=== PATIENT | female | born 1960 | race Caucasian/White ===

== ENCOUNTER 2016-06-05 11:20 | Emergency (ER) | payer MEDICARE, OTHER ==
[~2016-06-05] VITALS: Ht 167.6 cm; Wt 99.8 kg
[2016-06-05] MEDS ORDERED: RT-ALBUTEROL/IPRATROPIUM 3 ML (DUONEB) VIAL ONE (11:25)
[2016-06-05] MEDS ORDERED: RT-ALBUTEROL SULF 2.5 MG/3 ML PRE-MIX VIAL ONE (11:25)
[2016-06-05] MEDS ORDERED: NS IV 1000 ML 1,000 ML IV ONE (11:36)
[2016-06-05 11:58] LABS: BASOPHILS % (AUTO) 0 % (0-10); EOSINOPHILS # (AUTO) 0.3 10^3/uL (0.0-0.3); EOSINOPHILS % (AUTO) 3 % (0-10); LYMPHOCYTES # (AUTO) 1.9 X 10^3 (1.0-4.0); LYMPHOCYTES % (AUTO) 21 % (12-44); MEAN CORPUSCULAR HEMOGLOBIN 29 PG (25-34); MEAN CORPUSCULAR HGB CONC 32 G/DL (32-36); MEAN CORPUSCULAR VOLUME 90 FL (80-99); MEAN PLATELET VOLUME 10.1 FL (7.4-10.4); MONOCYTES # (AUTO) 0.5 X 10^3 (0.0-1.0); MONOCYTES % (AUTO) 5 % (0-12); NEUTROPHILS # (AUTO) 6.3 X 10^3 (1.8-7.8); NEUTROPHILS % (AUTO) 71 % (42-75); PLATELET COUNT 202 10^3/uL (130-400); RED BLOOD COUNT 4.44 10^6/uL (4.35-5.85); RED CELL DISTRIBUTION WIDTH 14.7 % (10.0-14.5)
--- NOTE | 2016-06-05 11:59 | ED Respiratory ---
General Chief Complaint: Respiratory Problems Stated Complaint: SOA Source: patient Exam Limitations: no limitations History of Present Illness Time seen by provider: 11:35 Initial Comments Here with complaint of one month of cough and shortness of breath that has worsened recently over the last 2 days. No report of fever today. Denies nausea or vomiting. She did get albuterol inhaler from her primary care doctor and that has not helped much. Denies nausea or vomiting. Timing/Duration: week, getting worse Severity: moderate Prior Episodes/Possible Cause: occasional episodes Modifying Factors: Improves With Albuterol Inhaler, Worse With Coughing, Worse With Rest Associated Symptoms: No chest pain/soreness, coughNo facial pain, No fever/ chills, nasal congestion shortness of breathNo sinus infection, No sore throat , wheezing Allergies and Home Medications Allergies Coded Allergies: No Known Drug Allergies (Unverified , 05/10/15) Constitutional: see HPINo chills, No fever EENTM: nose congestion see HPI Respiratory: see HPI cough short of breath wheezing Cardiovascular: no symptoms reported Gastrointestinal: no symptoms reportedNo nausea, No vomiting Genitourinary: no symptoms reported Musculoskeletal: no symptoms reported Skin: no symptoms reported All Other Systems Reviewed Negative Unless Noted: Yes Past Sbabftm-Gvzcve-Ocatry Hx Patient Social History Alcohol Use: Denies Use Recreational Drug Use: No Smoking Status: Never a Smoker Surgeries HX Surgeries: Yes Surgeries: Breast, Gallbladder, Hysterectomy, Orthopedic Respiratory Hx Respiratory Disorders: No Cardiovascular Hx Cardiac Disorders: No Neurological Hx Neurological Disorders: No Genitourinary Hx Genitourinary Disorders: No Gastrointestinal Hx Gastrointestinal Disorders: No Musculoskeletal Hx Musculoskeletal Disorders: Yes Musculoskeletal Disorders: Chronic Back Pain Endocrine Hx Endocrine Disorders: No HEENT HX ENT Disorders: No Cancer Hx Cancer: No Psychosocial Hx Psychiatric Problems: Yes Behavioral Health Disorders: Bipolar Reviewed Nursing Assessment Reviewed/Agree w Nursing PMH: Yes Family Medical History Significant Family History: No Pertinent Family Hx Physical Exam Vital Signs Vital Sign - Last 12Hours 06/05/16 06/05/16 11:32 11:40 Temp 97.8 Pulse 122 Resp 22 B/P 143/93 Pulse Ox 96 O2 Delivery Room Air Capillary Refill : General Appearance: WD/WN mild distress HEENT: PERRL/EOMI (coughing) pharyngeal erythema Neck: full range of motion supple Respiratory: no respiratory distress wheezing (diffusely) Cardiovascular: no murmur tachycardia Gastrointestinal: non tender soft Extremities: non-tender normal inspection Neurologic/Psychiatric: alert oriented x 3 Skin: normal color warm/dry Progress/Results/Core Measures Results/Orders Lab Results Laboratory Tests Test 06/05/16 11:50 Range/Units Alanine Aminotransferase (ALT/SGPT) 20 0-55 U/L Albumin 3.8 3.2-4.5 G/DL Alkaline Phosphatase 101 40-136 U/L Anion Gap 8 5-14 MMOL/L Aspartate Amino Transf (AST/SGOT) 19 5-34 U/L BUN/Creatinine Ratio 16 Basophils # (Auto) 0.0 0.0-0.1 10^3/uL Basophils (%) (Auto) 0 0-10 % Blood Urea Nitrogen 15 7-18 MG/DL C-Reactive Protein High Sensitivity 1.87 H 0.00-0.50 MG/DL Calcium Level 10.1 8.5-10.1 MG/DL Carbon Dioxide Level 22 21-32 MMOL/L Chloride Level 111 H 98-107 MMOL/L Creatinine 0.96 0.60-1.30 MG/DL D-Dimer 0.66 H 0.00-0.49 UG/ML Eosinophils # (Auto) 0.3 0.0-0.3 10^3/uL Eosinophils (%) (Auto) 3 0-10 % Estimat Glomerular Filtration Rate 60 Glucose Level 133 H 70-105 MG/DL Hematocrit 40 35-52 % Hemoglobin 12.9 11.5-16.0 G/DL Lymphocytes # (Auto) 1.9 1.0-4.0 X 10^3 Lymphocytes (%) (Auto) 21 12-44 % Magnesium Level 2.1 1.8-2.4 MG/DL Mean Corpuscular Hemoglobin 29 25-34 PG Mean Corpuscular Hemoglobin Concent 32 32-36 G/DL Mean Corpuscular Volume 90 80-99 FL Mean Platelet Volume 10.1 7.4-10.4 FL Monocytes # (Auto) 0.5 0.0-1.0 X 10^3 Monocytes (%) (Auto) 5 0-12 % Neutrophils # (Auto) 6.3 1.8-7.8 X 10^3 Neutrophils (%) (Auto) 71 42-75 % Platelet Count 202 130-400 10^3/uL Potassium Level 3.9 3.6-5.0 MMOL/L Red Blood Count 4.44 4.35-5.85 10^6/uL Red Cell Distribution Width 14.7 H 10.0-14.5 % Sodium Level 141 135-145 MMOL/L Total Bilirubin 0.2 0.1-1.0 MG/DL Total Protein 7.3 6.4-8.2 G/DL Troponin I < 0.30 <0.30 NG/ML White Blood Count 9.0 4.3-11.0 10^3/uL My Orders Orders-ORIANA GILMAN MD Albuterol Pre-Mix Nebs (Rt) (Proventil P (06/05/16 11:25) Albuterol/Ipra Inhalation Soln (Duoneb I (06/05/16 11:25) Cbc With Automated Diff (06/05/16 11:36) Comprehensive Metabolic Panel (06/05/16 11:36) Hs C Reactive Protein (06/05/16 11:36) Fibrin Degradation Products (06/05/16 11:36) Magnesium (06/05/16 11:36) Troponin I (06/05/16 11:36) Chest 1 View, Ap/Pa Only (06/05/16 11:36) Saline Lock/Iv-Start (06/05/16 11:36) Ns Iv 1000 Ml (Sodium Chloride 0.9%) (06/05/16 11:36) Ekg Tracing (06/05/16 11:36) Monitor-Rhythm Ecg Trace Only (06/05/16 11:36) Ct Angio Chest W (06/05/16 12:48) Iohexol Injection (Omnipaque 350 Mg/Ml 1 (06/05/16 13:00) Ns (Ivpb) (Sodium Chloride 0.9% Ivpb Bag (06/05/16 13:00) Methylprednisolone Sod Succ (Solu-Medrol (06/05/16 14:03) Rt Request For Service (06/05/16 14:38) Medications Given in ED Current Medications Medications Dose Ordered Sig/Kanchan Route Start Time Stop Time Status Last Admin Dose Admin Albuterol Sulfate 2.5 mg STK-MED ONCE .ROUTE 06/05/16 11:25 06/05/16 11:33 DC 06/05/16 11:32 2.5 MG Albuterol/ Ipratropium 3 ml 3 ml STK-MED ONCE .ROUTE 06/05/16 11:25 06/05/16 11:33 DC 06/05/16 11:32 3 ML Iohexol 125 ml ONCE ONCE IV 06/05/16 13:00 06/05/16 13:01 DC 06/05/16 13:10 125 ML Sodium Chloride 100 ml ONCE ONCE IV 06/05/16 13:00 06/05/16 13:01 DC 06/05/16 13:11 80 ML Sodium Chloride 1,000 ml @ 0 mls/hr Q0M ONCE IV 06/05/16 11:36 06/05/16 11:40 DC 06/05/16 12:00 1,000 MLS/HR Vital Signs/I&O Vital Sign - Last 12Hours 06/05/16 06/05/16 11:32 11:40 Temp 97.8 Pulse 122 Resp 22 B/P 143/93 Pulse Ox 96 94 O2 Delivery Room Air Room Air Progress Note : Progress Note Seen and evaluated. IV, labs, chest x-ray, normal saline 1 L bolus, DuoNeb and albuterol treatment ordered. D-dimer elevated. CT angiogram chest ordered. Results below. Patient did not gain much benefit from breathing treatments. Solu-Medrol 125 mg IV initiated. We will continue outpatient therapy with steroids and cough medicine. Patient will get aerobica therapy teaching by RT and will continue that outpatient. This is for mild global cord dysfunction and questionable tracheomalacia on CT. Patient will need further follow-up with PCP. Chart to primary care provider. Discharged home with return precautions. Patient verbalize understanding instructions and agreement with plan. Diagnostic Imaging Diagonstic Imaging: Xray Plain Films/CT/US/NM/MRI: chest Comments NAME: JOSR STEIN [facility] REC#: [id number] PT STATUS: REG ER : 1960 PHYSICIAN: ORIANA GILMAN MD ADMIT DATE: 06/05/16/ER Signed Date of Exam: 06/05/16 CHEST 1 VIEW, AP/PA ONLY INDICATION: Difficulty breathing, cough. FINDINGS: The lungs are clear. The heart and vessels normal. There is no effusion or pneumothorax. IMPRESSION: Unremarkable frontal chest. Dictated by: Dictated on workstation # [id number] Dict: 06/05/16 1219 Trans: 06/05/16 1356 SHRELY [id number] Interpreted by: BROCK MELISSA Electronically signed by:BROCK MELISSA 06/05/16 1358 Reviewed: Reviewed by Me Diagonstic Imaging: CT Plain Films/CT/US/NM/MRI: chest Comments NAME: JOSR STEIN REC#: [id number] PT STATUS: REG ER : 1960 PHYSICIAN: ORIANA GILMAN MD ADMIT DATE: 06/05/16/ER Draft Date of Exam:06/05/16 CT ANGIO CHEST W PROCEDURE: CT angiography of the chest with contrast. TECHNIQUE: Multiple contiguous axial images were obtained through the chest after uneventful bolus administration of intravenous contrast. Reconstructed CTA MIP acquisitions were also performed. INDICATION: Cough. Shortness of breath. FINDINGS: There is respiratory motion artifact seen on this exam and component of beam hardening artifacts from dense incoming contrast through the SVC. There is no definite pulmonary embolism, particularly involving the central pulmonary arteries. Particularly the right upper lobe branches are not well evaluated with overlapping artifacts seen. There is no aortic dissection. The heart size is at the upper limits of normal. There is no pericardial or pleural effusion. The lungs demonstrate motion artifact with no definite consolidation, mass or suspicious nodule seen. There is significant decrease of the AP dimension of the trachea more than 50% of the normal AP dimension on the expiratory phase suggestive of tracheomalacia. Sections in the upper abdomen demonstrate cholecystectomy clips. The osseous structures appear grossly unremarkable. IMPRESSION: 1. There are motion artifacts due to patient's inability to hold her breath for the exam and some beam hardening artifacts from incoming dense contrast in the SVC resulting in limited evaluation particularly of the right upper lobe lobar and segmental branches. The other lobar and main segmental branches and the pulmonary trunk demonstrate no PE. 2. Tracheomalacia. Dictated on workstation # [id number] Dict: 06/05/16 1410 Trans: 06/05/16 1429 YODIT [id number] Interpreted by: SATURNINO THAYER MD Electronically signed by: Departure Impression Impression: Primary Impression: Bronchitis Disposition: 01 HOME, SELF-CARE Condition: Stable Departure-Patient Inst. Decision time for Depature: 14:45 Referrals: SAW SALINAS DO (PCP/Family) Primary Care Physician Patient Instructions: Acute Bronchitis, Adult (DC) Add. Discharge Instructions: All discharge instructions reviewed with patient and/or family. Voiced understanding. Take medications as directed. Follow-up with your Dr. in a few days for recheck. Return for worse pain, fever, vomiting, weakness, breathing problems or other concerns as needed. Use breathing device as instructed several times daily. Scripts Promethazine HCl/Codeine (Prometh-Codein 6.25-10 mg/5 ml)5 Ml Syrup5 Ml PO Q6H # 80 ML Ref 0 Prov:ORIANA GILMAN MD 06/05/16 Prednisone 20 Mg Tab40 Mg PO DAILY #14 TAB Prov:ORIANA GILMAN MD 06/05/16 Copy Copies To 1: SAW SALINAS TIMOTHY D MD Jun 05, 2016 11:59
[2016-06-05 12:18] LABS: ALANINE AMINOTRANSFERASE 20 U/L (0-55); ALBUMIN 3.8 G/DL (3.2-4.5); ANION GAP 8 MMOL/L (5-14); ASPARTATE AMINO TRANSFERASE 19 U/L (5-34); BILIRUBIN,TOTAL 0.2 MG/DL (0.1-1.0); BLOOD UREA NITROGEN 15 MG/DL (7-18); BUN/CREATININE RATIO 16; CALCIUM 10.1 MG/DL (8.5-10.1); CARBON DIOXIDE 22 MMOL/L (21-32); CHLORIDE 111 MMOL/L (98-107); CREATININE SERUM 0.96 MG/DL (0.60-1.30); GFR ESTIMATED 60; GLUCOSE 133 MG/DL (70-105); MAGNESIUM 2.1 MG/DL (1.8-2.4); POTASSIUM 3.9 MMOL/L (3.6-5.0); SODIUM 141 MMOL/L (135-145); TOTAL PROTEIN 7.3 G/DL (6.4-8.2); hs C REACTIVE PROTEIN 1.87 MG/DL (0.00-0.50)
[2016-06-05 12:24] LABS: TROPONIN I < 0.30 NG/ML (<0.30)
--- NOTE | 2016-06-05 12:28 | Diagnostic Imaging Report ---
INDICATION: Difficulty breathing, cough. FINDINGS: The lungs are clear. The heart and vessels normal. There is no effusion or pneumothorax. IMPRESSION: Unremarkable frontal chest. Dictated by: Dictated on workstation # [id number]
[2016-06-05] MEDS ORDERED: IOHEXOL 350 MG/ML 150 ML (OMNIPAQUE 350) VIAL IV ONE (13:00)
[2016-06-05] MEDS ORDERED: NS 100 ML (IVPB) BAG IV ONE (13:00)
[2016-06-05] MEDS ORDERED: methylPREDNISolone 125 MG (Solu-MEDROL) VIAL IV STA (14:03)
--- NOTE | 2016-06-05 14:29 | Diagnostic Imaging Report ---
PROCEDURE: CT angiography of the chest with contrast. TECHNIQUE: Multiple contiguous axial images were obtained through the chest after uneventful bolus administration of intravenous contrast. Reconstructed CTA MIP acquisitions were also performed. INDICATION: Cough. Shortness of breath. FINDINGS: There is respiratory motion artifact seen on this exam and component of beam hardening artifacts from dense incoming contrast through the SVC. There is no definite pulmonary embolism, particularly involving the central pulmonary arteries. Particularly the right upper lobe branches are not well evaluated with overlapping artifacts seen. There is no aortic dissection. The heart size is at the upper limits of normal. There is no pericardial or pleural effusion. The lungs demonstrate motion artifact with no definite consolidation, mass or suspicious nodule seen. There is significant decrease of the AP dimension of the trachea more than 50% of the normal AP dimension on the expiratory phase suggestive of mild tracheomalacia. Sections in the upper abdomen demonstrate cholecystectomy clips. The osseous structures appear grossly unremarkable. IMPRESSION: 1. There are motion artifacts due to patient's inability to hold her breath for the exam and some beam hardening artifacts from incoming dense contrast in the SVC resulting in limited evaluation particularly of the right upper lobe lobar and segmental branches. The other lobar and main segmental branches and the pulmonary trunk demonstrate no PE. 2. Mild tracheomalacia. Dictated by: Dictated on workstation # [id number]
[2016-06-05] MEDS ORDERED: PROM5SYR PO (14:48)
[2016-06-05] MEDS ORDERED: PRD20T PO (14:48)
[2016-06-05 15:13] VITALS: BP 137/93
[2016-07-03] MEDS ORDERED: PRD20T PO (11:10)
[2016-07-03] MEDS ORDERED: AZIT250T5 PO (11:10)
== END 2016-06-05 15:13 | disposition home or self-care (01) ==
LOC: EDUNIT# 11:20 → ER 11:22
DX: J20.9 Acute bronchitis, unspecified (principal); J39.8 Other specified diseases of upper respiratory tract
CPT/HCPCS: 36415; 71010; 71275; 80053; 83735; 84484; 85025; 85379; 86141; 93005; 93041; 94640; 96374

== ENCOUNTER 2016-06-22 10:15 | Emergency (ER) | payer MEDICARE, OTHER ==
[~2016-06-22] VITALS: Ht 162.6 cm; Wt 104.3 kg
[~2016-06-22 10:15] MED LIST: PRD20T PO; PROM5SYR PO
[2016-06-22] MEDS ORDERED: RT-ALBUTEROL/IPRATROPIUM 3 ML (DUONEB) VIAL INH ONE (10:30)
--- NOTE | 2016-06-22 10:43 | ED Respiratory ---
General Chief Complaint: Respiratory Problems Stated Complaint: SOA Source: patient Exam Limitations: no limitations History of Present Illness Time seen by provider: 10:41 Initial Comments The patient is a 55-year-old white female who was here earlier this month (06/05) with similar complaints. At that time she had had one month of symptoms. She continues to have wheezing tightness and shortness of breath. Allergies and Home Medications Allergies Coded Allergies: No Known Drug Allergies (Unverified , 05/10/15) Home Medications Prednisone 20 Mg Tab #14 40 MG PO DAILY Prescribed by: ORIANA GILMAN on 06/05/16 1448 Promethazine HCl/Codeine 5 Ml Syrup #80 5 ML PO Q6H Prescribed by: ORIANA GILMAN on 06/05/16 1448 Constitutional: see HPI EENTM: no symptoms reported Respiratory: see HPI cough dyspnea on exertion short of breath wheezing Cardiovascular: no symptoms reported Gastrointestinal: no symptoms reported Genitourinary: no symptoms reported Musculoskeletal: no symptoms reported Skin: no symptoms reported Psychiatric/Neurological: No Symptoms Reported Hematologic/Lymphatic: No Symptoms Reported Immunological/Allergic: no symptoms reported Past Vepmoer-Rejunc-Sbzwsa Hx Patient Social History Recent Foreign Travel: No Contact w/Someone Who Travel: No Recent Hopitalizations: No Seasonal Allergies Seasonal Allergies: No Surgeries HX Surgeries: Yes Surgeries: Breast, Gallbladder, Hysterectomy, Orthopedic Respiratory Hx Respiratory Disorders: No Cardiovascular Hx Cardiac Disorders: No Cardiac Disorders: Valvular Heart Disease Neurological Hx Neurological Disorders: No Neurological Disorders: Headaches /Migraines Genitourinary Hx Genitourinary Disorders: No Gastrointestinal Hx Gastrointestinal Disorders: No Musculoskeletal Hx Musculoskeletal Disorders: Yes Musculoskeletal Disorders: Chronic Back Pain Endocrine Hx Endocrine Disorders: No HEENT HX ENT Disorders: No Cancer Hx Cancer: No Psychosocial Hx Psychiatric Problems: Yes Behavioral Health Disorders: Bipolar Integumentary HX Skin/Integumentary Disorder: No Blood Transfusions Hx Blood Disorders: No Family Medical History Significant Family History: No Pertinent Family Hx Physical Exam Vital Signs Vital Sign - Last 12Hours 06/22/16 10:36 Pulse Ox 94 O2 Delivery Room Air Capillary Refill : General Appearance: moderate distress Eyes: Bilateral Eye Normal Inspection Respiratory: decreased breath sounds accessory muscle use rhonchi wheezing expiration inspiration Cardiovascular: tachycardia Gastrointestinal: normal bowel sounds non tender soft no organomegaly no pulsatile mass Skin: normal color warm/dry cyanosis cool diaphoresis damp Lymphatic: no adenopathy axilla node tender (R) axilla node tender (L) inguinal node tender (R) inguinal node tender (L) Progress/Results/Core Measures Results/Orders Lab Results Laboratory Tests Test 06/22/16 10:30 Range/Units Alanine Aminotransferase (ALT/SGPT) 25 0-55 U/L Albumin 3.3 3.2-4.5 G/DL Alkaline Phosphatase 85 40-136 U/L Anion Gap 11 5-14 MMOL/L Aspartate Amino Transf (AST/SGOT) 21 5-34 U/L BUN/Creatinine Ratio 18 Basophils # (Auto) 0.0 0.0-0.1 10^3/uL Basophils (%) (Auto) 0 0-10 % Blood Urea Nitrogen 15 7-18 MG/DL Calcium Level 9.5 8.5-10.1 MG/DL Carbon Dioxide Level 20 L 21-32 MMOL/L Chloride Level 113 H 98-107 MMOL/L Creatinine 0.85 0.60-1.30 MG/DL Eosinophils # (Auto) 0.4 H 0.0-0.3 10^3/uL Eosinophils (%) (Auto) 5 0-10 % Estimat Glomerular Filtration Rate > 60 Glucose Level 92 70-105 MG/DL Hematocrit 35 35-52 % Hemoglobin 11.4 L 11.5-16.0 G/DL Lymphocytes # (Auto) 1.7 1.0-4.0 X 10^3 Lymphocytes (%) (Auto) 24 12-44 % Mean Corpuscular Hemoglobin 30 25-34 PG Mean Corpuscular Hemoglobin Concent 33 32-36 G/DL Mean Corpuscular Volume 91 80-99 FL Mean Platelet Volume 10.3 7.4-10.4 FL Monocytes # (Auto) 0.3 0.0-1.0 X 10^3 Monocytes (%) (Auto) 5 0-12 % Neutrophils # (Auto) 4.9 1.8-7.8 X 10^3 Neutrophils (%) (Auto) 67 42-75 % Platelet Count 169 130-400 10^3/uL Potassium Level 3.6 3.6-5.0 MMOL/L Red Blood Count 3.87 L 4.35-5.85 10^6/uL Red Cell Distribution Width 14.7 H 10.0-14.5 % Sodium Level 144 135-145 MMOL/L Total Bilirubin 0.1 0.1-1.0 MG/DL Total Protein 5.9 L 6.4-8.2 G/DL White Blood Count 7.3 4.3-11.0 10^3/uL My Orders Orders-TATYANA SANDERS MD Cbc With Automated Diff (06/22/16 10:20) Comprehensive Metabolic Panel (06/22/16 10:20) Chest 1 View, Ap/Pa Only (06/22/16 10:20) Albuterol/Ipra Inhalation Soln (Duoneb I (06/22/16 10:30) Svn Sm Volume Nebulizer Rt-Rfs (06/22/16 10:20) Methylprednisolone Sod Succ (Solu-Medrol (06/22/16 12:15) Medications Given in ED Current Medications Medications Dose Ordered Sig/Kanchan Route Start Time Stop Time Status Last Admin Dose Admin Albuterol/ Ipratropium 3 ml ONCE ONCE INH 06/22/16 10:30 06/22/16 10:31 DC 06/22/16 10:36 3 ML Methylprednisolone Sodium Succinate 125 mg ONCE ONCE IVP 06/22/16 12:15 06/22/16 12:16 DC 06/22/16 12:12 125 MG Vital Signs/I&O Vital Sign - Last 12Hours 06/22/16 10:36 Pulse Ox 94 O2 Delivery Room Air Departure Impression Impression: Primary Impression: Obstructive airway disease Disposition: 01 HOME, SELF-CARE Condition: Improved Departure-Patient Inst. Decision time for Depature: 12:32 Referrals: [facility] (PCP/Family) Primary Care Physician Patient Instructions: Asthma, Adult (DC) Add. Discharge Instructions: All discharge instructions reviewed with patient and/or family. Voiced understanding. Take prednisone as directed Keep Friday appointment. This is imperative. Scripts Prednisone 20 Mg Tab40 Mg PO DAILY #10 TAB 2 tabs each a.m. Prov:TATYANA SANDERS MD 06/22/16 TATYANA SANDERS MD Jun 22, 2016 10:42
[2016-06-22 10:48] LABS: BASOPHILS % (AUTO) 0 % (0-10); EOSINOPHILS # (AUTO) 0.4 10^3/uL (0.0-0.3); EOSINOPHILS % (AUTO) 5 % (0-10); LYMPHOCYTES # (AUTO) 1.7 X 10^3 (1.0-4.0); LYMPHOCYTES % (AUTO) 24 % (12-44); MEAN CORPUSCULAR HEMOGLOBIN 30 PG (25-34); MEAN CORPUSCULAR HGB CONC 33 G/DL (32-36); MEAN CORPUSCULAR VOLUME 91 FL (80-99); MEAN PLATELET VOLUME 10.3 FL (7.4-10.4); MONOCYTES # (AUTO) 0.3 X 10^3 (0.0-1.0); MONOCYTES % (AUTO) 5 % (0-12); NEUTROPHILS # (AUTO) 4.9 X 10^3 (1.8-7.8); NEUTROPHILS % (AUTO) 67 % (42-75); PLATELET COUNT 169 10^3/uL (130-400); RED BLOOD COUNT 3.87 10^6/uL (4.35-5.85); RED CELL DISTRIBUTION WIDTH 14.7 % (10.0-14.5); WHITE BLOOD COUNT 7.3 10^3/uL (4.3-11.0)
[2016-06-22 11:04] LABS: ALANINE AMINOTRANSFERASE 25 U/L (0-55); ALBUMIN 3.3 G/DL (3.2-4.5); ANION GAP 11 MMOL/L (5-14); ASPARTATE AMINO TRANSFERASE 21 U/L (5-34); BILIRUBIN,TOTAL 0.1 MG/DL (0.1-1.0); BLOOD UREA NITROGEN 15 MG/DL (7-18); BUN/CREATININE RATIO 18; CALCIUM 9.5 MG/DL (8.5-10.1); CARBON DIOXIDE 20 MMOL/L (21-32); CHLORIDE 113 MMOL/L (98-107); CREATININE SERUM 0.85 MG/DL (0.60-1.30); GFR ESTIMATED > 60; GLUCOSE 92 MG/DL (70-105); POTASSIUM 3.6 MMOL/L (3.6-5.0); SODIUM 144 MMOL/L (135-145); TOTAL PROTEIN 5.9 G/DL (6.4-8.2)
--- NOTE | 2016-06-22 11:11 | Diagnostic Imaging Report ---
INDICATION: Cough, short of air Upright portable chest shows normal heart size and vascularity. The lungs are clear. There is no effusion or pneumothorax. IMPRESSION: Normal portable chest. There is no change from 06/05/16. Dictated by: Dictated on workstation # [id number]
[2016-06-22] MEDS ORDERED: methylPREDNISolone 125 MG (Solu-MEDROL) VIAL IVP ONE (12:15)
[2016-06-22] MEDS ORDERED: PRD20T PO (12:36)
[2016-06-22 12:40] VITALS: BP 145/70
[2016-07-03] MEDS ORDERED: AZIT250T5 PO (11:10)
[2016-07-03] MEDS ORDERED: PRD20T PO (11:10)
== END 2016-06-22 12:40 | disposition home or self-care (01) ==
LOC: EDUNIT# 10:15 → ER 10:16
DX: J44.9 Chronic obstructive pulmonary disease, unspecified (principal)
CPT/HCPCS: 36415; 71010; 80053; 85025; 94640; 96374

== ENCOUNTER 2016-07-02 11:16 | Observation (INO) | payer MEDICARE, OTHER ==
[~2016-07-02] VITALS: Ht 167.6 cm; Wt 99.8 kg
[2016-07-02 12:03] LABS: BASOPHILS % (AUTO) 0 % (0-10); EOSINOPHILS # (AUTO) 0.8 10^3/uL (0.0-0.3); EOSINOPHILS % (AUTO) 11 % (0-10); LYMPHOCYTES # (AUTO) 1.5 X 10^3 (1.0-4.0); LYMPHOCYTES % (AUTO) 20 % (12-44); MEAN CORPUSCULAR HEMOGLOBIN 29 PG (25-34); MEAN CORPUSCULAR HGB CONC 32 G/DL (32-36); MEAN CORPUSCULAR VOLUME 90 FL (80-99); MEAN PLATELET VOLUME 11.3 FL (7.4-10.4); MONOCYTES # (AUTO) 0.5 X 10^3 (0.0-1.0); MONOCYTES % (AUTO) 6 % (0-12); NEUTROPHILS # (AUTO) 4.7 X 10^3 (1.8-7.8); NEUTROPHILS % (AUTO) 62 % (42-75); PLATELET COUNT 255 10^3/uL (130-400); RED BLOOD COUNT 4.35 10^6/uL (4.35-5.85); RED CELL DISTRIBUTION WIDTH 14.9 % (10.0-14.5); WHITE BLOOD COUNT 7.6 10^3/uL (4.3-11.0)
[2016-07-02] MEDS ORDERED: ZOLP10TA PO (12:09)
[2016-07-02] MEDS ORDERED: RT-ALBUTEROL SULF 2.5 MG/3 ML PRE-MIX VIAL INH SCH (12:15)
[2016-07-02] MEDS ORDERED: RT-ALBUTEROL/IPRATROPIUM 3 ML (DUONEB) VIAL INH ONE (12:15)
[2016-07-02] MEDS ORDERED: morphine INJ 10 MG/ML 1ML (SYR OR VIAL) IVP ONE (12:15)
[2016-07-02] MEDS ORDERED: methylPREDNISolone 125 MG (Solu-MEDROL) VIAL IVP ONE (12:15)
[2016-07-02 12:22] LABS: ALANINE AMINOTRANSFERASE 23 U/L (0-55); ALBUMIN 3.7 G/DL (3.2-4.5); ANION GAP 7 MMOL/L (5-14); ASPARTATE AMINO TRANSFERASE 27 U/L (5-34); BILIRUBIN,TOTAL 0.2 MG/DL (0.1-1.0); BLOOD UREA NITROGEN 14 MG/DL (7-18); BUN/CREATININE RATIO 17; CALCIUM 9.7 MG/DL (8.5-10.1); CARBON DIOXIDE 22 MMOL/L (21-32); CHLORIDE 112 MMOL/L (98-107); CREATININE SERUM 0.83 MG/DL (0.60-1.30); GLUCOSE 99 MG/DL (70-105); MAGNESIUM 2.4 MG/DL (1.8-2.4); SODIUM 141 MMOL/L (135-145); TOTAL PROTEIN 6.9 G/DL (6.4-8.2)
[2016-07-02 12:23] LABS: POTASSIUM 4.8 MMOL/L (3.6-5.0)
[2016-07-02 12:28] LABS: TROPONIN I < 0.30 NG/ML (<0.30)
[2016-07-02 12:29] LABS: GFR ESTIMATED > 60
--- NOTE | 2016-07-02 12:31 | ED Cough/URI ---
General Chief Complaint: Respiratory Problems Stated Complaint: COUGH/CONGESTION SOA PALPITATIONS FINGERS TINGLING Nursing Triage Note: PT CO OF [facility] HAS BEEN TO ED X3 THIS YEAR. PT WHEEZING Source: patient Exam Limitations: no limitations History of Present Illness Time seen by provider: 12:00 Initial Comments To ER with reports of wheezing, cough that is nonproductive and shortness of breath as well as palpitations and tingling in her anger tips bilaterally. The symptoms began this morning. She does not have COPD. She is recently been treated for bronchitis and was on steroids which she finished one week ago. She is a lifelong nonsmoker. O2 saturation is 93% on room air on arrival Timing/Duration: this morning, getting worse Severity/Quality: dry cough Prior Episodes/Possible Cause: occasional episodes Associated Symptoms: denies symptoms Allergies and Home Medications Allergies Coded Allergies: No Known Drug Allergies (Unverified , 05/10/15) Home Medications Albuterol Sulfate 2.5 Mg/0.5 Ml Vial.neb #25 2.5 MG IH Q4H PRN PRN SHORTNESS OF BREATH Prescribed by: KANDI ARCHER on 07/02/16 1328 Prednisone 20 Mg Tab #14 40 MG PO DAILY Prescribed by: ORIANA GILMAN on 06/05/16 1448 Prednisone 20 Mg Tab #10 40 MG PO DAILY 2 tabs each a.m. Prescribed by: TATYANA SANDERS on 06/22/16 1236 Prednisone 5 Mg Tablet #78 60 MG PO UD 60 mg on day 1 then reduced by one tablet daily until done Prescribed by: KANDI ARCHER on 07/02/16 1233 Promethazine HCl/Codeine 5 Ml Syrup #80 5 ML PO Q6H Prescribed by: ORIANA GILMAN on 06/05/16 1448 Zolpidem Tartrate 10 Mg Tablet 10 MG PO HS (Reported) Constitutional: see HPI EENTM: see HPI Respiratory: see HPI cough Cardiovascular: no symptoms reported Genitourinary: no symptoms reported Musculoskeletal: no symptoms reported Skin: no symptoms reported Psychiatric/Neurological: No Symptoms Reported Past Vyqzfly-Czvxqc-Yemxxg Hx Patient Social History Recent Foreign Travel: No Contact w/Someone Who Travel: No Recent Infectious Disease Expo: No Recent Hopitalizations: No Seasonal Allergies Seasonal Allergies: No Surgeries HX Surgeries: Yes Surgeries: Breast, Gallbladder, Hysterectomy, Orthopedic Respiratory Hx Respiratory Disorders: No Cardiovascular Hx Cardiac Disorders: No Cardiac Disorders: Valvular Heart Disease Neurological Hx Neurological Disorders: No Neurological Disorders: Headaches /Migraines Genitourinary Hx Genitourinary Disorders: No Gastrointestinal Hx Gastrointestinal Disorders: No Musculoskeletal Hx Musculoskeletal Disorders: Yes Musculoskeletal Disorders: Chronic Back Pain Endocrine Hx Endocrine Disorders: No HEENT HX ENT Disorders: No Cancer Hx Cancer: No Psychosocial Hx Psychiatric Problems: Yes Behavioral Health Disorders: Bipolar Integumentary HX Skin/Integumentary Disorder: No Blood Transfusions Hx Blood Disorders: No Family Medical History Significant Family History: No Pertinent Family Hx Physical Exam Vital Signs Vital Sign - Last 12Hours 07/02/16 11:35 Temp 97.8 Pulse 97 Resp 24 B/P 115/87 Pulse Ox 93 O2 Delivery Room Air Capillary Refill : Less Than 3 Seconds General Appearance: WD/WN no apparent distress HEENT: PERRL/EOMI normal ENT inspection Neck: non-tender full range of motion Respiratory: no respiratory distress no accessory muscle use decreased breath sounds wheezing Cardiovascular: regular rate, rhythm no murmur Gastrointestinal: normal bowel sounds non tender soft Extremities: normal range of motion non-tender Neurologic/Psychiatric: alert normal mood/affect oriented x 3 Skin: normal color warm/dry Progress/Results/Core Measures Results/Orders Lab Results Laboratory Tests Test 07/02/16 11:48 07/02/16 13:42 07/02/16 14:31 Range/Units Alanine Aminotransferase (ALT/SGPT) 23 0-55 U/L Albumin 3.7 3.2-4.5 G/DL Alkaline Phosphatase 85 40-136 U/L Anion Gap 7 5-14 MMOL/L Aspartate Amino Transf (AST/SGOT) 27 5-34 U/L BUN/Creatinine Ratio 17 Basophils # (Auto) 0.0 0.0-0.1 10^3/uL Basophils (%) (Auto) 0 0-10 % Blood Urea Nitrogen 14 7-18 MG/DL Calcium Level 9.7 8.5-10.1 MG/DL Carbon Dioxide Level 22 21-32 MMOL/L Chloride Level 112 H 98-107 MMOL/L Creatinine 0.83 0.60-1.30 MG/DL Eosinophils # (Auto) 0.8 H 0.0-0.3 10^3/uL Eosinophils (%) (Auto) 11 H 0-10 % Estimat Glomerular Filtration Rate > 60 Glucose Level 99 70-105 MG/DL Hematocrit 39 35-52 % Hemoglobin 12.6 11.5-16.0 G/DL Lymphocytes # (Auto) 1.5 1.0-4.0 X 10^3 Lymphocytes (%) (Auto) 20 12-44 % Magnesium Level 2.4 1.8-2.4 MG/DL Mean Corpuscular Hemoglobin 29 25-34 PG Mean Corpuscular Hemoglobin Concent 32 32-36 G/DL Mean Corpuscular Volume 90 80-99 FL Mean Platelet Volume 11.3 H 7.4-10.4 FL Monocytes # (Auto) 0.5 0.0-1.0 X 10^3 Monocytes (%) (Auto) 6 0-12 % Neutrophils # (Auto) 4.7 1.8-7.8 X 10^3 Neutrophils (%) (Auto) 62 42-75 % Platelet Count 255 130-400 10^3/uL Potassium Level 4.8 3.6-5.0 MMOL/L Red Blood Count 4.35 4.35-5.85 10^6/uL Red Cell Distribution Width 14.9 H 10.0-14.5 % Sodium Level 141 135-145 MMOL/L Total Bilirubin 0.2 0.1-1.0 MG/DL Total Protein 6.9 6.4-8.2 G/DL Troponin I < 0.30 <0.30 NG/ML White Blood Count 7.6 4.3-11.0 10^3/uL Beto Test YES-POS Arterial Blood Base Excess -3.6 L -2.5-2.5 MMOL/L Arterial Blood HCO3 22 L 23-27 MMOL/L Arterial Blood Oxygen Saturation 95 94-100 % Arterial Blood Partial Pressure CO2 44 35-45 MMHG Arterial Blood Partial Pressure O2 73 L 79-93 MMHG Arterial Blood Total CO2 23.8 21.0-31.0 MMOL/L Arterial Blood pH 7.32 *L 7.37-7.43 Blood Gas Inspired Oxygen ROOM AIR Blood Gas Patient Temperature 98.3 Blood Gas Puncture Site LT RADIAL Blood Gas Ventilator Setting NO B-Type Natriuretic Peptide < 10.0 <100.0 PG/ML D-Dimer 0.52 H 0.00-0.49 UG/ML My Orders Orders-KANDI ARCHER SKIVER HAND Cbc With Automated Diff (07/02/16 11:57) Saline Lock/Iv-Start (07/02/16 11:57) Chest Pa/Lat (2 View) (07/02/16 11:57) Troponin I (07/02/16 11:57) Ekg Tracing (07/02/16 11:57) Comprehensive Metabolic Panel (07/02/16 11:57) Magnesium (07/02/16 11:57) Methylprednisolone Sod Succ (Solu-Medrol (07/02/16 12:15) Albuterol/Ipra Inhalation Soln (Duoneb I (07/02/16 12:15) Albuterol Pre-Mix Nebs (Rt) (Proventil P (07/02/16 12:15) Svn Sm Volume Nebulizer Rt-Rfs (07/02/16 12:02) Svn Sm Volume Nebulizer Rt-Rfs (07/02/16 12:02) Morphine Injection (Morphine Injection (07/02/16 12:15) Influenza A And B Antigens (07/02/16 13:42) Arterial Blood Gas (07/02/16 13:42) BNP (07/02/16 13:44) Fibrin Degradation Products (07/02/16 13:44) Ct Angio Chest W (07/02/16 13:49) Iohexol Injection (Omnipaque 350 Mg/Ml 1 (07/02/16 14:00) Ns (Ivpb) (Sodium Chloride 0.9% Ivpb Bag (07/02/16 14:00) Medications Given in ED Current Medications Medications Dose Ordered Sig/Kanchan Route Start Time Stop Time Status Last Admin Dose Admin Albuterol/ Ipratropium 3 ml ONCE ONCE INH 07/02/16 12:15 07/02/16 12:16 DC 07/02/16 12:22 3 ML Iohexol 125 ml ONCE ONCE IV 07/02/16 14:00 07/02/16 14:14 DC 07/02/16 14:38 125 ML Methylprednisolone Sodium Succinate 125 mg ONCE ONCE IVP 07/02/16 12:15 07/02/16 12:16 DC 07/02/16 12:24 125 MG Morphine Sulfate 2-4mg IV x1 PRN cough ONCE ONCE IVP 07/02/16 12:15 07/02/16 12:16 DC 07/02/16 12:24 4 MG Sodium Chloride 100 ml ONCE ONCE IV 07/02/16 14:00 07/02/16 14:14 DC 07/02/16 14:38 80 ML Vital Signs/I&O Vital Sign - Last 12Hours 07/02/16 07/02/16 07/02/16 11:35 12:26 12:30 Temp 97.8 Pulse 97 Resp 24 B/P 115/87 Pulse Ox 93 93 95 O2 Delivery Room Air Room Air Blood Pressure Mean: 96 Diagnostic Imaging Diagonstic Imaging: Xray Plain Films/CT/US/NM/MRI: chest Comments NAME: JOSR STEIN [facility] REC#: [id number] PT STATUS: REG ER : 1960 PHYSICIAN: KANDI ARCHER APRN ADMIT DATE: 07/02/16/ER Draft Date of Exam:07/02/16 CHEST PA/LAT (2 VIEW) INDICATION: Shortness of breath and wheezing. PA and lateral chest obtained at 12:24 p.m. and compared to 06/22/2016. FINDINGS: Heart and mediastinal silhouette are normal in appearance. The lungs are clear. There is no pneumothorax or pleural fluid. IMPRESSION: Negative chest. Dictated on workstation # [id number] Dict: 07/02/16 1217 Trans: 07/02/16 1228 KB [id number] Interpreted by: GABE ROMANO MD Electronically signed by: Departure Communication Time/Spoke to Admitting Phy: 15:48 Communication I discussed the case with Dr. Newton. We will admit the patient for supple oxygen, IV steroids and oral antibiotics. Progress Notes 1318-She remains wheezy after an hour long breathing treatment though it is improved slightly. Oxygen saturation however is now at 89% on room air. Pt does not have home O2 or home nebulizer. Impression Impression: Primary Impression: Bronchitis Additional Impression: Wheezing Disposition: ADMITTED INPATIENT Condition: Stable Decision to Admit Reason: Admit from ER (General) Decision to Admit/Date: Jul 02, 2016 Time/Decision to Admit Time: 13:35 Departure-Patient Inst. Decision time for Depature: 12:31 Referrals: [facility] (PCP/Family) Primary Care Physician Patient Instructions: NO INSTRUCTIONS GIVEN Add. Discharge Instructions: 1. You to follow-up with your primary care physician to schedule a pulmonary function test 2. Steroids as directed 3. All discharge instructions reviewed with patient and/or family. Voiced understanding. Scripts Albuterol Sulfate 2.5 Mg/0.5 Ml Vial.neb2.5 Mg IH Q4H PRN SHORTNESS OF BREATH # 25 EACH Prov:KANDI ARCHER APRN 07/02/16 Prednisone 5 Mg [id number] Mg PO UD #78 TAB 60 mg on day 1 then reduced by one tablet daily until done Prov:KANDI ARCHER APRN 07/02/16 Copy Copies To 1: SAW SALINAS PETER J APRN Jul 02, 2016 12:31
[2016-07-02] MEDS ORDERED: PRED5TAB PO (12:33)
[2016-07-02] MEDS ORDERED: ALB0.5V IH (13:28)
[2016-07-02 13:48] LABS: ABG BASE EXCESS -3.6 MMOL/L (-2.5-2.5); ABG HCO3 22 MMOL/L (23-27); ABG OXYGEN SATURATION 95 % (94-100); ABG PCO2 44 MMHG (35-45); ABG PO2 73 MMHG (79-93); ABG TCO2 23.8 MMOL/L (21.0-31.0)
[2016-07-02 13:49] LABS: ABG PH 7.32 (7.37-7.43); ALLENS TEST YES-POS; PATIENT TEMP 98.3
[2016-07-02] MEDS ORDERED: IOHEXOL 350 MG/ML 150 ML (OMNIPAQUE 350) VIAL IV ONE (14:00)
[2016-07-02] MEDS ORDERED: NS 100 ML (IVPB) BAG IV ONE (14:00)
--- NOTE | 2016-07-02 15:34 | Diagnostic Imaging Report ---
PROCEDURE: CT angiography of the chest with contrast. TECHNIQUE: Multiple contiguous axial images were obtained through the chest after uneventful bolus administration of intravenous contrast. Reconstructed CTA MIP acquisitions were also performed. INDICATION: Wheezing and cough. 75 mL of Omnipaque-350 is administered intravenously. FINDINGS: There is satisfactory opacification of the pulmonary arteries with no filling defects to suggest pulmonary embolism. The thoracic aorta is normal in caliber. There is no mediastinal or hilar lymphadenopathy seen. No mediastinal mass. The heart size is at the upper limits of normal. The lungs demonstrate minimal atelectatic changes in the dependent areas of the lungs without significant consolidation or lung mass. No pericardial or pleural effusion. Cholecystectomy clips are seen with no significant abnormality noted in the visualized sections of the abdomen. The osseous structures demonstrate mild degenerative changes. IMPRESSION: No evidence of pulmonary embolism or aortic dissection. Dictated by: Dictated on workstation # [id number]
[2016-07-02] MEDS ORDERED: AZITHROMYCIN 250 MG TAB (ZITHROMAX) PO NR (16:56)
[2016-07-02] MEDS ORDERED: CATHETER FLUSH 10 ML SYR IV PRN (17:00)
[2016-07-02] MEDS ORDERED: PROMETHAZINE/ CODEINE SYRUP 5 ML UDC PO PRN (17:00)
[2016-07-02] MEDS: IBUPROFEN 600 MG (MOTRIN) TAB PO PRN (18:08)
[2016-07-02 19:56] VITALS: BP 124/62
[2016-07-02 20:19] VITALS: BP 124/62
[2016-07-02] MEDS: methylPREDNISolone 125 MG (Solu-MEDROL) VIAL IV SCH (20:24)
[2016-07-02] MEDS ORDERED: RT-ALBUTEROL SULF 2.5 MG/3 ML PRE-MIX VIAL INH PRN (20:45)
[2016-07-02] MEDS: CATHETER FLUSH 10 ML SYR IV SCH (22:16)
[2016-07-03] VITALS: BP 117/55
[2016-07-03] MEDS: methylPREDNISolone 125 MG (Solu-MEDROL) VIAL IV SCH (03:40)
[2016-07-03 04:00] VITALS: BP 118/60
[2016-07-03] MEDS: CATHETER FLUSH 10 ML SYR IV SCH (06:40)
[2016-07-03] MEDS: IBUPROFEN 600 MG (MOTRIN) TAB PO PRN (07:49)
[2016-07-03] MEDS ORDERED: ZOLP5TAB7 PO (08:06)
[2016-07-03] MEDS ORDERED: RT-ALBUINH INH (08:06)
[2016-07-03 08:19] VITALS: BP 131/63
[2016-07-03] MEDS ORDERED: CHOL20003 PO (08:19)
[2016-07-03] MEDS ORDERED: BUPR150T14 PO (08:19)
[2016-07-03] MEDS ORDERED: NF-ESOM40C PO (08:19)
[2016-07-03] MEDS ORDERED: ESTR0.9T PO (08:19)
[2016-07-03] MEDS ORDERED: OMEG-160 PO (08:19)
[2016-07-03] MEDS ORDERED: ALPR0.5T7 PO (08:19)
[2016-07-03] MEDS ORDERED: TOPI100T11 PO (08:19)
[2016-07-03] MEDS ORDERED: DULO60CA58 PO (08:19)
[2016-07-03] MEDS ORDERED: ARIP15TA9 PO (08:19)
[2016-07-03] MEDS ORDERED: LOXA10CA PO (08:19)
[2016-07-03] MEDS ORDERED: CALC-654 PO (08:19)
[2016-07-03] MEDS ORDERED: MULT1TAB60 PO (08:19)
[2016-07-03] MEDS ORDERED: LINA145C PO (08:19)
[2016-07-03] MEDS ORDERED: DONE10TA12 PO (08:19)
[2016-07-03] MEDS ORDERED: ASPI-983 PO (08:19)
[2016-07-03] MEDS ORDERED: BENZ1TAB6 PO (08:19)
[2016-07-03] MEDS ORDERED: PRD20T PO (11:10)
[2016-07-03] MEDS ORDERED: AZIT250T5 PO (11:10)
--- NOTE | 2016-07-03 11:14 | Discharge Instructions ---
Discharge [facility] Discharge Medications New, Converted or Re-Newed RX: Transmitted to Pharmacy New Medications: Prednisone (Prednisone) 20 Mg Tab 20 MG PO DAILY Take 3 tabs(60mg)daily,decrease by 1/2 tab(10mg)every other day. #22 TAB Azithromycin (Azithromycin) 250 Mg Tablet 250 MG PO DAILY #5 TAB Continued Medications: Albuterol Sulfate (Proventil Hfa) 6.7 Gm Hfa.aer.ad 1 PUFF INH EVERY 4-6 HOURS PRN SHORTNESS OF BREATH INHALER Alprazolam (Alprazolam) 0.5 Mg Tablet 0.5 MG PO TID PRN ANXIETY TAB Aripiprazole (Aripiprazole) 15 Mg Tablet 15 MG PO BID TAB Aspirin (Aspirin EC) 81 Mg Tablet.dr 81 MG PO DAILY TAB Benztropine Mesylate (Benztropine Mesylate) 1 Mg Tablet 1 MG PO HS TAB Bupropion HCl (Bupropion HCl Sr) 150 Mg Tablet.er 150 MG PO HS TAB Calcium Carbonate/Vitamin D3 (Calcium 500 + D Tablet) 1 Each Tablet 1 TAB PO HS TAB Cholecalciferol (Vitamin D3) (Vitamin D3) 2,000 Unit Capsule 2000 UNIT PO HS CAP Donepezil HCl (Aricept) 10 Mg Tablet 10 MG PO DAILY TAB Duloxetine HCl (Duloxetine HCl) 60 Mg Capsule.dr 60 MG PO HS CAP Esomeprazole Magnesium (Nexium) 40 Mg Cap 40 MG PO DAILY CAP Estrogens, Conjugated (Premarin) 0.9 Mg Tablet 0.9 MG PO DAILY TAB Linaclotide (Linzess) 145 Mcg Capsule 145 MCG PO DAILY CAP Loxapine Succinate (Loxapine) 10 Mg Capsule 10 MG PO BID CAP Multivitamin (Chewable-Santo) 1 Each Tab.chew 2 TAB.CHEW PO HS TAB Austin-3/Dha/Epa/Fish Oil (Fish Oil 1,000 mg Softgel) 1 Each Capsule 2000 MG PO HS CAP Topiramate (Topiramate) 100 Mg Tablet 200 MG PO BID TAB Zolpidem Tartrate (Zolpidem Tartrate) 5 Mg Tablet 5 MG PO HS TAB Patient Instructions Goal/Follow Up Appt: You have a hospital follow up appointment with Reny on Jul 09 @ 120pm Patient Instructions: - Make sure to complete your azithromycin which is an antibiotic - Make sure to complete you prednisone taper - For the next couple days take your albuterol inhaler prior to laying down to try and sleep. This should help your cough Return to The Hospital For: Shortness of breath Chest pain Unable to tolerate medications Activity & Diet Discharge Diet: Cardiac Diet Activity as Tolerated: Yes Copy Copies To 1: [facility] RAMAKRISHNA Lei MD Jul 03, 2016 11:14
[2016-07-03] MEDS ORDERED: ALPRAZolam 0.5 MG (XANAX) TAB PO PRN (11:15)
--- NOTE | 2016-07-03 11:21 | Short Stay Summary ---
HPI History of Present Illness: 55 yo F that presents to ER with wheezing and increasing shortness of breath. Since the beginning of June she has been treated with steroids 3 times for bronchitis. Patient states that it improves for about 5-7 days then returns. She denies any history of COPD but does have a remote h/o tobacco use. Patient states that it has been a dry cough. Denies any fever or chills. This episode has been getting worse over the last 2-3 days. Upon arrival she also had some tingling in her fingers and mild chest discomfort that would get worse when she was coughing. No h/o heart Dz. Source: patient Exam Limitations: no limitations Date seen by provider: Jul 03, 2016 Attending Physician Ramakrishna Newton MD PCP [facility] Date of Admission Jul 02, 2016 at 15:44 Home Medications Home Medications Reviewed patient Home Medication Reconciliation Form Allergies Coded Allergies: No Known Drug Allergies (Unverified , 05/10/15) NNA-Wenfbi-Lfzlsp Hx Patient Social History Living Status: Lives with and son Alcohol Use: Denies Use Recreational Drug Use: No Smoking Status: Never a Smoker Recent Foreign Travel: No Contact w/other who traveled: No Recent Hopitalizations: No Recent Infectious Disease Expo: No Physical Abuse Screen: No Sexual Abuse: No Immunizations Up To Date Date of Pneumonia Vaccine: Apr 03, 2015 Date of Influenza Vaccine: Mar 05, 2016 Family Medical History Significant Family History: No Pertinent Family Hx Family History: Alzheimer's disease Arthritis Asthma Colon cancer Diabetes mellitus Myocardial infarction Psychosocial problem Respiratory disorder Visual disorder Review of Systems ([facility]) Constitutional: no symptoms reportedNo chills, No fever, No weakness EENTM: nose congestion Respiratory: cough dyspnea on exertionNo hemoptysis, No orthopnea, short of breath wheezing Cardiovascular: no symptoms reportedNo chest pain, No edema, No palpitations Gastrointestinal: no symptoms reportedNo abdominal pain, No constipation, No diarrhea, No nausea, No vomiting Genitourinary: no symptoms reportedNo dysuria, No frequency, No hematuria : No Musculoskeletal: no symptoms reportedNo joint swelling, No muscle pain Skin: no symptoms reportedNo rash Psychiatric/Neurological: Anxiety (with being in the hospital) Reviewed Test Results Reviewed Test Results Lab Laboratory Tests Test 07/02/16 11:48 07/02/16 13:42 07/02/16 14:31 Range/Units Alanine Aminotransferase (ALT/SGPT) 23 0-55 U/L Albumin 3.7 3.2-4.5 G/DL Alkaline Phosphatase 85 40-136 U/L Anion Gap 7 5-14 MMOL/L Aspartate Amino Transf (AST/SGOT) 27 5-34 U/L BUN/Creatinine Ratio 17 Basophils # (Auto) 0.0 0.0-0.1 10^3/uL Basophils (%) (Auto) 0 0-10 % Blood Urea Nitrogen 14 7-18 MG/DL Calcium Level 9.7 8.5-10.1 MG/DL Carbon Dioxide Level 22 21-32 MMOL/L Chloride Level 112 H 98-107 MMOL/L Creatinine 0.83 0.60-1.30 MG/DL Eosinophils # (Auto) 0.8 H 0.0-0.3 10^3/uL Eosinophils (%) (Auto) 11 H 0-10 % Estimat Glomerular Filtration Rate > 60 Glucose Level 99 70-105 MG/DL Hematocrit 39 35-52 % Hemoglobin 12.6 11.5-16.0 G/DL Lymphocytes # (Auto) 1.5 1.0-4.0 X 10^3 Lymphocytes (%) (Auto) 20 12-44 % Magnesium Level 2.4 1.8-2.4 MG/DL Mean Corpuscular Hemoglobin 29 25-34 PG Mean Corpuscular Hemoglobin Concent 32 32-36 G/DL Mean Corpuscular Volume 90 80-99 FL Mean Platelet Volume 11.3 H 7.4-10.4 FL Monocytes # (Auto) 0.5 0.0-1.0 X 10^3 Monocytes (%) (Auto) 6 0-12 % Neutrophils # (Auto) 4.7 1.8-7.8 X 10^3 Neutrophils (%) (Auto) 62 42-75 % Platelet Count 255 130-400 10^3/uL Potassium Level 4.8 3.6-5.0 MMOL/L Red Blood Count 4.35 4.35-5.85 10^6/uL Red Cell Distribution Width 14.9 H 10.0-14.5 % Sodium Level 141 135-145 MMOL/L Total Bilirubin 0.2 0.1-1.0 MG/DL Total Protein 6.9 6.4-8.2 G/DL Troponin I < 0.30 <0.30 NG/ML White Blood Count 7.6 4.3-11.0 10^3/uL Beto Test YES-POS Arterial Blood Base Excess -3.6 L -2.5-2.5 MMOL/L Arterial Blood HCO3 22 L 23-27 MMOL/L Arterial Blood Oxygen Saturation 95 94-100 % Arterial Blood Partial Pressure CO2 44 35-45 MMHG Arterial Blood Partial Pressure O2 73 L 79-93 MMHG Arterial Blood Total CO2 23.8 21.0-31.0 MMOL/L Arterial Blood pH 7.32 *L 7.37-7.43 Blood Gas Inspired Oxygen ROOM AIR Blood Gas Patient Temperature 98.3 Blood Gas Puncture Site LT RADIAL Blood Gas Ventilator Setting NO B-Type Natriuretic Peptide < 10.0 <100.0 PG/ML D-Dimer 0.52 H 0.00-0.49 UG/ML Radiology Date of Exam: 07/02/16 CT ANGIO CHEST W PROCEDURE: CT angiography of the chest with contrast. TECHNIQUE: Multiple contiguous axial images were obtained through the chest after uneventful bolus administration of intravenous contrast. Reconstructed CTA MIP acquisitions were also performed. INDICATION: Wheezing and cough. 75 mL of Omnipaque-350 is administered intravenously. FINDINGS: There is satisfactory opacification of the pulmonary arteries with no filling defects to suggest pulmonary embolism. The thoracic aorta is normal in caliber. There is no mediastinal or hilar lymphadenopathy seen. No mediastinal mass. The heart size is at the upper limits of normal. The lungs demonstrate minimal atelectatic changes in the dependent areas of the lungs without significant consolidation or lung mass. No pericardial or pleural effusion. Cholecystectomy clips are seen with no significant abnormality noted in the visualized sections of the abdomen. The osseous structures demonstrate mild degenerative changes. IMPRESSION: No evidence of pulmonary embolism or aortic dissection. Physical Exam-([facility]) Physical Exam Vital Signs VS - Last 72 Hours, by Label 07/02/16 07/02/16 07/02/16 07/02/16 11:35 12:26 12:30 15:55 Temp 97.8 Pulse 97 109 Resp 24 18 B/P 115/87 Pulse Ox 93 93 95 95 O2 Delivery Room Air Room Air 07/02/16 07/02/16 07/02/16 07/02/16 18:25 20:16 20:16 20:19 Temp 98.6 Pulse 113 Resp 18 B/P 124/62 Pulse Ox 96 93 93 95 O2 Delivery Room Air Room Air 07/02/16 07/03/16 07/03/16 07/03/16 21:00 00:00 04:00 07:32 Temp 98.6 98.3 Pulse 107 107 Resp 20 22 B/P 117/55 118/60 Pulse Ox 94 94 94 O2 Delivery Room Air Room Air Room Air 07/03/16 07/03/16 08:19 08:45 Temp 98.5 Pulse 98 Resp 16 B/P 131/63 Pulse Ox 90 O2 Delivery Room Air Room Air Capillary Refill : Less Than 3 Seconds General Appearance: WD/WN no apparent distress Eyes: Bilateral Eye EOMI, Bilateral Eye Normal Inspection, Bilateral Eye PERRL Neck: non-tender full range of motion supple normal inspection Respiratory: chest non-tender lungs clear normal breath sounds no respiratory distress no accessory muscle use Cardiovascular: regular rate, rhythm no edema no gallop no JVD no murmur Gastrointestinal: normal bowel sounds non tender soft no organomegaly no pulsatile mass Back: normal inspection no CVA tenderness no vertebral tenderness Extremities: normal range of motion non-tender normal inspection no pedal edema no calf tenderness normal capillary refill 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 nml as tested no motor/sensory deficits alert normal mood/affect oriented x 3 Skin: normal color warm/dry Short Stay Diagnosis Discharge Diagnosis-Short Stay Admission Diagnosis Obstructive airway disease with hypoxia Mood d/o Cough Final Discharge Diagnosis See above Conclusion Plan 55 yo F that was admitted with hypoxia Obstructive airway disease with hypoxia - Started on breathing treatment scheduled and PRN - IV steroids, now transitioned to PO steroids home with taper - Complete Z-pack - Make sure to keep your appointment with the bag bleacher - Now > 92% on RA Cough - Patient has tessalon at home, ok to continue Mood D/o - Continued patient's home medications Home today with close follow up with Reny Copy Copies To 1: [facility] RAMAKRISHNA Lei MD Jul 03, 2016 11:21
[2016-07-03] MEDS ORDERED: DULoxetine 30 MG (CYMBALTA) CAP PO SCH (11:45)
[2016-07-03] MEDS ORDERED: AZITHROMYCIN 250 MG TAB (ZITHROMAX) PO SCH (17:00)
[2016-07-03] MEDS ORDERED: ARIPIPRAZOLE 15 MG (ABILIFY) TAB PO SCH (21:00)
[2016-07-03] MEDS ORDERED: toPIRamate 100 MG (TOPAMAX) TAB PO SCH (21:00)
[2016-07-03] MEDS ORDERED: buPROPion SR 150 MG (WELLBUTRIN SR) TAB PO SCH (21:00)
[2016-07-03] MEDS ORDERED: BENZTROPINE MESYLATE 1 MG (COGENTIN) TAB PO SCH (21:00)
[2016-07-04] MEDS ORDERED: PANTOPRAZOLE 40 MG (PROTONIX) TAB PO SCH (07:00)
[2016-07-04] MEDS ORDERED: ASPIRIN E.C. 81 MG (ECOTRIN) TAB PO SCH (09:00)
[2016-07-04] MEDS ORDERED: DONEPEZIL 10 MG (ARICEPT) TAB PO SCH (09:00)
== END 2016-07-03 11:10 | disposition home or self-care (01) ==
LOC: EDUNIT# 11:16 → ER 11:19 → 4TH 15:44 → UNDOADMOB 15:44 → 4TH 17:00 → UNDODISOB 07-03 11:10
PROVIDERS: ADMIT Family Medicine; ATTEND Family Medicine
DX: J44.9 Chronic obstructive pulmonary disease, unspecified (principal); R09.02 Hypoxemia; F39 Unspecified mood [affective] disorder; R05 Cough; Z87.891 Personal history of nicotine dependence
CPT/HCPCS: 36415; 71020; 71275; 80053; 82805; 83735; 83880; 84484; 85025; 85379; 87804; 93005; 94640; 94644; 94760; 96374; 96375; G0378

== ENCOUNTER → 2016-07-22 | Outpatient (CLI) | payer MEDICARE, OTHER ==
[~2016-07-22] MED LIST changes: +ALB0.5V IH; +ALPR0.5T7 PO; +ARIP15TA9 PO; +ASPI-983 PO; +AZIT250T5 PO; +BENZ1TAB6 PO; +BUPR150T14 PO; +CALC-654 PO; +CHOL20003 PO; +DONE10TA12 PO; +DULO60CA58 PO; +ESTR0.9T PO; +LINA145C PO; +LOXA10CA PO; +MULT1TAB60 PO; +NF-ESOM40C PO; +OMEG-160 PO; +PRED5TAB PO; +RT-ALBUINH INH; +RT-ALBUTEROL SULF 2.5 MG/3 ML PRE-MIX VIAL ONE; +TOPI100T11 PO; +ZOLP10TA PO; +ZOLP5TAB7 PO
== END ==
LOC: RT 15:19
PROVIDERS: ATTEND Internal Medicine Critical Care Medicine
DX: R06.00 Dyspnea, unspecified (principal); R05 Cough; R06.83 Snoring; E66.9 Obesity, unspecified; G47.9 Sleep disorder, unspecified
CPT/HCPCS: 94060; 94640; 94726; 94729

== ENCOUNTER 2016-07-24 14:00 | Outpatient (CLI) | payer MEDICARE, OTHER ==
[~2016-07-24 14:00] MED LIST changes: +RT-ALBUTEROL SULF 2.5 MG/3 ML PRE-MIX VIAL INH ONE; -RT-ALBUTEROL SULF 2.5 MG/3 ML PRE-MIX VIAL ONE
== END 2016-07-24 14:43 | disposition home or self-care (01) ==
LOC: SLEEP 14:00
PROVIDERS: ATTEND Internal Medicine Critical Care Medicine
DX: G47.10 Hypersomnia, unspecified (principal); R06.83 Snoring; E66.9 Obesity, unspecified; R06.00 Dyspnea, unspecified; R05 Cough

== ENCOUNTER 2016-12-17 09:00 | Outpatient (RCR) | payer MEDICARE, OTHER ==
[~2016-12-17 09:00] MED LIST changes: -RT-ALBUTEROL SULF 2.5 MG/3 ML PRE-MIX VIAL INH ONE
== END 2016-12-22 | disposition home or self-care (01) ==
LOC: PULM 09:00
PROVIDERS: ATTEND Nurse Practitioner Family
DX: R06.00 Dyspnea, unspecified (principal); J98.4 Other disorders of lung
CPT/HCPCS: 99211

== ENCOUNTER 2017-02-11 09:00 | Outpatient (RCR) | payer MEDICARE, OTHER | END 2017-03-01 | disposition home or self-care (01) | LOC: PULM 09:00 | PROVIDERS: ATTEND Nurse Practitioner Family | DX: J98.4 Other disorders of lung; R06.00 Dyspnea, unspecified ==

== ENCOUNTER → 2017-05-19 | Outpatient (CLI) | payer MEDICARE, OTHER ==
[~2017-05-19] MED LIST changes: +AZIT250T12 PO; -AZIT250T5 PO
--- NOTE | 2017-05-19 20:05 | Diagnostic Imaging Report ---
Ultrasound of the neck. INDICATION: Right supraclavicular region lump. FINDINGS: The right thyroid lobe is 4.7 x 1.9 x 1.9 CM. The left lobe is 4.4 x 1.6 x 1.6 CM. There are multiple small thyroid nodules up to 0.8 CM in size seen bilaterally of uncertain significance. The palpable area in the left supraclavicular region demonstrate question of a hypoechoic lesion marked by the sleep lab technologist measuring 1.5 x 3.4 x 0.8 CM. It is uncertain if this is a true mass. Further evaluation with CT scan or MRI of the neck is recommended. IMPRESSION: 1. Nonspecific subcentimeter thyroid nodules. 2. The area of palpable lump in the left supraclavicular region demonstrates an indeterminate hypoechoic lesion. Further evaluation with preferably enhanced CT scan or MRI of the neck is recommended. Dictated by: Dictated on workstation # [id number]
== END ==
LOC: RAD 14:39
PROVIDERS: ATTEND Nurse Practitioner Family
DX: E04.2 Nontoxic multinodular goiter (principal); R22.1 Localized swelling, mass and lump, neck
CPT/HCPCS: 76536

== ENCOUNTER → 2017-06-13 | Outpatient (CLI) | payer MEDICARE, OTHER ==
[2017-06-13] MEDS: IOHEXOL 350 MG/ML 100 ML (OMNIPAQUE 350) VIAL IV ONE (16:33)
[2017-06-13] MEDS: CATHETER FLUSH 10 ML SYR IV PRN (16:34)
--- NOTE | 2017-06-13 17:11 | Diagnostic Imaging Report ---
PROCEDURE: CT neck soft tissue with contrast. TECHNIQUE: Multiple contiguous axial images were obtained through the neck after the administration of contrast. INDICATION: Lump in the lower aspect of the left neck. COMPARISON: CT neck from 08/31/2015. FINDINGS: A metallic BB marker was placed on the lower aspect of the left neck to demarcate the area of palpable concern. Deep to the marker, there is no abnormal skin thickening, soft tissue mass, lymphadenopathy or cystic lesion. The left external jugular vein is located deep to the marker, which could correspond to the area of palpable concern. No cervical lymphadenopathy. Subcentimeter hypodense nodule in the right thyroid lobe is stable and likely of no clinical significance. Parotid glands are normal. Submandibular glands are symmetric. No evidence of mucosal-based mass in the pharynx or larynx. Vocal folds are symmetric. Lung apices are clear. 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 Carotid and vertebral arteries are grossly normal allowing for the phase of contrast. Paranasal sinuses and mastoid air cells are clear where visualized. IMPRESSION: No abnormality to explain palpable concern in the lower left neck. The left external jugular vein runs beneath the area of palpable concern and could relate to the palpable focus. Dictated by: Dictated on workstation # [id number]
== END ==
LOC: RAD 12:57
PROVIDERS: ATTEND Nurse Practitioner Family
DX: R22.1 Localized swelling, mass and lump, neck (principal)
CPT/HCPCS: 70491

== ENCOUNTER 2018-02-03 08:25 | Day surgery (SDC) | payer MEDICARE, OTHER ==
[~2018-02-03] VITALS: Ht 167.6 cm; Wt 104.3 kg
[~2018-02-03 08:25] MED LIST changes: +ARPZ30T PO; +HYDR12.56 PO; +OMEP40CA36 PO; +RT-ALBUINH IH; +TRAZ-189 PO; +TRIH2TAB2 PO
--- OUTSIDE RECORDS SUMMARY | 2018-02-03 08:38 | XMS REPORT ---
Author Author MACEYDREW Organization [facility] Address [address] [place] [address] Care Team Providers Care Finger Buff Sewer Name Role Phone LUCILADREW AJ Unavailable PROBLEMS Type Condition ICD9-CM Code VJI86-IE Code Onset Dates Condition Status SNOMED Code Problem Slow transit constipation K59.01 Active 01302121 Problem Bipolar disorder, current episode mixed, mild F31.61 Active 029228826 Problem Chronic obstructive pulmonary disease, unspecified COPD type J44.9 Active 49824112 Problem Bipolar II disorder F31.81 Active 16351701 Problem Post-traumatic stress disorder, chronic F43.12 Active 40576633 Problem Bipolar affective disorder, currently manic, mild F31.11 Active 943384077 Problem Lumbago with sciatica, left side M54.42 Active 318795511 Problem Essential hypertension I10 Active 21556247 Problem Other chronic pain G89.29 Active 42453259 Problem Bipolar disorder, in partial remission, most recent episode mixed F31.77 Active 25709606 Problem Paresthesias R20.2 Active 55248784 Problem Irritable bowel syndrome with both constipation and diarrhea K58.2 Active 37520731 ALLERGIES Substance Reaction Event Type Date Status Xanax memory problems, mental disorganization Non Drug Allergy Oct, Active Silk tape rash Non Drug Allergy Oct, Active ENCOUNTERS Encounter Location Date Diagnosis [facility] [id number], [place] [address] Jan, [facility] [id number] [place] [address] 10767- 0675 Jan, [facility] [address], [place] [address] 3[address] Jan, [facility] [id number] [place] [address] 13320- 2819 Jan, [facility] [id number] [place] [address] 46142- 9976 Dec, Bipolar disorder, in partial remission, most recent episode mixed F31.77 and Essential hypertension I10 [facility] [id number] [place] [address] 80536- 8147 Dec, Bipolar disorder, in partial remission, most recent episode mixed F31.77 [place] [id number] [place] [address] 33369- 8011 Nov, Bipolar II disorder F31.81 and Post-traumatic stress disorder, chronic F43.12 [place] [address] 73594- 9761 Nov, Essential hypertension I10 ; Lymph node enlargement R59.9 ; Paresthesias R20.2 ; Irritable bowel syndrome with both constipation and diarrhea K58.2 ; Lumbago with sciatica, left side M54.42 and Other chronic pain G89.29 [place] [id number] [place] [address] 75351- 9542 Nov, Bipolar disorder, in partial remission, most recent episode mixed F31.77 [place] [id number] [place] [address] 09205- 3957 Oct, Bipolar disorder, in partial remission, most recent episode mixed F31.77 [facility] [id number] [place] [address] 26875 -2213 Oct, Scabies B86 [facility] [id number] [place] [address] 44650- 8278 Oct, Bipolar disorder, in partial remission, most recent episode mixed F31.77 [facility] [id number] [place] [address] 71087- 3566 Oct, [place] [id number] [place] [address] 17891- 0503 Oct, Bipolar II disorder F31.81 and Post-traumatic stress disorder, chronic F43.12 [facility] [id number] [place] [address] 53069 -4191 Oct, Latonia B86 [place] [address] 26055- 3311 Oct, [facility] [address] [address]- 1978 September, Bipolar II disorder F31.81 and Post-traumatic stress disorder, chronic F43.12 [place] [address] 41565- 0323 September, Bipolar disorder, in partial remission, most recent episode mixed F31.77 [place] [address] 14934- 5080 September, COPD exacerbation J44.1 and Elevated blood pressure reading R03.0 [place] [address] 00543- 4756 September, [place] [address] 81610- 7671 September, Pain in left ankle and joints of left foot M25.572 ; Dermatitis L30.9 and Other chronic pain G89.29 [place] [id number] [place] [address] 70619- 1412 Aug, Right elbow pain M25.521 and Elevated blood pressure reading R03.0 [place] [id number] [place] [address] 79486- 6595 Aug, Bipolar disorder, current episode mixed, mild F31.61 and BMI 40.0-44.9, adult Z68.41 [place] [address] 22644- 3019 Aug, [place] [address] 56303- 0125 Aug, Bipolar II disorder F31.81 and Post-traumatic stress disorder, chronic F43.12 [place] [id number] [place] [address] 14348- 6974 26 Jul, 2017 Elevated blood pressure reading R03.0 [place] [address] 06565- 0734 Jul, Bipolar II disorder F31.81 and Post-traumatic stress disorder, chronic F43.12 [place] [address] 82540- 9578 Jul, Bipolar disorder, current episode mixed, mild F31.61 [facility] WALK IN [place] [address] 13707 -6707 Jul, Right foot pain M79.671 ; Allergic contact dermatitis, unspecified trigger L23.9 ; Contusion of right foot, initial encounter S90.31XA and BMI 40.0-44.9, adult Z68.41 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 [place] [address] 38717- 8941 22 Jul, 2017 [place] [address] 07955- 8367 15 Jul, 2017 Bipolar disorder, current episode mixed, mild F31.61 [place] [address] 38912- 4333 15 Jul, 2017 Bipolar II disorder F31.81 ; Post-traumatic stress disorder , chronic F43.12 and Memory change R41.[address] 45715- 5459 14 Jul, 2017 Elevated blood pressure reading R03.0 ; Chronic obstructive pulmonary disease, unspecified COPD type J44.9 ; Long-term use of high-risk medication Z79.899 and Cognitive decline R41.89 [place] [address] 48431- 6137 06 Jul, 2017 Elevated blood pressure reading R03.0 [facility] [address], [place] [address] 0151 05 Jul, 2017 [facility] [id number] [place] [address] 00781- 1025 Jul, Bipolar II disorder F31.81 ; Post-traumatic stress disorder , chronic F43.12 and Memory change R41.3 [place] [id number] [place] [address] 62544- 1690 Jun, [facility] [id number] [place] [address] 92542- 3999 Jun, Bipolar II disorder F31.81 ; Post-traumatic stress disorder , chronic F43.12 and Memory change R41.3 [place] [id number] [place] [address] 68363- 3841 Jun, Localized swelling, mass or lump of neck R22.1 ; Slow transit constipation K59.01 and Elevated blood pressure reading R03.0 [place] [id number] [place] [address] 68875- 8842 Jun, [place] [id number] [place] [address] 70002- 1663 Jun, Bipolar affective disorder, currently manic, mild F31.11 [facility] [id number] [place] [address] 97232 -8197 May, [facility] [id number] [place] [address] 71766 -1811 May, [place] [id number] [place] [address] 94013- 3895 May, Bipolar II disorder F31.81 ; Post-traumatic stress disorder , chronic F43.12 and Memory change R41.3 [place] [id number] [place] [address] 20214- 1890 May, [place] [id number] [place] [address] 10156- 9047 08 May, 2017 [facility] [id number] [place] [address] 02035- 3652 May, Bipolar affective disorder, currently manic, mild F31.11 [facility] [id number] [place] [address] 24717- 8872 May, [facility] [id number] [place] [address] 28628 -7854 May, Localized swelling, mass or lump of neck R22.1 and Localized swelling, mass and lump, head R22.0 [facility] [id number] [place] [address] 64585- 1683 Apr, [facility] [id number] [place] [address] 68301- 5409 Apr, Bipolar affective disorder, currently manic, mild F31.11 [facility] [id number] [place] [address] 80423- 0633 07 Apr, 2017 Bipolar II disorder F31.81 [facility] [id number] [place] [address] 32619- 5277 07 Apr, 2017 [facility] [id number] [place] [address] 50624- 4316 Apr, Bipolar affective disorder, currently manic, mild F31.11 [facility] [id number] [place] [address] 38378- 8662 07 Apr, 2017 Actinic keratosis L57.0 [facility] [id number] [place] [address] 13405- 8991 Apr, Bipolar affective disorder, currently manic, mild F31.11 [facility] [address], [place] [address]- 6580 Apr, [facility] [id number] [place] [address] 23999 -9535 Mar, Allergic contact dermatitis, unspecified trigger L23.9 and Right leg pain M79.604 [facility] [id number] [place] [address] 73422- 3923 Mar, [facility] [id number] [place] [address] 10043- 9081 Mar, Bipolar II disorder F31.81 ; Post-traumatic stress disorder , chronic F43.12 and Memory change R41.3 [facility] [id number] [place] [address] 64385- 1776 Mar, Actinic keratosis L57.0 [place] [id number] [place] [address] 98445- 9827 Jan, Bipolar II disorder F31.81 ; Post-traumatic stress disorder , chronic F43.12 and Memory change R41.3 [place] [id number] [place] [address] 28138- 1134 Jan, Bipolar affective disorder, currently manic, mild F31.11 [place] [id number] [place] [address] 90404- 0617 13 Jan, 2017 Bipolar affective disorder, currently manic, mild F31.11 [facility] [id number] [place] [address] 46046- 1813 07 Jan, 2017 Bipolar II disorder F31.81 ; Post-traumatic stress disorder , chronic F43.12 and Memory change R41.3 [address] [place] [id number] [place] [address] 30964- 7671 Dec, Bipolar II disorder F31.81 ; Post-traumatic stress disorder , chronic F43.12 and Memory change R41.3 [address] [place] [id number] [place] [address] 96748- 4376 Dec, Bipolar affective disorder, currently manic, mild F31.11 [place] [id number] [place] [address] 02062- 9977 Dec, Bipolar affective disorder, currently manic, mild F31.11 [facility] [address], [place] [address]- 5367 Dec, Post-traumatic stress disorder, chronic F43.12 [facility] [address], [place] [address]- 1906 Dec, Bipolar II disorder F31.81 ; Post-traumatic stress disorder , chronic F43.12 and Memory change R41.3 [facility] [id number] [place] [address] 52736- 2994 Dec, Post-traumatic stress disorder, chronic F43.12 [facility] [id number] [place] [address] 01528- 4340 Nov, [facility] [id number] [place] [address] 58402- 6590 Nov, Bipolar II disorder F31.81 ; Post-traumatic stress disorder , chronic F43.12 and Memory change R41.3 [facility] [id number] [place] [address] 99123- 6415 Nov, [facility] [id number] [place] [address] 83923- 3411 Nov, Post-traumatic stress disorder, chronic F43.12 and Bipolar II disorder F31.81 [facility] [id number] [place] [address] 02575- 2156 Nov, Actinic keratosis L57.0 [facility] [id number] [place] [address] 90025- 2655 Oct, Bipolar II disorder F31.81 ; Post-traumatic stress disorder , chronic F43.12 and Memory change R41.3 [facility] [id number] [place] [address] 84928- 3244 Oct, Post-traumatic stress disorder, chronic F43.12 ; Bipolar II disorder F31.81 and Memory change R41.3 [facility] [id number] [place] [address] 88083- 2741 Oct, Bipolar II disorder F31.81 ; Post-traumatic stress disorder , chronic F43.12 and Memory change R41.3 [facility] [address], [place] [address]- 0306 Oct, Actinic keratosis L57.0 [facility] [address], [place] [address]- 0422 September, Bipolar II disorder F31.81 ; Post-traumatic stress disorder , chronic F43.12 and Memory change R41.3 [facility] [address], [place] [address]- 6835 September, Bipolar II disorder F31.81 ; Post-traumatic stress disorder , chronic F43.12 and Memory change R41.3 [place] [address], [place] [address]- 7076 September, Post-traumatic stress disorder, chronic F43.12 ; Bipolar II disorder F31.81 and Memory change R41.3 [facility] [address], [place] [address]- 8240 Jul, Bipolar II disorder F31.81 ; Post-traumatic stress disorder , chronic F43.12 and Memory change R41.3 [facility] [address], [place] [address]- 6721 Jul, Bipolar II disorder F31.81 ; Post-traumatic stress disorder , chronic F43.12 and Memory change R41.3 [facility] [address], [place] [address]- 7454 Jul, Bipolar II disorder F31.81 ; Post-traumatic stress disorder , chronic F43.12 and Memory change R41.3 [facility] [address], [place] [address]- 8774 Jul, Post-traumatic stress disorder, chronic F43.12 ; Bipolar II disorder F31.81 and Memory change R41.3 [facility] [id number] [place] [address] 73698- 3135 Jul, Tear of medial meniscus of right knee, unspecified tear type , unspecified whether old or current tear, initial encounter S83.241A [place] [id number] [place] [address] 4811 Jul, Bipolar II disorder F31.81 ; Post-traumatic stress disorder , chronic F43.12 and Memory change R41.3 [place] [address] 72852- 9037 Jul, Shortness of breath R06.02 ; Mixed hyperlipidemia E78.2 and Chronic fatigue R53.[address] 31562- 3761 Jul, Bipolar II disorder F31.81 ; Post-traumatic stress disorder , chronic F43.12 and Memory change R41.3 [place] [address] 78932- 4476 Jul, [place] [address] 15576- 2888 Jun, Bipolar II disorder F31.81 ; Post-traumatic stress disorder , chronic F43.12 and Memory change R41.3 [place] [id number] [place] [address] 53051- 2354 Jun, Post-traumatic stress disorder, chronic F43.12 ; Bipolar II disorder F31.81 and Memory change R41.3 [place] [id number] [place] [address] 35180- 3649 Jun, Right anterior knee pain M25.561 ; Shortness of breath R06.02 and Bronchiolitis J21.9 [place] [id number] [place] [address] 95298- 0781 Jun, [place] [id number] [place] [address] 65046- 0918 Jun, Bipolar II disorder F31.81 ; Post-traumatic stress disorder , chronic F43.12 and Memory change R41.3 [facility] [id number], [place] [address] 2546 Jun, [facility] [id number] [place] [address] 87772 2546 Jun, Bipolar II disorder F31.81 ; Post-traumatic stress disorder , chronic F43.12 and Memory change R41.3 [facility] [id number] [place] [address] 38660 2546 May, [facility] [id number] [place] [address] 16456- 9786 May, [facility] [id number] [place] [address] 08708- 7086 May, [facility] [id number] [place] [address] 51351- 2936 May, Right anterior knee pain M25.561 ; Cough R05 ; Skin lesion of right arm L98.9 and Lesion of skin of face L98.9 [facility] [address], [place] [address]- 0196 May, [facility] [id number] [place] [address] 37115 2546 May, Post-traumatic stress disorder, chronic F43.12 ; Memory change R41.3 and Bipolar I disorder, most recent episode manic F31.10 [facility] [address], [place] [address] 2546 May, [facility] [id number], [place] [address] 2546 May, Right anterior knee pain M25.561 [facility] [id number] [place] [address] 83707 2546 May, [facility] [id number] [place] [address] 97005- 7806 30 Nov, 2016 Bipolar II disorder F31.81 ; Post-traumatic stress disorder , chronic F43.12 and Memory change R41.3 [place] [id number] [place] [address] 06391- 5048 Apr, Bipolar II disorder F31.81 ; Post-traumatic stress disorder , chronic F43.12 and Memory change R41.3 [place] [id number] [place] [address] 31942- 5388 Apr, Post-traumatic stress disorder, chronic F43.12 ; Bipolar II disorder F31.81 and Memory change R41.3 [place] [id number] [place] [address] 19190- 3911 Mar, Bipolar II disorder F31.81 ; Post-traumatic stress disorder , chronic F43.12 and Memory change R41.3 [place] [id number] [place] [address] 67569- 2175 Mar, Memory change R41.3 ; Confusion R41.0 and Dizziness R42 [place] [id number] [place] [address] 16396- 4028 Mar, Encounter for immunization Z23 ; Memory change R41.3 and Fatigue, unspecified type R53.83 [place] [id number] [place] [address] 71009- 1770 Mar, Bipolar II disorder F31.81 ; Post-traumatic stress disorder , chronic F43.12 and Memory change R41.3 [place] [id number] [place] [address] 88187- 2484 Jan, Bipolar II disorder F31.81 ; Post-traumatic stress disorder , chronic F43.12 and Memory change R41.3 [place] [id number] [place] [address] 53729- 7602 Jan, Post-traumatic stress disorder, chronic F43.12 ; Bipolar II disorder F31.81 ; Anxiety disorder, unspecified F41.9 and Memory change R41.3 [place] [id number] [place] [address] 92325- 8738 15 Feb, 2016 Bipolar II disorder F31.81 ; Post-traumatic stress disorder , chronic F43.12 and Memory change R41.3 [facility] [id number] [place] [address] 72450- 3992 Dec, Bipolar II disorder F31.81 ; Post-traumatic stress disorder , chronic F43.12 and Memory change R41.3 [facility] [id number] [place] [address] 26875- 6125 Dec, Memory loss R41.3 [facility] [id number] [place] [address] 72226- 3287 Dec, Bipolar II disorder F31.81 ; Post-traumatic stress disorder , chronic F43.12 and Memory change R41.3 [facility] [id number] [place] [address] 43144- 7912 Nov, Bipolar II disorder F31.81 and Post-traumatic stress disorder, chronic F43.12 [facility] [id number] [place] [address] 04175- 9890 Nov, Bipolar II disorder F31.81 ; Post-traumatic stress disorder , chronic F43.12 and Memory change R41.3 [facility] [address] [place] [address]- 4069 Oct, Post-traumatic stress disorder, chronic F43.12 and Bipolar disorder, unspecified F31.9 [facility] [address], [place] [address]- 4809 Oct, Bipolar II disorder F31.81 ; Post-traumatic stress disorder , chronic F43.12 and Memory change R41.3 [facility] [id number] [place] [address] [id number] Oct, Dental examination Z01.20 [facility] [address], [place] [address]- 0666 September, Bipolar II disorder F31.81 ; Post-traumatic stress disorder , chronic F43.12 and Memory change R41.3 [place] [id number] [place] [address] 34967- 9207 Aug, Bipolar II disorder F31.81 and Post-traumatic stress disorder, chronic F43.12 [place] [id number] [place] [address]- 7436 Aug, Bipolar II disorder F31.81 and Post-traumatic stress disorder, chronic F43.12 [place] [id number] [place] [address]- 3840 Jul, Bipolar II disorder F31.81 and Post-traumatic stress disorder, chronic F43.12 [place] [id number] [place] [address]- 5865 Jul, [place] [id number] [place] [address] 49825- 5658 Jul, [place] [id number] [place] [address] [id number] [id number] Jul, Post-traumatic stress disorder, chronic F43.12 and Bipolar disorder, unspecified F31.9 [place] [id number] [place], [place] [id number] Jun, Bipolar II disorder F31.81 and Post-traumatic stress disorder, chronic F43.12 [place] [id number] [place] [address] [id number] Jun, Post-traumatic stress disorder, chronic F43.12 and Bipolar disorder, unspecified F31.9 [place] [id number] [place] [address] [id number] Jun, [place] [address] [id number] Jun, Pharyngeal dysphagia R13.13 ; Hoarseness R49.0 and Cough R05 [place] [id number] [place] [address] [id number]- [id number] Jun, Post-traumatic stress disorder, chronic F43.12 and Bipolar disorder, unspecified F31.9 [facility] [id number] [place] [address] [id number] May, Cough R05 [facility] [address] [id number] [place] [address] 11562- 9556 30 May, 2015 Post-traumatic stress disorder, chronic F43.12 and Bipolar disorder, unspecified F31.9 [facility] [id number] [place] [address] 90413- 8310 May, Cough R05 [facility] [address] 45793- 0594 16 May, 2015 [facility] [address] [id number] May, Dental examination Z01.20 [facility] [address] 31761- 0369 15 May, 2015 Bipolar II disorder F31.81 and Post-traumatic stress disorder, chronic F43.12 [facility] [id number] [place] [address] 62703- 6352 14 May, 2015 [facility] [address] 82095- 4334 14 May, 2015 Bipolar II disorder F31.81 and Anxiety disorder, unspecified F41.9 [facility] [id number] [place] [address] 05102- 2655 10 May, 2015 Memory change R41.3 and History of renal insufficiency syndrome Z87.448 [facility] [id number] [place] [address] 68049- 4108 03 May, 2015 Memory change R41.3 ; Dry mouth R68.2 and History of renal insufficiency syndrome Z87.448 [facility] [id number] [place] [address] 98942- 6728 May, Bipolar II disorder F31.81 and Post-traumatic stress disorder, chronic F43.12 [place] [id number] [place] [address] 32570- 2867 Mar, Bipolar disorder, unspecified F31.9 and Generalized anxiety disorder F41.1 [facility] [id number] [place] [address] 64720- 6730 Mar, Bipolar II disorder F31.81 [facility] [id number] [place] [address] 17125- 5131 Mar, Encounter for immunization Z23 [facility] [id number] [place] [address] 75089- 5588 Mar, [facility] [id number] [place] [address] 39013- 6483 Mar, Bipolar II disorder F31.81 [facility] [id number] [place] [address] 70003- 6509 Mar, [facility] [id number] [place] [address] 58599- 3653 Jan, Bipolar disorder, unspecified 296.80 and Anxiety disorder 300.00 [facility] [id number] [place] [address] 77967- 0948 Jan, [facility] [id number] [place] [address] 41996- 7551 Jan, Bipolar disorder, unspecified 296.80 and Anxiety disorder 300.00 [facility] [id number] [place] [address] 16247- 2076 Dec, Bipolar disorder, unspecified 296.80 and Anxiety disorder 300.00 [facility] [id number] [place] [address] 92814- 9600 Dec, [facility] [id number] [place] [address] 76163- 5066 Dec, Bipolar disorder, unspecified 296.80 and Anxiety disorder 300.00 [facility] [id number] [place] [address] 61026- 6130 Nov, Bipolar disorder, unspecified 296.80 and Anxiety disorder 300.00 [facility] [id number] [place] [address] 67436- 3246 Oct, Bipolar disorder, unspecified 296.80 and Anxiety disorder 300.00 [facility] [id number] [place] [address] 63458- 7856 Oct, Anxiety 300.00 and Bipolar disorder, unspecified 296.80 [facility] [id number] [place] [address] 22410- 2256 September, Bipolar disorder, unspecified 296.80 and Anxiety disorder 300.00 [facility] [id number] [place] [address] 28648- 5264 September, [facility] [id number] [place] [address] 50627- 1109 Aug, Cough 786.2 [facility] [id number] [place] [address] 57146- 5122 Aug, [facility] [id number] [place] [address] 18823- 3090 Aug, [facility] [id number] [place] [address] 67853- 1543 Jul, [facility] [id number] [place] [address] [id number]- 7829 Jul, [facility] [id number] [place] [address] 04152- 6516 Jul, [facility] [id number] [place] [address] 77633- 0624 Jul, [facility] [id number] [place] [address] 217284- 1976 Jul, [facility] [id number] [place] [address] 21870- 9696 Jul, [facility] [id number] [place] [address] 11684- 1475 Jun, [facility] [place] [facility] [address] [id number] [place] [address]- 1812 Jun, [facility] [place] [facility] [address] [id number] [place] [address]- 9893 Jun, [facility] [place] [facility] [address] [facility] [id number] [place] [address]- 3835 Jun, [facility] [place] [facility] [address] [id number] [place] [address]- 6069 May, [facility] [place] [facility] [address] [id number] [place] [address]- 7131 May, [facility] [place] [facility] [address] [id number] [place] [address]- 2861 May, [facility] [place] [facility] [address] [facility] [id number] [place] [address]- 8819 May, [facility] [place] [facility] [address] [facility] [id number] [place] [address]- 5599 Apr, [facility] [place] [facility] [address] [facility] [id number] [place] [address]- 8460 Apr, [facility] [place] [facility] [address] [facility] [id number] [place] [address]- 7991 Mar, [facility] [place] [facility] [address] [id number] [place] [address]- 9355 Mar, [facility] [place] [facility] [address] [id number] [address]- 4343 Mar, [facility] [place] [facility] [address] [id number] [place] [address]- 6260 Mar, [facility] [place] [facility] [address] [facility] [id number] [place] [address]- 2274 Mar, [facility] [place] [facility] [address] [facility] [id number] [place] [address]- 5838 Mar, [facility] [place] [facility] [address] [id number] [place] [address]- 7028 Jan, 2013 [facility] [place] [facility] [address] [id number] [place] [address]- 3586 Jan, 2013 [facility] [place] [facility] [address] [id number] [place] [address]- 3256 Jan, 2013 [facility] [place] [facility] [address] [id number] [place] [address]- 6696 05 Jan, 2013 [facility] [place] [facility] [address] [id number] [place] [address]- 7922 Jan, 2013 [facility] [place] [facility] [address] [id number] [place] [address]- 4151 Jan, 2013 [facility] [place] [facility] [address] [id number] [place] [address]- 5593 Dec, [facility] [place] [facility] [address] [id number] [place] [address]- 1524 Dec, [facility] [place] [facility] [address] [id number] [place] [address]- 9421 Dec, [facility] [place] [facility] [address] [id number] [place] [address]- 9560 Dec, [facility] [place] [facility] [address] [id number] [place] [address]- 1117 Dec, [facility] [place] [facility] [address] [id number] [place] [address]- 0827 Dec, [facility] [place] [facility] [address] [id number] [place] [address]- 7564 Nov, [facility] [place] [facility] [address] [id number] [place] [address]- 8966 Nov, [facility] [place] [facility] [address] [id number] [place] [address]- 4426 Nov, [facility] [place] [facility] [address] [id number] [place] [address]- 7504 Nov, [facility] [place] [facility] [address] [id number] [place] [address]- 1265 Nov, [facility] [place] [facility] [address] [id number] [place] [address]- 7339 Nov, [facility] [place] [facility] [address] [id number] [place] 5353 Nov, [facility] [place] [facility] [address] [id number] [place] [address]- 9084 Nov, [facility] [place] [facility] [address] [id number] [place] [address]- 9611 Nov, [facility] [place] [facility] [address] [id number] [place] [address]- 5932 Nov, [facility] [place] [facility] [address] [id number] [place] [address]- 9105 September, [facility] [place] [facility] [address] [id number] [place] [address]- 0705 September, [facility] [place] [facility] [address] [id number] [place] [address]- 2832 September, [facility] [place] [facility] [address] [id number] [place] [address]- 8690 September, [facility] [place] [facility] [address] [id number] [place] [address]- 6548 September, [facility] [place] [facility] [address] [id number] [place] [address]- 9372 September, [facility] [place] [facility] [address] [id number] [place] [address]- 5798 September, [facility] [place] [facility] [address] [id number] [place] [address]- 5211 September, [facility] [place] [facility] [address] [id number] [place] [address]- 7914 Aug, [facility] [place] [facility] [address] [id number] [place] [address]- 2145 Aug, [facility] [place] [facility] [address] [id number] [place] [address]- 0100 Aug, [facility] [place] [facility] [address] [id number] [place] [address]- 2095 Aug, [facility] [place] [facility] [address] [id number] [place] [address]- 2662 Jul, [facility] [place] [facility] [address] [id number] [place] [address]- 7562 Jul, [facility] [place] [facility] [address] [id number] [place] [address]- 3363 Jul, [facility] [place] [facility] [address] [id number] [place] [address]- 4016 Jul, [facility] [place] [facility] [address] [id number] [place] [address]- 4400 18 Jul, 2013 [facility] [place] [facility] [address] [id number] [place] [address]- 4490 Jul, [facility] [place] [facility] [address] [id number] [place] [address]- 2474 Jul, [facility] [place] [facility] [address] [facility] [id number] [place] [address]- 6297 Jul, [facility] [place] [facility] [address] [id number] [place] [address]- 2903 Jul, [facility] [place] [facility] [address] [id number] [place] [address]- 4101 Jul, [facility] [place] [facility] [address] [id number] [place] 2245 Jul, [facility] [place] [facility] [address] [id number] [place] 6420 Jun, [facility] [place] [facility] [address] [id number] [place] [address]- 2967 Jun, [facility] [place] [facility] [address] [id number] [place] [address]- 0690 Jun, [facility] [place] [facility] [address] [id number] [place] [address]- 8601 Jun, [facility] [place] [facility] [address] [id number] [place] [address]- 3054 May, [facility] [place] [facility] [address] [id number] [place] [address]- 3893 May, [facility] [place] [facility] [address] [id number] [place] [address]- 3168 Apr, [facility] [place] [facility] [address] [id number] [place] [address]- 5113 Apr, [facility] [place] [facility] [address] [id number] [place] [address]- 7532 Apr, [facility] [place] [facility] [address] [id number] [place] [address]- 1952 Apr, [facility] [place] [facility] [address] [id number] [place] [address]- 2775 Apr, [facility] [place] [facility] [address] [id number] [place] [address]- 4112 Apr, [facility] [place] [facility] [address] [id number], [place] [address]- 6085 Apr, [facility] [place] [facility] [address] [id number], [place] [address]- 6926 Apr, [facility] [place] [facility] [address] [id number] [place] [address]- 2612 Apr, [facility] [place] [facility] [address] [id number], [place] [address]- 9109 Apr, [facility] [place] [facility] [address] [id number], [place] [address]- 8925 Apr, [facility] [place] [facility] [address] [id number] [address]- 3777 Apr, [facility] [address] [address]- 5160 Mar, [facility] [address] 0815 Mar, [facility] [id number]- 5620 Mar, [facility] [address], [place] [address]- 9247 Dec, [facility] [id number] [place] [address] 31712- 4879 Dec, [facility] [address], [place] [address]- 6121 Dec, [facility] [id number], [place] [address]- 4474 Oct, [facility] [address], [place] [address]- 1744 May, [facility] [address], [place] [address]- 9388 May, [facility] [id number], [place] [address]- 8532 May, [facility] [address] [id number], [place] [address]- 5755 Dec, IMMUNIZATIONS No Known Immunizations SOCIAL HISTORY Never Assessed REASON FOR VISIT salvador/katina Rosenberg MA PLAN OF CARE Activity Details Follow Up 4 Weeks Reason: VITAL SIGNS Height 66 in 2017-11-27 Weight 234.6 lbs 2017-11-27 Heart Rate 105 bpm 2017-11-27 Respiratory Rate 20 2017-11-27 Oximetry on room air:95 % 2017-11-27 BMI 37.86 kg/m2 2017-11-27 Blood pressure systolic 145 mmHg 2017-11-27 Blood pressure diastolic 90 mmHg 2017-11-27 MEDICATIONS Medication Instructions Dosage Frequency Start Date End Date Duration Status Diclofenac Sodium 75 MG Orally Twice a day 1 tablet with food or milk 12h Active Omeprazole 40 MG Orally Once a day 1 capsule 24h Active Aspirin 81 MG Orally Once a day 1 tablet 24h Active Hydrochlorothiazide 25 MG Orally Once a day 1 tablet in the morning 24h September, 90 days Active Magnesium Active Melatonin 5 MG 1 tablet at bedtime as needed with food Active Fish Oil 1000 MG Orally Once a day 2 capsule 24h Active Abilify 30 MG Orally Once a day 1 tablet 24h Nov, Active Advair Diskus 100-50 MCG/DOSE Inhalation Twice a day 1 puff 12h Active Calcium 600 MG Orally Once a day 1 tablet with meals 24h 30 days Active Vitamin D 2000 UNIT Orally Once a day 1 tablet 24h Active Premarin 0.9 MG Orally Once a day 1 tablet 24h Active Multivitamin Gummies Adult Active Loxapine Succinate 5 MG Orally at night 1 capsule Oct, Active Triamcinolone Acetonide 0.1 % Externally Twice a day 1 application to affected area 12h Jul, 7 days Active Cymbalta 60 MG Orally Once a day 1 Capsule 24h Active Permethrin 5 % Externally Apply from neck to toe at bed time. Leave for 8-10 hours then shower off in am. as directed Oct, 1 days Active Linzess 145 MCG Orally Once a day 1 capsule 24h Jun, Mar, 90 days Active Trazodone HCl 100 MG Orally at night as needed for sleep 1-2 tab Jun, Active Trihexyphenidyl HCl 2 MG Orally Three times a day 1 tablet 8h September, 30 days Active Albuterol Sulfate 108 (90 Base) MCG/ACT Inhalation every 4-6 hrs 1 puff as needed May, Active RESULTS No Results PROCEDURES Procedure Date Ordered Result Body Site [facility]ISIT ESTABLISHED PATIENT November 27, 2017 INSTRUCTIONS MEDICATIONS ADMINISTERED No Known Medications MEDICAL (GENERAL) HISTORY Type Description Date Medical History Renal insuficiency Medical History Symptomatic menopausal Medical History PTSD Medical History Bipolar Medical History Mitral Valve prolapse Medical History mixed hyperlipidemia Medical History COPD- Dr. Pollock Medical History Dementia Medical History colonoscopy- about 5 yrs ago- denies polyps Medical History pharyngeal dysphagia Medical History chronic fatigue Medical History hyperlipidemia Surgical History Stimulator 2-16-16 Surgical History Disectomy 1991 Surgical History Breast Reduction 1998 Surgical History Left hand carpal surgery 1992 Surgical History Hysterectomy 05/02 Surgical History tubes and ovaries 04/16/10 Surgical History Bladder lift 04/16/10 Surgical History Gall Bladder Surgical History Tubalization Hospitalization History [facility] 12/2014 Hospitalization History Obstructive Airway Disease, Mood disorder, cough-[facility] 07/02/15 Hospitalization History Bronchitis- [facility] 06/2016
--- OUTSIDE RECORDS SUMMARY | 2018-02-03 08:39 | XMS REPORT ---
Author Author MURIEL OROZCO [facility] Address [address] [place] [address] Care Team Providers Care Senior Security Architect Name Role Phone MURIEL OROZCO Unavailable PROBLEMS Type Condition ICD9-CM Code [id number] Code Onset Dates Condition Status SNOMED Code Problem Slow transit constipation K59.01 Active 49957133 Problem Bipolar disorder, current episode mixed, mild F31.61 Active 925103551 Problem Chronic obstructive pulmonary disease, unspecified COPD type J44.9 Active 83584292 Problem Bipolar II disorder F31.81 Active 17937795 Problem Post-traumatic stress disorder, chronic F43.12 Active 44413741 Problem Bipolar affective disorder, currently manic, mild F31.11 Active 863606451 Problem Lumbago with sciatica, left side M54.42 Active 132574923 Problem Essential hypertension I10 Active 58776708 Problem Other chronic pain G89.29 Active 35323584 Problem Bipolar disorder, in partial remission, most recent episode mixed F31.77 Active 64223304 Problem Paresthesias R20.2 Active 70819238 Problem Irritable bowel syndrome with both constipation and diarrhea K58.2 Active 40750907 ALLERGIES No Information ENCOUNTERS Encounter Location Date Diagnosis [facility] [id number] [place] [address] 76385- 1191 Jan, [facility] [id number] [place] [address] 11331- 6080 Jan, [facility] [id number] [place] [address] 94909- 8452 Jan, [facility] [id number] [place] [address] 55740- 8699 Dec, [facility] [id number] [place] [address] 47648- 9736 Nov, Bipolar II disorder F31.81 and Post-traumatic stress disorder, chronic F43.12 [facility] [id number] [place] [address] 02729- 7596 Nov, Essential hypertension I10 ; Lymph node enlargement R59.9 ; Paresthesias R20.2 ; Irritable bowel syndrome with both constipation and diarrhea K58.2 ; Lumbago with sciatica, left side M54.42 and Other chronic pain G89.29 [facility] [id number] [place] [address] 74333 2548 Nov, Bipolar disorder, in partial remission, most recent episode mixed F31.77 [facility] [id number] [place] [address] 73756- 0208 Oct, Bipolar disorder, in partial remission, most recent episode mixed F31.77 [facility] [id number] [place] [address] 89961 -4021 Oct, Scabies B86 [facility] [id number] [place] [address] 48738- 5251 Oct, Bipolar disorder, in partial remission, most recent episode mixed F31.77 [facility] [id number] [place] [address] 91394- 5661 Oct, [facility] [id number] [place] [address] 18245- 0028 Oct, Bipolar II disorder F31.81 and Post-traumatic stress disorder, chronic F43.12 [facility] [id number] [place] [address] 36263 -0297 Oct, Scabies B86 [facility] [id number] [place] [address] 49351- 7576 Oct, [facility] [id number] [place] [address] 45968- 3846 September, Bipolar II disorder F31.81 and Post-traumatic stress disorder, chronic F43.12 [facility] [id number] [place] [address] 18617- 2031 September, Bipolar disorder, in partial remission, most recent episode mixed F31.77 [place] [address] 66236- 6022 September, COPD exacerbation J44.1 and Elevated blood pressure reading R03.0 [place] [address] 66644- 0865 September, [place] [address] 38811- 5491 September, Pain in left ankle and joints of left foot M25.572 ; Dermatitis L30.9 and Other chronic pain G89.29 [facility] [id number] [place] [address] 92786- 4386 Aug, Right elbow pain M25.521 and Elevated blood pressure reading R03.0 [place] [address] 42341- 6823 Aug, Bipolar disorder, current episode mixed, mild F31.61 and BMI 40.0-44.9, adult Z68.41 [place] [address] 77216- 8975 Aug, [place] [id number] [place] [address] 06822- 3871 Aug, Bipolar II disorder F31.81 and Post-traumatic stress disorder, chronic F43.12 [facility] [id number] [place] [address] 13658- 7221 Jul, Elevated blood pressure reading R03.0 [place] [address] 53159- 0632 Jul, Bipolar II disorder F31.81 and Post-traumatic stress disorder, chronic F43.12 [facility] [place] [id number] [place] [address] 34236- 1251 Jul, Bipolar disorder, current episode mixed, mild F31.61 [facility] [id number] [place] [address] 43578 -9440 12 Jul, 2017 Right foot pain M79.671 ; Allergic contact dermatitis, unspecified trigger L23.9 ; Contusion of right foot, initial encounter S90.31XA and BMI 40.0-44.9, adult Z68.41 [facility] [address] 28815 -5642 02 Jul, 2017 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 [place] [address] 16041- 3632 Jul, [place] [address] 51850- 7128 15 Jul, 2017 Bipolar disorder, current episode mixed, mild F31.61 [place] [address] 26616- 2402 15 Jul, 2017 Bipolar II disorder F31.81 ; Post-traumatic stress disorder , chronic F43.12 and Memory change R41.3 [facility] [place] [id number] [place] [address] 82484- 6965 14 Jul, 2017 Elevated blood pressure reading R03.0 ; Chronic obstructive pulmonary disease, unspecified COPD type J44.9 ; Long-term use of high-risk medication Z79.899 and Cognitive decline R41.89 [facility] [place] [id number] [place] [address] 46819- 9692 06 Jul, 2017 Elevated blood pressure reading R03.0 [facility] [id number] [place] [address] 59019- 0693 05 Jul, 2017 [place] [address] 40202- 5261 01 Jul, 2017 Bipolar II disorder F31.81 ; Post-traumatic stress disorder , chronic F43.12 and Memory change R41.3 [place] [address] 11556- 4609 Jun, [facility] [id number] [place] [address] 67888- 3484 Jun, Bipolar II disorder F31.81 ; Post-traumatic stress disorder , chronic F43.12 and Memory change R41.3 [facility] [id number] [place] [address] 90231- 6347 Jun, Localized swelling, mass or lump of neck R22.1 ; Slow transit constipation K59.01 and Elevated blood pressure reading R03.0 [facility] [id number] [place] [address] 20192- 3900 Jun, [facility] [place] [id number] [place] [address] 18854- 2394 Jun, Bipolar affective disorder, currently manic, mild F31.11 [facility] [place] [id number] [place] [address] 55143 -0473 15 May, 2017 [facility] [place] [id number] [place] [address] 42707 -0865 May, [place] [id number] [place] [address] 67656- 8255 May, Bipolar II disorder F31.81 ; Post-traumatic stress disorder , chronic F43.12 and Memory change R41.3 [facility] [id number] [place] [address] 18967- 2251 May, [facility] [id number] [place] [address] 38466- 8896 08 May, 2017 [place] [id number] [place] [address] 92399- 6508 05 May, 2017 Bipolar affective disorder, currently manic, mild F31.11 [facility] [id number] [place] [address] 54891- 3153 May, [facility] [id number] [place] [address] 81271 -6260 May, Localized swelling, mass or lump of neck R22.1 and Localized swelling, mass and lump, head R22.0 [facility] [id number] [place] [address] 04627- 5372 Apr, [facility] [id number] [place] [address] 34950- 8043 Apr, Bipolar affective disorder, currently manic, mild F31.11 [facility] [id number] [place] [address] 92395- 6615 Apr, Bipolar II disorder F31.81 [facility] [id number] [place] [address] 32886- 7454 Apr, [facility] [id number] [place] [address] 66428- 0922 Apr, Bipolar affective disorder, currently manic, mild F31.11 [facility] [id number] [place] [address] 02719- 5776 Apr, Actinic keratosis L57.0 [facility] [id number] [place] [address] 62246- 4342 Apr, Bipolar affective disorder, currently manic, mild F31.11 [facility] [id number] [place] [address] 53840- 7168 Apr, [facility] [id number] [place] [address] 71085 -8631 Mar, Allergic contact dermatitis, unspecified trigger L23.9 and Right leg pain M79.604 [facility] [id number] [place] [address] 46634- 9892 Mar, [facility] [id number] [place] [address] 08389- 9838 Mar, Bipolar II disorder F31.81 ; Post-traumatic stress disorder , chronic F43.12 and Memory change R41.3 [facility] [id number] [place] [address] 16445- 2575 Mar, Actinic keratosis L57.0 [facility] [id number] [place] [address] 46414- 9774 Jan, Bipolar II disorder F31.81 ; Post-traumatic stress disorder , chronic F43.12 and Memory change R41.3 [facility] [address] [address]- 6781 Jan, Bipolar affective disorder, currently manic, mild F31.11 [facility] [id number] [place] [address] 19381- 1662 13 Jan, 2017 Bipolar affective disorder, currently manic, mild F31.11 [facility] [id number] [place] [address] 28121- 2483 Jan, Bipolar II disorder F31.81 ; Post-traumatic stress disorder , chronic F43.12 and Memory change R41.3 [facility] [id number] [place] [address] 65908- 6401 Dec, Bipolar II disorder F31.81 ; Post-traumatic stress disorder , chronic F43.12 and Memory change R41.3 [facility] [id number] [place] [address] 06735- 6770 Dec, Bipolar affective disorder, currently manic, mild F31.11 [facility] [address] [address]- 2998 Dec, Bipolar affective disorder, currently manic, mild F31.11 [facility] [address] [address]- 5138 Dec, Post-traumatic stress disorder, chronic F43.12 [facility] [id number] [place] [address] 58014- 6099 Dec, Bipolar II disorder F31.81 ; Post-traumatic stress disorder , chronic F43.12 and Memory change R41.3 [facility] [id number] [place] [address] 37899- 0730 Dec, Post-traumatic stress disorder, chronic F43.12 [facility] [address] [address]- 4285 Nov, [facility] [id number] [place] [address] 53388- 8793 Nov, Bipolar II disorder F31.81 ; Post-traumatic stress disorder , chronic F43.12 and Memory change R41.3 [facility] [address] [address]- 0843 Nov, [facility] [id number] [place] [address] 383094- 6023 Nov, Post-traumatic stress disorder, chronic F43.12 and Bipolar II disorder F31.81 [facility] [id number] [place] [address] 39614- 3316 Nov, Actinic keratosis L57.0 [facility] [id number] [place] [address] 64754- 3235 Oct, Bipolar II disorder F31.81 ; Post-traumatic stress disorder , chronic F43.12 and Memory change R41.3 [facility] [id number] [place] [address] 05930- 6992 Oct, Post-traumatic stress disorder, chronic F43.12 ; Bipolar II disorder F31.81 and Memory change R41.3 [facility] [address] [address]- 4922 Oct, Bipolar II disorder F31.81 ; Post-traumatic stress disorder , chronic F43.12 and Memory change R41.3 [facility] [address] [address]- 5725 Oct, Actinic keratosis L57.0 [facility] [address] [address]- 2993 September, Bipolar II disorder F31.81 ; Post-traumatic stress disorder , chronic F43.12 and Memory change R41.3 [place] [address] [address]- 4231 September, Bipolar II disorder F31.81 ; Post-traumatic stress disorder , chronic F43.12 and Memory change R41.3 [place] [address] [address]- 2272 September, Post-traumatic stress disorder, chronic F43.12 ; Bipolar II disorder F31.81 and Memory change R41.3 [place] [address] [address]- 3061 Jul, Bipolar II disorder F31.81 ; Post-traumatic stress disorder , chronic F43.12 and Memory change R41.3 [place] [address] [address]- 8428 Jul, Bipolar II disorder F31.81 ; Post-traumatic stress disorder , chronic F43.12 and Memory change R41.3 [place] [id number] [place] [address] 15808- 3444 Jul, Bipolar II disorder F31.81 ; Post-traumatic stress disorder , chronic F43.12 and Memory change R41.3 [place] [id number] [place] [address] 33015- 9059 Jul, Post-traumatic stress disorder, chronic F43.12 ; Bipolar II disorder F31.81 and Memory change R41.3 [place] [id number] [place] [address] 16505- 2409 Jul, Tear of medial meniscus of right knee, unspecified tear type , unspecified whether old or current tear, initial encounter S83.241A [facility] [id number] [place] [address] 70005- 6418 Jul, Bipolar II disorder F31.81 ; Post-traumatic stress disorder , chronic F43.12 and Memory change R41.3 [facility] [id number] [place] [address] 11776- 5660 07 Jul, 2016 Shortness of breath R06.02 ; Mixed hyperlipidemia E78.2 and Chronic fatigue R53.82 [place] [id number] [place] [address] 78112- 1207 07 Jul, 2016 Bipolar II disorder F31.81 ; Post-traumatic stress disorder , chronic F43.12 and Memory change R41.3 [place] [id number] [place] [address] 67476- 1510 Jul, [place] [id number] [place] [address] 24258- 7400 Jun, Bipolar II disorder F31.81 ; Post-traumatic stress disorder , chronic F43.12 and Memory change R41.3 [facility] [id number] [place] [address] 37126- 2943 Jun, Post-traumatic stress disorder, chronic F43.12 ; Bipolar II disorder F31.81 and Memory change R41.3 [facility] [id number] [place] [address] 74857- 2744 Jun, Right anterior knee pain M25.561 ; Shortness of breath R06.02 and Bronchiolitis J21.9 [place] [id number] [place] [address] 21322- 8239 Jun, [place] [id number] [place] [address] 25438- 1438 Jun, Bipolar II disorder F31.81 ; Post-traumatic stress disorder , chronic F43.12 and Memory change R41.3 [place] [id number] [place] [address] 77777- 5038 Jun, [place] [id number] [place] [address] 81469- 2508 Jun, Bipolar II disorder F31.81 ; Post-traumatic stress disorder , chronic F43.12 and Memory change R41.3 [place] [id number] [place] [address] 64139- 3514 May, [facility] [address] [address] 2546 May, [facility] [id number] [place] [address] 57928 2546 May, [facility] [address] [place] [address] 18059- 1256 May, Right anterior knee pain M25.561 ; Cough R05 ; Skin lesion of right arm L98.9 and Lesion of skin of face L98.9 [facility] [id number] [address]- 5166 May, [facility] [id number] [place] [address] 92569- 6176 May, Post-traumatic stress disorder, chronic F43.12 ; Memory change R41.3 and Bipolar I disorder, most recent episode manic F31.10 [facility] [id number] [place] [address] 09605- 8596 May, [facility] [id number] [place] [address] 16802- 0054 May, Right anterior knee pain M25.561 [facility] [id number] [address] 2546 May, [facility] [id number] [place] [address] 79995- 1375 Apr, Bipolar II disorder F31.81 ; Post-traumatic stress disorder , chronic F43.12 and Memory change R41.3 [facility] [id number] [address]- 5006 Apr, Bipolar II disorder F31.81 ; Post-traumatic stress disorder , chronic F43.12 and Memory change R41.3 [facility] [id number] [address]- 1316 Apr, Post-traumatic stress disorder, chronic F43.12 ; Bipolar II disorder F31.81 and Memory change R41.3 [place] [id number] [place] [address] 49203- 2705 Mar, Bipolar II disorder F31.81 ; Post-traumatic stress disorder , chronic F43.12 and Memory change R41.3 [place] [id number] [place] [address] 96494- 1229 Mar, Memory change R41.3 ; Confusion R41.0 and Dizziness R42 [place] [id number] [place] [address] 52737- 5105 Mar, Memory change R41.3 ; Encounter for immunization Z23 and Fatigue, unspecified type R53.83 [place] [id number] [place] [address] 33012- 5413 Mar, Bipolar II disorder F31.81 ; Post-traumatic stress disorder , chronic F43.12 and Memory change R41.3 [place] [id number] [place] [address] 75367- 0646 Jan, Bipolar II disorder F31.81 ; Post-traumatic stress disorder , chronic F43.12 and Memory change R41.3 [place] [id number] [place] [address] 24066- 2608 Jan, Post-traumatic stress disorder, chronic F43.12 ; Bipolar II disorder F31.81 ; Anxiety disorder, unspecified F41.9 and Memory change R41.3 [place] [id number] [place] [address] 64283- 7572 15 Feb, 2016 Bipolar II disorder F31.81 ; Post-traumatic stress disorder , chronic F43.12 and Memory change R41.3 [place] [id number] [place] [address] 07827- 4641 Dec, Bipolar II disorder F31.81 ; Post-traumatic stress disorder , chronic F43.12 and Memory change R41.3 [place] [id number] [place] [address] 17040- 0996 16 Jan, 2016 Memory loss R41.3 [facility] [address] [address]- 9073 Dec, Bipolar II disorder F31.81 ; Post-traumatic stress disorder , chronic F43.12 and Memory change R41.3 [facility] [id number] [place] [address] 41704- 1433 Nov, Bipolar II disorder F31.81 and Post-traumatic stress disorder, chronic F43.12 [facility] [id number] [place] [address] 16977- 6917 Nov, Bipolar II disorder F31.81 ; Post-traumatic stress disorder , chronic F43.12 and Memory change R41.3 [facility] [id number] [place] [address] 33791- 6904 Oct, Post-traumatic stress disorder, chronic F43.12 and Bipolar disorder, unspecified F31.9 [facility] [id number] [place] [address] 82306- 3547 Oct, Bipolar II disorder F31.81 ; Post-traumatic stress disorder , chronic F43.12 and Memory change R41.3 [facility] [id number] [place] [address] [id number] Oct, Dental examination Z01.20 [facility] [id number] [place] [address] 48926- 2948 September, Bipolar II disorder F31.81 ; Post-traumatic stress disorder , chronic F43.12 and Memory change R41.3 [facility] [id number] [place] [address] 91305- 1436 Aug, Bipolar II disorder F31.81 and Post-traumatic stress disorder, chronic F43.12 [facility] [address] [address]- 8582 Aug, Bipolar II disorder F31.81 and Post-traumatic stress disorder, chronic F43.12 [facility] [id number] [place] [address] 40349- 6344 Jul, Bipolar II disorder F31.81 and Post-traumatic stress disorder, chronic F43.12 [facility] [id number] [place]- 8243 Jul, [facility] [id number] [place] [address] 839643- 3802 Jul, [facility] [address] [place] [address]1513- 9802 Jul, Post-traumatic stress disorder, chronic F43.12 and Bipolar disorder, unspecified F31.9 [place] [address] [place] [id number] [place] [address]- 2335 Jun, Bipolar II disorder F31.81 and Post-traumatic stress disorder, chronic F43.12 [place] [address] [id number] [place]- 0077 Jun, Post-traumatic stress disorder, chronic F43.12 and Bipolar disorder, unspecified F31.9 [place] [id number] [place] [address] 86257- 3249 Jun, [place] [address] [place] [address]- 7856 Jun, Pharyngeal dysphagia R13.13 ; Hoarseness R49.0 and Cough R05 [place] [id number] [place] [address] 67869- 7914 Jun, Post-traumatic stress disorder, chronic F43.12 and Bipolar disorder, unspecified F31.9 [place] [address] [place] [id number] [place] [address] 78975- 1939 May, Cough R05 [place] [address] [place] [id number] [place]- 5197 May, Post-traumatic stress disorder, chronic F43.12 and Bipolar disorder, unspecified F31.9 [place] [address] [place] [id number] [place] [address] 62450- 8775 May, Cough R05 [facility] [address] [address]- 0476 May, [facility] [address] [address] May, Dental examination Z01.20 [facility] [id number] [place] [address] 87461- 5243 15 May, 2015 Bipolar II disorder F31.81 and Post-traumatic stress disorder, chronic F43.12 [facility] [id number] [place] [id number] May, [facility] [id number] [place] [id number]- [address] 14 May, 2015 Bipolar II disorder F31.81 and Anxiety disorder, unspecified F41.9 [facility] [id number] [place] [phone]- [address] May, Memory change R41.3 and History of renal insufficiency syndrome Z87.448 [facility] [id number] [place] [id number]- [id number] May, 2015 Memory change R41.3 ; Dry mouth R68.2 and History of renal insufficiency syndrome Z87.448 [facility] [address] [address] May, Bipolar II disorder F31.81 and Post-traumatic stress disorder, chronic F43.12 [facility] [id number] [address] Mar, Bipolar disorder, unspecified F31.9 and Generalized anxiety disorder F41.1 [facility] [id number] [place] [address] 21426- 1115 Mar, Bipolar II disorder F31.81 [facility] [id number] [place] [address] 84534- 7717 Mar, Encounter for immunization Z23 [facility] [id number] [address] Mar, [facility] [id number] [place] [address] 53684- 1969 Mar, Bipolar II disorder F31.81 [facility] [id number] [place] [address] 738881- 9097 Mar, [facility] [id number] [place] [address] 29393- 4984 Jan, Bipolar disorder, unspecified 296.80 and Anxiety disorder 300.00 [facility] [id number] [place] [address] 60985- 7925 Jan, [facility] [id number] [place] [address] 92966- 0422 Jan, Bipolar disorder, unspecified 296.80 and Anxiety disorder 300.00 [facility] [id number] [place] [address] 49363- 4650 Dec, Bipolar disorder, unspecified 296.80 and Anxiety disorder 300.00 [facility] [id number] [place] [address] 61525- 3102 Dec, [facility] [id number] [place] [address] 83265- 7891 Dec, Bipolar disorder, unspecified 296.80 and Anxiety disorder 300.00 [facility] [id number] [place] [address] 37952- 8605 Nov, Bipolar disorder, unspecified 296.80 and Anxiety disorder 300.00 [facility] [id number] [place] [address] 18066- 2375 Oct, Bipolar disorder, unspecified 296.80 and Anxiety disorder 300.00 [facility] [id number] [place] [address] 55923- 9710 Oct, Anxiety 300.00 and Bipolar disorder, unspecified 296.80 [facility] [id number] [place] [address] 35459- 3940 September, Bipolar disorder, unspecified 296.80 and Anxiety disorder 300.00 [facility] [id number] [place] [address] 19065- 5217 September, [facility] [id number] [place] [address] 50856- 0907 Aug, Cough 786.2 [facility] [id number] [place] [address] 69311- 2437 Aug, [facility] [id number] [place] [address] 55765- 1830 Aug, [facility] [id number] [place] [address], [place] [address]- 9076 Jul, [facility] [id number] [place] [address] 509327- 4244 Jul, [facility] [id number] [place] [address] 39030- 3699 Jul, [facility] [id number] [place] [address] 93157- 9809 Jul, [facility] [id number] [place] [address] 29412- 6402 Jul, [facility] [address] [address] 2176 Jul, [facility] [address] [address]- 0444 Jun, [facility] [address] [address]- 6430 Jun, [facility] [id number] [place] [address] 89085- 1713 Jun, [facility] [address] [address] Jun, [facility] [id number] [place] [address] 40413- 0177 May, [facility] [place] [facility] [address] [id number] [place] [address]- 4298 May, [facility] [place] [facility] [address] [id number] [place] [address]- 5988 May, [facility] [place] [facility] [address] [id number] [place] 5130 May, [facility] [place] [facility] [address] [id number] [place] [address]958 Apr, [facility] [place] [facility] [address] [id number] [place] [address]- 6644 Apr, [facility] [place] [facility] [address] [id number] [place] [address]- 7610 Mar, [facility] [place] [facility] [address] [id number] [place] [address]- 8476 Mar, [facility] [place] [facility] [address] [id number] [place] [address]- 8122 Mar, [facility] [place] [facility] [address] [id number] [place] [address]- 9966 Mar, [facility] [place] [facility] [address] [id number] [place] [address]- 5167 Mar, [facility] [place] [facility] [address] [id number] [place] [address]- 8104 Mar, [facility] [place] [facility] [address] [id number] [address] 1391 Jan, [facility] [place] [facility] [address] [id number] [place] [address]- 8684 Jan, [facility] [place] [facility] [address] [id number] [place] [address]- 8550 Jan, [facility] [place] [facility] [address] [id number] [place] [address]- 0489 Jan, [facility] [place] [facility] [address] [id number] [place] [address]- 7325 Jan, [facility] [place] [facility] [address] [id number] [place] [address]- 3070 Jan, [facility] [place] [facility] [address] [id number] [place] [address]- 8832 Dec, [facility] [place] [facility] [address] [id number] [place] [address]- 6846 Dec, [facility] [place] [facility] [address] [id number] [place] [address]- 9876 Dec, [facility] [place] [facility] [address] [id number] [place] [address]- 5439 Dec, [facility] [place] [facility] [address] [id number] [place] [address]- 2456 Dec, [facility] [place] [facility] [address] [id number] [place] [address]- 7953 Dec, [facility] [place] [facility] [address] [id number] [place] [address]- 9105 Nov, [facility] [place] [facility] [address] [id number] [place] [address]- 4090 Nov, [facility] [place] [facility] [address] [id number] [place] [address]- 2460 Nov, [facility] [place] [facility] [address] [id number] [place] [address]- 7684 Nov, [facility] [place] [facility] [address] [id number] [place] [address]- 3211 Nov, [facility] [place] [facility] [address] [id number] [place] [address]- 9421 Nov, [facility] [place] [facility] [address] [id number] [place] [address]- 5445 Nov, [facility] [place] [facility] [address] [id number] [place] [address]- 4410 Nov, [facility] [place] [facility] [address] [id number] [place] [address]- 6607 Nov, [facility] [place] [facility] [address] [id number] [place] [address]- 9555 Nov, [facility] [place] [facility] [address] [id number] [place] [address]- 0946 September, [facility] [place] [facility] [address] [id number] [place] [address]- 0254 September, [facility] [place] [facility] [address] [id number] [place] [address]- 0093 September, [facility] [place] [facility] [address] [id number] [place] [address]- 1177 September, [facility] [place] [facility] [address] [id number] [place] [address]- 1029 September, [facility] [place] [facility] [address] [id number] [place] [address]- 9033 September, [facility] [place] [facility] [address] [id number] [place] [address]- 1994 September, [facility] [place] [facility] [address] [id number] [place] [address]- 2989 September, [facility] [place] [facility] [address] [id number] [place] [address]- 6680 Aug, [facility] [place] [facility] [address] [id number] [place] [address]- 5235 Aug, [facility] [place] [facility] [address] [id number] [place] [address]- 0024 Aug, [facility] [place] [facility] [address] [id number] [place] [address]- 6578 Aug, [facility] [place] [facility] [address] [id number] [place] [address]- 5866 Jul, [facility] [place] [facility] [address] [id number] [address]- 1622 Jul, [facility] [place] [facility] [address] [id number] [place] [address]- 5086 Jul, [facility] [place] [facility] [address] [id number] [place] [address]- 2016 Jul, [facility] [place] [facility] [address] [id number] [place] [address]- 8396 Jul, [facility] [place] [facility] [address] [id number] [place] [address]- 9266 Jul, [facility] [place] [facility] [address] [id number] [place] 4696 Jul, [facility] [place] [facility] [address] [id number] [place] [address]- 7926 Jul, [facility] [place] [facility] [address] [facility] [id number] [place] [address]- 7518 Jul, [facility] [place] [facility] [address] [facility] [id number] [place] [address]- 5196 Jul, [facility] [place] [facility] [address] [facility] [id number] [place] [address]- 4250 Jul, [facility] [place] [facility] [address] [facility] [id number] [place] [address]- 4015 Jun, [facility] [place] [facility] [address] [facility] [id number] [place] [address]- 7946 Jun, [facility] [place] [facility] [address] [id number] [place] [address]- 4856 Jun, [facility] [place] [facility] [address] [id number] [place] 8736 Jun, [facility] [place] [facility] [address] [facility] [id number] [place] 7138 May, [facility] [place] [facility] [address] [facility] [id number] [place] [address]- 8817 May, [facility] [place] [facility] [address] [id number] [place] [address]- 2494 Apr, [facility] [place] [facility] [address] [id number] [place] [address]- 3288 Apr, [facility] [place] [facility] [address] [id number] [place] [address]- 6059 Apr, [facility] [place] [facility] [address] [id number] [place] [address]- 7617 Apr, [facility] [place] [facility] [address] [id number] [place] [address]- 5237 Apr, [facility] [place] [facility] [address] [id number] [place] [address]- 4838 Apr, [facility] [place] [facility] [address] [id number] [place] [address]- 7166 Apr, [facility] [place] [facility] [address] [id number] [address]- 5099 Apr, [facility] [place] [facility] [address] [id number] [place] [address]- 6321 Apr, [facility] [place] [facility] [address] [id number] [address]- 6095 Apr, [facility] [place] [facility] [address] [id number] [address]- 0203 Apr, [facility] [place] [facility] [address] [id number] [address]- 9507 Apr, [facility] [place] [facility] [address] [id number] [place] [address]- 1311 Mar, [facility] [place] [facility] [address] [id number], [place] [address]- 0285 Mar, [facility] [place] [facility] [address] [id number] [address]- 8717 Mar, [facility] [place] [facility] [address] [id number] [address]- 6731 Dec, [facility] [address] [facility] [id number] [address]- 1784 Dec, [facility] [id number] [address] 2546 Dec, [facility] [id number] [address]- 4154 Oct, [facility] [id number] [address]- 2430 May, [facility] [id number] [address]- 7447 May, [facility] [id number] [address]- 6386 May, [facility] [id number] [address]- 1070 Dec, IMMUNIZATIONS No Known Immunizations SOCIAL HISTORY Never Assessed REASON FOR VISIT PLAN OF CARE VITAL SIGNS MEDICATIONS Medication Instructions Dosage Frequency Start Date End Date Duration Status Permethrin 5 % Externally Apply from neck to toe at bed time. Leave for 8-10 hours then shower off in am. as directed Oct, 1 days Active RESULTS No Results PROCEDURES No Known procedures INSTRUCTIONS MEDICATIONS ADMINISTERED No Known Medications MEDICAL [...] fatigue Medical History hyperlipidemia Surgical History Stimulator 2- Surgical History Disectomy 1991 Surgical History Breast Reduction 1998 Surgical History Left hand carpal surgery 1992 Surgical History Hysterectomy 05/02 Surgical History tubes and ovaries 04/16/10 Surgical History Bladder lift 04/16/10 Surgical History Gall Bladder Surgical History Tubalization Hospitalization History [facility] 12/2014 Hospitalization History Obstructive Airway Disease, Mood disorder, cough-[facility] 07/02/15 Hospitalization History Bronchitis- [facility] 06/2016
--- OUTSIDE RECORDS SUMMARY | 2018-02-03 08:40 | XMS REPORT ---
Author Author ALEXANDRA RAMIREZ Organization [facility] Address [address] [place] [address] Care Team Providers Care Medical Legal Investigator Name Role Phone ALEXANDRA RAMIREZ Unavailable PROBLEMS Type Condition ICD9-CM Code QLF42-RS Code Onset Dates Condition Status SNOMED Code Problem Slow transit constipation K59.01 Active 49775017 Problem Bipolar disorder, current episode mixed, mild F31.61 Active 817284747 Problem Chronic obstructive pulmonary disease, unspecified COPD type J44.9 Active 31982264 Problem Bipolar II disorder F31.81 Active 68126896 Problem Post-traumatic stress disorder, chronic F43.12 Active 74861214 Problem Bipolar affective disorder, currently manic, mild F31.11 Active 160867404 Problem Lumbago with sciatica, left side M54.42 Active 513739367 Problem Essential hypertension I10 Active 04211897 Problem Other chronic pain G89.29 Active 96842337 Problem Bipolar disorder, in partial remission, most recent episode mixed F31.77 Active 54223680 Problem Paresthesias R20.2 Active 80232739 Problem Irritable bowel syndrome with both constipation and diarrhea K58.2 Active 32964561 ALLERGIES No Information ENCOUNTERS Encounter Location Date Diagnosis [facility] [id number] [place] [address] 25024- 5100 Jan, [facility] [id number] [place] [address] 11970- 2037 Jan, [facility] [id number] [place] [address] 72339- 4857 Jan, [facility] [id number] [place] [address] 87660- 1287 Dec, [facility] [id number] [place] [address] 18028- 2831 Nov, Bipolar II disorder F31.81 and Post-traumatic stress disorder, chronic F43.12 [facility] [id number] [place] [address] 48529- 3276 Nov, Essential hypertension I10 ; Lymph node enlargement R59.9 ; Paresthesias R20.2 ; Irritable bowel syndrome with both constipation and diarrhea K58.2 ; Lumbago with sciatica, left side M54.42 and Other chronic pain G89.29 [facility] [id number] [place] [address] 87516- 8343 Nov, Bipolar disorder, in partial remission, most recent episode mixed F31.77 [place] [id number] [place] [address] 69581- 3629 Oct, Bipolar disorder, in partial remission, most recent episode mixed F31.77 [facility] [id number] [place] [address] 42155 -9906 Oct, Scabies B86 [facility] [id number] [place] [address] 37869- 4925 Oct, Bipolar disorder, in partial remission, most recent episode mixed F31.77 [facility] [id number] [place] [address] 58118- 0476 Oct, [facility] [id number] [place] [address] 43901- 8840 Oct, Bipolar II disorder F31.81 and Post-traumatic stress disorder, chronic F43.12 [facility] [id number] [place] [address] 70562 -9182 Oct, Scabies B86 [facility] [id number] [place] [address] 29684- 2329 Oct, [facility] [id number] [place] [address] 19919- 1155 September, Bipolar II disorder F31.81 and Post-traumatic stress disorder, chronic F43.12 [facility] [address] 70386- 4605 September, Bipolar disorder, in partial remission, most recent episode mixed F31.77 [place] [address] 31748- 3034 September, COPD exacerbation J44.1 and Elevated blood pressure reading R03.0 [place] [address] 28381- 6925 September, [place] [address] 77548- 3713 September, Pain in left ankle and joints of left foot M25.572 ; Dermatitis L30.9 and Other chronic pain G89.29 [place] [address] 72849- 6574 Aug, Right elbow pain M25.521 and Elevated blood pressure reading R03.0 [place] [address] 58728- 3413 Aug, Bipolar disorder, current episode mixed, mild F31.61 and BMI 40.0-44.9, adult Z68.41 [place] [address] 38488- 1833 Aug, [place] [address] 83681- 8098 Aug, Bipolar II disorder F31.81 and Post-traumatic stress disorder, chronic F43.12 [place] [address] 50151- 3415 Jul, Elevated blood pressure reading R03.0 [place] [address] 43037- 1765 Jul, Bipolar II disorder F31.81 and Post-traumatic stress disorder, chronic F43.12 [place] [address] 11434- 1731 Jul, Bipolar disorder, current episode mixed, mild F31.61 [facility] [address] [place] [address] 75538 -5101 12 Jul, 2017 Right foot pain M79.671 ; Allergic contact dermatitis, unspecified trigger L23.9 ; Contusion of right foot, initial encounter S90.31XA and BMI 40.0-44.9, adult Z68.41 [facility] [id number] [place] [address] 12008 -8187 02 Jul, 2017 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 [place] [id number] [place] [address] 45812- 6055 Jul, [address] 18181- 5224 15 Jul, 2017 Bipolar disorder, current episode mixed, mild F31.61 [place] [id number] [place] [address] 20177- 0911 15 Jul, 2017 Bipolar II disorder F31.81 ; Post-traumatic stress disorder , chronic F43.12 and Memory change R41.3 [place] [id number] [place] [address] 74522- 4133 14 Jul, 2017 Elevated blood pressure reading R03.0 ; Chronic obstructive pulmonary disease, unspecified COPD type J44.9 ; Long-term use of high-risk medication Z79.899 and Cognitive decline R41.89 [place] [id number] [place] [address] 06269- 8706 06 Jul, 2017 Elevated blood pressure reading R03.0 [place] [id number] [place] [address] 43328- 6314 05 Jul, [address] 35661- 4762 01 Jul, 2017 Bipolar II disorder F31.81 ; Post-traumatic stress disorder , chronic F43.12 and Memory change R41.3 [place] [id number] [place] [address] 89243- 1627 Jun, [place] [address] [address]- 3243 Jun, Bipolar II disorder F31.81 ; Post-traumatic stress disorder , chronic F43.12 and Memory change R41.3 [place] [address] [address]- 3647 Jun, Localized swelling, mass or lump of neck R22.1 ; Slow transit constipation K59.01 and Elevated blood pressure reading R03.0 [place] [id number] [place] [address] 17168- 3385 Jun, [place] [id number] [place] [address] 45787- 6819 Jun, Bipolar affective disorder, currently manic, mild F31.11 [facility] [place] [id number] [place] [address] 95867 -7704 15 May, 2017 [facility] [place] [id number] [place] [address] 63780 -4065 May, [place] [id number] [place] [address] 19614- 3355 May, Bipolar II disorder F31.81 ; Post-traumatic stress disorder , chronic F43.12 and Memory change R41.3 [place] [address] [address]- 7919 May, [place] [id number] [place] [address] 28643- 4959 May, [place] [address] [place] [address] 96978- 5422 05 May, 2017 Bipolar affective disorder, currently manic, mild F31.11 [place] [id number] [place] [address] 96436- 8672 May, [facility] [place] [id number] [place] [address] 76001 -0459 May, Localized swelling, mass or lump of neck R22.1 and Localized swelling, mass and lump, head R22.0 [facility] [id number] [place] [address] 07338- 5169 Apr, [facility] [id number] [place] [address] 21683- 2909 08 Apr, 2017 Bipolar affective disorder, currently manic, mild F31.11 [place] [id number] [place] [address] 45346- 4106 Apr, Bipolar II disorder F31.81 [facility] [id number] [place] [address] 33192- 0990 Apr, [place] [id number] [place] [address] 30200- 9283 Apr, Bipolar affective disorder, currently manic, mild F31.11 [place] [id number] [place] [address] 45199- 7584 Apr, Actinic keratosis L57.0 [facility] [id number] [place] [address] 06296- 7246 Apr, Bipolar affective disorder, currently manic, mild F31.11 [facility] [id number] [place] [address] 54549- 8505 Apr, [facility] [id number] [place] [address] 59723 -4077 Mar, Allergic contact dermatitis, unspecified trigger L23.9 and Right leg pain M79.604 [facility] [id number] [place] [address] 69979- 2586 Mar, [facility] [address] 19145- 0799 Mar, Bipolar II disorder F31.81 ; Post-traumatic stress disorder , chronic F43.12 and Memory change R41.3 [place] [address] 03189- 4386 Mar, Actinic keratosis L57.0 [facility] [address] [address]- 3031 Jan, Bipolar II disorder F31.81 ; Post-traumatic stress disorder , chronic F43.12 and Memory change R41.3 [facility] [address] [place] [address] 70446- 4158 Jan, Bipolar affective disorder, currently manic, mild F31.11 [facility] [address] [place] [address] 62946- 2051 13 Jan, 2017 Bipolar affective disorder, currently manic, mild F31.11 [place] [id number] [place] [address] 18902- 0664 Jan, Bipolar II disorder F31.81 ; Post-traumatic stress disorder , chronic F43.12 and Memory change R41.3 [place] [address] [place] [address] 36106- 3269 Dec, Bipolar II disorder F31.81 ; Post-traumatic stress disorder , chronic F43.12 and Memory change R41.3 [place] [address] [place] [address] 38971- 6246 Dec, Bipolar affective disorder, currently manic, mild F31.11 [place] [address] [address]- 7804 Dec, Bipolar affective disorder, currently manic, mild F31.11 [place] [address] [place] [address] 21088- 4866 Dec, Post-traumatic stress disorder, chronic F43.12 [facility] [id number] [place] [address] 09346- 5008 Dec, Bipolar II disorder F31.81 ; Post-traumatic stress disorder , chronic F43.12 and Memory change R41.3 [place] [address] [place] [address] 67817- 4894 Dec, Post-traumatic stress disorder, chronic F43.12 [facility] [address], [place] [address]- 8960 Nov, [facility] [id number] [place] [address] 74257- 9941 Nov, Bipolar II disorder F31.81 ; Post-traumatic stress disorder , chronic F43.12 and Memory change R41.3 [facility] [address] [place] [address] 21553- 0135 Nov, [facility] [address] [place] [address] 40749- 6031 Nov, Post-traumatic stress disorder, chronic F43.12 and Bipolar II disorder F31.81 [place] [id number] [place] [address] 83971- 5495 Nov, Actinic keratosis L57.0 [facility] [id number] [place] [address] 20317- 6652 Oct, Bipolar II disorder F31.81 ; Post-traumatic stress disorder , chronic F43.12 and Memory change R41.3 [facility] [address] [place] [address] 76940- 6894 Oct, Post-traumatic stress disorder, chronic F43.12 ; Bipolar II disorder F31.81 and Memory change R41.3 [facility] [address] [address]- 2831 Oct, Bipolar II disorder F31.81 ; Post-traumatic stress disorder , chronic F43.12 and Memory change R41.3 [facility] [address] [address]- 5445 Oct, Actinic keratosis L57.0 [facility] [address] [place] [address] 92428- 4193 September, Bipolar II disorder F31.81 ; Post-traumatic stress disorder , chronic F43.12 and Memory change R41.3 [place] [address], [place] [address]- 8374 September, Bipolar II disorder F31.81 ; Post-traumatic stress disorder , chronic F43.12 and Memory change R41.3 [place] [address], [place] [address]- 6381 September, Post-traumatic stress disorder, chronic F43.12 ; Bipolar II disorder F31.81 and Memory change R41.3 [place] [address] [place] [address] 97485- 6346 Jul, Bipolar II disorder F31.81 ; Post-traumatic stress disorder , chronic F43.12 and Memory change R41.3 [place] [address] [place] [address] 74991- 1556 Jul, Bipolar II disorder F31.81 ; Post-traumatic stress disorder , chronic F43.12 and Memory change R41.3 [place] [address] [place] [address] 53640- 1302 Jul, Bipolar II disorder F31.81 ; Post-traumatic stress disorder , chronic F43.12 and Memory change R41.3 [place] [address] [place] [address] 03979- 5256 Jul, Post-traumatic stress disorder, chronic F43.12 ; Bipolar II disorder F31.81 and Memory change R41.3 [place] [address], [place] [address]- 1506 Jul, Tear of medial meniscus of right knee, unspecified tear type , unspecified whether old or current tear, initial encounter S83.241A [place] [id number] [place] [address] 38965- 1127 Jul, Bipolar II disorder F31.81 ; Post-traumatic stress disorder , chronic F43.12 and Memory change R41.3 [place] [address] [place] [address] 26169- 4225 Jul, Shortness of breath R06.02 ; Mixed hyperlipidemia E78.2 and Chronic fatigue R53.82 [place] [id number] [place] [address] 94548- 7123 07 Jul, 2016 Bipolar II disorder F31.81 ; Post-traumatic stress disorder , chronic F43.12 and Memory change R41.3 [place] [id number] [place] [address] 54040- 9116 Jul, [place] [id number] [place] [address] 94546- 6244 Jun, Bipolar II disorder F31.81 ; Post-traumatic stress disorder , chronic F43.12 and Memory change R41.3 [place] [id number] [place] [address] 48371- 4594 Jun, Post-traumatic stress disorder, chronic F43.12 ; Bipolar II disorder F31.81 and Memory change R41.3 [place] [id number] [place] [address] 18401- 3071 Jun, Right anterior knee pain M25.561 ; Shortness of breath R06.02 and Bronchiolitis J21.9 [place] [id number] [place] [address] 92236- 9081 Jun, [place] [id number] [place] [address] 46528- 9006 Jun, Bipolar II disorder F31.81 ; Post-traumatic stress disorder , chronic F43.12 and Memory change R41.3 [place] [id number] [place] [address] 57167- 4620 Jun, [facility] [id number] [place] [address] 95177- 8904 Jun, Bipolar II disorder F31.81 ; Post-traumatic stress disorder , chronic F43.12 and Memory change R41.3 [place] [id number] [place] [address] 23247- 8908 May, [facility] [id number] [address]- 1006 May, [facility] [id number] [place] [address] 89700- 0516 May, [facility] [id number] [place] [address] 42750 2546 May, Right anterior knee pain M25.561 ; Cough R05 ; Skin lesion of right arm L98.9 and Lesion of skin of face L98.9 [facility] [id number] [place] [address] 20484- 1526 May, [facility] [id number] [place] [address] 07673- 0786 May, Post-traumatic stress disorder, chronic F43.12 ; Memory change R41.3 and Bipolar I disorder, most recent episode manic F31.10 [facility] [id number] [place] [address] 67115- 6626 May, [facility] [id number] [place] [address] 55857- 5171 May, Right anterior knee pain M25.561 [facility] [id number] [place] [address] 31791- 8006 May, [facility] [address] [place] [address] 78563- 3596 Apr, Bipolar II disorder F31.81 ; Post-traumatic stress disorder , chronic F43.12 and Memory change R41.3 [facility] [id number], [place] [address]- 6106 Apr, Bipolar II disorder F31.81 ; Post-traumatic stress disorder , chronic F43.12 and Memory change R41.3 [facility] [id number], [place] [address]- 8426 Apr, Post-traumatic stress disorder, chronic F43.12 ; Bipolar II disorder F31.81 and Memory change R41.3 [place] [address] [place] [address] 80199- 3205 Mar, Bipolar II disorder F31.81 ; Post-traumatic stress disorder , chronic F43.12 and Memory change R41.3 [place] [id number] [place] [address] 81635- 1257 Mar, Memory change R41.3 ; Confusion R41.0 and Dizziness R42 [place] [id number] [place] [address] 13299- 9915 Mar, Memory change R41.3 ; Encounter for immunization Z23 and Fatigue, unspecified type R53.83 [place] [id number] [place] [address] 10007- 5203 Mar, Bipolar II disorder F31.81 ; Post-traumatic stress disorder , chronic F43.12 and Memory change R41.3 [place] [id number] [place] [address] 29895- 3386 Jan, Bipolar II disorder F31.81 ; Post-traumatic stress disorder , chronic F43.12 and Memory change R41.3 [place] [id number] [place] [address] 47615- 4396 Jan, Post-traumatic stress disorder, chronic F43.12 ; Bipolar II disorder F31.81 ; Anxiety disorder, unspecified F41.9 and Memory change R41.3 [place] [id number] [place] [address] 62304- 7703 15 Feb, 2016 Bipolar II disorder F31.81 ; Post-traumatic stress disorder , chronic F43.12 and Memory change R41.3 [place] [id number] [place] [address] 77438- 3119 Dec, Bipolar II disorder F31.81 ; Post-traumatic stress disorder , chronic F43.12 and Memory change R41.3 [place] [id number] [place] [address] 63976- 1316 Dec, Memory loss R41.3 [facility] [address], [place] [address]- 7823 Dec, Bipolar II disorder F31.81 ; Post-traumatic stress disorder , chronic F43.12 and Memory change R41.3 [facility] [id number] [place] [address] 77406- 5483 Nov, Bipolar II disorder F31.81 and Post-traumatic stress disorder, chronic F43.12 [facility] [id number] [place] [address] 18353- 2526 Nov, Bipolar II disorder F31.81 ; Post-traumatic stress disorder , chronic F43.12 and Memory change R41.3 [place] [id number] [place] [address] 35142- 9909 Oct, Post-traumatic stress disorder, chronic F43.12 and Bipolar disorder, unspecified F31.9 [facility] [id number] [place] [address] 22278- 3004 Oct, Bipolar II disorder F31.81 ; Post-traumatic stress disorder , chronic F43.12 and Memory change R41.3 [facility] [id number] [place] [address] [id number] Oct, Dental examination Z01.20 [facility] [address] [place] [address] 91542- 5578 September, Bipolar II disorder F31.81 ; Post-traumatic stress disorder , chronic F43.12 and Memory change R41.3 [facility] [address] [place] [address] 52848- 6928 Aug, Bipolar II disorder F31.81 and Post-traumatic stress disorder, chronic F43.12 [facility] [address] [place] [address] 11332- 9482 Aug, Bipolar II disorder F31.81 and Post-traumatic stress disorder, chronic F43.12 [facility] [address] [place] [address] 28197- 4462 Jul, Bipolar II disorder F31.81 and Post-traumatic stress disorder, chronic F43.12 [facility] [id number] [place] [address] 22965- 5340 Jul, [facility] [id number] [place] [address] 87762- 1410 Jul, [facility] [id number] [place] [address] 71060- 0962 Jul, Post-traumatic stress disorder, chronic F43.12 and Bipolar disorder, unspecified F31.9 [place] [id number] [place] [address] 87970- 9585 Jun, Bipolar II disorder F31.81 and Post-traumatic stress disorder, chronic F43.12 [place] [id number] [place] [address] 62553- 9614 Jun, Post-traumatic stress disorder, chronic F43.12 and Bipolar disorder, unspecified F31.9 [place] [id number] [place] [address] 91062- 6581 Jun, [place] [id number] [place] [address] 59540- 5196 Jun, Pharyngeal dysphagia R13.13 ; Hoarseness R49.0 and Cough R05 [place] [id number] [place] [address] 63256- 7375 Jun, Post-traumatic stress disorder, chronic F43.12 and Bipolar disorder, unspecified F31.9 [place] [id number] [place] [address] 22449- 6389 May, Cough R05 [place] [id number] [place] [address] 17195- 3392 May, Post-traumatic stress disorder, chronic F43.12 and Bipolar disorder, unspecified F31.9 [facility] [id number] [place] [address] 63459- 3724 May, Cough R05 [facility] [address], [place] [address] May, [facility] [id number] [place] [id number] May, Dental examination Z01.20 [facility] [id number] [place] [address] [phone] 15 May, 2015 Bipolar II disorder F31.81 and Post-traumatic stress disorder, chronic F43.12 [facility] [id number] [place] [address] [phone]- [phone] 14 May, 2015 [facility] [address] [address] 14 May, 2015 Bipolar II disorder F31.81 and Anxiety disorder, unspecified F41.9 [facility] [id number] [place] [address] 13713- 2802 May, Memory change R41.3 and History of renal insufficiency syndrome Z87.448 [facility] [id number] [place] [address] 90717- 5857 03 May, 2015 Memory change R41.3 ; Dry mouth R68.2 and History of renal insufficiency syndrome Z87.448 [facility] [id number] [place] [address] 70065- 9662 May, Bipolar II disorder F31.81 and Post-traumatic stress disorder, chronic F43.12 [facility] [id number] [place] [address] 03624- 4430 Mar, Bipolar disorder, unspecified F31.9 and Generalized anxiety disorder F41.1 [facility] [id number] [place] [address] 48583- 9687 Mar, Bipolar II disorder F31.81 [facility] [id number] [place] [address] 46706- 2433 Mar, Encounter for immunization Z23 [facility] [address] [place] [address]- 9067 Mar, [facility] [id number] [place] [address] 69957- 5438 Mar, Bipolar II disorder F31.81 [facility] [id number] [place] [address] 88825- 7746 Mar, [facility] [id number] [place] [address] 640921- 6186 Jan, Bipolar disorder, unspecified 296.80 and Anxiety disorder 300.00 [facility] [id number] [place] [address] 89821- 1041 Jan, [facility] [id number] [place] [address] 306283- 1974 Jan, Bipolar disorder, unspecified 296.80 and Anxiety disorder 300.00 [facility] [id number] [place] [address] 17852- 1819 Dec, Bipolar disorder, unspecified 296.80 and Anxiety disorder 300.00 [facility] [id number] [place] [address] 51641- 4766 Dec, [facility] [id number] [place] [address] 67999- 0888 Dec, Bipolar disorder, unspecified 296.80 and Anxiety disorder 300.00 [facility] [id number] [place] [address] 04060- 6061 Nov, Bipolar disorder, unspecified 296.80 and Anxiety disorder 300.00 [facility] [id number] [place] [address] 39401- 0284 Oct, Bipolar disorder, unspecified 296.80 and Anxiety disorder 300.00 [facility] [id number] [place] [address] 606145- 6665 Oct, Anxiety 300.00 and Bipolar disorder, unspecified 296.80 [facility] [id number] [place] [address] 53994- 0432 September, Bipolar disorder, unspecified 296.80 and Anxiety disorder 300.00 [facility] [address] [place] [address]- 9076 September, [facility] [address] [place] [address]- 9681 Aug, Cough 786.2 [facility] [id number] [place] [address], [place] [address]- 6076 Aug, [facility] [id number] [place] [address], [place] [address]- 5470 Aug, [facility] [id number] [place] [address], [place] [address]- 6844 Jul, [facility] [address] [place] [address]- 2476 Jul, [facility] [id number] [place] [address], [place] [address]- 1928 Jul, [facility] [address] [address]- 9220 Jul, [facility] [address] [place] [address]- 9377 Jul, [facility] [address] [address]- 9082 Jul, [facility] [address] [address]- 6788 Jun, [facility] [id number] [address]- 9816 Jun, [facility] [address] [address]- 8305 Jun, [facility] [address] [address]- 2666 Jun, [facility] [id number] [address]- 6441 May, [facility] [place] [facility] [address] [id number] [place] [address]- 6985 May, [facility] [place] [facility] [address] [id number] [place] [address]- 0703 May, [facility] [place] [facility] [address] [id number] [place] 8002 May, [facility] [place] [facility] [address] [id number] [place] [address]- 6081 Apr, [facility] [place] [facility] [address] [id number] [place] [address]- 7245 Apr, [facility] [place] [facility] [address] [id number] [place] [address]- 3333 Mar, [facility] [place] [facility] [address] [id number] [place] [address]- 7401 Mar, [facility] [place] [facility] [address] [id number] [place] [address]- 7210 Mar, [facility] [place] [facility] [address] [id number] [place] [address]- 5603 Mar, [facility] [place] [facility] [address] [id number] [place] [address]- 1394 Mar, [facility] [place] [facility] [address] [id number], [place] [address]- 0306 Mar, [facility] [place] [facility] [address] [id number], [place] [address]- 0897 Jan, [facility] [place] [facility] [address] [id number] [place] [address]- 2690 Jan, [facility] [place] [facility] [address] [id number], [place] [address]- 0385 Jan, [facility] [place] [facility] [address] [id number] [place] [address]- 4880 Jan, [facility] [place] [facility] [address] [id number] [place] [address]- 0092 Jan, [facility] [place] [facility] [address] [id number] [place] [address]- 0791 Jan, [facility] [place] [facility] [address] [id number] [place] [address]- 7579 Dec, [facility] [place] [facility] [address] [id number] [place] [address]- 5254 Dec, [facility] [place] [facility] [address] [id number] [place] [address]- 5514 Dec, [facility] [place] [facility] [address] [id number] [place] [address]- 4440 Dec, [facility] [place] [facility] [address] [id number] [place] [address]- 4667 Dec, [facility] [place] [facility] [address] [id number] [place] [address]- 2307 Dec, [facility] [place] [facility] [address] [id number] [place] [address]- 6377 Nov, [facility] [place] [facility] [address] [id number] [place] [address]- 3778 Nov, [facility] [place] [facility] [address] [id number] [place] [address]- 9347 Nov, [facility] [place] [facility] [address] [id number] [place] [address]- 6150 Nov, [facility] [place] [facility] [address] [id number] [place] [address]- 0600 Nov, [facility] [place] [facility] [address] [id number] [place] [address]- 4351 Nov, [facility] [place] [facility] [address] [id number] [place] [address]- 6733 Nov, [facility] [place] [facility] [address] [id number] [place] [address]- 4553 Nov, [facility] [place] [facility] [address] [id number] [place] [address]- 0953 Nov, [facility] [place] [facility] [address] [id number] [place] [address]- 2542 Nov, [facility] [place] [facility] [address] [id number] [place] [address]- 9354 September, [facility] [place] [facility] [address] [id number] [place] [address]- 8080 September, [facility] [place] [facility] [address] [id number] [place] [address]- 5429 September, [facility] [place] [facility] [address] [id number] [place] [address]- 7918 September, [facility] [place] [facility] [address] [id number] [place] [address]- 6961 September, [facility] [place] [facility] [address] [id number] [place] [address]- 7274 September, [facility] [place] [facility] [address] [id number] [place] [address]- 0702 September, [facility] [place] [facility] [address] [id number] [place] [address]- 4864 September, [facility] [place] [facility] [address] [id number] [place] [address]- 9888 Aug, [facility] [place] [facility] [address] [id number] [place] [address]- 2889 Aug, [facility] [place] [facility] [address] [id number] [place] [address]- 2312 Aug, [facility] [place] [facility] [address] [id number] [place] [address]- 2131 Aug, [facility] [place] [facility] [address] [id number] [place] [address]- 8893 Jul, [facility] [place] [facility] [address] [id number] [place] [address]- 2079 Jul, [facility] [place] [facility] [address] [id number] [place] [address]- 2442 Jul, [facility] [place] [facility] [address] [id number] [place] [address]- 2116 Jul, [facility] [place] [facility] [address] [id number] [place] [address]- 4286 Jul, [facility] [place] [facility] [address] [id number] [place] [address]- 3633 Jul, [facility] [place] [facility] [address] [id number] [place] [address]- 0606 Jul, [facility] [place] [facility] [address] [id number] [place] [address]- 4508 Jul, [facility] [place] [facility] [address] [facility] [place] [id number] [place] [address]- 1265 Jul, [facility] [place] [facility] [address] [id number] [place] [address]- 1735 Jul, [facility] [place] [facility] [address] [id number] [place] [address]- 9797 Jul, [facility] [place] [facility] [address] [facility] [place] [id number] [place] [address]- 2336 Jun, [facility] [place] [facility] [address] [facility] [place] [id number] [place] [address]- 3030 Jun, [facility] [place] [facility] [address] [id number] [place] [address]- 7678 Jun, [facility] [place] [facility] [address] [id number] [place] [address]- 2892 Jun, [facility] [place] [facility] [address] [facility] [place] [id number] [place] [address]- 3230 May, [facility] [place] [facility] [address] [facility] [place] [id number] 9587 May, [facility] [place] [facility] [address] [id number] [place] [address]- 7814 Apr, [facility] [place] [facility] [address] [id number] [place] [address]- 0368 Apr, [facility] [place] [facility] [address] [id number] [place] [address]- 2287 Apr, [facility] [place] [facility] [address] [id number] [place] [address]- 8663 Apr, [facility] [place] [facility] [address] [id number] [place] [address]- 6020 Apr, [facility] [place] [facility] [address] [id number] [place] [address]- 0720 Apr, [facility] [place] [facility] [address] [id number] [place] [address]- 3017 Apr, [facility] [place] [facility] [address] [id number] [place] [address]- 3763 Apr, [facility] [place] [facility] [address] [id number] [place] [address]- 3360 Apr, [facility] [place] [facility] [address] [id number] [place] [address]- 2621 Apr, [facility] [place] [facility] [address] [id number] [place] [address]- 3908 Apr, [facility] [place] [facility] [address] [id number] [place] [address]- 3812 Apr, [facility] [place] [facility] [address] [id number] [place] [address]- 5789 Mar, [facility] [place] [facility] [address] [id number] [place] [address]- 2247 Mar, [facility] [place] [facility] [address] [id number] [place] [address]- 1608 Mar, [facility] [place] [facility] [address] [id number], [place] [address]- 9196 Dec, [facility] [address] [facility] [id number], [place] [address]- 2813 Dec, [facility] [address] [facility] [place] [place] [id number], [place] [address] 2546 Dec, [facility] [address] [facility] [place] [id number], [place] [address]- 9848 Oct, [facility] [address] [facility] [place] [id number], [place] [address]- 2877 May, [facility] [address] [facility] [place] [place] [id number], [place] [address]- 6466 May, [facility] [address] [id number], [place] [address]- 8186 May, [facility] [address] [facility] [place] [place] [id number], [place] [address]- 7726 Dec, IMMUNIZATIONS No Known Immunizations SOCIAL HISTORY Never Assessed REASON FOR VISIT med refills. PLAN OF CARE VITAL SIGNS MEDICATIONS Medication Instructions Dosage Frequency Start Date End Date Duration Status Loxapine Succinate 5 MG Orally at night 1 capsule Oct, 30 days Active Abilify 30 MG Orally Once a day 1 tablet 24h Nov, 30 days Active RESULTS No Results PROCEDURES No [...] Gall Bladder Surgical History Tubalization Hospitalization History [facility] 12/2014 Hospitalization History Obstructive Airway Disease, Mood disorder, cough-[facility] 07/02/15 Hospitalization History Bronchitis- [facility] 06/2016
--- OUTSIDE RECORDS SUMMARY | 2018-02-03 08:40 | XMS REPORT ---
Author Author KALEIGH OLIVER Organization [facility] Address [address] [place] [address] Care Team Providers Care Chief Of Vital Statistics Name Role Phone KALEIGH OLIVER Unavailable PROBLEMS Type Condition ICD9-CM Code [id number] Code Onset Dates Condition Status SNOMED Code Problem Slow transit constipation K59.01 Active 05746048 Problem Bipolar disorder, current episode mixed, mild F31.61 Active 856169842 Problem Chronic obstructive pulmonary disease, unspecified COPD type J44.9 Active 56442585 Problem Bipolar II disorder F31.81 Active 70285275 Problem Post-traumatic stress disorder, chronic F43.12 Active 26175474 Problem Bipolar affective disorder, currently manic, mild F31.11 Active 373778338 Problem Lumbago with sciatica, left side M54.42 Active 067940155 Problem Essential hypertension I10 Active 58064937 Problem Other chronic pain G89.29 Active 22721816 Problem Bipolar disorder, in partial remission, most recent episode mixed F31.77 Active 38204848 Problem Paresthesias R20.2 Active 34321098 Problem Irritable bowel syndrome with both constipation and diarrhea K58.2 Active 98704685 ALLERGIES No Information ENCOUNTERS Encounter Location Date Diagnosis [facility] [address], [place] [address] Jan, [facility] [id number] [place] [address] 15566- 9832 Jan, [facility] [id number] [place] [address] 78035- 2379 Jan, [facility] [address] [place] [address] 18549- 0239 Dec, [facility] [address] [place] [address] 79953- 3427 Nov, Bipolar II disorder F31.81 and Post-traumatic stress disorder, chronic F43.12 [facility] [id number] [place] [address] 26509- 7656 Nov, Essential hypertension I10 ; Lymph node enlargement R59.9 ; Paresthesias R20.2 ; Irritable bowel syndrome with both constipation and diarrhea K58.2 ; Lumbago with sciatica, left side M54.42 and Other chronic pain G89.29 [facility] [id number] [place] [address] 93875- 1462 Nov, Bipolar disorder, in partial remission, most recent episode mixed F31.77 [facility] [id number] [place] [address] 70576- 2084 Oct, Bipolar disorder, in partial remission, most recent episode mixed F31.77 [facility] [id number] [place] [address] 92951 -9908 Oct, Scabies B86 [facility] [id number] [place] [address] 47219- 4511 Oct, Bipolar disorder, in partial remission, most recent episode mixed F31.77 [facility] [id number] [place] [address] 38855- 0956 Oct, [facility] [id number] [place] [address] 16381- 1000 Oct, Bipolar II disorder F31.81 and Post-traumatic stress disorder, chronic F43.12 [facility] [id number] [place] [address] 54906 -9935 Oct, Scabies B86 [facility] [id number] [place] [address] 14666- 4804 Oct, [facility] [id number] [place] [address] 36373- 6106 September, Bipolar II disorder F31.81 and Post-traumatic stress disorder, chronic F43.12 [facility] [id number] [place] [address] 24201- 8247 September, Bipolar disorder, in partial remission, most recent episode mixed F31.77 [facility] [id number] [place] [address] 68217- 8658 September, COPD exacerbation J44.1 and Elevated blood pressure reading R03.0 [facility] [address] 13765- 4090 September, [facility] [address] 92876- 9785 September, Pain in left ankle and joints of left foot M25.572 ; Dermatitis L30.9 and Other chronic pain G89.29 [facility] [id number] [place] [address] 34392- 4330 Aug, Right elbow pain M25.521 and Elevated blood pressure reading R03.0 [facility] [address] 92058- 1038 Aug, Bipolar disorder, current episode mixed, mild F31.61 and BMI 40.0-44.9, adult Z68.41 [facility] [id number] [place] [address] 24547- 5903 Aug, [facility] [id number] [place] [address] 24097- 8082 Aug, Bipolar II disorder F31.81 and Post-traumatic stress disorder, chronic F43.12 [facility] [id number] [place] [address] 86456- 5504 Jul, Elevated blood pressure reading R03.0 [facility] [address] 86279- 0107 Jul, Bipolar II disorder F31.81 and Post-traumatic stress disorder, chronic F43.12 [facility] [id number] [place] [address] 37281- 8608 Jul, Bipolar disorder, current episode mixed, mild F31.61 [facility] [id number] [place] [address] 32454 -1308 12 Jul, 2017 Right foot pain M79.671 ; Allergic contact dermatitis, unspecified trigger L23.9 ; Contusion of right foot, initial encounter S90.31XA and BMI 40.0-44.9, adult Z68.41 [facility] [id number] [place] [address] 14272 -9387 Jul, 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 [facility] [address] 41830- 5044 Jul, [address] 59738- 5261 15 Jul, 2017 Bipolar disorder, current episode mixed, mild F31.61 [facility] [address] 86989- 6705 15 Jul, 2017 Bipolar II disorder F31.81 ; Post-traumatic stress disorder , chronic F43.12 and Memory change R41.3 [facility] [id number] [place] [address] 19748- 3111 14 Jul, 2017 Elevated blood pressure reading R03.0 ; Chronic obstructive pulmonary disease, unspecified COPD type J44.9 ; Long-term use of high-risk medication Z79.899 and Cognitive decline R41.89 [facility] [id number] [place] [address] 42688- 3420 06 Jul, 2017 Elevated blood pressure reading R03.0 [facility] [id number] [place] [address] 07245- 5336 05 Jul, 2017 [facility] [address] 75937- 5484 Jul, Bipolar II disorder F31.81 ; Post-traumatic stress disorder , chronic F43.12 and Memory change R41.3 [facility] [id number] [place] [address] 14235- 8540 Jun, [place] [address] [place] [address] 01075- 9380 Jun, Bipolar II disorder F31.81 ; Post-traumatic stress disorder , chronic F43.12 and Memory change R41.3 [facility] [id number] [place] [address] 02421- 1175 Jun, Localized swelling, mass or lump of neck R22.1 ; Slow transit constipation K59.01 and Elevated blood pressure reading R03.0 [facility] [id number] [place] [address] 79298- 7665 Jun, [facility] [id number] [place] [address] 16239- 4735 Jun, Bipolar affective disorder, currently manic, mild F31.11 [facility] [place] [id number] [place] [address] 97762 -5258 15 May, 2017 [facility] [place] [id number] [place] [address] 37636 -8363 May, [facility] [id number] [place] [address] 13420- 4627 May, Bipolar II disorder F31.81 ; Post-traumatic stress disorder , chronic F43.12 and Memory change R41.3 [facility] [id number] [place] [address] 21574- 0238 May, [facility] [id number] [place] [address] 42972- 5609 May, [facility] [address] [place] [address] 51862- 8377 05 May, 2017 Bipolar affective disorder, currently manic, mild F31.11 [facility] [id number] [place] [address] 78885- 9797 May, [facility] [place] [id number] [place] [address] 77042 -7111 May, Localized swelling, mass or lump of neck R22.1 and Localized swelling, mass and lump, head R22.0 [facility] [id number] [place] [address] 91988- 5361 Apr, [facility] [id number] [place] [address] 79607- 9111 Apr, Bipolar affective disorder, currently manic, mild F31.11 [facility] [id number] [place] [address] 53015- 5838 Apr, Bipolar II disorder F31.81 [facility] [id number] [place] [address] 26482- 9655 Apr, [facility] [id number] [place] [address] 94237- 7502 Apr, Bipolar affective disorder, currently manic, mild F31.11 [facility] [id number] [place] [address] 66940- 1782 Apr, Actinic keratosis L57.0 [facility] [id number] [place] [address] 59472- 6511 Apr, Bipolar affective disorder, currently manic, mild F31.11 [facility] [address] [place] [address] 38886- 2697 Apr, [facility] [id number] [place] [address] 47312 -5596 Mar, Allergic contact dermatitis, unspecified trigger L23.9 and Right leg pain M79.604 [facility] [id number] [place] [address] 37072- 5195 Mar, [facility] [address] 54847- 0383 Mar, Bipolar II disorder F31.81 ; Post-traumatic stress disorder , chronic F43.12 and Memory change R41.3 [facility] [id number] [place] [address] 37253- 5276 Mar, Actinic keratosis L57.0 [facility] [address], [place] [address]- 7481 Jan, Bipolar II disorder F31.81 ; Post-traumatic stress disorder , chronic F43.12 and Memory change R41.3 [facility] [address], [place] [address]- 5649 28 Jan, 2017 Bipolar affective disorder, currently manic, mild F31.11 [facility] [address] [place] [address] 95535- 8271 13 Jan, 2017 Bipolar affective disorder, currently manic, mild F31.11 [facility] [address] [place] [address] 97415- 6325 07 Jan, 2017 Bipolar II disorder F31.81 ; Post-traumatic stress disorder , chronic F43.12 and Memory change R41.3 [facility] [place] [address] [place] [address] 40941- 5050 Dec, Bipolar II disorder F31.81 ; Post-traumatic stress disorder , chronic F43.12 and Memory change R41.3 [place] [address] [place] [address] 07745- 2924 Dec, Bipolar affective disorder, currently manic, mild F31.11 [facility] [address], [place] [address]- 4327 Dec, Bipolar affective disorder, currently manic, mild F31.11 [facility] [address], [place] [address]- 2233 Dec, Post-traumatic stress disorder, chronic F43.12 [facility] [address], [place] [address]- 6476 Dec, Bipolar II disorder F31.81 ; Post-traumatic stress disorder , chronic F43.12 and Memory change R41.3 [facility] [address] [place] [address] 06641- 8144 Dec, Post-traumatic stress disorder, chronic F43.12 [facility] [address], [place] [address]- 7963 Nov, [facility] [address] [place] [address] 06468- 5999 Nov, Bipolar II disorder F31.81 ; Post-traumatic stress disorder , chronic F43.12 and Memory change R41.3 [facility] [address] [place] [address] 24260- 1100 Nov, [facility] [address] [place] [address] 24611- 6461 Nov, Post-traumatic stress disorder, chronic F43.12 and Bipolar II disorder F31.81 [facility] [address] [place] [address] 84335- 6692 Nov, Actinic keratosis L57.0 [facility] [address] [place] [address] 49352- 4880 Oct, Bipolar II disorder F31.81 ; Post-traumatic stress disorder , chronic F43.12 and Memory change R41.3 [facility] [address] [place] [address] 14409- 2175 Oct, Post-traumatic stress disorder, chronic F43.12 ; Bipolar II disorder F31.81 and Memory change R41.3 [facility] [address], [place] [address]- 0888 Oct, Bipolar II disorder F31.81 ; Post-traumatic stress disorder , chronic F43.12 and Memory change R41.3 [facility] [address], [place] [address]- 2292 Oct, Actinic keratosis L57.0 [facility] [address] [place] [address] 96045- 8682 September, Bipolar II disorder F31.81 ; Post-traumatic stress disorder , chronic F43.12 and Memory change R41.3 [facility] [address], [place] [address]- 0350 September, Bipolar II disorder F31.81 ; Post-traumatic stress disorder , chronic F43.12 and Memory change R41.3 [facility] [address], [place] [address]- 2430 September, Post-traumatic stress disorder, chronic F43.12 ; Bipolar II disorder F31.81 and Memory change R41.3 [facility] [address], [place] [address]- 2607 Jul, Bipolar II disorder F31.81 ; Post-traumatic stress disorder , chronic F43.12 and Memory change R41.3 [facility] [address], [place] [address]- 2111 Jul, Bipolar II disorder F31.81 ; Post-traumatic stress disorder , chronic F43.12 and Memory change R41.3 [facility] [address] [place] [address] 14576- 2100 Jul, Bipolar II disorder F31.81 ; Post-traumatic stress disorder , chronic F43.12 and Memory change R41.3 [facility] [address] [place] [address] 08784- 8177 Jul, Post-traumatic stress disorder, chronic F43.12 ; Bipolar II disorder F31.81 and Memory change R41.3 [facility] [address] [place] [address] 79473- 6443 Jul, Tear of medial meniscus of right knee, unspecified tear type , unspecified whether old or current tear, initial encounter S83.241A [facility] [id number] [place] [address] 2065 Jul, Bipolar II disorder F31.81 ; Post-traumatic stress disorder , chronic F43.12 and Memory change R41.3 [facility] [id number] [place] [address] 87853- 9727 Jul, Shortness of breath R06.02 ; Mixed hyperlipidemia E78.2 and Chronic fatigue R53.82 [facility] [id number] [place] [address] 66782- 0138 07 Jul, 2016 Bipolar II disorder F31.81 ; Post-traumatic stress disorder , chronic F43.12 and Memory change R41.3 [place] [id number] [place] [address] 11803- 4973 Jul, [facility] [address] 89745- 2626 Jun, Bipolar II disorder F31.81 ; Post-traumatic stress disorder , chronic F43.12 and Memory change R41.3 [facility] [id number] [place] [address] 74873- 1168 Jun, Post-traumatic stress disorder, chronic F43.12 ; Bipolar II disorder F31.81 and Memory change R41.3 [facility] [id number] [place] [address] 12676- 6492 Jun, Right anterior knee pain M25.561 ; Shortness of breath R06.02 and Bronchiolitis J21.9 [facility] [id number] [place] [address] 24012- 7417 Jun, [facility] [id number] [place] [address] 26057- 6909 Jun, Bipolar II disorder F31.81 ; Post-traumatic stress disorder , chronic F43.12 and Memory change R41.3 [facility] [id number] [place] [address] 05715- 0950 Jun, [address] 42372- 0372 Jun, Bipolar II disorder F31.81 ; Post-traumatic stress disorder , chronic F43.12 and Memory change R41.3 [facility] [id number] [place] [address] 13861- 5339 May, [facility] [address], [place] [address]- 8352 May, [facility] [address], [place] [address]- 3606 May, [facility] [address], [place] [address]- 9991 May, Right anterior knee pain M25.561 ; Cough R05 ; Skin lesion of right arm L98.9 and Lesion of skin of face L98.9 [facility] [address], [place] [address]- 3755 May, [facility] [address] [place] [address] 16413- 1941 May, Post-traumatic stress disorder, chronic F43.12 ; Memory change R41.3 and Bipolar I disorder, most recent episode manic F31.10 [facility] [address] [place] [address] 76761- 5343 May, [facility] [address] [place] [address] 20079- 8521 May, Right anterior knee pain M25.561 [facility] [address], [place] [address]- 4366 May, [facility] [address], [place] [address]- 6547 Apr, Bipolar II disorder F31.81 ; Post-traumatic stress disorder , chronic F43.12 and Memory change R41.3 [facility] [id number] [address]- 4679 17 Apr, 2016 Bipolar II disorder F31.81 ; Post-traumatic stress disorder , chronic F43.12 and Memory change R41.3 [facility] [id number], [place] [address]- 7045 09 Apr, 2016 Post-traumatic stress disorder, chronic F43.12 ; Bipolar II disorder F31.81 and Memory change R41.3 [facility] [place] [address] [place] [address] 62177- 5710 Mar, Bipolar II disorder F31.81 ; Post-traumatic stress disorder , chronic F43.12 and Memory change R41.3 [facility] [place] [id number] [place] [address] 30411- 9539 Mar, Memory change R41.3 ; Confusion R41.0 and Dizziness R42 [facility] [id number] [place] [address] 94736- 6817 Mar, Encounter for immunization Z23 ; Memory change R41.3 and Fatigue, unspecified type R53.83 [place] [id number] [place] [address] 50010- 1320 Mar, Bipolar II disorder F31.81 ; Post-traumatic stress disorder , chronic F43.12 and Memory change R41.3 [facility] [place] [id number] [place] [address] 41309- 9133 Jan, Bipolar II disorder F31.81 ; Post-traumatic stress disorder , chronic F43.12 and Memory change R41.3 [facility] [place] [id number] [place] [address] 03818- 4286 Jan, Post-traumatic stress disorder, chronic F43.12 ; Bipolar II disorder F31.81 ; Anxiety disorder, unspecified F41.9 and Memory change R41.3 [place] [id number] [place] [address] 72934- 9769 15 Feb, 2016 Bipolar II disorder F31.81 ; Post-traumatic stress disorder , chronic F43.12 and Memory change R41.3 [facility] [id number] [place] [address] 96114- 5863 Dec, Bipolar II disorder F31.81 ; Post-traumatic stress disorder , chronic F43.12 and Memory change R41.3 [place] [id number] [place] [address] 07721- 1867 Dec, Memory loss R41.3 [facility] [address], [place] [address]- 2232 Dec, Bipolar II disorder F31.81 ; Post-traumatic stress disorder , chronic F43.12 and Memory change R41.3 [facility] [address], [place] [address]- 4591 Nov, Bipolar II disorder F31.81 and Post-traumatic stress disorder, chronic F43.12 [facility] [address] [place] [address] 78065- 6525 Nov, Bipolar II disorder F31.81 ; Post-traumatic stress disorder , chronic F43.12 and Memory change R41.3 [facility] [address] [place] [address] 93637- 4859 Oct, Post-traumatic stress disorder, chronic F43.12 and Bipolar disorder, unspecified F31.9 [facility] [address] [place] [address] 86560- 0264 Oct, Bipolar II disorder F31.81 ; Post-traumatic stress disorder , chronic F43.12 and Memory change R41.3 [facility] [address] [place] [address] [id number] Oct, Dental examination Z01.20 [facility] [address] [place] [address] 47342- 8324 September, Bipolar II disorder F31.81 ; Post-traumatic stress disorder , chronic F43.12 and Memory change R41.3 [facility] [address], [place] [address]- 2588 Aug, Bipolar II disorder F31.81 and Post-traumatic stress disorder, chronic F43.12 [facility] [address], [place] [address]- 9209 Aug, Bipolar II disorder F31.81 and Post-traumatic stress disorder, chronic F43.12 [facility] [address] [place] [address] 88730- 5527 Jul, Bipolar II disorder F31.81 and Post-traumatic stress disorder, chronic F43.12 [place] [address] [id number] [place] [address]- 4456 Jul, [facility] [id number] [place] [address] 07471- 4058 Jul, [facility] [address] 125014- 0474 Jul, Post-traumatic stress disorder, chronic F43.12 and Bipolar disorder, unspecified F31.9 [place] [address] [id number] [place] [address]- 5637 Jun, Bipolar II disorder F31.81 and Post-traumatic stress disorder, chronic F43.12 [facility] [place] [id number] [place] [address] 40941- 8363 Jun, Post-traumatic stress disorder, chronic F43.12 and Bipolar disorder, unspecified F31.9 [place] [id number] [place] [address] 23739- 7480 Jun, [place] [place] [address] [place] [id number] [place] [address]- 7100 Jun, Pharyngeal dysphagia R13.13 ; Hoarseness R49.0 and Cough R05 [place] [address] [id number] [place] [address] 08875- 4493 Jun, Post-traumatic stress disorder, chronic F43.12 and Bipolar disorder, unspecified F31.9 [place] [place] [id number] [place] [address] 50902- 5211 May, Cough R05 [place] [address] [place] [id number] [place] [address]- 6614 May, Post-traumatic stress disorder, chronic F43.12 and Bipolar disorder, unspecified F31.9 [place] [address] [id number] [place] [address]- 4816 May, Cough R05 [facility] [id number] [address] May, [facility] [id number] [id number] May, Dental examination Z01.20 [facility] [id number] [place] [phone] 15 May, 2015 Bipolar II disorder F31.81 and Post-traumatic stress disorder, chronic F43.12 [facility] [id number] [place] [phone] May, [facility] [id number] [place] [address]- 2332 14 May, 2015 Bipolar II disorder F31.81 and Anxiety disorder, unspecified F41.9 [facility] [id number] [place] [address] 75893- 9717 10 May, 2015 Memory change R41.3 and History of renal insufficiency syndrome Z87.448 [facility] [id number] [place] [address] 88557- 1821 03 May, 2015 Memory change R41.3 ; Dry mouth R68.2 and History of renal insufficiency syndrome Z87.448 [facility] [address] [address] May, Bipolar II disorder F31.81 and Post-traumatic stress disorder, chronic F43.12 [facility] [id number] [place] [address] 22816- 1843 Mar, Bipolar disorder, unspecified F31.9 and Generalized anxiety disorder F41.1 [facility] [id number] [place] [address] 93634- 5268 Mar, Bipolar II disorder F31.81 [facility] [address] [address] 8741 Mar, Encounter for immunization Z23 [facility] [id number] [address] 0742 Mar, [facility] [id number] [place] [address] 61616- 8310 Mar, Bipolar II disorder F31.81 [facility] [id number] [place] [address] 720071- 4813 Mar, [facility] [id number] [place] [address] 85072- 0793 Jan, Bipolar disorder, unspecified 296.80 and Anxiety disorder 300.00 [facility] [id number] [place] [address] 20564- 9505 Jan, [facility] [id number] [place] [address] 40119- 7865 Jan, Bipolar disorder, unspecified 296.80 and Anxiety disorder 300.00 [facility] [id number] [place] [address] 91654- 1819 Dec, Bipolar disorder, unspecified 296.80 and Anxiety disorder 300.00 [facility] [id number] [place] [address] 71143- 3424 Dec, [facility] [id number] [place] [address] 99391- 4589 Dec, Bipolar disorder, unspecified 296.80 and Anxiety disorder 300.00 [facility] [id number] [place] [address] 09622- 1968 Nov, Bipolar disorder, unspecified 296.80 and Anxiety disorder 300.00 [facility] [address] [address] 77[address] Oct, Bipolar disorder, unspecified 296.80 and Anxiety disorder 300.00 [facility] [id number] [place] [address] 52374- 8696 Oct, Anxiety 300.00 and Bipolar disorder, unspecified 296.80 [facility] [id number] [place] [address] 29396- 2748 September, Bipolar disorder, unspecified 296.80 and Anxiety disorder 300.00 [facility] [address] [address]228 September, [facility] [id number] [place] [address] 6559 Aug, Cough 786.2 [facility] [id number] [place] [address], [place] [address]- 9785 Aug, [facility] [id number] [place] [address]- 4489 Aug, [facility] [id number] [place] [address], [place]- 0133 Jul, [facility] [id number] [place] [address]- 4711 Jul, [facility] [id number] [place] [address], [place] [address]- 8054 Jul, [facility] [address] [address]- 7158 Jul, [facility] [address], [place] [address]- 0145 Jul, [facility] [address], [place] [address]- 3568 Jul, [facility] [address], [place] [address]- 1471 Jun, [facility] [id number] 6178 Jun, [facility] [address], [place] [address]- 1658 Jun, [facility] [id number] 5570 Jun, [facility] [address], [place] [address]- 2042 May, [facility] [place] [facility] [address] [id number] [place] [address]75 May, [facility] [place] [facility] [address] [id number] [place] [address]- 6743 May, [facility] [place] [facility] [address] [facility] [id number] [place] [address]- 1811 May, [facility] [place] [facility] [address] [id number] [place] [address]- 9105 Apr, [facility] [place] [facility] [address] [id number] [place] 3799 Apr, [facility] [place] [facility] [address] [id number] [place] [address]- 9805 Mar, [facility] [place] [facility] [address] [id number] [place] [address]- 4331 Mar, [facility] [place] [facility] [address] [id number] [place] [address]- 8802 Mar, [facility] [place] [facility] [address] [id number] [place] [address]- 3505 Mar, [facility] [place] [facility] [address] [id number] [place] [address]- 0909 Mar, [facility] [place] [facility] [address] [id number], [place] [address]- 2040 Mar, [facility] [place] [facility] [address] [id number], [place] [address]- 3342 Jan, [facility] [place] [facility] [address] [id number] [place] [address]- 5847 Jan, [facility] [place] [facility] [address] [facility] [id number] [place] 2831 Jan, [facility] [place] [facility] [address] [id number] [place] 6422 Jan, [facility] [place] [facility] [address] [id number] [place] [address]- 0956 Jan, [facility] [place] [facility] [address] [id number] [place] [address]- 8116 Jan, [facility] [place] [facility] [address] [id number] [place] [address]- 5252 Dec, [facility] [place] [facility] [address] [id number] [place] [address]- 5519 Dec, [facility] [place] [facility] [address] [id number] [place] [address]- 9028 Dec, [facility] [place] [facility] [address] [id number] [place] [address]- 5626 Dec, [facility] [place] [facility] [address] [id number] [place] [address]- 4093 Dec, [facility] [place] [facility] [address] [id number] [place] [address]- 0308 Dec, [facility] [place] [facility] [address] [id number] [place] [address]- 1280 Nov, [facility] [place] [facility] [address] [id number] [place] [address]- 5243 Nov, [facility] [place] [facility] [address] [id number] [place] [address]- 4396 Nov, [facility] [place] [facility] [address] [id number] [place] [address]- 2195 Nov, [facility] [place] [facility] [address] [id number] [place] [address]- 6197 Nov, [facility] [place] [facility] [address] [id number] [place] [address]- 7560 Nov, [facility] [place] [facility] [address] [id number] [place] [address]- 1542 Nov, [facility] [place] [facility] [address] [id number] [place] [address]- 5736 Nov, [facility] [place] [facility] [address] [id number] [place] [address]- 6657 Nov, [facility] [place] [facility] [address] [id number] [place] [address]- 6750 Nov, [facility] [place] [facility] [address] [id number] [place] [address]- 7595 September, [facility] [place] [facility] [address] [id number] [place] [address]- 8717 September, [facility] [place] [facility] [address] [id number] [place] [address]- 1709 September, [facility] [place] [facility] [address] [id number] [place] [address]- 1051 September, [facility] [place] [facility] [address] [id number] [place] [address]- 1338 September, [facility] [place] [facility] [address] [id number] [place] [address]- 7192 September, [facility] [place] [facility] [address] [id number] [place] [address]- 6381 September, [facility] [place] [facility] [address] [id number] [place] [address]- 5841 September, [facility] [place] [facility] [address] [id number] [place] [address]- 3000 Aug, [facility] [place] [facility] [address] [id number] [place] [address]- 5211 Aug, [facility] [place] [facility] [address] [id number] [place] [address]- 1664 Aug, [facility] [place] [facility] [address] [id number] [place] [address]- 2083 Aug, [facility] [place] [facility] [address] [id number] [place] [address]- 3051 Jul, [facility] [place] [facility] [address] [id number] [place] [address]- 2121 Jul, [facility] [place] [facility] [address] [id number] [place] [address]- 4476 Jul, [facility] [place] [facility] [address] [id number] [place] [address]- 1086 Jul, [facility] [place] [facility] [address] [id number] [place] [address]- 8146 Jul, [facility] [place] [facility] [address] [id number] [place] [address]- 3757 Jul, [facility] [place] [facility] [address] [id number] [place] 7656 Jul, [facility] [place] [facility] [address] [id number] [place] [address]- 4880 Jul, [facility] [place] [facility] [address] [facility] [id number] [place] [address]- 2168 Jul, [facility] [place] [facility] [address] [id number] [place] [address]- 8533 Jul, [facility] [place] [facility] [address] [id number] [place] [address]- 1723 Jul, [facility] [place] [facility] [address] [facility] [id number] [place] [address]- 5903 Jun, [facility] [place] [facility] [address] [id number] [place] [address]- 2085 Jun, [facility] [place] [facility] [address] [id number] [place] [address]- 0243 Jun, [facility] [place] [facility] [address] [id number] [place] 1113 Jun, [facility] [place] [facility] [address] [facility] [id number] [place] [address]- 0195 May, [facility] [place] [facility] [address] [id number] [place] [address]- 3224 May, [facility] [place] [facility] [address] [id number] [place] [address]- 2258 Apr, [facility] [place] [facility] [address] [id number] [place] [address]- 6707 Apr, [facility] [place] [facility] [address] [id number], [place] [address]- 8824 Apr, [facility] [place] [facility] [address] [id number] [place] [address]- 0686 Apr, [facility] [place] [facility] [address] [id number] [place] [address]- 6751 Apr, [facility] [place] [facility] [address] [id number] [place] [address]- 4435 Apr, [facility] [place] [facility] [address] [id number] [place] [address]- 9885 Apr, [facility] [place] [facility] [address] [id number], [place] [address]- 3279 Apr, [facility] [place] [facility] [address] [id number], [place] [address]- 6573 Apr, [facility] [place] [facility] [address] [id number], [place] [address]- 7181 Apr, [facility] [place] [facility] [address] [id number], [place] [address]- 6373 Apr, [facility] [place] [facility] [address] [id number], [place] [address]- 8280 Apr, [facility] [place] [facility] [address] [id number], [place] [address]- 9434 Mar, [facility] [place] [facility] [address] [id number], [place] [address]- 5180 Mar, [facility] [place] [facility] [address] [facility] [id number], [place] [address]- 1350 Mar, [facility] [place] [facility] [address] [id number], [place] [address]- 2857 Dec, [facility] [id number] [address]- 3028 Dec, [facility] [id number] [address]- 2000 Dec, [facility] [id number], [place] [address]- 0876 Oct, [facility] [id number], [place] [address]- 7415 May, [facility] [id number] [address]- 6364 May, [facility] [id number], [place] [address]- 3196 May, [facility] [address] [id number] [address]- 7025 Dec, IMMUNIZATIONS No Known Immunizations SOCIAL HISTORY Never Assessed REASON FOR VISIT LVM- Unable to contact PLAN OF CARE VITAL SIGNS MEDICATIONS Unknown Medications RESULTS No Results PROCEDURES No Known procedures [...] fatigue Medical History hyperlipidemia Surgical History Stimulator 07-18-15 Surgical History Disectomy 1991 Surgical History Breast Reduction 1998 Surgical History Left hand carpal surgery 1992 Surgical History Hysterectomy 05/02 Surgical History tubes and ovaries 04/16/10 Surgical History Bladder lift 04/16/10 Surgical History Gall Bladder Surgical History Tubalization Hospitalization History [facility] 12/2014 Hospitalization History Obstructive Airway Disease, Mood disorder, cough-[facility] 07/02/15 Hospitalization History Bronchitis- [facility] 06/2016
--- OUTSIDE RECORDS SUMMARY | 2018-02-03 08:41 | XMS REPORT ---
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 Name Role Phone MURIEL OROZCO Unavailable PROBLEMS Type Condition ICD9-CM Code [id number] Code Onset Dates Condition Status SNOMED Code Problem Slow transit constipation K59.01 Active 94192034 Problem Bipolar disorder, current episode mixed, mild F31.61 Active 167732398 Problem Chronic obstructive pulmonary disease, unspecified COPD type J44.9 Active 06355515 Problem Bipolar II disorder F31.81 Active 67979130 Problem Post-traumatic stress disorder, chronic F43.12 Active 16572383 Problem Bipolar affective disorder, currently manic, mild F31.11 Active 774107367 Problem Lumbago with sciatica, left side M54.42 Active 241444836 Problem Essential hypertension I10 Active 21584108 Problem Other chronic pain G89.29 Active 39308117 Problem Bipolar disorder, in partial remission, most recent episode mixed F31.77 Active 25930008 Problem Paresthesias R20.2 Active 08451601 Problem Irritable bowel syndrome with both constipation and diarrhea K58.2 Active 30852175 ALLERGIES Substance Reaction Event Type Date Status Xanax memory problems, mental disorganization Non Drug Allergy Oct, Active Silk tape rash Non Drug Allergy Oct, Active ENCOUNTERS Encounter Location Date Diagnosis [facility] [address] [facility] [id number] [address] Jan, [facility] [id number] [place] [address] 36074- 2205 Jan, [facility] [address] [address] Jan, [facility] [id number] [place] [address] 07036- 2112 Dec, [facility] [id number] [place] [address] 79580- 3585 Nov, Bipolar II disorder F31.81 and Post-traumatic stress disorder, chronic F43.12 [facility] [id number] [place] [address] 84553- 0235 Nov, Essential hypertension I10 ; Lymph node enlargement R59.9 ; Paresthesias R20.2 ; Irritable bowel syndrome with both constipation and diarrhea K58.2 ; Lumbago with sciatica, left side M54.42 and Other chronic pain G89.29 [facility] [id number] [place] [address] 52462- 6612 Nov, Bipolar disorder, in partial remission, most recent episode mixed F31.77 [facility] [id number] [place] [address] 96465- 7678 Oct, Bipolar disorder, in partial remission, most recent episode mixed F31.77 [facility] [id number] [place] [address] 95969 -5511 Oct, Scabies B86 [facility] [id number] [place] [address] 09290- 3070 Oct, Bipolar disorder, in partial remission, most recent episode mixed F31.77 [facility] [id number] [place] [address] 15664- 9297 Oct, [facility] [id number] [place] [address] 85575- 0118 Oct, Bipolar II disorder F31.81 and Post-traumatic stress disorder, chronic F43.12 [facility] [id number] [place] [address] 45499 -4420 Oct, Scabies B86 [facility] [id number] [place] [address] 70165- 4989 Oct, [facility] [id number] [place] [address] 76677- 2325 September, Bipolar II disorder F31.81 and Post-traumatic stress disorder, chronic F43.12 [place] [id number] [place] [address] 09096- 6003 September, Bipolar disorder, in partial remission, most recent episode mixed F31.77 [place] [address] 58769- 0278 September, COPD exacerbation J44.1 and Elevated blood pressure reading R03.0 [place] [address] 16744- 0073 September, [place] [address] 28815- 1385 September, Pain in left ankle and joints of left foot M25.572 ; Dermatitis L30.9 and Other chronic pain G89.29 [place] [address] 58627- 7533 Aug, Right elbow pain M25.521 and Elevated blood pressure reading R03.0 [place] [id number] [place] [address] 89988- 5612 Aug, Bipolar disorder, current episode mixed, mild F31.61 and BMI 40.0-44.9, adult Z68.41 [place] [id number] [place] [address] 11947- 8706 Aug, [place] [address] 56318- 9329 Aug, Bipolar II disorder F31.81 and Post-traumatic stress disorder, chronic F43.12 [place] [address] 66130- 7239 Jul, Elevated blood pressure reading R03.0 [place] [address] 79105- 7691 Jul, Bipolar II disorder F31.81 and Post-traumatic stress disorder, chronic F43.12 [place] [id number] [place] [address] 13477- 6588 15 Jul, 2017 Bipolar disorder, current episode mixed, mild F31.61 [facility] [place] [id number] [place] [address] 79521 -1349 12 Jul, 2017 Right foot pain M79.671 ; Allergic contact dermatitis, unspecified trigger L23.9 ; Contusion of right foot, initial encounter S90.31XA and BMI 40.0-44.9, adult Z68.41 [facility] [place] [id number] [place] [address] 65879 -0011 02 Jul, 2017 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 53729- 3444 22 Jul, [address] 29204- 3390 15 Jul, 2017 Bipolar disorder, current episode mixed, mild F31.61 [place] [id number] [place] [address] 07602- 2975 15 Jul, 2017 Bipolar II disorder F31.81 ; Post-traumatic stress disorder , chronic F43.12 and Memory change R41.3 [place] [id number] [place] [address] 06912- 6677 14 Jul, 2017 Elevated blood pressure reading R03.0 ; Chronic obstructive pulmonary disease, unspecified COPD type J44.9 ; Long-term use of high-risk medication Z79.899 and Cognitive decline R41.89 [place] [address] [place] [address] 65802- 9341 06 Jul, 2017 Elevated blood pressure reading R03.0 [place] [id number] [place] [address] 16478- 4507 05 Jul, 2017 [place] [id number] [place] [address] 62635- 1657 01 Jul, 2017 Bipolar II disorder F31.81 ; Post-traumatic stress disorder , chronic F43.12 and Memory change R41.3 [facility] [id number] [place] [address] 56823- 9221 18 Jun, 2017 [facility] [id number] [place] [address] 45579- 0946 18 Jun, 2017 Bipolar II disorder F31.81 ; Post-traumatic stress disorder , chronic F43.12 and Memory change R41.3 [place] [id number] [place] [address] 37651- 5235 10 Jun, 2017 Localized swelling, mass or lump of neck R22.1 ; Slow transit constipation K59.01 and Elevated blood pressure reading R03.0 [place] [id number] [place] [address] 69291- 6090 Jun, [place] [id number] [place] [address] 06479- 7749 Jun, Bipolar affective disorder, currently manic, mild F31.11 [facility] [id number] [place] [address] 73020 -2888 15 May, 2017 [facility] [id number] [place] [address] 68409 -2533 14 May, 2017 [facility] [id number] [place] [address] 61644- 7787 13 May, 2017 Bipolar II disorder F31.81 ; Post-traumatic stress disorder , chronic F43.12 and Memory change R41.3 [facility] [id number] [place] [address] 40232- 6128 11 May, 2017 [facility] [id number] [place] [address] 20102- 8997 08 May, 2017 [place] [id number] [place] [address] 76769- 9123 05 May, 2017 Bipolar affective disorder, currently manic, mild F31.11 [place] [id number] [place] [address] 89769- 2057 May, [facility] [address] [address] May, Localized swelling, mass or lump of neck R22.1 and Localized swelling, mass and lump, head R22.0 [facility] [id number] [place] [address] 45677- 0769 Apr, [facility] [id number] [place] [address] 60233- 7409 Apr, Bipolar affective disorder, currently manic, mild F31.11 [facility] [id number] [place] [address] 90852- 0927 Apr, Bipolar II disorder F31.81 [facility] [id number] [place] [address] 26041- 8817 Apr, [facility] [id number] [place] [address] 54386- 8222 Apr, Bipolar affective disorder, currently manic, mild F31.11 [facility] [id number] [place] [address] 64575- 4772 Apr, Actinic keratosis L57.0 [facility] [id number] [place] [address] 01772- 1917 Apr, Bipolar affective disorder, currently manic, mild F31.11 [facility] [id number] [place] [address] 86852- 3983 Apr, [facility] [id number] [place] [address] 13594 -2549 Mar, Allergic contact dermatitis, unspecified trigger L23.9 and Right leg pain M79.604 [facility] [address] [place] [address] 90155- 4014 Mar, [facility] [id number] [place] [address] 47616- 6275 Mar, Bipolar II disorder F31.81 ; Post-traumatic stress disorder , chronic F43.12 and Memory change R41.3 [facility] [address] [address]- 9894 04 Mar, 2017 Actinic keratosis L57.0 [facility] [address] [address]- 3732 28 Jan, 2017 Bipolar II disorder F31.81 ; Post-traumatic stress disorder , chronic F43.12 and Memory change R41.3 [facility] [id number] [address]- 1525 28 Jan, 2017 Bipolar affective disorder, currently manic, mild F31.11 [facility] [id number] [place] [address] 67755- 8527 13 Jan, 2017 Bipolar affective disorder, currently manic, mild F31.11 [facility] [id number] [place] [address] 14965- 4052 Jan, Bipolar II disorder F31.81 ; Post-traumatic stress disorder , chronic F43.12 and Memory change R41.3 [facility] [address] [place] [address] 27955- 0556 Dec, Bipolar II disorder F31.81 ; Post-traumatic stress disorder , chronic F43.12 and Memory change R41.3 [facility] [address] [address]- 6317 Dec, Bipolar affective disorder, currently manic, mild F31.11 [facility] [address] [address]- 6480 Dec, Bipolar affective disorder, currently manic, mild F31.11 [facility] [address] [address]- 2000 Dec, Post-traumatic stress disorder, chronic F43.12 [facility] [address] [address]- 3101 Dec, Bipolar II disorder F31.81 ; Post-traumatic stress disorder , chronic F43.12 and Memory change R41.3 [facility] [address] [facility] [id number] [address] [address]10 Dec, Post-traumatic stress disorder, chronic F43.12 [facility] [address] [facility] [id number] [place] [address]- 4636 Nov, [facility] [id number] [place] [address] 79198- 2984 Nov, Bipolar II disorder F31.81 ; Post-traumatic stress disorder , chronic F43.12 and Memory change R41.3 [facility] [address] [facility] [id number] [place] [address]- 5561 Nov, [facility] [id number] [place] [address] 99546- 1065 Nov, Post-traumatic stress disorder, chronic F43.12 and Bipolar II disorder F31.81 [facility] [id number] [place] [address] 86556- 8996 Nov, Actinic keratosis L57.0 [facility] [id number] [place] [address] 62388- 3352 Oct, Bipolar II disorder F31.81 ; Post-traumatic stress disorder , chronic F43.12 and Memory change R41.3 [facility] [id number] [address]- 1729 Oct, Post-traumatic stress disorder, chronic F43.12 ; Bipolar II disorder F31.81 and Memory change R41.3 [facility] [id number] [address]- 1186 Oct, Bipolar II disorder F31.81 ; Post-traumatic stress disorder , chronic F43.12 and Memory change R41.3 [facility] [id number] [address]- 2897 Oct, Actinic keratosis L57.0 [facility] [id number] [place] [address] 71725- 9216 September, Bipolar II disorder F31.81 ; Post-traumatic stress disorder , chronic F43.12 and Memory change R41.3 [place] [address] [place] [address]- 5360 September, Bipolar II disorder F31.81 ; Post-traumatic stress disorder , chronic F43.12 and Memory change R41.3 [place] [id number] [place] [address] 13881- 5584 September, Post-traumatic stress disorder, chronic F43.12 ; Bipolar II disorder F31.81 and Memory change R41.3 [place] [id number] [place] [address]- 5867 Jul, Bipolar II disorder F31.81 ; Post-traumatic stress disorder , chronic F43.12 and Memory change R41.3 [place] [id number] [place] [address] 97306- 5207 Jul, Bipolar II disorder F31.81 ; Post-traumatic stress disorder , chronic F43.12 and Memory change R41.3 [place] [address] [place] [address] 50393- 1887 Jul, Bipolar II disorder F31.81 ; Post-traumatic stress disorder , chronic F43.12 and Memory change R41.3 [place] [address] [place] [address] 80791- 0788 Jul, Post-traumatic stress disorder, chronic F43.12 ; Bipolar II disorder F31.81 and Memory change R41.3 [place] [address] [place] [address] 98073- 1274 Jul, Tear of medial meniscus of right knee, unspecified tear type , unspecified whether old or current tear, initial encounter S83.241A [facility] [address] [place] [address] 63400- 5596 Jul, Bipolar II disorder F31.81 ; Post-traumatic stress disorder , chronic F43.12 and Memory change R41.3 [facility] [address] [place] [address] 34675- 9735 07 Jul, 2016 Shortness of breath R06.02 ; Mixed hyperlipidemia E78.2 and Chronic fatigue R53.82 [facility] [id number] [place] [address] 64309- 5957 07 Jul, 2016 Bipolar II disorder F31.81 ; Post-traumatic stress disorder , chronic F43.12 and Memory change R41.3 [place] [id number] [place] [address] 89629- 7679 02 Jul, 2016 [place] [id number] [place] [address] 39399- 4428 Jun, Bipolar II disorder F31.81 ; Post-traumatic stress disorder , chronic F43.12 and Memory change R41.3 [place] [id number] [place] [address] 03542- 8721 Jun, Post-traumatic stress disorder, chronic F43.12 ; Bipolar II disorder F31.81 and Memory change R41.3 [place] [id number] [place] [address] 90417- 6840 Jun, Right anterior knee pain M25.561 ; Shortness of breath R06.02 and Bronchiolitis J21.9 [place] [id number] [place] [address] 80787- 6953 Jun, [facility] [id number] [place] [address] 86519- 9503 Jun, Bipolar II disorder F31.81 ; Post-traumatic stress disorder , chronic F43.12 and Memory change R41.3 [place] [id number] [place] [address] 52609- 7408 Jun, [facility] [id number] [place] [address] 24399- 2862 Jun, Bipolar II disorder F31.81 ; Post-traumatic stress disorder , chronic F43.12 and Memory change R41.3 [facility] [address] [address]- 0286 May, [facility] [id number] [place] [address] 99981 2546 May, [facility] [id number] [place] [address] 44758- 4016 May, [facility] [id number] [place] [address] 72523 2546 May, Right anterior knee pain M25.561 ; Cough R05 ; Skin lesion of right arm L98.9 and Lesion of skin of face L98.9 [facility] [id number] [place] [address] 62615- 8366 May, [facility] [id number] [place] [address] 58123- 8866 May, Post-traumatic stress disorder, chronic F43.12 ; Memory change R41.3 and Bipolar I disorder, most recent episode manic F31.10 [facility] [id number] [place] [address] 32009- 0306 May, [facility] [id number] [place] [address] 16533- 8656 May, Right anterior knee pain M25.561 [facility] [id number] [place] [address] 51482 2546 May, [facility] [id number] [place] [address] 39929- 2546 Apr, Bipolar II disorder F31.81 ; Post-traumatic stress disorder , chronic F43.12 and Memory change R41.3 [facility] [id number] [place] [address] 81594- 5896 Apr, Bipolar II disorder F31.81 ; Post-traumatic stress disorder , chronic F43.12 and Memory change R41.3 [facility] [id number] [place] [address] 76618- 6796 Apr, Post-traumatic stress disorder, chronic F43.12 ; Bipolar II disorder F31.81 and Memory change R41.3 [facility] [address] [place] [address] 89075- 8276 Mar, Bipolar II disorder F31.81 ; Post-traumatic stress disorder , chronic F43.12 and Memory change R41.3 [facility] [id number] [place] [address] 24583- 0864 Mar, Memory change R41.3 ; Confusion R41.0 and Dizziness R42 [place] [id number] [place] [address] 98715- 0990 Mar, Encounter for immunization Z23 ; Memory change R41.3 and Fatigue, unspecified type R53.83 [place] [address] [address]- 6522 Mar, Bipolar II disorder F31.81 ; Post-traumatic stress disorder , chronic F43.12 and Memory change R41.3 [place] [address] [address]- 1919 Jan, Bipolar II disorder F31.81 ; Post-traumatic stress disorder , chronic F43.12 and Memory change R41.3 [facility] [address] [address]- 6589 Jan, Post-traumatic stress disorder, chronic F43.12 ; Bipolar II disorder F31.81 ; Anxiety disorder, unspecified F41.9 and Memory change R41.3 [facility] [address] [address]- 6195 15 Feb, 2016 Bipolar II disorder F31.81 ; Post-traumatic stress disorder , chronic F43.12 and Memory change R41.3 [facility] [address] [address]- 2151 Dec, Bipolar II disorder F31.81 ; Post-traumatic stress disorder , chronic F43.12 and Memory change R41.3 [facility] [address] [address]- 5434 Dec, Memory loss R41.3 [facility] [address] [place] [address]- 3335 Dec, Bipolar II disorder F31.81 ; Post-traumatic stress disorder , chronic F43.12 and Memory change R41.3 [facility] [id number] [place] [address] 01833- 6256 Nov, Bipolar II disorder F31.81 and Post-traumatic stress disorder, chronic F43.12 [facility] [address] [place] [address] 86918- 8892 Nov, Bipolar II disorder F31.81 ; Post-traumatic stress disorder , chronic F43.12 and Memory change R41.3 [facility] [id number] [place] [address] 24358- 0091 Oct, Post-traumatic stress disorder, chronic F43.12 and Bipolar disorder, unspecified F31.9 [facility] [id number] [place] [address] 22900- 1418 Oct, Bipolar II disorder F31.81 ; Post-traumatic stress disorder , chronic F43.12 and Memory change R41.3 [facility] [address] [address] Oct, Dental examination Z01.20 [facility] [address] [place] [address] 24565- 7058 September, Bipolar II disorder F31.81 ; Post-traumatic stress disorder , chronic F43.12 and Memory change R41.3 [facility] [address] [place] [address] 87593- 0473 Aug, Bipolar II disorder F31.81 and Post-traumatic stress disorder, chronic F43.12 [facility] [address] [address]- 4163 Aug, Bipolar II disorder F31.81 and Post-traumatic stress disorder, chronic F43.12 [place] [address] [place] [address]- 5107 Jul, Bipolar II disorder F31.81 and Post-traumatic stress disorder, chronic F43.12 [place] [id number] [place] [phone] 16 Jul, 2015 [place] [address] [place] [address] Jul, [place] [address] [place] [id number] [place] [address] [id number] Jul, Post-traumatic stress disorder, chronic F43.12 and Bipolar disorder, unspecified F31.9 [place] [address] [place] [id number] [place] [id number] Jun, Bipolar II disorder F31.81 and Post-traumatic stress disorder, chronic F43.12 [place] [address] [place] [id number] [place], [place] [address] Jun, Post-traumatic stress disorder, chronic F43.12 and Bipolar disorder, unspecified F31.9 [place] [address] [place] [id number] [place] [address] 02276- 6157 Jun, [place] [id number] [place] [address] 50686- 0697 Jun, Pharyngeal dysphagia R13.13 ; Hoarseness R49.0 and Cough R05 [place] [id number] [place] [address] 79102- 1176 Jun, Post-traumatic stress disorder, chronic F43.12 and Bipolar disorder, unspecified F31.9 [place] [id number] [place] [id number] 9126 May, Cough R05 [place] [id number] [place] [address] 59690- 8176 May, Post-traumatic stress disorder, chronic F43.12 and Bipolar disorder, unspecified F31.9 [facility] [id number] [place] [address] 84022- 6961 22 May, 2015 Cough R05 [facility] [id number] [place] [address] 56300- 1876 16 May, 2015 [facility] [id number] [place] [address] [id number] 16 May, 2015 Dental examination Z01.20 [facility] [id number] [place] [address] 31184- 8132 15 May, 2015 Bipolar II disorder F31.81 and Post-traumatic stress disorder, chronic F43.12 [facility] [id number] [place] [address] 24807- 4283 14 May, 2015 [facility] [id number] [place] [address] 79002- 4030 14 May, 2015 Bipolar II disorder F31.81 and Anxiety disorder, unspecified F41.9 [facility] [id number] [place] [address] 67005- 3214 10 May, 2015 Memory change R41.3 and History of renal insufficiency syndrome Z87.448 [facility] [id number] [place] [address] 42767- 2146 May, Memory change R41.3 ; Dry mouth R68.2 and History of renal insufficiency syndrome Z87.448 [facility] [id number] [place] [address] 94091- 0361 May, Bipolar II disorder F31.81 and Post-traumatic stress disorder, chronic F43.12 [facility] [id number] [place] [address] 69756- 4387 30 Mar, 2015 Bipolar disorder, unspecified F31.9 and Generalized anxiety disorder F41.1 [facility] [id number] [place] [address] 29390- 7053 Mar, Bipolar II disorder F31.81 [facility] [id number] [address]- 7395 Mar, Encounter for immunization Z23 [facility] [id number] [place] [address] 97695- 2521 Mar, [facility] [id number] [place] [address] 93255- 4595 Mar, Bipolar II disorder F31.81 [facility] [id number] [place] [address] 98247- 5688 Mar, [facility] [id number] [place] [address] 79168- 7333 Jan, Bipolar disorder, unspecified 296.80 and Anxiety disorder 300.00 [facility] [id number] [place] [address] 11593- 7751 Jan, [facility] [id number] [place] [address] 87453- 4777 Jan, Bipolar disorder, unspecified 296.80 and Anxiety disorder 300.00 [facility] [id number] [place] [address] 21312- 6870 Dec, Bipolar disorder, unspecified 296.80 and Anxiety disorder 300.00 [facility] [id number] [place] [address] 04204- 9542 Dec, [facility] [id number] [place] [address] 53324- 7847 Dec, Bipolar disorder, unspecified 296.80 and Anxiety disorder 300.00 [facility] [id number] [place] [address] 36388- 3257 Nov, Bipolar disorder, unspecified 296.80 and Anxiety disorder 300.00 [facility] [id number] [place] [address] 24625- 7495 Oct, Bipolar disorder, unspecified 296.80 and Anxiety disorder 300.00 [facility] [id number] [place] [address] 78278- 1528 Oct, Anxiety 300.00 and Bipolar disorder, unspecified 296.80 [facility] [address] [address]- 0883 September, Bipolar disorder, unspecified 296.80 and Anxiety disorder 300.00 [facility] [id number] [place] [address]- 1426 September, [facility] [id number] [place] [address] 83077- 4119 Aug, Cough 786.2 [facility] [id number] [place] [address] 16067- 5342 Aug, [facility] [id number] [place] [address] 73088- 8173 Aug, [facility] [id number] 4132 Jul, [facility] [id number] [place] [address] 80024- 0429 Jul, [facility] [address] [address]- 8985 Jul, [facility] [address] [address]- 6513 Jul, [facility] [address] [address]- 8627 Jul, [facility] [address] [address]- 4951 Jul, [facility] [address] 4711 Jun, [facility] [address] 6378 Jun, [facility] [address]- 7300 Jun, [facility] [address] [address]- 4852 Jun, [facility] [place] [facility] [address] [id number] [place] [address]- 3947 May, [facility] [place] [facility] [address] [id number] [place] [address]- 7326 May, [facility] [place] [facility] [address] [id number] [place] 7202 May, [facility] [place] [facility] [address] [id number] [place] 8537 May, [facility] [place] [facility] [address] [id number] [place] [address]- 4044 Apr, [facility] [place] [facility] [address] [id number] [place] [address]- 5922 Apr, [facility] [place] [facility] [address] [id number] [place] [address]- 0684 Mar, [facility] [place] [facility] [address] [id number] [place] [address]- 2654 Mar, [facility] [place] [facility] [address] [id number] [place] [address]- 5948 Mar, [facility] [place] [facility] [address] [id number] [place] [address]- 1991 Mar, [facility] [place] [facility] [address] [id number] [place] [address]- 7166 Mar, [facility] [place] [facility] [address] [id number] [place] [address]- 4151 Mar, [facility] [place] [facility] [address] [id number] [place] [address]- 2953 Jan, [facility] [place] [facility] [address] [id number] [place] [address]- 0089 Jan, [facility] [place] [facility] [address] [id number] [place] 4577 Jan, [facility] [place] [facility] [address] [id number] [place] [address]- 5180 05 Jan, 2013 [facility] [place] [facility] [address] [id number] [place] [address]- 7728 Jan, [facility] [place] [facility] [address] [id number] [place] [address]- 2656 Jan, [facility] [place] [facility] [address] [id number] [place] [address]- 5704 Dec, [facility] [place] [facility] [address] [id number] [place] [address]- 9905 Dec, [facility] [place] [facility] [address] [id number] [place] [address]- 1406 Dec, [facility] [place] [facility] [address] [id number] [place] [address]- 4460 Dec, [facility] [place] [facility] [address] [id number] [place] [address]- 8428 Dec, [facility] [place] [facility] [address] [id number] [place] [address]- 6126 Dec, [facility] [place] [facility] [address] [id number] [place] [address]- 8625 Nov, [facility] [place] [facility] [address] [id number] [place] [address]- 5609 Nov, [facility] [place] [facility] [address] [id number] [place] [address]- 3038 Nov, [facility] [place] [facility] [address] [id number] [place] [address]- 9974 Nov, [facility] [place] [facility] [address] [id number] [place] [address]- 7823 Nov, [facility] [place] [facility] [address] [id number] [place] [address]- 5668 Nov, [facility] [place] [facility] [address] [id number] [place] [address]- 5486 Nov, [facility] [place] [facility] [address] [id number] [place] [address]- 6975 Nov, [facility] [place] [facility] [address] [id number] [place] [address]- 5433 Nov, [facility] [place] [facility] [address] [id number] [place] [address]- 9400 Nov, [facility] [place] [facility] [address] [id number] [place] [address]- 2742 September, [facility] [place] [facility] [address] [id number] [place] [address]- 8821 September, [facility] [place] [facility] [address] [id number] [place] [address]- 8238 September, [facility] [place] [facility] [address] [id number] [place] [address]- 2054 September, [facility] [place] [facility] [address] [id number] [place] [address]- 2519 September, [facility] [place] [facility] [address] [id number] [place] [address]- 6004 September, [facility] [place] [facility] [address] [id number] [place] [address]- 9478 September, [facility] [place] [facility] [address] [id number] [place] [address]- 2436 September, [facility] [place] [facility] [address] [id number] [place] [address]- 3981 Aug, [facility] [place] [facility] [address] [id number] [place] [address]- 7614 Aug, [facility] [place] [facility] [address] [id number] [place] [address]- 1690 Aug, [facility] [place] [facility] [address] [id number] [place] 8668 Aug, [facility] [place] [facility] [address] [id number] [place] [address]- 0914 Jul, [facility] [place] [facility] [address] [id number] [place] [address]- 6356 Jul, [facility] [place] [facility] [address] [id number] [place] [address]- 7646 Jul, [facility] [place] [facility] [address] [id number] [place] [address]- 4086 Jul, [facility] [place] [facility] [address] [id number] [place] [address]- 4967 Jul, [facility] [place] [facility] [address] [id number] [place] [address]- 5846 Jul, [facility] [place] [facility] [address] [id number] [place] [address]- 0886 Jul, [facility] [place] [facility] [address] [facility] [id number] [place] [address]- 5234 Jul, [facility] [place] [facility] [address] [id number] [place] [address]- 9323 Jul, [facility] [place] [facility] [address] [facility] [id number] [place] [address]- 5819 Jul, [facility] [place] [facility] [address] [facility] [id number] [place] [address]- 7007 Jul, [facility] [place] [facility] [address] [facility] [id number] [place] [address]- 0530 Jun, [facility] [place] [facility] [address] [id number] [place] [address]- 2243 Jun, [facility] [place] [facility] [address] [id number] [place] [address]- 2544 Jun, [facility] [place] [facility] [address] [facility] [id number] [place] [address]- 9476 Jun, [facility] [place] [facility] [address] [facility] [id number] [place] [address]- 4603 May, [facility] [place] [facility] [address] [id number] [place] [address]- 4904 May, [facility] [place] [facility] [address] [id number] [place] [address]- 1763 Apr, [facility] [place] [facility] [address] [id number] [place] [address]- 3355 Apr, [facility] [place] [facility] [address] [id number] [place] [address]- 4416 Apr, [facility] [place] [facility] [address] [id number] [place] [address]- 8575 Apr, [facility] [place] [facility] [address] [id number] [place] [address]- 8382 Apr, [facility] [place] [facility] [address] [id number] [place] [address]- 0747 Apr, [facility] [place] [facility] [address] [id number] [address]- 6000 Apr, [facility] [place] [facility] [address] [id number] [place] [address]- 2074 Apr, [facility] [place] [facility] [address] [id number] [place] [address]- 8621 Apr, [facility] [place] [facility] [address] [id number] [place] [address]- 4030 Apr, [facility] [place] [facility] [address] [id number] [place] [address]- 6094 Apr, [facility] [place] [facility] [address] [id number] [place] [address]- 5013 Apr, [facility] [place] [facility] [address] [id number] [address]- 6478 Mar, [facility] [place] [facility] [address] [id number] [place] [address]- 8033 Mar, [facility] [place] [facility] [address] [id number] [place] [address]- 8833 Mar, [facility] [id number] [address]- 9056 Dec, [facility] [id number] 2869 Dec, [facility] [address] [address]- 4176 Dec, [facility] [address] 8958 Oct, [facility] [address] 7849 May, [facility] [address] [address] 0260 May, [facility] [address]- 4581 May, [facility] [id number] [address]- 5832 Dec, IMMUNIZATIONS No Known Immunizations SOCIAL HISTORY Never Assessed REASON FOR VISIT Rash Pt c/o rash for about six weeks, states she was given prednisone about 3 weeks ago which did not help rash at all CURTIS Cervantes PLAN OF CARE Activity Details Follow Up prn Reason: VITAL SIGNS Height 66 in 2017-11-03 Weight 233.8 lbs 2017-11-03 Temperature 98.5 degrees Fahrenheit 2017-11-03 Heart Rate 92 bpm 2017-11-03 Respiratory Rate 20 2017-11-03 BMI 37.73 kg/m2 2017-11-03 Blood pressure systolic 146 mmHg 2017-11-03 Blood pressure diastolic 90 mmHg 2017-11-03 MEDICATIONS Medication Instructions Dosage Frequency Start Date End Date Duration Status Advair Diskus 100-50 MCG/DOSE Inhalation Twice a day 1 puff 12h Active Premarin 0.9 MG Orally Once a day 1 tablet 24h Active Magnesium Active Calcium 600 MG Orally Once a day 1 tablet with meals 24h 30 days Active Hydrochlorothiazide 25 MG Orally Once a day 1 tablet in the morning 24h September, 90 days Active Multivitamin Gummies Adult Active Omeprazole 40 MG Orally Once a day 1 capsule 24h Active Fish Oil 1000 MG Orally Once a day 2 capsule 24h Active Abilify 30 MG Orally Once a day 1 tablet 24h Nov, Active Trihexyphenidyl HCl 2 MG Orally daily 0.5 tablet three times a day for one week and if tolerate can increase to full tablet three times a day 24h September 30 day(s) Active Loxapine Succinate 5 MG Orally at night 1 capsule Oct, Active Trazodone HCl 100 MG Orally at night as needed for sleep 1-2 tab Jun, 90 days Active Triamcinolone Acetonide 0.1 % Externally Twice a day 1 application to affected area 12h Jul, 7 days Active Vitamin D 2000 UNIT Orally Once a day 1 tablet 24h Active Cymbalta 60 MG Orally Once a day 1 Capsule 24h Active Linzess 145 MCG Orally Once a day 1 capsule 24h Jun, Mar, 90 days Active Albuterol Sulfate 108 (90 Base) MCG/ACT Inhalation every 4-6 hrs 1 puff as needed May, Active Diclofenac Sodium 75 MG Orally Twice a day 1 tablet with food or milk 12h Active Aspirin 81 MG Orally Once a day 1 tablet 24h Active Permethrin 5 % Externally Apply from neck to toe at bed time. Leave for 8-10 hours then shower off in am. as directed Oct, Oct, 1 days Active Melatonin 5 MG 1 tablet at bedtime as needed with food Active RESULTS No Results PROCEDURES Procedure Date Ordered Result Body Site [facility] VISIT ESTABLISHED PATIENT November 03, 2017 INSTRUCTIONS MEDICATIONS ADMINISTERED No Known Medications [...] Gall Bladder Surgical History Tubalization Hospitalization History [facility] 12/2014 Hospitalization History Obstructive Airway Disease, Mood disorder, cough-[facility] 1/31/16 Hospitalization History Bronchitis- [facility] 06/2016
--- OUTSIDE RECORDS SUMMARY | 2018-02-03 08:42 | XMS REPORT ---
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 Name Role Phone SHANTAL TOWNSEND Unavailable PROBLEMS Type Condition ICD9-CM Code ZIA10-OB Code Onset Dates Condition Status SNOMED Code Problem Slow transit constipation K59.01 Active 30428943 Problem Bipolar disorder, current episode mixed, mild F31.61 Active 129507229 Problem Chronic obstructive pulmonary disease, unspecified COPD type J44.9 Active 86870145 Problem Bipolar II disorder F31.81 Active 64831351 Problem Post-traumatic stress disorder, chronic F43.12 Active 39351167 Problem Bipolar affective disorder, currently manic, mild F31.11 Active 903759828 Problem Lumbago with sciatica, left side M54.42 Active 216370269 Problem Essential hypertension I10 Active 39663400 Problem Other chronic pain G89.29 Active 38016080 Problem Bipolar disorder, in partial remission, most recent episode mixed F31.77 Active 58825302 Problem Paresthesias R20.2 Active 38791565 Problem Irritable bowel syndrome with both constipation and diarrhea K58.2 Active [id number] ALLERGIES No Information ENCOUNTERS Encounter Location Date Diagnosis [facility] [id number] [place] [address] 60226- 4998 Jan, [facility] [id number] [place] [address] 28266- 7057 Jan, [facility] [id number] [place] [address] 89377- 1771 Jan, [facility] [id number] [place] [address] 37820- 2952 Dec, [facility] [id number] [place] [address] 78366- 1257 Nov, Bipolar II disorder F31.81 and Post-traumatic stress disorder, chronic F43.12 [facility] [id number] [place] [address] 96826- 5435 Nov, Essential hypertension I10 ; Lymph node enlargement R59.9 ; Paresthesias R20.2 ; Irritable bowel syndrome with both constipation and diarrhea K58.2 ; Lumbago with sciatica, left side M54.42 and Other chronic pain G89.29 [facility] [id number] [place] [address] 49400- 3331 Nov, Bipolar disorder, in partial remission, most recent episode mixed F31.77 [facility] [id number] [place] [address] 17578- 0088 Oct, Bipolar disorder, in partial remission, most recent episode mixed F31.77 [facility] [id number] [place] [address] 14108 -7619 Oct, Scabies B86 [facility] [id number] [place] [address] 27968- 7601 Oct, Bipolar disorder, in partial remission, most recent episode mixed F31.77 [facility] [id number] [place] [address] 23628- 4442 Oct, [facility] [id number] [place] [address] 07544- 0842 Oct, Bipolar II disorder F31.81 and Post-traumatic stress disorder, chronic F43.12 [facility] [id number] [place] [address] 63632 -9149 Oct, Scabies B86 [facility] [id number] [place] [address] 17181- 1031 Oct, [facility] [id number] [place] [address] 95310- 8832 September, Bipolar II disorder F31.81 and Post-traumatic stress disorder, chronic F43.12 [facility] [id number] [place] [address] 76297- 8864 September, Bipolar disorder, in partial remission, most recent episode mixed F31.77 [place] [address] 92486- 3954 September, COPD exacerbation J44.1 and Elevated blood pressure reading R03.0 [place] [address] 15187- 8286 September, [facility] [address] 10268- 5639 September, Pain in left ankle and joints of left foot M25.572 ; Dermatitis L30.9 and Other chronic pain G89.29 [place] [address] 69635- 1041 Aug, Right elbow pain M25.521 and Elevated blood pressure reading R03.0 [place] [address] 17103- 8324 Aug, Bipolar disorder, current episode mixed, mild F31.61 and BMI 40.0-44.9, adult Z68.41 [place] [address] 68004- 9934 Aug, [facility] [id number] [place] [address] 88497- 6735 Aug, Bipolar II disorder F31.81 and Post-traumatic stress disorder, chronic F43.12 [facility] [id number] [place] [address] 96614- 9068 Jul, Elevated blood pressure reading R03.0 [place] [address] 55859- 3477 Jul, Bipolar II disorder F31.81 and Post-traumatic stress disorder, chronic F43.12 [facility] [id number] [place] [address] 84856- 8391 Jul, Bipolar disorder, current episode mixed, mild F31.61 [facility] [id number] [place] [address] 36006 -2390 12 Jul, 2017 Right foot pain M79.671 ; Allergic contact dermatitis, unspecified trigger L23.9 ; Contusion of right foot, initial encounter S90.31XA and BMI 40.0-44.9, adult Z68.41 [facility] [address] 40162 -6143 02 Jul, 2017 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 [place] [address] 15110- 0680 Jul, [address] 27696- 5171 15 Jul, 2017 Bipolar disorder, current episode mixed, mild F31.61 [place] [address] 74241- 8163 15 Jul, 2017 Bipolar II disorder F31.81 ; Post-traumatic stress disorder , chronic F43.12 and Memory change R41.3 [place] [address] 06157- 5785 14 Jul, 2017 Elevated blood pressure reading R03.0 ; Chronic obstructive pulmonary disease, unspecified COPD type J44.9 ; Long-term use of high-risk medication Z79.899 and Cognitive decline R41.89 [facility] [id number] [place] [address] 46631- 0701 06 Jul, 2017 Elevated blood pressure reading R03.0 [facility] [id number] [place] [address] 19508- 6992 05 Jul, 2017 [place] [address] 41258- 0323 01 Jul, 2017 Bipolar II disorder F31.81 ; Post-traumatic stress disorder , chronic F43.12 and Memory change R41.3 [place] [address] 11578- 4812 Jun, [facility] [id number] [place] [address] 05161- 5750 Jun, Bipolar II disorder F31.81 ; Post-traumatic stress disorder , chronic F43.12 and Memory change R41.3 [facility] [id number] [place] [address] 09685- 1878 10 Jun, 2017 Localized swelling, mass or lump of neck R22.1 ; Slow transit constipation K59.01 and Elevated blood pressure reading R03.0 [facility] [id number] [place] [address] 34023- 3273 Jun, [facility] [id number] [place] [address] 48038- 1566 Jun, Bipolar affective disorder, currently manic, mild F31.11 [facility] [place] [id number] [place] [address] 62116 -0745 15 May, 2017 [facility] [place] [id number] [place] [address] 41635 -6634 14 May, 2017 [place] [id number] [place] [address] 86520- 0560 May, Bipolar II disorder F31.81 ; Post-traumatic stress disorder , chronic F43.12 and Memory change R41.3 [facility] [id number] [place] [address] 97152- 4933 May, [facility] [id number] [place] [address] 33582- 8447 08 May, 2017 [facility] [facility] [id number] [place] [address] 87232- 0329 05 May, 2017 Bipolar affective disorder, currently manic, mild F31.11 [facility] [id number] [place] [address] 66770- 5461 04 May, 2017 [facility] [id number] [place] [address] 08903 -3427 May, Localized swelling, mass or lump of neck R22.1 and Localized swelling, mass and lump, head R22.0 [facility] [id number] [place] [address] 95753- 4830 Apr, [facility] [id number] [place] [address] 65689- 2978 Apr, Bipolar affective disorder, currently manic, mild F31.11 [facility] [address] 81801- 7099 Apr, Bipolar II disorder F31.81 [facility] [address] 53119- 6377 Apr, [facility] [address] 43975- 7550 Apr, Bipolar affective disorder, currently manic, mild F31.11 [facility] [id number] [place] [address] 49099- 1931 Apr, Actinic keratosis L57.0 [facility] [id number] [place] [address] 70110- 1266 Apr, Bipolar affective disorder, currently manic, mild F31.11 [facility] [id number] [place] [address] 19989- 1857 Apr, [facility] [id number] [place] [address] 82040 -2597 Mar, Allergic contact dermatitis, unspecified trigger L23.9 and Right leg pain M79.604 [facility] [id number] [place] [address] 82070- 4275 Mar, [facility] [address] 31720- 1263 Mar, Bipolar II disorder F31.81 ; Post-traumatic stress disorder , chronic F43.12 and Memory change R41.3 [place] [address] [address]- 1247 04 Mar, 2017 Actinic keratosis L57.0 [facility] [id number] [place] [address] 51930- 7185 Jan, Bipolar II disorder F31.81 ; Post-traumatic stress disorder , chronic F43.12 and Memory change R41.3 [facility] [id number] [place] [address] 45801- 7308 Jan, Bipolar affective disorder, currently manic, mild F31.11 [facility] [id number] [place] [address] 11224- 1953 13 Jan, 2017 Bipolar affective disorder, currently manic, mild F31.11 [facility] [id number] [place] [address] 52271- 6124 Jan, Bipolar II disorder F31.81 ; Post-traumatic stress disorder , chronic F43.12 and Memory change R41.3 [facility] [id number] [place] [address] 57182- 4484 Dec, Bipolar II disorder F31.81 ; Post-traumatic stress disorder , chronic F43.12 and Memory change R41.3 [facility] [id number] [place] [address] 31789- 1212 Dec, Bipolar affective disorder, currently manic, mild F31.11 [facility] [id number] [place] [address] 27344- 3822 Dec, Bipolar affective disorder, currently manic, mild F31.11 [facility] [id number] [place] [address] 00297- 1645 Dec, Post-traumatic stress disorder, chronic F43.12 [facility] [id number] [place] [address] 52048- 1802 Dec, Bipolar II disorder F31.81 ; Post-traumatic stress disorder , chronic F43.12 and Memory change R41.3 [facility] [id number] [place] [address]- 2546 Dec, Post-traumatic stress disorder, chronic F43.12 [facility] [address] [address]- 4303 Nov, [facility] [address] [address]- 1350 Nov, Bipolar II disorder F31.81 ; Post-traumatic stress disorder , chronic F43.12 and Memory change R41.3 [facility] [address] [address]- 4244 Nov, [facility] [id number] [place] [address] 94230- 6250 Nov, Post-traumatic stress disorder, chronic F43.12 and Bipolar II disorder F31.81 [place] [address] [address]- 7136 Nov, Actinic keratosis L57.0 [facility] [address] [address]- 1751 Oct, Bipolar II disorder F31.81 ; Post-traumatic stress disorder , chronic F43.12 and Memory change R41.3 [facility] [address] [address]- 8097 Oct, Post-traumatic stress disorder, chronic F43.12 ; Bipolar II disorder F31.81 and Memory change R41.3 [place] [address] [address]- 1060 Oct, Bipolar II disorder F31.81 ; Post-traumatic stress disorder , chronic F43.12 and Memory change R41.3 [facility] [address] [address]- 9443 Oct, Actinic keratosis L57.0 [facility] [address] [address]- 4736 September, Bipolar II disorder F31.81 ; Post-traumatic stress disorder , chronic F43.12 and Memory change R41.3 [facility] [facility] [address] [address]- 2231 September, Bipolar II disorder F31.81 ; Post-traumatic stress disorder , chronic F43.12 and Memory change R41.3 [facility] [address] [address]- 5565 September, Post-traumatic stress disorder, chronic F43.12 ; Bipolar II disorder F31.81 and Memory change R41.3 [facility] [address] [address]- 8655 Jul, Bipolar II disorder F31.81 ; Post-traumatic stress disorder , chronic F43.12 and Memory change R41.3 [facility] [address] [address]- 5860 Jul, Bipolar II disorder F31.81 ; Post-traumatic stress disorder , chronic F43.12 and Memory change R41.3 [facility] [address] [address]- 9569 Jul, Bipolar II disorder F31.81 ; Post-traumatic stress disorder , chronic F43.12 and Memory change R41.3 [facility] [address] [address]- 3531 Jul, Post-traumatic stress disorder, chronic F43.12 ; Bipolar II disorder F31.81 and Memory change R41.3 [facility] [address] [address]- 1955 Jul, Tear of medial meniscus of right knee, unspecified tear type , unspecified whether old or current tear, initial encounter S83.241A [facility] [id number] [place] [address] 32932- 0651 Jul, Bipolar II disorder F31.81 ; Post-traumatic stress disorder , chronic F43.12 and Memory change R41.3 [place] [id number] [place] [address] 49481- 5175 07 Jul, 2016 Shortness of breath R06.02 ; Mixed hyperlipidemia E78.2 and Chronic fatigue R53.82 [place] [id number] [place] [address] 17237- 8675 07 Jul, 2016 Bipolar II disorder F31.81 ; Post-traumatic stress disorder , chronic F43.12 and Memory change R41.3 [place] [id number] [place] [address] 97561- 1382 Jul, [facility] [id number] [place] [address] 51599- 2196 Jun, Bipolar II disorder F31.81 ; Post-traumatic stress disorder , chronic F43.12 and Memory change R41.3 [facility] [id number] [place] [address] 29397- 7257 Jun, Post-traumatic stress disorder, chronic F43.12 ; Bipolar II disorder F31.81 and Memory change R41.3 [place] [id number] [place] [address] 77450- 4025 Jun, Right anterior knee pain M25.561 ; Shortness of breath R06.02 and Bronchiolitis J21.9 [place] [id number] [place] [address] 55846- 6160 Jun, [facility] [id number] [place] [address] 60330- 7793 Jun, Bipolar II disorder F31.81 ; Post-traumatic stress disorder , chronic F43.12 and Memory change R41.3 [place] [id number] [place] [address] 47690- 1754 Jun, [place] [id number] [place] [address] 27360- 3655 Jun, Bipolar II disorder F31.81 ; Post-traumatic stress disorder , chronic F43.12 and Memory change R41.3 [place] [id number] [place] [address] 88866- 9958 May, [facility] [address] [address]- 0246 May, [facility] [id number] [place] [address] 82672- 7386 May, [facility] [id number] [place] [address] 74978- 7066 May, Right anterior knee pain M25.561 ; Cough R05 ; Skin lesion of right arm L98.9 and Lesion of skin of face L98.9 [facility] [address] [place] [address] 09628- 4186 May, [facility] [id number] [place] [address] 11737- 0696 May, Post-traumatic stress disorder, chronic F43.12 ; Memory change R41.3 and Bipolar I disorder, most recent episode manic F31.10 [facility] [id number] [place] [address] 48558- 5126 May, [facility] [id number] [place] [address] 07453- 7682 May, Right anterior knee pain M25.561 [facility] [id number] [place] [address] 65499- 4386 May, [facility] [id number] [place] [address] 37266- 3469 Apr, Bipolar II disorder F31.81 ; Post-traumatic stress disorder , chronic F43.12 and Memory change R41.3 [facility] [id number] [address]- 4266 Apr, Bipolar II disorder F31.81 ; Post-traumatic stress disorder , chronic F43.12 and Memory change R41.3 [facility] [address] [address]- 4006 Apr, Post-traumatic stress disorder, chronic F43.12 ; Bipolar II disorder F31.81 and Memory change R41.3 [place] [id number] [place] [address] 06774- 6495 Mar, Bipolar II disorder F31.81 ; Post-traumatic stress disorder , chronic F43.12 and Memory change R41.3 [place] [id number] [place] [address] 39469- 7378 Mar, Memory change R41.3 ; Confusion R41.0 and Dizziness R42 [place] [id number] [place] [address] 32755- 1379 Mar, Memory change R41.3 ; Encounter for immunization Z23 and Fatigue, unspecified type R53.83 [place] [id number] [place] [address] 33497- 5167 Mar, Bipolar II disorder F31.81 ; Post-traumatic stress disorder , chronic F43.12 and Memory change R41.3 [place] [id number] [place] [address] 50166- 2817 Jan, Bipolar II disorder F31.81 ; Post-traumatic stress disorder , chronic F43.12 and Memory change R41.3 [place] [id number] [place] [address] 25930- 1499 Jan, Post-traumatic stress disorder, chronic F43.12 ; Bipolar II disorder F31.81 ; Anxiety disorder, unspecified F41.9 and Memory change R41.3 [place] [id number] [place] [address] 70977- 6267 15 Feb, 2016 Bipolar II disorder F31.81 ; Post-traumatic stress disorder , chronic F43.12 and Memory change R41.3 [place] [id number] [place] [address] 72739- 5231 Dec, Bipolar II disorder F31.81 ; Post-traumatic stress disorder , chronic F43.12 and Memory change R41.3 [place] [id number] [place] [address] 99903- 1869 Dec, Memory loss R41.3 [facility] [id number] [place] [address] 67340- 5975 Dec, Bipolar II disorder F31.81 ; Post-traumatic stress disorder , chronic F43.12 and Memory change R41.3 [facility] [id number] [place] [address] 38525- 0455 Nov, Bipolar II disorder F31.81 and Post-traumatic stress disorder, chronic F43.12 [facility] [id number] [place] [address] 24954- 0440 Nov, Bipolar II disorder F31.81 ; Post-traumatic stress disorder , chronic F43.12 and Memory change R41.3 [facility] [id number] [place] [address] 62221- 8281 Oct, Post-traumatic stress disorder, chronic F43.12 and Bipolar disorder, unspecified F31.9 [facility] [id number] [place] [address] 18182- 1275 Oct, Bipolar II disorder F31.81 ; Post-traumatic stress disorder , chronic F43.12 and Memory change R41.3 [facility] [id number] [place] [address] [id number] Oct, Dental examination Z01.20 [facility] [id number] [place] [address] 68733- 0269 September, Bipolar II disorder F31.81 ; Post-traumatic stress disorder , chronic F43.12 and Memory change R41.3 [facility] [id number] [place] [address] 75084- 3283 Aug, Bipolar II disorder F31.81 and Post-traumatic stress disorder, chronic F43.12 [facility] [id number] [place] [address] 87125452- 8467 Aug, Bipolar II disorder F31.81 and Post-traumatic stress disorder, chronic F43.12 [facility] [id number] [place] [address] 99637- 0228 Jul, Bipolar II disorder F31.81 and Post-traumatic stress disorder, chronic F43.12 [place] [id number] [place] [address]- 7901 Jul, [facility] [id number] [place] [address] 99266- 8848 Jul, [facility] [id number] [place] [address] 92001- 1105 Jul, Post-traumatic stress disorder, chronic F43.12 and Bipolar disorder, unspecified F31.9 [place] [id number] [place] [address] 1941 Jun, Bipolar II disorder F31.81 and Post-traumatic stress disorder, chronic F43.12 [place] [id number] [place] [address] 440388- 3919 Jun, Post-traumatic stress disorder, chronic F43.12 and Bipolar disorder, unspecified F31.9 [place] [id number] [place] [address] 83356- 8236 Jun, [place] [id number] [place] [address] 07656- 1445 Jun, Pharyngeal dysphagia R13.13 ; Hoarseness R49.0 and Cough R05 [place] [id number] [place] [address] 15701- 6118 Jun, Post-traumatic stress disorder, chronic F43.12 and Bipolar disorder, unspecified F31.9 [place] [id number] [place] [address] 78864- 2799 May, Cough R05 [place] [id number] [place] [address]- 9339 May, Post-traumatic stress disorder, chronic F43.12 and Bipolar disorder, unspecified F31.9 [place] [address] [place] [id number] [place] [phone] May, Cough R05 [facility] [id number] [address] May, [facility] [id number] [id number] May, Dental examination Z01.20 [facility] [id number] [place] [address] 35770- 2795 15 May, 2015 Bipolar II disorder F31.81 and Post-traumatic stress disorder, chronic F43.12 [facility] [id number] [place] [address] 17741- 1109 14 May, 2015 [facility] [id number] [place] [address] 16448- 9224 14 May, 2015 Bipolar II disorder F31.81 and Anxiety disorder, unspecified F41.9 [facility] [id number] [place] [address] 00858- 0805 10 May, 2015 Memory change R41.3 and History of renal insufficiency syndrome Z87.448 [facility] [id number] [place] [address] 98246- 3420 03 May, 2015 Memory change R41.3 ; Dry mouth R68.2 and History of renal insufficiency syndrome Z87.448 [facility] [id number] [place] [address] 07850- 4010 May, Bipolar II disorder F31.81 and Post-traumatic stress disorder, chronic F43.12 [facility] [id number] [place] [address] 22372- 4233 Mar, Bipolar disorder, unspecified F31.9 and Generalized anxiety disorder F41.1 [facility] [id number] [place] [address] 69022- 1625 Mar, Bipolar II disorder F31.81 [facility] [id number] [place] [address] 96817- 2139 Mar, Encounter for immunization Z23 [facility] [id number] [address] 7265 Mar, [facility] [id number] [place] [address] 00927- 2084 Mar, Bipolar II disorder F31.81 [facility] [id number] [place] [address] 035488- 8775 Mar, [facility] [id number] [place] [address] 82645- 5858 Jan, Bipolar disorder, unspecified 296.80 and Anxiety disorder 300.00 [facility] [id number] [place] [address] 47678- 4435 Jan, [facility] [id number] [place] [address] 95111- 2295 Jan, Bipolar disorder, unspecified 296.80 and Anxiety disorder 300.00 [facility] [id number] [place] [address] 31512- 0945 Dec, Bipolar disorder, unspecified 296.80 and Anxiety disorder 300.00 [facility] [id number] [place] [address] 08093- 3070 Dec, [facility] [id number] [place] [address] 02215- 6632 Dec, Bipolar disorder, unspecified 296.80 and Anxiety disorder 300.00 [facility] [id number] [place] [address] 03536- 8622 Nov, Bipolar disorder, unspecified 296.80 and Anxiety disorder 300.00 [facility] [address] [address] 7669 Oct, Bipolar disorder, unspecified 296.80 and Anxiety disorder 300.00 [facility] [id number] [place] [address] 07501- 5975 Oct, Anxiety 300.00 and Bipolar disorder, unspecified 296.80 [facility] [id number] [place] [address] 08717- 3274 September, Bipolar disorder, unspecified 296.80 and Anxiety disorder 300.00 [facility] [address] [address] 7971 September, [facility] [id number] [address] 8320 Aug, Cough 786.2 [facility] [id number] [place] [address] 280529- 0726 Aug, [facility] [id number] [place] [address] 560552- 5056 Aug, [facility] [id number] [place] [address] 890664- 8133 Jul, [facility] [id number] 9151 Jul, [facility] [id number] [place] [address] 82288- 8008 Jul, [facility] [id number] [address]- 5485 Jul, [facility] [address] [address]- 5254 Jul, [facility] [id number] [address]- 2633 Jul, [facility] [id number] [address]- 8490 Jun, [facility] [id number] [address] Jun, [facility] [id number] [address] Jun, [facility] [id number] [address]- 2879 Jun, [facility] [id number] [address]- 4623 May, [facility] [place] [facility] [address] [id number] [place] [address]- 3660 May, [facility] [place] [facility] [address] [id number] [place] [address] May, [facility] [place] [facility] [address] [id number] [place] 2898 May, [facility] [place] [facility] [address] [id number] [place] [address]- 5418 Apr, [facility] [place] [facility] [address] [id number] [place] [address]- 9320 Apr, [facility] [place] [facility] [address] [id number] [place] [address]- 4150 Mar, [facility] [place] [facility] [address] [id number] [place] [address]- 8616 Mar, [facility] [place] [facility] [address] [id number] [place] [address]- 8068 Mar, [facility] [place] [facility] [address] [id number] [place] [address]- 6379 Mar, [facility] [place] [facility] [address] [id number] [place] [address]- 7681 Mar, [facility] [place] [facility] [address] [id number] [address]- 1068 Mar, [facility] [place] [facility] [address] [id number] [place] [address]- 2646 Jan, [facility] [place] [facility] [address] [id number] [place] [address]- 5234 Jan, [facility] [place] [facility] [address] [id number] [place] [address]- 1707 Jan, [facility] [place] [facility] [address] [id number] [place] [address]- 7973 Jan, [facility] [place] [facility] [address] [id number] [place] [address]- 1815 Jan, [facility] [place] [facility] [address] [id number] [place] [address]- 2429 Jan, [facility] [place] [facility] [address] [id number] [place] [address]- 5664 Dec, [facility] [place] [facility] [address] [id number] [place] [address]- 9654 Dec, [facility] [place] [facility] [address] [id number] [place] [address]- 3034 Dec, [facility] [place] [facility] [address] [id number] [place] [address]- 4477 Dec, [facility] [place] [facility] [address] [id number] [place] [address]- 5417 Dec, [facility] [place] [facility] [address] [id number] [place] [address]- 5610 Dec, [facility] [place] [facility] [address] [id number] [place] [address]- 1517 Nov, [facility] [place] [facility] [address] [id number] [place] [address]- 0570 Nov, [facility] [place] [facility] [address] [id number] [place] [address]- 7827 Nov, [facility] [place] [facility] [address] [id number] [place] [address]- 4533 Nov, [facility] [place] [facility] [address] [id number] [place] [address]- 6557 Nov, [facility] [place] [facility] [address] [id number] [place] [address]- 3459 Nov, [facility] [place] [facility] [address] [id number] [place] [address]- 1988 Nov, [facility] [place] [facility] [address] [id number] [place] [address]- 6614 Nov, [facility] [place] [facility] [address] [id number] [place] [address]- 0126 Nov, [facility] [place] [facility] [address] [id number] [place] [address]- 7777 Nov, [facility] [place] [facility] [address] [id number] [place] [address]- 1207 September, [facility] [place] [facility] [address] [id number] [place] [address]- 6237 September, [facility] [place] [facility] [address] [id number] [place] [address]- 8632 September, [facility] [place] [facility] [address] [id number] [place] [address]- 7723 September, [facility] [place] [facility] [address] [id number] [place] [address]- 9754 September, [facility] [place] [facility] [address] [id number] [place] [address]- 8175 September, [facility] [place] [facility] [address] [id number] [place] [address]- 1222 September, [facility] [place] [facility] [address] [id number] [place] [address]- 1385 September, [facility] [place] [facility] [address] [id number] [place] [address]- 0038 Aug, [facility] [place] [facility] [address] [id number] [place] [address]- 7809 Aug, [facility] [place] [facility] [address] [id number] [place] [address]- 2474 Aug, [facility] [place] [facility] [address] [id number] [place] [address]- 5245 Aug, [facility] [place] [facility] [address] [id number] [place] [address]- 5350 Jul, [facility] [place] [facility] [address] [id number] [place] [address]- 9705 Jul, [facility] [place] [facility] [address] [id number] [place] [address]- 8846 Jul, [facility] [place] [facility] [address] [id number] [place] [address]- 1726 Jul, [facility] [place] [facility] [address] [id number] [place] [address]- 5956 18 Jul, 2013 [facility] [place] [facility] [address] [id number] [place] [address] 2546 Jul, [facility] [place] [facility] [address] [id number] [place] [address]- 7276 Jul, [facility] [place] [facility] [address] [id number] [place] [address]- 0936 Jul, [facility] [place] [facility] [address] [id number] [place] [address]- 2506 Jul, [facility] [place] [facility] [address] [id number] [place] [address]- 2724 Jul, [facility] [place] [facility] [address] [facility] [id number] [place] [address]- 2717 Jul, [facility] [place] [facility] [address] [facility] [id number] [place] [address]- 9967 Jun, [facility] [place] [facility] [address] [facility] [id number] [place] [address]- 4741 Jun, [facility] [place] [facility] [address] [id number] [place] [address]- 2542 Jun, [facility] [place] [facility] [address] [id number] [place] [address]- 0406 Jun, [facility] [place] [facility] [address] [facility] [id number] [place] [address]- 2996 May, [facility] [place] [facility] [address] [facility] [id number] [place] [address]- 9455 May, [facility] [place] [facility] [address] [id number] [place] [address]- 2383 Apr, [facility] [place] [facility] [address] [id number] [place] [address]- 7047 Apr, [facility] [place] [facility] [address] [id number] [place] [address]- 6051 Apr, [facility] [place] [facility] [address] [id number] [place] [address]- 1177 Apr, [facility] [place] [facility] [address] [id number] [place] [address]- 9648 Apr, [facility] [place] [facility] [address] [id number] [place] [address]- 2302 Apr, [facility] [place] [facility] [address] [id number] [place] [address]- 9766 Apr, [facility] [place] [facility] [address] [id number] [place] [address]- 8905 Apr, [facility] [place] [facility] [address] [id number] [place] [address]- 8393 Apr, [facility] [place] [facility] [address] [id number] [place] [address]- 8193 Apr, [facility] [place] [facility] [address] [id number] [place] [address]- 5513 Apr, [facility] [place] [facility] [address] [id number] [place] [address]- 8096 Apr, [facility] [place] [facility] [address] [id number] [place] [address]- 7248 Mar, [facility] [place] [facility] [address] [id number] [place] [address]- 0773 Mar, [facility] [place] [facility] [address] [id number] [place] [address]- 5701 Mar, [facility] [place] [facility] [address] [facility] [id number] [place] [address]- 0341 Dec, [facility] [id number] [address]- 2746 Dec, [facility] [id number] [address]- 7372 Dec, [facility] [id number] [address]- 8955 Oct, [facility] [id number] [address]- 6257 May, [facility] [id number] [address]- 9643 May, [facility] [id number] [address]- 4889 May, [facility] [id number] [address]- 5166 Dec, IMMUNIZATIONS No Known Immunizations SOCIAL HISTORY Never Assessed REASON FOR VISIT f/u PLAN OF CARE Activity Details Follow Up 2 Weeks Reason: VITAL SIGNS MEDICATIONS Unknown Medications RESULTS No Results PROCEDURES Procedure Date Ordered Result Body Site [facility] VISIT MENTAL HEALTH ESTAB PT November 10, 2017 Psychotherapy, patient &/family, 30 minutes, established patient November 10, 2017 INSTRUCTIONS MEDICATIONS ADMINISTERED No Known Medications [...] Gall Bladder Surgical History Tubalization Hospitalization History [facility] 12/2014 Hospitalization History Obstructive Airway Disease, Mood disorder, cough-[facility] 07/02/15 Hospitalization History Bronchitis- [facility] 06/2016
--- OUTSIDE RECORDS SUMMARY | 2018-02-03 08:43 | XMS REPORT ---
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 Name Role Phone LUCILADREW AJ Unavailable PROBLEMS Type Condition ICD9-CM Code BXV91-NI Code Onset Dates Condition Status SNOMED Code Problem Slow transit constipation K59.01 Active 16448638 Problem Bipolar disorder, current episode mixed, mild F31.61 Active 902622046 Problem Chronic obstructive pulmonary disease, unspecified COPD type J44.9 Active 02188840 Problem Bipolar II disorder F31.81 Active 43873281 Problem Post-traumatic stress disorder, chronic F43.12 Active 75720670 Problem Bipolar affective disorder, currently manic, mild F31.11 Active 685181868 Problem Lumbago with sciatica, left side M54.42 Active 992940310 Problem Essential hypertension I10 Active 41096938 Problem Other chronic pain G89.29 Active 36515823 Problem Bipolar disorder, in partial remission, most recent episode mixed F31.77 Active 73401967 Problem Paresthesias R20.2 Active 61832668 Problem Irritable bowel syndrome with both constipation and diarrhea K58.2 Active 62595150 ALLERGIES Substance Reaction Event Type Date Status Xanax memory problems, mental disorganization Non Drug Allergy Aug, Active Silk tape rash Non Drug Allergy Aug, Active ENCOUNTERS Encounter Location Date Diagnosis [facility] [address] [facility] [address] [id number] [address] Jan, [facility] [id number] [place] [address] 59243- 7210 Jan, [facility] [address] [address] Jan, [facility] [id number] [place] [address] 19420- 7033 Dec, [facility] [id number] [place] [address] 87662- 3284 Nov, Bipolar II disorder F31.81 and Post-traumatic stress disorder, chronic F43.12 [facility] [id number] [place] [address] 81856- 3410 Nov, Essential hypertension I10 ; Lymph node enlargement R59.9 ; Paresthesias R20.2 ; Irritable bowel syndrome with both constipation and diarrhea K58.2 ; Lumbago with sciatica, left side M54.42 and Other chronic pain G89.29 [facility] [id number] [place] [address] 18411- 0136 Nov, Bipolar disorder, in partial remission, most recent episode mixed F31.77 [facility] [id number] [place] [address] 89693- 1150 Oct, Bipolar disorder, in partial remission, most recent episode mixed F31.77 [facility] [id number] [place] [address] 86172 -3259 Oct, Scabies B86 [facility] [id number] [place] [address] 60911- 6791 Oct, Bipolar disorder, in partial remission, most recent episode mixed F31.77 [facility] [id number] [place] [address] 84082- 4822 Oct, [facility] [id number] [place] [address] 27690- 0313 Oct, Bipolar II disorder F31.81 and Post-traumatic stress disorder, chronic F43.12 [facility] [id number] [place] [address] 12529 -3174 Oct, Scabies B86 [facility] [id number] [place] [address] 25842- 8880 Oct, [facility] [id number] [place] [address] 04479- 1745 September, Bipolar II disorder F31.81 and Post-traumatic stress disorder, chronic F43.12 [facility] [id number] [place] [address] 20391- 1173 September, Bipolar disorder, in partial remission, most recent episode mixed F31.77 [place] [address] 26661- 8270 September, COPD exacerbation J44.1 and Elevated blood pressure reading R03.0 [place] [address] 36880- 9807 September, [place] [address] 67515- 9104 September, Pain in left ankle and joints of left foot M25.572 ; Dermatitis L30.9 and Other chronic pain G89.29 [place] [address] 39256- 7869 Aug, Right elbow pain M25.521 and Elevated blood pressure reading R03.0 [place] [id number] [place] [address] 88643- 0863 Aug, Bipolar disorder, current episode mixed, mild F31.61 and BMI 40.0-44.9, adult Z68.41 [place] [id number] [place] [address] 03858- 1595 Aug, [place] [address] 03581- 0862 Aug, Bipolar II disorder F31.81 and Post-traumatic stress disorder, chronic F43.12 [place] [address] 72420- 7679 Jul, Elevated blood pressure reading R03.0 [place] [address] 89890- 6924 Jul, Bipolar II disorder F31.81 and Post-traumatic stress disorder, chronic F43.12 [place] [id number] [place] [address] 85438- 2571 15 Jul, 2017 Bipolar disorder, current episode mixed, mild F31.61 [facility] [place] [id number] [place] [address] 49438 -6775 12 Jul, 2017 Right foot pain M79.671 ; Allergic contact dermatitis, unspecified trigger L23.9 ; Contusion of right foot, initial encounter S90.31XA and BMI 40.0-44.9, adult Z68.41 [facility] [place] [id number] [place] [address] 50875 -4372 02 Jul, 2017 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 48307- 1353 22 Jul, [address] 38826- 8984 15 Jul, 2017 Bipolar disorder, current episode mixed, mild F31.61 [place] [id number] [place] [address] 22142- 5434 15 Jul, 2017 Bipolar II disorder F31.81 ; Post-traumatic stress disorder , chronic F43.12 and Memory change R41.3 [place] [id number] [place] [address] 83844- 5747 14 Jul, 2017 Elevated blood pressure reading R03.0 ; Chronic obstructive pulmonary disease, unspecified COPD type J44.9 ; Long-term use of high-risk medication Z79.899 and Cognitive decline R41.89 [place] [address] [place] [address] 34661- 4239 06 Jul, 2017 Elevated blood pressure reading R03.0 [place] [id number] [place] [address] 47384- 3669 05 Jul, 2017 [place] [id number] [place] [address] 10668- 0411 01 Jul, 2017 Bipolar II disorder F31.81 ; Post-traumatic stress disorder , chronic F43.12 and Memory change R41.3 [facility] [id number] [place] [address] 53677- 7403 18 Jun, 2017 [facility] [id number] [place] [address] 39285- 0946 18 Jun, 2017 Bipolar II disorder F31.81 ; Post-traumatic stress disorder , chronic F43.12 and Memory change R41.3 [place] [id number] [place] [address] 72979- 6516 10 Jun, 2017 Localized swelling, mass or lump of neck R22.1 ; Slow transit constipation K59.01 and Elevated blood pressure reading R03.0 [place] [id number] [place] [address] 94258- 2212 Jun, [place] [id number] [place] [address] 83161- 9576 Jun, Bipolar affective disorder, currently manic, mild F31.11 [facility] [id number] [place] [address] 35692 -4103 15 May, 2017 [facility] [id number] [place] [address] 28048 -0101 14 May, 2017 [facility] [id number] [place] [address] 64181- 5595 13 May, 2017 Bipolar II disorder F31.81 ; Post-traumatic stress disorder , chronic F43.12 and Memory change R41.3 [facility] [id number] [place] [address] 74199- 7253 11 May, 2017 [facility] [id number] [place] [address] 56231- 4969 08 May, 2017 [place] [id number] [place] [address] 12879- 0448 05 May, 2017 Bipolar affective disorder, currently manic, mild F31.11 [place] [id number] [place] [address] 80745- 0101 May, [facility] [address] [address] May, Localized swelling, mass or lump of neck R22.1 and Localized swelling, mass and lump, head R22.0 [facility] [id number] [place] [address] 54358- 0634 Apr, [facility] [id number] [place] [address] 79975- 4660 Apr, Bipolar affective disorder, currently manic, mild F31.11 [facility] [id number] [place] [address] 44465- 2539 Apr, Bipolar II disorder F31.81 [facility] [id number] [place] [address] 54456- 5995 Apr, [facility] [id number] [place] [address] 27468- 3818 Apr, Bipolar affective disorder, currently manic, mild F31.11 [facility] [id number] [place] [address] 58713- 4088 Apr, Actinic keratosis L57.0 [facility] [id number] [place] [address] 39265- 1604 Apr, Bipolar affective disorder, currently manic, mild F31.11 [facility] [id number] [place] [address] 48034- 7852 Apr, [facility] [id number] [place] [address] 77894 -4244 Mar, Allergic contact dermatitis, unspecified trigger L23.9 and Right leg pain M79.604 [facility] [address] [place] [address] 56056- 2084 Mar, [facility] [id number] [place] [address] 35950- 1814 Mar, Bipolar II disorder F31.81 ; Post-traumatic stress disorder , chronic F43.12 and Memory change R41.3 [facility] [address] [address]- 0359 04 Mar, 2017 Actinic keratosis L57.0 [facility] [address], [place] [address]- 4647 28 Jan, 2017 Bipolar II disorder F31.81 ; Post-traumatic stress disorder , chronic F43.12 and Memory change R41.3 [facility] [id number] [address]- 8727 28 Jan, 2017 Bipolar affective disorder, currently manic, mild F31.11 [facility] [id number] [place] [address] 41689- 0424 13 Jan, 2017 Bipolar affective disorder, currently manic, mild F31.11 [facility] [id number] [place] [address] 70426- 1034 Jan, Bipolar II disorder F31.81 ; Post-traumatic stress disorder , chronic F43.12 and Memory change R41.3 [facility] [address] [place] [address] 19234- 1205 Dec, Bipolar II disorder F31.81 ; Post-traumatic stress disorder , chronic F43.12 and Memory change R41.3 [facility] [address], [place] [address]- 4553 Dec, Bipolar affective disorder, currently manic, mild F31.11 [facility] [address], [place] [address]- 2156 Dec, Bipolar affective disorder, currently manic, mild F31.11 [facility] [address], [place] [address]- 8203 Dec, Post-traumatic stress disorder, chronic F43.12 [facility] [address], [place] [address]- 2172 Dec, Bipolar II disorder F31.81 ; Post-traumatic stress disorder , chronic F43.12 and Memory change R41.3 [facility] [address] [facility] [address] [id number] 6884 Dec, Post-traumatic stress disorder, chronic F43.12 [facility] [address] [facility] [id number], [place] [address]- 0656 Nov, [facility] [id number] [place] [address] 02177- 6662 Nov, Bipolar II disorder F31.81 ; Post-traumatic stress disorder , chronic F43.12 and Memory change R41.3 [facility] [address] [facility] [id number], [place] [address]- 9043 Nov, [facility] [id number] [place] [address] 74577- 7773 Nov, Post-traumatic stress disorder, chronic F43.12 and Bipolar II disorder F31.81 [facility] [id number] [place] [address] 69915- 0008 Nov, Actinic keratosis L57.0 [facility] [id number] [place] [address] 86676- 4625 Oct, Bipolar II disorder F31.81 ; Post-traumatic stress disorder , chronic F43.12 and Memory change R41.3 [facility] [id number] [address]- 4358 Oct, Post-traumatic stress disorder, chronic F43.12 ; Bipolar II disorder F31.81 and Memory change R41.3 [facility] [id number] [address]- 0777 Oct, Bipolar II disorder F31.81 ; Post-traumatic stress disorder , chronic F43.12 and Memory change R41.3 [facility] [id number] [address]- 6660 Oct, Actinic keratosis L57.0 [facility] [id number] [place] [address] 56725- 5282 September, Bipolar II disorder F31.81 ; Post-traumatic stress disorder , chronic F43.12 and Memory change R41.3 [place] [address] [place] [address]- 6437 September, Bipolar II disorder F31.81 ; Post-traumatic stress disorder , chronic F43.12 and Memory change R41.3 [place] [address] [place] [address] 47119- 5043 September, Post-traumatic stress disorder, chronic F43.12 ; Bipolar II disorder F31.81 and Memory change R41.3 [place] [id number] [place] [address]- 9236 Jul, Bipolar II disorder F31.81 ; Post-traumatic stress disorder , chronic F43.12 and Memory change R41.3 [place] [id number] [place] [address] 61646- 8254 Jul, Bipolar II disorder F31.81 ; Post-traumatic stress disorder , chronic F43.12 and Memory change R41.3 [place] [address] [place] [address] 82958- 5943 Jul, Bipolar II disorder F31.81 ; Post-traumatic stress disorder , chronic F43.12 and Memory change R41.3 [place] [address] [place] [address] 40812- 0293 Jul, Post-traumatic stress disorder, chronic F43.12 ; Bipolar II disorder F31.81 and Memory change R41.3 [place] [address] [place] [address] 06312- 5358 Jul, Tear of medial meniscus of right knee, unspecified tear type , unspecified whether old or current tear, initial encounter S83.241A [facility] [address] [place] [address] 80040- 2505 Jul, Bipolar II disorder F31.81 ; Post-traumatic stress disorder , chronic F43.12 and Memory change R41.3 [facility] [address] [place] [address] 23898- 7326 07 Jul, 2016 Shortness of breath R06.02 ; Mixed hyperlipidemia E78.2 and Chronic fatigue R53.82 [facility] [id number] [place] [address] 44783- 5186 07 Jul, 2016 Bipolar II disorder F31.81 ; Post-traumatic stress disorder , chronic F43.12 and Memory change R41.3 [place] [id number] [place] [address] 58527- 8490 02 Jul, 2016 [place] [id number] [place] [address] 16565- 3695 Jun, Bipolar II disorder F31.81 ; Post-traumatic stress disorder , chronic F43.12 and Memory change R41.3 [place] [id number] [place] [address] 95694- 1431 Jun, Post-traumatic stress disorder, chronic F43.12 ; Bipolar II disorder F31.81 and Memory change R41.3 [place] [id number] [place] [address] 71300- 9759 Jun, Right anterior knee pain M25.561 ; Shortness of breath R06.02 and Bronchiolitis J21.9 [place] [id number] [place] [address] 77793- 8508 Jun, [facility] [id number] [place] [address] 33274- 9824 Jun, Bipolar II disorder F31.81 ; Post-traumatic stress disorder , chronic F43.12 and Memory change R41.3 [place] [id number] [place] [address] 81390- 7903 Jun, [facility] [id number] [place] [address] 24831- 1715 Jun, Bipolar II disorder F31.81 ; Post-traumatic stress disorder , chronic F43.12 and Memory change R41.3 [facility] [address] [address]- 6656 May, [facility] [id number] [place] [address] 65799 2546 May, [facility] [id number] [place] [address] 52814- 7886 May, [facility] [id number] [place] [address] 45676 2546 May, Right anterior knee pain M25.561 ; Cough R05 ; Skin lesion of right arm L98.9 and Lesion of skin of face L98.9 [facility] [id number] [place] [address] 35508- 8646 May, [facility] [id number] [place] [address] 17556- 4626 May, Post-traumatic stress disorder, chronic F43.12 ; Memory change R41.3 and Bipolar I disorder, most recent episode manic F31.10 [facility] [id number] [place] [address] 76289- 4106 May, [facility] [id number] [place] [address] 04237- 9856 May, Right anterior knee pain M25.561 [facility] [id number] [place] [address] 20888 2546 May, [facility] [id number] [place] [address] 71564- 2546 Apr, Bipolar II disorder F31.81 ; Post-traumatic stress disorder , chronic F43.12 and Memory change R41.3 [facility] [id number] [place] [address] 54125- 0576 Apr, Bipolar II disorder F31.81 ; Post-traumatic stress disorder , chronic F43.12 and Memory change R41.3 [facility] [id number] [place] [address] 10819- 2416 Apr, Post-traumatic stress disorder, chronic F43.12 ; Bipolar II disorder F31.81 and Memory change R41.3 [place] [address] [place] [address] 57412- 1341 Mar, Bipolar II disorder F31.81 ; Post-traumatic stress disorder , chronic F43.12 and Memory change R41.3 [place] [address] [place] [address] 70495- 3858 Mar, Memory change R41.3 ; Confusion R41.0 and Dizziness R42 [place] [id number] [place] [address] 25474- 6300 Mar, Memory change R41.3 ; Encounter for immunization Z23 and Fatigue, unspecified type R53.83 [place] [address] [address]- 3874 Mar, Bipolar II disorder F31.81 ; Post-traumatic stress disorder , chronic F43.12 and Memory change R41.3 [place] [address] [address]- 1918 Jan, Bipolar II disorder F31.81 ; Post-traumatic stress disorder , chronic F43.12 and Memory change R41.3 [place] [address] [address]- 2277 Jan, Post-traumatic stress disorder, chronic F43.12 ; Bipolar II disorder F31.81 ; Anxiety disorder, unspecified F41.9 and Memory change R41.3 [place] [address] [address]- 9745 15 Feb, 2016 Bipolar II disorder F31.81 ; Post-traumatic stress disorder , chronic F43.12 and Memory change R41.3 [facility] [address], [place] [address]- 1673 Dec, Bipolar II disorder F31.81 ; Post-traumatic stress disorder , chronic F43.12 and Memory change R41.3 [facility] [address] [address]- 0992 Dec, Memory loss R41.3 [facility] [address] [place] [address]- 0996 Dec, Bipolar II disorder F31.81 ; Post-traumatic stress disorder , chronic F43.12 and Memory change R41.3 [facility] [id number] [place] [address] 27390- 6159 Nov, Bipolar II disorder F31.81 and Post-traumatic stress disorder, chronic F43.12 [facility] [id number] [place] [address] 24452- 5841 Nov, Bipolar II disorder F31.81 ; Post-traumatic stress disorder , chronic F43.12 and Memory change R41.3 [facility] [id number] [place] [address] 24405- 7419 Oct, Post-traumatic stress disorder, chronic F43.12 and Bipolar disorder, unspecified F31.9 [facility] [address] [place] [address] 18475- 6267 Oct, Bipolar II disorder F31.81 ; Post-traumatic stress disorder , chronic F43.12 and Memory change R41.3 [facility] [address] [address] Oct, Dental examination Z01.20 [facility] [address] [place] [address] 01936- 3721 September, Bipolar II disorder F31.81 ; Post-traumatic stress disorder , chronic F43.12 and Memory change R41.3 [facility] [id number] [place] [address] 35478- 0159 Aug, Bipolar II disorder F31.81 and Post-traumatic stress disorder, chronic F43.12 [facility] [address] [address]- 3342 Aug, Bipolar II disorder F31.81 and Post-traumatic stress disorder, chronic F43.12 [place] [address] [place] [address]- 5172 Jul, Bipolar II disorder F31.81 and Post-traumatic stress disorder, chronic F43.12 [place] [id number] [place] [address] 83871- 2936 16 Jul, 2015 [place] [address] [place] [address]- 9836 Jul, [place] [id number] [place] [address] 013732- 0303 Jul, Post-traumatic stress disorder, chronic F43.12 and Bipolar disorder, unspecified F31.9 [place] [id number] [place] [address] 46105- 1930 Jun, Bipolar II disorder F31.81 and Post-traumatic stress disorder, chronic F43.12 [place] [id number] [place] [address] 9614 Jun, Post-traumatic stress disorder, chronic F43.12 and Bipolar disorder, unspecified F31.9 [place] [address] [place] [address] [id number] [place] [address] 31262- [phone] Jun, [place] [address] [place] [address] [id number] [place] [address] [id number]- 7600 Jun, Pharyngeal dysphagia R13.13 ; Hoarseness R49.0 and Cough R05 [place] [id number] [place] [address] [id number]- [address] Jun, Post-traumatic stress disorder, chronic F43.12 and Bipolar disorder, unspecified F31.9 [place] [address] [place] [address] [id number] [place], [place] [id number] May, Cough R05 [place] [address] [place] [address] [id number] [place] [address] [id number]- [address] May, Post-traumatic stress disorder, chronic F43.12 and Bipolar disorder, unspecified F31.9 [facility] [id number] [place] [address] [id number]- [id number] 22 May, 2015 Cough R05 [facility] [id number] [place] [address] [id number]- [phone] 16 May, 2015 [facility] [id number] [place] [address] [id number] May, 2015 Dental examination Z01.20 [facility] [id number] [place] [address] 38452- 7570 15 May, 2015 Bipolar II disorder F31.81 and Post-traumatic stress disorder, chronic F43.12 [facility] [id number] [place] [address] 91499- 3284 14 May, 2015 [facility] [id number] [place] [address] 02678- 7443 14 May, 2015 Bipolar II disorder F31.81 and Anxiety disorder, unspecified F41.9 [facility] [id number] [place] [address] 31949- 4017 10 May, 2015 Memory change R41.3 and History of renal insufficiency syndrome Z87.448 [facility] [id number] [place] [address] 15511- 6971 May, Memory change R41.3 ; Dry mouth R68.2 and History of renal insufficiency syndrome Z87.448 [facility] [id number] [place] [address] 77728- 8857 May, Bipolar II disorder F31.81 and Post-traumatic stress disorder, chronic F43.12 [facility] [id number] [place] [address] 36934- 5060 30 Mar, 2015 Bipolar disorder, unspecified F31.9 and Generalized anxiety disorder F41.1 [facility] [id number] [place] [address] 52572- 3662 Mar, Bipolar II disorder F31.81 [facility] [id number] [address] 2[address] Mar, Encounter for immunization Z23 [facility] [id number] [place] [address] 29311- 6694 Mar, [facility] [id number] [place] [address] 85966- 7843 Mar, Bipolar II disorder F31.81 [facility] [id number] [place] [address] 85200- 2012 Mar, [facility] [id number] [place] [address] 16782- 2656 Jan, Bipolar disorder, unspecified 296.80 and Anxiety disorder 300.00 [facility] [id number] [place] [address] 90511- 4133 Jan, [facility] [id number] [place] [address] 11419- 8187 Jan, Bipolar disorder, unspecified 296.80 and Anxiety disorder 300.00 [facility] [id number] [place] [address] 52528- 1812 Dec, Bipolar disorder, unspecified 296.80 and Anxiety disorder 300.00 [facility] [id number] [place] [address] 19409- 4214 Dec, [facility] [id number] [place] [address] 81677- 3377 Dec, Bipolar disorder, unspecified 296.80 and Anxiety disorder 300.00 [facility] [id number] [place] [address] 81889- 6276 Nov, Bipolar disorder, unspecified 296.80 and Anxiety disorder 300.00 [facility] [id number] [place] [address] 24303- 1492 Oct, Bipolar disorder, unspecified 296.80 and Anxiety disorder 300.00 [facility] [id number] [place] [address] 19602- 1408 Oct, Anxiety 300.00 and Bipolar disorder, unspecified 296.80 [facility] [address] September, Bipolar disorder, unspecified 296.80 and Anxiety disorder 300.00 [facility] [address] [place] [address]- 2286 September, [facility] [id number] [place] [address] 38881- 3205 Aug, Cough 786.2 [facility] [id number] [place] [address] 79746- 5167 Aug, [facility] [id number] [place] [address] 96708- 8184 Aug, [facility] [id number] 9611 Jul, [facility] [id number] [place] [address] 16409- 0721 Jul, [facility] [address] [address]- 0420 Jul, [facility] [address] [address]- 7789 Jul, [facility] [address], [place] [address]- 3390 Jul, [facility] [address] [address]- 8526 Jul, [facility] [address] 9238 Jun, [facility] [address] 1636 Jun, [facility] [address] 6128 Jun, [facility] [address] [place] [address]- 6535 Jun, [facility] [place] [facility] [address] [id number] [place] [address]- 5408 May, [facility] [place] [facility] [address] [id number] [place] [address]- 1910 May, [facility] [place] [facility] [address] [id number] [place] 5393 May, [facility] [place] [facility] [address] [id number] [place] 7075 May, [facility] [place] [facility] [address] [id number] [place] [address]- 3317 Apr, [facility] [place] [facility] [address] [id number] [place] [address]- 9913 Apr, [facility] [place] [facility] [address] [id number] [place] [address]- 0719 Mar, [facility] [place] [facility] [address] [id number] [place] [address]- 9901 Mar, [facility] [place] [facility] [address] [id number] [place] [address]- 4962 Mar, [facility] [place] [facility] [address] [id number] [place] [address]- 8510 Mar, [facility] [place] [facility] [address] [id number] [place] [address]- 8532 Mar, [facility] [place] [facility] [address] [id number] [place] [address]- 3845 Mar, [facility] [place] [facility] [address] [id number] [place] [address]- 8810 Jan, [facility] [place] [facility] [address] [id number] [place] [address]- 4711 Jan, [facility] [place] [facility] [address] [id number] [place] 8767 Jan, [facility] [place] [facility] [address] [id number] [place] [address]- 6733 05 Jan, 2013 [facility] [place] [facility] [address] [id number] [place] [address]- 6921 Jan, [facility] [place] [facility] [address] [id number] [place] [address]- 3896 Jan, [facility] [place] [facility] [address] [id number] [place] [address]- 1671 Dec, [facility] [place] [facility] [address] [id number] [place] [address]- 0424 Dec, [facility] [place] [facility] [address] [id number] [place] [address]- 9157 Dec, [facility] [place] [facility] [address] [id number] [place] [address]- 3666 Dec, [facility] [place] [facility] [address] [id number] [place] [address]- 8674 Dec, [facility] [place] [facility] [address] [id number] [place] [address]- 9024 Dec, [facility] [place] [facility] [address] [id number] [place] [address]- 6085 Nov, [facility] [place] [facility] [address] [id number] [place] [address]- 3031 Nov, [facility] [place] [facility] [address] [id number] [place] [address]- 5742 Nov, [facility] [place] [facility] [address] [id number] [place] [address]- 3569 Nov, [facility] [place] [facility] [address] [id number] [place] [address]- 4301 Nov, [facility] [place] [facility] [address] [id number] [place] [address]- 2260 Nov, [facility] [place] [facility] [address] [id number] [place] [address]- 6992 Nov, [facility] [place] [facility] [address] [id number] [place] [address]- 3223 Nov, [facility] [place] [facility] [address] [id number] [place] [address]- 6449 Nov, [facility] [place] [facility] [address] [id number] [place] [address]- 8155 Nov, [facility] [place] [facility] [address] [id number] [place] [address]- 2924 September, [facility] [place] [facility] [address] [id number] [place] [address]- 8405 September, [facility] [place] [facility] [address] [id number] [place] [address]- 2598 September, [facility] [place] [facility] [address] [id number] [place] [address]- 0064 September, [facility] [place] [facility] [address] [id number] [place] [address]- 2033 September, [facility] [place] [facility] [address] [id number] [place] [address]- 8508 September, [facility] [place] [facility] [address] [id number] [place] [address]- 4795 September, [facility] [place] [facility] [address] [id number] [place] [address]- 7263 September, [facility] [place] [facility] [address] [id number] [place] [address]- 0328 Aug, [facility] [place] [facility] [address] [id number] [place] [address]- 5603 Aug, [facility] [place] [facility] [address] [id number] [place] [address]- 8353 Aug, [facility] [place] [facility] [address] [id number] [place] 0980 Aug, [facility] [place] [facility] [address] [id number] [place] [address]- 9688 Jul, [facility] [place] [facility] [address] [id number] [place] [address]- 9232 Jul, [facility] [place] [facility] [address] [id number] [place] [address]- 5526 Jul, [facility] [place] [facility] [address] [id number] [place] [address]- 7946 Jul, [facility] [place] [facility] [address] [id number] [place] [address]- 6554 Jul, [facility] [place] [facility] [address] [id number] [place] [address]- 8146 Jul, [facility] [place] [facility] [address] [id number] [place] [address]- 0976 Jul, [facility] [place] [facility] [address] [facility] [id number] [place] [address]- 8185 Jul, [facility] [place] [facility] [address] [id number] [place] [address]- 9230 Jul, [facility] [place] [facility] [address] [facility] [id number] [place] [address]- 9199 Jul, [facility] [place] [facility] [address] [facility] [id number] [place] [address]- 7097 Jul, [facility] [place] [facility] [address] [facility] [id number] [place] [address]- 0127 Jun, [facility] [place] [facility] [address] [id number] [place] [address]- 4671 Jun, [facility] [place] [facility] [address] [id number] [place] [address]- 4022 Jun, [facility] [place] [facility] [address] [facility] [id number] [place] [address]- 5996 Jun, [facility] [place] [facility] [address] [facility] [id number] [place] [address]- 8759 May, [facility] [place] [facility] [address] [id number] [place] [address]- 8854 May, [facility] [place] [facility] [address] [id number] [place] [address]- 9653 Apr, [facility] [place] [facility] [address] [id number] [place] [address]- 4430 Apr, [facility] [place] [facility] [address] [id number] [place] [address]- 7937 Apr, [facility] [place] [facility] [address] [id number] [place] [address]- 8871 Apr, [facility] [place] [facility] [address] [id number] [place] [address]- 3882 Apr, [facility] [place] [facility] [address] [id number] [place] [address]- 8492 Apr, [facility] [place] [facility] [address] [id number], [place] [address]- 1394 Apr, [facility] [place] [facility] [address] [id number] [place] [address]- 1940 Apr, [facility] [place] [facility] [address] [id number], [place] [address]- 3909 Apr, [facility] [place] [facility] [address] [id number], [place] [address]- 0440 Apr, [facility] [place] [facility] [address] [id number], [place] [address]- 2877 Apr, [facility] [place] [facility] [address] [id number] [place] [address]- 1315 Apr, [facility] [place] [facility] [address] [id number], [place] [address]- 0196 Mar, [facility] [place] [facility] [address] [id number], [place] [address]- 8369 Mar, [facility] [place] [facility] [address] [id number], [place] [address]- 3809 Mar, [facility] [address] [place] [address]- 6425 Dec, [facility] [id number] [address]- 4863 Dec, [facility] [address], [place] [address]- 9611 Dec, [facility] [address], [place] [address]- 7308 Oct, [facility] [address], [place] [address]- 6996 May, [facility] [address], [place] [address]- 9204 May, [facility] [address], [place] [address]- 9140 May, [facility] [id number] [address]- 7304 Dec, IMMUNIZATIONS No Known Immunizations SOCIAL HISTORY Never Assessed REASON FOR VISIT f/u Ericka PLAN OF CARE Activity Details Follow Up 6 Weeks Reason: VITAL SIGNS Height 66 in 2017-09-16 Weight 256.7 lbs 2017-09-16 Heart Rate 96 bpm 2017-09-16 Respiratory Rate 20 2017-09-16 BMI 41.43 kg/m2 2017-09-16 Blood pressure systolic 150 mmHg 2017-09-16 Blood pressure diastolic 92 mmHg 2017-09-16 MEDICATIONS Medication Instructions Dosage Frequency Start Date End Date Duration Status Melatonin 5 MG 1 tablet at bedtime as needed with food Active Advair Diskus 100-50 MCG/DOSE Inhalation Twice a day 1 puff 12h Active Multivitamin Gummies Adult Active Aspirin 81 MG Orally Once a day 1 tablet 24h Active Fish Oil 1000 MG Orally Once a day 2 capsule 24h Active Cymbalta 60 MG Orally Once a day 1 Capsule 24h 30 days Active Calcium 600 MG Orally Once a day 1 tablet with meals 24h 30 days Active Magnesium Active Vitamin D 2000 UNIT Orally Once a day 1 tablet 24h Active Omeprazole 40 mg Orally Once a day 1 capsule 24h 11 May, 2017 90 days Active Albuterol Sulfate 108 (90 Base) MCG/ACT Inhalation every 4-6 hrs 1 puff as needed May, Active Abilify 30 MG Orally Once a day 1 tablet 24h 17 Nov, 2016 30 days Active Hydrochlorothiazide 12.5 MG Orally Once a day 1 capsule in the morning 24h 30 day(s) Active Premarin 0.9 MG Orally Once a day 1 tablet 24h Active Loxapine Succinate 5 MG Orally at night 1 capsule Oct, 30 days Active Linzess 145 MCG Orally Once a day 1 capsule 24h Jun, Mar, 90 days Active Trazodone HCl 100 MG Orally at night as needed for sleep 1-2 tab Jun, 30 days Active Triamcinolone Acetonide 0.1 % Externally Twice a day 1 application to affected area 12h Jul, 7 days Active RESULTS No Results PROCEDURES Procedure Date Ordered Result Body Site [facility] VISIT ESTABLISHED PATIENT September 16, 2017 INSTRUCTIONS MEDICATIONS ADMINISTERED No Known Medications [...] Gall Bladder Surgical History Tubalization Hospitalization History [facility] 12/2014 Hospitalization History Obstructive Airway Disease, Mood disorder, cough-[facility] 07/02/15 Hospitalization History Bronchitis- [facility] 06/2016
--- OUTSIDE RECORDS SUMMARY | 2018-02-03 08:44 | XMS REPORT ---
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 Name Role Phone MARYSOL CANSECO Unavailable PROBLEMS Type Condition ICD9-CM Code [id number] Code Onset Dates Condition Status SNOMED Code Problem Slow transit constipation K59.01 Active 65097258 Problem Bipolar disorder, current episode mixed, mild F31.61 Active 786143900 Problem Chronic obstructive pulmonary disease, unspecified COPD type J44.9 Active 80477529 Problem Bipolar II disorder F31.81 Active 06528198 Problem Post-traumatic stress disorder, chronic F43.12 Active 93132999 Problem Bipolar affective disorder, currently manic, mild F31.11 Active 909451751 Problem Lumbago with sciatica, left side M54.42 Active 419069383 Problem Essential hypertension I10 Active 11377511 Problem Other chronic pain G89.29 Active 07823221 Problem Bipolar disorder, in partial remission, most recent episode mixed F31.77 Active 38644162 Problem Paresthesias R20.2 Active 36560313 Problem Irritable bowel syndrome with both constipation and diarrhea K58.2 Active 73780624 ALLERGIES Substance Reaction Event Type Date Status Xanax memory problems, mental disorganization Non Drug Allergy Aug, Active Silk tape rash Non Drug Allergy Aug, Active ENCOUNTERS Encounter Location Date Diagnosis [facility] [id number] [address] Jan, [facility] [id number] [place] [address] 28414- 1058 Jan, [facility] [address], [place] [address] Jan, [facility] [address] [place] [address] 08392- 7935 Dec, [facility] [id number] [place] [address] 32170- 3169 Nov, Bipolar II disorder F31.81 and Post-traumatic stress disorder, chronic F43.12 [facility] [id number] [place] [address] 09695- 7098 Nov, Essential hypertension I10 ; Lymph node enlargement R59.9 ; Paresthesias R20.2 ; Irritable bowel syndrome with both constipation and diarrhea K58.2 ; Lumbago with sciatica, left side M54.42 and Other chronic pain G89.29 [facility] [id number] [place] [address] 74168- 2286 Nov, Bipolar disorder, in partial remission, most recent episode mixed F31.77 [facility] [id number] [place] [address] 01167- 3797 Oct, Bipolar disorder, in partial remission, most recent episode mixed F31.77 [facility] [id number] [place] [address] 64936 -8087 Oct, Scabies B86 [facility] [id number] [place] [address] 43036- 9912 Oct, Bipolar disorder, in partial remission, most recent episode mixed F31.77 [facility] [id number] [place] [address] 16798- 1864 Oct, [facility] [id number] [place] [address] 07932- 6333 Oct, Bipolar II disorder F31.81 and Post-traumatic stress disorder, chronic F43.12 [facility] [id number] [place] [address] 58015 -4247 Oct, Scabies B86 [facility] [id number] [place] [address] 59165- 4635 Oct, [facility] [id number] [place] [address] 37890- 5535 September, Bipolar II disorder F31.81 and Post-traumatic stress disorder, chronic F43.12 [place] [address] 97273- 2405 September, Bipolar disorder, in partial remission, most recent episode mixed F31.77 [place] [address] 45588- 9341 September, COPD exacerbation J44.1 and Elevated blood pressure reading R03.0 [place] [address] 67371- 8136 September, [facility] [address] 41044- 4217 September, Pain in left ankle and joints of left foot M25.572 ; Dermatitis L30.9 and Other chronic pain G89.29 [place] [address] 55462- 9954 Aug, Right elbow pain M25.521 and Elevated blood pressure reading R03.0 [place] [address] 52701- 5242 Aug, Bipolar disorder, current episode mixed, mild F31.61 and BMI 40.0-44.9, adult Z68.41 [facility] [address] 22245- 2239 Aug, [facility] [address] 60239- 1748 Aug, Bipolar II disorder F31.81 and Post-traumatic stress disorder, chronic F43.12 [facility] [address] 05438- 3157 Jul, Elevated blood pressure reading R03.0 [facility] [address] 85397- 9114 Jul, Bipolar II disorder F31.81 and Post-traumatic stress disorder, chronic F43.12 [place] [address] [place] [address] 61668- 6041 15 Jul, 2017 Bipolar disorder, current episode mixed, mild F31.61 [facility] [place] [id number] [place] [address] 95731 -0110 12 Jul, 2017 Right foot pain M79.671 ; Allergic contact dermatitis, unspecified trigger L23.9 ; Contusion of right foot, initial encounter S90.31XA and BMI 40.0-44.9, adult Z68.41 [facility] [id number] [place] [address] 55223 -1495 Jul, 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 [id number] [place] [address] 11826- 9971 22 Jul, [address] 50722- 8159 15 Jul, 2017 Bipolar disorder, current episode mixed, mild F31.61 [facility] [facility] [id number] [place] [address] 45818- 3139 Jul, Bipolar II disorder F31.81 ; Post-traumatic stress disorder , chronic F43.12 and Memory change R41.3 [facility] [id number] [place] [address] 45283- 6349 14 Jul, 2017 Elevated blood pressure reading R03.0 ; Chronic obstructive pulmonary disease, unspecified COPD type J44.9 ; Long-term use of high-risk medication Z79.899 and Cognitive decline R41.89 [facility] [id number] [place] [address] 55506- 8288 06 Jul, 2017 Elevated blood pressure reading R03.0 [facility] [id number] [place] [address] 59156- 9131 05 Jul, 2017 [place] [id number] [place] [address] 41775- 8970 01 Jul, 2017 Bipolar II disorder F31.81 ; Post-traumatic stress disorder , chronic F43.12 and Memory change R41.3 [facility] [id number] [place] [address] 42919- 3504 18 Jun, 2017 [facility] [id number] [place] [address] 53124- 4686 Jun, Bipolar II disorder F31.81 ; Post-traumatic stress disorder , chronic F43.12 and Memory change R41.3 [facility] [id number] [place] [address] 80562- 9007 10 Jun, 2017 Localized swelling, mass or lump of neck R22.1 ; Slow transit constipation K59.01 and Elevated blood pressure reading R03.0 [place] [facility] [id number] [place] [address] 09690- 3154 Jun, [facility] [id number] [place] [address] 45331- 0581 Jun, Bipolar affective disorder, currently manic, mild F31.11 [facility] [address] [place] [address] 65921 -2919 15 May, 2017 [facility] [id number] [place] [address] 40328 -6152 14 May, 2017 [facility] [address] [place] [address] 27416- 4330 13 May, 2017 Bipolar II disorder F31.81 ; Post-traumatic stress disorder , chronic F43.12 and Memory change R41.3 [facility] [address] [place] [address] 83459- 4481 11 May, 2017 [facility] [id number] [place] [address] 86393- 9865 08 May, 2017 [facility] [address] [place] [address] 36033- 3413 05 May, 2017 Bipolar affective disorder, currently manic, mild F31.11 [place] [id number] [place] [address] 71336- 3993 May, [facility] [address] [address] May, Localized swelling, mass or lump of neck R22.1 and Localized swelling, mass and lump, head R22.0 [facility] [address] [place] [address] 25031- 1547 Apr, [facility] [id number] [place] [address] 11726- 4270 Apr, Bipolar affective disorder, currently manic, mild F31.11 [facility] [id number] [place] [address] 64237- 6126 Apr, Bipolar II disorder F31.81 [facility] [id number] [place] [address] 02047- 7621 Apr, [facility] [id number] [place] [address] 83566- 5694 Apr, Bipolar affective disorder, currently manic, mild F31.11 [facility] [id number] [place] [address] 64080- 9889 Apr, Actinic keratosis L57.0 [facility] [address] [place] [address] 51023- 4229 Apr, Bipolar affective disorder, currently manic, mild F31.11 [facility] [id number] [place] [address] 04923- 5345 Apr, [facility] [address] [place] [address] 24664 -6636 Mar, Allergic contact dermatitis, unspecified trigger L23.9 and Right leg pain M79.604 [facility] [address] [place] [address] 01669- 3146 Mar, [facility] [address] [place] [address] 54021- 2845 Mar, Bipolar II disorder F31.81 ; Post-traumatic stress disorder , chronic F43.12 and Memory change R41.3 [facility] [address], [place] [address]- 5443 04 Mar, 2017 Actinic keratosis L57.0 [facility] [id number], [place] [address]- 8864 28 Jan, 2017 Bipolar II disorder F31.81 ; Post-traumatic stress disorder , chronic F43.12 and Memory change R41.3 [facility] [address] [address]- 2047 28 Jan, 2017 Bipolar affective disorder, currently manic, mild F31.11 [facility] [id number] [place] [address] 04681- 1930 13 Jan, 2017 Bipolar affective disorder, currently manic, mild F31.11 [facility] [address], [place] [address]- 9676 Jan, Bipolar II disorder F31.81 ; Post-traumatic stress disorder , chronic F43.12 and Memory change R41.3 [facility] [address], [place] [address]- 9944 Dec, Bipolar II disorder F31.81 ; Post-traumatic stress disorder , chronic F43.12 and Memory change R41.3 [facility] [address], [place] [address]- 3064 Dec, Bipolar affective disorder, currently manic, mild F31.11 [facility] [address], [place] [address]- 2695 Dec, Bipolar affective disorder, currently manic, mild F31.11 [facility] [id number], [place] [address]- 9069 Dec, Post-traumatic stress disorder, chronic F43.12 [facility] [address], [place] [address]- 6477 Dec, Bipolar II disorder F31.81 ; Post-traumatic stress disorder , chronic F43.12 and Memory change R41.3 [facility] [address] [facility] [id number] [address]- 2308 Dec, Post-traumatic stress disorder, chronic F43.12 [facility] [address] [facility] [id number] [address]- 3265 Nov, [facility] [id number] [place] [address] 15277- 7778 Nov, Bipolar II disorder F31.81 ; Post-traumatic stress disorder , chronic F43.12 and Memory change R41.3 [facility] [id number], [place] [address]- 4934 Nov, [facility] [id number] [place] [address] 97987- 6089 Nov, Post-traumatic stress disorder, chronic F43.12 and Bipolar II disorder F31.81 [facility] [id number], [place] [address]- 8964 Nov, Actinic keratosis L57.0 [facility] [address] [place] [address] 29726- 5070 Oct, Bipolar II disorder F31.81 ; Post-traumatic stress disorder , chronic F43.12 and Memory change R41.3 [facility] [address], [place] [address]- 1877 Oct, Post-traumatic stress disorder, chronic F43.12 ; Bipolar II disorder F31.81 and Memory change R41.3 [facility] [id number], [place] [address]- 9092 Oct, Bipolar II disorder F31.81 ; Post-traumatic stress disorder , chronic F43.12 and Memory change R41.3 [facility] [id number], [place] [address]- 0774 Oct, Actinic keratosis L57.0 [facility] [id number] [place] [address] 78225- 6080 September, Bipolar II disorder F31.81 ; Post-traumatic stress disorder , chronic F43.12 and Memory change R41.3 [place] [address] [place] [address]63 September, Bipolar II disorder F31.81 ; Post-traumatic stress disorder , chronic F43.12 and Memory change R41.3 [place] [address] [place] [address] 44635- 0204 September, Post-traumatic stress disorder, chronic F43.12 ; Bipolar II disorder F31.81 and Memory change R41.3 [place] [address] [place] [address] 8478 Jul, Bipolar II disorder F31.81 ; Post-traumatic stress disorder , chronic F43.12 and Memory change R41.3 [place] [address] [place] [address] 27614- 7621 Jul, Bipolar II disorder F31.81 ; Post-traumatic stress disorder , chronic F43.12 and Memory change R41.3 [place] [address] [place] [address] 42005- 1810 Jul, Bipolar II disorder F31.81 ; Post-traumatic stress disorder , chronic F43.12 and Memory change R41.3 [place] [address], [place] [address]- 9134 Jul, Post-traumatic stress disorder, chronic F43.12 ; Bipolar II disorder F31.81 and Memory change R41.3 [place] [address] [place] [address] 03800- 9565 Jul, Tear of medial meniscus of right knee, unspecified tear type , unspecified whether old or current tear, initial encounter S83.241A [facility] [id number] [address]- 8246 Jul, Bipolar II disorder F31.81 ; Post-traumatic stress disorder , chronic F43.12 and Memory change R41.3 [facility] [address] [place] [address] 27093- 5150 07 Jul, 2016 Shortness of breath R06.02 ; Mixed hyperlipidemia E78.2 and Chronic fatigue R53.82 [facility] [address] [place] [address] 81556- 2649 07 Jul, 2016 Bipolar II disorder F31.81 ; Post-traumatic stress disorder , chronic F43.12 and Memory change R41.3 [place] [id number] [place] [address] 45272- 0602 Jul, [place] [id number] [place] [address] 10721- 1527 Jun, Bipolar II disorder F31.81 ; Post-traumatic stress disorder , chronic F43.12 and Memory change R41.3 [place] [id number] [place] [address] 93681- 5151 Jun, Post-traumatic stress disorder, chronic F43.12 ; Bipolar II disorder F31.81 and Memory change R41.3 [facility] [id number] [place] [address] 97409- 4696 Jun, Right anterior knee pain M25.561 ; Shortness of breath R06.02 and Bronchiolitis J21.9 [facility] [place] [id number] [place] [address] 61658- 4611 Jun, [facility] [place] [id number] [place] [address] 46514- 9188 Jun, Bipolar II disorder F31.81 ; Post-traumatic stress disorder , chronic F43.12 and Memory change R41.3 [place] [id number] [place] [address] 98996- 7457 Jun, [place] [address] [place] [address] 12390- 2881 Jun, Bipolar II disorder F31.81 ; Post-traumatic stress disorder , chronic F43.12 and Memory change R41.3 [facility] [address] [place] [address] 74480- 3966 May, [facility] [id number] [place] [address] 19157 2546 May, [facility] [address] [place] [address] 87621- 8646 May, [facility] [id number] [place] [address] 16781 2546 May, Right anterior knee pain M25.561 ; Cough R05 ; Skin lesion of right arm L98.9 and Lesion of skin of face L98.9 [facility] [id number] [place] [address] 46690 2546 May, [facility] [id number] [place] [address] 32607- 1216 May, Post-traumatic stress disorder, chronic F43.12 ; Memory change R41.3 and Bipolar I disorder, most recent episode manic F31.10 [facility] [id number] [place] [address] 21575- 2406 May, [facility] [id number] [place] [address] 31390- 7256 May, Right anterior knee pain M25.561 [facility] [address] [place] [address] 89054 2546 May, [facility] [address] [place] [address] 93184- 2546 Apr, Bipolar II disorder F31.81 ; Post-traumatic stress disorder , chronic F43.12 and Memory change R41.3 [facility] [address] [place] [address] 20765- 1376 Apr, Bipolar II disorder F31.81 ; Post-traumatic stress disorder , chronic F43.12 and Memory change R41.3 [facility] [id number] [place] [address] 81027- 8643 Apr, Post-traumatic stress disorder, chronic F43.12 ; Bipolar II disorder F31.81 and Memory change R41.3 [place] [address] [place] [address] 66405- 0310 Mar, Bipolar II disorder F31.81 ; Post-traumatic stress disorder , chronic F43.12 and Memory change R41.3 [facility] [id number] [place] [address] 58832- 9555 Mar, Memory change R41.3 ; Confusion R41.0 and Dizziness R42 [facility] [id number] [place] [address] 87569- 4821 Mar, Memory change R41.3 ; Encounter for immunization Z23 and Fatigue, unspecified type R53.83 [facility] [id number] [place] [address] 32339- 3603 Mar, Bipolar II disorder F31.81 ; Post-traumatic stress disorder , chronic F43.12 and Memory change R41.3 [place] [address] [place] [address] 32757- 1351 Jan, Bipolar II disorder F31.81 ; Post-traumatic stress disorder , chronic F43.12 and Memory change R41.3 [place] [address] [place] [address] 71329- 1198 Jan, Post-traumatic stress disorder, chronic F43.12 ; Bipolar II disorder F31.81 ; Anxiety disorder, unspecified F41.9 and Memory change R41.3 [place] [address] [place] [address] 83974- 4641 15 Feb, 2016 Bipolar II disorder F31.81 ; Post-traumatic stress disorder , chronic F43.12 and Memory change R41.3 [place] [address] [address]- 2104 Dec, Bipolar II disorder F31.81 ; Post-traumatic stress disorder , chronic F43.12 and Memory change R41.3 [facility] [address], [place] [address]- 3770 Dec, Memory loss R41.3 [facility] [id number] [place] [address] 71349- 0226 Dec, Bipolar II disorder F31.81 ; Post-traumatic stress disorder , chronic F43.12 and Memory change R41.3 [facility] [address] [place] [address] 96127- 2655 Nov, Bipolar II disorder F31.81 and Post-traumatic stress disorder, chronic F43.12 [facility] [address] [place] [address] 47165- 4454 Nov, Bipolar II disorder F31.81 ; Post-traumatic stress disorder , chronic F43.12 and Memory change R41.3 [facility] [address] [place] [address] 78097- 5379 Oct, Post-traumatic stress disorder, chronic F43.12 and Bipolar disorder, unspecified F31.9 [facility] [address] [place] [address] 11036- 0578 Oct, Bipolar II disorder F31.81 ; Post-traumatic stress disorder , chronic F43.12 and Memory change R41.3 [facility] [address] [address] Oct, Dental examination Z01.20 [facility] [address] [place] [address] 14709- 0838 September, Bipolar II disorder F31.81 ; Post-traumatic stress disorder , chronic F43.12 and Memory change R41.3 [facility] [address] [place] [address] 00040- 9831 Aug, Bipolar II disorder F31.81 and Post-traumatic stress disorder, chronic F43.12 [facility] [address] [place] [address] 24270- 4196 Aug, Bipolar II disorder F31.81 and Post-traumatic stress disorder, chronic F43.12 [place] [address] [place] [address] 2276 Jul, Bipolar II disorder F31.81 and Post-traumatic stress disorder, chronic F43.12 [facility] [place] [id number] [place] [address] 94958- 9736 16 Jul, 2015 [facility] [id number] [place] [address]- 4216 Jul, [facility] [id number] [place] [address] 74332- 0979 Jul, Post-traumatic stress disorder, chronic F43.12 and Bipolar disorder, unspecified F31.9 [facility] [place] [id number] [place] [address] 81019- 2982 Jun, Bipolar II disorder F31.81 and Post-traumatic stress disorder, chronic F43.12 [facility] [id number] [place] [address] 28951- 7464 Jun, Post-traumatic stress disorder, chronic F43.12 and Bipolar disorder, unspecified F31.9 [facility] [id number] [place] [address] 95189- 7309 Jun, [facility] [id number] [place] [address] 84564- 3185 Jun, Pharyngeal dysphagia R13.13 ; Hoarseness R49.0 and Cough R05 [facility] [address] [place] [address] 14520- 9130 Jun, Post-traumatic stress disorder, chronic F43.12 and Bipolar disorder, unspecified F31.9 [facility] [id number] [place] 1208 May, Cough R05 [facility] [id number] [place] [address] 36735- 6886 May, Post-traumatic stress disorder, chronic F43.12 and Bipolar disorder, unspecified F31.9 [facility] [address] [address]- 5552 22 May, 2015 Cough R05 [facility] [address] [place] [address] 43223- 0064 16 May, 2015 [facility] [address] [place] [address] [id number] 16 May, 2015 Dental examination Z01.20 [facility] [id number] [place] [address] 40715- 2856 15 May, 2015 Bipolar II disorder F31.81 and Post-traumatic stress disorder, chronic F43.12 [facility] [id number] [place] [address] [phone] 14 May, 2015 [facility] [id number] [place] [address] [phone] 14 May, 2015 Bipolar II disorder F31.81 and Anxiety disorder, unspecified F41.9 [facility] [id number] [place] [address] [phone] 10 May, 2015 Memory change R41.3 and History of renal insufficiency syndrome Z87.448 [facility] [address] [id number] [place] [address] 94530- 0724 May, Memory change R41.3 ; Dry mouth R68.2 and History of renal insufficiency syndrome Z87.448 [facility] [id number] [place] [address] 52178- 4821 May, Bipolar II disorder F31.81 and Post-traumatic stress disorder, chronic F43.12 [facility] [id number] [place] [address] 57945- 1173 Mar, Bipolar disorder, unspecified F31.9 and Generalized anxiety disorder F41.1 [facility] [address] [address] Mar, Bipolar II disorder F31.81 [facility] [address] [place] [address] Mar, Encounter for immunization Z23 [facility] [id number] [place] [address] 99565- 4875 Mar, [facility] [id number] [place] [address] 50639- 9374 Mar, Bipolar II disorder F31.81 [facility] [id number] [place] [address] 06458- 2542 Mar, [facility] [id number] [place] [address] 84329- 4465 Jan, Bipolar disorder, unspecified 296.80 and Anxiety disorder 300.00 [facility] [id number] [place] [address] 30969- 4401 Jan, [facility] [id number] [place] [address] 64004- 7612 Jan, Bipolar disorder, unspecified 296.80 and Anxiety disorder 300.00 [facility] [id number] [place] [address] 89958- 8797 Dec, Bipolar disorder, unspecified 296.80 and Anxiety disorder 300.00 [facility] [id number] [place] [address] 05812- 5444 Dec, [facility] [id number] [place] [address] 60467- 5056 Dec, Bipolar disorder, unspecified 296.80 and Anxiety disorder 300.00 [facility] [id number] [place] [address] 40075- 9579 Nov, Bipolar disorder, unspecified 296.80 and Anxiety disorder 300.00 [facility] [id number] [place] [address] 00371- 6760 Oct, Bipolar disorder, unspecified 296.80 and Anxiety disorder 300.00 [facility] [id number] [place] [address] 09411- 6011 Oct, Anxiety 300.00 and Bipolar disorder, unspecified 296.80 [facility] [address] [address] 14[address] September, Bipolar disorder, unspecified 296.80 and Anxiety disorder 300.00 [facility] [address] [address] 8566 September, [facility] [id number] [place] [address] 90150- 5610 Aug, Cough 786.2 [facility] [id number] [place] [address] 34924- 8394 Aug, [facility] [id number] [place] [address] 730215- 0248 Aug, [facility] [address] [address] 0827 Jul, [facility] [id number] [place] [address] 68413- 0564 Jul, [facility] [address] 3216 Jul, [facility] [address] 6756 Jul, [facility] [address] [address]- 3679 Jul, [facility] [address] [address]- 6645 Jul, [facility] [address] [address]- 1264 Jun, [facility] [address] [place] [address]- 8916 Jun, [facility] [address] [address]- 6346 Jun, [facility] [address] [address]- 1492 Jun, [facility] [place] [facility] [address] [id number] [place] [address]- 0958 May, [facility] [place] [facility] [address] [id number] [place] [address]777 May, [facility] [place] [facility] [address] [id number] [place] [address]- 1831 May, [facility] [place] [facility] [address] [id number] [place] [address]- 5283 May, [facility] [place] [facility] [address] [id number] [place] [address]- 1350 Apr, [facility] [place] [facility] [address] [id number] [place] [address]- 7079 Apr, [facility] [place] [facility] [address] [id number] [place] [address]- 4119 Mar, [facility] [place] [facility] [address] [id number] [place] [address]- 7701 Mar, [facility] [place] [facility] [address] [id number] [place] [address]- 6988 Mar, [facility] [place] [facility] [address] [id number] [place] [address]- 8422 Mar, [facility] [place] [facility] [address] [id number], [place] [address]- 1655 Mar, [facility] [place] [facility] [address] [id number], [place] [address]- 7695 Mar, [facility] [place] [facility] [address] [id number] [place] [address]- 5310 Jan, [facility] [place] [facility] [address] [id number] [place] [address]- 9063 Jan, [facility] [place] [facility] [address] [id number] [place] [address]- 4199 Jan, [facility] [place] [facility] [address] [id number] [place] [address]- 9951 05 Jan, 2013 [facility] [place] [facility] [address] [id number] [place] [address]- 7762 Jan, [facility] [place] [facility] [address] [id number] [place] [address]- 7526 Jan, [facility] [place] [facility] [address] [id number] [place] [address]- 9367 Dec, [facility] [place] [facility] [address] [id number] [place] [address]- 3992 Dec, [facility] [place] [facility] [address] [id number] [place] [address]- 0332 Dec, [facility] [place] [facility] [address] [id number] [place] [address]- 0378 Dec, [facility] [place] [facility] [address] [id number] [place] [address]- 1457 Dec, [facility] [place] [facility] [address] [id number] [place] [address]- 6484 Dec, [facility] [place] [facility] [address] [id number] [place] [address]- 5344 Nov, [facility] [place] [facility] [address] [id number] [place] [address]- 0351 Nov, [facility] [place] [facility] [address] [id number] [place] [address]- 7919 Nov, [facility] [place] [facility] [address] [id number] [place] [address]- 0948 Nov, [facility] [place] [facility] [address] [id number] [place] [address]- 9770 Nov, [facility] [place] [facility] [address] [id number] [place] [address]- 9986 Nov, [facility] [place] [facility] [address] [id number] [place] [address]- 5894 Nov, [facility] [place] [facility] [address] [id number] [place] [address]- 2487 Nov, [facility] [place] [facility] [address] [id number] [place] [address]- 5731 Nov, [facility] [place] [facility] [address] [id number] [place] [address]- 9673 Nov, [facility] [place] [facility] [address] [id number] [place] [address]- 2728 September, [facility] [place] [facility] [address] [id number] [place] [address]- 0767 September, [facility] [place] [facility] [address] [id number] [place] [address]- 5010 September, [facility] [place] [facility] [address] [id number] [place] [address]- 7050 September, [facility] [place] [facility] [address] [id number] [place] [address]- 9047 September, [facility] [place] [facility] [address] [id number] [place] [address]- 1225 September, [facility] [place] [facility] [address] [id number] [place] [address]- 9346 September, [facility] [place] [facility] [address] [id number] [place] [address]- 6834 September, [facility] [place] [facility] [address] [id number] [place] [address]- 6098 Aug, [facility] [place] [facility] [address] [id number] [place] [address]- 4834 Aug, [facility] [place] [facility] [address] [id number] [place] [address]- 0062 Aug, [facility] [place] [facility] [address] [id number] [place] [address]- 1358 Aug, [facility] [place] [facility] [address] [id number] [place] [address]- 0952 07 Jul, 2013 [facility] [place] [facility] [address] [id number] [place] [address]- 0481 Jul, [facility] [place] [facility] [address] [id number] [place] [address]- 0566 Jul, [facility] [place] [facility] [address] [id number] [place] [address]- 4096 Jul, [facility] [place] [facility] [address] [id number] [place] [address]- 5332 18 Jul, 2013 [facility] [place] [facility] [address] [id number] [place] [address]- 3566 Jul, [facility] [place] [facility] [address] [id number] [place] [address]- 9416 Jul, [facility] [place] [facility] [address] [id number] [place] [address]- 8556 Jul, [facility] [place] [facility] [address] [id number] [place] [address]- 2007 Jul, [facility] [place] [facility] [address] [id number] [place] [address]- 3470 Jul, [facility] [place] [facility] [address] [facility] [id number] [place] [address]- 8879 Jul, [facility] [place] [facility] [address] [id number] [place] [address]- 2848 Jun, [facility] [place] [facility] [address] [id number] [place] [address]- 8150 Jun, [facility] [place] [facility] [address] [id number] [place] [address]- 9176 Jun, [facility] [place] [facility] [address] [id number] [place] [address]- 7026 Jun, [facility] [place] [facility] [address] [facility] [id number] [place] [address]- 1741 May, [facility] [place] [facility] [address] [id number] [place] [address]- 6068 May, [facility] [place] [facility] [address] [id number] [place] [address]- 3847 Apr, [facility] [place] [facility] [address] [id number] [place] [address]- 7161 Apr, [facility] [place] [facility] [address] [id number], [place] [address]- 9622 Apr, [facility] [place] [facility] [address] [id number] [place] [address]- 7188 Apr, [facility] [place] [facility] [address] [id number] [place] [address]- 5738 Apr, [facility] [place] [facility] [address] [id number] [place] [address]- 8756 Apr, [facility] [place] [facility] [address] [id number] [address]- 5404 Apr, [facility] [place] [facility] [address] [id number], [place] [address]- 4967 Apr, [facility] [place] [facility] [address] [id number], [place] [address]- 8104 Apr, [facility] [place] [facility] [address] [id number], [place] [address]- 2922 Apr, [facility] [place] [facility] [address] [id number], [place] [address]- 6980 Apr, [facility] [place] [facility] [address] [id number], [place] [address]- 0057 Apr, [facility] [place] [facility] [address] [id number], [place] [address]- 8493 15 Mar, 2013 [facility] [place] [facility] [address] [id number], [place] [address]- 9909 15 Mar, 2013 [facility] [place] [facility] [address] [facility] [id number], [place] [address] 2546 Mar, [facility] [id number] [address]- 6469 Dec, [facility] [id number] [address]- 1007 Dec, [facility] [address] [place] [address]- 1634 Dec, [facility] [address] [address]- 4889 Oct, [facility] [address] [address]- 4079 May, [facility] [address] [address]- 0764 May, [facility] [address] [address]- 7445 May, [facility] [id number] [address]- 3424 Dec, IMMUNIZATIONS No Known Immunizations SOCIAL HISTORY Never Assessed REASON FOR VISIT Blood Pressure--rileysenMA, --blood pressure is running high at home ranging 150 /90-100. PLAN OF CARE Activity Details Follow Up 3 Months Reason:blood pressure VITAL SIGNS Height 66 in 2017-09-16 Weight 237.1 lbs 2017-09-16 Temperature 98.6 degrees Fahrenheit 2017-09-16 Heart Rate 100 bpm 2017-09-16 Respiratory Rate 20 2017-09-16 BMI 38.26 kg/m2 2017-09-16 Blood pressure systolic 128 mmHg 2017-09-16 Blood pressure diastolic 82 mmHg 2017-09-16 MEDICATIONS Medication Instructions Dosage Frequency Start Date End Date Duration Status Vitamin D 2000 UNIT Orally Once a day 1 tablet 24h Active Triamcinolone Acetonide 0.1 % Externally Twice a day 1 application to affected area 12h Jul, 7 days Active Calcium 600 MG Orally Once a day 1 tablet with meals 24h 30 days Active Multivitamin Gummies Adult Active Abilify 30 MG Orally Once a day 1 tablet 24h Nov, 30 days Active Premarin 0.9 MG Orally Once a day 1 tablet 24h Active Trazodone HCl 100 MG Orally at night as needed for sleep 1-2 tab Jun, 30 days Active Loxapine Succinate 5 MG Orally at night 1 capsule Oct, 30 days Active Magnesium Active Albuterol Sulfate 108 (90 Base) MCG/ACT Inhalation every 4-6 hrs 1 puff as needed May, Active Advair Diskus 100-50 MCG/DOSE Inhalation Twice a day 1 puff 12h Active Aspirin 81 MG Orally Once a day 1 tablet 24h Active Melatonin 5 MG 1 tablet at bedtime as needed with food Active Omeprazole 40 mg Orally Once a day 1 capsule 24h May, 90 days Active Linzess 145 MCG Orally Once a day 1 capsule 24h Jun, Mar, 90 days Active Hydrochlorothiazide 12.5 MG Orally Once a day 1 capsule in the morning 24h Active Fish Oil 1000 MG Orally Once a day 2 capsule 24h Active Cymbalta 60 MG Orally Once a day 1 Capsule 24h 30 days Active RESULTS Name Result Date Reference Range Xray : Elbow, Right 3 views (IN HOUSE) 2017-09-16 PROCEDURES Procedure Date Ordered Result Body Site [facility] VISIT ESTABLISHED PATIENT September 16, 2017 INSTRUCTIONS [...] Gall Bladder Surgical History Tubalization Hospitalization History [facility] 12/2014 Hospitalization History Obstructive Airway Disease, Mood disorder, cough-[facility] 07/02/15 Hospitalization History Bronchitis- [facility] 06/2016
--- OUTSIDE RECORDS SUMMARY | 2018-02-03 08:45 | XMS REPORT ---
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 Name Role Phone JAMES KIRKLAND Unavailable PROBLEMS Type Condition ICD9-CM Code YLM09-ZY Code Onset Dates Condition Status SNOMED Code Problem Slow transit constipation K59.01 Active 15652738 Problem Bipolar disorder, current episode mixed, mild F31.61 Active 508426638 Problem Chronic obstructive pulmonary disease, unspecified COPD type J44.9 Active 05278066 Problem Bipolar II disorder F31.81 Active 32311682 Problem Post-traumatic stress disorder, chronic F43.12 Active 74744662 Problem Bipolar affective disorder, currently manic, mild F31.11 Active 777164243 Problem Lumbago with sciatica, left side M54.42 Active 521941747 Problem Essential hypertension I10 Active 33098918 Problem Other chronic pain G89.29 Active 12022827 Problem Bipolar disorder, in partial remission, most recent episode mixed F31.77 Active 28813241 Problem Paresthesias R20.2 Active 72210132 Problem Irritable bowel syndrome with both constipation and diarrhea K58.2 Active 84268246 ALLERGIES Substance Reaction Event Type Date Status Silk tape rash Non Drug Allergy Jul, Active ENCOUNTERS Encounter Location Date Diagnosis [facility] [id number], [place] [address] Jan, [facility] [address], [place] [address] Jan, [facility] [address], [place] [address] Jan, [facility] [address], [place] [address] Dec, [facility] [id number] [place] [address] 54378- 3864 Nov, Bipolar II disorder F31.81 and Post-traumatic stress disorder, chronic F43.12 [facility] [id number] [place] [address] 15029- 3701 Nov, Essential hypertension I10 ; Lymph node enlargement R59.9 ; Paresthesias R20.2 ; Irritable bowel syndrome with both constipation and diarrhea K58.2 ; Lumbago with sciatica, left side M54.42 and Other chronic pain G89.29 [facility] [id number] [place] [address] 24421- 2157 Nov, Bipolar disorder, in partial remission, most recent episode mixed F31.77 [facility] [id number] [place] [address] 03687- 0752 Oct, Bipolar disorder, in partial remission, most recent episode mixed F31.77 [facility] [id number] [place] [address] 70957 -0169 Oct, Scabies B86 [facility] [id number] [place] [address] 32851- 5674 Oct, Bipolar disorder, in partial remission, most recent episode mixed F31.77 [facility] [id number] [place] [address] 34061- 8111 Oct, [facility] [id number] [place] [address] 96458- 7124 Oct, Bipolar II disorder F31.81 and Post-traumatic stress disorder, chronic F43.12 [facility] [id number] [place] [address] 91141 -0808 Oct, Scabies B86 [facility] [id number] [place] [address] 96795- 5523 Oct, [facility] [id number] [place] [address] 60895- 9800 September, Bipolar II disorder F31.81 and Post-traumatic stress disorder, chronic F43.12 [place] [id number] [place] [address] 23741- 4696 September, Bipolar disorder, in partial remission, most recent episode mixed F31.77 [place] [id number] [place] [address] 74488- 6111 September, COPD exacerbation J44.1 and Elevated blood pressure reading R03.0 [place] [address] [address]- 38[address] September, [place] [address] [address]- [address] September, Pain in left ankle and joints of left foot M25.572 ; Dermatitis L30.9 and Other chronic pain G89.29 [place] [id number] [place] [address] 29110- 1316 Aug, Right elbow pain M25.521 and Elevated blood pressure reading R03.0 [place] [id number] [place] [address] 63425- 4714 Aug, Bipolar disorder, current episode mixed, mild F31.61 and BMI 40.0-44.9, adult Z68.41 [place] [id number] [place] [address] 78297- 9572 Aug, [place] [id number] [place] [address] 16511- 4215 Aug, Bipolar II disorder F31.81 and Post-traumatic stress disorder, chronic F43.12 [place] [id number] [place] [address] 24771- 1256 Jul, Elevated blood pressure reading R03.0 [place] [id number] [place] [address] 07644- 7115 Jul, Bipolar II disorder F31.81 and Post-traumatic stress disorder, chronic F43.12 [place] [id number] [place] [address] 75859- 2385 Jul, Bipolar disorder, current episode mixed, mild F31.61 [facility] [id number] [place] [address] 32084 -5031 Jul, Right foot pain M79.671 ; Allergic contact dermatitis, unspecified trigger L23.9 ; Contusion of right foot, initial encounter S90.31XA and BMI 40.0-44.9, adult Z68.41 [facility] [address] 17760 -5621 Jul, 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 27787- 7489 Jul, [address] 24849- 4721 Jul, Bipolar disorder, current episode mixed, mild F31.61 [place] [id number] [place] [address] 38327- 7727 Jul, Bipolar II disorder F31.81 ; Post-traumatic stress disorder , chronic F43.12 and Memory change R41.3 [id number] [place] [address] 10849- 4828 14 Jul, 2017 Elevated blood pressure reading R03.0 ; Chronic obstructive pulmonary disease, unspecified COPD type J44.9 ; Long-term use of high-risk medication Z79.899 and Cognitive decline R41.89 [place] [id number] [place] [address] 95419- 1485 06 Jul, 2017 Elevated blood pressure reading R03.0 [place] [address] 93516- 9172 05 Jul, 2017 [place] [address] 60893- 0087 01 Jul, 2017 Bipolar II disorder F31.81 ; Post-traumatic stress disorder , chronic F43.12 and Memory change R41.3 [place] [id number] [place] [address] 95189- 9328 Jun, [facility] [id number] [place] [address] 93957- 8714 Jun, Bipolar II disorder F31.81 ; Post-traumatic stress disorder , chronic F43.12 and Memory change R41.3 [place] [id number] [place] [address] 69045- 0243 Jun, Localized swelling, mass or lump of neck R22.1 ; Slow transit constipation K59.01 and Elevated blood pressure reading R03.0 [place] [id number] [place] [address] 72165- 6939 Jun, [place] [id number] [place] [address] 11343- 8521 Jun, Bipolar affective disorder, currently manic, mild F31.11 [facility] [id number] [place] [address] 56704 -4201 15 May, 2017 [facility] [place] [id number] [place] [address] 80310 -9700 14 May, 2017 [place] [id number] [place] [address] 23626- 6150 13 May, 2017 Bipolar II disorder F31.81 ; Post-traumatic stress disorder , chronic F43.12 and Memory change R41.3 [place] [id number] [place] [address] 00939- 0165 May, [facility] [id number] [place] [address] 18514- 5514 May, [place] [id number] [place] [address] 16897- 0148 05 May, 2017 Bipolar affective disorder, currently manic, mild F31.11 [facility] [id number] [place] [address] 01918- 5864 04 May, 2017 [facility] [address] [place] [address] May, Localized swelling, mass or lump of neck R22.1 and Localized swelling, mass and lump, head R22.0 [facility] [address] [place] [address] 67745- 3503 Apr, [facility] [id number] [place] [address] 66986- 8560 Apr, Bipolar affective disorder, currently manic, mild F31.11 [facility] [id number] [place] [address] 62029- 9184 Apr, Bipolar II disorder F31.81 [facility] [id number] [place] [address] 88413- 8524 Apr, [facility] [id number] [place] [address] 83077- 9264 Apr, Bipolar affective disorder, currently manic, mild F31.11 [facility] [id number] [place] [address] 80386- 3623 Apr, Actinic keratosis L57.0 [address] [id number] [place] [address] 61279- 7178 Apr, Bipolar affective disorder, currently manic, mild F31.11 [facility] [id number] [place] [address] 58320- 7830 Apr, [facility] [id number] [place] [address] 22769 -9206 Mar, Allergic contact dermatitis, unspecified trigger L23.9 and Right leg pain M79.604 [facility] [id number] [place] [address] 38654- 5691 Mar, [facility] [address] [place] [address] 92907- 2675 Mar, Bipolar II disorder F31.81 ; Post-traumatic stress disorder , chronic F43.12 and Memory change R41.3 [facility] [address], [place] [address]- 7533 04 Mar, 2017 Actinic keratosis L57.0 [facility] [address] [place] [address] 592940- 8486 28 Jan, 2017 Bipolar II disorder F31.81 ; Post-traumatic stress disorder , chronic F43.12 and Memory change R41.3 [facility] [id number] [place] [address] 83166- 0284 28 Jan, 2017 Bipolar affective disorder, currently manic, mild F31.11 [facility] [id number] [place] [address] 687963- 6911 13 Jan, 2017 Bipolar affective disorder, currently manic, mild F31.11 [place] [address] [place] [address] 68577- 1823 Jan, Bipolar II disorder F31.81 ; Post-traumatic stress disorder , chronic F43.12 and Memory change R41.3 [place] [address] [place] [address] 19621- 2508 Dec, Bipolar II disorder F31.81 ; Post-traumatic stress disorder , chronic F43.12 and Memory change R41.3 [address], [place] [address]- 6641 Dec, Bipolar affective disorder, currently manic, mild F31.11 [address] [address], [place] [address]- 3198 Dec, Bipolar affective disorder, currently manic, mild F31.11 [facility] [id number], [place] [address]- 2240 Dec, Post-traumatic stress disorder, chronic F43.12 [facility] [id number], [place] [address]- 5154 Dec, Bipolar II disorder F31.81 ; Post-traumatic stress disorder , chronic F43.12 and Memory change R41.3 [facility] [address], [place] [address]- 0015 Dec, Post-traumatic stress disorder, chronic F43.12 [facility] [address], [place] [address]- 6126 Nov, [facility] [address] [address] 4516 Nov, Bipolar II disorder F31.81 ; Post-traumatic stress disorder , chronic F43.12 and Memory change R41.3 [facility] [address], [place] [address]- 0011 Nov, [facility] [address] [place] [address] 10934- 6055 Nov, Post-traumatic stress disorder, chronic F43.12 and Bipolar II disorder F31.81 [facility] [address], [place] [address]- 2586 Nov, Actinic keratosis L57.0 [facility] [address], [place] [address]- 7971 Oct, Bipolar II disorder F31.81 ; Post-traumatic stress disorder , chronic F43.12 and Memory change R41.3 [facility] [address], [place] [address]- 6627 Oct, Post-traumatic stress disorder, chronic F43.12 ; Bipolar II disorder F31.81 and Memory change R41.3 [facility] [address], [place] [address]- 6386 Oct, Bipolar II disorder F31.81 ; Post-traumatic stress disorder , chronic F43.12 and Memory change R41.3 [facility] [id number] [address]- 9117 Oct, Actinic keratosis L57.0 [facility] [id number], [place] [address]- 7107 September, Bipolar II disorder F31.81 ; Post-traumatic stress disorder , chronic F43.12 and Memory change R41.3 [facility] [address], [place] [address]- 5178 September, Bipolar II disorder F31.81 ; Post-traumatic stress disorder , chronic F43.12 and Memory change R41.3 [facility] [address], [place] [address]- 4977 September, Post-traumatic stress disorder, chronic F43.12 ; Bipolar II disorder F31.81 and Memory change R41.3 [facility] [address], [place] [address]- 4341 Jul, Bipolar II disorder F31.81 ; Post-traumatic stress disorder , chronic F43.12 and Memory change R41.3 [address] [place], [place] [address]- 1180 Jul, Bipolar II disorder F31.81 ; Post-traumatic stress disorder , chronic F43.12 and Memory change R41.3 [facility] [address], [place] [address]- 5673 Jul, Bipolar II disorder F31.81 ; Post-traumatic stress disorder , chronic F43.12 and Memory change R41.3 [facility] [address], [place] [address]- 5162 Jul, Post-traumatic stress disorder, chronic F43.12 ; Bipolar II disorder F31.81 and Memory change R41.3 [facility] [address], [place] [address]- 2247 Jul, Tear of medial meniscus of right knee, unspecified tear type , unspecified whether old or current tear, initial encounter S83.241A [facility] [id number], [place] [address]- 4781 Jul, Bipolar II disorder F31.81 ; Post-traumatic stress disorder , chronic F43.12 and Memory change R41.3 [facility] [address] [place] [address] 20697- 4222 07 Jul, 2016 Shortness of breath R06.02 ; Mixed hyperlipidemia E78.2 and Chronic fatigue R53.82 [place] [id number] [place] [address] 34360- 6531 07 Jul, 2016 Bipolar II disorder F31.81 ; Post-traumatic stress disorder , chronic F43.12 and Memory change R41.3 [place] [id number] [place] [address] 45711- 4229 Jul, [place] [id number] [place] [address] 78873- 3303 Jun, Bipolar II disorder F31.81 ; Post-traumatic stress disorder , chronic F43.12 and Memory change R41.3 [place] [address] [place] [address] 96505- 2177 Jun, Post-traumatic stress disorder, chronic F43.12 ; Bipolar II disorder F31.81 and Memory change R41.3 [place] [address] [place] [address] 92418- 0299 Jun, Right anterior knee pain M25.561 ; Shortness of breath R06.02 and Bronchiolitis J21.9 [place] [address] [place] [address] 72771- 7309 Jun, [place] [address] [place] [address] 67117- 1065 Jun, Bipolar II disorder F31.81 ; Post-traumatic stress disorder , chronic F43.12 and Memory change R41.3 [place] [address] [place] [address] 80355- 5158 Jun, [place] [id number] [place] [address] 60824- 3850 Jun, Bipolar II disorder F31.81 ; Post-traumatic stress disorder , chronic F43.12 and Memory change R41.3 [place] [address] [address]- 7528 May, [facility] [address] [place] [address] 03195- 3046 May, [facility] [id number] [place] [address] 03329- 6696 May, [facility] [address] [place] [address] 45257- 2516 May, Right anterior knee pain M25.561 ; Cough R05 ; Skin lesion of right arm L98.9 and Lesion of skin of face L98.9 [facility] [id number] [place] [address] 06703- 5486 May, [facility] [id number] [place] [address] 92838- 4266 May, Post-traumatic stress disorder, chronic F43.12 ; Memory change R41.3 and Bipolar I disorder, most recent episode manic F31.10 [facility] [address] [place] [address] 82369- 0666 May, [facility] [id number] [place] [address] 53839- 0400 May, Right anterior knee pain M25.561 [facility] [address] [place] [address] 08707- 8866 May, [facility] [address] [place] [address] 18484- 2547 Apr, Bipolar II disorder F31.81 ; Post-traumatic stress disorder , chronic F43.12 and Memory change R41.3 [facility] [address] [place] [address] 25509- 5076 Apr, Bipolar II disorder F31.81 ; Post-traumatic stress disorder , chronic F43.12 and Memory change R41.3 [facility] [address] [place] [address] 17261- 2566 Apr, Post-traumatic stress disorder, chronic F43.12 ; Bipolar II disorder F31.81 and Memory change R41.3 [place] [id number] [place] [address] 73522- 8912 Mar, Bipolar II disorder F31.81 ; Post-traumatic stress disorder , chronic F43.12 and Memory change R41.3 [place] [id number] [place] [address] 86777- 2046 Mar, Memory change R41.3 ; Confusion R41.0 and Dizziness R42 [place] [id number] [place] [address] 84342- 9540 Mar, Memory change R41.3 ; Encounter for immunization Z23 and Fatigue, unspecified type R53.83 [place] [id number] [place] [address] 82368- 4991 Mar, Bipolar II disorder F31.81 ; Post-traumatic stress disorder , chronic F43.12 and Memory change R41.3 [place] [id number] [place] [address] 13934- 2639 Jan, Bipolar II disorder F31.81 ; Post-traumatic stress disorder , chronic F43.12 and Memory change R41.3 [place] [address] [place] [address] 85842- 7331 Jan, Post-traumatic stress disorder, chronic F43.12 ; Bipolar II disorder F31.81 ; Anxiety disorder, unspecified F41.9 and Memory change R41.3 [place] [address] [place] [address] 09924- 7518 15 Feb, 2016 Bipolar II disorder F31.81 ; Post-traumatic stress disorder , chronic F43.12 and Memory change R41.3 [place] [id number] [place] [address] 64691- 5928 Dec, Bipolar II disorder F31.81 ; Post-traumatic stress disorder , chronic F43.12 and Memory change R41.3 [place] [address] [place] [address]- 8817 Dec, Memory loss R41.3 [facility] [address] [place] [address] 05104- 5996 Dec, Bipolar II disorder F31.81 ; Post-traumatic stress disorder , chronic F43.12 and Memory change R41.3 [facility] [address] [address]- 5931 Nov, Bipolar II disorder F31.81 and Post-traumatic stress disorder, chronic F43.12 [facility] [address] [place] [address] 37118- 5212 Nov, Bipolar II disorder F31.81 ; Post-traumatic stress disorder , chronic F43.12 and Memory change R41.3 [facility] [address] [place] [address] 42907- 2379 Oct, Post-traumatic stress disorder, chronic F43.12 and Bipolar disorder, unspecified F31.9 [facility] [address] [place] [address] 30379- 0377 Oct, Bipolar II disorder F31.81 ; Post-traumatic stress disorder , chronic F43.12 and Memory change R41.3 [facility] [address] [address] Oct, Dental examination Z01.20 [facility] [address] [place] [address] 34329- 7264 September, Bipolar II disorder F31.81 ; Post-traumatic stress disorder , chronic F43.12 and Memory change R41.3 [facility] [address], [place] [address]- 9663 Aug, Bipolar II disorder F31.81 and Post-traumatic stress disorder, chronic F43.12 [facility] [address] [place] [address] 04537- 7830 Aug, Bipolar II disorder F31.81 and Post-traumatic stress disorder, chronic F43.12 [place] [address] [place] [address]- 7744 Jul, Bipolar II disorder F31.81 and Post-traumatic stress disorder, chronic F43.12 [place] [id number] [place] [address]- 3514 16 Jul, 2015 [place] [id number] [place] [address]- 197 Jul, [place] [id number] [place] [address] 7601 Jul, Post-traumatic stress disorder, chronic F43.12 and Bipolar disorder, unspecified F31.9 [place] [id number] [place] [address]- 8792 Jun, Bipolar II disorder F31.81 and Post-traumatic stress disorder, chronic F43.12 [place] [id number] [place] [address]- 2828 Jun, Post-traumatic stress disorder, chronic F43.12 and Bipolar disorder, unspecified F31.9 [place] [id number] [place] [address]- 0934 Jun, [place] [id number] [place] [address]- 4109 Jun, Pharyngeal dysphagia R13.13 ; Hoarseness R49.0 and Cough R05 [place] [id number] [place] [address] 28698- 1480 Jun, Post-traumatic stress disorder, chronic F43.12 and Bipolar disorder, unspecified F31.9 [place] [id number] [place] [address]- 6657 May, Cough R05 [place] [id number] [place] [address]- 9807 May, Post-traumatic stress disorder, chronic F43.12 and Bipolar disorder, unspecified F31.9 [place] [address], [place] [address]- 2670 22 May, 2015 Cough R05 [facility] [id number] [place] [phone] 16 May, 2015 [facility] [id number] [place] [id number] 16 May, 2015 Dental examination Z01.20 [facility] [id number] [place] [phone] 15 May, 2015 Bipolar II disorder F31.81 and Post-traumatic stress disorder, chronic F43.12 [facility] [id number] [place] [phone] May, [facility] [id number] [place] [phone] May, Bipolar II disorder F31.81 and Anxiety disorder, unspecified F41.9 [facility] [address] [id number] [place] [address] 57916- 7726 10 May, 2015 Memory change R41.3 and History of renal insufficiency syndrome Z87.448 [facility] [id number] [place] [address] 77763- 4068 03 May, 2015 Memory change R41.3 ; Dry mouth R68.2 and History of renal insufficiency syndrome Z87.448 [facility] [id number] [place] [address] 92163- 1977 May, Bipolar II disorder F31.81 and Post-traumatic stress disorder, chronic F43.12 [facility] [id number] [place] [address] 56014- 9944 Mar, Bipolar disorder, unspecified F31.9 and Generalized anxiety disorder F41.1 [facility] [id number] [place] [address] 40006- 7835 Mar, Bipolar II disorder F31.81 [facility] [id number] [place] [address] 93836- 3702 Mar, Encounter for immunization Z23 [facility] [id number] [place] [address] 38404- 9049 Mar, [facility] [id number] [place] [address] 92418- 8513 Mar, Bipolar II disorder F31.81 [facility] [id number] [place] [address] 90229- 5278 Mar, [facility] [id number] [place] [address] 88846- 7158 Jan, Bipolar disorder, unspecified 296.80 and Anxiety disorder 300.00 [facility] [id number] [place] [address] 47103- 2264 Jan, [facility] [id number] [place] [address] 08097- 0011 Jan, Bipolar disorder, unspecified 296.80 and Anxiety disorder 300.00 [facility] [id number] [place] [address] 86810- 3621 Dec, Bipolar disorder, unspecified 296.80 and Anxiety disorder 300.00 [facility] [id number] [place] [address] 14967- 7453 Dec, [facility] [id number] [place] [address] 10061- 1421 Dec, Bipolar disorder, unspecified 296.80 and Anxiety disorder 300.00 [facility] [id number] [place] [address] 91881- 8292 Nov, Bipolar disorder, unspecified 296.80 and Anxiety disorder 300.00 [facility] [id number] [place] [address] 95529- 6471 Oct, Bipolar disorder, unspecified 296.80 and Anxiety disorder 300.00 [facility] [id number] [place] [address] 66775- 3141 Oct, Anxiety 300.00 and Bipolar disorder, unspecified 296.80 [facility] [address] [address] 9648 September, Bipolar disorder, unspecified 296.80 and Anxiety disorder 300.00 [facility] [address] [address]- 0234 September, [facility] [address] [place] [address]- 5873 Aug, Cough 786.2 [facility] [id number] [place] [address] 27137- 4273 Aug, [facility] [id number] [place] [address], [place] [address]- 7056 Aug, [facility] [address] [address]- 9613 Jul, [facility] [address] [address]- 6571 Jul, [facility] [address] [address]- 7663 Jul, [facility] [address] [place] [address]- 7693 Jul, [facility] [address] [address]- 9372 Jul, [facility] [address] [address]- 1237 Jul, [facility] [address] [address]- 3325 Jun, [facility] [address] [address]- 0646 Jun, [facility] [address] [address]- 3449 Jun, [facility] [id number] [address]- 3667 Jun, [facility] [place] [facility] [address] [id number] [place] [address]130 15 May, 2014 [facility] [place] [facility] [address] [id number] [place] [address]153 May, [facility] [place] [facility] [address] [id number] [place] 7878 May, [facility] [place] [facility] [address] [id number] [place] [address]- 1714 May, [facility] [place] [facility] [address] [id number] [place] 4430 Apr, [facility] [place] [facility] [address] [id number] [place] [address]- 9645 Apr, [facility] [place] [facility] [address] [id number] [place] [address]- 7360 Mar, [facility] [place] [facility] [address] [id number] [place] [address]- 4549 Mar, [facility] [place] [facility] [address] [id number] [place] [address]- 8043 Mar, [facility] [place] [facility] [address] [id number] [place] [address]- 4116 Mar, [facility] [place] [facility] [address] [id number] [place] [address]- 1514 Mar, [facility] [place] [facility] [address] [id number] [place] [address]- 7587 Mar, [facility] [place] [facility] [address] [id number] [place] [address]- 9343 Jan, [facility] [place] [facility] [address] [id number] [place] [address]286 Jan, [facility] [place] [facility] [address] [id number] [place] [address]- 6049 05 Jan, 2014 [facility] [place] [facility] [address] [id number] [place] 6608 Jan, [facility] [place] [facility] [address] [id number] [place] [address]- 5271 Jan, [facility] [place] [facility] [address] [id number] [place] [address]- 8890 Jan, [facility] [place] [facility] [address] [id number] [place] [address]323 Dec, [facility] [place] [facility] [address] [id number] [place] [address]- 7381 Dec, [facility] [place] [facility] [address] [id number] [place] [address]- 8425 Dec, [facility] [place] [facility] [address] [id number] [place] [address]- 1527 Dec, [facility] [place] [facility] [address] [id number] [place] [address]- 7881 Dec, [facility] [place] [facility] [address] [id number] [place] [address]- 2592 Dec, [facility] [place] [facility] [address] [id number] [place] [address]- 8581 Nov, [facility] [place] [facility] [address] [id number] [place] [address]- 0303 Nov, [facility] [place] [facility] [address] [id number] [place] [address]- 8061 Nov, [facility] [place] [facility] [address] [id number] [address]- 9979 Nov, [facility] [place] [facility] [address] [id number] [place] [address]- 8582 Nov, [facility] [place] [facility] [address] [id number] [place] [address]- 7032 Nov, [facility] [place] [facility] [address] [id number] [place] [address]- 1021 Nov, [facility] [place] [facility] [address] [id number] [place] [address]- 9106 Nov, [facility] [place] [facility] [address] [id number] [place] 9856 Nov, [facility] [place] [facility] [address] [id number] [place] 3683 Nov, [facility] [place] [facility] [address] [id number] [place] [address]- 5010 September, [facility] [place] [facility] [address] [id number] [place] [address]- 6067 September, [facility] [place] [facility] [address] [id number] [place] [address]- 6375 September, [facility] [place] [facility] [address] [id number] [place] [address]- 0663 September, [facility] [place] [facility] [address] [id number] [place] [address]- 1538 September, [facility] [place] [facility] [address] [id number] [place] [address]- 8154 September, [facility] [place] [facility] [address] [id number] [place] [address]- 2603 September, [facility] [place] [facility] [address] [id number] [place] [address]- 0431 September, [facility] [place] [facility] [address] [id number] [place] [address]- 2213 Aug, [facility] [place] [facility] [address] [id number] [place] [address]- 3608 Aug, [facility] [place] [facility] [address] [id number] [place] [address]- 6351 Aug, [facility] [place] [facility] [address] [id number] [place] [address]- 0525 Aug, [facility] [place] [facility] [address] [id number] [place] [address]- 4625 Jul, [facility] [place] [facility] [address] [id number] [place] [address]- 0460 Jul, [facility] [place] [facility] [address] [id number] [place] [address]- 4794 Jul, [facility] [place] [facility] [address] [id number] [place] [address]- 2682 Jul, [facility] [place] [facility] [address] [id number] [place] [address]- 8633 Jul, [facility] [place] [facility] [address] [id number] [place] [address]- 5888 Jul, [facility] [place] [facility] [address] [id number] [place] [address]- 8511 Jul, [facility] [place] [facility] [address] [id number] [place] [address]- 1628 Jul, [facility] [place] [facility] [address] [id number] [place] [address]- 9391 Jul, [facility] [place] [facility] [address] [id number] [place] [address]- 7861 Jul, [facility] [place] [facility] [address] [id number] [place] [address]- 4993 Jul, [facility] [place] [facility] [address] [id number] [place] [address]- 0336 Jun, [facility] [place] [facility] [address] [id number] [place] [address]- 4664 Jun, [facility] [place] [facility] [address] [id number] [place] [address]- 7069 Jun, [facility] [place] [facility] [address] [id number] [place] [address]- 5218 Jun, [facility] [place] [facility] [address] [id number] [place] [address]- 0399 May, [facility] [place] [facility] [address] [id number] [place] [address]- 0787 May, [facility] [address] [id number] [place] [address]- 8611 Apr, [facility] [place] [facility] [address] [id number] [place] [address]- 7911 Apr, [facility] [address] [id number] [place] [address]- 1207 Apr, [facility] [place] [facility] [address] [id number] [place] [address]- 2187 Apr, [facility] [address] [id number] [place] [address]- 5708 Apr, [facility] [place] [facility] [address] [id number] [place] [address]- 4694 Apr, [facility] [address] [id number] [place] [address]- 5437 Apr, [facility] [address] [id number] [place] [address]- 9082 Apr, [facility] [place] [facility] [address] [id number] [place] [address]- 9685 Apr, [facility] [address] [facility] [id number] [place] [address]- 3917 Apr, [facility] [place] [facility] [address] [id number] [place] [address]- 2760 Apr, [facility] [place] [facility] [address] [id number] [address]- 5058 Apr, [facility] [place] [facility] [address] [id number] [place] [address]- 7655 Mar, [facility] [place] [facility] [address] [id number] [place] [address]- 6227 Mar, [facility] [place] [facility] [address] [id number] [address]- 7004 Mar, [facility] [id number] [address]- 9775 Dec, [facility] [id number] [address]- 3016 Dec, [facility] [id number] [address] 2546 Dec, [facility] [address] [place] [address] 2546 Oct, [facility] [id number] [address]- 2725 May, [facility] [address] [place] [address]- 9836 May, [facility] [address] [place] [address] 2546 May, [facility] [id number] [address]- 0496 Dec, IMMUNIZATIONS No Known Immunizations SOCIAL HISTORY Never Assessed REASON FOR VISIT right arm pain in brachial area...reports it is hard to carry anything. 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 reports this has annetta austin on for 2 weeks. denies any injury. [email or web address] PLAN OF CARE Activity Details Follow Up prn Reason: VITAL SIGNS Height 66 in 2017-08-01 Weight 248.6 lbs 2017-08-01 Temperature 98.1 degrees Fahrenheit 2017-08-01 Heart Rate 90 bpm 2017-08-01 Respiratory Rate 20 2017-08-01 BMI 40.12 kg/m2 2017-08-01 Blood pressure systolic 130 mmHg 2017-08-01 Blood pressure diastolic 78 mmHg 2017-08-01 MEDICATIONS Medication Instructions Dosage Frequency Start Date End Date Duration Status Abilify 30 MG Orally Once a day 1 tablet 24h Nov, 30 days Active Omeprazole 40 mg Orally Once a day 1 capsule 24h May, 90 days Active Tramadol HCl 50 MG Orally every 6 hrs 1 tablet as needed 6h Active Melatonin 5 MG 1 tablet at bedtime as needed with food Active Cymbalta 60 MG Orally Once a day 1 Capsule 24h 30 days Active Trazodone HCl 50 MG Orally at night as needed for sleep 0.5-1 tablet Jun, 30 days Active Linzess 145 MCG Orally Once a day 1 capsule 24h Jun, Mar, 90 days Active Aspirin 81 MG Orally Once a day 1 tablet 24h Active Fish Oil 1000 MG Orally Once a day 2 capsule 24h Active Linzess 145 MCG Orally Once a day 1 capsule 24h Nov, 30 days Active Xanax 0.5 MG Orally Twice a day 1 tablet 12h Active Loxapine Succinate 5 MG Orally at night 1 capsule Oct, 30 days Active Hydrochlorothiazide 12.5 MG Orally Once a day 1 capsule in the morning 24h 30 day(s) Active Vitamin D 2000 UNIT Orally Once a day 1 tablet 24h Active Benztropine Mesylate 1 MG Orally twice a day 1 tablet 12h 30 days Active Albuterol Sulfate 108 (90 Base) MCG/ACT Inhalation every 4-6 hrs 1 puff as needed May, Active Premarin 0.9 MG Orally Once a day 1 tablet 24h Active Calcium 600 MG Orally Once a day 1 tablet with meals 24h 30 days Active Advair Diskus 100-50 MCG/DOSE Inhalation Twice a day 1 puff 12h Active Multivitamin Gummies Adult Active RESULTS No Results PROCEDURES Procedure Date Ordered Result Body Site [facility] VISIT ESTABLISHED PATIENT August 01, 2017 INSTRUCTIONS MEDICATIONS ADMINISTERED No Known Medications [...] Gall Bladder Surgical History Tubalization Hospitalization History [facility] 12/2014 Hospitalization History Obstructive Airway Disease, Mood disorder, cough-[facility] 07/02/15 Hospitalization History Bronchitis- [facility] 06/2016
--- OUTSIDE RECORDS SUMMARY | 2018-02-03 08:45 | XMS REPORT ---
Author Author SHANTAL TOWNSEND Organization [facility] Address [address] [place] [address] Care Team Providers Care Pharmaceutical Engineer Name Role Phone SHANTAL TOWNSEND Unavailable PROBLEMS Type Condition ICD9-CM Code LYB85-CV Code Onset Dates Condition Status SNOMED Code Problem Slow transit constipation K59.01 Active 71979465 Problem Bipolar disorder, current episode mixed, mild F31.61 Active 975372668 Problem Chronic obstructive pulmonary disease, unspecified COPD type J44.9 Active 71976011 Problem Bipolar II disorder F31.81 Active 19074757 Problem Post-traumatic stress disorder, chronic F43.12 Active 64049510 Problem Bipolar affective disorder, currently manic, mild F31.11 Active 821341985 Problem Lumbago with sciatica, left side M54.42 Active 737399864 Problem Essential hypertension I10 Active 63874489 Problem Other chronic pain G89.29 Active 20032795 Problem Bipolar disorder, in partial remission, most recent episode mixed F31.77 Active 53100109 Problem Paresthesias R20.2 Active 84134715 Problem Irritable bowel syndrome with both constipation and diarrhea K58.2 Active 99514819 ALLERGIES No Information ENCOUNTERS Encounter Location Date Diagnosis [facility] [id number] [place] [address] 27894- 7325 Jan, [facility] [id number] [place] [address] 61239- 3254 Jan, [facility] [id number] [place] [address] 62071- 4505 Jan, [facility] [id number] [place] [address] 09799- 7719 Dec, [facility] [id number] [place] [address] 04110- 6549 Nov, Bipolar II disorder F31.81 and Post-traumatic stress disorder, chronic F43.12 [facility] [id number] [place] [address] 99616- 2750 Nov, Essential hypertension I10 ; Lymph node enlargement R59.9 ; Paresthesias R20.2 ; Irritable bowel syndrome with both constipation and diarrhea K58.2 ; Lumbago with sciatica, left side M54.42 and Other chronic pain G89.29 [facility] [id number] [place] [address] 08363- 4530 Nov, Bipolar disorder, in partial remission, most recent episode mixed F31.77 [facility] [id number] [place] [address] 01918- 0417 Oct, Bipolar disorder, in partial remission, most recent episode mixed F31.77 [facility] [id number] [place] [address] 21714 -6513 Oct, Scabies B86 [facility] [id number] [place] [address] 56256- 6324 Oct, Bipolar disorder, in partial remission, most recent episode mixed F31.77 [facility] [id number] [place] [address] 97833- 4867 Oct, [place] [id number] [place] [address] 98695- 1339 Oct, Bipolar II disorder F31.81 and Post-traumatic stress disorder, chronic F43.12 [facility] [id number] [place] [address] 82327 -1835 Oct, Scabies B86 [facility] [id number] [place] [address] 68758- 3989 Oct, [facility] [id number] [place] [address] 28176- 7670 September, Bipolar II disorder F31.81 and Post-traumatic stress disorder, chronic F43.12 [facility] [id number] [place] [address] 04580- 0489 September, Bipolar disorder, in partial remission, most recent episode mixed F31.77 [place] [address] 31729- 1525 September, COPD exacerbation J44.1 and Elevated blood pressure reading R03.0 [place] [address] 08645- 0979 September, [place] [address] 71794- 5975 September, Pain in left ankle and joints of left foot M25.572 ; Dermatitis L30.9 and Other chronic pain G89.29 [place] [address] 28254- 0705 Aug, Right elbow pain M25.521 and Elevated blood pressure reading R03.0 [place] [address] 10162- 1779 Aug, Bipolar disorder, current episode mixed, mild F31.61 and BMI 40.0-44.9, adult Z68.41 [facility] [place] [address] 26978- 5645 Aug, [facility] [place] [id number] [place] [address] 37032- 2612 Aug, Bipolar II disorder F31.81 and Post-traumatic stress disorder, chronic F43.12 [facility] [id number] [place] [address] 33361- 3368 Jul, Elevated blood pressure reading R03.0 [facility] [place] [address] 42953- 5157 Jul, Bipolar II disorder F31.81 and Post-traumatic stress disorder, chronic F43.12 [facility] [id number] [place] [address] 66967- 7618 Jul, Bipolar disorder, current episode mixed, mild F31.61 [facility] [id number] [place] [address] 30380 -5757 12 Jul, 2017 Right foot pain M79.671 ; Allergic contact dermatitis, unspecified trigger L23.9 ; Contusion of right foot, initial encounter S90.31XA and BMI 40.0-44.9, adult Z68.41 [facility] [address] 35800 -4018 02 Jul, 2017 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 [place] [address] 41061- 3615 Jul, [address] 13622- 7259 15 Jul, 2017 Bipolar disorder, current episode mixed, mild F31.61 [place] [address] 30372- 3338 15 Jul, 2017 Bipolar II disorder F31.81 ; Post-traumatic stress disorder , chronic F43.12 and Memory change R41.3 [place] [address] 06354- 6491 14 Jul, 2017 Elevated blood pressure reading R03.0 ; Chronic obstructive pulmonary disease, unspecified COPD type J44.9 ; Long-term use of high-risk medication Z79.899 and Cognitive decline R41.89 [facility] [place] [id number] [place] [address] 90380- 2236 06 Jul, 2017 Elevated blood pressure reading R03.0 [facility] [place] [id number] [place] [address] 93032- 3544 05 Jul, 2017 [place] [address] 89773- 0582 01 Jul, 2017 Bipolar II disorder F31.81 ; Post-traumatic stress disorder , chronic F43.12 and Memory change R41.3 [place] [address] 69872- 7804 Jun, [facility] [id number] [place] [address] 85521- 8879 Jun, Bipolar II disorder F31.81 ; Post-traumatic stress disorder , chronic F43.12 and Memory change R41.3 [facility] [place] [id number] [place] [address] 13077- 8626 10 Jun, 2017 Localized swelling, mass or lump of neck R22.1 ; Slow transit constipation K59.01 and Elevated blood pressure reading R03.0 [facility] [place] [id number] [place] [address] 23861- 5166 Jun, [facility] [place] [id number] [place] [address] 58352- 1410 Jun, Bipolar affective disorder, currently manic, mild F31.11 [facility] [place] [id number] [place] [address] 83023 -4826 15 May, 2017 [facility] [place] [id number] [place] [address] 87137 -9258 14 May, 2017 [place] [id number] [place] [address] 47733- 7673 May, Bipolar II disorder F31.81 ; Post-traumatic stress disorder , chronic F43.12 and Memory change R41.3 [facility] [place] [id number] [place] [address] 77672- 3522 May, [facility] [place] [id number] [place] [address] 71426- 9952 08 May, 2017 [facility] [place] [id number] [place] [address] 14779- 9042 05 May, 2017 Bipolar affective disorder, currently manic, mild F31.11 [facility] [id number] [place] [address] 63878- 1141 04 May, 2017 [facility] [id number] [place] [address] 37603 -0451 May, Localized swelling, mass or lump of neck R22.1 and Localized swelling, mass and lump, head R22.0 [facility] [id number] [place] [address] 50325- 1142 Apr, [facility] [id number] [place] [address] 06944- 2666 Apr, Bipolar affective disorder, currently manic, mild F31.11 [facility] [address] 86490- 9319 Apr, Bipolar II disorder F31.81 [facility] [address] 12160- 3461 Apr, [facility] [address] 43416- 2321 Apr, Bipolar affective disorder, currently manic, mild F31.11 [place] [id number] [place] [address] 23471- 0169 Apr, Actinic keratosis L57.0 [facility] [id number] [place] [address] 37714- 4788 Apr, Bipolar affective disorder, currently manic, mild F31.11 [facility] [id number] [place] [address] 83811- 0065 Apr, [facility] [id number] [place] [address] 09241 -8764 Mar, Allergic contact dermatitis, unspecified trigger L23.9 and Right leg pain M79.604 [facility] [id number] [place] [address] 28880- 6353 Mar, [facility] [address] 56157- 0591 Mar, Bipolar II disorder F31.81 ; Post-traumatic stress disorder , chronic F43.12 and Memory change R41.3 [place] [address] [address]- 6889 04 Mar, 2017 Actinic keratosis L57.0 [facility] [id number] [place] [address] 31599- 7517 Jan, Bipolar II disorder F31.81 ; Post-traumatic stress disorder , chronic F43.12 and Memory change R41.3 [facility] [id number] [place] [address] 35868- 9560 Jan, Bipolar affective disorder, currently manic, mild F31.11 [facility] [id number] [place] [address] 66154- 8238 13 Jan, 2017 Bipolar affective disorder, currently manic, mild F31.11 [facility] [id number] [place] [address] 37059- 0911 Jan, Bipolar II disorder F31.81 ; Post-traumatic stress disorder , chronic F43.12 and Memory change R41.3 [facility] [id number] [place] [address] 30511- 9162 Dec, Bipolar II disorder F31.81 ; Post-traumatic stress disorder , chronic F43.12 and Memory change R41.3 [facility] [id number] [place] [address] 66729- 2549 Dec, Bipolar affective disorder, currently manic, mild F31.11 [facility] [id number] [place] [address] 35101- 7807 Dec, Bipolar affective disorder, currently manic, mild F31.11 [facility] [id number] [place] [address] 10381- 2680 Dec, Post-traumatic stress disorder, chronic F43.12 [facility] [id number] [place] [address] 65991- 1845 Dec, Bipolar II disorder F31.81 ; Post-traumatic stress disorder , chronic F43.12 and Memory change R41.3 [facility] [id number] [place] [address]- 2546 Dec, Post-traumatic stress disorder, chronic F43.12 [facility] [address] [address]- 0289 Nov, [facility] [address] [place] [address]- 8022 Nov, Bipolar II disorder F31.81 ; Post-traumatic stress disorder , chronic F43.12 and Memory change R41.3 [facility] [address] [address]- 4092 Nov, [facility] [id number] [place] [address] 64451- 8643 Nov, Post-traumatic stress disorder, chronic F43.12 and Bipolar II disorder F31.81 [place] [address] [address]- 5706 Nov, Actinic keratosis L57.0 [facility] [address] [address]- 6197 Oct, Bipolar II disorder F31.81 ; Post-traumatic stress disorder , chronic F43.12 and Memory change R41.3 [facility] [address] [address]- 4941 Oct, Post-traumatic stress disorder, chronic F43.12 ; Bipolar II disorder F31.81 and Memory change R41.3 [place] [address], [place] [address]- 6960 Oct, Bipolar II disorder F31.81 ; Post-traumatic stress disorder , chronic F43.12 and Memory change R41.3 [facility] [address] [place] [address]- 5741 Oct, Actinic keratosis L57.0 [facility] [address] [address]- 7987 September, Bipolar II disorder F31.81 ; Post-traumatic stress disorder , chronic F43.12 and Memory change R41.3 [facility] [address] [address]- 1261 September, Bipolar II disorder F31.81 ; Post-traumatic stress disorder , chronic F43.12 and Memory change R41.3 [facility] [address] [address]- 5722 September, Post-traumatic stress disorder, chronic F43.12 ; Bipolar II disorder F31.81 and Memory change R41.3 [facility] [address] [address]- 9547 Jul, Bipolar II disorder F31.81 ; Post-traumatic stress disorder , chronic F43.12 and Memory change R41.3 [facility] [address] [address]- 4982 Jul, Bipolar II disorder F31.81 ; Post-traumatic stress disorder , chronic F43.12 and Memory change R41.3 [place] [address] [place] [address]- 0817 Jul, Bipolar II disorder F31.81 ; Post-traumatic stress disorder , chronic F43.12 and Memory change R41.3 [place] [address], [place] [address]- 8278 Jul, Post-traumatic stress disorder, chronic F43.12 ; Bipolar II disorder F31.81 and Memory change R41.3 [facility] [address] [address]- 5070 Jul, Tear of medial meniscus of right knee, unspecified tear type , unspecified whether old or current tear, initial encounter S83.241A [facility] [id number] [place] [address] 92869- 6769 Jul, Bipolar II disorder F31.81 ; Post-traumatic stress disorder , chronic F43.12 and Memory change R41.3 [place] [id number] [place] [address] 05336- 6453 07 Jul, 2016 Shortness of breath R06.02 ; Mixed hyperlipidemia E78.2 and Chronic fatigue R53.82 [facility] [place] [id number] [place] [address] 10278- 4431 07 Jul, 2016 Bipolar II disorder F31.81 ; Post-traumatic stress disorder , chronic F43.12 and Memory change R41.3 [place] [id number] [place] [address] 36966- 9206 Jul, [place] [id number] [place] [address] 53249- 7405 Jun, Bipolar II disorder F31.81 ; Post-traumatic stress disorder , chronic F43.12 and Memory change R41.3 [place] [id number] [place] [address] 38328- 6682 Jun, Post-traumatic stress disorder, chronic F43.12 ; Bipolar II disorder F31.81 and Memory change R41.3 [place] [id number] [place] [address] 08739- 2909 Jun, Right anterior knee pain M25.561 ; Shortness of breath R06.02 and Bronchiolitis J21.9 [place] [id number] [place] [address] 23939- 8297 Jun, [facility] [place] [id number] [place] [address] 99849- 4517 Jun, Bipolar II disorder F31.81 ; Post-traumatic stress disorder , chronic F43.12 and Memory change R41.3 [place] [id number] [place] [address] 55713- 1149 Jun, [place] [id number] [place] [address] 62910- 8069 Jun, Bipolar II disorder F31.81 ; Post-traumatic stress disorder , chronic F43.12 and Memory change R41.3 [place] [id number] [place] [address] 06805- 7232 May, [facility] [address], [place] [address]- 0546 May, [facility] [id number] [place] [address] 32447- 7346 May, [facility] [id number] [place] [address] 48366- 4436 May, Right anterior knee pain M25.561 ; Cough R05 ; Skin lesion of right arm L98.9 and Lesion of skin of face L98.9 [facility] [address] [place] [address] 69638- 0526 May, [facility] [id number] [place] [address] 55118- 6716 May, Post-traumatic stress disorder, chronic F43.12 ; Memory change R41.3 and Bipolar I disorder, most recent episode manic F31.10 [facility] [id number] [place] [address] 93815- 5256 May, [facility] [id number] [place] [address] 90140- 0370 May, Right anterior knee pain M25.561 [facility] [id number] [place] [address] 32497- 1076 May, [facility] [id number] [place] [address] 67781- 7512 Apr, Bipolar II disorder F31.81 ; Post-traumatic stress disorder , chronic F43.12 and Memory change R41.3 [facility] [id number] [address]- 6606 Apr, Bipolar II disorder F31.81 ; Post-traumatic stress disorder , chronic F43.12 and Memory change R41.3 [facility] [address], [place] [address]- 3496 Apr, Post-traumatic stress disorder, chronic F43.12 ; Bipolar II disorder F31.81 and Memory change R41.3 [place] [id number] [place] [address] 20637- 6181 Mar, Bipolar II disorder F31.81 ; Post-traumatic stress disorder , chronic F43.12 and Memory change R41.3 [place] [id number] [place] [address] 14024- 8878 Mar, Memory change R41.3 ; Confusion R41.0 and Dizziness R42 [place] [id number] [place] [address] 80956- 1693 Mar, Memory change R41.3 ; Encounter for immunization Z23 and Fatigue, unspecified type R53.83 [place] [id number] [place] [address] 18462- 0837 Mar, Bipolar II disorder F31.81 ; Post-traumatic stress disorder , chronic F43.12 and Memory change R41.3 [place] [id number] [place] [address] 27484- 5951 Jan, Bipolar II disorder F31.81 ; Post-traumatic stress disorder , chronic F43.12 and Memory change R41.3 [place] [id number] [place] [address] 58329- 8626 Jan, Post-traumatic stress disorder, chronic F43.12 ; Bipolar II disorder F31.81 ; Anxiety disorder, unspecified F41.9 and Memory change R41.3 [place] [id number] [place] [address] 47505- 2647 15 Feb, 2016 Bipolar II disorder F31.81 ; Post-traumatic stress disorder , chronic F43.12 and Memory change R41.3 [place] [id number] [place] [address] 15869- 7038 Dec, Bipolar II disorder F31.81 ; Post-traumatic stress disorder , chronic F43.12 and Memory change R41.3 [place] [id number] [place] [address] 49208- 7204 Dec, Memory loss R41.3 [facility] [id number] [place] [address] 59414- 5831 Dec, Bipolar II disorder F31.81 ; Post-traumatic stress disorder , chronic F43.12 and Memory change R41.3 [facility] [id number] [place] [address] 64482- 1461 Nov, Bipolar II disorder F31.81 and Post-traumatic stress disorder, chronic F43.12 [facility] [id number] [place] [address] 55620- 6848 Nov, Bipolar II disorder F31.81 ; Post-traumatic stress disorder , chronic F43.12 and Memory change R41.3 [facility] [id number] [place] [address] 39411- 6190 Oct, Post-traumatic stress disorder, chronic F43.12 and Bipolar disorder, unspecified F31.9 [facility] [id number] [place] [address] 98387- 9991 Oct, Bipolar II disorder F31.81 ; Post-traumatic stress disorder , chronic F43.12 and Memory change R41.3 [facility] [id number] [place] [address] [id number] Oct, Dental examination Z01.20 [facility] [id number] [place] [address] 66971- 2722 September, Bipolar II disorder F31.81 ; Post-traumatic stress disorder , chronic F43.12 and Memory change R41.3 [facility] [id number] [place] [address] 71659- 3477 Aug, Bipolar II disorder F31.81 and Post-traumatic stress disorder, chronic F43.12 [facility] [id number] [place] [address] 50947979- 3615 Aug, Bipolar II disorder F31.81 and Post-traumatic stress disorder, chronic F43.12 [facility] [id number] [place] [address] 91983- 4182 Jul, Bipolar II disorder F31.81 and Post-traumatic stress disorder, chronic F43.12 [place] [address] [place] [id number] [place] [address]- 5572 Jul, [facility] [id number] [place] [address] 00116- 1309 Jul, [facility] [id number] [place] [address] 74368- 6002 Jul, Post-traumatic stress disorder, chronic F43.12 and Bipolar disorder, unspecified F31.9 [place] [id number] [place] [address]- 0251 Jun, Bipolar II disorder F31.81 and Post-traumatic stress disorder, chronic F43.12 [place] [id number] [place] [address] 932329- 8967 Jun, Post-traumatic stress disorder, chronic F43.12 and Bipolar disorder, unspecified F31.9 [place] [id number] [place] [address] 90093- 9122 Jun, [place] [id number] [place] [address] [id number] Jun, Pharyngeal dysphagia R13.13 ; Hoarseness R49.0 and Cough R05 [place] [id number] [place] [address] [phone] Jun, Post-traumatic stress disorder, chronic F43.12 and Bipolar disorder, unspecified F31.9 [place] [id number] [place] [address] [id number] [id number] May, Cough R05 [place] [id number] [place], [place] [id number] May, Post-traumatic stress disorder, chronic F43.12 and Bipolar disorder, unspecified F31.9 [facility] [id number] [place] [address] 23162- 9625 May, Cough R05 [facility] [id number], [place] [address] May, [facility] [id number] [id number] May, Dental examination Z01.20 [facility] [id number] [place] [address] 27274- 7009 15 May, 2015 Bipolar II disorder F31.81 and Post-traumatic stress disorder, chronic F43.12 [facility] [id number] [place] [address] 74099- 0600 14 May, 2015 [facility] [id number] [place] [address] 07089- 4986 14 May, 2015 Bipolar II disorder F31.81 and Anxiety disorder, unspecified F41.9 [facility] [id number] [place] [address] 57878- 4910 10 May, 2015 Memory change R41.3 and History of renal insufficiency syndrome Z87.448 [facility] [id number] [place] [address] 15289- 6524 03 May, 2015 Memory change R41.3 ; Dry mouth R68.2 and History of renal insufficiency syndrome Z87.448 [facility] [id number] [place] [address] 75027- 7365 May, Bipolar II disorder F31.81 and Post-traumatic stress disorder, chronic F43.12 [facility] [id number] [place] [address] 60581- 4881 Mar, Bipolar disorder, unspecified F31.9 and Generalized anxiety disorder F41.1 [facility] [id number] [place] [address] 03034- 0464 Mar, Bipolar II disorder F31.81 [facility] [id number] [place] [address] 22494- 6088 Mar, Encounter for immunization Z23 [facility] [id number], [place] [address] 5490 Mar, [facility] [id number] [place] [address] 06109- 9163 Mar, Bipolar II disorder F31.81 [facility] [id number] [place] [address] 829950- 3074 Mar, [facility] [id number] [place] [address] 42501- 8715 Jan, Bipolar disorder, unspecified 296.80 and Anxiety disorder 300.00 [facility] [id number] [place] [address] 23951- 5563 Jan, [facility] [id number] [place] [address] 59499- 6905 Jan, Bipolar disorder, unspecified 296.80 and Anxiety disorder 300.00 [facility] [id number] [place] [address] 12899- 6259 Dec, Bipolar disorder, unspecified 296.80 and Anxiety disorder 300.00 [facility] [id number] [place] [address] 47766- 4469 Dec, [facility] [id number] [place] [address] 53003- 8429 Dec, Bipolar disorder, unspecified 296.80 and Anxiety disorder 300.00 [facility] [id number] [place] [address] 53052- 5833 Nov, Bipolar disorder, unspecified 296.80 and Anxiety disorder 300.00 [facility] [id number], [place] [address] 9901 Oct, Bipolar disorder, unspecified 296.80 and Anxiety disorder 300.00 [facility] [id number] [place] [address] 85995- 9344 Oct, Anxiety 300.00 and Bipolar disorder, unspecified 296.80 [facility] [id number] [place] [address] 53166- 4266 September, Bipolar disorder, unspecified 296.80 and Anxiety disorder 300.00 [facility] [id number], [place] [address]- 0981 September, [facility] [id number], [place] [address] 3996 Aug, Cough 786.2 [facility] [id number] [place] [address] 817705- 8666 Aug, [facility] [id number] [place] [address] 194721- 2131 Aug, [facility] [id number] [place] [address] 706206- 9133 Jul, [facility] [id number] 0449 Jul, [facility] [id number] [place] [address] 04291- 6418 Jul, [facility] [id number], [place] [address]- 2821 Jul, [facility] [id number], [place] [address]- 4060 Jul, [facility] [id number], [place] [address]- 8913 Jul, [facility] [id number], [place] [address]- 0576 Jun, [facility] [id number], [place] [address]- 9817 Jun, [facility] [id number] 5817 Jun, [facility] [id number], [place] [address]- 9991 Jun, [facility] [id number], [place] [address]- 8444 May, [facility] [place] [facility] [address] [id number] [place] [address]- 7229 May, [facility] [place] [facility] [address] [id number] [place] [address]78 May, [facility] [place] [facility] [address] [id number] [place] 3502 May, [facility] [place] [facility] [address] [id number] [place] [address]- 4516 Apr, [facility] [place] [facility] [address] [id number] [place] [address]- 6567 Apr, [facility] [place] [facility] [address] [id number] [place] [address]- 5493 Mar, [facility] [place] [facility] [address] [id number] [place] [address]- 9832 Mar, [facility] [place] [facility] [address] [id number] [place] [address]- 7463 Mar, [facility] [place] [facility] [address] [id number] [place] [address]- 1382 Mar, [facility] [place] [facility] [address] [id number] [place] [address]- 3086 Mar, [facility] [place] [facility] [address] [id number], [place] [address]- 5396 Mar, [facility] [place] [facility] [address] [id number] [address]- 2899 Jan, [facility] [place] [facility] [address] [id number] [place] [address]- 9622 Jan, [facility] [place] [facility] [address] [id number] [place] [address]- 0561 Jan, [facility] [place] [facility] [address] [id number] [place] [address]- 0150 Jan, [facility] [place] [facility] [address] [id number] [place] [address]- 9796 Jan, [facility] [place] [facility] [address] [id number] [place] [address]- 2209 Jan, [facility] [place] [facility] [address] [id number] [place] [address]- 6658 Dec, [facility] [place] [facility] [address] [id number] [place] [address]- 3365 Dec, [facility] [place] [facility] [address] [id number] [place] [address]- 5494 Dec, [facility] [place] [facility] [address] [id number] [place] [address]- 8944 Dec, [facility] [place] [facility] [address] [id number] [place] [address]- 9115 Dec, [facility] [place] [facility] [address] [id number] [place] [address]- 8938 Dec, [facility] [place] [facility] [address] [id number] [place] [address]- 3262 Nov, [facility] [place] [facility] [address] [id number] [place] [address]- 6354 Nov, [facility] [place] [facility] [address] [id number] [place] [address]- 5098 Nov, [facility] [place] [facility] [address] [id number] [place] [address]- 7653 Nov, [facility] [place] [facility] [address] [id number] [place] [address]- 3080 Nov, [facility] [place] [facility] [address] [id number] [place] [address]- 7428 Nov, [facility] [place] [facility] [address] [id number] [place] [address]- 1301 Nov, [facility] [place] [facility] [address] [id number] [place] [address]- 9583 Nov, [facility] [place] [facility] [address] [id number] [place] [address]- 7213 Nov, [facility] [place] [facility] [address] [id number] [place] [address]- 6203 Nov, [facility] [place] [facility] [address] [id number] [place] [address]- 3382 September, [facility] [place] [facility] [address] [id number] [place] [address]- 1128 September, [facility] [place] [facility] [address] [id number] [place] [address]- 1431 September, [facility] [place] [facility] [address] [id number] [place] [address]- 8354 September, [facility] [place] [facility] [address] [id number] [place] [address]- 1957 September, [facility] [place] [facility] [address] [id number] [place] [address]- 9089 September, [facility] [place] [facility] [address] [id number] [place] [address]- 5399 September, [facility] [place] [facility] [address] [id number] [place] [address]- 3409 September, [facility] [place] [facility] [address] [id number] [place] [address]- 8369 Aug, [facility] [place] [facility] [address] [id number] [place] [address]- 2342 Aug, [facility] [place] [facility] [address] [id number] [place] [address]- 8202 Aug, [facility] [place] [facility] [address] [id number] [place] [address]- 5195 Aug, [facility] [place] [facility] [address] [id number] [place] [address]- 8001 Jul, [facility] [place] [facility] [address] [id number] [place] [address]- 3205 Jul, [facility] [place] [facility] [address] [id number] [place] [address]- 5146 Jul, [facility] [place] [facility] [address] [id number] [place] [address]- 9726 Jul, [facility] [place] [facility] [address] [id number] [place] [address]- 7906 18 Jul, 2013 [facility] [place] [facility] [address] [id number] [place] [address] 2546 Jul, [facility] [place] [facility] [address] [id number] [place] [address]- 0136 Jul, [facility] [place] [facility] [address] [id number] [place] [address]- 9746 Jul, [facility] [place] [facility] [address] [id number] [place] [address]- 8196 Jul, [facility] [place] [facility] [address] [id number] [place] [address]- 6121 Jul, [facility] [place] [facility] [address] [facility] [id number] [place] [address]- 5767 Jul, [facility] [place] [facility] [address] [facility] [id number] [place] [address]- 2906 Jun, [facility] [place] [facility] [address] [facility] [id number] [place] [address]- 0510 Jun, [facility] [place] [facility] [address] [id number] [place] [address]- 2541 Jun, [facility] [place] [facility] [address] [id number] [place] [address]- 8206 Jun, [facility] [place] [facility] [address] [facility] [id number] [place] [address]- 3176 May, [facility] [place] [facility] [address] [facility] [id number] [place] [address]- 9950 May, [facility] [place] [facility] [address] [id number] [place] [address]- 1575 Apr, [facility] [place] [facility] [address] [id number] [place] [address]- 9290 Apr, [facility] [place] [facility] [address] [id number] [place] [address]- 0098 Apr, [facility] [place] [facility] [address] [id number], [place] [address]- 6188 Apr, [facility] [place] [facility] [address] [id number] [place] [address]- 3150 Apr, [facility] [place] [facility] [address] [id number], [place] [address]- 1380 Apr, [facility] [place] [facility] [address] [id number] [place] [address]- 8531 Apr, [facility] [place] [facility] [address] [id number], [place] [address]- 8366 Apr, [facility] [place] [facility] [address] [id number], [place] [address]- 6002 Apr, [facility] [place] [facility] [address] [id number], [place] [address]- 2408 Apr, [facility] [place] [facility] [address] [id number], [place] [address]- 1938 Apr, [facility] [place] [facility] [address] [id number], [place] [address]- 4245 Apr, [facility] [place] [facility] [address] [id number], [place] [address]- 3004 Mar, [facility] [place] [facility] [address] [id number], [place] [address]- 8144 Mar, [facility] [place] [facility] [address] [id number], [place] [address]- 4416 Mar, [facility] [place] [facility] [address] [facility] [id number] [place] [address]- 3034 Dec, [facility] [id number], [place] [address]- 7226 Dec, [facility] [id number], [place] [address]- 7010 Dec, [facility] [id number], [place] [address]- 7679 Oct, [facility] [id number], [place] [address]- 6619 May, [facility] [id number], [place] [address]- 7791 May, [facility] [id number], [place] [address]- 9822 May, [facility] [id number], [place] [address]- 9473 Dec, IMMUNIZATIONS No Known Immunizations SOCIAL HISTORY Never Assessed REASON FOR VISIT f/u PLAN OF CARE Activity Details Follow Up 2 Weeks Reason: VITAL SIGNS MEDICATIONS Unknown Medications RESULTS No Results PROCEDURES Procedure Date Ordered Result Body Site [facility] VISIT MENTAL HEALTH ESTAB PT September 04, 2017 Psychotherapy, patient &/family, 45 minutes, established patient September 04, 2017 INSTRUCTIONS MEDICATIONS ADMINISTERED No Known Medications [...] Gall Bladder Surgical History Tubalization Hospitalization History [facility] 12/2014 Hospitalization History Obstructive Airway Disease, Mood disorder, cough-[facility] 07/02/15 Hospitalization History Bronchitis- [facility] 06/2016
--- OUTSIDE RECORDS SUMMARY | 2018-02-03 08:46 | XMS REPORT ---
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 Name Role Phone MARYSOL CANSECO Unavailable PROBLEMS Type Condition ICD9-CM Code [id number] Code Onset Dates Condition Status SNOMED Code Problem Slow transit constipation K59.01 Active 73288462 Problem Bipolar disorder, current episode mixed, mild F31.61 Active 092318979 Problem Chronic obstructive pulmonary disease, unspecified COPD type J44.9 Active 49668817 Problem Bipolar II disorder F31.81 Active 12802111 Problem Post-traumatic stress disorder, chronic F43.12 Active 84827411 Problem Bipolar affective disorder, currently manic, mild F31.11 Active 095239509 Problem Lumbago with sciatica, left side M54.42 Active 032648621 Problem Essential hypertension I10 Active 86567092 Problem Other chronic pain G89.29 Active 21313025 Problem Bipolar disorder, in partial remission, most recent episode mixed F31.77 Active 50072437 Problem Paresthesias R20.2 Active 43073367 Problem Irritable bowel syndrome with both constipation and diarrhea K58.2 Active 15238277 ALLERGIES No Information ENCOUNTERS Encounter Location Date Diagnosis [facility] [id number] [place] [address] 83265- 1901 Jan, [facility] [id number] [place] [address] 76342- 5807 Jan, [facility] [id number] [place] [address] 18237- 7629 Jan, [facility] [id number] [place] [address] 55766- 2665 Dec, [facility] [id number] [place] [address] 26964- 0709 Nov, Bipolar II disorder F31.81 and Post-traumatic stress disorder, chronic F43.12 [facility] [id number] [place] [address] 00275- 5860 Nov, Essential hypertension I10 ; Lymph node enlargement R59.9 ; Paresthesias R20.2 ; Irritable bowel syndrome with both constipation and diarrhea K58.2 ; Lumbago with sciatica, left side M54.42 and Other chronic pain G89.29 [facility] [id number] [place] [address] 69834- 9973 Nov, Bipolar disorder, in partial remission, most recent episode mixed F31.77 [facility] [id number] [place] [address] 93855- 1033 Oct, Bipolar disorder, in partial remission, most recent episode mixed F31.77 [facility] [id number] [place] [address] 58971 -9914 Oct, Scabies B86 [facility] [id number] [place] [address] 43226- 8507 Oct, Bipolar disorder, in partial remission, most recent episode mixed F31.77 [facility] [id number] [place] [address] 82156- 0424 Oct, [place] [id number] [place] [address] 57269- 3024 Oct, Bipolar II disorder F31.81 and Post-traumatic stress disorder, chronic F43.12 [facility] [id number] [place] [address] 39753 -3188 Oct, Scabies B86 [facility] [id number] [place] [address] 65711- 9751 Oct, [facility] [id number] [place] [address] 15386- 0929 September, Bipolar II disorder F31.81 and Post-traumatic stress disorder, chronic F43.12 [facility] [id number] [place] [address] 36281- 6446 September, Bipolar disorder, in partial remission, most recent episode mixed F31.77 [place] [address] 66787- 8905 September, COPD exacerbation J44.1 and Elevated blood pressure reading R03.0 [place] [facility] [address] 00509- 0580 September, [facility] [facility] [address] 21734- 3748 September, Pain in left ankle and joints of left foot M25.572 ; Dermatitis L30.9 and Other chronic pain G89.29 [facility] [facility] [address] 08839- 7439 Aug, Right elbow pain M25.521 and Elevated blood pressure reading R03.0 [place] [facility] [address] 83758- 1215 Aug, Bipolar disorder, current episode mixed, mild F31.61 and BMI 40.0-44.9, adult Z68.41 [place] [facility] [address] 97643- 5535 Aug, [facility] [id number] [place] [address] 27407- 4843 Aug, Bipolar II disorder F31.81 and Post-traumatic stress disorder, chronic F43.12 [facility] [facility] [id number] [place] [address] 21723- 3497 Jul, Elevated blood pressure reading R03.0 [facility] [facility] [address] 22561- 1823 Jul, Bipolar II disorder F31.81 and Post-traumatic stress disorder, chronic F43.12 [place] [facility] [id number] [place] [address] 72868- 7835 Jul, Bipolar disorder, current episode mixed, mild F31.61 [facility] [id number] [place] [address] 62451 -2268 12 Jul, 2017 Right foot pain M79.671 ; Allergic contact dermatitis, unspecified trigger L23.9 ; Contusion of right foot, initial encounter S90.31XA and BMI 40.0-44.9, adult Z68.41 [facility] [address] 48812 -4490 02 Jul, 2017 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 [place] [address] 08317- 1593 Jul, [address] 79967- 2632 15 Jul, 2017 Bipolar disorder, current episode mixed, mild F31.61 [place] [address] 72997- 1341 15 Jul, 2017 Bipolar II disorder F31.81 ; Post-traumatic stress disorder , chronic F43.12 and Memory change R41.3 [facility] [facility] [address] 83578- 0631 14 Jul, 2017 Elevated blood pressure reading R03.0 ; Chronic obstructive pulmonary disease, unspecified COPD type J44.9 ; Long-term use of high-risk medication Z79.899 and Cognitive decline R41.89 [place] [facility] [id number] [place] [address] 67169- 7092 06 Jul, 2017 Elevated blood pressure reading R03.0 [facility] [facility] [id number] [place] [address] 45231- 3210 05 Jul, 2017 [place] [address] 51393- 9965 01 Jul, 2017 Bipolar II disorder F31.81 ; Post-traumatic stress disorder , chronic F43.12 and Memory change R41.3 [place] [facility] [address] 10071- 3433 Jun, [facility] [id number] [place] [address] 27332- 6233 Jun, Bipolar II disorder F31.81 ; Post-traumatic stress disorder , chronic F43.12 and Memory change R41.3 [facility] [facility] [id number] [place] [address] 29204- 2356 10 Jun, 2017 Localized swelling, mass or lump of neck R22.1 ; Slow transit constipation K59.01 and Elevated blood pressure reading R03.0 [facility] [id number] [place] [address] 93099- 1126 Jun, [facility] [facility] [id number] [place] [address] 66089- 1656 Jun, Bipolar affective disorder, currently manic, mild F31.11 [facility] [place] [id number] [place] [address] 70999 -8351 15 May, 2017 [facility] [place] [id number] [place] [address] 07156 -7228 14 May, 2017 [place] [id number] [place] [address] 95447- 5654 May, Bipolar II disorder F31.81 ; Post-traumatic stress disorder , chronic F43.12 and Memory change R41.3 [place] [id number] [place] [address] 37065- 4255 May, [facility] [id number] [place] [address] 52964- 3128 08 May, 2017 [facility] [facility] [id number] [place] [address] 64398- 9283 05 May, 2017 Bipolar affective disorder, currently manic, mild F31.11 [facility] [id number] [place] [address] 68813- 4100 04 May, 2017 [facility] [id number] [place] [address] 49072 -9521 May, Localized swelling, mass or lump of neck R22.1 and Localized swelling, mass and lump, head R22.0 [facility] [id number] [place] [address] 19720- 4320 Apr, [facility] [id number] [place] [address] 11645- 4084 Apr, Bipolar affective disorder, currently manic, mild F31.11 [facility] [address] 02339- 2832 Apr, Bipolar II disorder F31.81 [facility] [address] 54495- 9946 Apr, [facility] [address] 91670- 4265 Apr, Bipolar affective disorder, currently manic, mild F31.11 [place] [id number] [place] [address] 59700- 3282 Apr, Actinic keratosis L57.0 [facility] [id number] [place] [address] 72778- 5395 Apr, Bipolar affective disorder, currently manic, mild F31.11 [facility] [id number] [place] [address] 85458- 5893 Apr, [facility] [id number] [place] [address] 89816 -7073 Mar, Allergic contact dermatitis, unspecified trigger L23.9 and Right leg pain M79.604 [facility] [id number] [place] [address] 05995- 1942 Mar, [facility] [address] 81379- 4672 Mar, Bipolar II disorder F31.81 ; Post-traumatic stress disorder , chronic F43.12 and Memory change R41.3 [place] [address] [address]- 7630 04 Mar, 2017 Actinic keratosis L57.0 [facility] [id number] [place] [address] 15205- 7703 Jan, Bipolar II disorder F31.81 ; Post-traumatic stress disorder , chronic F43.12 and Memory change R41.3 [facility] [id number] [place] [address] 30825- 4492 Jan, Bipolar affective disorder, currently manic, mild F31.11 [facility] [id number] [place] [address] 79654- 0748 13 Jan, 2017 Bipolar affective disorder, currently manic, mild F31.11 [facility] [id number] [place] [address] 50025- 5105 Jan, Bipolar II disorder F31.81 ; Post-traumatic stress disorder , chronic F43.12 and Memory change R41.3 [facility] [id number] [place] [address] 66278- 6872 Dec, Bipolar II disorder F31.81 ; Post-traumatic stress disorder , chronic F43.12 and Memory change R41.3 [facility] [id number] [place] [address] 46744- 5432 Dec, Bipolar affective disorder, currently manic, mild F31.11 [facility] [id number] [place] [address] 59072- 8887 Dec, Bipolar affective disorder, currently manic, mild F31.11 [facility] [id number] [place] [address] 30199- 5830 Dec, Post-traumatic stress disorder, chronic F43.12 [facility] [id number] [place] [address] 43188- 1634 Dec, Bipolar II disorder F31.81 ; Post-traumatic stress disorder , chronic F43.12 and Memory change R41.3 [facility] [id number] [place] [address]- 2546 Dec, Post-traumatic stress disorder, chronic F43.12 [facility] [id number] [address]- 7653 Nov, [facility] [id number] [address]- 7435 Nov, Bipolar II disorder F31.81 ; Post-traumatic stress disorder , chronic F43.12 and Memory change R41.3 [facility] [id number] [address]- 8701 Nov, [facility] [id number] [place] [address] 04564- 3061 Nov, Post-traumatic stress disorder, chronic F43.12 and Bipolar II disorder F31.81 [place] [address] [address]- 1199 Nov, Actinic keratosis L57.0 [facility] [address] [address]- 7377 Oct, Bipolar II disorder F31.81 ; Post-traumatic stress disorder , chronic F43.12 and Memory change R41.3 [facility] [address] [address]- 8350 Oct, Post-traumatic stress disorder, chronic F43.12 ; Bipolar II disorder F31.81 and Memory change R41.3 [place] [address] [address]- 7411 Oct, Bipolar II disorder F31.81 ; Post-traumatic stress disorder , chronic F43.12 and Memory change R41.3 [facility] [address] [place] [address]- 7469 Oct, Actinic keratosis L57.0 [facility] [address] [address]- 6250 September, Bipolar II disorder F31.81 ; Post-traumatic stress disorder , chronic F43.12 and Memory change R41.3 [place] [address] [address]- 3977 September, Bipolar II disorder F31.81 ; Post-traumatic stress disorder , chronic F43.12 and Memory change R41.3 [place] [address] [address]- 5062 September, Post-traumatic stress disorder, chronic F43.12 ; Bipolar II disorder F31.81 and Memory change R41.3 [place] [address] [address]- 5711 Jul, Bipolar II disorder F31.81 ; Post-traumatic stress disorder , chronic F43.12 and Memory change R41.3 [place] [address] [address]- 9079 Jul, Bipolar II disorder F31.81 ; Post-traumatic stress disorder , chronic F43.12 and Memory change R41.3 [place] [address] [place] [address]- 9231 Jul, Bipolar II disorder F31.81 ; Post-traumatic stress disorder , chronic F43.12 and Memory change R41.3 [place] [address] [address]- 8925 Jul, Post-traumatic stress disorder, chronic F43.12 ; Bipolar II disorder F31.81 and Memory change R41.3 [place] [address] [address]- 0803 Jul, Tear of medial meniscus of right knee, unspecified tear type , unspecified whether old or current tear, initial encounter S83.241A [facility] [id number] [place] [address] 69605- 4921 Jul, Bipolar II disorder F31.81 ; Post-traumatic stress disorder , chronic F43.12 and Memory change R41.3 [place] [id number] [place] [address] 42220- 2070 07 Jul, 2016 Shortness of breath R06.02 ; Mixed hyperlipidemia E78.2 and Chronic fatigue R53.82 [place] [id number] [place] [address] 02637- 9770 07 Jul, 2016 Bipolar II disorder F31.81 ; Post-traumatic stress disorder , chronic F43.12 and Memory change R41.3 [place] [id number] [place] [address] 46230- 1707 Jul, [place] [id number] [place] [address] 06068- 9753 Jun, Bipolar II disorder F31.81 ; Post-traumatic stress disorder , chronic F43.12 and Memory change R41.3 [place] [id number] [place] [address] 43235- 0844 Jun, Post-traumatic stress disorder, chronic F43.12 ; Bipolar II disorder F31.81 and Memory change R41.3 [place] [id number] [place] [address] 81369- 8710 Jun, Right anterior knee pain M25.561 ; Shortness of breath R06.02 and Bronchiolitis J21.9 [place] [id number] [place] [address] 93283- 3757 Jun, [place] [id number] [place] [address] 75703- 6955 Jun, Bipolar II disorder F31.81 ; Post-traumatic stress disorder , chronic F43.12 and Memory change R41.3 [place] [id number] [place] [address] 69568- 1636 Jun, [place] [id number] [place] [address] 94082- 0618 Jun, Bipolar II disorder F31.81 ; Post-traumatic stress disorder , chronic F43.12 and Memory change R41.3 [place] [id number] [place] [address] 44260- 8093 May, [facility] [address] [address]- 2646 May, [facility] [address] [id number] [place] [address] 00116- 2046 May, [facility] [id number] [place] [address] 58178- 0056 May, Right anterior knee pain M25.561 ; Cough R05 ; Skin lesion of right arm L98.9 and Lesion of skin of face L98.9 [facility] [address] [place] [address] 07856- 6636 May, [facility] [id number] [place] [address] 94681- 0806 May, Post-traumatic stress disorder, chronic F43.12 ; Memory change R41.3 and Bipolar I disorder, most recent episode manic F31.10 [facility] [id number] [place] [address] 23699- 9646 May, [facility] [id number] [place] [address] 92583- 4226 May, Right anterior knee pain M25.561 [facility] [id number] [place] [address] 13256- 6416 May, [facility] [id number] [place] [address] 35475- 4450 Apr, Bipolar II disorder F31.81 ; Post-traumatic stress disorder , chronic F43.12 and Memory change R41.3 [facility] [id number] [address]- 8856 Apr, Bipolar II disorder F31.81 ; Post-traumatic stress disorder , chronic F43.12 and Memory change R41.3 [facility] [address], [place] [address]- 1766 Apr, Post-traumatic stress disorder, chronic F43.12 ; Bipolar II disorder F31.81 and Memory change R41.3 [place] [id number] [place] [address] 91077- 8435 Mar, Bipolar II disorder F31.81 ; Post-traumatic stress disorder , chronic F43.12 and Memory change R41.3 [place] [id number] [place] [address] 25076- 1752 Mar, Memory change R41.3 ; Confusion R41.0 and Dizziness R42 [place] [id number] [place] [address] 67557- 8303 Mar, Memory change R41.3 ; Encounter for immunization Z23 and Fatigue, unspecified type R53.83 [place] [id number] [place] [address] 91582- 5296 Mar, Bipolar II disorder F31.81 ; Post-traumatic stress disorder , chronic F43.12 and Memory change R41.3 [place] [id number] [place] [address] 69438- 3800 Jan, Bipolar II disorder F31.81 ; Post-traumatic stress disorder , chronic F43.12 and Memory change R41.3 [place] [id number] [place] [address] 40795- 1729 Jan, Post-traumatic stress disorder, chronic F43.12 ; Bipolar II disorder F31.81 ; Anxiety disorder, unspecified F41.9 and Memory change R41.3 [place] [id number] [place] [address] 74834- 6504 15 Feb, 2016 Bipolar II disorder F31.81 ; Post-traumatic stress disorder , chronic F43.12 and Memory change R41.3 [place] [id number] [place] [address] 81700- 6225 Dec, Bipolar II disorder F31.81 ; Post-traumatic stress disorder , chronic F43.12 and Memory change R41.3 [place] [id number] [place] [address] 21936- 0266 Dec, Memory loss R41.3 [facility] [id number] [place] [address] 46111- 2987 Dec, Bipolar II disorder F31.81 ; Post-traumatic stress disorder , chronic F43.12 and Memory change R41.3 [facility] [id number] [place] [address] 83187- 8834 Nov, Bipolar II disorder F31.81 and Post-traumatic stress disorder, chronic F43.12 [facility] [id number] [place] [address] 16399- 9329 Nov, Bipolar II disorder F31.81 ; Post-traumatic stress disorder , chronic F43.12 and Memory change R41.3 [facility] [id number] [place] [address] 14630- 8684 Oct, Post-traumatic stress disorder, chronic F43.12 and Bipolar disorder, unspecified F31.9 [facility] [id number] [place] [address] 92281- 9892 Oct, Bipolar II disorder F31.81 ; Post-traumatic stress disorder , chronic F43.12 and Memory change R41.3 [facility] [id number] [place] [address] [id number] Oct, Dental examination Z01.20 [facility] [id number] [place] [address] 30274- 1388 September, Bipolar II disorder F31.81 ; Post-traumatic stress disorder , chronic F43.12 and Memory change R41.3 [facility] [id number] [place] [address] 94265- 4778 Aug, Bipolar II disorder F31.81 and Post-traumatic stress disorder, chronic F43.12 [facility] [id number] [place] [address] 94622440- 8178 Aug, Bipolar II disorder F31.81 and Post-traumatic stress disorder, chronic F43.12 [facility] [id number] [place] [address] 07292- 7076 Jul, Bipolar II disorder F31.81 and Post-traumatic stress disorder, chronic F43.12 [place] [address] [id number] [place] [address] 6119 Jul, [facility] [id number] [place] [address] 09762- 9446 Jul, [facility] [id number] [place] [address] 55627- 4860 Jul, Post-traumatic stress disorder, chronic F43.12 and Bipolar disorder, unspecified F31.9 [place] [address] [id number] [place] [address] 5273 Jun, Bipolar II disorder F31.81 and Post-traumatic stress disorder, chronic F43.12 [place] [id number] [place] [address] 231574- 8478 Jun, Post-traumatic stress disorder, chronic F43.12 and Bipolar disorder, unspecified F31.9 [place] [id number] [place] [address] 21257- 7726 Jun, [place] [id number] [place] [address] 34667- 6003 Jun, Pharyngeal dysphagia R13.13 ; Hoarseness R49.0 and Cough R05 [facility] [id number] [place] [address] 75564- 4399 Jun, Post-traumatic stress disorder, chronic F43.12 and Bipolar disorder, unspecified F31.9 [place] [id number] [place] [address] [phone]- 5781 May, Cough R05 [facility] [address] [id number] [place] [id number] May, Post-traumatic stress disorder, chronic F43.12 and Bipolar disorder, unspecified F31.9 [place] [id number] [place] [address] [phone]- 7301 May, Cough R05 [facility] [id number] [address] May, [facility] [id number] [id number] May, Dental examination Z01.20 [facility] [id number] [place] [address] 19762- 2940 15 May, 2015 Bipolar II disorder F31.81 and Post-traumatic stress disorder, chronic F43.12 [facility] [id number] [place] [address] 53049- 3485 14 May, 2015 [facility] [id number] [place] [address] [id number]- 1610 14 May, 2015 Bipolar II disorder F31.81 and Anxiety disorder, unspecified F41.9 [facility] [id number] [place] [address] 15886- 7884 10 May, 2015 Memory change R41.3 and History of renal insufficiency syndrome Z87.448 [facility] [id number] [place] [address] 13188- 5807 03 May, 2015 Memory change R41.3 ; Dry mouth R68.2 and History of renal insufficiency syndrome Z87.448 [facility] [id number] [place] [address] 69715- 5307 May, Bipolar II disorder F31.81 and Post-traumatic stress disorder, chronic F43.12 [facility] [id number] [place] [address] 85977- 2035 Mar, Bipolar disorder, unspecified F31.9 and Generalized anxiety disorder F41.1 [facility] [id number] [place] [address] 30490- 0963 Mar, Bipolar II disorder F31.81 [facility] [id number] [place] [address] 18173- 7958 Mar, Encounter for immunization Z23 [facility] [id number] [address] 69[address] Mar, [facility] [id number] [place] [address] 60974- 0449 Mar, Bipolar II disorder F31.81 [facility] [id number] [place] [address] 289398- 1803 Mar, [facility] [id number] [place] [address] 66787- 7045 Jan, Bipolar disorder, unspecified 296.80 and Anxiety disorder 300.00 [facility] [id number] [place] [address] 37107- 1313 Jan, [facility] [id number] [place] [address] 09422- 9947 Jan, Bipolar disorder, unspecified 296.80 and Anxiety disorder 300.00 [facility] [id number] [place] [address] 99760- 1918 Dec, Bipolar disorder, unspecified 296.80 and Anxiety disorder 300.00 [facility] [id number] [place] [address] 09842- 7432 Dec, [facility] [id number] [place] [address] 96213- 5682 Dec, Bipolar disorder, unspecified 296.80 and Anxiety disorder 300.00 [facility] [id number] [place] [address] 97808- 9062 Nov, Bipolar disorder, unspecified 296.80 and Anxiety disorder 300.00 [facility] [id number] [address] 1606 Oct, Bipolar disorder, unspecified 296.80 and Anxiety disorder 300.00 [facility] [id number] [place] [address] 81046- 3743 Oct, Anxiety 300.00 and Bipolar disorder, unspecified 296.80 [facility] [id number] [place] [address] 98880- 3507 September, Bipolar disorder, unspecified 296.80 and Anxiety disorder 300.00 [facility] [id number] [address] 3029 September, [facility] [id number] [address] 6601 Aug, Cough 786.2 [facility] [id number] [place] [address] 203974- 6626 Aug, [facility] [id number] [place] [address] 71643 Aug, [facility] [id number] [place] [address] 571720- 3664 Jul, [facility] [id number] 3607 Jul, [facility] [id number] [place] [address] 37846- 3230 Jul, [facility] [id number] [address]- 3216 Jul, [facility] [id number] [address]- 5445 Jul, [facility] [id number] [address]- 9280 Jul, [facility] [id number] [address]- 3529 Jun, [facility] [id number] [address]- 0306 Jun, [facility] [id number] 2749 Jun, [facility] [id number] [address]- 3312 Jun, [facility] [id number] [address]- 9690 May, [facility] [place] [facility] [address] [id number] [place] [address]- 2395 May, [facility] [place] [facility] [address] [id number] [place] [address] May, [facility] [place] [facility] [address] [id number] [place] [address]85 May, [facility] [place] [facility] [address] [id number] [place] [address]- 8210 Apr, [facility] [place] [facility] [address] [id number] [place] [address]- 9826 Apr, [facility] [place] [facility] [address] [id number] [place] [address]- 0720 Mar, [facility] [place] [facility] [address] [id number] [place] [address]- 6769 Mar, [facility] [place] [facility] [address] [id number] [place] [address]- 9242 Mar, [facility] [place] [facility] [address] [id number] [place] [address]- 6540 Mar, [facility] [place] [facility] [address] [id number] [place] [address]- 0700 Mar, [facility] [place] [facility] [address] [id number], [place] [address]- 7162 Mar, [facility] [place] [facility] [address] [id number] [address]- 0552 Jan, [facility] [place] [facility] [address] [id number] [place] [address]- 4835 Jan, [facility] [place] [facility] [address] [id number] [place] [address]- 2399 Jan, [facility] [place] [facility] [address] [id number] [place] [address]- 3908 Jan, [facility] [place] [facility] [address] [id number] [place] [address]- 9065 Jan, [facility] [place] [facility] [address] [id number] [place] [address]- 7481 Jan, [facility] [place] [facility] [address] [id number] [place] [address]- 8272 Dec, [facility] [place] [facility] [address] [id number] [place] [address]- 4402 Dec, [facility] [place] [facility] [address] [id number] [place] [address]- 7518 Dec, [facility] [place] [facility] [address] [id number] [place] [address]- 8018 Dec, [facility] [place] [facility] [address] [id number] [place] [address]- 4202 Dec, [facility] [place] [facility] [address] [id number] [place] [address]- 9333 Dec, [facility] [place] [facility] [address] [id number] [place] [address]- 3741 Nov, [facility] [place] [facility] [address] [id number] [place] [address]- 7222 Nov, [facility] [place] [facility] [address] [id number] [place] [address]- 7178 Nov, [facility] [place] [facility] [address] [id number] [place] [address]- 6155 Nov, [facility] [place] [facility] [address] [id number] [place] [address]- 7111 Nov, [facility] [place] [facility] [address] [id number] [place] [address]- 9761 Nov, [facility] [place] [facility] [address] [id number] [place] [address]- 2599 Nov, [facility] [place] [facility] [address] [id number] [place] [address]- 3634 Nov, [facility] [place] [facility] [address] [id number] [place] [address]- 0906 Nov, [facility] [place] [facility] [address] [id number] [place] [address]- 6795 Nov, [facility] [place] [facility] [address] [id number] [place] [address]- 6822 September, [facility] [place] [facility] [address] [id number] [place] [address]- 5947 September, [facility] [place] [facility] [address] [id number] [place] [address]- 1697 September, [facility] [place] [facility] [address] [id number] [place] [address]- 9811 September, [facility] [place] [facility] [address] [id number] [place] [address]- 1906 September, [facility] [place] [facility] [address] [id number] [place] [address]- 8770 September, [facility] [place] [facility] [address] [id number] [place] [address]- 2826 September, [facility] [place] [facility] [address] [id number] [place] [address]- 2167 September, [facility] [place] [facility] [address] [id number] [place] [address]- 2439 Aug, [facility] [place] [facility] [address] [id number] [place] [address]- 1272 Aug, [facility] [place] [facility] [address] [id number] [place] [address]- 2160 Aug, [facility] [place] [facility] [address] [id number] [place] [address]- 5439 Aug, [facility] [place] [facility] [address] [id number] [place] [address]- 6809 Jul, [facility] [place] [facility] [address] [id number] [place] [address]- 4173 Jul, [facility] [place] [facility] [address] [id number] [place] [address]- 9176 Jul, [facility] [place] [facility] [address] [id number] [place] [address]- 0826 Jul, [facility] [place] [facility] [address] [id number] [place] [address]- 7756 18 Jul, 2013 [facility] [place] [facility] [address] [id number] [place] [address] 2546 Jul, [facility] [place] [facility] [address] [id number] [place] [address]- 6386 Jul, [facility] [place] [facility] [address] [id number] [place] [address]- 9176 Jul, [facility] [place] [facility] [address] [id number] [place] [address]- 9726 Jul, [facility] [place] [facility] [address] [id number] [place] [address]- 9422 Jul, [facility] [place] [facility] [address] [facility] [id number] [place] [address]- 1290 Jul, [facility] [place] [facility] [address] [facility] [id number] [place] [address]- 7404 Jun, [facility] [place] [facility] [address] [facility] [id number] [place] [address]- 1964 Jun, [facility] [place] [facility] [address] [id number] [place] [address]- 2547 Jun, [facility] [place] [facility] [address] [id number] [place] [address]- 0506 Jun, [facility] [place] [facility] [address] [facility] [id number] [place] [address]- 7176 May, [facility] [place] [facility] [address] [facility] [id number] [place] [address]- 2188 May, [facility] [place] [facility] [address] [id number] [place] [address]- 5750 Apr, [facility] [place] [facility] [address] [id number] [place] [address]- 2294 Apr, [facility] [place] [facility] [address] [id number] [place] [address]- 5799 Apr, [facility] [place] [facility] [address] [id number], [place] [address]- 2438 Apr, [facility] [place] [facility] [address] [id number] [place] [address]- 3288 Apr, [facility] [place] [facility] [address] [id number], [place] [address]- 1650 Apr, [facility] [place] [facility] [address] [id number] [place] [address]- 0165 Apr, [facility] [place] [facility] [address] [id number], [place] [address]- 3765 Apr, [facility] [place] [facility] [address] [id number], [place] [address]- 6424 Apr, [facility] [place] [facility] [address] [id number], [place] [address]- 4167 Apr, [facility] [place] [facility] [address] [id number], [place] [address]- 2412 Apr, [facility] [place] [facility] [address] [id number], [place] [address]- 5556 Apr, [facility] [place] [facility] [address] [id number], [place] [address]- 2032 Mar, [facility] [place] [facility] [address] [id number], [place] [address]- 9219 Mar, [facility] [place] [facility] [address] [id number], [place] [address]- 2748 Mar, [facility] [place] [facility] [address] [facility] [id number], [place] [address]- 2846 Dec, [facility] [id number] [address]- 6157 Dec, [facility] [id number] [address]- 7410 Dec, [facility] [id number] [address]- 9439 Oct, [facility] [id number], [place] [address]- 0741 May, [facility] [id number], [place] [address]- 2470 May, [facility] [id number], [place] [address]- 8180 May, [facility] [id number], [place] [address]- 0942 Dec, IMMUNIZATIONS No Known Immunizations SOCIAL HISTORY Never Assessed REASON FOR VISIT Blood pressure check-Valdemar, compared todays bp with home bp monitor and her home monitor reads slightly high, 150/100 PLAN OF CARE VITAL SIGNS Height 66 in 2017-09-04 Blood pressure systolic 148 mmHg 2017-09-04 Blood pressure diastolic 88 mmHg 2017-09-04 MEDICATIONS Unknown Medications RESULTS No Results PROCEDURES [...] Gall Bladder Surgical History Tubalization Hospitalization History [facility] 12/2014 Hospitalization History Obstructive Airway Disease, Mood disorder, cough-[facility] 07/02/15 Hospitalization History Bronchitis- [facility] 06/2016
--- OUTSIDE RECORDS SUMMARY | 2018-02-03 08:47 | XMS REPORT ---
Author Author SHANTAL TOWNSEND Organization [facility] Address [address] [place] [address] Care Team Providers Care Blood Typer Name Role Phone SHANTAL TOWNSEND Unavailable PROBLEMS Type Condition ICD9-CM Code VEO07-DF Code Onset Dates Condition Status SNOMED Code Problem Mixed hyperlipidemia E78.2 Active 086888654 Problem Bipolar affective disorder, currently manic, mild F31.11 Active 869259082 Problem Chronic fatigue R53.82 Active 58051254 Problem COPD exacerbation J44.1 Active 452051120 Problem Other chronic pain G89.29 Active 80334845 Problem Chronic obstructive pulmonary disease, unspecified COPD type J44.9 Active 66720886 Problem Slow transit constipation K59.01 Active 88330694 Problem Bipolar disorder, in partial remission, most recent episode mixed F31.77 Active 14323165 Problem Bipolar disorder, current episode mixed, mild F31.61 Active 401695402 Problem Bipolar II disorder F31.81 Active 95179616 Problem History of renal insufficiency syndrome Z87.448 Active 671076835 Problem Pharyngeal dysphagia R13.13 Active [id number] Problem Post-traumatic stress disorder, chronic F43.12 Active 42670333 Problem Confusion R41.0 Active 218415374 Problem Memory change R41.3 Active 678443741 Problem Dizziness R42 Active 617711460 ALLERGIES Substance Reaction Event Type Date Status Xanax memory problems, mental disorganization Non Drug Allergy Jul, Active Silk tape rash Non Drug Allergy Jul, Active ENCOUNTERS Encounter Location Date Diagnosis [facility] [id number] [address] Jan, [facility] [id number] [address] Dec, [facility] [id number] [address]18 Dec, [facility] [address] [facility] [id number] [address] Nov, [facility] [address] [facility] [id number] [place] [address] 57411- 9036 Nov, [facility] [id number] [place] [address] 17250- 0856 Nov, [facility] [id number] [place] [address] 00147- 8246 Oct, Bipolar disorder, in partial remission, most recent episode mixed F31.77 [facility] [id number] [place] [address] 80883 -1176 Oct, Scabies B86 [facility] [id number] [place] [address] 20814- 7526 Oct, Bipolar disorder, in partial remission, most recent episode mixed F31.77 [facility] [address] [address] Oct, [facility] [id number] [place] [address] 82218- 9307 Oct, Bipolar II disorder F31.81 and Post-traumatic stress disorder, chronic F43.12 [facility] [id number], [place] [address] Oct, Sc[facility] B86 [facility] [id number], [place] [address] 5209 Oct, [facility] [id number] [address] 1106 September, Bipolar II disorder F31.81 and Post-traumatic stress disorder, chronic F43.12 [facility] [id number] [address] 9856 September, Bipolar disorder, in partial remission, most recent episode mixed F31.77 [facility] [id number] [place] [address] 26015- 6397 September, COPD exacerbation J44.1 and Elevated blood pressure reading R03.0 [address] [address] 68183- 4816 September, [place] [id number] [place] [address] 36375- 0104 September, Pain in left ankle and joints of left foot M25.572 ; Dermatitis L30.9 and Other chronic pain G89.29 [place] [address] 02139- 7245 Aug, Right elbow pain M25.521 and Elevated blood pressure reading R03.0 [place] [address] 35889- 1194 Aug, Bipolar disorder, current episode mixed, mild F31.61 and BMI 40.0-44.9, adult Z68.41 [place] [id number] [place] [address] 69161- 6267 Aug, [place] [id number] [place] [address] 93481- 9611 Aug, Bipolar II disorder F31.81 and Post-traumatic stress disorder, chronic F43.12 [place] [id number] [place] [address] 88139- 7464 Jul, Elevated blood pressure reading R03.0 [place] [id number] [place] [address] 14918- 6713 Jul, Bipolar II disorder F31.81 and Post-traumatic stress disorder, chronic F43.12 [place] [address] 84162- 9905 Jul, Bipolar disorder, current episode mixed, mild F31.61 [facility] [id number] [place] [address] 89678 -8031 Jul, Right foot pain M79.671 ; Allergic contact dermatitis, unspecified trigger L23.9 ; Contusion of right foot, initial encounter S90.31XA and BMI 40.0-44.9, adult Z68.41 [facility] [address] 51572 -3877 Jul, 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 [facility] [address] 22330- 6345 Jul, [place] [address] 68498- 1138 Jul, Bipolar disorder, current episode mixed, mild F31.[address] 48909- 0849 15 Jul, 2017 Bipolar II disorder F31.81 ; Post-traumatic stress disorder , chronic F43.12 and Memory change R41.3 [place] [address] 59470- 4775 14 Jul, 2017 Elevated blood pressure reading R03.0 ; Chronic obstructive pulmonary disease, unspecified COPD type J44.9 ; Long-term use of high-risk medication Z79.899 and Cognitive decline R41.89 [place] [id number] [place] [address] 79763- 5891 06 Jul, 2017 Elevated blood pressure reading R03.0 [place] [id number] [place] [address] 00248- 0192 05 Jul, 2017 [place] [id number] [place] [address] 57650- 6944 Jul, Bipolar II disorder F31.81 ; Post-traumatic stress disorder , chronic F43.12 and Memory change R41.3 [place] [id number] [place] [address] 32115- 7763 Jun, [place] [id number] [place] [address] 05711- 6692 Jun, Bipolar II disorder F31.81 ; Post-traumatic stress disorder , chronic F43.12 and Memory change R41.3 [place] [id number] [place] [address] 58156- 2492 Jun, Localized swelling, mass or lump of neck R22.1 ; Slow transit constipation K59.01 and Elevated blood pressure reading R03.0 [place] [id number] [place] [address] 05781- 5020 Jun, [place] [id number] [place] [address] 35709- 3152 Jun, Bipolar affective disorder, currently manic, mild F31.11 [facility] [place] [id number] [place] [address] 88934 -1640 15 May, 2017 [facility] [place] [id number] [place] [address] 25777 -4724 May, [place] [id number] [place] [address] 26799- 3310 May, Bipolar II disorder F31.81 ; Post-traumatic stress disorder , chronic F43.12 and Memory change R41.3 [place] [id number] [place] [address] 44388- 4125 May, [place] [id number] [place] [address] 46754- 0986 May, [place] [id number] [place] [address] 78583- 3676 May, Bipolar affective disorder, currently manic, mild F31.11 [place] [id number] [place] [address] 46365- 7746 May, [facility] [place] [id number] [place] [address] 68343 -6108 May, Localized swelling, mass or lump of neck R22.1 and Localized swelling, mass and lump, head R22.0 [place] [id number] [place] [address] 39279- 1520 Apr, [facility] [id number] [place] [address] 84726- 1261 Apr, Bipolar affective disorder, currently manic, mild F31.11 [facility] [id number] [place] [address] 48578- 9852 Apr, Bipolar II disorder F31.81 [facility] [address] 63593- 9005 Apr, [place] [address] 60337- 9893 Apr, Bipolar affective disorder, currently manic, mild F31.11 [place] [id number] [place] [address] 98376- 5067 Apr, Actinic keratosis L57.0 [place] [id number] [place] [address] 22136- 3909 Apr, Bipolar affective disorder, currently manic, mild F31.11 [place] [id number] [place] [address] 02074- 6989 Apr, [facility] [id number] [place] [address] 54335 -0325 Mar, Allergic contact dermatitis, unspecified trigger L23.9 and Right leg pain M79.604 [facility] [id number] [place] [address] 62299- 7610 Mar, [facility] [id number] [place] [address] 93069- 6674 Mar, Bipolar II disorder F31.81 ; Post-traumatic stress disorder , chronic F43.12 and Memory change R41.3 [facility] [id number] [place] [address] 38044- 0925 Mar, Actinic keratosis L57.0 [facility] [id number] [place] [address] 80136- 0535 Jan, Bipolar II disorder F31.81 ; Post-traumatic stress disorder , chronic F43.12 and Memory change R41.3 [facility] [address], [place] [address]- 3082 Jan, Bipolar affective disorder, currently manic, mild F31.11 [facility] [address], [place] [address]- 0316 13 Jan, 2017 Bipolar affective disorder, currently manic, mild F31.11 [facility] [id number] [place] [address] 25753- 5133 07 Jan, 2017 Bipolar II disorder F31.81 ; Post-traumatic stress disorder , chronic F43.12 and Memory change R41.3 [facility] [address], [place] [address]- 7310 Dec, Bipolar II disorder F31.81 ; Post-traumatic stress disorder , chronic F43.12 and Memory change R41.3 [facility] [address], [place] [address]- 6727 Dec, Bipolar affective disorder, currently manic, mild F31.11 [facility] [address], [place] [address]- 7173 Dec, Bipolar affective disorder, currently manic, mild F31.11 [facility] [address], [place] [address]- 6942 Dec, Post-traumatic stress disorder, chronic F43.12 [facility] [address], [place] [address]- 6242 Dec, Bipolar II disorder F31.81 ; Post-traumatic stress disorder , chronic F43.12 and Memory change R41.3 [facility] [address], [place] [address]- 7237 Dec, Post-traumatic stress disorder, chronic F43.12 [facility] [address], [place] [address]- 3127 Nov, [facility] [address], [place] [address]- 6686 Nov, Bipolar II disorder F31.81 ; Post-traumatic stress disorder , chronic F43.12 and Memory change R41.3 [facility] [address] [facility] [id number] [address]36 Nov, [facility] [address], [place] [address]- 1591 Nov, Post-traumatic stress disorder, chronic F43.12 and Bipolar II disorder F31.81 [facility] [id number] [address]- 3143 Nov, Actinic keratosis L57.0 [facility] [id number], [place] [address]- 5007 Oct, Bipolar II disorder F31.81 ; Post-traumatic stress disorder , chronic F43.12 and Memory change R41.3 [facility] [address], [place] [address]- 9005 Oct, Post-traumatic stress disorder, chronic F43.12 ; Bipolar II disorder F31.81 and Memory change R41.3 [facility] [address], [place] [address]- 7196 Oct, Bipolar II disorder F31.81 ; Post-traumatic stress disorder , chronic F43.12 and Memory change R41.3 [facility] [address], [place] [address]- 0984 Oct, Actinic keratosis L57.0 [facility] [id number], [place] [address]- 3144 September, Bipolar II disorder F31.81 ; Post-traumatic stress disorder , chronic F43.12 and Memory change R41.3 [facility] [id number] [address]- 6230 September, Bipolar II disorder F31.81 ; Post-traumatic stress disorder , chronic F43.12 and Memory change R41.3 [place] [address], [place] [address]- 2009 September, Post-traumatic stress disorder, chronic F43.12 ; Bipolar II disorder F31.81 and Memory change R41.3 [place] [id number] [place] [address] 80737- 3877 Jul, Bipolar II disorder F31.81 ; Post-traumatic stress disorder , chronic F43.12 and Memory change R41.3 [place] [id number] [place] [address] 02878- 0187 Jul, Bipolar II disorder F31.81 ; Post-traumatic stress disorder , chronic F43.12 and Memory change R41.3 [place] [address] [place] [address] 82085- 9902 Jul, Bipolar II disorder F31.81 ; Post-traumatic stress disorder , chronic F43.12 and Memory change R41.3 [place] [address] [place] [address] 03540- 8989 Jul, Post-traumatic stress disorder, chronic F43.12 ; Bipolar II disorder F31.81 and Memory change R41.3 [place] [address] [place] [address] 05601- 6423 Jul, Tear of medial meniscus of right knee, unspecified tear type , unspecified whether old or current tear, initial encounter S83.241A [place] [id number] [place] [address] 30175- 5081 Jul, Bipolar II disorder F31.81 ; Post-traumatic stress disorder , chronic F43.12 and Memory change R41.3 [place] [address] [place] [address] 35864- 5953 07 Jul, 2016 Shortness of breath R06.02 ; Mixed hyperlipidemia E78.2 and Chronic fatigue R53.82 [place] [id number] [place] [address] 81278- 7333 07 Jul, 2016 Bipolar II disorder F31.81 ; Post-traumatic stress disorder , chronic F43.12 and Memory change R41.3 [facility] [id number] [place] [address] 05873- 2943 02 Jul, 2016 [facility] [id number] [place] [address] 93847- 4490 Jun, Bipolar II disorder F31.81 ; Post-traumatic stress disorder , chronic F43.12 and Memory change R41.3 [facility] [id number] [place] [address] 06998- 4282 Jun, Post-traumatic stress disorder, chronic F43.12 ; Bipolar II disorder F31.81 and Memory change R41.3 [facility] [address] [place] [address] 67559- 6467 Jun, Right anterior knee pain M25.561 ; Shortness of breath R06.02 and Bronchiolitis J21.9 [facility] [id number] [place] [address] 83987- 1091 Jun, [facility] [id number] [place] [address] 55321- 3257 Jun, Bipolar II disorder F31.81 ; Post-traumatic stress disorder , chronic F43.12 and Memory change R41.3 [facility] [address] [place] [address] 33200- 4586 Jun, [facility] [id number] [place] [address] 94008- 2792 Jun, Bipolar II disorder F31.81 ; Post-traumatic stress disorder , chronic F43.12 and Memory change R41.3 [facility] [id number] [place] [address] 82663- 4349 May, [facility] [id number] [place] [address] 24410- 2707 May, [facility] [id number] [place] [address] 09262- 1157 May, [facility] [id number] [place] [address] 59286- 1951 May, Right anterior knee pain M25.561 ; Cough R05 ; Skin lesion of right arm L98.9 and Lesion of skin of face L98.9 [facility] [id number] [place] [address] 69297- 4756 May, [facility] [id number] [place] [address] 27591- 5870 May, Post-traumatic stress disorder, chronic F43.12 ; Memory change R41.3 and Bipolar I disorder, most recent episode manic F31.10 [facility] [id number] [place] [address] 35255- 0546 May, [facility] [id number] [place] [address] 85862- 1409 May, Right anterior knee pain M25.561 [facility] [id number] [place] [address] 85428- 6109 May, [facility] [id number] [place] [address] 98233- 3236 Apr, Bipolar II disorder F31.81 ; Post-traumatic stress disorder , chronic F43.12 and Memory change R41.3 [facility] [id number] [place] [address] 82111- 0465 Apr, Bipolar II disorder F31.81 ; Post-traumatic stress disorder , chronic F43.12 and Memory change R41.3 [facility] [id number] [place] [address] 67230- 1196 Apr, Post-traumatic stress disorder, chronic F43.12 ; Bipolar II disorder F31.81 and Memory change R41.3 [facility] [id number] [place] [address] 50378- 1416 Mar, Bipolar II disorder F31.81 ; Post-traumatic stress disorder , chronic F43.12 and Memory change R41.3 [place] [id number] [place] [address] 14728- 7977 Mar, Memory change R41.3 ; Confusion R41.0 and Dizziness R42 [place] [id number] [place] [address] 38010- 3799 05 Mar, 2016 Encounter for immunization Z23 ; Memory change R41.3 and Fatigue, unspecified type R53.83 [place] [id number] [place] [address] 53571- 4583 Mar, Bipolar II disorder F31.81 ; Post-traumatic stress disorder , chronic F43.12 and Memory change R41.3 [place] [id number] [place] [address] 20662- 5880 Jan, Bipolar II disorder F31.81 ; Post-traumatic stress disorder , chronic F43.12 and Memory change R41.3 [place] [id number] [place] [address] 59132- 0184 19 Feb, 2016 Post-traumatic stress disorder, chronic F43.12 ; Bipolar II disorder F31.81 ; Anxiety disorder, unspecified F41.9 and Memory change R41.3 [place] [id number] [place] [address] 91603- 1051 15 Feb, 2016 Bipolar II disorder F31.81 ; Post-traumatic stress disorder , chronic F43.12 and Memory change R41.3 [place] [address] [place] [address] 37163- 0152 Dec, Bipolar II disorder F31.81 ; Post-traumatic stress disorder , chronic F43.12 and Memory change R41.3 [place] [id number] [place] [address] 49704- 6329 16 Jan, 2016 Memory loss R41.3 [place] [id number] [place] [address] 40990- 0417 Dec, Bipolar II disorder F31.81 ; Post-traumatic stress disorder , chronic F43.12 and Memory change R41.3 [facility] [address]- 4367 Nov, Bipolar II disorder F31.81 and Post-traumatic stress disorder, chronic F43.12 [facility] [address]- 3088 Nov, Bipolar II disorder F31.81 ; Post-traumatic stress disorder , chronic F43.12 and Memory change R41.3 [facility] [address] [address]- 9182 Oct, Post-traumatic stress disorder, chronic F43.12 and Bipolar disorder, unspecified F31.9 [facility] [id number] [place] [address] 78732- 6297 Oct, Bipolar II disorder F31.81 ; Post-traumatic stress disorder , chronic F43.12 and Memory change R41.3 [facility] [address] [place] [address] [id number] Oct, Dental examination Z01.20 [facility] [id number] [place] [address] 56565- 8288 September, Bipolar II disorder F31.81 ; Post-traumatic stress disorder , chronic F43.12 and Memory change R41.3 [facility] [address] [address]- 5652 Aug, Bipolar II disorder F31.81 and Post-traumatic stress disorder, chronic F43.12 [facility] [address] [address]- 2072 Aug, Bipolar II disorder F31.81 and Post-traumatic stress disorder, chronic F43.12 [facility] [address] [address]- 2511 Jul, Bipolar II disorder F31.81 and Post-traumatic stress disorder, chronic F43.12 [facility] [id number] [place] [address] 17203- 1112 16 Jul, 2015 [facility] [id number] [place] [address] 362232- 3547 Jul, [facility] [id number] [place] [address] 090 Jul, Post-traumatic stress disorder, chronic F43.12 and Bipolar disorder, unspecified F31.9 [facility] [address] [place] [address] Jun, Bipolar II disorder F31.81 and Post-traumatic stress disorder, chronic F43.12 [place] [address] 340 Jun, Post-traumatic stress disorder, chronic F43.12 and Bipolar disorder, unspecified F31.9 [facility] [address] [address] Jun, [facility] [address] [id number] Jun, Pharyngeal dysphagia R13.13 ; Hoarseness R49.0 and Cough R05 [facility] [id number] [place] [address]- [address] Jun, Post-traumatic stress disorder, chronic F43.12 and Bipolar disorder, unspecified F31.9 [facility] [id number] [place] [address] [id number] [id number] May, Cough R05 [facility] [id number] [place] [address]- 6682 May, Post-traumatic stress disorder, chronic F43.12 and Bipolar disorder, unspecified F31.9 [facility] [id number] [place], [place] [address] May, Cough R05 [facility] [id number] [place] [address]- [address]696 May, [facility] [id number] [place] [address] [id number] 16 May, 2015 Dental examination Z01.20 [facility] [id number] [place] [address] 37[address]- 4884 15 May, 2015 Bipolar II disorder F31.81 and Post-traumatic stress disorder, chronic F43.12 [facility] [id number] [place] [address]- 8523 14 May, 2015 [facility] [address] [address] 14 May, 2015 Bipolar II disorder F31.81 and Anxiety disorder, unspecified F41.9 [place] [address] [address]- [address] May, Memory change R41.3 and History of renal insufficiency syndrome Z87.448 [place] [address] [place] [id number] [place] [address] 14308- [address]126 03 May, 2015 Memory change R41.3 ; Dry mouth R68.2 and History of renal insufficiency syndrome Z87.448 [facility] [address] [place] [id number] [place] [address] 56892- 5711 May, Bipolar II disorder F31.81 and Post-traumatic stress disorder, chronic F43.12 [facility] [address] [place] [address] [id number] [place] [address] 64492- 5594 Mar, Bipolar disorder, unspecified F31.9 and Generalized anxiety disorder F41.1 [facility] [address] [place] [address] [id number] [place] [address] 70834- 7089 Mar, Bipolar II disorder F31.81 [facility] [address] [place] [id number] [place] [address] 97384- 3320 Mar, Encounter for immunization Z23 [facility] [address] [place] [address] [id number] [place] [address] 87198- 2578 Mar, [facility] [address] [address]- 8494 Mar, Bipolar II disorder F31.81 [facility] [address] [address] Mar, [facility] [id number] [place] [address] 24254- 2016 Jan, Bipolar disorder, unspecified 296.80 and Anxiety disorder 300.00 [facility] [address] [place] [address] [id number] [place] [address] 45831- 6557 Jan, [facility] [id number] [place] [address] 94277- 0743 Jan, Bipolar disorder, unspecified 296.80 and Anxiety disorder 300.00 [facility] [address] [place] [id number] [place] [address] 008481- 1732 Dec, Bipolar disorder, unspecified 296.80 and Anxiety disorder 300.00 [facility] [address] [place] [address] [id number] [place] [address] 93434- 6754 Dec, [facility] [address] [place] [address] [id number] [place] [address] 03678- 7946 Dec, Bipolar disorder, unspecified 296.80 and Anxiety disorder 300.00 [facility] [address] [place] [address] [id number] [place] [address] 973956- 8459 Nov, Bipolar disorder, unspecified 296.80 and Anxiety disorder 300.00 [facility] [address] [address] 8705 Oct, Bipolar disorder, unspecified 296.80 and Anxiety disorder 300.00 [facility] [id number] [place] [address] [id number]- 7304 Oct, Anxiety 300.00 and Bipolar disorder, unspecified 296.80 [facility] [id number] [place] [address] 571227- 9396 September, Bipolar disorder, unspecified 296.80 and Anxiety disorder 300.00 [facility] [id number] [place] [address] [id number]- 2462 September, [facility] [place] [facility] [address] [id number] [place] [address] 3942 Aug, Cough 786.2 [facility] [place] [facility] [address] [id number] [place] [address]- 2679 Aug, [facility] [place] [facility] [address] [id number] [place] [address]- 7844 Aug, [facility] [place] [facility] [address] [id number] [place] [address]- 9011 Jul, [facility] [place] [facility] [address] [id number] [place] [address]- 2824 Jul, [facility] [place] [facility] [address] [id number] [place] [address]- 5575 Jul, [facility] [place] [facility] [address] [id number] [place] [address]- 6338 Jul, [facility] [place] [facility] [address] [id number] [place] [address]- 8590 Jul, [facility] [place] [facility] [address] [id number] [place] [address]- 0024 Jul, [facility] [place] [facility] [address] [id number] [place] [address]- 9760 Jun, [facility] [place] [facility] [address] [id number] [place] [address]- 4370 Jun, [facility] [place] [facility] [address] [id number] [place] [address]- 3813 Jun, [facility] [place] [facility] [address] [id number] [place] [address]- 9916 Jun, [facility] [place] [facility] [address] [id number] [place] [address]- 6778 May, [facility] [place] [facility] [address] [id number] [place] [address]- 6524 May, [facility] [place] [facility] [address] [id number] [place] [address]- 2327 May, [facility] [place] [facility] [address] [id number] [place] [address]- 1804 May, [facility] [place] [facility] [address] [id number] [place] [address] Apr, [facility] [place] [facility] [address] [id number] [place] [address]- 5009 Apr, [facility] [place] [facility] [address] [id number] [place] [address]- 0937 Mar, [facility] [place] [facility] [address] [id number] [place] 3343 Mar, [facility] [place] [facility] [address] [id number] [place] [address]- 4502 Mar, [facility] [place] [facility] [address] [id number] [place] [address]- 0409 Mar, [facility] [place] [facility] [address] [id number] [place] [address]- 8862 Mar, [facility] [place] [facility] [address] [id number] [place] [address]- 0652 Mar, [facility] [place] [facility] [address] [id number] [place] [address]- 1836 Jan, [facility] [place] [facility] [address] [id number] [place] [address]- 5733 Jan, 2013 [facility] [place] [facility] [address] [id number] [place] [address]- 6996 05 Sep, 2013 [facility] [place] [facility] [address] [id number] [place] [address]- 5757 05 Sep, 2013 [facility] [place] [facility] [address] [id number] [place] [address]- 0915 Jan, 2013 [facility] [place] [facility] [address] [id number] [place] [address]- 0003 Jan, [facility] [place] [facility] [address] [id number] [place] [address]- 1735 Dec, [facility] [place] [facility] [address] [id number] [place] [address]- 2962 Dec, [facility] [place] [facility] [address] [id number] [place] 4345 Dec, [facility] [place] [facility] [address] [id number] [place] [address]- 7636 Dec, [facility] [place] [facility] [address] [id number] [place] [address]- 3942 Dec, [facility] [place] [facility] [address] [id number] [place] [address]- 5274 Dec, [facility] [place] [facility] [address] [id number] [place] [address]- 8435 Nov, [facility] [place] [facility] [address] [id number] [place] [address]- 2043 Nov, [facility] [place] [facility] [address] [id number] [place] [address]- 5863 Nov, [facility] [place] [facility] [address] [id number] [place] [address]- 1389 Nov, [facility] [place] [facility] [address] [id number] [place] [address]- 5860 Nov, [facility] [place] [facility] [address] [id number] [place] [address]- 1094 Nov, [facility] [place] [facility] [address] [id number] [place] [address]- 4950 Nov, [facility] [place] [facility] [address] [id number] [place] [address]- 4201 Nov, [facility] [place] [facility] [address] [id number] [place] [address]- 0755 Nov, [facility] [place] [facility] [address] [id number], [place] [address]- 2156 Nov, [facility] [address] [id number] [place] [address]- 5058 September, [facility] [place] [facility] [address] [id number] [place] [address]- 2525 September, [facility] [address] [id number] [place] [address]- 9622 September, [facility] [place] [facility] [address] [id number] [place] [address]- 5672 September, [facility] [address] [id number] [place] [address]- 2139 September, [facility] [place] [facility] [address] [id number] [place] [address]- 2418 September, [facility] [address] [id number] [place] [address]- 8556 September, [facility] [place] [facility] [address] [id number] [place] [address]- 1228 September, [facility] [address] [id number] [place] [address]- 3812 Aug, [facility] [place] [facility] [address] [id number] [place] [address]- 4263 Aug, [facility] [place] [facility] [address] [id number] [place] [address]- 9572 Aug, [facility] [place] [facility] [address] [id number] [place] [address]- 2183 Aug, [facility] [place] [facility] [address] [id number] [place] [address]- 5590 Jul, [facility] [place] [facility] [address] [id number] [place] [address]- 1022 Jul, [facility] [place] [facility] [address] [id number] [place] [address]- 2886 Jul, [facility] [place] [facility] [address] [id number] [place] [address]- 0470 Jul, [facility] [place] [facility] [address] [id number] [place] [address]- 1336 Jul, [facility] [place] [facility] [address] [id number] [place] [address]- 0246 Jul, [facility] [place] [facility] [address] [id number] [place] [address]- 1306 Jul, [facility] [place] [facility] [address] [id number] [place] [address]- 6794 Jul, [facility] [place] [facility] [address] [id number] [place] [address]- 8606 Jul, [facility] [place] [facility] [address] [id number] [place] [address]- 8342 Jul, [facility] [place] [facility] [address] [id number] [place] [address]- 5553 Jul, [facility] [place] [facility] [address] [id number] [place] [address]- 0085 Jun, [facility] [place] [facility] [address] [id number] [place] [address]- 8434 Jun, [facility] [place] [facility] [address] [id number] [place] [address]- 6289 Jun, [facility] [place] [facility] [address] [id number] [place] [address]- 1128 Jun, [facility] [place] [facility] [address] [id number] [place] [address]- 3503 May, [facility] [place] [facility] [address] [id number] [place] [address]- 6551 May, [facility] [place] [facility] [address] [id number] [place] [address]- 5221 Apr, [facility] [place] [facility] [address] [id number], [place] [address]- 7236 Apr, [facility] [place] [facility] [address] [id number] [place] [address]- 8729 Apr, [facility] [place] [facility] [address] [id number], [place] [address]- 6458 Apr, [facility] [place] [facility] [address] [id number] [place] [address]- 0852 Apr, [facility] [place] [facility] [address] [id number] [place] [address]- 1387 Apr, [facility] [place] [facility] [address] [id number] [place] [address]- 6143 Apr, [facility] [place] [facility] [address] [id number] [place] [address]- 3685 Apr, [facility] [place] [facility] [address] [id number], [place] [address]- 7206 Apr, [facility] [place] [facility] [address] [id number], [place] [address]- 1445 Apr, [facility] [place] [facility] [address] [id number] [place] [address]- 6574 Apr, [facility] [place] [facility] [address] [id number] [place] [address]- 9635 Apr, [facility] [place] [facility] [address] [id number], [place] [address]- 6506 Mar, [facility] [place] [facility] [address] [id number], [place] [address]- 4839 Mar, [facility] [place] [facility] [address] [id number], [place] [address]- 8094 Mar, [facility] [place] [facility] [address] [id number], [place] [address]- 8201 Dec, [facility] [place] [facility] [address] [id number], [place] [address]- 1505 Dec, [facility] [place] [facility] [address] [facility] [id number] [place] [address]- 2436 Dec, [facility] [address] [facility] [id number], [place] [address]- 1821 Oct, [facility] [address] [facility] [id number], [place] [address]- 8710 May, [facility] [address] [facility] [id number], [place] [address]- 0722 May, [facility] [address] [facility] [id number], [place] [address]- 0710 May, [facility] [address] [facility] [id number] [address]302 Dec, IMMUNIZATIONS No Known Immunizations SOCIAL HISTORY Never Assessed REASON FOR VISIT f/u PLAN OF CARE Activity Details Follow Up 2 Weeks Reason: VITAL SIGNS MEDICATIONS Unknown Medications RESULTS No Results PROCEDURES Procedure Date Ordered Result Body Site [facility] VISIT MENTAL [facility]ALTH ESTAB PT August 21, 2017 Psychotherapy, patient &/family, 45 minutes, established patient August 21, 2017 INSTRUCTIONS MEDICATIONS ADMINISTERED No Known Medications MEDICAL (GENERAL) HISTORY Type Description Date Medical History Renal insuficiency Medical History Symptomatic menopausal Medical History PTSD Medical History Bipolar Medical History Mitral Valve prolapse Medical History mixed hyperlipidemia Medical History COPD- Dr. Pollock Medical History Dementia Surgical History Stimulator 07-18-15 Surgical History Disectomy 1991 Surgical History Breast Reduction 1998 Surgical History Left hand carpal surgery 1992 Surgical History Hysterectomy 05/02 Surgical History Hysterectomy 04/16/10 Surgical History Bladder lift 04/16/10 Surgical History Gall Bladder Surgical History Tubalization Hospitalization History [facility] 12/2014 Hospitalization History Obstructive Airway Disease, Mood disorder, cough-[facility] 07/02/15 Hospitalization History Bronchitis- [facility] 06/2016
--- OUTSIDE RECORDS SUMMARY | 2018-02-03 08:48 | XMS REPORT ---
Author Author MARYSOL CANSECO [facility] Address [address] [place] [address] Care Team Providers Care Selling Manager Name Role Phone MARYSOL CANSECO Unavailable PROBLEMS Type Condition ICD9-CM Code UZO29-TM Code Onset Dates Condition Status SNOMED Code Problem Mixed hyperlipidemia E78.2 Active 921125119 Problem Bipolar affective disorder, currently manic, mild F31.11 Active 774248246 Problem Chronic fatigue R53.82 Active 16022391 Problem COPD exacerbation J44.1 Active 775075163 Problem Other chronic pain G89.29 Active 62518606 Problem Chronic obstructive pulmonary disease, unspecified COPD type J44.9 Active 67392649 Problem Slow transit constipation K59.01 Active 49329514 Problem Bipolar disorder, in partial remission, most recent episode mixed F31.77 Active 52239307 Problem Bipolar disorder, current episode mixed, mild F31.61 Active 442193507 Problem Bipolar II disorder F31.81 Active 66335638 Problem History of renal insufficiency syndrome Z87.448 Active 154974108 Problem Pharyngeal dysphagia R13.13 Active [id number] Problem Post-traumatic stress disorder, chronic F43.12 Active 74403847 Problem Confusion R41.0 Active 233080893 Problem Memory change R41.3 Active 133486456 Problem Dizziness R42 Active 581754478 ALLERGIES No Information ENCOUNTERS Encounter Location Date Diagnosis [facility] [id number] [address] Jan, [facility] [address] [place] [address] 10405- 0929 Dec, [facility] [address], [place] [address] Dec, [facility] [address] [place] [address] 10384- 7260 Nov, [facility] [address], [place] [address] Nov, [facility] [id number] [place] [address] 76630- 4336 Nov, [facility] [address] [place] [address] 63397- 1331 Oct, Bipolar disorder, in partial remission, most recent episode mixed F31.77 [facility] [address] [address] Oct, Scabies B86 [facility] [id number] [place] [address] 87645- 7994 Oct, Bipolar disorder, in partial remission, most recent episode mixed F31.77 [facility] [address] [place] [address] 41742- 3974 Oct, [facility] [id number] [place] [address] 61976- 4874 Oct, Bipolar II disorder F31.81 and Post-traumatic stress disorder, chronic F43.12 [facility] [address] [place] [address] 74728 -0338 Oct, Scabies B86 [facility] [address], [place] [address] 5[address] Oct, [facility] [address] [place] [address] 12120- 7033 September, Bipolar II disorder F31.81 and Post-traumatic stress disorder, chronic F43.12 [facility] [address] [place] [address] 76801- 1079 September, Bipolar disorder, in partial remission, most recent episode mixed F31.77 [facility] [address], [place] [address] September, COPD exacerbation J44.1 and Elevated blood pressure reading R03.0 [facility] [id number] [place] [address] 85501- 9507 September, [facility] [address] [address]30- 9040 September, Pain in left ankle and joints of left foot M25.572 ; Dermatitis L30.9 and Other chronic pain G89.29 [facility] [address] 67023- 7273 Aug, Right elbow pain M25.521 and Elevated blood pressure reading R03.0 [facility] [address] 86613- 9579 Aug, Bipolar disorder, current episode mixed, mild F31.61 and BMI 40.0-44.9, adult Z68.41 [facility] [address] 52690- 0403 Aug, [facility] [address] 48107- 5001 Aug, Bipolar II disorder F31.81 and Post-traumatic stress disorder, chronic F43.12 [facility] [address] 73273- 4171 Jul, Elevated blood pressure reading R03.0 [facility] [id number] [place] [address] 34512- 8088 Jul, Bipolar II disorder F31.81 and Post-traumatic stress disorder, chronic F43.12 [facility] [id number] [place] [address] 69529- 8737 Jul, Bipolar disorder, current episode mixed, mild F31.61 [facility] [id number] [place] [address] 77152 -9939 Jul, Right foot pain M79.671 ; Allergic contact dermatitis, unspecified trigger L23.9 ; Contusion of right foot, initial encounter S90.31XA and BMI 40.0-44.9, adult Z68.41 [facility] [address] [address] 02 Jul, 2017 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 [facility] [address] [place] [address] 35480- 6665 22 Jul, 2017 [facility] [id number] [place] [address] 19704- 5806 15 Jul, 2017 Bipolar disorder, current episode mixed, mild F31.61 [facility] [address] [place] [address] 82612- 0686 15 Jul, 2017 Bipolar II disorder F31.81 ; Post-traumatic stress disorder , chronic F43.12 and Memory change R41.3 [facility] [id number] [place] [address] 32094- 3502 14 Jul, 2017 Elevated blood pressure reading R03.0 ; Chronic obstructive pulmonary disease, unspecified COPD type J44.9 ; Long-term use of high-risk medication Z79.899 and Cognitive decline R41.89 [facility] [address] [place] [address] 56538- 5932 06 Jul, 2017 Elevated blood pressure reading R03.0 [facility] [address] [place] [address] 17544- 4367 05 Jul, 2017 [facility] [address] [place] [address] 77650- 4903 01 Jul, 2017 Bipolar II disorder F31.81 ; Post-traumatic stress disorder , chronic F43.12 and Memory change R41.3 [facility] [address] [address] 6[address] Jun, [facility] [id number] [place] [address] 39765- 0094 Jun, Bipolar II disorder F31.81 ; Post-traumatic stress disorder , chronic F43.12 and Memory change R41.3 [facility] [id number] [place] [address] 79133- 3299 Jun, Localized swelling, mass or lump of neck R22.1 ; Slow transit constipation K59.01 and Elevated blood pressure reading R03.0 [facility] [address] [place] [address] 09665- 2740 Jun, [facility] [id number] [place] [address] 49373- 1250 Jun, Bipolar affective disorder, currently manic, mild F31.11 [facility] [id number] [place] [address] 86121 -6398 May, [facility] [place] [id number] [place] [address] 41337 -7018 14 May, 2017 [facility] [id number] [place] [address] 88378- 3647 13 May, 2017 Bipolar II disorder F31.81 ; Post-traumatic stress disorder , chronic F43.12 and Memory change R41.3 [facility] [id number] [place] [address] 21512- 0202 May, [facility] [id number] [place] [address] 34265- 4619 May, [facility] [id number] [place] [address] 60193- 4079 May, Bipolar affective disorder, currently manic, mild F31.11 [facility] [id number] [place] [address] 95632- 7547 May, [facility] [address] [place] [address] 05047 -8597 May, Localized swelling, mass or lump of neck R22.1 and Localized swelling, mass and lump, head R22.0 [facility] [address] [place] [address] 90616- 2293 Apr, [facility] [id number] [place] [address] 75090- 1538 Apr, Bipolar affective disorder, currently manic, mild F31.11 [facility] [address] [place] [address] 72745- 3491 Apr, Bipolar II disorder F31.81 [facility] [address] [place] [address] 83869- 4158 Apr, [facility] [id number] [place] [address] 055268- 6656 Apr, Bipolar affective disorder, currently manic, mild F31.11 [facility] [id number] [place] [address] 28369- 4725 Apr, Actinic keratosis L57.0 [facility] [id number] [place] [address] 15475- 5846 Apr, Bipolar affective disorder, currently manic, mild F31.11 [facility] [id number] [place] [address] 52789- 6937 Apr, [facility] [id number] [place] [address] 79758 -6603 Mar, Allergic contact dermatitis, unspecified trigger L23.9 and Right leg pain M79.604 [facility] [address] [place] [address] 71834- 1506 Mar, [facility] [id number] [place] [address] 94512- 4649 Mar, Bipolar II disorder F31.81 ; Post-traumatic stress disorder , chronic F43.12 and Memory change R41.3 [facility] [id number] [place] [address] 79771- 8363 Mar, Actinic keratosis L57.0 [facility] [address] [place] [address] 49331- 1410 Jan, Bipolar II disorder F31.81 ; Post-traumatic stress disorder , chronic F43.12 and Memory change R41.3 [facility] [address], [place] [address]- 4393 28 Jan, 2017 Bipolar affective disorder, currently manic, mild F31.11 [facility] [address] [place] [address] 87425- 5706 13 Jan, 2017 Bipolar affective disorder, currently manic, mild F31.11 [facility] [id number] [place] [address] 02234- 4562 07 Jan, 2017 Bipolar II disorder F31.81 ; Post-traumatic stress disorder , chronic F43.12 and Memory change R41.3 [facility] [address] [place] [address] 34801- 3961 Dec, Bipolar II disorder F31.81 ; Post-traumatic stress disorder , chronic F43.12 and Memory change R41.3 [facility] [id number] [place] [address] 40901- 9904 Dec, Bipolar affective disorder, currently manic, mild F31.11 [facility] [address] [place] [address] 91920- 5311 Dec, Bipolar affective disorder, currently manic, mild F31.11 [facility] [address] [place] [address] 80603- 2466 Dec, Post-traumatic stress disorder, chronic F43.12 [facility] [address] [place] [address] 77841- 6918 Dec, Bipolar II disorder F31.81 ; Post-traumatic stress disorder , chronic F43.12 and Memory change R41.3 [facility] [address] [place] [address] 00237- 4631 Dec, Post-traumatic stress disorder, chronic F43.12 [facility] [address], [place] [address]- 6012 Nov, [facility] [id number] [place] [address] 35422- 0516 Nov, Bipolar II disorder F31.81 ; Post-traumatic stress disorder , chronic F43.12 and Memory change R41.3 [facility] [address] [address]- 9128 Nov, [facility] [id number] [place] [address] 38884- 3712 Nov, Post-traumatic stress disorder, chronic F43.12 and Bipolar II disorder F31.81 [facility] [id number] [place] [address] 77224- 1686 Nov, Actinic keratosis L57.0 [facility] [id number] [place] [address] 28454- 8416 Oct, Bipolar II disorder F31.81 ; Post-traumatic stress disorder , chronic F43.12 and Memory change R41.3 [facility] [id number] [place] [address] 80851- 7918 Oct, Post-traumatic stress disorder, chronic F43.12 ; Bipolar II disorder F31.81 and Memory change R41.3 [facility] [address] [place] [address] 24770- 3945 Oct, Bipolar II disorder F31.81 ; Post-traumatic stress disorder , chronic F43.12 and Memory change R41.3 [facility] [address], [place] [address]- 9246 Oct, Actinic keratosis L57.0 [facility] [address] [place] [address] 00640- 0987 September, Bipolar II disorder F31.81 ; Post-traumatic stress disorder , chronic F43.12 and Memory change R41.3 [facility] [address] [place] [address] 83752- 8546 September, Bipolar II disorder F31.81 ; Post-traumatic stress disorder , chronic F43.12 and Memory change R41.3 [facility] [id number] [place] [address] 30746- 8278 September, Post-traumatic stress disorder, chronic F43.12 ; Bipolar II disorder F31.81 and Memory change R41.3 [facility] [address] [place], [place] [address]- [address] Jul, Bipolar II disorder F31.81 ; Post-traumatic stress disorder , chronic F43.12 and Memory change R41.3 [facility] [id number] [place] [address] 5419 Jul, Bipolar II disorder F31.81 ; Post-traumatic stress disorder , chronic F43.12 and Memory change R41.3 [facility] [id number] [place] [address]- 4742 Jul, Bipolar II disorder F31.81 ; Post-traumatic stress disorder , chronic F43.12 and Memory change R41.3 [facility] [id number] [place] [address] 01065- 1308 Jul, Post-traumatic stress disorder, chronic F43.12 ; Bipolar II disorder F31.81 and Memory change R41.3 [facility] [id number] [place] [address] 37853- 8976 Jul, Tear of medial meniscus of right knee, unspecified tear type , unspecified whether old or current tear, initial encounter S83.241A [facility] [address] [place] [address] 76092- 9009 Jul, Bipolar II disorder F31.81 ; Post-traumatic stress disorder , chronic F43.12 and Memory change R41.3 [facility] [address] [place] [address] 67506- 5202 Jul, Shortness of breath R06.02 ; Mixed hyperlipidemia E78.2 and Chronic fatigue R53.82 [facility] [address] [place] [address] 44090- 9139 07 Jul, 2016 Bipolar II disorder F31.81 ; Post-traumatic stress disorder , chronic F43.12 and Memory change R41.3 [facility] [address], [place] [address]- 1985 Jul, [facility] [id number] [place] [address] 40594203- 8836 Jun, Bipolar II disorder F31.81 ; Post-traumatic stress disorder , chronic F43.12 and Memory change R41.3 [facility] [id number] [place] [address] 65315- 3139 Jun, Post-traumatic stress disorder, chronic F43.12 ; Bipolar II disorder F31.81 and Memory change R41.3 [facility] [address] [place] [address] 55121- 1571 Jun, Right anterior knee pain M25.561 ; Shortness of breath R06.02 and Bronchiolitis J21.9 [facility] [id number] [place] [address] 07254- 3546 Jun, [facility] [address] [place] [address] 16935- 0195 Jun, Bipolar II disorder F31.81 ; Post-traumatic stress disorder , chronic F43.12 and Memory change R41.3 [facility] [address] [address]- 8344 Jun, [facility] [address], [place] [address]- 2982 Jun, Bipolar II disorder F31.81 ; Post-traumatic stress disorder , chronic F43.12 and Memory change R41.3 [facility] [address], [place] [address]- 9966 May, [facility] [id number] [place] [address] 53907609- 7686 May, [facility] [address], [place] [address]- 1131 May, [facility] [id number] [place] [address] 74001- 2472 May, Right anterior knee pain M25.561 ; Cough R05 ; Skin lesion of right arm L98.9 and Lesion of skin of face L98.9 [facility] [address] [place] [address] 19736- 1875 May, [facility] [id number] [place] [address] 05169- 0609 May, Post-traumatic stress disorder, chronic F43.12 ; Memory change R41.3 and Bipolar I disorder, most recent episode manic F31.10 [facility] [id number] [place] [address] 35564- 6992 May, [facility] [id number] [place] [address] 42262- 3963 May, Right anterior knee pain M25.561 [facility] [id number] [place] [address] 72777- 0746 May, [facility] [id number] [place] [address] 31560- 9327 Apr, Bipolar II disorder F31.81 ; Post-traumatic stress disorder , chronic F43.12 and Memory change R41.3 [facility] [address] [place] [address] 59029- 2612 Apr, Bipolar II disorder F31.81 ; Post-traumatic stress disorder , chronic F43.12 and Memory change R41.3 [facility] [address] [place] [address] 69259- 0945 Apr, Post-traumatic stress disorder, chronic F43.12 ; Bipolar II disorder F31.81 and Memory change R41.3 [facility] [id number] [place] [address] 47262- 1872 Mar, Bipolar II disorder F31.81 ; Post-traumatic stress disorder , chronic F43.12 and Memory change R41.3 [facility] [id number] [place] [address] 42343- 8976 Mar, Memory change R41.3 ; Confusion R41.0 and Dizziness R42 [facility] [id number] [place] [address] 18629- 4758 05 Mar, 2016 Encounter for immunization Z23 ; Memory change R41.3 and Fatigue, unspecified type R53.83 [facility] [address] [place] [address] 36537- 2205 Mar, Bipolar II disorder F31.81 ; Post-traumatic stress disorder , chronic F43.12 and Memory change R41.3 [facility] [id number] [place] [address] 28148- 9130 Jan, Bipolar II disorder F31.81 ; Post-traumatic stress disorder , chronic F43.12 and Memory change R41.3 [facility] [id number] [place] [address] 59769- 9548 Jan, Post-traumatic stress disorder, chronic F43.12 ; Bipolar II disorder F31.81 ; Anxiety disorder, unspecified F41.9 and Memory change R41.3 [facility] [id number] [place] [address] 95754- 0237 15 Feb, 2016 Bipolar II disorder F31.81 ; Post-traumatic stress disorder , chronic F43.12 and Memory change R41.3 [facility] [address] [place] [address] 05008- 9836 Dec, Bipolar II disorder F31.81 ; Post-traumatic stress disorder , chronic F43.12 and Memory change R41.3 [facility] [address] [place] [address] 27859- 9012 Dec, Memory loss R41.3 [facility] [address] [place] [address] 54427- 0713 Dec, Bipolar II disorder F31.81 ; Post-traumatic stress disorder , chronic F43.12 and Memory change R41.3 [facility] [id number] [place] [address] 26612- 2011 Nov, Bipolar II disorder F31.81 and Post-traumatic stress disorder, chronic F43.12 [facility] [address] [place] [address] 68882- 1342 Nov, Bipolar II disorder F31.81 ; Post-traumatic stress disorder , chronic F43.12 and Memory change R41.3 [facility] [id number] [place] [address] 04544- 0714 Oct, Post-traumatic stress disorder, chronic F43.12 and Bipolar disorder, unspecified F31.9 [facility] [id number] [place] [address] 38650- 0211 Oct, Bipolar II disorder F31.81 ; Post-traumatic stress disorder , chronic F43.12 and Memory change R41.3 [facility] [address] [place] [address] [id number] Oct, Dental examination Z01.20 [facility] [id number] [place] [address] 83739- 1776 September, Bipolar II disorder F31.81 ; Post-traumatic stress disorder , chronic F43.12 and Memory change R41.3 [facility] [address] [place] [address] 17261- 3965 Aug, Bipolar II disorder F31.81 and Post-traumatic stress disorder, chronic F43.12 [facility] [address] [place] [address] 71609- 9541 Aug, Bipolar II disorder F31.81 and Post-traumatic stress disorder, chronic F43.12 [facility] [address] [place] [address] 94923- 8765 Jul, Bipolar II disorder F31.81 and Post-traumatic stress disorder, chronic F43.12 [facility] [address] [place] [address] 14341- 8426 Jul, [facility] [id number] [place] [address] 76152- 9043 15 Jul, 2015 [facility] [id number] [place] [address] 85874- 1527 Jul, Post-traumatic stress disorder, chronic F43.12 and Bipolar disorder, unspecified F31.9 [facility] [id number] [place] [address] 23504- 8656 Jun, Bipolar II disorder F31.81 and Post-traumatic stress disorder, chronic F43.12 [facility] [id number] [place] [address] 63811- 4971 Jun, Post-traumatic stress disorder, chronic F43.12 and Bipolar disorder, unspecified F31.9 [facility] [id number] [place] [address] 384123- 6276 Jun, [facility] [id number] [place] [address] 636665- 3353 Jun, Pharyngeal dysphagia R13.13 ; Hoarseness R49.0 and Cough R05 [facility] [id number] [place] [address] 83216- 4068 Jun, Post-traumatic stress disorder, chronic F43.12 and Bipolar disorder, unspecified F31.9 [facility] [address] [place] [address] 11732- 1353 May, Cough R05 [facility] [id number] [place] [address] 57658- 1487 May, Post-traumatic stress disorder, chronic F43.12 and Bipolar disorder, unspecified F31.9 [facility] [id number] [place] [address] [phone] May, Cough R05 [facility] [id number] [place] [address] [phone] [phone] May, [facility] [id number] [place] [address] [id number] May, Dental examination Z01.20 [facility] [id number] [place] [address] [id number] [id number] 15 May, 2015 Bipolar II disorder F31.81 and Post-traumatic stress disorder, chronic F43.12 [facility] [id number] [place] [place] [address] 03923- 3410 May, [place] [address] [id number] [place] [address] 58884- 5261 May, Bipolar II disorder F31.81 and Anxiety disorder, unspecified F41.9 [place] [id number] [place] [address] 58148- 4193 May, Memory change R41.3 and History of renal insufficiency syndrome Z87.448 [place] [id number] [place] [address] 71467- 6928 May, Memory change R41.3 ; Dry mouth R68.2 and History of renal insufficiency syndrome Z87.448 [place] [id number] [place] [address] 90829- 2292 May, Bipolar II disorder F31.81 and Post-traumatic stress disorder, chronic F43.12 [place] [id number] [place] [address] 94303- 5050 Mar, Bipolar disorder, unspecified F31.9 and Generalized anxiety disorder F41.1 [place] [id number] [place] [address] 86048- 2957 Mar, Bipolar II disorder F31.81 [place] [id number] [place] [address] 27234- 8223 Mar, Encounter for immunization Z23 [place] [address] 90434- 4955 Mar, [place] [id number] [place] [address] 62444- 7911 Mar, Bipolar II disorder F31.81 [place] [address] 80744- 1736 Mar, [facility] [address] [address] 28[address] Jan, Bipolar disorder, unspecified 296.80 and Anxiety disorder 300.00 [facility] [id number] [place] [address] 15491- 3876 Jan, [facility] [id number] [place] [address] 82173- 2364 Jan, Bipolar disorder, unspecified 296.80 and Anxiety disorder 300.00 [facility] [id number] [place] [address] 18727- 4073 Dec, Bipolar disorder, unspecified 296.80 and Anxiety disorder 300.00 [facility] [id number] [place] [address] 73087- 5964 Dec, [facility] [id number] [place] [address] 045186- 7210 Dec, Bipolar disorder, unspecified 296.80 and Anxiety disorder 300.00 [facility] [id number] [place] [address] 426104- 8008 Nov, Bipolar disorder, unspecified 296.80 and Anxiety disorder 300.00 [facility] [id number] [place] [address] 23037- 9337 Oct, Bipolar disorder, unspecified 296.80 and Anxiety disorder 300.00 [facility] [id number] [place] [address] 678734- 9912 Oct, Anxiety 300.00 and Bipolar disorder, unspecified 296.80 [facility] [id number] [place] [address] 80808- 1486 September, Bipolar disorder, unspecified 296.80 and Anxiety disorder 300.00 [facility] [id number] [place] [address] 15211- 5176 September, [facility] [id number] [place] [address] 864204- 5040 Aug, Cough 786.2 [facility] [place] [facility] [address] [id number] [place] [address]- 8877 Aug, [facility] [place] [facility] [address] [id number] [place] [address]- 0606 Aug, [facility] [place] [facility] [address] [id number] [place] [address]- 4646 Jul, [facility] [place] [facility] [address] [id number] [place] 7987 Jul, [facility] [place] [facility] [address] [id number] [place] [address]- 6684 Jul, [facility] [place] [facility] [address] [id number] [place] [address]- 3731 Jul, [facility] [place] [facility] [address] [id number] [place] [address]- 2319 Jul, [facility] [place] [facility] [address] [id number] [place] [address]- 2957 Jul, [facility] [place] [facility] [address] [id number] [place] [address]- 6026 Jun, [facility] [place] [facility] [address] [id number] [place] [address]- 1239 Jun, [facility] [place] [facility] [address] [id number] [place] [address]- 4938 Jun, [facility] [place] [facility] [address] [id number] [place] [address]- 6768 Jun, [facility] [place] [facility] [address] [id number] [place] [address]- 9429 May, [facility] [place] [facility] [address] [id number] [place] [address]- 8209 May, [facility] [place] [facility] [address] [facility] [id number] [place] [address]- 0635 May, [facility] [place] [facility] [address] [id number] [place] [address]- 1809 May, [facility] [place] [facility] [address] [id number] [place] [address]- 3070 Apr, [facility] [place] [facility] [address] [id number] [place] 4090 Apr, [facility] [place] [facility] [address] [id number] [place] [address]- 9431 Mar, [facility] [place] [facility] [address] [id number] [place] [address]- 4774 Mar, [facility] [place] [facility] [address] [id number] [place] [address]- 1855 Mar, [facility] [place] [facility] [address] [id number] [place] [address]- 7415 Mar, [facility] [place] [facility] [address] [id number] [place] [address]- 5698 Mar, [facility] [place] [facility] [address] [id number] [place] [address]- 6646 Mar, [facility] [place] [facility] [address] [id number] [place] [address]- 6852 Jan, [facility] [place] [facility] [address] [id number] [place] [address]- 1028 Jan, [facility] [place] [facility] [address] [id number] [place] [address]- 1498 05 Jan, 2013 [facility] [place] [facility] [address] [id number] [place] [address]- 2354 05 Jan, 2013 [facility] [place] [facility] [address] [id number] [place] [address]- 1521 Jan, [facility] [place] [facility] [address] [id number] [place] [address]- 1231 Jan, 2013 [facility] [place] [facility] [address] [id number] [place] [address]- 2361 Dec, [facility] [place] [facility] [address] [id number] [place] [address]- 3259 Dec, [facility] [place] [facility] [address] [id number] [place] [address]- 5905 Dec, [facility] [place] [facility] [address] [id number] [place] [address]- 7964 Dec, [facility] [place] [facility] [address] [id number] [place] [address]- 4168 Dec, [facility] [place] [facility] [address] [id number] [place] [address]- 8496 Dec, [facility] [place] [facility] [address] [id number] [place] [address]- 0632 Nov, [facility] [place] [facility] [address] [id number] [place] [address]- 0781 Nov, [facility] [place] [facility] [address] [id number] [place] [address]- 2870 Nov, [facility] [place] [facility] [address] [id number] [place] [address]- 7982 Nov, [facility] [place] [facility] [address] [id number] [place] [address]- 3681 Nov, [facility] [place] [facility] [address] [id number] [place] [address]- 3391 Nov, [facility] [place] [facility] [address] [id number] [place] [address]- 9351 Nov, [facility] [place] [facility] [address] [id number] [place] [address]- 1263 Nov, [facility] [place] [facility] [address] [id number] [place] [address]- 8299 Nov, [facility] [place] [facility] [address] [id number] [place] 7138 Nov, [facility] [place] [facility] [address] [id number] [place] [address]- 5088 September, [facility] [address] [id number] [place] [address]- 7156 September, [facility] [place] [facility] [address] [id number] [place] [address]- 3762 September, [facility] [place] [facility] [address] [id number] [place] [address]- 4912 September, [facility] [place] [facility] [address] [id number] [place] [address]- 6649 September, [facility] [place] [facility] [address] [id number] [place] [address]- 7797 September, [facility] [place] [facility] [address] [id number] [place] [address]- 2748 September, [facility] [address] [id number] [place] [address]- 3296 September, [facility] [place] [facility] [address] [id number] [place] [address]- 2839 Aug, [facility] [place] [facility] [address] [id number] [place] [address]- 4759 Aug, [facility] [place] [facility] [address] [id number] [place] [address]- 9689 Aug, [facility] [place] [facility] [address] [id number] [place] [address]- 9098 Aug, [facility] [place] [facility] [address] [id number], [place] [address]- 3253 Jul, [facility] [place] [facility] [address] [id number] [place] [address]- 4539 Jul, [facility] [place] [facility] [address] [id number] [place] [address]- 0842 Jul, [facility] [place] [facility] [address] [id number] [place] [address]- 2403 Jul, [facility] [place] [facility] [address] [id number] [place] [address]- 8249 Jul, [facility] [place] [facility] [address] [id number] [place] [address]- 7996 Jul, [facility] [place] [facility] [address] [id number] [place]- 6566 Jul, [facility] [place] [facility] [address] [id number] [place] [address] 2546 Jul, [facility] [place] [facility] [address] [id number] [place] [address]- 0465 Jul, [facility] [place] [facility] [address] [id number] [place] [address]- 4326 Jul, [facility] [place] [facility] [address] [id number] [place] [address]- 0220 Jul, [facility] [place] [facility] [address] [id number] [place] [address]- 3224 Jun, [facility] [place] [facility] [address] [id number] [place] [address]- 7774 Jun, [facility] [place] [facility] [address] [id number] [place] [address]- 2788 Jun, [facility] [place] [facility] [address] [id number] [place] [address]- 3548 Jun, [facility] [place] [facility] [address] [id number] [place] [address]- 7114 May, [facility] [place] [facility] [address] [id number] [place] [address] 2546 May, [facility] [place] [facility] [address] [id number] [place] [address] 2546 Apr, [facility] [place] [facility] [address] [id number] [place] [address]- 2542 Apr, [facility] [place] [facility] [address] [id number] [place] [address]- 7860 Apr, [facility] [place] [facility] [address] [id number] [place] [address]- 9774 Apr, [facility] [place] [facility] [address] [id number] [place] [address]- 6500 Apr, [facility] [place] [facility] [address] [id number] [place] [address]- 0033 Apr, [facility] [place] [facility] [address] [id number] [place] [address]- 1064 Apr, [facility] [place] [facility] [address] [id number] [place] [address]- 8707 Apr, [facility] [place] [facility] [address] [id number] [place] [address]- 9962 Apr, [facility] [place] [facility] [address] [id number] [place] [address]- 5932 Apr, [facility] [place] [facility] [address] [id number] [place] [address]- 5773 Apr, [facility] [place] [facility] [address] [id number] [place] [address]- 4159 Apr, [facility] [place] [facility] [address] [id number] [place] [address]- 7665 Mar, [facility] [place] [facility] [address] [id number] [place] [address]- 3208 Mar, [facility] [place] [facility] [address] [id number], [place] [address]- 6859 Mar, [facility] [place] [facility] [address] [id number], [place] [address]- 4738 Dec, [facility] [place] [facility] [address] [id number] [place] [address]- 2554 Dec, [facility] [place] [facility] [address] [id number], [place] [address]- 1166 Dec, [facility] [place] [facility] [address] [facility] [id number] [place] [address]- 9450 Oct, [facility] [address] [facility] [id number], [place] [address]- 8664 May, [facility] [address] [facility] [id number], [place] [address]- 3546 May, [facility] [address] [facility] [id number], [place] [address]- 1853 May, [facility] [address] [facility] [id number], [place] [address]- 4166 Dec, IMMUNIZATIONS No Known Immunizations SOCIAL HISTORY Never Assessed REASON FOR VISIT Blood pressure check--Danya, --pt wanted to compair a manual reading verses her machine that she uses at home , -Manual- 132/88 home bp machine-165/ 105, machine is 4 years old, pt is going to replace. PLAN OF CARE VITAL SIGNS Height 66 in 2017-07-24 Blood pressure systolic 132 mmHg 2017-07-24 Blood pressure diastolic 88 mmHg 2017-07-24 MEDICATIONS Medication Instructions Dosage Frequency Start Date End Date Duration Status Hydrochlorothiazide 12.5 MG Orally Once a day 1 capsule in the morning 24h 30 day(s) Unknown Fish Oil 1000 MG Orally Once a day 2 capsule 24h Unknown Benztropine Mesylate 1 MG Orally twice a day 1 tablet 12h 30 days Unknown Omeprazole 40 mg Orally Once a day 1 capsule 24h May, 90 days Unknown Linzess 145 MCG Orally Once a day 1 capsule 24h Jun, Mar, 90 days Unknown Melatonin 5 MG 1 tablet at bedtime as needed with food Unknown Aspirin 81 MG Orally Once a day 1 tablet 24h Unknown Loxapine Succinate 5 MG Orally at night 1 capsule Oct, 30 days Unknown Linzess 145 MCG Orally Once a day 1 capsule 24h Nov, 30 days Unknown Albuterol Sulfate 108 (90 Base) MCG/ACT Inhalation every 4-6 hrs 1 puff as needed May, Unknown Cymbalta 60 MG Orally Once a day 1 Capsule 24h 30 days Unknown Abilify 30 MG Orally Once a day 1 tablet 24h Nov, 30 days Unknown Multivitamin Gummies Adult Unknown Trazodone HCl 50 MG Orally at night as needed for sleep 0.5-1 tablet Jun, 30 days Unknown Calcium 600 MG Orally Once a day 1 tablet with meals 24h 30 days Unknown Advair Diskus 100-50 MCG/DOSE Inhalation Twice a day 1 puff 12h Unknown Premarin 0.9 MG Orally Once a day 1 tablet 24h Unknown Vitamin D 2000 UNIT Orally Once a day 1 tablet 24h Unknown Xanax 0.5 MG Orally Twice a day 1 tablet 12h Unknown RESULTS No Results PROCEDURES No Known procedures [...] Gall Bladder Surgical History Tubalization Hospitalization History [facility] 12/2014 Hospitalization History Obstructive Airway Disease, Mood disorder, cough-[facility] 07/02/15 Hospitalization History Bronchitis- [facility] 06/2016
--- OUTSIDE RECORDS SUMMARY | 2018-02-03 08:49 | XMS REPORT ---
Author Author MARYSOL CANSECO [facility] Address [address] [place] [address] Care Team Providers Care Tube Operator Name Role Phone MARYSOL CANSECO Unavailable PROBLEMS Type Condition ICD9-CM Code ACR98-WP Code Onset Dates Condition Status SNOMED Code Problem Mixed hyperlipidemia E78.2 Active 937395498 Problem Bipolar affective disorder, currently manic, mild F31.11 Active 053030833 Problem Chronic fatigue R53.82 Active 24881743 Problem COPD exacerbation J44.1 Active 883454320 Problem Other chronic pain G89.29 Active 02044369 Problem Chronic obstructive pulmonary disease, unspecified COPD type J44.9 Active 67075901 Problem Slow transit constipation K59.01 Active 55824170 Problem Bipolar disorder, in partial remission, most recent episode mixed F31.77 Active 71759337 Problem Bipolar disorder, current episode mixed, mild F31.61 Active 528291556 Problem Bipolar II disorder F31.81 Active 99376351 Problem History of renal insufficiency syndrome Z87.448 Active 370780478 Problem Pharyngeal dysphagia R13.13 Active [id number] Problem Post-traumatic stress disorder, chronic F43.12 Active 27057689 Problem Confusion R41.0 Active 589270056 Problem Memory change R41.3 Active 254611541 Problem Dizziness R42 Active 707788375 ALLERGIES No Information ENCOUNTERS Encounter Location Date Diagnosis [facility] [id number] [address] Jan, [facility] [id number] [place] [address] 18551- 1429 Dec, [facility] [id number] [address] 9[address] Dec, [facility] [id number] [place] [address] 05314- 3445 Nov, [facility] [address] [address] 34[address] Nov, [facility] [id number] [place] [address] 55784- 6966 Nov, [facility] [id number] [place] [address] 99005- 8457 Oct, Bipolar disorder, in partial remission, most recent episode mixed F31.77 [facility] [id number] [address] Oct, Scabies B86 [facility] [id number] [place] [address] 92229- 4915 Oct, Bipolar disorder, in partial remission, most recent episode mixed F31.77 [facility] [id number] [place] [address] 04672- 6608 Oct, [facility] [id number] [place] [address] 29252- 2287 Oct, Bipolar II disorder F31.81 and Post-traumatic stress disorder, chronic F43.12 [facility] [id number] [place] [address] 14326 -4038 Oct, Scabies B86 [facility] [address] [address] Oct, [facility] [id number] [place] [address] 55468- 4334 September, Bipolar II disorder F31.81 and Post-traumatic stress disorder, chronic F43.12 [facility] [id number] [place] [address] 01770- 2152 September, Bipolar disorder, in partial remission, most recent episode mixed F31.77 [facility] [address] [address] 67[address] September, COPD exacerbation J44.1 and Elevated blood pressure reading R03.0 [place] [id number] [place] [address] 83590- 2315 September, [place] [address] 99495- 9570 September, Pain in left ankle and joints of left foot M25.572 ; Dermatitis L30.9 and Other chronic pain G89.29 [place] [address] 43167- 7426 Aug, Right elbow pain M25.521 and Elevated blood pressure reading R03.0 [place] [address] 54421- 1901 Aug, Bipolar disorder, current episode mixed, mild F31.61 and BMI 40.0-44.9, adult Z68.41 [place] [address] 40967- 3838 Aug, [place] [address] 55571- 9650 Aug, Bipolar II disorder F31.81 and Post-traumatic stress disorder, chronic F43.12 [place] [address] 24233- 4187 Jul, Elevated blood pressure reading R03.0 [place] [id number] [place] [address] 42833- 9286 Jul, Bipolar II disorder F31.81 and Post-traumatic stress disorder, chronic F43.12 [place] [id number] [place] [address] 88644- 4910 Jul, Bipolar disorder, current episode mixed, mild F31.61 [facility] [id number] [place] [address] 30124 -8082 Jul, Right foot pain M79.671 ; Allergic contact dermatitis, unspecified trigger L23.9 ; Contusion of right foot, initial encounter S90.31XA and BMI 40.0-44.9, adult Z68.[address] 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 [facility] [id number] [place] [address] 18590- 9748 22 Jul, 2017 [facility] [id number] [place] [address] 40638- 9658 15 Jul, 2017 Bipolar disorder, current episode mixed, mild F31.61 [place] [address] [place] [address] 07394- 2119 15 Jul, 2017 Bipolar II disorder F31.81 ; Post-traumatic stress disorder , chronic F43.12 and Memory change R41.3 [facility] [id number] [place] [address] 06032- 3710 14 Jul, 2017 Elevated blood pressure reading R03.0 ; Chronic obstructive pulmonary disease, unspecified COPD type J44.9 ; Long-term use of high-risk medication Z79.899 and Cognitive decline R41.89 [facility] [id number] [place] [address] 70990- 2327 06 Jul, 2017 Elevated blood pressure reading R03.0 [facility] [id number] [place] [address] 02364- 5099 05 Jul, 2017 [facility] [id number] [place] [address] 53108- 0149 01 Jul, 2017 Bipolar II disorder F31.81 ; Post-traumatic stress disorder , chronic F43.12 and Memory change R41.3 [place] [address] [address] 5671 Jun, [place] [id number] [place] [address] 21144- 9955 Jun, Bipolar II disorder F31.81 ; Post-traumatic stress disorder , chronic F43.12 and Memory change R41.3 [place] [id number] [place] [address] 16601- 9344 Jun, Localized swelling, mass or lump of neck R22.1 ; Slow transit constipation K59.01 and Elevated blood pressure reading R03.0 [place] [id number] [place] [address] 28093- 4274 Jun, [place] [id number] [place] [address] 59457- 2152 Jun, Bipolar affective disorder, currently manic, mild F31.11 [facility] [id number] [place] [address] 86104 -4402 May, [facility] [place] [id number] [place] [address] 49165 -6213 14 May, 2017 [place] [id number] [place] [address] 07398- 9882 13 May, 2017 Bipolar II disorder F31.81 ; Post-traumatic stress disorder , chronic F43.12 and Memory change R41.3 [place] [id number] [place] [address] 05235- 2217 May, [place] [id number] [place] [address] 48864- 8965 May, [place] [id number] [place] [address] 20611- 2745 May, Bipolar affective disorder, currently manic, mild F31.11 [place] [id number] [place] [address] 12255- 7962 May, [facility] [id number] [place] [address] 34686 -9332 May, Localized swelling, mass or lump of neck R22.1 and Localized swelling, mass and lump, head R22.0 [place] [id number] [place] [address] 80322- 0738 Apr, [place] [id number] [place] [address] 37719- 6368 Apr, Bipolar affective disorder, currently manic, mild F31.11 [facility] [id number] [place] [address] 55665- 2415 Apr, Bipolar II disorder F31.81 [facility] [id number] [place] [address] 89472- 8705 Apr, [facility] [id number] [place] [address] 164658- 9633 Apr, Bipolar affective disorder, currently manic, mild F31.11 [facility] [id number] [place] [address] 66285- 3693 Apr, Actinic keratosis L57.0 [facility] [id number] [place] [address] 93152- 6552 Apr, Bipolar affective disorder, currently manic, mild F31.11 [facility] [id number] [place] [address] 45655- 7815 Apr, [facility] [id number] [place] [address] 59391 -5721 Mar, Allergic contact dermatitis, unspecified trigger L23.9 and Right leg pain M79.604 [facility] [id number] [place] [address] 00875- 7381 Mar, [facility] [id number] [place] [address] 99657- 0701 Mar, Bipolar II disorder F31.81 ; Post-traumatic stress disorder , chronic F43.12 and Memory change R41.3 [facility] [id number] [place] [address] 61060- 8335 Mar, Actinic keratosis L57.0 [facility] [id number] [place] [address] 79750- 0021 Jan, Bipolar II disorder F31.81 ; Post-traumatic stress disorder , chronic F43.12 and Memory change R41.3 [place] [address] [address]- 9424 28 Jan, 2017 Bipolar affective disorder, currently manic, mild F31.11 [facility] [id number] [place] [address] 53218- 6666 13 Jan, 2017 Bipolar affective disorder, currently manic, mild F31.11 [facility] [id number] [place] [address] 81556- 5800 07 Jan, 2017 Bipolar II disorder F31.81 ; Post-traumatic stress disorder , chronic F43.12 and Memory change R41.3 [facility] [id number] [place] [address] 41981- 7354 Dec, Bipolar II disorder F31.81 ; Post-traumatic stress disorder , chronic F43.12 and Memory change R41.3 [facility] [id number] [place] [address] 31823- 7621 Dec, Bipolar affective disorder, currently manic, mild F31.11 [facility] [id number] [place] [address] 28906- 6243 Dec, Bipolar affective disorder, currently manic, mild F31.11 [facility] [id number] [place] [address] 58476- 1610 Dec, Post-traumatic stress disorder, chronic F43.12 [facility] [id number] [place] [address] 44729- 6150 Dec, Bipolar II disorder F31.81 ; Post-traumatic stress disorder , chronic F43.12 and Memory change R41.3 [facility] [id number] [place] [address] 15837- 0323 Dec, Post-traumatic stress disorder, chronic F43.12 [facility] [address] [address]- 7148 Nov, [facility] [id number] [place] [address] 94983- 0341 Nov, Bipolar II disorder F31.81 ; Post-traumatic stress disorder , chronic F43.12 and Memory change R41.3 [facility] [address] [address]- 6544 Nov, [facility] [id number] [place] [address] 00267- 6118 Nov, Post-traumatic stress disorder, chronic F43.12 and Bipolar II disorder F31.81 [facility] [id number] [place] [address] 28659- 8731 Nov, Actinic keratosis L57.0 [facility] [id number] [place] [address] 56835- 3873 Oct, Bipolar II disorder F31.81 ; Post-traumatic stress disorder , chronic F43.12 and Memory change R41.3 [place] [id number] [place] [address] 36668- 4186 Oct, Post-traumatic stress disorder, chronic F43.12 ; Bipolar II disorder F31.81 and Memory change R41.3 [place] [id number] [place] [address] 85027- 6738 Oct, Bipolar II disorder F31.81 ; Post-traumatic stress disorder , chronic F43.12 and Memory change R41.3 [facility] [address] [address]- 2051 Oct, Actinic keratosis L57.0 [facility] [id number] [place] [address] 80836- 8827 September, Bipolar II disorder F31.81 ; Post-traumatic stress disorder , chronic F43.12 and Memory change R41.3 [place] [id number] [place] [address] 96830- 4888 September, Bipolar II disorder F31.81 ; Post-traumatic stress disorder , chronic F43.12 and Memory change R41.3 [place] [id number] [place] [address] 36813- 9142 September, Post-traumatic stress disorder, chronic F43.12 ; Bipolar II disorder F31.81 and Memory change R41.3 [place] [address] [place], [place] [address]- 733 Jul, Bipolar II disorder F31.81 ; Post-traumatic stress disorder , chronic F43.12 and Memory change R41.3 [place] [id number] [place] [address]- 1298 Jul, Bipolar II disorder F31.81 ; Post-traumatic stress disorder , chronic F43.12 and Memory change R41.3 [place] [id number] [place] [address]- 6430 Jul, Bipolar II disorder F31.81 ; Post-traumatic stress disorder , chronic F43.12 and Memory change R41.3 [place] [id number] [place] [address] 62541- 5953 Jul, Post-traumatic stress disorder, chronic F43.12 ; Bipolar II disorder F31.81 and Memory change R41.3 [place] [id number] [place] [address] 72321- 7174 Jul, Tear of medial meniscus of right knee, unspecified tear type , unspecified whether old or current tear, initial encounter S83.241A [place] [address] [place] [address] 16620- 4508 Jul, Bipolar II disorder F31.81 ; Post-traumatic stress disorder , chronic F43.12 and Memory change R41.3 [place] [id number] [place] [address] 98032- 4674 Jul, Shortness of breath R06.02 ; Mixed hyperlipidemia E78.2 and Chronic fatigue R53.82 [place] [id number] [place] [address] 52879- 5087 07 Jul, 2016 Bipolar II disorder F31.81 ; Post-traumatic stress disorder , chronic F43.12 and Memory change R41.3 [facility] [address] [address]- 7171 Jul, [facility] [id number] [place] [address] 74984239- 3196 Jun, Bipolar II disorder F31.81 ; Post-traumatic stress disorder , chronic F43.12 and Memory change R41.3 [facility] [id number] [place] [address] 02327- 5008 Jun, Post-traumatic stress disorder, chronic F43.12 ; Bipolar II disorder F31.81 and Memory change R41.3 [facility] [address] [place] [address] 01802- 7584 Jun, Right anterior knee pain M25.561 ; Shortness of breath R06.02 and Bronchiolitis J21.9 [facility] [id number] [place] [address] 51333- 8346 Jun, [facility] [id number] [place] [address] 30148- 2867 Jun, Bipolar II disorder F31.81 ; Post-traumatic stress disorder , chronic F43.12 and Memory change R41.3 [facility] [address] [address]- 1485 Jun, [facility] [address] [address]- 0978 Jun, Bipolar II disorder F31.81 ; Post-traumatic stress disorder , chronic F43.12 and Memory change R41.3 [facility] [address] [address]- 8656 May, [facility] [id number] [place] [address] [id number]- 6826 May, [facility] [address] [address]- 9365 May, [facility] [id number] [place] [address] 39374- 9873 May, Right anterior knee pain M25.561 ; Cough R05 ; Skin lesion of right arm L98.9 and Lesion of skin of face L98.9 [facility] [id number] [place] [address] 40330- 8951 May, [facility] [id number] [place] [address] 53555- 1813 May, Post-traumatic stress disorder, chronic F43.12 ; Memory change R41.3 and Bipolar I disorder, most recent episode manic F31.10 [facility] [id number] [place] [address] 78201- 8026 May, [facility] [id number] [place] [address] 14452- 5741 May, Right anterior knee pain M25.561 [facility] [id number] [place] [address] 46328- 9117 May, [facility] [id number] [place] [address] 34036- 8703 Apr, Bipolar II disorder F31.81 ; Post-traumatic stress disorder , chronic F43.12 and Memory change R41.3 [facility] [id number] [place] [address] 03094- 8325 Apr, Bipolar II disorder F31.81 ; Post-traumatic stress disorder , chronic F43.12 and Memory change R41.3 [facility] [id number] [place] [address] 71862- 0673 Apr, Post-traumatic stress disorder, chronic F43.12 ; Bipolar II disorder F31.81 and Memory change R41.3 [place] [id number] [place] [address] 21535- 6491 Mar, Bipolar II disorder F31.81 ; Post-traumatic stress disorder , chronic F43.12 and Memory change R41.3 [place] [id number] [place] [address] 19994- 1297 Mar, Memory change R41.3 ; Confusion R41.0 and Dizziness R42 [place] [id number] [place] [address] 21184- 9521 Mar, Memory change R41.3 ; Encounter for immunization Z23 and Fatigue, unspecified type R53.83 [place] [id number] [place] [address] 18527- 1378 Mar, Bipolar II disorder F31.81 ; Post-traumatic stress disorder , chronic F43.12 and Memory change R41.3 [place] [id number] [place] [address] 53424- 7516 Jan, Bipolar II disorder F31.81 ; Post-traumatic stress disorder , chronic F43.12 and Memory change R41.3 [place] [id number] [place] [address] 93714- 4930 Jan, Post-traumatic stress disorder, chronic F43.12 ; Bipolar II disorder F31.81 ; Anxiety disorder, unspecified F41.9 and Memory change R41.3 [place] [id number] [place] [address] 82297- 4077 15 Feb, 2016 Bipolar II disorder F31.81 ; Post-traumatic stress disorder , chronic F43.12 and Memory change R41.3 [place] [id number] [place] [address] 86400- 5476 Dec, Bipolar II disorder F31.81 ; Post-traumatic stress disorder , chronic F43.12 and Memory change R41.3 [place] [id number] [place] [address] 47641- 9242 Dec, Memory loss R41.3 [place] [id number] [place] [address] 60904- 7235 Dec, Bipolar II disorder F31.81 ; Post-traumatic stress disorder , chronic F43.12 and Memory change R41.3 [place] [id number] [place] [address] 61002- 7026 Nov, Bipolar II disorder F31.81 and Post-traumatic stress disorder, chronic F43.12 [facility] [id number] [place] [address] 53138- 9613 Nov, Bipolar II disorder F31.81 ; Post-traumatic stress disorder , chronic F43.12 and Memory change R41.3 [facility] [id number] [place] [address] 57889- 1854 Oct, Post-traumatic stress disorder, chronic F43.12 and Bipolar disorder, unspecified F31.9 [facility] [id number] [place] [address] 45297- 2014 Oct, Bipolar II disorder F31.81 ; Post-traumatic stress disorder , chronic F43.12 and Memory change R41.3 [facility] [address] [place] [address] [id number] Oct, Dental examination Z01.20 [facility] [id number] [place] [address] 41034- 0780 September, Bipolar II disorder F31.81 ; Post-traumatic stress disorder , chronic F43.12 and Memory change R41.3 [facility] [id number] [place] [address] 56374- 4914 Aug, Bipolar II disorder F31.81 and Post-traumatic stress disorder, chronic F43.12 [facility] [id number] [place] [address] 14969- 7625 Aug, Bipolar II disorder F31.81 and Post-traumatic stress disorder, chronic F43.12 [facility] [id number] [place] [address] 20372- 3288 Jul, Bipolar II disorder F31.81 and Post-traumatic stress disorder, chronic F43.12 [facility] [id number] [place] [address] 35423- 3869 Jul, [facility] [id number] [place] [address] 10994- 2469 15 Jul, 2015 [facility] [id number] [place] [address] 98349- 8272 Jul, Post-traumatic stress disorder, chronic F43.12 and Bipolar disorder, unspecified F31.9 [facility] [id number] [place] [address] [phone] Jun, Bipolar II disorder F31.81 and Post-traumatic stress disorder, chronic F43.12 [facility] [id number] [place] [address] [phone] Jun, Post-traumatic stress disorder, chronic F43.12 and Bipolar disorder, unspecified F31.9 [place] [id number] [place] [address] [phone] Jun, [place] [id number] [place] [address] [id number] [phone] Jun, Pharyngeal dysphagia R13.13 ; Hoarseness R49.0 and Cough R05 [facility] [id number] [place] [address] [phone] Jun, Post-traumatic stress disorder, chronic F43.12 and Bipolar disorder, unspecified F31.9 [facility] [id number] [place] [address] [id number] May, Cough R05 [facility] [address] [place] [id number] [place] [address] 31233- 0804 May, Post-traumatic stress disorder, chronic F43.12 and Bipolar disorder, unspecified F31.9 [facility] [id number] [place] [address] 46720- 2958 May, Cough R05 [facility] [id number] [place] [address] 44912- 9214 May, [facility] [id number] [place] [address] [id number] May, Dental examination Z01.20 [place] [id number] [place] [address] 60940- 6413 15 May, 2015 Bipolar II disorder F31.81 and Post-traumatic stress disorder, chronic F43.12 [facility] [id number] [place] [address] 66217- 6460 May, [place] [id number] [place] [address] 37197- 6772 May, Bipolar II disorder F31.81 and Anxiety disorder, unspecified F41.9 [place] [address] [id number] [place] [address] 86410- 2603 May, Memory change R41.3 and History of renal insufficiency syndrome Z87.448 [place] [address] [address] [id number] [place] [address] 59891- 9808 May, Memory change R41.3 ; Dry mouth R68.2 and History of renal insufficiency syndrome Z87.448 [place] [address] [id number] [place] [address] 13201- 8863 May, Bipolar II disorder F31.81 and Post-traumatic stress disorder, chronic F43.12 [place] [address] [address] [id number] [place] [address] 80243- 7142 Mar, Bipolar disorder, unspecified F31.9 and Generalized anxiety disorder F41.1 [place] [address] [id number] [place] [address] 05322- 2707 Mar, Bipolar II disorder F31.81 [place] [address] [address] [id number] [place] [address] 08007- 5050 Mar, Encounter for immunization Z23 [place] [address] 03551- 5474 Mar, [place] [address] [id number] [place] [address] 72888- 0859 Mar, Bipolar II disorder F31.81 [place] [address] 65925- 5366 Mar, [facility] [id number] [address] 3[address] Jan, Bipolar disorder, unspecified 296.80 and Anxiety disorder 300.00 [facility] [id number] [place] [address] 37489- 6606 Jan, [facility] [id number] [place] [address] 46841- 5248 Jan, Bipolar disorder, unspecified 296.80 and Anxiety disorder 300.00 [facility] [id number] [place] [address] 16099- 1294 Dec, Bipolar disorder, unspecified 296.80 and Anxiety disorder 300.00 [facility] [id number] [place] [address] 86981- 0212 Dec, [facility] [id number] [place] [address] 086140- 4581 Dec, Bipolar disorder, unspecified 296.80 and Anxiety disorder 300.00 [facility] [id number] [place] [address] 023714- 1748 Nov, Bipolar disorder, unspecified 296.80 and Anxiety disorder 300.00 [facility] [id number] [place] [address] 40237- 4481 Oct, Bipolar disorder, unspecified 296.80 and Anxiety disorder 300.00 [facility] [id number] [place] [address] 182189- 5045 Oct, Anxiety 300.00 and Bipolar disorder, unspecified 296.80 [facility] [id number] [place] [address] 10025- 9326 September, Bipolar disorder, unspecified 296.80 and Anxiety disorder 300.00 [facility] [id number] [place] [address] 36951- 1636 September, [facility] [id number] [place] [address] 676779- 9630 Aug, Cough 786.2 [facility] [place] [facility] [address] [id number] [place] [address]- 2453 Aug, [facility] [place] [facility] [address] [id number] [place] [address]- 2959 Aug, [facility] [place] [facility] [address] [id number] [place] [address]- 8454 Jul, [facility] [place] [facility] [address] [id number] [place] 7139 Jul, [facility] [place] [facility] [address] [id number] [place] [address]- 0908 Jul, [facility] [place] [facility] [address] [id number] [place] [address]- 6304 Jul, [facility] [place] [facility] [address] [id number] [place] [address]- 9257 Jul, [facility] [place] [facility] [address] [id number] [place] [address]- 7911 Jul, [facility] [place] [facility] [address] [id number] [place] [address]- 2099 Jun, [facility] [place] [facility] [address] [id number] [place] [address]- 0112 Jun, [facility] [place] [facility] [address] [id number] [place] [address]- 6622 Jun, [facility] [place] [facility] [address] [id number] [place] [address]- 8721 Jun, [facility] [place] [facility] [address] [id number] [place] [address]- 4630 May, [facility] [place] [facility] [address] [id number] [place] [address]- 5871 May, [facility] [place] [facility] [address] [facility] [id number] [place] [address]- 3610 May, [facility] [place] [facility] [address] [id number] [place] [address]- 7318 May, [facility] [place] [facility] [address] [id number] [place] [address]- 9112 Apr, [facility] [place] [facility] [address] [id number] [place] 9699 Apr, [facility] [place] [facility] [address] [id number] [place] [address]- 6473 Mar, [facility] [place] [facility] [address] [id number] [place] [address]- 9490 Mar, [facility] [place] [facility] [address] [id number] [place] [address]- 0408 Mar, [facility] [place] [facility] [address] [id number] [place] [address]- 4888 Mar, [facility] [place] [facility] [address] [id number] [place] [address]- 8902 Mar, [facility] [place] [facility] [address] [id number] [place] [address]- 8989 Mar, [facility] [place] [facility] [address] [id number] [place] [address]- 8364 Jan, [facility] [place] [facility] [address] [id number] [place] [address]- 8361 Jan, [facility] [place] [facility] [address] [id number] [place] [address]- 3686 05 Jan, 2013 [facility] [place] [facility] [address] [id number] [place] [address]- 4311 05 Jan, 2013 [facility] [place] [facility] [address] [id number] [place] [address]- 3103 Jan, [facility] [place] [facility] [address] [id number] [place] [address]- 6847 Jan, 2013 [facility] [place] [facility] [address] [id number] [place] [address]- 5085 Dec, [facility] [place] [facility] [address] [id number] [place] [address]- 3421 Dec, [facility] [place] [facility] [address] [id number] [place] [address]- 4208 Dec, [facility] [place] [facility] [address] [id number] [place] [address]- 8928 Dec, [facility] [place] [facility] [address] [id number] [place] [address]- 6915 Dec, [facility] [place] [facility] [address] [id number] [place] [address]- 3472 Dec, [facility] [place] [facility] [address] [id number] [place] [address]- 9967 Nov, [facility] [place] [facility] [address] [id number] [place] [address]- 2507 Nov, [facility] [place] [facility] [address] [id number] [place] [address]- 1758 Nov, [facility] [place] [facility] [address] [id number] [place] [address]- 6844 Nov, [facility] [place] [facility] [address] [id number] [place] [address]- 9938 Nov, [facility] [place] [facility] [address] [id number] [place] [address]- 9946 Nov, [facility] [place] [facility] [address] [id number] [place] [address]- 8368 Nov, [facility] [place] [facility] [address] [id number] [place] [address]- 2111 Nov, [facility] [place] [facility] [address] [id number] [place] [address]- 2093 Nov, [facility] [place] [facility] [address] [id number] [place] 3662 Nov, [facility] [place] [facility] [address] [id number] [place] [address]- 9320 September, [facility] [address] [id number] [place] [address]- 9158 September, [facility] [place] [facility] [address] [id number] [place] [address]- 1844 September, [facility] [place] [facility] [address] [id number] [place] [address]- 2066 September, [facility] [place] [facility] [address] [id number] [place] [address]- 0079 September, [facility] [place] [facility] [address] [id number] [place] [address]- 4089 September, [facility] [place] [facility] [address] [id number] [place] [address]- 2542 September, [facility] [address] [id number] [place] [address]- 5429 September, [facility] [place] [facility] [address] [id number] [place] [address]- 8409 Aug, [facility] [place] [facility] [address] [id number] [place] [address]- 7516 Aug, [facility] [place] [facility] [address] [id number] [place] [address]- 5226 Aug, [facility] [place] [facility] [address] [id number] [place] [address]- 5947 Aug, [facility] [place] [facility] [address] [id number] [place] [address]- 8524 Jul, [facility] [place] [facility] [address] [id number] [place] [address]- 1313 Jul, [facility] [place] [facility] [address] [id number] [place] [address]- 9974 Jul, [facility] [place] [facility] [address] [id number] [place] [address]- 6291 Jul, [facility] [place] [facility] [address] [id number] [place] [address]- 4944 Jul, [facility] [place] [facility] [address] [id number] [place] [address]- 0576 Jul, [facility] [place] [facility] [address] [id number] [place] 7386 Jul, [facility] [place] [facility] [address] [id number] [place] [address] 2546 Jul, [facility] [place] [facility] [address] [id number] [place] [address]- 1640 Jul, [facility] [place] [facility] [address] [id number] [place] [address]- 9036 Jul, [facility] [place] [facility] [address] [id number] [place] [address]- 7153 Jul, [facility] [place] [facility] [address] [id number] [place] [address]- 6952 Jun, [facility] [place] [facility] [address] [id number] [place] [address]- 4619 Jun, [facility] [place] [facility] [address] [id number] [place] [address]- 0430 Jun, [facility] [place] [facility] [address] [id number] [place] [address]- 2510 Jun, [facility] [place] [facility] [address] [id number] [place] [address]- 2367 May, [facility] [place] [facility] [address] [id number] [place] [address] 2546 May, [facility] [place] [facility] [address] [id number] [place] [address] 2546 Apr, [facility] [place] [facility] [address] [id number] [place] [address]- 2547 Apr, [facility] [place] [facility] [address] [id number] [place] [address]- 8644 Apr, [facility] [place] [facility] [address] [id number] [place] [address]- 9586 Apr, [facility] [place] [facility] [address] [id number] [place] [address]- 2308 Apr, [facility] [place] [facility] [address] [id number] [place] [address]- 4224 Apr, [facility] [place] [facility] [address] [id number] [place] [address]- 9226 Apr, [facility] [place] [facility] [address] [id number] [place] [address]- 6407 Apr, [facility] [place] [facility] [address] [id number] [place] [address]- 3141 Apr, [facility] [place] [facility] [address] [id number] [place] [address]- 7690 Apr, [facility] [place] [facility] [address] [id number] [place] [address]- 2046 Apr, [facility] [place] [facility] [address] [id number] [place] [address]- 4634 Apr, [facility] [place] [facility] [address] [id number] [place] [address]- 2275 Mar, [facility] [place] [facility] [address] [id number] [place] [address]- 0925 Mar, [facility] [place] [facility] [address] [id number] [place] [address]- 5626 Mar, [facility] [place] [facility] [address] [id number] [place] [address]- 0873 Dec, [facility] [place] [facility] [address] [id number] [place] [address]- 6807 Dec, [facility] [place] [facility] [address] [id number] [place] [address]- 6852 Dec, [facility] [place] [facility] [address] [facility] [id number] [place] [address]- 2546 Oct, [facility] [address] [facility] [id number] [place] [address]- 6716 May, [facility] [address] [facility] [id number] [place] [address]- 2546 May, [facility] [address] [facility] [id number] [place] [address]- 2546 May, [facility] [address] [facility] [id number] [place] [address]- 0071 Dec, IMMUNIZATIONS No Known Immunizations SOCIAL HISTORY Never Assessed REASON FOR VISIT Refill request PLAN OF CARE VITAL SIGNS MEDICATIONS Medication Instructions Dosage Frequency Start Date End Date Duration Status Hydrochlorothiazide 12.5 MG Orally Once a day 1 capsule in the morning 24h 30 day(s) Active RESULTS No Results PROCEDURES No Known [...] Gall Bladder Surgical History Tubalization Hospitalization History [facility] 12/2014 Hospitalization History Obstructive Airway Disease, Mood disorder, cough-[facility] 07/02/15 Hospitalization History [facility]chitis- [facility] 06/2016
--- OUTSIDE RECORDS SUMMARY | 2018-02-03 08:50 | XMS REPORT ---
Author Author MACEYDREW [facility] Address [address] [place] [address] Care Team Providers Care Md Physician Dermatologist Name Role Phone LUCILADREW AJ Unavailable PROBLEMS Type Condition ICD9-CM Code LLB68-HY Code Onset Dates Condition Status SNOMED Code Problem Mixed hyperlipidemia E78.2 Active 721334688 Problem Bipolar affective disorder, currently manic, mild F31.11 Active 271657865 Problem Chronic fatigue R53.82 Active 69975720 Problem COPD exacerbation J44.1 Active 618198349 Problem Other chronic pain G89.29 Active 03877790 Problem Chronic obstructive pulmonary disease, unspecified COPD type J44.9 Active 04083129 Problem Slow transit constipation K59.01 Active 01453508 Problem Bipolar disorder, in partial remission, most recent episode mixed F31.77 Active 94213873 Problem Bipolar disorder, current episode mixed, mild F31.61 Active 615741875 Problem Bipolar II disorder F31.81 Active 36477891 Problem History of renal insufficiency syndrome Z87.448 Active 316129816 Problem Pharyngeal dysphagia R13.13 Active [id number] Problem Post-traumatic stress disorder, chronic F43.12 Active 08791998 Problem Confusion R41.0 Active 284060862 Problem Memory change R41.3 Active 750790838 Problem Dizziness R42 Active 319219125 ALLERGIES No Information ENCOUNTERS Encounter Location Date Diagnosis [facility] [address] [facility] [id number] [address] Jan, [facility] [address] [address] Dec, [facility] [address] [address] Dec, [facility] [id number] [place] [address] 65870- 6769 Nov, [facility] [address] [address] Nov, [facility] [id number] [place] [address] 98946- 2566 Nov, [facility] [address] [address] Oct, Bipolar disorder, in partial remission, most recent episode mixed F31.77 [facility] [address], [place] [address] Oct, Sc[facility]ies B86 [facility] [id number] [place] [address] 82882- 1893 Oct, Bipolar disorder, in partial remission, most recent episode mixed F31.77 [facility] [id number] [place] [address] 58317- 8164 Oct, [facility] [id number] [place] [address] 70038- 0704 Oct, Bipolar II disorder F31.81 and Post-traumatic stress disorder, chronic F43.12 [facility] [address] [address] Oct, [facility] [address] [address] 9[address] Oct, [facility] [id number] [place] [address] 33907- 2541 September, Bipolar II disorder F31.81 and Post-traumatic stress disorder, chronic F43.12 [facility] [id number] [place] [address] 61772- 6468 September, Bipolar disorder, in partial remission, most recent episode mixed F31.77 [facility] [address] [address] September, COPD exacerbation J44.1 and Elevated blood pressure reading R03.0 [place] [id number] [place] [address] 18415- 8878 September, [place] [address] [address]- [address] September, Pain in left ankle and joints of left foot M25.572 ; Dermatitis L30.9 and Other chronic pain G89.29 [place] [address] 39321- 6877 Aug, Right elbow pain M25.521 and Elevated blood pressure reading R03.0 [place] [id number] [place] [address] 89838- 0905 Aug, Bipolar disorder, current episode mixed, mild F31.61 and BMI 40.0-44.9, adult Z68.41 [place] [address] 21623- 9923 Aug, [place] [address] 05977- 3681 Aug, Bipolar II disorder F31.81 and Post-traumatic stress disorder, chronic F43.12 [place] [id number] [place] [address] 77665- 0039 Jul, Elevated blood pressure reading R03.0 [place] [id number] [place] [address] 39533- 5514 Jul, Bipolar II disorder F31.81 and Post-traumatic stress disorder, chronic F43.12 [place] [id number] [place] [address] 34083- 9224 Jul, Bipolar disorder, current episode mixed, mild F31.61 [facility] [id number] [place] [address] 24391 -7661 Jul, Right foot pain M79.671 ; Allergic contact dermatitis, unspecified trigger L23.9 ; Contusion of right foot, initial encounter S90.31XA and BMI 40.0-44.9, adult Z68.41 [facility] [address] [address] Jul, 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 [facility] [id number] [place] [address] 69327- 4929 22 Jul, 2017 [facility] [id number] [place] [address] 49404- 5955 15 Jul, 2017 Bipolar disorder, current episode mixed, mild F31.61 [place] [id number] [place] [address] 43491- 9058 15 Jul, 2017 Bipolar II disorder F31.81 ; Post-traumatic stress disorder , chronic F43.12 and Memory change R41.3 [place] [id number] [place] [address] 94309- 2240 14 Jul, 2017 Elevated blood pressure reading R03.0 ; Chronic obstructive pulmonary disease, unspecified COPD type J44.9 ; Long-term use of high-risk medication Z79.899 and Cognitive decline R41.89 [place] [address] [address]- 9983 06 Jul, 2017 Elevated blood pressure reading R03.0 [place] [id number] [place] [address] 06601- 0859 05 Jul, 2017 [place] [id number] [place] [address] 17019- 6925 01 Jul, 2017 Bipolar II disorder F31.81 ; Post-traumatic stress disorder , chronic F43.12 and Memory change R41.3 [place] [address] [address] 59[address] Jun, [place] [id number] [place] [address] 85823- 0725 Jun, Bipolar II disorder F31.81 ; Post-traumatic stress disorder , chronic F43.12 and Memory change R41.3 [place] [id number] [place] [address] 50794- 5673 Jun, Localized swelling, mass or lump of neck R22.1 ; Slow transit constipation K59.01 and Elevated blood pressure reading R03.0 [place] [id number] [place] [address] 15630- 6695 Jun, [place] [id number] [place] [address] 89505- 6375 Jun, Bipolar affective disorder, currently manic, mild F31.11 [facility] [id number] [place] [address] 88308 -9614 May, [facility] [place] [id number] [place] [address] 79262 -8316 May, [place] [id number] [place] [address] 96209- 2193 13 May, 2017 Bipolar II disorder F31.81 ; Post-traumatic stress disorder , chronic F43.12 and Memory change R41.3 [place] [id number] [place] [address] 35333- 0170 May, [place] [id number] [place] [address] 29972- 2988 May, [place] [id number] [place] [address] 42634- 6361 May, Bipolar affective disorder, currently manic, mild F31.11 [place] [id number] [place] [address] 56435- 8247 May, [facility] [id number] [place] [address] 41789 -7170 May, Localized swelling, mass or lump of neck R22.1 and Localized swelling, mass and lump, head R22.0 [place] [id number] [place] [address] 43101- 3494 Apr, [place] [id number] [place] [address] 26920- 5112 08 Apr, 2017 Bipolar affective disorder, currently manic, mild F31.11 [facility] [id number] [place] [address] 47523- 4266 Apr, Bipolar II disorder F31.81 [facility] [id number] [place] [address] 32230- 2603 Apr, [facility] [id number] [place] [address] 517708- 0600 Apr, Bipolar affective disorder, currently manic, mild F31.11 [facility] [id number] [place] [address] 35724- 7545 Apr, Actinic keratosis L57.0 [facility] [id number] [place] [address] 26080- 0634 Apr, Bipolar affective disorder, currently manic, mild F31.11 [facility] [id number] [place] [address] 28740- 0393 Apr, [facility] [id number] [place] [address] 92173 -7968 Mar, Allergic contact dermatitis, unspecified trigger L23.9 and Right leg pain M79.604 [facility] [address], [place] [address] 3217 Mar, [facility] [id number] [place] [address] 17228- 9841 Mar, Bipolar II disorder F31.81 ; Post-traumatic stress disorder , chronic F43.12 and Memory change R41.3 [facility] [id number] [place] [address] 72598- 3160 Mar, Actinic keratosis L57.0 [facility] [id number] [place] [address] 85930- 1393 Jan, Bipolar II disorder F31.81 ; Post-traumatic stress disorder , chronic F43.12 and Memory change R41.3 [place] [address] [address]- 0940 28 Jan, 2017 Bipolar affective disorder, currently manic, mild F31.11 [facility] [address], [place] [address]- 9785 13 Jan, 2017 Bipolar affective disorder, currently manic, mild F31.11 [facility] [id number] [place] [address] 57612- 5532 07 Jan, 2017 Bipolar II disorder F31.81 ; Post-traumatic stress disorder , chronic F43.12 and Memory change R41.3 [facility] [id number] [place] [address] 33261- 4331 Dec, Bipolar II disorder F31.81 ; Post-traumatic stress disorder , chronic F43.12 and Memory change R41.3 [facility] [id number] [place] [address] 06107- 7305 Dec, Bipolar affective disorder, currently manic, mild F31.11 [facility] [address], [place] [address]- 4619 Dec, Bipolar affective disorder, currently manic, mild F31.11 [facility] [address], [place] [address]- 1115 Dec, Post-traumatic stress disorder, chronic F43.12 [facility] [address], [place] [address]- 1431 Dec, Bipolar II disorder F31.81 ; Post-traumatic stress disorder , chronic F43.12 and Memory change R41.3 [facility] [id number] [address]- 1253 Dec, Post-traumatic stress disorder, chronic F43.12 [facility] [id number] [address]- 6190 Nov, [facility] [address], [place] [address]- 7441 Nov, Bipolar II disorder F31.81 ; Post-traumatic stress disorder , chronic F43.12 and Memory change R41.3 [facility] [address], [place] [address]- 4121 Nov, [facility] [id number] [place] [address] 37616- 9206 Nov, Post-traumatic stress disorder, chronic F43.12 and Bipolar II disorder F31.81 [facility] [id number] [place] [address] 65554- 3735 Nov, Actinic keratosis L57.0 [facility] [id number] [place] [address] 09304- 1481 Oct, Bipolar II disorder F31.81 ; Post-traumatic stress disorder , chronic F43.12 and Memory change R41.3 [place] [id number] [place] [address] 91567- 6475 Oct, Post-traumatic stress disorder, chronic F43.12 ; Bipolar II disorder F31.81 and Memory change R41.3 [place] [id number] [place] [address] 46983- 8559 Oct, Bipolar II disorder F31.81 ; Post-traumatic stress disorder , chronic F43.12 and Memory change R41.3 [place] [address], [place] [address]- 2685 Oct, Actinic keratosis L57.0 [facility] [id number] [place] [address] 81212- 4264 September, Bipolar II disorder F31.81 ; Post-traumatic stress disorder , chronic F43.12 and Memory change R41.3 [place] [id number] [place] [address] 09383- 9902 September, Bipolar II disorder F31.81 ; Post-traumatic stress disorder , chronic F43.12 and Memory change R41.3 [place] [id number] [place] [address] 77980- 5746 September, Post-traumatic stress disorder, chronic F43.12 ; Bipolar II disorder F31.81 and Memory change R41.3 [place] [id number] [place] [address]908 Jul, Bipolar II disorder F31.81 ; Post-traumatic stress disorder , chronic F43.12 and Memory change R41.3 [place] [id number] [place] [address] 2987 Jul, Bipolar II disorder F31.81 ; Post-traumatic stress disorder , chronic F43.12 and Memory change R41.3 [place] [id number] [place] Jul, Bipolar II disorder F31.81 ; Post-traumatic stress disorder , chronic F43.12 and Memory change R41.3 [place] [id number] [place] [address] 34592- 6927 Jul, Post-traumatic stress disorder, chronic F43.12 ; Bipolar II disorder F31.81 and Memory change R41.3 [place] [id number] [place] [address] 51022- 8268 Jul, Tear of medial meniscus of right knee, unspecified tear type , unspecified whether old or current tear, initial encounter S83.241A [place] [id number] [place] [address] 08335- 0131 Jul, Bipolar II disorder F31.81 ; Post-traumatic stress disorder , chronic F43.12 and Memory change R41.3 [place] [id number] [place] [address] 85408- 9298 Jul, Shortness of breath R06.02 ; Mixed hyperlipidemia E78.2 and Chronic fatigue R53.82 [place] [id number] [place] [address] 67520- 2657 Jul, Bipolar II disorder F31.81 ; Post-traumatic stress disorder , chronic F43.12 and Memory change R41.3 [facility] [address], [place] [address]- 4814 Jul, [facility] [id number] [place] [address] 23030- 3906 Jun, Bipolar II disorder F31.81 ; Post-traumatic stress disorder , chronic F43.12 and Memory change R41.3 [facility] [id number] [place] [address] 04460- 4878 Jun, Post-traumatic stress disorder, chronic F43.12 ; Bipolar II disorder F31.81 and Memory change R41.3 [facility] [id number] [place] [address] 67614- 3024 Jun, Right anterior knee pain M25.561 ; Shortness of breath R06.02 and Bronchiolitis J21.9 [facility] [id number] [place] [address] 37474- 4803 Jun, [facility] [id number] [place] [address] 32919- 8828 Jun, Bipolar II disorder F31.81 ; Post-traumatic stress disorder , chronic F43.12 and Memory change R41.3 [facility] [address], [place] [address]- 2767 Jun, [facility] [id number] [place] [address] 64233- 9476 Jun, Bipolar II disorder F31.81 ; Post-traumatic stress disorder , chronic F43.12 and Memory change R41.3 [facility] [address], [place] [address]- 1026 May, [facility] [id number] [place] [address] 19307- 0326 May, [facility] [address], [place] [address]- 5465 May, [facility] [id number] [place] [address] 20508- 9690 May, Right anterior knee pain M25.561 ; Cough R05 ; Skin lesion of right arm L98.9 and Lesion of skin of face L98.9 [place] [id number] [place] [address] 20446- 2474 May, [place] [id number] [place] [address] 82953- 4456 May, Post-traumatic stress disorder, chronic F43.12 ; Memory change R41.3 and Bipolar I disorder, most recent episode manic F31.10 [place] [id number] [place] [address] 12459- 4476 May, [place] [id number] [place] [address] 07786- 1183 May, Right anterior knee pain M25.561 [place] [id number] [place] [address] 77413- 6091 May, [place] [id number] [place] [address] 19561- 8221 Apr, Bipolar II disorder F31.81 ; Post-traumatic stress disorder , chronic F43.12 and Memory change R41.3 [place] [id number] [place] [address] 02684- 9111 Apr, Bipolar II disorder F31.81 ; Post-traumatic stress disorder , chronic F43.12 and Memory change R41.3 [place] [id number] [place] [address] 79806- 0027 Apr, Post-traumatic stress disorder, chronic F43.12 ; Bipolar II disorder F31.81 and Memory change R41.3 [place] [id number] [place] [address] 66799- 4779 Mar, Bipolar II disorder F31.81 ; Post-traumatic stress disorder , chronic F43.12 and Memory change R41.3 [place] [id number] [place] [address] 77470- 3939 Mar, Memory change R41.3 ; Confusion R41.0 and Dizziness R42 [facility] [id number] [place] [address] 90794- 3678 05 Mar, 2016 Encounter for immunization Z23 ; Memory change R41.3 and Fatigue, unspecified type R53.83 [facility] [id number] [place] [address] 94982- 0952 Mar, Bipolar II disorder F31.81 ; Post-traumatic stress disorder , chronic F43.12 and Memory change R41.3 [place] [id number] [place] [address] 54362- 0903 Jan, Bipolar II disorder F31.81 ; Post-traumatic stress disorder , chronic F43.12 and Memory change R41.3 [place] [id number] [place] [address] 37352- 8174 Jan, Post-traumatic stress disorder, chronic F43.12 ; Bipolar II disorder F31.81 ; Anxiety disorder, unspecified F41.9 and Memory change R41.3 [place] [id number] [place] [address] 84495- 3700 15 Feb, 2016 Bipolar II disorder F31.81 ; Post-traumatic stress disorder , chronic F43.12 and Memory change R41.3 [place] [id number] [place] [address] 79988- 2192 Dec, Bipolar II disorder F31.81 ; Post-traumatic stress disorder , chronic F43.12 and Memory change R41.3 [place] [id number] [place] [address] 92892- 1172 16 Jan, 2016 Memory loss R41.3 [place] [id number] [place] [address] 83083- 5834 Dec, Bipolar II disorder F31.81 ; Post-traumatic stress disorder , chronic F43.12 and Memory change R41.3 [place] [id number] [place] [address] 72264- 6231 Nov, Bipolar II disorder F31.81 and Post-traumatic stress disorder, chronic F43.12 [facility] [id number] [place] [address] 64228- 8194 Nov, Bipolar II disorder F31.81 ; Post-traumatic stress disorder , chronic F43.12 and Memory change R41.3 [facility] [id number] [place] [address] 21914- 2486 Oct, Post-traumatic stress disorder, chronic F43.12 and Bipolar disorder, unspecified F31.9 [facility] [id number] [place] [address] 66807- 1839 Oct, Bipolar II disorder F31.81 ; Post-traumatic stress disorder , chronic F43.12 and Memory change R41.3 [facility] [id number] [place] [address] [id number] Oct, Dental examination Z01.20 [facility] [id number] [place] [address] 36033- 6674 September, Bipolar II disorder F31.81 ; Post-traumatic stress disorder , chronic F43.12 and Memory change R41.3 [facility] [id number] [place] [address] 87726- 5890 Aug, Bipolar II disorder F31.81 and Post-traumatic stress disorder, chronic F43.12 [facility] [id number] [place] [address] 99064- 1650 Aug, Bipolar II disorder F31.81 and Post-traumatic stress disorder, chronic F43.12 [facility] [address] [address]- 8820 Jul, Bipolar II disorder F31.81 and Post-traumatic stress disorder, chronic F43.12 [facility] [id number] [place] [address] 91225- 7662 Jul, [facility] [id number] [place] [address] 24057- 9559 15 Jul, 2015 [facility] [id number] [place] [address] 32780- 4072 Jul, Post-traumatic stress disorder, chronic F43.12 and Bipolar disorder, unspecified F31.9 [facility] [id number] [place] [address] 65814- 1590 Jun, Bipolar II disorder F31.81 and Post-traumatic stress disorder, chronic F43.12 [facility] [id number] [place] [address] 04813- 7790 Jun, Post-traumatic stress disorder, chronic F43.12 and Bipolar disorder, unspecified F31.9 [place] [id number] [place] [address] 211830- 1293 Jun, [place] [id number] [place] [address] [phone] Jun, Pharyngeal dysphagia R13.13 ; Hoarseness R49.0 and Cough R05 [facility] [id number] [place] [address] [phone] Jun, Post-traumatic stress disorder, chronic F43.12 and Bipolar disorder, unspecified F31.9 [facility] [id number] [place] [address] [phone] May, Cough R05 [place] [id number] [place] [address] [phone] May, Post-traumatic stress disorder, chronic F43.12 and Bipolar disorder, unspecified F31.9 [facility] [id number] [place] [address] [phone] May, Cough R05 [facility] [facility] [id number] [place] [address] 05355- 4983 May, [facility] [id number] [place] [address] [id number] May, Dental examination Z01.20 [facility] [id number] [place] [address] 25554- 8400 15 May, 2015 Bipolar II disorder F31.81 and Post-traumatic stress disorder, chronic F43.12 [facility] [id number] [place] [address] 92564- 7374 May, [place] [id number] [place] [address] 94667- 8637 May, Bipolar II disorder F31.81 and Anxiety disorder, unspecified F41.9 [place] [id number] [place] [address] 52389- 1219 10 May, 2015 Memory change R41.3 and History of renal insufficiency syndrome Z87.448 [place] [id number] [place] [address] 16373- 2954 May, Memory change R41.3 ; Dry mouth R68.2 and History of renal insufficiency syndrome Z87.448 [place] [id number] [place] [address] 90731- 8274 May, Bipolar II disorder F31.81 and Post-traumatic stress disorder, chronic F43.12 [place] [id number] [place] [address] 19929- 6642 Mar, Bipolar disorder, unspecified F31.9 and Generalized anxiety disorder F41.1 [place] [id number] [place] [address] 49323- 3532 Mar, Bipolar II disorder F31.81 [place] [id number] [place] [address] 70082- 5750 Mar, Encounter for immunization Z23 [place] [address] 96577- 4772 Mar, [place] [id number] [place] [address] 50592- 8744 Mar, Bipolar II disorder F31.81 [place] [address] [id number]- 4011 Mar, [facility] [id number] [address] Jan, Bipolar disorder, unspecified 296.80 and Anxiety disorder 300.00 [facility] [id number] [place] [address] 479683- 1902 Jan, [facility] [id number] [place] [address] 729057- 3736 Jan, Bipolar disorder, unspecified 296.80 and Anxiety disorder 300.00 [facility] [id number] [place] [address] 399269- 8792 Dec, Bipolar disorder, unspecified 296.80 and Anxiety disorder 300.00 [facility] [id number] [place] [address] [id number]- [id number] Dec, [facility] [id number] [place] [address] 270435- 6381 Dec, Bipolar disorder, unspecified 296.80 and Anxiety disorder 300.00 [facility] [id number] [place] [address] 303588- 5867 Nov, Bipolar disorder, unspecified 296.80 and Anxiety disorder 300.00 [facility] [id number] [place] [address] 52952- 3888 Oct, Bipolar disorder, unspecified 296.80 and Anxiety disorder 300.00 [facility] [id number] [place] [address] [id number]- 2530 Oct, Anxiety 300.00 and Bipolar disorder, unspecified 296.80 [facility] [id number] [place] [address] [id number]- 0036 September, Bipolar disorder, unspecified 296.80 and Anxiety disorder 300.00 [facility] [id number] [place] [address] [id number]- 2516 September, [facility] [id number] [place] [address] [id number]- [id number] Aug, Cough 786.2 [facility] [place] [facility] [address] [id number] [place] [address]- 9155 Aug, [facility] [place] [facility] [address] [id number] [place] [address]- 1185 Aug, [facility] [place] [facility] [address] [id number] [place] [address]- 3755 Jul, [facility] [place] [facility] [address] [id number] [place] [address]- 3340 Jul, [facility] [place] [facility] [address] [id number] [place] [address]- 4824 Jul, [facility] [place] [facility] [address] [id number] [place] [address]- 9225 Jul, [facility] [place] [facility] [address] [id number] [place] [address]- 2433 Jul, [facility] [place] [facility] [address] [id number] [place] [address]- 7636 Jul, [facility] [place] [facility] [address] [id number] [place] [address]- 0751 Jun, [facility] [place] [facility] [address] [id number] [place] [address]- 1306 Jun, [facility] [place] [facility] [address] [id number] [place] [address]- 3525 Jun, [facility] [place] [facility] [address] [id number] [place] [address]- 3892 Jun, [facility] [place] [facility] [address] [id number] [place] [address]- 5514 May, [facility] [place] [facility] [address] [facility] [id number] [place] 5746 May, [facility] [place] [facility] [address] [facility] [id number] [place] [address]- 9708 May, [facility] [place] [facility] [address] [id number] [place] [address]- 9002 May, [facility] [place] [facility] [address] [id number] [place] [address]- 0777 Apr, [facility] [place] [facility] [address] [id number] [place] [address]- 2357 Apr, [facility] [place] [facility] [address] [id number] [place] [address]- 4824 Mar, [facility] [place] [facility] [address] [id number] [place] [address]- 8650 Mar, [facility] [place] [facility] [address] [id number] [place] [address]- 8378 Mar, [facility] [place] [facility] [address] [id number] [place] [address]- 2744 Mar, [facility] [place] [facility] [address] [id number] [place] [address]- 1154 Mar, [facility] [place] [facility] [address] [id number] [place] [address]- 1203 Mar, [facility] [place] [facility] [address] [id number] [place] [address]- 2378 Jan, [facility] [place] [facility] [address] [id number] [place] [address]- 6387 Jan, [facility] [place] [facility] [address] [id number] [place] [address]- 2541 05 Jan, 2013 [facility] [place] [facility] [address] [id number] [place] [address]- 2386 05 Jan, 2013 [facility] [place] [facility] [address] [id number] [place] [address]- 4627 Jan, [facility] [place] [facility] [address] [id number] [place] [address]- 1014 Jan, 2013 [facility] [place] [facility] [address] [id number] [place] [address]- 3629 Dec, [facility] [place] [facility] [address] [id number] [place] [address]- 7594 Dec, [facility] [place] [facility] [address] [id number] [place] [address]- 4059 Dec, [facility] [place] [facility] [address] [id number] [place] [address]- 3225 Dec, [facility] [place] [facility] [address] [id number] [place] [address]- 9085 Dec, [facility] [place] [facility] [address] [id number] [place] [address]- 1263 Dec, [facility] [place] [facility] [address] [id number] [place] [address]- 7414 Nov, [facility] [place] [facility] [address] [id number] [place] [address]- 2572 Nov, [facility] [place] [facility] [address] [id number] [place] [address]- 4382 Nov, [facility] [place] [facility] [address] [id number] [place] [address]- 0461 Nov, [facility] [place] [facility] [address] [id number] [place] [address]- 0236 Nov, [facility] [place] [facility] [address] [id number] [place] [address]- 1842 Nov, [facility] [place] [facility] [address] [id number] [place] [address]- 6921 Nov, [facility] [place] [facility] [address] [id number] [place] [address]- 5505 Nov, [facility] [place] [facility] [address] [id number] [place] [address]- 8329 Nov, [facility] [place] [facility] [address] [id number] [place] [address]- 5462 Nov, [facility] [place] [facility] [address] [id number] [place] [address]- 1143 September, [facility] [place] [facility] [address] [id number] [place] [address]- 7609 September, [facility] [place] [facility] [address] [id number] [place] [address]- 6458 September, [facility] [place] [facility] [address] [id number] [place] [address]- 4125 September, [facility] [place] [facility] [address] [id number] [place] [address]- 0174 September, [facility] [place] [facility] [address] [id number] [place] [address]- 9003 September, [facility] [place] [facility] [address] [id number] [place] [address]- 1913 September, [facility] [place] [facility] [address] [id number] [place] [address]- 2596 September, [facility] [place] [facility] [address] [id number] [place] [address]- 3633 Aug, [facility] [place] [facility] [address] [id number] [place] [address]- 7102 Aug, [facility] [place] [facility] [address] [id number] [place] [address]- 0380 Aug, [facility] [place] [facility] [address] [id number] [place] [address]- 2652 Aug, [facility] [place] [facility] [address] [id number] [place] [address]- 7953 Jul, [facility] [place] [facility] [address] [id number] [place] [address]- 2952 Jul, [facility] [place] [facility] [address] [id number] [place] [address]- 8433 Jul, [facility] [place] [facility] [address] [id number] [place] [address]- 6946 Jul, [facility] [place] [facility] [address] [id number] [place] [address]- 8877 18 Jul, 2013 [facility] [place] [facility] [address] [id number] [place] [address]- 6666 Jul, [facility] [place] [facility] [address] [id number] [place] [address]- 5346 Jul, [facility] [place] [facility] [address] [id number] [place] [address]- 3972 Jul, [facility] [place] [facility] [address] [id number] [place] [address]- 5476 Jul, [facility] [place] [facility] [address] [id number] [place] [address]- 7194 Jul, [facility] [place] [facility] [address] [facility] [id number] [place] [address]- 3588 Jul, [facility] [place] [facility] [address] [id number] [place] [address]- 9304 Jun, [facility] [place] [facility] [address] [id number] [place] [address]- 9307 Jun, [facility] [place] [facility] [address] [facility] [id number] [place] [address]- 3678 Jun, [facility] [place] [facility] [address] [facility] [id number] [place] [address]- 0503 Jun, [facility] [place] [facility] [address] [id number] [address]- 0541 May, [facility] [place] [facility] [address] [id number] [place] [address]- 2822 May, [facility] [place] [facility] [address] [id number] [place] [address]- 6176 Apr, [facility] [place] [facility] [address] [id number], [place] [address]- 4742 Apr, [facility] [place] [facility] [address] [id number], [place] [address]- 0405 Apr, [facility] [place] [facility] [address] [id number] [place] [address]- 2963 Apr, [facility] [place] [facility] [address] [id number] [place] [address]- 4403 Apr, [facility] [place] [facility] [address] [id number] [place] [address]- 7709 Apr, [facility] [place] [facility] [address] [id number] [place] [address]- 7427 Apr, [facility] [place] [facility] [address] [id number] [place] [address]- 7520 Apr, [facility] [place] [facility] [address] [id number] [place] [address]- 3205 Apr, [facility] [place] [facility] [address] [facility] [id number] [place] [address]- 4965 Apr, [facility] [place] [facility] [address] [id number] [place] [address]- 5484 Apr, [facility] [place] [facility] [address] [id number] [place] [address]- 6977 Apr, [facility] [place] [facility] [address] [facility] [id number] [place] [address]- 5312 Mar, [facility] [place] [facility] [address] [id number], [place] [address]- 3793 Mar, [facility] [place] [facility] [address] [id number], [place] [address]- 8851 Mar, [facility] [place] [facility] [address] [id number] [place] [address]- 5634 Dec, [facility] [place] [facility] [address] [id number] [place] [address]- 2509 Dec, [facility] [place] [facility] [address] [facility] [id number] [place] [address]- 7025 Dec, [facility] [place] [facility] [address] [facility] [id number] [place] [address]- 3908 Oct, [facility] [address] [facility] [id number], [place] [address]- 5117 May, [facility] [address] [facility] [id number][place] [address]- 3094 May, [facility] [address] [facility] [id number], [place] [address]- 9635 May, [facility] [address] [facility] [id number], [place] [address]- 0949 Dec, IMMUNIZATIONS No Known Immunizations SOCIAL HISTORY Never Assessed REASON FOR VISIT f/va Ramirez RN PLAN OF CARE Activity Details Follow Up 4 Weeks Reason: VITAL SIGNS Height 66 in 2017-08-14 Weight 250.3 lbs 2017-08-14 Heart Rate 90 bpm 2017-08-14 Respiratory Rate 20 2017-08-14 BMI 40.40 kg/m2 2017-08-14 Blood pressure systolic 148 mmHg 2017-08-14 Blood pressure diastolic 86 mmHg 2017-08-14 MEDICATIONS Medication Instructions Dosage Frequency Start Date End Date Duration Status Omeprazole 40 mg Orally Once a day 1 capsule 24h May, 90 days Active Multivitamin Gummies Adult Active Triamcinolone Acetonide 0.1 % Externally Twice a day 1 application to affected area 12h Jul, 7 days Active Hydrochlorothiazide 12.5 MG Orally Once a day 1 capsule in the morning 24h 30 day(s) Active Advair Diskus 100-50 MCG/DOSE Inhalation Twice a day 1 puff 12h Active Albuterol Sulfate 108 (90 Base) MCG/ACT Inhalation every 4-6 hrs 1 puff as needed May, Active Loxapine Succinate 5 mg Orally at night 2 capsules Oct, Active Aspirin 81 MG Orally Once a day 1 tablet 24h Active Premarin 0.9 MG Orally Once a day 1 tablet 24h Active Melatonin 5 MG 1 tablet at bedtime as needed with food Active Tramadol HCl 50 MG Orally every 6 hrs 1 tablet as needed 6h Not- Taking Abilify 30 MG Orally Once a day 1 tablet 24h Nov, Active Trazodone HCl 50 MG Orally at night as needed for sleep 0.5-1 tablet Jun, Active Fish Oil 1000 MG Orally Once a day 2 capsule 24h Active Linzess 145 MCG Orally Once a day 1 capsule 24h Jun, Mar, 90 days Active Xanax 0.5 MG Orally Twice a day 1 tablet 12h Active Cymbalta 60 MG Orally Once a day 1 Capsule 24h Active Calcium 600 MG Orally Once a day 1 tablet with meals 24h 30 days Active Vitamin D 2000 UNIT Orally Once a day 1 tablet 24h Active RESULTS No Results PROCEDURES Procedure Date Ordered Result Body Site [facility] VISIT ESTABLISHED PATIENT August 14, 2017 INSTRUCTIONS MEDICATIONS ADMINISTERED No Known Medications [...] Gall Bladder Surgical History Tubalization Hospitalization History [facility] 12/2014 Hospitalization History Obstructive Airway Disease, Mood disorder, cough-[facility] 07/02/15 Hospitalization History Bronchitis- [facility] 06/2016
--- OUTSIDE RECORDS SUMMARY | 2018-02-03 08:51 | XMS REPORT ---
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 Name Role Phone MURIEL OROZCO Unavailable PROBLEMS Type Condition ICD9-CM Code [id number] Code Onset Dates Condition Status SNOMED Code Problem Mixed hyperlipidemia E78.2 Active 685749032 Problem Bipolar affective disorder, currently manic, mild F31.11 Active 428451101 Problem Chronic fatigue R53.82 Active 00650434 Problem COPD exacerbation J44.1 Active 462476273 Problem Other chronic pain G89.29 Active 91859595 Problem Chronic obstructive pulmonary disease, unspecified COPD type J44.9 Active 25455443 Problem Slow transit constipation K59.01 Active 33903877 Problem Bipolar disorder, in partial remission, most recent episode mixed F31.77 Active 77608402 Problem Bipolar disorder, current episode mixed, mild F31.61 Active 663120229 Problem Bipolar II disorder F31.81 Active 40151393 Problem History of renal insufficiency syndrome Z87.448 Active 119884305 Problem Pharyngeal dysphagia R13.13 Active [id number] Problem Post-traumatic stress disorder, chronic F43.12 Active 18295517 Problem Confusion R41.0 Active 633566449 Problem Memory change R41.3 Active 820735639 Problem Dizziness R42 Active 097633332 ALLERGIES Substance Reaction Event Type Date Status Silk tape rash Non Drug Allergy Jul, Active ENCOUNTERS Encounter Location Date Diagnosis [facility] [address] [facility] [id number] [address] Jan, [facility] [address] [facility] [facility] [id number], [place] [address] Dec, [facility] [address] [facility] [facility] [id number], [place] [address] Dec, [facility] [address], [place] [address]46 Nov, [facility] [address] [address] Nov, [facility] [id number] [address]46 Nov, [facility] [address], [place] [address]43 Oct, Bipolar disorder, in partial remission, most recent episode mixed F31.77 [facility] [address] [id number] [address] 2546 Oct, Scabies B86 [facility] [address] [address] Oct, Bipolar disorder, in partial remission, most recent episode mixed F31.77 [facility] [address], [place] [address] 2546 Oct, [facility] [address], [place] [address] 2543 Oct, Bipolar II disorder F31.81 and Post-traumatic stress disorder, chronic F43.12 [facility] [address], [place] [address] 2546 Oct, Scabies B86 [facility] [address], [place] [address] 2546 Oct, [facility] [address], [place] [address] 2546 September, Bipolar II disorder F31.81 and Post-traumatic stress disorder, chronic F43.12 [facility] [address], [place] [address] September, Bipolar disorder, in partial remission, most recent episode mixed F31.77 [facility] [address], [place] [address] 2546 September, COPD exacerbation J44.1 and Elevated blood pressure reading R03.0 [place] [id number] [place] [address]39- 6979 September, [place] [address] [address] September, Pain in left ankle and joints of left foot M25.572 ; Dermatitis L30.9 and Other chronic pain G89.29 [place] [address] [address] Aug, Right elbow pain M25.521 and Elevated blood pressure reading R03.0 [place] [address] [address] 1351 Aug, Bipolar disorder, current episode mixed, mild F31.61 and BMI 40.0-44.9, adult Z68.41 [place] [address] 31987- 4606 Aug, [place] [id number] [place] [address] 43102- 0988 Aug, Bipolar II disorder F31.81 and Post-traumatic stress disorder, chronic F43.12 [place] [id number] [place] [address] 09838- 2650 Jul, Elevated blood pressure reading R03.0 [place] [id number] [place] [address] 36609- 7161 Jul, Bipolar II disorder F31.81 and Post-traumatic stress disorder, chronic F43.12 [place] [id number] [place] [address] 96478- 8294 Jul, Bipolar disorder, current episode mixed, mild F31.61 [facility] [id number] [place] [address] 37969 -6567 Jul, Right foot pain M79.671 ; Allergic contact dermatitis, unspecified trigger L23.9 ; Contusion of right foot, initial encounter S90.31XA and BMI 40.0-44.9, adult Z68.41 [facility] [id number] [place] [address] 83028 -2453 Jul, 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 [facility] [id number] [place] [address] 26431- 1194 22 Jul, 2017 [place] [address] 14386- 1475 15 Jul, 2017 Bipolar disorder, current episode mixed, mild F31.61 [place] [id number] [place] [address] 59622- 3044 15 Jul, 2017 Bipolar II disorder F31.81 ; Post-traumatic stress disorder , chronic F43.12 and Memory change R41.3 [place] [id number] [place] [address] 01472- 7565 14 Jul, 2017 Elevated blood pressure reading R03.0 ; Chronic obstructive pulmonary disease, unspecified COPD type J44.9 ; Long-term use of high-risk medication Z79.899 and Cognitive decline R41.89 [place] [id number] [place] [address] 52500- 3133 06 Jul, 2017 Elevated blood pressure reading R03.0 [place] [id number] [place] [address] 88778- 3194 05 Jul, 2017 [place] [id number] [place] [address] 13839- 0678 01 Jul, 2017 Bipolar II disorder F31.81 ; Post-traumatic stress disorder , chronic F43.12 and Memory change R41.3 [place] [id number] [place] [address] 45764- 3855 Jun, [place] [id number] [place] [address] 48032- 0305 Jun, Bipolar II disorder F31.81 ; Post-traumatic stress disorder , chronic F43.12 and Memory change R41.3 [place] [address], [place] [address] Jun, Localized swelling, mass or lump of neck R22.1 ; Slow transit constipation K59.01 and Elevated blood pressure reading R03.0 [place] [address], [place] [address]- 93[address] Jun, [place] [id number] [place] [address] 06332- 5204 Jun, Bipolar affective disorder, currently manic, mild F31.11 [facility] [place] [id number], [place] [address] May, [facility] [place] [id number] [place] [address] 66295 -9388 May, [place] [id number] [place] [address] 70008- 8990 May, Bipolar II disorder F31.81 ; Post-traumatic stress disorder , chronic F43.12 and Memory change R41.3 [place] [address], [place] [address] 2672 May, [place] [id number] [place] [address] 41029- 8179 May, [place] [address], [place] [address] 4629 May, Bipolar affective disorder, currently manic, mild F31.11 [place] [address], [place] [address]- 2904 May, [facility] [place] [id number], [place] [address] May, Localized swelling, mass or lump of neck R22.1 and Localized swelling, mass and lump, head R22.0 [place] [address], [place] [address]- 65[address] Apr, [place] [id number] [place] [address] 64559- 7291 08 Apr, 2017 Bipolar affective disorder, currently manic, mild F31.11 [facility] [id number] [place] [address] 51605- 1043 Apr, Bipolar II disorder F31.81 [facility] [id number] [place] [address] 39029- 1118 Apr, [place] [id number] [place] [address] 670716- 0854 Apr, Bipolar affective disorder, currently manic, mild F31.11 [place] [id number] [place] [address] 478085- 0121 Apr, Actinic keratosis L57.0 [place] [id number] [place] [address] 82729- 2852 Apr, Bipolar affective disorder, currently manic, mild F31.11 [place] [id number] [place] [address] 20510- 4296 Apr, [facility] [id number] [place] [address] 55665 -3913 Mar, Allergic contact dermatitis, unspecified trigger L23.9 and Right leg pain M79.604 [place] [id number] [place] [address] 70435- 5316 Mar, [place] [id number] [place] [address] 208309- 3857 Mar, Bipolar II disorder F31.81 ; Post-traumatic stress disorder , chronic F43.12 and Memory change R41.3 [place] [id number] [place] [address] 18005- 2637 Mar, Actinic keratosis L57.0 [facility] [address] [place] [address] 97172- 9928 Jan, Bipolar II disorder F31.81 ; Post-traumatic stress disorder , chronic F43.12 and Memory change R41.3 [facility] [address], [place] [address]- 9562 28 Jan, 2017 Bipolar affective disorder, currently manic, mild F31.11 [facility] [address] [facility] [id number], [place] [address]- [address] 13 Jan, 2017 Bipolar affective disorder, currently manic, mild F31.11 [facility] [id number] [place] [address] 55422- 6951 07 Jan, 2017 Bipolar II disorder F31.81 ; Post-traumatic stress disorder , chronic F43.12 and Memory change R41.3 [facility] [address] [place] [address] 11130- 6989 Dec, Bipolar II disorder F31.81 ; Post-traumatic stress disorder , chronic F43.12 and Memory change R41.3 [facility] [id number] [place] [address] 56071- 9777 Dec, Bipolar affective disorder, currently manic, mild F31.11 [facility] [id number], [place] [address]- 0096 Dec, Bipolar affective disorder, currently manic, mild F31.11 [facility] [address], [place] [address]- 0014 Dec, Post-traumatic stress disorder, chronic F43.12 [facility] [address], [place] [address]- 1422 Dec, Bipolar II disorder F31.81 ; Post-traumatic stress disorder , chronic F43.12 and Memory change R41.3 [facility] [id number], [place] [address]- 3639 Dec, Post-traumatic stress disorder, chronic F43.12 [facility] [id number], [place] [address]- 7784 Nov, [facility] [id number] [place] [address] 27998- 9126 Nov, Bipolar II disorder F31.81 ; Post-traumatic stress disorder , chronic F43.12 and Memory change R41.3 [facility] [address], [place] [address]- 2718 Nov, [facility] [address], [place] [address]- 9821 Nov, Post-traumatic stress disorder, chronic F43.12 and Bipolar II disorder F31.81 [facility] [id number], [place] [address]- 0977 Nov, Actinic keratosis L57.0 [facility] [address], [place] [address]- 0415 Oct, Bipolar II disorder F31.81 ; Post-traumatic stress disorder , chronic F43.12 and Memory change R41.3 [place] [address], [place] [address]- 9803 Oct, Post-traumatic stress disorder, chronic F43.12 ; Bipolar II disorder F31.81 and Memory change R41.3 [place] [address], [place] [address]- 0353 Oct, Bipolar II disorder F31.81 ; Post-traumatic stress disorder , chronic F43.12 and Memory change R41.3 [facility] [address], [place] [address]- 8088 Oct, Actinic keratosis L57.0 [facility] [id number], [place] [address]- 5215 September, Bipolar II disorder F31.81 ; Post-traumatic stress disorder , chronic F43.12 and Memory change R41.3 [facility] [id number], [place] [address]- 8656 September, Bipolar II disorder F31.81 ; Post-traumatic stress disorder , chronic F43.12 and Memory change R41.3 [facility] [address], [place] [address]- 2456 September, Post-traumatic stress disorder, chronic F43.12 ; Bipolar II disorder F31.81 and Memory change R41.3 [place] [address] [place] [address] Jul, Bipolar II disorder F31.81 ; Post-traumatic stress disorder , chronic F43.12 and Memory change R41.3 [place] [id number] [place] [address] 45031- 7797 Jul, Bipolar II disorder F31.81 ; Post-traumatic stress disorder , chronic F43.12 and Memory change R41.3 [place] [id number] [place] [address] 05831- 5394 Jul, Bipolar II disorder F31.81 ; Post-traumatic stress disorder , chronic F43.12 and Memory change R41.3 [place] [id number] [place] [address] 55210- 7952 Jul, Post-traumatic stress disorder, chronic F43.12 ; Bipolar II disorder F31.81 and Memory change R41.3 [place] [id number] [place] [address] 39135- 7245 Jul, Tear of medial meniscus of right knee, unspecified tear type , unspecified whether old or current tear, initial encounter S83.[address] [place] [id number] [place] [address] 89390- 9750 Jul, Bipolar II disorder F31.81 ; Post-traumatic stress disorder , chronic F43.12 and Memory change R41.3 [place] [id number] [place] [address] 02408- 9962 Jul, Shortness of breath R06.02 ; Mixed hyperlipidemia E78.2 and Chronic fatigue R53.[address] [place] [address] 48605- 4969 Jul, Bipolar II disorder F31.81 ; Post-traumatic stress disorder , chronic F43.12 and Memory change R41.3 [facility] [address] [place] [address] 87085- 6680 Jul, [facility] [id number] [place] [address] 34172838- 7642 Jun, Bipolar II disorder F31.81 ; Post-traumatic stress disorder , chronic F43.12 and Memory change R41.3 [facility] [id number] [place] [address] 75319- 5366 Jun, Post-traumatic stress disorder, chronic F43.12 ; Bipolar II disorder F31.81 and Memory change R41.3 [facility] [id number] [place] [address] 62515- 1280 Jun, Right anterior knee pain M25.561 ; Shortness of breath R06.02 and Bronchiolitis J21.9 [facility] [id number] [place] [address] 35558- 1278 Jun, [facility] [id number] [place] [address] 05289- 0131 Jun, Bipolar II disorder F31.81 ; Post-traumatic stress disorder , chronic F43.12 and Memory change R41.3 [facility] [address] [place] [address] 46951- 0763 Jun, [facility] [id number] [place] [address] 14479- 0283 Jun, Bipolar II disorder F31.81 ; Post-traumatic stress disorder , chronic F43.12 and Memory change R41.3 [facility] [address] [place] [address] 28590- 2400 May, [facility] [id number] [place] [address] 97856- 3625 May, [facility] [id number] [place] [address] 32174- 6509 May, [facility] [address], [place] [address]- 2809 May, Right anterior knee pain M25.561 ; Cough R05 ; Skin lesion of right arm L98.9 and Lesion of skin of face L98.9 [facility] [address] [place] [address] 00341 2546 May, [facility] [id number] [place] [address] 61571- 4546 May, Post-traumatic stress disorder, chronic F43.12 ; Memory change R41.3 and Bipolar I disorder, most recent episode manic F31.10 [place] [id number] [place] [address] 57742- 4956 May, [place] [address] [id number] [place] [address] 83561- 7056 May, Right anterior knee pain M25.561 [facility] [id number] [place] [address] 19972- 0136 May, [facility] [id number] [place] [address] 65890- 1173 Apr, Bipolar II disorder F31.81 ; Post-traumatic stress disorder , chronic F43.12 and Memory change R41.3 [place] [address] [place] [address] 64604- 6016 Apr, Bipolar II disorder F31.81 ; Post-traumatic stress disorder , chronic F43.12 and Memory change R41.3 [facility] [address] [place] [address] 82820- 1397 Apr, Post-traumatic stress disorder, chronic F43.12 ; Bipolar II disorder F31.81 and Memory change R41.3 [facility] [address], [place] [address]- 7406 Mar, Bipolar II disorder F31.81 ; Post-traumatic stress disorder , chronic F43.12 and Memory change R41.3 [place] [address], [place] [address]- 0247 Mar, Memory change R41.3 ; Confusion R41.0 and Dizziness R42 [place] [address] [id number] [place] [address] 73664- 7596 Mar, Memory change R41.3 ; Encounter for immunization Z23 and Fatigue, unspecified type R53.83 [place] [address] [id number] [place] [address] 13462- 6823 Mar, Bipolar II disorder F31.81 ; Post-traumatic stress disorder , chronic F43.12 and Memory change R41.3 [place] [id number] [place] [address] 34687- 9476 Jan, Bipolar II disorder F31.81 ; Post-traumatic stress disorder , chronic F43.12 and Memory change R41.3 [place] [address] [id number] [place] [address] 91500- 4173 Jan, Post-traumatic stress disorder, chronic F43.12 ; Bipolar II disorder F31.81 ; Anxiety disorder, unspecified F41.9 and Memory change R41.3 [place] [id number] [place] [address] 51282- 4654 Jan, Bipolar II disorder F31.81 ; Post-traumatic stress disorder , chronic F43.12 and Memory change R41.3 [place] [address] [place] [address] 62364- 6785 Dec, Bipolar II disorder F31.81 ; Post-traumatic stress disorder , chronic F43.12 and Memory change R41.3 [place] [address] [place] [address] 28520- 4604 16 Jan, 2016 Memory loss R41.3 [place] [address] [place] [address] 21349- 2624 Dec, Bipolar II disorder F31.81 ; Post-traumatic stress disorder , chronic F43.12 and Memory change R41.3 [place] [address], [place] [address]- 5896 Nov, Bipolar II disorder F31.81 and Post-traumatic stress disorder, chronic F43.12 [facility] [address] [address] 5606 Nov, Bipolar II disorder F31.81 ; Post-traumatic stress disorder , chronic F43.12 and Memory change R41.3 [facility] [address] [place] [address] 98847- 1865 Oct, Post-traumatic stress disorder, chronic F43.12 and Bipolar disorder, unspecified F31.9 [place] [address] [id number] [place] [address] 16197- 0397 Oct, Bipolar II disorder F31.81 ; Post-traumatic stress disorder , chronic F43.12 and Memory change R41.3 [facility] [address] [place] [address] [id number] Oct, Dental examination Z01.20 [facility] [address] [place] [address] 10262- 5608 September, Bipolar II disorder F31.81 ; Post-traumatic stress disorder , chronic F43.12 and Memory change R41.3 [facility] [address], [place] [address]- 1497 Aug, Bipolar II disorder F31.81 and Post-traumatic stress disorder, chronic F43.12 [facility] [address], [place] [address]- 9858 Aug, Bipolar II disorder F31.81 and Post-traumatic stress disorder, chronic F43.12 [facility] [address] [place] [address] 13125- 0784 Jul, Bipolar II disorder F31.81 and Post-traumatic stress disorder, chronic F43.12 [facility] [address], [place] [address]- 3079 Jul, [facility] [id number] [place] [address] 06016- 1896 15 Jul, 2015 [facility] [address] [place] 583646- 8412 Jul, Post-traumatic stress disorder, chronic F43.12 and Bipolar disorder, unspecified F31.9 [facility] [address] [id number] [place] [address] 26900- 1690 Jun, Bipolar II disorder F31.81 and Post-traumatic stress disorder, chronic F43.12 [facility] [address] 11926- 1586 Jun, Post-traumatic stress disorder, chronic F43.12 and Bipolar disorder, unspecified F31.9 [facility] [address] [id number] [place] [address] 50199- 0072 Jun, [place] [address] 78618- 9994 Jun, Pharyngeal dysphagia R13.13 ; Hoarseness R49.0 and Cough R05 [place] [address] [address] [id number] [place] [address] 82084- 3183 Jun, Post-traumatic stress disorder, chronic F43.12 and Bipolar disorder, unspecified F31.9 [facility] [address] [id number] [place] [address] 07612- 2458 May, Cough R05 [facility] [address] [id number] [place] [address] 94298- 5673 May, Post-traumatic stress disorder, chronic F43.12 and Bipolar disorder, unspecified F31.9 [place] [address] [id number] [place] [address] 94651- 7133 May, Cough R05 [facility] [address] [id number] [place] [address] 37505- 9827 May, [facility] [id number] [place] [address] [id number] May, Dental examination Z01.20 [facility] [id number] [place] [address] [phone] 15 May, 2015 Bipolar II disorder F31.81 and Post-traumatic stress disorder, chronic F43.12 [facility] [id number] [place] [address] [phone] 14 May, 2015 [facility] [address] [phone] 14 May, 2015 Bipolar II disorder F31.81 and Anxiety disorder, unspecified F41.9 [place] [id number] [place] [address] [phone] 10 May, 2015 Memory change R41.3 and History of renal insufficiency syndrome Z87.448 [place] [id number] [place] [address] 65373- 6150 03 May, 2015 Memory change R41.3 ; Dry mouth R68.2 and History of renal insufficiency syndrome Z87.448 [place] [id number] [place] [address] 21739- 0444 May, Bipolar II disorder F31.81 and Post-traumatic stress disorder, chronic F43.12 [place] [id number] [place] [address] 33572- 3695 Mar, Bipolar disorder, unspecified F31.9 and Generalized anxiety disorder F41.1 [place] [id number] [place] [address] 25726- 2948 Mar, Bipolar II disorder F31.81 [place] [id number] [place] [address] 26093- 6357 Mar, Encounter for immunization Z23 [place] [id number] [place] [address] 25750- 7056 Mar, [place] [id number] [place] [address] 66916- 1671 Mar, Bipolar II disorder F31.81 [place] [id number] [place] [address] [id number]- 0412 Mar, [facility] [id number] [place] [address] 71634- 9882 Jan, Bipolar disorder, unspecified 296.80 and Anxiety disorder 300.00 [facility] [id number] [place] [address] 54179- 3432 Jan, [facility] [id number] [place] [address] 20521- 0574 Jan, Bipolar disorder, unspecified 296.80 and Anxiety disorder 300.00 [facility] [id number] [place] [address] 36687- 2770 Dec, Bipolar disorder, unspecified 296.80 and Anxiety disorder 300.00 [facility] [id number] [place] [address] 79135- 2268 Dec, [facility] [id number] [place] [address] 68848- 0176 Dec, Bipolar disorder, unspecified 296.80 and Anxiety disorder 300.00 [facility] [id number] [place] [address] 45192- 3797 Nov, Bipolar disorder, unspecified 296.80 and Anxiety disorder 300.00 [facility] [id number] [place] [address] 51174- 3602 Oct, Bipolar disorder, unspecified 296.80 and Anxiety disorder 300.00 [facility] [id number] [place] [address] 76861- 4156 Oct, Anxiety 300.00 and Bipolar disorder, unspecified 296.80 [facility] [id number] [place] [address] 48766- 8705 September, Bipolar disorder, unspecified 296.80 and Anxiety disorder 300.00 [facility] [id number] [place] [address] 93551- 9695 September, [facility] [id number] [place] [address]- 2504 Aug, Cough 786.2 [facility] [address] [id number] [place] [address]- 8386 14 Aug, 2014 [facility] [place] [facility] [address] [id number] [place] [address]- 7446 Aug, [facility] [address] [id number] [place] [address]- 2436 Jul, [facility] [place] [facility] [address] [id number] [place] [address]- 6201 Jul, [facility] [address] [id number] [place] [address]- 6184 Jul, [facility] [address] [facility] [id number] [place] [address]- 5243 Jul, [facility] [address] [facility] [id number] [place] [address]- 8559 Jul, [facility] [address] [id number] [place] [address]- 4681 Jul, [facility] [id number] [place] [address]- 4781 Jun, [facility] [address] [facility] [id number] [place] [address]- 8265 Jun, [facility] [place] [facility] [address] [id number] [place] [address] 1936 Jun, [facility] [address] [id number] [place] [address]- 9346 Jun, [facility] [place] [facility] [address] [id number] [place] [address]- 2156 May, [facility] [place] [facility] [address] [facility] [id number] [place] [address]- 2526 May, [facility] [place] [facility] [address] [facility] [id number] [place] [address]- 1230 May, [facility] [place] [facility] [address] [id number] [place] 7345 May, [facility] [place] [facility] [address] [id number] [place] [address]- 4335 Apr, [facility] [place] [facility] [address] [id number] [place] 5136 Apr, [facility] [place] [facility] [address] [id number] [place] [address]- 5230 Mar, [facility] [place] [facility] [address] [id number] [place] 3489 Mar, [facility] [place] [facility] [address] [id number] [place] [address]- 4558 Mar, [facility] [place] [facility] [address] [id number] [place] [address]- 4461 Mar, [facility] [place] [facility] [address] [id number] [place] [address]- 2011 Mar, [facility] [place] [facility] [address] [id number] [place] [address]- 9167 Mar, [facility] [place] [facility] [address] [id number] [place] [address]- 3621 Jan, [facility] [place] [facility] [address] [id number] [place] [address]- 1957 Jan, [facility] [place] [facility] [address] [id number], [place] [address]- 0393 05 Sep, 2013 [facility] [place] [facility] [address] [id number] [place] [address]- 4036 05 Sep, 2013 [facility] [place] [facility] [address] [id number] [place] [address]- 2088 Jan, [facility] [place] [facility] [address] [id number] [place] 0656 Jan, 2013 [facility] [place] [facility] [address] [id number] [place] [address]- 5305 Dec, [facility] [place] [facility] [address] [id number] [place] [address]- 7826 Dec, [facility] [place] [facility] [address] [id number] [place] [address]- 5237 Dec, [facility] [place] [facility] [address] [id number] [place] [address]- 4774 Dec, [facility] [place] [facility] [address] [id number] [place] [address]- 6804 Dec, [facility] [place] [facility] [address] [id number] [place] [address]- 4114 Dec, [facility] [place] [facility] [address] [id number] [place] [address]- 9725 Nov, [facility] [place] [facility] [address] [id number] [place] [address]- 6135 Nov, [facility] [place] [facility] [address] [id number] [place] [address]- 1139 Nov, [facility] [place] [facility] [address] [id number] [place] [address]- 3378 Nov, [facility] [place] [facility] [address] [id number] [place] [address]- 2556 Nov, [facility] [place] [facility] [address] [id number] [place] [address]- 7551 Nov, [facility] [place] [facility] [address] [id number] [place] [address]- 7884 Nov, [facility] [place] [facility] [address] [id number] [place] [address]- 5600 Nov, [facility] [place] [facility] [address] [id number] [place] [address]- 1700 Nov, [facility] [place] [facility] [address] [id number] [place] [address]- 8464 Nov, [facility] [place] [facility] [address] [id number] [place] [address]- 1955 September, [facility] [place] [facility] [address] [id number] [place] [address]- 1719 September, [facility] [place] [facility] [address] [id number] [place] [address]- 0720 September, [facility] [place] [facility] [address] [id number] [place] [address]- 9217 September, [facility] [place] [facility] [address] [id number] [place] [address]- 2734 September, [facility] [place] [facility] [address] [id number] [place] [address]- 1868 September, [facility] [place] [facility] [address] [id number] [place] [address]- 5446 September, [facility] [place] [facility] [address] [id number] [place] [address]- 5553 September, [facility] [place] [facility] [address] [id number] [place] [address]- 5253 Aug, [facility] [place] [facility] [address] [id number] [place] [address]- 5474 Aug, [facility] [place] [facility] [address] [id number] [place] [address]- 2904 Aug, [facility] [place] [facility] [address] [id number] [place] [address]- 0167 Aug, [facility] [place] [facility] [address] [id number] [place] [address]- 2537 Jul, [facility] [place] [facility] [address] [id number] [place] [address]- 6191 Jul, [facility] [place] [facility] [address] [id number] [place] [address]- 2276 Jul, [facility] [place] [facility] [address] [id number] [place] [address]- 4221 Jul, [facility] [place] [facility] [address] [id number] [place] [address]- 4631 Jul, [facility] [place] [facility] [address] [id number] [place] [address]- 3916 Jul, [facility] [place] [facility] [address] [id number] [place] [address]- 4306 Jul, [facility] [place] [facility] [address] [id number] [place] [address]- 0345 Jul, [facility] [place] [facility] [address] [id number] [place] [address]- 9211 Jul, [facility] [place] [facility] [address] [facility] [id number] [place] [address]- 2095 Jul, [facility] [place] [facility] [address] [facility] [id number] [place] [address]- 5596 Jul, [facility] [place] [facility] [address] [facility] [id number] [place] [address]- 2427 Jun, [facility] [place] [facility] [address] [facility] [id number] [place] [address]- 8853 Jun, [facility] [place] [facility] [address] [facility] [id number] [place] [address]- 7296 Jun, [facility] [place] [facility] [address] [facility] [id number] [place] [address]- 0249 Jun, [facility] [place] [facility] [address] [facility] [id number] [place] [address]- 7861 May, [facility] [place] [facility] [address] [id number] [place] [address]- 0287 May, [facility] [place] [facility] [address] [facility] [id number] [place] [address]- 1937 Apr, [facility] [place] [facility] [address] [facility] [id number] [place] 1957 Apr, [facility] [place] [facility] [address] [id number] [place] [address]- 1892 Apr, [facility] [place] [facility] [address] [id number] [place] [address]- 3994 Apr, [facility] [place] [facility] [address] [id number] [place] [address]- 4829 Apr, [facility] [place] [facility] [address] [id number] [place] [address]- 0431 Apr, [facility] [place] [facility] [address] [id number] [place] [address]- 0891 Apr, [facility] [place] [facility] [address] [id number] [place] [address]- 5221 Apr, [facility] [place] [facility] [address] [id number] [place] [address]- 2048 Apr, [facility] [place] [facility] [address] [id number] [place] [address]- 5543 Apr, [facility] [place] [facility] [address] [id number] [place] [address]- 4689 Apr, [facility] [place] [facility] [address] [id number] [place] [address]- 8115 Apr, [facility] [place] [facility] [address] [id number] [place] [address]- 6136 Mar, [facility] [place] [facility] [address] [id number] [place] [address]- 9917 Mar, [facility] [place] [facility] [address] [id number] [place] [address]- 5057 Mar, [facility] [place] [facility] [address] [id number] [place] [address]- 0570 Dec, [facility] [place] [facility] [address] [id number] [place] [address]- 0789 Dec, [facility] [place] [facility] [address] [id number] [place] [address]- 1117 Dec, [facility] [address] [facility] [id number] [place] [address]- 0555 Oct, [facility] [address] [facility] [id number], [place] [address]- 3426 May, [facility] [address] [facility] [id number], [place] [address]- 8616 May, [facility] [address] [facility] [id number], [place] [address]- 9056 May, [facility] [address] [facility] [id number], [place] [address]- 0378 Dec, IMMUNIZATIONS No Known Immunizations SOCIAL HISTORY Never Assessed REASON FOR VISIT Tripped today, now has right foot, hand/wrist pain JStrasserRN, Rash for a couple weeks PLAN OF CARE Activity Details Follow Up prn Reason: VITAL SIGNS Height 66 in 2017-08-11 Weight 248.0 lbs 2017-08-11 Temperature 97.9 degrees Fahrenheit 2017-08-11 Heart Rate 116 bpm 2017-08-11 Respiratory Rate 20 2017-08-11 BMI 40.02 kg/m2 2017-08-11 Blood pressure systolic 142 mmHg 2017-08-11 Blood pressure diastolic 86 mmHg 2017-08-11 MEDICATIONS Medication Instructions Dosage Frequency Start Date End Date Duration Status Linzess 145 MCG Orally Once a day 1 capsule 24h 10 Jun, 2017 Mar, 90 days Active Tramadol HCl 50 MG Orally every 6 hrs 1 tablet as needed 6h Active Abilify 30 MG Orally Once a day 1 tablet 24h 17 Nov, 2016 30 days Active Multivitamin Gummies Adult Active Triamcinolone Acetonide 0.1 % Externally Twice a day 1 application to affected area 12h Jul, 7 days Active Calcium 600 MG Orally Once a day 1 tablet with meals 24h 30 days Active Cymbalta 60 MG Orally Once a day 1 Capsule 24h 30 days Active Fish Oil 1000 MG Orally Once a day 2 capsule 24h Active Linzess 145 MCG Orally Once a day 1 capsule 24h 9 Nov, 2017 30 days Active Trazodone HCl 50 MG Orally at night as needed for sleep 0.5-1 tablet Jun, 30 days Active Melatonin 5 MG 1 tablet at bedtime as needed with food Active Advair Diskus 100-50 MCG/DOSE Inhalation Twice a day 1 puff 12h Active Albuterol Sulfate 108 (90 Base) MCG/ACT Inhalation every 4-6 hrs 1 puff as needed May, Active Aspirin 81 MG Orally Once a day 1 tablet 24h Active Benztropine Mesylate 1 MG Orally twice a day 1 tablet 12h 30 days Active Hydrochlorothiazide 12.5 MG Orally Once a day 1 capsule in the morning 24h 30 day(s) Active Omeprazole 40 mg Orally Once a day 1 capsule 24h May, 90 days Active Loxapine Succinate 5 MG Orally at night 1 capsule Oct, 30 days Active Premarin 0.9 MG Orally Once a day 1 tablet 24h Active Vitamin D 2000 UNIT Orally Once a day 1 tablet 24h Active Xanax 0.5 MG Orally Twice a day 1 tablet 12h Active RESULTS Name Result Date Reference Range Xray : Foot, Right 3 views (IN HOUSE) 2017-08-11 PROCEDURES Procedure Date Ordered Result Body Site X-RAY EXAM OF FOOT August 11, 2017 [facility] VISIT ESTABLISHED PATIENT August 11, 2017 INSTRUCTIONS MEDICATIONS ADMINISTERED No Known Medications [...] Gall Bladder Surgical History Tubalization Hospitalization History [facility] 12/2014 Hospitalization History Obstructive Airway Disease, Mood disorder, cough-[facility] 07/02/15 Hospitalization History Bronchitis- [facility] 06/2016
--- OUTSIDE RECORDS SUMMARY | 2018-02-03 08:52 | XMS REPORT ---
Author Author MARYSOL CANSECO [facility] Address [address] [place] [address] Care Team Providers [employer] Supervisor Name Role Phone MARYSOL CANSECO Unavailable PROBLEMS Type Condition ICD9-CM Code FMH01-[place] Code Onset Dates Condition Status SNOMED Code Problem Mixed hyperlipidemia E78.2 Active 357998982 Problem Bipolar affective disorder, currently manic, mild F31.11 Active 354971205 Problem Chronic fatigue R53.82 Active 62824107 Problem COPD exacerbation J44.1 Active 312773042 Problem Other chronic pain G89.29 Active 82965736 Problem Chronic obstructive pulmonary disease, unspecified COPD type J44.9 Active 85797145 Problem Slow transit constipation K59.01 Active 48539943 Problem Bipolar disorder, in partial remission, most recent episode mixed F31.77 Active 81316332 Problem Bipolar disorder, current episode mixed, mild F31.61 Active 054987552 Problem Bipolar II disorder F31.81 Active 15249815 Problem History of renal insufficiency syndrome Z87.448 Active 689939280 Problem Pharyngeal dysphagia R13.13 Active [id number] Problem Post-traumatic stress disorder, chronic F43.12 Active 91662356 Problem Confusion R41.0 Active 633427418 Problem Memory change R41.3 Active 898727197 Problem Dizziness R42 Active [id number] ALLERGIES Substance Reaction Event Type Date Status Silk tape rash Non Drug Allergy Jun, Active ENCOUNTERS Encounter Location Date Diagnosis [facility] [address] [id number] [address] Nov, [facility] [id number] [address] Nov, [facility] [address] [id number] [address] 8[address] Oct, [facility] [id number] [place] [address] 27961- 2363 Oct, [facility] [id number] [place] [address] 76494- 2231 Oct, [facility] [id number] [place] [address] 32862- 5420 Oct, Bipolar II disorder F31.81 and Post-traumatic stress disorder, chronic F43.12 [facility] [id number] [place] [address] 89230 -7235 Oct, [facility] [address] [place] [id number] [place] [address] 69041- 3470 Oct, [facility] [id number] [place] [address] 50681- 3075 September, Bipolar II disorder F31.81 and Post-traumatic stress disorder, chronic F43.12 [place] [address] 34319- 9952 September, Bipolar disorder, in partial remission, most recent episode mixed F31.77 [place] [id number] [place] [address] 55346- 6859 September, COPD exacerbation J44.1 and Elevated blood pressure reading R03.0 [facility] [id number] [place] [address] 65780- 0005 September, [place] [address] 97416- 4337 September, Pain in left ankle and joints of left foot M25.572 ; Dermatitis L30.9 and Other chronic pain G89.29 [place] [address] 68691- 8726 Aug, Right elbow pain M25.521 and Elevated blood pressure reading R03.0 [place] [id number] [place] [address] 08032- 1271 Aug, Bipolar disorder, current episode mixed, mild F31.61 and BMI 40.0-44.9, adult Z68.41 [facility] [id number] [place] [address] 23254- 9527 Aug, [facility] [id number] [place] [address] 97733- 1557 Aug, Bipolar II disorder F31.81 and Post-traumatic stress disorder, chronic F43.12 [place] [address] 57487- 2556 Jul, Elevated blood pressure reading R03.0 [place] [address] 95770- 3383 Jul, Bipolar II disorder F31.81 and Post-traumatic stress disorder, chronic F43.12 [facility] [id number] [place] [address] 15504- 3731 Jul, Bipolar disorder, current episode mixed, mild F31.61 [facility] [id number] [place] [address] 87572 -4241 Jul, Right foot pain M79.671 ; Allergic contact dermatitis, unspecified trigger L23.9 ; Contusion of right foot, initial encounter S90.31XA and BMI 40.0-44.9, adult Z68.41 [facility] [place] [id number] [place] [address] 34646 -3402 Jul, 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 [place] [id number] [place] [address] 56116- 4118 Jul, [facility] [id number] [place] [address] 54733- 0574 Jul, Bipolar disorder, current episode mixed, mild F31.61 [facility] [id number] [place] [address] 89076- 8948 Jul, Bipolar II disorder F31.81 ; Post-traumatic stress disorder , chronic F43.12 and Memory change R41.3 [place] [address] [place] [address] 56733- 3873 14 Jul, 2017 Elevated blood pressure reading R03.0 ; Chronic obstructive pulmonary disease, unspecified COPD type J44.9 ; Long-term use of high-risk medication Z79.899 and Cognitive decline R41.89 [place] [id number] [place] [address] 51259- 5936 06 Jul, 2017 Elevated blood pressure reading R03.0 [facility] [id number] [place] [address] 72269- 1173 05 Jul, 2017 [place] [id number] [place] [address] 79132- 6361 01 Jul, 2017 Bipolar II disorder F31.81 ; Post-traumatic stress disorder , chronic F43.12 and Memory change R41.3 [place] [id number] [place] [address] 19981- 7307 18 Jun, 2017 [place] [id number] [place] [address] 84180- 1669 18 Jun, 2017 Bipolar II disorder F31.81 ; Post-traumatic stress disorder , chronic F43.12 and Memory change R41.3 [place] [id number] [place] [address] 94274- 8378 10 Jun, 2017 Localized swelling, mass or lump of neck R22.1 ; Slow transit constipation K59.01 and Elevated blood pressure reading R03.0 [place] [id number] [place] [address] 49804- 1412 Jun, [place] [id number] [place] [address] 64670- 7568 Jun, Bipolar affective disorder, currently manic, mild F31.11 [facility] [id number] [place] [address] 71765 -5677 May, [facility] [id number] [place] [address] 43531 -6518 14 May, 2017 [facility] [address] [place] [address] 62755- 2262 May, Bipolar II disorder F31.81 ; Post-traumatic stress disorder , chronic F43.12 and Memory change R41.3 [facility] [address] [place] [address] 50533- 1588 May, [facility] [id number] [place] [address] 63329- 7067 May, [facility] [id number] [place] [address] 86062- 0846 May, Bipolar affective disorder, currently manic, mild F31.11 [facility] [id number] [place] [address] 61609- 2804 May, [facility] [id number] [place] [address] 22578 -3147 May, Localized swelling, mass or lump of neck R22.1 and Localized swelling, mass and lump, head R22.0 [facility] [address] [place] [address] 24875- 8967 Apr, [facility] [address] [place] [address] 59775- 5916 Apr, Bipolar affective disorder, currently manic, mild F31.11 [facility] [address] [place] [address] 35378- 9916 Apr, Bipolar II disorder F31.81 [facility] [address], [place] [address]- 1526 Apr, [facility] [id number] [place] [address] 02769- 5365 Apr, Bipolar affective disorder, currently manic, mild F31.11 [facility] [address], [place] [address]- 3535 Apr, Actinic keratosis L57.0 [facility] [address], [place] [address]- 6227 06 Apr, 2017 Bipolar affective disorder, currently manic, mild F31.11 [facility] [address] [place] [address] 02543- 6846 Apr, [facility] [address] [place] [address] 66143 -9270 Mar, Allergic contact dermatitis, unspecified trigger L23.9 and Right leg pain M79.604 [facility] [id number] [place] [address] 75483- 6910 Mar, [place] [id number] [place] [address] 23341- 9682 Mar, Bipolar II disorder F31.81 ; Post-traumatic stress disorder , chronic F43.12 and Memory change R41.3 [place] [id number] [place] [address] 60405- 1267 Mar, Actinic keratosis L57.0 [facility] [address] [place] [address] 29528- 0911 28 Jan, 2017 Bipolar II disorder F31.81 ; Post-traumatic stress disorder , chronic F43.12 and Memory change R41.3 [place] [address] [place] [address] 07715- 2170 28 Jan, 2017 Bipolar affective disorder, currently manic, mild F31.11 [facility] [address] [place] [address] 83526- 7605 13 Jan, 2017 Bipolar affective disorder, currently manic, mild F31.11 [place] [id number] [place] [address] 37164- 7343 07 Jan, 2017 Bipolar II disorder F31.81 ; Post-traumatic stress disorder , chronic F43.12 and Memory change R41.3 [place] [address] [place] [address] 20977- 6618 24 Aug, 2017 Bipolar II disorder F31.81 ; Post-traumatic stress disorder , chronic F43.12 and Memory change R41.3 [facility] [address] [place] [address] 120276 Dec, Bipolar affective disorder, currently manic, mild F31.11 [facility] [address], [place] [address]- 0816 Dec, Bipolar affective disorder, currently manic, mild F31.11 [facility] [id number] [place] [address] 45033- 1326 Dec, Post-traumatic stress disorder, chronic F43.12 [facility] [id number] [place] [address] 39936- 6860 Dec, Bipolar II disorder F31.81 ; Post-traumatic stress disorder , chronic F43.12 and Memory change R41.3 [facility] [id number] [place] [address] 89761- 9112 Dec, Post-traumatic stress disorder, chronic F43.12 [facility] [id number] [place] [address] 51065- 9222 Nov, [facility] [id number] [place] [address] 35667- 2101 Nov, Bipolar II disorder F31.81 ; Post-traumatic stress disorder , chronic F43.12 and Memory change R41.3 [facility] [id number] [place] [address] 47154- 7069 Nov, [facility] [id number] [place] [address] 60202496- 7246 Nov, Post-traumatic stress disorder, chronic F43.12 and Bipolar II disorder F31.81 [facility] [address] [place] [address] 44751- 9830 Nov, Actinic keratosis L57.0 [facility] [id number] [place] [address] 46672- 1279 Oct, Bipolar II disorder F31.81 ; Post-traumatic stress disorder , chronic F43.12 and Memory change R41.3 [facility] [address] [place] [address] 52290- 7085 Oct, Post-traumatic stress disorder, chronic F43.12 ; Bipolar II disorder F31.81 and Memory change R41.3 [facility] [id number] [place] [address] 06153- 6652 Oct, Bipolar II disorder F31.81 ; Post-traumatic stress disorder , chronic F43.12 and Memory change R41.3 [facility] [id number] [place] [address] 60504- 4114 Oct, Actinic keratosis L57.0 [facility] [id number] [place] [address] 09398- 8719 September, Bipolar II disorder F31.81 ; Post-traumatic stress disorder , chronic F43.12 and Memory change R41.3 [facility] [address] [place] [address] 96059- 1447 September, Bipolar II disorder F31.81 ; Post-traumatic stress disorder , chronic F43.12 and Memory change R41.3 [facility] [address] [place] [address] 52376- 5942 September, Post-traumatic stress disorder, chronic F43.12 ; Bipolar II disorder F31.81 and Memory change R41.3 [facility] [address] [place] [address] 32546- 3760 Jul, Bipolar II disorder F31.81 ; Post-traumatic stress disorder , chronic F43.12 and Memory change R41.3 [facility] [id number] [place] [address] 82202- 1356 Jul, Bipolar II disorder F31.81 ; Post-traumatic stress disorder , chronic F43.12 and Memory change R41.3 [place] [address] [place] [address] 59317- 2321 Jul, Bipolar II disorder F31.81 ; Post-traumatic stress disorder , chronic F43.12 and Memory change R41.3 [place] [id number] [place] [address]- 3501 Jul, Post-traumatic stress disorder, chronic F43.12 ; Bipolar II disorder F31.81 and Memory change R41.3 [place] [address] 52441- 3863 Jul, Tear of medial meniscus of right knee, unspecified tear type , unspecified whether old or current tear, initial encounter S83.241A [place] [address] 00184- 4822 Jul, Bipolar II disorder F31.81 ; Post-traumatic stress disorder , chronic F43.12 and Memory change R41.3 [place] [address] 13694- 2774 Jul, Shortness of breath R06.02 ; Mixed hyperlipidemia E78.2 and Chronic fatigue R53.82 [place] [id number] [place] [address] 39597- 9181 Jul, Bipolar II disorder F31.81 ; Post-traumatic stress disorder , chronic F43.12 and Memory change R41.3 [place] [id number] [place] [address] 43476- 7183 Jul, [place] [id number] [place] [address] 04671- 6089 Jun, Bipolar II disorder F31.81 ; Post-traumatic stress disorder , chronic F43.12 and Memory change R41.3 [place] [id number] [place] [address] 85535- 4527 Jun, Post-traumatic stress disorder, chronic F43.12 ; Bipolar II disorder F31.81 and Memory change R41.3 [place] [id number] [place] [address] 26395- 7540 Jun, Right anterior knee pain M25.561 ; Shortness of breath R06.02 and Bronchiolitis J21.9 [facility] [id number] [place] [address] 33172- 0531 Jun, [facility] [id number] [place] [address] 67110- 2863 Jun, Bipolar II disorder F31.81 ; Post-traumatic stress disorder , chronic F43.12 and Memory change R41.3 [facility] [id number] [place] [address] 16635- 2194 Jun, [facility] [id number] [place] [address] 99357- 7623 Jun, Bipolar II disorder F31.81 ; Post-traumatic stress disorder , chronic F43.12 and Memory change R41.3 [facility] [id number] [place] [address] 79967- 6307 May, [facility] [id number] [place] [address] 75235- 2018 May, [facility] [id number] [place] [address] 31603- 7693 May, [facility] [address] [place] [address] 09151- 5436 May, Right anterior knee pain M25.561 ; Cough R05 ; Skin lesion of right arm L98.9 and Lesion of skin of face L98.9 [facility] [address] [place] [address] 56953- 6275 May, [facility] [id number] [place] [address] 58479- 0387 May, Post-traumatic stress disorder, chronic F43.12 ; Memory change R41.3 and Bipolar I disorder, most recent episode manic F31.10 [facility] [address] [place] [address] 75680- 1062 May, [facility] [address], [place] [address]- 0517 May, Right anterior knee pain M25.561 [facility] [address] [place] [address] 25503- 6854 May, [place] [address] [place] [address] 33385- 0081 Apr, Bipolar II disorder F31.81 ; Post-traumatic stress disorder , chronic F43.12 and Memory change R41.3 [place] [address] [place] [address] 35292- 0116 Apr, Bipolar II disorder F31.81 ; Post-traumatic stress disorder , chronic F43.12 and Memory change R41.3 [place] [address] [place] [address] 12958- 4690 Apr, Post-traumatic stress disorder, chronic F43.12 ; Bipolar II disorder F31.81 and Memory change R41.3 [place] [address] [place] [address] 77074- 7917 Mar, Bipolar II disorder F31.81 ; Post-traumatic stress disorder , chronic F43.12 and Memory change R41.3 [place] [address] [place] [address] 78285- 2843 Mar, Memory change R41.3 ; Confusion R41.0 and Dizziness R42 [place] [address] [place] [address] 06456- 0443 Mar, Memory change R41.3 ; Encounter for immunization Z23 and Fatigue, unspecified type R53.83 [place] [address] [place] [address] 81291- 9678 Mar, Bipolar II disorder F31.81 ; Post-traumatic stress disorder , chronic F43.12 and Memory change R41.3 [place] [address] [address]- 1126 Jan, Bipolar II disorder F31.81 ; Post-traumatic stress disorder , chronic F43.12 and Memory change R41.3 [facility] [address] [address]- 1874 19 Feb, 2016 Post-traumatic stress disorder, chronic F43.12 ; Bipolar II disorder F31.81 ; Anxiety disorder, unspecified F41.9 and Memory change R41.3 [facility] [id number] [place] [address] 58793- 3986 15 Feb, 2016 Bipolar II disorder F31.81 ; Post-traumatic stress disorder , chronic F43.12 and Memory change R41.3 [facility] [id number] [place] [address] 13070- 0647 Dec, Bipolar II disorder F31.81 ; Post-traumatic stress disorder , chronic F43.12 and Memory change R41.3 [facility] [id number] [place] [address] 01414- 4857 Dec, Memory loss R41.3 [facility] [id number] [place] [address] 95110- 9411 Dec, Bipolar II disorder F31.81 ; Post-traumatic stress disorder , chronic F43.12 and Memory change R41.3 [facility] [address] [place] [address] 97493- 1275 Nov, Bipolar II disorder F31.81 and Post-traumatic stress disorder, chronic F43.12 [facility] [address] [place] [address] 53554- 8005 Nov, Bipolar II disorder F31.81 ; Post-traumatic stress disorder , chronic F43.12 and Memory change R41.3 [facility] [id number] [place] [address] 49542- 3767 Oct, Post-traumatic stress disorder, chronic F43.12 and Bipolar disorder, unspecified F31.9 [facility] [address] [address]- 7950 Oct, Bipolar II disorder F31.81 ; Post-traumatic stress disorder , chronic F43.12 and Memory change R41.3 [facility] [id number] [id number] Oct, Dental examination Z01.20 [facility] [address] [place] [address] [phone]- 8099 September, Bipolar II disorder F31.81 ; Post-traumatic stress disorder , chronic F43.12 and Memory change R41.3 [facility] [address] [place] [address] 53608- 1997 Aug, Bipolar II disorder F31.81 and Post-traumatic stress disorder, chronic F43.12 [facility] [address] [place] [address] 40143- 1371 Aug, Bipolar II disorder F31.81 and Post-traumatic stress disorder, chronic F43.12 [facility] [address] [place] [address] 32970- 8944 Jul, Bipolar II disorder F31.81 and Post-traumatic stress disorder, chronic F43.12 [facility] [address] [address]- 5063 Jul, [facility] [id number] [address] Jul, [facility] [id number] [place] [id number] Jul, Post-traumatic stress disorder, chronic F43.12 and Bipolar disorder, unspecified F31.9 [facility] [id number] [address] Jun, Bipolar II disorder F31.81 and Post-traumatic stress disorder, chronic F43.12 [facility] [id number] [address] Jun, Post-traumatic stress disorder, chronic F43.12 and Bipolar disorder, unspecified F31.9 [facility] [id number] [place] [phone] Jun, [facility] [id number] [place] [phone] Jun, Pharyngeal dysphagia R13.13 ; Hoarseness R49.0 and Cough R05 [place] [address] [address]- [address] Jun, Post-traumatic stress disorder, chronic F43.12 and Bipolar disorder, unspecified F31.9 [place] [address] [place] [id number] [place] [address] 65189- 1540 May, Cough R05 [place] [address] 35627- 8030 30 May, 2015 Post-traumatic stress disorder, chronic F43.12 and Bipolar disorder, unspecified F31.9 [place] [address] 01520- 8988 May, Cough R05 [place] [address] [place] [id number] [place] [address] 02947- 3057 May, [facility] [address] [id number] May, Dental examination Z01.20 [place] [address] [place] [id number] [place] [address] 02620- 0275 15 May, 2015 Bipolar II disorder F31.81 and Post-traumatic stress disorder, chronic F43.12 [place] [address] [place] [id number] [place] [address] 65865- 7379 14 May, 2015 [place] [address] 27827- 8106 14 May, 2015 Bipolar II disorder F31.81 and Anxiety disorder, unspecified F41.9 [place] [address] [place] [id number] [place] [address] 22656- 1828 10 May, 2015 Memory change R41.3 and History of renal insufficiency syndrome Z87.448 [place] [address] [place] [id number] [place] [address] 95773- 3278 May, Memory change R41.3 ; Dry mouth R68.2 and History of renal insufficiency syndrome Z87.448 [facility] [address] [place] [id number] [place] [address] 05524- 7631 May, Bipolar II disorder F31.81 and Post-traumatic stress disorder, chronic F43.12 [place] [address] 02614- 9632 Mar, Bipolar disorder, unspecified F31.9 and Generalized anxiety disorder F41.1 [place] [address] 03921- 6281 Mar, Bipolar II disorder F31.81 [place] [address] 28182- 9559 Mar, Encounter for immunization Z23 [place] [address] 16601- 9716 Mar, [place] [address] 97223- 0174 Mar, Bipolar II disorder F31.81 [place] [address] [place] [id number] [place] [address] 10239- 8404 Mar, [facility] [address] [place] [id number] [place] [address] 49382- 5624 Jan, Bipolar disorder, unspecified 296.80 and Anxiety disorder 300.00 [facility] [address] [place] [id number] [place] [address] 32787- 7622 Jan, [facility] [address] 84120- 0710 Jan, Bipolar disorder, unspecified 296.80 and Anxiety disorder 300.00 [facility] [address] [place] [id number] [place] [address] 19586- 6551 Dec, Bipolar disorder, unspecified 296.80 and Anxiety disorder 300.00 [facility] [address] [address] 6640 Dec, [facility] [address] [place] [id number] [place] [address] 401489- 2549 Dec, Bipolar disorder, unspecified 296.80 and Anxiety disorder 300.00 [facility] [address] [address] Nov, Bipolar disorder, unspecified 296.80 and Anxiety disorder 300.00 [facility] [address] [place] [id number] [place] [address] 771215- 9104 Oct, Bipolar disorder, unspecified 296.80 and Anxiety disorder 300.00 [facility] [address] [place] [id number] [place] [address] 294961- 9209 Oct, Anxiety 300.00 and Bipolar disorder, unspecified 296.80 [facility] [address] [place] [id number] [place] [address] 09428- 4658 September, Bipolar disorder, unspecified 296.80 and Anxiety disorder 300.00 [facility] [address], [place] [address]- 9107 September, [facility] [address] [place] [id number] [place] [address] 334236- 3086 Aug, Cough 786.2 [facility] [address] [address]- 8743 Aug, [facility] [address] 8319 Aug, [facility] [address] 6[address] Jul, [facility] [address] [place] [id number] [place] [address] 34143- 2959 Jul, [facility] [address] [address]- 0970 Jul, [facility] [address] [place] [id number] [address] 0017 Jul, [facility] [address] [id number] [place] [address]- 4447 Jul, [facility] [place] [facility] [address] [id number] [place] [address]- 0599 Jul, [facility] [place] [facility] [address] [id number] [place] [address]- 0143 Jun, [facility] [place] [facility] [address] [id number] [place] [address]- 9127 Jun, [facility] [place] [facility] [address] [id number] [place] [address]- 1464 Jun, [facility] [place] [facility] [address] [id number] [place] [address]- 8747 Jun, [facility] [place] [facility] [address] [id number] [place] [address]- 3197 May, [facility] [place] [facility] [address] [id number] [place] [address]- 2465 May, [facility] [place] [facility] [address] [id number] [place] [address]- 0916 May, [facility] [place] [facility] [address] [id number] [place] [address]- 4268 May, [facility] [place] [facility] [address] [id number] [place] [address]- 5961 Apr, [facility] [place] [facility] [address] [id number] [place] [address]- 5380 Apr, [facility] [place] [facility] [address] [id number] [place] [address]- 1102 Mar, [facility] [place] [facility] [address] [id number] [place] [address]- 5510 Mar, [facility] [place] [facility] [address] [id number] [place] [address]- 6996 Mar, [facility] [place] [facility] [address] [id number] [place] [address]- 8711 Mar, [facility] [place] [facility] [address] [id number] [place] [address]- 8542 Mar, [facility] [place] [facility] [address] [id number] [place] [address]- 5674 Mar, [facility] [place] [facility] [address] [id number] [place] [address]- 7915 Jan, [facility] [place] [facility] [address] [id number] [place] [address]- 3217 Jan, 2013 [facility] [place] [facility] [address] [id number] [place] [address]- 3222 Jan, [facility] [place] [facility] [address] [id number] [place] [address]- 7227 Jan, [facility] [place] [facility] [address] [id number] [place] [address]- 3961 Jan, [facility] [place] [facility] [address] [id number] [place] [address]- 7944 Jan, [facility] [place] [facility] [address] [id number] [place] [address]- 2979 Dec, [facility] [place] [facility] [address] [id number] [place] [address]- 5666 Dec, [facility] [place] [facility] [address] [id number], [place] [address]- 8744 Dec, [facility] [place] [facility] [address] [id number] [place] [address]- 5641 Dec, [facility] [place] [facility] [address] [id number] [place] [address]- 4622 Dec, [facility] [place] [facility] [address] [id number], [place] [address]- 8624 Dec, [facility] [place] [facility] [address] [id number], [place] [address]- 9024 Nov, [facility] [place] [facility] [address] [id number] [place] [address]- 4041 Nov, [facility] [place] [facility] [address] [id number] [place] [address]- 2126 Nov, [facility] [place] [facility] [address] [id number] [place] [address]- 6016 Nov, [facility] [place] [facility] [address] [id number] [place] [address]- 5044 Nov, [facility] [place] [facility] [address] [id number] [place] [address]- 8477 Nov, [facility] [place] [facility] [address] [id number] [place] [address]- 0258 Nov, [facility] [place] [facility] [address] [id number] [place] [address]- 9046 Nov, [facility] [place] [facility] [address] [id number] [place] [address]- 6924 Nov, [facility] [place] [facility] [address] [id number] [place] [address]- 5623 Nov, [facility] [place] [facility] [address] [id number] [place] [address]- 2331 September, [facility] [place] [facility] [address] [id number] [place] [address]- 2256 September, [facility] [place] [facility] [address] [id number] [place] [address]- 5786 September, [facility] [place] [facility] [address] [id number] [place] [address]- 5524 September, [facility] [place] [facility] [address] [id number] [place] [address]- 7763 September, [facility] [place] [facility] [address] [id number] [place] [address]- 5075 September, [facility] [place] [facility] [address] [id number] [place] [address]- 5094 September, [facility] [place] [facility] [address] [id number] [place] [address]- 8174 September, [facility] [place] [facility] [address] [id number] [place] [address]- 6020 Aug, [facility] [place] [facility] [address] [id number] [place] [address]- 6555 Aug, [facility] [place] [facility] [address] [id number] [place] [address]- 7894 Aug, [facility] [place] [facility] [address] [id number] [place] [address]- 8678 Aug, [facility] [place] [facility] [address] [id number] [place] [address]- 5784 Jul, [facility] [place] [facility] [address] [id number] [place] [address]- 0808 Jul, [facility] [place] [facility] [address] [id number] [place] [address]- 2902 Jul, [facility] [place] [facility] [address] [id number] [place] [address]- 8803 Jul, [facility] [place] [facility] [address] [id number] [place] [address]- 1661 Jul, [facility] [place] [facility] [address] [id number], [place] [address]- 8871 Jul, [facility] [place] [facility] [address] [id number] [place] [address]- 3064 Jul, [facility] [place] [facility] [address] [id number] [place] [address]- 1165 Jul, [facility] [place] [facility] [address] [id number] [place] [address]- 2690 Jul, [facility] [place] [facility] [address] [id number], [place] [address]- 2579 Jul, [facility] [address] [id number] [place] [address]- 3497 Jul, [facility] [place] [facility] [address] [id number] [place] [address]- 5010 Jun, [facility] [place] [facility] [address] [id number] [place] [address]- 6148 Jun, [facility] [place] [facility] [address] [id number] [place] [address]- 6842 Jun, [facility] [place] [facility] [address] [id number] [place] [address]- 0643 Jun, [facility] [place] [facility] [address] [id number] [place] [address]- 7963 May, [facility] [address] [id number], [place] [address]- 1018 May, [facility] [place] [facility] [address] [id number] [place] [address]- 8898 Apr, [facility] [address] [id number] [place] [address]- 5055 Apr, [facility] [place] [facility] [address] [id number] [place] [address]- 7828 Apr, [facility] [address] [id number], [place] [address]- 2936 Apr, [facility] [place] [facility] [address] [id number], [place] [address]- 9931 Apr, [facility] [place] [facility] [address] [id number], [place] [address]- 5368 Apr, [facility] [place] [facility] [address] [id number], [place] [address]- 0361 Apr, [facility] [place] [facility] [address] [id number], [place] [address]- 2745 Apr, [facility] [place] [facility] [address] [id number] [place] [address]- 4136 Apr, [facility] [address] [id number] [place] [address]- 7006 Apr, [facility] [address] [id number] [place] [address] 2546 Apr, [facility] [address] [id number] [place] [address]- 8586 Apr, [facility] [address] [id number] [place] [address] 2546 Mar, [facility] [address] [id number] [place] [address]- 4846 Mar, [facility] [address] [id number] [place] [address]- 8136 Mar, [facility] [address] [id number] [place] [address]- 6330 Dec, [facility] [address] [id number] [place] [address]- 7361 Dec, [facility] [address] [id number] [place] [address]- 5456 Dec, [facility] [address] [id number] [place] [address]- 2673 Oct, [facility] [address] [id number], [place] [address]- 0736 May, [facility] [address] [id number], [place] [address] 2546 May, [facility] [address] [id number] [place] 9446 May, [facility] [address] [id number] [place] [address]- 6829 Dec, IMMUNIZATIONS No Known Immunizations SOCIAL HISTORY Never Assessed REASON FOR VISIT Lump on neck on left side x 3 weeks -- ankita temple, needing refill on medications PLAN OF CARE Activity Details Follow Up 4-5 Weeks Reason:BP VITAL SIGNS Height 66 in 2017-06-11 Weight 239.0 lbs 2017-06-11 Temperature 97.4 degrees Fahrenheit 2017-06-11 BMI 38.57 kg/m2 2017-06-11 Blood pressure systolic 146 mmHg 2017-06-11 Blood pressure diastolic 88 mmHg 2017-06-11 MEDICATIONS Medication Instructions Dosage Frequency Start Date End Date Duration Status Fish Oil 1000 MG Orally Once a day 2 capsule 24h Active Linzess 145 MCG Orally Once a day 1 capsule 24h Jun, Mar, 90 days Active Xanax 0.5 MG Orally Twice a day 1 tablet 12h Active Omeprazole 40 mg Orally Once a day 1 capsule 24h May, 90 days Active Calcium 600 MG Orally Once a day 1 tablet with meals 24h 30 days Active Melatonin 5 MG 1 tablet at bedtime as needed with food Active Premarin 0.9 MG Orally Once a day 1 tablet 24h Active Abilify 30 MG Orally Once a day 1 tablet 24h Nov, Active Trazodone HCl 50 MG Orally at night as needed for sleep 0.5-1 tablet Jun, 30 day(s) Active Advair Diskus 100-50 MCG/DOSE Inhalation Twice a day 1 puff 12h Active Cymbalta 60 MG Orally Once a day 1 Capsule 24h Active Benztropine Mesylate 1 MG Orally twice a day 1 tablet 12h Active Vitamin D 2000 UNIT Orally Once a day 1 tablet 24h Active Hydrochlorothiazide 12.5 MG Orally Once a day- start [address] 1 capsule in the morning Jun, 30 day(s) Active Albuterol Sulfate 108 (90 Base) MCG/ACT Inhalation every 4-6 hrs 1 puff as needed May, Active Aspirin 81 MG Orally Once a day 1 tablet 24h Active Loxapine Succinate 5 MG Orally at night 1 capsule Oct, Active Multivitamin Gummies Adult Active Linzess 145 MCG Orally Once a day 1 capsule 24h Nov, 30 days Active RESULTS No Results PROCEDURES Procedure Date Ordered Result [id number] 2017 [facility] VISIT ESTABLISHED PATIENT Jun 11, 2017 KEARA, ROUTINE* Jun 11, 2017 INSTRUCTIONS MEDICATIONS ADMINISTERED No Known [...] Bladder Surgical History Tubalization Hospitalization History [facility] 12/2014 Hospitalization History Obstructive Airway Disease, Mood disorder, cough-[facility] 07/02/15 Hospitalization History Bronchitis- [facility] 06/2016
--- OUTSIDE RECORDS SUMMARY | 2018-02-03 08:53 | XMS REPORT ---
Author Author MURIEL OROZCO Organization [facility] Address [address] [place] [address] Care Team Providers Care Assistant Merchandise Manager Name Role Phone MURIEL OROZCO Unavailable PROBLEMS Type Condition ICD9-CM Code [id number] Code Onset Dates Condition Status SNOMED Code Problem Confusion R41.0 Active 055041587 Problem Mixed hyperlipidemia E78.2 Active 831301870 Problem Dizziness R42 Active 125152931 Problem Other chronic pain G89.29 Active 35857731 Problem Bipolar disorder, current episode mixed, mild F31.61 Active 368245355 Problem Bipolar affective disorder, currently manic, mild F31.11 Active 121154966 Problem Chronic fatigue R53.82 Active 70711366 Problem Chronic obstructive pulmonary disease, unspecified COPD type J44.9 Active 00305664 Problem Slow transit constipation K59.01 Active 54155597 Problem Post-traumatic stress disorder, chronic F43.12 Active 50103369 Problem Memory change R41.3 Active 253812041 Problem History of renal insufficiency syndrome Z87.448 Active 972651965 Problem Bipolar II disorder F31.81 Active 92612981 Problem Pharyngeal dysphagia R13.13 Active [id number] ALLERGIES Substance Reaction Event Type Date Status Silk tape rash Non Drug Allergy Mar, Active ENCOUNTERS Encounter Location Date Diagnosis [facility] [address] [facility] [id number] [address] Oct, [facility] [id number] [address] Oct, [facility] [id number] [address] Oct, [facility] [id number] [address] September, [facility] [id number] [place] [address] 71670- 5517 September, [place] [address] [address] September, Pain in left ankle and joints of left foot M25.572 ; Dermatitis L30.9 and Other chronic pain G89.29 [place] [address] [address]26[address] Aug, Right elbow pain M25.521 and Elevated blood pressure reading R03.0 [place] [address] 7[address] 4217 Aug, Bipolar disorder, current episode mixed, mild F31.61 and BMI 40.0-44.9, adult Z68.41 [place] [address] 74[address]89 Aug, [place] [address] 88[address] 5050 Aug, Bipolar II disorder F31.81 and Post-traumatic stress disorder, chronic F43.12 [place] [address] 28469- 1775 Jul, Elevated blood pressure reading R03.0 [place] [id number] [place] [address] 52111- 7318 Jul, Bipolar II disorder F31.81 and Post-traumatic stress disorder, chronic F43.12 [place] [id number] [place] [address] 14380- 6673 Jul, Bipolar disorder, current episode mixed, mild F31.61 [facility] [id number] [place] [address] 11646 -8567 Jul, Right foot pain M79.671 ; Allergic contact dermatitis, unspecified trigger L23.9 ; Contusion of right foot, initial encounter S90.31XA and BMI 40.0-44.9, adult Z68.41 [facility] [address] [place] [id number] [place] [address] 11179 -6076 Jul, 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 [place] [id number] [place] [address] 91129- 8474 22 Jul, 2017 [place] [id number] [place] [address] 61593- 2197 15 Jul, 2017 Bipolar disorder, current episode mixed, mild F31.61 [place] [id number] [place] [address] 00023- 9646 15 Jul, 2017 Bipolar II disorder F31.81 ; Post-traumatic stress disorder , chronic F43.12 and Memory change R41.3 [place] [id number] [place] [address] 89807- 3923 14 Jul, 2017 Elevated blood pressure reading R03.0 ; Chronic obstructive pulmonary disease, unspecified COPD type J44.9 ; Long-term use of high-risk medication Z79.899 and Cognitive decline R41.89 [place] [id number] [place] [address] 82972- 1022 06 Jul, 2017 Elevated blood pressure reading R03.0 [place] [id number] [place] [address] 84273- 1316 05 Jul, 2017 [place] [id number] [place] [address] 48871- 8874 01 Jul, 2017 Bipolar II disorder F31.81 ; Post-traumatic stress disorder , chronic F43.12 and Memory change R41.3 [place] [id number] [place] [address] 97058- 8481 Jun, [place] [id number] [place] [address] 22585- 8433 Jun, Bipolar II disorder F31.81 ; Post-traumatic stress disorder , chronic F43.12 and Memory change R41.3 [place] [id number] [place] [address] 82516- 9627 Jun, Localized swelling, mass or lump of neck R22.1 ; Slow transit constipation K59.01 and Elevated blood pressure reading R03.0 [place] [id number] [place] [address] 59820- 6188 Jun, [place] [id number] [place] [address] 90810- 5441 Jun, Bipolar affective disorder, currently manic, mild F31.11 [facility] [id number] [place] [address] 94529 -6439 15 May, 2017 [facility] [place] [id number] [place] [address] 52934 -7200 May, [place] [id number] [place] [address] 53263- 5361 May, Bipolar II disorder F31.81 ; Post-traumatic stress disorder , chronic F43.12 and Memory change R41.3 [place] [id number] [place] [address] 61403- 8337 May, [place] [id number] [place] [address] 19617- 2412 May, [place] [id number] [place] [address] 96117- 7988 05 May, 2017 Bipolar affective disorder, currently manic, mild F31.11 [place] [id number] [place] [address] 05882- 0874 May, [facility] [address] [place] [address] 67831 -6046 May, Localized swelling, mass or lump of neck R22.1 and Localized swelling, mass and lump, head R22.0 [place] [address] [place] [address] 42353- 5266 Apr, [place] [id number] [place] [address] 71345- 9945 Apr, Bipolar affective disorder, currently manic, mild F31.11 [facility] [address] [address] 07 Apr, 2017 Bipolar II disorder F31.81 [facility] [id number] [place] [address] 75008- 8413 Apr, [facility] [id number] [place] [address] 35570- 7202 Apr, Bipolar affective disorder, currently manic, mild F31.11 [facility] [id number] [place] [address] 78844- 5294 Apr, Actinic keratosis L57.0 [facility] [id number] [place] [address] 25193- 4566 Apr, Bipolar affective disorder, currently manic, mild F31.11 [facility] [id number] [place] [address] 21760- 8573 Apr, [facility] [id number] [place] [address] 35514 -4662 Mar, Allergic contact dermatitis, unspecified trigger L23.9 and Right leg pain M79.604 [facility] [id number] [place] [address] 69140- 1839 Mar, [facility] [address] [place] [address] 99794- 8941 Mar, Bipolar II disorder F31.81 ; Post-traumatic stress disorder , chronic F43.12 and Memory change R41.3 [facility] [address] [place] [address] 60556- 7289 Mar, Actinic keratosis L57.0 [facility] [id number] [place] [address] 24660- 7091 Jan, Bipolar II disorder F31.81 ; Post-traumatic stress disorder , chronic F43.12 and Memory change R41.3 [facility] [id number] [place] [address] [place] [address]- [address] 28 Jan, 2017 Bipolar affective disorder, currently manic, mild F31.11 [facility] [address], [place] [address]- 1729 13 Jan, 2017 Bipolar affective disorder, currently manic, mild F31.11 [facility] [address], [place] [address] 4036 07 Jan, 2017 Bipolar II disorder F31.81 ; Post-traumatic stress disorder , chronic F43.12 and Memory change R41.3 [facility] [address], [place] [address]- 3823 Dec, Bipolar II disorder F31.81 ; Post-traumatic stress disorder , chronic F43.12 and Memory change R41.3 [facility] [address], [place] [address]- 7691 Dec, Bipolar affective disorder, currently manic, mild F31.11 [facility] [address], [place] [address]- 8928 Dec, Bipolar affective disorder, currently manic, mild F31.11 [facility] [address], [place] [address]- 0783 Dec, Post-traumatic stress disorder, chronic F43.12 [facility] [address], [place] [address]- 4217 Dec, Bipolar II disorder F31.81 ; Post-traumatic stress disorder , chronic F43.12 and Memory change R41.3 [facility] [address], [place] [address]- 2868 Dec, Post-traumatic stress disorder, chronic F43.12 [facility] [address], [place] [address]- 5794 Nov, [facility] [address], [place] [address]- 9918 Nov, Bipolar II disorder F31.81 ; Post-traumatic stress disorder , chronic F43.12 and Memory change R41.3 [facility] [address] [address]- 2048 Nov, [facility] [address] [place] [address] [address] Nov, Post-traumatic stress disorder, chronic F43.12 and Bipolar II disorder F31.81 [facility] [address] [place] [address] 58595- 8654 Nov, Actinic keratosis L57.0 [facility] [address], [place] [address]- 1021 Oct, Bipolar II disorder F31.81 ; Post-traumatic stress disorder , chronic F43.12 and Memory change R41.3 [place] [address], [place] [address]- 2764 Oct, Post-traumatic stress disorder, chronic F43.12 ; Bipolar II disorder F31.81 and Memory change R41.3 [place] [address], [place] [address]- 1231 Oct, Bipolar II disorder F31.81 ; Post-traumatic stress disorder , chronic F43.12 and Memory change R41.3 [facility] [address], [place] [address]- 5396 Oct, Actinic keratosis L57.0 [facility] [address] [place] [address] 17850- 5846 September, Bipolar II disorder F31.81 ; Post-traumatic stress disorder , chronic F43.12 and Memory change R41.3 [facility] [address], [place] [address]- 7107 September, Bipolar II disorder F31.81 ; Post-traumatic stress disorder , chronic F43.12 and Memory change R41.3 [facility] [address] [place] [address] 07116- 2778 September, Post-traumatic stress disorder, chronic F43.12 ; Bipolar II disorder F31.81 and Memory change R41.3 [place] [address] [place] [address] 77443- 4650 Jul, Bipolar II disorder F31.81 ; Post-traumatic stress disorder , chronic F43.12 and Memory change R41.3 [place] [address] [place] [address] 59538- 9474 Jul, Bipolar II disorder F31.81 ; Post-traumatic stress disorder , chronic F43.12 and Memory change R41.3 [place] [address] [place] [address] 34733- 5861 Jul, Bipolar II disorder F31.81 ; Post-traumatic stress disorder , chronic F43.12 and Memory change R41.3 [place] [address] [place] [address] 26946- 8739 Jul, Post-traumatic stress disorder, chronic F43.12 ; Bipolar II disorder F31.81 and Memory change R41.3 [place] [address] [place] [address] 01707- 0434 Jul, Tear of medial meniscus of right knee, unspecified tear type , unspecified whether old or current tear, initial encounter S83.241A [place] [address] [place] [address] 61450- 0132 Jul, Bipolar II disorder F31.81 ; Post-traumatic stress disorder , chronic F43.12 and Memory change R41.3 [place] [address], [place] [address]- 5585 Jul, Shortness of breath R06.02 ; Mixed hyperlipidemia E78.2 and Chronic fatigue R53.82 [place] [address], [place] [address]- 4190 Jul, Bipolar II disorder F31.81 ; Post-traumatic stress disorder , chronic F43.12 and Memory change R41.3 [place] [address], [place] [address]- 5691 Jul, [facility] [id number] [place] [address] 29973- 9550 Jun, Bipolar II disorder F31.81 ; Post-traumatic stress disorder , chronic F43.12 and Memory change R41.3 [facility] [address] [place] [address] 13603- 3756 Jun, Post-traumatic stress disorder, chronic F43.12 ; Bipolar II disorder F31.81 and Memory change R41.3 [facility] [address] [place] [address] 13942- 0964 Jun, Right anterior knee pain M25.561 ; Shortness of breath R06.02 and Bronchiolitis J21.9 [facility] [id number] [place] [address] 93731- 0304 Jun, [facility] [id number] [place] [address] 48367- 4727 Jun, Bipolar II disorder F31.81 ; Post-traumatic stress disorder , chronic F43.12 and Memory change R41.3 [facility] [address] [place] [address] 01048- 7804 Jun, [facility] [address] [place] [address] 61757- 3709 Jun, Bipolar II disorder F31.81 ; Post-traumatic stress disorder , chronic F43.12 and Memory change R41.3 [facility] [address] [place] [address] 53911- 9900 May, [facility] [id number] [place] [address] 65080- 5836 May, [facility] [address] [place] [address] 40709- 4353 May, [facility] [id number] [place] [address] 55814- 9323 May, Right anterior knee pain M25.561 ; Cough R05 ; Skin lesion of right arm L98.9 and Lesion of skin of face L98.9 [facility] [id number] [place] [address] 42867- 8422 May, [facility] [id number] [place] [address] 99756- 1829 May, Post-traumatic stress disorder, chronic F43.12 ; Memory change R41.3 and Bipolar I disorder, most recent episode manic F31.10 [place] [id number] [place] [address] 40859- 0089 May, [place] [id number] [place] [address] 94975- 4957 May, Right anterior knee pain M25.561 [place] [address] [id number] [place] [address] 28788- 6005 May, [place] [id number] [place] [address] 67658- 6007 Apr, Bipolar II disorder F31.81 ; Post-traumatic stress disorder , chronic F43.12 and Memory change R41.3 [place] [id number] [place] [address] 20740- 3691 Apr, Bipolar II disorder F31.81 ; Post-traumatic stress disorder , chronic F43.12 and Memory change R41.3 [place] [id number] [place] [address] 66996- 5335 Apr, Post-traumatic stress disorder, chronic F43.12 ; Bipolar II disorder F31.81 and Memory change R41.3 [place] [id number] [place] [address] 12853- 6060 Mar, Bipolar II disorder F31.81 ; Post-traumatic stress disorder , chronic F43.12 and Memory change R41.3 [place] [id number] [place] [address] 04054- 6926 Mar, Memory change R41.3 ; Confusion R41.0 and Dizziness R42 [facility] [id number] [place] [address] 04016- 7894 Mar, Memory change R41.3 ; Encounter for immunization Z23 and Fatigue, unspecified type R53.83 [facility] [id number] [place] [address] 39837- 1171 Mar, Bipolar II disorder F31.81 ; Post-traumatic stress disorder , chronic F43.12 and Memory change R41.3 [facility] [id number] [place] [address] 80111- 2173 Jan, Bipolar II disorder F31.81 ; Post-traumatic stress disorder , chronic F43.12 and Memory change R41.3 [place] [id number] [place] [address] 16268- 7750 19 Feb, 2016 Post-traumatic stress disorder, chronic F43.12 ; Bipolar II disorder F31.81 ; Anxiety disorder, unspecified F41.9 and Memory change R41.3 [place] [id number] [place] [address] 88141- 6938 15 Feb, 2016 Bipolar II disorder F31.81 ; Post-traumatic stress disorder , chronic F43.12 and Memory change R41.3 [place] [address] [id number] [place] [address] 76484- 1568 Dec, Bipolar II disorder F31.81 ; Post-traumatic stress disorder , chronic F43.12 and Memory change R41.3 [facility] [address] [place] [address] 58115- 9454 16 Jan, 2016 Memory loss R41.3 [place] [id number] [place] [address] 13318- 8690 Dec, Bipolar II disorder F31.81 ; Post-traumatic stress disorder , chronic F43.12 and Memory change R41.3 [facility] [id number] [place] [address] 23612- 0972 Nov, Bipolar II disorder F31.81 and Post-traumatic stress disorder, chronic F43.12 [facility] [address] [place] [address] 13953- 6030 Nov, Bipolar II disorder F31.81 ; Post-traumatic stress disorder , chronic F43.12 and Memory change R41.3 [facility] [address] [place] [address] 79292- 0471 Oct, Post-traumatic stress disorder, chronic F43.12 and Bipolar disorder, unspecified F31.9 [facility] [address] [place] [address] 35082- 4214 Oct, Bipolar II disorder F31.81 ; Post-traumatic stress disorder , chronic F43.12 and Memory change R41.3 [facility] [address] [place] [address] [id number] Oct, Dental examination Z01.20 [facility] [id number] [place] [address] 92598- 1436 September, Bipolar II disorder F31.81 ; Post-traumatic stress disorder , chronic F43.12 and Memory change R41.3 [facility] [address] [place] [address] 57553- 7455 Aug, Bipolar II disorder F31.81 and Post-traumatic stress disorder, chronic F43.12 [facility] [address] [place] [address] 30503- 8966 Aug, Bipolar II disorder F31.81 and Post-traumatic stress disorder, chronic F43.12 [facility] [address] [place] [address]- 2427 Jul, Bipolar II disorder F31.81 and Post-traumatic stress disorder, chronic F43.12 [facility] [address] [place] [address]- 9438 Jul, [facility] [id number] [place] [address] 90855- 6108 Jul, [facility] [id number] [place] [address]- 2846 Jul, Post-traumatic stress disorder, chronic F43.12 and Bipolar disorder, unspecified F31.9 [facility] [id number] [place] [address]- 5330 Jun, Bipolar II disorder F31.81 and Post-traumatic stress disorder, chronic F43.12 [facility] [address] [place] [address]- 099 Jun, Post-traumatic stress disorder, chronic F43.12 and Bipolar disorder, unspecified F31.9 [facility] [address] 546 Jun, [place] [address] 1053 Jun, Pharyngeal dysphagia R13.13 ; Hoarseness R49.0 and Cough R05 [facility] [id number] [place] [address] 078412- 5451 Jun, Post-traumatic stress disorder, chronic F43.12 and Bipolar disorder, unspecified F31.9 [facility] [id number] [place] [address]- [address]997 May, Cough R05 [facility] [address] 303 May, Post-traumatic stress disorder, chronic F43.12 and Bipolar disorder, unspecified F31.9 [facility] [id number] [place] [address] 213665- 8876 May, Cough R05 [facility] [address] [place] [address]- 1539 May, [facility] [address] [id number] May, Dental examination Z01.20 [facility] [address] 99480- 9820 May, Bipolar II disorder F31.81 and Post-traumatic stress disorder, chronic F43.12 [facility] [id number] [place] [address] 34820- 6500 May, [facility] [id number] [place] [address] 24441- 7760 May, Bipolar II disorder F31.81 and Anxiety disorder, unspecified F41.9 [facility] [id number] [place] [address] 36554- 5898 May, Memory change R41.3 and History of renal insufficiency syndrome Z87.448 [place] [id number] [place] [address] 06159- 1586 May, Memory change R41.3 ; Dry mouth R68.2 and History of renal insufficiency syndrome Z87.448 [place] [address] [address]- [address] May, Bipolar II disorder F31.81 and Post-traumatic stress disorder, chronic F43.12 [facility] [id number] [place] [address] 42520- 6897 Mar, Bipolar disorder, unspecified F31.9 and Generalized anxiety disorder F41.1 [facility] [id number] [place] [address] 17273- 2321 Mar, Bipolar II disorder F31.81 [facility] [id number] [place] [address] 10809- 1910 Mar, Encounter for immunization Z23 [facility] [id number] [place] [address] 05053- 9851 Mar, [facility] [id number] [place] [address] 21305- 5160 Mar, Bipolar II disorder F31.81 [facility] [id number] [place] [address] 04678- 9952 Mar, [id number] [address] Jan, Bipolar disorder, unspecified 296.80 and Anxiety disorder 300.00 [facility] [id number], [place] [address] Jan, [facility] [id number] [address] Jan, Bipolar disorder, unspecified 296.80 and Anxiety disorder 300.00 [facility] [id number] [place] [address] Dec, Bipolar disorder, unspecified 296.80 and Anxiety disorder 300.00 [facility] [id number] [place] [address]- 6904 Dec, [facility] [id number] [address] Dec, Bipolar disorder, unspecified 296.80 and Anxiety disorder 300.00 [facility] [id number] [address] Nov, Bipolar disorder, unspecified 296.80 and Anxiety disorder 300.00 [facility] [id number], [place] [address] Oct, Bipolar disorder, unspecified 296.80 and Anxiety disorder 300.00 [facility] [id number], [place] [address] Oct, Anxiety 300.00 and Bipolar disorder, unspecified 296.80 [facility] [id number], [place] [address] September, Bipolar disorder, unspecified 296.80 and Anxiety disorder 300.00 [facility] [id number] [id number] September, [facility] [id number], [place] [address] Aug, Cough 786.2 [facility] [place] [facility] [address] [id number] [place] [address] 14 Aug, 2014 [facility] [place] [facility] [address] [id number] [place] [address] 9785 Aug, [facility] [place] [facility] [address] [id number] [place] [address] Jul, [facility] [place] [facility] [address] [id number] [place] [address] 3422 Jul, [facility] [place] [facility] [address] [id number] [place] [address] 8666 Jul, [facility] [place] [facility] [address] [id number] [place] [address] 7258 Jul, [facility] [place] [facility] [address] [id number] [place] [address]- 7288 Jul, [facility] [place] [facility] [address] [id number] [place] [address]- 1033 Jul, [facility] [place] [facility] [address] [id number] [place] [address]- 4646 Jun, [facility] [place] [facility] [address] [id number] [place] [address]- 8164 Jun, [facility] [place] [facility] [address] [id number] [place] [address]- 6265 Jun, [facility] [place] [facility] [address] [id number] [place] [address] 2619 Jun, [facility] [place] [facility] [address] [id number] [place] [address]- 5491 May, [facility] [place] [facility] [address] [id number] [place] [address] 5162 May, [facility] [place] [facility] [address] [id number] [place] [address]- 4677 May, [facility] [place] [facility] [address] [id number], [place] [address] 6847 May, [facility] [place] [facility] [address] [id number] [place] [address] 3737 Apr, [facility] [place] [facility] [address] [id number] [place] [address] Apr, [facility] [place] [facility] [address] [facility] [id number] [place] [address] 8[address] Mar, [facility] [place] [facility] [address] [id number] [place] [address] Mar, [facility] [place] [facility] [address] [id number] [place] [address]- 0865 Mar, [facility] [place] [facility] [address] [id number] [place] [address] 6519 Mar, [facility] [place] [facility] [address] [id number] [place] [address] 3641 Mar, [facility] [place] [facility] [address] [id number] [place] [address] 4180 Mar, [facility] [place] [facility] [address] [id number] [place] [address]- 5726 Jan, [facility] [place] [facility] [address] [id number] [place] [address]- 2478 Jan, [facility] [place] [facility] [address] [id number], [place] [address] 05 Jan, 2014 [facility] [place] [facility] [address] [id number], [place] [address]26 05 Jan, 2014 [facility] [place] [facility] [address] [id number] [place] [address]- 7575 Jan, [facility] [place] [facility] [address] [id number] [place] [address]- 1062 Jan, [facility] [place] [facility] [address] [id number] [place] [address]- 1322 Dec, [facility] [place] [facility] [address] [id number] [place] [address]- 9254 Dec, [facility] [place] [facility] [address] [id number] [place] [address]- 4018 Dec, [facility] [place] [facility] [address] [id number] [place] [address]- 6326 Dec, [facility] [place] [facility] [address] [id number] [place] [address]- 8177 Dec, [facility] [place] [facility] [address] [id number] [place] [address]- 8699 Dec, [facility] [place] [facility] [address] [id number] [place] [address]- 4788 Nov, [facility] [place] [facility] [address] [id number] [place] [address]- 5920 Nov, [facility] [place] [facility] [address] [id number] [place] [address]- 2079 Nov, [facility] [place] [facility] [address] [id number] [place] [address]- 7221 Nov, [facility] [place] [facility] [address] [id number] [place] [address]- 4719 Nov, [facility] [place] [facility] [address] [id number] [place] [address]- 1098 Nov, [facility] [place] [facility] [address] [id number] [place] [address]- 2760 Nov, [facility] [place] [facility] [address] [id number] [place] [address]- 3239 Nov, [facility] [place] [facility] [address] [id number] [place] [address]- 0562 Nov, [facility] [place] [facility] [address] [id number] [place] [address]- 4466 Nov, [facility] [place] [facility] [address] [id number] [place] [address]- 7182 September, [facility] [address] [id number] [place] [address]- 1453 September, [facility] [place] [facility] [address] [id number] [place] [address]- 7835 September, [facility] [place] [facility] [address] [id number] [place] [address] September, [facility] [place] [facility] [address] [id number] [place] [address]- 6870 September, [facility] [place] [facility] [address] [id number] [place] [address]- 2362 September, [facility] [place] [facility] [address] [id number] [place] [address]- 2960 September, [facility] [place] [facility] [address] [id number] [place] [address]- 4723 September, [facility] [place] [facility] [address] [id number] [place] [address]- 0715 Aug, [facility] [place] [facility] [address] [id number] [place] [address]- 4625 Aug, [facility] [place] [facility] [address] [id number] [place] [address]- 7687 Aug, [facility] [place] [facility] [address] [id number] [place] [address]- 1226 Aug, [facility] [place] [facility] [address] [id number] [place] [address]- 1669 Jul, [facility] [place] [facility] [address] [id number] [place] [address]- 0516 Jul, [facility] [place] [facility] [address] [id number] [place] [address] Jul, [facility] [place] [facility] [address] [id number] [place] [address]- 0634 Jul, [facility] [place] [facility] [address] [id number] [place] [address]- 0493 18 Jul, 2013 [facility] [place] [facility] [address] [id number] [place] [address]- 4546 Jul, [facility] [place] [facility] [address] [id number] [place] [address]- 6276 Jul, [facility] [place] [facility] [address] [id number] [place] [address]- 3576 Jul, [facility] [place] [facility] [address] [id number] [place] [address] 2547 Jul, [facility] [place] [facility] [address] [id number] [place] [address]- 3746 Jul, [facility] [place] [facility] [address] [id number] [place] [address]- 4417 Jul, [facility] [place] [facility] [address] [id number] [place] [address]- 5239 Jun, [facility] [place] [facility] [address] [id number] [place] [address]- 3154 Jun, [facility] [place] [facility] [address] [id number] [place] [address]- 2120 Jun, [facility] [place] [facility] [address] [facility] [id number] [place] [address]- 3261 Jun, [facility] [place] [facility] [address] [id number] [place] [address]- 3116 May, [facility] [place] [facility] [address] [id number] [place] [address] 2547 May, [facility] [place] [facility] [address] [id number] [place] [address]- 1237 Apr, [facility] [place] [facility] [address] [id number] [place] [address]- 0961 Apr, [facility] [place] [facility] [address] [id number] [place] [address] Apr, [facility] [place] [facility] [address] [id number] [place] [address]- 1850 Apr, [facility] [place] [facility] [address] [id number] [place] [address]- 2690 Apr, [facility] [place] [facility] [address] [id number] [place] [address]- 9463 Apr, [facility] [place] [facility] [address] [id number] [place] [address]- 7502 Apr, [facility] [place] [facility] [address] [id number] [place] [address]- 0797 Apr, [facility] [place] [facility] [address] [id number] [place] [address]- 9882 Apr, [facility] [place] [facility] [address] [id number] [place] [address]- 7647 Apr, [facility] [place] [facility] [address] [id number], [place] [address]- 7220 Apr, [facility] [place] [facility] [address] [id number] [place] [address]- 5601 Apr, [facility] [place] [facility] [address] [id number], [place] [address]- 1768 Mar, [facility] [place] [facility] [address] [id number], [place] [address]- 5977 Mar, [facility] [place] [facility] [address] [id number], [place] [address]- 6472 Mar, [facility] [place] [facility] [address] [id number], [place] [address]- 1065 Dec, [facility] [place] [facility] [address] [id number], [place] [address]- 5544 Dec, [facility] [place] [facility] [address] [id number], [place] [address]- 6980 Dec, [facility] [place] [facility] [address] [id number], [place] [address]- [address]902 Oct, [facility] [address] [facility] [id number], [place] [address]- [address]884 May, [facility] [address] [facility] [id number], [place] [address]- 4061 May, [facility] [address] [facility] [id number], [place] [address]- 1142 May, [place] [address] [facility] [id number], [place] [address]- [address]74 Dec, IMMUNIZATIONS No Known Immunizations SOCIAL HISTORY Never Assessed REASON FOR VISIT Right leg painx2 weeks /rash x1 week 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 PLAN OF CARE Activity Details Follow Up prn Reason: VITAL SIGNS Height 66 in 2017-04-01 Weight 228.4 lbs 2017-04-01 Temperature 97.4 degrees Fahrenheit 2017-04-01 Heart Rate 74 bpm 2017-04-01 Respiratory Rate 18 2017-04-01 BMI 36.86 kg/m2 2017-04-01 Blood pressure systolic 140 mmHg 2017-04-01 Blood pressure diastolic 94 mmHg 2017-04-01 MEDICATIONS Medication Instructions Dosage Frequency Start Date End Date Duration Status PredniSONE 20 MG Orally Once a day 2 tablet 24h Mar, Apr, 5 days Active Advair Diskus 100-50 MCG/DOSE Inhalation Twice a day 1 puff 12h Active Aspirin 81 MG Orally Once a day 1 tablet 24h Active Albuterol Sulfate 108 (90 Base) MCG/ACT Inhalation every 4-6 hrs 1 puff as needed May, Active Fish Oil 1000 MG Orally Once a day 2 capsule 24h Active Benztropine Mesylate 1 MG Orally twice a day 1 tablet 12h Active Cymbalta 60 MG Orally Once a day 1 Capsule 24h Active Vitamin D 2000 UNIT Orally Once a day 1 tablet 24h Active Nexium 40MG TAKE 1 CAPSULE DAILY Active Topamax 50 MG Orally Twice a day for 2 weeks then once a day for two weeks then stop med-part of taper schedule 1 tablet Apr, 30 days Active Naproxen 500 MG Orally every 12 hrs 1 tablet with food or milk as needed 12h Mar, Apr, 14 days Active Loxapine Succinate 10 mg Orally bedtime once a day 1 capsule 24h Oct, Active Multivitamin Gummies Adult Active Premarin 0.9 MG Orally Once a day 1 tablet 24h Active Xanax 0.5 MG Orally Twice a day 1 tablet 12h 30 days Active Linzess 145 MCG Orally Once a day 1 capsule 24h Active Melatonin 5 MG 1 tablet at bedtime as needed with food Active RESULTS No Results PROCEDURES Procedure Date Ordered Result Body Site [facility] VISIT ESTABLISHED PATIENT Apr 01, 2017 INSTRUCTIONS MEDICATIONS ADMINISTERED No Known [...] Gall Bladder Surgical History Tubalization Hospitalization History [facility] 12/2014 Hospitalization History Obstructive Airway Disease, Mood disorder, cough-[facility] 07/02/15 Hospitalization History Bronchitis- [facility] 06/2016
--- OUTSIDE RECORDS SUMMARY | 2018-02-03 08:53 | XMS REPORT ---
Author Author MACEYDRE[facility] Address [address] [place] [address] Care Team Providers Care Price Checker Name Role Phone LUCILADREW AJ Unavailable PROBLEMS Type Condition ICD9-CM Code BOT12-KQ Code Onset Dates Condition Status SNOMED Code Problem Mixed hyperlipidemia E78.2 Active 493285928 Problem Bipolar affective disorder, currently manic, mild F31.11 Active 330076863 Problem Chronic fatigue R53.82 Active 17180186 Problem COPD exacerbation J44.1 Active 817658635 Problem Other chronic pain G89.29 Active 02946019 Problem Chronic obstructive pulmonary disease, unspecified COPD type J44.9 Active 90523266 Problem Slow transit constipation K59.01 Active 42558144 Problem Bipolar disorder, in partial remission, most recent episode mixed F31.77 Active 18202700 Problem Bipolar disorder, current episode mixed, mild F31.61 Active 215989197 Problem Bipolar II disorder F31.81 Active 84173545 Problem History of renal insufficiency syndrome Z87.448 Active 872899040 Problem Pharyngeal dysphagia R13.13 Active 15121436752003 Problem Post-traumatic stress disorder, chronic F43.12 Active 03399667 Problem Confusion R41.0 Active 100435874 Problem Memory change R41.3 Active 329101549 Problem Dizziness R42 Active 737055098 ALLERGIES No Information ENCOUNTERS Encounter Location Date Diagnosis [facility] [address] [facility] [id number] [address] Nov, [facility] [id number] [place] [address] 25151- 7210 Nov, [facility] [address] [address] 3131 Oct, [facility] [address] [place] [id number] [place] [address] 08859- 0981 Oct, [facility] [id number] [place] [address] 42976- 8186 Oct, [facility] [id number] [place] [address] 14950- 0177 Oct, Bipolar II disorder F31.81 and Post-traumatic stress disorder, chronic F43.12 [facility] [id number] [place] [address] 79327 -9889 Oct, Scabies B86 [facility] [id number] [place] [address] 03353- 6060 Oct, [place] [address] [address]- 6227 September, Bipolar II disorder F31.81 and Post-traumatic stress disorder, chronic F43.12 [place] [id number] [place] [address] 91524- 2304 September, Bipolar disorder, in partial remission, most recent episode mixed F31.77 [place] [id number] [place] [address] 94768- 4666 September, COPD exacerbation J44.1 and Elevated blood pressure reading R03.0 [place] [id number] [place] [address] 58948- 8499 September, [place] [id number] [place] [address] 85989- 9378 September, Pain in left ankle and joints of left foot M25.572 ; Dermatitis L30.9 and Other chronic pain G89.29 [place] [id number] [place] [address] 72788- 4578 Aug, Right elbow pain M25.521 and Elevated blood pressure reading R03.0 [place] [id number] [place] [address] 25612- 8849 Aug, Bipolar disorder, current episode mixed, mild F31.61 and BMI 40.0-44.9, adult Z68.41 [place] [id number] [place] [address] 50002- 1781 Aug, [place] [address] 00388- 8287 Aug, Bipolar II disorder F31.81 and Post-traumatic stress disorder, chronic F43.12 [place] [id number] [place] [address] 51039- 8009 Jul, Elevated blood pressure reading R03.0 [place] [id number] [place] [address] 84609- 3981 Jul, Bipolar II disorder F31.81 and Post-traumatic stress disorder, chronic F43.12 [place] [id number] [place] [address] 08285- 7413 Jul, Bipolar disorder, current episode mixed, mild F31.61 [facility] [place] [id number] [place] [address] 06259 -7199 Jul, Right foot pain M79.671 ; Allergic contact dermatitis, unspecified trigger L23.9 ; Contusion of right foot, initial encounter S90.31XA and BMI 40.0-44.9, adult Z68.41 [facility] [place] [id number] [place] [address] 10453 -9031 Jul, 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 [place] [id number] [place] [address] 30017- 6604 Jul, [place] [id number] [place] [address] 45874- 7011 Jul, Bipolar disorder, current episode mixed, mild F31.61 [place] [id number] [place] [address] 05467- 6645 Jul, Bipolar II disorder F31.81 ; Post-traumatic stress disorder , chronic F43.12 and Memory change R41.3 [place] [id number] [place] [address] 45033- 1728 14 Jul, 2017 Elevated blood pressure reading R03.0 ; Chronic obstructive pulmonary disease, unspecified COPD type J44.9 ; Long-term use of high-risk medication Z79.899 and Cognitive decline R41.89 [place] [id number] [place] [address] 30078- 7486 06 Jul, 2017 Elevated blood pressure reading R03.0 [place] [id number] [place] [address] 66006- 9599 05 Jul, 2017 [place] [address] [id number] [place] [address] 05346- 9872 01 Jul, 2017 Bipolar II disorder F31.81 ; Post-traumatic stress disorder , chronic F43.12 and Memory change R41.3 [place] [id number] [place] [address] 05881- 5500 Jun, [place] [id number] [place] [address] 85057- 5859 Jun, Bipolar II disorder F31.81 ; Post-traumatic stress disorder , chronic F43.12 and Memory change R41.3 [place] [id number] [place] [address] 42337- 0380 10 Jun, 2017 Localized swelling, mass or lump of neck R22.1 ; Slow transit constipation K59.01 and Elevated blood pressure reading R03.0 [place] [id number] [place] [address] 61362- 1889 Jun, [place] [id number] [place] [address] 92529- 7812 Jun, Bipolar affective disorder, currently manic, mild F31.11 [facility] [place] [address] [id number] [place] [address] 99289 -3417 May, [facility] [place] [address] [address] [id number] [place] [address] 88496 -7330 May, [place] [address] [place] [id number] [place] [address] 71874- 1854 May, Bipolar II disorder F31.81 ; Post-traumatic stress disorder , chronic F43.12 and Memory change R41.3 [facility] [id number] [place] [address] 30796- 2377 May, [facility] [id number] [place] [address] 81449- 5502 May, [facility] [id number] [place] [address] 08556- 1942 May, Bipolar affective disorder, currently manic, mild F31.11 [facility] [id number] [place] [address] 55711- 8554 May, [facility] [id number] [place] [address] 89671 -4998 May, Localized swelling, mass or lump of neck R22.1 and Localized swelling, mass and lump, head R22.0 [place] [id number] [place] [address] 11018- 8251 Apr, [facility] [id number] [place] [address] 91200- 2442 Apr, Bipolar affective disorder, currently manic, mild F31.11 [facility] [id number] [place] [address] 43099- 9344 Apr, Bipolar II disorder F31.81 [facility] [id number] [place] [address] 22343- 7017 Apr, [facility] [id number] [place] [address] 68813- 0968 Apr, Bipolar affective disorder, currently manic, mild F31.11 [facility] [id number] [place] [address] 46815- 8217 Apr, Actinic keratosis L57.0 [facility] [id number] [place] [address] 95802- 0958 Apr, Bipolar affective disorder, currently manic, mild F31.11 [facility] [id number] [place] [address] 42595- 3428 Apr, [facility] [address] [address]4673 Mar, Allergic contact dermatitis, unspecified trigger L23.9 and Right leg pain M79.604 [facility] [id number] [place] [address] 29950- 1132 Mar, [facility] [id number] [place] [address] 62101- 4789 Mar, Bipolar II disorder F31.81 ; Post-traumatic stress disorder , chronic F43.12 and Memory change R41.3 [facility] [id number] [place] [address] 28011- 7747 Mar, Actinic keratosis L57.0 [facility] [id number] [place] [address] 46058- 2201 28 Jan, 2017 Bipolar II disorder F31.81 ; Post-traumatic stress disorder , chronic F43.12 and Memory change R41.3 [facility] [id number] [place] [address] 14579- 8780 28 Jan, 2017 Bipolar affective disorder, currently manic, mild F31.11 [facility] [id number] [place] [address] 97978- 5916 13 Jan, 2017 Bipolar affective disorder, currently manic, mild F31.11 [facility] [id number] [place] [address] 23147- 9052 07 Jan, 2017 Bipolar II disorder F31.81 ; Post-traumatic stress disorder , chronic F43.12 and Memory change R41.3 [facility] [id number] [place] [address] 10274- 6505 Dec, Bipolar II disorder F31.81 ; Post-traumatic stress disorder , chronic F43.12 and Memory change R41.3 [facility] [address] [address]- 0921 Dec, Bipolar affective disorder, currently manic, mild F31.11 [facility] [id number] [address]- 0406 Dec, Bipolar affective disorder, currently manic, mild F31.11 [facility] [id number] [place] [address] 12435- 7966 Dec, Post-traumatic stress disorder, chronic F43.12 [facility] [address] [address]- 3156 Dec, Bipolar II disorder F31.81 ; Post-traumatic stress disorder , chronic F43.12 and Memory change R41.3 [place] [id number] [address]- 3346 Dec, Post-traumatic stress disorder, chronic F43.12 [facility] [id number] [address]- 5426 Nov, [facility] [address] [place] [id number] [place] [address] 03764- 1372 Nov, Bipolar II disorder F31.81 ; Post-traumatic stress disorder , chronic F43.12 and Memory change R41.3 [facility] [address] [address]- 6606 Nov, [facility] [id number] [place] [address] 25075- 5042 Nov, Post-traumatic stress disorder, chronic F43.12 and Bipolar II disorder F31.81 [facility] [address] [place] [address] 22178- 7976 Nov, Actinic keratosis L57.0 [facility] [address] [address]- 9176 Oct, Bipolar II disorder F31.81 ; Post-traumatic stress disorder , chronic F43.12 and Memory change R41.3 [facility] [address] [address]- 0118 Oct, Post-traumatic stress disorder, chronic F43.12 ; Bipolar II disorder F31.81 and Memory change R41.3 [facility] [address] [address]- 3210 Oct, Bipolar II disorder F31.81 ; Post-traumatic stress disorder , chronic F43.12 and Memory change R41.3 [facility] [address] [address]- 4695 Oct, Actinic keratosis L57.0 [facility] [id number] [place] [address] 17307- 5176 September, Bipolar II disorder F31.81 ; Post-traumatic stress disorder , chronic F43.12 and Memory change R41.3 [facility] [address] [place] [address] 83747- 7310 September, Bipolar II disorder F31.81 ; Post-traumatic stress disorder , chronic F43.12 and Memory change R41.3 [facility] [address] [address]- 1123 September, Post-traumatic stress disorder, chronic F43.12 ; Bipolar II disorder F31.81 and Memory change R41.3 [facility] [address] [address]- 1373 Jul, Bipolar II disorder F31.81 ; Post-traumatic stress disorder , chronic F43.12 and Memory change R41.3 [facility] [address] [address]- 2170 Jul, Bipolar II disorder F31.81 ; Post-traumatic stress disorder , chronic F43.12 and Memory change R41.3 [facility] [address] [address]- 3481 Jul, Bipolar II disorder F31.81 ; Post-traumatic stress disorder , chronic F43.12 and Memory change R41.3 [place] [address] [address]- 6584 Jul, Post-traumatic stress disorder, chronic F43.12 ; Bipolar II disorder F31.81 and Memory change R41.3 [place] [address] [address]- 4228 Jul, Tear of medial meniscus of right knee, unspecified tear type , unspecified whether old or current tear, initial encounter S83.241A [place] [address] [place] [address] 82734- 2118 Jul, Bipolar II disorder F31.81 ; Post-traumatic stress disorder , chronic F43.12 and Memory change R41.3 [place] [address] [place] [id number] [place] [address] 35053- 5611 Jul, Shortness of breath R06.02 ; Mixed hyperlipidemia E78.2 and Chronic fatigue R53.82 [place] [address] [place] [address] 27729- 5639 Jul, Bipolar II disorder F31.81 ; Post-traumatic stress disorder , chronic F43.12 and Memory change R41.3 [place] [address] [place] [address] 89522- 7572 Jul, [place] [id number] [place] [address] 50219- 5351 Jun, Bipolar II disorder F31.81 ; Post-traumatic stress disorder , chronic F43.12 and Memory change R41.3 [place] [address] [place] [address] 35486- 7830 Jun, Post-traumatic stress disorder, chronic F43.12 ; Bipolar II disorder F31.81 and Memory change R41.3 [place] [address] [place] [address] 94371- 1772 Jun, Right anterior knee pain M25.561 ; Shortness of breath R06.02 and Bronchiolitis J21.9 [facility] [address] [address]- 0547 Jun, [facility] [id number] [place] [address] 33270- 5479 Jun, Bipolar II disorder F31.81 ; Post-traumatic stress disorder , chronic F43.12 and Memory change R41.3 [facility] [address] [place] [id number] [place] [address] 16859- 3135 Jun, [facility] [address] [place] [address] [id number] [place] [address] 18022- 4784 Jun, Bipolar II disorder F31.81 ; Post-traumatic stress disorder , chronic F43.12 and Memory change R41.3 [facility] [id number] [place] [address] 93271- 2280 May, [facility] [address] [place] [address] [id number] [place] [address] 37167- 3803 May, [facility] [address] [id number] [place] [address] 12052- 6371 May, [facility] [address] [place] [address] [id number] [place] [address] 33907- 7843 May, Right anterior knee pain M25.561 ; Cough R05 ; Skin lesion of right arm L98.9 and Lesion of skin of face L98.9 [facility] [address] [place] [address] [id number] [place] [address] 78557- 4997 May, [facility] [address] [place] [address] 84524- 5457 May, Post-traumatic stress disorder, chronic F43.12 ; Memory change R41.3 and Bipolar I disorder, most recent episode manic F31.10 [facility] [address] [place] [address] 36285- 0768 May, [facility] [id number] [place] [address] 54347- 1055 May, Right anterior knee pain M25.561 [place] [address] [id number] [place] [address] 38574- 1906 May, [place] [id number] [place] [address]- 3464 Apr, Bipolar II disorder F31.81 ; Post-traumatic stress disorder , chronic F43.12 and Memory change R41.3 [place] [id number] [place] [address] 73955- 0438 Apr, Bipolar II disorder F31.81 ; Post-traumatic stress disorder , chronic F43.12 and Memory change R41.3 [place] [id number] [place] [address] 31981- 7138 Apr, Post-traumatic stress disorder, chronic F43.12 ; Bipolar II disorder F31.81 and Memory change R41.3 [place] [address] [id number] [place] [address] 03060- 6494 Mar, Bipolar II disorder F31.81 ; Post-traumatic stress disorder , chronic F43.12 and Memory change R41.3 [place] [id number] [place] [address] 49457- 4369 Mar, Memory change R41.3 ; Confusion R41.0 and Dizziness R42 [place] [id number] [place] [address] 44252- 3303 Mar, Memory change R41.3 ; Encounter for immunization Z23 and Fatigue, unspecified type R53.83 [place] [address] [place] [address] 77821- 3238 Mar, Bipolar II disorder F31.81 ; Post-traumatic stress disorder , chronic F43.12 and Memory change R41.3 [place] [address] [place] [address] 38374- 8457 Jan, Bipolar II disorder F31.81 ; Post-traumatic stress disorder , chronic F43.12 and Memory change R41.3 [facility] [address] [address]- 8711 19 Feb, 2016 Post-traumatic stress disorder, chronic F43.12 ; Bipolar II disorder F31.81 ; Anxiety disorder, unspecified F41.9 and Memory change R41.3 [facility] [address] [address]- 6013 15 Feb, 2016 Bipolar II disorder F31.81 ; Post-traumatic stress disorder , chronic F43.12 and Memory change R41.3 [facility] [address] [address]- 3229 Dec, Bipolar II disorder F31.81 ; Post-traumatic stress disorder , chronic F43.12 and Memory change R41.3 [facility] [address] [address]- 3018 16 Jan, 2016 Memory loss R41.3 [facility] [id number] [place] [address] 47657- 9320 Dec, Bipolar II disorder F31.81 ; Post-traumatic stress disorder , chronic F43.12 and Memory change R41.3 [facility] [address] [address]- 6549 Nov, Bipolar II disorder F31.81 and Post-traumatic stress disorder, chronic F43.12 [facility] [address] [address]- 1367 Nov, Bipolar II disorder F31.81 ; Post-traumatic stress disorder , chronic F43.12 and Memory change R41.3 [facility] [address] [facility] [id number] [address]- 1825 Oct, Post-traumatic stress disorder, chronic F43.12 and Bipolar disorder, unspecified F31.9 [facility] [id number] [address]- 0916 Oct, Bipolar II disorder F31.81 ; Post-traumatic stress disorder , chronic F43.12 and Memory change R41.3 [facility] [id number] [id number] Oct, Dental examination Z01.20 [facility] [id number] [place] [address] 84101061- 3680 September, Bipolar II disorder F31.81 ; Post-traumatic stress disorder , chronic F43.12 and Memory change R41.3 [facility] [id number] [place] [address] 11412664- 4343 Aug, Bipolar II disorder F31.81 and Post-traumatic stress disorder, chronic F43.12 [facility] [id number] [place] [address] 47092- 7236 Aug, Bipolar II disorder F31.81 and Post-traumatic stress disorder, chronic F43.12 [facility] [id number] [address]- 6089 Jul, Bipolar II disorder F31.81 and Post-traumatic stress disorder, chronic F43.12 [facility] [address] [address]- 3608 Jul, [facility] [id number] [place] [address] 46743- 2330 Jul, [facility] [id number] [address]- 8330 Jul, Post-traumatic stress disorder, chronic F43.12 and Bipolar disorder, unspecified F31.9 [facility] [address] [address]- 9286 Jun, Bipolar II disorder F31.81 and Post-traumatic stress disorder, chronic F43.12 [facility] [address] [id number] Jun, Post-traumatic stress disorder, chronic F43.12 and Bipolar disorder, unspecified F31.9 [facility] [id number] [address] Jun, [facility] [address] [place] [id number] [place] [address] Jun, Pharyngeal dysphagia R13.13 ; Hoarseness R49.0 and Cough R05 [facility] [address] [address] 12 Jun, 2015 Post-traumatic stress disorder, chronic F43.12 and Bipolar disorder, unspecified F31.9 [place] [address] [address] May, Cough R05 [place] [address] [address] 30 May, 2015 Post-traumatic stress disorder, chronic F43.12 and Bipolar disorder, unspecified F31.9 [place] [address] [address] 22 May, 2015 Cough R05 [place] [address] [address] 16 May, 2015 [facility] [address] [id number] 16 May, 2015 Dental examination Z01.20 [place] [address] [address] 15 May, 2015 Bipolar II disorder F31.81 and Post-traumatic stress disorder, chronic F43.12 [place] [address] [place] [id number] [place] [address] 14 May, 2015 [place] [address] [address] 14 May, 2015 Bipolar II disorder F31.81 and Anxiety disorder, unspecified F41.9 [place] [address] [address] 10 May, 2015 Memory change R41.3 and History of renal insufficiency syndrome Z87.448 [place] [address] [address] May, Memory change R41.3 ; Dry mouth R68.2 and History of renal insufficiency syndrome Z87.448 [place] [address] [address] May, Bipolar II disorder F31.81 and Post-traumatic stress disorder, chronic F43.12 [place] [address] [address] Mar, Bipolar disorder, unspecified F31.9 and Generalized anxiety disorder F41.1 [place] [address] [address]- [address] Mar, Bipolar II disorder F31.81 [place] [address] [address]- [address]24 Mar, Encounter for immunization Z23 [place] [address] [address]- 6256 Mar, [place] [address] [address]- 2026 Mar, Bipolar II disorder F31.81 [place] [address] [address]- 3771 Mar, [place] [address] [address]- [address] Jan, Bipolar disorder, unspecified 296.80 and Anxiety disorder 300.00 [facility] [address] [place] [id number] [place] [address]54- 8201 Jan, [facility] [address] [place] [id number] [place] [address] 9[address]- 5398 Jan, Bipolar disorder, unspecified 296.80 and Anxiety disorder 300.00 [facility] [address] [place] [id number] [place] [address]86- 6434 Dec, Bipolar disorder, unspecified 296.80 and Anxiety disorder 300.00 [facility] [address] [address]- 9246 Dec, [facility] [id number] [address] Dec, Bipolar disorder, unspecified 296.80 and Anxiety disorder 300.00 [facility] [id number] [address] Nov, Bipolar disorder, unspecified 296.80 and Anxiety disorder 300.00 [facility] [address] [place] [address] [id number] [place] [address] 62983- 6278 Oct, Bipolar disorder, unspecified 296.80 and Anxiety disorder 300.00 [facility] [address] [place] [address] [id number] [place] [address] 30987- 8986 Oct, Anxiety 300.00 and Bipolar disorder, unspecified 296.80 [facility] [id number] [address] 12[address] September, Bipolar disorder, unspecified 296.80 and Anxiety disorder 300.00 [facility] [id number] [address] September, [facility] [address] [place] [address] [id number] [place] [address] 56856- 4981 Aug, Cough 786.2 [facility] [id number] [address] Aug, [facility] [id number] [address] 10[address] Aug, [facility] [id number] [address] 6[address] Jul, [facility] [id number] [address] 1576 Jul, [facility] [id number] [address] 1666 Jul, [facility] [id number] [address]- 4466 Jul, [facility] [place] [facility] [address] [id number] [place] [address] 3309 Jul, [facility] [place] [facility] [address] [id number] [place] [address]- 7468 Jul, [facility] [place] [facility] [address] [id number] [place] [address]- 9656 Jun, [facility] [place] [facility] [address] [id number] [place] [address]- 8983 Jun, [facility] [place] [facility] [address] [id number] [place] [address]- 9381 Jun, [facility] [place] [facility] [address] [id number] [place] [address]- 7510 Jun, [facility] [place] [facility] [address] [id number] [place] [address]- 2894 May, [facility] [place] [facility] [address] [id number] [place] [address]- 3316 May, [facility] [place] [facility] [address] [id number] [place] [address]- 1516 May, [facility] [place] [facility] [address] [id number] [place] [address]- 1482 May, [facility] [place] [facility] [address] [id number] [place] [address]- 6363 Apr, [facility] [place] [facility] [address] [id number] [place] [address]- 1703 Apr, [facility] [place] [facility] [address] [id number] [place] [address]- 8127 Mar, [facility] [place] [facility] [address] [id number] [place] [address]- 8515 Mar, [facility] [place] [facility] [address] [id number] [place] [address]- 6016 Mar, [facility] [place] [facility] [address] [id number] [place] [address]- 9625 Mar, [facility] [place] [facility] [address] [id number] [place] [address]- 7783 Mar, [facility] [place] [facility] [address] [id number] [place] [address]- 0604 Mar, [facility] [place] [facility] [address] [id number] [place] [address]- 7537 Jan, 2013 [facility] [place] [facility] [address] [id number] [place] [address]- 2334 Jan, 2013 [facility] [place] [facility] [address] [id number] [place] [address]- 9540 Jan, [facility] [place] [facility] [address] [id number] [place] [address]- 8375 Jan, 2013 [facility] [place] [facility] [address] [id number] [place] [address]- 9259 Jan, 2013 [facility] [place] [facility] [address] [id number] [place] [address]- 3858 Jan, [facility] [place] [facility] [address] [id number] [place] [address]- 7148 Dec, [facility] [place] [facility] [address] [id number] [place] [address]- 1354 Dec, [facility] [place] [facility] [address] [id number] [place] [address]- 7074 Dec, [facility] [place] [facility] [address] [id number] [place] [address]- 1457 Dec, [facility] [place] [facility] [address] [id number] [place] [address]- 5085 Dec, [facility] [place] [facility] [address] [id number] [place] [address]- 3694 Dec, [facility] [place] [facility] [address] [id number] [place] [address]- 8577 Nov, [facility] [place] [facility] [address] [id number] [place] [address]- 2193 Nov, [facility] [place] [facility] [address] [id number] [place] [address]- 3057 Nov, [facility] [place] [facility] [address] [id number] [place] [address]- 0316 Nov, [facility] [place] [facility] [address] [id number] [place] [address]- 7499 Nov, [facility] [place] [facility] [address] [id number] [place] [address]- 2154 Nov, [facility] [place] [facility] [address] [id number] [place] [address]- 4573 Nov, [facility] [place] [facility] [address] [id number] [place] [address]- 3884 Nov, [facility] [place] [facility] [address] [id number] [place] [address]- 3983 Nov, [facility] [place] [facility] [address] [id number] [place] [address]- 6992 Nov, [facility] [place] [facility] [address] [id number] [place] [address]- 9850 September, [facility] [place] [facility] [address] [id number] [place] [address]- 1446 September, [facility] [place] [facility] [address] [id number] [place] [address]- 4568 September, [facility] [place] [facility] [address] [id number] [place] [address] September, [facility] [place] [facility] [address] [id number] [place] [address]- 2593 September, [facility] [place] [facility] [address] [id number] [place] [address]- 1194 September, [facility] [place] [facility] [address] [id number] [place] [address]- 4464 September, [facility] [place] [facility] [address] [id number] [place] [address]- 9397 September, [facility] [place] [facility] [address] [id number] [place] [address]- 2678 Aug, [facility] [place] [facility] [address] [facility] [facility] [id number] [place] [address]- 7062 Aug, [facility] [place] [facility] [address] [facility] [address] [facility] [id number] [place] [address]- 8450 Aug, [facility] [place] [facility] [address] [id number] [place] [address]- 9052 Aug, [facility] [place] [facility] [address] [address] [facility] [id number] [place] [address]- 6550 Jul, [facility] [place] [facility] [address] [facility] [id number] [place] [address]- 6312 Jul, [facility] [place] [facility] [address] [address] [facility] [id number] [place] [address]- 1050 Jul, [facility] [place] [facility] [address] [facility] [id number] [place] [address]- 1612 Jul, [facility] [place] [facility] [address] [address] [facility] [id number] [place] [address]- 6269 Jul, [facility] [place] [facility] [address] [facility] [id number] [place] [address]- 1141 Jul, [facility] [place] [facility] [address] [address] [facility] [id number] [place] [address]- 0216 Jul, [facility] [place] [facility] [address] [address] [facility] [id number] [place] [address]- 3169 Jul, [facility] [place] [facility] [address] [facility] [address] [facility] [id number] [place] [address]- 1012 Jul, [facility] [place] [facility] [address] [place] [id number] [address]- 4947 06 Jul, 2013 [facility] [place] [facility] [address] [id number] [place] [address]- 9587 Jul, [facility] [place] [facility] [address] [id number] [place] [address]- 9243 Jun, [facility] [place] [facility] [address] [id number] [place] [address]- 8532 Jun, [facility] [place] [facility] [address] [id number] [place] [address]- 5777 Jun, [facility] [place] [facility] [address] [id number] [place] [address]- 8295 Jun, [facility] [place] [facility] [address] [id number] [place] [address]- 7842 May, [facility] [place] [facility] [address] [id number] [place] [address]- 9438 May, [facility] [place] [facility] [address] [id number] [place] [address]- 0043 Apr, [facility] [place] [facility] [address] [id number] [place] [address]- 1862 Apr, [facility] [place] [facility] [address] [id number] [place] [address]- 3847 Apr, [facility] [place] [facility] [address] [id number] [place] [address]- 6038 Apr, [facility] [place] [facility] [address] [id number] [place] [address]- 0512 Apr, [facility] [place] [facility] [address] [id number] [place] [address]- 2939 Apr, [facility] [place] [facility] [address] [id number] [place] [address]- 8631 Apr, [facility] [place] [facility] [address] [id number] [place] [address]- 2638 Apr, [facility] [place] [facility] [address] [id number] [place] [address]- 7366 Apr, [facility] [address] [address] [facility] [id number] [place] [address]- 1152 Apr, [facility] [address] [facility] [address] [facility] [id number] [place] [address]- 7686 Apr, [facility] [address] [address]- 5216 Apr, [facility] [address] [facility] [id number] [place] [address]- 9172 Mar, [facility] [address] [facility] [address] [facility] [id number] [place] [address]- 9203 Mar, [facility] [address] [facility] [address] [facility] [id number] [place] [address]- 8881 Mar, [facility] [id number] [address]- 0493 Dec, [facility] [id number] [address]- 6662 Dec, [facility] [id number] [address] Dec, [facility] [id number] [address]- 1592 Oct, [facility] [address] [id number] [address]- 2501 May, [facility] [address] [id number] [address]- 2756 May, [facility] [address] [id number] [address]- 9111 May, [facility] [address] [id number] [address]- 9655 Dec, IMMUNIZATIONS No Known Immunizations SOCIAL HISTORY Never Assessed REASON FOR VISIT GAY franco/Martine ACEVEDO PLAN OF CARE Activity Details Follow Up 2 Months Reason: VITAL SIGNS Height 66 in 2017-06-03 Weight 235.6 lbs 2017-06-03 Heart Rate 98 bpm 2017-06-03 Respiratory Rate 20 2017-06-03 BMI 38.02 kg/m2 2017-06-03 Blood pressure systolic 142 mmHg 2017-06-03 Blood pressure diastolic 88 mmHg 2017-06-03 MEDICATIONS Medication Instructions Dosage Frequency Start Date End Date Duration Status Xanax 0.5 MG Orally Twice a day 1 tablet 12h Active Abilify 30 MG Orally Once a day 1 tablet 24h Nov, Active Vitamin D 2000 UNIT Orally Once a day 1 tablet 24h Active Topamax 50 MG Orally Twice a day for 2 weeks then once a day for two weeks then stop med-part of taper schedule 1 tablet Apr, 30 days Not -Taking Aristada 882 MG/3.2ML Intramuscular every month 3.2 ml Apr, 90 days Not-Taking Premarin 0.9 MG Orally Once a day 1 tablet 24h Active Loxapine Succinate 5 MG Orally at night 1 capsule Oct, Active Calcium 600 MG Orally Once a day 1 tablet with meals 24h 30 days Active Albuterol Sulfate 108 (90 Base) MCG/ACT Inhalation every 4-6 hrs 1 puff as needed May, Active Aspirin 81 MG Orally Once a day 1 tablet 24h Active Linzess 145 MCG Orally Once a day 1 capsule 24h Active Fish Oil 1000 MG Orally Once a day 2 capsule 24h Active Cymbalta 60 MG Orally Once a day 1 Capsule 24h Active Advair Diskus 100-50 MCG/DOSE Inhalation Twice a day 1 puff 12h Active Benztropine Mesylate 1 MG Orally twice a day 1 tablet 12h Active Trazodone HCl 50 MG Orally at night as needed for sleep 0.5-1 tablet Jun, 30 day(s) Active Omeprazole 40 mg Orally Once a day 1 capsule 24h May, 90 days Active Melatonin 5 MG 1 tablet at bedtime as needed with food Active Multivitamin Gummies Adult Active RESULTS No Results PROCEDURES Procedure Date Ordered Result Body Site [facility] VISIT ESTABLISHED PATIENT Jun 03, 2017 INSTRUCTIONS MEDICATIONS ADMINISTERED No Known [...] Gall Bladder Surgical History Tubalization Hospitalization History [facility] 12/2014 Hospitalization History Obstructive Airway Disease, Mood disorder, cough-[facility] 07/02/15 Hospitalization History Bronchitis- [facility] 06/2016
--- OUTSIDE RECORDS SUMMARY | 2018-02-03 08:54 | XMS REPORT ---
Author Author SHANTAL TOWNSEND Organization [facility] Address [address] [place] [address] Care Team Providers Care Full Time Babysitter Name Role Phone SHANTAL TOWNSEND Unavailable PROBLEMS Type Condition ICD9-CM Code QCX83-VP Code Onset Dates Condition Status SNOMED Code Problem Confusion R41.0 Active 393290151 Problem Mixed hyperlipidemia E78.2 Active 360231429 Problem Dizziness R42 Active 887615884 Problem Other chronic pain G89.29 Active 98311009 Problem Bipolar disorder, current episode mixed, mild F31.61 Active 863583104 Problem Bipolar affective disorder, currently manic, mild F31.11 Active 668708491 Problem Chronic fatigue R53.82 Active 26636560 Problem Chronic obstructive pulmonary disease, unspecified COPD type J44.9 Active 96582722 Problem Slow transit constipation K59.01 Active 13271527 Problem Post-traumatic stress disorder, chronic F43.12 Active 84848777 Problem Memory change R41.3 Active 178712240 Problem History of renal insufficiency syndrome Z87.448 Active 505132544 Problem Bipolar II disorder F31.81 Active 55073425 Problem Pharyngeal dysphagia R13.13 Active [id number] ALLERGIES No Information ENCOUNTERS Encounter Location Date Diagnosis [facility] [id number] [address] Oct, [facility] [address] [address] Oct, [facility] [id number] [place] [address] 72154- 9538 September, [facility] [address] [address] September, [facility] [address] [place] [address] 58238- 7153 September, Pain in left ankle and joints of left foot M25.572 ; Dermatitis L30.9 and Other chronic pain G89.29 [place] [address] [address] Aug, Right elbow pain M25.521 and Elevated blood pressure reading R03.[address] [address] Aug, Bipolar disorder, current episode mixed, mild F31.61 and BMI 40.0-44.9, adult Z68.41 [place] [address] [address]- [address] Aug, [place] [address] 28473- 7637 Aug, Bipolar II disorder F31.81 and Post-traumatic stress disorder, chronic F43.12 [place] [address] 90856- 0543 Jul, Elevated blood pressure reading R03.0 [place] [address] 70016- 1582 Jul, Bipolar II disorder F31.81 and Post-traumatic stress disorder, chronic F43.12 [place] [address] 61459- 7998 Jul, Bipolar disorder, current episode mixed, mild F31.61 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 [place] [address] [place] [address]- 2962 22 Jul, 2017 [place] [id number] [place] [address] 93395- 9178 15 Jul, 2017 Bipolar disorder, current episode mixed, mild F31.61 [place] [id number] [place] [address] 54870- 8403 15 Jul, 2017 Bipolar II disorder F31.81 ; Post-traumatic stress disorder , chronic F43.12 and Memory change R41.3 [place] [id number] [place] [address] 64947- 2054 14 Jul, 2017 Elevated blood pressure reading R03.0 ; Chronic obstructive pulmonary disease, unspecified COPD type J44.9 ; Long-term use of high-risk medication Z79.899 and Cognitive decline R41.89 [place] [id number] [place] [address] 79492- 6974 06 Jul, 2017 Elevated blood pressure reading R03.0 [place] [id number] [place] [address] 21045- 1745 05 Jul, 2017 [place] [id number] [place] [address] 81301- 2773 01 Jul, 2017 Bipolar II disorder F31.81 ; Post-traumatic stress disorder , chronic F43.12 and Memory change R41.3 [place] [id number] [place] [address] 83948- 8618 Jun, [place] [id number] [place] [address] 19967- 2271 18 Jun, 2017 Bipolar II disorder F31.81 ; Post-traumatic stress disorder , chronic F43.12 and Memory change R41.3 [place] [id number] [place] [address] 61000- 5683 10 Jun, 2017 Localized swelling, mass or lump of neck R22.1 ; Slow transit constipation K59.01 and Elevated blood pressure reading R03.0 [place] [address] [place] [address] Jun, [facility] [address] [address] Jun, Bipolar affective disorder, currently manic, mild F31.11 [facility] [address] [address] May, [facility] [id number] [place] [address] 22946 -1991 May, [facility] [id number] [place] [address] 03195- 3063 May, Bipolar II disorder F31.81 ; Post-traumatic stress disorder , chronic F43.12 and Memory change R41.3 [place] [address] [place] [address] 25282- 5190 May, [place] [id number] [place] [address] 10080- 5345 May, [place] [address] [place] [address] 19455- 9386 May, Bipolar affective disorder, currently manic, mild F31.11 [place] [address] [address] 6[address] May, [facility] [address] [address] May, Localized swelling, mass or lump of neck R22.1 and Localized swelling, mass and lump, head R22.0 [place] [address] [address] 9[address] Apr, [place] [id number] [place] [address] 24854- 1934 Apr, Bipolar affective disorder, currently manic, mild F31.11 [facility] [address] [address] 4210 Apr, Bipolar II disorder F31.81 [facility] [address] [address] 98[address] Apr, [facility] [id number] [place] [address] 80735- 9458 Apr, Bipolar affective disorder, currently manic, mild F31.11 [facility] [address] [address] 0058 Apr, Actinic keratosis L57.0 [facility] [address] [address] 0[address] Apr, Bipolar affective disorder, currently manic, mild F31.11 [facility] [id number] [place] [address] 44783- 1189 Apr, [facility] [address] [place] [address] 99785 -7720 Mar, Allergic contact dermatitis, unspecified trigger L23.9 and Right leg pain M79.604 [facility] [address] [place] [address] 30612- 4006 Mar, [facility] [id number] [place] [address] 02628- 3046 Mar, Bipolar II disorder F31.81 ; Post-traumatic stress disorder , chronic F43.12 and Memory change R41.3 [facility] [address] [place] [address] 18337- 8382 Mar, Actinic keratosis L57.0 [facility] [address] [address] Jan, Bipolar II disorder F31.81 ; Post-traumatic stress disorder , chronic F43.12 and Memory change R41.3 [facility] [address] [address]- 67[address] Jan, Bipolar affective disorder, currently manic, mild F31.11 [facility] [id number] [place] [address] 97445- 1038 13 Jan, 2017 Bipolar affective disorder, currently manic, mild F31.11 [facility] [id number] [place] [address] 76490- 8722 Jan, Bipolar II disorder F31.81 ; Post-traumatic stress disorder , chronic F43.12 and Memory change R41.3 [facility] [id number] [place] [address] 64646- 4495 Dec, Bipolar II disorder F31.81 ; Post-traumatic stress disorder , chronic F43.12 and Memory change R41.3 [facility] [id number] [place] [address] 83513- 0384 Dec, Bipolar affective disorder, currently manic, mild F31.11 [facility] [id number] [place] [address] 42480- 2141 Dec, Bipolar affective disorder, currently manic, mild F31.11 [facility] [id number] [place] [address] 42710- 0883 Dec, Post-traumatic stress disorder, chronic F43.12 [facility] [id number] [place] [address] 66787- 3035 Dec, Bipolar II disorder F31.81 ; Post-traumatic stress disorder , chronic F43.12 and Memory change R41.3 [facility] [address] [place] [address] 29240- 9436 Dec, Post-traumatic stress disorder, chronic F43.12 [facility] [address] [place] [address] 62242- 0843 Nov, [facility] [id number] [place] [address] 94275- 6784 Nov, Bipolar II disorder F31.81 ; Post-traumatic stress disorder , chronic F43.12 and Memory change R41.3 [facility] [id number] [place] [address] 42929- 7843 Nov, [facility] [address] [address]- 7945 Nov, Post-traumatic stress disorder, chronic F43.12 and Bipolar II disorder F31.81 [facility] [address] [address]- 5687 Nov, Actinic keratosis L57.0 [facility] [address] [place] [address] 64559- 4408 Oct, Bipolar II disorder F31.81 ; Post-traumatic stress disorder , chronic F43.12 and Memory change R41.3 [facility] [id number] [place] [address] 53299- 1590 Oct, Post-traumatic stress disorder, chronic F43.12 ; Bipolar II disorder F31.81 and Memory change R41.3 [address] [id number] [place] [address] 31903- 1159 Oct, Bipolar II disorder F31.81 ; Post-traumatic stress disorder , chronic F43.12 and Memory change R41.3 [facility] [address] [place] [address] 28842- 9457 Oct, Actinic keratosis L57.0 [facility] [address] [address]- 6519 September, Bipolar II disorder F31.81 ; Post-traumatic stress disorder , chronic F43.12 and Memory change R41.3 [facility] [address] [address]- 3914 September, Bipolar II disorder F31.81 ; Post-traumatic stress disorder , chronic F43.12 and Memory change R41.3 [facility] [address] [place] [address] September, Post-traumatic stress disorder, chronic F43.12 ; Bipolar II disorder F31.81 and Memory change R41.3 [facility] [address] [place] [address]46 Jul, Bipolar II disorder F31.81 ; Post-traumatic stress disorder , chronic F43.12 and Memory change R41.3 [place] [address] [place] [address] 13847- 9222 15 Jul, 2016 Bipolar II disorder F31.81 ; Post-traumatic stress disorder , chronic F43.12 and Memory change R41.3 [place] [id number] [place] [address] 10481- 3349 Jul, Bipolar II disorder F31.81 ; Post-traumatic stress disorder , chronic F43.12 and Memory change R41.3 [place] [id number] [place] [address] 45990- 2453 Jul, Post-traumatic stress disorder, chronic F43.12 ; Bipolar II disorder F31.81 and Memory change R41.3 [place] [id number] [place] [address] 33666- 3889 Jul, Tear of medial meniscus of right knee, unspecified tear type , unspecified whether old or current tear, initial encounter [id number] [place] [address] 11093- 3820 Jul, Bipolar II disorder F31.81 ; Post-traumatic stress disorder , chronic F43.12 and Memory change R41.3 [place] [address] [place] [address] 25375- 0200 Jul, Shortness of breath R06.02 ; Mixed hyperlipidemia E78.2 and Chronic fatigue R53.82 [place] [id number] [place] [address] 62837- 5428 07 Jul, 2016 Bipolar II disorder F31.81 ; Post-traumatic stress disorder , chronic F43.12 and Memory change R41.3 [place] [id number] [place] [address] 12028- 9609 Jul, [place] [id number] [place] [address] 27572- 1008 Jun, Bipolar II disorder F31.81 ; Post-traumatic stress disorder , chronic F43.12 and Memory change R41.3 [facility] [id number] [place] [address] 71255- 9733 Jun, Post-traumatic stress disorder, chronic F43.12 ; Bipolar II disorder F31.81 and Memory change R41.3 [facility] [id number] [place] [address] 01684- 6884 Jun, Right anterior knee pain M25.561 ; Shortness of breath R06.02 and Bronchiolitis J21.9 [place] [id number] [place] [address] 65506- 6761 Jun, [place] [id number] [place] [address] 43803- 8051 Jun, Bipolar II disorder F31.81 ; Post-traumatic stress disorder , chronic F43.12 and Memory change R41.3 [facility] [id number] [place] [address] 45277- 2265 Jun, [place] [id number] [place] [address] 22570- 5227 Jun, Bipolar II disorder F31.81 ; Post-traumatic stress disorder , chronic F43.12 and Memory change R41.3 [place] [id number] [place] [address] 47713- 2565 May, [facility] [id number] [place] [address] 11283- 8541 May, [facility] [id number] [place] [address] 05724- 4669 May, [facility] [id number] [place] [address] 79418- 4224 May, Right anterior knee pain M25.561 ; Cough R05 ; Skin lesion of right arm L98.9 and Lesion of skin of face L98.9 [facility] [address] [address] May, [facility] [id number] [place] [address] 42803- 0756 May, Post-traumatic stress disorder, chronic F43.12 ; Memory change R41.3 and Bipolar I disorder, most recent episode manic F31.10 [place] [id number] [place] [address] 76579- 0238 May, [facility] [id number] [place] [address] 63028- 2827 May, Right anterior knee pain M25.561 [place] [id number] [place] [address] 95751- 6929 May, [place] [id number] [place] [address] 36857- 9877 Apr, Bipolar II disorder F31.81 ; Post-traumatic stress disorder , chronic F43.12 and Memory change R41.3 [place] [address] [place] [address] 47148- 0173 Apr, Bipolar II disorder F31.81 ; Post-traumatic stress disorder , chronic F43.12 and Memory change R41.3 [place] [address] [place] [address] 25884- 4830 Apr, Post-traumatic stress disorder, chronic F43.12 ; Bipolar II disorder F31.81 and Memory change R41.3 [place] [address] [place] [address] 70438- 3730 Mar, Bipolar II disorder F31.81 ; Post-traumatic stress disorder , chronic F43.12 and Memory change R41.3 [place] [id number] [place] [address] 81214- 8014 Mar, Memory change R41.3 ; Confusion R41.0 and Dizziness R42 [place] [id number] [place] [address] 09316- 6815 Mar, Memory change R41.3 ; Encounter for immunization Z23 and Fatigue, unspecified type R53.83 [facility] [id number] [place] [address] 09333- 1389 Mar, Bipolar II disorder F31.81 ; Post-traumatic stress disorder , chronic F43.12 and Memory change R41.3 [facility] [id number] [place] [address] 79018- 7862 Jan, Bipolar II disorder F31.81 ; Post-traumatic stress disorder , chronic F43.12 and Memory change R41.3 [place] [id number] [place] [address] 43118- 0250 Jan, Post-traumatic stress disorder, chronic F43.12 ; Bipolar II disorder F31.81 ; Anxiety disorder, unspecified F41.9 and Memory change R41.3 [place] [id number] [place] [address] 49037- 1599 Jan, Bipolar II disorder F31.81 ; Post-traumatic stress disorder , chronic F43.12 and Memory change R41.3 [place] [id number] [place] [address] 36758- 9071 Dec, Bipolar II disorder F31.81 ; Post-traumatic stress disorder , chronic F43.12 and Memory change R41.3 [place] [id number] [place] [address] 52855- 1488 Dec, Memory loss R41.3 [facility] [id number] [place] [address] 18980- 8447 Dec, Bipolar II disorder F31.81 ; Post-traumatic stress disorder , chronic F43.12 and Memory change R41.3 [place] [id number] [place] [address] 65406- 6196 Nov, Bipolar II disorder F31.81 and Post-traumatic stress disorder, chronic F43.12 [facility] [id number] [place] [address] 86458- 7490 Nov, Bipolar II disorder F31.81 ; Post-traumatic stress disorder , chronic F43.12 and Memory change R41.3 [facility] [address] [place] [address] 95929- 7307 Oct, Post-traumatic stress disorder, chronic F43.12 and Bipolar disorder, unspecified F31.9 [facility] [id number] [place] [address] 36980- 1006 Oct, Bipolar II disorder F31.81 ; Post-traumatic stress disorder , chronic F43.12 and Memory change R41.3 [facility] [address] [place] [address] [id number] Oct, Dental examination Z01.20 [facility] [id number] [place] [address] 68521- 0396 September, Bipolar II disorder F31.81 ; Post-traumatic stress disorder , chronic F43.12 and Memory change R41.3 [facility] [id number] [place] [address] 03180- 7735 Aug, Bipolar II disorder F31.81 and Post-traumatic stress disorder, chronic F43.12 [facility] [id number] [place] [address] 15731- 0126 Aug, Bipolar II disorder F31.81 and Post-traumatic stress disorder, chronic F43.12 [facility] [address] [place] [address] 14437- 1598 Jul, Bipolar II disorder F31.81 and Post-traumatic stress disorder, chronic F43.12 [facility] [address] [place] [address] 61758- 7387 Jul, [facility] [id number] [place] [address] 86278- 7901 Jul, [facility] [id number] [place] [address] 65099- 0316 Jul, Post-traumatic stress disorder, chronic F43.12 and Bipolar disorder, unspecified F31.9 [facility] [id number] [place] [address]- 9741 Jun, Bipolar II disorder F31.81 and Post-traumatic stress disorder, chronic F43.12 [facility] [id number] [place] [address] Jun, Post-traumatic stress disorder, chronic F43.12 and Bipolar disorder, unspecified F31.9 [place] [address] [place] [address]- 7146 Jun, [place] [address] 995 Jun, Pharyngeal dysphagia R13.13 ; Hoarseness R49.0 and Cough R05 [place] [address] 71263- 8261 Jun, Post-traumatic stress disorder, chronic F43.12 and Bipolar disorder, unspecified F31.9 [place] [id number] [place] [address] 69707- 7513 May, Cough R05 [place] [address] 751 May, Post-traumatic stress disorder, chronic F43.12 and Bipolar disorder, unspecified F31.9 [place] [id number] [place] [address] 1006 May, Cough R05 [facility] [id number] [place] [address] 78466- 7204 May, [facility] [address] [id number] May, Dental examination Z01.20 [facility] [id number] [place] [address] 24888- 5983 May, Bipolar II disorder F31.81 and Post-traumatic stress disorder, chronic F43.12 [place] [id number] [place] [address] 60790- 2192 May, [facility] [id number] [place] [address] 24850- 2594 May, Bipolar II disorder F31.81 and Anxiety disorder, unspecified F41.9 [facility] [address] 47209- 6655 May, Memory change R41.3 and History of renal insufficiency syndrome Z87.448 [facility] [address] 52227- 6568 May, Memory change R41.3 ; Dry mouth R68.2 and History of renal insufficiency syndrome Z87.448 [facility] [id number] [place] [address] 72934- 5361 May, Bipolar II disorder F31.81 and Post-traumatic stress disorder, chronic F43.12 [place] [address] 02232- 5884 Mar, Bipolar disorder, unspecified F31.9 and Generalized anxiety disorder F41.1 [place] [address] 36762- 5413 Mar, Bipolar II disorder F31.81 [place] [id number] [place] [address] 59308- 6407 Mar, Encounter for immunization Z23 [place] [id number] [place] [id number] [id number] Mar, [place] [address] [place] [id number] [place] [address]- [address] Mar, Bipolar II disorder F31.81 [facility] [address] [place] [id number] [place] [address]- [id number] Mar, [facility] [address] [place] [id number] [place] [id number]- [address] Jan, Bipolar disorder, unspecified 296.80 and Anxiety disorder 300.00 [facility] [id number] [address] Jan, [facility] [facility] [id number] [place] [address] 62159- [address]378 Jan, Bipolar disorder, unspecified 296.80 and Anxiety disorder 300.00 [facility] [id number] [place] [address] 64224- 5850 Dec, Bipolar disorder, unspecified 296.80 and Anxiety disorder 300.00 [facility] [id number] [place] [address] 88525- 9911 Dec, [facility] [id number] [place] [address] 77598- 0696 Dec, Bipolar disorder, unspecified 296.80 and Anxiety disorder 300.00 [facility] [id number] [place] [address] 18224- 9149 Nov, Bipolar disorder, unspecified 296.80 and Anxiety disorder 300.00 [facility] [id number] [place] [address] 64010- 4282 Oct, Bipolar disorder, unspecified 296.80 and Anxiety disorder 300.00 [facility] [id number] [place] [address] 57193- 9801 Oct, Anxiety 300.00 and Bipolar disorder, unspecified 296.80 [facility] [id number] [place] [address] 51118- 9583 September, Bipolar disorder, unspecified 296.80 and Anxiety disorder 300.00 [facility] [id number] [address] 7668 September, [facility] [id number] [place] [address] 49550- 1229 Aug, Cough 786.2 [facility] [id number] [place] [address] 34051- 8025 Aug, [facility] [id number] [place] [address] 90721- 1048 Aug, [facility] [place] [facility] [address] [id number] [place] [address]- 5665 Jul, [facility] [place] [facility] [address] [id number] [place] [address]- 7450 Jul, [facility] [place] [facility] [address] [id number] [place] [address]- 2254 Jul, [facility] [place] [facility] [address] [id number] [place] [address]- 5126 Jul, [facility] [place] [facility] [address] [id number] [place] [address]- 9128 Jul, [facility] [place] [facility] [address] [id number] [place] [address]- 9738 Jul, [facility] [place] [facility] [address] [id number] [place] [address]- 6501 Jun, [facility] [place] [facility] [address] [id number] [place] [address]- 1008 Jun, [facility] [place] [facility] [address] [id number] [place] [address]- 0581 Jun, [facility] [place] [facility] [address] [facility] [id number] [place] [address]- 2753 Jun, [facility] [place] [facility] [address] [id number] [place] [address]- 9684 May, [facility] [place] [facility] [address] [id number] [place] [address]- 2329 May, [facility] [place] [facility] [address] [id number] [place] [address]- 5555 May, [facility] [place] [facility] [address] [id number] [place] [address]- 7713 May, [facility] [place] [facility] [address] [facility] [id number] [place] [address]- 9538 Apr, [facility] [place] [facility] [address] [id number] [place] [address]- 4759 Apr, [facility] [place] [facility] [address] [id number] [place] [address]- 3247 Mar, [facility] [place] [facility] [address] [id number] [place] [address]- 7941 Mar, [facility] [place] [facility] [address] [id number] [place] [address]- 9664 Mar, [facility] [place] [facility] [address] [id number] [place] [address]- 7007 Mar, [facility] [place] [facility] [address] [id number] [place] [address]- 2521 Mar, [facility] [place] [facility] [address] [id number] [place] [address]- 1451 Mar, [facility] [place] [facility] [address] [id number] [place] [address]- 8468 Jan, [facility] [place] [facility] [address] [id number] [place] [address]- 7040 Jan, [facility] [place] [facility] [address] [id number] [place] [address]- 4407 Jan, 2013 [facility] [place] [facility] [address] [id number] [place] [address]- 6660 Jan, 2013 [facility] [place] [facility] [address] [id number] [place] [address]- 8728 Jan, 2013 [facility] [place] [facility] [address] [id number] [place] [address]- 0572 Jan, [facility] [place] [facility] [address] [id number] [place] [address]- 2432 Dec, [facility] [place] [facility] [address] [id number] [place] [address]- 2068 Dec, [facility] [place] [facility] [address] [id number] [place] [address]- 5764 Dec, [facility] [place] [facility] [address] [id number] [place] [address]- 5901 Dec, [facility] [place] [facility] [address] [id number] [place] [address]- 3640 Dec, [facility] [place] [facility] [address] [id number] [place] [address]- 3852 Dec, [facility] [place] [facility] [address] [id number] [place] [address]- 2761 Nov, [facility] [place] [facility] [address] [id number] [place] [address]- 5836 Nov, [facility] [place] [facility] [address] [id number] [place] [address]- 3317 Nov, [facility] [place] [facility] [address] [id number] [place] [address]- 5917 Nov, [facility] [place] [facility] [address] [id number] [place] [address]- 3350 Nov, [facility] [place] [facility] [address] [id number] [place] [address]- 8124 Nov, [facility] [place] [facility] [address] [id number] [place] [address]- 8131 Nov, [facility] [place] [facility] [address] [id number] [place] [address]- 3264 Nov, [facility] [place] [facility] [address] [id number] [place] [address]- 3889 Nov, [facility] [place] [facility] [address] [id number] [place] [address]- 6786 Nov, [facility] [place] [facility] [address] [id number] [place] [address]- 3977 September, [facility] [place] [facility] [address] [id number] [place] [address]- 9912 September, [facility] [place] [facility] [address] [id number] [place] [address]- 7673 September, [facility] [address] [id number] [place] [address]- 3290 September, [facility] [place] [facility] [address] [id number] [place] [address]- 7129 September, [facility] [address] [id number] [place] [address]- 9180 September, [facility] [place] [facility] [address] [id number] [place] [address]- 1691 September, [facility] [address] [id number] [place] [address]- 1443 September, [facility] [place] [facility] [address] [id number] [place] [address]- 2593 Aug, [facility] [place] [facility] [address] [id number] [place] [address]- 0472 Aug, [facility] [address] [id number] [place] [address]- 3676 Aug, [facility] [place] [facility] [address] [id number] [place] [address]- 4459 Aug, [facility] [address] [id number] [place] [address]- 5198 Jul, [facility] [place] [facility] [address] [id number] [place] [address]- 3467 Jul, [facility] [place] [facility] [address] [id number] [place] [address]- 4894 Jul, [facility] [place] [facility] [address] [id number] [place] [address]- 1846 Jul, [facility] [place] [facility] [address] [id number] [place] [address]- 7616 Jul, [facility] [place] [facility] [address] [id number] [place] 5230 Jul, [facility] [place] [facility] [address] [id number] [place] 0705 Jul, [facility] [place] [facility] [address] [id number] [place] [address]- 9164 Jul, [facility] [place] [facility] [address] [id number] [place] [address]- 5643 Jul, [facility] [place] [facility] [address] [id number] [place] [address]- 0408 Jul, [facility] [place] [facility] [address] [id number] [place] [address]- 8442 Jul, [facility] [place] [facility] [address] [id number] [place] [address]- 0542 Jun, [facility] [place] [facility] [address] [id number] [place] [address]- 1232 Jun, [facility] [place] [facility] [address] [id number] [place] [address]- 2045 Jun, [facility] [place] [facility] [address] [id number] [place] [address]- 8076 Jun, [facility] [place] [facility] [address] [id number] [place] [address]- 6434 May, [facility] [place] [facility] [address] [id number] [place] [address]- 7866 May, [facility] [place] [facility] [address] [id number] [place] [address]- 6626 Apr, [facility] [place] [facility] [address] [id number] [place] [address]- 8042 Apr, [facility] [place] [facility] [address] [id number] [place] [address]- 2375 Apr, [facility] [place] [facility] [address] [id number] [place] [address]- 3789 Apr, [facility] [place] [facility] [address] [id number] [place] [address]- 2482 Apr, [facility] [address] [id number] [place] [address]- 3865 Apr, [facility] [place] [facility] [address] [id number] [place] [address]- 1784 Apr, [facility] [address] [id number] [place] [address]- 4694 Apr, [facility] [place] [facility] [address] [id number] [place] [address]- 2466 Apr, [facility] [address] [id number] [place] [address]- 3991 Apr, [facility] [place] [facility] [address] [id number] [place] [address]- 5121 Apr, [facility] [place] [facility] [address] [id number] [place] [address]- 0324 Apr, [facility] [address] [id number] [place] [address]- 2733 Mar, [facility] [place] [facility] [address] [id number] [place] [address]- 3695 Mar, [facility] [address] [id number] [place] [address]- 1122 Mar, [facility] [place] [facility] [address] [id number] [place] [address]- 6854 Dec, [facility] [place] [facility] [address] [id number] [place] [address]- 6892 Dec, [facility] [place] [facility] [address] [id number] [place] 8031 Dec, [facility] [place] [facility] [address] [id number] [place] [address]- 3545 Oct, [facility] [place] [facility] [address] [id number] [place] [address]- 8079 May, [facility] [address] [facility] [id number] [place] [id number] 8947 May, [facility] [address] [facility] [id number] [place] [address]- 3105 May, [facility] [address] [facility] [id number] [place] [id number]29 Dec, IMMUNIZATIONS No Known Immunizations SOCIAL HISTORY Never Assessed REASON FOR VISIT Requests return call PLAN OF CARE VITAL SIGNS MEDICATIONS Unknown [...] Gall Bladder Surgical History Tubalization Hospitalization History [facility] 12/2014 Hospitalization History Obstructive Airway Disease, Mood disorder, cough-[facility] 07/02/15 Hospitalization History Bronchitis- [facility] 06/2016
--- OUTSIDE RECORDS SUMMARY | 2018-02-03 08:56 | XMS REPORT ---
Author Author AHSAN JEAN BAPTISTE [facility] Address [address] [place] [address] Care Team Providers Care Tree Sapper Name Role Phone AHSAN JEAN BAPTISTE Unavailable PROBLEMS Type Condition ICD9-CM Code VYD30-CO Code Onset Dates Condition Status SNOMED Code Problem Mixed hyperlipidemia E78.2 Active 629624033 Problem Bipolar affective disorder, currently manic, mild F31.11 Active 744055332 Problem Chronic fatigue R53.82 Active 15034674 Problem COPD exacerbation J44.1 Active 059735338 Problem Other chronic pain G89.29 Active 03060663 Problem Chronic obstructive pulmonary disease, unspecified COPD type J44.9 Active 92367426 Problem Slow transit constipation K59.01 Active 39000925 Problem Bipolar disorder, in partial remission, most recent episode mixed F31.77 Active 98622081 Problem Bipolar disorder, current episode mixed, mild F31.61 Active 161626368 Problem Bipolar II disorder F31.81 Active 00764973 Problem History of renal insufficiency syndrome Z87.448 Active 121680514 Problem Pharyngeal dysphagia R13.13 Active [id number] Problem Post-traumatic stress disorder, chronic F43.12 Active 96788402 Problem Confusion R41.0 Active 403247355 Problem Memory change R41.3 Active 083929219 Problem Dizziness R42 Active 717196225 ALLERGIES Substance Reaction Event Type Date Status Silk tape rash Non Drug Allergy May, Active ENCOUNTERS Encounter Location Date Diagnosis [facility] [address] [address] Nov, [facility] [address], [place] [address] Oct, [facility] [address], [place] [address] Oct, [facility] [address], [place] [address] Oct, [place] [address] [place] [id number] [place] [address] 03754- 4579 Oct, [facility] [address] [place] [address] [place] [address] 21628- 6638 Oct, [place] [address] [place] [address] [place] [address] 68383- 5022 September, Bipolar II disorder F31.81 and Post-traumatic stress disorder, chronic F43.12 [place] [address] [place] [address] [place] [address] 01818- 8674 September, Bipolar disorder, in partial remission, most recent episode mixed F31.77 [place] [address] [place] [address] [place] [address] 26452- 1491 September, COPD exacerbation J44.1 and Elevated blood pressure reading R03.0 [place] [address] [place] [address] [place] [address] 51773- 9044 September, [place] [address] [place] [address] [place] [address] 22553- 6940 September, Pain in left ankle and joints of left foot M25.572 ; Dermatitis L30.9 and Other chronic pain G89.29 [place] [address] [place] [address] [place] [address] 08481- 7541 Aug, Right elbow pain M25.521 and Elevated blood pressure reading R03.0 [place] [address] [place] [address] [place] [address] 78835- 8375 Aug, Bipolar disorder, current episode mixed, mild F31.61 and BMI 40.0-44.9, adult Z68.41 [place] [address] [place] [address] [place] [address] 14575- 0673 Aug, [place] [address] [place] [address] [place] [address] 76397- 4585 Aug, Bipolar II disorder F31.81 and Post-traumatic stress disorder, chronic F43.12 [place] [address] [place] [address] [place] [address] 92665- 4905 Jul, Elevated blood pressure reading R03.0 [place] [address]- 9623 Jul, Bipolar II disorder F31.81 and Post-traumatic stress disorder, chronic F43.[address] [address]83- 27[address] Jul, Bipolar disorder, current episode mixed, mild F31.61 [facility] [place] [address]39[place] -[address]76 Jul, Right foot pain M79.671 ; Allergic contact dermatitis, unspecified trigger L23.9 ; Contusion of right foot, initial encounter S90.31XA and BMI 40.0-44.9, adult Z68.41 [facility] [address] [address] Jul, 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 [address]- [address]655 Jul, [address] 70893- 5329 15 Jul, 2017 Bipolar disorder, current episode mixed, mild F31.61 [place] [id number] [place] [address] 36792- 0870 15 Jul, 2017 Bipolar II disorder F31.81 ; Post-traumatic stress disorder , chronic F43.12 and Memory change R41.[address] 29856- 3135 14 Jul, 2017 Elevated blood pressure reading R03.0 ; Chronic obstructive pulmonary disease, unspecified COPD type J44.9 ; Long-term use of high-risk medication Z79.899 and Cognitive decline R41.[id number] [place] [address] 53788- 8902 06 Jul, 2017 Elevated blood pressure reading R03.0 [place] [address] [place] [address] [place] [address] 27034- 2096 05 Jul, 2017 [place] [address] [place] [address] [place] [address] 07161- 9268 01 Jul, 2017 Bipolar II disorder F31.81 ; Post-traumatic stress disorder , chronic F43.12 and Memory change R41.3 [place] [address] [place] [address] [place] [address] 04627- 1441 Jun, [place] [address] [place] [address] [place] [address] 70129- 7820 Jun, Bipolar II disorder F31.81 ; Post-traumatic stress disorder , chronic F43.12 and Memory change R41.3 [place] [address] [place] [address] [place] [address] 42258- 7786 Jun, Localized swelling, mass or lump of neck R22.1 ; Slow transit constipation K59.01 and Elevated blood pressure reading R03.0 [place] [address] [place] [address] [place] [address] 62915- 8067 Jun, [place] [address] [place] [address] [place] [address] 20862- 4380 Jun, Bipolar affective disorder, currently manic, mild F31.11 [facility] [address] [address] [place] [address] 71987 -0631 May, [facility] [address] [address] [place] [address] 02182 -4038 14 May, 2017 [place] [address] [place] [address] [place] [address] 27025- 6587 13 May, 2017 Bipolar II disorder F31.81 ; Post-traumatic stress disorder , chronic F43.12 and Memory change R41.3 [place] [address] [place] [address] [place] [address] 94803- 6126 May, [facility] [address], [place] [address]- 5633 May, [facility] [address] [place] [address] 84943- 1166 May, Bipolar affective disorder, currently manic, mild F31.11 [facility] [address] [place] [address] 35229- 9057 May, [facility] [address] [address] May, Localized swelling, mass or lump of neck R22.1 and Localized swelling, mass and lump, head R22.0 [facility] [address], [place] [address]- 2502 Apr, [facility] [address] [place] [address] 88249- 2892 Apr, Bipolar affective disorder, currently manic, mild F31.11 [facility] [address] [address] [place] [address] 70037- 4159 Apr, Bipolar II disorder F31.81 [facility] [address], [place] [address]- 1463 Apr, [facility] [address] [place] [address] 81929- 8997 Apr, Bipolar affective disorder, currently manic, mild F31.11 [facility] [address], [place] [address]- 9754 Apr, Actinic keratosis L57.0 [facility] [address] [place] [address] 48610- 3219 Apr, Bipolar affective disorder, currently manic, mild F31.11 [facility] [address], [place] [address]- 6707 Apr, [facility] [address], [place] [address] Mar, Allergic contact dermatitis, unspecified trigger L23.9 and Right leg pain M79.604 [facility] [address], [place] [address]- 6044 Mar, [facility] [address] [address] [place] [address] 43728- 9914 Mar, Bipolar II disorder F31.81 ; Post-traumatic stress disorder , chronic F43.12 and Memory change R41.3 [facility] [address] [place] [address] 92530- 1752 Mar, Actinic keratosis L57.0 [facility] [address] [place] [address] 26208- 9216 28 Jan, 2017 Bipolar II disorder F31.81 ; Post-traumatic stress disorder , chronic F43.12 and Memory change R41.3 [place] [address] [place] [address] 25382- 1345 Jan, Bipolar affective disorder, currently manic, mild F31.11 [place] [address] [place] [address] [place] [address] 71983- 3213 13 Jan, 2017 Bipolar affective disorder, currently manic, mild F31.11 [place] [address], [place] [address]- 9287 07 Jan, 2017 Bipolar II disorder F31.81 ; Post-traumatic stress disorder , chronic F43.12 and Memory change R41.3 [facility] [address] [place] [address] 29283- 3961 Dec, Bipolar II disorder F31.81 ; Post-traumatic stress disorder , chronic F43.12 and Memory change R41.3 [facility] [address], [place] [address]- 7465 Dec, Bipolar affective disorder, currently manic, mild F31.11 [place] [address] [place] [address] [place] [address] 72606- 5942 Dec, Bipolar affective disorder, currently manic, mild F31.11 [facility] [address], [place] [address]- 6596 Dec, Post-traumatic stress disorder, chronic F43.12 [facility] [address] [place] [address] 38876- 1566 Dec, Bipolar II disorder F31.81 ; Post-traumatic stress disorder , chronic F43.12 and Memory change R41.3 [facility] [address] [place] [address] 05961- 2401 Dec, Post-traumatic stress disorder, chronic F43.12 [facility] [address] [place] [address] 82842- 4342 Nov, [facility] [address] [id number] [place] [address] 42954- 3942 Nov, Bipolar II disorder F31.81 ; Post-traumatic stress disorder , chronic F43.12 and Memory change R41.3 [facility] [address] [place] [address] 94404- 5676 Nov, [facility] [address] [place] [address] 37554- 1087 Nov, Post-traumatic stress disorder, chronic F43.12 and Bipolar II disorder F31.81 [facility] [address] [place] [address] 53032- 4061 Nov, Actinic keratosis L57.0 [facility] [address], [place] [address]- 8444 Oct, Bipolar II disorder F31.81 ; Post-traumatic stress disorder , chronic F43.12 and Memory change R41.3 [facility] [address] [place] [id number] [address]- 5316 Oct, Post-traumatic stress disorder, chronic F43.12 ; Bipolar II disorder F31.81 and Memory change R41.3 [facility] [address], [place] [address]- 0900 Oct, Bipolar II disorder F31.81 ; Post-traumatic stress disorder , chronic F43.12 and Memory change R41.3 [facility] [address], [place] [address]- 4996 Oct, Actinic keratosis L57.0 [facility] [address], [place] [address]- 8416 September, Bipolar II disorder F31.81 ; Post-traumatic stress disorder , chronic F43.12 and Memory change R41.3 [place] [address] [place] [address] 04591- 3250 September, Bipolar II disorder F31.81 ; Post-traumatic stress disorder , chronic F43.12 and Memory change R41.3 [place] [address] [place] [address] 71321- 8268 September, Post-traumatic stress disorder, chronic F43.12 ; Bipolar II disorder F31.81 and Memory change R41.3 [place] [address] [place] [address] 73145- 8008 Jul, Bipolar II disorder F31.81 ; Post-traumatic stress disorder , chronic F43.12 and Memory change R41.3 [place] [address], [place] [address]- 4909 Jul, Bipolar II disorder F31.81 ; Post-traumatic stress disorder , chronic F43.12 and Memory change R41.3 [facility] [address], [place] [address]- 8455 Jul, Bipolar II disorder F31.81 ; Post-traumatic stress disorder , chronic F43.12 and Memory change R41.3 [facility] [address], [place] [address]- 6658 Jul, Post-traumatic stress disorder, chronic F43.12 ; Bipolar II disorder F31.81 and Memory change R41.3 [place] [address], [place] [address]- 9197 23 Jul, 2016 Tear of medial meniscus of right knee, unspecified tear type , unspecified whether old or current tear, initial encounter S83.241A [place] [address], [place] [address]- 0132 21 Jul, 2016 Bipolar II disorder F31.81 ; Post-traumatic stress disorder , chronic F43.12 and Memory change R41.3 [place] [address] [place] [address] 68698- 9021 Jul, Shortness of breath R06.02 ; Mixed hyperlipidemia E78.2 and Chronic fatigue R53.82 [place] [address] [place] [address] [place] [address] 83716- 5512 Jul, Bipolar II disorder F31.81 ; Post-traumatic stress disorder , chronic F43.12 and Memory change R41.3 [place] [address] [place] [address] 54795- 0044 Jul, [place] [address] [place] [address] [place] [address] 57722- 8794 Jun, Bipolar II disorder F31.81 ; Post-traumatic stress disorder , chronic F43.12 and Memory change R41.3 [place] [address] [place] [address] 89474- 9037 Jun, Post-traumatic stress disorder, chronic F43.12 ; Bipolar II disorder F31.81 and Memory change R41.3 [place] [address] [place] [address] 01400- 5455 Jun, Right anterior knee pain M25.561 ; Shortness of breath R06.02 and Bronchiolitis J21.9 [place] [address] [place] [address] 27576- 8527 Jun, [place] [address] [place] [address] [place] [address] 10437- 1261 Jun, Bipolar II disorder F31.81 ; Post-traumatic stress disorder , chronic F43.12 and Memory change R41.3 [facility] [address] [place] [address] 93867- 0366 Jun, [facility] [address] [place] [id number] [place] [address] 04945- 2617 Jun, Bipolar II disorder F31.81 ; Post-traumatic stress disorder , chronic F43.12 and Memory change R41.3 [facility] [address] [place] [id number] [place] [address] 53189- 2831 May, [facility] [address] [place] [id number] [place] [address] 79380- 3877 May, [facility] [address] [place] [address] [place] [address] 41188- 8398 May, [facility] [address] [place] [address] [place] [address] 68604- 6604 May, Right anterior knee pain M25.561 ; Cough R05 ; Skin lesion of right arm L98.9 and Lesion of skin of face L98.9 [facility] [address] [place] [address] 85503- 6792 May, [facility] [address] [place] [address] 13876- 0670 May, Post-traumatic stress disorder, chronic F43.12 ; Memory change R41.3 and Bipolar I disorder, most recent episode manic F31.10 [facility] [address], [place] [address]- 8469 May, [facility] [address] [place] [address] [place] [address] 22699- 0509 May, Right anterior knee pain M25.561 [facility] [address], [place] [address]- 9426 May, [facility] [address] [place] [address] [place] [address] 53650- 9940 Apr, Bipolar II disorder F31.81 ; Post-traumatic stress disorder , chronic F43.12 and Memory change R41.3 [place] [address] [place] [address] 91643- 8224 Apr, Bipolar II disorder F31.81 ; Post-traumatic stress disorder , chronic F43.12 and Memory change R41.3 [place] [address] [place] [address] [place] [address] 13712- 1338 Apr, Post-traumatic stress disorder, chronic F43.12 ; Bipolar II disorder F31.81 and Memory change R41.3 [place] [address] [place] [address] [place] [address] 91077- 5407 Mar, Bipolar II disorder F31.81 ; Post-traumatic stress disorder , chronic F43.12 and Memory change R41.3 [place] [address] [place] [address] [place] [address] 15350- 0892 Mar, Memory change R41.3 ; Confusion R41.0 and Dizziness R42 [place] [id number] [place] [address] 95933- 9081 Mar, Memory change R41.3 ; Encounter for immunization Z23 and Fatigue, unspecified type R53.83 [place] [address] [place] [address] [place] [address] 61082- 1702 Mar, Bipolar II disorder F31.81 ; Post-traumatic stress disorder , chronic F43.12 and Memory change R41.3 [place] [address] [place] [address] 50957- 0435 Jan, Bipolar II disorder F31.81 ; Post-traumatic stress disorder , chronic F43.12 and Memory change R41.3 [place] [address] [place] [address] 81929- 6391 Jan, Post-traumatic stress disorder, chronic F43.12 ; Bipolar II disorder F31.81 ; Anxiety disorder, unspecified F41.9 and Memory change R41.3 [facility] [address], [place] [address]- 4358 15 Feb, 2016 Bipolar II disorder F31.81 ; Post-traumatic stress disorder , chronic F43.12 and Memory change R41.3 [facility] [address], [place] [address]- 5455 Dec, Bipolar II disorder F31.81 ; Post-traumatic stress disorder , chronic F43.12 and Memory change R41.3 [facility] [address], [place] [address]- 6660 Dec, Memory loss R41.3 [facility] [address] [place] [address] 19087- 3928 Dec, Bipolar II disorder F31.81 ; Post-traumatic stress disorder , chronic F43.12 and Memory change R41.3 [facility] [address], [place] [address]- 4943 Nov, Bipolar II disorder F31.81 and Post-traumatic stress disorder, chronic F43.12 [facility] [address], [place] [address]- 3087 Nov, Bipolar II disorder F31.81 ; Post-traumatic stress disorder , chronic F43.12 and Memory change R41.3 [facility] [address], [place] [address]- 8573 Oct, Post-traumatic stress disorder, chronic F43.12 and Bipolar disorder, unspecified F31.9 [facility] [address], [place] [address]- 2186 Oct, Bipolar II disorder F31.81 ; Post-traumatic stress disorder , chronic F43.12 and Memory change R41.3 [facility] [address] [address] Oct, Dental examination Z01.20 [facility] [address], [place] [address]- 7805 September, Bipolar II disorder F31.81 ; Post-traumatic stress disorder , chronic F43.12 and Memory change R41.3 [place] [address] [place] [address] [place] [address]- 7250 Aug, Bipolar II disorder F31.81 and Post-traumatic stress disorder, chronic F43.12 [place] [address] [place] [address] [place] [address]- 6495 Aug, Bipolar II disorder F31.81 and Post-traumatic stress disorder, chronic F43.12 [place] [address] [place] [address] [place] [address] 1581 Jul, Bipolar II disorder F31.81 and Post-traumatic stress disorder, chronic F43.12 [place] [address] [place] [address] [place] [address]- 7706 16 Jul, 2015 [place] [address] [place] [address]- 8368 Jul, [place] [address] [place] [address] [place] [address] 9786 Jul, Post-traumatic stress disorder, chronic F43.12 and Bipolar disorder, unspecified F31.9 [place] [address] [place] [address] [place] [address] 4069 Jun, Bipolar II disorder F31.81 and Post-traumatic stress disorder, chronic F43.12 [place] [address] [place] [address] [place] [address]- 9989 Jun, Post-traumatic stress disorder, chronic F43.12 and Bipolar disorder, unspecified F31.9 [place] [address] [place] [address] [place] [address]- 3162 Jun, [place] [address] [place] [address] [place] [address] 8708 Jun, Pharyngeal dysphagia R13.13 ; Hoarseness R49.0 and Cough R05 [place] [address] [place] [address]- 4706 Jun, Post-traumatic stress disorder, chronic F43.12 and Bipolar disorder, unspecified F31.9 [facility] [address] [address] [place] [address] 7726 30 May, 2015 Cough R05 [facility] [address] [place] [address] 52549- 5256 30 May, 2015 Post-traumatic stress disorder, chronic F43.12 and Bipolar disorder, unspecified F31.9 [facility] [address] [address] [place] [address] 33604- 2552 May, Cough R05 [facility] [address] [place] [address] [place] [address] 80659- 6040 16 May, 2015 [facility] [address] [id number] 16 May, 2015 Dental examination Z01.20 [facility] [address] [address] [place] [address] 51700- 0772 15 May, 2015 Bipolar II disorder F31.81 and Post-traumatic stress disorder, chronic F43.12 [facility] [address] [place] [address] 07533- 8400 14 May, 2015 [facility] [address] [place] [address] 03245- 2476 14 May, 2015 Bipolar II disorder F31.81 and Anxiety disorder, unspecified F41.9 [facility] [address] [place] [address] 67837- 5323 10 May, 2015 Memory change R41.3 and History of renal insufficiency syndrome Z87.448 [facility] [address] [place] [address] 62093- 2293 03 May, 2015 Memory change R41.3 ; Dry mouth R68.2 and History of renal insufficiency syndrome Z87.448 [facility] [address] [place] [address] 45627- 8118 May, Bipolar II disorder F31.81 and Post-traumatic stress disorder, chronic F43.12 [facility] [address] [place] [address] 12270- 8884 Mar, Bipolar disorder, unspecified F31.9 and Generalized anxiety disorder F41.1 [facility] [address] [place] [address] [id number] [id number] Mar, Bipolar II disorder F31.81 [facility] [id number] [place] [address] [phone] Mar, Encounter for immunization Z23 [facility] [id number] [place] [address] [phone] Mar, [facility] [id number] [place] [address] [id number] Mar, Bipolar II disorder F31.81 [facility] [id number] [place] [address] [phone] Mar, [facility] [id number] [place] [address] [address] Jan, Bipolar disorder, unspecified 296.80 and Anxiety disorder 300.00 [facility] [id number] [place] [address] 50211- 4259 Jan, [facility] [id number] [place] [address] 64093- 3030 Jan, Bipolar disorder, unspecified 296.80 and Anxiety disorder 300.00 [facility] [id number] [place] [address] 20749- 0855 Dec, Bipolar disorder, unspecified 296.80 and Anxiety disorder 300.00 [facility] [id number] [place] [address] 07117- 5000 Dec, [facility] [id number] [place] [address] 76156- 6130 Dec, Bipolar disorder, unspecified 296.80 and Anxiety disorder 300.00 [facility] [address] [address] Nov, Bipolar disorder, unspecified 296.80 and Anxiety disorder 300.00 [facility] [id number] [address] Oct, Bipolar disorder, unspecified 296.80 and Anxiety disorder 300.00 [facility] [id number] [place] [address] 82667- 8896 Oct, Anxiety 300.00 and Bipolar disorder, unspecified 296.80 [facility] [address] [address] September, Bipolar disorder, unspecified 296.80 and Anxiety disorder 300.00 [facility] [address] [address] September, [facility] [id number] [place] [address] 56458- 5507 Aug, Cough 786.2 [facility] [id number] [place] [address] 22621- 2699 Aug, [facility] [id number] [place] [address] 024157- 9832 Aug, [facility] [address] [address] Jul, [facility] [address] [address] 2776 Jul, [facility] [address] [address] 8316 Jul, [facility] [address], [place] [address]- 9426 Jul, [facility] [address] [address]76 Jul, [facility] [address] [address] 5636 Jul, [facility] [place] [facility] [address] [id number] [place] [address]- 1325 Jun, [facility] [place] [facility] [address] [id number] [place] [address]- 6543 Jun, [facility] [place] [facility] [address] [id number] [place] [address]- 1290 Jun, [facility] [place] [facility] [address] [id number] [place] [address]- 6694 Jun, [facility] [place] [facility] [address] [id number] [place] [address]- 1977 May, [facility] [place] [facility] [address] [id number] [place] [address]- 8799 May, [facility] [place] [facility] [address] [id number] [place] [address]- 5209 May, [facility] [place] [facility] [address] [id number] [place] [address]- 7880 May, [facility] [place] [facility] [address] [id number] [place] [address]- 1406 Apr, [facility] [place] [facility] [address] [id number] [place] [address]- 2298 Apr, [facility] [place] [facility] [address] [id number] [place] [address]- 2331 Mar, [facility] [place] [facility] [address] [id number] [address] 5543 Mar, [facility] [place] [facility] [address] [id number] [place] [address]- 7034 Mar, [facility] [place] [facility] [address] [id number] [place] [address]- 0667 Mar, [facility] [place] [facility] [address] [id number] [place] [address]- 3265 Mar, [facility] [place] [facility] [address] [id number], [place] [address] 7032 Mar, [facility] [place] [facility] [address] [id number] [place] [address]- 9067 Jan, 2013 [facility] [place] [facility] [address] [id number] [place] [address]- 5708 Jan, [facility] [place] [facility] [address] [id number] [place] [address]- 4002 Jan, 2013 [facility] [place] [facility] [address] [id number] [place] [address]- 6375 Jan, 2013 [facility] [place] [facility] [address] [id number] [place] [address]- 6213 Jan, [facility] [place] [facility] [address] [id number] [place] [address]- 9137 Jan, [facility] [place] [facility] [address] [id number] [place] [address]- 7397 Dec, [facility] [place] [facility] [address] [id number] [place] [address]- 8841 Dec, [facility] [place] [facility] [address] [id number] [place] [address]- 5636 Dec, [facility] [place] [facility] [address] [id number] [place] [address]- 3793 Dec, [facility] [place] [facility] [address] [id number] [place] [address]- 1630 Dec, [facility] [place] [facility] [address] [id number] [place] [address]- 3389 Dec, [facility] [place] [facility] [address] [id number] [place] [address]- 5335 Nov, [facility] [place] [facility] [address] [id number] [place] [address]- 8351 Nov, [facility] [place] [facility] [address] [id number] [place] [address]- 8737 Nov, [facility] [place] [facility] [address] [id number] [place] [address]- 8716 Nov, [facility] [place] [facility] [address] [id number] [place] [address]- 8835 Nov, [facility] [place] [facility] [address] [id number] [place] [address]- 2546 Nov, [facility] [place] [facility] [address] [id number] [place] [address]- 6100 Nov, [facility] [place] [facility] [address] [id number] [place] [address]- 1370 Nov, [facility] [place] [facility] [address] [id number] [place] [address]- 4039 Nov, [facility] [place] [facility] [address] [id number] [place] [address]- 5379 Nov, [facility] [place] [facility] [address] [id number] [place] [address]- 8449 September, [facility] [place] [facility] [address] [id number] [place] [address]- 5119 September, [facility] [place] [facility] [address] [id number] [place] [address]- 5604 September, [facility] [place] [facility] [address] [id number] [place] [address]- 5556 September, [facility] [place] [facility] [address] [id number] [place] [address]- 1136 September, [facility] [place] [facility] [address] [id number] [place] [address]- 1616 September, [facility] [place] [facility] [address] [id number] [place] [address]- 7166 September, [facility] [place] [facility] [address] [id number] [place] [address]- 2206 September, [facility] [place] [facility] [address] [id number] [place] [address]- 6229 Aug, [facility] [place] [facility] [address] [id number] [place] [address]- 2690 Aug, [facility] [place] [facility] [address] [id number] [place] [address]- 1152 Aug, [facility] [place] [facility] [address] [facility] [id number] [place] [address]- 9521 Aug, [facility] [place] [facility] [address] [id number] [place] [address]- 2656 Jul, [facility] [place] [facility] [address] [id number] [place] [address]- 8636 Jul, [facility] [place] [facility] [address] [id number] [place] [address]- 5656 Jul, [facility] [place] [facility] [address] [facility] [id number] [place] [address]- 2223 Jul, [facility] [place] [facility] [address] [facility] [id number] [place] [address]- 1101 Jul, [facility] [place] [facility] [address] [facility] [id number] [place] [address]- 9322 Jul, [facility] [place] [facility] [address] [facility] [id number] [place] [address]- 8001 Jul, [facility] [place] [facility] [address] [facility] [id number] [place] [address]- 5316 Jul, [facility] [place] [facility] [address] [facility] [id number] [place] [address]- 2877 Jul, [facility] [place] [facility] [address] [facility] [id number] [place] [address]- 9788 Jul, [facility] [place] [facility] [address] [facility] [id number] [place] [address]- 8137 Jul, [facility] [place] [facility] [address] [facility] [id number] [place] [address]- 8178 Jun, [facility] [place] [facility] [address] [id number] [place] [address]- 1330 Jun, [facility] [address] [id number] [place] [address]- 5987 Jun, [facility] [place] [facility] [address] [id number] [place] [address]- 7207 Jun, [facility] [place] [facility] [address] [id number] [place] [address]- 7487 May, [facility] [place] [facility] [address] [id number] [place] [address]- 7755 May, [facility] [place] [facility] [address] [id number] [place] [address]- 8732 Apr, [facility] [place] [facility] [address] [id number] [place] [address]- 0922 Apr, [facility] [place] [facility] [address] [id number] [place] [address]- 6537 Apr, [facility] [place] [facility] [address] [id number] [place] [address]- 0902 Apr, [facility] [place] [facility] [address] [id number] [place] [address]- 5402 Apr, [facility] [place] [facility] [address] [id number] [place] [address]- 2448 Apr, [facility] [place] [facility] [address] [id number] [place] [address]- 6064 Apr, [facility] [place] [facility] [address] [id number] [place] [address]- 4271 Apr, [facility] [place] [facility] [address] [id number] [place] [address]14 Apr, [facility] [place] [facility] [address] [id number] [place] [address] Apr, [facility] [place] [facility] [address] [id number] [place] [address]- 7740 Apr, [facility] [id number] [address]- 2546 Apr, [facility] [address], [place] [address]- 2546 Mar, [facility] [address], [place] [address]- 2546 Mar, [facility] [id number] [place] [address] 34471- 2546 Mar, [facility] [address], [place] [address] 2546 Dec, [facility] [id number] [place] [address] 11061- 2546 Dec, [facility] [id number], [place] [address]- 2546 Dec, [facility] [address], [place] [address] 2546 Oct, [facility] [id number] [place] [address] 94905- 2666 May, [facility] [address], [place] [address] 2546 May, [facility] [address], [place] [address]- 2546 May, [facility] [id number] [address] 2546 Dec, IMMUNIZATIONS No Known Immunizations SOCIAL HISTORY Never Assessed REASON FOR VISIT lump on left side of neck. been there for a week. went to a [facility] in [facility]...recommended she get an MRI. pt doctors with [facility] PLAN OF CARE Activity Details Follow Up prn Reason: VITAL SIGNS Height 66 in 2017-05-02 Weight 233.4 lbs 2017-05-02 Temperature 98.1 degrees Fahrenheit 2017-05-02 Heart Rate 84 bpm 2017-05-02 Respiratory Rate 20 2017-05-02 BMI 37.67 kg/m2 2017-05-02 Blood pressure systolic 142 mmHg 2017-05-02 Blood pressure diastolic 86 mmHg 2017-05-02 MEDICATIONS Medication Instructions Dosage Frequency Start Date End Date Duration Status Albuterol Sulfate 108 (90 Base) MCG/ACT Inhalation every 4-6 hrs 1 puff as needed May, Active Aristada 882 MG/3.2ML Intramuscular every month 3.2 ml Apr, 90 days Not-Taking Calcium 600 MG Orally Once a day 1 tablet with meals 24h 30 days Active Multivitamin Gummies Adult Active Vitamin D 2000 UNIT Orally Once a day 1 tablet 24h Active Abilify 30 MG Orally Once a day 1 tablet 24h Nov, Active Linzess 145 MCG Orally Once a day 1 capsule 24h Active Xanax 0.5 MG Orally Twice a day 1 tablet 12h Active Loxapine Succinate 5 MG Orally at night 1 capsule Oct, 30 days Active Advair Diskus 100-50 MCG/DOSE Inhalation Twice a day 1 puff 12h Active Topamax 50 MG Orally Twice a day for 2 weeks then once a day for two weeks then stop med-part of taper schedule 1 tablet Apr, 30 days Not -Taking Melatonin 5 MG 1 tablet at bedtime as needed with food Active Aspirin 81 MG Orally Once a day 1 tablet 24h Active Benztropine Mesylate 1 MG Orally twice a day 1 tablet 12h Active Fish Oil 1000 MG Orally Once a day 2 capsule 24h Active Nexium 40MG TAKE 1 CAPSULE DAILY Active Aristada 882 MG/3.2ML Intramuscular once monthly 3.2 ml Apr, 30 day(s) Active Premarin 0.9 MG Orally Once a day 1 tablet 24h Active Cymbalta 60 MG Orally Once a day 1 Capsule 24h Active RESULTS Name Result Date Reference Range Ultrasound : Neck PROCEDURES Procedure Date Ordered Result Body Site [facility] VISIT ESTABLISHED PATIENT May 02, 2017 INSTRUCTIONS MEDICATIONS ADMINISTERED No Known Medications [...] Bladder Surgical History Tubalization Hospitalization History [facility] 12/2014 Hospitalization History Obstructive Airway Disease, Mood disorder, cough-VC 07/02/15 Hospitalization History Bronchitis- [facility] 06/2016
[2018-02-03] MEDS ORDERED: LACTATED RINGERS 1,000 ML IV STA (08:58)
--- OUTSIDE RECORDS SUMMARY | 2018-02-03 08:58 | XMS REPORT ---
Author Author MACEYDREW [facility] Address [address] [place] [address] Care Team Providers Care Instructor Robotics Name Role Phone LUCILADREW AJ Unavailable PROBLEMS Type Condition ICD9-CM Code BFD28-IN Code Onset Dates Condition Status SNOMED Code Problem Confusion R41.0 Active 896128057 Problem Mixed hyperlipidemia E78.2 Active 993517504 Problem Dizziness R42 Active 214259597 Problem Other chronic pain G89.29 Active 65079396 Problem Bipolar disorder, current episode mixed, mild F31.61 Active 405331301 Problem Bipolar affective disorder, currently manic, mild F31.11 Active 612862619 Problem Chronic fatigue R53.82 Active 01658144 Problem Chronic obstructive pulmonary disease, unspecified COPD type J44.9 Active 57646075 Problem Slow transit constipation K59.01 Active 46976719 Problem Post-traumatic stress disorder, chronic F43.12 Active 42835659 Problem Memory change R41.3 Active 705674883 Problem History of renal insufficiency syndrome Z87.448 Active 981168118 Problem Bipolar II disorder F31.81 Active 34701712 Problem Pharyngeal dysphagia R13.13 Active [id number] ALLERGIES No Information ENCOUNTERS Encounter Location Date Diagnosis [facility] [id number] [address] Oct, [facility] [id number] [place] [address] 14852- 2505 Oct, [facility] [id number] [place] [address] 51913- 5835 Oct, [facility] [address], [place] [address] September, [facility] [id number] [place] [address] 67435- 2565 September, [place] [id number] [place] [address] 50634- 4100 September, Pain in left ankle and joints of left foot M25.572 ; Dermatitis L30.9 and Other chronic pain G89.29 [place] [id number] [place] [address] 03935- 2046 Aug, Right elbow pain M25.521 and Elevated blood pressure reading R03.0 [place] [id number] [place] [address] 25488- 5427 Aug, Bipolar disorder, current episode mixed, mild F31.61 and BMI 40.0-44.9, adult Z68.41 [place] [address] 53830- 3418 Aug, [place] [address] 06532- 5375 Aug, Bipolar II disorder F31.81 and Post-traumatic stress disorder, chronic F43.12 [place] [id number] [place] [address] 12447- 4027 Jul, Elevated blood pressure reading R03.0 [place] [id number] [place] [address] 55387- 0074 Jul, Bipolar II disorder F31.81 and Post-traumatic stress disorder, chronic F43.12 [place] [id number] [place] [address] 45068- 2361 Jul, Bipolar disorder, current episode mixed, mild F31.61 [facility] [id number] [place] [address] 42889 -6842 Jul, Right foot pain M79.671 ; Allergic contact dermatitis, unspecified trigger L23.9 ; Contusion of right foot, initial encounter S90.31XA and BMI 40.0-44.9, adult Z68.41 [facility] [id number] [place] [address] 59002 -3310 Jul, 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 [place] [id number] [place] [address] 81741- 9448 Jul, [place] [id number] [place] [address] 15 Jul, 2017 Bipolar disorder, current episode mixed, mild F31.61 [place] [address] 42429- 4265 15 Jul, 2017 Bipolar II disorder F31.81 ; Post-traumatic stress disorder , chronic F43.12 and Memory change R41.3 [place] [id number] [place] [address] 70452- 9009 14 Jul, 2017 Elevated blood pressure reading R03.0 ; Chronic obstructive pulmonary disease, unspecified COPD type J44.9 ; Long-term use of high-risk medication Z79.899 and Cognitive decline R41.89 [place] [id number] [place] [address] 08102- 2350 06 Jul, 2017 Elevated blood pressure reading R03.0 [place] [id number] [place] [address] 06349- 3025 05 Jul, 2017 [place] [id number] [place] [address] 83491- 7707 01 Jul, 2017 Bipolar II disorder F31.81 ; Post-traumatic stress disorder , chronic F43.12 and Memory change R41.3 [place] [id number] [place] [address] 62590- 8150 Jun, [place] [id number] [place] [address] 18356- 2137 Jun, Bipolar II disorder F31.81 ; Post-traumatic stress disorder , chronic F43.12 and Memory change R41.3 [place] [id number] [place] [address] 58175- 0239 Jun, Localized swelling, mass or lump of neck R22.1 ; Slow transit constipation K59.01 and Elevated blood pressure reading R03.0 [place] [id number] [place] [address] 74317- 7190 Jun, [place] [address] 26235- 9027 Jun, Bipolar affective disorder, currently manic, mild F31.11 [facility] [address] 14534 -0971 15 May, 2017 [facility] [address] 09794 -0783 May, [place] [address] 53343- 0875 May, Bipolar II disorder F31.81 ; Post-traumatic stress disorder , chronic F43.12 and Memory change R41.3 [place] [address] 88868- 1047 May, [place] [id number] [place] [address] 99895- 9057 May, [place] [id number] [place] [address] 53763- 7051 May, Bipolar affective disorder, currently manic, mild F31.11 [place] [id number] [place] [address] 13671- 1368 May, [facility] [id number] [place] [address] 06156 -4142 May, Localized swelling, mass or lump of neck R22.1 and Localized swelling, mass and lump, head R22.0 [place] [id number] [place] [address] 02007- 4872 Apr, [place] [id number] [place] [address] 58501- 1699 Apr, Bipolar affective disorder, currently manic, mild F31.11 [place] [address], [place] [address] 5100 07 Apr, 2017 Bipolar II disorder F31.81 [facility] [id number] [place] [address] 44620- 7766 Apr, [facility] [id number] [place] [address] 07062- 3237 Apr, Bipolar affective disorder, currently manic, mild F31.11 [facility] [id number] [place] [address] 20359- 7953 Apr, Actinic keratosis L57.0 [facility] [id number] [place] [address] 07506- 4646 Apr, Bipolar affective disorder, currently manic, mild F31.11 [facility] [id number] [place] [address] 94674- 6659 Apr, [facility] [id number] [place] [address] 34077 -7262 Mar, Allergic contact dermatitis, unspecified trigger L23.9 and Right leg pain M79.604 [facility] [id number] [place] [address] 73355- 6365 Mar, [facility] [id number] [place] [address] 40756- 4191 Mar, Bipolar II disorder F31.81 ; Post-traumatic stress disorder , chronic F43.12 and Memory change R41.3 [facility] [address] [place] [address] 50527- 0671 Mar, Actinic keratosis L57.0 [facility] [id number] [place] [address] 07215- 5731 Jan, Bipolar II disorder F31.81 ; Post-traumatic stress disorder , chronic F43.12 and Memory change R41.3 [facility] [id number] [place] [address] 86981- 9223 Jan, Bipolar affective disorder, currently manic, mild F31.11 [facility] [address] [facility] [id number] [address]- 8773 13 Jan, 2017 Bipolar affective disorder, currently manic, mild F31.11 [facility] [address] [facility] [id number], [place] [address]- 4336 07 Jan, 2017 Bipolar II disorder F31.81 ; Post-traumatic stress disorder , chronic F43.12 and Memory change R41.3 [facility] [address] [facility] [id number], [place] [address]- 4125 Dec, Bipolar II disorder F31.81 ; Post-traumatic stress disorder , chronic F43.12 and Memory change R41.3 [facility] [address] [facility] [id number], [place] [address]- 1624 Dec, Bipolar affective disorder, currently manic, mild F31.11 [facility] [id number], [place] [address]- 8557 Dec, Bipolar affective disorder, currently manic, mild F31.11 [facility] [address] [facility] [id number], [place] [address]- 1080 Dec, Post-traumatic stress disorder, chronic F43.12 [facility] [address] [facility] [id number], [place] [address]- 5192 Dec, Bipolar II disorder F31.81 ; Post-traumatic stress disorder , chronic F43.12 and Memory change R41.3 [facility] [address] [facility] [id number], [place] [address]- 1732 Dec, Post-traumatic stress disorder, chronic F43.12 [facility] [address] [facility] [id number], [place] [address]- 5171 Nov, [facility] [address] [facility] [id number], [place] [address]- 0175 Nov, Bipolar II disorder F31.81 ; Post-traumatic stress disorder , chronic F43.12 and Memory change R41.3 [place] [address], [place] [address]- 5426 Nov, [facility] [id number] [place] [address] 37531- 9284 Nov, Post-traumatic stress disorder, chronic F43.12 and Bipolar II disorder F31.81 [facility] [address], [place] [address]- 5505 Nov, Actinic keratosis L57.0 [facility] [address], [place] [address]- 8724 Oct, Bipolar II disorder F31.81 ; Post-traumatic stress disorder , chronic F43.12 and Memory change R41.3 [place] [address], [place] [address]- 0595 Oct, Post-traumatic stress disorder, chronic F43.12 ; Bipolar II disorder F31.81 and Memory change R41.3 [place] [address], [place] [address]- 7693 Oct, Bipolar II disorder F31.81 ; Post-traumatic stress disorder , chronic F43.12 and Memory change R41.3 [place] [address], [place] [address]- 9253 Oct, Actinic keratosis L57.0 [place] [address], [place] [address]- 1861 September, Bipolar II disorder F31.81 ; Post-traumatic stress disorder , chronic F43.12 and Memory change R41.3 [place] [address], [place] [address]- 8450 September, Bipolar II disorder F31.81 ; Post-traumatic stress disorder , chronic F43.12 and Memory change R41.3 [place] [address], [place] [address]- 0638 September, Post-traumatic stress disorder, chronic F43.12 ; Bipolar II disorder F31.81 and Memory change R41.3 [place] [address], [place] [address]- 8882 Jul, Bipolar II disorder F31.81 ; Post-traumatic stress disorder , chronic F43.12 and Memory change R41.3 [place] [address] [place] [address] 53656- 4631 15 Jul, 2016 Bipolar II disorder F31.81 ; Post-traumatic stress disorder , chronic F43.12 and Memory change R41.3 [place] [id number] [place] [address] 96160- 5788 Jul, Bipolar II disorder F31.81 ; Post-traumatic stress disorder , chronic F43.12 and Memory change R41.3 [place] [id number] [place] [address] 48537- 6490 Jul, Post-traumatic stress disorder, chronic F43.12 ; Bipolar II disorder F31.81 and Memory change R41.3 [place] [id number] [place] [address] 59476- 0382 23 Jul, 2016 Tear of medial meniscus of right knee, unspecified tear type , unspecified whether old or current tear, initial encounter S83.241A [place] [id number] [place] [address] 73623- 3840 21 Jul, 2016 Bipolar II disorder F31.81 ; Post-traumatic stress disorder , chronic F43.12 and Memory change R41.3 [place] [address] [place] [address] 47649- 0161 07 Jul, 2016 Shortness of breath R06.02 ; Mixed hyperlipidemia E78.2 and Chronic fatigue R53.82 [place] [id number] [place] [address] 23248- 9871 07 Jul, 2016 Bipolar II disorder F31.81 ; Post-traumatic stress disorder , chronic F43.12 and Memory change R41.3 [place] [id number] [place] [address] 90669- 0288 Jul, [facility] [id number] [place] [address] 31012- 5058 Jun, Bipolar II disorder F31.81 ; Post-traumatic stress disorder , chronic F43.12 and Memory change R41.3 [facility] [id number] [place] [address] 50366- 9563 Jun, Post-traumatic stress disorder, chronic F43.12 ; Bipolar II disorder F31.81 and Memory change R41.3 [facility] [id number] [place] [address] 26656- 4296 Jun, Right anterior knee pain M25.561 ; Shortness of breath R06.02 and Bronchiolitis J21.9 [facility] [id number] [place] [address] 88530- 3724 Jun, [facility] [id number] [place] [address] 33079- 8249 Jun, Bipolar II disorder F31.81 ; Post-traumatic stress disorder , chronic F43.12 and Memory change R41.3 [facility] [id number] [place] [address] 38233- 6661 Jun, [facility] [id number] [place] [address] 49900- 0429 Jun, Bipolar II disorder F31.81 ; Post-traumatic stress disorder , chronic F43.12 and Memory change R41.3 [facility] [id number] [place] [address] 01923- 7176 May, [facility] [id number] [place] [address] 42450- 5279 May, [facility] [id number] [place] [address] 66421- 5342 May, [facility] [address], [place] [address]- 0537 May, Right anterior knee pain M25.561 ; Cough R05 ; Skin lesion of right arm L98.9 and Lesion of skin of face L98.9 [place] [id number] [place] [address] 97628- 5906 May, [facility] [id number] [place] [address]- 6957 May, Post-traumatic stress disorder, chronic F43.12 ; Memory change R41.3 and Bipolar I disorder, most recent episode manic F31.10 [place] [id number] [place] [address] 19992- 2881 May, [place] [address] 471706- 7310 May, Right anterior knee pain M25.561 [place] [address] 06471- 7342 May, [place] [id number] [place] [address] 12244- 6335 Apr, Bipolar II disorder F31.81 ; Post-traumatic stress disorder , chronic F43.12 and Memory change R41.3 [place] [id number] [place] [address] 00635- 9301 Apr, Bipolar II disorder F31.81 ; Post-traumatic stress disorder , chronic F43.12 and Memory change R41.3 [place] [id number] [place] [address] 50750- 8465 Apr, Post-traumatic stress disorder, chronic F43.12 ; Bipolar II disorder F31.81 and Memory change R41.3 [place] [id number] [place] [address] 65099- 8311 Mar, Bipolar II disorder F31.81 ; Post-traumatic stress disorder , chronic F43.12 and Memory change R41.3 [place] [id number] [place] [address] 87255- 2363 Mar, Memory change R41.3 ; Confusion R41.0 and Dizziness R42 [place] [address], [place] [address]- 6805 05 Mar, 2016 Memory change R41.3 ; Encounter for immunization Z23 and Fatigue, unspecified type R53.83 [place] [address] [address]- 9108 03 Mar, 2016 Bipolar II disorder F31.81 ; Post-traumatic stress disorder , chronic F43.12 and Memory change R41.3 [place] [id number] [place] [address] 32037- 1362 21 Feb, 2016 Bipolar II disorder F31.81 ; Post-traumatic stress disorder , chronic F43.12 and Memory change R41.3 [place] [id number] [place] [address] 66186- 9802 19 Feb, 2016 Post-traumatic stress disorder, chronic F43.12 ; Bipolar II disorder F31.81 ; Anxiety disorder, unspecified F41.9 and Memory change R41.3 [place] [address] [place] [address] 23479- 7916 15 Feb, 2016 Bipolar II disorder F31.81 ; Post-traumatic stress disorder , chronic F43.12 and Memory change R41.3 [place] [address] [place] [address] 60206- 4507 Dec, Bipolar II disorder F31.81 ; Post-traumatic stress disorder , chronic F43.12 and Memory change R41.3 [place] [address], [place] [address]- 1941 16 Jan, 2016 Memory loss R41.3 [place] [id number] [place] [address] 55507- 6016 Dec, Bipolar II disorder F31.81 ; Post-traumatic stress disorder , chronic F43.12 and Memory change R41.3 [place] [address], [place] [address]- 0127 Nov, Bipolar II disorder F31.81 and Post-traumatic stress disorder, chronic F43.12 [facility] [address], [place] [address]- 2263 Nov, Bipolar II disorder F31.81 ; Post-traumatic stress disorder , chronic F43.12 and Memory change R41.3 [facility] [address], [place] [address]- 9126 Oct, Post-traumatic stress disorder, chronic F43.12 and Bipolar disorder, unspecified F31.9 [facility] [id number] [place] [address] 68123- 8144 Oct, Bipolar II disorder F31.81 ; Post-traumatic stress disorder , chronic F43.12 and Memory change R41.3 [facility] [id number] [id number] Oct, Dental examination Z01.20 [facility] [id number] [place] [address] 14203- 1660 September, Bipolar II disorder F31.81 ; Post-traumatic stress disorder , chronic F43.12 and Memory change R41.3 [facility] [id number] [place] [address] 77907- 9771 Aug, Bipolar II disorder F31.81 and Post-traumatic stress disorder, chronic F43.12 [facility] [id number] [place] [address] 93016- 0035 Aug, Bipolar II disorder F31.81 and Post-traumatic stress disorder, chronic F43.12 [facility] [address], [place] [address]- 9294 Jul, Bipolar II disorder F31.81 and Post-traumatic stress disorder, chronic F43.12 [facility] [address] [place] [address]- 9101 Jul, [facility] [id number] [place] [address] 58587- 4828 Jul, [facility] [id number] [place] [address]- 8919 15 Jul, 2015 Post-traumatic stress disorder, chronic F43.12 and Bipolar disorder, unspecified F31.9 [facility] [address] 631 Jun, Bipolar II disorder F31.81 and Post-traumatic stress disorder, chronic F43.12 [facility] [address] [place] [address]- 096 Jun, Post-traumatic stress disorder, chronic F43.12 and Bipolar disorder, unspecified F31.9 [facility] [address] 170 Jun, [place] [address] 366 Jun, Pharyngeal dysphagia R13.13 ; Hoarseness R49.0 and Cough R05 [facility] [address] 34810- 9343 Jun, Post-traumatic stress disorder, chronic F43.12 and Bipolar disorder, unspecified F31.9 [facility] [address] [place] 358950- 2722 May, Cough R05 [facility] [address] 385950- 3429 May, Post-traumatic stress disorder, chronic F43.12 and Bipolar disorder, unspecified F31.9 [facility] [id number] [place] [address] 29816- 3457 May, Cough R05 [facility] [address] 40554- 7407 May, [facility] [address] [id number] May, Dental examination Z01.20 [facility] [address] 87042- 5488 May, Bipolar II disorder F31.81 and Post-traumatic stress disorder, chronic F43.12 [facility] [id number] [place] [address] 79377- 3941 May, [facility] [id number] [place] [address] 55002- 9200 May, Bipolar II disorder F31.81 and Anxiety disorder, unspecified F41.9 [facility] [address] 26833- 3103 May, Memory change R41.3 and History of renal insufficiency syndrome Z87.448 [facility] [address] 38009- 4337 May, Memory change R41.3 ; Dry mouth R68.2 and History of renal insufficiency syndrome Z87.448 [facility] [address] 78364- 7013 May, Bipolar II disorder F31.81 and Post-traumatic stress disorder, chronic F43.12 [facility] [id number] [place] [address] 89799- 9852 Mar, Bipolar disorder, unspecified F31.9 and Generalized anxiety disorder F41.1 [facility] [id number] [place] [address] 32908- 2938 Mar, Bipolar II disorder F31.81 [facility] [id number] [place] [address] 12146- 7123 Mar, Encounter for immunization Z23 [facility] [id number] [place] [address] 49698- 0650 Mar, [facility] [address] 29301- 5092 Mar, Bipolar II disorder F31.81 [facility] [id number] [place] [address] 04156- 8534 Mar, [facility] [address] 47094- 2614 Jan, Bipolar disorder, unspecified 296.80 and Anxiety disorder 300.00 [facility] [address], [place] [address]- 5680 Jan, [facility] [id number] [place] [address] 69542672- 5212 Jan, Bipolar disorder, unspecified 296.80 and Anxiety disorder 300.00 [facility] [id number] [place] [place] [address]87- 6563 Dec, Bipolar disorder, unspecified 296.80 and Anxiety disorder 300.00 [facility] [id number] [place] [address] 01701- 6676 Dec, [facility] [id number] [place] [address] 00161- 6938 Dec, Bipolar disorder, unspecified 296.80 and Anxiety disorder 300.00 [facility] [id number] [place] [address] 26083- 2842 Nov, Bipolar disorder, unspecified 296.80 and Anxiety disorder 300.00 [facility] [id number] [place] [address] 17828- 2537 Oct, Bipolar disorder, unspecified 296.80 and Anxiety disorder 300.00 [facility] [id number] [place] [address] 88146- 8281 Oct, Anxiety 300.00 and Bipolar disorder, unspecified 296.80 [facility] [id number] [place] [address] 67739- 7896 September, Bipolar disorder, unspecified 296.80 and Anxiety disorder 300.00 [facility] [id number] [place] [address] 95496- 8204 September, [facility] [id number] [place] [address] 77576- 6698 Aug, Cough 786.2 [facility] [id number] [place] [address] 69388- 0180 14 Aug, 2014 [facility] [place] [facility] [address] [id number] [place] [address]- 2561 Aug, [facility] [place] [facility] [address] [id number] [place] [address]- 5178 Jul, [facility] [place] [facility] [address] [facility] [id number] [place] [address]- 1733 Jul, [facility] [place] [facility] [address] [id number] [place] [address]- 5308 Jul, [facility] [place] [facility] [address] [id number] [place] [address]- 5705 Jul, [facility] [place] [facility] [address] [facility] [id number] [place] [address]- 2248 Jul, [facility] [place] [facility] [address] [facility] [id number] [place] [address]- 9830 Jul, [facility] [place] [facility] [address] [facility] [id number] [place] [address]- 1655 Jun, [facility] [place] [facility] [address] [facility] [id number] [place] [address]- 5542 Jun, [facility] [place] [facility] [address] [facility] [id number] [place] [address]- 1153 Jun, [facility] [place] [facility] [address] [facility] [id number] [address]- 6116 Jun, [facility] [place] [facility] [address] [id number], [place] [address]- 8336 May, [facility] [place] [facility] [address] [id number] [place] 9[address] May, [facility] [place] [facility] [address] [facility] [id number] [place] [address]- 3373 May, [facility] [place] [facility] [address] [facility] [id number] [place] [address]- 8007 May, [facility] [place] [facility] [address] [id number] [place] [address]- 8006 Apr, [facility] [place] [facility] [address] [id number] [place] 7497 Apr, [facility] [place] [facility] [address] [id number] [place] [address]- 6732 Mar, [facility] [place] [facility] [address] [id number] [place] [address]- 7990 Mar, [facility] [place] [facility] [address] [id number] [place] [address]- 8289 Mar, [facility] [place] [facility] [address] [id number] [place] [address]- 5174 Mar, [facility] [place] [facility] [address] [id number] [place] [address]- 6181 Mar, [facility] [place] [facility] [address] [id number] [place] [address]- 8157 Mar, [facility] [place] [facility] [address] [id number] [place] [address]- 7309 Jan, [facility] [place] [facility] [address] [id number] [place] [address]- 4285 Jan, [facility] [place] [facility] [address] [id number] [place] [address]- 1361 Jan, [facility] [place] [facility] [address] [id number] [place] [address]- 0971 05 Jan, 2013 [facility] [place] [facility] [address] [id number] [place] [address]- 1396 Jan, [facility] [place] [facility] [address] [id number] [place] [address]- 0536 Jan, [facility] [place] [facility] [address] [id number] [place] [address] Dec, [facility] [place] [facility] [address] [id number] [place] [address]- 8895 Dec, [facility] [place] [facility] [address] [id number] [place] [address]- 0632 Dec, [facility] [place] [facility] [address] [id number] [place] [address]- 5412 Dec, [facility] [place] [facility] [address] [id number] [place] [address]- 4265 Dec, [facility] [place] [facility] [address] [id number] [place] [address]- 0787 Dec, [facility] [place] [facility] [address] [id number] [place] [address]- 4606 Nov, [facility] [place] [facility] [address] [id number] [place] [address]- 3193 Nov, [facility] [place] [facility] [address] [id number] [place] [address]- 3016 Nov, [facility] [place] [facility] [address] [id number] [place] [address]- 0847 Nov, [facility] [place] [facility] [address] [id number] [place] [address]- 0308 Nov, [facility] [place] [facility] [address] [id number] [place] [address]- 5883 Nov, [facility] [place] [facility] [address] [id number] [place] [address]- 7612 Nov, [facility] [place] [facility] [address] [id number] [place] [address]- 4490 Nov, [facility] [place] [facility] [address] [id number] [place] [address]- 4965 Nov, [facility] [place] [facility] [address] [id number] [place] [address]- 8318 Nov, [facility] [place] [facility] [address] [id number] [place] [address]- 9823 September, [facility] [place] [facility] [address] [id number] [place] [address]- 3160 September, [facility] [place] [facility] [address] [id number] [place] [address]- 0795 September, [facility] [place] [facility] [address] [id number] [place] [address]- 5090 September, [facility] [place] [facility] [address] [id number] [place] [address]- 3787 September, [facility] [place] [facility] [address] [id number] [place] [address]- 3566 September, [facility] [place] [facility] [address] [id number] [place] [address]47 September, [facility] [place] [facility] [address] [id number] [place] [address]- 7823 September, [facility] [place] [facility] [address] [id number] [place] [address]- 7225 Aug, [facility] [place] [facility] [address] [id number] [place] [address]- 1620 Aug, [facility] [place] [facility] [address] [id number] [place] [address]- 4480 Aug, [facility] [place] [facility] [address] [facility] [id number] [place] [address]- 7005 Aug, [facility] [place] [facility] [address] [id number] [place] [address]- 4817 Jul, [facility] [place] [facility] [address] [id number] [place] [address]- 7876 Jul, [facility] [place] [facility] [address] [id number] [place] [address]- 0406 Jul, [facility] [place] [facility] [address] [id number] [place] [address]- 2343 Jul, [facility] [place] [facility] [address] [id number] [place] [address]- 2851 Jul, [facility] [place] [facility] [address] [id number] [place] [address]- 3823 Jul, [facility] [place] [facility] [address] [id number] [place] [address]- 3756 Jul, [facility] [place] [facility] [address] [id number] [place] [address]- 6625 Jul, [facility] [place] [facility] [address] [id number] [place] [address]- 6957 Jul, [facility] [place] [facility] [address] [id number] [place] [address]- 7065 Jul, [facility] [place] [facility] [address] [id number] [place] [address]- 0026 Jul, [facility] [place] [facility] [address] [id number] [place] [address]- 7928 Jun, [facility] [place] [facility] [address] [id number] [place] [address]- 8187 Jun, [facility] [place] [facility] [address] [id number] [place] [address]- 5180 Jun, [facility] [place] [facility] [address] [facility] [id number] [place] [address]- 0560 Jun, [facility] [place] [facility] [address] [id number] [place] [address]- 2411 May, [facility] [place] [facility] [address] [id number] [place] [address]- 1208 May, [facility] [place] [facility] [address] [id number] [place] [address]- 2314 Apr, [facility] [place] [facility] [address] [id number] [place] [address]- 3759 Apr, [facility] [place] [facility] [address] [id number] [place] [address]- 4350 Apr, [facility] [place] [facility] [address] [id number] [place] [address]- 0886 Apr, [facility] [place] [facility] [address] [id number] [place] [address]- 2346 Apr, [facility] [place] [facility] [address] [id number] [place] [address]- 9127 Apr, [facility] [place] [facility] [address] [id number] [place] [address]- 5017 Apr, [facility] [place] [facility] [address] [id number] [place] [address]- 0413 Apr, [facility] [place] [facility] [address] [id number] [place] [address]- 7831 Apr, [facility] [place] [facility] [address] [id number] [place] [address]- 0228 Apr, [facility] [place] [facility] [address] [id number] [place] [address]- 7899 Apr, [facility] [place] [facility] [address] [id number] [place] [address]- 2074 Apr, [facility] [place] [facility] [address] [id number] [place] [address]- 8069 Mar, [facility] [place] [facility] [address] [id number] [place] [address]- 6192 Mar, [facility] [place] [facility] [address] [id number] [place] [address]- 5960 Mar, [facility] [place] [facility] [address] [id number] [place] [address]- 2189 Dec, [facility] [place] [facility] [address] [id number] [place] [address]- 8308 Dec, [facility] [place] [facility] [address] [id number] [place] [address]- 2648 Dec, [facility] [place] [facility] [address] [id number] [place] [address]- 1111 Oct, [facility] [address] [facility] [id number] [place] [address]- 2168 May, [facility] [address] [facility] [id number], [place] [address]- 7776 May, [facility] [address] [facility] [id number], [place] [address] 2546 May, [facility] [address] [facility] [id number], [place] [address]- 6646 Dec, IMMUNIZATIONS No Known Immunizations SOCIAL HISTORY Never Assessed REASON FOR VISIT PLAN OF CARE VITAL SIGNS MEDICATIONS Medication Instructions Dosage Frequency Start Date End Date Duration Status Aristada 882 MG/3.2ML Intramuscular every month 3.2 ml Apr, 30 day(s) Active RESULTS No Results PROCEDURES [...] Gall Bladder Surgical History Tubalization Hospitalization History [facility] 12/2014 Hospitalization History Obstructive Airway Disease, Mood disorder, cough-[facility] 07/02/15 Hospitalization History Bronchitis- [facility] 06/2016
--- OUTSIDE RECORDS SUMMARY | 2018-02-03 08:59 | XMS REPORT ---
Author Author MARYSOL CANSECO [facility] Address [address] [place] [address] Care Team Providers Care Cork Molder Name Role Phone MARYSOL CANSECO Unavailable PROBLEMS Type Condition ICD9-CM Code [id number] Code Onset Dates Condition Status SNOMED Code Problem Dizziness R42 Active 016966797 Problem Chronic fatigue R53.82 Active 05539639 Problem Mixed hyperlipidemia E78.2 Active 147215229 Problem COPD exacerbation J44.1 Active 767708768 Problem Other chronic pain G89.29 Active 45585333 Problem Slow transit constipation K59.01 Active 59729023 Problem Bipolar affective disorder, currently manic, mild F31.11 Active 311236740 Problem Bipolar disorder, current episode mixed, mild F31.61 Active 143565904 Problem Chronic obstructive pulmonary disease, unspecified COPD type J44.9 Active 51765287 Problem Memory change R41.3 Active 932997855 Problem History of renal insufficiency syndrome Z87.448 Active 353011749 Problem Bipolar II disorder F31.81 Active 83606705 Problem Pharyngeal dysphagia R13.13 Active [id number] Problem Post-traumatic stress disorder, chronic F43.12 Active 96281629 Problem Confusion R41.0 Active 195087988 ALLERGIES Substance Reaction Event Type Date Status Silk tape rash Non Drug Allergy Apr, Active ENCOUNTERS Encounter Location Date Diagnosis [facility] [address] [facility] [id number] [address] Oct, [facility] [address] [address] Oct, [facility] [id number], [place] [address] Oct, [facility] [id number] [address] September, [facility] [id number] [place] [address] 44388- 6357 September, COPD exacerbation J44.1 and Elevated blood pressure reading R03.0 [facility] [id number] [place] [address] 99992- 0638 September, [facility] [id number] [place] [address] 45393- 4638 September, Pain in left ankle and joints of left foot M25.572 ; Dermatitis L30.9 and Other chronic pain G89.29 [place] [address] [address]- 5875 Aug, Right elbow pain M25.521 and Elevated blood pressure reading R03.0 [place] [id number] [place] [address] 88211- 7448 Aug, Bipolar disorder, current episode mixed, mild F31.61 and BMI 40.0-44.9, adult Z68.41 [place] [id number] [place] [address] 36929- 5806 Aug, [facility] [id number] [place] [address] 28901- 6242 Aug, Bipolar II disorder F31.81 and Post-traumatic stress disorder, chronic F43.12 [place] [id number] [place] [address] 14653- 4257 Jul, Elevated blood pressure reading R03.0 [facility] [id number] [place] [address] 80230- 0698 Jul, Bipolar II disorder F31.81 and Post-traumatic stress disorder, chronic F43.12 [place] [id number] [place] [address] 31394- 5566 Jul, Bipolar disorder, current episode mixed, mild F31.61 [facility] [id number] [place] [address] 25749 -9005 Jul, Right foot pain M79.671 ; Allergic contact dermatitis, unspecified trigger L23.9 ; Contusion of right foot, initial encounter S90.31XA and BMI 40.0-44.9, adult Z68.41 [facility] [id number] [place] [address] 92209 -3927 Jul, 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 [address] 7[address]- 5785 Jul, [place] [address] 99535- 2060 15 Jul, 2017 Bipolar disorder, current episode mixed, mild F31.61 [place] [address] 00925- 2737 15 Jul, 2017 Bipolar II disorder F31.81 ; Post-traumatic stress disorder , chronic F43.12 and Memory change R41.3 [facility] [id number] [place] [address] 80980- 0191 14 Jul, 2017 Elevated blood pressure reading R03.0 ; Chronic obstructive pulmonary disease, unspecified COPD type J44.9 ; Long-term use of high-risk medication Z79.899 and Cognitive decline R41.89 [place] [id number] [place] [address] 46771- 3619 06 Jul, 2017 Elevated blood pressure reading R03.0 [facility] [id number] [place] [address] 75625- 0910 05 Jul, 2017 [place] [address] 06672- 8461 01 Jul, 2017 Bipolar II disorder F31.81 ; Post-traumatic stress disorder , chronic F43.12 and Memory change R41.3 [place] [id number] [place] [address] 85307- 2730 Jun, [facility] [address] 50946- 5087 Jun, Bipolar II disorder F31.81 ; Post-traumatic stress disorder , chronic F43.12 and Memory change R41.3 [place] [id number] [place] [address] 65522- 7330 Jun, Localized swelling, mass or lump of neck R22.1 ; Slow transit constipation K59.01 and Elevated blood pressure reading R03.0 [place] [id number] [place] [address] 29668- 5655 Jun, [place] [id number] [place] [address] 42354- 8377 Jun, Bipolar affective disorder, currently manic, mild F31.11 [facility] [place] [id number] [place] [address] 47218 -4753 15 May, 2017 [facility] [place] [id number] [place] [address] 30271 -0277 May, [place] [id number] [place] [address] 97731- 2799 May, Bipolar II disorder F31.81 ; Post-traumatic stress disorder , chronic F43.12 and Memory change R41.3 [place] [id number] [place] [address] 28439- 0394 11 May, 2017 [place] [id number] [place] [address] 17704- 0435 May, [place] [id number] [place] [address] 13587- 8286 05 May, 2017 Bipolar affective disorder, currently manic, mild F31.11 [place] [id number] [place] [address] 80800- 3491 04 May, 2017 [facility] [place] [id number] [place] [address] 45452 -4109 May, Localized swelling, mass or lump of neck R22.1 and Localized swelling, mass and lump, head R22.0 [place] [id number] [place] [address] 98975- 3334 Apr, [facility] [id number] [place] [address] 34266- 8194 Apr, Bipolar affective disorder, currently manic, mild F31.11 [facility] [id number] [place] [address] 36346- 7972 Apr, Bipolar II disorder F31.81 [facility] [id number] [place] [address] 74816- 9065 Apr, [facility] [id number] [place] [address] 10288- 6534 Apr, Bipolar affective disorder, currently manic, mild F31.11 [place] [id number] [place] [address] 93118- 2259 Apr, Actinic keratosis L57.0 [facility] [id number] [place] [address] 92373- 6245 Apr, Bipolar affective disorder, currently manic, mild F31.11 [facility] [id number] [place] [address] 51388- 7688 Apr, [facility] [id number] [place] [address] 00644 -0885 Mar, Allergic contact dermatitis, unspecified trigger L23.9 and Right leg pain M79.604 [facility] [id number] [place] [address] 66431- 3307 Mar, [facility] [id number] [place] [address] 89151- 9759 Mar, Bipolar II disorder F31.81 ; Post-traumatic stress disorder , chronic F43.12 and Memory change R41.3 [facility] [id number] [place] [address] 67113- 4391 Mar, Actinic keratosis L57.0 [facility] [address] [place] [address]- 9922 28 Jan, 2017 Bipolar II disorder F31.81 ; Post-traumatic stress disorder , chronic F43.12 and Memory change R41.3 [facility] [address], [place] [address]- 9153 28 Jan, 2017 Bipolar affective disorder, currently manic, mild F31.11 [facility] [address], [place] [address]- 3158 13 Jan, 2017 Bipolar affective disorder, currently manic, mild F31.11 [facility] [address], [place] [address]- 7507 07 Jan, 2017 Bipolar II disorder F31.81 ; Post-traumatic stress disorder , chronic F43.12 and Memory change R41.3 [facility] [address], [place] [address]- 9342 Dec, Bipolar II disorder F31.81 ; Post-traumatic stress disorder , chronic F43.12 and Memory change R41.3 [facility] [address], [place] [address]- 5279 Dec, Bipolar affective disorder, currently manic, mild F31.11 [facility] [address], [place] [address]- 2537 Dec, Bipolar affective disorder, currently manic, mild F31.11 [facility] [address], [place] [address]- 6470 Dec, Post-traumatic stress disorder, chronic F43.12 [facility] [address], [place] [address]- 2578 Dec, Bipolar II disorder F31.81 ; Post-traumatic stress disorder , chronic F43.12 and Memory change R41.3 [facility] [address] [id number] [address]- 1433 Dec, Post-traumatic stress disorder, chronic F43.12 [facility] [id number] [address]- 5148 Nov, [facility] [id number] [place] [address] 08268- 9856 Nov, Bipolar II disorder F31.81 ; Post-traumatic stress disorder , chronic F43.12 and Memory change R41.3 [facility] [address], [place] [address]- 1117 Nov, [facility] [id number] [place] [address] 87178- 8602 Nov, Post-traumatic stress disorder, chronic F43.12 and Bipolar II disorder F31.81 [facility] [id number] [place] [address] 86006- 9943 Nov, Actinic keratosis L57.0 [facility] [address] [place] [address] 84324- 8476 Oct, Bipolar II disorder F31.81 ; Post-traumatic stress disorder , chronic F43.12 and Memory change R41.3 [facility] [address] [place] [address] 14272- 5413 Oct, Post-traumatic stress disorder, chronic F43.12 ; Bipolar II disorder F31.81 and Memory change R41.3 [facility] [address], [place] [address]- 9678 Oct, Bipolar II disorder F31.81 ; Post-traumatic stress disorder , chronic F43.12 and Memory change R41.3 [facility] [address], [place] [address]- 0591 Oct, Actinic keratosis L57.0 [facility] [address] [place] [address] 23356- 6164 September, Bipolar II disorder F31.81 ; Post-traumatic stress disorder , chronic F43.12 and Memory change R41.3 [facility] [address] [place] [address] 24579- 9664 September, Bipolar II disorder F31.81 ; Post-traumatic stress disorder , chronic F43.12 and Memory change R41.3 [place] [id number] [place] [address] 76785- 3836 September, Post-traumatic stress disorder, chronic F43.12 ; Bipolar II disorder F31.81 and Memory change R41.3 [place] [id number] [place] [address] 94806- 4487 Jul, Bipolar II disorder F31.81 ; Post-traumatic stress disorder , chronic F43.12 and Memory change R41.3 [place] [id number] [place] [address] 97715- 3864 Jul, Bipolar II disorder F31.81 ; Post-traumatic stress disorder , chronic F43.12 and Memory change R41.3 [place] [id number] [place] [address] 87094- 8419 Jul, Bipolar II disorder F31.81 ; Post-traumatic stress disorder , chronic F43.12 and Memory change R41.3 [place] [id number] [place] [address] 92533- 4481 Jul, Post-traumatic stress disorder, chronic F43.12 ; Bipolar II disorder F31.81 and Memory change R41.3 [place] [id number] [place] [address] 15799- 5701 Jul, Tear of medial meniscus of right knee, unspecified tear type , unspecified whether old or current tear, initial encounter S83.241A [facility] [address] [place] [address] 17696- 3757 Jul, Bipolar II disorder F31.81 ; Post-traumatic stress disorder , chronic F43.12 and Memory change R41.3 [place] [address] [place] [address] 37902- 1271 Jul, Shortness of breath R06.02 ; Mixed hyperlipidemia E78.2 and Chronic fatigue R53.82 [place] [address], [place] [address]- 0979 07 Jul, 2016 Bipolar II disorder F31.81 ; Post-traumatic stress disorder , chronic F43.12 and Memory change R41.3 [facility] [address], [place] [address]- 1059 02 Jul, 2016 [facility] [id number] [place] [address] 04164- 5281 Jun, Bipolar II disorder F31.81 ; Post-traumatic stress disorder , chronic F43.12 and Memory change R41.3 [place] [id number] [place] [address] 85116- 1352 Jun, Post-traumatic stress disorder, chronic F43.12 ; Bipolar II disorder F31.81 and Memory change R41.3 [place] [address] [place] [address] 74579- 8258 Jun, Right anterior knee pain M25.561 ; Shortness of breath R06.02 and Bronchiolitis J21.9 [facility] [id number] [place] [address] 01906- 4959 Jun, [place] [id number] [place] [address] 82959- 9253 Jun, Bipolar II disorder F31.81 ; Post-traumatic stress disorder , chronic F43.12 and Memory change R41.3 [facility] [address] [place] [address] 35616- 4614 Jun, [facility] [address] [place] [address] 38136- 8356 Jun, Bipolar II disorder F31.81 ; Post-traumatic stress disorder , chronic F43.12 and Memory change R41.3 [facility] [address], [place] [address]- 0657 May, [facility] [id number] [place] [address] 56253- 7606 May, [facility] [address] [place] [address] 42418- 2278 May, [facility] [id number] [place] [address] 61089- 2018 May, Right anterior knee pain M25.561 ; Cough R05 ; Skin lesion of right arm L98.9 and Lesion of skin of face L98.9 [facility] [id number] [place] [address] 96755- 0526 May, [facility] [id number] [place] [address] 75128- 5950 May, Post-traumatic stress disorder, chronic F43.12 ; Memory change R41.3 and Bipolar I disorder, most recent episode manic F31.10 [place] [id number] [place] [address] 27571- 3199 May, [facility] [id number] [place] [address] 98426- 8380 May, Right anterior knee pain M25.561 [facility] [id number] [place] [address] 40630- 4557 May, [facility] [id number] [place] [address] 28246- 9986 Apr, Bipolar II disorder F31.81 ; Post-traumatic stress disorder , chronic F43.12 and Memory change R41.3 [facility] [address] [place] [address] 42156- 7470 Apr, Bipolar II disorder F31.81 ; Post-traumatic stress disorder , chronic F43.12 and Memory change R41.3 [facility] [id number] [place] [address] 31411- 9637 Apr, Post-traumatic stress disorder, chronic F43.12 ; Bipolar II disorder F31.81 and Memory change R41.3 [facility] [id number] [place] [address] 64322- 9238 Mar, Bipolar II disorder F31.81 ; Post-traumatic stress disorder , chronic F43.12 and Memory change R41.3 [place] [id number] [place] [address] 42583- 2897 Mar, Memory change R41.3 ; Confusion R41.0 and Dizziness R42 [place] [id number] [place] [address] 73040- 9098 Mar, Memory change R41.3 ; Encounter for immunization Z23 and Fatigue, unspecified type R53.83 [place] [id number] [place] [address] 90011- 7772 Mar, Bipolar II disorder F31.81 ; Post-traumatic stress disorder , chronic F43.12 and Memory change R41.3 [place] [id number] [place] [address] 39924- 9304 Jan, Bipolar II disorder F31.81 ; Post-traumatic stress disorder , chronic F43.12 and Memory change R41.3 [place] [id number] [place] [address] 08493- 0011 19 Feb, 2016 Post-traumatic stress disorder, chronic F43.12 ; Bipolar II disorder F31.81 ; Anxiety disorder, unspecified F41.9 and Memory change R41.3 [place] [id number] [place] [address] 23215- 1217 15 Feb, 2016 Bipolar II disorder F31.81 ; Post-traumatic stress disorder , chronic F43.12 and Memory change R41.3 [place] [id number] [place] [address] 62855- 7092 Dec, Bipolar II disorder F31.81 ; Post-traumatic stress disorder , chronic F43.12 and Memory change R41.3 [place] [id number] [place] [address] 65035- 6018 16 Jan, 2016 Memory loss R41.3 [place] [id number] [place] [address] 70546- 8950 Dec, Bipolar II disorder F31.81 ; Post-traumatic stress disorder , chronic F43.12 and Memory change R41.3 [facility] [address] [address]- 5912 Nov, Bipolar II disorder F31.81 and Post-traumatic stress disorder, chronic F43.12 [facility] [address] [address]- 8236 Nov, Bipolar II disorder F31.81 ; Post-traumatic stress disorder , chronic F43.12 and Memory change R41.3 [facility] [address] [address]- 8217 Oct, Post-traumatic stress disorder, chronic F43.12 and Bipolar disorder, unspecified F31.9 [facility] [address] [place] [address] 83675- 8299 Oct, Bipolar II disorder F31.81 ; Post-traumatic stress disorder , chronic F43.12 and Memory change R41.3 [facility] [address] [id number] Oct, Dental examination Z01.20 [facility] [address] [place] [address] 80799- 9014 September, Bipolar II disorder F31.81 ; Post-traumatic stress disorder , chronic F43.12 and Memory change R41.3 [facility] [address], [place] [address]- 8239 Aug, Bipolar II disorder F31.81 and Post-traumatic stress disorder, chronic F43.12 [facility] [address] [address]- 6225 Aug, Bipolar II disorder F31.81 and Post-traumatic stress disorder, chronic F43.12 [facility] [address], [place] [address] Jul, Bipolar II disorder F31.81 and Post-traumatic stress disorder, chronic F43.12 [facility] [id number] [place] [phone] 16 Jul, 2015 [facility] [id number] [place] [address] Jul, [facility] [id number] [place] [address] Jul, Post-traumatic stress disorder, chronic F43.12 and Bipolar disorder, unspecified F31.9 [facility] [id number] [place] [address] Jun, Bipolar II disorder F31.81 and Post-traumatic stress disorder, chronic F43.12 [facility] [id number] [place] [address] Jun, Post-traumatic stress disorder, chronic F43.12 and Bipolar disorder, unspecified F31.9 [facility] [id number] [place] [address]6878- [address] Jun, [facility] [id number] [place] [address]174- [address] Jun, Pharyngeal dysphagia R13.13 ; Hoarseness R49.0 and Cough R05 [facility] [id number] [place] [address] Jun, Post-traumatic stress disorder, chronic F43.12 and Bipolar disorder, unspecified F31.9 [facility] [id number] [place] [address]68- [address] May, Cough R05 [facility] [id number] [place] [address]- [address] May, Post-traumatic stress disorder, chronic F43.12 and Bipolar disorder, unspecified F31.9 [facility] [id number] [place] [address]- [address] May, Cough R05 [facility] [id number] [place] [address]- [address] May, [facility] [id number] [id number] May, Dental examination Z01.20 [facility] [id number] [place] [address]- [address] 15 May, 2015 Bipolar II disorder F31.81 and Post-traumatic stress disorder, chronic F43.12 [facility] [id number] [place] [address] 36070- 7057 14 May, 2015 [facility] [id number] [place] [address] 61421- 6115 May, Bipolar II disorder F31.81 and Anxiety disorder, unspecified F41.9 [place] [facility] [id number] [place] [address] 34939- 6799 May, Memory change R41.3 and History of renal insufficiency syndrome Z87.448 [place] [id number] [place] [address] 04825- 2960 May, Memory change R41.3 ; Dry mouth R68.2 and History of renal insufficiency syndrome Z87.448 [place] [id number] [place] [address] 60723- 5304 May, Bipolar II disorder F31.81 and Post-traumatic stress disorder, chronic F43.12 [place] [id number] [place] [address] 40647- 0893 Mar, Bipolar disorder, unspecified F31.9 and Generalized anxiety disorder F41.1 [place] [id number] [place] [address] 44035- 4147 Mar, Bipolar II disorder F31.81 [place] [id number] [place] [address] 75373- 6997 Mar, Encounter for immunization Z23 [facility] [id number] [place] [address] 93774- 2988 Mar, [facility] [address] [place] [address] 4102 Mar, Bipolar II disorder F31.81 [facility] [id number] [place] [address] 040082- 0981 Mar, [facility] [id number] [place] [address] [id number]- 8796 Jan, Bipolar disorder, unspecified 296.80 and Anxiety disorder 300.00 [facility] [id number] [place] [address] 60532- 5132 Jan, [facility] [id number] [place] [address] 07954- 1682 Jan, Bipolar disorder, unspecified 296.80 and Anxiety disorder 300.00 [facility] [id number] [place] [address] 27490- 0055 Dec, Bipolar disorder, unspecified 296.80 and Anxiety disorder 300.00 [facility] [id number] [place] [address] 44763- 0558 Dec, [facility] [id number] [place] [address] 27072- 6592 Dec, Bipolar disorder, unspecified 296.80 and Anxiety disorder 300.00 [facility] [address] [address] 1773 Nov, Bipolar disorder, unspecified 296.80 and Anxiety disorder 300.00 [facility] [address] [place] [address] 08421- 4563 Oct, Bipolar disorder, unspecified 296.80 and Anxiety disorder 300.00 [facility] [id number] [place] [address] 60600- 2356 Oct, Anxiety 300.00 and Bipolar disorder, unspecified 296.80 [facility] [address] [address] [address]116 September, Bipolar disorder, unspecified 296.80 and Anxiety disorder 300.00 [facility] [id number] [place] [address]- 3690 September, [facility] [address] [id number] [place] [address]- 9105 Aug, Cough 786.2 [facility] [place] [facility] [address] [id number] [place] [address] 2546 14 Aug, 2014 [facility] [address] [id number] [place] [address]- 7816 Aug, [facility] [place] [facility] [address] [id number] [place] [address]- 3974 Jul, [facility] [place] [facility] [address] [id number] [place] [address]- 3434 Jul, [facility] [place] [facility] [address] [id number] [place] [address]- 5616 Jul, [facility] [place] [facility] [address] [id number] [place] [address]- 5227 Jul, [facility] [place] [facility] [address] [id number] [place] [address]- 9888 Jul, [facility] [place] [facility] [address] [id number] [place] [address]- 3246 Jul, [facility] [place] [facility] [address] [id number] [place] [address]- 0925 Jun, [facility] [place] [facility] [address] [id number] [place] [address]- 3077 Jun, [facility] [place] [facility] [address] [id number] [place] [address]- 1061 Jun, [facility] [place] [facility] [address] [id number] [place] [address]- 9055 Jun, [facility] [place] [facility] [address] [id number] [place] [address]- 3046 May, [facility] [place] [facility] [address] [id number] [place] [address]- 0784 May, [facility] [place] [facility] [address] [id number] [place] 7232 May, [facility] [place] [facility] [address] [id number] [place] [address]- 3557 May, [facility] [place] [facility] [address] [facility] [id number] [place] [address]- 1205 Apr, [facility] [place] [facility] [address] [id number] [place] [address]- 6635 Apr, [facility] [place] [facility] [address] [id number] [place] [address]- 1480 Mar, [facility] [place] [facility] [address] [id number] [place] [address]- 6268 Mar, [facility] [place] [facility] [address] [id number] [place] [address]- 3127 Mar, [facility] [place] [facility] [address] [id number] [place] [address]- 6795 Mar, [facility] [place] [facility] [address] [id number] [place] [address]- 9908 Mar, [facility] [place] [facility] [address] [id number] [place] [address]- 9271 Mar, [facility] [place] [facility] [address] [id number] [address]- 3864 Jan, [facility] [place] [facility] [address] [id number], [place] [address]- 9987 Jan, [facility] [place] [facility] [address] [id number] [place] [address]- 5152 05 Jan, 2014 [facility] [place] [facility] [address] [id number] [address]- 7607 05 Jan, 2014 [facility] [place] [facility] [address] [facility] [id number], [place] [address]- 8568 Jan, [facility] [place] [facility] [address] [id number] [place] 6683 Jan, [facility] [place] [facility] [address] [id number] [place] [address]- 1750 Dec, [facility] [place] [facility] [address] [id number] [place] [address]- 7768 Dec, [facility] [place] [facility] [address] [id number] [place] 6889 Dec, [facility] [place] [facility] [address] [id number] [place] [address]- 7381 Dec, [facility] [place] [facility] [address] [id number] [place] [address]- 8188 Dec, [facility] [place] [facility] [address] [id number] [place] [address]- 4662 Dec, [facility] [place] [facility] [address] [id number] [place] [address]- 1848 Nov, [facility] [place] [facility] [address] [id number] [place] [address]- 2200 Nov, [facility] [place] [facility] [address] [id number] [place] [address]- 3854 Nov, [facility] [place] [facility] [address] [id number] [place] [address]- 2489 Nov, [facility] [place] [facility] [address] [id number] [place] [address]- 6643 Nov, [facility] [place] [facility] [address] [id number] [place] [address]- 0038 Nov, [facility] [place] [facility] [address] [id number] [place] [address]- 7041 Nov, [facility] [place] [facility] [address] [id number] [place] [address]- 6556 Nov, [facility] [place] [facility] [address] [id number] [place] [address]- 0244 Nov, [facility] [place] [facility] [address] [id number] [place] [address]- 3213 Nov, [facility] [place] [facility] [address] [id number] [place] [address]- 9719 September, [facility] [place] [facility] [address] [id number] [place] [address]- 0196 September, [facility] [place] [facility] [address] [id number] [place] [address]- 5047 September, [facility] [address] [id number] [place] [address]- 1904 September, [facility] [place] [facility] [address] [id number] [place] [address]- 6646 September, [facility] [place] [facility] [address] [id number] [place] [address]- 2049 September, [facility] [place] [facility] [address] [id number] [place] [address]- 8064 September, [facility] [place] [facility] [address] [id number] [place] [address]- 2205 September, [facility] [place] [facility] [address] [id number] [place] [address]- 7787 Aug, [facility] [place] [facility] [address] [id number] [place] [address]- 3867 Aug, [facility] [place] [facility] [address] [id number] [place] [address]- 5663 Aug, [facility] [place] [facility] [address] [id number] [place] [address]- 7402 Aug, [facility] [place] [facility] [address] [id number] [place] [address]- 6191 Jul, [facility] [place] [facility] [address] [id number] [place] [address]- 0242 Jul, [facility] [place] [facility] [address] [id number] [place] [address]- 0635 Jul, [facility] [place] [facility] [address] [id number] [place] [address]- 0669 Jul, [facility] [place] [facility] [address] [id number] [place] 5793 18 Jul, 2013 [facility] [place] [facility] [address] [id number] [place] [address]- 7456 Jul, [facility] [place] [facility] [address] [id number] [place] [address]- 8913 Jul, [facility] [place] [facility] [address] [id number] [place] [address]- 1713 Jul, [facility] [place] [facility] [address] [id number] [place] [address]- 8014 Jul, [facility] [place] [facility] [address] [id number] [place] [address]- 4593 Jul, [facility] [place] [facility] [address] [id number] [place] [address]- 9019 Jul, [facility] [place] [facility] [address] [id number] [place] [address]- 9347 Jun, [facility] [place] [facility] [address] [facility] [id number] [place] [address]- 8553 Jun, [facility] [place] [facility] [address] [id number] [place] [address]- 0761 Jun, [facility] [place] [facility] [address] [id number] [place] [address]- 9140 Jun, [facility] [place] [facility] [address] [id number] [place] [address]- 4856 May, [facility] [place] [facility] [address] [id number] [place] [address]- 2588 May, [facility] [place] [facility] [address] [id number] [place] [address]- 8785 Apr, [facility] [place] [facility] [address] [id number] [place] [address]- 3131 Apr, [facility] [place] [facility] [address] [id number] [place] [address]- 6127 Apr, [facility] [place] [facility] [address] [id number] [place] [address]- 8870 Apr, [facility] [place] [facility] [address] [id number] [place] [address]- 9320 Apr, [facility] [place] [facility] [address] [id number] [place] [address]- 5871 Apr, [facility] [place] [facility] [address] [id number] [place] [address]- 7760 Apr, [facility] [place] [facility] [address] [id number] [place] [address]- 2712 Apr, [facility] [place] [facility] [address] [id number] [place] [address]- 5912 Apr, [facility] [place] [facility] [address] [id number] [place] [address]- 3108 Apr, [facility] [place] [facility] [address] [id number] [place] [address]- 7175 Apr, [facility] [place] [facility] [address] [id number] [place] [address]- 3917 Apr, [facility] [place] [facility] [address] [id number], [place] [address]- 3071 Mar, [facility] [place] [facility] [address] [id number] [place] [address]- 5732 Mar, [facility] [place] [facility] [address] [id number] [place] [address]- 6100 Mar, [facility] [place] [facility] [address] [id number], [place] [address]- 2054 Dec, [facility] [place] [facility] [address] [id number], [place] [address]- 0834 Dec, [facility] [address] [facility] [id number][place] 2594 Dec, [facility] [address] [facility] [id number], [place] [address]- 1510 Oct, [facility] [address] [facility] [id number], [place] [address]- 3416 May, [facility] [address] [facility] [id number], [place] [address]- 0236 May, [facility] [address] [facility] [id number] 6399 May, [facility] [address] [facility] [id number], [place] [address]- 9424 Dec, IMMUNIZATIONS No Known Immunizations SOCIAL HISTORY Never Assessed REASON FOR VISIT Lesion removal f/u -- ankita temple PLAN OF CARE Activity Details Follow Up prn Reason: VITAL SIGNS Height 66 in 2017-04-08 Weight 229.0 lbs 2017-04-08 Temperature 97.0 degrees Fahrenheit 2017-04-08 BMI 36.96 kg/m2 2017-04-08 Blood pressure systolic 140 mmHg 2017-04-08 Blood pressure diastolic 78 mmHg 2017-04-08 MEDICATIONS Medication Instructions Dosage Frequency Start Date End Date Duration Status Calcium 600 MG Orally Once a day 1 tablet with meals 24h 30 days Active Vitamin D 2000 UNIT Orally Once a day 1 tablet 24h Active Loxapine Succinate 5 MG Orally at night 1 capsule Oct, 30 days Active Melatonin 5 MG 1 tablet at bedtime as needed with food Active Naproxen 500 MG Orally every 12 hrs 1 tablet with food or milk as needed 12h 31 Mar, 2017 Apr, 14 days Active Cymbalta 60 MG Orally Once a day 1 Capsule 24h Active Advair Diskus 100-50 MCG/DOSE Inhalation Twice a day 1 puff 12h Active Premarin 0.9 MG Orally Once a day 1 tablet 24h Active Linzess 145 MCG Orally Once a day 1 capsule 24h Active Aristada 882 MG/3.2ML Intramuscular once monthly 3.2 ml Apr, 30 day(s) Active Xanax 0.5 MG Orally Twice a day 1 tablet 12h Active Benztropine Mesylate 1 MG Orally twice a day 1 tablet 12h Active Nexium 40MG TAKE 1 CAPSULE DAILY Active Aspirin 81 MG Orally Once a day 1 tablet 24h Active Topamax 50 MG Orally Twice a day for 2 weeks then once a day for two weeks then stop med-part of taper schedule 1 tablet Apr, 30 days Active Abilify 30 MG Orally Once a day 1 tablet 24h Nov, Active Aristada 882 MG/3.2ML Intramuscular every month 3.2 ml Apr, 30 day(s) Active Multivitamin Gummies Adult Active Albuterol Sulfate 108 (90 Base) MCG/ACT Inhalation every 4-6 hrs 1 puff as needed May, Active Fish Oil 1000 MG Orally Once a day 2 capsule 24h Active RESULTS No Results PROCEDURES Procedure Date Ordered Result Body Site [facility] VISIT ESTABLISHED PATIENT Apr 08, 2017 INSTRUCTIONS MEDICATIONS ADMINISTERED No Known Medications [...] Gall Bladder Surgical History Tubalization Hospitalization History [facility] 12/2014 Hospitalization History Obstructive Airway Disease, Mood disorder, cough-[facility] 07/02/15 Hospitalization History Bronchitis- [facility] 06/2016
--- OUTSIDE RECORDS SUMMARY | 2018-02-03 09:01 | XMS REPORT ---
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 [employer] Name Role Phone SHANTAL TOWNSEND Unavailable PROBLEMS Type Condition ICD9-CM Code UOY24-KG Code Onset Dates Condition Status SNOMED Code Problem Mixed hyperlipidemia E78.2 Active 559777486 Problem Bipolar affective disorder, currently manic, mild F31.11 Active 849453069 Problem Chronic fatigue R53.82 Active 66631337 Problem COPD exacerbation J44.1 Active 075454673 Problem Other chronic pain G89.29 Active 11459018 Problem Chronic obstructive pulmonary disease, unspecified COPD type J44.9 Active 48579983 Problem Slow transit constipation K59.01 Active 59067607 Problem Bipolar disorder, in partial remission, most recent episode mixed F31.77 Active 05555685 Problem Bipolar disorder, current episode mixed, mild F31.61 Active 674180632 Problem Bipolar II disorder F31.81 Active 19706657 Problem History of renal insufficiency syndrome Z87.448 Active 480632998 Problem Pharyngeal dysphagia R13.13 Active [id number] Problem Post-traumatic stress disorder, chronic F43.12 Active 09869930 Problem Confusion R41.0 Active 619205665 Problem Memory change R41.3 Active 232079561 Problem Dizziness R42 Active [id number] ALLERGIES No Information ENCOUNTERS Encounter Location Date Diagnosis [facility] [place] [id number] [address] Jan, [facility] [place] [id number] [place] [address] 05560- 6964 Dec, [facility] [place] [address] [address] Dec, [facility] [place] [id number] [place] [address] 62184- 7576 Nov, [facility] [place] [address], [place] [address] Nov, [facility] [place] [id number] [place] [address] 38338- 6826 Nov, [facility] [place] [id number] [place] [address] 01003- 6147 Oct, Bipolar disorder, in partial remission, most recent episode mixed F31.77 [facility] [address], [place] [address] Oct, Scabies B86 [facility] [place] [id number] [place] [address] 83310- 6749 Oct, Bipolar disorder, in partial remission, most recent episode mixed F31.77 [facility] [place] [id number] [place] [address] 20552- 1489 Oct, [facility] [place] [id number] [place] [address] 86121- 2724 Oct, Bipolar II disorder F31.81 and Post-traumatic stress disorder, chronic F43.12 [facility] [id number] [place] [address] 83386 -7758 Oct, Scabies B86 [facility] [place] [address] [address] Oct, [facility] [place] [id number] [place] [address] 01892- 3661 September, Bipolar II disorder F31.81 and Post-traumatic stress disorder, chronic F43.12 [facility] [place] [id number] [place] [address] 81508- 6614 September, Bipolar disorder, in partial remission, most recent episode mixed F31.77 [facility] [place] [address], [place] [address] 7[address] September, COPD exacerbation J44.1 and Elevated blood pressure reading R03.0 [place] [place] [id number] [place] [address] 73381- 2771 September, [place] [address] 91013- 4951 September, Pain in left ankle and joints of left foot M25.572 ; Dermatitis L30.9 and Other chronic pain G89.29 [place] [address] 54768- 8487 Aug, Right elbow pain M25.521 and Elevated blood pressure reading R03.0 [address] [address] 08682- 5943 Aug, Bipolar disorder, current episode mixed, mild F31.61 and BMI 40.0-44.9, adult Z68.41 [address] [address] 79346- 8482 Aug, [place] [address] 17820- 7183 Aug, Bipolar II disorder F31.81 and Post-traumatic stress disorder, chronic F43.12 [place] [address] 20781- 1532 Jul, Elevated blood pressure reading R03.0 [place] [id number] [place] [address] 94713- 6324 Jul, Bipolar II disorder F31.81 and Post-traumatic stress disorder, chronic F43.12 [place] [id number] [place] [address] 35009- 8599 Jul, Bipolar disorder, current episode mixed, mild F31.61 [facility] [id number] [place] [address] 97306 -9881 Jul, Right foot pain M79.671 ; Allergic contact dermatitis, unspecified trigger L23.9 ; Contusion of right foot, initial encounter S90.31XA and BMI 40.0-44.9, adult Z68.41 [facility] [address], [place] [address] 02 Jul, 2017 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 [facility] [place] [id number] [place] [address] 07209- 2997 22 Jul, 2017 [facility] [place] [id number] [place] [address] 55261- 5939 15 Jul, 2017 Bipolar disorder, current episode mixed, mild F31.61 [place] [address] [place] [address] 10998- 0265 15 Jul, 2017 Bipolar II disorder F31.81 ; Post-traumatic stress disorder , chronic F43.12 and Memory change R41.3 [facility] [place] [id number] [place] [address] 43322- 0301 14 Jul, 2017 Elevated blood pressure reading R03.0 ; Chronic obstructive pulmonary disease, unspecified COPD type J44.9 ; Long-term use of high-risk medication Z79.899 and Cognitive decline R41.89 [facility] [place] [id number] [place] [address] 54929- 5516 06 Jul, 2017 Elevated blood pressure reading R03.0 [facility] [place] [id number] [place] [address] 73402- 2669 05 Jul, 2017 [facility] [place] [id number] [place] [address] 15131- 1976 01 Jul, 2017 Bipolar II disorder F31.81 ; Post-traumatic stress disorder , chronic F43.12 and Memory change R41.3 [address] [address], [place] [address]- 9124 Jun, [place] [id number] [place] [address] 95521- 7528 Jun, Bipolar II disorder F31.81 ; Post-traumatic stress disorder , chronic F43.12 and Memory change R41.3 [place] [id number] [place] [address] 01031- 3973 Jun, Localized swelling, mass or lump of neck R22.1 ; Slow transit constipation K59.01 and Elevated blood pressure reading R03.0 [place] [id number] [place] [address] 23761- 0256 Jun, [place] [id number] [place] [address] 27387- 6635 Jun, Bipolar affective disorder, currently manic, mild F31.11 [facility] [id number] [place] [address] 11394 -1033 May, [facility] [place] [id number] [place] [address] 97587 -2527 14 May, 2017 [place] [id number] [place] [address] 98515- 3844 13 May, 2017 Bipolar II disorder F31.81 ; Post-traumatic stress disorder , chronic F43.12 and Memory change R41.3 [place] [id number] [place] [address] 78840- 7018 May, [place] [id number] [place] [address] 03307- 9497 May, [place] [id number] [place] [address] 75830- 7929 May, Bipolar affective disorder, currently manic, mild F31.11 [place] [id number] [place] [address] 31217- 3642 May, [facility] [id number] [place] [address] 03379 -2687 May, Localized swelling, mass or lump of neck R22.1 and Localized swelling, mass and lump, head R22.0 [address] [place] [id number] [place] [address] 75526- 7505 Apr, [place] [id number] [place] [address] 14044- 4997 Apr, Bipolar affective disorder, currently manic, mild F31.11 [facility] [place] [id number] [place] [address] 98289- 0117 Apr, Bipolar II disorder F31.81 [facility] [place] [id number] [place] [address] 91379- 5670 Apr, [facility] [place] [id number] [place] [address] 428664- 7748 Apr, Bipolar affective disorder, currently manic, mild F31.11 [facility] [place] [id number] [place] [address] 75305- 8992 Apr, Actinic keratosis L57.0 [facility] [place] [id number] [place] [address] 93061- 1235 Apr, Bipolar affective disorder, currently manic, mild F31.11 [facility] [place] [id number] [place] [address] 13153- 8094 Apr, [facility] [id number] [place] [address] 31217 -4284 Mar, Allergic contact dermatitis, unspecified trigger L23.9 and Right leg pain M79.604 [facility] [place] [id number] [place] [address] 04188- 7524 Mar, [facility] [place] [id number] [place] [address] 89052- 1164 Mar, Bipolar II disorder F31.81 ; Post-traumatic stress disorder , chronic F43.12 and Memory change R41.3 [facility] [place] [id number] [place] [address] 62134- 4409 Mar, Actinic keratosis L57.0 [facility] [place] [id number] [place] [address] 22158- 7519 Jan, Bipolar II disorder F31.81 ; Post-traumatic stress disorder , chronic F43.12 and Memory change R41.3 [address], [place] [address]- 8936 28 Jan, 2017 Bipolar affective disorder, currently manic, mild F31.11 [facility] [place] [id number] [place] [address] 93167- 5286 13 Jan, 2017 Bipolar affective disorder, currently manic, mild F31.11 [facility] [place] [id number] [place] [address] 56915- 4058 07 Jan, 2017 Bipolar II disorder F31.81 ; Post-traumatic stress disorder , chronic F43.12 and Memory change R41.3 [facility] [place] [id number] [place] [address] 74112- 1732 Dec, Bipolar II disorder F31.81 ; Post-traumatic stress disorder , chronic F43.12 and Memory change R41.3 [facility] [place] [id number] [place] [address] 59461- 8395 Dec, Bipolar affective disorder, currently manic, mild F31.11 [facility] [place] [id number] [place] [address] 84534- 0931 Dec, Bipolar affective disorder, currently manic, mild F31.11 [facility] [place] [id number] [place] [address] 51290- 4694 Dec, Post-traumatic stress disorder, chronic F43.12 [facility] [place] [id number] [place] [address] 42188- 2370 Dec, Bipolar II disorder F31.81 ; Post-traumatic stress disorder , chronic F43.12 and Memory change R41.3 [facility] [place] [id number] [place] [address] 92337- 6783 Dec, Post-traumatic stress disorder, chronic F43.12 [facility] [place] [address], [place] [address]- 9248 Nov, [facility] [place] [id number] [place] [address] 45739- 8490 Nov, Bipolar II disorder F31.81 ; Post-traumatic stress disorder , chronic F43.12 and Memory change R41.3 [facility] [place] [address], [place] [address]- 1680 Nov, [facility] [place] [id number] [place] [address] 28769- 4251 Nov, Post-traumatic stress disorder, chronic F43.12 and Bipolar II disorder F31.81 [facility] [place] [id number] [place] [address] 18478- 1226 Nov, Actinic keratosis L57.0 [facility] [place] [id number] [place] [address] 68324- 1161 Oct, Bipolar II disorder F31.81 ; Post-traumatic stress disorder , chronic F43.12 and Memory change R41.3 [place] [id number] [place] [address] 26638- 9599 Oct, Post-traumatic stress disorder, chronic F43.12 ; Bipolar II disorder F31.81 and Memory change R41.3 [place] [id number] [place] [address] 25145- 7725 Oct, Bipolar II disorder F31.81 ; Post-traumatic stress disorder , chronic F43.12 and Memory change R41.3 [facility] [place] [address], [place] [address]- 6369 Oct, Actinic keratosis L57.0 [facility] [place] [id number] [place] [address] 02005- 6465 September, Bipolar II disorder F31.81 ; Post-traumatic stress disorder , chronic F43.12 and Memory change R41.3 [place] [id number] [place] [address] 59654- 0968 September, Bipolar II disorder F31.81 ; Post-traumatic stress disorder , chronic F43.12 and Memory change R41.3 [place] [id number] [place] [address] 80458- 7445 September, Post-traumatic stress disorder, chronic F43.12 ; Bipolar II disorder F31.81 and Memory change R41.3 [place] [address] [place], [place] [address]- 537 Jul, Bipolar II disorder F31.81 ; Post-traumatic stress disorder , chronic F43.12 and Memory change R41.3 [place] [id number] [place] [address]- 1601 Jul, Bipolar II disorder F31.81 ; Post-traumatic stress disorder , chronic F43.12 and Memory change R41.3 [place] [id number] [place] [address]- 4630 Jul, Bipolar II disorder F31.81 ; Post-traumatic stress disorder , chronic F43.12 and Memory change R41.3 [place] [id number] [place] [address] 67987- 6273 Jul, Post-traumatic stress disorder, chronic F43.12 ; Bipolar II disorder F31.81 and Memory change R41.3 [place] [id number] [place] [address] 58697- 4179 Jul, Tear of medial meniscus of right knee, unspecified tear type , unspecified whether old or current tear, initial encounter S83.241A [place] [address] [place] [address] 94479- 6474 Jul, Bipolar II disorder F31.81 ; Post-traumatic stress disorder , chronic F43.12 and Memory change R41.3 [place] [address] [place] [address] 01613- 0754 Jul, Shortness of breath R06.02 ; Mixed hyperlipidemia E78.2 and Chronic fatigue R53.82 [place] [address] [place] [address] 27133- 8199 07 Jul, 2016 Bipolar II disorder F31.81 ; Post-traumatic stress disorder , chronic F43.12 and Memory change R41.3 [facility] [place] [address] [place] [address]- 6782 Jul, [facility] [place] [id number] [place] [address] 79226163- 2746 Jun, Bipolar II disorder F31.81 ; Post-traumatic stress disorder , chronic F43.12 and Memory change R41.3 [facility] [place] [id number] [place] [address] 84293- 5212 Jun, Post-traumatic stress disorder, chronic F43.12 ; Bipolar II disorder F31.81 and Memory change R41.3 [facility] [place] [id number] [place] [address] 03051- 0795 Jun, Right anterior knee pain M25.561 ; Shortness of breath R06.02 and Bronchiolitis J21.9 [facility] [place] [id number] [place] [address] 72185- 8929 Jun, [facility] [place] [id number] [place] [address] 55771- 7676 Jun, Bipolar II disorder F31.81 ; Post-traumatic stress disorder , chronic F43.12 and Memory change R41.3 [facility] [place] [address], [place] [address]- 2392 Jun, [facility] [place] [address], [place] [address]- 8014 Jun, Bipolar II disorder F31.81 ; Post-traumatic stress disorder , chronic F43.12 and Memory change R41.3 [facility] [place] [address], [place] [address]- 9766 May, [facility] [place] [id number] [place] [address] [id number]- 2636 May, [facility] [place] [address], [place] [address]- 3642 May, [facility] [place] [id number] [place] [address] 42589- 9546 May, Right anterior knee pain M25.561 ; Cough R05 ; Skin lesion of right arm L98.9 and Lesion of skin of face L98.9 [facility] [place] [id number] [place] [address] 48851- 4294 May, [facility] [place] [id number] [place] [address] 35259- 8956 May, Post-traumatic stress disorder, chronic F43.12 ; Memory change R41.3 and Bipolar I disorder, most recent episode manic F31.10 [facility] [place] [id number] [place] [address] 98139- 3233 May, [facility] [place] [id number] [place] [address] 86141- 1791 May, Right anterior knee pain M25.561 [facility] [place] [id number] [place] [address] 77667- 9746 May, [facility] [place] [id number] [place] [address] 96608- 6943 Apr, Bipolar II disorder F31.81 ; Post-traumatic stress disorder , chronic F43.12 and Memory change R41.3 [facility] [place] [id number] [place] [address] 80914- 9576 Apr, Bipolar II disorder F31.81 ; Post-traumatic stress disorder , chronic F43.12 and Memory change R41.3 [facility] [place] [id number] [place] [address] 32584- 4524 Apr, Post-traumatic stress disorder, chronic F43.12 ; Bipolar II disorder F31.81 and Memory change R41.3 [place] [id number] [place] [address] 44184- 3810 Mar, Bipolar II disorder F31.81 ; Post-traumatic stress disorder , chronic F43.12 and Memory change R41.3 [place] [id number] [place] [address] 86035- 7765 Mar, Memory change R41.3 ; Confusion R41.0 and Dizziness R42 [place] [id number] [place] [address] 25689- 9889 Mar, Memory change R41.3 ; Encounter for immunization Z23 and Fatigue, unspecified type R53.83 [place] [id number] [place] [address] 29484- 8127 Mar, Bipolar II disorder F31.81 ; Post-traumatic stress disorder , chronic F43.12 and Memory change R41.3 [place] [id number] [place] [address] 94606- 2165 Jan, Bipolar II disorder F31.81 ; Post-traumatic stress disorder , chronic F43.12 and Memory change R41.3 [place] [id number] [place] [address] 05536- 9976 Jan, Post-traumatic stress disorder, chronic F43.12 ; Bipolar II disorder F31.81 ; Anxiety disorder, unspecified F41.9 and Memory change R41.3 [place] [id number] [place] [address] [id number] 15 Feb, 2016 Bipolar II disorder F31.81 ; Post-traumatic stress disorder , chronic F43.12 and Memory change R41.3 [place] [id number] [place] [address] [id number] Dec, Bipolar II disorder F31.81 ; Post-traumatic stress disorder , chronic F43.12 and Memory change R41.3 [place] [id number] [place] [address] [phone] Dec, Memory loss R41.3 [place] [id number] [place] [address] [id number] Dec, Bipolar II disorder F31.81 ; Post-traumatic stress disorder , chronic F43.12 and Memory change R41.3 [place] [id number] [place] [address] [id number]- [phone] Nov, Bipolar II disorder F31.81 and Post-traumatic stress disorder, chronic F43.12 [facility] [place] [id number] [place] [address] [phone] Nov, Bipolar II disorder F31.81 ; Post-traumatic stress disorder , chronic F43.12 and Memory change R41.3 [facility] [place] [id number] [place] [address] [phone] Oct, Post-traumatic stress disorder, chronic F43.12 and Bipolar disorder, unspecified F31.9 [facility] [place] [id number] [place] [address] [phone] Oct, Bipolar II disorder F31.81 ; Post-traumatic stress disorder , chronic F43.12 and Memory change R41.3 [facility] [id number] [place] [address] [id number] Oct, Dental examination Z01.20 [facility] [place] [id number] [place] [address] 58478- 8080 September, Bipolar II disorder F31.81 ; Post-traumatic stress disorder , chronic F43.12 and Memory change R41.3 [facility] [place] [id number] [place] [address] 85721- 2014 Aug, Bipolar II disorder F31.81 and Post-traumatic stress disorder, chronic F43.12 [facility] [place] [id number] [place] [address] 74117- 7599 Aug, Bipolar II disorder F31.81 and Post-traumatic stress disorder, chronic F43.12 [facility] [place] [id number] [place] [address] 22924- 3384 Jul, Bipolar II disorder F31.81 and Post-traumatic stress disorder, chronic F43.12 [facility] [place] [id number] [place] [address] 68696- 7188 Jul, [facility] [place] [id number] [place] [address] 76269- 2130 15 Jul, 2015 [facility] [place] [id number] [place] [address] 50032- 5770 Jul, Post-traumatic stress disorder, chronic F43.12 and Bipolar disorder, unspecified F31.9 [facility] [place] [id number] [place] [address] 91491- 2178 Jun, Bipolar II disorder F31.81 and Post-traumatic stress disorder, chronic F43.12 [facility] [place] [id number] [place] [address] 00059- 9212 Jun, Post-traumatic stress disorder, chronic F43.12 and Bipolar disorder, unspecified F31.9 [id number] [place] [address] 350120- 1768 Jun, [place] [id number] [place] [address] 337892- 5754 Jun, Pharyngeal dysphagia R13.13 ; Hoarseness R49.0 and Cough R05 [facility] [place] [id number] [place] [address] 68563- 8222 Jun, Post-traumatic stress disorder, chronic F43.12 and Bipolar disorder, unspecified F31.9 [facility] [place] [address] [place] [address] 49671- 5522 May, Cough R05 [facility] [place] [id number] [place] [address] 29851- 0509 May, Post-traumatic stress disorder, chronic F43.12 and Bipolar disorder, unspecified F31.9 [facility] [place] [id number] [place] [address] 02277- 7869 May, Cough R05 [facility] [place] [id number] [place] [address] 68972- 5952 May, [facility] [address] [place] [address] [id number] May, Dental examination Z01.20 [place] [id number] [place] [address] 96429- 0979 15 May, 2015 Bipolar II disorder F31.81 and Post-traumatic stress disorder, chronic F43.12 [facility] [place] [id number] [place] [address] 34163- 5121 May, [place] [id number] [place] [address] 06466- 4359 May, Bipolar II disorder F31.81 and Anxiety disorder, unspecified F41.9 [place] [id number] [place] [address] 40302- 9385 May, Memory change R41.3 and History of renal insufficiency syndrome Z87.448 [place] [id number] [place] [address] 71266- 0899 May, Memory change R41.3 ; Dry mouth R68.2 and History of renal insufficiency syndrome Z87.448 [place] [id number] [place] [address] 94834- 5868 May, Bipolar II disorder F31.81 and Post-traumatic stress disorder, chronic F43.12 [place] [id number] [place] [address] 97462- 0077 Mar, Bipolar disorder, unspecified F31.9 and Generalized anxiety disorder F41.1 [place] [id number] [place] [address] 57785- 6940 Mar, Bipolar II disorder F31.81 [place] [id number] [place] [address] 75241- 7104 Mar, Encounter for immunization Z23 [address] [address] [address]- 1966 Mar, [place] [id number] [place] [address] 44472- 8759 Mar, Bipolar II disorder F31.81 [place] [address] 00983- 2556 Mar, [facility] [place] [address] [address]- 9658 Jan, Bipolar disorder, unspecified 296.80 and Anxiety disorder 300.00 [facility] [place] [id number] [place] [address] 79528- 6226 Jan, [facility] [place] [id number] [place] [address] 40017- 3136 Jan, Bipolar disorder, unspecified 296.80 and Anxiety disorder 300.00 [facility] [place] [id number] [place] [address] 78595- 4006 Dec, Bipolar disorder, unspecified 296.80 and Anxiety disorder 300.00 [facility] [place] [id number] [place] [address] 18192- 5024 Dec, [facility] [place] [id number] [place] [address] 822320- 5513 Dec, Bipolar disorder, unspecified 296.80 and Anxiety disorder 300.00 [facility] [place] [id number] [place] [address] 196310- 9574 Nov, Bipolar disorder, unspecified 296.80 and Anxiety disorder 300.00 [facility] [place] [id number] [place] [address] 59380- 8935 Oct, Bipolar disorder, unspecified 296.80 and Anxiety disorder 300.00 [facility] [place] [id number] [place] [address] 653118- 7546 Oct, Anxiety 300.00 and Bipolar disorder, unspecified 296.80 [facility] [place] [id number] [place] [address] 06826- 4646 September, Bipolar disorder, unspecified 296.80 and Anxiety disorder 300.00 [facility] [place] [address] [place] [address] 98883- 6136 September, [facility] [place] [id number] [place] [address] 078846- 2057 Aug, Cough 786.2 [facility] [place] [facility] [address] [id number] [place] [address]- 9577 Aug, [facility] [place] [facility] [address] [id number] [place] [address]- 9299 Aug, [facility] [place] [facility] [address] [id number] [place] [address]- 3306 Jul, [facility] [place] [facility] [address] [id number] [place] 3592 Jul, [facility] [place] [facility] [address] [id number] [place] [address]- 3195 Jul, [facility] [place] [facility] [address] [id number] [place] [address]- 2842 Jul, [facility] [place] [facility] [address] [id number] [place] [address]- 8981 Jul, [facility] [place] [facility] [address] [id number] [place] [address]- 1476 Jul, [facility] [place] [facility] [address] [id number] [place] [address]- 8046 Jun, [facility] [place] [facility] [address] [id number] [place] [address]- 0401 Jun, [facility] [place] [facility] [address] [id number] [place] [address]- 7504 Jun, [facility] [place] [facility] [address] [id number] [place] [address]- 6116 Jun, [facility] [place] [facility] [address] [id number] [place] [address]- 6388 May, [facility] [place] [facility] [address] [id number] [place] [address]- 4543 May, [facility] [place] [facility] [address] [facility] [id number] [place] [address]- 4039 May, [facility] [place] [facility] [address] [id number] [place] [address]- 5883 May, [facility] [place] [facility] [address] [id number] [place] [address]- 1914 Apr, [facility] [place] [facility] [address] [id number] [place] 9845 Apr, [facility] [place] [facility] [address] [id number] [place] [address]- 4737 Mar, [facility] [place] [facility] [address] [id number] [place] [address]- 3871 Mar, [facility] [place] [facility] [address] [id number] [place] [address]- 1396 Mar, [facility] [place] [facility] [address] [id number] [place] [address]- 7401 Mar, [facility] [place] [facility] [address] [id number] [place] [address]- 6914 Mar, [facility] [place] [facility] [address] [id number] [place] [address]- 3723 Mar, [facility] [place] [facility] [address] [id number] [place] [address]- 6972 Jan, [facility] [place] [facility] [address] [id number] [place] [address]- 3844 Jan, [facility] [place] [facility] [address] [id number] [place] [address]- 3932 05 Jan, 2013 [facility] [place] [facility] [address] [id number] [place] [address]- 0141 05 Jan, 2013 [facility] [place] [facility] [address] [id number] [place] [address]- 2259 Jan, [facility] [place] [facility] [address] [id number] [place] [address]- 8117 Jan, 2013 [facility] [place] [facility] [address] [id number] [place] [address]- 5255 Dec, [facility] [place] [facility] [address] [id number] [place] [address]- 9349 Dec, [facility] [place] [facility] [address] [id number] [place] [address]- 5199 Dec, [facility] [place] [facility] [address] [id number] [place] [address]- 2526 Dec, [facility] [place] [facility] [address] [id number] [place] [address]- 0148 Dec, [facility] [place] [facility] [address] [id number] [place] [address]- 1082 Dec, [facility] [place] [facility] [address] [id number] [place] [address]- 8161 Nov, [facility] [place] [facility] [address] [id number] [place] [address]- 5483 Nov, [facility] [place] [facility] [address] [id number] [place] [address]- 0046 Nov, [facility] [place] [facility] [address] [id number] [place] [address]- 2646 Nov, [facility] [place] [facility] [address] [id number] [place] [address]- 2387 Nov, [facility] [place] [facility] [address] [id number] [place] [address]- 2725 Nov, [facility] [place] [facility] [address] [id number] [place] [address]- 2109 Nov, [facility] [place] [facility] [address] [id number] [place] [address]- 7408 Nov, [facility] [place] [facility] [address] [id number] [place] [address]- 4169 Nov, [facility] [place] [facility] [address] [id number] [place] 1549 Nov, [facility] [place] [facility] [address] [id number] [place] [address]- 2898 September, [facility] [address] [id number] [place] [address]- 1338 September, [facility] [place] [facility] [address] [id number] [place] [address]- 7308 September, [facility] [place] [facility] [address] [id number] [place] [address]- 6079 September, [facility] [place] [facility] [address] [id number] [place] [address]- 3298 September, [facility] [place] [facility] [address] [id number] [place] [address]- 0501 September, [facility] [place] [facility] [address] [id number] [place] [address]- 2527 September, [facility] [address] [id number] [place] [address]- 2800 September, [facility] [place] [facility] [address] [id number] [place] [address]- 6529 Aug, [facility] [place] [facility] [address] [id number] [place] [address]- 1379 Aug, [facility] [place] [facility] [address] [id number] [place] [address]- 4995 Aug, [facility] [place] [facility] [address] [id number] [place] [address]- 6097 Aug, [facility] [place] [facility] [address] [id number] [address]- 1726 Jul, [facility] [place] [facility] [address] [id number] [place] [address]- 3871 Jul, [facility] [place] [facility] [address] [id number] [place] [address]- 7063 Jul, [facility] [place] [facility] [address] [id number] [place] [address]- 1574 Jul, [facility] [place] [facility] [address] [id number] [place] [address]- 0723 Jul, [facility] [place] [facility] [address] [id number] [place] [address]- 3456 Jul, [facility] [place] [facility] [address] [id number] [place] 3206 Jul, [facility] [place] [facility] [address] [id number] [place] [address] 2546 Jul, [facility] [place] [facility] [address] [id number] [place] [address]- 2427 Jul, [facility] [place] [facility] [address] [id number] [place] [address]- 2286 Jul, [facility] [place] [facility] [address] [id number] [place] [address]- 4089 Jul, [facility] [place] [facility] [address] [id number] [place] [address]- 6827 Jun, [facility] [place] [facility] [address] [id number] [place] [address]- 7378 Jun, [facility] [place] [facility] [address] [id number] [place] [address]- 0383 Jun, [facility] [place] [facility] [address] [id number] [place] [address]- 9893 Jun, [facility] [place] [facility] [address] [id number] [place] [address]- 6278 May, [facility] [place] [facility] [address] [id number] [place] [address] 2546 May, [facility] [place] [facility] [address] [id number] [place] [address] 2546 Apr, [facility] [place] [facility] [address] [id number] [place] [address]- 2541 Apr, [facility] [place] [facility] [address] [id number] [place] [address]- 8501 Apr, [facility] [place] [facility] [address] [id number] [place] [address]- 6696 Apr, [facility] [place] [facility] [address] [id number] [place] [address]- 8849 Apr, [facility] [place] [facility] [address] [id number] [place] [address]- 9697 Apr, [facility] [place] [facility] [address] [id number] [place] [address]- 0092 Apr, [facility] [place] [facility] [address] [id number] [place] [address]- 1543 Apr, [facility] [place] [facility] [address] [id number] [place] [address]- 3762 Apr, [facility] [place] [facility] [address] [id number] [place] [address]- 4357 Apr, [facility] [place] [facility] [address] [id number] [place] [address]- 6414 Apr, [facility] [place] [facility] [address] [id number] [place] [address]- 6629 Apr, [facility] [place] [facility] [address] [id number] [place] [address]- 1015 Mar, [facility] [place] [facility] [address] [id number] [place] [address]- 1580 Mar, [facility] [place] [facility] [address] [id number], [place] [address]- 2377 Mar, [facility] [place] [facility] [address] [id number], [place] [address]- 7406 Dec, [facility] [place] [facility] [address] [id number] [place] [address]- 1760 Dec, [facility] [place] [facility] [address] [id number], [place] [address]- 0446 Dec, [facility] [place] [facility] [address] [facility] [id number] [place] [address]- 2354 Oct, [facility] [place] [address] [facility] [id number], [place] [address]- 4292 May, [facility] [place] [address] [facility] [id number], [place] [address]- 8204 May, [facility] [place] [address] [facility] [id number], [place] [address]- 0056 May, [facility] [place] [address] [facility] [id number], [place] [address]- 9506 Dec, IMMUNIZATIONS No Known Immunizations SOCIAL HISTORY Never Assessed REASON FOR VISIT f/u PLAN OF CARE Activity Details Follow Up 2 Weeks Reason: VITAL SIGNS MEDICATIONS Unknown Medications RESULTS No Results PROCEDURES Procedure Date Ordered Result Body Site visit needs to be added to the same day medical Jul 17, 2017 [facility] VISIT MENTAL HEALTH ESTAB PT Jul 17, 2017 Psychotherapy, patient &/family, 45 minutes, established patient Jul 17, 2017 INSTRUCTIONS MEDICATIONS ADMINISTERED No Known Medications [...] Gall Bladder Surgical History Tubalization Hospitalization History [facility] 12/2014 Hospitalization History Obstructive Airway Disease, Mood disorder, cough-[facility] 07/02/15 Hospitalization History Bronchitis- [facility] 06/2016
--- OUTSIDE RECORDS SUMMARY | 2018-02-03 09:03 | XMS REPORT ---
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 Role Phone AHSAN JEAN BAPTISTE Unavailable PROBLEMS Type Condition ICD9-CM Code VOZ12-EE Code Onset Dates Condition Status SNOMED Code Problem Mixed hyperlipidemia E78.2 Active 090943814 Problem Bipolar affective disorder, currently manic, mild F31.11 Active 026159290 Problem Chronic fatigue R53.82 Active 73092528 Problem COPD exacerbation J44.1 Active 791763962 Problem Other chronic pain G89.29 Active 12148085 Problem Chronic obstructive pulmonary disease, unspecified COPD type J44.9 Active 41541057 Problem Slow transit constipation K59.01 Active 00805794 Problem Bipolar disorder, in partial remission, most recent episode mixed F31.77 Active 37875309 Problem Bipolar disorder, current episode mixed, mild F31.61 Active 092204348 Problem Bipolar II disorder F31.81 Active 38291872 Problem History of renal insufficiency syndrome Z87.448 Active 830756752 Problem Pharyngeal dysphagia R13.13 Active 58605243650506 Problem Post-traumatic stress disorder, chronic F43.12 Active 50657915 Problem Confusion R41.0 Active 181789626 Problem Memory change R41.3 Active 970132629 Problem Dizziness R42 Active 325788294 ALLERGIES No Information ENCOUNTERS Encounter Location Date Diagnosis [facility] [id number] [address] Nov, [facility] [id number] [place] [address] 55416- 5846 Oct, [facility] [address] [place] [address] 12381- 0801 Oct, [facility] [id number] [place] [address] 51906- 8647 Oct, [facility] [address] [address] Oct, [facility] [id number] [place] [address] 22738 -2945 Oct, [facility] [address] [place] [address] 67621- 9187 Oct, [facility] [id number] [place] [address] 18090- 6810 September, Bipolar II disorder F31.81 and Post-traumatic stress disorder, chronic F43.12 [facility] [facility] [id number] [place] [address] 02581- 7430 September, Bipolar disorder, in partial remission, most recent episode mixed F31.77 [facility] [id number] [place] [address] 25599- 7419 September, COPD exacerbation J44.1 and Elevated blood pressure reading R03.0 [facility] [id number] [place] [address] 19078- 5322 September, [facility] [id number] [place] [address] 70477- 0163 September, Pain in left ankle and joints of left foot M25.572 ; Dermatitis L30.9 and Other chronic pain G89.29 [facility] [id number] [place] [address] 93557- 2219 Aug, Right elbow pain M25.521 and Elevated blood pressure reading R03.0 [facility] [id number] [place] [address] 98100- 4669 Aug, Bipolar disorder, current episode mixed, mild F31.61 and BMI 40.0-44.9, adult Z68.41 [facility] [address] [place] [address] 42441- 8647 Aug, [facility] [id number] [place] [address] 99666- 9680 05 Aug, 2017 Bipolar II disorder F31.81 and Post-traumatic stress disorder, chronic F43.12 [facility] [id number] [place] [address] 28702- 0517 Jul, Elevated blood pressure reading R03.[address] 34390- 6670 Jul, Bipolar II disorder F31.81 and Post-traumatic stress disorder, chronic F43.12 [place] [address] 54444- 6059 Jul, Bipolar disorder, current episode mixed, mild F31.61 [facility] [address] [id number] [place] [address] 96436 -2499 Jul, Right foot pain M79.671 ; Allergic contact dermatitis, unspecified trigger L23.9 ; Contusion of right foot, initial encounter S90.31XA and BMI 40.0-44.9, adult Z68.41 [facility] [address] 51017 -0160 Jul, 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 [id number] [place] [address] 77782- 2602 Jul, [address] 68353- 8228 15 Jul, 2017 Bipolar disorder, current episode mixed, mild F31.61 [facility] [facility] [id number] [place] [address] 46821- 6585 15 Jul, 2017 Bipolar II disorder F31.81 ; Post-traumatic stress disorder , chronic F43.12 and Memory change R41.3 [id number] [place] [address] 43219- 0791 14 Jul, 2017 Elevated blood pressure reading R03.0 ; Chronic obstructive pulmonary disease, unspecified COPD type J44.9 ; Long-term use of high-risk medication Z79.899 and Cognitive decline R41.89 [place] [address] [place] [address] 20208- 2609 06 Jul, 2017 Elevated blood pressure reading R03.0 [facility] [facility] [id number] [place] [address] 90445- 7419 05 Jul, 2017 [facility] [id number] [place] [address] 47773- 0579 Jul, Bipolar II disorder F31.81 ; Post-traumatic stress disorder , chronic F43.12 and Memory change R41.3 [facility] [id number] [place] [address] 42872- 8336 Jun, [facility] [id number] [place] [address] 61844- 9726 Jun, Bipolar II disorder F31.81 ; Post-traumatic stress disorder , chronic F43.12 and Memory change R41.3 [facility] [id number] [place] [address] 44967- 2418 Jun, Localized swelling, mass or lump of neck R22.1 ; Slow transit constipation K59.01 and Elevated blood pressure reading R03.0 [place] [address] [place] [address] 12006- 2310 Jun, [place] [address] [place] [address] 41343- 4629 Jun, Bipolar affective disorder, currently manic, mild F31.11 [facility] [address] [place] [address] 72319 -7547 May, [facility] [id number] [place] [address] 11247 -8704 14 May, 2017 [facility] [address] [place] [address] 57240- 8336 13 May, 2017 Bipolar II disorder F31.81 ; Post-traumatic stress disorder , chronic F43.12 and Memory change R41.3 [facility] [address] [place] [address] 57098- 5561 May, [facility] [id number] [place] [address] 08274- 9923 May, [facility] [id number] [place] [address] 42594- 4031 May, Bipolar affective disorder, currently manic, mild F31.11 [facility] [id number] [place] [address] 10508- 1214 May, [facility] [id number] [place] [address] 47243 -8099 May, Localized swelling, mass or lump of neck R22.1 and Localized swelling, mass and lump, head R22.0 [facility] [id number] [place] [address] 06193- 3991 Apr, [facility] [id number] [place] [address] 51836- 4482 Apr, Bipolar affective disorder, currently manic, mild F31.11 [facility] [id number] [place] [address] 54367- 8851 Apr, Bipolar II disorder F31.81 [facility] [id number] [place] [address] 30625- 2543 Apr, [facility] [id number] [place] [address] 30728- 1454 Apr, Bipolar affective disorder, currently manic, mild F31.11 [facility] [id number] [place] [address] 55319- 0964 Apr, Actinic keratosis L57.0 [facility] [address] [place] [address] 53932- 0736 Apr, Bipolar affective disorder, currently manic, mild F31.11 [facility] [id number] [place] [address] 91846- 3437 Apr, [facility] [address] [address] Mar, Allergic contact dermatitis, unspecified trigger L23.9 and Right leg pain M79.604 [facility] [address] [address]- 1686 Mar, [facility] [id number] [place] [address] 92819- 2299 Mar, Bipolar II disorder F31.81 ; Post-traumatic stress disorder , chronic F43.12 and Memory change R41.3 [facility] [id number] [place] [address] 08823- 7773 04 Mar, 2017 Actinic keratosis L57.0 [facility] [address] [place] [address] 26345- 4348 Jan, Bipolar II disorder F31.81 ; Post-traumatic stress disorder , chronic F43.12 and Memory change R41.3 [facility] [address] [place] [address] 76339- 3904 28 Jan, 2017 Bipolar affective disorder, currently manic, mild F31.11 [facility] [address] [address]- 4025 13 Jan, 2017 Bipolar affective disorder, currently manic, mild F31.11 [facility] [address] [place] [address] 25448- 2252 07 Jan, 2017 Bipolar II disorder F31.81 ; Post-traumatic stress disorder , chronic F43.12 and Memory change R41.3 [facility] [address] [place] [address] 21864- 0592 Dec, Bipolar II disorder F31.81 ; Post-traumatic stress disorder , chronic F43.12 and Memory change R41.3 [facility] [address] [address]- 0278 Dec, Bipolar affective disorder, currently manic, mild F31.11 [facility] [address] [address]- 0395 Dec, Bipolar affective disorder, currently manic, mild F31.11 [facility] [address] [address]- 8486 Dec, Post-traumatic stress disorder, chronic F43.12 [facility] [id number] [place] [address] 60314- 3076 Dec, Bipolar II disorder F31.81 ; Post-traumatic stress disorder , chronic F43.12 and Memory change R41.3 [facility] [id number] [place] [address] 427631- 0703 Dec, Post-traumatic stress disorder, chronic F43.12 [facility] [id number] [place] [address] 78220- 8602 Nov, [facility] [id number] [place] [address] 97576- 9390 Nov, Bipolar II disorder F31.81 ; Post-traumatic stress disorder , chronic F43.12 and Memory change R41.3 [facility] [id number] [place] [address] 86427- 8542 Nov, [facility] [address] [place] [address] 74012- 5638 Nov, Post-traumatic stress disorder, chronic F43.12 and Bipolar II disorder F31.81 [facility] [address] [place] [address] 14899- 2922 Nov, Actinic keratosis L57.0 [facility] [id number] [place] [address] 31181- 3792 Oct, Bipolar II disorder F31.81 ; Post-traumatic stress disorder , chronic F43.12 and Memory change R41.3 [facility] [address] [place] [address] 05664- 2228 Oct, Post-traumatic stress disorder, chronic F43.12 ; Bipolar II disorder F31.81 and Memory change R41.3 [place] [address] [place] [address] 55637- 4933 Oct, Bipolar II disorder F31.81 ; Post-traumatic stress disorder , chronic F43.12 and Memory change R41.3 [place] [address] [place] [address] 55964- 4304 Oct, Actinic keratosis L57.0 [facility] [id number] [place] [address] 85966- 4631 September, Bipolar II disorder F31.81 ; Post-traumatic stress disorder , chronic F43.12 and Memory change R41.3 [place] [address] [place] [address] 01654- 8527 September, Bipolar II disorder F31.81 ; Post-traumatic stress disorder , chronic F43.12 and Memory change R41.3 [facility] [id number] [place] [address] 44641- 0382 September, Post-traumatic stress disorder, chronic F43.12 ; Bipolar II disorder F31.81 and Memory change R41.3 [place] [address] [place] [address] 77327- 4288 Jul, Bipolar II disorder F31.81 ; Post-traumatic stress disorder , chronic F43.12 and Memory change R41.3 [facility] [address] [place] [address] 45451- 0752 Jul, Bipolar II disorder F31.81 ; Post-traumatic stress disorder , chronic F43.12 and Memory change R41.3 [place] [address] [place] [address] 52503- 2014 Jul, Bipolar II disorder F31.81 ; Post-traumatic stress disorder , chronic F43.12 and Memory change R41.3 [facility] [address] [place] [address] 61449- 5484 Jul, Post-traumatic stress disorder, chronic F43.12 ; Bipolar II disorder F31.81 and Memory change R41.3 [facility] [id number] [place] [address] 58713- 5270 Jul, Tear of medial meniscus of right knee, unspecified tear type , unspecified whether old or current tear, initial encounter S83.241A [place] [address] 59131- 1094 Jul, Bipolar II disorder F31.81 ; Post-traumatic stress disorder , chronic F43.12 and Memory change R41.3 [place] [address] 33052- 1082 Jul, Shortness of breath R06.02 ; Mixed hyperlipidemia E78.2 and Chronic fatigue R53.82 [place] [address] 79801- 7572 Jul, Bipolar II disorder F31.81 ; Post-traumatic stress disorder , chronic F43.12 and Memory change R41.3 [facility] [facility] [id number] [place] [address] 41045- 1633 Jul, [facility] [address] 72198- 5169 Jun, Bipolar II disorder F31.81 ; Post-traumatic stress disorder , chronic F43.12 and Memory change R41.3 [facility] [id number] [place] [address] 53397- 1984 Jun, Post-traumatic stress disorder, chronic F43.12 ; Bipolar II disorder F31.81 and Memory change R41.3 [place] [address] 50569- 8758 Jun, Right anterior knee pain M25.561 ; Shortness of breath R06.02 and Bronchiolitis J21.9 [facility] [id number] [place] [address] 30332- 7376 Jun, [facility] [address] [address]- 1481 Jun, Bipolar II disorder F31.81 ; Post-traumatic stress disorder , chronic F43.12 and Memory change R41.3 [facility] [address] [address]- 0346 Jun, [facility] [address] [place] [address] 58084 2546 Jun, Bipolar II disorder F31.81 ; Post-traumatic stress disorder , chronic F43.12 and Memory change R41.3 [facility] [address] [place] [address] 85027- 9266 May, [facility] [id number] [place] [address] 71077 2546 May, [facility] [id number] [place] [address] 38358- 2496 May, [facility] [id number] [place] [address] 68826 2540 May, Right anterior knee pain M25.561 ; Cough R05 ; Skin lesion of right arm L98.9 and Lesion of skin of face L98.9 [facility] [address] [address] 2546 May, [facility] [address] [address] 2546 May, Post-traumatic stress disorder, chronic F43.12 ; Memory change R41.3 and Bipolar I disorder, most recent episode manic F31.10 [facility] [address] [place] [address] 20829 2546 May, [facility] [address] [place] [address] 97050 2546 May, Right anterior knee pain M25.561 [facility] [address] [place] [address] 20514- 2775 May, [place] [address] [address]- 1354 Apr, Bipolar II disorder F31.81 ; Post-traumatic stress disorder , chronic F43.12 and Memory change R41.3 [place] [address] [address]- 2328 Apr, Bipolar II disorder F31.81 ; Post-traumatic stress disorder , chronic F43.12 and Memory change R41.3 [place] [address] [place] [address] 21678- 6978 Apr, Post-traumatic stress disorder, chronic F43.12 ; Bipolar II disorder F31.81 and Memory change R41.3 [facility] [id number] [place] [address] 88651- 3669 Mar, Bipolar II disorder F31.81 ; Post-traumatic stress disorder , chronic F43.12 and Memory change R41.3 [facility] [id number] [place] [address] 89834- 3625 Mar, Memory change R41.3 ; Confusion R41.0 and Dizziness R42 [place] [address] [place] [address] 27928- 1361 Mar, Memory change R41.3 ; Encounter for immunization Z23 and Fatigue, unspecified type R53.83 [place] [address] [place] [address] 98837- 1020 Mar, Bipolar II disorder F31.81 ; Post-traumatic stress disorder , chronic F43.12 and Memory change R41.3 [place] [address] [place] [address] 09897- 1784 Jan, Bipolar II disorder F31.81 ; Post-traumatic stress disorder , chronic F43.12 and Memory change R41.3 [place] [address] [address]- 8019 Jan, Post-traumatic stress disorder, chronic F43.12 ; Bipolar II disorder F31.81 ; Anxiety disorder, unspecified F41.9 and Memory change R41.3 [facility] [address] [place] [address] 73919- 7154 Jan, Bipolar II disorder F31.81 ; Post-traumatic stress disorder , chronic F43.12 and Memory change R41.3 [facility] [address] [place] [address] 67252- 1879 Dec, Bipolar II disorder F31.81 ; Post-traumatic stress disorder , chronic F43.12 and Memory change R41.3 [facility] [address] [place] [address] 11035- 1348 Dec, Memory loss R41.3 [facility] [id number] [place] [address] 93562- 3952 Dec, Bipolar II disorder F31.81 ; Post-traumatic stress disorder , chronic F43.12 and Memory change R41.3 [facility] [id number] [place] [address] 40278- 3319 Nov, Bipolar II disorder F31.81 and Post-traumatic stress disorder, chronic F43.12 [facility] [id number] [place] [address] 65476- 5203 Nov, Bipolar II disorder F31.81 ; Post-traumatic stress disorder , chronic F43.12 and Memory change R41.3 [facility] [address] [place] [address] 26315- 7793 Oct, Post-traumatic stress disorder, chronic F43.12 and Bipolar disorder, unspecified F31.9 [facility] [address] [place] [address] 01671- 3516 Oct, Bipolar II disorder F31.81 ; Post-traumatic stress disorder , chronic F43.12 and Memory change R41.3 [facility] [address] [address] Oct, Dental examination Z01.20 [facility] [id number] [place] [address]338 September, Bipolar II disorder F31.81 ; Post-traumatic stress disorder , chronic F43.12 and Memory change R41.3 [place] [address] [place]22 Aug, Bipolar II disorder F31.81 and Post-traumatic stress disorder, chronic F43.12 [place] [id number] [place]- 6976 Aug, Bipolar II disorder F31.81 and Post-traumatic stress disorder, chronic F43.12 [place] [id number] [place] 6925 Jul, Bipolar II disorder F31.81 and Post-traumatic stress disorder, chronic F43.12 [facility] [id number] [place] [address] 23398- 3677 16 Jul, 2015 [place] [id number] [place] [address] 770295- 7834 Jul, [place] [id number] [place] [address] 247281- 5294 Jul, Post-traumatic stress disorder, chronic F43.12 and Bipolar disorder, unspecified F31.9 [facility] [id number] [place] [address] 80623- 1451 Jun, Bipolar II disorder F31.81 and Post-traumatic stress disorder, chronic F43.12 [place] [id number] [place] [address]- 3782 Jun, Post-traumatic stress disorder, chronic F43.12 and Bipolar disorder, unspecified F31.9 [place] [id number] [place] [address]- 9571 Jun, [place] [id number] [place] [address] 42149- 0236 Jun, Pharyngeal dysphagia R13.13 ; Hoarseness R49.0 and Cough R05 [facility] [id number] [place] [address] 44673- 5133 Jun, Post-traumatic stress disorder, chronic F43.12 and Bipolar disorder, unspecified F31.9 [facility] [id number] [place] [address] 36743- 6484 30 May, 2015 Cough R05 [facility] [address]66[address]- 4206 30 May, 2015 Post-traumatic stress disorder, chronic F43.12 and Bipolar disorder, unspecified F31.9 [place] [address] 69835- 257 May, Cough R05 [facility] [id number] [place] [address] 67474- 5945 16 May, 2015 [facility] [address] [id number] May, Dental examination Z01.20 [facility] [address] 66737- 7958 15 May, 2015 Bipolar II disorder F31.81 and Post-traumatic stress disorder, chronic F43.12 [facility] [id number] [place] [address] 15715- 9449 14 May, 2015 [place] [id number] [place] [address] 494459- 6539 14 May, 2015 Bipolar II disorder F31.81 and Anxiety disorder, unspecified F41.9 [facility] [id number] [place] [address] 72042- 0896 10 May, 2015 Memory change R41.3 and History of renal insufficiency syndrome Z87.448 [facility] [id number] [place] [address] 99762- 4884 03 May, 2015 Memory change R41.3 ; Dry mouth R68.2 and History of renal insufficiency syndrome Z87.448 [facility] [address] [place] [address]- 1776 May, Bipolar II disorder F31.81 and Post-traumatic stress disorder, chronic F43.12 [facility] [id number] [place] [address] 10164- 5646 Mar, Bipolar disorder, unspecified F31.9 and Generalized anxiety disorder F41.1 [facility] [id number] [place] [address] 29736- 5802 Mar, Bipolar II disorder F31.81 [facility] [id number] [place] [address] [id number]- 1100 Mar, Encounter for immunization Z23 [facility] [address] [address] Mar, [facility] [id number] [place] [address] 18618- 9563 Mar, Bipolar II disorder F31.81 [facility] [id number] [place] [address] [id number]- 0816 Mar, [facility] [id number] [place] [address] 99297- 2632 Jan, Bipolar disorder, unspecified 296.80 and Anxiety disorder 300.00 [facility] [id number] [place] [address] [id number]- 8709 Jan, [facility] [id number] [place] [address] [id number]- 0544 Jan, Bipolar disorder, unspecified 296.80 and Anxiety disorder 300.00 [facility] [id number] [place] [address] 16644- 3505 Dec, Bipolar disorder, unspecified 296.80 and Anxiety disorder 300.00 [facility] [id number] [place] [address] 86379- 4217 Dec, [facility] [id number] [place] [address] 46631- 5421 Dec, Bipolar disorder, unspecified 296.80 and Anxiety disorder 300.00 [facility] [id number] [address] Nov, Bipolar disorder, unspecified 296.80 and Anxiety disorder 300.00 [facility] [id number] [address] Oct, Bipolar disorder, unspecified 296.80 and Anxiety disorder 300.00 [facility] [id number] [place] [address] 20227- 2636 Oct, Anxiety 300.00 and Bipolar disorder, unspecified 296.80 [facility] [id number] [place] [address] 57056- 2096 September, Bipolar disorder, unspecified 296.80 and Anxiety disorder 300.00 [facility] [id number] [address] 69[address] September, [facility] [id number] [place] [address] 75361- 1007 Aug, Cough 786.2 [facility] [id number] [address] 1166 Aug, [facility] [id number] [address] [address] Aug, [facility] [id number] [address] 6626 Jul, [facility] [id number] [address] 2546 Jul, [facility] [id number] [address]- 2016 Jul, [facility] [id number] [address] 2186 Jul, [facility] [id number] [address] 4216 Jul, [facility] [id number] [address] 13 Jul, 2014 [facility] [place] [facility] [address] [id number] [place] [address]- 3050 Jun, [facility] [place] [facility] [address] [id number] [place] [address]- 4899 Jun, [facility] [place] [facility] [address] [id number] [place] [address]- 3354 Jun, [facility] [place] [facility] [address] [id number] [place] [address]- 5851 Jun, [facility] [place] [facility] [address] [id number] [place] [address]- 9054 May, [facility] [place] [facility] [address] [id number] [place] [address]- 6416 May, [facility] [place] [facility] [address] [id number] [place] [address]- 1815 May, [facility] [place] [facility] [address] [id number] [place] [address]- 5411 May, [facility] [place] [facility] [address] [id number] [place] [address]- 6618 Apr, [facility] [place] [facility] [address] [id number] [place] [address]- 0007 Apr, [facility] [place] [facility] [address] [id number] [place] [address]- 7430 Mar, [facility] [place] [facility] [address] [id number] [place] [address]- 8219 Mar, [facility] [place] [facility] [address] [id number] [place] [address]- 7142 Mar, [facility] [place] [facility] [address] [id number] [place] [address]- 1698 Mar, [facility] [place] [facility] [address] [id number] [place] [address]- 6293 Mar, [facility] [place] [facility] [address] [id number] [place] [address]- 1361 Mar, [facility] [place] [facility] [address] [id number] [place] [address]- 8829 Jan, [facility] [place] [facility] [address] [id number] [place] [address]- 2440 Jan, 2013 [facility] [place] [facility] [address] [id number] [place] [address]- 1484 Jan, 2013 [facility] [place] [facility] [address] [id number] [place] [address]- 9861 Jan, [facility] [place] [facility] [address] [id number] [place] [address]- 4692 Jan, [facility] [place] [facility] [address] [id number] [place] [address]- 8363 Jan, [facility] [place] [facility] [address] [id number] [place] [address]- 5458 Dec, [facility] [place] [facility] [address] [id number] [place] [address]- 5851 Dec, [facility] [place] [facility] [address] [id number] [place] [address]- 7005 Dec, [facility] [place] [facility] [address] [id number] [place] [address]- 2108 Dec, [facility] [place] [facility] [address] [id number] [place] [address]- 3150 Dec, [facility] [place] [facility] [address] [id number] [place] [address]- 9341 Dec, [facility] [place] [facility] [address] [id number] [place] [address]- 1763 Nov, [facility] [place] [facility] [address] [id number] [place] [address]28 Nov, [facility] [place] [facility] [address] [id number] [place] [address]- 5574 Nov, [facility] [place] [facility] [address] [id number] [place] [address]- 3115 Nov, [facility] [place] [facility] [address] [id number] [place] 1816 Nov, [facility] [place] [facility] [address] [id number] [place] [address]- 8687 Nov, [facility] [place] [facility] [address] [id number] [place] [address]- 3503 Nov, [facility] [place] [facility] [address] [id number] [place] [address]- 8787 Nov, [facility] [place] [facility] [address] [id number] [place] [address]- 2486 Nov, [facility] [place] [facility] [address] [id number] [place] [address]- 8273 Nov, [facility] [place] [facility] [address] [id number] [place] [address]- 2175 September, [facility] [place] [facility] [address] [id number] [place] [address]- 9676 September, [facility] [place] [facility] [address] [id number] [place] [address]- 5542 September, [facility] [place] [facility] [address] [id number] [place] [address]- 6362 September, [facility] [place] [facility] [address] [id number] [place] [address]- 8218 September, [facility] [place] [facility] [address] [id number] [place] [address]- 6046 September, [facility] [place] [facility] [address] [id number] [place] [address]- 9607 September, [facility] [place] [facility] [address] [id number] [place] [address]- 5964 September, [facility] [place] [facility] [address] [id number] [place] [address]- 2239 Aug, [facility] [place] [facility] [address] [id number] [place] [address]- 8627 Aug, [facility] [place] [facility] [address] [id number] [place] [address]- 5777 Aug, [facility] [place] [facility] [address] [id number] [place] [address]- 4726 Aug, [facility] [place] [facility] [address] [id number] [place] [address]- 0365 Jul, [facility] [place] [facility] [address] [id number] [place] [address]- 3750 Jul, [facility] [place] [facility] [address] [id number] [place] [address]- 0845 Jul, [facility] [place] [facility] [address] [id number] [place] [address]- 7545 Jul, [facility] [place] [facility] [address] [id number] [place] [address]- 8038 18 Jul, 2013 [facility] [place] [facility] [address] [id number] [place] [address]- 3119 Jul, [facility] [place] [facility] [address] [id number] [place] [address]- 9721 17 Jul, 2013 [facility] [place] [facility] [address] [id number] [place] [address]- 3003 Jul, [facility] [place] [facility] [address] [id number] [place] [address]- 9566 Jul, [facility] [place] [facility] [address] [id number] [place] [address]- 4238 Jul, [facility] [place] [facility] [address] [id number] [place] [address]- 9496 Jul, [facility] [place] [facility] [address] [id number] [place] [address]- 4879 Jun, [facility] [address] [id number] [place] [address]- 4893 Jun, [facility] [place] [facility] [address] [id number] [place] [address]- 7426 Jun, [facility] [address] [id number] [place] [address]- 4322 Jun, [facility] [place] [facility] [address] [id number] [place] [address]- 6597 May, [facility] [place] [facility] [address] [id number] [place] [address]- 5879 May, [facility] [place] [facility] [address] [id number] [place] [address]- 9408 Apr, [facility] [address] [id number] [place] [address]- 5996 Apr, [facility] [place] [facility] [address] [id number] [place] [address]- 6113 Apr, [facility] [place] [facility] [address] [id number] [place] [address]- 4509 Apr, [facility] [place] [facility] [address] [facility] [id number] [place] [address]- 4158 Apr, [facility] [place] [facility] [address] [id number] [place] [address]- 2441 Apr, [facility] [place] [facility] [address] [id number] [address]- 4765 Apr, [facility] [place] [facility] [address] [id number] [place] [address]- 0472 Apr, [facility] [place] [facility] [address] [id number] [place] [address]- 0824 Apr, [facility] [place] [facility] [address] [id number] [address]- 2960 Apr, [facility] [place] [facility] [id number] [address]- 0800 Apr, [facility] [id number] 0344 Apr, [facility] [id number] [address]- 7421 Mar, [facility] [id number] [address]249 Mar, [facility] [address] [facility] [id number] [address]- 5290 Mar, [facility] [id number] [place] [address] 93017- 6939 Dec, [facility] [id number] [address]- 6490 Dec, [facility] [id number] [address]- 1786 Dec, [facility] [id number] [address]- 6313 Oct, [facility] [id number] [address]- 9728 May, [facility] [id number] [address]- 0208 May, [facility] [id number] [address]- 0100 May, [facility] [id number] [address]- 9998 Dec, IMMUNIZATIONS No Known Immunizations SOCIAL HISTORY Never Assessed REASON FOR VISIT PLAN OF CARE VITAL SIGNS MEDICATIONS Unknown [...] Gall Bladder Surgical History Tubalization Hospitalization History [facility] 12/2014 Hospitalization History Obstructive Airway Disease, Mood disorder, cough-VC 07/02/15 Hospitalization History Bronchitis- [facility] 06/2016
--- OUTSIDE RECORDS SUMMARY | 2018-02-03 09:04 | XMS REPORT ---
Author Author MARYSOL CANSECO [facility] Address [address] [place] [address] Care Team Providers Care Manager Advanced Name Role Phone MARYSOL CANSECO Unavailable PROBLEMS Type Condition ICD9-CM Code ERY85-IN Code Onset Dates Condition Status SNOMED Code Problem Mixed hyperlipidemia E78.2 Active 030423972 Problem Bipolar affective disorder, currently manic, mild F31.11 Active 131031525 Problem Chronic fatigue R53.82 Active 28639856 Problem COPD exacerbation J44.1 Active 059399747 Problem Other chronic pain G89.29 Active 51960307 Problem Chronic obstructive pulmonary disease, unspecified COPD type J44.9 Active 62491880 Problem Slow transit constipation K59.01 Active 13386734 Problem Bipolar disorder, in partial remission, most recent episode mixed F31.77 Active 07161468 Problem Bipolar disorder, current episode mixed, mild F31.61 Active 735948467 Problem Bipolar II disorder F31.81 Active 73442910 Problem History of renal insufficiency syndrome Z87.448 Active 292136879 Problem Pharyngeal dysphagia R13.13 Active 56455836630880 Problem Post-traumatic stress disorder, chronic F43.12 Active 57015227 Problem Confusion R41.0 Active 918540885 Problem Memory change R41.3 Active 691658248 Problem Dizziness R42 Active 670863458 ALLERGIES No Information ENCOUNTERS Encounter Location Date Diagnosis [facility] [address] [address] Jan, [facility] [id number] [place] [address] 04999- 0226 Dec, [facility] [address] [address] 8[address] Dec, [facility] [id number] [place] [address] 45611- 9958 Nov, [facility] [address] [address] 0958 Nov, [facility] [id number] [place] [address] 47713- 9226 Nov, [facility] [id number] [place] [address] 94099- 6129 Oct, Bipolar disorder, in partial remission, most recent episode mixed F31.77 [facility] [address] [address] Oct, Scabies B86 [facility] [id number] [place] [address] 32727- 8396 Oct, Bipolar disorder, in partial remission, most recent episode mixed F31.77 [facility] [id number] [place] [address] 82591- 7838 Oct, [facility] [id number] [place] [address] 87584- 8334 Oct, Bipolar II disorder F31.81 and Post-traumatic stress disorder, chronic F43.12 [facility] [id number] [place] [address] 93314 -9893 Oct, Scabies B86 [facility] [address] [address] 85[address] Oct, [facility] [id number] [place] [address] 93807- 4694 September, Bipolar II disorder F31.81 and Post-traumatic stress disorder, chronic F43.12 [facility] [id number] [place] [address] 63092- 4829 September, Bipolar disorder, in partial remission, most recent episode mixed F31.77 [facility] [address] [address] 60[address] September, COPD exacerbation J44.1 and Elevated blood pressure reading R03.0 [facility] [id number] [place] [address] 74423- 6929 September, [facility] [facility] [address] 78291- 5944 September, Pain in left ankle and joints of left foot M25.572 ; Dermatitis L30.9 and Other chronic pain G89.29 [facility] [facility] [address] 0[address]14- 2702 Aug, Right elbow pain M25.521 and Elevated blood pressure reading R03.0 [place] [address] 32553- 0928 Aug, Bipolar disorder, current episode mixed, mild F31.61 and BMI 40.0-44.9, adult Z68.41 [place] [address] 55094- 8918 Aug, [facility] [facility] [address] 84616- 7550 Aug, Bipolar II disorder F31.81 and Post-traumatic stress disorder, chronic F43.12 [facility] [facility] [address] 20615- 2113 Jul, Elevated blood pressure reading R03.0 [facility] [id number] [place] [address] 69966- 4016 Jul, Bipolar II disorder F31.81 and Post-traumatic stress disorder, chronic F43.12 [facility] [id number] [place] [address] 83377- 5983 Jul, Bipolar disorder, current episode mixed, mild F31.61 [facility] [id number] [place] [address] 88529 -5316 Jul, Right foot pain M79.671 ; Allergic contact dermatitis, unspecified trigger L23.9 ; Contusion of right foot, initial encounter S90.31XA and BMI 40.0-44.9, adult Z68.41 [facility] [address] [address] 02 Jul, 2017 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 [facility] [id number] [place] [address] 29956- 7165 22 Jul, 2017 [facility] [id number] [place] [address] 94683- 9753 15 Jul, 2017 Bipolar disorder, current episode mixed, mild F31.61 [facility] [id number] [place] [address] 82828- 6622 15 Jul, 2017 Bipolar II disorder F31.81 ; Post-traumatic stress disorder , chronic F43.12 and Memory change R41.3 [facility] [id number] [place] [address] 69285- 9840 14 Jul, 2017 Elevated blood pressure reading R03.0 ; Chronic obstructive pulmonary disease, unspecified COPD type J44.9 ; Long-term use of high-risk medication Z79.899 and Cognitive decline R41.89 [facility] [id number] [place] [address] 16498- 3673 06 Jul, 2017 Elevated blood pressure reading R03.0 [facility] [id number] [place] [address] 35261- 5537 05 Jul, 2017 [facility] [id number] [place] [address] 63376- 0801 01 Jul, 2017 Bipolar II disorder F31.81 ; Post-traumatic stress disorder , chronic F43.12 and Memory change R41.3 [facility] [facility] [address] [address] 8[address] Jun, [facility] [id number] [place] [address] 44512- 1616 Jun, Bipolar II disorder F31.81 ; Post-traumatic stress disorder , chronic F43.12 and Memory change R41.3 [facility] [id number] [place] [address] 03007- 3712 Jun, Localized swelling, mass or lump of neck R22.1 ; Slow transit constipation K59.01 and Elevated blood pressure reading R03.0 [facility] [id number] [place] [address] 21207- 3970 Jun, [facility] [id number] [place] [address] 59621- 5787 Jun, Bipolar affective disorder, currently manic, mild F31.11 [facility] [id number] [place] [address] 07747 -5352 May, [facility] [place] [id number] [place] [address] 58512 -0353 14 May, 2017 [facility] [facility] [id number] [place] [address] 94660- 2472 13 May, 2017 Bipolar II disorder F31.81 ; Post-traumatic stress disorder , chronic F43.12 and Memory change R41.3 [facility] [id number] [place] [address] 31874- 2624 May, [facility] [facility] [id number] [place] [address] 15035- 9289 May, [facility] [facility] [id number] [place] [address] 19635- 1251 May, Bipolar affective disorder, currently manic, mild F31.11 [facility] [id number] [place] [address] 09587- 5715 May, [facility] [id number] [place] [address] 53710 -1474 May, Localized swelling, mass or lump of neck R22.1 and Localized swelling, mass and lump, head R22.0 [facility] [id number] [place] [address] 18880- 6575 Apr, [facility] [id number] [place] [address] 96669- 2603 Apr, Bipolar affective disorder, currently manic, mild F31.11 [facility] [id number] [place] [address] 73056- 8996 Apr, Bipolar II disorder F31.81 [facility] [id number] [place] [address] 85339- 2625 Apr, [facility] [id number] [place] [address] 707689- 3347 Apr, Bipolar affective disorder, currently manic, mild F31.11 [facility] [id number] [place] [address] 77230- 0742 Apr, Actinic keratosis L57.0 [facility] [id number] [place] [address] 78289- 2808 Apr, Bipolar affective disorder, currently manic, mild F31.11 [facility] [id number] [place] [address] 28045- 2584 Apr, [facility] [id number] [place] [address] 87247 -3563 Mar, Allergic contact dermatitis, unspecified trigger L23.9 and Right leg pain M79.604 [facility] [id number] [place] [address] 07115- 7396 Mar, [facility] [id number] [place] [address] 86505- 6298 Mar, Bipolar II disorder F31.81 ; Post-traumatic stress disorder , chronic F43.12 and Memory change R41.3 [facility] [id number] [place] [address] 26445- 7106 Mar, Actinic keratosis L57.0 [facility] [id number] [place] [address] 11423- 2390 Jan, Bipolar II disorder F31.81 ; Post-traumatic stress disorder , chronic F43.12 and Memory change R41.3 [facility] [facility] [address] [address]- 4987 28 Jan, 2017 Bipolar affective disorder, currently manic, mild F31.11 [facility] [id number] [place] [address] 65006- 7386 13 Jan, 2017 Bipolar affective disorder, currently manic, mild F31.11 [facility] [id number] [place] [address] 52641- 5324 07 Jan, 2017 Bipolar II disorder F31.81 ; Post-traumatic stress disorder , chronic F43.12 and Memory change R41.3 [facility] [id number] [place] [address] 29820- 9524 Dec, Bipolar II disorder F31.81 ; Post-traumatic stress disorder , chronic F43.12 and Memory change R41.3 [facility] [id number] [place] [address] 31197- 6262 Dec, Bipolar affective disorder, currently manic, mild F31.11 [facility] [id number] [place] [address] 14238- 3096 Dec, Bipolar affective disorder, currently manic, mild F31.11 [facility] [id number] [place] [address] 87270- 7270 Dec, Post-traumatic stress disorder, chronic F43.12 [facility] [id number] [place] [address] 75966- 5751 Dec, Bipolar II disorder F31.81 ; Post-traumatic stress disorder , chronic F43.12 and Memory change R41.3 [facility] [id number] [place] [address] 49951- 2962 Dec, Post-traumatic stress disorder, chronic F43.12 [facility] [address] [address]- 6769 Nov, [facility] [id number] [place] [address] 62196- 7218 Nov, Bipolar II disorder F31.81 ; Post-traumatic stress disorder , chronic F43.12 and Memory change R41.3 [facility] [address] [address]- 8685 Nov, [facility] [id number] [place] [address] 27208- 0245 Nov, Post-traumatic stress disorder, chronic F43.12 and Bipolar II disorder F31.81 [facility] [id number] [place] [address] 34545- 5577 Nov, Actinic keratosis L57.0 [facility] [id number] [place] [address] 55758- 6579 Oct, Bipolar II disorder F31.81 ; Post-traumatic stress disorder , chronic F43.12 and Memory change R41.3 [facility] [id number] [place] [address] 75485- 5742 Oct, Post-traumatic stress disorder, chronic F43.12 ; Bipolar II disorder F31.81 and Memory change R41.3 [place] [id number] [place] [address] 47645- 3452 Oct, Bipolar II disorder F31.81 ; Post-traumatic stress disorder , chronic F43.12 and Memory change R41.3 [facility] [address] [address]- 2285 Oct, Actinic keratosis L57.0 [facility] [id number] [place] [address] 42971- 3623 September, Bipolar II disorder F31.81 ; Post-traumatic stress disorder , chronic F43.12 and Memory change R41.3 [facility] [id number] [place] [address] 79403- 4382 September, Bipolar II disorder F31.81 ; Post-traumatic stress disorder , chronic F43.12 and Memory change R41.3 [facility] [facility] [id number] [place] [address] 37072- 1946 September, Post-traumatic stress disorder, chronic F43.12 ; Bipolar II disorder F31.81 and Memory change R41.3 [place] [address] [place] [address]- 984 Jul, Bipolar II disorder F31.81 ; Post-traumatic stress disorder , chronic F43.12 and Memory change R41.3 [place] [id number] [place] [address]- 2354 Jul, Bipolar II disorder F31.81 ; Post-traumatic stress disorder , chronic F43.12 and Memory change R41.3 [place] [id number] [place] [address]- 6867 Jul, Bipolar II disorder F31.81 ; Post-traumatic stress disorder , chronic F43.12 and Memory change R41.3 [place] [id number] [place] [address] 17213- 2461 Jul, Post-traumatic stress disorder, chronic F43.12 ; Bipolar II disorder F31.81 and Memory change R41.3 [place] [id number] [place] [address] 04046- 8181 Jul, Tear of medial meniscus of right knee, unspecified tear type , unspecified whether old or current tear, initial encounter S83.241A [facility] [address] [place] [address] 99112- 0685 Jul, Bipolar II disorder F31.81 ; Post-traumatic stress disorder , chronic F43.12 and Memory change R41.3 [facility] [id number] [place] [address] 21871- 0159 Jul, Shortness of breath R06.02 ; Mixed hyperlipidemia E78.2 and Chronic fatigue R53.82 [facility] [id number] [place] [address] 86484- 0644 07 Jul, 2016 Bipolar II disorder F31.81 ; Post-traumatic stress disorder , chronic F43.12 and Memory change R41.3 [facility] [address] [address]- 8088 Jul, [facility] [id number] [place] [address] 12030138- 5946 Jun, Bipolar II disorder F31.81 ; Post-traumatic stress disorder , chronic F43.12 and Memory change R41.3 [facility] [id number] [place] [address] 71140- 3188 Jun, Post-traumatic stress disorder, chronic F43.12 ; Bipolar II disorder F31.81 and Memory change R41.3 [facility] [id number] [place] [address] 01542- 4052 Jun, Right anterior knee pain M25.561 ; Shortness of breath R06.02 and Bronchiolitis J21.9 [facility] [id number] [place] [address] 75008- 8675 Jun, [facility] [id number] [place] [address] 20669- 6767 Jun, Bipolar II disorder F31.81 ; Post-traumatic stress disorder , chronic F43.12 and Memory change R41.3 [facility] [address] [address]- 7212 Jun, [facility] [address] [address]- 6587 Jun, Bipolar II disorder F31.81 ; Post-traumatic stress disorder , chronic F43.12 and Memory change R41.3 [facility] [address] [address]- 7996 May, [facility] [id number] [place] [address] [phone] 8256 May, [facility] [address] [address]- 9572 May, [facility] [id number] [place] [address] 72241- 9728 May, Right anterior knee pain M25.561 ; Cough R05 ; Skin lesion of right arm L98.9 and Lesion of skin of face L98.9 [facility] [id number] [place] [address] 69129- 1250 May, [facility] [id number] [place] [address] 61557- 4752 May, Post-traumatic stress disorder, chronic F43.12 ; Memory change R41.3 and Bipolar I disorder, most recent episode manic F31.10 [facility] [id number] [place] [address] 09247- 8689 May, [facility] [id number] [place] [address] 01202- 9553 May, Right anterior knee pain M25.561 [facility] [id number] [place] [address] 47494- 1126 May, [facility] [id number] [place] [address] 09226- 5398 Apr, Bipolar II disorder F31.81 ; Post-traumatic stress disorder , chronic F43.12 and Memory change R41.3 [facility] [id number] [place] [address] 69728- 7454 Apr, Bipolar II disorder F31.81 ; Post-traumatic stress disorder , chronic F43.12 and Memory change R41.3 [facility] [id number] [place] [address] 01484- 5713 Apr, Post-traumatic stress disorder, chronic F43.12 ; Bipolar II disorder F31.81 and Memory change R41.3 [place] [id number] [place] [address] 90121- 4215 Mar, Bipolar II disorder F31.81 ; Post-traumatic stress disorder , chronic F43.12 and Memory change R41.3 [place] [id number] [place] [address] 67489- 0626 Mar, Memory change R41.3 ; Confusion R41.0 and Dizziness R42 [place] [id number] [place] [address] 09713- 7688 05 Mar, 2016 Encounter for immunization Z23 ; Memory change R41.3 and Fatigue, unspecified type R53.83 [facility] [id number] [place] [address] 73542- 4721 Mar, Bipolar II disorder F31.81 ; Post-traumatic stress disorder , chronic F43.12 and Memory change R41.3 [place] [id number] [place] [address] 01744- 6596 Jan, Bipolar II disorder F31.81 ; Post-traumatic stress disorder , chronic F43.12 and Memory change R41.3 [place] [id number] [place] [address] 63370- 4518 Jan, Post-traumatic stress disorder, chronic F43.12 ; Bipolar II disorder F31.81 ; Anxiety disorder, unspecified F41.9 and Memory change R41.3 [place] [id number] [place] [address] 66530- 9295 15 Feb, 2016 Bipolar II disorder F31.81 ; Post-traumatic stress disorder , chronic F43.12 and Memory change R41.3 [place] [id number] [place] [address] 83310- 7656 Dec, Bipolar II disorder F31.81 ; Post-traumatic stress disorder , chronic F43.12 and Memory change R41.3 [place] [id number] [place] [address] 11518- 2043 Dec, Memory loss R41.3 [place] [id number] [place] [address] 79215- 4424 Dec, Bipolar II disorder F31.81 ; Post-traumatic stress disorder , chronic F43.12 and Memory change R41.3 [place] [id number] [place] [address] 63226- 6043 Nov, Bipolar II disorder F31.81 and Post-traumatic stress disorder, chronic F43.12 [facility] [id number] [place] [address] 57607- 6771 Nov, Bipolar II disorder F31.81 ; Post-traumatic stress disorder , chronic F43.12 and Memory change R41.3 [facility] [id number] [place] [address] 12961- 1046 Oct, Post-traumatic stress disorder, chronic F43.12 and Bipolar disorder, unspecified F31.9 [facility] [id number] [place] [address] 84114- 1321 Oct, Bipolar II disorder F31.81 ; Post-traumatic stress disorder , chronic F43.12 and Memory change R41.3 [facility] [id number] [place] [address] [id number] Oct, Dental examination Z01.20 [facility] [id number] [place] [address] 64192- 8720 September, Bipolar II disorder F31.81 ; Post-traumatic stress disorder , chronic F43.12 and Memory change R41.3 [facility] [id number] [place] [address] 47897- 2243 Aug, Bipolar II disorder F31.81 and Post-traumatic stress disorder, chronic F43.12 [facility] [id number] [place] [address] 73210- 0958 Aug, Bipolar II disorder F31.81 and Post-traumatic stress disorder, chronic F43.12 [facility] [id number] [place] [address] 26798- 4073 Jul, Bipolar II disorder F31.81 and Post-traumatic stress disorder, chronic F43.12 [facility] [id number] [place] [address] 88652- [phone] Jul, [facility] [id number] [place] [address] [phone] 15 Jul, 2015 [facility] [id number] [place] [address] [id number] Jul, Post-traumatic stress disorder, chronic F43.12 and Bipolar disorder, unspecified F31.9 [facility] [id number] [place] [address] [phone] Jun, Bipolar II disorder F31.81 and Post-traumatic stress disorder, chronic F43.12 [facility] [id number] [place] [address] [id number] Jun, Post-traumatic stress disorder, chronic F43.12 and Bipolar disorder, unspecified F31.9 [facility] [id number] [place] [address] [id number] [id number] Jun, [facility] [id number] [place] [address] [id number] Jun, Pharyngeal dysphagia R13.13 ; Hoarseness R49.0 and Cough R05 [facility] [facility] [id number] [place] [address] 93394- 3598 Jun, Post-traumatic stress disorder, chronic F43.12 and Bipolar disorder, unspecified F31.9 [facility] [id number] [place] [address] 28667- 3019 May, Cough R05 [facility] [id number] [place] [address] 04836- 7417 May, Post-traumatic stress disorder, chronic F43.12 and Bipolar disorder, unspecified F31.9 [facility] [id number] [place] [address] 34122- 9062 May, Cough R05 [facility] [id number] [place] [address] 37539- 5272 May, [facility] [id number] [place] [address] [id number] May, Dental examination Z01.20 [place] [id number] [place] [address] 62423- 1341 15 May, 2015 Bipolar II disorder F31.81 and Post-traumatic stress disorder, chronic F43.12 [facility] [id number] [place] [address] 33917- 2523 May, [place] [id number] [place] [address] 92358- 0702 May, Bipolar II disorder F31.81 and Anxiety disorder, unspecified F41.9 [place] [id number] [place] [address] 97466- 2000 May, Memory change R41.3 and History of renal insufficiency syndrome Z87.448 [place] [id number] [place] [address] 53023- 0100 May, Memory change R41.3 ; Dry mouth R68.2 and History of renal insufficiency syndrome Z87.448 [place] [id number] [place] [address] 24336- 5827 May, Bipolar II disorder F31.81 and Post-traumatic stress disorder, chronic F43.12 [place] [id number] [place] [address] 32571- 3652 Mar, Bipolar disorder, unspecified F31.9 and Generalized anxiety disorder F41.1 [place] [id number] [place] [address] 04706- 8957 Mar, Bipolar II disorder F31.81 [place] [id number] [place] [address] 56241- 3292 Mar, Encounter for immunization Z23 [place] [address] 36423- 1838 Mar, [place] [id number] [place] [address] 47142- 8749 Mar, Bipolar II disorder F31.81 [place] [address] 73819- 3906 Mar, [facility] [address] [address] Jan, Bipolar disorder, unspecified 296.80 and Anxiety disorder 300.00 [facility] [id number] [place] [address] 25230- 4006 Jan, [facility] [id number] [place] [address] 42609- 0246 Jan, Bipolar disorder, unspecified 296.80 and Anxiety disorder 300.00 [facility] [id number] [place] [address] 43210- 4736 Dec, Bipolar disorder, unspecified 296.80 and Anxiety disorder 300.00 [facility] [id number] [place] [address] 35321- 3273 Dec, [facility] [id number] [place] [address] 728845- 2797 Dec, Bipolar disorder, unspecified 296.80 and Anxiety disorder 300.00 [facility] [id number] [place] [address] 981765- 0088 Nov, Bipolar disorder, unspecified 296.80 and Anxiety disorder 300.00 [facility] [id number] [place] [address] 85434- 6794 Oct, Bipolar disorder, unspecified 296.80 and Anxiety disorder 300.00 [facility] [id number] [place] [address] 038882- 2244 Oct, Anxiety 300.00 and Bipolar disorder, unspecified 296.80 [facility] [id number] [place] [address] 36821- 0296 September, Bipolar disorder, unspecified 296.80 and Anxiety disorder 300.00 [facility] [id number] [place] [address] 97610- 6016 September, [facility] [id number] [place] [address] 069028- 5651 Aug, Cough 786.2 [facility] [place] [facility] [address] [id number] [place] [address]- 1517 Aug, [facility] [place] [facility] [address] [id number] [place] [address]- 0167 Aug, [facility] [place] [facility] [address] [id number] [place] [address]- 9980 Jul, [facility] [place] [facility] [address] [id number] [place] 9849 Jul, [facility] [place] [facility] [address] [id number] [place] [address]- 1011 Jul, [facility] [place] [facility] [address] [id number] [place] [address]- 8413 Jul, [facility] [place] [facility] [address] [id number] [place] [address]- 2744 Jul, [facility] [place] [facility] [address] [id number] [place] [address]- 8411 Jul, [facility] [place] [facility] [address] [id number] [place] [address]- 0108 Jun, [facility] [place] [facility] [address] [id number] [place] [address]- 7756 Jun, [facility] [place] [facility] [address] [id number] [place] [address]- 1332 Jun, [facility] [place] [facility] [address] [id number] [place] [address]- 0703 Jun, [facility] [place] [facility] [address] [id number] [place] [address]- 0817 May, [facility] [place] [facility] [address] [id number] [place] [address]- 3692 May, [facility] [place] [facility] [address] [facility] [id number] [place] [address]- 2325 May, [facility] [place] [facility] [address] [id number] [place] [address]- 0322 May, [facility] [place] [facility] [address] [id number] [place] [address]- 1931 Apr, [facility] [place] [facility] [address] [id number] [place] 3617 Apr, [facility] [place] [facility] [address] [id number] [place] [address]- 5326 Mar, [facility] [place] [facility] [address] [id number] [place] [address]- 2783 Mar, [facility] [place] [facility] [address] [id number] [place] [address]- 2413 Mar, [facility] [place] [facility] [address] [id number] [place] [address]- 5385 Mar, [facility] [place] [facility] [address] [id number] [place] [address]- 4080 Mar, [facility] [place] [facility] [address] [id number] [place] [address]- 5432 Mar, [facility] [place] [facility] [address] [id number] [place] [address]- 1531 Jan, [facility] [place] [facility] [address] [id number] [place] [address]- 2401 Jan, [facility] [place] [facility] [address] [id number] [place] [address]- 1447 05 Jan, 2013 [facility] [place] [facility] [address] [id number] [place] [address]- 6996 05 Jan, 2013 [facility] [place] [facility] [address] [id number] [place] [address]- 5247 Jan, [facility] [place] [facility] [address] [id number] [place] [address]- 0017 Jan, 2013 [facility] [place] [facility] [address] [id number] [place] [address]- 3479 Dec, [facility] [place] [facility] [address] [id number] [place] [address]- 1624 Dec, [facility] [place] [facility] [address] [id number] [place] [address]- 6873 Dec, [facility] [place] [facility] [address] [id number] [place] [address]- 0600 Dec, [facility] [place] [facility] [address] [id number] [place] [address]- 3346 Dec, [facility] [place] [facility] [address] [id number] [place] [address]- 8674 Dec, [facility] [place] [facility] [address] [id number] [place] [address]- 0874 Nov, [facility] [place] [facility] [address] [id number] [place] [address]- 7790 Nov, [facility] [place] [facility] [address] [id number] [place] [address]- 5026 Nov, [facility] [place] [facility] [address] [id number] [place] [address]- 9700 Nov, [facility] [place] [facility] [address] [id number] [place] [address]- 8386 Nov, [facility] [place] [facility] [address] [id number] [place] [address]- 0875 Nov, [facility] [place] [facility] [address] [id number] [place] [address]- 8812 Nov, [facility] [place] [facility] [address] [id number] [place] [address]- 3367 Nov, [facility] [place] [facility] [address] [id number] [place] [address]- 3565 Nov, [facility] [place] [facility] [address] [id number] [place] 6142 Nov, [facility] [place] [facility] [address] [id number] [place] [address]- 9653 September, [facility] [address] [id number] [place] [address]- 4626 September, [facility] [place] [facility] [address] [id number] [place] [address]- 6104 September, [facility] [place] [facility] [address] [id number] [place] [address]- 6355 September, [facility] [place] [facility] [address] [id number] [place] [address]- 5278 September, [facility] [place] [facility] [address] [id number] [place] [address]- 0754 September, [facility] [place] [facility] [address] [id number] [place] [address]- 3263 September, [facility] [address] [id number] [place] [address]- 9981 September, [facility] [place] [facility] [address] [id number] [place] [address]- 6331 Aug, [facility] [place] [facility] [address] [id number] [place] [address]- 2695 Aug, [facility] [place] [facility] [address] [id number] [place] [address]- 2171 Aug, [facility] [place] [facility] [address] [id number] [place] [address]- 5761 Aug, [facility] [place] [facility] [address] [id number] [address]- 9692 Jul, [facility] [place] [facility] [address] [id number] [place] [address]- 4455 Jul, [facility] [place] [facility] [address] [id number] [place] [address]- 4879 Jul, [facility] [place] [facility] [address] [id number] [place] [address]- 3884 Jul, [facility] [place] [facility] [address] [id number] [place] [address]- 7329 Jul, [facility] [place] [facility] [address] [id number] [place] [address]- 2426 Jul, [facility] [place] [facility] [address] [id number] [place] 1916 Jul, [facility] [place] [facility] [address] [id number] [place] [address] 2546 Jul, [facility] [place] [facility] [address] [id number] [place] [address]- 8477 Jul, [facility] [place] [facility] [address] [id number] [place] [address]- 9916 Jul, [facility] [place] [facility] [address] [id number] [place] [address]- 9802 Jul, [facility] [place] [facility] [address] [id number] [place] [address]- 7324 Jun, [facility] [place] [facility] [address] [id number] [place] [address]- 0638 Jun, [facility] [place] [facility] [address] [id number] [place] [address]- 6525 Jun, [facility] [place] [facility] [address] [id number] [place] [address]- 1979 Jun, [facility] [place] [facility] [address] [id number] [place] [address]- 3065 May, [facility] [place] [facility] [address] [id number] [place] [address] 2546 May, [facility] [place] [facility] [address] [id number] [place] [address] 2546 Apr, [facility] [place] [facility] [address] [id number] [place] [address]- 2542 Apr, [facility] [place] [facility] [address] [id number] [place] [address]- 1274 Apr, [facility] [place] [facility] [address] [id number] [place] [address]- 2774 Apr, [facility] [place] [facility] [address] [id number] [place] [address]- 8821 Apr, [facility] [place] [facility] [address] [id number] [place] [address]- 4731 Apr, [facility] [place] [facility] [address] [id number] [place] [address]- 1260 Apr, [facility] [place] [facility] [address] [id number] [place] [address]- 2300 Apr, [facility] [place] [facility] [address] [id number] [place] [address]- 7762 Apr, [facility] [place] [facility] [address] [id number] [place] [address]- 7878 Apr, [facility] [place] [facility] [address] [id number] [place] [address]- 3528 Apr, [facility] [place] [facility] [address] [id number] [place] [address]- 5139 Apr, [facility] [place] [facility] [address] [id number] [place] [address]- 1743 Mar, [facility] [place] [facility] [address] [id number] [place] [address]- 8584 Mar, [facility] [place] [facility] [address] [id number] [place] [address]- 3750 Mar, [facility] [place] [facility] [address] [id number] [place] [address]- 0185 Dec, [facility] [place] [facility] [address] [id number] [place] [address]- 5010 Dec, [facility] [place] [facility] [address] [id number] [place] [address]- 7212 Dec, [facility] [place] [facility] [address] [facility] [id number] [place] [address]- 4606 Oct, [facility] [address] [facility] [id number] [place] [address]- 3636 May, [facility] [address] [facility] [id number] [place] [address]- 2546 May, [facility] [address] [facility] [id number] [place] [address] 2546 May, [facility] [address] [facility] [id number] [place] [address]- 3567 Dec, IMMUNIZATIONS No Known Immunizations SOCIAL HISTORY Never Assessed REASON FOR VISIT Refill request PLAN OF CARE VITAL SIGNS MEDICATIONS Medication Instructions Dosage Frequency Start Date End Date Duration Status Hydrochlorothiazide 12.5 MG Orally Once a day- start [address] 1 capsule in the morning Jun, 30 day(s) Active RESULTS No Results PROCEDURES [...] Gall Bladder Surgical History Tubalization Hospitalization History [facility] 12/2014 Hospitalization History Obstructive Airway Disease, Mood disorder, cough-[facility] 07/02/15 Hospitalization History Bronchitis- [facility] 06/2016
--- OUTSIDE RECORDS SUMMARY | 2018-02-03 09:05 | XMS REPORT ---
Author Author MACEYDREW [facility] Address [address] [place] [address] Care Team Providers Care Force Variation Equipment Tender Name Role Phone LUCILADREW AJ Unavailable PROBLEMS Type Condition ICD9-CM Code BFB05-VN Code Onset Dates Condition Status SNOMED Code Problem Confusion R41.0 Active 551457509 Problem Mixed hyperlipidemia E78.2 Active 578999510 Problem Dizziness R42 Active 291908718 Problem Other chronic pain G89.29 Active 30197870 Problem Bipolar disorder, current episode mixed, mild F31.61 Active 849386766 Problem Bipolar affective disorder, currently manic, mild F31.11 Active 146348683 Problem Chronic fatigue R53.82 Active 05426912 Problem Chronic obstructive pulmonary disease, unspecified COPD type J44.9 Active 71352676 Problem Slow transit constipation K59.01 Active 14747854 Problem Post-traumatic stress disorder, chronic F43.12 Active 01503355 Problem Memory change R41.3 Active 338873507 Problem History of renal insufficiency syndrome Z87.448 Active 180548721 Problem Bipolar II disorder F31.81 Active 23483485 Problem Pharyngeal dysphagia R13.13 Active [id number] ALLERGIES No Information ENCOUNTERS Encounter Location Date Diagnosis [facility] [id number] [address] Oct, [facility] [id number] [place] [address] 28623- 0192 Oct, [facility] [id number] [place] [address] 18925- 4061 Oct, [facility] [address], [place] [address] September, [facility] [id number] [place] [address] 81191- 1335 September, [place] [id number] [place] [address] 56665- 8392 September, Pain in left ankle and joints of left foot M25.572 ; Dermatitis L30.9 and Other chronic pain G89.29 [place] [id number] [place] [address] 53120- 5250 Aug, Right elbow pain M25.521 and Elevated blood pressure reading R03.0 [place] [id number] [place] [address] 64287- 5395 Aug, Bipolar disorder, current episode mixed, mild F31.61 and BMI 40.0-44.9, adult Z68.41 [place] [address] 94667- 7881 Aug, [place] [address] 40185- 4194 Aug, Bipolar II disorder F31.81 and Post-traumatic stress disorder, chronic F43.12 [place] [id number] [place] [address] 60483- 9564 Jul, Elevated blood pressure reading R03.0 [place] [id number] [place] [address] 08605- 6942 Jul, Bipolar II disorder F31.81 and Post-traumatic stress disorder, chronic F43.12 [place] [id number] [place] [address] 08923- 9734 Jul, Bipolar disorder, current episode mixed, mild F31.61 [facility] [id number] [place] [address] 72174 -9456 Jul, Right foot pain M79.671 ; Allergic contact dermatitis, unspecified trigger L23.9 ; Contusion of right foot, initial encounter S90.31XA and BMI 40.0-44.9, adult Z68.41 [facility] [id number] [place] [address] 11704 -0569 Jul, 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 [place] [id number] [place] [address] 07140- 4799 Jul, [place] [id number] [place] [address] 15 Jul, 2017 Bipolar disorder, current episode mixed, mild F31.61 [place] [address] 93065- 9304 15 Jul, 2017 Bipolar II disorder F31.81 ; Post-traumatic stress disorder , chronic F43.12 and Memory change R41.3 [place] [id number] [place] [address] 56868- 7518 14 Jul, 2017 Elevated blood pressure reading R03.0 ; Chronic obstructive pulmonary disease, unspecified COPD type J44.9 ; Long-term use of high-risk medication Z79.899 and Cognitive decline R41.89 [place] [id number] [place] [address] 18127- 4875 06 Jul, 2017 Elevated blood pressure reading R03.0 [place] [id number] [place] [address] 40229- 5578 05 Jul, 2017 [place] [id number] [place] [address] 12341- 6283 01 Jul, 2017 Bipolar II disorder F31.81 ; Post-traumatic stress disorder , chronic F43.12 and Memory change R41.3 [place] [id number] [place] [address] 13686- 6103 Jun, [place] [id number] [place] [address] 11075- 4028 Jun, Bipolar II disorder F31.81 ; Post-traumatic stress disorder , chronic F43.12 and Memory change R41.3 [place] [id number] [place] [address] 26994- 4867 Jun, Localized swelling, mass or lump of neck R22.1 ; Slow transit constipation K59.01 and Elevated blood pressure reading R03.0 [place] [id number] [place] [address] 41485- 9242 Jun, [place] [address] 53022- 0635 Jun, Bipolar affective disorder, currently manic, mild F31.11 [facility] [place] [address] 40871 -5388 15 May, 2017 [facility] [place] [address] 39971 -3936 May, [place] [address] 44997- 0657 May, Bipolar II disorder F31.81 ; Post-traumatic stress disorder , chronic F43.12 and Memory change R41.3 [place] [address] 52777- 7837 May, [place] [id number] [place] [address] 01586- 2018 May, [place] [id number] [place] [address] 70162- 1875 May, Bipolar affective disorder, currently manic, mild F31.11 [place] [id number] [place] [address] 76969- 5212 May, [facility] [place] [id number] [place] [address] 24658 -5467 May, Localized swelling, mass or lump of neck R22.1 and Localized swelling, mass and lump, head R22.0 [place] [id number] [place] [address] 26910- 1683 Apr, [place] [id number] [place] [address] 61857- 5179 Apr, Bipolar affective disorder, currently manic, mild F31.11 [place] [address], [place] [address] 4557 07 Apr, 2017 Bipolar II disorder F31.81 [facility] [id number] [place] [address] 06097- 0803 Apr, [facility] [id number] [place] [address] 75554- 1938 Apr, Bipolar affective disorder, currently manic, mild F31.11 [facility] [id number] [place] [address] 02097- 8583 Apr, Actinic keratosis L57.0 [facility] [id number] [place] [address] 90053- 2088 Apr, Bipolar affective disorder, currently manic, mild F31.11 [facility] [id number] [place] [address] 63726- 6895 Apr, [facility] [id number] [place] [address] 11665 -5857 Mar, Allergic contact dermatitis, unspecified trigger L23.9 and Right leg pain M79.604 [facility] [id number] [place] [address] 72338- 3960 Mar, [facility] [id number] [place] [address] 51854- 0896 Mar, Bipolar II disorder F31.81 ; Post-traumatic stress disorder , chronic F43.12 and Memory change R41.3 [facility] [address] [place] [address] 36504- 2293 Mar, Actinic keratosis L57.0 [facility] [id number] [place] [address] 72391- 8928 Jan, Bipolar II disorder F31.81 ; Post-traumatic stress disorder , chronic F43.12 and Memory change R41.3 [facility] [id number] [place] [address] 34350- 9473 Jan, Bipolar affective disorder, currently manic, mild F31.11 [facility] [address] [facility] [id number], [place] [address] 6531 13 Jan, 2017 Bipolar affective disorder, currently manic, mild F31.11 [facility] [address] [facility] [id number], [place] [address]- 2926 07 Jan, 2017 Bipolar II disorder F31.81 ; Post-traumatic stress disorder , chronic F43.12 and Memory change R41.3 [facility] [address] [facility] [id number], [place] [address] 9221 Dec, Bipolar II disorder F31.81 ; Post-traumatic stress disorder , chronic F43.12 and Memory change R41.3 [facility] [address] [facility] [id number], [place] [address] 7430 Dec, Bipolar affective disorder, currently manic, mild F31.11 [facility] [id number], [place] [address]- 7536 Dec, Bipolar affective disorder, currently manic, mild F31.11 [facility] [address] [facility] [id number], [place] [address]- 0470 Dec, Post-traumatic stress disorder, chronic F43.12 [facility] [address] [facility] [id number], [place] [address]- 4925 Dec, Bipolar II disorder F31.81 ; Post-traumatic stress disorder , chronic F43.12 and Memory change R41.3 [facility] [address] [facility] [id number], [place] [address]- 4735 Dec, Post-traumatic stress disorder, chronic F43.12 [facility] [address] [facility] [id number], [place] [address]- 6672 Nov, [facility] [address] [facility] [id number], [place] [address]- 3878 Nov, Bipolar II disorder F31.81 ; Post-traumatic stress disorder , chronic F43.12 and Memory change R41.3 [place] [address], [place] [address]- 4780 Nov, [facility] [id number] [place] [address] 83706- 1598 Nov, Post-traumatic stress disorder, chronic F43.12 and Bipolar II disorder F31.81 [facility] [address], [place] [address]- 7535 Nov, Actinic keratosis L57.0 [facility] [address], [place] [address]- 1285 Oct, Bipolar II disorder F31.81 ; Post-traumatic stress disorder , chronic F43.12 and Memory change R41.3 [place] [address], [place] [address]- 5301 Oct, Post-traumatic stress disorder, chronic F43.12 ; Bipolar II disorder F31.81 and Memory change R41.3 [place] [address], [place] [address]- 6186 Oct, Bipolar II disorder F31.81 ; Post-traumatic stress disorder , chronic F43.12 and Memory change R41.3 [place] [address], [place] [address]- 3424 Oct, Actinic keratosis L57.0 [place] [address], [place] [address]- 2636 September, Bipolar II disorder F31.81 ; Post-traumatic stress disorder , chronic F43.12 and Memory change R41.3 [place] [address], [place] [address]- 9886 September, Bipolar II disorder F31.81 ; Post-traumatic stress disorder , chronic F43.12 and Memory change R41.3 [place] [address], [place] [address]- 1246 September, Post-traumatic stress disorder, chronic F43.12 ; Bipolar II disorder F31.81 and Memory change R41.3 [place] [address], [place] [address]- 8114 Jul, Bipolar II disorder F31.81 ; Post-traumatic stress disorder , chronic F43.12 and Memory change R41.3 [place] [address] [place] [address] 53138- 6035 15 Jul, 2016 Bipolar II disorder F31.81 ; Post-traumatic stress disorder , chronic F43.12 and Memory change R41.3 [place] [address] [place] [address] 04250- 6171 Jul, Bipolar II disorder F31.81 ; Post-traumatic stress disorder , chronic F43.12 and Memory change R41.3 [place] [address] [place] [address] 11156- 1141 Jul, Post-traumatic stress disorder, chronic F43.12 ; Bipolar II disorder F31.81 and Memory change R41.3 [place] [address] [place] [address] 09501- 2172 23 Jul, 2016 Tear of medial meniscus of right knee, unspecified tear type , unspecified whether old or current tear, initial encounter S83.241A [place] [address] [place] [address] 47516- 7774 21 Jul, 2016 Bipolar II disorder F31.81 ; Post-traumatic stress disorder , chronic F43.12 and Memory change R41.3 [place] [address] [place] [address] 39820- 5563 07 Jul, 2016 Shortness of breath R06.02 ; Mixed hyperlipidemia E78.2 and Chronic fatigue R53.82 [place] [id number] [place] [address] 66979- 1466 07 Jul, 2016 Bipolar II disorder F31.81 ; Post-traumatic stress disorder , chronic F43.12 and Memory change R41.3 [place] [address] [place] [address] 12078- 8495 Jul, [facility] [id number] [place] [address] 76141- 1326 Jun, Bipolar II disorder F31.81 ; Post-traumatic stress disorder , chronic F43.12 and Memory change R41.3 [facility] [id number] [place] [address] 92811- 0933 Jun, Post-traumatic stress disorder, chronic F43.12 ; Bipolar II disorder F31.81 and Memory change R41.3 [facility] [id number] [place] [address] 85120- 1131 Jun, Right anterior knee pain M25.561 ; Shortness of breath R06.02 and Bronchiolitis J21.9 [facility] [id number] [place] [address] 80499- 9784 Jun, [facility] [id number] [place] [address] 96310- 2136 Jun, Bipolar II disorder F31.81 ; Post-traumatic stress disorder , chronic F43.12 and Memory change R41.3 [facility] [id number] [place] [address] 74627- 2601 Jun, [facility] [id number] [place] [address] 91874- 6367 Jun, Bipolar II disorder F31.81 ; Post-traumatic stress disorder , chronic F43.12 and Memory change R41.3 [facility] [id number] [place] [address] 94404- 2341 May, [facility] [id number] [place] [address] 11890- 2265 May, [facility] [id number] [place] [address] 00524- 0971 May, [facility] [address], [place] [address]- 8286 May, Right anterior knee pain M25.561 ; Cough R05 ; Skin lesion of right arm L98.9 and Lesion of skin of face L98.9 [place] [id number] [place] [address] 05769- 4305 May, [facility] [id number] [place] [address]- 0917 May, Post-traumatic stress disorder, chronic F43.12 ; Memory change R41.3 and Bipolar I disorder, most recent episode manic F31.10 [place] [id number] [place] [address] 38087- 6779 May, [place] [address] 018568- 7363 May, Right anterior knee pain M25.561 [place] [address] 31813- 0424 May, [place] [id number] [place] [address] 10557- 3615 Apr, Bipolar II disorder F31.81 ; Post-traumatic stress disorder , chronic F43.12 and Memory change R41.3 [place] [id number] [place] [address] 90174- 5142 Apr, Bipolar II disorder F31.81 ; Post-traumatic stress disorder , chronic F43.12 and Memory change R41.3 [place] [id number] [place] [address] 25172- 0857 Apr, Post-traumatic stress disorder, chronic F43.12 ; Bipolar II disorder F31.81 and Memory change R41.3 [place] [id number] [place] [address] 43280- 7438 Mar, Bipolar II disorder F31.81 ; Post-traumatic stress disorder , chronic F43.12 and Memory change R41.3 [place] [id number] [place] [address] 51392- 2711 Mar, Memory change R41.3 ; Confusion R41.0 and Dizziness R42 [place] [address], [place] [address]- 6056 05 Mar, 2016 Memory change R41.3 ; Encounter for immunization Z23 and Fatigue, unspecified type R53.83 [place] [address], [place] [address]- 9247 03 Mar, 2016 Bipolar II disorder F31.81 ; Post-traumatic stress disorder , chronic F43.12 and Memory change R41.3 [place] [id number] [place] [address] 89536- 4957 21 Feb, 2016 Bipolar II disorder F31.81 ; Post-traumatic stress disorder , chronic F43.12 and Memory change R41.3 [place] [id number] [place] [address] 93776- 8170 19 Feb, 2016 Post-traumatic stress disorder, chronic F43.12 ; Bipolar II disorder F31.81 ; Anxiety disorder, unspecified F41.9 and Memory change R41.3 [place] [address] [place] [address] 91039- 4353 15 Feb, 2016 Bipolar II disorder F31.81 ; Post-traumatic stress disorder , chronic F43.12 and Memory change R41.3 [place] [address] [place] [address] 87767- 2455 Dec, Bipolar II disorder F31.81 ; Post-traumatic stress disorder , chronic F43.12 and Memory change R41.3 [place] [address], [place] [address]- 8241 16 Jan, 2016 Memory loss R41.3 [place] [address] [place] [address] 91216- 7650 Dec, Bipolar II disorder F31.81 ; Post-traumatic stress disorder , chronic F43.12 and Memory change R41.3 [place] [address], [place] [address]- 4196 Nov, Bipolar II disorder F31.81 and Post-traumatic stress disorder, chronic F43.12 [facility] [address], [place] [address]- 4036 Nov, Bipolar II disorder F31.81 ; Post-traumatic stress disorder , chronic F43.12 and Memory change R41.3 [facility] [address], [place] [address]- 6809 Oct, Post-traumatic stress disorder, chronic F43.12 and Bipolar disorder, unspecified F31.9 [facility] [address] [place] [address] 92500- 6435 Oct, Bipolar II disorder F31.81 ; Post-traumatic stress disorder , chronic F43.12 and Memory change R41.3 [facility] [address] [id number] Oct, Dental examination Z01.20 [facility] [address] [place] [address] 42624- 2838 September, Bipolar II disorder F31.81 ; Post-traumatic stress disorder , chronic F43.12 and Memory change R41.3 [facility] [address] [place] [address] 15917- 9987 Aug, Bipolar II disorder F31.81 and Post-traumatic stress disorder, chronic F43.12 [facility] [address] [place] [address] 29357- 6438 Aug, Bipolar II disorder F31.81 and Post-traumatic stress disorder, chronic F43.12 [facility] [address], [place] [address]- 9732 Jul, Bipolar II disorder F31.81 and Post-traumatic stress disorder, chronic F43.12 [facility] [address], [place] [address]- 2753 Jul, [facility] [address] [place] [address] 21174- 3670 Jul, [facility] [id number] [place] [address]- 5736 15 Jul, 2015 Post-traumatic stress disorder, chronic F43.12 and Bipolar disorder, unspecified F31.9 [facility] [address] 161 Jun, Bipolar II disorder F31.81 and Post-traumatic stress disorder, chronic F43.12 [facility] [address] [place] [address]- 250 Jun, Post-traumatic stress disorder, chronic F43.12 and Bipolar disorder, unspecified F31.9 [facility] [address] 291 Jun, [place] [address] 077 Jun, Pharyngeal dysphagia R13.13 ; Hoarseness R49.0 and Cough R05 [facility] [address] 46943- 4404 Jun, Post-traumatic stress disorder, chronic F43.12 and Bipolar disorder, unspecified F31.9 [facility] [address] [place] 246808- 8640 May, Cough R05 [facility] [address] 605068- 0991 May, Post-traumatic stress disorder, chronic F43.12 and Bipolar disorder, unspecified F31.9 [facility] [id number] [place] [address] 64289- 4592 May, Cough R05 [facility] [address] 61301- 9034 May, [facility] [address] [id number] May, Dental examination Z01.20 [facility] [address] 71083- 6176 May, Bipolar II disorder F31.81 and Post-traumatic stress disorder, chronic F43.12 [facility] [id number] [place] [address] 65115- 0396 May, [facility] [id number] [place] [address] 08938- 1208 May, Bipolar II disorder F31.81 and Anxiety disorder, unspecified F41.9 [facility] [address] 60343- 5694 May, Memory change R41.3 and History of renal insufficiency syndrome Z87.448 [facility] [address] 79632- 3554 May, Memory change R41.3 ; Dry mouth R68.2 and History of renal insufficiency syndrome Z87.448 [facility] [address] 33289- 7766 May, Bipolar II disorder F31.81 and Post-traumatic stress disorder, chronic F43.12 [facility] [id number] [place] [address] 30529- 0109 Mar, Bipolar disorder, unspecified F31.9 and Generalized anxiety disorder F41.1 [facility] [id number] [place] [address] 18562- 9399 Mar, Bipolar II disorder F31.81 [facility] [id number] [place] [address] 06965- 3550 Mar, Encounter for immunization Z23 [facility] [id number] [place] [address] 90983- 4900 Mar, [facility] [address] 65560- 8693 Mar, Bipolar II disorder F31.81 [facility] [id number] [place] [address] 39651- 8068 Mar, [facility] [address] 96481- 9500 Jan, Bipolar disorder, unspecified 296.80 and Anxiety disorder 300.00 [facility] [address] [address]- 0316 Jan, [facility] [id number] [place] [address] 75914396- 7119 Jan, Bipolar disorder, unspecified 296.80 and Anxiety disorder 300.00 [facility] [id number] [place] [address] 72970- 7277 Dec, Bipolar disorder, unspecified 296.80 and Anxiety disorder 300.00 [facility] [id number] [place] [address] 02149- 1414 Dec, [facility] [id number] [place] [address] 77577- [id number] Dec, Bipolar disorder, unspecified 296.80 and Anxiety disorder 300.00 [facility] [id number] [place] [address] [id number]- [id number] Nov, Bipolar disorder, unspecified 296.80 and Anxiety disorder 300.00 [facility] [id number] [place] [address] [id number]- 0022 Oct, Bipolar disorder, unspecified 296.80 and Anxiety disorder 300.00 [facility] [id number] [place] [address] [id number]- 3409 Oct, Anxiety 300.00 and Bipolar disorder, unspecified 296.80 [facility] [id number] [place] [address] [id number]- [phone] September, Bipolar disorder, unspecified 296.80 and Anxiety disorder 300.00 [facility] [id number] [place] [address] [id number]- [phone] September, [facility] [id number] [place] [address] [id number]- 3436 Aug, Cough 786.2 [facility] [id number] [place] [address] [id number]- [phone] 14 Aug, 2014 [facility] [address] [id number] [place] [address] Aug, [facility] [place] [facility] [address] [id number] [place] [address] Jul, [facility] [place] [facility] [address] [facility] [id number] [place] [address] Jul, [facility] [place] [facility] [address] [id number] [place] [address] Jul, [facility] [place] [facility] [address] [id number] [place] [address] Jul, [facility] [place] [facility] [address] [facility] [id number] [place] [address] Jul, [facility] [place] [facility] [address] [facility] [id number] [place] [address] 69[address] Jul, [facility] [place] [facility] [address] [facility] [id number] [place] [address] Jun, [facility] [place] [facility] [address] [facility] [id number] [place] [address] Jun, [facility] [place] [facility] [address] [facility] [id number] [place] [address] Jun, [facility] [place] [facility] [address] [facility] [id number], [place] [address] Jun, [facility] [place] [facility] [address] [id number], [place] [address] May, [facility] [place] [facility] [address] [id number] [place] [address] May, [facility] [place] [facility] [address] [facility] [id number] [place] [address] May, [facility] [place] [facility] [address] [facility] [id number] [place] [address] 9384 May, [facility] [place] [facility] [address] [id number] [place] [address] 3527 Apr, [facility] [place] [facility] [address] [id number] [place] [address] Apr, [facility] [place] [facility] [address] [id number] [place] [address] Mar, [facility] [place] [facility] [address] [id number] [place] [address]64 Mar, [facility] [place] [facility] [address] [id number] [place] [address] 45[address] Mar, [facility] [place] [facility] [address] [id number] [place] [address] 8086 Mar, [facility] [place] [facility] [address] [id number] [place] [address] 7[address] Mar, [facility] [place] [facility] [address] [id number] [place] [address]365 Mar, [facility] [place] [facility] [address] [id number] [place] [address] Jan, [facility] [place] [facility] [address] [id number] [place] [address] 9934 Jan, [facility] [place] [facility] [address] [id number] [place] [address]573 Jan, [facility] [place] [facility] [address] [id number] [place] [address]- [address] 05 Jan, 2013 [facility] [place] [facility] [address] [id number] [place] [address]- [address]64 Jan, [facility] [place] [facility] [address] [id number] [place] [address]- 7976 Jan, [facility] [place] [facility] [address] [id number] [place] [address] Dec, [facility] [place] [facility] [address] [id number] [place] [address] Dec, [facility] [place] [facility] [address] [id number] [place] [address] 6467 Dec, [facility] [place] [facility] [address] [id number] [place] [address]- 0428 Dec, [facility] [place] [facility] [address] [id number] [place] [address] 1365 Dec, [facility] [place] [facility] [address] [id number] [place] [address]- [address]255 Dec, [facility] [place] [facility] [address] [id number] [place] [address]64 Nov, [facility] [place] [facility] [address] [id number] [place] [address]- 7410 Nov, [facility] [place] [facility] [address] [id number] [place] [address]- 3987 Nov, [facility] [place] [facility] [address] [id number] [place] [address]- [address]647 Nov, [facility] [place] [facility] [address] [id number] [place] [address] 5838 Nov, [facility] [place] [facility] [address] [id number] [place] [address]- 8087 Nov, [facility] [place] [facility] [address] [id number] [place] [address]337 Nov, [facility] [place] [facility] [address] [id number] [place] [address]- 9399 Nov, [facility] [place] [facility] [address] [id number] [place] [address]- 9987 Nov, [facility] [place] [facility] [address] [id number] [place] [address]- 5144 Nov, [facility] [place] [facility] [address] [id number] [place] [address]- [address]247 September, [facility] [place] [facility] [address] [id number] [place] [address]- 4180 September, [facility] [place] [facility] [address] [id number] [place] [address]- 7265 September, [facility] [place] [facility] [address] [id number] [place] [address]- 5215 September, [facility] [place] [facility] [address] [id number] [place] [address]- 2668 September, [facility] [place] [facility] [address] [id number] [place] [address]- 8831 September, [facility] [place] [facility] [address] [id number] [place] [address] September, [facility] [place] [facility] [address] [id number] [place] [address]- 6224 September, [facility] [place] [facility] [address] [id number] [place] [address] 3464 Aug, [facility] [place] [facility] [address] [id number] [place] [address]- 7150 Aug, [facility] [place] [facility] [address] [id number] [place] [address]- 2099 Aug, [facility] [place] [facility] [address] [facility] [id number] [place] [address] 2032 Aug, [facility] [place] [facility] [address] [id number] [place] [address]- 5189 Jul, [facility] [place] [facility] [address] [id number] [place] [address]- 3673 Jul, [facility] [place] [facility] [address] [id number] [place] [address]- 5361 Jul, [facility] [place] [facility] [address] [id number] [place] [address]- 6223 Jul, [facility] [place] [facility] [address] [id number] [place] [address]- 1061 Jul, [facility] [place] [facility] [address] [id number] [place] [address]- 5258 Jul, [facility] [place] [facility] [address] [id number] [place] [address]- 0796 Jul, [facility] [place] [facility] [address] [id number] [place] [address]- 9509 Jul, [facility] [place] [facility] [address] [id number] [place] [address]- 8389 Jul, [facility] [place] [facility] [address] [id number] [place] [address]- 4500 Jul, [facility] [place] [facility] [address] [id number] [place] [address]- 8786 Jul, [facility] [place] [facility] [address] [id number] [place] [address]- 3046 Jun, [facility] [place] [facility] [address] [id number] [place] [address]- 1628 Jun, [facility] [place] [facility] [address] [id number] [place] [address]- 4452 Jun, [facility] [place] [facility] [address] [facility] [id number] [place] [address]- 3068 Jun, [facility] [place] [facility] [address] [id number] [place] [address]- 0290 May, [facility] [place] [facility] [address] [id number] [place] [address]- 0340 May, [facility] [place] [facility] [address] [id number] [place] [address]- 2550 Apr, [facility] [place] [facility] [address] [id number] [place] [address]- 8711 Apr, [facility] [place] [facility] [address] [id number] [place] [address]- 5257 Apr, [facility] [place] [facility] [address] [id number] [place] [address]- 2542 Apr, [facility] [place] [facility] [address] [id number] [place] [address]- 9466 Apr, [facility] [place] [facility] [address] [id number] [place] [address]- 5749 Apr, [facility] [place] [facility] [address] [id number] [place] [address]- 6231 Apr, [facility] [place] [facility] [address] [id number] [place] [address]- 3592 Apr, [facility] [place] [facility] [address] [id number] [place] [address]- 3151 Apr, [facility] [place] [facility] [address] [id number] [place] [address]- 3128 Apr, [facility] [place] [facility] [address] [id number] [place] [address]- 8118 Apr, [facility] [place] [facility] [address] [id number] [place] [address]- 8344 Apr, [facility] [place] [facility] [address] [id number] [place] [address]- 8775 Mar, [facility] [place] [facility] [address] [id number] [place] [address]- 4652 Mar, [facility] [place] [facility] [address] [id number] [place] [address]- 8112 Mar, [facility] [place] [facility] [address] [id number] [place] [address]- 8916 Dec, [facility] [place] [facility] [address] [id number] [place] [address]- 6199 Dec, [facility] [place] [facility] [address] [id number] [place] [address]- 6411 Dec, [facility] [place] [facility] [address] [id number] [place] [address]- 3402 Oct, [facility] [address] [facility] [id number] [place] [address]- 4736 May, [facility] [address] [facility] [id number], [place] [address]- 1496 May, [facility] [address] [facility] [id number], [place] [address]- 1185 May, [facility] [address] [facility] [id number], [place] [address]- [address]995 Dec, IMMUNIZATIONS No Known Immunizations SOCIAL HISTORY Never Assessed REASON FOR VISIT Other PLAN OF CARE VITAL SIGNS MEDICATIONS Unknown [...] Tubalization Hospitalization History [facility] 12/2014 Hospitalization History Obstructive Airway Disease, Mood disorder, cough-[facility] 07/02/15 Hospitalization History Bronchitis- [facility] 06/2016
--- OUTSIDE RECORDS SUMMARY | 2018-02-03 09:06 | XMS REPORT ---
Author Author MACEYDREW [facility] Address [address] [place] [address] Care Team Providers Care Seamer Name Role Phone LUCILADREW AJ Unavailable PROBLEMS Type Condition ICD9-CM Code UZN54-WV Code Onset Dates Condition Status SNOMED Code Problem Mixed hyperlipidemia E78.2 Active 176629368 Problem Bipolar affective disorder, currently manic, mild F31.11 Active 017013324 Problem Chronic fatigue R53.82 Active 33894886 Problem COPD exacerbation J44.1 Active 122970499 Problem Other chronic pain G89.29 Active 00211505 Problem Chronic obstructive pulmonary disease, unspecified COPD type J44.9 Active 69355427 Problem Slow transit constipation K59.01 Active 31761314 Problem Bipolar disorder, in partial remission, most recent episode mixed F31.77 Active 36148211 Problem Bipolar disorder, current episode mixed, mild F31.61 Active 829696068 Problem Bipolar II disorder F31.81 Active 83362309 Problem History of renal insufficiency syndrome Z87.448 Active 630908859 Problem Pharyngeal dysphagia R13.13 Active [id number] Problem Post-traumatic stress disorder, chronic F43.12 Active 52993573 Problem Confusion R41.0 Active 904508120 Problem Memory change R41.3 Active 882052480 Problem Dizziness R42 Active 729172318 ALLERGIES No Information ENCOUNTERS Encounter Location Date Diagnosis [facility] [address] [id number] [address] Jan, [facility] [address] [address] Dec, [facility] [address], [place] [address]26 Dec, [facility] [id number] [place] [address] 23970- 5832 Nov, [facility] [address], [place] [address] 9[address] Nov, [facility] [id number] [place] [address] 42993- 7516 Nov, [facility] [address], [place] [address] Oct, Bipolar disorder, in partial remission, most recent episode mixed F31.77 [facility] [address], [place] [address] Oct, Sc[facility]ies B86 [facility] [id number] [place] [address] 08425- 1278 Oct, Bipolar disorder, in partial remission, most recent episode mixed F31.77 [facility] [id number] [place] [address] 46600- 4697 Oct, [facility] [id number] [place] [address] 83581- 9349 Oct, Bipolar II disorder F31.81 and Post-traumatic stress disorder, chronic F43.12 [facility] [address], [place] [address] Oct, [facility] [address], [place] [address] 8[address] Oct, [facility] [id number] [place] [address] 21546- 7295 September, Bipolar II disorder F31.81 and Post-traumatic stress disorder, chronic F43.12 [facility] [id number] [place] [address] 44293- 8267 September, Bipolar disorder, in partial remission, most recent episode mixed F31.77 [facility] [address], [place] [address] September, COPD exacerbation J44.1 and Elevated blood pressure reading R03.0 [place] [id number] [place] [address] 21803- 6397 September, [place] [address] [address] September, Pain in left ankle and joints of left foot M25.572 ; Dermatitis L30.9 and Other chronic pain G89.29 [place] [address] 43802- 0382 Aug, Right elbow pain M25.521 and Elevated blood pressure reading R03.0 [place] [id number] [place] [address] 02750- 1189 Aug, Bipolar disorder, current episode mixed, mild F31.61 and BMI 40.0-44.9, adult Z68.41 [place] [address] [address]- [address] Aug, [place] [address] 27959- 3245 Aug, Bipolar II disorder F31.81 and Post-traumatic stress disorder, chronic F43.12 [place] [id number] [place] [address] 66218- 4699 Jul, Elevated blood pressure reading R03.0 [place] [id number] [place] [address] 01614- 9922 Jul, Bipolar II disorder F31.81 and Post-traumatic stress disorder, chronic F43.12 [place] [id number] [place] [address] 07245- 3114 Jul, Bipolar disorder, current episode mixed, mild F31.61 [facility] [id number] [place] [address] 39978 -0326 Jul, Right foot pain M79.671 ; Allergic contact dermatitis, unspecified trigger L23.9 ; Contusion of right foot, initial encounter S90.31XA and BMI 40.0-44.9, adult Z68.41 [facility] [address], [place] [address] Jul, 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 [facility] [id number] [place] [address] 53319- 2985 22 Jul, 2017 [facility] [id number] [place] [address] 04370- 0596 15 Jul, 2017 Bipolar disorder, current episode mixed, mild F31.61 [place] [id number] [place] [address] 78397- 0612 15 Jul, 2017 Bipolar II disorder F31.81 ; Post-traumatic stress disorder , chronic F43.12 and Memory change R41.3 [place] [id number] [place] [address] 24542- 8342 14 Jul, 2017 Elevated blood pressure reading R03.0 ; Chronic obstructive pulmonary disease, unspecified COPD type J44.9 ; Long-term use of high-risk medication Z79.899 and Cognitive decline R41.89 [place] [address], [place] [address] 06 Jul, 2017 Elevated blood pressure reading R03.0 [place] [id number] [place] [address] 70550- 2112 05 Jul, 2017 [place] [id number] [place] [address] 84066- 6551 01 Jul, 2017 Bipolar II disorder F31.81 ; Post-traumatic stress disorder , chronic F43.12 and Memory change R41.3 [place] [address], [place] [address] 67[address] Jun, [place] [id number] [place] [address] 12111- 8332 Jun, Bipolar II disorder F31.81 ; Post-traumatic stress disorder , chronic F43.12 and Memory change R41.3 [place] [id number] [place] [address] 05913- 7823 Jun, Localized swelling, mass or lump of neck R22.1 ; Slow transit constipation K59.01 and Elevated blood pressure reading R03.0 [place] [id number] [place] [address] 00610- 8264 Jun, [place] [id number] [place] [address] 30658- 9831 Jun, Bipolar affective disorder, currently manic, mild F31.11 [facility] [id number] [place] [address] 06867 -4568 May, [facility] [place] [id number] [place] [address] 26336 -4825 May, [place] [id number] [place] [address] 06400- 3256 13 May, 2017 Bipolar II disorder F31.81 ; Post-traumatic stress disorder , chronic F43.12 and Memory change R41.3 [place] [id number] [place] [address] 75989- 0251 May, [place] [id number] [place] [address] 66099- 3779 May, [place] [id number] [place] [address] 06911- 3102 May, Bipolar affective disorder, currently manic, mild F31.11 [place] [id number] [place] [address] 14885- 7372 May, [facility] [id number] [place] [address] 34799 -6644 May, Localized swelling, mass or lump of neck R22.1 and Localized swelling, mass and lump, head R22.0 [place] [id number] [place] [address] 13648- 6789 Apr, [place] [id number] [place] [address] 51062- 9119 08 Apr, 2017 Bipolar affective disorder, currently manic, mild F31.11 [facility] [id number] [place] [address] 83887- 8730 Apr, Bipolar II disorder F31.81 [facility] [id number] [place] [address] 92976- 0358 Apr, [facility] [id number] [place] [address] 578759- 1088 Apr, Bipolar affective disorder, currently manic, mild F31.11 [facility] [id number] [place] [address] 92930- 9137 Apr, Actinic keratosis L57.0 [facility] [id number] [place] [address] 48228- 8077 Apr, Bipolar affective disorder, currently manic, mild F31.11 [facility] [id number] [place] [address] 17437- 6950 Apr, [facility] [id number] [place] [address] 62730 -6027 Mar, Allergic contact dermatitis, unspecified trigger L23.9 and Right leg pain M79.604 [facility] [address], [place] [address]- 8408 Mar, [facility] [id number] [place] [address] 22013- 1390 Mar, Bipolar II disorder F31.81 ; Post-traumatic stress disorder , chronic F43.12 and Memory change R41.3 [facility] [id number] [place] [address] 88289- 4328 Mar, Actinic keratosis L57.0 [facility] [id number] [place] [address] 80255- 2976 Jan, Bipolar II disorder F31.81 ; Post-traumatic stress disorder , chronic F43.12 and Memory change R41.3 [place] [address], [place] [address]- 9754 28 Jan, 2017 Bipolar affective disorder, currently manic, mild F31.11 [facility] [address], [place] [address]- 8040 13 Jan, 2017 Bipolar affective disorder, currently manic, mild F31.11 [facility] [id number] [place] [address] 61607- 0792 07 Jan, 2017 Bipolar II disorder F31.81 ; Post-traumatic stress disorder , chronic F43.12 and Memory change R41.3 [facility] [id number] [place] [address] 24930- 1219 Dec, Bipolar II disorder F31.81 ; Post-traumatic stress disorder , chronic F43.12 and Memory change R41.3 [facility] [id number] [place] [address] 66081- 4729 Dec, Bipolar affective disorder, currently manic, mild F31.11 [facility] [address], [place] [address]- 6669 Dec, Bipolar affective disorder, currently manic, mild F31.11 [facility] [address], [place] [address]- 7821 Dec, Post-traumatic stress disorder, chronic F43.12 [facility] [address], [place] [address]- 3695 Dec, Bipolar II disorder F31.81 ; Post-traumatic stress disorder , chronic F43.12 and Memory change R41.3 [facility] [id number], [place] [address]- 3358 Dec, Post-traumatic stress disorder, chronic F43.12 [facility] [id number], [place] [address]- 3770 Nov, [facility] [address], [place] [address]- 5858 Nov, Bipolar II disorder F31.81 ; Post-traumatic stress disorder , chronic F43.12 and Memory change R41.3 [facility] [address], [place] [address]- 6531 Nov, [facility] [id number] [place] [address] 91492- 7531 Nov, Post-traumatic stress disorder, chronic F43.12 and Bipolar II disorder F31.81 [facility] [id number] [place] [address] 45503- 2820 Nov, Actinic keratosis L57.0 [facility] [id number] [place] [address] 66844- 2723 Oct, Bipolar II disorder F31.81 ; Post-traumatic stress disorder , chronic F43.12 and Memory change R41.3 [place] [id number] [place] [address] 14507- 7721 Oct, Post-traumatic stress disorder, chronic F43.12 ; Bipolar II disorder F31.81 and Memory change R41.3 [place] [id number] [place] [address] 33001- 8383 Oct, Bipolar II disorder F31.81 ; Post-traumatic stress disorder , chronic F43.12 and Memory change R41.3 [place] [address], [place] [address]- 4336 Oct, Actinic keratosis L57.0 [facility] [id number] [place] [address] 37339- 1428 September, Bipolar II disorder F31.81 ; Post-traumatic stress disorder , chronic F43.12 and Memory change R41.3 [place] [id number] [place] [address] 97508- 3996 September, Bipolar II disorder F31.81 ; Post-traumatic stress disorder , chronic F43.12 and Memory change R41.3 [place] [id number] [place] [address] 62448- 6389 September, Post-traumatic stress disorder, chronic F43.12 ; Bipolar II disorder F31.81 and Memory change R41.3 [place] [id number] [place] [address]99 Jul, Bipolar II disorder F31.81 ; Post-traumatic stress disorder , chronic F43.12 and Memory change R41.3 [place] [id number] [place] [address] 3669 Jul, Bipolar II disorder F31.81 ; Post-traumatic stress disorder , chronic F43.12 and Memory change R41.3 [place] [id number] [place] 0798 Jul, Bipolar II disorder F31.81 ; Post-traumatic stress disorder , chronic F43.12 and Memory change R41.3 [place] [id number] [place] [address] 22894- 4411 Jul, Post-traumatic stress disorder, chronic F43.12 ; Bipolar II disorder F31.81 and Memory change R41.3 [place] [id number] [place] [address] 92589- 1639 Jul, Tear of medial meniscus of right knee, unspecified tear type , unspecified whether old or current tear, initial encounter S83.241A [place] [id number] [place] [address] 00795- 9756 Jul, Bipolar II disorder F31.81 ; Post-traumatic stress disorder , chronic F43.12 and Memory change R41.3 [place] [id number] [place] [address] 17599- 8971 Jul, Shortness of breath R06.02 ; Mixed hyperlipidemia E78.2 and Chronic fatigue R53.82 [place] [id number] [place] [address] 12942- 6723 Jul, Bipolar II disorder F31.81 ; Post-traumatic stress disorder , chronic F43.12 and Memory change R41.3 [facility] [address], [place] [address]- 3235 Jul, [facility] [id number] [place] [address] 06862- 6406 Jun, Bipolar II disorder F31.81 ; Post-traumatic stress disorder , chronic F43.12 and Memory change R41.3 [facility] [id number] [place] [address] 96783- 0788 Jun, Post-traumatic stress disorder, chronic F43.12 ; Bipolar II disorder F31.81 and Memory change R41.3 [facility] [id number] [place] [address] 54637- 6447 Jun, Right anterior knee pain M25.561 ; Shortness of breath R06.02 and Bronchiolitis J21.9 [facility] [id number] [place] [address] 42004- 2529 Jun, [facility] [id number] [place] [address] 32577- 9847 Jun, Bipolar II disorder F31.81 ; Post-traumatic stress disorder , chronic F43.12 and Memory change R41.3 [facility] [address], [place] [address]- 3820 Jun, [facility] [id number] [place] [address] 45520- 6530 Jun, Bipolar II disorder F31.81 ; Post-traumatic stress disorder , chronic F43.12 and Memory change R41.3 [facility] [address], [place] [address]- 9496 May, [facility] [id number] [place] [address] 77582- 7976 May, [facility] [address], [place] [address]- 6658 May, [facility] [id number] [place] [address] 45788- 0238 May, Right anterior knee pain M25.561 ; Cough R05 ; Skin lesion of right arm L98.9 and Lesion of skin of face L98.9 [place] [id number] [place] [address] 36944- 8538 May, [place] [id number] [place] [address] 98812- 5856 May, Post-traumatic stress disorder, chronic F43.12 ; Memory change R41.3 and Bipolar I disorder, most recent episode manic F31.10 [place] [id number] [place] [address] 03455- 6406 May, [place] [id number] [place] [address] 50850- 4181 May, Right anterior knee pain M25.561 [place] [id number] [place] [address] 47804- 2965 May, [place] [id number] [place] [address] 28360- 5544 Apr, Bipolar II disorder F31.81 ; Post-traumatic stress disorder , chronic F43.12 and Memory change R41.3 [place] [address] [place] [address] 71446- 2533 Apr, Bipolar II disorder F31.81 ; Post-traumatic stress disorder , chronic F43.12 and Memory change R41.3 [place] [address] [place] [address] 87340- 3882 Apr, Post-traumatic stress disorder, chronic F43.12 ; Bipolar II disorder F31.81 and Memory change R41.3 [place] [id number] [place] [address] 62921- 0582 Mar, Bipolar II disorder F31.81 ; Post-traumatic stress disorder , chronic F43.12 and Memory change R41.3 [place] [id number] [place] [address] 43236- 7457 Mar, Memory change R41.3 ; Confusion R41.0 and Dizziness R42 [place] [id number] [place] [address] 87468- 3400 Mar, Memory change R41.3 ; Encounter for immunization Z23 and Fatigue, unspecified type R53.83 [facility] [id number] [place] [address] 65059- 2105 Mar, Bipolar II disorder F31.81 ; Post-traumatic stress disorder , chronic F43.12 and Memory change R41.3 [place] [id number] [place] [address] 14674- 2126 Jan, Bipolar II disorder F31.81 ; Post-traumatic stress disorder , chronic F43.12 and Memory change R41.3 [place] [id number] [place] [address] 08799- 8078 Jan, Post-traumatic stress disorder, chronic F43.12 ; Bipolar II disorder F31.81 ; Anxiety disorder, unspecified F41.9 and Memory change R41.3 [place] [id number] [place] [address] 16118- 1047 15 Feb, 2016 Bipolar II disorder F31.81 ; Post-traumatic stress disorder , chronic F43.12 and Memory change R41.3 [place] [id number] [place] [address] 45346- 4072 Dec, Bipolar II disorder F31.81 ; Post-traumatic stress disorder , chronic F43.12 and Memory change R41.3 [place] [id number] [place] [address] 64838- 4642 16 Jan, 2016 Memory loss R41.3 [place] [id number] [place] [address] 61836- 8816 Dec, Bipolar II disorder F31.81 ; Post-traumatic stress disorder , chronic F43.12 and Memory change R41.3 [place] [id number] [place] [address] 93665- 5158 Nov, Bipolar II disorder F31.81 and Post-traumatic stress disorder, chronic F43.12 [facility] [id number] [place] [address] 46528- 4598 Nov, Bipolar II disorder F31.81 ; Post-traumatic stress disorder , chronic F43.12 and Memory change R41.3 [facility] [id number] [place] [address] 70884- 9869 Oct, Post-traumatic stress disorder, chronic F43.12 and Bipolar disorder, unspecified F31.9 [facility] [id number] [place] [address] 17309- 6457 Oct, Bipolar II disorder F31.81 ; Post-traumatic stress disorder , chronic F43.12 and Memory change R41.3 [facility] [id number] [place] [address] [id number] Oct, Dental examination Z01.20 [facility] [id number] [place] [address] 35460- 9290 September, Bipolar II disorder F31.81 ; Post-traumatic stress disorder , chronic F43.12 and Memory change R41.3 [facility] [id number] [place] [address] 18870- 3317 Aug, Bipolar II disorder F31.81 and Post-traumatic stress disorder, chronic F43.12 [facility] [id number] [place] [address] 41113- 2598 Aug, Bipolar II disorder F31.81 and Post-traumatic stress disorder, chronic F43.12 [facility] [address], [place] [address]- 4539 Jul, Bipolar II disorder F31.81 and Post-traumatic stress disorder, chronic F43.12 [facility] [id number] [place] [address] 06255- 2302 Jul, [facility] [id number] [place] [address] 07378- 4598 15 Jul, 2015 [facility] [id number] [place] [address] 28882- 3483 Jul, Post-traumatic stress disorder, chronic F43.12 and Bipolar disorder, unspecified F31.9 [facility] [id number] [place] [address] 86660- 6251 Jun, Bipolar II disorder F31.81 and Post-traumatic stress disorder, chronic F43.12 [facility] [id number] [place] [address] 41236- 7749 Jun, Post-traumatic stress disorder, chronic F43.12 and Bipolar disorder, unspecified F31.9 [place] [id number] [place] [address] 698650- 9496 Jun, [place] [id number] [place] [address] 17929- 0306 Jun, Pharyngeal dysphagia R13.13 ; Hoarseness R49.0 and Cough R05 [facility] [id number] [place] [address] 39996- 0322 Jun, Post-traumatic stress disorder, chronic F43.12 and Bipolar disorder, unspecified F31.9 [facility] [id number] [place] [address] 50778- 0547 May, Cough R05 [place] [id number] [place] [address] 33866- 9422 May, Post-traumatic stress disorder, chronic F43.12 and Bipolar disorder, unspecified F31.9 [facility] [id number] [place] [address] 66793- 0791 May, Cough R05 [facility] [id number] [place] [address] 95631- 8476 May, [facility] [id number] [place] [address] [id number] May, Dental examination Z01.20 [facility] [id number] [place] [address] [phone] 15 May, 2015 Bipolar II disorder F31.81 and Post-traumatic stress disorder, chronic F43.12 [facility] [id number] [place] [address] [phone] May, [place] [id number] [place] [address] [phone] May, Bipolar II disorder F31.81 and Anxiety disorder, unspecified F41.9 [facility] [id number] [place] [address] [phone] 10 May, 2015 Memory change R41.3 and History of renal insufficiency syndrome Z87.448 [facility] [id number] [place] [address] [phone] May, Memory change R41.3 ; Dry mouth R68.2 and History of renal insufficiency syndrome Z87.448 [facility] [id number] [place] [address] [phone]- [phone] May, Bipolar II disorder F31.81 and Post-traumatic stress disorder, chronic F43.12 [place] [id number] [place] [address] 51301- 0272 Mar, Bipolar disorder, unspecified F31.9 and Generalized anxiety disorder F41.1 [place] [id number] [place] [address] 04286- 8986 Mar, Bipolar II disorder F31.81 [place] [id number] [place] [address] 89424- 7694 Mar, Encounter for immunization Z23 [place] [address] [address]- [address]167 Mar, [place] [id number] [place] [address] 43673- 2811 Mar, Bipolar II disorder F31.81 [place] [address] [address] [id number]- 4542 Mar, [facility] [id number] [address] Jan, Bipolar disorder, unspecified 296.80 and Anxiety disorder 300.00 [facility] [id number] [place] [address] 015418- 6236 Jan, [facility] [id number] [place] [address] 619337- 3674 Jan, Bipolar disorder, unspecified 296.80 and Anxiety disorder 300.00 [facility] [id number] [place] [address] 186104- 1451 Dec, Bipolar disorder, unspecified 296.80 and Anxiety disorder 300.00 [facility] [id number] [place] [address] [id number]- 7510 Dec, [facility] [id number] [place] [address] 753726- 2492 Dec, Bipolar disorder, unspecified 296.80 and Anxiety disorder 300.00 [facility] [id number] [place] [address] 655675- 3418 Nov, Bipolar disorder, unspecified 296.80 and Anxiety disorder 300.00 [facility] [id number] [place] [address] 34833- 4548 Oct, Bipolar disorder, unspecified 296.80 and Anxiety disorder 300.00 [facility] [id number] [place] [address] [id number]- 3659 Oct, Anxiety 300.00 and Bipolar disorder, unspecified 296.80 [facility] [id number] [place] [address] [id number]- 4032 September, Bipolar disorder, unspecified 296.80 and Anxiety disorder 300.00 [facility] [id number] [place] [address] [id number]- 6416 September, [facility] [id number] [place] [address] [id number]- 1421 Aug, Cough 786.2 [facility] [place] [facility] [address] [id number] [place] [address]- 7947 Aug, [facility] [place] [facility] [address] [id number] [place] [address]- 7616 Aug, [facility] [place] [facility] [address] [id number] [place] [address]- 2142 Jul, [facility] [place] [facility] [address] [id number] [place] [address]- 3088 Jul, [facility] [place] [facility] [address] [id number] [place] [address]- 9376 Jul, [facility] [place] [facility] [address] [id number] [place] [address]- 5784 Jul, [facility] [place] [facility] [address] [id number] [place] [address]- 2792 Jul, [facility] [place] [facility] [address] [id number] [place] [address]- 7230 Jul, [facility] [place] [facility] [address] [id number] [place] [address]- 1715 Jun, [facility] [place] [facility] [address] [id number] [place] [address]- 8252 Jun, [facility] [place] [facility] [address] [id number] [place] [address]- 3438 Jun, [facility] [place] [facility] [address] [id number] [place] [address]- 4091 Jun, [facility] [place] [facility] [address] [id number] [place] [address]- 8268 May, [facility] [place] [facility] [address] [facility] [id number] [place] 2606 May, [facility] [place] [facility] [address] [facility] [id number] [place] [address]- 4446 May, [facility] [place] [facility] [address] [id number] [place] [address]- 9050 May, [facility] [place] [facility] [address] [id number] [place] [address]- 5912 Apr, [facility] [place] [facility] [address] [id number] [place] [address]- 5926 Apr, [facility] [place] [facility] [address] [id number] [place] [address]- 0894 Mar, [facility] [place] [facility] [address] [id number] [place] [address]- 1785 Mar, [facility] [place] [facility] [address] [id number] [place] [address]- 8638 Mar, [facility] [place] [facility] [address] [id number] [place] [address]- 7842 Mar, [facility] [place] [facility] [address] [id number] [place] [address]- 9401 Mar, [facility] [place] [facility] [address] [id number] [place] [address]- 0809 Mar, [facility] [place] [facility] [address] [id number] [place] [address]- 9493 Jan, [facility] [place] [facility] [address] [id number] [place] [address]- 2299 Jan, [facility] [place] [facility] [address] [id number] [place] [address]- 2540 05 Jan, 2013 [facility] [place] [facility] [address] [id number] [place] [address]- 6964 05 Jan, 2013 [facility] [place] [facility] [address] [id number] [place] [address]- 9914 Jan, [facility] [place] [facility] [address] [id number] [place] [address]- 6160 Jan, 2013 [facility] [place] [facility] [address] [id number] [place] [address]- 7098 Dec, [facility] [place] [facility] [address] [id number] [place] [address]- 2702 Dec, [facility] [place] [facility] [address] [id number] [place] [address]- 7273 Dec, [facility] [place] [facility] [address] [id number] [place] [address]- 5020 Dec, [facility] [place] [facility] [address] [id number] [place] [address]- 2517 Dec, [facility] [place] [facility] [address] [id number] [place] [address]- 3485 Dec, [facility] [place] [facility] [address] [id number] [place] [address]- 7277 Nov, [facility] [place] [facility] [address] [id number] [place] [address]- 5697 Nov, [facility] [place] [facility] [address] [id number] [place] [address]- 5379 Nov, [facility] [place] [facility] [address] [id number] [place] [address]- 6679 Nov, [facility] [place] [facility] [address] [id number] [place] [address]- 2654 Nov, [facility] [place] [facility] [address] [id number] [place] [address]- 8308 Nov, [facility] [place] [facility] [address] [id number] [place] [address]- 8437 Nov, [facility] [place] [facility] [address] [id number] [place] [address]- 0564 Nov, [facility] [place] [facility] [address] [id number] [place] [address]- 8201 Nov, [facility] [place] [facility] [address] [id number] [place] [address]- 0210 Nov, [facility] [place] [facility] [address] [id number] [place] [address]- 7933 September, [facility] [place] [facility] [address] [id number] [place] [address]- 3799 September, [facility] [place] [facility] [address] [id number] [place] [address]- 4737 September, [facility] [place] [facility] [address] [id number] [place] [address]- 6075 September, [facility] [place] [facility] [address] [id number] [place] [address]- 8055 September, [facility] [place] [facility] [address] [id number] [place] [address]- 7437 September, [facility] [place] [facility] [address] [id number] [place] [address]- 9986 September, [facility] [place] [facility] [address] [id number] [place] [address]- 7477 September, [facility] [place] [facility] [address] [id number] [place] [address]- 8820 Aug, [facility] [place] [facility] [address] [id number] [place] [address]- 1823 Aug, [facility] [place] [facility] [address] [id number] [place] [address]- 8790 Aug, [facility] [place] [facility] [address] [id number] [place] [address]- 6022 Aug, [facility] [place] [facility] [address] [id number] [place] [address]- 0944 Jul, [facility] [place] [facility] [address] [id number] [place] [address]- 4027 Jul, [facility] [place] [facility] [address] [id number] [place] [address]- 7366 Jul, [facility] [place] [facility] [address] [id number] [place] [address]- 0041 Jul, [facility] [place] [facility] [address] [id number] [place] [address]- 7773 18 Jul, 2013 [facility] [place] [facility] [address] [id number] [place] [address]- 1166 Jul, [facility] [place] [facility] [address] [id number] [place] [address]- 4686 Jul, [facility] [place] [facility] [address] [id number] [place] [address]- 8242 Jul, [facility] [place] [facility] [address] [id number] [place] [address]- 5138 Jul, [facility] [place] [facility] [address] [id number] [place] [address]- 4978 Jul, [facility] [place] [facility] [address] [facility] [id number] [place] [address]- 4730 Jul, [facility] [place] [facility] [address] [id number] [place] [address]- 1825 Jun, [facility] [place] [facility] [address] [id number] [place] [address]- 7062 Jun, [facility] [place] [facility] [address] [facility] [id number] [place] [address]- 0947 Jun, [facility] [place] [facility] [address] [facility] [id number] [place] [address]- 5018 Jun, [facility] [place] [facility] [address] [id number], [place] [address]- 9710 May, [facility] [place] [facility] [address] [id number] [place] [address]- 8464 May, [facility] [place] [facility] [address] [id number] [place] [address]- 7506 Apr, [facility] [place] [facility] [address] [id number], [place] [address]- 6748 Apr, [facility] [place] [facility] [address] [id number], [place] [address]- 3625 Apr, [facility] [place] [facility] [address] [id number] [place] [address]- 9926 Apr, [facility] [place] [facility] [address] [id number] [place] [address]- 3441 Apr, [facility] [place] [facility] [address] [id number] [place] [address]- 9639 Apr, [facility] [place] [facility] [address] [id number] [place] [address]- 0977 Apr, [facility] [place] [facility] [address] [id number] [place] [address]- 2421 Apr, [facility] [place] [facility] [address] [id number] [place] [address]- 1754 Apr, [facility] [place] [facility] [address] [facility] [id number] [place] [address]- 9365 Apr, [facility] [place] [facility] [address] [id number] [place] [address]- 3554 Apr, [facility] [place] [facility] [address] [id number] [place] [address]- 5165 Apr, [facility] [place] [facility] [address] [facility] [address] [id number] [place] [address]- 1913 Mar, [facility] [place] [facility] [address] [id number], [place] [address]- 1340 Mar, [facility] [place] [facility] [address] [id number], [place] [address]- 1045 Mar, [facility] [place] [facility] [address] [id number] [place] [address]- 0513 Dec, [facility] [place] [facility] [address] [id number] [place] [address]- 4155 Dec, [facility] [place] [facility] [address] [facility] [address] [id number] [place] [address]- 3480 Dec, [facility] [place] [facility] [address] [facility] [address] [id number] [place] [address]- 7430 Oct, [facility] [address] [facility] [address] [id number], [place] [address]- 5132 May, [facility] [address] [facility] [address] [id number], [place] [address]- 8806 May, [facility] [address] [facility] [address] [id number], [place] [address]- 0623 May, [facility] [address] [facility] [address] [id number], [place] [address]- 1289 Dec, IMMUNIZATIONS No Known Immunizations SOCIAL HISTORY Never Assessed REASON FOR VISIT Refill request PLAN OF CARE VITAL SIGNS MEDICATIONS Medication Instructions Dosage Frequency Start Date End Date Duration Status Trazodone HCl 50 MG Orally at night as needed for sleep 0.5-1 tablet Jun, 30 day(s) Active RESULTS No Results [...] Gall Bladder Surgical History Tubalization Hospitalization History [facility] 12/2014 Hospitalization History Obstructive Airway Disease, Mood disorder, cough-[facility] 07/02/15 Hospitalization History Bronchitis- [facility] 06/2016
--- OUTSIDE RECORDS SUMMARY | 2018-02-03 09:06 | XMS REPORT ---
Author Author MACEYDREW [facility] Address [address] [place] [address] Care Team Providers Care Aco Coordinator Name Role Phone LUCILADREW AJ Unavailable PROBLEMS Type Condition ICD9-CM Code ICI17-WR Code Onset Dates Condition Status SNOMED Code Problem Mixed hyperlipidemia E78.2 Active 636175513 Problem Bipolar affective disorder, currently manic, mild F31.11 Active 067472417 Problem Chronic fatigue R53.82 Active 10285007 Problem COPD exacerbation J44.1 Active 396121923 Problem Other chronic pain G89.29 Active 64958698 Problem Chronic obstructive pulmonary disease, unspecified COPD type J44.9 Active 47929008 Problem Slow transit constipation K59.01 Active 75025713 Problem Bipolar disorder, in partial remission, most recent episode mixed F31.77 Active 59464432 Problem Bipolar disorder, current episode mixed, mild F31.61 Active 631870967 Problem Bipolar II disorder F31.81 Active 14023078 Problem History of renal insufficiency syndrome Z87.448 Active 652187619 Problem Pharyngeal dysphagia R13.13 Active 10222476754305 Problem Post-traumatic stress disorder, chronic F43.12 Active 75001211 Problem Confusion R41.0 Active 345410044 Problem Memory change R41.3 Active 307423807 Problem Dizziness R42 Active 033198887 ALLERGIES No Information ENCOUNTERS Encounter Location Date Diagnosis [facility] [address] [id number] [address] Nov, [facility] [id number] [place] [address] 54120- 5879 Nov, [facility] [address] [address] Oct, [facility] [id number] [place] [address] 47566- 4883 Oct, [facility] [address] [place] [address] 90188- 0832 Oct, Bipolar II disorder F31.81 and Post-traumatic stress disorder, chronic F43.12 [facility] [id number] [place] [address] 31404 -8337 Oct, [facility] [facility] [address] [address]67- 8906 Oct, [facility] [id number] [place] [address] 30311- 8412 September, Bipolar II disorder F31.81 and Post-traumatic stress disorder, chronic F43.12 [facility] [place] [id number] [place] [address] 13424- 5077 September, Bipolar disorder, in partial remission, most recent episode mixed F31.77 [facility] [place] [id number] [place] [address] 06997- 8437 September, COPD exacerbation J44.1 and Elevated blood pressure reading R03.0 [facility] [place] [id number] [place] [address] 35697- 7997 September, [facility] [id number] [place] [address] 21429- 8485 September, Pain in left ankle and joints of left foot M25.572 ; Dermatitis L30.9 and Other chronic pain G89.29 [facility] [id number] [place] [address] 28791- 8274 Aug, Right elbow pain M25.521 and Elevated blood pressure reading R03.0 [place] [address] 37451- 0606 Aug, Bipolar disorder, current episode mixed, mild F31.61 and BMI 40.0-44.9, adult Z68.41 [place] [address] 27568- 1340 Aug, [facility] [address] [place] [address] 70837- 9553 Aug, Bipolar II disorder F31.81 and Post-traumatic stress disorder, chronic F43.12 [facility] [id number] [place] [address] 60550- 3301 Jul, Elevated blood pressure reading R03.0 [place] [address] 53731- 7209 Jul, Bipolar II disorder F31.81 and Post-traumatic stress disorder, chronic F43.12 [place] [address] 96805- 4777 Jul, Bipolar disorder, current episode mixed, mild F31.61 [facility] [id number] [place] [address] 10972 -0768 Jul, Right foot pain M79.671 ; Allergic contact dermatitis, unspecified trigger L23.9 ; Contusion of right foot, initial encounter S90.31XA and BMI 40.0-44.9, adult Z68.41 [facility] [address] 17105 -[address]99 Jul, 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 [facility] [place] [id number] [place] [address] 97788- 0497 Jul, [facility] [place] [id number] [place] [address] 56300- 1651 Jul, Bipolar disorder, current episode mixed, mild F31.61 [facility] [id number] [place] [address] 51984- 9398 Jul, Bipolar II disorder F31.81 ; Post-traumatic stress disorder , chronic F43.12 and Memory change R41.3 [facility] [place] [id number] [place] [address] 40360- 0499 14 Jul, 2017 Elevated blood pressure reading R03.0 ; Chronic obstructive pulmonary disease, unspecified COPD type J44.9 ; Long-term use of high-risk medication Z79.899 and Cognitive decline R41.89 [facility] [id number] [place] [address] 60275- 5455 06 Jul, 2017 Elevated blood pressure reading R03.0 [facility] [place] [id number] [place] [address] 15883- 2618 05 Jul, 2017 [place] [address] 903944- 1953 Jul, Bipolar II disorder F31.81 ; Post-traumatic stress disorder , chronic F43.12 and Memory change R41.3 [facility] [place] [id number] [place] [address] 03277- 5107 Jun, [facility] [id number] [place] [address] 69472- 8319 Jun, Bipolar II disorder F31.81 ; Post-traumatic stress disorder , chronic F43.12 and Memory change R41.3 [facility] [place] [id number] [place] [address] 45705- 6538 10 Jun, 2017 Localized swelling, mass or lump of neck R22.1 ; Slow transit constipation K59.01 and Elevated blood pressure reading R03.0 [facility] [place] [id number] [place] [address] 44507- 0587 Jun, [facility] [id number] [place] [address] 35403- 1246 Jun, Bipolar affective disorder, currently manic, mild F31.11 [facility] [place] [id number] [place] [address] 26287 -8062 May, [facility] [place] [id number] [place] [address] 96318 -5770 14 May, 2017 [facility] [id number] [place] [address] 26825- 0823 May, Bipolar II disorder F31.81 ; Post-traumatic stress disorder , chronic F43.12 and Memory change R41.3 [facility] [address] [address] 7747 May, [facility] [id number] [place] [address] 15107- 2719 May, [facility] [id number] [place] [address] 20098- 1944 May, Bipolar affective disorder, currently manic, mild F31.11 [facility] [id number] [place] [address] 70614- 6213 May, [facility] [id number] [place] [address] 80016 -4844 May, Localized swelling, mass or lump of neck R22.1 and Localized swelling, mass and lump, head R22.0 [facility] [id number] [place] [address] 50280- 1340 Apr, [facility] [id number] [place] [address] 92436- 8780 Apr, Bipolar affective disorder, currently manic, mild F31.11 [facility] [id number] [place] [address] 78775- 2202 Apr, Bipolar II disorder F31.81 [facility] [id number] [place] [address] 00661- 5476 Apr, [facility] [id number] [place] [address] 22138- 9058 Apr, Bipolar affective disorder, currently manic, mild F31.11 [facility] [id number] [place] [address] 70326- 4073 Apr, Actinic keratosis L57.0 [facility] [address] [place] [address] 58976- 3780 Apr, Bipolar affective disorder, currently manic, mild F31.11 [facility] [id number] [place] [address] 75450- 7871 Apr, [facility] [id number] [place] [address] 79781 -0863 Mar, Allergic contact dermatitis, unspecified trigger L23.9 and Right leg pain M79.604 [facility] [id number] [place] [address] 25682- 1440 Mar, [facility] [id number] [place] [address] 717008- 9744 Mar, Bipolar II disorder F31.81 ; Post-traumatic stress disorder , chronic F43.12 and Memory change R41.3 [facility] [id number] [place] [address] 31232- 7028 Mar, Actinic keratosis L57.0 [facility] [id number] [place] [address] 00192- 0509 Jan, Bipolar II disorder F31.81 ; Post-traumatic stress disorder , chronic F43.12 and Memory change R41.3 [facility] [place] [id number] [place] [address] 02327- 9557 28 Jan, 2017 Bipolar affective disorder, currently manic, mild F31.11 [facility] [id number] [place] [address] 23132- 7704 13 Jan, 2017 Bipolar affective disorder, currently manic, mild F31.11 [facility] [address] [place] [address] 63222- 6579 07 Jan, 2017 Bipolar II disorder F31.81 ; Post-traumatic stress disorder , chronic F43.12 and Memory change R41.3 [place] [id number] [place] [address] 36420- 9872 Dec, Bipolar II disorder F31.81 ; Post-traumatic stress disorder , chronic F43.12 and Memory change R41.3 [facility] [id number] [place] [address] 61816- 0757 Dec, Bipolar affective disorder, currently manic, mild F31.11 [facility] [address] [address]- 8948 Dec, Bipolar affective disorder, currently manic, mild F31.11 [facility] [address] [address]- 9616 Dec, Post-traumatic stress disorder, chronic F43.12 [facility] [id number] [place] [address] 75540- 5324 Dec, Bipolar II disorder F31.81 ; Post-traumatic stress disorder , chronic F43.12 and Memory change R41.3 [place] [id number] [place] [address] 27773- 5509 Dec, Post-traumatic stress disorder, chronic F43.12 [facility] [id number] [place] [address] 29338- 0985 Nov, [place] [id number] [place] [address] 26338- 1614 Nov, Bipolar II disorder F31.81 ; Post-traumatic stress disorder , chronic F43.12 and Memory change R41.3 [place] [id number] [place] [address] 20466- 6614 Nov, [place] [id number] [place] [address] 51393- 6584 Nov, Post-traumatic stress disorder, chronic F43.12 and Bipolar II disorder F31.81 [facility] [id number] [place] [address] 04717- 4206 Nov, Actinic keratosis L57.0 [facility] [id number] [place] [address] 94151- 5376 Oct, Bipolar II disorder F31.81 ; Post-traumatic stress disorder , chronic F43.12 and Memory change R41.3 [facility] [id number] [place] [address] 36921- 8300 Oct, Post-traumatic stress disorder, chronic F43.12 ; Bipolar II disorder F31.81 and Memory change R41.3 [facility] [id number] [place] [address] 69494- 5817 Oct, Bipolar II disorder F31.81 ; Post-traumatic stress disorder , chronic F43.12 and Memory change R41.3 [facility] [id number] [place] [address] 63767- 4105 Oct, Actinic keratosis L57.0 [facility] [id number] [place] [address] 25838- 9994 September, Bipolar II disorder F31.81 ; Post-traumatic stress disorder , chronic F43.12 and Memory change R41.3 [place] [address] [place] [address] 67655- 3198 September, Bipolar II disorder F31.81 ; Post-traumatic stress disorder , chronic F43.12 and Memory change R41.3 [place] [address] [place] [address] 14783- 2607 September, Post-traumatic stress disorder, chronic F43.12 ; Bipolar II disorder F31.81 and Memory change R41.3 [place] [id number] [place] [address] 13272- 5242 Jul, Bipolar II disorder F31.81 ; Post-traumatic stress disorder , chronic F43.12 and Memory change R41.3 [facility] [address] [address]- 6157 Jul, Bipolar II disorder F31.81 ; Post-traumatic stress disorder , chronic F43.12 and Memory change R41.3 [place] [address] [place] [address] 61241- 3158 Jul, Bipolar II disorder F31.81 ; Post-traumatic stress disorder , chronic F43.12 and Memory change R41.3 [place] [address] [place] [address] 48537- 4761 Jul, Post-traumatic stress disorder, chronic F43.12 ; Bipolar II disorder F31.81 and Memory change R41.3 [place] [id number] [place] [address] 86661- 8359 Jul, Tear of medial meniscus of right knee, unspecified tear type , unspecified whether old or current tear, initial encounter S83.241A [address] 81763- 0054 Jul, Bipolar II disorder F31.81 ; Post-traumatic stress disorder , chronic F43.12 and Memory change R41.3 [place] [id number] [place] [address] 26006- 3536 Jul, Shortness of breath R06.02 ; Mixed hyperlipidemia E78.2 and Chronic fatigue R53.82 [place] [id number] [place] [address] 90793- 7711 Jul, Bipolar II disorder F31.81 ; Post-traumatic stress disorder , chronic F43.12 and Memory change R41.3 [place] [id number] [place] [address] 17639- 9642 Jul, [place] [id number] [place] [address] 86604- 7468 Jun, Bipolar II disorder F31.81 ; Post-traumatic stress disorder , chronic F43.12 and Memory change R41.3 [place] [id number] [place] [address] 19248- 0054 Jun, Post-traumatic stress disorder, chronic F43.12 ; Bipolar II disorder F31.81 and Memory change R41.3 [place] [id number] [place] [address] 86130- 0336 Jun, Right anterior knee pain M25.561 ; Shortness of breath R06.02 and Bronchiolitis J21.[address] 12845- 4744 Jun, [facility] [address] [place] [address] 54345- 8602 Jun, Bipolar II disorder F31.81 ; Post-traumatic stress disorder , chronic F43.12 and Memory change R41.3 [facility] [id number] [place] [address] 99331- 0481 Jun, [facility] [id number] [place] [address] 46814- 9719 Jun, Bipolar II disorder F31.81 ; Post-traumatic stress disorder , chronic F43.12 and Memory change R41.3 [facility] [id number] [place] [address] 40249- 0648 May, [facility] [id number] [place] [address] 39309- 9274 May, [facility] [id number] [place] [address] 11951- 4173 May, [facility] [id number] [place] [address] 77141- 8045 May, Right anterior knee pain M25.561 ; Cough R05 ; Skin lesion of right arm L98.9 and Lesion of skin of face L98.9 [facility] [id number] [place] [address] 71043- 4924 May, [facility] [id number] [place] [address] 11774- 4218 May, Post-traumatic stress disorder, chronic F43.12 ; Memory change R41.3 and Bipolar I disorder, most recent episode manic F31.10 [facility] [id number] [place] [address] 09170- 3643 May, [facility] [id number] [place] [address] 88213- 1979 May, Right anterior knee pain M25.561 [facility] [id number] [address]- 6785 May, [facility] [id number] [place] [address]- 5222 Apr, Bipolar II disorder F31.81 ; Post-traumatic stress disorder , chronic F43.12 and Memory change R41.3 [facility] [id number] [place] [address] 72485- 1132 Apr, Bipolar II disorder F31.81 ; Post-traumatic stress disorder , chronic F43.12 and Memory change R41.3 [place] [id number] [place] [address] 83672- 0424 Apr, Post-traumatic stress disorder, chronic F43.12 ; Bipolar II disorder F31.81 and Memory change R41.3 [place] [id number] [place] [address] 34738- 2902 Mar, Bipolar II disorder F31.81 ; Post-traumatic stress disorder , chronic F43.12 and Memory change R41.3 [place] [id number] [place] [address] 85405- 6526 Mar, Memory change R41.3 ; Confusion R41.0 and Dizziness R42 [place] [id number] [place] [address] 80627- 0772 Mar, Memory change R41.3 ; Encounter for immunization Z23 and Fatigue, unspecified type R53.83 [place] [id number] [place] [address] 11513- 8182 Mar, Bipolar II disorder F31.81 ; Post-traumatic stress disorder , chronic F43.12 and Memory change R41.3 [place] [id number] [place] [address] 33927- 0521 Jan, Bipolar II disorder F31.81 ; Post-traumatic stress disorder , chronic F43.12 and Memory change R41.3 [place] [id number] [place] [address] 07040- 0579 Jan, Post-traumatic stress disorder, chronic F43.12 ; Bipolar II disorder F31.81 ; Anxiety disorder, unspecified F41.9 and Memory change R41.3 [facility] [id number] [place] [address] 33496- 4445 15 Feb, 2016 Bipolar II disorder F31.81 ; Post-traumatic stress disorder , chronic F43.12 and Memory change R41.3 [facility] [id number] [place] [address] 50047- 0841 Dec, Bipolar II disorder F31.81 ; Post-traumatic stress disorder , chronic F43.12 and Memory change R41.3 [facility] [id number] [place] [address] 97694- 8748 Dec, Memory loss R41.3 [facility] [id number] [place] [address] 38580- 5114 Dec, Bipolar II disorder F31.81 ; Post-traumatic stress disorder , chronic F43.12 and Memory change R41.3 [facility] [address] [place] [address] 35790- 5316 Nov, Bipolar II disorder F31.81 and Post-traumatic stress disorder, chronic F43.12 [facility] [address] [place] [address] 76801- 8675 Nov, Bipolar II disorder F31.81 ; Post-traumatic stress disorder , chronic F43.12 and Memory change R41.3 [facility] [id number] [place] [address] 58734- 2004 Oct, Post-traumatic stress disorder, chronic F43.12 and Bipolar disorder, unspecified F31.9 [facility] [id number] [place] [address] 23552- 6536 Oct, Bipolar II disorder F31.81 ; Post-traumatic stress disorder , chronic F43.12 and Memory change R41.3 [facility] [address] [place] [address] [id number] Oct, Dental examination Z01.20 [facility] [address] [address]- 1745 September, Bipolar II disorder F31.81 ; Post-traumatic stress disorder , chronic F43.12 and Memory change R41.3 [facility] [id number] [place] [address] 75834- 3106 Aug, Bipolar II disorder F31.81 and Post-traumatic stress disorder, chronic F43.12 [facility] [id number] [place] [address] 55943- 5342 Aug, Bipolar II disorder F31.81 and Post-traumatic stress disorder, chronic F43.12 [place] [id number] [place] [address] 72731- 4576 Jul, Bipolar II disorder F31.81 and Post-traumatic stress disorder, chronic F43.12 [facility] [id number] [place] [address] 53553- 0546 Jul, [facility] [id number] [place] [address] 57991- 8006 Jul, [facility] [id number] [place] [address] 54702- 2679 Jul, Post-traumatic stress disorder, chronic F43.12 and Bipolar disorder, unspecified F31.9 [facility] [id number] [place] [address] 63143- 6739 Jun, Bipolar II disorder F31.81 and Post-traumatic stress disorder, chronic F43.12 [facility] [id number] [place] [address] 37890 2546 Jun, Post-traumatic stress disorder, chronic F43.12 and Bipolar disorder, unspecified F31.9 [facility] [address] [address]- 4816 Jun, [facility] [id number] [place] [address] 94589- 9873 Jun, Pharyngeal dysphagia R13.13 ; Hoarseness R49.0 and Cough R05 [facility] [address] 81590- 0035 Jun, Post-traumatic stress disorder, chronic F43.12 and Bipolar disorder, unspecified F31.9 [facility] [id number] [place] [address] 74716- 6249 May, Cough R05 [facility] [address] [place] 145205- 0865 May, Post-traumatic stress disorder, chronic F43.12 and Bipolar disorder, unspecified F31.9 [place] [address] 92051- 1345 May, Cough R05 [place] [address] [address] May, [facility] [address] [id number] May, Dental examination Z01.20 [place] [address] [address]- [address] 15 May, 2015 Bipolar II disorder F31.81 and Post-traumatic stress disorder, chronic F43.12 [facility] [id number] [place] [address]- [address] 14 May, 2015 [place] [address] [address] 14 May, 2015 Bipolar II disorder F31.81 and Anxiety disorder, unspecified F41.9 [facility] [address] [address]- [address] 10 May, 2015 Memory change R41.3 and History of renal insufficiency syndrome Z87.448 [facility] [id number] [place] [address]- [address] 03 May, 2015 Memory change R41.3 ; Dry mouth R68.2 and History of renal insufficiency syndrome Z87.448 [facility] [id number] [place] [address]- [address] May, Bipolar II disorder F31.81 and Post-traumatic stress disorder, chronic F43.12 [facility] [facility] [id number] [place] [address] 62571- 1560 Mar, Bipolar disorder, unspecified F31.9 and Generalized anxiety disorder F41.1 [facility] [id number] [place] [address] 86195- 5209 Mar, Bipolar II disorder F31.81 [facility] [id number] [place] [address] 13010- 6481 Mar, Encounter for immunization Z23 [facility] [id number] [place] [address] 84869- 9320 Mar, [facility] [id number] [place] [address] 42610- 4053 Mar, Bipolar II disorder F31.81 [facility] [id number] [place] [address] 59338- 7612 Mar, [facility] [id number] [place] [address] 12569- 9547 Jan, Bipolar disorder, unspecified 296.80 and Anxiety disorder 300.00 [facility] [id number] [place] [address] 60241- 8329 Jan, [facility] [id number] [place] [address] 00293- 9338 Jan, Bipolar disorder, unspecified 296.80 and Anxiety disorder 300.00 [facility] [id number] [place] [address] 32944- 8539 Dec, Bipolar disorder, unspecified 296.80 and Anxiety disorder 300.00 [facility] [id number] [place] [address] 39491- 8659 Dec, [facility] [id number] [place] [address] 45822- 2486 Dec, Bipolar disorder, unspecified 296.80 and Anxiety disorder 300.00 [facility] [id number] [place] [address] 60152- 7586 Nov, Bipolar disorder, unspecified 296.80 and Anxiety disorder 300.00 [facility] [id number] [place] [address] 02829- 7076 Oct, Bipolar disorder, unspecified 296.80 and Anxiety disorder 300.00 [facility] [id number] [place] [address] 56667- 6796 Oct, Anxiety 300.00 and Bipolar disorder, unspecified 296.80 [facility] [id number] [place] [address] 81476- 9686 September, Bipolar disorder, unspecified 296.80 and Anxiety disorder 300.00 [facility] [id number] [place] [address] 90388- 2086 September, [facility] [id number] [place] [address] 92155- 8062 Aug, Cough 786.2 [facility] [id number] [place] [address] 803369- 3889 Aug, [facility] [id number] [place] 4995 Aug, [facility] [id number] [address] 6706 Jul, [facility] [id number] [place] [address]- 8216 Jul, [facility] [id number] [place] [address] 02089- 3886 Jul, [facility] [id number] [place] [address]- 2546 Jul, [facility] [id number] [place] [address] 65174- 1181 Jul, [facility] [place] [facility] [address] [id number] [place] [address]- 4867 Jul, [facility] [place] [facility] [address] [id number] [place] [address]- 6203 Jun, [facility] [place] [facility] [address] [id number] [place] [address]- 1512 Jun, [facility] [place] [facility] [address] [id number] [place] [address]- 6281 Jun, [facility] [place] [facility] [address] [id number] [place] [address]- 3293 Jun, [facility] [place] [facility] [address] [id number] [place] [address]- 8868 May, [facility] [place] [facility] [address] [id number] [place] [address]- 8856 May, [facility] [place] [facility] [address] [id number] [place] [address]- 3720 May, [facility] [place] [facility] [address] [id number] [place] [address]- 4659 May, [facility] [place] [facility] [address] [id number] [place] [address]- 5588 Apr, [facility] [place] [facility] [address] [id number] [place] [address]- 7650 Apr, [facility] [place] [facility] [address] [id number] [place] [address]- 4983 Mar, [facility] [place] [facility] [address] [id number] [place] [address]- 3839 Mar, [facility] [place] [facility] [address] [id number] [place] [address]- 3219 Mar, [facility] [place] [facility] [address] [id number] [place] [address]- 1965 Mar, [facility] [place] [facility] [address] [id number] [place] [address]- 8792 Mar, [facility] [place] [facility] [address] [id number] [place] [address]- 0322 Mar, [facility] [place] [facility] [address] [id number] [place] [address]- 3768 Jan, 2013 [facility] [place] [facility] [address] [id number] [place] [address]- 3996 Jan, 2013 [facility] [place] [facility] [address] [id number] [place] [address]- 6445 Jan, 2013 [facility] [place] [facility] [address] [id number] [place] [address]- 9984 Jan, 2013 [facility] [place] [facility] [address] [id number] [place] [address]- 8636 Jan, 2013 [facility] [place] [facility] [address] [id number] [place] [address]- 0924 Jan, 2013 [facility] [place] [facility] [address] [id number] [place] [address]- 5292 Dec, [facility] [place] [facility] [address] [id number] [place] [address]- 8655 Dec, [facility] [place] [facility] [address] [id number] [place] [address]- 6683 Dec, [facility] [place] [facility] [address] [id number] [place] [address]- 0105 Dec, [facility] [place] [facility] [address] [id number] [place] [address]- 5989 Dec, [facility] [place] [facility] [address] [id number] [place] [address]- 4580 Dec, [facility] [place] [facility] [address] [id number] [place] [address]- 1094 Nov, [facility] [place] [facility] [address] [id number] [place] [address]- 2577 Nov, [facility] [place] [facility] [address] [id number] [place] [address]- 7380 Nov, 2013 [facility] [place] [facility] [address] [id number] [place] [address]- 8706 Nov, [facility] [place] [facility] [address] [id number] [place] [address]- 3886 Nov, 2013 [facility] [place] [facility] [address] [id number] [place] [address]- 2532 Nov, [facility] [place] [facility] [address] [id number] [place] [address]- 6608 Nov, [facility] [place] [facility] [address] [id number] [place] [address]- 2701 Nov, [facility] [place] [facility] [address] [id number] [place] [address]- 0140 Nov, [facility] [place] [facility] [address] [id number] [place] [address]- 4380 Nov, [facility] [place] [facility] [address] [id number] [place] [address]- 8664 September, [facility] [place] [facility] [address] [id number] [place] [address]- 8908 September, [facility] [place] [facility] [address] [id number] [place] [address]- 4276 September, [facility] [place] [facility] [address] [id number] [place] [address]- 2226 September, [facility] [place] [facility] [address] [id number] [place] [address]- 5260 September, [facility] [place] [facility] [address] [id number] [place] [address]- 8774 September, [facility] [place] [facility] [address] [id number] [place] [address]- 9123 September, [facility] [place] [facility] [address] [id number] [place] [address]- 3788 September, [facility] [place] [facility] [address] [id number] [place] [address]- 0330 Aug, [facility] [place] [facility] [address] [id number] [place] [address]- 9388 Aug, [facility] [place] [facility] [address] [id number] [place] [address]- 7497 Aug, [facility] [place] [facility] [address] [id number] [place] [address]- 4354 Aug, [facility] [place] [facility] [address] [id number] [place] [address]- 9430 Jul, [facility] [place] [facility] [address] [id number] [place] [address]- 1379 Jul, [facility] [place] [facility] [address] [id number] [place] [address]- 6946 Jul, [facility] [place] [facility] [address] [id number] [place] [address]- 7831 Jul, [facility] [place] [facility] [address] [id number] [place] [address]- 2067 Jul, [facility] [place] [facility] [address] [id number] [place] [address]- 5272 Jul, [facility] [place] [facility] [address] [id number] [place] [address]- 9916 Jul, [facility] [place] [facility] [address] [id number] [place] [address]- 0193 Jul, [facility] [place] [facility] [address] [id number] [place] [address]- 1617 Jul, [facility] [place] [facility] [address] [id number] [place] [address]- 9225 Jul, [facility] [place] [facility] [address] [id number] [place] [address]- 6855 Jul, [facility] [place] [facility] [address] [id number] [place] [address]- 3952 Jun, [facility] [place] [facility] [address] [id number] [place] [address]- 9399 Jun, [facility] [place] [facility] [address] [id number] [place] [address]- 0189 Jun, [facility] [place] [facility] [address] [id number] [place] [address]- 9568 Jun, [facility] [place] [facility] [address] [id number] [place] [address]- 9554 May, [facility] [place] [facility] [address] [id number] [place] [address]- 5985 May, [facility] [place] [facility] [address] [id number] [place] [address]- 0230 Apr, [facility] [place] [facility] [address] [id number] [place] [address]- 4004 Apr, [facility] [place] [facility] [address] [id number] [place] [address]- 8257 Apr, [facility] [place] [facility] [address] [id number] [place] [address]- 2118 Apr, [facility] [place] [facility] [address] [id number] [place] [address]- 9713 Apr, [facility] [place] [facility] [address] [id number] [place] [address]- 3792 Apr, [facility] [place] [facility] [address] [id number] [place] [address]- 0202 Apr, [facility] [place] [facility] [address] [id number] [place] [address]- 9476 Apr, [facility] [place] [facility] [address] [id number] [place] [address]- 0035 Apr, [facility] [place] [facility] [address] [id number] [place] [address]- 3716 Apr, [facility] [id number] 1347 Apr, [facility] [id number] [address]- 5706 Apr, [facility] [id number] [address]- 8450 Mar, [facility] [address] [id number] [place] 7254 Mar, [facility] [id number] [address]- 8202 Mar, [facility] [id number] [place] 5624 Dec, [facility] [id number] [address]- 0745 Dec, [facility] [id number] [address]- 3975 Dec, [facility] [id number] [address]- 9812 Oct, [facility] [id number] [address]- 9843 May, [facility] [id number] [address]- 8391 May, [facility] [id number] [address]- 7593 May, [facility] [id number] [address]- 8448 Dec, IMMUNIZATIONS No Known Immunizations SOCIAL HISTORY [...] History Tubalization Hospitalization History [facility] 12/2014 Hospitalization History Obstructive Airway Disease, Mood disorder, cough-[facility] 07/02/15 Hospitalization History Bronchitis- [facility] 06/2016
[2018-02-03 09:08] VITALS: BP 113/84
--- OUTSIDE RECORDS SUMMARY | 2018-02-03 09:08 | XMS REPORT ---
Author Author MACEYDREW [facility] [address] Address [address] [place] [address] Care Team Providers Care Spotter Name Role Phone LUCILADREW AJ Unavailable PROBLEMS Type Condition ICD9-CM Code [id number] Code Onset Dates Condition Status SNOMED Code Problem Mixed hyperlipidemia E78.2 Active 822081965 Problem Bipolar affective disorder, currently manic, mild F31.11 Active 999351887 Problem Chronic fatigue R53.82 Active 91264170 Problem COPD exacerbation J44.1 Active 876833047 Problem Other chronic pain G89.29 Active 81079118 Problem Chronic obstructive pulmonary disease, unspecified COPD type J44.9 Active 07647406 Problem Slow transit constipation K59.01 Active 78915112 Problem Bipolar disorder, in partial remission, most recent episode mixed F31.77 Active 96536168 Problem Bipolar disorder, current episode mixed, mild F31.61 Active 896980249 Problem Bipolar II disorder F31.81 Active 45542125 Problem History of renal insufficiency syndrome Z87.448 Active 571753065 Problem Pharyngeal dysphagia R13.13 Active [id number] Problem Post-traumatic stress disorder, chronic F43.12 Active 99130975 Problem Confusion R41.0 Active 590642515 Problem Memory change R41.3 Active 408079872 Problem Dizziness R42 Active [id number] ALLERGIES No Information ENCOUNTERS Encounter Location Date Diagnosis [facility] [address] [facility] [id number] [address] Nov, [facility] [address] [address] Oct, [facility] [address] [address] Oct, [facility] [address] [place] [id number] [place] [address] 04485- 9843 Oct, [facility] [id number] [place] [address] 16900- 4838 Oct, [facility] [id number] [place] [address] 29838 -8086 Oct, [facility] [id number] [place] [address] 37455- 8146 Oct, [facility] [id number] [place] [address] 14119- 8441 September, Bipolar II disorder F31.81 and Post-traumatic stress disorder, chronic F43.12 [place] [address] [address]- [address] September, Bipolar disorder, in partial remission, most recent episode mixed F31.77 [place] [address] [id number] [place] [address] 58639- 5724 September, COPD exacerbation J44.1 and Elevated blood pressure reading R03.0 [place] [address] [id number] [place] [address] 87385- 8560 September, [place] [id number] [place] [address] 95236- 2460 September, Pain in left ankle and joints of left foot M25.572 ; Dermatitis L30.9 and Other chronic pain G89.29 [place] [address] [id number] [place] [address] 70003- 0593 Aug, Right elbow pain M25.521 and Elevated blood pressure reading R03.0 [place] [address] [id number] [place] [address] 72601- 2163 Aug, Bipolar disorder, current episode mixed, mild F31.61 and BMI 40.0-44.9, adult Z68.41 [place] [address] [id number] [place] [address] 88556- 5881 Aug, [place] [address] [place] [address] 0[address] 05 Aug, 2017 Bipolar II disorder F31.81 and Post-traumatic stress disorder, chronic F43.12 [place] [address] [id number] [place] [address] 99788- 9845 26 Jul, 2017 Elevated blood pressure reading R03.0 [place] [address] 98358- 2940 Jul, Bipolar II disorder F31.81 and Post-traumatic stress disorder, chronic F43.12 [place] [address] 71185- 5557 Jul, Bipolar disorder, current episode mixed, mild F31.61 [facility] [place] [id number] [place] [address] 51779 -9216 Jul, Right foot pain M79.671 ; Allergic contact dermatitis, unspecified trigger L23.9 ; Contusion of right foot, initial encounter S90.31XA and BMI 40.0-44.9, adult Z68.41 [facility] [address] [address]36 -6849 Jul, 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 [place] [id number] [place] [address] 92512- 5164 22 Jul, 2017 [place] [id number] [place] [address] 54856- 9522 15 Jul, 2017 Bipolar disorder, current episode mixed, mild F31.61 [place] [id number] [place] [address] 07133- 0708 15 Jul, 2017 Bipolar II disorder F31.81 ; Post-traumatic stress disorder , chronic F43.12 and Memory change R41.3 [place] [id number] [place] [address] 45893- 3332 14 Jul, 2017 Elevated blood pressure reading R03.0 ; Chronic obstructive pulmonary disease, unspecified COPD type J44.9 ; Long-term use of high-risk medication Z79.899 and Cognitive decline R41.89 [facility] [id number] [place] [address] 03989- 6276 06 Jul, 2017 Elevated blood pressure reading R03.0 [facility] [id number] [place] [address] 79651- 9427 05 Jul, 2017 [facility] [id number] [place] [address] 54792- 3848 01 Jul, 2017 Bipolar II disorder F31.81 ; Post-traumatic stress disorder , chronic F43.12 and Memory change R41.3 [place] [address] [id number] [place] [address] 53055- 5305 Jun, [place] [address] [id number] [place] [address] 36317- 8351 Jun, Bipolar II disorder F31.81 ; Post-traumatic stress disorder , chronic F43.12 and Memory change R41.3 [place] [address] [id number] [place] [address] 90070- 2951 Jun, Localized swelling, mass or lump of neck R22.1 ; Slow transit constipation K59.01 and Elevated blood pressure reading R03.0 [place] [address] [id number] [place] [address] 53291- 9176 Jun, [place] [id number] [place] [address] 53390- 2142 Jun, Bipolar affective disorder, currently manic, mild F31.11 [facility] [id number] [place] [address] 94622 -2224 May, [facility] [id number] [place] [address] 29649 -2868 14 May, 2017 [facility] [id number] [place] [address] 07777- 0977 13 May, 2017 Bipolar II disorder F31.81 ; Post-traumatic stress disorder , chronic F43.12 and Memory change R41.3 [place] [address] [address] 7[address] May, [facility] [id number] [place] [address] 44035- 9539 May, [facility] [address] [address] 5088 May, Bipolar affective disorder, currently manic, mild F31.11 [facility] [id number] [place] [address] 73229- 2964 May, [facility] [address] [place] [address] 58278 -5733 May, Localized swelling, mass or lump of neck R22.1 and Localized swelling, mass and lump, head R22.0 [facility] [id number] [place] [address] 47680- 6196 Apr, [facility] [id number] [place] [address] 63067- 2215 Apr, Bipolar affective disorder, currently manic, mild F31.11 [facility] [id number] [place] [address] 74926- 3953 Apr, Bipolar II disorder F31.81 [facility] [address] [address]- 7621 Apr, [facility] [id number] [place] [address] 63312- 9534 Apr, Bipolar affective disorder, currently manic, mild F31.11 [facility] [address] [address]- 5588 Apr, Actinic keratosis L57.0 [facility] [id number] [place] [address] 63012- 9573 Apr, Bipolar affective disorder, currently manic, mild F31.11 [facility] [id number] [place] [address] 75947- 5577 Apr, [facility] [id number] [place] [address] 03351 -3595 Mar, Allergic contact dermatitis, unspecified trigger L23.9 and Right leg pain M79.604 [facility] [address] [address] 6712 Mar, [facility] [id number] [place] [address] 93103- 1384 Mar, Bipolar II disorder F31.81 ; Post-traumatic stress disorder , chronic F43.12 and Memory change R41.3 [facility] [id number] [place] [address] 80344- 2650 Mar, Actinic keratosis L57.0 [facility] [id number] [place] [address] 81369- 6925 28 Jan, 2017 Bipolar II disorder F31.81 ; Post-traumatic stress disorder , chronic F43.12 and Memory change R41.3 [facility] [id number] [place] [address] 57706- 8073 28 Jan, 2017 Bipolar affective disorder, currently manic, mild F31.11 [facility] [address] [place] [address] 38046- 6188 13 Jan, 2017 Bipolar affective disorder, currently manic, mild F31.11 [facility] [id number] [place] [address] 12429- 7910 07 Jan, 2017 Bipolar II disorder F31.81 ; Post-traumatic stress disorder , chronic F43.12 and Memory change R41.3 [facility] [address] [place] [address] 51612- 3620 Dec, Bipolar II disorder F31.81 ; Post-traumatic stress disorder , chronic F43.12 and Memory change R41.3 [facility] [id number] [place] [address] 22720- 1315 Dec, Bipolar affective disorder, currently manic, mild F31.11 [facility] [id number] [place] [address] 12979- 4620 Dec, Bipolar affective disorder, currently manic, mild F31.11 [facility] [id number] [place] [address] 00273- 1746 Dec, Post-traumatic stress disorder, chronic F43.12 [facility] [id number] [place] [address] 77904- 5706 Dec, Bipolar II disorder F31.81 ; Post-traumatic stress disorder , chronic F43.12 and Memory change R41.3 [facility] [id number] [place] [address] 939444- 3945 Dec, Post-traumatic stress disorder, chronic F43.12 [facility] [id number] [place] [address] 73651- 4594 Nov, [facility] [id number] [place] [address] 27163- 7432 Nov, Bipolar II disorder F31.81 ; Post-traumatic stress disorder , chronic F43.12 and Memory change R41.3 [facility] [id number] [place] [address] 27928- 0946 Nov, [facility] [id number] [place] [address] 81315- 7441 Nov, Post-traumatic stress disorder, chronic F43.12 and Bipolar II disorder F31.81 [facility] [id number] [place] [address] 23445- 0309 Nov, Actinic keratosis L57.0 [facility] [id number] [place] [address] 68607- 3019 Oct, Bipolar II disorder F31.81 ; Post-traumatic stress disorder , chronic F43.12 and Memory change R41.3 [facility] [id number] [place] [address] 32447- 9716 Oct, Post-traumatic stress disorder, chronic F43.12 ; Bipolar II disorder F31.81 and Memory change R41.3 [facility] [id number] [place] [address] 47505- 5314 Oct, Bipolar II disorder F31.81 ; Post-traumatic stress disorder , chronic F43.12 and Memory change R41.3 [facility] [address] [place] [address] 85743- 3298 Oct, Actinic keratosis L57.0 [facility] [id number] [place] [address] 16057- 7081 September, Bipolar II disorder F31.81 ; Post-traumatic stress disorder , chronic F43.12 and Memory change R41.3 [place] [address] [address] [id number] [place] [address] 20454- 6879 September, Bipolar II disorder F31.81 ; Post-traumatic stress disorder , chronic F43.12 and Memory change R41.3 [place] [address] [place] [address] 29165- 0179 September, Post-traumatic stress disorder, chronic F43.12 ; Bipolar II disorder F31.81 and Memory change R41.3 [place] [id number] [place] [address] 44341- 9313 Jul, Bipolar II disorder F31.81 ; Post-traumatic stress disorder , chronic F43.12 and Memory change R41.3 [place] [address] [place] [address] 21817- 6926 Jul, Bipolar II disorder F31.81 ; Post-traumatic stress disorder , chronic F43.12 and Memory change R41.3 [place] [address] [id number] [place] [address] 86695- 7038 Jul, Bipolar II disorder F31.81 ; Post-traumatic stress disorder , chronic F43.12 and Memory change R41.3 [place] [id number] [place] [address] 72862- 6735 Jul, Post-traumatic stress disorder, chronic F43.12 ; Bipolar II disorder F31.81 and Memory change R41.3 [place] [id number] [place] [address] 79859- 3417 Jul, Tear of medial meniscus of right knee, unspecified tear type , unspecified whether old or current tear, initial encounter S83.241A [place] [address] [id number] [place] [address] 67938- 659 Jul, Bipolar II disorder F31.81 ; Post-traumatic stress disorder , chronic F43.12 and Memory change R41.3 [place] [address] [address] [id number] [place] [address] 88471- 1558 Jul, Shortness of breath R06.02 ; Mixed hyperlipidemia E78.2 and Chronic fatigue R53.82 [place] [address] [id number] [place] [address] 99893- 9077 Jul, Bipolar II disorder F31.81 ; Post-traumatic stress disorder , chronic F43.12 and Memory change R41.3 [place] [address] [id number] [place] [address] 11549- 8456 Jul, [place] [address] [id number] [place] [address] 05763- 1541 Jun, Bipolar II disorder F31.81 ; Post-traumatic stress disorder , chronic F43.12 and Memory change R41.3 [place] [address] [address] [id number] [place] [address] 53623- 8787 Jun, Post-traumatic stress disorder, chronic F43.12 ; Bipolar II disorder F31.81 and Memory change R41.3 [place] [address] [id number] [place] [address] 09752- 5031 Jun, Right anterior knee pain M25.561 ; Shortness of breath R06.02 and Bronchiolitis J21.9 [place] [address] [id number] [place] [address] 58938- 8324 Jun, [place] [address] [address]- 5453 Jun, Bipolar II disorder F31.81 ; Post-traumatic stress disorder , chronic F43.12 and Memory change R41.3 [facility] [address] [address]- 0865 Jun, [facility] [id number] [place] [address] 78139- 3171 Jun, Bipolar II disorder F31.81 ; Post-traumatic stress disorder , chronic F43.12 and Memory change R41.3 [facility] [address] [place] [address] 06549- 6877 May, [facility] [id number] [place] [address] 93019- 3985 May, [facility] [id number] [place] [address] 89409- 9405 May, [facility] [id number] [place] [address] 48055- 1840 May, Right anterior knee pain M25.561 ; Cough R05 ; Skin lesion of right arm L98.9 and Lesion of skin of face L98.9 [facility] [address] [address]- 7132 May, [facility] [address] [address]- 4677 May, Post-traumatic stress disorder, chronic F43.12 ; Memory change R41.3 and Bipolar I disorder, most recent episode manic F31.10 [facility] [address] [place] [address] 49404- 3386 May, [facility] [id number] [place] [address] 81870- 9036 May, Right anterior knee pain M25.561 [facility] [address] [place] [address] 09414- 2965 May, [place] [address] [address]- 9227 Apr, Bipolar II disorder F31.81 ; Post-traumatic stress disorder , chronic F43.12 and Memory change R41.3 [place] [address] [address]- 7529 Apr, Bipolar II disorder F31.81 ; Post-traumatic stress disorder , chronic F43.12 and Memory change R41.3 [place] [id number] [place] [address] 18927- 3719 Apr, Post-traumatic stress disorder, chronic F43.12 ; Bipolar II disorder F31.81 and Memory change R41.3 [place] [id number] [place] [address] 41803- 8812 Mar, Bipolar II disorder F31.81 ; Post-traumatic stress disorder , chronic F43.12 and Memory change R41.3 [place] [id number] [place] [address] 65754- 4594 Mar, Memory change R41.3 ; Confusion R41.0 and Dizziness R42 [place] [id number] [place] [address] 39795- 4199 Mar, Encounter for immunization Z23 ; Memory change R41.3 and Fatigue, unspecified type R53.83 [place] [address] [place] [address] 03688- 1586 Mar, Bipolar II disorder F31.81 ; Post-traumatic stress disorder , chronic F43.12 and Memory change R41.3 [place] [address] [address]- 5853 Jan, Bipolar II disorder F31.81 ; Post-traumatic stress disorder , chronic F43.12 and Memory change R41.3 [place] [address] [place] [address] 01252- 8282 Jan, Post-traumatic stress disorder, chronic F43.12 ; Bipolar II disorder F31.81 ; Anxiety disorder, unspecified F41.9 and Memory change R41.3 [facility] [id number] [place] [address] 91930- 1796 Jan, Bipolar II disorder F31.81 ; Post-traumatic stress disorder , chronic F43.12 and Memory change R41.3 [facility] [id number] [place] [address] 62285- 5381 Dec, Bipolar II disorder F31.81 ; Post-traumatic stress disorder , chronic F43.12 and Memory change R41.3 [facility] [id number] [place] [address] 69043- 8565 Dec, Memory loss R41.3 [facility] [id number] [place] [address] 49892- 8590 Dec, Bipolar II disorder F31.81 ; Post-traumatic stress disorder , chronic F43.12 and Memory change R41.3 [facility] [id number] [place] [address] 27861- 3008 Nov, Bipolar II disorder F31.81 and Post-traumatic stress disorder, chronic F43.12 [facility] [id number] [place] [address] 88922- 2240 Nov, Bipolar II disorder F31.81 ; Post-traumatic stress disorder , chronic F43.12 and Memory change R41.3 [facility] [id number] [place] [address] 57909- 1357 Oct, Post-traumatic stress disorder, chronic F43.12 and Bipolar disorder, unspecified F31.9 [facility] [id number] [place] [address] 69269- 7022 Oct, Bipolar II disorder F31.81 ; Post-traumatic stress disorder , chronic F43.12 and Memory change R41.3 [facility] [address] [place] [address] [id number] Oct, Dental examination Z01.20 [facility] [id number] [place] [address]67 September, Bipolar II disorder F31.81 ; Post-traumatic stress disorder , chronic F43.12 and Memory change R41.3 [place] [id number] [place] [address]126 Aug, Bipolar II disorder F31.81 and Post-traumatic stress disorder, chronic F43.12 [place] [address] [place] [address]69518- 4121 Aug, Bipolar II disorder F31.81 and Post-traumatic stress disorder, chronic F43.12 [place] [address] 2848 Jul, Bipolar II disorder F31.81 and Post-traumatic stress disorder, chronic F43.12 [place] [id number] [place] [address] 03287- 1824 16 Jul, 2015 [place] [address] [place] 769512- 9862 Jul, [place] [id number] [place] [address]- 0541 Jul, Post-traumatic stress disorder, chronic F43.12 and Bipolar disorder, unspecified F31.9 [place] [id number] [place] [address]- 5266 Jun, Bipolar II disorder F31.81 and Post-traumatic stress disorder, chronic F43.12 [place] [id number] [place] [address]- 1152 Jun, Post-traumatic stress disorder, chronic F43.12 and Bipolar disorder, unspecified F31.9 [place] [address] [place] [address]- 0843 Jun, [place] [id number] [place] [address]- 3963 Jun, Pharyngeal dysphagia R13.13 ; Hoarseness R49.0 and Cough R05 [facility] [address] [place] [address] 31697- 6099 Jun, Post-traumatic stress disorder, chronic F43.12 and Bipolar disorder, unspecified F31.9 [facility] [id number] [place] [address] 46546- 3506 30 May, 2015 Cough R05 [facility] [id number] [place], [place] [address]- [address] 30 May, 2015 Post-traumatic stress disorder, chronic F43.12 and Bipolar disorder, unspecified F31.9 [facility] [id number] [place] [address] [id number]- [phone] May, Cough R05 [facility] [id number] [place] [address] [phone]- 2649 16 May, 2015 [facility] [address] [id number] 16 May, 2015 Dental examination Z01.20 [facility] [id number] [place] [address] 28540- 5422 15 May, 2015 Bipolar II disorder F31.81 and Post-traumatic stress disorder, chronic F43.12 [facility] [id number] [place] [address] 09218- 3578 14 May, 2015 [facility] [id number] [place] [address] 30033- 8088 14 May, 2015 Bipolar II disorder F31.81 and Anxiety disorder, unspecified F41.9 [facility] [id number] [place] [address] 78395- 1477 10 May, 2015 Memory change R41.3 and History of renal insufficiency syndrome Z87.448 [facility] [id number] [place] [address] 03513- 1652 03 May, 2015 Memory change R41.3 ; Dry mouth R68.2 and History of renal insufficiency syndrome Z87.448 [facility] [id number] [place] [id number] May, Bipolar II disorder F31.81 and Post-traumatic stress disorder, chronic F43.12 [facility] [id number] [place] [address] 43259- 0059 Mar, Bipolar disorder, unspecified F31.9 and Generalized anxiety disorder F41.1 [facility] [id number] [place] [address] 54428- 4394 Mar, Bipolar II disorder F31.81 [facility] [id number] [place] [address] 64920- 2525 Mar, Encounter for immunization Z23 [facility] [address] [address]22- 5574 Mar, [facility] [id number] [place] [address] 78705- 5394 Mar, Bipolar II disorder F31.81 [facility] [id number] [place] [address] 80926- 6255 Mar, [facility] [id number] [place] [address] 55640- 2553 Jan, Bipolar disorder, unspecified 296.80 and Anxiety disorder 300.00 [facility] [id number] [place] [address] 29546- 1958 Jan, [facility] [id number] [place] [address] 96501- 6799 Jan, Bipolar disorder, unspecified 296.80 and Anxiety disorder 300.00 [facility] [id number] [place] [address] 19593- 9585 Dec, Bipolar disorder, unspecified 296.80 and Anxiety disorder 300.00 [facility] [id number] [place] [address] 08136- 1990 Dec, [facility] [id number] [place] [address] 53687- 1292 Dec, Bipolar disorder, unspecified 296.80 and Anxiety disorder 300.00 [facility] [address] [address] 2981 Nov, Bipolar disorder, unspecified 296.80 and Anxiety disorder 300.00 [facility] [id number] [address] Oct, Bipolar disorder, unspecified 296.80 and Anxiety disorder 300.00 [facility] [id number] [place] [address] 019385- 1302 Oct, Anxiety 300.00 and Bipolar disorder, unspecified 296.80 [facility] [id number] [place] [address] 315229- 7950 September, Bipolar disorder, unspecified 296.80 and Anxiety disorder 300.00 [facility] [id number] [place] [address] 69377- 2674 September, [facility] [id number] [place] [address] 07434- 4236 Aug, Cough 786.2 [facility] [id number] [place] [address] 99556- 6103 Aug, [facility] [id number] [place] [address] 34444- 3514 Aug, [facility] [address] [address] 6068 Jul, [facility] [address] 77[address] Jul, [facility] [address] 8679 Jul, [facility] [id number] [place] [address] 714946- 4616 Jul, [facility] [address] [address]39 Jul, [facility] [id number] [place] [address], [place] [address]- 8070 13 Jul, 2014 [facility] [place] [facility] [address] [id number] [place] [address]- 0454 Jun, [facility] [place] [facility] [address] [id number] [place] [address]- 3535 Jun, [facility] [place] [facility] [address] [id number] [place] [address]- 9372 Jun, [facility] [place] [facility] [address] [id number] [place] [address]- 4224 Jun, [facility] [place] [facility] [address] [id number] [place] [address]- 6020 May, [facility] [place] [facility] [address] [id number] [place] [address]- 0240 May, [facility] [place] [facility] [address] [id number] [place] [address]- 9119 May, [facility] [place] [facility] [address] [id number] [place] [address]- 3583 May, [facility] [place] [facility] [address] [id number] [place] [address]- 5997 Apr, [facility] [place] [facility] [address] [facility] [id number] [place] [address]- 3217 Apr, [facility] [place] [facility] [address] [id number] [place] [address]- 6263 Mar, [facility] [place] [facility] [address] [id number] [place] [address]- 2860 Mar, [facility] [place] [facility] [address] [id number] [place] [address]- 4924 Mar, [facility] [place] [facility] [address] [id number] [place] [address]- 3925 Mar, [facility] [place] [facility] [address] [id number] [place] 4962 Mar, [facility] [place] [facility] [address] [id number] [place] [address]- 4884 Mar, [facility] [place] [facility] [address] [id number] [place] [address]- 1866 Jan, [facility] [place] [facility] [address] [id number] [place] [address]- 9550 Jan, 2013 [facility] [place] [facility] [address] [id number] [place] [address]- 7457 Jan, 2013 [facility] [place] [facility] [address] [id number] [place] [address]- 6134 Jan, 2013 [facility] [place] [facility] [address] [id number] [place] [address]- 6370 Jan, [facility] [place] [facility] [address] [id number] [place] [address]- 3379 Jan, [facility] [place] [facility] [address] [id number] [place] [address]- 4768 Dec, [facility] [place] [facility] [address] [id number] [place] [address]- 3014 Dec, [facility] [place] [facility] [address] [id number] [place] [address]- 2271 Dec, [facility] [place] [facility] [address] [id number] [place] [address]- 5526 Dec, [facility] [place] [facility] [address] [id number] [place] [address]- 8136 Dec, [facility] [place] [facility] [address] [id number] [place] [address]- 4708 Dec, [facility] [place] [facility] [address] [id number] [place] [address]- 0012 Nov, [facility] [place] [facility] [address] [id number] [place] [address]- 9956 Nov, [facility] [place] [facility] [address] [id number] [place] [address]- 3846 Nov, [facility] [place] [facility] [address] [id number] [place] [address] Nov, [facility] [place] [facility] [address] [id number] [place] [address]- 1445 Nov, [facility] [place] [facility] [address] [id number] [place] [address]- 3740 Nov, [facility] [place] [facility] [address] [id number] [place] [address]- 6875 Nov, [facility] [place] [facility] [address] [id number] [place] [address]- 4396 Nov, [facility] [place] [facility] [address] [id number] [place] [address]- 8857 Nov, [facility] [place] [facility] [address] [id number] [place] [address]- 4051 Nov, [facility] [place] [facility] [address] [id number] [place] [address]- 4087 September, [facility] [place] [facility] [address] [id number] [place] [address]- 7243 September, [facility] [place] [facility] [address] [id number] [place] [address]- 0743 September, [facility] [place] [facility] [address] [id number] [place] [address]- 9689 September, [facility] [place] [facility] [address] [id number] [place] [address]- 6849 September, [facility] [place] [facility] [address] [id number] [place] 3039 September, [facility] [place] [facility] [address] [id number] [place] [address]- 8602 September, [facility] [place] [facility] [address] [id number] [place] [address]- 8615 September, [facility] [place] [facility] [address] [id number] [place] [address]- 1031 Aug, [facility] [place] [facility] [address] [id number] [place] [address]- 3118 Aug, [facility] [place] [facility] [address] [id number] [place] [address]- 0065 Aug, [facility] [place] [facility] [address] [id number] [place] [address]- 2542 Aug, [facility] [place] [facility] [address] [id number] [place] [address]- 4705 Jul, [facility] [place] [facility] [address] [id number] [place] [address]- 4192 Jul, [facility] [place] [facility] [address] [facility] [id number] [place] [address]- 7672 Jul, [facility] [place] [facility] [address] [facility] [id number] [place] [address]- 4453 Jul, [facility] [place] [facility] [address] [facility] [id number] [place] [address]- 9923 18 Jul, 2013 [facility] [place] [facility] [address] [facility] [id number] [place] [address]- 1664 Jul, [facility] [place] [facility] [address] [facility] [id number] [place] [address]- 0208 17 Jul, 2013 [facility] [place] [facility] [address] [facility] [id number] [place] [address]- 1247 Jul, [facility] [place] [facility] [address] [facility] [id number] [place] [address]- 6241 Jul, [facility] [place] [facility] [address] [facility] [id number] [place] [address]- 0945 Jul, [facility] [place] [facility] [address] [facility] [id number] [place] [address]- 5452 06 Jul, 2013 [facility] [place] [facility] [address] [facility] [id number] [place] [address]- 4907 Jun, [facility] [place] [facility] [address] [id number] [place] [address]- 0237 Jun, [facility] [place] [facility] [address] [id number] [place] [address]- 8377 Jun, [facility] [place] [facility] [address] [id number] [place] [address]- 9816 Jun, [facility] [place] [facility] [address] [id number] [place] [address]- 5366 May, [facility] [place] [facility] [address] [id number] [place] [address]- 9063 May, [facility] [place] [facility] [address] [id number] [place] [address]- 2296 Apr, [facility] [place] [facility] [address] [id number] [place] [address]- 0327 Apr, [facility] [place] [facility] [address] [id number] [place] [address]- 8422 Apr, [facility] [place] [facility] [address] [id number] [place] [address]- 1095 Apr, [facility] [place] [facility] [address] [id number] [place] [address]- 1542 Apr, [facility] [place] [facility] [address] [id number] [address]- 9640 Apr, [facility] [place] [facility] [address] [id number] [address]- 3957 Apr, [facility] [place] [facility] [address] [id number] [place] [address]- 6308 Apr, [facility] [place] [facility] [address] [id number] [place] [address]- 7649 Apr, [facility] [place] [facility] [address] [id number] [place] [address]- 1457 Apr, [facility] [place] [facility] [address] [address]- 2546 Apr, [facility] [address] [address]- 1706 Apr, [facility] [address] [address]- 2546 Mar, [facility] [address] [address]- 6590 Mar, [facility] [address] [facility] [id number] [address]- 2546 Mar, [facility] [id number] [place] [address] 48254- 6191 Dec, [facility] [address] [address]- 5460 Dec, [facility] [address] [address]- 8670 Dec, [facility] [address] [address]- 7124 Oct, [facility] [address] [address]- 2584 May, [facility] [address] [address]- 9154 May, [facility] [id number] [address]- 9446 May, [facility] [id number] [address]- 1714 Dec, IMMUNIZATIONS No Known Immunizations SOCIAL HISTORY Never Assessed REASON FOR VISIT GAY franco/Martine ACEVEDO PLAN OF CARE Activity Details Follow Up 4 Weeks Reason: VITAL SIGNS Height 66 in 2017-05-06 Weight 226.7 lbs 2017-05-06 Heart Rate 78 bpm 2017-05-06 Respiratory Rate 20 2017-05-06 BMI 36.59 kg/m2 2017-05-06 Blood pressure systolic 138 mmHg 2017-05-06 Blood pressure diastolic 84 mmHg 2017-05-06 MEDICATIONS Medication Instructions Dosage Frequency Start Date End Date Duration Status Aspirin 81 MG Orally Once a day 1 tablet 24h Active Multivitamin Gummies Adult Active Loxapine Succinate 5 MG Orally at night 1 capsule Oct, Active Premarin 0.9 MG Orally Once a day 1 tablet 24h Active Fish Oil 1000 MG Orally Once a day 2 capsule 24h Active Linzess 145 MCG Orally Once a day 1 capsule 24h Active Nexium 40MG Orally Once a day TAKE 1 CAPSULE DAILY 24h 90 days Active Albuterol Sulfate 108 (90 Base) MCG/ACT Inhalation every 4-6 hrs 1 puff as needed May, Active Benztropine Mesylate 1 MG Orally twice a day 1 tablet 12h Active Xanax 0.5 MG Orally Twice a day 1 tablet 12h Active Vitamin [...] Once a day 1 Capsule 24h Active Abilify 30 MG Orally Once a day 1 tablet 24h Nov, 30 days Active Advair Diskus 100-50 MCG/DOSE Inhalation Twice a day 1 puff 12h Active Aristada 882 MG/3.2ML Intramuscular every month 3.2 ml Apr, 90 days Not-Taking Calcium 600 MG Orally Once a day 1 tablet with meals 24h 30 days Active RESULTS No Results PROCEDURES Procedure Date Ordered Result Body Site [facility] VISIT ESTABLISHED PATIENT May 06, 2017 INSTRUCTIONS MEDICATIONS ADMINISTERED No Known Medications [...] Gall Bladder Surgical History Tubalization Hospitalization History [facility] 12/2014 Hospitalization History Obstructive Airway Disease, Mood disorder, cough-[facility] 07/02/15 Hospitalization History Bronchitis- [facility] 06/2016
--- OUTSIDE RECORDS SUMMARY | 2018-02-03 09:09 | XMS REPORT ---
Author Author MARYSOL CANSECO [facility] Address [address] [place] [address] Care Team Providers [employer] Consultant Name Role Phone MARYSOL CANSECO Unavailable PROBLEMS Type Condition ICD9-CM Code UGL79-FY Code Onset Dates Condition Status SNOMED Code Problem Mixed hyperlipidemia E78.2 Active 534103731 Problem Bipolar affective disorder, currently manic, mild F31.11 Active 713049786 Problem Chronic fatigue R53.82 Active 32146487 Problem COPD exacerbation J44.1 Active 922165730 Problem Other chronic pain G89.29 Active 43820330 Problem Chronic obstructive pulmonary disease, unspecified COPD type J44.9 Active 71417125 Problem Slow transit constipation K59.01 Active 71042707 Problem Bipolar disorder, in partial remission, most recent episode mixed F31.77 Active 01263296 Problem Bipolar disorder, current episode mixed, mild F31.61 Active 922982032 Problem Bipolar II disorder F31.81 Active 56882707 Problem History of renal insufficiency syndrome Z87.448 Active 388532598 Problem Pharyngeal dysphagia R13.13 Active 22556568107359 Problem Post-traumatic stress disorder, chronic F43.12 Active 46345926 Problem Confusion R41.0 Active 106220746 Problem Memory change R41.3 Active 010269913 Problem Dizziness R42 Active 722722186 ALLERGIES No Information ENCOUNTERS Encounter Location Date Diagnosis [facility] [id number] [address] Nov, [facility] [id number] [place] [address] 49558- 5512 Oct, [facility] [address] [address] Oct, [facility] [address] [place] [address] 21457- 5547 Oct, [facility] [address] [place] [address] 17148- 5252 Oct, [facility] [id number] [place] [address] 06750 -7843 Oct, [facility] [id number] [place] [address] 58465- 4332 Oct, [place] [id number] [place] [address] 46356- 0449 September, Bipolar II disorder F31.81 and Post-traumatic stress disorder, chronic F43.12 [place] [id number] [place] [address] 55152- 5245 September, Bipolar disorder, in partial remission, most recent episode mixed F31.77 [place] [id number] [place] [address] 51738- 7717 September, COPD exacerbation J44.1 and Elevated blood pressure reading R03.0 [place] [id number] [place] [address] 33874- 6989 September, [place] [id number] [place] [address] 10425- 9304 September, Pain in left ankle and joints of left foot M25.572 ; Dermatitis L30.9 and Other chronic pain G89.29 [place] [id number] [place] [address] 76555- 2976 Aug, Right elbow pain M25.521 and Elevated blood pressure reading R03.0 [place] [id number] [place] [address] 97669- 5493 Aug, Bipolar disorder, current episode mixed, mild F31.61 and BMI 40.0-44.9, adult Z68.41 [place] [id number] [place] [address] 15901- 5452 Aug, [place] [address] [place] [address] 05 Aug, 2017 Bipolar II disorder F31.81 and Post-traumatic stress disorder, chronic F43.12 [place] [id number] [place] [address] 44398- 8316 26 Jul, 2017 Elevated blood pressure reading R03.0 [place] [address] 53460- 5575 Jul, Bipolar II disorder F31.81 and Post-traumatic stress disorder, chronic F43.12 [place] [address] 33527- 5410 Jul, Bipolar disorder, current episode mixed, mild F31.61 [facility] [id number] [place] [address] 43636 -0605 Jul, Right foot pain M79.671 ; Allergic contact dermatitis, unspecified trigger L23.9 ; Contusion of right foot, initial encounter S90.31XA and BMI 40.0-44.9, adult Z68.41 [facility] [place] 65101 -0783 Jul, 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 [place] [id number] [place] [address] 94840- 8632 22 Jul, 2017 [place] [id number] [place] [address] 26478- 2515 15 Jul, 2017 Bipolar disorder, current episode mixed, mild F31.61 [place] [id number] [place] [address] 33831- 1962 15 Jul, 2017 Bipolar II disorder F31.81 ; Post-traumatic stress disorder , chronic F43.12 and Memory change R41.3 [place] [id number] [place] [address] 70889- 9656 14 Jul, 2017 Elevated blood pressure reading R03.0 ; Chronic obstructive pulmonary disease, unspecified COPD type J44.9 ; Long-term use of high-risk medication Z79.899 and Cognitive decline R41.89 [facility] [address] [place] [address] 68252- 9692 06 Jul, 2017 Elevated blood pressure reading R03.0 [facility] [id number] [place] [address] 90679- 3583 05 Jul, 2017 [facility] [id number] [place] [address] 63005- 5386 01 Jul, 2017 Bipolar II disorder F31.81 ; Post-traumatic stress disorder , chronic F43.12 and Memory change R41.3 [place] [id number] [place] [address] 78050- 3357 Jun, [place] [id number] [place] [address] 77199- 7165 18 Jun, 2017 Bipolar II disorder F31.81 ; Post-traumatic stress disorder , chronic F43.12 and Memory change R41.3 [place] [id number] [place] [address] 84639- 1710 10 Jun, 2017 Localized swelling, mass or lump of neck R22.1 ; Slow transit constipation K59.01 and Elevated blood pressure reading R03.0 [place] [address] [place] [address] 98461- 4106 Jun, [place] [id number] [place] [address] 57155- 8133 Jun, Bipolar affective disorder, currently manic, mild F31.11 [facility] [address] [place] [address] 06342 -7349 May, [facility] [id number] [place] [address] 63464 -6974 14 May, 2017 [facility] [id number] [place] [address] 88887- 1964 13 May, 2017 Bipolar II disorder F31.81 ; Post-traumatic stress disorder , chronic F43.12 and Memory change R41.3 [facility] [address] [address] 8701 May, [facility] [id number] [place] [address] 57126- 5074 May, [facility] [address] [place] [address] 50489- 5360 May, Bipolar affective disorder, currently manic, mild F31.11 [facility] [id number] [place] [address] 77729- 6877 May, [facility] [address] [place] [address] 88415 -0880 May, Localized swelling, mass or lump of neck R22.1 and Localized swelling, mass and lump, head R22.0 [facility] [id number] [place] [address] 30267- 3942 Apr, [facility] [id number] [place] [address] 44319- 5619 Apr, Bipolar affective disorder, currently manic, mild F31.11 [facility] [id number] [place] [address] 50641- 3339 Apr, Bipolar II disorder F31.81 [facility] [address] [place] [address] 60313- 2892 Apr, [facility] [id number] [place] [address] 86468- 8025 Apr, Bipolar affective disorder, currently manic, mild F31.11 [facility] [address] [place] [address] 72221- 0617 Apr, Actinic keratosis L57.0 [facility] [id number] [place] [address] 02185- 8404 Apr, Bipolar affective disorder, currently manic, mild F31.11 [facility] [id number] [place] [address] 18273- 5762 Apr, [facility] [address] [address] Mar, Allergic contact dermatitis, unspecified trigger L23.9 and Right leg pain M79.604 [facility] [address] [address]- 6833 Mar, [facility] [id number] [place] [address] 46743- 6517 Mar, Bipolar II disorder F31.81 ; Post-traumatic stress disorder , chronic F43.12 and Memory change R41.3 [facility] [id number] [place] [address] 36617- 3539 04 Mar, 2017 Actinic keratosis L57.0 [facility] [id number] [place] [address] 36396- 6329 28 Jan, 2017 Bipolar II disorder F31.81 ; Post-traumatic stress disorder , chronic F43.12 and Memory change R41.3 [facility] [address] [place] [address] 71662- 7631 28 Jan, 2017 Bipolar affective disorder, currently manic, mild F31.11 [facility] [address] [place] [address] 10003- 4283 13 Jan, 2017 Bipolar affective disorder, currently manic, mild F31.11 [facility] [address] [place] [address] 38133- 0263 07 Jan, 2017 Bipolar II disorder F31.81 ; Post-traumatic stress disorder , chronic F43.12 and Memory change R41.3 [facility] [id number] [place] [address] 58716- 8997 Dec, Bipolar II disorder F31.81 ; Post-traumatic stress disorder , chronic F43.12 and Memory change R41.3 [facility] [address] [address]- 8942 Dec, Bipolar affective disorder, currently manic, mild F31.11 [facility] [address] [address]- 1633 Dec, Bipolar affective disorder, currently manic, mild F31.11 [facility] [address] [place] [address] 88939- 9706 Dec, Post-traumatic stress disorder, chronic F43.12 [facility] [id number] [place] [address] 68769- 7606 Dec, Bipolar II disorder F31.81 ; Post-traumatic stress disorder , chronic F43.12 and Memory change R41.3 [facility] [id number] [place] [address] 262990- 8659 Dec, Post-traumatic stress disorder, chronic F43.12 [facility] [id number] [place] [address] 25350- 4349 Nov, [facility] [id number] [place] [address] 51495- 2940 Nov, Bipolar II disorder F31.81 ; Post-traumatic stress disorder , chronic F43.12 and Memory change R41.3 [facility] [id number] [place] [address] 32180- 4744 Nov, [facility] [id number] [place] [address] 79065- 6977 Nov, Post-traumatic stress disorder, chronic F43.12 and Bipolar II disorder F31.81 [facility] [address] [place] [address] 89917- 5661 Nov, Actinic keratosis L57.0 [facility] [id number] [place] [address] 96565- 3725 Oct, Bipolar II disorder F31.81 ; Post-traumatic stress disorder , chronic F43.12 and Memory change R41.3 [facility] [address] [place] [address] 68972- 3786 Oct, Post-traumatic stress disorder, chronic F43.12 ; Bipolar II disorder F31.81 and Memory change R41.3 [facility] [address] [address]- 1397 Oct, Bipolar II disorder F31.81 ; Post-traumatic stress disorder , chronic F43.12 and Memory change R41.3 [facility] [address] [address]- 3653 Oct, Actinic keratosis L57.0 [facility] [id number] [place] [address] 36423- 1550 September, Bipolar II disorder F31.81 ; Post-traumatic stress disorder , chronic F43.12 and Memory change R41.3 [place] [address] [place] [address] 48847- 1150 September, Bipolar II disorder F31.81 ; Post-traumatic stress disorder , chronic F43.12 and Memory change R41.3 [place] [address] [place] [address] 95476- 0213 September, Post-traumatic stress disorder, chronic F43.12 ; Bipolar II disorder F31.81 and Memory change R41.3 [place] [address] [place] [address] 35099- 4861 Jul, Bipolar II disorder F31.81 ; Post-traumatic stress disorder , chronic F43.12 and Memory change R41.3 [place] [address] [address]- 7792 Jul, Bipolar II disorder F31.81 ; Post-traumatic stress disorder , chronic F43.12 and Memory change R41.3 [place] [address] [place] [address] 37315- 8360 Jul, Bipolar II disorder F31.81 ; Post-traumatic stress disorder , chronic F43.12 and Memory change R41.3 [place] [address] [address]- 3291 Jul, Post-traumatic stress disorder, chronic F43.12 ; Bipolar II disorder F31.81 and Memory change R41.3 [place] [id number] [place] [address] 19050- 7625 Jul, Tear of medial meniscus of right knee, unspecified tear type , unspecified whether old or current tear, initial encounter S83.241A [place] [address]- 6911 Jul, Bipolar II disorder F31.81 ; Post-traumatic stress disorder , chronic F43.12 and Memory change R41.3 [place] [address] 15609- 4641 Jul, Shortness of breath R06.02 ; Mixed hyperlipidemia E78.2 and Chronic fatigue R53.82 [place] [address] 32746- 1790 Jul, Bipolar II disorder F31.81 ; Post-traumatic stress disorder , chronic F43.12 and Memory change R41.3 [place] [id number] [place] [address] 99518- 8570 Jul, [place] [id number] [place] [address] 22735- 7363 Jun, Bipolar II disorder F31.81 ; Post-traumatic stress disorder , chronic F43.12 and Memory change R41.3 [place] [id number] [place] [address] 19377- 5919 Jun, Post-traumatic stress disorder, chronic F43.12 ; Bipolar II disorder F31.81 and Memory change R41.3 [place] [address] 24281- 0192 Jun, Right anterior knee pain M25.561 ; Shortness of breath R06.02 and Bronchiolitis J21.9 [place] [id number] [place] [address] 62560- 5107 Jun, [place] [address] [address]- 2592 Jun, Bipolar II disorder F31.81 ; Post-traumatic stress disorder , chronic F43.12 and Memory change R41.3 [facility] [id number] [place] [address] 11011- 1890 Jun, [facility] [id number] [place] [address] 25455- 5051 Jun, Bipolar II disorder F31.81 ; Post-traumatic stress disorder , chronic F43.12 and Memory change R41.3 [facility] [address] [place] [address] 33428- 5186 May, [facility] [id number] [place] [address] 74373- 7666 May, [facility] [id number] [place] [address] 15876- 6609 May, [facility] [id number] [place] [address] 93458- 4269 May, Right anterior knee pain M25.561 ; Cough R05 ; Skin lesion of right arm L98.9 and Lesion of skin of face L98.9 [facility] [address] [place] [address] 85550- 8336 May, [facility] [address] [place] [address] 66029- 5191 May, Post-traumatic stress disorder, chronic F43.12 ; Memory change R41.3 and Bipolar I disorder, most recent episode manic F31.10 [facility] [id number] [place] [address] 81070- 9286 May, [facility] [id number] [place] [address] 24919- 2359 May, Right anterior knee pain M25.561 [facility] [id number] [place] [address] 46564- 3389 May, [place] [address] [address]- 5624 Apr, Bipolar II disorder F31.81 ; Post-traumatic stress disorder , chronic F43.12 and Memory change R41.3 [place] [id number] [place] [address] 84983- 5601 Apr, Bipolar II disorder F31.81 ; Post-traumatic stress disorder , chronic F43.12 and Memory change R41.3 [place] [id number] [place] [address] 18538- 3191 Apr, Post-traumatic stress disorder, chronic F43.12 ; Bipolar II disorder F31.81 and Memory change R41.3 [place] [id number] [place] [address] 52634- 6501 Mar, Bipolar II disorder F31.81 ; Post-traumatic stress disorder , chronic F43.12 and Memory change R41.3 [place] [id number] [place] [address] 45875- 3520 Mar, Memory change R41.3 ; Confusion R41.0 and Dizziness R42 [id number] [place] [address] 33254- 4876 Mar, Encounter for immunization Z23 ; Memory change R41.3 and Fatigue, unspecified type R53.83 [place] [id number] [place] [address] 86512- 4127 Mar, Bipolar II disorder F31.81 ; Post-traumatic stress disorder , chronic F43.12 and Memory change R41.3 [place] [address] [place] [address] 18365- 2842 Jan, Bipolar II disorder F31.81 ; Post-traumatic stress disorder , chronic F43.12 and Memory change R41.3 [place] [address] [place] [address] 14667- 5415 Jan, Post-traumatic stress disorder, chronic F43.12 ; Bipolar II disorder F31.81 ; Anxiety disorder, unspecified F41.9 and Memory change R41.3 [facility] [address] [address]- 3351 Jan, Bipolar II disorder F31.81 ; Post-traumatic stress disorder , chronic F43.12 and Memory change R41.3 [facility] [address] [place] [address] 23342- 1476 Dec, Bipolar II disorder F31.81 ; Post-traumatic stress disorder , chronic F43.12 and Memory change R41.3 [facility] [address] [place] [address] 45147- 5439 Dec, Memory loss R41.3 [facility] [id number] [place] [address] 39732- 3154 Dec, Bipolar II disorder F31.81 ; Post-traumatic stress disorder , chronic F43.12 and Memory change R41.3 [facility] [address] [place] [address] 45092- 6079 Nov, Bipolar II disorder F31.81 and Post-traumatic stress disorder, chronic F43.12 [facility] [address] [place] [address] 68062- 7705 Nov, Bipolar II disorder F31.81 ; Post-traumatic stress disorder , chronic F43.12 and Memory change R41.3 [facility] [address] [place] [address] 93788- 9966 Oct, Post-traumatic stress disorder, chronic F43.12 and Bipolar disorder, unspecified F31.9 [facility] [address] [address]- 5260 Oct, Bipolar II disorder F31.81 ; Post-traumatic stress disorder , chronic F43.12 and Memory change R41.3 [facility] [address] [address] Oct, Dental examination Z01.20 [facility] [address] [place] [address] 1932 September, Bipolar II disorder F31.81 ; Post-traumatic stress disorder , chronic F43.12 and Memory change R41.3 [place] [id number] [place] [address]- 3439 Aug, Bipolar II disorder F31.81 and Post-traumatic stress disorder, chronic F43.12 [place] [id number] [place] [address] 1983 Aug, Bipolar II disorder F31.81 and Post-traumatic stress disorder, chronic F43.12 [place] [address] 7725 Jul, Bipolar II disorder F31.81 and Post-traumatic stress disorder, chronic F43.12 [place] [id number] [place] [address] 80535- 2466 Jul, [place] [id number] [place] [address] 15468- 5607 Jul, [place] [id number] [place] [address] 838696- 5595 Jul, Post-traumatic stress disorder, chronic F43.12 and Bipolar disorder, unspecified F31.9 [place] [id number] [place] [address] 15972- 0847 Jun, Bipolar II disorder F31.81 and Post-traumatic stress disorder, chronic F43.12 [place] [id number] [place] [address]- 6117 Jun, Post-traumatic stress disorder, chronic F43.12 and Bipolar disorder, unspecified F31.9 [place] [id number] [place] [address]- 1293 Jun, [place] [id number] [place] [address] 72569- 4019 Jun, Pharyngeal dysphagia R13.13 ; Hoarseness R49.0 and Cough R05 [facility] [id number] [place] [address] 50563- 5349 Jun, Post-traumatic stress disorder, chronic F43.12 and Bipolar disorder, unspecified F31.9 [facility] [id number] [place] [address] 55761- 3915 30 May, 2015 Cough R05 [facility] [address] 321712- 8228 30 May, 2015 Post-traumatic stress disorder, chronic F43.12 and Bipolar disorder, unspecified F31.9 [place] [address] 73546- 3578 May, Cough R05 [facility] [address] 94998- 8248 16 May, 2015 [facility] [address] [id number] 16 May, 2015 Dental examination Z01.20 [facility] [address] 30924- 2527 15 May, 2015 Bipolar II disorder F31.81 and Post-traumatic stress disorder, chronic F43.12 [facility] [id number] [place] [address] 35347- 0081 14 May, 2015 [place] [id number] [place] [address] 76834- 9806 14 May, 2015 Bipolar II disorder F31.81 and Anxiety disorder, unspecified F41.9 [facility] [id number] [place] [address] 26772- 6049 10 May, 2015 Memory change R41.3 and History of renal insufficiency syndrome Z87.448 [facility] [id number] [place], [place] [id number] 03 May, 2015 Memory change R41.3 ; Dry mouth R68.2 and History of renal insufficiency syndrome Z87.448 [facility] [id number] [place] [id number] [address] May, Bipolar II disorder F31.81 and Post-traumatic stress disorder, chronic F43.12 [facility] [id number] [place] [address] [id number] [phone] Mar, Bipolar disorder, unspecified F31.9 and Generalized anxiety disorder F41.1 [facility] [id number] [place] [address] 36726- 6816 Mar, Bipolar II disorder F31.81 [facility] [id number] [place] [address] 00353- 5759 Mar, Encounter for immunization Z23 [facility] [id number] [place] [address] 15070- 1507 Mar, [facility] [id number] [place] [address] 34858- 5458 Mar, Bipolar II disorder F31.81 [facility] [id number] [place] [address] 62582- 1559 Mar, [facility] [id number] [place] [address] 81882- 9804 Jan, Bipolar disorder, unspecified 296.80 and Anxiety disorder 300.00 [facility] [id number] [place] [address] 13629- 7917 Jan, [facility] [id number] [place] [address] 92001- 4738 Jan, Bipolar disorder, unspecified 296.80 and Anxiety disorder 300.00 [facility] [id number] [place] [address] 65220- 7320 Dec, Bipolar disorder, unspecified 296.80 and Anxiety disorder 300.00 [facility] [id number] [place] [address] 84248- 4757 Dec, [facility] [id number] [place] [address] 70370- 3610 Dec, Bipolar disorder, unspecified 296.80 and Anxiety disorder 300.00 [facility] [id number] [address] 1702 Nov, Bipolar disorder, unspecified 296.80 and Anxiety disorder 300.00 [facility] [id number] 2577 Oct, Bipolar disorder, unspecified 296.80 and Anxiety disorder 300.00 [facility] [id number] [place] [address] 865077- 6540 Oct, Anxiety 300.00 and Bipolar disorder, unspecified 296.80 [facility] [id number] [place] [address] 268331- 6954 September, Bipolar disorder, unspecified 296.80 and Anxiety disorder 300.00 [facility] [id number] [address]- 1119 September, [facility] [id number] [place] [address] 38307- 5137 Aug, Cough 786.2 [facility] [id number] [place] [address] 69961- 4810 Aug, [facility] [id number] [place] [address] 39790- 4187 Aug, [facility] [id number] [address]- 1918 Jul, [facility] [address] [address]- 5944 Jul, [facility] [address] 9000 Jul, [facility] [id number] [place] [address] 061722- 9226 Jul, [facility] [address] [address] 5816 Jul, [facility] [id number] [place] [address]- 1269 13 Jul, 2014 [facility] [place] [facility] [address] [id number] [place] [address]- 6367 Jun, [facility] [place] [facility] [address] [id number] [place] [address]- 5198 Jun, [facility] [place] [facility] [address] [id number] [place] [address]- 1446 Jun, [facility] [place] [facility] [address] [id number] [place] [address]- 5058 Jun, [facility] [place] [facility] [address] [id number] [place] [address]- 6024 May, [facility] [place] [facility] [address] [id number] [place] [address]- 2230 May, [facility] [place] [facility] [address] [id number] [place] [address]- 1074 May, [facility] [place] [facility] [address] [id number] [place] [address]- 4603 May, [facility] [place] [facility] [address] [id number] [place] [address]- 4389 Apr, [facility] [place] [facility] [address] [facility] [id number] [place] [address]- 1808 Apr, [facility] [place] [facility] [address] [id number] [place] [address]- 6492 Mar, [facility] [place] [facility] [address] [id number] [place] [address]- 9572 Mar, [facility] [place] [facility] [address] [id number] [place] 3869 Mar, [facility] [place] [facility] [address] [id number] [place] [address]- 3241 Mar, [facility] [place] [facility] [address] [id number] [place] 3032 Mar, [facility] [place] [facility] [address] [id number] [place] [address]- 2353 Mar, [facility] [place] [facility] [address] [id number] [place] [address]- 6782 Jan, 2013 [facility] [place] [facility] [address] [id number] [place] [address]- 6179 Jan, 2013 [facility] [place] [facility] [address] [id number] [place] [address]- 3259 Jan, 2013 [facility] [place] [facility] [address] [id number] [place] [address]- 1391 Jan, 2013 [facility] [place] [facility] [address] [id number] [place] [address]- 9559 Jan, 2013 [facility] [place] [facility] [address] [id number] [place] [address]- 8341 Jan, 2013 [facility] [place] [facility] [address] [id number] [place] [address]- 0120 Dec, [facility] [place] [facility] [address] [id number] [place] [address]- 3297 Dec, [facility] [place] [facility] [address] [id number] [place] [address]- 7214 Dec, [facility] [place] [facility] [address] [id number] [place] [address]- 8596 Dec, [facility] [place] [facility] [address] [id number] [place] [address]- 6086 Dec, [facility] [place] [facility] [address] [id number] [place] [address]- 6025 Dec, [facility] [place] [facility] [address] [id number] [place] [address]- 7283 Nov, [facility] [place] [facility] [address] [id number] [place] [address]- 9586 Nov, [facility] [place] [facility] [address] [id number] [place] [address]- 8690 Nov, [facility] [place] [facility] [address] [id number] [place] [address]- 6647 Nov, [facility] [place] [facility] [address] [id number] [place] 7597 Nov, [facility] [place] [facility] [address] [id number] [place] [address]- 2439 Nov, [facility] [place] [facility] [address] [id number] [place] [address]- 2384 Nov, [facility] [place] [facility] [address] [id number] [place] [address]- 1660 Nov, [facility] [place] [facility] [address] [id number] [place] [address]- 7219 Nov, [facility] [place] [facility] [address] [id number] [place] [address]- 2198 Nov, [facility] [place] [facility] [address] [id number] [place] [address]- 5984 September, [facility] [place] [facility] [address] [id number] [place] [address]- 9251 September, [facility] [place] [facility] [address] [id number] [place] [address]- 5769 September, [facility] [place] [facility] [address] [id number] [place] [address]- 6754 September, [facility] [place] [facility] [address] [id number] [place] [address]- 0778 September, [facility] [place] [facility] [address] [id number] [place] [address]- 3251 September, [facility] [place] [facility] [address] [id number] [place] [address]- 6899 September, [facility] [place] [facility] [address] [id number] [place] 0248 September, [facility] [place] [facility] [address] [id number] [place] [address]- 1580 Aug, [facility] [place] [facility] [address] [id number] [place] [address]- 5380 Aug, [facility] [place] [facility] [address] [id number] [place] [address]- 6950 Aug, [facility] [place] [facility] [address] [id number] [place] [address]- 3472 Aug, [facility] [place] [facility] [address] [id number] [place] [address]- 4772 Jul, [facility] [place] [facility] [address] [id number] [place] [address]- 6492 Jul, [facility] [place] [facility] [address] [facility] [id number] [place] [address]- 8096 Jul, [facility] [place] [facility] [address] [id number] [place] [address]- 1320 Jul, [facility] [place] [facility] [address] [id number] [place] [address]- 9856 18 Jul, 2013 [facility] [place] [facility] [address] [facility] [id number] [place] [address]- 8696 Jul, [facility] [place] [facility] [address] [facility] [id number] [place] [address]- 1891 Jul, [facility] [place] [facility] [address] [facility] [id number] [address]- 4269 Jul, [facility] [place] [facility] [address] [facility] [id number] [place] [address]- 6631 Jul, [facility] [place] [facility] [address] [id number] [place] [address]- 4825 Jul, [facility] [place] [facility] [address] [facility] [id number] [place] [address]- 1308 Jul, [facility] [place] [facility] [address] [facility] [id number] [address]- 5268 Jun, [facility] [address] [id number] [place] [address]- 4104 Jun, [facility] [place] [facility] [address] [id number] [place] [address]- 5181 Jun, [facility] [place] [facility] [address] [id number] [place] [address]- 7015 Jun, [facility] [place] [facility] [address] [id number] [place] [address]- 1832 May, [facility] [place] [facility] [address] [id number] [place] [address]- 9478 May, [facility] [place] [facility] [address] [id number] [place] [address]- 5625 Apr, [facility] [place] [facility] [address] [id number] [place] [address]- 0692 Apr, [facility] [place] [facility] [address] [id number] [place] [address]- 7146 Apr, [facility] [place] [facility] [address] [id number] [place] [address]- 8529 Apr, [facility] [place] [facility] [address] [id number] [place] [address]- 4845 Apr, [facility] [place] [facility] [address] [id number] [address]- 1260 Apr, [facility] [place] [facility] [address] [id number] [address]- 7752 Apr, [facility] [place] [facility] [address] [id number] [address]- 2915 Apr, [facility] [place] [facility] [address] [id number] [place] [address]- 6432 Apr, [facility] [place] [facility] [address] [id number] [place] [address]- 7379 Apr, [facility] [place] [facility] [address] [address]- 4746 Apr, [facility] [address] [address]- 3015 Apr, [facility] [id number] 5426 Mar, [facility] [id number] [address]- 8039 Mar, [facility] [id number] [address]- 1185 Mar, [facility] [id number] [place] [address] 53602- 8649 Dec, [facility] [address] 6056 Dec, [facility] [id number] [place] [address] 87698- 4627 Dec, [facility] [address] [address]- 0164 Oct, [facility] [address] [address]- 9392 May, [facility] [address] [address]- 0547 May, [facility] [id number] 3313 May, [facility] [id number] [address]- 7742 Dec, IMMUNIZATIONS No Known Immunizations SOCIAL HISTORY Never Assessed REASON FOR VISIT Nexium note PLAN OF CARE VITAL SIGNS MEDICATIONS Medication Instructions Dosage Frequency Start Date End Date Duration Status Omeprazole 40 mg Orally Once a day 1 capsule 24h May, 90 days Active RESULTS No Results PROCEDURES No [...] Hospitalization History [facility] 12/2014 Hospitalization History Obstructive Airway Disease, Mood disorder, cough-[facility] 07/02/15 Hospitalization History Bronchitis- [facility] 06/2016
--- OUTSIDE RECORDS SUMMARY | 2018-02-03 09:09 | XMS REPORT ---
Author Author MACEYDREW [facility] Address [address] [place] [address] Care Team Providers Care It Network Engineer Name Role Phone LUCILADREW AJ Unavailable PROBLEMS Type Condition ICD9-CM Code RBC15-YZ Code Onset Dates Condition Status SNOMED Code Problem Confusion R41.0 Active 948410810 Problem Mixed hyperlipidemia E78.2 Active 461334333 Problem Dizziness R42 Active 496760659 Problem Other chronic pain G89.29 Active 79863456 Problem Bipolar disorder, current episode mixed, mild F31.61 Active 260502514 Problem Bipolar affective disorder, currently manic, mild F31.11 Active 750526374 Problem Chronic fatigue R53.82 Active 27042744 Problem Chronic obstructive pulmonary disease, unspecified COPD type J44.9 Active 72522038 Problem Slow transit constipation K59.01 Active 26862485 Problem Post-traumatic stress disorder, chronic F43.12 Active 35922806 Problem Memory change R41.3 Active 960072988 Problem History of renal insufficiency syndrome Z87.448 Active 093643978 Problem Bipolar II disorder F31.81 Active 61940552 Problem Pharyngeal dysphagia R13.13 Active [id number] ALLERGIES No Information ENCOUNTERS Encounter Location Date Diagnosis [facility] [id number] [address] Oct, [facility] [id number] [place] [address] 13749- 9042 Oct, [facility] [id number] [place] [address] 13751- 1940 Oct, [facility] [address] [address] 59[address] September, [facility] [id number] [place] [address] 02214- 6243 September, [place] [id number] [place] [address] 34014- 1702 September, Pain in left ankle and joints of left foot M25.572 ; Dermatitis L30.9 and Other chronic pain G89.29 [place] [id number] [place] [address] 90301- 9602 Aug, Right elbow pain M25.521 and Elevated blood pressure reading R03.0 [facility] [facility] [id number] [place] [address] 88847- 3810 Aug, Bipolar disorder, current episode mixed, mild F31.61 and BMI 40.0-44.9, adult Z68.41 [place] [address] 08196- 2737 Aug, [place] [address] 11909- 1446 Aug, Bipolar II disorder F31.81 and Post-traumatic stress disorder, chronic F43.12 [place] [id number] [place] [address] 50797- 6236 Jul, Elevated blood pressure reading R03.0 [place] [id number] [place] [address] 79128- 5348 Jul, Bipolar II disorder F31.81 and Post-traumatic stress disorder, chronic F43.12 [place] [id number] [place] [address] 00391- 2041 Jul, Bipolar disorder, current episode mixed, mild F31.61 [facility] [id number] [place] [address] 87300 -2254 Jul, Right foot pain M79.671 ; Allergic contact dermatitis, unspecified trigger L23.9 ; Contusion of right foot, initial encounter S90.31XA and BMI 40.0-44.9, adult Z68.41 [facility] [id number] [place] [address] 34677 -0710 Jul, 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 [place] [id number] [place] [address] 15441- 4527 Jul, [place] [id number] [place] [address] 15 Jul, 2017 Bipolar disorder, current episode mixed, mild F31.61 [place] [address] 23852- 8552 15 Jul, 2017 Bipolar II disorder F31.81 ; Post-traumatic stress disorder , chronic F43.12 and Memory change R41.3 [place] [id number] [place] [address] 49861- 4289 14 Jul, 2017 Elevated blood pressure reading R03.0 ; Chronic obstructive pulmonary disease, unspecified COPD type J44.9 ; Long-term use of high-risk medication Z79.899 and Cognitive decline R41.89 [place] [id number] [place] [address] 26273- 3205 06 Jul, 2017 Elevated blood pressure reading R03.0 [place] [id number] [place] [address] 37996- 9205 05 Jul, 2017 [place] [id number] [place] [address] 86434- 5131 01 Jul, 2017 Bipolar II disorder F31.81 ; Post-traumatic stress disorder , chronic F43.12 and Memory change R41.3 [place] [id number] [place] [address] 94798- 4555 Jun, [place] [id number] [place] [address] 73661- 8647 Jun, Bipolar II disorder F31.81 ; Post-traumatic stress disorder , chronic F43.12 and Memory change R41.3 [place] [id number] [place] [address] 05374- 2158 Jun, Localized swelling, mass or lump of neck R22.1 ; Slow transit constipation K59.01 and Elevated blood pressure reading R03.0 [place] [address] [place] [address] 60891- 3081 Jun, [place] [address] 93981- 0589 Jun, Bipolar affective disorder, currently manic, mild F31.11 [facility] [place] [address] 80535 -5852 15 May, 2017 [facility] [place] [address] 50347 -8569 May, [place] [address] 82693- 6434 May, Bipolar II disorder F31.81 ; Post-traumatic stress disorder , chronic F43.12 and Memory change R41.3 [place] [address] 15819- 3635 May, [place] [id number] [place] [address] 83498- 3294 May, [place] [id number] [place] [address] 37018- 7792 May, Bipolar affective disorder, currently manic, mild F31.11 [place] [id number] [place] [address] 40370- 8563 May, [facility] [place] [id number] [place] [address] 71154 -9633 May, Localized swelling, mass or lump of neck R22.1 and Localized swelling, mass and lump, head R22.0 [place] [id number] [place] [address] 04943- 8479 Apr, [place] [id number] [place] [address] 16567- 8919 Apr, Bipolar affective disorder, currently manic, mild F31.11 [place] [address] [address] 5682 07 Apr, 2017 Bipolar II disorder F31.81 [facility] [id number] [place] [address] 36231- 6687 Apr, [facility] [id number] [place] [address] 10671- 8197 Apr, Bipolar affective disorder, currently manic, mild F31.11 [facility] [id number] [place] [address] 31615- 7628 Apr, Actinic keratosis L57.0 [facility] [id number] [place] [address] 20705- 7367 Apr, Bipolar affective disorder, currently manic, mild F31.11 [facility] [id number] [place] [address] 44769- 4483 Apr, [facility] [id number] [place] [address] 63948 -2268 Mar, Allergic contact dermatitis, unspecified trigger L23.9 and Right leg pain M79.604 [facility] [id number] [place] [address] 48391- 2495 Mar, [facility] [id number] [place] [address] 00276- 6041 Mar, Bipolar II disorder F31.81 ; Post-traumatic stress disorder , chronic F43.12 and Memory change R41.3 [facility] [address] [place] [address] 68582- 6862 Mar, Actinic keratosis L57.0 [facility] [id number] [place] [address] 14020- 8854 Jan, Bipolar II disorder F31.81 ; Post-traumatic stress disorder , chronic F43.12 and Memory change R41.3 [facility] [id number] [place] [address] 28250- 2966 Jan, Bipolar affective disorder, currently manic, mild F31.11 [facility] [address] [facility] [id number] [address]- 0463 13 Jan, 2017 Bipolar affective disorder, currently manic, mild F31.11 [facility] [address] [facility] [id number] [address]- 0696 07 Jan, 2017 Bipolar II disorder F31.81 ; Post-traumatic stress disorder , chronic F43.12 and Memory change R41.3 [facility] [address] [facility] [id number] [address]- 4190 Dec, Bipolar II disorder F31.81 ; Post-traumatic stress disorder , chronic F43.12 and Memory change R41.3 [facility] [address] [facility] [id number] [address]- 1139 Dec, Bipolar affective disorder, currently manic, mild F31.11 [facility] [id number] [address]- 7376 Dec, Bipolar affective disorder, currently manic, mild F31.11 [facility] [address] [facility] [id number], [place] [address]- 2976 Dec, Post-traumatic stress disorder, chronic F43.12 [facility] [address] [facility] [id number] [address]- 3365 Dec, Bipolar II disorder F31.81 ; Post-traumatic stress disorder , chronic F43.12 and Memory change R41.3 [facility] [address] [facility] [id number] [address]- 7822 Dec, Post-traumatic stress disorder, chronic F43.12 [facility] [address] [facility] [id number] [address]- 3322 Nov, [facility] [address] [facility] [id number] [address]- 9979 Nov, Bipolar II disorder F31.81 ; Post-traumatic stress disorder , chronic F43.12 and Memory change R41.3 [place] [address] [address]- 4450 Nov, [facility] [id number] [place] [address] 39450- 4487 Nov, Post-traumatic stress disorder, chronic F43.12 and Bipolar II disorder F31.81 [facility] [address] [address]- 0392 Nov, Actinic keratosis L57.0 [facility] [address] [address]- 7747 Oct, Bipolar II disorder F31.81 ; Post-traumatic stress disorder , chronic F43.12 and Memory change R41.3 [place] [address] [address]- 6526 Oct, Post-traumatic stress disorder, chronic F43.12 ; Bipolar II disorder F31.81 and Memory change R41.3 [place] [address] [address]- 3959 Oct, Bipolar II disorder F31.81 ; Post-traumatic stress disorder , chronic F43.12 and Memory change R41.3 [place] [address] [address]- 4952 Oct, Actinic keratosis L57.0 [place] [address] [address]- 2215 September, Bipolar II disorder F31.81 ; Post-traumatic stress disorder , chronic F43.12 and Memory change R41.3 [place] [address] [address]- 0204 September, Bipolar II disorder F31.81 ; Post-traumatic stress disorder , chronic F43.12 and Memory change R41.3 [place] [address] [address]- 4224 September, Post-traumatic stress disorder, chronic F43.12 ; Bipolar II disorder F31.81 and Memory change R41.3 [place] [address], [place] [address]- 7497 Jul, Bipolar II disorder F31.81 ; Post-traumatic stress disorder , chronic F43.12 and Memory change R41.3 [place] [address] [place] [address] 98121- 2018 15 Jul, 2016 Bipolar II disorder F31.81 ; Post-traumatic stress disorder , chronic F43.12 and Memory change R41.3 [place] [address] [place] [address] 12664- 6830 Jul, Bipolar II disorder F31.81 ; Post-traumatic stress disorder , chronic F43.12 and Memory change R41.3 [place] [address] [place] [address] 37482- 8343 Jul, Post-traumatic stress disorder, chronic F43.12 ; Bipolar II disorder F31.81 and Memory change R41.3 [place] [address] [place] [address] 34042- 8293 23 Jul, 2016 Tear of medial meniscus of right knee, unspecified tear type , unspecified whether old or current tear, initial encounter S83.241A [place] [address] [place] [address] 38734- 0445 21 Jul, 2016 Bipolar II disorder F31.81 ; Post-traumatic stress disorder , chronic F43.12 and Memory change R41.3 [place] [address] [place] [address] 24412- 3271 07 Jul, 2016 Shortness of breath R06.02 ; Mixed hyperlipidemia E78.2 and Chronic fatigue R53.82 [place] [id number] [place] [address] 59441- 4964 07 Jul, 2016 Bipolar II disorder F31.81 ; Post-traumatic stress disorder , chronic F43.12 and Memory change R41.3 [place] [address] [place] [address] 57908- 8299 Jul, [facility] [address] [place] [address] 03372- 7560 Jun, Bipolar II disorder F31.81 ; Post-traumatic stress disorder , chronic F43.12 and Memory change R41.3 [facility] [id number] [place] [address] 89713- 3406 Jun, Post-traumatic stress disorder, chronic F43.12 ; Bipolar II disorder F31.81 and Memory change R41.3 [facility] [id number] [place] [address] 90930- 7786 Jun, Right anterior knee pain M25.561 ; Shortness of breath R06.02 and Bronchiolitis J21.9 [facility] [id number] [place] [address] 10199- 6491 Jun, [facility] [id number] [place] [address] 83901- 8470 Jun, Bipolar II disorder F31.81 ; Post-traumatic stress disorder , chronic F43.12 and Memory change R41.3 [facility] [id number] [place] [address] 90658- 6531 Jun, [facility] [id number] [place] [address] 34582- 9837 Jun, Bipolar II disorder F31.81 ; Post-traumatic stress disorder , chronic F43.12 and Memory change R41.3 [facility] [address] [place] [address] 80146- 1345 May, [facility] [id number] [place] [address] 24178- 8524 May, [facility] [id number] [place] [address] 29015- 0563 May, [facility] [address] [address]- 5790 May, Right anterior knee pain M25.561 ; Cough R05 ; Skin lesion of right arm L98.9 and Lesion of skin of face L98.9 [place] [address] [place] [address] 15553- 4649 May, [facility] [id number] [place] [address] 5067 May, Post-traumatic stress disorder, chronic F43.12 ; Memory change R41.3 and Bipolar I disorder, most recent episode manic F31.10 [place] [address] [place] [address] 06926- 2404 May, [place] [address] 514852- 2129 May, Right anterior knee pain M25.561 [place] [address] 99194- 0974 May, [place] [address] [place] [address] 82835- 9951 Apr, Bipolar II disorder F31.81 ; Post-traumatic stress disorder , chronic F43.12 and Memory change R41.3 [place] [address] [place] [address] 95708- 4570 Apr, Bipolar II disorder F31.81 ; Post-traumatic stress disorder , chronic F43.12 and Memory change R41.3 [place] [address] [place] [address] 39081- 0776 Apr, Post-traumatic stress disorder, chronic F43.12 ; Bipolar II disorder F31.81 and Memory change R41.3 [place] [address] [place] [address] 59283- 2755 Mar, Bipolar II disorder F31.81 ; Post-traumatic stress disorder , chronic F43.12 and Memory change R41.3 [place] [address] [place] [address] 82116- 3677 Mar, Memory change R41.3 ; Confusion R41.0 and Dizziness R42 [place] [address] [address]- 2429 05 Mar, 2016 Memory change R41.3 ; Encounter for immunization Z23 and Fatigue, unspecified type R53.83 [place] [address], [place] [address]- 6507 03 Mar, 2016 Bipolar II disorder F31.81 ; Post-traumatic stress disorder , chronic F43.12 and Memory change R41.3 [place] [address] [place] [address] 24840- 0836 21 Feb, 2016 Bipolar II disorder F31.81 ; Post-traumatic stress disorder , chronic F43.12 and Memory change R41.3 [place] [address] [place] [address] 99457- 7494 19 Feb, 2016 Post-traumatic stress disorder, chronic F43.12 ; Bipolar II disorder F31.81 ; Anxiety disorder, unspecified F41.9 and Memory change R41.3 [place] [address] [place] [address] 15537- 3476 15 Feb, 2016 Bipolar II disorder F31.81 ; Post-traumatic stress disorder , chronic F43.12 and Memory change R41.3 [place] [address] [place] [address] 12950- 4153 Dec, Bipolar II disorder F31.81 ; Post-traumatic stress disorder , chronic F43.12 and Memory change R41.3 [place] [address] [address]- 6420 16 Jan, 2016 Memory loss R41.3 [place] [address] [place] [address] 86445- 4540 Dec, Bipolar II disorder F31.81 ; Post-traumatic stress disorder , chronic F43.12 and Memory change R41.3 [place] [address], [place] [address]- 4716 Nov, Bipolar II disorder F31.81 and Post-traumatic stress disorder, chronic F43.12 [facility] [address] [address]- 7055 Nov, Bipolar II disorder F31.81 ; Post-traumatic stress disorder , chronic F43.12 and Memory change R41.3 [facility] [address] [address]- 6636 Oct, Post-traumatic stress disorder, chronic F43.12 and Bipolar disorder, unspecified F31.9 [facility] [address] [place] [address] 24202- 6262 Oct, Bipolar II disorder F31.81 ; Post-traumatic stress disorder , chronic F43.12 and Memory change R41.3 [facility] [address] [id number] Oct, Dental examination Z01.20 [facility] [address] [place] [address] 83146- 8065 September, Bipolar II disorder F31.81 ; Post-traumatic stress disorder , chronic F43.12 and Memory change R41.3 [facility] [address] [place] [address] 09558- 3451 Aug, Bipolar II disorder F31.81 and Post-traumatic stress disorder, chronic F43.12 [facility] [address] [place] [address] 53007- 1357 Aug, Bipolar II disorder F31.81 and Post-traumatic stress disorder, chronic F43.12 [facility] [address] [address]- 6457 Jul, Bipolar II disorder F31.81 and Post-traumatic stress disorder, chronic F43.12 [facility] [address] [address]- 0210 Jul, [facility] [address] [place] [address] 15012- 9842 Jul, [facility] [id number] [place] [address] 0543 15 Jul, 2015 Post-traumatic stress disorder, chronic F43.12 and Bipolar disorder, unspecified F31.9 [facility] [address] 917 Jun, Bipolar II disorder F31.81 and Post-traumatic stress disorder, chronic F43.12 [facility] [address] [place] [address]- 033 Jun, Post-traumatic stress disorder, chronic F43.12 and Bipolar disorder, unspecified F31.9 [facility] [address] 393 Jun, [place] [address] 051 Jun, Pharyngeal dysphagia R13.13 ; Hoarseness R49.0 and Cough R05 [facility] [address] 34183- 3299 Jun, Post-traumatic stress disorder, chronic F43.12 and Bipolar disorder, unspecified F31.9 [facility] [address]99836- 0061 May, Cough R05 [facility] [address] 282239- 5344 May, Post-traumatic stress disorder, chronic F43.12 and Bipolar disorder, unspecified F31.9 [facility] [id number] [place] [address] 61037- 6607 May, Cough R05 [facility] [address] 11788- 9199 May, [facility] [address] [id number] May, Dental examination Z01.20 [facility] [address] 57341- 9841 May, Bipolar II disorder F31.81 and Post-traumatic stress disorder, chronic F43.12 [facility] [id number] [place] [address] 58103- 2872 May, [facility] [id number] [place] [address] 18903- 8888 May, Bipolar II disorder F31.81 and Anxiety disorder, unspecified F41.9 [facility] [address] 34211- 0785 May, Memory change R41.3 and History of renal insufficiency syndrome Z87.448 [facility] [address] 63866- 0423 May, Memory change R41.3 ; Dry mouth R68.2 and History of renal insufficiency syndrome Z87.448 [facility] [address] 31572- 2262 May, Bipolar II disorder F31.81 and Post-traumatic stress disorder, chronic F43.12 [facility] [id number] [place] [address] 77334- 3552 Mar, Bipolar disorder, unspecified F31.9 and Generalized anxiety disorder F41.1 [facility] [id number] [place] [address] 36515- 1382 Mar, Bipolar II disorder F31.81 [facility] [id number] [place] [id number]- [id number] Mar, Encounter for immunization Z23 [facility] [id number] [place] [address] [id number]- 2665 Mar, [facility] [address] [address]- [address] Mar, Bipolar II disorder F31.81 [facility] [id number] [place] [address] [id number]- 5066 Mar, [facility] [address] [address]- [address] Jan, Bipolar disorder, unspecified 296.80 and Anxiety disorder 300.00 [facility] [id number] [address] Jan, [facility] [id number] [place] [address] [id number] Jan, Bipolar disorder, unspecified 296.80 and Anxiety disorder 300.00 [facility] [id number] [place] [address] 56130- 1155 Dec, Bipolar disorder, unspecified 296.80 and Anxiety disorder 300.00 [facility] [id number] [place] [address] 58912- 3797 Dec, [facility] [id number] [place] [address]- 1961 Dec, Bipolar disorder, unspecified 296.80 and Anxiety disorder 300.00 [facility] [facility] [id number] [place] [address] 65776- [address]37 Nov, Bipolar disorder, unspecified 296.80 and Anxiety disorder 300.00 [facility] [id number] [place] [address] 79485- 3994 Oct, Bipolar disorder, unspecified 296.80 and Anxiety disorder 300.00 [facility] [id number] [place] [address] 85878- 6374 Oct, Anxiety 300.00 and Bipolar disorder, unspecified 296.80 [facility] [id number] [place] [address] 72866- 8180 September, Bipolar disorder, unspecified 296.80 and Anxiety disorder 300.00 [facility] [id number] [place] [address]19- 1275 September, [facility] [id number] [place] [address] 88962- 8979 Aug, Cough 786.2 [facility] [id number] [place] [address] 15391- 0254 14 Aug, 2014 [facility] [place] [facility] [address] [id number] [place] [address] 0207 Aug, [facility] [place] [facility] [address] [id number] [place] [address] 0944 Jul, [facility] [place] [facility] [address] [facility] [id number] [place] [address] Jul, [facility] [place] [facility] [address] [id number] [place] [address] 6808 Jul, [facility] [place] [facility] [address] [id number] [place] [address]- 6158 Jul, [facility] [place] [facility] [address] [facility] [id number] [place] [address]- 3653 Jul, [facility] [place] [facility] [address] [facility] [id number] [place] [address]- 7558 Jul, [facility] [place] [facility] [address] [facility] [id number] [place] [address]- 1511 Jun, [facility] [place] [facility] [address] [facility] [id number] [place] [address]- 4645 Jun, [facility] [place] [facility] [address] [facility] [id number] [place] [address]- 3738 Jun, [facility] [place] [facility] [address] [facility] [id number] [address] 9383 Jun, [facility] [place] [facility] [address] [id number], [place] [address] 7199 May, [facility] [place] [facility] [address] [id number] [place] [address] May, [facility] [place] [facility] [address] [facility] [id number] [place] [address]- 2824 May, [facility] [place] [facility] [address] [facility] [id number] [place] [address]- 5655 May, [facility] [place] [facility] [address] [id number] [place] [address]- 1387 Apr, [facility] [place] [facility] [address] [id number] [place] [address] Apr, [facility] [place] [facility] [address] [id number] [place] [address] Mar, [facility] [place] [facility] [address] [id number] [place] [address]- 0173 Mar, [facility] [place] [facility] [address] [id number] [place] [address]- 4172 Mar, [facility] [place] [facility] [address] [id number] [place] [address]- 1577 Mar, [facility] [place] [facility] [address] [id number] [place] [address]- 3121 Mar, [facility] [place] [facility] [address] [id number] [place] [address]- 2216 Mar, [facility] [place] [facility] [address] [id number] [place] [address]- 3250 Jan, [facility] [place] [facility] [address] [id number] [place] [address]- 8483 Jan, [facility] [place] [facility] [address] [id number] [place] [address]- 7515 Jan, [facility] [place] [facility] [address] [id number] [place] [address]- 9219 05 Jan, 2013 [facility] [place] [facility] [address] [id number] [place] [address]- 0917 Jan, [facility] [place] [facility] [address] [id number] [place] [address]- 5476 Jan, [facility] [place] [facility] [address] [id number] [place] [address]75 Dec, [facility] [place] [facility] [address] [id number] [place] [address]- 9188 Dec, [facility] [place] [facility] [address] [id number] [place] [address]- 6758 Dec, [facility] [place] [facility] [address] [id number] [place] [address]- 2571 Dec, [facility] [place] [facility] [address] [id number] [place] [address]- 3116 Dec, [facility] [place] [facility] [address] [id number] [place] [address]- 3756 Dec, [facility] [place] [facility] [address] [id number] [place] [address]- 9451 Nov, [facility] [place] [facility] [address] [id number] [place] [address]- 8814 Nov, [facility] [place] [facility] [address] [id number] [place] [address]- 3129 Nov, [facility] [place] [facility] [address] [id number] [place] [address]- 2042 Nov, [facility] [place] [facility] [address] [id number] [place] [address]- 1255 Nov, [facility] [place] [facility] [address] [id number] [place] [address]- 7923 Nov, [facility] [place] [facility] [address] [id number] [place] [address]- 6019 Nov, [facility] [place] [facility] [address] [id number] [place] [address]- 0154 Nov, [facility] [place] [facility] [address] [id number] [place] [address]- 7370 Nov, [facility] [place] [facility] [address] [id number] [place] [address]- 9233 Nov, [facility] [place] [facility] [address] [id number] [place] [address]- 3771 September, [facility] [place] [facility] [address] [id number] [place] [address]- 5751 September, [facility] [place] [facility] [address] [id number] [place] [address]- 3208 September, [facility] [place] [facility] [address] [id number] [place] [address]- 9028 September, [facility] [place] [facility] [address] [id number] [place] [address]- 3553 September, [facility] [place] [facility] [address] [id number] [place] [address]- 3387 September, [facility] [place] [facility] [address] [id number] [place] [address]88 September, [facility] [place] [facility] [address] [id number] [place] [address]- 2655 September, [facility] [place] [facility] [address] [id number] [place] [address]- 7253 Aug, [facility] [place] [facility] [address] [id number] [place] [address]- 1732 Aug, [facility] [place] [facility] [address] [id number] [place] [address]- 8477 Aug, [facility] [place] [facility] [address] [facility] [id number] [place] [address]- 1211 Aug, [facility] [place] [facility] [address] [id number] [place] [address]- 2923 Jul, [facility] [place] [facility] [address] [id number] [place] [address]- 8906 Jul, [facility] [place] [facility] [address] [id number] [place] [address]- 8385 Jul, [facility] [place] [facility] [address] [id number] [place] [address]- 0196 Jul, [facility] [place] [facility] [address] [id number] [place] [address]- 3969 Jul, [facility] [place] [facility] [address] [id number] [place] [address]- 9139 Jul, [facility] [place] [facility] [address] [id number] [place] [address]- 1866 Jul, [facility] [place] [facility] [address] [id number] [place] [address]- 5317 Jul, [facility] [place] [facility] [address] [id number] [place] [address]- 8023 Jul, [facility] [place] [facility] [address] [id number] [place] [address]- 3339 Jul, [facility] [place] [facility] [address] [id number] [place] [address]- 6967 Jul, [facility] [place] [facility] [address] [id number] [place] [address]- 5826 Jun, [facility] [place] [facility] [address] [id number] [place] [address]- 5529 Jun, [facility] [place] [facility] [address] [id number] [place] [address]- 5068 Jun, [facility] [place] [facility] [address] [facility] [id number] [place] [address]- 5559 Jun, [facility] [place] [facility] [address] [id number] [place] [address]- 6245 May, [facility] [place] [facility] [address] [id number] [place] [address]- 6590 May, [facility] [place] [facility] [address] [id number] [place] [address]- 1466 Apr, [facility] [place] [facility] [address] [id number] [place] [address]- 9662 Apr, [facility] [place] [facility] [address] [id number] [place] [address]- 5767 Apr, [facility] [place] [facility] [address] [id number] [place] [address]- 3103 Apr, [facility] [place] [facility] [address] [id number] [place] [address]- 4651 Apr, [facility] [place] [facility] [address] [id number] [place] [address]- 4099 Apr, [facility] [place] [facility] [address] [id number] [place] [address]- 4964 Apr, [facility] [place] [facility] [address] [id number] [place] [address]- 8572 Apr, [facility] [place] [facility] [address] [id number] [place] [address]- 8013 Apr, [facility] [place] [facility] [address] [id number] [place] [address]- 5832 Apr, [facility] [place] [facility] [address] [id number] [place] [address]- 0112 Apr, [facility] [place] [facility] [address] [id number] [place] [address]- 0215 Apr, [facility] [place] [facility] [address] [id number] [place] [address]- 3886 Mar, [facility] [place] [facility] [address] [id number] [place] [address]- 8482 Mar, [facility] [place] [facility] [address] [id number] [place] [address]- 4712 Mar, [facility] [place] [facility] [address] [id number] [place] [address]- 9200 Dec, [facility] [place] [facility] [address] [id number] [place] [address]- 3589 Dec, [facility] [place] [facility] [address] [id number] [place] [address]- 5039 Dec, [facility] [place] [facility] [address] [id number] [place] [address]- 8744 Oct, [facility] [address] [facility] [id number] [place] [address]- 4638 May, [facility] [address] [facility] [id number] [address]- 4906 May, [facility] [address] [facility] [id number] [address]- 0416 May, [facility] [address] [facility] [id number], [place] [address]- 3067 Dec, IMMUNIZATIONS No Known Immunizations SOCIAL HISTORY Never Assessed REASON FOR VISIT PALS-aristada PLAN OF CARE VITAL SIGNS MEDICATIONS Medication Instructions Dosage Frequency Start Date End Date Duration Status Aristada 882 MG/3.2ML Intramuscular every month 3.2 ml Apr, 90 days Active RESULTS No Results PROCEDURES [...] Surgical History Tubalization Hospitalization History [facility] 12/2014 Hospitalization History Obstructive Airway Disease, Mood disorder, cough-[facility] 07/02/15 Hospitalization History Bronchitis- [facility] 06/2016
--- OUTSIDE RECORDS SUMMARY | 2018-02-03 09:10 | XMS REPORT ---
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 Name Role Phone MARYSOL CANSECO Unavailable PROBLEMS Type Condition ICD9-CM Code ANA09-TW Code Onset Dates Condition Status SNOMED Code Problem Mixed hyperlipidemia E78.2 Active 731433255 Problem Bipolar affective disorder, currently manic, mild F31.11 Active 953509256 Problem Chronic fatigue R53.82 Active 75333379 Problem COPD exacerbation J44.1 Active 725278114 Problem Other chronic pain G89.29 Active 65664077 Problem Chronic obstructive pulmonary disease, unspecified COPD type J44.9 Active 44719450 Problem Slow transit constipation K59.01 Active 79229074 Problem Bipolar disorder, in partial remission, most recent episode mixed F31.77 Active 54542498 Problem Bipolar disorder, current episode mixed, mild F31.61 Active 554067931 Problem Bipolar II disorder F31.81 Active 14574672 Problem History of renal insufficiency syndrome Z87.448 Active 388285110 Problem Pharyngeal dysphagia R13.13 Active [id number] Problem Post-traumatic stress disorder, chronic F43.12 Active 16666263 Problem Confusion R41.0 Active 080728579 Problem Memory change R41.3 Active 262760676 Problem Dizziness R42 Active 733464743 ALLERGIES No Information ENCOUNTERS Encounter Location Date Diagnosis [facility] [address] [address] Nov, [facility] [address] [place] [address] 43978- 9177 Nov, [facility] [address] [address] 6268 Nov, [facility] [address] [place] [address] 79453- 9268 Oct, [facility] [id number] [place] [address] 45301 -3370 Oct, Scabies B86 [facility] [id number] [place] [address] 94907- 1753 Oct, Bipolar disorder, in partial remission, most recent episode mixed F31.77 [facility] [id number] [place] [address] 53740- 3017 Oct, [facility] [id number] [place] [address] 08852- 7428 Oct, Bipolar II disorder F31.81 and Post-traumatic stress disorder, chronic F43.12 [facility] [id number] [place] [address] 94356 -7277 Oct, Scabies B86 [facility] [id number] [place] [address] 84540- 4382 Oct, [facility] [id number] [place] [address] 07056- 2686 September, Bipolar II disorder F31.81 and Post-traumatic stress disorder, chronic F43.12 [facility] [id number] [place] [address] 59275- 7671 September, Bipolar disorder, in partial remission, most recent episode mixed F31.77 [facility] [id number] [place] [address] 31797- 8211 September, COPD exacerbation J44.1 and Elevated blood pressure reading R03.0 [facility] [id number] [place] [address] 48415- 3480 September, [facility] [address] 58757- 4240 September, Pain in left ankle and joints of left foot M25.572 ; Dermatitis L30.9 and Other chronic pain G89.29 [facility] [id number] [place] [address] 87363- 8042 Aug, Right elbow pain M25.521 and Elevated blood pressure reading R03.0 [facility] [id number] [place] [address] 37962- 6727 Aug, Bipolar disorder, current episode mixed, mild F31.61 and BMI 40.0-44.9, adult Z68.41 [facility] [id number] [place] [address] 00097- 4789 Aug, [facility] [id number] [place] [address] 62128- 8675 Aug, Bipolar II disorder F31.81 and Post-traumatic stress disorder, chronic F43.12 [facility] [id number] [place] [address] 24901- 8068 Jul, Elevated blood pressure reading R03.0 [facility] [id number] [place] [address] 22210- 5997 Jul, Bipolar II disorder F31.81 and Post-traumatic stress disorder, chronic F43.12 [facility] [id number] [place] [address] 91811- 5997 Jul, Bipolar disorder, current episode mixed, mild F31.61 [facility] [id number] [place] [address] 49416 -5706 Jul, Right foot pain M79.671 ; Allergic contact dermatitis, unspecified trigger L23.9 ; Contusion of right foot, initial encounter S90.31XA and BMI 40.0-44.9, adult Z68.41 [facility] [id number] [place] [address] 28274 -7080 Jul, 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 [facility] [id number] [place] [address] 96309- 5984 Jul, [facility] [id number] [place] [address] 36729- 5044 Jul, Bipolar disorder, current episode mixed, mild F31.61 [facility] [id number] [place] [address] 25437- 2667 15 Jul, 2017 Bipolar II disorder F31.81 ; Post-traumatic stress disorder , chronic F43.12 and Memory change R41.3 [facility] [id number] [place] [address] 89806- 7202 14 Jul, 2017 Elevated blood pressure reading R03.0 ; Chronic obstructive pulmonary disease, unspecified COPD type J44.9 ; Long-term use of high-risk medication Z79.899 and Cognitive decline R41.89 [facility] [id number] [place] [address] 06453- 9167 06 Jul, 2017 Elevated blood pressure reading R03.0 [facility] [id number] [place] [address] 35366- 4200 05 Jul, 2017 [facility] [id number] [place] [address] 05357- 7371 01 Jul, 2017 Bipolar II disorder F31.81 ; Post-traumatic stress disorder , chronic F43.12 and Memory change R41.3 [facility] [id number] [place] [address] 35846- 4903 Jun, [facility] [id number] [place] [address] 44668- 4559 18 Jun, 2017 Bipolar II disorder F31.81 ; Post-traumatic stress disorder , chronic F43.12 and Memory change R41.3 [facility] [id number] [place] [address] 12432- 0459 10 Jun, 2017 Localized swelling, mass or lump of neck R22.1 ; Slow transit constipation K59.01 and Elevated blood pressure reading R03.0 [facility] [address] [place] [address] 25457- 1697 Jun, [facility] [id number] [place] [address] 70929- 2315 Jun, Bipolar affective disorder, currently manic, mild F31.11 [facility] [address] [address] May, [facility] [id number] [place] [address] 42018 -6637 May, [facility] [id number] [place] [address] 33876- 5857 May, Bipolar II disorder F31.81 ; Post-traumatic stress disorder , chronic F43.12 and Memory change R41.3 [facility] [id number] [place] [address] 86551- 6300 May, [facility] [id number] [place] [address] 31543- 5672 May, [facility] [id number] [place] [address] 61029- 8629 May, Bipolar affective disorder, currently manic, mild F31.11 [facility] [address] [place] [address] 49764- 2118 May, [facility] [id number] [place] [address] 88452 -2228 May, Localized swelling, mass or lump of neck R22.1 and Localized swelling, mass and lump, head R22.0 [facility] [address] [place] [address] 28348- 9197 Apr, [facility] [address] [address]- 6202 Apr, Bipolar affective disorder, currently manic, mild F31.11 [facility] [id number] [place] [address] 69316- 0655 Apr, Bipolar II disorder F31.81 [facility] [address] [place] [address] 44048- 4330 Apr, [facility] [id number] [place] [address] 31434- 5070 07 Apr, 2017 Bipolar affective disorder, currently manic, mild F31.11 [facility] [address] [place] [address] 40005- 7982 07 Apr, 2017 Actinic keratosis L57.0 [facility] [address] [address]- 8617 06 Apr, 2017 Bipolar affective disorder, currently manic, mild F31.11 [facility] [id number] [place] [address] 93919- 1395 02 Apr, 2017 [facility] [id number] [place] [address] 82435 -7839 Mar, Allergic contact dermatitis, unspecified trigger L23.9 and Right leg pain M79.604 [facility] [address] [place] [address] 63101- 4857 Mar, [facility] [id number] [place] [address] 75462- 4082 Mar, Bipolar II disorder F31.81 ; Post-traumatic stress disorder , chronic F43.12 and Memory change R41.3 [facility] [address] [place] [address] 78227- 2569 04 Mar, 2017 Actinic keratosis L57.0 [facility] [address] [place] [address] 84010- 8033 28 Jan, 2017 Bipolar II disorder F31.81 ; Post-traumatic stress disorder , chronic F43.12 and Memory change R41.3 [facility] [address] [place] [address] 29012- 9349 28 Jan, 2017 Bipolar affective disorder, currently manic, mild F31.11 [facility] [address] [place] [address] 82840- 9180 13 Jan, 2017 Bipolar affective disorder, currently manic, mild F31.11 [facility] [address] [place] [address] 44186- 7837 Jan, Bipolar II disorder F31.81 ; Post-traumatic stress disorder , chronic F43.12 and Memory change R41.3 [facility] [id number] [place] [address]107 Dec, Bipolar II disorder F31.81 ; Post-traumatic stress disorder , chronic F43.12 and Memory change R41.3 [facility] [id number] [place] [address] 33613- 1232 Dec, Bipolar affective disorder, currently manic, mild F31.11 [facility] [id number] [place] [address]- 5478 Dec, Bipolar affective disorder, currently manic, mild F31.11 [facility] [id number] [place] [address] 49270- 2467 Dec, Post-traumatic stress disorder, chronic F43.12 [facility] [id number] [place] [address] 81706- 2150 Dec, Bipolar II disorder F31.81 ; Post-traumatic stress disorder , chronic F43.12 and Memory change R41.3 [facility] [address] [place] [address] 95344- 2010 Dec, Post-traumatic stress disorder, chronic F43.12 [facility] [address] [address]- 0967 Nov, [facility] [id number] [place] [address] 21859- 5598 Nov, Bipolar II disorder F31.81 ; Post-traumatic stress disorder , chronic F43.12 and Memory change R41.3 [facility] [id number] [place] [address] 16297- 5377 Nov, [facility] [address] [place] [address] 39729- 2200 Nov, Post-traumatic stress disorder, chronic F43.12 and Bipolar II disorder F31.81 [facility] [address] [address]- 3857 Nov, Actinic keratosis L57.0 [facility] [address] [place] [address] 60001- 7886 Oct, Bipolar II disorder F31.81 ; Post-traumatic stress disorder , chronic F43.12 and Memory change R41.3 [facility] [address] [place] [address] 58364- 6105 Oct, Post-traumatic stress disorder, chronic F43.12 ; Bipolar II disorder F31.81 and Memory change R41.3 [facility] [id number] [place] [address] 53905- 5629 Oct, Bipolar II disorder F31.81 ; Post-traumatic stress disorder , chronic F43.12 and Memory change R41.3 [facility] [id number] [place] [address] 10604- 1730 Oct, Actinic keratosis L57.0 [facility] [address] [place] [address] 02913- 0062 September, Bipolar II disorder F31.81 ; Post-traumatic stress disorder , chronic F43.12 and Memory change R41.3 [facility] [address] [place] [address] 49295- 8067 September, Bipolar II disorder F31.81 ; Post-traumatic stress disorder , chronic F43.12 and Memory change R41.3 [facility] [address] [address]- 5761 September, Post-traumatic stress disorder, chronic F43.12 ; Bipolar II disorder F31.81 and Memory change R41.3 [facility] [address] [address]- 7532 Jul, Bipolar II disorder F31.81 ; Post-traumatic stress disorder , chronic F43.12 and Memory change R41.3 [facility] [id number] [place] [address] 60064- 9553 Jul, Bipolar II disorder F31.81 ; Post-traumatic stress disorder , chronic F43.12 and Memory change R41.3 [facility] [id number] [place] [address]- 3539 Jul, Bipolar II disorder F31.81 ; Post-traumatic stress disorder , chronic F43.12 and Memory change R41.3 [facility] [id number] [place] [address]- 3892 Jul, Post-traumatic stress disorder, chronic F43.12 ; Bipolar II disorder F31.81 and Memory change R41.[address] 63284- 9928 Jul, Tear of medial meniscus of right knee, unspecified tear type , unspecified whether old or current tear, initial encounter S83.241A [address] 70543- 9669 Jul, Bipolar II disorder F31.81 ; Post-traumatic stress disorder , chronic F43.12 and Memory change R41.[address] 52556- 7863 Jul, Shortness of breath R06.02 ; Mixed hyperlipidemia E78.2 and Chronic fatigue R53.82 [facility] [id number] [place] [address] 06045- 9366 Jul, Bipolar II disorder F31.81 ; Post-traumatic stress disorder , chronic F43.12 and Memory change R41.3 [facility] [id number] [place] [address] 56880- 5553 Jul, [place] [id number] [place] [address]- 8871 Jun, Bipolar II disorder F31.81 ; Post-traumatic stress disorder , chronic F43.12 and Memory change R41.3 [facility] [address] [place] [address]- 9764 Jun, Post-traumatic stress disorder, chronic F43.12 ; Bipolar II disorder F31.81 and Memory change R41.3 [facility] [id number] [place] [address] 64147- 5798 Jun, Right anterior knee pain M25.561 ; Shortness of breath R06.02 and Bronchiolitis J21.9 [facility] [id number] [place] [address] 45027- 9879 Jun, [facility] [id number] [place] [address] 57092- 8189 Jun, Bipolar II disorder F31.81 ; Post-traumatic stress disorder , chronic F43.12 and Memory change R41.3 [facility] [id number] [place] [address] 48524- 6386 Jun, [facility] [id number] [place] [address] 12557- 1379 Jun, Bipolar II disorder F31.81 ; Post-traumatic stress disorder , chronic F43.12 and Memory change R41.3 [facility] [id number] [place] [address] 10244- 3117 May, [facility] [id number] [place] [address] 47181- 8687 May, [facility] [id number] [place] [address] 83655- 0800 May, [facility] [id number] [place] [address] 62588- 1063 May, Right anterior knee pain M25.561 ; Cough R05 ; Skin lesion of right arm L98.9 and Lesion of skin of face L98.9 [facility] [address] [place] [address] 44524- 8055 May, [facility] [id number] [place] [address] 03638- 6463 May, Post-traumatic stress disorder, chronic F43.12 ; Memory change R41.3 and Bipolar I disorder, most recent episode manic F31.10 [facility] [id number] [place] [address] 09859- 9790 May, [facility] [address] [place] [address] 35560- 7449 May, Right anterior knee pain M25.561 [facility] [id number] [place] [address] 49812- 2570 May, [facility] [id number] [place] [address] 75633- 4783 Apr, Bipolar II disorder F31.81 ; Post-traumatic stress disorder , chronic F43.12 and Memory change R41.3 [facility] [id number] [place] [address] 28060- 7479 Apr, Bipolar II disorder F31.81 ; Post-traumatic stress disorder , chronic F43.12 and Memory change R41.3 [facility] [id number] [place] [address] 93131- 8140 Apr, Post-traumatic stress disorder, chronic F43.12 ; Bipolar II disorder F31.81 and Memory change R41.3 [facility] [id number] [place] [address] 55482- 5770 Mar, Bipolar II disorder F31.81 ; Post-traumatic stress disorder , chronic F43.12 and Memory change R41.3 [facility] [address] [place] [address] 34052- 5449 Mar, Memory change R41.3 ; Confusion R41.0 and Dizziness R42 [place] [id number] [place] [address] 50409- 5435 Mar, Memory change R41.3 ; Encounter for immunization Z23 and Fatigue, unspecified type R53.83 [facility] [id number] [place] [address] 41383- 4944 Mar, Bipolar II disorder F31.81 ; Post-traumatic stress disorder , chronic F43.12 and Memory change R41.3 [facility] [id number] [place] [address] 12778- 8837 Jan, Bipolar II disorder F31.81 ; Post-traumatic stress disorder , chronic F43.12 and Memory change R41.3 [facility] [id number] [place] [address] 84113- 2929 Jan, Post-traumatic stress disorder, chronic F43.12 ; Bipolar II disorder F31.81 ; Anxiety disorder, unspecified F41.9 and Memory change R41.3 [facility] [id number] [place] [address] 06875- 6732 15 Feb, 2016 Bipolar II disorder F31.81 ; Post-traumatic stress disorder , chronic F43.12 and Memory change R41.3 [facility] [id number] [place] [address] 56544- 8795 Dec, Bipolar II disorder F31.81 ; Post-traumatic stress disorder , chronic F43.12 and Memory change R41.3 [facility] [id number] [place] [address] 22518- 6799 Dec, Memory loss R41.3 [facility] [id number] [place] [address] 37973- 2045 Dec, Bipolar II disorder F31.81 ; Post-traumatic stress disorder , chronic F43.12 and Memory change R41.3 [facility] [address] [place] [address] 77326- 2019 Nov, Bipolar II disorder F31.81 and Post-traumatic stress disorder, chronic F43.12 [facility] [id number] [place] [address] 92919- 0142 Nov, Bipolar II disorder F31.81 ; Post-traumatic stress disorder , chronic F43.12 and Memory change R41.3 [facility] [id number] [place] [address] 30916- 1952 Oct, Post-traumatic stress disorder, chronic F43.12 and Bipolar disorder, unspecified F31.9 [facility] [address] [place] [address] 70749- 8643 Oct, Bipolar II disorder F31.81 ; Post-traumatic stress disorder , chronic F43.12 and Memory change R41.3 [facility] [address] [place] [address] [id number] Oct, Dental examination Z01.20 [facility] [id number] [place] [address] 91374- 1492 September, Bipolar II disorder F31.81 ; Post-traumatic stress disorder , chronic F43.12 and Memory change R41.3 [facility] [address] [place] [address] 49394- 1627 Aug, Bipolar II disorder F31.81 and Post-traumatic stress disorder, chronic F43.12 [facility] [address] [place] [address] 22203828- 9179 Aug, Bipolar II disorder F31.81 and Post-traumatic stress disorder, chronic F43.12 [facility] [address] [place] [address] [phone]- 1894 Jul, Bipolar II disorder F31.81 and Post-traumatic stress disorder, chronic F43.12 [facility] [address] [place] [address] 03955- 5334 Jul, [facility] [address] [place] [address] 45072 2546 Jul, [facility] [id number] [place] [address] 14424- 4150 Jul, Post-traumatic stress disorder, chronic F43.12 and Bipolar disorder, unspecified F31.9 [facility] [address] [place] [address] 70613- 6569 Jun, Bipolar II disorder F31.81 and Post-traumatic stress disorder, chronic F43.12 [facility] [address] [place] [address] 39617- 9755 Jun, Post-traumatic stress disorder, chronic F43.12 and Bipolar disorder, unspecified F31.9 [facility] [id number] [place] [address] 81189- 8448 Jun, [facility] [id number] [place] [address] 91978- 4485 Jun, Pharyngeal dysphagia R13.13 ; Hoarseness R49.0 and Cough R05 [facility] [id number] [place] [address] 147816- 4072 Jun, Post-traumatic stress disorder, chronic F43.12 and Bipolar disorder, unspecified F31.9 [facility] [id number] [place] [address] 97592- 5351 May, Cough R05 [facility] [address] 77190- 9469 30 May, 2015 Post-traumatic stress disorder, chronic F43.12 and Bipolar disorder, unspecified F31.9 [facility] [id number] [place] [address] 82041- 5730 May, Cough R05 [facility] [id number] [place] [address] 87427- 4715 May, [facility] [id number] [place] [address] [id number] May, Dental examination Z01.20 [facility] [address] [place] [address] 27159- 7157 15 May, 2015 Bipolar II disorder F31.81 and Post-traumatic stress disorder, chronic F43.12 [facility] [address] [place] [address] 35704- 9989 14 May, 2015 [facility] [id number] [place] [address] 66452- 4430 14 May, 2015 Bipolar II disorder F31.81 and Anxiety disorder, unspecified F41.9 [facility] [id number] [place] [address] 94067- 4416 10 May, 2015 Memory change R41.3 and History of renal insufficiency syndrome Z87.448 [facility] [id number] [place] [address] 96516- 2406 03 May, 2015 Memory change R41.3 ; Dry mouth R68.2 and History of renal insufficiency syndrome Z87.448 [facility] [id number] [place] [address] 92751- 5525 May, Bipolar II disorder F31.81 and Post-traumatic stress disorder, chronic F43.12 [facility] [id number] [place] [address] 28177- 1773 Mar, Bipolar disorder, unspecified F31.9 and Generalized anxiety disorder F41.1 [address] [address]- 4208 Mar, Bipolar II disorder F31.81 [facility] [id number] [place] [address] 78780- 6887 Mar, Encounter for immunization Z23 [facility] [id number] [place] [address] 59468- 7755 Mar, [facility] [id number] [place] [address] 27682- 0340 Mar, Bipolar II disorder F31.81 [facility] [id number] [place] [address] 14924- 5864 Mar, [facility] [id number] [place] [address] 59543- 0262 Jan, Bipolar disorder, unspecified 296.80 and Anxiety disorder 300.00 [facility] [id number] [place] [address] 09820- 0982 Jan, [facility] [address] 95182- 0994 Jan, Bipolar disorder, unspecified 296.80 and Anxiety disorder 300.00 [facility] [id number] [place] [address] 53269- 3588 Dec, Bipolar disorder, unspecified 296.80 and Anxiety disorder 300.00 [facility] [id number] [place] [address] 00258- 2240 Dec, [facility] [address] 70309- 3135 Dec, Bipolar disorder, unspecified 296.80 and Anxiety disorder 300.00 [facility] [id number] [place] [address] 056359- 3389 Nov, Bipolar disorder, unspecified 296.80 and Anxiety disorder 300.00 [facility] [id number] [place] [address] 12733- 6802 Oct, Bipolar disorder, unspecified 296.80 and Anxiety disorder 300.00 [facility] [id number] [place] [address] 04030- 5901 Oct, Anxiety 300.00 and Bipolar disorder, unspecified 296.80 [facility] [id number] [place] [address] 48983- 1702 September, Bipolar disorder, unspecified 296.80 and Anxiety disorder 300.00 [facility] [id number] [place] [address] 70850- 3573 September, [facility] [id number] [place] [address] 39960- 3897 Aug, Cough 786.2 [facility] [id number] [place] [address] 77918- 0943 Aug, [facility] [id number] [place] [address] [id number] 1393 Aug, [facility] [id number] [place] [address] 37320- 4915 Jul, [facility] [address] [id number] [place] [address]- 2693 Jul, [facility] [place] [facility] [address] [id number] [place] [address]- 5966 Jul, [facility] [place] [facility] [address] [id number] [place] [address]- 7589 Jul, [facility] [place] [facility] [address] [id number] [place] [address]- 5116 Jul, [facility] [place] [facility] [address] [id number] [place] [address]- 2859 Jul, [facility] [place] [facility] [address] [id number] [place] [address]- 3105 Jun, [facility] [place] [facility] [address] [id number] [place] [address]- 5711 Jun, [facility] [place] [facility] [address] [id number] [place] [address]- 7692 Jun, [facility] [place] [facility] [address] [id number] [place] [address]- 4312 Jun, [facility] [place] [facility] [address] [id number] [place] [address]- 6763 May, [facility] [place] [facility] [address] [id number] [place] [address]- 8043 May, [facility] [place] [facility] [address] [id number] [place] [address]- 5382 May, [facility] [place] [facility] [address] [id number] [place] [address]- 0443 May, [facility] [place] [facility] [address] [id number] [place] [address]- 5132 Apr, [facility] [place] [facility] [address] [id number] [place] [address]- 9142 03 Apr, 2014 [facility] [place] [facility] [address] [id number] [place] [address]- 4593 Mar, [facility] [place] [facility] [address] [id number] [place] [address]- 1848 Mar, [facility] [place] [facility] [address] [id number] [place] [address]- 6393 Mar, [facility] [place] [facility] [address] [id number] [place] [address]- 1429 Mar, [facility] [place] [facility] [address] [id number] [place] [address]- 9417 Mar, [facility] [place] [facility] [address] [id number] [place] [address]- 7865 Mar, [facility] [place] [facility] [address] [id number] [place] [address]- 5912 Jan, 2013 [facility] [place] [facility] [address] [id number] [place] [address]- 5367 Jan, 2013 [facility] [place] [facility] [address] [id number] [place] [address]- 8261 Jan, 2013 [facility] [place] [facility] [address] [id number] [place] [address]- 2424 05 Jan, 2013 [facility] [place] [facility] [address] [id number] [place] [address]- 6637 Jan, [facility] [place] [facility] [address] [id number] [address] 1942 Jan, 2013 [facility] [place] [facility] [address] [id number], [place] [address]- 1791 Dec, [facility] [place] [facility] [address] [id number] [place] [address]- 4435 Dec, [facility] [place] [facility] [address] [id number] [address]- 6078 Dec, [facility] [place] [facility] [address] [id number] [place] [address]- 3876 Dec, [facility] [place] [facility] [address] [id number] [place] [address]- 0576 Dec, [facility] [place] [facility] [address] [id number] [place] [address]- 9148 Dec, [facility] [place] [facility] [address] [id number] [place] [address]- 9594 Nov, [facility] [place] [facility] [address] [id number] [place] [address]- 2597 Nov, [facility] [place] [facility] [address] [id number] [place] [address]- 7676 Nov, [facility] [place] [facility] [address] [id number] [place] [address]- 0199 Nov, [facility] [place] [facility] [address] [id number] [place] [address]- 2406 Nov, [facility] [place] [facility] [address] [id number] [place] [address]- 8056 Nov, [facility] [place] [facility] [address] [id number] [place] [address]- 7362 Nov, [facility] [place] [facility] [address] [id number] [place] [address]- 1459 Nov, [facility] [place] [facility] [address] [id number] [place] [address]- 2386 Nov, [facility] [place] [facility] [address] [id number] [place] [address]- 4847 Nov, [facility] [place] [facility] [address] [id number] [place] [address]- 8379 September, [facility] [place] [facility] [address] [id number] [place] [address]- 0338 September, [facility] [place] [facility] [address] [id number] [place] [address]- 0535 September, [facility] [place] [facility] [address] [id number] [place] [address]- 8134 September, [facility] [place] [facility] [address] [id number] [place] [address]- 9375 September, [facility] [place] [facility] [address] [id number] [place] [address]- 4264 September, [facility] [place] [facility] [address] [id number] [place] 7155 September, [facility] [place] [facility] [address] [id number] [place] [address]- 6740 September, [facility] [place] [facility] [address] [id number] [place] [address]- 2126 Aug, [facility] [place] [facility] [address] [id number] [place] [address]- 0011 Aug, [facility] [place] [facility] [address] [id number] [place] [address]- 8760 Aug, [facility] [place] [facility] [address] [id number] [place] [address]- 6463 Aug, [facility] [place] [facility] [address] [id number] [place] [address]- 6138 Jul, [facility] [place] [facility] [address] [id number] [place] [address]- 1528 Jul, [facility] [place] [facility] [address] [id number] [place] [address]- 0627 Jul, [facility] [place] [facility] [address] [id number] [place] [address]- 2888 Jul, [facility] [place] [facility] [address] [id number] [place] [address]- 5385 Jul, [facility] [place] [facility] [address] [id number] [place] [address]- 7511 Jul, [facility] [place] [facility] [address] [id number] [place] [address]- 9818 Jul, [facility] [place] [facility] [address] [id number] [place] [address]- 1234 Jul, [facility] [address] [id number] [place] [address]- 2346 Jul, [facility] [place] [facility] [address] [id number] [place] [address]- 7106 Jul, [facility] [place] [facility] [address] [id number] [place] [address]- 4656 Jul, [facility] [place] [facility] [address] [id number] [place] [address]- 9888 Jun, [facility] [place] [facility] [address] [id number] [place] [address]- 4883 Jun, [facility] [place] [facility] [address] [id number] [place] [address]- 5572 Jun, [facility] [address] [id number] [place] [address]- 4486 Jun, [facility] [address] [id number] [place] [address]- 4268 May, [facility] [place] [facility] [address] [id number] [place] [address]- 8918 May, [facility] [address] [id number] [place] [address]- 6687 Apr, [facility] [place] [facility] [address] [id number] [place] [address]- 1805 Apr, [facility] [place] [facility] [address] [id number] [place] [address]- 7475 Apr, [facility] [place] [facility] [address] [id number] [place] [address]- 2760 Apr, [facility] [place] [facility] [address] [id number] [place] [address]- 3677 Apr, [facility] [place] [facility] [address] [id number] [place] [address]- 3520 Apr, [facility] [place] [facility] [address] [id number] [place] [address]- 8090 Apr, [facility] [place] [facility] [address] [id number] [place] [address]- 3577 Apr, [facility] [place] [facility] [address] [id number] [place] [address]- 8479 Apr, [facility] [place] [facility] [address] [id number] [place] [address]- 6338 Apr, [facility] [place] [facility] [address] [id number] [place] [address]- 3515 Apr, [facility] [place] [facility] [address] [id number] [place] [address]- 4907 Apr, [facility] [place] [facility] [address] [id number] [place] [address]- 5718 Mar, [facility] [place] [facility] [address] [id number] [place] [address]- 9788 Mar, [facility] [place] [facility] [address] [id number] [place] [address]- 4112 Mar, [facility] [place] [facility] [address] [id number] [place] [address]- 1203 Dec, [facility] [place] [facility] [address] [id number] [place] [address]- 1485 Dec, [facility] [place] [facility] [address] [id number], [place] [address]- 3272 Dec, [facility] [place] [facility] [address] [id number] [place] [address]- 0923 Oct, [facility] [place] [facility] [address] [id number] [place] [address]- 2856 May, [facility] [place] [facility] [address] [id number] [place] [address]- 4788 May, [facility] [place] [facility] [address] [id number], [place] [address]- 4126 May, [facility] [address] [facility] [id number] [place] [address]- 3356 Dec, IMMUNIZATIONS No Known Immunizations SOCIAL HISTORY Never Assessed REASON FOR VISIT CT request PLAN OF CARE VITAL SIGNS MEDICATIONS Unknown [...] Gall Bladder Surgical History Tubalization Hospitalization History [facility] 12/2014 Hospitalization History Obstructive Airway Disease, Mood disorder, cough-H 07/02/15 Hospitalization History Bronchitis- [facility] 06/2016
--- OUTSIDE RECORDS SUMMARY | 2018-02-03 09:13 | XMS REPORT ---
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 Name Role Phone SHANTAL TOWNSEND Unavailable PROBLEMS Type Condition ICD9-CM Code PRV68-ON Code Onset Dates Condition Status SNOMED Code Problem Mixed hyperlipidemia E78.2 Active 853445080 Problem Bipolar affective disorder, currently manic, mild F31.11 Active 930400755 Problem Chronic fatigue R53.82 Active 62476582 Problem COPD exacerbation J44.1 Active 728158271 Problem Other chronic pain G89.29 Active 15852869 Problem Chronic obstructive pulmonary disease, unspecified COPD type J44.9 Active 93636073 Problem Slow transit constipation K59.01 Active 93681407 Problem Bipolar disorder, in partial remission, most recent episode mixed F31.77 Active 25813574 Problem Bipolar disorder, current episode mixed, mild F31.61 Active 498630923 Problem Bipolar II disorder F31.81 Active 79500386 Problem History of renal insufficiency syndrome Z87.448 Active 182268617 Problem Pharyngeal dysphagia R13.13 Active [id number] Problem Post-traumatic stress disorder, chronic F43.12 Active 88808706 Problem Confusion R41.0 Active 233145414 Problem Memory change R41.3 Active 434308732 Problem Dizziness R42 Active 696902796 ALLERGIES No Information ENCOUNTERS Encounter Location Date Diagnosis [facility] [id number], [place] [address] Nov, [facility] [id number] [place] [address] 94685- 1779 Nov, [facility] [address], [place] [address] Nov, [facility] [id number] [place] [address] 04312- 2949 Oct, [facility] [id number] [place] [address] 58304 -2113 Oct, Scabies B86 [facility] [id number] [place] [address] 99881- 7175 Oct, Bipolar disorder, in partial remission, most recent episode mixed F31.77 [facility] [id number] [place] [address] 03447- 8013 Oct, [facility] [id number] [place] [address] 74846- 0013 Oct, Bipolar II disorder F31.81 and Post-traumatic stress disorder, chronic F43.12 [facility] [id number] [place] [address] 81185 -8182 Oct, [facility] [address] [facility] [id number] [place] [address] 66518- 3260 Oct, [facility] [id number] [place] [address] 52749- 5001 September, Bipolar II disorder F31.81 and Post-traumatic stress disorder, chronic F43.12 [facility] [id number] [place] [address] 55215- 2715 September, Bipolar disorder, in partial remission, most recent episode mixed F31.77 [facility] [id number] [place] [address] 35816- 4248 September, COPD exacerbation J44.1 and Elevated blood pressure reading R03.0 [facility] [id number] [place] [address] 08854- 7536 September, [facility] [address] [address]- 8024 September, Pain in left ankle and joints of left foot M25.572 ; Dermatitis L30.9 and Other chronic pain G89.29 [facility] [id number] [place] [address] 63569- 7904 Aug, Right elbow pain M25.521 and Elevated blood pressure reading R03.0 [facility] [id number] [place] [address] 82292- 0303 Aug, Bipolar disorder, current episode mixed, mild F31.61 and BMI 40.0-44.9, adult Z68.41 [facility] [id number] [place] [address] 00769- 1602 Aug, [facility] [id number] [place] [address] 16416- 7384 Aug, Bipolar II disorder F31.81 and Post-traumatic stress disorder, chronic F43.12 [facility] [id number] [place] [address] 08860- 3691 Jul, Elevated blood pressure reading R03.0 [facility] [id number] [place] [address] 02873- 2771 Jul, Bipolar II disorder F31.81 and Post-traumatic stress disorder, chronic F43.12 [facility] [id number] [place] [address] 49171- 1321 Jul, Bipolar disorder, current episode mixed, mild F31.61 [facility] [id number] [place] [address] 78637 -0281 Jul, Right foot pain M79.671 ; Allergic contact dermatitis, unspecified trigger L23.9 ; Contusion of right foot, initial encounter S90.31XA and BMI 40.0-44.9, adult Z68.41 [facility] [id number] [place] [address] 67823 -9876 Jul, 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 [facility] [id number] [place] [address] 09586- 9308 Jul, [facility] [id number] [place] [address] 57157- 8757 Jul, Bipolar disorder, current episode mixed, mild F31.61 [facility] [id number] [place] [address] 84929- 3397 15 Jul, 2017 Bipolar II disorder F31.81 ; Post-traumatic stress disorder , chronic F43.12 and Memory change R41.3 [facility] [id number] [place] [address] 97944- 9443 14 Jul, 2017 Elevated blood pressure reading R03.0 ; Chronic obstructive pulmonary disease, unspecified COPD type J44.9 ; Long-term use of high-risk medication Z79.899 and Cognitive decline R41.89 [facility] [id number] [place] [address] 68362- 2386 06 Jul, 2017 Elevated blood pressure reading R03.0 [facility] [id number] [place] [address] 62393- 7993 05 Jul, 2017 [facility] [id number] [place] [address] 05318- 4290 01 Jul, 2017 Bipolar II disorder F31.81 ; Post-traumatic stress disorder , chronic F43.12 and Memory change R41.3 [facility] [id number] [place] [address] 24253- 1908 Jun, [facility] [id number] [place] [address] 88298- 9191 18 Jun, 2017 Bipolar II disorder F31.81 ; Post-traumatic stress disorder , chronic F43.12 and Memory change R41.3 [facility] [id number] [place] [address] 90428- 1272 10 Jun, 2017 Localized swelling, mass or lump of neck R22.1 ; Slow transit constipation K59.01 and Elevated blood pressure reading R03.0 [place] [address] [place] [address] 96709- 0679 Jun, [facility] [id number] [place] [address] 64484- 6408 Jun, Bipolar affective disorder, currently manic, mild F31.11 [facility] [address], [place] [address] May, [facility] [id number] [place] [address] 93010 -4030 May, [facility] [id number] [place] [address] 10007- 6694 May, Bipolar II disorder F31.81 ; Post-traumatic stress disorder , chronic F43.12 and Memory change R41.3 [facility] [id number] [place] [address] 45065- 6468 May, [facility] [id number] [place] [address] 25882- 7906 May, [facility] [id number] [place] [address] 17363- 9802 May, Bipolar affective disorder, currently manic, mild F31.11 [facility] [address] [place] [address] 07233- 3068 May, [facility] [id number] [place] [address] 75728 -6087 May, Localized swelling, mass or lump of neck R22.1 and Localized swelling, mass and lump, head R22.0 [facility] [id number] [place] [address] 61220- 7791 Apr, [facility] [address], [place] [address] 6270 Apr, Bipolar affective disorder, currently manic, mild F31.11 [facility] [id number] [place] [address] 25052- 3066 Apr, Bipolar II disorder F31.81 [facility] [address] [place] [address] 58561- 6002 Apr, [facility] [id number] [place] [address] 59603- 0665 07 Apr, 2017 Bipolar affective disorder, currently manic, mild F31.11 [facility] [address] [place] [address] 00860- 2730 07 Apr, 2017 Actinic keratosis L57.0 [facility] [address] [address]- 7538 06 Apr, 2017 Bipolar affective disorder, currently manic, mild F31.11 [facility] [id number] [place] [address] 16110- 7485 02 Apr, 2017 [facility] [id number] [place] [address] 31756 -5711 Mar, Allergic contact dermatitis, unspecified trigger L23.9 and Right leg pain M79.604 [facility] [id number] [place] [address] 05067- 6518 Mar, [facility] [id number] [place] [address] 25461- 8319 Mar, Bipolar II disorder F31.81 ; Post-traumatic stress disorder , chronic F43.12 and Memory change R41.3 [facility] [address] [place] [address] 42320- 4843 04 Mar, 2017 Actinic keratosis L57.0 [facility] [address] [place] [address] 41846- 6787 28 Jan, 2017 Bipolar II disorder F31.81 ; Post-traumatic stress disorder , chronic F43.12 and Memory change R41.3 [facility] [address] [place] [address] 02222- 0384 28 Jan, 2017 Bipolar affective disorder, currently manic, mild F31.11 [facility] [address] [place] [address] 91227- 5113 13 Jan, 2017 Bipolar affective disorder, currently manic, mild F31.11 [facility] [address] [place] [address] 06972- 0475 Jan, Bipolar II disorder F31.81 ; Post-traumatic stress disorder , chronic F43.12 and Memory change R41.3 [facility] [id number] [place] [address] 4230 Dec, Bipolar II disorder F31.81 ; Post-traumatic stress disorder , chronic F43.12 and Memory change R41.3 [facility] [id number] [place] [address] 56307- 0038 Dec, Bipolar affective disorder, currently manic, mild F31.11 [facility] [id number] [place], [place] [address] 2327 Dec, Bipolar affective disorder, currently manic, mild F31.11 [facility] [id number] [place] [address] 82925- 7325 Dec, Post-traumatic stress disorder, chronic F43.12 [facility] [id number] [place] [address] 36252- 5865 Dec, Bipolar II disorder F31.81 ; Post-traumatic stress disorder , chronic F43.12 and Memory change R41.3 [facility] [address] [place] [address] 93600- 2766 Dec, Post-traumatic stress disorder, chronic F43.12 [facility] [address], [place] [address]- 8659 Nov, [facility] [id number] [place] [address] 73558- 2214 Nov, Bipolar II disorder F31.81 ; Post-traumatic stress disorder , chronic F43.12 and Memory change R41.3 [facility] [id number] [place] [address] 29103- 8655 Nov, [facility] [id number] [place] [address] 97914- 2929 Nov, Post-traumatic stress disorder, chronic F43.12 and Bipolar II disorder F31.81 [facility] [address], [place] [address]- 5433 Nov, Actinic keratosis L57.0 [facility] [id number] [place] [address] 58642- 4596 Oct, Bipolar II disorder F31.81 ; Post-traumatic stress disorder , chronic F43.12 and Memory change R41.3 [facility] [id number] [place] [address] 96142- 7613 Oct, Post-traumatic stress disorder, chronic F43.12 ; Bipolar II disorder F31.81 and Memory change R41.3 [facility] [id number] [place] [address] 32826- 7528 Oct, Bipolar II disorder F31.81 ; Post-traumatic stress disorder , chronic F43.12 and Memory change R41.3 [facility] [id number] [place] [address] 08787- 4409 Oct, Actinic keratosis L57.0 [facility] [address] [place] [address] 56840- 5158 September, Bipolar II disorder F31.81 ; Post-traumatic stress disorder , chronic F43.12 and Memory change R41.3 [facility] [address] [place] [address] 98868- 2647 September, Bipolar II disorder F31.81 ; Post-traumatic stress disorder , chronic F43.12 and Memory change R41.3 [facility] [address], [place] [address]- 7185 September, Post-traumatic stress disorder, chronic F43.12 ; Bipolar II disorder F31.81 and Memory change R41.3 [facility] [address], [place] [address]- 3054 Jul, Bipolar II disorder F31.81 ; Post-traumatic stress disorder , chronic F43.12 and Memory change R41.3 [facility] [id number] [place] [address] 18338- 4190 Jul, Bipolar II disorder F31.81 ; Post-traumatic stress disorder , chronic F43.12 and Memory change R41.3 [facility] [id number] [place] [address]- 3496 Jul, Bipolar II disorder F31.81 ; Post-traumatic stress disorder , chronic F43.12 and Memory change R41.3 [facility] [id number] [place] [address]- 9683 Jul, Post-traumatic stress disorder, chronic F43.12 ; Bipolar II disorder F31.81 and Memory change R41.[address] 75175- 5197 Jul, Tear of medial meniscus of right knee, unspecified tear type , unspecified whether old or current tear, initial encounter S83.241A [address] 08510- 2954 Jul, Bipolar II disorder F31.81 ; Post-traumatic stress disorder , chronic F43.12 and Memory change R41.[address] 18456- 4651 Jul, Shortness of breath R06.02 ; Mixed hyperlipidemia E78.2 and Chronic fatigue R53.82 [id number] [place] [address] 53608- 6228 Jul, Bipolar II disorder F31.81 ; Post-traumatic stress disorder , chronic F43.12 and Memory change R41.3 [facility] [id number] [place] [address] 13098- 6870 Jul, [id number] [place] [address]- 9234 Jun, Bipolar II disorder F31.81 ; Post-traumatic stress disorder , chronic F43.12 and Memory change R41.3 [facility] [address] [place] [address]- 7177 Jun, Post-traumatic stress disorder, chronic F43.12 ; Bipolar II disorder F31.81 and Memory change R41.3 [facility] [id number] [place] [address] 74652- 1180 Jun, Right anterior knee pain M25.561 ; Shortness of breath R06.02 and Bronchiolitis J21.9 [facility] [id number] [place] [address] 00939- 3853 Jun, [facility] [id number] [place] [address] 23969- 9798 Jun, Bipolar II disorder F31.81 ; Post-traumatic stress disorder , chronic F43.12 and Memory change R41.3 [facility] [id number] [place] [address] 59186- 2479 Jun, [facility] [id number] [place] [address] 05506- 8730 Jun, Bipolar II disorder F31.81 ; Post-traumatic stress disorder , chronic F43.12 and Memory change R41.3 [facility] [id number] [place] [address] 04558- 4433 May, [facility] [id number] [place] [address] 18619- 3854 May, [facility] [id number] [place] [address] 18991- 9663 May, [facility] [id number] [place] [address] 17782- 8389 May, Right anterior knee pain M25.561 ; Cough R05 ; Skin lesion of right arm L98.9 and Lesion of skin of face L98.9 [facility] [address] [place] [address] 16238- 4386 May, [facility] [id number] [place] [address] 62777- 3366 May, Post-traumatic stress disorder, chronic F43.12 ; Memory change R41.3 and Bipolar I disorder, most recent episode manic F31.10 [facility] [id number] [place] [address] 04849- 6324 May, [facility] [address] [place] [address] 42608- 0643 May, Right anterior knee pain M25.561 [facility] [id number] [place] [address] 42660- 6464 May, [facility] [id number] [place] [address] 67631- 4297 Apr, Bipolar II disorder F31.81 ; Post-traumatic stress disorder , chronic F43.12 and Memory change R41.3 [facility] [id number] [place] [address] 41487- 3353 Apr, Bipolar II disorder F31.81 ; Post-traumatic stress disorder , chronic F43.12 and Memory change R41.3 [facility] [id number] [place] [address] 31725- 4911 Apr, Post-traumatic stress disorder, chronic F43.12 ; Bipolar II disorder F31.81 and Memory change R41.3 [facility] [id number] [place] [address] 95663- 2054 Mar, Bipolar II disorder F31.81 ; Post-traumatic stress disorder , chronic F43.12 and Memory change R41.3 [facility] [address] [place] [address] 31664- 6125 Mar, Memory change R41.3 ; Confusion R41.0 and Dizziness R42 [id number] [place] [address] 65990- 2850 Mar, Memory change R41.3 ; Encounter for immunization Z23 and Fatigue, unspecified type R53.83 [facility] [id number] [place] [address] 06200- 9183 Mar, Bipolar II disorder F31.81 ; Post-traumatic stress disorder , chronic F43.12 and Memory change R41.3 [facility] [id number] [place] [address] 97351- 2221 Jan, Bipolar II disorder F31.81 ; Post-traumatic stress disorder , chronic F43.12 and Memory change R41.3 [facility] [id number] [place] [address] 72445- 7086 Jan, Post-traumatic stress disorder, chronic F43.12 ; Bipolar II disorder F31.81 ; Anxiety disorder, unspecified F41.9 and Memory change R41.3 [facility] [id number] [place] [address] 15854- 6903 15 Feb, 2016 Bipolar II disorder F31.81 ; Post-traumatic stress disorder , chronic F43.12 and Memory change R41.3 [facility] [id number] [place] [address] 30716- 7928 Dec, Bipolar II disorder F31.81 ; Post-traumatic stress disorder , chronic F43.12 and Memory change R41.3 [facility] [id number] [place] [address] 63937- 3073 Dec, Memory loss R41.3 [facility] [id number] [place] [address] 95821- 5695 Dec, Bipolar II disorder F31.81 ; Post-traumatic stress disorder , chronic F43.12 and Memory change R41.3 [facility] [address] [place] [address] 49443- 3187 Nov, Bipolar II disorder F31.81 and Post-traumatic stress disorder, chronic F43.12 [facility] [id number] [place] [address] 05888- 4731 Nov, Bipolar II disorder F31.81 ; Post-traumatic stress disorder , chronic F43.12 and Memory change R41.3 [facility] [id number] [place] [address] 15410- 0388 Oct, Post-traumatic stress disorder, chronic F43.12 and Bipolar disorder, unspecified F31.9 [facility] [address] [place] [address] 16195- 9874 Oct, Bipolar II disorder F31.81 ; Post-traumatic stress disorder , chronic F43.12 and Memory change R41.3 [facility] [address] [place] [address] [id number] Oct, Dental examination Z01.20 [facility] [id number] [place] [address] 07493- 8214 September, Bipolar II disorder F31.81 ; Post-traumatic stress disorder , chronic F43.12 and Memory change R41.3 [facility] [address] [place] [address] 51466- 4762 Aug, Bipolar II disorder F31.81 and Post-traumatic stress disorder, chronic F43.12 [facility] [address] [place] [address] 41642892- 7627 Aug, Bipolar II disorder F31.81 and Post-traumatic stress disorder, chronic F43.12 [facility] [address] [place] [address] 39354819- 0446 Jul, Bipolar II disorder F31.81 and Post-traumatic stress disorder, chronic F43.12 [facility] [address] [place] [address] 96113- 0914 Jul, [facility] [id number] [place] [address] 62303 2546 Jul, [facility] [id number] [place] [address] 69959- 9248 Jul, Post-traumatic stress disorder, chronic F43.12 and Bipolar disorder, unspecified F31.9 [facility] [address] [place] [address] 66522- 0548 Jun, Bipolar II disorder F31.81 and Post-traumatic stress disorder, chronic F43.12 [facility] [id number] [place] [address] 63512- 7591 Jun, Post-traumatic stress disorder, chronic F43.12 and Bipolar disorder, unspecified F31.9 [facility] [id number] [place] [address] 13929- 2828 Jun, [facility] [id number] [place] [address] 74857- 9599 Jun, Pharyngeal dysphagia R13.13 ; Hoarseness R49.0 and Cough R05 [facility] [id number] [place] [address] 883469- 7270 Jun, Post-traumatic stress disorder, chronic F43.12 and Bipolar disorder, unspecified F31.9 [facility] [id number] [place] [address] 90903- 4255 May, Cough R05 [facility] [address] 93429- 1589 30 May, 2015 Post-traumatic stress disorder, chronic F43.12 and Bipolar disorder, unspecified F31.9 [facility] [id number] [place] [address] 15566- 8473 May, Cough R05 [facility] [id number] [place] [address] 45916- 4958 May, [facility] [id number] [place] [address] [id number] May, Dental examination Z01.20 [facility] [address] [place] [address] 18957- 3945 15 May, 2015 Bipolar II disorder F31.81 and Post-traumatic stress disorder, chronic F43.12 [facility] [address] [place] [address] [id number] [id number] 14 May, 2015 [facility] [id number] [place] [address] [phone] 14 May, 2015 Bipolar II disorder F31.81 and Anxiety disorder, unspecified F41.9 [facility] [id number] [place] [address] [id number] 10 May, 2015 Memory change R41.3 and History of renal insufficiency syndrome Z87.448 [facility] [id number] [place] [address] [phone] 03 May, 2015 Memory change R41.3 ; Dry mouth R68.2 and History of renal insufficiency syndrome Z87.448 [facility] [address] [id number] [place] [address] 23229- 2245 May, Bipolar II disorder F31.81 and Post-traumatic stress disorder, chronic F43.12 [facility] [id number] [place] [address] 27071- 0725 Mar, Bipolar disorder, unspecified F31.9 and Generalized anxiety disorder F41.1 [place] [address] 8[address]61- 5287 Mar, Bipolar II disorder F31.81 [facility] [id number] [place] [address] 87050- 3636 Mar, Encounter for immunization Z23 [facility] [id number] [place] [address] 43816- 5925 Mar, [facility] [id number] [place] [address] 83554- 8992 Mar, Bipolar II disorder F31.81 [facility] [id number] [place] [address] 46847- 5849 Mar, [facility] [id number] [place] [address] 71769- 4918 Jan, Bipolar disorder, unspecified 296.80 and Anxiety disorder 300.00 [facility] [id number] [place] [address] 46869- 8080 Jan, [facility] [address] 25679- 2603 Jan, Bipolar disorder, unspecified 296.80 and Anxiety disorder 300.00 [facility] [id number] [place] [address] 96649- 4182 Dec, Bipolar disorder, unspecified 296.80 and Anxiety disorder 300.00 [facility] [id number] [place] [address] 54679- 5407 Dec, [facility] [address] 00454- 4269 Dec, Bipolar disorder, unspecified 296.80 and Anxiety disorder 300.00 [facility] [id number] [place] [address] 487099- 1730 Nov, Bipolar disorder, unspecified 296.80 and Anxiety disorder 300.00 [facility] [id number] [place] [address] 92048- 6531 Oct, Bipolar disorder, unspecified 296.80 and Anxiety disorder 300.00 [facility] [id number] [place] [address] 12563- 8951 Oct, Anxiety 300.00 and Bipolar disorder, unspecified 296.80 [facility] [id number] [place] [address] 52447- 9426 September, Bipolar disorder, unspecified 296.80 and Anxiety disorder 300.00 [facility] [id number] [place] [address] 63745- 9986 September, [facility] [id number] [place] [address] 72927- 2520 Aug, Cough 786.2 [facility] [id number] [place] [address] 98405- 7669 Aug, [facility] [id number] [place] [address] [id number]- 4337 Aug, [facility] [id number] [place] [address] 64954- 7640 Jul, [facility] [address] [id number] [place] [address]- 7088 Jul, [facility] [place] [facility] [address] [id number] [place] [address]- 4385 Jul, [facility] [place] [facility] [address] [id number] [place] [address]- 8904 Jul, [facility] [place] [facility] [address] [id number] [place] [address]- 0096 Jul, [facility] [place] [facility] [address] [id number] [place] [address]- 2472 Jul, [facility] [place] [facility] [address] [id number] [place] [address]- 9414 Jun, [facility] [place] [facility] [address] [id number] [place] [address]- 6919 Jun, [facility] [place] [facility] [address] [id number] [place] [address]- 5375 Jun, [facility] [place] [facility] [address] [id number] [place] [address]- 7943 Jun, [facility] [place] [facility] [address] [id number] [place] [address]- 2056 May, [facility] [place] [facility] [address] [id number] [place] [address]- 2982 May, [facility] [place] [facility] [address] [id number] [place] [address]- 7260 May, [facility] [place] [facility] [address] [id number] [place] [address]- 2848 May, [facility] [place] [facility] [address] [id number] [place] [address]- 0473 Apr, [facility] [place] [facility] [address] [id number] [place] [address]- 8037 03 Apr, 2014 [facility] [place] [facility] [address] [id number] [place] [address]- 0007 Mar, [facility] [place] [facility] [address] [id number] [place] [address]- 4469 Mar, [facility] [place] [facility] [address] [id number] [place] [address]- 7867 Mar, [facility] [place] [facility] [address] [id number] [place] [address]- 0165 Mar, [facility] [place] [facility] [address] [id number] [place] [address]- 0320 Mar, [facility] [place] [facility] [address] [id number] [place] [address]- 0660 Mar, [facility] [place] [facility] [address] [id number] [place] [address]- 3726 Jan, 2013 [facility] [place] [facility] [address] [id number] [place] [address]- 3536 Jan, 2013 [facility] [place] [facility] [address] [id number] [place] [address]- 8898 Jan, 2013 [facility] [place] [facility] [address] [id number] [place] [address]- 4327 05 Jan, 2013 [facility] [place] [facility] [address] [id number] [place] [address]- 0472 Jan, [facility] [place] [facility] [address] [id number], [place] [address]- 8083 Jan, 2013 [facility] [place] [facility] [address] [id number], [place] [address]- 2706 Dec, [facility] [place] [facility] [address] [id number] [place] [address]- 2942 Dec, [facility] [place] [facility] [address] [id number], [place] [address]- 6637 Dec, [facility] [place] [facility] [address] [id number] [place] [address]- 6356 Dec, [facility] [place] [facility] [address] [id number] [place] [address]- 5631 Dec, [facility] [place] [facility] [address] [id number] [place] [address]- 4993 Dec, [facility] [place] [facility] [address] [id number] [place] [address]- 5883 Nov, [facility] [place] [facility] [address] [id number] [place] [address]- 7709 Nov, [facility] [place] [facility] [address] [id number] [place] [address]- 4095 Nov, [facility] [place] [facility] [address] [id number] [place] [address]- 8272 Nov, [facility] [place] [facility] [address] [id number] [place] [address]- 7632 Nov, [facility] [place] [facility] [address] [id number] [place] [address]- 8455 Nov, [facility] [place] [facility] [address] [id number] [place] [address]- 2385 Nov, [facility] [place] [facility] [address] [id number] [place] [address]- 0200 Nov, [facility] [place] [facility] [address] [id number] [place] [address]- 1908 Nov, [facility] [place] [facility] [address] [id number] [place] [address]- 1581 Nov, [facility] [place] [facility] [address] [id number] [place] [address]- 5772 September, [facility] [place] [facility] [address] [id number] [place] [address]- 8935 September, [facility] [place] [facility] [address] [id number] [place] [address]- 7277 September, [facility] [place] [facility] [address] [id number] [place] [address]- 2749 September, [facility] [place] [facility] [address] [id number] [place] [address]- 0736 September, [facility] [place] [facility] [address] [id number] [place] [address]- 2852 September, [facility] [place] [facility] [address] [id number] [place] 1623 September, [facility] [place] [facility] [address] [id number] [place] [address]- 2877 September, [facility] [place] [facility] [address] [id number] [place] [address]- 1328 Aug, [facility] [place] [facility] [address] [id number] [place] [address]- 0875 Aug, [facility] [place] [facility] [address] [id number] [place] [address]- 5355 Aug, [facility] [place] [facility] [address] [id number] [place] [address]- 4896 Aug, [facility] [place] [facility] [address] [id number] [place] [address]- 8956 Jul, [facility] [place] [facility] [address] [id number] [place] [address]- 7066 Jul, [facility] [place] [facility] [address] [id number] [place] [address]- 6978 Jul, [facility] [place] [facility] [address] [id number] [place] [address]- 3406 Jul, [facility] [place] [facility] [address] [id number] [place] [address]- 0758 Jul, [facility] [place] [facility] [address] [id number] [place] [address]- 9763 Jul, [facility] [place] [facility] [address] [id number] [place] [address]- 2659 Jul, [facility] [place] [facility] [address] [id number] [place] [address]- 0081 Jul, [facility] [address] [id number] [place] [address]- 7716 Jul, [facility] [place] [facility] [address] [id number] [place] [address]- 7776 Jul, [facility] [place] [facility] [address] [id number] [place] [address]- 8016 Jul, [facility] [place] [facility] [address] [id number] [place] [address]- 4129 Jun, [facility] [place] [facility] [address] [id number] [place] [address]- 7630 Jun, [facility] [place] [facility] [address] [id number] [place] [address]- 8245 Jun, [facility] [address] [id number] [place] [address]- 4169 Jun, [facility] [address] [id number] [place] [address]- 8890 May, [facility] [place] [facility] [address] [id number] [place] [address]- 6025 May, [facility] [address] [id number] [place] [address]- 8032 Apr, [facility] [place] [facility] [address] [id number] [place] [address]- 7878 Apr, [facility] [place] [facility] [address] [id number] [place] [address]- 7588 Apr, [facility] [place] [facility] [address] [id number] [place] [address]- 8849 Apr, [facility] [place] [facility] [address] [id number] [place] [address]- 9890 Apr, [facility] [place] [facility] [address] [id number] [place] [address]- 7782 Apr, [facility] [place] [facility] [address] [id number] [place] [address]- 5768 Apr, [facility] [place] [facility] [address] [id number] [place] [address]- 1836 Apr, [facility] [place] [facility] [address] [id number] [place] [address]- 8396 Apr, [facility] [place] [facility] [address] [id number] [place] [address]- 6626 Apr, [facility] [place] [facility] [address] [id number] [place] [address]- 1372 Apr, [facility] [place] [facility] [address] [id number] [place] [address]- 0697 Apr, [facility] [place] [facility] [address] [id number] [place] [address]- 6531 Mar, [facility] [place] [facility] [address] [id number] [place] [address]- 0704 Mar, [facility] [place] [facility] [address] [id number] [place] [address]- 8604 Mar, [facility] [place] [facility] [address] [id number] [place] [address]- 0637 Dec, [facility] [place] [facility] [address] [id number] [place] [address]- 0029 Dec, [facility] [place] [facility] [address] [id number], [place] [address]- 4402 Dec, [facility] [place] [facility] [address] [id number] [place] [address]- 1941 Oct, [facility] [place] [facility] [address] [id number] [place] [address]- 5915 May, [facility] [place] [facility] [address] [id number] [place] [address]- 9565 May, [facility] [place] [facility] [address] [id number], [place] [address]- 2546 May, [facility] [address] [facility] [id number] [place] [address]- 0266 Dec, IMMUNIZATIONS No Known Immunizations SOCIAL HISTORY Never Assessed REASON FOR VISIT f/u PLAN OF CARE Activity Details Follow Up 2 Weeks Reason: VITAL SIGNS MEDICATIONS Unknown Medications RESULTS No Results PROCEDURES Procedure Date Ordered Result Body Site PENDING SALE TO [facility] VISIT MENTAL [facility]ALTH ESTAB PT Jun 19, 2017 Psychotherapy, patient &/family, 45 minutes, established patient Jun 19, 2017 INSTRUCTIONS MEDICATIONS ADMINISTERED No Known Medications [...] Gall Bladder Surgical History Tubalization Hospitalization History [facility] 12/2014 Hospitalization History Obstructive Airway Disease, Mood disorder, cough-[facility] 07/02/15 Hospitalization History Bronchitis- [facility] 06/2016
--- OUTSIDE RECORDS SUMMARY | 2018-02-03 09:14 | XMS REPORT ---
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 Name Role Phone SHANTAL TOWNSEND Unavailable PROBLEMS Type Condition ICD9-CM Code DWM55-LY Code Onset Dates Condition Status SNOMED Code Problem Mixed hyperlipidemia E78.2 Active 090845197 Problem Bipolar affective disorder, currently manic, mild F31.11 Active 190084691 Problem Chronic fatigue R53.82 Active 97888324 Problem COPD exacerbation J44.1 Active 505161493 Problem Other chronic pain G89.29 Active 51645887 Problem Chronic obstructive pulmonary disease, unspecified COPD type J44.9 Active 58281552 Problem Slow transit constipation K59.01 Active 49382707 Problem Bipolar disorder, in partial remission, most recent episode mixed F31.77 Active 80108729 Problem Bipolar disorder, current episode mixed, mild F31.61 Active 470083311 Problem Bipolar II disorder F31.81 Active 02373445 Problem History of renal insufficiency syndrome Z87.448 Active 826116650 Problem Pharyngeal dysphagia R13.13 Active [id number] Problem Post-traumatic stress disorder, chronic F43.12 Active 30004634 Problem Confusion R41.0 Active 018049949 Problem Memory change R41.3 Active 247082501 Problem Dizziness R42 Active 522638830 ALLERGIES No Information ENCOUNTERS Encounter Location Date Diagnosis [facility] [id number] [address] Nov, [facility] [id number] [place] [address] 95223- 6244 Oct, [facility] [address], [place] [address] 8[address] Oct, [facility] [address] [place] [address] 06451- 6469 Oct, [facility] [id number] [place] [address] 22850- 4540 Oct, [facility] [id number] [place] [address] 15330 -4915 Oct, [facility] B[facility] [id number] [place] [address] 93333- 6635 Oct, [place] [id number] [place] [address] 75468- 0591 September, Bipolar II disorder F31.81 and Post-traumatic stress disorder, chronic F43.12 [place] [id number] [place] [address] 07174- 9241 September, Bipolar disorder, in partial remission, most recent episode mixed F31.77 [place] [id number] [place] [address] 58937- 7924 September, COPD exacerbation J44.1 and Elevated blood pressure reading R03.0 [place] [id number] [place] [address] 40948- 5887 September, [place] [id number] [place] [address] 51316- 1550 September, Pain in left ankle and joints of left foot M25.572 ; Dermatitis L30.9 and Other chronic pain G89.29 [place] [id number] [place] [address] 45193- 4450 Aug, Right elbow pain M25.521 and Elevated blood pressure reading R03.0 [place] [id number] [place] [address] 47172- 4822 Aug, Bipolar disorder, current episode mixed, mild F31.61 and BMI 40.0-44.9, adult Z68.41 [place] [id number] [place] [address] 92439- 2789 Aug, [place] [address] [place] [address] 8[address] 05 Aug, 2017 Bipolar II disorder F31.81 and Post-traumatic stress disorder, chronic F43.12 [place] [id number] [place] [address] 08986- 5506 26 Jul, 2017 Elevated blood pressure reading R03.0 [place] [address] 25301- 8046 Jul, Bipolar II disorder F31.81 and Post-traumatic stress disorder, chronic F43.12 [place] [address] 35602- 3460 Jul, Bipolar disorder, current episode mixed, mild F31.61 [facility] [place] [id number] [place] [address] 63224 -0733 Jul, Right foot pain M79.671 ; Allergic contact dermatitis, unspecified trigger L23.9 ; Contusion of right foot, initial encounter S90.31XA and BMI 40.0-44.9, adult Z68.41 [facility] [place] [address] 85713 -0826 Jul, 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 [place] [id number] [place] [address] 65390- 1604 22 Jul, 2017 [place] [id number] [place] [address] 73122- 3179 15 Jul, 2017 Bipolar disorder, current episode mixed, mild F31.61 [place] [id number] [place] [address] 63077- 0223 15 Jul, 2017 Bipolar II disorder F31.81 ; Post-traumatic stress disorder , chronic F43.12 and Memory change R41.3 [place] [id number] [place] [address] 17976- 4954 14 Jul, 2017 Elevated blood pressure reading R03.0 ; Chronic obstructive pulmonary disease, unspecified COPD type J44.9 ; Long-term use of high-risk medication Z79.899 and Cognitive decline R41.89 [facility] [address] [place] [address] 09562- 9252 06 Jul, 2017 Elevated blood pressure reading R03.0 [facility] [id number] [place] [address] 32870- 9987 05 Jul, 2017 [facility] [id number] [place] [address] 96918- 8186 01 Jul, 2017 Bipolar II disorder F31.81 ; Post-traumatic stress disorder , chronic F43.12 and Memory change R41.3 [place] [id number] [place] [address] 02572- 9204 Jun, [place] [id number] [place] [address] 87958- 3144 18 Jun, 2017 Bipolar II disorder F31.81 ; Post-traumatic stress disorder , chronic F43.12 and Memory change R41.3 [place] [id number] [place] [address] 45926- 9029 10 Jun, 2017 Localized swelling, mass or lump of neck R22.1 ; Slow transit constipation K59.01 and Elevated blood pressure reading R03.0 [place] [address] [place] [address] 70384- 5548 Jun, [place] [id number] [place] [address] 12726- 3002 Jun, Bipolar affective disorder, currently manic, mild F31.11 [facility] [address] [place] [address] 92985 -5825 May, [facility] [id number] [place] [address] 08543 -9105 14 May, 2017 [facility] [id number] [place] [address] 80998- 1777 13 May, 2017 Bipolar II disorder F31.81 ; Post-traumatic stress disorder , chronic F43.12 and Memory change R41.3 [facility] [address] [address] 8320 May, [facility] [id number] [place] [address] 79958- 3417 May, [facility] [id number] [place] [address] 79207- 4044 May, Bipolar affective disorder, currently manic, mild F31.11 [facility] [id number] [place] [address] 63194- 6381 May, [facility] [address] [place] [address] 40423 -7518 May, Localized swelling, mass or lump of neck R22.1 and Localized swelling, mass and lump, head R22.0 [facility] [id number] [place] [address] 65601- 3364 Apr, [facility] [id number] [place] [address] 39875- 2171 Apr, Bipolar affective disorder, currently manic, mild F31.11 [facility] [id number] [place] [address] 42368- 6539 Apr, Bipolar II disorder F31.81 [facility] [address] [place] [address] 03955- 0371 Apr, [facility] [id number] [place] [address] 98071- 3271 Apr, Bipolar affective disorder, currently manic, mild F31.11 [facility] [address] [place] [address] 12703- 6544 Apr, Actinic keratosis L57.0 [facility] [id number] [place] [address] 16857- 8309 Apr, Bipolar affective disorder, currently manic, mild F31.11 [facility] [id number] [place] [address] 30425- 6460 Apr, [facility] [address] [place] [address] Mar, Allergic contact dermatitis, unspecified trigger L23.9 and Right leg pain M79.604 [facility] [address] [address]- 4776 Mar, [facility] [id number] [place] [address] 29980- 3650 Mar, Bipolar II disorder F31.81 ; Post-traumatic stress disorder , chronic F43.12 and Memory change R41.3 [facility] [id number] [place] [address] 07991- 1043 04 Mar, 2017 Actinic keratosis L57.0 [facility] [id number] [place] [address] 40282- 9607 28 Jan, 2017 Bipolar II disorder F31.81 ; Post-traumatic stress disorder , chronic F43.12 and Memory change R41.3 [facility] [address] [place] [address] 19036- 7586 28 Jan, 2017 Bipolar affective disorder, currently manic, mild F31.11 [facility] [address] [place] [address] 22616- 0866 13 Jan, 2017 Bipolar affective disorder, currently manic, mild F31.11 [facility] [address] [place] [address] 96470- 9927 07 Jan, 2017 Bipolar II disorder F31.81 ; Post-traumatic stress disorder , chronic F43.12 and Memory change R41.3 [facility] [id number] [place] [address] 39559- 3140 Dec, Bipolar II disorder F31.81 ; Post-traumatic stress disorder , chronic F43.12 and Memory change R41.3 [facility] [address] [place] [address]- 0697 Dec, Bipolar affective disorder, currently manic, mild F31.11 [facility] [address] [address]- 3113 Dec, Bipolar affective disorder, currently manic, mild F31.11 [facility] [id number] [place] [address] 81514- 8796 Dec, Post-traumatic stress disorder, chronic F43.12 [facility] [id number] [place] [address] 69460- 8576 Dec, Bipolar II disorder F31.81 ; Post-traumatic stress disorder , chronic F43.12 and Memory change R41.3 [facility] [id number] [place] [address] 319046- 6975 Dec, Post-traumatic stress disorder, chronic F43.12 [facility] [id number] [place] [address] 98711- 4239 Nov, [facility] [id number] [place] [address] 62218- 5833 Nov, Bipolar II disorder F31.81 ; Post-traumatic stress disorder , chronic F43.12 and Memory change R41.3 [facility] [id number] [place] [address] 96420- 2898 Nov, [facility] [id number] [place] [address] 15760- 4546 Nov, Post-traumatic stress disorder, chronic F43.12 and Bipolar II disorder F31.81 [facility] [address] [place] [address] 74552- 2698 Nov, Actinic keratosis L57.0 [facility] [id number] [place] [address] 48388- 0476 Oct, Bipolar II disorder F31.81 ; Post-traumatic stress disorder , chronic F43.12 and Memory change R41.3 [facility] [address] [place] [address] 31395- 2686 Oct, Post-traumatic stress disorder, chronic F43.12 ; Bipolar II disorder F31.81 and Memory change R41.3 [facility] [address] [address]- 7815 Oct, Bipolar II disorder F31.81 ; Post-traumatic stress disorder , chronic F43.12 and Memory change R41.3 [facility] [address] [place] [address]- 3831 Oct, Actinic keratosis L57.0 [facility] [id number] [place] [address] 37575- 0016 September, Bipolar II disorder F31.81 ; Post-traumatic stress disorder , chronic F43.12 and Memory change R41.3 [place] [address] [place] [address] 69956- 6149 September, Bipolar II disorder F31.81 ; Post-traumatic stress disorder , chronic F43.12 and Memory change R41.3 [place] [address] [place] [address] 08057- 4973 September, Post-traumatic stress disorder, chronic F43.12 ; Bipolar II disorder F31.81 and Memory change R41.3 [place] [address] [place] [address] 44867- 3220 Jul, Bipolar II disorder F31.81 ; Post-traumatic stress disorder , chronic F43.12 and Memory change R41.3 [place] [address] [address]- 1871 Jul, Bipolar II disorder F31.81 ; Post-traumatic stress disorder , chronic F43.12 and Memory change R41.3 [place] [address] [place] [address] 01037- 9195 Jul, Bipolar II disorder F31.81 ; Post-traumatic stress disorder , chronic F43.12 and Memory change R41.3 [place] [address], [place] [address]- 5072 Jul, Post-traumatic stress disorder, chronic F43.12 ; Bipolar II disorder F31.81 and Memory change R41.3 [place] [id number] [place] [address] 97149- 7654 Jul, Tear of medial meniscus of right knee, unspecified tear type , unspecified whether old or current tear, initial encounter S83.241A [place] [address] [address]- 6814 Jul, Bipolar II disorder F31.81 ; Post-traumatic stress disorder , chronic F43.12 and Memory change R41.3 [place] [address] 18701- 8750 Jul, Shortness of breath R06.02 ; Mixed hyperlipidemia E78.2 and Chronic fatigue R53.82 [place] [address] 90859- 1280 Jul, Bipolar II disorder F31.81 ; Post-traumatic stress disorder , chronic F43.12 and Memory change R41.3 [place] [id number] [place] [address] 81748- 8929 Jul, [place] [id number] [place] [address] 97428- 9420 Jun, Bipolar II disorder F31.81 ; Post-traumatic stress disorder , chronic F43.12 and Memory change R41.3 [place] [id number] [place] [address] 33496- 6663 Jun, Post-traumatic stress disorder, chronic F43.12 ; Bipolar II disorder F31.81 and Memory change R41.3 [place] [address] 65459- 2654 Jun, Right anterior knee pain M25.561 ; Shortness of breath R06.02 and Bronchiolitis J21.9 [place] [id number] [place] [address] 45491- 9257 Jun, [place] [address] [address]- 0269 Jun, Bipolar II disorder F31.81 ; Post-traumatic stress disorder , chronic F43.12 and Memory change R41.3 [facility] [id number] [place] [address] 45180- 4069 Jun, [facility] [id number] [place] [address] 72160- 4855 Jun, Bipolar II disorder F31.81 ; Post-traumatic stress disorder , chronic F43.12 and Memory change R41.3 [facility] [address] [place] [address] 47329- 7606 May, [facility] [id number] [place] [address] 80010- 5013 May, [facility] [id number] [place] [address] 16758- 2289 May, [facility] [id number] [place] [address] 87478- 0271 May, Right anterior knee pain M25.561 ; Cough R05 ; Skin lesion of right arm L98.9 and Lesion of skin of face L98.9 [facility] [address] [place] [address] 59488- 2845 May, [facility] [address] [place] [address] 82430- 7631 May, Post-traumatic stress disorder, chronic F43.12 ; Memory change R41.3 and Bipolar I disorder, most recent episode manic F31.10 [facility] [id number] [place] [address] 89892- 0136 May, [facility] [id number] [place] [address] 64051- 8185 May, Right anterior knee pain M25.561 [facility] [id number] [place] [address] 86800- 5804 May, [place] [address] [place] [address]- 9136 Apr, Bipolar II disorder F31.81 ; Post-traumatic stress disorder , chronic F43.12 and Memory change R41.3 [place] [id number] [place] [address] 94126- 5904 Apr, Bipolar II disorder F31.81 ; Post-traumatic stress disorder , chronic F43.12 and Memory change R41.3 [place] [id number] [place] [address] 83183- 1470 Apr, Post-traumatic stress disorder, chronic F43.12 ; Bipolar II disorder F31.81 and Memory change R41.3 [place] [id number] [place] [address] 00510- 8597 Mar, Bipolar II disorder F31.81 ; Post-traumatic stress disorder , chronic F43.12 and Memory change R41.3 [place] [id number] [place] [address] 37127- 0452 Mar, Memory change R41.3 ; Confusion R41.0 and Dizziness R[id number] [place] [address] 05405- 7534 Mar, Encounter for immunization Z23 ; Memory change R41.3 and Fatigue, unspecified type R53.83 [place] [id number] [place] [address] 50261- 6691 Mar, Bipolar II disorder F31.81 ; Post-traumatic stress disorder , chronic F43.12 and Memory change R41.3 [place] [address] [place] [address] 18918- 3400 Jan, Bipolar II disorder F31.81 ; Post-traumatic stress disorder , chronic F43.12 and Memory change R41.3 [place] [address] [place] [address] 80888- 6933 Jan, Post-traumatic stress disorder, chronic F43.12 ; Bipolar II disorder F31.81 ; Anxiety disorder, unspecified F41.9 and Memory change R41.3 [facility] [address] [place] [address]- 8057 Jan, Bipolar II disorder F31.81 ; Post-traumatic stress disorder , chronic F43.12 and Memory change R41.3 [facility] [address] [place] [address] 93739- 4426 Dec, Bipolar II disorder F31.81 ; Post-traumatic stress disorder , chronic F43.12 and Memory change R41.3 [facility] [address] [place] [address] 91181- 4040 Dec, Memory loss R41.3 [facility] [id number] [place] [address] 97703- 1999 Dec, Bipolar II disorder F31.81 ; Post-traumatic stress disorder , chronic F43.12 and Memory change R41.3 [facility] [address] [place] [address] 27909- 2192 Nov, Bipolar II disorder F31.81 and Post-traumatic stress disorder, chronic F43.12 [facility] [address] [place] [address] 28334- 9789 Nov, Bipolar II disorder F31.81 ; Post-traumatic stress disorder , chronic F43.12 and Memory change R41.3 [facility] [id number] [place] [address] 51788- 2555 Oct, Post-traumatic stress disorder, chronic F43.12 and Bipolar disorder, unspecified F31.9 [facility] [address] [place] [address]- 6648 Oct, Bipolar II disorder F31.81 ; Post-traumatic stress disorder , chronic F43.12 and Memory change R41.3 [facility] [address] [place] [address] Oct, Dental examination Z01.20 [facility] [id number] [place] [address]- 0792 September, Bipolar II disorder F31.81 ; Post-traumatic stress disorder , chronic F43.12 and Memory change R41.3 [facility] [id number] [place], [place] [address] Aug, Bipolar II disorder F31.81 and Post-traumatic stress disorder, chronic F43.12 [place] [id number] [place], [place] [id number] Aug, Bipolar II disorder F31.81 and Post-traumatic stress disorder, chronic F43.12 [place] [address] [address] Jul, Bipolar II disorder F31.81 and Post-traumatic stress disorder, chronic F43.12 [facility] [id number] [place] [id number] Jul, [facility] [id number] [place] [id number] Jul, [facility] [facility] [id number] [place] [id number] Jul, Post-traumatic stress disorder, chronic F43.12 and Bipolar disorder, unspecified F31.9 [place] [address] [id number] [place] [address] 16120- 6848 Jun, Bipolar II disorder F31.81 and Post-traumatic stress disorder, chronic F43.12 [address] [address] [id number] [place] [id number]- [address] Jun, Post-traumatic stress disorder, chronic F43.12 and Bipolar disorder, unspecified F31.9 [place] [id number] [place] [address] Jun, [place] [id number] [place] [address] 51043- 9209 Jun, Pharyngeal dysphagia R13.13 ; Hoarseness R49.0 and Cough R05 [facility] [id number] [place] [address] 39758- 8922 Jun, Post-traumatic stress disorder, chronic F43.12 and Bipolar disorder, unspecified F31.9 [facility] [id number] [place] [address] 79264- 1991 30 May, 2015 Cough R05 [facility] [address] 116652- 3699 30 May, 2015 Post-traumatic stress disorder, chronic F43.12 and Bipolar disorder, unspecified F31.9 [place] [address] 48618- 8366 May, Cough R05 [facility] [address] 93939- 0839 16 May, 2015 [facility] [address] [id number] 16 May, 2015 Dental examination Z01.20 [facility] [address] 27133- 1265 15 May, 2015 Bipolar II disorder F31.81 and Post-traumatic stress disorder, chronic F43.12 [facility] [id number] [place] [address] 89346- 8181 14 May, 2015 [place] [id number] [place] [address] 13394- 0291 14 May, 2015 Bipolar II disorder F31.81 and Anxiety disorder, unspecified F41.9 [facility] [id number] [place] [address] 26680- 6018 10 May, 2015 Memory change R41.3 and History of renal insufficiency syndrome Z87.448 [facility] [id number] [place] [id number]- 7847 03 May, 2015 Memory change R41.3 ; Dry mouth R68.2 and History of renal insufficiency syndrome Z87.448 [facility] [id number] [place] [address] 95678- 9786 May, Bipolar II disorder F31.81 and Post-traumatic stress disorder, chronic F43.12 [facility] [id number] [place] [address] 42828- 8656 Mar, Bipolar disorder, unspecified F31.9 and Generalized anxiety disorder F41.1 [facility] [id number] [place] [address] 58658- 3946 Mar, Bipolar II disorder F31.81 [facility] [id number] [place] [address] 41952- 5265 Mar, Encounter for immunization Z23 [facility] [id number] [place] [address] 17280- 6316 Mar, [facility] [id number] [place] [address] 85659- 6152 Mar, Bipolar II disorder F31.81 [facility] [id number] [place] [address] 00251- 4151 Mar, [facility] [id number] [place] [address] 45230- 4425 Jan, Bipolar disorder, unspecified 296.80 and Anxiety disorder 300.00 [facility] [id number] [place] [address] 22179- 0828 Jan, [facility] [id number] [place] [address] 35340- 8094 Jan, Bipolar disorder, unspecified 296.80 and Anxiety disorder 300.00 [facility] [id number] [place] [address] 49140- 5058 Dec, Bipolar disorder, unspecified 296.80 and Anxiety disorder 300.00 [facility] [id number] [place] [address] 43244- 2796 Dec, [facility] [id number] [place] [address] 52659- 4978 Dec, Bipolar disorder, unspecified 296.80 and Anxiety disorder 300.00 [facility] [address] [address]- 9561 Nov, Bipolar disorder, unspecified 296.80 and Anxiety disorder 300.00 [facility] [id number] 9531 Oct, Bipolar disorder, unspecified 296.80 and Anxiety disorder 300.00 [facility] [id number] [place] [address] 782552- 2212 Oct, Anxiety 300.00 and Bipolar disorder, unspecified 296.80 [facility] [id number] [place] [address] 635030- 4699 September, Bipolar disorder, unspecified 296.80 and Anxiety disorder 300.00 [facility] [id number] [address]- 0728 September, [facility] [id number] [place] [address] 17191- 0024 Aug, Cough 786.2 [facility] [id number] [place] [address] 24215- 7984 Aug, [facility] [id number] [place] [address] 42653- 5305 Aug, [facility] [address] [address]- 2601 Jul, [facility] [address] 3872 Jul, [facility] [address]- 0066 Jul, [facility] [id number] [place] [address] 398541- 8636 Jul, [facility] [address] 2662 Jul, [facility] [id number] [place] [address]- 0136 13 Jul, 2014 [facility] [place] [facility] [address] [id number] [place] [address]- 0859 Jun, [facility] [place] [facility] [address] [id number] [place] [address]- 5748 Jun, [facility] [place] [facility] [address] [id number] [place] [address]- 1501 Jun, [facility] [place] [facility] [address] [id number] [place] [address]- 7694 Jun, [facility] [place] [facility] [address] [id number] [place] [address]- 7502 May, [facility] [place] [facility] [address] [id number] [place] [address]- 4850 May, [facility] [place] [facility] [address] [id number] [place] [address]- 9250 May, [facility] [place] [facility] [address] [id number] [place] [address]- 7884 May, [facility] [place] [facility] [address] [id number] [place] [address]- 0804 Apr, [facility] [place] [facility] [address] [facility] [id number] [place] [address]- 9182 Apr, [facility] [place] [facility] [address] [id number] [place] [address]- 8385 Mar, [facility] [place] [facility] [address] [id number] [place] [address]- 0663 Mar, [facility] [place] [facility] [address] [id number] [place] 2042 Mar, [facility] [place] [facility] [address] [id number] [place] [address]- 9081 Mar, [facility] [place] [facility] [address] [id number] [place] 3024 Mar, [facility] [place] [facility] [address] [id number] [place] [address]- 6104 Mar, [facility] [place] [facility] [address] [id number] [place] [address]- 8662 Jan, 2013 [facility] [place] [facility] [address] [id number] [place] [address]- 2031 Jan, 2013 [facility] [place] [facility] [address] [id number] [place] [address]- 2379 Jan, 2013 [facility] [place] [facility] [address] [id number] [place] [address]- 2956 Jan, 2013 [facility] [place] [facility] [address] [id number] [place] [address]- 2222 Jan, 2013 [facility] [place] [facility] [address] [id number] [place] [address]- 5632 Jan, 2013 [facility] [place] [facility] [address] [id number] [place] [address]- 9625 Dec, [facility] [place] [facility] [address] [id number] [place] [address]- 2494 Dec, [facility] [place] [facility] [address] [id number] [place] [address]- 5297 Dec, [facility] [place] [facility] [address] [id number] [place] [address]- 3079 Dec, [facility] [place] [facility] [address] [id number] [place] [address]- 3791 Dec, [facility] [place] [facility] [address] [id number] [place] [address]- 7352 Dec, [facility] [place] [facility] [address] [id number] [place] [address]- 3015 Nov, [facility] [place] [facility] [address] [id number] [place] [address]- 2039 Nov, [facility] [place] [facility] [address] [id number] [place] [address]- 1566 Nov, [facility] [place] [facility] [address] [id number] [place] [address]- 0101 Nov, [facility] [place] [facility] [address] [id number] [place] 6184 Nov, [facility] [place] [facility] [address] [id number] [place] [address]- 4568 Nov, [facility] [place] [facility] [address] [id number] [place] [address]- 0679 Nov, [facility] [place] [facility] [address] [id number] [place] [address]- 5700 Nov, [facility] [place] [facility] [address] [id number] [place] [address]- 3044 Nov, [facility] [place] [facility] [address] [id number] [place] [address]- 4096 Nov, [facility] [place] [facility] [address] [id number] [place] [address]- 5553 September, [facility] [place] [facility] [address] [id number] [place] [address]- 2126 September, [facility] [place] [facility] [address] [id number] [place] [address]- 8584 September, [facility] [place] [facility] [address] [id number] [place] [address]- 5945 September, [facility] [place] [facility] [address] [id number] [place] [address]- 4643 September, [facility] [place] [facility] [address] [id number] [place] [address]- 2356 September, [facility] [place] [facility] [address] [id number] [place] [address]- 1805 September, [facility] [place] [facility] [address] [id number] [place] 0061 September, [facility] [place] [facility] [address] [id number] [place] [address]- 8659 Aug, [facility] [place] [facility] [address] [id number] [place] [address]- 5254 Aug, [facility] [place] [facility] [address] [id number] [place] [address]- 9293 Aug, [facility] [place] [facility] [address] [id number] [place] [address]- 9625 Aug, [facility] [place] [facility] [address] [id number] [place] [address]- 3599 Jul, [facility] [place] [facility] [address] [id number] [place] [address]- 3489 Jul, [facility] [place] [facility] [address] [facility] [id number] [place] [address]- 0939 Jul, [facility] [place] [facility] [address] [id number] [place] [address]- 1401 Jul, [facility] [place] [facility] [address] [id number] [place] [address]- 1507 18 Jul, 2013 [facility] [place] [facility] [address] [facility] [id number] [place] [address]- 5890 Jul, [facility] [place] [facility] [address] [facility] [id number] [place] [address]- 1098 Jul, [facility] [place] [facility] [address] [facility] [id number], [place] [address]- 0401 Jul, [facility] [place] [facility] [address] [facility] [id number] [place] [address]- 3382 Jul, [facility] [place] [facility] [address] [id number] [place] [address]- 4121 Jul, [facility] [place] [facility] [address] [facility] [id number] [place] [address]- 2702 Jul, [facility] [place] [facility] [address] [facility] [id number], [place] [address]- 3444 Jun, [facility] [address] [id number] [place] [address]- 8528 Jun, [facility] [place] [facility] [address] [id number] [place] [address]- 8615 Jun, [facility] [place] [facility] [address] [id number] [place] [address]- 9974 Jun, [facility] [place] [facility] [address] [id number] [place] [address]- 9271 May, [facility] [place] [facility] [address] [id number] [place] [address]- 5453 May, [facility] [place] [facility] [address] [id number] [place] [address]- 4231 Apr, [facility] [place] [facility] [address] [id number] [place] [address]- 3324 Apr, [facility] [place] [facility] [address] [id number] [place] [address]- 9284 Apr, [facility] [place] [facility] [address] [id number] [place] [address]- 5994 Apr, [facility] [place] [facility] [address] [id number] [place] [address]- 5122 Apr, [facility] [place] [facility] [address] [id number], [place] [address]- 9467 Apr, [facility] [place] [facility] [address] [id number], [place] [address]- 1508 Apr, [facility] [place] [facility] [address] [id number], [place] [address]- 1311 Apr, [facility] [place] [facility] [address] [id number] [place] [address]- 2149 Apr, [facility] [place] [facility] [address] [id number] [place] [address]- 8828 Apr, [facility] [place] [facility] [address], [place] [address]- 1406 Apr, [facility] [address], [place] [address]- 8216 Apr, [facility] [address], [place] [address]- 8546 Mar, [facility] [address], [place] [address]- 1640 Mar, [facility] [address], [place] [address]- 5799 Mar, [facility] [address], [place] [address]- 2199 Dec, [facility] [address]- 7578 Dec, [facility] [address], [place] [address]- 0306 Dec, [facility] [address], [place] [address]- 1595 Oct, [facility] [address]- 7251 May, [facility] [id number] [address]- 4995 May, [facility] [id number], [place] [address]- 4206 May, [facility] [id number], [place] [address]- 6797 Dec, IMMUNIZATIONS No Known Immunizations SOCIAL HISTORY Never Assessed REASON FOR VISIT f/u PLAN OF CARE Activity Details Follow Up 2 Weeks Reason: VITAL SIGNS MEDICATIONS Unknown Medications RESULTS No Results PROCEDURES Procedure Date Ordered Result Body Site [facility] VISIT MENTAL HEALTH ESTAB PT May 14, 2017 Psychotherapy, patient &/family, 45 minutes, established patient May 14, 2017 INSTRUCTIONS MEDICATIONS ADMINISTERED No Known [...] Gall Bladder Surgical History Tubalization Hospitalization History [facility] 12/2014 Hospitalization History Obstructive Airway Disease, Mood disorder, cough-[facility] 07/02/15 Hospitalization History Bronchitis- [facility] 06/2016
--- OUTSIDE RECORDS SUMMARY | 2018-02-03 09:15 | XMS REPORT ---
Author Author AHSAN JEAN BAPTISTE [facility] IN [facility] Address [address] [place] [address] Care Team Providers Care Membership Sales Representative Name Role Phone AHSAN JEAN BAPTISTE Unavailable PROBLEMS Type Condition ICD9-CM Code XBO67-IM Code Onset Dates Condition Status SNOMED Code Problem Mixed hyperlipidemia E78.2 Active 343172018 Problem Bipolar affective disorder, currently manic, mild F31.11 Active 914700706 Problem Chronic fatigue R53.82 Active 29437593 Problem COPD exacerbation J44.1 Active 479239861 Problem Other chronic pain G89.29 Active 24747950 Problem Chronic obstructive pulmonary disease, unspecified COPD type J44.9 Active 90505380 Problem Slow transit constipation K59.01 Active 77036044 Problem Bipolar disorder, in partial remission, most recent episode mixed F31.77 Active 49777294 Problem Bipolar disorder, current episode mixed, mild F31.61 Active 876983987 Problem Bipolar II disorder F31.81 Active 56056883 Problem History of renal insufficiency syndrome Z87.448 Active 154318306 Problem Pharyngeal dysphagia R13.13 Active 77275619025208 Problem Post-traumatic stress disorder, chronic F43.12 Active 27117037 Problem Confusion R41.0 Active 673510237 Problem Memory change R41.3 Active 312662782 Problem Dizziness R42 Active 294151430 ALLERGIES No Information ENCOUNTERS Encounter Location Date Diagnosis [facility] [address] [address] Nov, [facility] [id number] [place] [address] 94599- 2860 Oct, [facility] [id number] [place] [address] 55682- 0945 Oct, [facility] [id number] [place] [address] 20031- 8402 Oct, [facility] [address], [place] [address] Oct, [facility] [id number] [place] [address] 70966 -5014 Oct, [place] [address] [id number] [place] [address] 26964- 1666 Oct, [facility] [id number] [place] [address] 69675- 9691 September, Bipolar II disorder F31.81 and Post-traumatic stress disorder, chronic F43.12 [place] [id number] [place] [address] 03210- 2135 September, Bipolar disorder, in partial remission, most recent episode mixed F31.77 [place] [id number] [place] [address] 94849- 9340 September, COPD exacerbation J44.1 and Elevated blood pressure reading R03.0 [facility] [id number] [place] [address] 49428- 7573 September, [place] [id number] [place] [address] 16939- 0909 September, Pain in left ankle and joints of left foot M25.572 ; Dermatitis L30.9 and Other chronic pain G89.29 [place] [id number] [place] [address] 54723- 2740 Aug, Right elbow pain M25.521 and Elevated blood pressure reading R03.0 [place] [id number] [place] [address] 37345- 4791 Aug, Bipolar disorder, current episode mixed, mild F31.61 and BMI 40.0-44.9, adult Z68.41 [place] [id number] [place] [address] 73507- 5993 Aug, [place] [id number] [place] [address] 23109- 7027 05 Aug, 2017 Bipolar II disorder F31.81 and Post-traumatic stress disorder, chronic F43.12 [place] [id number] [place] [address] 56325- 1104 Jul, Elevated blood pressure reading R03.[address] 78509- 9907 Jul, Bipolar II disorder F31.81 and Post-traumatic stress disorder, chronic F43.12 [place] [address] 60335- 0104 Jul, Bipolar disorder, current episode mixed, mild F31.61 [facility] [place] [id number] [place] [address] 47301 -1821 Jul, Right foot pain M79.671 ; Allergic contact dermatitis, unspecified trigger L23.9 ; Contusion of right foot, initial encounter S90.31XA and BMI 40.0-44.9, adult Z68.41 [facility] [address] 33[address] -3023 Jul, 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 [place] [id number] [place] [address] 99872- 7665 Jul, [address] 75143- 6764 15 Jul, 2017 Bipolar disorder, current episode mixed, mild F31.61 [place] [id number] [place] [address] 84594- 3354 15 Jul, 2017 Bipolar II disorder F31.81 ; Post-traumatic stress disorder , chronic F43.12 and Memory change R41.3 [place] [id number] [place] [address] 97269- 0193 14 Jul, 2017 Elevated blood pressure reading R03.0 ; Chronic obstructive pulmonary disease, unspecified COPD type J44.9 ; Long-term use of high-risk medication Z79.899 and Cognitive decline R41.89 [place] [id number] [place] [address] 54843- 8721 06 Jul, 2017 Elevated blood pressure reading R03.0 [place] [id number] [place] [address] 66923- 3854 05 Jul, 2017 [place] [id number] [place] [address] 09263- 5745 Jul, Bipolar II disorder F31.81 ; Post-traumatic stress disorder , chronic F43.12 and Memory change R41.3 [place] [id number] [place] [address] 23711- 7393 Jun, [place] [id number] [place] [address] 49065- 9732 Jun, Bipolar II disorder F31.81 ; Post-traumatic stress disorder , chronic F43.12 and Memory change R41.3 [place] [id number] [place] [address] 26481- 9259 Jun, Localized swelling, mass or lump of neck R22.1 ; Slow transit constipation K59.01 and Elevated blood pressure reading R03.0 [place] [id number] [place] [address] 88497- 4796 Jun, [place] [id number] [place] [address] 49116- 9474 Jun, Bipolar affective disorder, currently manic, mild F31.11 [facility] [id number] [place] [address] 58835 -2510 May, [facility] [id number] [place] [address] 89552 -6330 14 May, 2017 [facility] [id number] [place] [address] 13602- 0150 13 May, 2017 Bipolar II disorder F31.81 ; Post-traumatic stress disorder , chronic F43.12 and Memory change R41.3 [facility] [id number] [place] [address] 57699- 1957 May, [facility] [id number] [place] [address] 11949- 1556 May, [facility] [id number] [place] [address] 42084- 1976 May, Bipolar affective disorder, currently manic, mild F31.11 [facility] [id number] [place] [address] 93462- 0377 May, [facility] [id number] [place] [address] 18887 -6151 May, Localized swelling, mass or lump of neck R22.1 and Localized swelling, mass and lump, head R22.0 [facility] [id number] [place] [address] 24916- 0479 Apr, [facility] [id number] [place] [address] 60000- 6953 Apr, Bipolar affective disorder, currently manic, mild F31.11 [facility] [id number] [place] [address] 91290- 5976 Apr, Bipolar II disorder F31.81 [facility] [id number] [place] [address] 19290- 1425 Apr, [facility] [id number] [place] [address] 92114- 9969 Apr, Bipolar affective disorder, currently manic, mild F31.11 [facility] [id number] [place] [address] 03810- 2529 Apr, Actinic keratosis L57.0 [facility] [id number] [place] [address] 59456- 8718 Apr, Bipolar affective disorder, currently manic, mild F31.11 [facility] [id number] [place] [address] 98040- 6131 Apr, [facility] [address], [place] [address] Mar, Allergic contact dermatitis, unspecified trigger L23.9 and Right leg pain M79.604 [facility] [address], [place] [address]- 4186 Mar, [facility] [id number] [place] [address] 27930- 8874 Mar, Bipolar II disorder F31.81 ; Post-traumatic stress disorder , chronic F43.12 and Memory change R41.3 [facility] [id number] [place] [address] 57097- 1556 04 Mar, 2017 Actinic keratosis L57.0 [facility] [id number] [place] [address] 77637- 5161 Jan, Bipolar II disorder F31.81 ; Post-traumatic stress disorder , chronic F43.12 and Memory change R41.3 [facility] [id number] [place] [address] 04457- 6597 28 Jan, 2017 Bipolar affective disorder, currently manic, mild F31.11 [facility] [address], [place] [address]- 6561 13 Jan, 2017 Bipolar affective disorder, currently manic, mild F31.11 [facility] [id number] [place] [address] 87883- 8455 07 Jan, 2017 Bipolar II disorder F31.81 ; Post-traumatic stress disorder , chronic F43.12 and Memory change R41.3 [facility] [id number] [place] [address] 84031- 2384 Dec, Bipolar II disorder F31.81 ; Post-traumatic stress disorder , chronic F43.12 and Memory change R41.3 [facility] [address], [place] [address]- 8938 Dec, Bipolar affective disorder, currently manic, mild F31.11 [facility] [address], [place] [address]- 7095 Dec, Bipolar affective disorder, currently manic, mild F31.11 [facility] [address], [place] [address]- 4716 Dec, Post-traumatic stress disorder, chronic F43.12 [facility] [id number] [place] [address] 14361- 4487 Dec, Bipolar II disorder F31.81 ; Post-traumatic stress disorder , chronic F43.12 and Memory change R41.3 [facility] [id number] [place] [address] 376142- 8467 Dec, Post-traumatic stress disorder, chronic F43.12 [facility] [id number] [place] [address] 37821- 3224 Nov, [facility] [id number] [place] [address] 43529- 5565 Nov, Bipolar II disorder F31.81 ; Post-traumatic stress disorder , chronic F43.12 and Memory change R41.3 [facility] [id number] [place] [address] 33268- 5679 Nov, [facility] [id number] [place] [address] 22158- 9947 Nov, Post-traumatic stress disorder, chronic F43.12 and Bipolar II disorder F31.81 [facility] [id number] [place] [address] 16917- 2531 Nov, Actinic keratosis L57.0 [facility] [id number] [place] [address] 55696- 5676 Oct, Bipolar II disorder F31.81 ; Post-traumatic stress disorder , chronic F43.12 and Memory change R41.3 [facility] [id number] [place] [address] 38738- 4817 Oct, Post-traumatic stress disorder, chronic F43.12 ; Bipolar II disorder F31.81 and Memory change R41.3 [place] [id number] [place] [address] 65887- 2425 Oct, Bipolar II disorder F31.81 ; Post-traumatic stress disorder , chronic F43.12 and Memory change R41.3 [place] [id number] [place] [address] 70823- 1551 Oct, Actinic keratosis L57.0 [facility] [id number] [place] [address] 11060- 3246 September, Bipolar II disorder F31.81 ; Post-traumatic stress disorder , chronic F43.12 and Memory change R41.3 [place] [id number] [place] [address] 79124- 8376 September, Bipolar II disorder F31.81 ; Post-traumatic stress disorder , chronic F43.12 and Memory change R41.3 [place] [id number] [place] [address] 13865- 5097 September, Post-traumatic stress disorder, chronic F43.12 ; Bipolar II disorder F31.81 and Memory change R41.3 [place] [id number] [place] [address] 94113- 3416 Jul, Bipolar II disorder F31.81 ; Post-traumatic stress disorder , chronic F43.12 and Memory change R41.3 [place] [id number] [place] [address] 04954- 5798 Jul, Bipolar II disorder F31.81 ; Post-traumatic stress disorder , chronic F43.12 and Memory change R41.3 [place] [id number] [place] [address] 17785- 3915 Jul, Bipolar II disorder F31.81 ; Post-traumatic stress disorder , chronic F43.12 and Memory change R41.3 [place] [id number] [place] [address] 58126- 0480 Jul, Post-traumatic stress disorder, chronic F43.12 ; Bipolar II disorder F31.81 and Memory change R41.3 [place] [id number] [place] [address] 66739- 7991 Jul, Tear of medial meniscus of right knee, unspecified tear type , unspecified whether old or current tear, initial encounter S83.241A [place] [address] 15235- 1778 Jul, Bipolar II disorder F31.81 ; Post-traumatic stress disorder , chronic F43.12 and Memory change R41.3 [place] [address] 25123- 5452 Jul, Shortness of breath R06.02 ; Mixed hyperlipidemia E78.2 and Chronic fatigue R53.82 [place] [address] 60301- 9775 Jul, Bipolar II disorder F31.81 ; Post-traumatic stress disorder , chronic F43.12 and Memory change R41.3 [place] [id number] [place] [address] 29039- 9232 Jul, [place] [address] 69869- 7084 Jun, Bipolar II disorder F31.81 ; Post-traumatic stress disorder , chronic F43.12 and Memory change R41.3 [place] [id number] [place] [address] 16174- 4788 Jun, Post-traumatic stress disorder, chronic F43.12 ; Bipolar II disorder F31.81 and Memory change R41.3 [place] [address] 36612- 8718 Jun, Right anterior knee pain M25.561 ; Shortness of breath R06.02 and Bronchiolitis J21.9 [place] [id number] [place] [address] 29508- 6905 Jun, [facility] [address], [place] [address]- 9857 Jun, Bipolar II disorder F31.81 ; Post-traumatic stress disorder , chronic F43.12 and Memory change R41.3 [facility] [address], [place] [address]- 8776 Jun, [facility] [id number] [place] [address] 32029 2546 Jun, Bipolar II disorder F31.81 ; Post-traumatic stress disorder , chronic F43.12 and Memory change R41.3 [facility] [id number] [place] [address] 21159- 0786 May, [facility] [id number] [place] [address] 98600 2546 May, [facility] [id number] [place] [address] 67811- 1546 May, [facility] [id number] [place] [address] 02249 2547 May, Right anterior knee pain M25.561 ; Cough R05 ; Skin lesion of right arm L98.9 and Lesion of skin of face L98.9 [facility] [address], [place] [address] 2546 May, [facility] [address], [place] [address] 2546 May, Post-traumatic stress disorder, chronic F43.12 ; Memory change R41.3 and Bipolar I disorder, most recent episode manic F31.10 [facility] [id number] [place] [address] 51370 2546 May, [facility] [id number] [place] [address] 10477 2546 May, Right anterior knee pain M25.561 [facility] [id number] [place] [address] 80695- 1829 May, [facility] [address], [place] [address]- 9950 Apr, Bipolar II disorder F31.81 ; Post-traumatic stress disorder , chronic F43.12 and Memory change R41.3 [place] [address], [place] [address]- 0225 Apr, Bipolar II disorder F31.81 ; Post-traumatic stress disorder , chronic F43.12 and Memory change R41.3 [place] [id number] [place] [address] 99160- 8220 Apr, Post-traumatic stress disorder, chronic F43.12 ; Bipolar II disorder F31.81 and Memory change R41.3 [place] [id number] [place] [address] 41763- 8131 Mar, Bipolar II disorder F31.81 ; Post-traumatic stress disorder , chronic F43.12 and Memory change R41.3 [place] [id number] [place] [address] 87707- 0927 Mar, Memory change R41.3 ; Confusion R41.0 and Dizziness R42 [place] [id number] [place] [address] 32794- 2948 Mar, Encounter for immunization Z23 ; Memory change R41.3 and Fatigue, unspecified type R53.83 [place] [id number] [place] [address] 26985- 0530 Mar, Bipolar II disorder F31.81 ; Post-traumatic stress disorder , chronic F43.12 and Memory change R41.3 [place] [id number] [place] [address] 19289- 8982 Jan, Bipolar II disorder F31.81 ; Post-traumatic stress disorder , chronic F43.12 and Memory change R41.3 [place] [address], [place] [address]- 2000 Jan, Post-traumatic stress disorder, chronic F43.12 ; Bipolar II disorder F31.81 ; Anxiety disorder, unspecified F41.9 and Memory change R41.3 [facility] [id number] [place] [address] 84147- 9849 Jan, Bipolar II disorder F31.81 ; Post-traumatic stress disorder , chronic F43.12 and Memory change R41.3 [facility] [id number] [place] [address] 20738- 4005 Dec, Bipolar II disorder F31.81 ; Post-traumatic stress disorder , chronic F43.12 and Memory change R41.3 [facility] [id number] [place] [address] 95054- 9519 Dec, Memory loss R41.3 [facility] [id number] [place] [address] 54796- 0780 Dec, Bipolar II disorder F31.81 ; Post-traumatic stress disorder , chronic F43.12 and Memory change R41.3 [facility] [id number] [place] [address] 50772- 2593 Nov, Bipolar II disorder F31.81 and Post-traumatic stress disorder, chronic F43.12 [facility] [id number] [place] [address] 99711- 7855 Nov, Bipolar II disorder F31.81 ; Post-traumatic stress disorder , chronic F43.12 and Memory change R41.3 [facility] [id number] [place] [address] 13283- 9721 Oct, Post-traumatic stress disorder, chronic F43.12 and Bipolar disorder, unspecified F31.9 [facility] [id number] [place] [address] 00476- 7097 Oct, Bipolar II disorder F31.81 ; Post-traumatic stress disorder , chronic F43.12 and Memory change R41.3 [facility] [address] [address] Oct, Dental examination Z01.20 [facility] [id number] [place] [address]- 4576 September, Bipolar II disorder F31.81 ; Post-traumatic stress disorder , chronic F43.12 and Memory change R41.3 [place] [id number] [place] [address]- 7426 Aug, Bipolar II disorder F31.81 and Post-traumatic stress disorder, chronic F43.12 [place] [id number] [place] [address]- 2901 Aug, Bipolar II disorder F31.81 and Post-traumatic stress disorder, chronic F43.12 [place] [id number] [place]- 4233 Jul, Bipolar II disorder F31.81 and Post-traumatic stress disorder, chronic F43.12 [place] [id number] [place] [address] 90124- 3660 16 Jul, 2015 [place] [id number] [place] [address] 846489- 7241 Jul, [place] [id number] [place] [address] 991601- 7907 Jul, Post-traumatic stress disorder, chronic F43.12 and Bipolar disorder, unspecified F31.9 [place] [id number] [place] [address] 97032- 6029 Jun, Bipolar II disorder F31.81 and Post-traumatic stress disorder, chronic F43.12 [place] [id number] [place] [address]- 3295 Jun, Post-traumatic stress disorder, chronic F43.12 and Bipolar disorder, unspecified F31.9 [place] [id number] [place] [address]- 7342 Jun, [place] [id number] [place] [address]- [address] Jun, Pharyngeal dysphagia R13.13 ; Hoarseness R49.0 and Cough R05 [facility] [id number] [place] [address]- [address] Jun, Post-traumatic stress disorder, chronic F43.12 and Bipolar disorder, unspecified F31.9 [facility] [id number] [place] [address]91- 7498 30 May, 2015 Cough R05 [facility] [address] [id number]- [address] 30 May, 2015 Post-traumatic stress disorder, chronic F43.12 and Bipolar disorder, unspecified F31.9 [place] [address] [address]- [address] May, Cough R05 [facility] [id number] [place] [address] 53738- 3923 16 May, 2015 [facility] [address] [id number] May, Dental examination Z01.20 [facility] [address] [address] 15 May, 2015 Bipolar II disorder F31.81 and Post-traumatic stress disorder, chronic F43.12 [facility] [id number] [place] [address] [address]- 8185 14 May, 2015 [place] [id number] [place] [address] 461812- 7583 14 May, 2015 Bipolar II disorder F31.81 and Anxiety disorder, unspecified F41.9 [facility] [id number] [place] [address] 66169- 0314 10 May, 2015 Memory change R41.3 and History of renal insufficiency syndrome Z87.448 [facility] [id number] [place] [address] 09919- 3698 03 May, 2015 Memory change R41.3 ; Dry mouth R68.2 and History of renal insufficiency syndrome Z87.448 [facility] [id number] [place] [address] 2905 May, Bipolar II disorder F31.81 and Post-traumatic stress disorder, chronic F43.12 [facility] [id number] [place] [address] 53233- 2437 Mar, Bipolar disorder, unspecified F31.9 and Generalized anxiety disorder F41.1 [facility] [id number] [place] [address] 79961- 9719 Mar, Bipolar II disorder F31.81 [facility] [id number] [place] [address] 69538- 6347 Mar, Encounter for immunization Z23 [facility] [address] [address]- 2169 Mar, [facility] [id number] [place] [address] 20289- 3695 Mar, Bipolar II disorder F31.81 [facility] [id number] [place] [address] 35081- 9838 Mar, [facility] [id number] [place] [address] 75644- 0047 Jan, Bipolar disorder, unspecified 296.80 and Anxiety disorder 300.00 [facility] [id number] [place] [address] 46781- 8073 Jan, [facility] [id number] [place] [address] 55798- 5987 Jan, Bipolar disorder, unspecified 296.80 and Anxiety disorder 300.00 [facility] [id number] [place] [address] 86553- 3215 Dec, Bipolar disorder, unspecified 296.80 and Anxiety disorder 300.00 [facility] [id number] [place] [address] 05112- 8390 Dec, [facility] [id number] [place] [address] 21736- 4133 Dec, Bipolar disorder, unspecified 296.80 and Anxiety disorder 300.00 [facility] [address] [address] 6186 Nov, Bipolar disorder, unspecified 296.80 and Anxiety disorder 300.00 [facility] [address] [address] 5226 Oct, Bipolar disorder, unspecified 296.80 and Anxiety disorder 300.00 [facility] [id number] [place] [address] 00147- 5666 Oct, Anxiety 300.00 and Bipolar disorder, unspecified 296.80 [facility] [id number] [place] [address] 92542- 3326 September, Bipolar disorder, unspecified 296.80 and Anxiety disorder 300.00 [facility] [address] [address] 0086 September, [facility] [id number] [place] [address] 99750- 2699 Aug, Cough 786.2 [facility] [id number] [address] 1478 Aug, [facility] [id number] 8576 Aug, [facility] [address] [address] 3646 Jul, [facility] [address] [address] 2546 Jul, [facility] [address] [address]- 2086 Jul, [facility] [address] [address]- 7926 Jul, [facility] [address] [address]- 7006 Jul, [facility] [id number] [place] [address]- 5728 13 Jul, 2014 [facility] [place] [facility] [address] [id number] [place] [address]- 7614 Jun, [facility] [place] [facility] [address] [id number] [place] [address]- 5334 Jun, [facility] [place] [facility] [address] [id number] [place] [address]- 8970 Jun, [facility] [place] [facility] [address] [id number] [place] [address]- 1081 Jun, [facility] [place] [facility] [address] [id number] [place] [address]- 3422 May, [facility] [place] [facility] [address] [id number] [place] [address]- 7791 May, [facility] [place] [facility] [address] [id number] [place] [address]- 2338 May, [facility] [place] [facility] [address] [id number] [place] [address]- 9231 May, [facility] [place] [facility] [address] [id number] [place] [address]- 0338 Apr, [facility] [place] [facility] [address] [id number] [place] [address]- 2566 Apr, [facility] [place] [facility] [address] [id number] [place] [address]- 3615 Mar, [facility] [place] [facility] [address] [id number] [place] [address]- 3922 Mar, [facility] [place] [facility] [address] [id number] [place] [address]- 0977 Mar, [facility] [place] [facility] [address] [id number] [place] [address]- 7457 Mar, [facility] [place] [facility] [address] [id number] [place] [address]- 9042 Mar, [facility] [place] [facility] [address] [id number] [place] [address]- 5556 Mar, [facility] [place] [facility] [address] [id number] [place] [address]- 9425 Jan, [facility] [place] [facility] [address] [id number] [place] [address]- 9062 Jan, 2013 [facility] [place] [facility] [address] [id number] [place] [address]- 6435 Jan, 2013 [facility] [place] [facility] [address] [id number] [place] [address]- 4988 Jan, [facility] [place] [facility] [address] [id number] [place] [address]- 4528 Jan, [facility] [place] [facility] [address] [id number] [place] [address]- 4464 Jan, [facility] [place] [facility] [address] [id number] [place] [address]- 9921 Dec, [facility] [place] [facility] [address] [id number] [place] [address]- 7489 Dec, [facility] [place] [facility] [address] [id number] [place] [address]- 1326 Dec, [facility] [place] [facility] [address] [id number] [place] [address]- 4220 Dec, [facility] [place] [facility] [address] [id number] [place] [address]- 3435 Dec, [facility] [place] [facility] [address] [id number] [place] [address]- 6014 Dec, [facility] [place] [facility] [address] [id number] [place] [address]- 4352 Nov, [facility] [place] [facility] [address] [id number] [place] 8027 Nov, [facility] [place] [facility] [address] [id number] [place] [address]- 1954 Nov, [facility] [place] [facility] [address] [id number] [place] [address]- 4749 Nov, [facility] [place] [facility] [address] [id number] [place] 1471 Nov, [facility] [place] [facility] [address] [id number] [place] [address]- 8788 Nov, [facility] [place] [facility] [address] [id number] [place] [address]- 3003 Nov, [facility] [place] [facility] [address] [id number] [place] [address]- 8770 Nov, [facility] [place] [facility] [address] [id number] [place] [address]- 6173 Nov, [facility] [place] [facility] [address] [id number] [place] [address]- 0950 Nov, [facility] [place] [facility] [address] [id number] [place] [address]- 2228 September, [facility] [place] [facility] [address] [id number] [place] [address]- 9349 September, [facility] [place] [facility] [address] [id number] [place] [address]- 7688 September, [facility] [place] [facility] [address] [id number] [place] [address]- 6873 September, [facility] [place] [facility] [address] [id number] [place] [address]- 6900 September, [facility] [place] [facility] [address] [id number] [place] [address]- 4149 September, [facility] [place] [facility] [address] [id number] [place] [address]- 9003 September, [facility] [place] [facility] [address] [id number] [place] [address]- 5179 September, [facility] [place] [facility] [address] [id number] [place] [address]- 8144 Aug, [facility] [place] [facility] [address] [id number] [place] [address]- 1504 Aug, [facility] [place] [facility] [address] [id number] [place] [address]- 8927 Aug, [facility] [place] [facility] [address] [id number] [place] [address]- 6079 Aug, [facility] [place] [facility] [address] [id number] [place] [address]- 2093 Jul, [facility] [place] [facility] [address] [id number] [place] [address]- 4198 Jul, [facility] [place] [facility] [address] [id number] [place] [address]- 3770 Jul, [facility] [place] [facility] [address] [id number] [place] [address]- 3339 Jul, [facility] [place] [facility] [address] [id number] [place] [address]- 6801 18 Jul, 2013 [facility] [place] [facility] [address] [id number] [place] [address]- 7595 Jul, [facility] [place] [facility] [address] [id number] [place] [address]- 9147 17 Jul, 2013 [facility] [place] [facility] [address] [id number] [place] [address]- 2397 Jul, [facility] [place] [facility] [address] [id number] [place] [address]- 1554 Jul, [facility] [place] [facility] [address] [id number] [place] [address]- 2928 Jul, [facility] [place] [facility] [address] [id number] [place] [address]- 7688 Jul, [facility] [place] [facility] [address] [id number] [place] [address]- 5164 Jun, [facility] [address] [id number] [place] [address]- 8724 Jun, [facility] [place] [facility] [address] [id number] [place] [address]- 7452 Jun, [facility] [address] [id number] [place] [address]- 0705 Jun, [facility] [place] [facility] [address] [id number] [place] [address]- 1029 May, [facility] [place] [facility] [address] [id number] [place] [address]- 2054 May, [facility] [place] [facility] [address] [id number] [place] [address]- 8683 Apr, [facility] [address] [id number] [place] [address]- 3778 Apr, [facility] [place] [facility] [address] [id number] [place] [address]- 5961 Apr, [facility] [place] [facility] [address] [id number] [place] [address]- 1579 Apr, [facility] [place] [facility] [address] [facility] [id number] [place] [address]- 0231 Apr, [facility] [place] [facility] [address] [id number] [place] [address]- 9775 Apr, [facility] [place] [facility] [address] [id number], [place] [address]- 5340 Apr, [facility] [place] [facility] [address] [id number] [place] [address]- 6088 Apr, [facility] [place] [facility] [address] [id number] [place] [address]- 9613 Apr, [facility] [place] [facility] [address] [id number], [place] [address]- 6031 Apr, [facility] [place] [facility] [address] [address]- 9062 Apr, [facility] [address] 2069 Apr, [facility] [address], [place] [address]- 3985 Mar, [facility] [id number] [place] [address] 31975- 0991 Mar, [facility] [address], [place] [address]- 2331 Mar, [facility] [id number] [place] [address] 94018- 3468 Dec, [facility] [address] [address]- 1506 Dec, [facility] [address] [place] [address]- 0435 Dec, [facility] [address], [place] [address]- 4675 Oct, [facility] [address] [place] [address]- 1011 May, [facility] [address] [place] [address]- 8161 May, [facility] [address], [place] [address]- 0050 May, [facility] [id number] [address]- 9235 Dec, IMMUNIZATIONS No Known Immunizations SOCIAL HISTORY Never Assessed REASON FOR VISIT schedule for [facility] OF CARE VITAL SIGNS MEDICATIONS Unknown Medications RESULTS No Results PROCEDURES No Known procedures INSTRUCTIONS MEDICATIONS ADMINISTERED No Known Medications MEDICAL (GENERAL) HISTORY Type Description Date Medical History Renal insuficiency Medical History Symptomatic menopausal Medical History PTSD Medical History Bipolar Medical History Mitral Valve prolapse Medical History mixed hyperlipidemia Medical History COPD- Dr. Pollock Medical History Dementia Surgical History Stimulator 2-16-16 Surgical History Disectomy 1991 Surgical History Breast Reduction 1998 Surgical History Left hand carpal surgery 1992 Surgical History Hysterectomy 05/02 Surgical History Hysterectomy 04/16/10 Surgical History Bladder lift 04/16/10 Surgical History Gall Bladder Surgical History Tubalization Hospitalization History [facility] 12/2014 Hospitalization History Obstructive Airway Disease, Mood disorder, cough-[facility] 07/02/15 Hospitalization History Bronchitis- [facility] 06/2016
--- OUTSIDE RECORDS SUMMARY | 2018-02-03 09:16 | XMS REPORT ---
Author Author MARYSOL CANSECO [facility] Address [address] [place] [address] Care Team Providers Care Platform Supervisor Name Role Phone MARYSOL CANSECO Unavailable PROBLEMS Type Condition ICD9-CM Code VZN38-ND Code Onset Dates Condition Status SNOMED Code Problem Confusion R41.0 Active 854511541 Problem Mixed hyperlipidemia E78.2 Active 026305753 Problem Dizziness R42 Active 410852596 Problem Other chronic pain G89.29 Active 23589270 Problem Bipolar disorder, current episode mixed, mild F31.61 Active 058640258 Problem Bipolar affective disorder, currently manic, mild F31.11 Active 898421168 Problem Chronic fatigue R53.82 Active 26555278 Problem Chronic obstructive pulmonary disease, unspecified COPD type J44.9 Active 76568512 Problem Slow transit constipation K59.01 Active 28244404 Problem Post-traumatic stress disorder, chronic F43.12 Active 73958614 Problem Memory change R41.3 Active 131544992 Problem History of renal insufficiency syndrome Z87.448 Active 557183434 Problem Bipolar II disorder F31.81 Active 25824655 Problem Pharyngeal dysphagia R13.13 Active [id number] ALLERGIES No Information ENCOUNTERS Encounter Location Date Diagnosis [facility] [id number], [place] [address] Oct, [facility] [address] [place] [address] 61316- 3320 Oct, [facility] [id number] [place] [address] 94064- 0188 Oct, [facility] [address], [place] [address] 6[address] September, [facility] [id number] [place] [address] 71128- 9337 September, [facility] [id number] [place] [address] 07613- 6475 September, Pain in left ankle and joints of left foot M25.572 ; Dermatitis L30.9 and Other chronic pain G89.29 [facility] [id number] [place] [address] 98617- 0727 Aug, Right elbow pain M25.521 and Elevated blood pressure reading R03.0 [facility] [id number] [place] [address] 38653- 8040 Aug, Bipolar disorder, current episode mixed, mild F31.61 and BMI 40.0-44.9, adult Z68.41 [facility] [id number] [place] [address] 58054- 5150 Aug, [facility] [address] 59775- 3958 Aug, Bipolar II disorder F31.81 and Post-traumatic stress disorder, chronic F43.12 [facility] [id number] [place] [address] 18097- 4561 Jul, Elevated blood pressure reading R03.0 [facility] [id number] [place] [address] 23167- 3804 Jul, Bipolar II disorder F31.81 and Post-traumatic stress disorder, chronic F43.12 [facility] [id number] [place] [address] 16158- 8687 Jul, Bipolar disorder, current episode mixed, mild F31.61 [facility] [id number] [place] [address] 58506 -6439 Jul, Right foot pain M79.671 ; Allergic contact dermatitis, unspecified trigger L23.9 ; Contusion of right foot, initial encounter S90.31XA and BMI 40.0-44.9, adult Z68.41 [facility] [id number] [place] [address] 35816 -0260 Jul, 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 [facility] [id number] [place] [address] 93467- 9763 22 Jul, 2017 [facility] [id number] [place] [address] 04729- 8868 15 Jul, 2017 Bipolar disorder, current episode mixed, mild F31.61 [facility] [id number] [place] [address] 19337- 3498 15 Jul, 2017 Bipolar II disorder F31.81 ; Post-traumatic stress disorder , chronic F43.12 and Memory change R41.3 [facility] [id number] [place] [address] 70797- 0045 14 Jul, 2017 Elevated blood pressure reading R03.0 ; Chronic obstructive pulmonary disease, unspecified COPD type J44.9 ; Long-term use of high-risk medication Z79.899 and Cognitive decline R41.89 [facility] [address] [place] [address] 61414- 4343 06 Jul, 2017 Elevated blood pressure reading R03.0 [facility] [id number] [place] [address] 66647- 9393 05 Jul, 2017 [facility] [id number] [place] [address] 23056- 2237 01 Jul, 2017 Bipolar II disorder F31.81 ; Post-traumatic stress disorder , chronic F43.12 and Memory change R41.3 [facility] [place] [address] [place] [address] 19787- 2822 Jun, [facility] [id number] [place] [address] 27453- 9915 Jun, Bipolar II disorder F31.81 ; Post-traumatic stress disorder , chronic F43.12 and Memory change R41.3 [facility] [address] [place] [address] 05565- 5137 Jun, Localized swelling, mass or lump of neck R22.1 ; Slow transit constipation K59.01 and Elevated blood pressure reading R03.0 [facility] [id number] [place] [address] 22272- 4714 Jun, [facility] [id number] [place] [address] 91675- 1537 Jun, Bipolar affective disorder, currently manic, mild F31.11 [facility] [id number] [place] [address] 83093 -7730 May, [facility] [place] [id number] [place] [address] 21898 -0595 May, [facility] [id number] [place] [address] 77240- 9815 May, Bipolar II disorder F31.81 ; Post-traumatic stress disorder , chronic F43.12 and Memory change R41.3 [facility] [id number] [place] [address] 95855- 8244 May, [facility] [id number] [place] [address] 29959- 2396 May, [facility] [id number] [place] [address] 41040- 2496 May, Bipolar affective disorder, currently manic, mild F31.11 [facility] [id number] [place] [address] 38954- 5401 May, [facility] [place] [id number] [place] [address] 78335 -8642 May, Localized swelling, mass or lump of neck R22.1 and Localized swelling, mass and lump, head R22.0 [facility] [id number] [place] [address] 57207- 4353 Apr, [facility] [id number] [place] [address] 26831- 6396 Apr, Bipolar affective disorder, currently manic, mild F31.11 [facility] [address], [place] [address]- 6575 07 Apr, 2017 Bipolar II disorder F31.81 [facility] [id number] [place] [address] 28679- 4685 07 Apr, 2017 [facility] [id number] [place] [address] 86304- 2020 Apr, Bipolar affective disorder, currently manic, mild F31.11 [facility] [id number] [place] [address] 22927- 5138 07 Apr, 2017 Actinic keratosis L57.0 [facility] [id number] [place] [address] 23521- 2188 Apr, Bipolar affective disorder, currently manic, mild F31.11 [facility] [address] [place] [address] 80402- 0617 Apr, [facility] [id number] [place] [address] 09572 -4866 Mar, Allergic contact dermatitis, unspecified trigger L23.9 and Right leg pain M79.604 [facility] [address] [place] [address] 60828- 2060 Mar, [facility] [address] [place] [address] 81168- 8211 Mar, Bipolar II disorder F31.81 ; Post-traumatic stress disorder , chronic F43.12 and Memory change R41.3 [facility] [address] [place] [address] 72119- 8193 Mar, Actinic keratosis L57.0 [facility] [id number] [place] [address] 08176- 1486 Jan, Bipolar II disorder F31.81 ; Post-traumatic stress disorder , chronic F43.12 and Memory change R41.3 [facility] [id number] [place] [address] 98057- 4817 Jan, Bipolar affective disorder, currently manic, mild F31.11 [facility] [address] [facility] [id number] [address]- 6325 13 Jan, 2017 Bipolar affective disorder, currently manic, mild F31.11 [facility] [address] [facility] [id number], [place] [address]- 6060 07 Jan, 2017 Bipolar II disorder F31.81 ; Post-traumatic stress disorder , chronic F43.12 and Memory change R41.3 [facility] [address] [facility] [id number], [place] [address]- 6058 Dec, Bipolar II disorder F31.81 ; Post-traumatic stress disorder , chronic F43.12 and Memory change R41.3 [facility] [address] [facility] [id number], [place] [address]- 7256 Dec, Bipolar affective disorder, currently manic, mild F31.11 [facility] [address] [facility] [id number], [place] [address]- 2476 Dec, Bipolar affective disorder, currently manic, mild F31.11 [facility] [address] [facility] [id number], [place] [address]- 2473 Dec, Post-traumatic stress disorder, chronic F43.12 [facility] [address] [facility] [id number], [place] [address]- 7820 Dec, Bipolar II disorder F31.81 ; Post-traumatic stress disorder , chronic F43.12 and Memory change R41.3 [facility] [address] [facility] [id number], [place] [address]- 5615 Dec, Post-traumatic stress disorder, chronic F43.12 [facility] [address] [facility] [id number], [place] [address]- 8981 Nov, [facility] [address] [facility] [id number], [place] [address]- 4298 Nov, Bipolar II disorder F31.81 ; Post-traumatic stress disorder , chronic F43.12 and Memory change R41.3 [facility] [address], [place] [address]- 6263 Nov, [facility] [address], [place] [address]- 5027 Nov, Post-traumatic stress disorder, chronic F43.12 and Bipolar II disorder F31.81 [facility] [address], [place] [address]- 7005 Nov, Actinic keratosis L57.0 [facility] [id number], [place] [address]- 8093 Oct, Bipolar II disorder F31.81 ; Post-traumatic stress disorder , chronic F43.12 and Memory change R41.3 [place] [address], [place] [address]- 8140 Oct, Post-traumatic stress disorder, chronic F43.12 ; Bipolar II disorder F31.81 and Memory change R41.3 [place] [address], [place] [address]- 9105 Oct, Bipolar II disorder F31.81 ; Post-traumatic stress disorder , chronic F43.12 and Memory change R41.3 [facility] [address], [place] [address]- 0330 Oct, Actinic keratosis L57.0 [facility] [address], [place] [address]- 4140 September, Bipolar II disorder F31.81 ; Post-traumatic stress disorder , chronic F43.12 and Memory change R41.3 [facility] [id number], [place] [address]- 3119 September, Bipolar II disorder F31.81 ; Post-traumatic stress disorder , chronic F43.12 and Memory change R41.3 [facility] [address], [place] [address]- 8736 September, Post-traumatic stress disorder, chronic F43.12 ; Bipolar II disorder F31.81 and Memory change R41.3 [facility] [address], [place] [address]- 2502 Jul, Bipolar II disorder F31.81 ; Post-traumatic stress disorder , chronic F43.12 and Memory change R41.3 [facility] [address], [place] [address]- 0056 15 Jul, 2016 Bipolar II disorder F31.81 ; Post-traumatic stress disorder , chronic F43.12 and Memory change R41.3 [facility] [address], [place] [address]- 2637 Jul, Bipolar II disorder F31.81 ; Post-traumatic stress disorder , chronic F43.12 and Memory change R41.3 [facility] [address] [place] [address] 59371- 4022 Jul, Post-traumatic stress disorder, chronic F43.12 ; Bipolar II disorder F31.81 and Memory change R41.3 [facility] [address] [place] [address] 12140- 5404 Jul, Tear of medial meniscus of right knee, unspecified tear type , unspecified whether old or current tear, initial encounter S83.241A [facility] [address], [place] [address]- 9537 Jul, Bipolar II disorder F31.81 ; Post-traumatic stress disorder , chronic F43.12 and Memory change R41.3 [facility] [address], [place] [address]- 1732 07 Jul, 2016 Shortness of breath R06.02 ; Mixed hyperlipidemia E78.2 and Chronic fatigue R53.82 [facility] [address] [place] [address] 35119- 6145 07 Jul, 2016 Bipolar II disorder F31.81 ; Post-traumatic stress disorder , chronic F43.12 and Memory change R41.3 [facility] [address] [place] [address] 02774- 7146 Jul, [facility] [address], [place] [address]- 0977 Jun, Bipolar II disorder F31.81 ; Post-traumatic stress disorder , chronic F43.12 and Memory change R41.3 [facility] [address] [place] [address] 11281- 7516 Jun, Post-traumatic stress disorder, chronic F43.12 ; Bipolar II disorder F31.81 and Memory change R41.3 [facility] [id number] [place] [address] 98929- 9291 Jun, Right anterior knee pain M25.561 ; Shortness of breath R06.02 and Bronchiolitis J21.9 [facility] [id number] [place] [address] 22007- 2012 Jun, [facility] [id number] [place] [address] 90475- 3315 Jun, Bipolar II disorder F31.81 ; Post-traumatic stress disorder , chronic F43.12 and Memory change R41.3 [facility] [id number] [place] [address] 44284- 7625 Jun, [facility] [address] [place] [address] 36465- 2723 Jun, Bipolar II disorder F31.81 ; Post-traumatic stress disorder , chronic F43.12 and Memory change R41.3 [facility] [address], [place] [address]- 3579 May, [facility] [id number] [place] [address] 04583- 7589 May, [facility] [id number] [place] [address] 96364- 7129 May, [facility] [address], [place] [address]- 5694 May, Right anterior knee pain M25.561 ; Cough R05 ; Skin lesion of right arm L98.9 and Lesion of skin of face L98.9 [facility] [id number] [place] [address] 06470- 4344 May, [facility] [id number] [place] [address] 23394- 5739 May, Post-traumatic stress disorder, chronic F43.12 ; Memory change R41.3 and Bipolar I disorder, most recent episode manic F31.10 [facility] [id number] [place] [address] 89359- 1237 May, [facility] [address] 42343- 6609 May, Right anterior knee pain M25.561 [facility] [id number] [place] [address] 18192- 2366 May, [facility] [id number] [place] [address] 76213- 1885 Apr, Bipolar II disorder F31.81 ; Post-traumatic stress disorder , chronic F43.12 and Memory change R41.3 [facility] [id number] [place] [address] 52894- 5192 Apr, Bipolar II disorder F31.81 ; Post-traumatic stress disorder , chronic F43.12 and Memory change R41.3 [facility] [id number] [place] [address] 87072- 7134 Apr, Post-traumatic stress disorder, chronic F43.12 ; Bipolar II disorder F31.81 and Memory change R41.3 [facility] [id number] [place] [address] 74843- 4130 Mar, Bipolar II disorder F31.81 ; Post-traumatic stress disorder , chronic F43.12 and Memory change R41.3 [facility] [id number] [place] [address] 35890- 8339 Mar, Memory change R41.3 ; Confusion R41.0 and Dizziness R42 [facility] [address], [place] [address]- 5021 05 Mar, 2016 Memory change R41.3 ; Encounter for immunization Z23 and Fatigue, unspecified type R53.83 [facility] [address], [place] [address]- 5694 03 Mar, 2016 Bipolar II disorder F31.81 ; Post-traumatic stress disorder , chronic F43.12 and Memory change R41.3 [facility] [id number] [place] [address] 91752- 5205 Jan, Bipolar II disorder F31.81 ; Post-traumatic stress disorder , chronic F43.12 and Memory change R41.3 [facility] [id number] [place] [address] 08763- 0434 19 Feb, 2016 Post-traumatic stress disorder, chronic F43.12 ; Bipolar II disorder F31.81 ; Anxiety disorder, unspecified F41.9 and Memory change R41.3 [facility] [place] [address] [place] [address] 28802- 8393 15 Feb, 2016 Bipolar II disorder F31.81 ; Post-traumatic stress disorder , chronic F43.12 and Memory change R41.3 [facility] [address], [place] [address]- 5547 Dec, Bipolar II disorder F31.81 ; Post-traumatic stress disorder , chronic F43.12 and Memory change R41.3 [facility] [address], [place] [address]- 7242 Dec, Memory loss R41.3 [facility] [address] [place] [address] 15510- 9287 Dec, Bipolar II disorder F31.81 ; Post-traumatic stress disorder , chronic F43.12 and Memory change R41.3 [place] [place] [address], [place] [address]- 0430 Nov, Bipolar II disorder F31.81 and Post-traumatic stress disorder, chronic F43.12 [facility] [address]- 7800 Nov, Bipolar II disorder F31.81 ; Post-traumatic stress disorder , chronic F43.12 and Memory change R41.3 [facility] [address] [place] [address] [id number]- 8610 Oct, Post-traumatic stress disorder, chronic F43.12 and Bipolar disorder, unspecified F31.9 [facility] [id number] [place] [address] 31263649- 8111 Oct, Bipolar II disorder F31.81 ; Post-traumatic stress disorder , chronic F43.12 and Memory change R41.3 [facility] [address] [place] [address] [id number] Oct, Dental examination Z01.20 [facility] [id number] [place] [address] 57333- 8893 September, Bipolar II disorder F31.81 ; Post-traumatic stress disorder , chronic F43.12 and Memory change R41.3 [facility] [address] [place] [address] 86850- 1269 Aug, Bipolar II disorder F31.81 and Post-traumatic stress disorder, chronic F43.12 [facility] [address] [place] [address] 27968- 8923 Aug, Bipolar II disorder F31.81 and Post-traumatic stress disorder, chronic F43.12 [facility] [address]- 4172 Jul, Bipolar II disorder F31.81 and Post-traumatic stress disorder, chronic F43.12 [facility] [address] [place] [address] [id number]- 6861 Jul, [facility] [address] [place] [address] 31425- 1668 Jul, [facility] [id number] [place] [address] 04313- 3693 15 Jul, 2015 Post-traumatic stress disorder, chronic F43.12 and Bipolar disorder, unspecified F31.9 [facility] [id number] [place] [address] Jun, Bipolar II disorder F31.81 and Post-traumatic stress disorder, chronic F43.12 [facility] [address] [place] [address]- 8041 Jun, Post-traumatic stress disorder, chronic F43.12 and Bipolar disorder, unspecified F31.9 [facility] [address] 7003 Jun, [place] [id number] 2122 Jun, Pharyngeal dysphagia R13.13 ; Hoarseness R49.0 and Cough R05 [facility] [address] 02552- 7687 Jun, Post-traumatic stress disorder, chronic F43.12 and Bipolar disorder, unspecified F31.9 [facility] [address] 26975- 8667 May, Cough R05 [facility] [address] 665682- 8170 May, Post-traumatic stress disorder, chronic F43.12 and Bipolar disorder, unspecified F31.9 [facility] [id number] [place] [address] 46048- 6449 May, Cough R05 [facility] [id number] [place] [address] 37324- 3956 May, [facility] [id number] [place] [address] [id number] May, Dental examination Z01.20 [facility] [address] 74552- 3164 May, Bipolar II disorder F31.81 and Post-traumatic stress disorder, chronic F43.12 [facility] [id number] [place] [address] 03916- 1580 May, [facility] [id number] [place] [address] 32278- 3396 May, Bipolar II disorder F31.81 and Anxiety disorder, unspecified F41.9 [facility] [address] 27392- 0737 May, Memory change R41.3 and History of renal insufficiency syndrome Z87.448 [facility] [address] 91716- 0582 May, Memory change R41.3 ; Dry mouth R68.2 and History of renal insufficiency syndrome Z87.448 [facility] [address] 81369- 8584 May, Bipolar II disorder F31.81 and Post-traumatic stress disorder, chronic F43.12 [facility] [id number] [place] [address] 10738- 6297 Mar, Bipolar disorder, unspecified F31.9 and Generalized anxiety disorder F41.1 [facility] [id number] [place] [address] 43035- 7559 Mar, Bipolar II disorder F31.81 [facility] [id number] [place] [address] 30651- 0861 Mar, Encounter for immunization Z23 [facility] [id number] [place] [address] 01870- 0684 Mar, [facility] [address] 75978- 6354 Mar, Bipolar II disorder F31.81 [facility] [id number] [place] [address] 39405- 1855 Mar, [facility] [address] [place] [address]- 5086 Jan, Bipolar disorder, unspecified 296.80 and Anxiety disorder 300.00 [facility] [id number] [place] [address] 15363- 4990 Jan, [facility] [id number] [place] [address] 69248- 1164 Jan, Bipolar disorder, unspecified 296.80 and Anxiety disorder 300.00 [facility] [id number] [place] [address] 33852- 7585 Dec, Bipolar disorder, unspecified 296.80 and Anxiety disorder 300.00 [facility] [id number] [place] [address] 88885- 1386 Dec, [facility] [id number] [place] [address] 64646- 7973 Dec, Bipolar disorder, unspecified 296.80 and Anxiety disorder 300.00 [facility] [id number] [place] [address] 90350- 6889 Nov, Bipolar disorder, unspecified 296.80 and Anxiety disorder 300.00 [facility] [id number] [place] [address]- [address]99 Oct, Bipolar disorder, unspecified 296.80 and Anxiety disorder 300.00 [facility] [id number] [place] [address]60- 4173 Oct, Anxiety 300.00 and Bipolar disorder, unspecified 296.80 [facility] [id number] [place] [address]3941- 2946 September, Bipolar disorder, unspecified 296.80 and Anxiety disorder 300.00 [facility] [id number] [place] [address]29- 8675 September, [facility] [id number] [place] [address] 88387- 8712 Aug, Cough 786.2 [facility] [address] [address]- [address] 14 Aug, 2014 [facility] [place] [facility] [address] [id number] [place] [address] Aug, [facility] [place] [facility] [address] [id number] [place] [address] 115[address] Jul, [facility] [place] [facility] [address] [id number] [place] [address] 0834 Jul, [facility] [place] [facility] [address] [id number] [place] [address] 7220 Jul, [facility] [place] [facility] [address] [id number] [place] [address] 6348 Jul, [facility] [place] [facility] [address] [id number] [place] [address] 3529 Jul, [facility] [place] [facility] [address] [facility] [id number] [place] [address]- 3284 Jul, [facility] [place] [facility] [address] [facility] [id number] [place] [address]- 5429 Jun, [facility] [place] [facility] [address] [id number] [place] [address]- 7072 Jun, [facility] [place] [facility] [address] [facility] [id number] [place] [address]- 5013 Jun, [facility] [place] [facility] [address] [facility] [id number] [place] [address]- 9081 Jun, [facility] [place] [facility] [address] [facility] [id number] [place] [address]- 0235 May, [facility] [place] [facility] [address] [id number] [place] [address]- 7381 May, [facility] [place] [facility] [address] [facility] [id number] [place] [address]- 3777 May, [facility] [place] [facility] [address] [facility] [id number] [place] [address]- 8620 May, [facility] [place] [facility] [address] [id number] [place] [address]- 5631 Apr, [facility] [place] [facility] [address] [id number] [place] [address]- 8158 Apr, [facility] [place] [facility] [address] [id number] [place] [address]- 3218 Mar, [facility] [place] [facility] [address] [id number] [place] [address]- 4618 Mar, [facility] [place] [facility] [address] [id number] [place] [address]- 1176 Mar, [facility] [place] [facility] [address] [id number] [place] [address]- 0585 Mar, [facility] [place] [facility] [address] [id number] [place] [address]- 8028 Mar, [facility] [place] [facility] [address] [id number] [place] [address]- 0481 Mar, [facility] [place] [facility] [address] [id number] [place] [address]- 8295 Jan, [facility] [place] [facility] [address] [id number] [place] [address]- 7147 Jan, [facility] [place] [facility] [address] [id number] [place] [address]- 2459 Jan, [facility] [place] [facility] [address] [id number] [place] [address]- 2278 05 Jan, 2013 [facility] [place] [facility] [address] [id number] [place] [address]- 3021 Jan, [facility] [place] [facility] [address] [id number] [place] [address]- 3015 Jan, [facility] [place] [facility] [address] [id number] [place] [address]- 6640 Dec, [facility] [place] [facility] [address] [id number] [place] [address]- 9038 Dec, [facility] [place] [facility] [address] [id number] [place] [address] Dec, [facility] [place] [facility] [address] [id number] [place] [address]- 5735 Dec, [facility] [place] [facility] [address] [id number] [place] [address]- 3392 Dec, [facility] [place] [facility] [address] [id number] [place] [address]- 0468 Dec, [facility] [place] [facility] [address] [id number] [place] [address]- 7340 Nov, [facility] [place] [facility] [address] [id number] [place] [address]- 2574 Nov, [facility] [place] [facility] [address] [id number] [place] [address]- 0002 Nov, [facility] [place] [facility] [address] [id number] [place] [address]- 6189 Nov, [facility] [place] [facility] [address] [id number] [place] [address]- 6925 Nov, [facility] [place] [facility] [address] [id number] [place] [address]- 3755 Nov, [facility] [place] [facility] [address] [id number] [place] [address]- 2623 Nov, [facility] [place] [facility] [address] [id number] [place] [address]- 7483 Nov, [facility] [place] [facility] [address] [id number] [place] [address]- 3885 Nov, [facility] [place] [facility] [address] [id number] [place] [address]- 7197 Nov, [facility] [place] [facility] [address] [id number] [place] [address]- 0075 September, [facility] [place] [facility] [address] [id number] [place] [address]- 1510 September, [facility] [address] [id number] [place] [address]- 1924 September, [facility] [place] [facility] [address] [id number] [place] [address]- 9826 September, [facility] [address] [id number] [place] [address]- 4670 September, [facility] [place] [facility] [address] [id number] [place] [address]- 3304 September, [facility] [address] [id number] [place] [address]- 1319 September, [facility] [address] [id number] [place] [address]- 7744 September, [facility] [address] [id number] [place] [address]- 6622 Aug, [facility] [address] [id number] [place] [address]- 1214 Aug, [facility] [place] [facility] [address] [id number] [place] [address]- 1988 Aug, [facility] [address] [id number] [place] [address]- 8324 Aug, [facility] [place] [facility] [address] [id number] [place] [address]- 5839 Jul, [facility] [place] [facility] [address] [id number] [place] [address]- 4166 Jul, [facility] [place] [facility] [address] [id number] [place] [address]- 7840 Jul, [facility] [place] [facility] [address] [id number] [place] [address]- 5093 Jul, [facility] [place] [facility] [address] [id number] [place] [address] Jul, [facility] [place] [facility] [address] [id number] [place] [address]- 6484 Jul, [facility] [place] [facility] [address] [id number] [place] [address]- 1698 Jul, [facility] [place] [facility] [address] [id number] [place] [address]- 2355 Jul, [facility] [place] [facility] [address] [id number] [place] [address]- 0249 Jul, [facility] [place] [facility] [address] [id number] [place] [address]- 4631 Jul, [facility] [place] [facility] [address] [id number] [place] [address]- 0675 Jul, [facility] [place] [facility] [address] [id number] [place] [address]- 7090 Jun, [facility] [place] [facility] [address] [id number] [place] [address]- 8392 Jun, [facility] [place] [facility] [address] [id number] [place] [address]- 7532 Jun, [facility] [place] [facility] [address] [facility] [id number] [place] [address]- 1627 Jun, [facility] [place] [facility] [address] [id number] [place] [address]- 1046 May, [facility] [place] [facility] [address] [id number] [place] [address]- 2243 May, [facility] [place] [facility] [address] [id number] [place] [address]- 3288 Apr, [facility] [place] [facility] [address] [id number] [place] [address]- 6381 Apr, [facility] [place] [facility] [address] [facility] [id number] [place] [address]- 7427 Apr, [facility] [place] [facility] [address] [id number] [place] [address]- 4919 Apr, [facility] [address] [id number] [place] [address]- 2587 Apr, [facility] [place] [facility] [address] [id number] [place] [address]- 0085 Apr, [facility] [address] [id number] [place] [address]- 2738 Apr, [facility] [place] [facility] [address] [id number] [place] [address]- 4538 Apr, [facility] [address] [id number] [place] [address]- 8786 Apr, [facility] [address] [id number] [place] [address]- 5654 Apr, [facility] [place] [facility] [address] [id number] [place] [address]- 0161 Apr, [facility] [address] [id number] [place] [address]- 7772 Apr, [facility] [place] [facility] [address] [id number] [place] [address]- 8736 Mar, [facility] [address] [id number] [place] [address]- 9182 Mar, [facility] [place] [facility] [address] [id number] [place] [address]- 3179 Mar, [facility] [place] [facility] [address] [id number] [place] [address]- 4284 Dec, [facility] [place] [facility] [address] [id number] [place] [address]- 0129 Dec, [facility] [place] [facility] [address] [id number] [place] [address]- 2458 Dec, [facility] [place] [facility] [address] [id number] [place] [address]- 8037 Oct, [facility] [address] [facility] [id number] [place] [address]- 0922 May, [facility] [address] [facility] [id number] [address]- 7046 May, [facility] [address] [facility] [id number], [place] [address]- 7086 May, [facility] [address] [facility] [id number], [place] [address]- 0206 Dec, IMMUNIZATIONS Vaccine Route Administration Date Status ARISTADA 882 MG/2.5 ML (PT'S OWN) IM Intramuscular Apr 08, 2017 Administered SOCIAL HISTORY Never Assessed REASON FOR VISIT Injection- Loretta Landry RN PLAN OF CARE Activity Details Follow Up 4 Weeks Reason: VITAL SIGNS MEDICATIONS Unknown Medications RESULTS No Results PROCEDURES Procedure Date Ordered Result Body Site ARISTADA 882 MG/2.5 ML (PT'S OWN) Apr 08, 2017 THER/PROPH/DIAG INJ, SC/IM Apr 08, 2017 INSTRUCTIONS MEDICATIONS ADMINISTERED No [...] Bladder Surgical History Tubalization Hospitalization History [facility] 12/2014 Hospitalization History Obstructive Airway Disease, Mood disorder, cough-[facility] 07/02/15 Hospitalization History Bronchitis- [facility] 06/2016
--- OUTSIDE RECORDS SUMMARY | 2018-02-03 09:18 | XMS REPORT ---
Author Author MARYSOL CANSECO [facility] Address [address] [place] [address] Care Team Providers Care Materials Associate Name Role Phone MARYSOL CANSECO Unavailable PROBLEMS Type Condition ICD9-CM Code [id number] Code Onset Dates Condition Status SNOMED Code Problem Mixed hyperlipidemia E78.2 Active 577168689 Problem Bipolar affective disorder, currently manic, mild F31.11 Active 359808035 Problem Chronic fatigue R53.82 Active 35559353 Problem COPD exacerbation J44.1 Active 707753317 Problem Other chronic pain G89.29 Active 32914647 Problem Chronic obstructive pulmonary disease, unspecified COPD type J44.9 Active 19225540 Problem Slow transit constipation K59.01 Active 75993952 Problem Bipolar disorder, in partial remission, most recent episode mixed F31.77 Active 44000831 Problem Bipolar disorder, current episode mixed, mild F31.61 Active 262072266 Problem Bipolar II disorder F31.81 Active 46860516 Problem History of renal insufficiency syndrome Z87.448 Active 136106592 Problem Pharyngeal dysphagia R13.13 Active [id number] Problem Post-traumatic stress disorder, chronic F43.12 Active 66358569 Problem Confusion R41.0 Active 632519519 Problem Memory change R41.3 Active 190185291 Problem Dizziness R42 Active 705492061 ALLERGIES No Information ENCOUNTERS Encounter Location Date Diagnosis [facility] [id number], [place] [address] Nov, [facility] [address] [place] [address] 27934- 8580 Oct, [facility] [address], [place] [address] Oct, [facility] [address] [place] [address] 94404- 5700 Oct, [place] [id number] [place] [address] 56818- 3745 Oct, [place] [id number] [place] [address] 34567- 1395 Oct, [place] [address] 64645- 9759 September, Bipolar II disorder F31.81 and Post-traumatic stress disorder, chronic F43.12 [place] [id number] [place] [address] 48458- 1473 September, Bipolar disorder, in partial remission, most recent episode mixed F31.77 [place] [address] 81829- 6144 September, COPD exacerbation J44.1 and Elevated blood pressure reading R03.[address] 58335- 4785 September, [place] [address] 99902- 4427 September, Pain in left ankle and joints of left foot M25.572 ; Dermatitis L30.9 and Other chronic pain G89.29 [place] [id number] [place] [address] 32652- 4973 Aug, Right elbow pain M25.521 and Elevated blood pressure reading R03.0 [place] [id number] [place] [address] 54923- 6394 Aug, Bipolar disorder, current episode mixed, mild F31.61 and BMI 40.0-44.9, adult Z68.41 [place] [address] 10819- 8574 Aug, [facility] [id number] [place] [address] 96468- 9867 Aug, Bipolar II disorder F31.81 and Post-traumatic stress disorder, chronic F43.12 [place] [id number] [place] [address] 77233- 7554 26 Jul, 2017 Elevated blood pressure reading R03.0 [place] [address] 71196- 3938 Jul, Bipolar II disorder F31.81 and Post-traumatic stress disorder, chronic F43.12 [place] [address] 77836- 0328 Jul, Bipolar disorder, current episode mixed, mild F31.61 [facility] [place] [address] 52051 -0563 Jul, Right foot pain M79.671 ; Allergic contact dermatitis, unspecified trigger L23.9 ; Contusion of right foot, initial encounter S90.31XA and BMI 40.0-44.9, adult Z68.41 [facility] IN [address] 30169 -5981 Jul, 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 [place] [address] 82707- 9350 22 Jul, 2017 [place] [address] 28116- 9725 15 Jul, 2017 Bipolar disorder, current episode mixed, mild F31.61 [place] [address] 24419- 9442 15 Jul, 2017 Bipolar II disorder F31.81 ; Post-traumatic stress disorder , chronic F43.12 and Memory change R41.[address] 35486- 8419 14 Jul, 2017 Elevated blood pressure reading R03.0 ; Chronic obstructive pulmonary disease, unspecified COPD type J44.9 ; Long-term use of high-risk medication Z79.899 and Cognitive decline R41.89 [place] [address] 16483- 5571 06 Jul, 2017 Elevated blood pressure reading R03.0 [facility] [address], [place] [address] 4728 05 Jul, 2017 [facility] [id number] [place] [address] 27144- 8018 Jul, Bipolar II disorder F31.81 ; Post-traumatic stress disorder , chronic F43.12 and Memory change R41.3 [place] [id number] [place] [address] 24261- 7986 Jun, [facility] [address] [place] [address] 49753- 7418 Jun, Bipolar II disorder F31.81 ; Post-traumatic stress disorder , chronic F43.12 and Memory change R41.3 [place] [id number] [place] [address] 55790- 5664 Jun, Localized swelling, mass or lump of neck R22.1 ; Slow transit constipation K59.01 and Elevated blood pressure reading R03.0 [place] [id number] [place] [address] 50970- 9927 Jun, [place] [id number] [place] [address] 14306- 7091 Jun, Bipolar affective disorder, currently manic, mild F31.11 [facility] [id number] [place] [address] 11176 -6030 May, [facility] [address] [place] [address] 32662 -9463 May, [place] [id number] [place] [address] 68293- 0911 May, Bipolar II disorder F31.81 ; Post-traumatic stress disorder , chronic F43.12 and Memory change R41.3 [place] [address] [place] [address] 27681- 4730 May, [place] [address] [place] [address] 22111- 9095 08 May, 2017 [facility] [id number] [place] [address] 27071- 2102 May, Bipolar affective disorder, currently manic, mild F31.11 [facility] [id number] [place] [address] 73689- 3421 May, [facility] [id number] [place] [address] 31656 -1926 May, Localized swelling, mass or lump of neck R22.1 and Localized swelling, mass and lump, head R22.0 [facility] [id number] [place] [address] 73342- 5266 Apr, [facility] [id number] [place] [address] 01194- 1646 Apr, Bipolar affective disorder, currently manic, mild F31.11 [facility] [id number] [place] [address] 04365- 6418 07 Apr, 2017 Bipolar II disorder F31.81 [facility] [id number] [place] [address] 20246- 2181 07 Apr, 2017 [facility] [id number] [place] [address] 36365- 1477 Apr, Bipolar affective disorder, currently manic, mild F31.11 [facility] [id number] [place] [address] 55833- 3744 07 Apr, 2017 Actinic keratosis L57.0 [facility] [address] [place] [address] 87323- 9007 Apr, Bipolar affective disorder, currently manic, mild F31.11 [facility] [address], [place] [address] 8420 Apr, [facility] [id number] [place] [address] 89865 -5321 Mar, Allergic contact dermatitis, unspecified trigger L23.9 and Right leg pain M79.604 [facility] [id number] [place] [address] 61040- 4372 Mar, [facility] [id number] [place] [address] 51088- 4461 Mar, Bipolar II disorder F31.81 ; Post-traumatic stress disorder , chronic F43.12 and Memory change R41.3 [facility] [id number] [place] [address] 93930- 2460 Mar, Actinic keratosis L57.0 [place] [id number] [place] [address] 29544- 5525 Jan, Bipolar II disorder F31.81 ; Post-traumatic stress disorder , chronic F43.12 and Memory change R41.3 [place] [id number] [place] [address] 19354- 5229 Jan, Bipolar affective disorder, currently manic, mild F31.11 [place] [id number] [place] [address] 91342- 5179 13 Jan, 2017 Bipolar affective disorder, currently manic, mild F31.11 [facility] [id number] [place] [address] 48301- 1137 07 Jan, 2017 Bipolar II disorder F31.81 ; Post-traumatic stress disorder , chronic F43.12 and Memory change R41.3 [place] [address] [place] [address] 31795- 0679 Dec, Bipolar II disorder F31.81 ; Post-traumatic stress disorder , chronic F43.12 and Memory change R41.3 [place] [address] [place] [address] 18869- 0383 Dec, Bipolar affective disorder, currently manic, mild F31.11 [place] [id number] [place] [address] 85280- 0105 Dec, Bipolar affective disorder, currently manic, mild F31.11 [facility] [address], [place] [address]- 1926 Dec, Post-traumatic stress disorder, chronic F43.12 [facility] [address], [place] [address]- 1326 Dec, Bipolar II disorder F31.81 ; Post-traumatic stress disorder , chronic F43.12 and Memory change R41.3 [facility] [id number] [place] [address] 26059- 9700 Dec, Post-traumatic stress disorder, chronic F43.12 [facility] [id number] [place] [address] 86692- 2040 Nov, [facility] [id number] [place] [address] 86461- 1214 Nov, Bipolar II disorder F31.81 ; Post-traumatic stress disorder , chronic F43.12 and Memory change R41.3 [facility] [address] [place] [address] 46864- 9024 Nov, [facility] [id number] [place] [address] 88743- 5102 Nov, Post-traumatic stress disorder, chronic F43.12 and Bipolar II disorder F31.81 [facility] [address] [place] [address] 79816- 0439 Nov, Actinic keratosis L57.0 [facility] [address] [place] [address] 80380- 4151 Oct, Bipolar II disorder F31.81 ; Post-traumatic stress disorder , chronic F43.12 and Memory change R41.3 [facility] [address] [place] [address] 94592- 0040 Oct, Post-traumatic stress disorder, chronic F43.12 ; Bipolar II disorder F31.81 and Memory change R41.3 [facility] [id number] [place] [address] 59496- 3336 Oct, Bipolar II disorder F31.81 ; Post-traumatic stress disorder , chronic F43.12 and Memory change R41.3 [facility] [address], [place] [address]- 6476 Oct, Actinic keratosis L57.0 [facility] [address], [place] [address]- 4279 September, Bipolar II disorder F31.81 ; Post-traumatic stress disorder , chronic F43.12 and Memory change R41.3 [facility] [address], [place] [address]- 4542 September, Bipolar II disorder F31.81 ; Post-traumatic stress disorder , chronic F43.12 and Memory change R41.3 [place] [address], [place] [address]- 8811 September, Post-traumatic stress disorder, chronic F43.12 ; Bipolar II disorder F31.81 and Memory change R41.3 [facility] [address], [place] [address]- 2778 Jul, Bipolar II disorder F31.81 ; Post-traumatic stress disorder , chronic F43.12 and Memory change R41.3 [facility] [address], [place] [address]- 3907 Jul, Bipolar II disorder F31.81 ; Post-traumatic stress disorder , chronic F43.12 and Memory change R41.3 [facility] [address], [place] [address]- 3731 Jul, Bipolar II disorder F31.81 ; Post-traumatic stress disorder , chronic F43.12 and Memory change R41.3 [facility] [address], [place] [address]- 8746 Jul, Post-traumatic stress disorder, chronic F43.12 ; Bipolar II disorder F31.81 and Memory change R41.3 [facility] [id number] [place] [address] 04806- 7433 Jul, Tear of medial meniscus of right knee, unspecified tear type , unspecified whether old or current tear, initial encounter S83.241A [place] [address] [place] [address] 2910 Jul, Bipolar II disorder F31.81 ; Post-traumatic stress disorder , chronic F43.12 and Memory change R41.3 [place] [address] 17395- 6855 Jul, Shortness of breath R06.02 ; Mixed hyperlipidemia E78.2 and Chronic fatigue R53.[address] 69963- 3643 Jul, Bipolar II disorder F31.81 ; Post-traumatic stress disorder , chronic F43.12 and Memory change R41.3 [place] [address] 45888- 0036 Jul, [place] [address] 41929- 2525 Jun, Bipolar II disorder F31.81 ; Post-traumatic stress disorder , chronic F43.12 and Memory change R41.3 [place] [id number] [place] [address] 72429- 9251 Jun, Post-traumatic stress disorder, chronic F43.12 ; Bipolar II disorder F31.81 and Memory change R41.3 [place] [address] [place] [address] 12209- 7867 Jun, Right anterior knee pain M25.561 ; Shortness of breath R06.02 and Bronchiolitis J21.9 [place] [id number] [place] [address] 73467- 2491 Jun, [place] [address] [place] [address] 53959- 2892 Jun, Bipolar II disorder F31.81 ; Post-traumatic stress disorder , chronic F43.12 and Memory change R41.3 [facility] [id number], [place] [address] 2546 Jun, [facility] [id number] [place] [address] 49407 2546 Jun, Bipolar II disorder F31.81 ; Post-traumatic stress disorder , chronic F43.12 and Memory change R41.3 [facility] [id number] [place] [address] 53229 2546 May, [facility] [id number] [place] [address] 49831- 5236 May, [facility] [id number] [place] [address] 07687- 7876 May, [facility] [id number] [place] [address] 08012- 5626 May, Right anterior knee pain M25.561 ; Cough R05 ; Skin lesion of right arm L98.9 and Lesion of skin of face L98.9 [facility] [address], [place] [address]- 1436 May, [facility] [id number] [place] [address] 93862 2546 May, Post-traumatic stress disorder, chronic F43.12 ; Memory change R41.3 and Bipolar I disorder, most recent episode manic F31.10 [facility] [address], [place] [address] 2546 May, [facility] [address], [place] [address] 2546 May, Right anterior knee pain M25.561 [facility] [id number] [place] [address] 04144 2546 May, [facility] [address] [place] [address] 40576- 3956 30 Nov, 2016 Bipolar II disorder F31.81 ; Post-traumatic stress disorder , chronic F43.12 and Memory change R41.3 [place] [address] [place] [address] 52723- 9423 Apr, Bipolar II disorder F31.81 ; Post-traumatic stress disorder , chronic F43.12 and Memory change R41.3 [place] [address] [place] [address] 31461- 7267 Apr, Post-traumatic stress disorder, chronic F43.12 ; Bipolar II disorder F31.81 and Memory change R41.3 [place] [address] [place] [address] 35761- 5858 Mar, Bipolar II disorder F31.81 ; Post-traumatic stress disorder , chronic F43.12 and Memory change R41.3 [place] [address] [place] [address] 48476- 1904 Mar, Memory change R41.3 ; Confusion R41.0 and Dizziness R42 [place] [address] [place] [address] 38240- 1596 Mar, Encounter for immunization Z23 ; Memory change R41.3 and Fatigue, unspecified type R53.83 [place] [address] [place] [address] 47891- 5689 Mar, Bipolar II disorder F31.81 ; Post-traumatic stress disorder , chronic F43.12 and Memory change R41.3 [place] [address] [place] [address] 35756- 0395 Jan, Bipolar II disorder F31.81 ; Post-traumatic stress disorder , chronic F43.12 and Memory change R41.3 [place] [id number] [place] [address] 19762- 4841 Jan, Post-traumatic stress disorder, chronic F43.12 ; Bipolar II disorder F31.81 ; Anxiety disorder, unspecified F41.9 and Memory change R41.3 [place] [id number] [place] [address] 24556- 5541 15 Feb, 2016 Bipolar II disorder F31.81 ; Post-traumatic stress disorder , chronic F43.12 and Memory change R41.3 [facility] [id number] [place] [address] 06083- 0122 Dec, Bipolar II disorder F31.81 ; Post-traumatic stress disorder , chronic F43.12 and Memory change R41.3 [facility] [address] [place] [address] 07448- 9218 Dec, Memory loss R41.3 [facility] [id number] [place] [address] 05734- 9092 Dec, Bipolar II disorder F31.81 ; Post-traumatic stress disorder , chronic F43.12 and Memory change R41.3 [facility] [address] [place] [address] 16162- 5942 Nov, Bipolar II disorder F31.81 and Post-traumatic stress disorder, chronic F43.12 [facility] [address] [place] [address] 94604- 2386 Nov, Bipolar II disorder F31.81 ; Post-traumatic stress disorder , chronic F43.12 and Memory change R41.3 [facility] [address], [place] [address]- 2444 Oct, Post-traumatic stress disorder, chronic F43.12 and Bipolar disorder, unspecified F31.9 [facility] [address], [place] [address]- 5608 Oct, Bipolar II disorder F31.81 ; Post-traumatic stress disorder , chronic F43.12 and Memory change R41.3 [facility] [address] [place] [address] [id number] Oct, Dental examination Z01.20 [facility] [address], [place] [address]- 7504 September, Bipolar II disorder F31.81 ; Post-traumatic stress disorder , chronic F43.12 and Memory change R41.3 [place] [id number] [place] [address] 98691- 6001 Aug, Bipolar II disorder F31.81 and Post-traumatic stress disorder, chronic F43.12 [place] [id number] [place] [address]- 3546 Aug, Bipolar II disorder F31.81 and Post-traumatic stress disorder, chronic F43.12 [place] [address] [place] [address]- 8143 Jul, Bipolar II disorder F31.81 and Post-traumatic stress disorder, chronic F43.12 [place] [id number] [place] [address]- 6397 Jul, [place] [id number] [place] [address] 25437- 0021 Jul, [place] [id number] [place] [address] 669827- 9370 Jul, Post-traumatic stress disorder, chronic F43.12 and Bipolar disorder, unspecified F31.9 [place] [id number] [place] [address]- 0872 Jun, Bipolar II disorder F31.81 and Post-traumatic stress disorder, chronic F43.12 [place] [id number] [place] [address] 09937- 6675 Jun, Post-traumatic stress disorder, chronic F43.12 and Bipolar disorder, unspecified F31.9 [place] [id number] [place] [address] 58289- 4422 Jun, [place] [address] [id number]- 1231 Jun, Pharyngeal dysphagia R13.13 ; Hoarseness R49.0 and Cough R05 [place] [address] [place] [address] 80106- 2028 Jun, Post-traumatic stress disorder, chronic F43.12 and Bipolar disorder, unspecified F31.9 [facility] [id number] [place] [address] 92030- 6351 May, Cough R05 [facility] [id number] [place] [address] 21817- 7896 30 May, 2015 Post-traumatic stress disorder, chronic F43.12 and Bipolar disorder, unspecified F31.9 [facility] [id number] [place] [address] 68258- 9861 May, Cough R05 [facility] [address] 20260- 2393 16 May, 2015 [facility] [address] [id number] May, Dental examination Z01.20 [facility] [address] 94082- 7387 15 May, 2015 Bipolar II disorder F31.81 and Post-traumatic stress disorder, chronic F43.12 [facility] [id number] [place] [address] 25332- 6093 14 May, 2015 [facility] [address] [address] 14 May, 2015 Bipolar II disorder F31.81 and Anxiety disorder, unspecified F41.9 [facility] [id number] [place] [address]- [address] 10 May, 2015 Memory change R41.3 and History of renal insufficiency syndrome Z87.448 [facility] [id number] [place] [address]- [address] 03 May, 2015 Memory change R41.3 ; Dry mouth R68.2 and History of renal insufficiency syndrome Z87.448 [facility] [id number] [place] [address]- [address]77 May, Bipolar II disorder F31.81 and Post-traumatic stress disorder, chronic F43.12 [place] [id number] [place] [address]- [address]59 Mar, Bipolar disorder, unspecified F31.9 and Generalized anxiety disorder F41.1 [facility] [id number] [place] [address]- [address]101 Mar, Bipolar II disorder F31.81 [facility] [id number] [place] [address] 276[address]- 2300 Mar, Encounter for immunization Z23 [facility] [id number] [place] [address]- [address]351 Mar, [facility] [address] [id number] [place] [address] 90931- 7368 Mar, Bipolar II disorder F31.81 [facility] [id number] [place] [address] 27184- 5201 Mar, [facility] [id number] [place] [address] 13071- 9082 Jan, Bipolar disorder, unspecified 296.80 and Anxiety disorder 300.00 [facility] [id number] [place] [address] 52001- 1381 Jan, [facility] [id number] [place] [address] 29345- 0367 Jan, Bipolar disorder, unspecified 296.80 and Anxiety disorder 300.00 [facility] [id number] [place] [address] 31235- 9693 Dec, Bipolar disorder, unspecified 296.80 and Anxiety disorder 300.00 [facility] [id number] [place] [address] 48055- 2968 Dec, [facility] [id number] [place] [address] 25125- 9325 Dec, Bipolar disorder, unspecified 296.80 and Anxiety disorder 300.00 [facility] [id number] [place] [address] 43305- 6227 Nov, Bipolar disorder, unspecified 296.80 and Anxiety disorder 300.00 [facility] [id number] [place] [address] 27272- 0756 Oct, Bipolar disorder, unspecified 296.80 and Anxiety disorder 300.00 [facility] [id number] [place] [address] 06437- 8946 Oct, Anxiety 300.00 and Bipolar disorder, unspecified 296.80 [facility] [id number] [place] [address] 50847- 6188 September, Bipolar disorder, unspecified 296.80 and Anxiety disorder 300.00 [facility] [id number] [place] [address] 03331- 2884 September, [facility] [id number] [place] [address] 55902- 9190 Aug, Cough 786.2 [facility] [id number] [place] [address] 14335- 9029 Aug, [facility] [id number] [place] [address] 17635- 7573 Aug, [facility] [id number] [place] [address] 58413- 1759 Jul, [facility] [id number] [place] [address] [id number]- 8714 Jul, [facility] [id number] [place] [address] 43050- 3306 Jul, [facility] [id number] [place] [address] 29191- 7168 Jul, [facility] [id number] [place] [address] 222032- 2036 Jul, [facility] [id number] [place] [address] 90596- 6016 Jul, [facility] [id number] [place] [address] 27176- 0440 Jun, [facility] [place] [facility] [address] [id number] [place] [address]- 1896 Jun, [facility] [place] [facility] [address] [id number] [place] [address]- 1506 Jun, [facility] [place] [facility] [address] [facility] [id number] [place] [address]- 2234 Jun, [facility] [place] [facility] [address] [id number] [place] [address]- 4459 May, [facility] [place] [facility] [address] [id number] [place] [address]- 9016 May, [facility] [place] [facility] [address] [id number] [place] [address]- 3456 May, [facility] [place] [facility] [address] [facility] [id number] [place] [address]- 7325 May, [facility] [place] [facility] [address] [facility] [id number] [place] [address]- 2484 Apr, [facility] [place] [facility] [address] [facility] [id number] [place] [address]- 4485 Apr, [facility] [place] [facility] [address] [facility] [id number] [place] [address]- 2733 Mar, [facility] [place] [facility] [address] [id number] [place] [address]- 8693 Mar, [facility] [place] [facility] [address] [id number] [address]- 1654 Mar, [facility] [place] [facility] [address] [id number] [place] [address]- 1540 Mar, [facility] [place] [facility] [address] [facility] [id number] [place] [address]- 1645 Mar, [facility] [place] [facility] [address] [facility] [id number] [place] [address]- 9735 Mar, [facility] [place] [facility] [address] [id number] [place] [address]- 8695 Jan, 2013 [facility] [place] [facility] [address] [id number] [place] [address]- 5836 Jan, 2013 [facility] [place] [facility] [address] [id number] [place] [address]- 0196 Jan, 2013 [facility] [place] [facility] [address] [id number] [place] [address]- 3436 05 Jan, 2013 [facility] [place] [facility] [address] [id number] [place] [address]- 6344 Jan, 2013 [facility] [place] [facility] [address] [id number] [place] [address]- 8531 Jan, 2013 [facility] [place] [facility] [address] [id number] [place] [address]- 6107 Dec, [facility] [place] [facility] [address] [id number] [place] [address]- 4625 Dec, [facility] [place] [facility] [address] [id number] [place] [address]- 5105 Dec, [facility] [place] [facility] [address] [id number] [place] [address]- 7931 Dec, [facility] [place] [facility] [address] [id number] [place] [address]- 7923 Dec, [facility] [place] [facility] [address] [id number] [place] [address]- 0176 Dec, [facility] [place] [facility] [address] [id number] [place] [address]- 3899 Nov, [facility] [place] [facility] [address] [id number] [place] [address]- 8346 Nov, [facility] [place] [facility] [address] [id number] [place] [address]- 4186 Nov, [facility] [place] [facility] [address] [id number] [place] [address]- 1021 Nov, [facility] [place] [facility] [address] [id number] [place] [address]- 5581 Nov, [facility] [place] [facility] [address] [id number] [place] [address]- 8445 Nov, [facility] [place] [facility] [address] [id number] [place] 0702 Nov, [facility] [place] [facility] [address] [id number] [place] [address]- 3094 Nov, [facility] [place] [facility] [address] [id number] [place] [address]- 4334 Nov, [facility] [place] [facility] [address] [id number] [place] [address]- 1201 Nov, [facility] [place] [facility] [address] [id number] [place] [address]- 7997 September, [facility] [place] [facility] [address] [id number] [place] [address]- 6094 September, [facility] [place] [facility] [address] [id number] [place] [address]- 9770 September, [facility] [place] [facility] [address] [id number] [place] [address]- 6519 September, [facility] [place] [facility] [address] [id number] [place] [address]- 4799 September, [facility] [place] [facility] [address] [id number] [place] [address]- 9756 September, [facility] [place] [facility] [address] [id number] [place] [address]- 9054 September, [facility] [place] [facility] [address] [id number] [place] [address]- 2869 September, [facility] [place] [facility] [address] [id number] [place] [address]- 3594 Aug, [facility] [place] [facility] [address] [id number] [place] [address]- 1996 Aug, [facility] [place] [facility] [address] [id number] [place] [address]- 1403 Aug, [facility] [place] [facility] [address] [id number] [place] [address]- 5416 Aug, [facility] [place] [facility] [address] [id number] [place] [address]- 2893 Jul, [facility] [place] [facility] [address] [id number] [place] [address]- 0804 Jul, [facility] [place] [facility] [address] [id number] [place] [address]- 0302 Jul, [facility] [place] [facility] [address] [id number] [place] [address]- 5987 Jul, [facility] [place] [facility] [address] [id number] [place] [address]- 6849 18 Jul, 2013 [facility] [place] [facility] [address] [id number] [place] [address]- 4512 Jul, [facility] [place] [facility] [address] [id number] [place] [address]- 9814 Jul, [facility] [place] [facility] [address] [facility] [id number] [place] [address]- 8959 Jul, [facility] [place] [facility] [address] [id number] [place] [address]- 4675 Jul, [facility] [place] [facility] [address] [id number] [place] [address]- 7737 Jul, [facility] [place] [facility] [address] [id number] [place] 4545 Jul, [facility] [place] [facility] [address] [id number] [place] 7144 Jun, [facility] [place] [facility] [address] [id number] [place] [address]- 2897 Jun, [facility] [place] [facility] [address] [id number] [place] [address]- 4772 Jun, [facility] [place] [facility] [address] [id number] [place] [address]- 9378 Jun, [facility] [place] [facility] [address] [id number] [place] [address]- 0516 May, [facility] [place] [facility] [address] [id number] [place] [address]- 5449 May, [facility] [place] [facility] [address] [id number] [place] [address]- 7024 Apr, [facility] [place] [facility] [address] [id number] [place] [address]- 6208 Apr, [facility] [place] [facility] [address] [id number] [place] [address]- 3842 Apr, [facility] [place] [facility] [address] [id number] [place] [address]- 0030 Apr, [facility] [place] [facility] [address] [id number] [place] [address]- 6273 Apr, [facility] [place] [facility] [address] [id number] [place] [address]- 5219 Apr, [facility] [place] [facility] [address] [id number], [place] [address]- 2602 Apr, [facility] [place] [facility] [address] [id number], [place] [address]- 0776 Apr, [facility] [place] [facility] [address] [id number] [place] [address]- 3291 Apr, [facility] [place] [facility] [address] [id number], [place] [address]- 6689 Apr, [facility] [place] [facility] [address] [id number], [place] [address]- 5205 Apr, [facility] [place] [facility] [address] [id number], [place] [address]- 1568 Apr, [facility] [id number], [place] [address]- 2009 Mar, [facility] [address], [place] [address]- 7699 Mar, [facility] [address], [place] [address]- 6718 Mar, [facility] [address], [place] [address]- 7191 Dec, [facility] [id number] [place] [address] 13626- 7379 Dec, [facility] [address], [place] [address]- 4416 Dec, [facility] [address], [place] [address]- 2814 Oct, [facility] [address], [place] [address]- 1233 May, [facility] [address], [place] [address]- 9053 May, [facility] [address] [id number], [place] [address]- 8895 May, [facility] [address] [id number], [place] [address]- 7584 Dec, IMMUNIZATIONS No Known Immunizations SOCIAL HISTORY [...] Gall Bladder Surgical History Tubalization Hospitalization History [facility] 12/2014 Hospitalization History Obstructive Airway Disease, Mood disorder, cough-[facility] 07/02/15 Hospitalization History Bronchitis- [facility] 06/2016
--- OUTSIDE RECORDS SUMMARY | 2018-02-03 09:21 | XMS REPORT ---
Author Author MARYSOL CANSECO [facility] Address [address] [place] [address] Care Team Providers Care Systems Test Engineer Name Role Phone MARYSOL CANSECO Unavailable PROBLEMS Type Condition ICD9-CM Code HCB93-HC Code Onset Dates Condition Status SNOMED Code Problem Mixed hyperlipidemia E78.2 Active 903632815 Problem Bipolar affective disorder, currently manic, mild F31.11 Active 940381225 Problem Chronic fatigue R53.82 Active 15078308 Problem COPD exacerbation J44.1 Active 476875134 Problem Other chronic pain G89.29 Active 73412920 Problem Chronic obstructive pulmonary disease, unspecified COPD type J44.9 Active 71689986 Problem Slow transit constipation K59.01 Active 83192240 Problem Bipolar disorder, in partial remission, most recent episode mixed F31.77 Active 67429130 Problem Bipolar disorder, current episode mixed, mild F31.61 Active 057317039 Problem Bipolar II disorder F31.81 Active 83558665 Problem History of renal insufficiency syndrome Z87.448 Active 571204835 Problem Pharyngeal dysphagia R13.13 Active [id number] Problem Post-traumatic stress disorder, chronic F43.12 Active 33468345 Problem Confusion R41.0 Active 915070324 Problem Memory change R41.3 Active 641615816 Problem Dizziness R42 Active 996250198 ALLERGIES No Information ENCOUNTERS Encounter Location Date Diagnosis [facility] [id number] [address] Nov, [facility] [id number] [place] [address] 39213- 7013 Oct, [facility] [address], [place] [address] 0[address] Oct, [facility] [address] [place] [address] 60446- 7751 Oct, [place] [id number] [place] [address] 88833- 4184 Oct, [facility] [place] [id number] [place] [address] 56879- 3314 Oct, [place] [address] 50655- 1617 September, Bipolar II disorder F31.81 and Post-traumatic stress disorder, chronic F43.12 [facility] [place] [id number] [place] [address] 62276- 1959 September, Bipolar disorder, in partial remission, most recent episode mixed F31.77 [place] [address] 76663- 9863 September, COPD exacerbation J44.1 and Elevated blood pressure reading R03.[address] 56115- 4726 September, [place] [address] 50967- 8563 September, Pain in left ankle and joints of left foot M25.572 ; Dermatitis L30.9 and Other chronic pain G89.29 [facility] [place] [id number] [place] [address] 24110- 5024 Aug, Right elbow pain M25.521 and Elevated blood pressure reading R03.0 [place] [id number] [place] [address] 78786- 9908 Aug, Bipolar disorder, current episode mixed, mild F31.61 and BMI 40.0-44.9, adult Z68.41 [place] [address] 31806- 2487 Aug, [place] [id number] [place] [address] 86827- 7293 Aug, Bipolar II disorder F31.81 and Post-traumatic stress disorder, chronic F43.12 [place] [id number] [place] [address] 18002- 9627 26 Jul, 2017 Elevated blood pressure reading R03.0 [place] [address] 09593- 7274 Jul, Bipolar II disorder F31.81 and Post-traumatic stress disorder, chronic F43.12 [place] [address] 23035- 5598 Jul, Bipolar disorder, current episode mixed, mild F31.61 [facility] [place] [address] 14472 -7331 Jul, Right foot pain M79.671 ; Allergic contact dermatitis, unspecified trigger L23.9 ; Contusion of right foot, initial encounter S90.31XA and BMI 40.0-44.9, adult Z68.41 [facility] WALK IN [address] [address] -[address] Jul, 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 [place] [address] 81990- 7043 22 Jul, 2017 [place] [address] 68121- 7657 15 Jul, 2017 Bipolar disorder, current episode mixed, mild F31.61 [place] [address] 93728- 2934 15 Jul, 2017 Bipolar II disorder F31.81 ; Post-traumatic stress disorder , chronic F43.12 and Memory change R41.[address] 27121- 7530 14 Jul, 2017 Elevated blood pressure reading R03.0 ; Chronic obstructive pulmonary disease, unspecified COPD type J44.9 ; Long-term use of high-risk medication Z79.899 and Cognitive decline R41.89 [place] [address] 40926- 7188 06 Jul, 2017 Elevated blood pressure reading R03.0 [facility] [address], [place] [address] 1552 05 Jul, 2017 [facility] [id number] [place] [address] 98054- 0157 Jul, Bipolar II disorder F31.81 ; Post-traumatic stress disorder , chronic F43.12 and Memory change R41.3 [place] [id number] [place] [address] 01730- 0227 Jun, [facility] [address] [place] [address] 00777- 4242 Jun, Bipolar II disorder F31.81 ; Post-traumatic stress disorder , chronic F43.12 and Memory change R41.3 [place] [id number] [place] [address] 03886- 6868 Jun, Localized swelling, mass or lump of neck R22.1 ; Slow transit constipation K59.01 and Elevated blood pressure reading R03.0 [place] [id number] [place] [address] 48258- 6231 Jun, [place] [id number] [place] [address] 64755- 8517 Jun, Bipolar affective disorder, currently manic, mild F31.11 [facility] [id number] [place] [address] 73565 -6223 May, [facility] [address] [place] [address] 70316 -1130 May, [place] [id number] [place] [address] 52518- 1133 May, Bipolar II disorder F31.81 ; Post-traumatic stress disorder , chronic F43.12 and Memory change R41.3 [place] [address] [place] [address] 88109- 6409 May, [place] [address] [place] [address] 66594- 4971 08 May, 2017 [facility] [id number] [place] [address] 65644- 5647 May, Bipolar affective disorder, currently manic, mild F31.11 [facility] [id number] [place] [address] 84537- 2770 May, [facility] [id number] [place] [address] 87342 -8089 May, Localized swelling, mass or lump of neck R22.1 and Localized swelling, mass and lump, head R22.0 [facility] [id number] [place] [address] 33845- 2470 Apr, [facility] [id number] [place] [address] 96961- 7540 Apr, Bipolar affective disorder, currently manic, mild F31.11 [facility] [id number] [place] [address] 98085- 7380 07 Apr, 2017 Bipolar II disorder F31.81 [facility] [id number] [place] [address] 81813- 3853 07 Apr, 2017 [facility] [id number] [place] [address] 94740- 4219 Apr, Bipolar affective disorder, currently manic, mild F31.11 [facility] [id number] [place] [address] 38743- 8747 07 Apr, 2017 Actinic keratosis L57.0 [facility] [address] [place] [address] 94286- 6305 Apr, Bipolar affective disorder, currently manic, mild F31.11 [facility] [address], [place] [address]- 3327 Apr, [facility] [id number] [place] [address] 96468 -2168 Mar, Allergic contact dermatitis, unspecified trigger L23.9 and Right leg pain M79.604 [facility] [id number] [place] [address] 63308- 9105 Mar, [facility] [id number] [place] [address] 10360- 6864 Mar, Bipolar II disorder F31.81 ; Post-traumatic stress disorder , chronic F43.12 and Memory change R41.3 [facility] [id number] [place] [address] 30512- 4879 Mar, Actinic keratosis L57.0 [place] [id number] [place] [address] 23761- 6489 Jan, Bipolar II disorder F31.81 ; Post-traumatic stress disorder , chronic F43.12 and Memory change R41.3 [facility] [place] [id number] [place] [address] 38719- 4075 Jan, Bipolar affective disorder, currently manic, mild F31.11 [place] [place] [id number] [place] [address] 43791- 4207 13 Jan, 2017 Bipolar affective disorder, currently manic, mild F31.11 [facility] [id number] [place] [address] 63150- 5592 07 Jan, 2017 Bipolar II disorder F31.81 ; Post-traumatic stress disorder , chronic F43.12 and Memory change R41.3 [place] [address] [place] [address] 27094- 6983 Dec, Bipolar II disorder F31.81 ; Post-traumatic stress disorder , chronic F43.12 and Memory change R41.3 [place] [address] [place] [address] 50788- 9775 Dec, Bipolar affective disorder, currently manic, mild F31.11 [place] [place] [id number] [place] [address] 56004- 8328 Dec, Bipolar affective disorder, currently manic, mild F31.11 [facility] [address], [place] [address]- 0996 Dec, Post-traumatic stress disorder, chronic F43.12 [facility] [address], [place] [address]- 1206 Dec, Bipolar II disorder F31.81 ; Post-traumatic stress disorder , chronic F43.12 and Memory change R41.3 [facility] [id number] [place] [address] 24837- 7277 Dec, Post-traumatic stress disorder, chronic F43.12 [facility] [id number] [place] [address] 30294- 5608 Nov, [facility] [id number] [place] [address] 29875- 0040 Nov, Bipolar II disorder F31.81 ; Post-traumatic stress disorder , chronic F43.12 and Memory change R41.3 [facility] [address] [place] [address] 79854- 2344 Nov, [facility] [id number] [place] [address] 79920- 1331 Nov, Post-traumatic stress disorder, chronic F43.12 and Bipolar II disorder F31.81 [facility] [address] [place] [address] 99926- 7146 Nov, Actinic keratosis L57.0 [facility] [address] [place] [address] 72549- 5847 Oct, Bipolar II disorder F31.81 ; Post-traumatic stress disorder , chronic F43.12 and Memory change R41.3 [facility] [address] [place] [address] 63615- 0746 Oct, Post-traumatic stress disorder, chronic F43.12 ; Bipolar II disorder F31.81 and Memory change R41.3 [facility] [id number] [place] [address] 95256- 1537 Oct, Bipolar II disorder F31.81 ; Post-traumatic stress disorder , chronic F43.12 and Memory change R41.3 [facility] [address], [place] [address]- 8572 Oct, Actinic keratosis L57.0 [facility] [address], [place] [address]- 2760 September, Bipolar II disorder F31.81 ; Post-traumatic stress disorder , chronic F43.12 and Memory change R41.3 [facility] [address], [place] [address]- 5580 September, Bipolar II disorder F31.81 ; Post-traumatic stress disorder , chronic F43.12 and Memory change R41.3 [place] [address], [place] [address]- 1711 September, Post-traumatic stress disorder, chronic F43.12 ; Bipolar II disorder F31.81 and Memory change R41.3 [facility] [address], [place] [address]- 3994 Jul, Bipolar II disorder F31.81 ; Post-traumatic stress disorder , chronic F43.12 and Memory change R41.3 [facility] [address], [place] [address]- 0766 Jul, Bipolar II disorder F31.81 ; Post-traumatic stress disorder , chronic F43.12 and Memory change R41.3 [facility] [address], [place] [address]- 5677 Jul, Bipolar II disorder F31.81 ; Post-traumatic stress disorder , chronic F43.12 and Memory change R41.3 [facility] [address], [place] [address]- 3634 Jul, Post-traumatic stress disorder, chronic F43.12 ; Bipolar II disorder F31.81 and Memory change R41.3 [facility] [id number] [place] [address] 52159- 0098 Jul, Tear of medial meniscus of right knee, unspecified tear type , unspecified whether old or current tear, initial encounter S83.241A [place] [id number] [place] [address]- 2035 Jul, Bipolar II disorder F31.81 ; Post-traumatic stress disorder , chronic F43.12 and Memory change R41.3 [place] [address] 64153- 6167 Jul, Shortness of breath R06.02 ; Mixed hyperlipidemia E78.2 and Chronic fatigue R53.[address] 28929- 5548 Jul, Bipolar II disorder F31.81 ; Post-traumatic stress disorder , chronic F43.12 and Memory change R41.3 [place] [address] 98542- 0501 Jul, [place] [address] 32433- 4295 Jun, Bipolar II disorder F31.81 ; Post-traumatic stress disorder , chronic F43.12 and Memory change R41.3 [place] [id number] [place] [address] 79856- 7583 Jun, Post-traumatic stress disorder, chronic F43.12 ; Bipolar II disorder F31.81 and Memory change R41.3 [place] [id number] [place] [address] 74281- 7730 Jun, Right anterior knee pain M25.561 ; Shortness of breath R06.02 and Bronchiolitis J21.9 [place] [id number] [place] [address] 03755- 9764 Jun, [place] [id number] [place] [address] 60566- 4536 Jun, Bipolar II disorder F31.81 ; Post-traumatic stress disorder , chronic F43.12 and Memory change R41.3 [facility] [id number], [place] [address] 2546 Jun, [facility] [id number] [place] [address] 89469 2546 Jun, Bipolar II disorder F31.81 ; Post-traumatic stress disorder , chronic F43.12 and Memory change R41.3 [facility] [id number] [place] [address] 33075 2546 May, [facility] [id number] [place] [address] 43278- 0876 May, [facility] [id number] [place] [address] 40425- 2696 May, [facility] [id number] [place] [address] 89302- 0736 May, Right anterior knee pain M25.561 ; Cough R05 ; Skin lesion of right arm L98.9 and Lesion of skin of face L98.9 [facility] [address], [place] [address]- 6846 May, [facility] [id number] [place] [address] 97041 2546 May, Post-traumatic stress disorder, chronic F43.12 ; Memory change R41.3 and Bipolar I disorder, most recent episode manic F31.10 [facility] [address], [place] [address] 2546 May, [facility] [id number], [place] [address] 2546 May, Right anterior knee pain M25.561 [facility] [id number] [place] [address] 72189 2546 May, [facility] [address] [place] [address] 80610- 8366 30 Nov, 2016 Bipolar II disorder F31.81 ; Post-traumatic stress disorder , chronic F43.12 and Memory change R41.3 [place] [id number] [place] [address] 95450- 7631 Apr, Bipolar II disorder F31.81 ; Post-traumatic stress disorder , chronic F43.12 and Memory change R41.3 [place] [id number] [place] [address] 27156- 4972 Apr, Post-traumatic stress disorder, chronic F43.12 ; Bipolar II disorder F31.81 and Memory change R41.3 [place] [id number] [place] [address] 44766- 6148 Mar, Bipolar II disorder F31.81 ; Post-traumatic stress disorder , chronic F43.12 and Memory change R41.3 [place] [place] [id number] [place] [address] 70423- 1889 Mar, Memory change R41.3 ; Confusion R41.0 and Dizziness R42 [place] [id number] [place] [address] 59264- 3641 Mar, Memory change R41.3 ; Encounter for immunization Z23 and Fatigue, unspecified type R53.83 [place] [id number] [place] [address] 70608- 3611 Mar, Bipolar II disorder F31.81 ; Post-traumatic stress disorder , chronic F43.12 and Memory change R41.3 [place] [id number] [place] [address] 06351- 2338 Jan, Bipolar II disorder F31.81 ; Post-traumatic stress disorder , chronic F43.12 and Memory change R41.3 [place] [id number] [place] [address] 10740- 0038 Jan, Post-traumatic stress disorder, chronic F43.12 ; Bipolar II disorder F31.81 ; Anxiety disorder, unspecified F41.9 and Memory change R41.3 [place] [id number] [place] [address] 67086- 2089 15 Feb, 2016 Bipolar II disorder F31.81 ; Post-traumatic stress disorder , chronic F43.12 and Memory change R41.3 [facility] [address] [place] [address] 51664- 6903 Dec, Bipolar II disorder F31.81 ; Post-traumatic stress disorder , chronic F43.12 and Memory change R41.3 [facility] [address] [place] [address] 27603- 3303 Dec, Memory loss R41.3 [facility] [id number] [place] [address] 33347- 4360 Dec, Bipolar II disorder F31.81 ; Post-traumatic stress disorder , chronic F43.12 and Memory change R41.3 [facility] [address] [place] [address] 26700- 0251 Nov, Bipolar II disorder F31.81 and Post-traumatic stress disorder, chronic F43.12 [facility] [address] [place] [address] 66805- 4561 Nov, Bipolar II disorder F31.81 ; Post-traumatic stress disorder , chronic F43.12 and Memory change R41.3 [facility] [address], [place] [address]- 2918 Oct, Post-traumatic stress disorder, chronic F43.12 and Bipolar disorder, unspecified F31.9 [facility] [address], [place] [address]- 3220 Oct, Bipolar II disorder F31.81 ; Post-traumatic stress disorder , chronic F43.12 and Memory change R41.3 [facility] [address] [place] [address] [id number] Oct, Dental examination Z01.20 [facility] [address], [place] [address]- 2968 September, Bipolar II disorder F31.81 ; Post-traumatic stress disorder , chronic F43.12 and Memory change R41.3 [place] [id number] [place] [address] 90048- 5624 Aug, Bipolar II disorder F31.81 and Post-traumatic stress disorder, chronic F43.12 [place] [id number] [place] [address]- 5906 Aug, Bipolar II disorder F31.81 and Post-traumatic stress disorder, chronic F43.12 [place] [id number] [place] [address]- 7957 Jul, Bipolar II disorder F31.81 and Post-traumatic stress disorder, chronic F43.12 [place] [id number] [place] [address]- 4028 Jul, [place] [id number] [place] [address] 72770- 7807 Jul, [place] [id number] [place] [address] 077013- 0169 Jul, Post-traumatic stress disorder, chronic F43.12 and Bipolar disorder, unspecified F31.9 [place] [id number] [place] [address]- 5402 Jun, Bipolar II disorder F31.81 and Post-traumatic stress disorder, chronic F43.12 [place] [id number] [place] [address] 52829- 7050 Jun, Post-traumatic stress disorder, chronic F43.12 and Bipolar disorder, unspecified F31.9 [place] [id number] [place] [address] 68949- 4120 Jun, [place] [address] [place] [address] [id number]- 2011 Jun, Pharyngeal dysphagia R13.13 ; Hoarseness R49.0 and Cough R05 [place] [id number] [place] [address] 51666- 6656 Jun, Post-traumatic stress disorder, chronic F43.12 and Bipolar disorder, unspecified F31.9 [facility] [id number] [place] [address] 29499- 3393 May, Cough R05 [facility] [id number] [place] [address] 04897- 2076 30 May, 2015 Post-traumatic stress disorder, chronic F43.12 and Bipolar disorder, unspecified F31.9 [facility] [id number] [place] [address] 58270- 5737 May, Cough R05 [facility] [address] 13827- 2742 16 May, 2015 [facility] [address] [id number] May, Dental examination Z01.20 [facility] [address] 16777- 8472 15 May, 2015 Bipolar II disorder F31.81 and Post-traumatic stress disorder, chronic F43.12 [facility] [id number] [place] [address] 97261- 9744 14 May, 2015 [facility] [address] 58058- 9640 14 May, 2015 Bipolar II disorder F31.81 and Anxiety disorder, unspecified F41.9 [facility] [id number] [place] [address] 29128- 8338 10 May, 2015 Memory change R41.3 and History of renal insufficiency syndrome Z87.448 [facility] [id number] [place] [address] 45595- 7057 03 May, 2015 Memory change R41.3 ; Dry mouth R68.2 and History of renal insufficiency syndrome Z87.448 [facility] [id number] [place] [address] 82294- 0379 May, Bipolar II disorder F31.81 and Post-traumatic stress disorder, chronic F43.12 [place] [address] [place] [address] 69810- 1381 Mar, Bipolar disorder, unspecified F31.9 and Generalized anxiety disorder F41.1 [facility] [id number] [place] [address] 58876- 0082 Mar, Bipolar II disorder F31.81 [facility] [id number] [place] [address] 44346- 0760 Mar, Encounter for immunization Z23 [facility] [id number] [place] [address] 57038- 7853 Mar, [facility] [id number] [place] [address] 85008- 5668 Mar, Bipolar II disorder F31.81 [facility] [id number] [place] [address] 58385- 2343 Mar, [facility] [id number] [place] [address] 92148- 0788 Jan, Bipolar disorder, unspecified 296.80 and Anxiety disorder 300.00 [facility] [id number] [place] [address] 11204- 4504 Jan, [facility] [id number] [place] [address] 37297- 3196 Jan, Bipolar disorder, unspecified 296.80 and Anxiety disorder 300.00 [facility] [id number] [place] [address] 93521- 6836 Dec, Bipolar disorder, unspecified 296.80 and Anxiety disorder 300.00 [facility] [id number] [place] [address] 10850- 3464 Dec, [facility] [id number] [place] [address] 04495- 4244 Dec, Bipolar disorder, unspecified 296.80 and Anxiety disorder 300.00 [facility] [id number] [place] [address] 17101- 5270 Nov, Bipolar disorder, unspecified 296.80 and Anxiety disorder 300.00 [facility] [id number] [place] [address] 50598- 4916 Oct, Bipolar disorder, unspecified 296.80 and Anxiety disorder 300.00 [facility] [id number] [place] [address] 22648- 0666 Oct, Anxiety 300.00 and Bipolar disorder, unspecified 296.80 [facility] [id number] [place] [address] 45132- 2439 September, Bipolar disorder, unspecified 296.80 and Anxiety disorder 300.00 [facility] [id number] [place] [address] 28379- 9419 September, [facility] [id number] [place] [address] 26906- 3038 Aug, Cough 786.2 [facility] [id number] [place] [address] 82494- 9731 Aug, [facility] [id number] [place] [address] 74769- 0176 Aug, [facility] [id number] [place] [address] 44186- 4988 Jul, [facility] [id number] [place] [address] [id number]- 7610 Jul, [facility] [id number] [place] [address] 37496- 8636 Jul, [facility] [id number] [place] [address] 31451- 8261 Jul, [facility] [id number] [place] [address] 964849- 9966 Jul, [facility] [id number] [place] [address] 58326- 2156 Jul, [facility] [id number] [place] [address] 18382- 2755 Jun, [facility] [place] [facility] [address] [id number] [place] [address] 3372 Jun, [facility] [place] [facility] [address] [id number] [place] [address]- 8489 Jun, [facility] [place] [facility] [address] [facility] [id number] [place] [address]- 5574 Jun, [facility] [place] [facility] [address] [id number] [place] [address]- 4703 May, [facility] [place] [facility] [address] [id number] [place] [address]- 3916 May, [facility] [place] [facility] [address] [id number] [place] [address]- 0272 May, [facility] [place] [facility] [address] [facility] [id number] [place] [address]- 8283 May, [facility] [place] [facility] [address] [facility] [id number] [place] [address]- 0858 Apr, [facility] [place] [facility] [address] [facility] [id number] [place] [address]- 2320 Apr, [facility] [place] [facility] [address] [facility] [id number] [place] [address]- 2515 Mar, [facility] [place] [facility] [address] [id number] [place] [address]- 4623 Mar, [facility] [place] [facility] [address] [id number], [place] [address]- 4264 Mar, [facility] [place] [facility] [address] [id number] [place] [address]- 1035 Mar, [facility] [place] [facility] [address] [facility] [id number] [place] [address]- 4712 Mar, [facility] [place] [facility] [address] [facility] [id number] [place] [address]- 9913 Mar, [facility] [place] [facility] [address] [id number] [place] [address]- 6425 Jan, 2013 [facility] [place] [facility] [address] [id number] [place] [address]- 3356 Jan, 2013 [facility] [place] [facility] [address] [id number] [place] [address]- 6106 Jan, 2013 [facility] [place] [facility] [address] [id number] [place] [address]- 5306 05 Jan, 2013 [facility] [place] [facility] [address] [id number] [place] [address]- 4760 Jan, 2013 [facility] [place] [facility] [address] [id number] [place] [address]- 0758 Jan, 2013 [facility] [place] [facility] [address] [id number] [place] [address]- 0104 Dec, [facility] [place] [facility] [address] [id number] [place] [address]- 0033 Dec, [facility] [place] [facility] [address] [id number] [place] [address]- 7322 Dec, [facility] [place] [facility] [address] [id number] [place] [address]- 5380 Dec, [facility] [place] [facility] [address] [id number] [place] [address]- 1020 Dec, [facility] [place] [facility] [address] [id number] [place] [address]- 6757 Dec, [facility] [place] [facility] [address] [id number] [place] [address]- 7609 Nov, [facility] [place] [facility] [address] [id number] [place] [address]- 0226 Nov, [facility] [place] [facility] [address] [id number] [place] [address]- 8006 Nov, [facility] [place] [facility] [address] [id number] [place] [address]- 0034 Nov, [facility] [place] [facility] [address] [id number] [place] [address]- 3514 Nov, [facility] [place] [facility] [address] [id number] [place] [address]- 2058 Nov, [facility] [place] [facility] [address] [id number] [place] [address]285 Nov, [facility] [place] [facility] [address] [id number] [place] [address]- 5090 Nov, [facility] [place] [facility] [address] [id number] [place] [address]- 5913 Nov, [facility] [place] [facility] [address] [id number] [place] [address]- 8949 Nov, [facility] [place] [facility] [address] [id number] [place] [address]- 3441 September, [facility] [place] [facility] [address] [id number] [place] [address]- 2734 September, [facility] [place] [facility] [address] [id number] [place] [address]- 6792 September, [facility] [place] [facility] [address] [id number] [place] [address]- 0840 September, [facility] [place] [facility] [address] [id number] [place] [address]- 3095 September, [facility] [place] [facility] [address] [id number] [place] [address]- 7243 September, [facility] [place] [facility] [address] [id number] [place] [address]- 7660 September, [facility] [place] [facility] [address] [id number] [place] [address]- 3978 September, [facility] [place] [facility] [address] [id number] [place] [address]- 2722 Aug, [facility] [place] [facility] [address] [id number] [place] [address]- 7231 Aug, [facility] [place] [facility] [address] [id number] [place] [address]- 1666 Aug, [facility] [place] [facility] [address] [id number] [place] [address]- 4585 Aug, [facility] [place] [facility] [address] [id number] [place] [address]- 5725 Jul, [facility] [place] [facility] [address] [id number] [place] [address]- 6189 Jul, [facility] [place] [facility] [address] [id number] [place] [address]- 1563 Jul, [facility] [place] [facility] [address] [id number] [place] [address]- 4007 Jul, [facility] [place] [facility] [address] [id number] [place] [address]- 0852 18 Jul, 2013 [facility] [place] [facility] [address] [id number] [place] [address]- 5429 Jul, [facility] [place] [facility] [address] [id number] [place] [address]- 4189 Jul, [facility] [place] [facility] [address] [facility] [id number] [place] [address]- 1923 Jul, [facility] [place] [facility] [address] [id number] [place] [address]- 7239 Jul, [facility] [place] [facility] [address] [id number] [place] [address]- 6175 Jul, [facility] [place] [facility] [address] [id number] [place] 4619 Jul, [facility] [place] [facility] [address] [id number] [place] 8425 Jun, [facility] [place] [facility] [address] [id number] [place] [address]- 5017 Jun, [facility] [place] [facility] [address] [id number] [place] [address]- 5025 Jun, [facility] [place] [facility] [address] [id number] [place] [address]- 5392 Jun, [facility] [place] [facility] [address] [id number] [place] [address]- 5198 May, [facility] [place] [facility] [address] [id number] [place] [address]- 7348 May, [facility] [place] [facility] [address] [id number] [place] [address]- 2966 Apr, [facility] [place] [facility] [address] [id number] [place] [address]- 4110 Apr, [facility] [place] [facility] [address] [id number] [place] [address]- 8455 Apr, [facility] [place] [facility] [address] [id number] [place] [address]- 3823 Apr, [facility] [place] [facility] [address] [id number] [place] [address]- 6613 Apr, [facility] [place] [facility] [address] [id number] [place] [address]- 4289 Apr, [facility] [place] [facility] [address] [id number], [place] [address]- 1369 Apr, [facility] [place] [facility] [address] [id number], [place] [address]- 0847 Apr, [facility] [place] [facility] [address] [id number] [place] [address]- 1607 Apr, [facility] [place] [facility] [address] [id number], [place] [address]- 6353 Apr, [facility] [place] [facility] [address] [id number], [place] [address]- 4465 Apr, [facility] [place] [facility] [address] [id number] [address]- 8374 Apr, [facility] [id number], [place] [address]- 7980 Mar, [facility] [id number], [place] [address]- 3876 Mar, [facility] [id number], [place] [address]- 6166 Mar, [facility] [id number], [place] [address]- 2580 Dec, [facility] [id number] [place] [address] 27787- 1639 Dec, [facility] [id number], [place] [address]- 3398 Dec, [facility] [id number], [place] [address]- 5608 Oct, [facility] [id number], [place] [address]- 1348 May, [facility] [id number], [place] [address]- 8507 May, [facility] [id number], [place] [address]- 5493 May, [facility] [id number] [address]- 9250 Dec, IMMUNIZATIONS No Known Immunizations SOCIAL HISTORY Never Assessed REASON FOR VISIT Medication refill request PLAN OF CARE VITAL SIGNS MEDICATIONS Medication Instructions Dosage Frequency Start Date End Date Duration Status Nexium 40MG Orally Once a day TAKE 1 CAPSULE DAILY 24h 90 days Active RESULTS No Results PROCEDURES [...] Gall Bladder Surgical History Tubalization Hospitalization History [facility] 12/2014 Hospitalization History Obstructive Airway Disease, Mood disorder, cough-[facility] 07/02/15 Hospitalization History Bronchitis- [facility] 06/2016
--- OUTSIDE RECORDS SUMMARY | 2018-02-03 09:22 | XMS REPORT ---
Author Author JOHNSONMADDY Paiz Organization [facility] Address [address] [place] [address] Care Team Providers Care Psychiatric Tech Name Role Phone JOHNSONMADDY Paiz Unavailable PROBLEMS Type Condition ICD9-CM Code EXF45-RT Code Onset Dates Condition Status SNOMED Code Problem Slow transit constipation K59.01 Active 36813765 Problem Bipolar disorder, current episode mixed, mild F31.61 Active 011194254 Problem Chronic obstructive pulmonary disease, unspecified COPD type J44.9 Active 54272303 Problem Bipolar II disorder F31.81 Active 72236801 Problem Post-traumatic stress disorder, chronic F43.12 Active 20354637 Problem Bipolar affective disorder, currently manic, mild F31.11 Active 028888124 Problem Lumbago with sciatica, left side M54.42 Active 323628714 Problem Essential hypertension I10 Active 00754197 Problem Other chronic pain G89.29 Active 17875643 Problem Bipolar disorder, in partial remission, most recent episode mixed F31.77 Active 76379388 Problem Paresthesias R20.2 Active 61846625 Problem Irritable bowel syndrome with both constipation and diarrhea K58.2 Active 76892793 ALLERGIES No Information ENCOUNTERS Encounter Location Date Diagnosis [facility] [address] [address] Jan, [facility] [id number] [place] [address] 73416- 8387 Jan, [facility] [id number] [place] [address] 98531- 0160 Jan, [facility] [id number] [place] [address] 77348- 0081 Dec, [facility] [id number] [place] [address] 49092- 7474 Nov, Bipolar II disorder F31.81 and Post-traumatic stress disorder, chronic F43.12 [facility] [id number] [place] [address] 09789- 2916 Nov, Essential hypertension I10 ; Lymph node enlargement R59.9 ; Paresthesias R20.2 ; Irritable bowel syndrome with both constipation and diarrhea K58.2 ; Lumbago with sciatica, left side M54.42 and Other chronic pain G89.29 [facility] [id number] [place] [address] 20373- 3507 Nov, Bipolar disorder, in partial remission, most recent episode mixed F31.77 [facility] [id number] [place] [address] 92531- 6430 Oct, Bipolar disorder, in partial remission, most recent episode mixed F31.77 [facility] [id number] [place] [address] 33989 -3466 Oct, Scabies B86 [facility] [id number] [place] [address] 48069- 6612 Oct, Bipolar disorder, in partial remission, most recent episode mixed F31.77 [facility] [id number] [place] [address] 22266- 1354 Oct, [facility] [id number] [place] [address] 13094- 8191 Oct, Bipolar II disorder F31.81 and Post-traumatic stress disorder, chronic F43.12 [facility] [id number] [place] [address] 23403 -3958 Oct, Scabies B86 [facility] [id number] [place] [address] 67034- 8532 Oct, [facility] [id number] [place] [address] 84095- 1656 September, Bipolar II disorder F31.81 and Post-traumatic stress disorder, chronic F43.12 [facility] [id number] [place] [address] 48907- 2561 September, Bipolar disorder, in partial remission, most recent episode mixed F31.77 [facility] [id number] [place] [address] 16115- 3283 September, COPD exacerbation J44.1 and Elevated blood pressure reading R03.0 [place] [address] 32686- 4569 September, [place] [address] 08677- 0865 September, Pain in left ankle and joints of left foot M25.572 ; Dermatitis L30.9 and Other chronic pain G89.29 [facility] [id number] [place] [address] 68662- 9424 Aug, Right elbow pain M25.521 and Elevated blood pressure reading R03.0 [facility] [facility] [address] 10466- 4592 Aug, Bipolar disorder, current episode mixed, mild F31.61 and BMI 40.0-44.9, adult Z68.41 [facility] [id number] [place] [address] 17287- 3509 Aug, [facility] [id number] [place] [address] 30409- 0511 Aug, Bipolar II disorder F31.81 and Post-traumatic stress disorder, chronic F43.12 [facility] [id number] [place] [address] 91910- 5909 Jul, Elevated blood pressure reading R03.0 [place] [address] 49897- 9491 Jul, Bipolar II disorder F31.81 and Post-traumatic stress disorder, chronic F43.12 [facility] [id number] [place] [address] 57987- 3146 Jul, Bipolar disorder, current episode mixed, mild F31.61 [facility] [id number] [place] [address] 74850 -6837 12 Jul, 2017 Right foot pain M79.671 ; Allergic contact dermatitis, unspecified trigger L23.9 ; Contusion of right foot, initial encounter S90.31XA and BMI 40.0-44.9, adult Z68.41 [facility] [id number] [place] [address] 17365 -2207 Jul, 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 [facility] [address] 11244- 1153 Jul, [address] 06745- 3445 15 Jul, 2017 Bipolar disorder, current episode mixed, mild F31.61 [facility] [address] 28824- 8895 15 Jul, 2017 Bipolar II disorder F31.81 ; Post-traumatic stress disorder , chronic F43.12 and Memory change R41.3 [facility] [id number] [place] [address] 59013- 5742 14 Jul, 2017 Elevated blood pressure reading R03.0 ; Chronic obstructive pulmonary disease, unspecified COPD type J44.9 ; Long-term use of high-risk medication Z79.899 and Cognitive decline R41.89 [facility] [id number] [place] [address] 84904- 9531 06 Jul, 2017 Elevated blood pressure reading R03.0 [facility] [id number] [place] [address] 38785- 1061 05 Jul, 2017 [place] [address] 91454- 9065 Jul, Bipolar II disorder F31.81 ; Post-traumatic stress disorder , chronic F43.12 and Memory change R41.3 [facility] [id number] [place] [address] 76462- 2381 Jun, [place] [id number] [place] [address] 45041- 9329 Jun, Bipolar II disorder F31.81 ; Post-traumatic stress disorder , chronic F43.12 and Memory change R41.3 [facility] [id number] [place] [address] 54570- 1835 Jun, Localized swelling, mass or lump of neck R22.1 ; Slow transit constipation K59.01 and Elevated blood pressure reading R03.0 [facility] [id number] [place] [address] 78897- 8641 Jun, [facility] [id number] [place] [address] 39884- 4129 Jun, Bipolar affective disorder, currently manic, mild F31.11 [facility] [place] [id number] [place] [address] 56759 -0951 15 May, 2017 [facility] [place] [id number] [place] [address] 96626 -6007 May, [facility] [id number] [place] [address] 19606- 4859 May, Bipolar II disorder F31.81 ; Post-traumatic stress disorder , chronic F43.12 and Memory change R41.3 [facility] [id number] [place] [address] 75584- 1859 May, [facility] [id number] [place] [address] 71089- 3916 May, [place] [id number] [place] [address] 42639- 3723 05 May, 2017 Bipolar affective disorder, currently manic, mild F31.11 [facility] [place] [id number] [place] [address] 87970- 5668 May, [facility] [place] [id number] [place] [address] 25357 -5153 May, Localized swelling, mass or lump of neck R22.1 and Localized swelling, mass and lump, head R22.0 [facility] [id number] [place] [address] 01914- 9979 Apr, [facility] [id number] [place] [address] 60512- 4727 Apr, Bipolar affective disorder, currently manic, mild F31.11 [facility] [id number] [place] [address] 91502- 5106 Apr, Bipolar II disorder F31.81 [facility] [id number] [place] [address] 82493- 9337 Apr, [facility] [id number] [place] [address] 49225- 3909 Apr, Bipolar affective disorder, currently manic, mild F31.11 [facility] [id number] [place] [address] 46314- 8618 Apr, Actinic keratosis L57.0 [facility] [id number] [place] [address] 53645- 4654 Apr, Bipolar affective disorder, currently manic, mild F31.11 [facility] [id number] [place] [address] 29641- 8057 Apr, [facility] [id number] [place] [address] 52233 -8448 Mar, Allergic contact dermatitis, unspecified trigger L23.9 and Right leg pain M79.604 [facility] [id number] [place] [address] 61416- 5336 Mar, [facility] [address] 90477- 5461 Mar, Bipolar II disorder F31.81 ; Post-traumatic stress disorder , chronic F43.12 and Memory change R41.3 [facility] [id number] [place] [address] 92040- 5145 Mar, Actinic keratosis L57.0 [facility] [address], [place] [address]- 2806 Jan, Bipolar II disorder F31.81 ; Post-traumatic stress disorder , chronic F43.12 and Memory change R41.3 [facility] [address], [place] [address]- 5568 28 Jan, 2017 Bipolar affective disorder, currently manic, mild F31.11 [facility] [id number] [place] [address] 78493- 2232 13 Jan, 2017 Bipolar affective disorder, currently manic, mild F31.11 [facility] [id number] [place] [address] 10842- 4116 07 Jan, 2017 Bipolar II disorder F31.81 ; Post-traumatic stress disorder , chronic F43.12 and Memory change R41.3 [place] [id number] [place] [address] 83190- 7822 Dec, Bipolar II disorder F31.81 ; Post-traumatic stress disorder , chronic F43.12 and Memory change R41.3 [place] [id number] [place] [address] 86177- 3564 Dec, Bipolar affective disorder, currently manic, mild F31.11 [facility] [address], [place] [address]- 6137 Dec, Bipolar affective disorder, currently manic, mild F31.11 [facility] [address], [place] [address]- 8327 Dec, Post-traumatic stress disorder, chronic F43.12 [facility] [address], [place] [address]- 0525 Dec, Bipolar II disorder F31.81 ; Post-traumatic stress disorder , chronic F43.12 and Memory change R41.3 [facility] [id number] [place] [address] 57297- 0830 Dec, Post-traumatic stress disorder, chronic F43.12 [facility] [address], [place] [address]- 6582 Nov, [facility] [id number] [place] [address] 61066- 0237 Nov, Bipolar II disorder F31.81 ; Post-traumatic stress disorder , chronic F43.12 and Memory change R41.3 [facility] [id number] [place] [address] 15625- 5125 Nov, [facility] [id number] [place] [address] 00044- 7224 Nov, Post-traumatic stress disorder, chronic F43.12 and Bipolar II disorder F31.81 [facility] [id number] [place] [address] 51372- 3363 Nov, Actinic keratosis L57.0 [facility] [id number] [place] [address] 73257- 1990 Oct, Bipolar II disorder F31.81 ; Post-traumatic stress disorder , chronic F43.12 and Memory change R41.3 [facility] [id number] [place] [address] 78727- 7628 Oct, Post-traumatic stress disorder, chronic F43.12 ; Bipolar II disorder F31.81 and Memory change R41.3 [facility] [address], [place] [address]- 4931 Oct, Bipolar II disorder F31.81 ; Post-traumatic stress disorder , chronic F43.12 and Memory change R41.3 [facility] [address], [place] [address]- 8617 Oct, Actinic keratosis L57.0 [facility] [id number] [place] [address] 47678- 9763 September, Bipolar II disorder F31.81 ; Post-traumatic stress disorder , chronic F43.12 and Memory change R41.3 [place] [address], [place] [address]- 8084 September, Bipolar II disorder F31.81 ; Post-traumatic stress disorder , chronic F43.12 and Memory change R41.3 [facility] [address], [place] [address]- 9672 September, Post-traumatic stress disorder, chronic F43.12 ; Bipolar II disorder F31.81 and Memory change R41.3 [place] [address], [place] [address]- 6564 Jul, Bipolar II disorder F31.81 ; Post-traumatic stress disorder , chronic F43.12 and Memory change R41.3 [place] [address], [place] [address]- 2859 Jul, Bipolar II disorder F31.81 ; Post-traumatic stress disorder , chronic F43.12 and Memory change R41.3 [place] [address] [place] [address] 37210- 0205 Jul, Bipolar II disorder F31.81 ; Post-traumatic stress disorder , chronic F43.12 and Memory change R41.3 [place] [address] [place] [address] 48374- 2722 Jul, Post-traumatic stress disorder, chronic F43.12 ; Bipolar II disorder F31.81 and Memory change R41.3 [place] [id number] [place] [address] 10607- 3383 Jul, Tear of medial meniscus of right knee, unspecified tear type , unspecified whether old or current tear, initial encounter S83.241A [place] [id number] [place] [address]- 6422 Jul, Bipolar II disorder F31.81 ; Post-traumatic stress disorder , chronic F43.12 and Memory change R41.3 [facility] [id number] [place] [address] 42326- 8817 Jul, Shortness of breath R06.02 ; Mixed hyperlipidemia E78.2 and Chronic fatigue R53.82 [facility] [place] [id number] [place] [address] 62429- 3859 07 Jul, 2016 Bipolar II disorder F31.81 ; Post-traumatic stress disorder , chronic F43.12 and Memory change R41.3 [place] [id number] [place] [address] 02140- 8909 Jul, [place] [address] 23612- 4943 Jun, Bipolar II disorder F31.81 ; Post-traumatic stress disorder , chronic F43.12 and Memory change R41.3 [facility] [id number] [place] [address] 34370- 6276 Jun, Post-traumatic stress disorder, chronic F43.12 ; Bipolar II disorder F31.81 and Memory change R41.3 [facility] [place] [id number] [place] [address] 56795- 6835 Jun, Right anterior knee pain M25.561 ; Shortness of breath R06.02 and Bronchiolitis J21.9 [facility] [id number] [place] [address] 22507- 8203 Jun, [facility] [place] [id number] [place] [address] 04433- 8943 Jun, Bipolar II disorder F31.81 ; Post-traumatic stress disorder , chronic F43.12 and Memory change R41.3 [place] [id number] [place] [address] 78119- 4729 Jun, [address] 64723- 4944 Jun, Bipolar II disorder F31.81 ; Post-traumatic stress disorder , chronic F43.12 and Memory change R41.3 [place] [id number] [place] [address] 56610- 0177 May, [facility] [address], [place] [address]- 9584 May, [facility] [address], [place] [address]- 4186 May, [facility] [address], [place] [address]- 0857 May, Right anterior knee pain M25.561 ; Cough R05 ; Skin lesion of right arm L98.9 and Lesion of skin of face L98.9 [facility] [address], [place] [address]- 6543 May, [facility] [id number] [place] [address] 75172- 9915 May, Post-traumatic stress disorder, chronic F43.12 ; Memory change R41.3 and Bipolar I disorder, most recent episode manic F31.10 [facility] [id number] [place] [address] 79544- 0537 May, [facility] [id number] [place] [address] 39118- 3910 May, Right anterior knee pain M25.561 [facility] [address], [place] [address]- 2026 May, [facility] [address], [place] [address]- 5560 Apr, Bipolar II disorder F31.81 ; Post-traumatic stress disorder , chronic F43.12 and Memory change R41.3 [facility] [address] [address]- 0293 17 Apr, 2016 Bipolar II disorder F31.81 ; Post-traumatic stress disorder , chronic F43.12 and Memory change R41.3 [facility] [address] [address]- 2802 09 Apr, 2016 Post-traumatic stress disorder, chronic F43.12 ; Bipolar II disorder F31.81 and Memory change R41.3 [place] [address] [place] [address] 99107- 6387 Mar, Bipolar II disorder F31.81 ; Post-traumatic stress disorder , chronic F43.12 and Memory change R41.3 [place] [id number] [place] [address] 37980- 8441 Mar, Memory change R41.3 ; Confusion R41.0 and Dizziness R42 [place] [id number] [place] [address] 81107- 8145 Mar, Encounter for immunization Z23 ; Memory change R41.3 and Fatigue, unspecified type R53.83 [place] [id number] [place] [address] 60794- 2824 Mar, Bipolar II disorder F31.81 ; Post-traumatic stress disorder , chronic F43.12 and Memory change R41.3 [place] [id number] [place] [address] 70249- 4718 Jan, Bipolar II disorder F31.81 ; Post-traumatic stress disorder , chronic F43.12 and Memory change R41.3 [place] [id number] [place] [address] 18775- 1865 Jan, Post-traumatic stress disorder, chronic F43.12 ; Bipolar II disorder F31.81 ; Anxiety disorder, unspecified F41.9 and Memory change R41.3 [place] [id number] [place] [address] 70238- 5450 15 Feb, 2016 Bipolar II disorder F31.81 ; Post-traumatic stress disorder , chronic F43.12 and Memory change R41.3 [place] [id number] [place] [address] 98993- 4865 Dec, Bipolar II disorder F31.81 ; Post-traumatic stress disorder , chronic F43.12 and Memory change R41.3 [place] [id number] [place] [address] 62216- 4849 Dec, Memory loss R41.3 [facility] [address], [place] [address]- 7530 Dec, Bipolar II disorder F31.81 ; Post-traumatic stress disorder , chronic F43.12 and Memory change R41.3 [facility] [address], [place] [address]- 0250 Nov, Bipolar II disorder F31.81 and Post-traumatic stress disorder, chronic F43.12 [facility] [id number] [place] [address] 21298- 9549 Nov, Bipolar II disorder F31.81 ; Post-traumatic stress disorder , chronic F43.12 and Memory change R41.3 [facility] [id number] [place] [address] 81996- 8708 Oct, Post-traumatic stress disorder, chronic F43.12 and Bipolar disorder, unspecified F31.9 [facility] [id number] [place] [address] 79522- 0246 Oct, Bipolar II disorder F31.81 ; Post-traumatic stress disorder , chronic F43.12 and Memory change R41.3 [facility] [address] [place] [address] [id number] Oct, Dental examination Z01.20 [facility] [id number] [place] [address] 02747- 8244 September, Bipolar II disorder F31.81 ; Post-traumatic stress disorder , chronic F43.12 and Memory change R41.3 [facility] [address], [place] [address]- 5301 Aug, Bipolar II disorder F31.81 and Post-traumatic stress disorder, chronic F43.12 [facility] [address] [place] [address]- 7050 Aug, Bipolar II disorder F31.81 and Post-traumatic stress disorder, chronic F43.12 [facility] [id number] [place] [address] Jul, Bipolar II disorder F31.81 and Post-traumatic stress disorder, chronic F43.12 [place] [id number] [place] [id number] [place] [address] Jul, [facility] [id number] [place] [address] Jul, [facility] [address] [address] Jul, Post-traumatic stress disorder, chronic F43.12 and Bipolar disorder, unspecified F31.9 [place] [address] [place] [id number] [place] [address] Jun, Bipolar II disorder F31.81 and Post-traumatic stress disorder, chronic F43.12 [place] [address] [place] [id number] [place] [address] Jun, Post-traumatic stress disorder, chronic F43.12 and Bipolar disorder, unspecified F31.9 [place] [address] [place] [id number] [place] [address] Jun, [facility] [address] [place] [id number] [place] [address] Jun, Pharyngeal dysphagia R13.13 ; Hoarseness R49.0 and Cough R05 [place] [address] [place] [id number] [place] [address] Jun, Post-traumatic stress disorder, chronic F43.12 and Bipolar disorder, unspecified F31.9 [place] [address] [place] [id number] [place] [address] May, Cough R05 [place] [address] [place] [id number] [place] [address] May, Post-traumatic stress disorder, chronic F43.12 and Bipolar disorder, unspecified F31.9 [place] [address] [place] [id number] [place] [id number] May, Cough R05 [facility] [id number] [address] May, [facility] [id number] [id number] May, Dental examination Z01.20 [facility] [id number] [place] [address] 58706- 9776 15 May, 2015 Bipolar II disorder F31.81 and Post-traumatic stress disorder, chronic F43.12 [facility] [id number] [place] [address] 97613- 5591 May, [facility] [id number] [place] [address] 45750- 2037 14 May, 2015 Bipolar II disorder F31.81 and Anxiety disorder, unspecified F41.9 [facility] [id number] [place] [address] 62728- 7347 10 May, 2015 Memory change R41.3 and History of renal insufficiency syndrome Z87.448 [facility] [id number] [place] [address] 33615- 8565 03 May, 2015 Memory change R41.3 ; Dry mouth R68.2 and History of renal insufficiency syndrome Z87.448 [facility] [address], [place] [address] May, Bipolar II disorder F31.81 and Post-traumatic stress disorder, chronic F43.12 [facility] [id number] [place] [address] 29396- 2155 Mar, Bipolar disorder, unspecified F31.9 and Generalized anxiety disorder F41.1 [facility] [id number] [place] [address] 37678- 5699 Mar, Bipolar II disorder F31.81 [facility] [address], [place] [address] 8306 Mar, Encounter for immunization Z23 [facility] [id number] [address] Mar, [facility] [id number] [place] [address] 87333- 6567 Mar, Bipolar II disorder F31.81 [facility] [id number] [place] [address] 117946- 6244 Mar, [facility] [id number] [place] [address] 95669- 0023 Jan, Bipolar disorder, unspecified 296.80 and Anxiety disorder 300.00 [facility] [id number] [place] [address] 04893- 8169 Jan, [facility] [id number] [place] [address] 38783- 9734 Jan, Bipolar disorder, unspecified 296.80 and Anxiety disorder 300.00 [facility] [id number] [place] [address] 42266- 0302 Dec, Bipolar disorder, unspecified 296.80 and Anxiety disorder 300.00 [facility] [id number] [place] [address] 11841- 5338 Dec, [facility] [id number] [place] [address] 85070- 6489 Dec, Bipolar disorder, unspecified 296.80 and Anxiety disorder 300.00 [facility] [id number] [place] [address] 72258- 6415 Nov, Bipolar disorder, unspecified 296.80 and Anxiety disorder 300.00 [facility] [address], [place] [address] 26[address] Oct, Bipolar disorder, unspecified 296.80 and Anxiety disorder 300.00 [facility] [id number] [place] [address] 47698- 7483 Oct, Anxiety 300.00 and Bipolar disorder, unspecified 296.80 [facility] [id number] [place] [address] 69986- 7000 September, Bipolar disorder, unspecified 296.80 and Anxiety disorder 300.00 [facility] [address] [address] September, [facility] [id number] [place] [address] 7299 Aug, Cough 786.2 [facility] [id number] [place] [address], [place] [address]- 5880 Aug, [facility] [id number] [place] [address]- 7776 Aug, [facility] [id number] [place] [address], [place] [address] Jul, [facility] [id number] [place] [address]- 8251 Jul, [facility] [id number] [place] [address], [place] [address]- 0437 Jul, [facility] [address], [place] [address] 5691 Jul, [facility] [address], [place] [address]- 1573 Jul, [facility] [address], [place] [address] 4716 Jul, [facility] [id number], [place] [address]- 6006 Jun, [facility] [id number] 9936 Jun, [facility] [address], [place] [address] 3472 Jun, [facility] [id number] 8929 Jun, [facility] [address], [place] [address]- 6537 May, [facility] [place] [facility] [address] [id number] [place] 9807 May, [facility] [place] [facility] [address] [id number] [place] [address]- 7961 May, [facility] [place] [facility] [address] [facility] [id number] [place] [address]- 7712 May, [facility] [place] [facility] [address] [id number] [place] [address]- 5883 Apr, [facility] [place] [facility] [address] [id number] [place] 8360 Apr, [facility] [place] [facility] [address] [id number] [place] [address]- 5508 Mar, [facility] [place] [facility] [address] [id number] [place] [address]- 1928 Mar, [facility] [place] [facility] [address] [id number] [place] [address]- 9297 Mar, [facility] [place] [facility] [address] [id number] [place] [address]- 0920 Mar, [facility] [place] [facility] [address] [id number] [place] [address]- 4646 Mar, [facility] [place] [facility] [address] [id number], [place] [address]- 7325 Mar, [facility] [place] [facility] [address] [id number], [place] [address]- 9705 Jan, [facility] [place] [facility] [address] [id number] [place] [address]- 3025 Jan, [facility] [place] [facility] [address] [facility] [id number] [place] 1884 Jan, [facility] [place] [facility] [address] [id number] [place] 6114 Jan, [facility] [place] [facility] [address] [id number] [place] [address]- 7388 Jan, [facility] [place] [facility] [address] [id number] [place] [address]- 3155 Jan, [facility] [place] [facility] [address] [id number] [place] [address]- 5870 Dec, [facility] [place] [facility] [address] [id number] [place] [address]- 3898 Dec, [facility] [place] [facility] [address] [id number] [place] [address]- 2597 Dec, [facility] [place] [facility] [address] [id number] [place] [address]- 3112 Dec, [facility] [place] [facility] [address] [id number] [place] [address]- 8133 Dec, [facility] [place] [facility] [address] [id number] [place] [address]- 5464 Dec, [facility] [place] [facility] [address] [id number] [place] [address]- 3002 Nov, [facility] [place] [facility] [address] [id number] [place] [address]- 0899 Nov, [facility] [place] [facility] [address] [id number] [place] [address]- 1413 Nov, [facility] [place] [facility] [address] [id number] [place] [address]- 3906 Nov, [facility] [place] [facility] [address] [id number] [place] [address]- 3049 Nov, [facility] [place] [facility] [address] [id number] [place] [address]- 6399 Nov, [facility] [place] [facility] [address] [id number] [place] [address]- 7392 Nov, [facility] [place] [facility] [address] [id number] [place] [address]- 8098 Nov, [facility] [place] [facility] [address] [id number] [place] [address]- 2550 Nov, [facility] [place] [facility] [address] [id number] [place] [address]- 0217 Nov, [facility] [place] [facility] [address] [id number] [place] [address]- 4027 September, [facility] [place] [facility] [address] [id number] [place] [address]- 7820 September, [facility] [place] [facility] [address] [id number] [place] [address]- 6352 September, [facility] [place] [facility] [address] [id number] [place] [address]- 1326 September, [facility] [place] [facility] [address] [id number] [place] [address]- 8836 September, [facility] [place] [facility] [address] [id number] [place] [address]- 1375 September, [facility] [place] [facility] [address] [id number] [place] [address]- 1780 September, [facility] [place] [facility] [address] [id number] [place] [address]- 5320 September, [facility] [place] [facility] [address] [id number] [place] [address]- 7486 Aug, [facility] [place] [facility] [address] [id number] [place] [address]- 3124 Aug, [facility] [place] [facility] [address] [id number] [place] [address]- 6030 Aug, [facility] [place] [facility] [address] [id number] [place] [address]- 1282 Aug, [facility] [place] [facility] [address] [id number] [place] [address]- 9395 Jul, [facility] [place] [facility] [address] [id number] [place] [address]- 0470 Jul, [facility] [place] [facility] [address] [id number] [place] [address]- 1726 Jul, [facility] [place] [facility] [address] [id number] [place] [address]- 5326 Jul, [facility] [place] [facility] [address] [id number] [place] [address]- 2076 Jul, [facility] [place] [facility] [address] [id number] [place] [address]- 5622 Jul, [facility] [place] [facility] [address] [id number] [place] 5116 Jul, [facility] [place] [facility] [address] [id number] [place] [address]- 6035 Jul, [facility] [place] [facility] [address] [facility] [id number] [place] [address]- 7808 Jul, [facility] [place] [facility] [address] [id number] [place] [address]- 4137 Jul, [facility] [place] [facility] [address] [id number] [place] [address]- 5594 Jul, [facility] [place] [facility] [address] [facility] [id number] [place] [address]- 9351 Jun, [facility] [place] [facility] [address] [id number] [place] [address]- 7676 Jun, [facility] [place] [facility] [address] [id number] [place] [address]- 4686 Jun, [facility] [place] [facility] [address] [id number] [place] 6908 Jun, [facility] [place] [facility] [address] [facility] [id number] [place] [address]- 7800 May, [facility] [place] [facility] [address] [id number] [place] [address]- 3400 May, [facility] [place] [facility] [address] [id number] [place] [address]- 2884 Apr, [facility] [place] [facility] [address] [id number] [place] [address]- 4010 Apr, [facility] [place] [facility] [address] [id number], [place] [address]- 0416 Apr, [facility] [place] [facility] [address] [id number] [place] [address]- 3039 Apr, [facility] [place] [facility] [address] [id number] [place] [address]- 4940 Apr, [facility] [place] [facility] [address] [id number] [place] [address]- 7924 Apr, [facility] [place] [facility] [address] [id number] [place] [address]- 0635 Apr, [facility] [place] [facility] [address] [id number], [place] [address]- 9372 Apr, [facility] [place] [facility] [address] [id number], [place] [address]- 7661 Apr, [facility] [place] [facility] [address] [id number], [place] [address]- 2426 Apr, [facility] [place] [facility] [address] [id number], [place] [address]- 1887 Apr, [facility] [place] [facility] [address] [id number], [place] [address]- 3150 Apr, [facility] [place] [facility] [address] [id number], [place] [address]- 9653 Mar, [facility] [place] [facility] [address] [id number], [place] [address]- 3144 Mar, [facility] [place] [facility] [address] [facility] [id number], [place] [address]- 0689 Mar, [facility] [place] [facility] [address] [id number], [place] [address]- 2339 Dec, [facility] [id number] [address]- 5100 Dec, [facility] [id number], [place] [address]- 9559 Dec, [facility] [id number], [place] [address]- 1573 Oct, [facility] [id number], [place] [address]- 9889 May, [facility] [id number], [place] [address]- 3593 May, [facility] [id number], [place] [address]- 7656 May, [facility] [id number], [place] [address]- 5746 Dec, IMMUNIZATIONS No Known Immunizations SOCIAL HISTORY Never Assessed REASON FOR VISIT requesting referral PLAN OF CARE VITAL SIGNS MEDICATIONS Unknown [...] fatigue Medical History hyperlipidemia Surgical History Stimulator 2 Surgical History Disectomy 1991 Surgical History Breast Reduction 1998 Surgical History Left hand carpal surgery 1992 Surgical History Hysterectomy 05/02 Surgical History tubes and ovaries 04/16/10 Surgical History Bladder lift 04/16/10 Surgical History Gall Bladder Surgical History Tubalization Hospitalization History [facility] 12/2014 Hospitalization History Obstructive Airway Disease, Mood disorder, cough-[facility] 07/02/15 Hospitalization History Bronchitis- [facility] 06/2016
--- OUTSIDE RECORDS SUMMARY | 2018-02-03 09:23 | XMS REPORT ---
Author Author MACEYDREW [facility] Address [address] [place] [address] Care Team Providers Care Press Set Up Name Role Phone LUCILADREW AJ Unavailable PROBLEMS Type Condition ICD9-CM Code KNX27-CB Code Onset Dates Condition Status SNOMED Code Problem Slow transit constipation K59.01 Active 58797875 Problem Bipolar disorder, current episode mixed, mild F31.61 Active 911644106 Problem Chronic obstructive pulmonary disease, unspecified COPD type J44.9 Active 58424142 Problem Bipolar II disorder F31.81 Active 27137749 Problem Post-traumatic stress disorder, chronic F43.12 Active 39763777 Problem Bipolar affective disorder, currently manic, mild F31.11 Active 015753452 Problem Lumbago with sciatica, left side M54.42 Active 284968375 Problem Essential hypertension I10 Active 84853497 Problem Other chronic pain G89.29 Active 94369025 Problem Bipolar disorder, in partial remission, most recent episode mixed F31.77 Active 22511169 Problem Paresthesias R20.2 Active 79429735 Problem Irritable bowel syndrome with both constipation and diarrhea K58.2 Active 01622175 ALLERGIES No Information ENCOUNTERS Encounter Location Date Diagnosis [facility] [address] [address] Jan, [facility] [id number] [place] [address] 85282- 2506 Jan, [facility] [id number] [place] [address] 95245- 2142 Jan, [facility] [address] [place] [address] 20589- 3678 Dec, [facility] [id number] [place] [address] 37363- 6637 Nov, Bipolar II disorder F31.81 and Post-traumatic stress disorder, chronic F43.12 [facility] [id number] [place] [address] 20824- 5876 Nov, Essential hypertension I10 ; Lymph node enlargement R59.9 ; Paresthesias R20.2 ; Irritable bowel syndrome with both constipation and diarrhea K58.2 ; Lumbago with sciatica, left side M54.42 and Other chronic pain G89.29 [facility] [id number] [place] [address] 81268 2547 Nov, Bipolar disorder, in partial remission, most recent episode mixed F31.77 [facility] [id number] [place] [address] 63005- 5906 Oct, Bipolar disorder, in partial remission, most recent episode mixed F31.77 [facility] [id number] [place] [address] 75331 -7781 Oct, Scabies B86 [facility] [id number] [place] [address] 28079- 7708 Oct, Bipolar disorder, in partial remission, most recent episode mixed F31.77 [facility] [id number] [place] [address] 76222- 0524 Oct, [facility] [id number] [place] [address] 33037- 9622 Oct, Bipolar II disorder F31.81 and Post-traumatic stress disorder, chronic F43.12 [facility] [id number] [place] [address] 91082 -7066 Oct, Scabies B86 [facility] [id number] [place] [address] 09675- 7889 Oct, [facility] [id number] [place] [address] 16357- 1216 September, Bipolar II disorder F31.81 and Post-traumatic stress disorder, chronic F43.12 [facility] [id number] [place] [address] 92641- 3190 September, Bipolar disorder, in partial remission, most recent episode mixed F31.77 [place] [address] 72468- 3821 September, COPD exacerbation J44.1 and Elevated blood pressure reading R03.0 [place] [address] 95475- 0063 September, [place] [address] 39945- 0088 September, Pain in left ankle and joints of left foot M25.572 ; Dermatitis L30.9 and Other chronic pain G89.29 [place] [id number] [place] [address] 04360- 8844 Aug, Right elbow pain M25.521 and Elevated blood pressure reading R03.0 [place] [address] 36852- 5718 Aug, Bipolar disorder, current episode mixed, mild F31.61 and BMI 40.0-44.9, adult Z68.41 [place] [address] 58826- 7020 Aug, [place] [id number] [place] [address] 43178- 0801 Aug, Bipolar II disorder F31.81 and Post-traumatic stress disorder, chronic F43.12 [place] [id number] [place] [address] 55075- 5156 Jul, Elevated blood pressure reading R03.0 [place] [address] 12269- 5297 Jul, Bipolar II disorder F31.81 and Post-traumatic stress disorder, chronic F43.12 [place] [id number] [place] [address] 65428- 4786 Jul, Bipolar disorder, current episode mixed, mild F31.61 [facility] [id number] [place] [address] 91620 -4766 12 Jul, 2017 Right foot pain M79.671 ; Allergic contact dermatitis, unspecified trigger L23.9 ; Contusion of right foot, initial encounter S90.31XA and BMI 40.0-44.9, adult Z68.41 [facility] [address] 61678 -0179 02 Jul, 2017 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 [place] [address] 62346- 1480 Jul, [place] [address] 42362- 6452 15 Jul, 2017 Bipolar disorder, current episode mixed, mild F31.61 [place] [address] 66012- 4600 15 Jul, 2017 Bipolar II disorder F31.81 ; Post-traumatic stress disorder , chronic F43.12 and Memory change R41.3 [place] [id number] [place] [address] 53257- 3664 14 Jul, 2017 Elevated blood pressure reading R03.0 ; Chronic obstructive pulmonary disease, unspecified COPD type J44.9 ; Long-term use of high-risk medication Z79.899 and Cognitive decline R41.89 [place] [id number] [place] [address] 89971- 9703 06 Jul, 2017 Elevated blood pressure reading R03.0 [place] [id number] [place] [address] 11221- 0964 05 Jul, 2017 [place] [address] 45850- 8388 01 Jul, 2017 Bipolar II disorder F31.81 ; Post-traumatic stress disorder , chronic F43.12 and Memory change R41.3 [place] [address] 74256- 7539 Jun, [facility] [address] [place] [address] 49229- 9452 Jun, Bipolar II disorder F31.81 ; Post-traumatic stress disorder , chronic F43.12 and Memory change R41.3 [place] [address] [place] [address] 00318- 6792 Jun, Localized swelling, mass or lump of neck R22.1 ; Slow transit constipation K59.01 and Elevated blood pressure reading R03.0 [place] [id number] [place] [address] 92779- 8006 Jun, [place] [id number] [place] [address] 76561- 9663 Jun, Bipolar affective disorder, currently manic, mild F31.11 [facility] [place] [id number] [place] [address] 11987 -9176 15 May, 2017 [facility] [place] [id number] [place] [address] 30416 -4532 May, [place] [id number] [place] [address] 70765- 7655 May, Bipolar II disorder F31.81 ; Post-traumatic stress disorder , chronic F43.12 and Memory change R41.3 [place] [id number] [place] [address] 76541- 7717 May, [place] [id number] [place] [address] 46124- 0719 08 May, 2017 [place] [address] [place] [address] 47986- 2925 05 May, 2017 Bipolar affective disorder, currently manic, mild F31.11 [place] [id number] [place] [address] 05275- 6356 May, [facility] [id number] [place] [address] 18786 -9810 May, Localized swelling, mass or lump of neck R22.1 and Localized swelling, mass and lump, head R22.0 [facility] [id number] [place] [address] 00701- 7912 Apr, [facility] [id number] [place] [address] 99248- 2984 Apr, Bipolar affective disorder, currently manic, mild F31.11 [facility] [id number] [place] [address] 79605- 2960 Apr, Bipolar II disorder F31.81 [facility] [id number] [place] [address] 95985- 9346 Apr, [facility] [id number] [place] [address] 73995- 2001 Apr, Bipolar affective disorder, currently manic, mild F31.11 [facility] [id number] [place] [address] 52392- 9162 Apr, Actinic keratosis L57.0 [facility] [id number] [place] [address] 14295- 5408 Apr, Bipolar affective disorder, currently manic, mild F31.11 [facility] [address] [place] [address] 00840- 1827 Apr, [facility] [id number] [place] [address] 39728 -1171 Mar, Allergic contact dermatitis, unspecified trigger L23.9 and Right leg pain M79.604 [facility] [id number] [place] [address] 57256- 4288 Mar, [facility] [id number] [place] [address] 28042- 8739 Mar, Bipolar II disorder F31.81 ; Post-traumatic stress disorder , chronic F43.12 and Memory change R41.3 [facility] [id number] [place] [address] 64475- 5561 Mar, Actinic keratosis L57.0 [facility] [address] [place] [address] 95430- 4706 Jan, Bipolar II disorder F31.81 ; Post-traumatic stress disorder , chronic F43.12 and Memory change R41.3 [facility] [address] [address]- 3098 Jan, Bipolar affective disorder, currently manic, mild F31.11 [facility] [address] [place] [address] 40536- 1823 13 Jan, 2017 Bipolar affective disorder, currently manic, mild F31.11 [facility] [address] [place] [address] 10949- 9501 Jan, Bipolar II disorder F31.81 ; Post-traumatic stress disorder , chronic F43.12 and Memory change R41.3 [facility] [address] [place] [address] 43775- 0196 Dec, Bipolar II disorder F31.81 ; Post-traumatic stress disorder , chronic F43.12 and Memory change R41.3 [facility] [address] [place] [address] 29620- 5776 Dec, Bipolar affective disorder, currently manic, mild F31.11 [facility] [address] [address]- 4543 Dec, Bipolar affective disorder, currently manic, mild F31.11 [facility] [address], [place] [address]- 4434 Dec, Post-traumatic stress disorder, chronic F43.12 [facility] [address] [place] [address] 07369- 0793 Dec, Bipolar II disorder F31.81 ; Post-traumatic stress disorder , chronic F43.12 and Memory change R41.3 [facility] [address] [place] [address] 37745- 9811 Dec, Post-traumatic stress disorder, chronic F43.12 [facility] [address], [place] [address]- 4158 Nov, [facility] [address] [place] [address] 18847- 4609 Nov, Bipolar II disorder F31.81 ; Post-traumatic stress disorder , chronic F43.12 and Memory change R41.3 [facility] [address] [address]- 0991 Nov, [facility] [address] [place] [address] 433844- 2944 Nov, Post-traumatic stress disorder, chronic F43.12 and Bipolar II disorder F31.81 [facility] [address] [place] [address] 61410- 5839 Nov, Actinic keratosis L57.0 [facility] [address] [place] [address] 44203- 5636 Oct, Bipolar II disorder F31.81 ; Post-traumatic stress disorder , chronic F43.12 and Memory change R41.3 [facility] [address] [place] [address] 37494- 3751 Oct, Post-traumatic stress disorder, chronic F43.12 ; Bipolar II disorder F31.81 and Memory change R41.3 [facility] [address] [address]- 5524 Oct, Bipolar II disorder F31.81 ; Post-traumatic stress disorder , chronic F43.12 and Memory change R41.3 [facility] [address], [place] [address]- 7982 Oct, Actinic keratosis L57.0 [facility] [address], [place] [address]- 8779 September, Bipolar II disorder F31.81 ; Post-traumatic stress disorder , chronic F43.12 and Memory change R41.3 [place] [address] [address]- 2258 September, Bipolar II disorder F31.81 ; Post-traumatic stress disorder , chronic F43.12 and Memory change R41.3 [place] [address], [place] [address]- 4699 September, Post-traumatic stress disorder, chronic F43.12 ; Bipolar II disorder F31.81 and Memory change R41.3 [place] [address], [place] [address]- 3604 Jul, Bipolar II disorder F31.81 ; Post-traumatic stress disorder , chronic F43.12 and Memory change R41.3 [place] [address], [place] [address]- 4168 Jul, Bipolar II disorder F31.81 ; Post-traumatic stress disorder , chronic F43.12 and Memory change R41.3 [place] [address] [place] [address] 11988- 7361 Jul, Bipolar II disorder F31.81 ; Post-traumatic stress disorder , chronic F43.12 and Memory change R41.3 [place] [address] [place] [address] 01935- 3932 Jul, Post-traumatic stress disorder, chronic F43.12 ; Bipolar II disorder F31.81 and Memory change R41.3 [place] [address] [place] [address] 16491- 8733 Jul, Tear of medial meniscus of right knee, unspecified tear type , unspecified whether old or current tear, initial encounter S83.241A [place] [id number] [place] [address] 03384- 6218 Jul, Bipolar II disorder F31.81 ; Post-traumatic stress disorder , chronic F43.12 and Memory change R41.3 [place] [id number] [place] [address] 79206- 1757 07 Jul, 2016 Shortness of breath R06.02 ; Mixed hyperlipidemia E78.2 and Chronic fatigue R53.82 [place] [id number] [place] [address] 29322- 7059 07 Jul, 2016 Bipolar II disorder F31.81 ; Post-traumatic stress disorder , chronic F43.12 and Memory change R41.3 [place] [id number] [place] [address] 07594- 6779 Jul, [place] [id number] [place] [address] 91533- 0298 Jun, Bipolar II disorder F31.81 ; Post-traumatic stress disorder , chronic F43.12 and Memory change R41.3 [place] [id number] [place] [address] 68875- 8282 Jun, Post-traumatic stress disorder, chronic F43.12 ; Bipolar II disorder F31.81 and Memory change R41.3 [place] [id number] [place] [address] 83055- 7270 Jun, Right anterior knee pain M25.561 ; Shortness of breath R06.02 and Bronchiolitis J21.9 [place] [id number] [place] [address] 98020- 8218 Jun, [place] [id number] [place] [address] 92593- 5480 Jun, Bipolar II disorder F31.81 ; Post-traumatic stress disorder , chronic F43.12 and Memory change R41.3 [place] [id number] [place] [address] 64898- 2596 Jun, [place] [id number] [place] [address] 74867- 0866 Jun, Bipolar II disorder F31.81 ; Post-traumatic stress disorder , chronic F43.12 and Memory change R41.3 [place] [id number] [place] [address] 95485- 4418 May, [facility] [address], [place] [address] 2546 May, [facility] [id number] [place] [address] 60232 2546 May, [facility] [address] [place] [address] 26253- 4126 May, Right anterior knee pain M25.561 ; Cough R05 ; Skin lesion of right arm L98.9 and Lesion of skin of face L98.9 [facility] [id number] [address]- 1556 May, [facility] [id number] [place] [address] 56384- 5246 May, Post-traumatic stress disorder, chronic F43.12 ; Memory change R41.3 and Bipolar I disorder, most recent episode manic F31.10 [facility] [id number] [place] [address] 67498- 7586 May, [facility] [address] [place] [address] 66335- 8677 May, Right anterior knee pain M25.561 [facility] [id number] [address] 2546 May, [facility] [address] [place] [address] 49438- 5494 Apr, Bipolar II disorder F31.81 ; Post-traumatic stress disorder , chronic F43.12 and Memory change R41.3 [facility] [id number] [address]- 0706 Apr, Bipolar II disorder F31.81 ; Post-traumatic stress disorder , chronic F43.12 and Memory change R41.3 [facility] [id number] [address]- 2716 Apr, Post-traumatic stress disorder, chronic F43.12 ; Bipolar II disorder F31.81 and Memory change R41.3 [place] [address] [place] [address] 10819- 5855 Mar, Bipolar II disorder F31.81 ; Post-traumatic stress disorder , chronic F43.12 and Memory change R41.3 [place] [id number] [place] [address] 38570- 9176 Mar, Memory change R41.3 ; Confusion R41.0 and Dizziness R42 [place] [id number] [place] [address] 40978- 5748 Mar, Memory change R41.3 ; Encounter for immunization Z23 and Fatigue, unspecified type R53.83 [place] [id number] [place] [address] 73347- 1705 Mar, Bipolar II disorder F31.81 ; Post-traumatic stress disorder , chronic F43.12 and Memory change R41.3 [place] [id number] [place] [address] 56120- 7751 Jan, Bipolar II disorder F31.81 ; Post-traumatic stress disorder , chronic F43.12 and Memory change R41.3 [place] [id number] [place] [address] 75982- 6056 Jan, Post-traumatic stress disorder, chronic F43.12 ; Bipolar II disorder F31.81 ; Anxiety disorder, unspecified F41.9 and Memory change R41.3 [place] [address] [place] [address] 22105- 9080 15 Feb, 2016 Bipolar II disorder F31.81 ; Post-traumatic stress disorder , chronic F43.12 and Memory change R41.3 [place] [id number] [place] [address] 85066- 3566 Dec, Bipolar II disorder F31.81 ; Post-traumatic stress disorder , chronic F43.12 and Memory change R41.3 [place] [id number] [place] [address] 48867- 4427 16 Jan, 2016 Memory loss R41.3 [facility] [address] [address]- 8164 Dec, Bipolar II disorder F31.81 ; Post-traumatic stress disorder , chronic F43.12 and Memory change R41.3 [facility] [address] [place] [address] 03223- 3490 Nov, Bipolar II disorder F31.81 and Post-traumatic stress disorder, chronic F43.12 [facility] [address] [place] [address] 46037- 8293 Nov, Bipolar II disorder F31.81 ; Post-traumatic stress disorder , chronic F43.12 and Memory change R41.3 [facility] [id number] [place] [address] 32280- 6914 Oct, Post-traumatic stress disorder, chronic F43.12 and Bipolar disorder, unspecified F31.9 [facility] [address] [place] [address] 18881- 3801 Oct, Bipolar II disorder F31.81 ; Post-traumatic stress disorder , chronic F43.12 and Memory change R41.3 [facility] [address] [place] [address] [id number] Oct, Dental examination Z01.20 [facility] [address] [place] [address] 55836- 6627 September, Bipolar II disorder F31.81 ; Post-traumatic stress disorder , chronic F43.12 and Memory change R41.3 [facility] [address] [place] [address] 82629- 7467 Aug, Bipolar II disorder F31.81 and Post-traumatic stress disorder, chronic F43.12 [facility] [address]- 0983 Aug, Bipolar II disorder F31.81 and Post-traumatic stress disorder, chronic F43.12 [facility] [address] [place] [address] 50094- 8562 Jul, Bipolar II disorder F31.81 and Post-traumatic stress disorder, chronic F43.12 [facility] [id number] [place] [address]- 7173 Jul, [facility] [id number] [place] [address] 536489- 1319 Jul, [facility] [address]05867- 0198 Jul, Post-traumatic stress disorder, chronic F43.12 and Bipolar disorder, unspecified F31.9 [place] [id number] [place] [address]- 9628 Jun, Bipolar II disorder F31.81 and Post-traumatic stress disorder, chronic F43.12 [place] [id number] [place] [address]- 7305 Jun, Post-traumatic stress disorder, chronic F43.12 and Bipolar disorder, unspecified F31.9 [place] [id number] [place] [address] 97999- 7755 Jun, [place] [address] [place] 905862- 7288 Jun, Pharyngeal dysphagia R13.13 ; Hoarseness R49.0 and Cough R05 [place] [address] [place] [id number] [place] [address] 61849- 3897 Jun, Post-traumatic stress disorder, chronic F43.12 and Bipolar disorder, unspecified F31.9 [place] [address] [place] [id number] [place] [address] 53194- 1707 May, Cough R05 [place] [address] [id number] [place], [place] [address]455[address] May, Post-traumatic stress disorder, chronic F43.12 and Bipolar disorder, unspecified F31.9 [place] [address] [place] [id number] [place] [address] 338[address]- 7387 May, Cough R05 [facility] [id number] [address] May, [facility] [id number] [id number] May, Dental examination Z01.20 [facility] [id number] [place] [address] [id number]- 8042 15 May, 2015 Bipolar II disorder F31.81 and Post-traumatic stress disorder, chronic F43.12 [facility] [id number] [place] [address]- 3677 May, [facility] [id number] [place] [address] 66812- 0055 14 May, 2015 Bipolar II disorder F31.81 and Anxiety disorder, unspecified F41.9 [facility] [id number] [place] [address] 10098- 3501 May, Memory change R41.3 and History of renal insufficiency syndrome Z87.448 [facility] [id number] [place] [address] 63157- 3046 03 May, 2015 Memory change R41.3 ; Dry mouth R68.2 and History of renal insufficiency syndrome Z87.448 [facility] [address] [address] May, Bipolar II disorder F31.81 and Post-traumatic stress disorder, chronic F43.12 [facility] [address] [address] 1640 Mar, Bipolar disorder, unspecified F31.9 and Generalized anxiety disorder F41.1 [facility] [id number] [place] [address] 88436- 8177 Mar, Bipolar II disorder F31.81 [facility] [id number] [place] [address] 06965- 0042 Mar, Encounter for immunization Z23 [facility] [address], [place] [address] 4358 Mar, [facility] [id number] [place] [address] 87362- 7292 Mar, Bipolar II disorder F31.81 [facility] [id number] [place] [address] 357516- 4928 Mar, [facility] [id number] [place] [address] 36529- 7939 Jan, Bipolar disorder, unspecified 296.80 and Anxiety disorder 300.00 [facility] [id number] [place] [address] 57708- 9463 Jan, [facility] [id number] [place] [address] 17680- 5113 Jan, Bipolar disorder, unspecified 296.80 and Anxiety disorder 300.00 [facility] [id number] [place] [address] 82250- 7833 Dec, Bipolar disorder, unspecified 296.80 and Anxiety disorder 300.00 [facility] [id number] [place] [address] 55146- 9404 Dec, [facility] [id number] [place] [address] 55387- 1151 Dec, Bipolar disorder, unspecified 296.80 and Anxiety disorder 300.00 [facility] [id number] [place] [address] 72022- 0336 Nov, Bipolar disorder, unspecified 296.80 and Anxiety disorder 300.00 [facility] [id number] [place] [address] 33607- 1536 Oct, Bipolar disorder, unspecified 296.80 and Anxiety disorder 300.00 [facility] [id number] [place] [address] 98691- 5399 Oct, Anxiety 300.00 and Bipolar disorder, unspecified 296.80 [facility] [id number] [place] [address] 97909- 9335 September, Bipolar disorder, unspecified 296.80 and Anxiety disorder 300.00 [facility] [address] [place] [address] 22255- 4461 September, [facility] [id number] [place] [address] 53182- 9076 Aug, Cough 786.2 [facility] [id number] [place] [address] 66213- 6096 Aug, [facility] [id number] [place] [address] 42766- 7808 Aug, [facility] [id number] [place] [address], [place] [address]- 5572 Jul, [facility] [id number] [place] [address] 626023- 5105 Jul, [facility] [id number] [place] [address] 21241- 2813 Jul, [facility] [address] [place] [address] 04362- 9095 Jul, [facility] [address] [place] [address] 72724- 7131 Jul, [facility] [address], [place] [address]- 7647 Jul, [facility] [address], [place] [address]- 9522 Jun, [facility] [address], [place] [address]- 3403 Jun, [facility] [id number] [place] [address] 85154- 1548 Jun, [facility] [address] 7373 Jun, [facility] [address] [place] [address] 45438- 9811 May, [facility] [place] [facility] [address] [id number] [place] [address]- 5570 May, [facility] [place] [facility] [address] [id number] [place] [address]- 4131 May, [facility] [place] [facility] [address] [id number] [place] 0747 May, [facility] [place] [facility] [address] [id number] [place] 2657 Apr, [facility] [place] [facility] [address] [id number] [place] [address]- 3569 Apr, [facility] [place] [facility] [address] [id number] [place] [address]- 4650 Mar, [facility] [place] [facility] [address] [id number] [place] [address]- 8095 Mar, [facility] [place] [facility] [address] [id number] [place] [address]- 0698 Mar, [facility] [place] [facility] [address] [id number] [place] [address]- 1873 Mar, [facility] [place] [facility] [address] [id number] [place] [address]- 9226 Mar, [facility] [place] [facility] [address] [id number] [place] [address]- 0547 Mar, [facility] [place] [facility] [address] [id number] [address]- 8597 Jan, [facility] [place] [facility] [address] [id number] [place] [address]- 2074 Jan, [facility] [place] [facility] [address] [id number] [place] [address]- 2004 Jan, [facility] [place] [facility] [address] [id number] [place] [address]- 8230 Jan, [facility] [place] [facility] [address] [id number] [place] [address]- 2989 Jan, [facility] [place] [facility] [address] [id number] [place] [address]- 5368 Jan, [facility] [place] [facility] [address] [id number] [place] [address]- 3572 Dec, [facility] [place] [facility] [address] [id number] [place] [address]- 6350 Dec, [facility] [place] [facility] [address] [id number] [place] [address]- 5435 Dec, [facility] [place] [facility] [address] [id number] [place] [address]- 1586 Dec, [facility] [place] [facility] [address] [id number] [place] [address]- 0584 Dec, [facility] [place] [facility] [address] [id number] [place] [address]- 4387 Dec, [facility] [place] [facility] [address] [id number] [place] [address]- 5918 Nov, [facility] [place] [facility] [address] [id number] [place] [address]- 6086 Nov, [facility] [place] [facility] [address] [id number] [place] [address]- 1213 Nov, [facility] [place] [facility] [address] [id number] [place] [address]- 4135 Nov, [facility] [place] [facility] [address] [id number] [place] [address]- 6084 Nov, [facility] [place] [facility] [address] [id number] [place] [address]- 4567 Nov, [facility] [place] [facility] [address] [id number] [place] [address]- 7014 Nov, [facility] [place] [facility] [address] [id number] [place] [address]- 7894 Nov, [facility] [place] [facility] [address] [id number] [place] [address]- 6764 Nov, [facility] [place] [facility] [address] [id number] [place] [address]- 0445 Nov, [facility] [place] [facility] [address] [id number] [place] [address]- 4362 September, [facility] [place] [facility] [address] [id number] [place] [address]- 0699 September, [facility] [place] [facility] [address] [id number] [place] [address]- 7582 September, [facility] [place] [facility] [address] [id number] [place] [address]- 2721 September, [facility] [place] [facility] [address] [id number] [place] [address]- 0515 September, [facility] [place] [facility] [address] [id number] [place] [address]- 6541 September, [facility] [place] [facility] [address] [id number] [place] [address]- 8101 September, [facility] [place] [facility] [address] [id number] [place] [address]- 7264 September, [facility] [place] [facility] [address] [id number] [place] [address]- 7241 Aug, [facility] [place] [facility] [address] [id number] [place] [address]- 8788 Aug, [facility] [place] [facility] [address] [id number] [place] [address]- 7147 Aug, [facility] [place] [facility] [address] [id number] [place] [address]- 1609 Aug, [facility] [place] [facility] [address] [id number] [place] [address]- 6266 Jul, [facility] [place] [facility] [address] [id number], [place] [address]- 3938 Jul, [facility] [place] [facility] [address] [id number] [place] [address]- 4646 Jul, [facility] [place] [facility] [address] [id number] [place] [address]- 2156 Jul, [facility] [place] [facility] [address] [id number] [place] [address]- 5386 Jul, [facility] [place] [facility] [address] [id number] [place] [address]- 6596 Jul, [facility] [place] [facility] [address] [id number] [place] 8756 Jul, [facility] [place] [facility] [address] [id number] [place] [address]- 8966 Jul, [facility] [place] [facility] [address] [facility] [id number] [place] [address]- 0701 Jul, [facility] [place] [facility] [address] [facility] [id number] [place] [address]- 8536 Jul, [facility] [place] [facility] [address] [facility] [id number] [place] [address]- 7686 Jul, [facility] [place] [facility] [address] [facility] [id number] [place] [address]- 3790 Jun, [facility] [place] [facility] [address] [facility] [id number] [place] [address]- 7620 Jun, [facility] [place] [facility] [address] [id number] [place] [address]- 8750 Jun, [facility] [place] [facility] [address] [id number] [place] 0448 Jun, [facility] [place] [facility] [address] [facility] [id number] [place] 4390 May, [facility] [place] [facility] [address] [facility] [id number] [place] [address]- 3566 May, [facility] [place] [facility] [address] [id number] [place] [address]- 6270 Apr, [facility] [place] [facility] [address] [id number] [place] [address]- 6105 Apr, [facility] [place] [facility] [address] [id number] [place] [address]- 3242 Apr, [facility] [place] [facility] [address] [id number] [place] [address]- 8614 Apr, [facility] [place] [facility] [address] [id number] [place] [address]- 8891 Apr, [facility] [place] [facility] [address] [id number] [place] [address]- 8623 Apr, [facility] [place] [facility] [address] [id number] [place] [address]- 6161 Apr, [facility] [place] [facility] [address] [id number], [place] [address]- 6615 Apr, [facility] [place] [facility] [address] [id number] [place] [address]- 8717 Apr, [facility] [place] [facility] [address] [id number] [address]- 9016 Apr, [facility] [place] [facility] [address] [id number], [place] [address]- 7916 Apr, [facility] [place] [facility] [address] [id number], [place] [address]- 6907 Apr, [facility] [place] [facility] [address] [id number] [place] [address]- 6523 Mar, [facility] [place] [facility] [address] [id number], [place] [address]- 8239 Mar, [facility] [place] [facility] [address] [id number], [place] [address]- 6514 Mar, [facility] [place] [facility] [address] [id number], [place] [address]- 4827 Dec, [facility] [address] [address]- 3730 Dec, [facility] [address], [place] [address]- 0780 Dec, [facility] [address] [address]- 7016 Oct, [facility] [address] [address]- 6709 May, [facility] [address] [place] [address]- 7554 May, [facility] [address] [address]- 2183 May, [facility] [address] [place] [address]- 3030 Dec, IMMUNIZATIONS No Known Immunizations SOCIAL HISTORY Never Assessed REASON FOR VISIT f/Martine ACEVEDO PLAN OF CARE Activity Details Follow Up 4 Weeks, prn Reason: VITAL SIGNS Height 66 in 2017-10-28 Weight 228.4 lbs 2017-10-28 Heart Rate 96 bpm 2017-10-28 Respiratory Rate 20 2017-10-28 BMI 36.86 kg/m2 2017-10-28 Blood pressure systolic 142 mmHg 2017-10-28 Blood pressure diastolic 90 mmHg 2017-10-28 MEDICATIONS Medication Instructions Dosage Frequency Start Date End Date Duration Status Advair Diskus 100-50 MCG/DOSE Inhalation Twice a day 1 puff 12h Active Fish Oil 1000 MG Orally Once a day 2 capsule 24h Active Loxapine Succinate 5 MG Orally at night 1 capsule Oct, Active Calcium 600 MG Orally Once a day 1 tablet with meals 24h 30 days Active Albuterol Sulfate 108 (90 Base) MCG/ACT Inhalation every 4-6 hrs 1 puff as needed May, Active Trazodone HCl 100 MG Orally at night as needed for sleep 1-2 tab Jun, 90 days Active Hydrochlorothiazide 25 MG Orally Once a day 1 tablet in the morning 24h September, 90 days Active Abilify 30 MG Orally Once a day 1 tablet 24h 17 Nov, 2016 Active Diclofenac Sodium 75 MG Orally Twice a day 1 tablet with food or milk 12h September, Oct, 30 day(s) Active Melatonin 5 MG 1 tablet at bedtime as needed with food Active Magnesium Active Triamcinolone Acetonide 0.1 % Externally Twice a day 1 application to affected area 12h Jul, 7 days Active Aspirin 81 MG Orally Once a day 1 tablet 24h Active Trihexyphenidyl HCl 2 MG Orally daily 0.5 tablet three times a day for one week and if tolerate can increase to full tablet three times a day 24h September 30 day(s) Active Linzess 145 MCG Orally Once a day 1 capsule 24h Jun, Mar, 90 days Active Multivitamin Gummies Adult Active Cymbalta 60 MG Orally Once a day 1 Capsule 24h Active Vitamin D 2000 UNIT Orally Once a day 1 tablet 24h Active Premarin 0.9 MG Orally Once a day 1 tablet 24h Active Omeprazole 40 MG Orally Once a day 1 capsule 24h Active RESULTS No Results PROCEDURES Procedure Date Ordered Result Body Site [facility] VISIT ESTABLISHED PATIENT October 28, 2017 INSTRUCTIONS MEDICATIONS ADMINISTERED No Known Medications [...] History Tubalization Hospitalization History [facility] 12/2014 Hospitalization History Obstructive Airway Disease, Mood disorder, cough-[facility] 07/02/15 Hospitalization History Bronchitis- [facility] 06/2016
--- OUTSIDE RECORDS SUMMARY | 2018-02-03 09:24 | XMS REPORT ---
Author Author SHANTAL TOWNSEND Organization [facility] Address [address] [place] [address] Care Team Providers Care Brusher Name Role Phone SHANTAL TOWNSEND Unavailable PROBLEMS Type Condition ICD9-CM Code SSK30-PW Code Onset Dates Condition Status SNOMED Code Problem Slow transit constipation K59.01 Active 93224503 Problem Bipolar disorder, current episode mixed, mild F31.61 Active 559138597 Problem Chronic obstructive pulmonary disease, unspecified COPD type J44.9 Active 36686343 Problem Bipolar II disorder F31.81 Active 24330221 Problem Post-traumatic stress disorder, chronic F43.12 Active 70222304 Problem Bipolar affective disorder, currently manic, mild F31.11 Active 373497544 Problem Lumbago with sciatica, left side M54.42 Active 067523069 Problem Essential hypertension I10 Active 15659430 Problem Other chronic pain G89.29 Active 03304668 Problem Bipolar disorder, in partial remission, most recent episode mixed F31.77 Active 96871330 Problem Paresthesias R20.2 Active 34007926 Problem Irritable bowel syndrome with both constipation and diarrhea K58.2 Active 89820416 ALLERGIES No Information ENCOUNTERS Encounter Location Date Diagnosis [facility] [id number] [place] [address] 65064- 0387 Jan, [facility] [id number] [place] [address] 16569- 5204 Jan, [facility] [id number] [place] [address] 73504- 6383 Jan, [facility] [id number] [place] [address] 81288- 3068 Dec, [facility] [id number] [place] [address] 28219- 8195 Nov, Bipolar II disorder F31.81 and Post-traumatic stress disorder, chronic F43.12 [facility] [id number] [place] [address] 96813- 0160 Nov, Essential hypertension I10 ; Lymph node enlargement R59.9 ; Paresthesias R20.2 ; Irritable bowel syndrome with both constipation and diarrhea K58.2 ; Lumbago with sciatica, left side M54.42 and Other chronic pain G89.29 [facility] [id number] [place] [address] 15228- 2539 Nov, Bipolar disorder, in partial remission, most recent episode mixed F31.77 [facility] [id number] [place] [address] 84828- 3653 Oct, Bipolar disorder, in partial remission, most recent episode mixed F31.77 [facility] [id number] [place] [address] 83389 -7622 Oct, Scabies B86 [facility] [id number] [place] [address] 13269- 7427 Oct, Bipolar disorder, in partial remission, most recent episode mixed F31.77 [facility] [id number] [place] [address] 01746- 9683 Oct, [facility] [id number] [place] [address] 83983- 9845 Oct, Bipolar II disorder F31.81 and Post-traumatic stress disorder, chronic F43.12 [facility] [address] [place] [address] 62175 -0300 Oct, Scabies B86 [facility] [id number] [place] [address] 31810- 6368 Oct, [facility] [address] [place] [address] 49155- 9805 September, Bipolar II disorder F31.81 and Post-traumatic stress disorder, chronic F43.12 [facility] [id number] [place] [address] 22680- 9339 September, Bipolar disorder, in partial remission, most recent episode mixed F31.77 [facility] [address] 00402- 0314 September, COPD exacerbation J44.1 and Elevated blood pressure reading R03.0 [facility] [address] 79224- 9156 September, [facility] [address] 10533- 0528 September, Pain in left ankle and joints of left foot M25.572 ; Dermatitis L30.9 and Other chronic pain G89.29 [facility] [address] 49551- 9898 Aug, Right elbow pain M25.521 and Elevated blood pressure reading R03.0 [facility] [address] 77053- 9829 Aug, Bipolar disorder, current episode mixed, mild F31.61 and BMI 40.0-44.9, adult Z68.41 [facility] [address] 60660- 2652 Aug, [facility] [id number] [place] [address] 01566- 1525 Aug, Bipolar II disorder F31.81 and Post-traumatic stress disorder, chronic F43.12 [facility] [id number] [place] [address] 55937- 8859 Jul, Elevated blood pressure reading R03.0 [facility] [address] 80772- 6504 Jul, Bipolar II disorder F31.81 and Post-traumatic stress disorder, chronic F43.12 [facility] [id number] [place] [address] 16667- 4596 Jul, Bipolar disorder, current episode mixed, mild F31.61 [facility] [id number] [place] [address] 75055 -7907 12 Jul, 2017 Right foot pain M79.671 ; Allergic contact dermatitis, unspecified trigger L23.9 ; Contusion of right foot, initial encounter S90.31XA and BMI 40.0-44.9, adult Z68.41 [facility] [address] 51200 -4449 02 Jul, 2017 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 [facility] [address] 69241- 0690 Jul, [address] 01321- 3117 15 Jul, 2017 Bipolar disorder, current episode mixed, mild F31.61 [facility] [address] 52790- 7526 15 Jul, 2017 Bipolar II disorder F31.81 ; Post-traumatic stress disorder , chronic F43.12 and Memory change R41.3 [facility] [address] 43380- 7354 14 Jul, 2017 Elevated blood pressure reading R03.0 ; Chronic obstructive pulmonary disease, unspecified COPD type J44.9 ; Long-term use of high-risk medication Z79.899 and Cognitive decline R41.89 [facility] [id number] [place] [address] 10006- 4486 06 Jul, 2017 Elevated blood pressure reading R03.0 [facility] [id number] [place] [address] 84044- 1921 05 Jul, 2017 [facility] [address] 30221- 3866 01 Jul, 2017 Bipolar II disorder F31.81 ; Post-traumatic stress disorder , chronic F43.12 and Memory change R41.3 [facility] [address] 25051- 1469 Jun, [facility] [address] [place] [address] 48358- 9704 Jun, Bipolar II disorder F31.81 ; Post-traumatic stress disorder , chronic F43.12 and Memory change R41.3 [facility] [id number] [place] [address] 02736- 3223 10 Jun, 2017 Localized swelling, mass or lump of neck R22.1 ; Slow transit constipation K59.01 and Elevated blood pressure reading R03.0 [facility] [id number] [place] [address] 09115- 4751 Jun, [facility] [id number] [place] [address] 67178- 3263 Jun, Bipolar affective disorder, currently manic, mild F31.11 [facility] [place] [id number] [place] [address] 01518 -8414 15 May, 2017 [facility] [place] [id number] [place] [address] 90194 -2943 14 May, 2017 [facility] [place] [id number] [place] [address] 62844- 0130 May, Bipolar II disorder F31.81 ; Post-traumatic stress disorder , chronic F43.12 and Memory change R41.3 [facility] [id number] [place] [address] 40969- 0692 May, [facility] [id number] [place] [address] 86820- 7791 08 May, 2017 [facility] [id number] [place] [address] 39136- 2740 05 May, 2017 Bipolar affective disorder, currently manic, mild F31.11 [facility] [id number] [place] [address] 29123- 2720 04 May, 2017 [facility] [id number] [place] [address] 01427 -1820 May, Localized swelling, mass or lump of neck R22.1 and Localized swelling, mass and lump, head R22.0 [facility] [id number] [place] [address] 35283- 6695 Apr, [facility] [id number] [place] [address] 32444- 1840 Apr, Bipolar affective disorder, currently manic, mild F31.11 [facility] [address] 96675- 4093 Apr, Bipolar II disorder F31.81 [facility] [address] 09122- 6870 Apr, [facility] [address] 93324- 9471 Apr, Bipolar affective disorder, currently manic, mild F31.11 [facility] [id number] [place] [address] 83314- 7617 Apr, Actinic keratosis L57.0 [facility] [id number] [place] [address] 66769- 8452 Apr, Bipolar affective disorder, currently manic, mild F31.11 [facility] [id number] [place] [address] 01979- 2880 Apr, [facility] [id number] [place] [address] 84123 -4200 Mar, Allergic contact dermatitis, unspecified trigger L23.9 and Right leg pain M79.604 [facility] [id number] [place] [address] 20839- 7061 Mar, [facility] [address] 72812- 2517 Mar, Bipolar II disorder F31.81 ; Post-traumatic stress disorder , chronic F43.12 and Memory change R41.3 [facility] [address] [address]- 5087 04 Mar, 2017 Actinic keratosis L57.0 [facility] [id number] [place] [address] 68415- 6691 Jan, Bipolar II disorder F31.81 ; Post-traumatic stress disorder , chronic F43.12 and Memory change R41.3 [facility] [id number] [place] [address] 94437- 4150 Jan, Bipolar affective disorder, currently manic, mild F31.11 [facility] [id number] [place] [address] 88340- 0927 13 Jan, 2017 Bipolar affective disorder, currently manic, mild F31.11 [facility] [id number] [place] [address] 73213- 2951 Jan, Bipolar II disorder F31.81 ; Post-traumatic stress disorder , chronic F43.12 and Memory change R41.3 [facility] [address] [place] [address] 40927- 7257 Dec, Bipolar II disorder F31.81 ; Post-traumatic stress disorder , chronic F43.12 and Memory change R41.3 [facility] [id number] [place] [address] 41001- 5356 Dec, Bipolar affective disorder, currently manic, mild F31.11 [facility] [id number] [place] [address] 74685- 6688 Dec, Bipolar affective disorder, currently manic, mild F31.11 [facility] [address] [place] [address] 92384- 2484 Dec, Post-traumatic stress disorder, chronic F43.12 [facility] [id number] [place] [address] 58894- 5977 Dec, Bipolar II disorder F31.81 ; Post-traumatic stress disorder , chronic F43.12 and Memory change R41.3 [facility] [id number] [place] [address]- 2546 Dec, Post-traumatic stress disorder, chronic F43.12 [facility] [address] [place] [address]- 5697 Nov, [facility] [address] [place] [address]- 2727 Nov, Bipolar II disorder F31.81 ; Post-traumatic stress disorder , chronic F43.12 and Memory change R41.3 [facility] [address] [place] [address]- 1202 Nov, [facility] [address] [place] [address] 85987- 1232 Nov, Post-traumatic stress disorder, chronic F43.12 and Bipolar II disorder F31.81 [facility] [address] [place] [address]- 9482 Nov, Actinic keratosis L57.0 [facility] [address] [place] [address]- 1360 Oct, Bipolar II disorder F31.81 ; Post-traumatic stress disorder , chronic F43.12 and Memory change R41.3 [facility] [address] [place] [address]- 2826 Oct, Post-traumatic stress disorder, chronic F43.12 ; Bipolar II disorder F31.81 and Memory change R41.3 [facility] [address] [place] [address]- 7135 Oct, Bipolar II disorder F31.81 ; Post-traumatic stress disorder , chronic F43.12 and Memory change R41.3 [facility] [address] [address]- 4805 Oct, Actinic keratosis L57.0 [facility] [address] [place] [address]- 0863 September, Bipolar II disorder F31.81 ; Post-traumatic stress disorder , chronic F43.12 and Memory change R41.3 [facility] [address] [place] [address]- 9740 September, Bipolar II disorder F31.81 ; Post-traumatic stress disorder , chronic F43.12 and Memory change R41.3 [facility] [address] [place] [address]- 0293 September, Post-traumatic stress disorder, chronic F43.12 ; Bipolar II disorder F31.81 and Memory change R41.3 [facility] [address] [place] [address]- 9559 Jul, Bipolar II disorder F31.81 ; Post-traumatic stress disorder , chronic F43.12 and Memory change R41.3 [facility] [address] [place] [address]- 3398 Jul, Bipolar II disorder F31.81 ; Post-traumatic stress disorder , chronic F43.12 and Memory change R41.3 [facility] [address] [place] [address]- 2659 Jul, Bipolar II disorder F31.81 ; Post-traumatic stress disorder , chronic F43.12 and Memory change R41.3 [facility] [address] [place] [address]- 6539 Jul, Post-traumatic stress disorder, chronic F43.12 ; Bipolar II disorder F31.81 and Memory change R41.3 [facility] [address] [place] [address]- 1145 Jul, Tear of medial meniscus of right knee, unspecified tear type , unspecified whether old or current tear, initial encounter S83.241A [facility] [id number] [place] [address] 10754- 7728 Jul, Bipolar II disorder F31.81 ; Post-traumatic stress disorder , chronic F43.12 and Memory change R41.3 [facility] [address] [place] [address] 34107- 0331 07 Jul, 2016 Shortness of breath R06.02 ; Mixed hyperlipidemia E78.2 and Chronic fatigue R53.82 [facility] [id number] [place] [address] 14603- 0401 07 Jul, 2016 Bipolar II disorder F31.81 ; Post-traumatic stress disorder , chronic F43.12 and Memory change R41.3 [facility] [place] [id number] [place] [address] 01208- 6280 Jul, [facility] [id number] [place] [address] 21674- 0299 Jun, Bipolar II disorder F31.81 ; Post-traumatic stress disorder , chronic F43.12 and Memory change R41.3 [facility] [address] [place] [address] 22228- 5756 Jun, Post-traumatic stress disorder, chronic F43.12 ; Bipolar II disorder F31.81 and Memory change R41.3 [facility] [address] [place] [address] 78296- 9967 Jun, Right anterior knee pain M25.561 ; Shortness of breath R06.02 and Bronchiolitis J21.9 [facility] [address] [place] [address] 78690- 4951 Jun, [facility] [id number] [place] [address] 06218- 5533 Jun, Bipolar II disorder F31.81 ; Post-traumatic stress disorder , chronic F43.12 and Memory change R41.3 [facility] [id number] [place] [address] 66348- 4599 Jun, [facility] [id number] [place] [address] 07563- 1554 Jun, Bipolar II disorder F31.81 ; Post-traumatic stress disorder , chronic F43.12 and Memory change R41.3 [facility] [id number] [place] [address] 82671- 7155 May, [facility] [address], [place] [address]- 2696 May, [facility] [id number] [place] [address] 94660- 5656 May, [facility] [id number] [place] [address] 87907- 7586 May, Right anterior knee pain M25.561 ; Cough R05 ; Skin lesion of right arm L98.9 and Lesion of skin of face L98.9 [facility] [address] [place] [address] 46229- 7236 May, [facility] [id number] [place] [address] 65067- 9926 May, Post-traumatic stress disorder, chronic F43.12 ; Memory change R41.3 and Bipolar I disorder, most recent episode manic F31.10 [facility] [id number] [place] [address] 96741- 9896 May, [facility] [id number] [place] [address] 09590- 9566 May, Right anterior knee pain M25.561 [facility] [address] [place] [address] 80016- 3206 May, [facility] [address] [place] [address] 22482- 5260 Apr, Bipolar II disorder F31.81 ; Post-traumatic stress disorder , chronic F43.12 and Memory change R41.3 [facility] [id number] [address]- 2766 Apr, Bipolar II disorder F31.81 ; Post-traumatic stress disorder , chronic F43.12 and Memory change R41.3 [facility] [address], [place] [address]- 1196 Apr, Post-traumatic stress disorder, chronic F43.12 ; Bipolar II disorder F31.81 and Memory change R41.3 [place] [id number] [place] [address] 02041- 0804 Mar, Bipolar II disorder F31.81 ; Post-traumatic stress disorder , chronic F43.12 and Memory change R41.3 [facility] [id number] [place] [address] 26557- 8959 Mar, Memory change R41.3 ; Confusion R41.0 and Dizziness R42 [facility] [id number] [place] [address] 85856- 7095 Mar, Memory change R41.3 ; Encounter for immunization Z23 and Fatigue, unspecified type R53.83 [facility] [address] [place] [address] 30309- 7273 Mar, Bipolar II disorder F31.81 ; Post-traumatic stress disorder , chronic F43.12 and Memory change R41.3 [place] [address] [place] [address] 24137- 5241 Jan, Bipolar II disorder F31.81 ; Post-traumatic stress disorder , chronic F43.12 and Memory change R41.3 [facility] [id number] [place] [address] 31859- 0768 Jan, Post-traumatic stress disorder, chronic F43.12 ; Bipolar II disorder F31.81 ; Anxiety disorder, unspecified F41.9 and Memory change R41.3 [facility] [place] [id number] [place] [address] 24782- 9452 15 Feb, 2016 Bipolar II disorder F31.81 ; Post-traumatic stress disorder , chronic F43.12 and Memory change R41.3 [facility] [id number] [place] [address] 31979- 7768 Dec, Bipolar II disorder F31.81 ; Post-traumatic stress disorder , chronic F43.12 and Memory change R41.3 [place] [id number] [place] [address] 21840- 3691 Dec, Memory loss R41.3 [facility] [address] [place] [address] 02359- 0304 Dec, Bipolar II disorder F31.81 ; Post-traumatic stress disorder , chronic F43.12 and Memory change R41.3 [facility] [address] [place] [address] 95457- 7104 Nov, Bipolar II disorder F31.81 and Post-traumatic stress disorder, chronic F43.12 [facility] [address] [place] [address] 70415- 5428 Nov, Bipolar II disorder F31.81 ; Post-traumatic stress disorder , chronic F43.12 and Memory change R41.3 [facility] [id number] [place] [address] 16385- 8921 Oct, Post-traumatic stress disorder, chronic F43.12 and Bipolar disorder, unspecified F31.9 [facility] [id number] [place] [address] 07213- 5328 Oct, Bipolar II disorder F31.81 ; Post-traumatic stress disorder , chronic F43.12 and Memory change R41.3 [facility] [address] [place] [address] [id number] Oct, Dental examination Z01.20 [facility] [address] [place] [address] 45159- 8417 September, Bipolar II disorder F31.81 ; Post-traumatic stress disorder , chronic F43.12 and Memory change R41.3 [facility] [address] [place] [address] 04548- 1990 Aug, Bipolar II disorder F31.81 and Post-traumatic stress disorder, chronic F43.12 [facility] [address] [place] [address] 23120954- 1487 Aug, Bipolar II disorder F31.81 and Post-traumatic stress disorder, chronic F43.12 [facility] [address] [place] [address] 97249- 0728 Jul, Bipolar II disorder F31.81 and Post-traumatic stress disorder, chronic F43.12 [place] [id number] [place] 8574 Jul, [facility] [id number] [place] [address] 38438- 2025 Jul, [facility] [id number] [place] [address] 95106- 0488 Jul, Post-traumatic stress disorder, chronic F43.12 and Bipolar disorder, unspecified F31.9 [place] [id number] [place] 2731 Jun, Bipolar II disorder F31.81 and Post-traumatic stress disorder, chronic F43.12 [place] [id number] [place] [address] 704885- 4917 Jun, Post-traumatic stress disorder, chronic F43.12 and Bipolar disorder, unspecified F31.9 [facility] [id number] [place] [address]- [address]873 Jun, [facility] [id number] [place] [address]18- 3335 Jun, Pharyngeal dysphagia R13.13 ; Hoarseness R49.0 and Cough R05 [facility] [id number] [place] [address]78- 6916 Jun, Post-traumatic stress disorder, chronic F43.12 and Bipolar disorder, unspecified F31.9 [facility] [id number] [place] [address]- 3452 May, Cough R05 [facility] [id number] [place], [place] [id number] May, Post-traumatic stress disorder, chronic F43.12 and Bipolar disorder, unspecified F31.9 [facility] [place] [id number] [place] [address]- 5784 May, Cough R05 [facility] [address] [address] May, [facility] [id number] [id number] May, Dental examination Z01.20 [facility] [id number] [place] [address] 9[address]21- [phone] 15 May, 2015 Bipolar II disorder F31.81 and Post-traumatic stress disorder, chronic F43.12 [facility] [id number] [place] [address] 22534- 8479 14 May, 2015 [facility] [id number] [place] [address] 03051- 1539 14 May, 2015 Bipolar II disorder F31.81 and Anxiety disorder, unspecified F41.9 [facility] [id number] [place] [address] 32900- 3080 10 May, 2015 Memory change R41.3 and History of renal insufficiency syndrome Z87.448 [facility] [id number] [place] [address] 72795- 0775 03 May, 2015 Memory change R41.3 ; Dry mouth R68.2 and History of renal insufficiency syndrome Z87.448 [facility] [id number] [place] [address] 43761- 4693 May, Bipolar II disorder F31.81 and Post-traumatic stress disorder, chronic F43.12 [facility] [id number] [place] [address] 51659- 7246 Mar, Bipolar disorder, unspecified F31.9 and Generalized anxiety disorder F41.1 [facility] [id number] [place] [address] 66096- 6703 Mar, Bipolar II disorder F31.81 [facility] [id number] [place] [address] 26448- 8959 Mar, Encounter for immunization Z23 [facility] [address] [address] 1420 Mar, [facility] [id number] [place] [address] 60493- 2416 Mar, Bipolar II disorder F31.81 [facility] [id number] [place] [address] 408319- 0951 Mar, [facility] [id number] [place] [address] 51401- 2190 Jan, Bipolar disorder, unspecified 296.80 and Anxiety disorder 300.00 [facility] [id number] [place] [address] 93088- 9504 Jan, [facility] [id number] [place] [address] 05950- 6542 Jan, Bipolar disorder, unspecified 296.80 and Anxiety disorder 300.00 [facility] [id number] [place] [address] 53697- 2484 Dec, Bipolar disorder, unspecified 296.80 and Anxiety disorder 300.00 [facility] [id number] [place] [address] 56813- 4702 Dec, [facility] [id number] [place] [address] 09731- 9725 Dec, Bipolar disorder, unspecified 296.80 and Anxiety disorder 300.00 [facility] [id number] [place] [address] 82520- 7916 Nov, Bipolar disorder, unspecified 296.80 and Anxiety disorder 300.00 [facility] [address] [address] 0485 Oct, Bipolar disorder, unspecified 296.80 and Anxiety disorder 300.00 [facility] [id number] [place] [address] 31596- 0042 Oct, Anxiety 300.00 and Bipolar disorder, unspecified 296.80 [facility] [id number] [place] [address] 08764- 7510 September, Bipolar disorder, unspecified 296.80 and Anxiety disorder 300.00 [facility] [address] [address] 8492 September, [facility] [address] [address] 5987 Aug, Cough 786.2 [facility] [id number] [place] [address] 528323- 0066 Aug, [facility] [id number] [place] [address] 088187- 2201 Aug, [facility] [id number] [place] [address] 126196- 7783 Jul, [facility] [address] 1773 Jul, [facility] [id number] [place] [address] 84453- 9574 Jul, [facility] [address] [address] 2346 Jul, [facility] [address] [address]- 4316 Jul, [facility] [address] [place] [address] 0506 Jul, [facility] [address], [place] [address] 1942 Jun, [facility] [address], [place] [address]- 1034 Jun, [facility] [address] 6270 Jun, [facility] [address] [address]- 5868 Jun, [facility] [address], [place] [address]- 5714 May, [facility] [place] [facility] [address] [id number] [place] [address]- 9640 May, [facility] [place] [facility] [address] [id number] [place] 5971 May, [facility] [place] [facility] [address] [id number] [place] [address]262 May, [facility] [place] [facility] [address] [id number] [place] [address]- 3996 Apr, [facility] [place] [facility] [address] [id number] [place] [address]- 1228 Apr, [facility] [place] [facility] [address] [id number] [place] [address]- 7159 Mar, [facility] [place] [facility] [address] [id number] [place] [address]- 1111 Mar, [facility] [place] [facility] [address] [id number] [place] [address]- 3743 Mar, [facility] [place] [facility] [address] [id number] [place] [address]- 7155 Mar, [facility] [place] [facility] [address] [id number] [place] [address]- 6185 Mar, [facility] [place] [facility] [address] [id number], [place] [address]- 5914 Mar, [facility] [place] [facility] [address] [id number], [place] [address]- 2039 Jan, [facility] [place] [facility] [address] [id number] [place] [address]- 3615 Jan, [facility] [place] [facility] [address] [id number] [place] [address]- 6335 Jan, [facility] [place] [facility] [address] [id number] [place] [address]- 9357 Jan, [facility] [place] [facility] [address] [id number] [place] [address]- 7924 Jan, [facility] [place] [facility] [address] [id number] [place] [address]- 1352 Jan, [facility] [place] [facility] [address] [id number] [place] [address]- 0539 Dec, [facility] [place] [facility] [address] [id number] [place] [address]- 9823 Dec, [facility] [place] [facility] [address] [id number] [place] [address]- 5541 Dec, [facility] [place] [facility] [address] [id number] [place] [address]- 2527 Dec, [facility] [place] [facility] [address] [id number] [place] [address]- 5063 Dec, [facility] [place] [facility] [address] [id number] [place] [address]- 0431 Dec, [facility] [place] [facility] [address] [id number] [place] [address]- 7966 Nov, [facility] [place] [facility] [address] [id number] [place] [address]- 4998 Nov, [facility] [place] [facility] [address] [id number] [place] [address]- 2680 Nov, [facility] [place] [facility] [address] [id number] [place] [address]- 5718 Nov, [facility] [place] [facility] [address] [id number] [place] [address]- 2791 Nov, [facility] [place] [facility] [address] [id number] [place] [address]- 6355 Nov, [facility] [place] [facility] [address] [id number] [place] [address]- 3654 Nov, [facility] [place] [facility] [address] [id number] [place] [address]- 0017 Nov, [facility] [place] [facility] [address] [id number] [place] [address]- 1472 Nov, [facility] [place] [facility] [address] [id number] [place] [address]- 2680 Nov, [facility] [place] [facility] [address] [id number] [place] [address]- 8150 September, [facility] [place] [facility] [address] [id number] [place] [address]- 8228 September, [facility] [place] [facility] [address] [id number] [place] [address]- 0379 September, [facility] [place] [facility] [address] [id number] [place] [address]- 9655 September, [facility] [place] [facility] [address] [id number] [place] [address]- 7267 September, [facility] [place] [facility] [address] [id number] [place] [address]- 0225 September, [facility] [place] [facility] [address] [id number] [place] [address]- 1822 September, [facility] [place] [facility] [address] [id number] [place] [address]- 2919 September, [facility] [place] [facility] [address] [id number] [place] [address]- 0777 Aug, [facility] [place] [facility] [address] [id number] [place] [address]- 5894 Aug, [facility] [place] [facility] [address] [id number] [place] [address]- 1966 Aug, [facility] [place] [facility] [address] [id number] [place] [address]- 0929 Aug, [facility] [place] [facility] [address] [id number] [place] [address]- 0903 Jul, [facility] [place] [facility] [address] [id number] [place] [address]- 4296 Jul, [facility] [place] [facility] [address] [id number] [place] [address]- 7666 Jul, [facility] [place] [facility] [address] [id number] [place] [address]- 8006 Jul, [facility] [place] [facility] [address] [id number] [place] [address]- 3366 18 Jul, 2013 [facility] [place] [facility] [address] [id number] [place] [address] 2546 Jul, [facility] [place] [facility] [address] [id number] [place] [address]- 3686 Jul, [facility] [place] [facility] [address] [id number] [place] [address]- 4596 Jul, [facility] [place] [facility] [address] [id number] [place] [address]- 3706 Jul, [facility] [place] [facility] [address] [id number] [place] [address]- 4503 Jul, [facility] [place] [facility] [address] [facility] [id number] [place] [address]- 4842 Jul, [facility] [place] [facility] [address] [facility] [id number] [place] [address]- 1783 Jun, [facility] [place] [facility] [address] [facility] [id number] [place] [address]- 8642 Jun, [facility] [place] [facility] [address] [id number] [place] [address]- 2544 Jun, [facility] [place] [facility] [address] [id number] [place] [address]- 0646 Jun, [facility] [place] [facility] [address] [facility] [id number] [place] [address]- 1136 May, [facility] [place] [facility] [address] [facility] [id number] [place] [address]- 2114 May, [facility] [place] [facility] [address] [id number] [place] [address]- 4665 Apr, [facility] [place] [facility] [address] [id number] [place] [address]- 1053 Apr, [facility] [place] [facility] [address] [id number] [place] [address]- 7853 Apr, [facility] [place] [facility] [address] [id number], [place] [address]- 1278 Apr, [facility] [place] [facility] [address] [id number] [place] [address]- 9024 Apr, [facility] [place] [facility] [address] [id number], [place] [address]- 4835 Apr, [facility] [place] [facility] [address] [id number] [place] [address]- 2857 Apr, [facility] [place] [facility] [address] [id number], [place] [address]- 2929 Apr, [facility] [place] [facility] [address] [id number], [place] [address]- 0382 Apr, [facility] [place] [facility] [address] [id number], [place] [address]- 0572 Apr, [facility] [place] [facility] [address] [id number], [place] [address]- 0408 Apr, [facility] [place] [facility] [address] [id number], [place] [address]- 8109 Apr, [facility] [place] [facility] [address] [id number], [place] [address]- 4426 Mar, [facility] [place] [facility] [address] [id number], [place] [address]- 9486 Mar, [facility] [place] [facility] [address] [id number], [place] [address]- 6019 Mar, [facility] [place] [facility] [address] [facility] [id number] [place] [address]- 8787 Dec, [facility] [id number], [place] [address]- 1824 Dec, [facility] [id number], [place] [address]- 9723 Dec, [facility] [address] [id number], [place] [address]- 4050 Oct, [facility] [address] [id number], [place] [address]- 6224 May, [facility] [address], [place] [address]- 4710 May, [facility] [address], [place] [address]- 2016 May, [facility] [id number], [place] [address]- 0659 Dec, IMMUNIZATIONS No Known Immunizations SOCIAL HISTORY Never Assessed REASON FOR VISIT f/u PLAN OF CARE Activity Details Follow Up 2 Weeks Reason: VITAL SIGNS MEDICATIONS Unknown Medications RESULTS No Results PROCEDURES Procedure Date Ordered Result Body Site [facility] VISIT MENTAL HEALTH ESTAB PT October 28, 2017 Psychotherapy, patient &/family, 30 minutes, established patient October 28, 2017 INSTRUCTIONS MEDICATIONS ADMINISTERED No [...] Gall Bladder Surgical History Tubalization Hospitalization History [facility] 12/2014 Hospitalization History Obstructive Airway Disease, Mood disorder, cough-[facility] 07/02/15 Hospitalization History Bronchitis- [facility] 06/2016
--- OUTSIDE RECORDS SUMMARY | 2018-02-03 09:25 | XMS REPORT ---
Author Author JOHNSONMADDY Paiz Organization [facility] [place] Address [address] [place] [address] Care Team Providers Care Snuff Blender Name Role Phone MADDY JOHNSON Unavailable PROBLEMS Type Condition ICD9-CM Code [id number] Code Onset Dates Condition Status SNOMED Code Problem Slow transit constipation K59.01 Active 04434713 Problem Bipolar disorder, current episode mixed, mild F31.61 Active 841405653 Problem Chronic obstructive pulmonary disease, unspecified COPD type J44.9 Active 17457915 Problem Bipolar II disorder F31.81 Active 80903537 Problem Post-traumatic stress disorder, chronic F43.12 Active 64824565 Problem Bipolar affective disorder, currently manic, mild F31.11 Active 493090490 Problem Lumbago with sciatica, left side M54.42 Active 377616960 Problem Essential hypertension I10 Active 52367601 Problem Other chronic pain G89.29 Active 32992677 Problem Bipolar disorder, in partial remission, most recent episode mixed F31.77 Active 98333883 Problem Paresthesias R20.2 Active 91632145 Problem Irritable bowel syndrome with both constipation and diarrhea K58.2 Active 84888966 ALLERGIES Substance Reaction Event Type Date Status Xanax memory problems, mental disorganization Non Drug Allergy September, Active Silk tape rash Non Drug Allergy September, Active ENCOUNTERS Encounter Location Date Diagnosis [facility] [place] [id number], [place] [address] Jan, [facility] [place] [address] [place] [address] Jan, [facility] [place] [address] [address] 0580 Jan, [facility] [place] [id number], [place] [address] 58[address] Dec, [facility] [place] [address] [place] [address] 53670- 3434 Nov, Bipolar II disorder F31.81 and Post-traumatic stress disorder, chronic F43.12 [facility] [place] [id number] [place] [address] 07278- 3719 Nov, Essential hypertension I10 ; Lymph node enlargement R59.9 ; Paresthesias R20.2 ; Irritable bowel syndrome with both constipation and diarrhea K58.2 ; Lumbago with sciatica, left side M54.42 and Other chronic pain G89.29 [facility] [place] [id number] [place] [address] 54186- 1494 Nov, Bipolar disorder, in partial remission, most recent episode mixed F31.77 [facility] [place] [id number] [place] [address] 86989- 1501 Oct, Bipolar disorder, in partial remission, most recent episode mixed F31.77 [facility] [id number] [place] [address] 64715 -8772 Oct, Scabies B86 [facility] [place] [id number] [place] [address] 74706- 4948 Oct, Bipolar disorder, in partial remission, most recent episode mixed F31.77 [facility] [place] [id number] [place] [address] 42496- 6021 Oct, [facility] [place] [id number] [place] [address] 75562- 7815 Oct, Bipolar II disorder F31.81 and Post-traumatic stress disorder, chronic F43.12 [facility] [id number] [place] [address] 98614 -1186 Oct, Scabies B86 [facility] [place] [id number] [place] [address] 31224- 8982 Oct, [facility] [place] [id number] [place] [address] 28488- 8789 September, Bipolar II disorder F31.81 and Post-traumatic stress disorder, chronic F43.12 [place] [id number] [place] [address] 92058- 9088 September, Bipolar disorder, in partial remission, most recent episode mixed F31.77 [place] [id number] [place] [address] 53117- 1310 September, COPD exacerbation J44.1 and Elevated blood pressure reading R03.0 [place] [facility] [id number] [place] [address] 74337- 4313 September, [place] [id number] [place] [address] 51459- 5674 September, Pain in left ankle and joints of left foot M25.572 ; Dermatitis L30.9 and Other chronic pain G89.29 [place] [address] 47738- 2513 Aug, Right elbow pain M25.521 and Elevated blood pressure reading R03.0 [place] [id number] [place] [address] 45670- 4836 Aug, Bipolar disorder, current episode mixed, mild F31.61 and BMI 40.0-44.9, adult Z68.41 [place] [id number] [place] [address] 02987- 4481 Aug, [facility] [id number] [place] [address] 88129- 1476 Aug, Bipolar II disorder F31.81 and Post-traumatic stress disorder, chronic F43.12 [facility] [id number] [place] [address] 06402- 5371 Jul, Elevated blood pressure reading R03.0 [facility] [id number] [place] [address] 30645- 1306 Jul, Bipolar II disorder F31.81 and Post-traumatic stress disorder, chronic F43.12 [place] [address] [place] [address] 94305- 3717 15 Jul, 2017 Bipolar disorder, current episode mixed, mild F31.61 [facility] [id number] [place] [address] 59378 -4125 12 Jul, 2017 Right foot pain M79.671 ; Allergic contact dermatitis, unspecified trigger L23.9 ; Contusion of right foot, initial encounter S90.31XA and BMI 40.0-44.9, adult Z68.41 [facility] [id number] [place] [address] 11840 -1236 Jul, 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 35730- 0212 Jul, [address] 53179- 8427 Jul, Bipolar disorder, current episode mixed, mild F31.61 [place] [id number] [place] [address] 62374- 1655 Jul, Bipolar II disorder F31.81 ; Post-traumatic stress disorder , chronic F43.12 and Memory change R41.3 [id number] [place] [address] 20548- 8907 14 Jul, 2017 Elevated blood pressure reading R03.0 ; Chronic obstructive pulmonary disease, unspecified COPD type J44.9 ; Long-term use of high-risk medication Z79.899 and Cognitive decline R41.89 [place] [id number] [place] [address] 51222- 3331 06 Jul, 2017 Elevated blood pressure reading R03.[address] 69972- 7178 05 Jul, [address] 22436- 2216 01 Jul, 2017 Bipolar II disorder F31.81 ; Post-traumatic stress disorder , chronic F43.12 and Memory change R41.3 [facility] [place] [id number] [place] [address] 90950- 3751 18 Jun, 2017 [facility] [place] [id number] [place] [address] 18661- 5256 18 Jun, 2017 Bipolar II disorder F31.81 ; Post-traumatic stress disorder , chronic F43.12 and Memory change R41.3 [facility] [place] [id number] [place] [address] 89664- 9623 10 Jun, 2017 Localized swelling, mass or lump of neck R22.1 ; Slow transit constipation K59.01 and Elevated blood pressure reading R03.0 [place] [id number] [place] [address] 92635- 0997 Jun, [facility] [place] [id number] [place] [address] 45926- 1940 Jun, Bipolar affective disorder, currently manic, mild F31.11 [facility] [id number] [place] [address] 26584 -5787 15 May, 2017 [facility] [id number] [place] [address] 09487 -1798 14 May, 2017 [facility] [place] [id number] [place] [address] 62357- 8236 13 May, 2017 Bipolar II disorder F31.81 ; Post-traumatic stress disorder , chronic F43.12 and Memory change R41.3 [facility] [place] [address] [place] [address] 25844- 2481 May, [facility] [place] [id number] [place] [address] 01632- 8409 08 May, 2017 [facility] [place] [id number] [place] [address] 83846- 2149 05 May, 2017 Bipolar affective disorder, currently manic, mild F31.11 [place] [id number] [place] [address] 92008- 1121 May, [facility] [address] [place] [address] 93392 -9069 May, Localized swelling, mass or lump of neck R22.1 and Localized swelling, mass and lump, head R22.0 [facility] [place] [address] [place] [address] 38122- 6873 Apr, [facility] [place] [id number] [place] [address] 00435- 5688 Apr, Bipolar affective disorder, currently manic, mild F31.11 [facility] [place] [id number] [place] [address] 32238- 7074 Apr, Bipolar II disorder F31.81 [facility] [place] [id number] [place] [address] 90948- 5023 Apr, [facility] [place] [id number] [place] [address] 30358- 1281 Apr, Bipolar affective disorder, currently manic, mild F31.11 [facility] [place] [id number] [place] [address] 85966- 5859 Apr, Actinic keratosis L57.0 [facility] [place] [id number] [place] [address] 10169- 5814 Apr, Bipolar affective disorder, currently manic, mild F31.11 [facility] [place] [id number] [place] [address] 19217- 7192 Apr, [facility] [id number] [place] [address] 79618 -7108 Mar, Allergic contact dermatitis, unspecified trigger L23.9 and Right leg pain M79.604 [facility] [place] [id number] [place] [address] 45027- 1354 Mar, [facility] [place] [id number] [place] [address] 41596- 1064 Mar, Bipolar II disorder F31.81 ; Post-traumatic stress disorder , chronic F43.12 and Memory change R41.3 [facility] [place] [address], [place] [address]- 3834 04 Mar, 2017 Actinic keratosis L57.0 [facility] [place] [address], [place] [address]- 8713 28 Jan, 2017 Bipolar II disorder F31.81 ; Post-traumatic stress disorder , chronic F43.12 and Memory change R41.3 [facility] [place] [address] [address]- 4955 28 Jan, 2017 Bipolar affective disorder, currently manic, mild F31.11 [facility] [place] [id number] [place] [address] 54662- 2984 13 Jan, 2017 Bipolar affective disorder, currently manic, mild F31.11 [facility] [place] [address] [place] [address] 31282- 9644 Jan, Bipolar II disorder F31.81 ; Post-traumatic stress disorder , chronic F43.12 and Memory change R41.3 [facility] [place] [address], [place] [address]- 0944 Dec, Bipolar II disorder F31.81 ; Post-traumatic stress disorder , chronic F43.12 and Memory change R41.3 [facility] [place] [address], [place] [address]- 9953 Dec, Bipolar affective disorder, currently manic, mild F31.11 [facility] [place] [address], [place] [address]- 7864 Dec, Bipolar affective disorder, currently manic, mild F31.11 [facility] [place] [address], [place] [address]- 8042 Dec, Post-traumatic stress disorder, chronic F43.12 [facility] [place] [address], [place] [address]- 0230 Dec, Bipolar II disorder F31.81 ; Post-traumatic stress disorder , chronic F43.12 and Memory change R41.3 [facility] [place] [address] [address] 9843 Dec, Post-traumatic stress disorder, chronic F43.12 [facility] [place] [id number], [place] [address]- 5266 Nov, [facility] [place] [id number] [place] [address] [id number]- 2836 Nov, Bipolar II disorder F31.81 ; Post-traumatic stress disorder , chronic F43.12 and Memory change R41.3 [facility] [place] [address], [place] [address]- 1156 Nov, [facility] [place] [id number] [place] [address] 97072- 0835 Nov, Post-traumatic stress disorder, chronic F43.12 and Bipolar II disorder F31.81 [facility] [place] [address] [place] [address] 65806- 9343 Nov, Actinic keratosis L57.0 [facility] [place] [address] [place] [address] 67257- 8458 Oct, Bipolar II disorder F31.81 ; Post-traumatic stress disorder , chronic F43.12 and Memory change R41.3 [facility] [place] [address], [place] [address]- 8926 Oct, Post-traumatic stress disorder, chronic F43.12 ; Bipolar II disorder F31.81 and Memory change R41.3 [facility] [place] [id number], [place] [address]- 1185 Oct, Bipolar II disorder F31.81 ; Post-traumatic stress disorder , chronic F43.12 and Memory change R41.3 [facility] [place] [id number], [place] [address]- 0525 Oct, Actinic keratosis L57.0 [facility] [place] [id number] [place] [address] 47212- 7792 September, Bipolar II disorder F31.81 ; Post-traumatic stress disorder , chronic F43.12 and Memory change R41.3 [facility] [place] [address] [place] [address] 6494 September, Bipolar II disorder F31.81 ; Post-traumatic stress disorder , chronic F43.12 and Memory change R41.3 [facility] [place] [id number] [place] [address] 79754- 2054 September, Post-traumatic stress disorder, chronic F43.12 ; Bipolar II disorder F31.81 and Memory change R41.3 [place] [id number] [place] [address]- [address] Jul, Bipolar II disorder F31.81 ; Post-traumatic stress disorder , chronic F43.12 and Memory change R41.3 [place] [id number] [place] [address] 70860- 4129 Jul, Bipolar II disorder F31.81 ; Post-traumatic stress disorder , chronic F43.12 and Memory change R41.3 [place] [address] [place] [address] 11015- 8167 Jul, Bipolar II disorder F31.81 ; Post-traumatic stress disorder , chronic F43.12 and Memory change R41.3 [facility] [place] [address] [place] [address] 90489- 4719 Jul, Post-traumatic stress disorder, chronic F43.12 ; Bipolar II disorder F31.81 and Memory change R41.3 [facility] [place] [address] [place] [address] 05960- 7609 Jul, Tear of medial meniscus of right knee, unspecified tear type , unspecified whether old or current tear, initial encounter S83.241A [facility] [place] [address] [place] [address] 87264- 6485 Jul, Bipolar II disorder F31.81 ; Post-traumatic stress disorder , chronic F43.12 and Memory change R41.3 [facility] [place] [address] [place] [address]- 6652 07 Jul, 2016 Shortness of breath R06.02 ; Mixed hyperlipidemia E78.2 and Chronic fatigue R53.82 [facility] [place] [address] [place] [address] 44350- 0280 07 Jul, 2016 Bipolar II disorder F31.81 ; Post-traumatic stress disorder , chronic F43.12 and Memory change R41.3 [place] [id number] [place] [address] 49807- 8512 02 Jul, 2016 [place] [id number] [place] [address] 83054- 5551 Jun, Bipolar II disorder F31.81 ; Post-traumatic stress disorder , chronic F43.12 and Memory change R41.3 [place] [id number] [place] [address] 94078- 0847 Jun, Post-traumatic stress disorder, chronic F43.12 ; Bipolar II disorder F31.81 and Memory change R41.3 [place] [address] [place] [address] 12343- 4991 Jun, Right anterior knee pain M25.561 ; Shortness of breath R06.02 and Bronchiolitis J21.9 [place] [address], [place] [address]- 5801 Jun, [place] [id number] [place] [address] 65350- 6754 Jun, Bipolar II disorder F31.81 ; Post-traumatic stress disorder , chronic F43.12 and Memory change R41.3 [place] [id number] [place] [address] 74697- 3359 Jun, [place] [address] [place] [address] 71068- 3891 Jun, Bipolar II disorder F31.81 ; Post-traumatic stress disorder , chronic F43.12 and Memory change R41.3 [facility] [place] [id number], [place] [address]- 7172 May, [facility] [place] [address] [place] [address] 11548- 9096 May, [facility] [place] [id number], [place] [address] 2546 May, [facility] [place] [id number] [place] [address] 89954 2546 May, Right anterior knee pain M25.561 ; Cough R05 ; Skin lesion of right arm L98.9 and Lesion of skin of face L98.9 [facility] [place] [address] [place] [address] 25998- 8516 May, [facility] [place] [address] [place] [address] 43723- 3536 May, Post-traumatic stress disorder, chronic F43.12 ; Memory change R41.3 and Bipolar I disorder, most recent episode manic F31.10 [facility] [place] [address] [place] [address] 03117- 0046 May, [facility] [place] [address] [place] [address] 05043- 5564 May, Right anterior knee pain M25.561 [facility] [place] [address], [place] [address]- 3256 May, [facility] [place] [address] [place] [address] 80299 2543 Apr, Bipolar II disorder F31.81 ; Post-traumatic stress disorder , chronic F43.12 and Memory change R41.3 [facility] [place] [id number] [place] [address] 90863- 1806 17 Apr, 2016 Bipolar II disorder F31.81 ; Post-traumatic stress disorder , chronic F43.12 and Memory change R41.3 [facility] [place] [address] [place] [address] 02808- 1608 Apr, Post-traumatic stress disorder, chronic F43.12 ; Bipolar II disorder F31.81 and Memory change R41.3 [place] [id number] [place] [address] 81572- 3648 Mar, Bipolar II disorder F31.81 ; Post-traumatic stress disorder , chronic F43.12 and Memory change R41.3 [place] [id number] [place] [address] 94067- 5264 Mar, Memory change R41.3 ; Confusion R41.0 and Dizziness R42 [place] [id number] [place] [address] 43004- 7305 Mar, Encounter for immunization Z23 ; Memory change R41.3 and Fatigue, unspecified type R53.83 [place] [id number] [place] [address] 00691- 3178 Mar, Bipolar II disorder F31.81 ; Post-traumatic stress disorder , chronic F43.12 and Memory change R41.3 [place] [id number] [place] [address] 05621- 2710 Jan, Bipolar II disorder F31.81 ; Post-traumatic stress disorder , chronic F43.12 and Memory change R41.3 [place] [address] [place] [address] 02871- 5419 Jan, Post-traumatic stress disorder, chronic F43.12 ; Bipolar II disorder F31.81 ; Anxiety disorder, unspecified F41.9 and Memory change R41.3 [place] [address] [place] [address] 36545- 1647 15 Feb, 2016 Bipolar II disorder F31.81 ; Post-traumatic stress disorder , chronic F43.12 and Memory change R41.3 [place] [id number] [place] [address] [phone] Dec, Bipolar II disorder F31.81 ; Post-traumatic stress disorder , chronic F43.12 and Memory change R41.3 [place] [id number] [address] Dec, Memory loss R41.3 [facility] [place] [id number] [place] [phone] Dec, Bipolar II disorder F31.81 ; Post-traumatic stress disorder , chronic F43.12 and Memory change R41.3 [facility] [place] [id number] [place] [address] [phone] Nov, Bipolar II disorder F31.81 and Post-traumatic stress disorder, chronic F43.12 [facility] [place] [id number] [place] [phone] Nov, Bipolar II disorder F31.81 ; Post-traumatic stress disorder , chronic F43.12 and Memory change R41.3 [facility] [place] [id number] [place] [phone] Oct, Post-traumatic stress disorder, chronic F43.12 and Bipolar disorder, unspecified F31.9 [facility] [place] [facility] [address], [place] [address] Oct, Bipolar II disorder F31.81 ; Post-traumatic stress disorder , chronic F43.12 and Memory change R41.3 [facility] [address] [id number] Oct, Dental examination Z01.20 [facility] [place] [address], [place] [address] September, Bipolar II disorder F31.81 ; Post-traumatic stress disorder , chronic F43.12 and Memory change R41.3 [facility] [place] [address], [place] [address] Aug, Bipolar II disorder F31.81 and Post-traumatic stress disorder, chronic F43.12 [facility] [place] [address], [place] [address] Aug, Bipolar II disorder F31.81 and Post-traumatic stress disorder, chronic F43.12 [facility] [id number] [place] [address] Jul, Bipolar II disorder F31.81 and Post-traumatic stress disorder, chronic F43.12 [facility] [id number] [place] [id number] 16 Jul, 2015 [facility] [address] 771 Jul, [facility] [id number] [place] [address]- 7101 Jul, Post-traumatic stress disorder, chronic F43.12 and Bipolar disorder, unspecified F31.9 [facility] [id number] [place] Jun, Bipolar II disorder F31.81 and Post-traumatic stress disorder, chronic F43.12 [facility] [id number] [place] [address] Jun, Post-traumatic stress disorder, chronic F43.12 and Bipolar disorder, unspecified F31.9 [facility] [id number] [place] [address] Jun, [facility] [id number] [place] [address]- 8599 Jun, Pharyngeal dysphagia R13.13 ; Hoarseness R49.0 and Cough R05 [facility] [id number] [place] [address] 04296- 5089 Jun, Post-traumatic stress disorder, chronic F43.12 and Bipolar disorder, unspecified F31.9 [facility] [id number] [place] [id number] May, Cough R05 [facility] [id number] [place] [address] 09897- 8793 May, Post-traumatic stress disorder, chronic F43.12 and Bipolar disorder, unspecified F31.9 [facility] [place] [address], [place] [address] 22 May, 2015 Cough R05 [facility] [place] [id number] [place] [address] 27926- 8696 16 May, 2015 [facility] [id number] [place] [id number] May, Dental examination Z01.20 [facility] [place] [id number] [place] [address] 88458- 4016 15 May, 2015 Bipolar II disorder F31.81 and Post-traumatic stress disorder, chronic F43.12 [facility] [place] [id number] [place] [address] 57299- 8849 14 May, 2015 [facility] [place] [id number] [place] [address] 03564- 7372 14 May, 2015 Bipolar II disorder F31.81 and Anxiety disorder, unspecified F41.9 [facility] [place] [id number] [place] [address] 18967- 7298 10 May, 2015 Memory change R41.3 and History of renal insufficiency syndrome Z87.448 [facility] [place] [id number] [place] [address] 26556- 4266 May, Memory change R41.3 ; Dry mouth R68.2 and History of renal insufficiency syndrome Z87.448 [facility] [place] [address] [place] [address] 48125- 8563 May, Bipolar II disorder F31.81 and Post-traumatic stress disorder, chronic F43.12 [facility] [place] [address] [place] [address] 41090- 5165 Mar, Bipolar disorder, unspecified F31.9 and Generalized anxiety disorder F41.1 [facility] [place] [address] [place] [address] 97849- 7295 Mar, Bipolar II disorder F31.81 [facility] [place] [id number] [place] [address] 24348- 3925 Mar, Encounter for immunization Z23 [facility] [place] [id number] [place] [address] 15754- 9857 Mar, [facility] [place] [id number] [place] [address] 23160- 6746 Mar, Bipolar II disorder F31.81 [facility] [place] [id number] [place] [address] 70408- 3426 Mar, [facility] [place] [id number] [place] [address] 72161- 2308 Jan, Bipolar disorder, unspecified 296.80 and Anxiety disorder 300.00 [facility] [place] [id number] [place] [address] 20687- 1514 Jan, [facility] [place] [id number] [place] [address] 09632- 4496 Jan, Bipolar disorder, unspecified 296.80 and Anxiety disorder 300.00 [facility] [place] [id number] [place] [address] 41149- 4535 Dec, Bipolar disorder, unspecified 296.80 and Anxiety disorder 300.00 [facility] [place] [id number] [place] [address] 61943- 7006 Dec, [facility] [place] [id number] [place] [address] 11255- 6534 Dec, Bipolar disorder, unspecified 296.80 and Anxiety disorder 300.00 [facility] [place] [id number] [place] [address] 35020- 6173 Nov, Bipolar disorder, unspecified 296.80 and Anxiety disorder 300.00 [facility] [place] [id number] [place] [address] 44192- 4830 Oct, Bipolar disorder, unspecified 296.80 and Anxiety disorder 300.00 [facility] [place] [id number] [place] [address] 79759- 1075 Oct, Anxiety 300.00 and Bipolar disorder, unspecified 296.80 [facility] [place] [address] [address] September, Bipolar disorder, unspecified 296.80 and Anxiety disorder 300.00 [facility] [place] [address] [place] [address]- 4546 September, [facility] [place] [id number] [place] [address] 78873- 2470 Aug, Cough 786.2 [facility] [place] [id number] [place] [address], [place] [address]- [address]28 Aug, [facility] [place] [id number] [place] [address], [place] [address] Aug, [facility] [place] [id number] Jul, [facility] [place] [id number] [place] [address] 04480- 4114 Jul, [facility] [place] [address], [place] [address]- 7523 Jul, [facility] [place] [address], [place] [address]- 2685 Jul, [facility] [place] [address], [place] [address]- 8015 Jul, [facility] [place] [address], [place] [address]- 0608 Jul, [facility] [place] [address] 4763 Jun, [facility] [place] [address], [place] [address]- 5442 Jun, [facility] [place] [address], [place] [address]- 1008 Jun, [facility] [place] [address], [place] [address]- 9624 Jun, [facility] [place] [facility] [address] [id number] [place] 5731 May, [facility] [place] [facility] [address] [id number] [place] [address]- 6397 May, [facility] [place] [facility] [address] [facility] [id number] [place] [address]- 4692 May, [facility] [place] [facility] [address] [id number] [place] [address]- 7998 May, [facility] [place] [facility] [address] [id number] [place] 4940 Apr, [facility] [place] [facility] [address] [id number] [place] [address]- 0141 Apr, [facility] [place] [facility] [address] [id number] [place] [address]- 8622 Mar, [facility] [place] [facility] [address] [id number] [place] [address]- 6166 Mar, [facility] [place] [facility] [address] [id number] [place] [address]- 6163 Mar, [facility] [place] [facility] [address] [id number] [place] [address]- 8195 Mar, [facility] [place] [facility] [address] [id number], [place] [address]- 9715 Mar, [facility] [place] [facility] [address] [id number], [place] [address]- 6126 Mar, [facility] [place] [facility] [address] [id number] [place] [address]- 3572 Jan, [facility] [place] [facility] [address] [id number] [place] [address]- 6594 Jan, [facility] [place] [facility] [address] [id number] [place] [address]- 2308 Jan, [facility] [place] [facility] [address] [id number] [place] [address]- 9441 05 Jan, 2013 [facility] [place] [facility] [address] [id number] [place] [address]- 7530 Jan, [facility] [place] [facility] [address] [id number] [place]- 2366 Jan, [facility] [place] [facility] [address] [id number] [place] [address]- 4934 Dec, [facility] [place] [facility] [address] [id number] [place] [address]- 4962 Dec, [facility] [place] [facility] [address] [id number] [place] [address]- 4802 Dec, [facility] [place] [facility] [address] [id number] [place] [address]- 9200 Dec, [facility] [place] [facility] [address] [id number] [place] [address]- 2313 Dec, [facility] [place] [facility] [address] [id number] [place] [address]- 3209 Dec, [facility] [place] [facility] [address] [id number] [place] [address]- 0518 Nov, [facility] [place] [facility] [address] [id number] [place] [address]- 9768 Nov, [facility] [place] [facility] [address] [id number] [place] [address]- 0361 Nov, [facility] [place] [facility] [address] [id number] [place] [address]- 7104 Nov, [facility] [place] [facility] [address] [id number] [place] [address]- 6213 Nov, [facility] [place] [facility] [address] [id number] [place] [address]- 1251 Nov, [facility] [place] [facility] [address] [id number] [place] [address]- 6105 Nov, [facility] [place] [facility] [address] [id number] [place] [address]- 2378 Nov, [facility] [place] [facility] [address] [id number] [place] [address]- 0451 Nov, [facility] [place] [facility] [address] [id number] [place] [address]- 8094 Nov, [facility] [place] [facility] [address] [id number] [place] [address]- 6116 September, [facility] [place] [facility] [address] [id number] [place] [address]- 9754 September, [facility] [place] [facility] [address] [id number] [place] [address]- 2989 September, [facility] [place] [facility] [address] [id number] [place] [address]- 2424 September, [facility] [place] [facility] [address] [id number] [place] [address]- 2366 September, [facility] [place] [facility] [address] [id number] [place] [address]- 5905 September, [facility] [place] [facility] [address] [id number] [place] [address]- 7775 September, [facility] [place] [facility] [address] [id number] [place] [address]- 8538 September, [facility] [place] [facility] [address] [id number] [place] [address]- 3349 Aug, [facility] [place] [facility] [address] [id number] [place] [address]- 1769 Aug, [facility] [place] [facility] [address] [id number] [place] [address]- 0093 Aug, [facility] [place] [facility] [address] [id number] [place] [address]- 6457 Aug, [facility] [place] [facility] [address] [id number] [place] [address]- 7509 Jul, [facility] [place] [facility] [address] [id number] [place] [address]- 9493 Jul, [facility] [place] [facility] [address] [id number] [place] [address]- 0556 Jul, [facility] [place] [facility] [address] [id number] [place] [address]- 3106 Jul, [facility] [place] [facility] [address] [id number] [place] [address]- 5802 18 Jul, 2013 [facility] [place] [facility] [address] [id number] [place] [address]- 5751 Jul, [facility] [place] [facility] [address] [id number] [place] [address]- 4766 Jul, [facility] [place] [facility] [address] [id number] [place] [address]- 1332 Jul, [facility] [place] [facility] [address] [id number] [place] [address]- 8259 Jul, [facility] [place] [facility] [address] [id number] [place] [address]- 6411 Jul, [facility] [place] [facility] [address] [facility] [id number] [place] [address]- 1839 Jul, [facility] [place] [facility] [address] [id number] [place] [address]- 8558 Jun, [facility] [place] [facility] [address] [id number] [place] [address]- 1493 Jun, [facility] [place] [facility] [address] [id number] [place] [address]- 4206 Jun, [facility] [place] [facility] [address] [id number] [place] [address]- 9777 Jun, [facility] [place] [facility] [address] [id number] [place] [address]- 0360 May, [facility] [place] [facility] [address] [id number] [place] [address]- 5434 May, [facility] [place] [facility] [address] [id number] [place] [address]- 1449 Apr, [facility] [place] [facility] [address] [id number], [place] [address]- 8896 Apr, [facility] [place] [facility] [address] [id number] [place] [address]- 7726 Apr, [facility] [place] [facility] [address] [id number] [place] [address]- 7750 Apr, [facility] [place] [facility] [address] [id number] [place] [address]- 9448 Apr, [facility] [place] [facility] [address] [id number] [place] [address]- 9525 Apr, [facility] [place] [facility] [address] [id number], [place] [address]- 2670 Apr, [facility] [place] [facility] [address] [id number], [place] [address]- 0883 Apr, [facility] [place] [facility] [address] [id number], [place] [address]- 4094 Apr, [facility] [place] [facility] [address] [id number], [place] [address]- 7002 Apr, [facility] [place] [facility] [address] [id number], [place] [address]- 5280 Apr, [facility] [place] [facility] [address] [id number], [place] [address]- 7223 Apr, [facility] [place] [facility] [address] [id number], [place] [address]- 2816 Mar, [facility] [place] [facility] [address] [id number], [place] [address]- 3476 Mar, [facility] [place] [facility] [address] [id number], [place] [address]- 7726 Mar, [facility] [id number] 2739 Dec, [facility] [place] [address]- 3196 Dec, [facility] [address], [place] [address]- 2040 Dec, [facility] [place] [address], [place] [address]- 1187 Oct, [facility] [place] [address], [place] [address]- 6508 May, [facility] [place] [address], [place] [address]- 1027 May, [facility] [place] [address], [place] [address]- 7289 May, [facility] [place] [address] [id number], [place] [address]- 5637 Dec, IMMUNIZATIONS No Known Immunizations SOCIAL HISTORY Never Assessed REASON FOR VISIT cough-twoodenMA, f/u from ER last week, started wheezing two ago PLAN OF CARE Activity Details Follow Up 3 Months, prn Reason:w/ PCP VITAL SIGNS Height 66 in 2017-10-23 Weight 230.9 lbs 2017-10-23 Temperature 98.0 degrees Fahrenheit 2017-10-23 Heart Rate 76 bpm 2017-10-23 Respiratory Rate 20 2017-10-23 Oximetry 99 % 2017-10-23 BMI 37.26 kg/m2 2017-10-23 Blood pressure systolic 140 mmHg 2017-10-23 Blood pressure diastolic 98 mmHg 2017-10-23 MEDICATIONS Medication Instructions Dosage Frequency Start Date End Date Duration Status Aspirin 81 MG Orally Once a day 1 tablet 24h Active Trazodone HCl 100 MG Orally at night as needed for sleep 1-2 tab Jun, 30 days Active Advair Diskus 100-50 MCG/DOSE Inhalation Twice a day 1 puff 12h Active Calcium 600 MG Orally Once a day 1 tablet with meals 24h 30 days Active Multivitamin Gummies Adult Active Albuterol Sulfate 108 (90 Base) MCG/ACT Inhalation every 4-6 hrs 1 puff as needed May, Active Premarin 0.9 MG Orally Once a day 1 tablet 24h Active Cymbalta 60 MG Orally Once a day 1 Capsule 24h 30 days Active Hydrochlorothiazide 25 MG Orally Once a day 1 tablet in the morning 24h September, 90 days Active Vitamin D 2000 UNIT Orally Once a day 1 tablet 24h Active Linzess 145 MCG Orally Once a day 1 capsule 24h Jun, Mar, 90 days Active PredniSONE 20 mg Orally Once a day 2 tablets 24h September, September, 03 days Active Diclofenac Sodium 75 MG Orally Twice a day 1 tablet with food or milk 12h September, Oct, 30 day(s) Active Magnesium Active Fish Oil 1000 MG Orally Once a day 2 capsule 24h Active Loxapine Succinate 5 MG Orally at night 1 capsule Oct, 30 days Active Triamcinolone Acetonide 0.1 % Externally Twice a day 1 application to affected area 12h Jul, 7 days Active Melatonin 5 MG 1 tablet at bedtime as needed with food Active Omeprazole 40 MG Orally Once a day 1 capsule 24h Active Abilify 30 MG Orally Once a day 1 tablet 24h 17 Nov, 2016 30 days Active RESULTS No Results PROCEDURES Procedure Date Ordered Result Body Site [facility] VISIT ESTABLISHED PATIENT October 23, 2017 INSTRUCTIONS MEDICATIONS ADMINISTERED No Known Medications [...] Bladder Surgical History Tubalization Hospitalization History [facility] 12/2014 Hospitalization History Obstructive Airway Disease, Mood disorder, cough-[facility] 07/02/15 Hospitalization History Bronchitis- [facility] 06/2016
--- OUTSIDE RECORDS SUMMARY | 2018-02-03 09:26 | XMS REPORT ---
Author Author KALEIGH OLIVER Organization [facility] Address [address] [place] [address] Care Team Providers Care Director Private Name Role Phone KALEIGH OLIVER Unavailable PROBLEMS Type Condition ICD9-CM Code SWS16-VC Code Onset Dates Condition Status SNOMED Code Problem Slow transit constipation K59.01 Active 70986959 Problem Bipolar disorder, current episode mixed, mild F31.61 Active 267963208 Problem Chronic obstructive pulmonary disease, unspecified COPD type J44.9 Active 61607433 Problem Bipolar II disorder F31.81 Active 27724993 Problem Post-traumatic stress disorder, chronic F43.12 Active 82766898 Problem Bipolar affective disorder, currently manic, mild F31.11 Active 415323123 Problem Lumbago with sciatica, left side M54.42 Active 557399630 Problem Essential hypertension I10 Active 21481644 Problem Other chronic pain G89.29 Active 49450716 Problem Bipolar disorder, in partial remission, most recent episode mixed F31.77 Active 79909610 Problem Paresthesias R20.2 Active 01673220 Problem Irritable bowel syndrome with both constipation and diarrhea K58.2 Active 85169939 ALLERGIES Substance Reaction Event Type Date Status Xanax memory problems, mental disorganization Non Drug Allergy September, Active Silk tape rash Non Drug Allergy September, Active ENCOUNTERS Encounter Location Date Diagnosis [facility] [id number], [place] [address] Jan, [facility] [address], [place] [address] Jan, [facility] [address], [place] [address] Jan, [facility] [id number], [place] [address] Dec, [facility] [address] [place] [address] 21884- 8976 Nov, Bipolar II disorder F31.81 and Post-traumatic stress disorder, chronic F43.12 [facility] [id number] [place] [address] 60324- 9315 Nov, Essential hypertension I10 ; Lymph node enlargement R59.9 ; Paresthesias R20.2 ; Irritable bowel syndrome with both constipation and diarrhea K58.2 ; Lumbago with sciatica, left side M54.42 and Other chronic pain G89.29 [facility] [id number] [place] [address] 02575- 1039 Nov, Bipolar disorder, in partial remission, most recent episode mixed F31.77 [facility] [id number] [place] [address] 79103- 8866 Oct, Bipolar disorder, in partial remission, most recent episode mixed F31.77 [facility] [id number] [place] [address] 81317 -4783 Oct, Scabies B86 [facility] [id number] [place] [address] 89465- 2042 Oct, Bipolar disorder, in partial remission, most recent episode mixed F31.77 [facility] [id number] [place] [address] 32466- 1861 Oct, [facility] [id number] [place] [address] 97215- 0084 Oct, Bipolar II disorder F31.81 and Post-traumatic stress disorder, chronic F43.12 [facility] [id number] [place] [address] 93225 -5871 Oct, Scabies B86 [facility] [id number] [place] [address] 04099- 0636 Oct, [facility] [id number] [place] [address] 64452- 2838 September, Bipolar II disorder F31.81 and Post-traumatic stress disorder, chronic F43.12 [id number] [place] [address] 94073- 6592 September, Bipolar disorder, in partial remission, most recent episode mixed F31.77 [place] [facility] [id number] [place] [address] 53780- 3308 September, COPD exacerbation J44.1 and Elevated blood pressure reading R03.0 [facility] [id number] [place] [address] 54727- 0089 September, [facility] [id number] [place] [address] 88174- 7271 September, Pain in left ankle and joints of left foot M25.572 ; Dermatitis L30.9 and Other chronic pain G89.29 [place] [address] 96308- 2400 Aug, Right elbow pain M25.521 and Elevated blood pressure reading R03.0 [facility] [id number] [place] [address] 13280- 2794 Aug, Bipolar disorder, current episode mixed, mild F31.61 and BMI 40.0-44.9, adult Z68.41 [facility] [id number] [place] [address] 94200- 3539 Aug, [facility] [id number] [place] [address] 38128- 8119 Aug, Bipolar II disorder F31.81 and Post-traumatic stress disorder, chronic F43.12 [facility] [id number] [place] [address] 86846- 1106 Jul, Elevated blood pressure reading R03.0 [facility] [id number] [place] [address] 30902- 2068 Jul, Bipolar II disorder F31.81 and Post-traumatic stress disorder, chronic F43.12 [facility] [facility] [id number] [place] [address] 04041- 0869 15 Jul, 2017 Bipolar disorder, current episode mixed, mild F31.61 [facility] [id number] [place] [address] 82442 -5022 12 Jul, 2017 Right foot pain M79.671 ; Allergic contact dermatitis, unspecified trigger L23.9 ; Contusion of right foot, initial encounter S90.31XA and BMI 40.0-44.9, adult Z68.41 [facility] [id number] [place] [address] 86379 -9365 Jul, 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 04936- 4195 Jul, [address] 31520- 0930 Jul, Bipolar disorder, current episode mixed, mild F31.61 [place] [id number] [place] [address] 87084- 4618 Jul, Bipolar II disorder F31.81 ; Post-traumatic stress disorder , chronic F43.12 and Memory change R41.3 [id number] [place] [address] 78253- 5285 14 Jul, 2017 Elevated blood pressure reading R03.0 ; Chronic obstructive pulmonary disease, unspecified COPD type J44.9 ; Long-term use of high-risk medication Z79.899 and Cognitive decline R41.89 [place] [id number] [place] [address] 14562- 6439 06 Jul, 2017 Elevated blood pressure reading R03.[address] 59835- 3122 05 Jul, [address] 30526- 7430 01 Jul, 2017 Bipolar II disorder F31.81 ; Post-traumatic stress disorder , chronic F43.12 and Memory change R41.3 [facility] [id number] [place] [address] 57552- 4649 18 Jun, 2017 [facility] [id number] [place] [address] 71099- 4696 18 Jun, 2017 Bipolar II disorder F31.81 ; Post-traumatic stress disorder , chronic F43.12 and Memory change R41.3 [facility] [id number] [place] [address] 68490- 9799 10 Jun, 2017 Localized swelling, mass or lump of neck R22.1 ; Slow transit constipation K59.01 and Elevated blood pressure reading R03.0 [place] [id number] [place] [address] 91511- 4107 Jun, [facility] [id number] [place] [address] 25427- 0475 Jun, Bipolar affective disorder, currently manic, mild F31.11 [facility] [id number] [place] [address] 67538 -8686 15 May, 2017 [facility] [id number] [place] [address] 77606 -3604 14 May, 2017 [facility] [id number] [place] [address] 09229- 0226 13 May, 2017 Bipolar II disorder F31.81 ; Post-traumatic stress disorder , chronic F43.12 and Memory change R41.3 [facility] [address] [place] [address] 25564- 7781 May, [facility] [id number] [place] [address] 70854- 4430 08 May, 2017 [facility] [id number] [place] [address] 30135- 3319 05 May, 2017 Bipolar affective disorder, currently manic, mild F31.11 [place] [id number] [place] [address] 24905- 8202 May, [facility] [address] [place] [address] 06238 -3992 May, Localized swelling, mass or lump of neck R22.1 and Localized swelling, mass and lump, head R22.0 [facility] [address] [place] [address] 74296- 9683 Apr, [facility] [id number] [place] [address] 21717- 0701 Apr, Bipolar affective disorder, currently manic, mild F31.11 [facility] [id number] [place] [address] 51080- 2217 Apr, Bipolar II disorder F31.81 [facility] [id number] [place] [address] 55683- 1259 Apr, [facility] [id number] [place] [address] 05188- 1249 Apr, Bipolar affective disorder, currently manic, mild F31.11 [facility] [id number] [place] [address] 34418- 1039 Apr, Actinic keratosis L57.0 [facility] [id number] [place] [address] 55863- 0003 Apr, Bipolar affective disorder, currently manic, mild F31.11 [facility] [id number] [place] [address] 61905- 1865 Apr, [facility] [id number] [place] [address] 07653 -8573 Mar, Allergic contact dermatitis, unspecified trigger L23.9 and Right leg pain M79.604 [facility] [id number] [place] [address] 79635- 7566 Mar, [facility] [id number] [place] [address] 51059- 0534 Mar, Bipolar II disorder F31.81 ; Post-traumatic stress disorder , chronic F43.12 and Memory change R41.3 [facility] [address], [place] [address]- 9181 04 Mar, 2017 Actinic keratosis L57.0 [facility] [address], [place] [address]- 3793 28 Jan, 2017 Bipolar II disorder F31.81 ; Post-traumatic stress disorder , chronic F43.12 and Memory change R41.3 [facility] [address], [place] [address]- 3216 28 Jan, 2017 Bipolar affective disorder, currently manic, mild F31.11 [facility] [id number] [place] [address] 08474- 4606 13 Jan, 2017 Bipolar affective disorder, currently manic, mild F31.11 [facility] [address] [place] [address] 22248- 9267 Jan, Bipolar II disorder F31.81 ; Post-traumatic stress disorder , chronic F43.12 and Memory change R41.3 [facility] [address], [place] [address]- 1779 Dec, Bipolar II disorder F31.81 ; Post-traumatic stress disorder , chronic F43.12 and Memory change R41.3 [facility] [address], [place] [address]- 4686 Dec, Bipolar affective disorder, currently manic, mild F31.11 [facility] [address], [place] [address]- 2319 Dec, Bipolar affective disorder, currently manic, mild F31.11 [facility] [address], [place] [address]- 6628 Dec, Post-traumatic stress disorder, chronic F43.12 [facility] [address], [place] [address]- 5924 Dec, Bipolar II disorder F31.81 ; Post-traumatic stress disorder , chronic F43.12 and Memory change R41.3 [facility] [address] [address] 9917 Dec, Post-traumatic stress disorder, chronic F43.12 [facility] [id number], [place] [address]- 7866 Nov, [facility] [id number] [place] [address] [phone]- 0386 Nov, Bipolar II disorder F31.81 ; Post-traumatic stress disorder , chronic F43.12 and Memory change R41.3 [facility] [address], [place] [address]- 5206 Nov, [facility] [id number] [place] [address] 41607- 8194 Nov, Post-traumatic stress disorder, chronic F43.12 and Bipolar II disorder F31.81 [facility] [address] [place] [address] 15873- 4859 Nov, Actinic keratosis L57.0 [facility] [address] [place] [address] 06995- 9873 Oct, Bipolar II disorder F31.81 ; Post-traumatic stress disorder , chronic F43.12 and Memory change R41.3 [facility] [address], [place] [address]- 6204 Oct, Post-traumatic stress disorder, chronic F43.12 ; Bipolar II disorder F31.81 and Memory change R41.3 [facility] [id number], [place] [address]- 0618 Oct, Bipolar II disorder F31.81 ; Post-traumatic stress disorder , chronic F43.12 and Memory change R41.3 [facility] [id number], [place] [address]- 7548 Oct, Actinic keratosis L57.0 [facility] [id number] [place] [address] 20880- 4053 September, Bipolar II disorder F31.81 ; Post-traumatic stress disorder , chronic F43.12 and Memory change R41.3 [facility] [address] [place] [address]69 September, Bipolar II disorder F31.81 ; Post-traumatic stress disorder , chronic F43.12 and Memory change R41.3 [facility] [id number] [place] [address] 22294- 2086 September, Post-traumatic stress disorder, chronic F43.12 ; Bipolar II disorder F31.81 and Memory change R41.3 [place] [id number] [place] [address] 1921 Jul, Bipolar II disorder F31.81 ; Post-traumatic stress disorder , chronic F43.12 and Memory change R41.3 [place] [id number] [place] [address] 11565- 4216 Jul, Bipolar II disorder F31.81 ; Post-traumatic stress disorder , chronic F43.12 and Memory change R41.3 [address] [place] [address] 75789- 2122 Jul, Bipolar II disorder F31.81 ; Post-traumatic stress disorder , chronic F43.12 and Memory change R41.3 [facility] [address] [place] [address] 89469- 9136 Jul, Post-traumatic stress disorder, chronic F43.12 ; Bipolar II disorder F31.81 and Memory change R41.3 [facility] [address] [place] [address] 80536- 6546 Jul, Tear of medial meniscus of right knee, unspecified tear type , unspecified whether old or current tear, initial encounter S83.241A [facility] [address] [place] [address] 16706- 7949 Jul, Bipolar II disorder F31.81 ; Post-traumatic stress disorder , chronic F43.12 and Memory change R41.3 [facility] [address], [place] [address]- 3964 07 Jul, 2016 Shortness of breath R06.02 ; Mixed hyperlipidemia E78.2 and Chronic fatigue R53.82 [facility] [address] [place] [address] 74059- 2916 07 Jul, 2016 Bipolar II disorder F31.81 ; Post-traumatic stress disorder , chronic F43.12 and Memory change R41.3 [place] [id number] [place] [address] 97442- 7012 02 Jul, 2016 [place] [id number] [place] [address] 52094- 8946 Jun, Bipolar II disorder F31.81 ; Post-traumatic stress disorder , chronic F43.12 and Memory change R41.3 [place] [id number] [place] [address] 77533- 1970 Jun, Post-traumatic stress disorder, chronic F43.12 ; Bipolar II disorder F31.81 and Memory change R41.3 [place] [address] [place] [address] 20820- 1314 Jun, Right anterior knee pain M25.561 ; Shortness of breath R06.02 and Bronchiolitis J21.9 [place] [address], [place] [address]- 4331 Jun, [place] [id number] [place] [address] 47760- 5213 Jun, Bipolar II disorder F31.81 ; Post-traumatic stress disorder , chronic F43.12 and Memory change R41.3 [place] [id number] [place] [address] 29140- 8888 Jun, [place] [address] [place] [address] 49807- 0510 Jun, Bipolar II disorder F31.81 ; Post-traumatic stress disorder , chronic F43.12 and Memory change R41.3 [facility] [id number], [place] [address]- 0697 May, [facility] [address] [place] [address] 00068- 3366 May, [facility] [id number], [place] [address] 2546 May, [facility] [id number] [place] [address] 89249 2546 May, Right anterior knee pain M25.561 ; Cough R05 ; Skin lesion of right arm L98.9 and Lesion of skin of face L98.9 [facility] [address] [place] [address] 96523- 7646 May, [facility] [address] [place] [address] 68804- 2126 May, Post-traumatic stress disorder, chronic F43.12 ; Memory change R41.3 and Bipolar I disorder, most recent episode manic F31.10 [facility] [address] [place] [address] 04717- 3406 May, [facility] [address] [place] [address] 95985- 4910 May, Right anterior knee pain M25.561 [facility] [address], [place] [address]- 1026 May, [facility] [address] [place] [address] 31288 2547 Apr, Bipolar II disorder F31.81 ; Post-traumatic stress disorder , chronic F43.12 and Memory change R41.3 [facility] [id number] [place] [address] 54965- 9146 17 Apr, 2016 Bipolar II disorder F31.81 ; Post-traumatic stress disorder , chronic F43.12 and Memory change R41.3 [facility] [address] [place] [address] 95302- 0190 Apr, Post-traumatic stress disorder, chronic F43.12 ; Bipolar II disorder F31.81 and Memory change R41.3 [place] [id number] [place] [address] 90690- 4435 Mar, Bipolar II disorder F31.81 ; Post-traumatic stress disorder , chronic F43.12 and Memory change R41.3 [place] [id number] [place] [address] 01558- 1269 Mar, Memory change R41.3 ; Confusion R41.0 and Dizziness R42 [place] [id number] [place] [address] 45087- 4764 Mar, Encounter for immunization Z23 ; Memory change R41.3 and Fatigue, unspecified type R53.83 [place] [id number] [place] [address] 57795- 6883 Mar, Bipolar II disorder F31.81 ; Post-traumatic stress disorder , chronic F43.12 and Memory change R41.3 [place] [id number] [place] [address] 18420- 1207 Jan, Bipolar II disorder F31.81 ; Post-traumatic stress disorder , chronic F43.12 and Memory change R41.3 [place] [address] [place] [address] 68893- 9641 Jan, Post-traumatic stress disorder, chronic F43.12 ; Bipolar II disorder F31.81 ; Anxiety disorder, unspecified F41.9 and Memory change R41.3 [place] [address] [place] [address] 66805- 5186 15 Feb, 2016 Bipolar II disorder F31.81 ; Post-traumatic stress disorder , chronic F43.12 and Memory change R41.3 [place] [address] [place] [address] 18211- 6407 Dec, Bipolar II disorder F31.81 ; Post-traumatic stress disorder , chronic F43.12 and Memory change R41.3 [place] [address], [place] [address]- 9302 Dec, Memory loss R41.3 [facility] [address] [place] [address] 98086- 7078 Dec, Bipolar II disorder F31.81 ; Post-traumatic stress disorder , chronic F43.12 and Memory change R41.3 [facility] [address] [place] [address] 09179- 5199 Nov, Bipolar II disorder F31.81 and Post-traumatic stress disorder, chronic F43.12 [facility] [address] [place] [address] 78643- 6266 Nov, Bipolar II disorder F31.81 ; Post-traumatic stress disorder , chronic F43.12 and Memory change R41.3 [facility] [address] [place] [address] 00557- 8623 Oct, Post-traumatic stress disorder, chronic F43.12 and Bipolar disorder, unspecified F31.9 [facility] [address], [place] [address]- 1375 Oct, Bipolar II disorder F31.81 ; Post-traumatic stress disorder , chronic F43.12 and Memory change R41.3 [facility] [address] [address] Oct, Dental examination Z01.20 [facility] [address] [place] [address]- 7480 September, Bipolar II disorder F31.81 ; Post-traumatic stress disorder , chronic F43.12 and Memory change R41.3 [facility] [address], [place] [address]- 5941 Aug, Bipolar II disorder F31.81 and Post-traumatic stress disorder, chronic F43.12 [facility] [address] [place] [address]- 5278 Aug, Bipolar II disorder F31.81 and Post-traumatic stress disorder, chronic F43.12 [place] [id number] [place] 0713 Jul, Bipolar II disorder F31.81 and Post-traumatic stress disorder, chronic F43.12 [place] [id number] [place] [address]- 881 16 Jul, 2015 [place] [address] 870 Jul, [place] [id number] [place] [address] 06664- 5921 Jul, Post-traumatic stress disorder, chronic F43.12 and Bipolar disorder, unspecified F31.9 [place] [id number] [place] 1884 Jun, Bipolar II disorder F31.81 and Post-traumatic stress disorder, chronic F43.12 [place] [id number] [place] 6731 Jun, Post-traumatic stress disorder, chronic F43.12 and Bipolar disorder, unspecified F31.9 [place] [id number] [place]- 5223 Jun, [facility] [id number] [place] [address] 58119- 4944 Jun, Pharyngeal dysphagia R13.13 ; Hoarseness R49.0 and Cough R05 [facility] [id number] [place] [address] 26144- 2993 Jun, Post-traumatic stress disorder, chronic F43.12 and Bipolar disorder, unspecified F31.9 [facility] [facility] [id number] [place] [address]- 422 May, Cough R05 [place] [id number] [place] [address] 85540- 7494 May, Post-traumatic stress disorder, chronic F43.12 and Bipolar disorder, unspecified F31.9 [facility] [id number], [place] [phone] 22 May, 2015 Cough R05 [facility] [id number] [place] [phone] 16 May, 2015 [facility] [id number] [place] [id number] May, Dental examination Z01.20 [facility] [id number] [place] [phone] 15 May, 2015 Bipolar II disorder F31.81 and Post-traumatic stress disorder, chronic F43.12 [facility] [id number] [place] [phone] 14 May, 2015 [facility] [id number] [place] [address] 58959- 1112 14 May, 2015 Bipolar II disorder F31.81 and Anxiety disorder, unspecified F41.9 [facility] [id number] [place] [address] 10726- 0502 10 May, 2015 Memory change R41.3 and History of renal insufficiency syndrome Z87.448 [facility] [id number] [place] [address] 03111- 3066 May, Memory change R41.3 ; Dry mouth R68.2 and History of renal insufficiency syndrome Z87.448 [facility] [id number] [place] [address] 83092- 3651 May, Bipolar II disorder F31.81 and Post-traumatic stress disorder, chronic F43.12 [facility] [id number] [place] [address] 03649- 6238 Mar, Bipolar disorder, unspecified F31.9 and Generalized anxiety disorder F41.1 [facility] [id number] [place] [address] 90772- 5239 Mar, Bipolar II disorder F31.81 [facility] [id number] [place] [address] 56923- 8189 Mar, Encounter for immunization Z23 [facility] [id number] [place] [address] 18270- 5477 Mar, [facility] [id number] [place] [address] 17920- 9378 Mar, Bipolar II disorder F31.81 [facility] [id number] [place] [address] 18009- 7468 Mar, [facility] [id number] [place] [address] 22109- 2942 Jan, Bipolar disorder, unspecified 296.80 and Anxiety disorder 300.00 [facility] [id number] [place] [address] 78235- 6041 Jan, [facility] [id number] [place] [address] 57106- 6676 Jan, Bipolar disorder, unspecified 296.80 and Anxiety disorder 300.00 [facility] [id number] [place] [address] 80102- 3380 Dec, Bipolar disorder, unspecified 296.80 and Anxiety disorder 300.00 [facility] [id number] [place] [address] 80269- 2946 Dec, [facility] [id number] [place] [address] 36197- 3926 Dec, Bipolar disorder, unspecified 296.80 and Anxiety disorder 300.00 [facility] [id number] [place] [address] 03241- 2994 Nov, Bipolar disorder, unspecified 296.80 and Anxiety disorder 300.00 [facility] [id number] [place] [address] 11700- 0220 Oct, Bipolar disorder, unspecified 296.80 and Anxiety disorder 300.00 [facility] [id number] [place] [address] 68978- 8470 Oct, Anxiety 300.00 and Bipolar disorder, unspecified 296.80 [facility] [address] [address] September, Bipolar disorder, unspecified 296.80 and Anxiety disorder 300.00 [facility] [address] [place] [address]- 9756 September, [facility] [id number] [place] [address] 42599- 3699 Aug, Cough 786.2 [facility] [id number] [place] [address], [place] [address]- 9684 Aug, [facility] [id number] [place] [address], [place]- 5243 Aug, [facility] [id number] [address]55 Jul, [facility] [id number] [place] [address] 00726- 1760 Jul, [facility] [address] [address] 4833 Jul, [facility] [address] [place] [address] 1830 Jul, [facility] [address] [place] [address]- 6692 Jul, [facility] [address] [place] [address]- 6438 Jul, [facility] [address] 5354 Jun, [facility] [address] [place] [address]- 8438 Jun, [facility] [address] [place] [address]- 6226 Jun, [facility] [address] [place] [address]- 5025 Jun, [facility] [place] [facility] [address] [id number] [place] [address] May, [facility] [place] [facility] [address] [id number] [place] [address]- 1478 May, [facility] [place] [facility] [address] [facility] [id number] [place] [address]- 9080 May, [facility] [place] [facility] [address] [id number] [place] [address]- 9829 May, [facility] [place] [facility] [address] [id number] [place] 3736 Apr, [facility] [place] [facility] [address] [id number] [place] [address]- 8023 Apr, [facility] [place] [facility] [address] [id number] [place] [address]- 4519 Mar, [facility] [place] [facility] [address] [id number] [place] [address]- 1515 Mar, [facility] [place] [facility] [address] [id number] [place] [address]- 3871 Mar, [facility] [place] [facility] [address] [id number] [place] [address]- 5055 Mar, [facility] [place] [facility] [address] [id number], [place] [address]- 3191 Mar, [facility] [place] [facility] [address] [id number], [place] [address]- 4721 Mar, [facility] [place] [facility] [address] [id number] [place] [address]- 3090 Jan, [facility] [place] [facility] [address] [id number] [place] [address]- 6804 Jan, [facility] [place] [facility] [address] [id number] [place] [address]- 9057 Jan, [facility] [place] [facility] [address] [id number] [place] [address]- 1577 05 Jan, 2013 [facility] [place] [facility] [address] [id number] [place] [address]- 0724 Jan, [facility] [place] [facility] [address] [id number] [place] 0616 Jan, [facility] [place] [facility] [address] [id number] [place] [address]- 5480 Dec, [facility] [place] [facility] [address] [id number] [place] [address]- 7851 Dec, [facility] [place] [facility] [address] [id number] [place] [address]- 0583 Dec, [facility] [place] [facility] [address] [id number] [place] [address]- 8304 Dec, [facility] [place] [facility] [address] [id number] [place] [address]- 8353 Dec, [facility] [place] [facility] [address] [id number] [place] [address]- 4353 Dec, [facility] [place] [facility] [address] [id number] [place] [address]- 4881 Nov, [facility] [place] [facility] [address] [id number] [place] [address]- 5742 Nov, [facility] [place] [facility] [address] [id number] [place] [address]- 1358 Nov, [facility] [place] [facility] [address] [id number] [place] [address]- 2657 Nov, [facility] [place] [facility] [address] [id number] [place] [address]- 6390 Nov, [facility] [place] [facility] [address] [id number] [place] [address]- 2264 Nov, [facility] [place] [facility] [address] [id number] [place] [address]- 5382 Nov, [facility] [place] [facility] [address] [id number] [place] [address]- 7284 Nov, [facility] [place] [facility] [address] [id number] [place] [address]- 4761 Nov, [facility] [place] [facility] [address] [id number] [place] [address]- 6579 Nov, [facility] [place] [facility] [address] [id number] [place] [address]- 0333 September, [facility] [place] [facility] [address] [id number] [place] [address]- 5556 September, [facility] [place] [facility] [address] [id number] [place] [address]- 6283 September, [facility] [place] [facility] [address] [id number] [place] [address]- 8938 September, [facility] [place] [facility] [address] [id number] [place] [address]- 7998 September, [facility] [place] [facility] [address] [id number] [place] [address]- 9525 September, [facility] [place] [facility] [address] [id number] [place] [address]- 9476 September, [facility] [place] [facility] [address] [id number] [place] [address]- 3817 September, [facility] [place] [facility] [address] [id number] [place] [address]- 4535 Aug, [facility] [place] [facility] [address] [id number] [place] [address]- 2641 Aug, [facility] [place] [facility] [address] [id number] [place] [address]- 1325 Aug, [facility] [place] [facility] [address] [id number] [place] [address]- 0925 Aug, [facility] [place] [facility] [address] [id number] [place] [address]- 5982 Jul, [facility] [place] [facility] [address] [id number] [place] [address]- 1480 Jul, [facility] [place] [facility] [address] [id number] [place] [address]- 9136 Jul, [facility] [place] [facility] [address] [id number] [place] [address]- 1616 Jul, [facility] [place] [facility] [address] [id number] [place] [address]- 5928 18 Jul, 2013 [facility] [place] [facility] [address] [id number] [place] [address]- 0040 Jul, [facility] [place] [facility] [address] [id number] [place] [address]- 6616 Jul, [facility] [place] [facility] [address] [id number] [place] [address]- 4686 Jul, [facility] [place] [facility] [address] [id number] [place] [address]- 6043 Jul, [facility] [place] [facility] [address] [id number] [place] [address]- 5469 Jul, [facility] [place] [facility] [address] [facility] [id number] [place] [address]- 2507 Jul, [facility] [place] [facility] [address] [id number] [place] [address]- 5990 Jun, [facility] [place] [facility] [address] [id number] [place] [address]- 7018 Jun, [facility] [place] [facility] [address] [id number] [place] [address]- 4825 Jun, [facility] [place] [facility] [address] [id number] [place] [address]- 5636 Jun, [facility] [place] [facility] [address] [id number] [place] [address]- 9338 May, [facility] [place] [facility] [address] [id number] [place] [address]- 6616 May, [facility] [place] [facility] [address] [id number] [place] [address]- 1897 Apr, [facility] [place] [facility] [address] [id number], [place] [address]- 2095 Apr, [facility] [place] [facility] [address] [id number] [place] [address]- 6575 Apr, [facility] [place] [facility] [address] [id number] [place] [address]- 9818 Apr, [facility] [place] [facility] [address] [id number] [place] [address]- 7262 Apr, [facility] [place] [facility] [address] [id number] [place] [address]- 9597 Apr, [facility] [place] [facility] [address] [id number], [place] [address]- 2745 Apr, [facility] [place] [facility] [address] [id number], [place] [address]- 5711 Apr, [facility] [place] [facility] [address] [id number], [place] [address]- 6250 Apr, [facility] [place] [facility] [address] [id number], [place] [address]- 9408 Apr, [facility] [place] [facility] [address] [id number], [place] [address]- 9863 Apr, [facility] [place] [facility] [address] [id number], [place] [address]- 8085 Apr, [facility] [place] [facility] [address] [id number], [place] [address]- 8079 Mar, [facility] [place] [facility] [address] [id number], [place] [address]- 4939 Mar, [facility] [place] [facility] [address] [id number], [place] [address]- 2546 Mar, [facility] [id number] [address]- 3056 Dec, [facility] [id number] [address]- 6586 Dec, [facility] [id number], [place] [address]- 3306 Dec, [facility] [address] [place] [address]- 4876 Oct, [facility] [id number], [place] [address]- 9096 May, [facility] [address], [place] [address]- 6066 May, [facility] [id number] [address]- 2906 May, [facility] [id number], [place] [address]- 6306 Dec, IMMUNIZATIONS No Known Immunizations SOCIAL HISTORY Never Assessed REASON FOR VISIT Rash located mid and lower body including genital location. Bumps showed up 4 weeks ago that Frank ACEVEDO PLAN OF CARE Activity Details Follow Up prn Reason: VITAL SIGNS Height 66 in 2017-10-07 Weight 236.5 lbs 2017-10-07 Temperature 98.4 degrees Fahrenheit 2017-10-07 Heart Rate 84 bpm 2017-10-07 Respiratory Rate 20 2017-10-07 BMI 38.17 kg/m2 2017-10-07 Blood pressure systolic 132 mmHg 2017-10-07 Blood pressure diastolic 86 mmHg 2017-10-07 MEDICATIONS Medication Instructions Dosage Frequency Start Date End Date Duration Status Diclofenac Sodium 75 MG Orally Twice a day 1 tablet with food or milk 12h September, Oct, 30 day(s) Active Aspirin 81 MG Orally Once a day 1 tablet 24h Active Albuterol Sulfate 108 (90 Base) MCG/ACT Inhalation every 4-6 hrs 1 puff as needed May, Active Omeprazole 40 mg Orally Once a day 1 capsule 24h May, 90 days Active Calcium 600 MG Orally Once a day 1 tablet with meals 24h 30 days Active Abilify 30 MG Orally Once a day 1 tablet 24h 17 Nov, 2016 30 days Active Fish Oil 1000 MG Orally Once a day 2 capsule 24h Active Melatonin 5 MG 1 tablet at bedtime as needed with food Active Trazodone HCl 100 MG Orally at night as needed for sleep 1-2 tab Jun, 30 days Active Magnesium Active Advair Diskus 100-50 MCG/DOSE Inhalation Twice a day 1 puff 12h Active Triamcinolone Acetonide 0.1 % Externally Twice a day 1 application to affected area 12h Jul, 7 days Active Vitamin D 2000 UNIT Orally Once a day 1 tablet 24h Active Hydrochlorothiazide 12.5 MG Orally Once a day 1 capsule in the morning 24h Active Multivitamin Gummies Adult Active Linzess 145 MCG Orally Once a day 1 capsule 24h Jun, Mar, 90 days Active Cymbalta 60 MG Orally Once a day 1 Capsule 24h 30 days Active Premarin 0.9 MG Orally Once a day 1 tablet 24h Active PredniSONE 20 mg Orally Once a day 2 tabs 24h September, September, 05 days Active Loxapine Succinate 5 MG Orally at night 1 capsule Oct, 30 days Active RESULTS No Results PROCEDURES Procedure Date Ordered Result Body Site [facility] VISIT ESTABLISHED PATIENT October 07, 2017 INSTRUCTIONS MEDICATIONS ADMINISTERED No Known Medications [...] Hospitalization History [facility] 12/2014 Hospitalization History Obstructive Airway Disease, Mood disorder, cough-[facility] 07/02/15 Hospitalization History Bronchitis- [facility] 06/2016
--- OUTSIDE RECORDS SUMMARY | 2018-02-03 09:27 | XMS REPORT ---
Author Author KALEIGH OLIVER Organization [facility] Address [address] [place] [address] Care Team Providers Care Test Driller Name Role Phone KALEIGH OLIVER Unavailable PROBLEMS Type Condition ICD9-CM Code QJD51-DX Code Onset Dates Condition Status SNOMED Code Problem Slow transit constipation K59.01 Active 94062607 Problem Bipolar disorder, current episode mixed, mild F31.61 Active 282149528 Problem Chronic obstructive pulmonary disease, unspecified COPD type J44.9 Active 28339238 Problem Bipolar II disorder F31.81 Active 61535940 Problem Post-traumatic stress disorder, chronic F43.12 Active 29997435 Problem Bipolar affective disorder, currently manic, mild F31.11 Active 913124439 Problem Lumbago with sciatica, left side M54.42 Active 139664894 Problem Essential hypertension I10 Active 47829879 Problem Other chronic pain G89.29 Active 22792336 Problem Bipolar disorder, in partial remission, most recent episode mixed F31.77 Active 33815878 Problem Paresthesias R20.2 Active 76050212 Problem Irritable bowel syndrome with both constipation and diarrhea K58.2 Active 70446118 ALLERGIES No Information ENCOUNTERS Encounter Location Date Diagnosis [facility] [address], [place] [address] Jan, [facility] [id number] [place] [address] 80779- 8044 Jan, [facility] [id number] [place] [address] 25659- 9462 Jan, [facility] [id number] [place] [address] 06088- 0482 Dec, [facility] [id number] [place] [address] 20667- 5918 Nov, Bipolar II disorder F31.81 and Post-traumatic stress disorder, chronic F43.12 [facility] [id number] [place] [address] 51602- 7966 Nov, Essential hypertension I10 ; Lymph node enlargement R59.9 ; Paresthesias R20.2 ; Irritable bowel syndrome with both constipation and diarrhea K58.2 ; Lumbago with sciatica, left side M54.42 and Other chronic pain G89.29 [facility] [id number] [place] [address] 78482- 8720 Nov, Bipolar disorder, in partial remission, most recent episode mixed F31.77 [place] [id number] [place] [address] 67243- 5276 Oct, Bipolar disorder, in partial remission, most recent episode mixed F31.77 [facility] [id number] [place] [address] 70788 -4949 Oct, Scabies B86 [facility] [id number] [place] [address] 90882- 5559 Oct, Bipolar disorder, in partial remission, most recent episode mixed F31.77 [facility] [id number] [place] [address] 47084- 8021 Oct, [place] [id number] [place] [address] 69215- 7744 Oct, Bipolar II disorder F31.81 and Post-traumatic stress disorder, chronic F43.12 [facility] [id number] [place] [address] 75435 -9215 Oct, Scabies B86 [facility] [id number] [place] [address] 29823- 8792 Oct, [facility] [id number] [place] [address] 71366- 8396 September, Bipolar II disorder F31.81 and Post-traumatic stress disorder, chronic F43.12 [facility] [id number] [place] [address] 88139- 2651 September, Bipolar disorder, in partial remission, most recent episode mixed F31.77 [place] [id number] [place] [address] 75454- 5571 September, COPD exacerbation J44.1 and Elevated blood pressure reading R03.0 [place] [address] 45403- 8556 September, [place] [address] 67840- 7636 September, Pain in left ankle and joints of left foot M25.572 ; Dermatitis L30.9 and Other chronic pain G89.29 [place] [id number] [place] [address] 16910- 8513 Aug, Right elbow pain M25.521 and Elevated blood pressure reading R03.0 [place] [address] 97832- 2471 Aug, Bipolar disorder, current episode mixed, mild F31.61 and BMI 40.0-44.9, adult Z68.41 [place] [id number] [place] [address] 49922- 2197 Aug, [place] [id number] [place] [address] 58974- 5355 Aug, Bipolar II disorder F31.81 and Post-traumatic stress disorder, chronic F43.12 [place] [id number] [place] [address] 23615- 8910 Jul, Elevated blood pressure reading R03.0 [place] [address] 34571- 3373 Jul, Bipolar II disorder F31.81 and Post-traumatic stress disorder, chronic F43.12 [place] [id number] [place] [address] 59858- 4928 Jul, Bipolar disorder, current episode mixed, mild F31.61 [facility] [id number] [place] [address] 24550 -5431 12 Jul, 2017 Right foot pain M79.671 ; Allergic contact dermatitis, unspecified trigger L23.9 ; Contusion of right foot, initial encounter S90.31XA and BMI 40.0-44.9, adult Z68.41 [facility] [id number] [place] [address] 69445 -8443 Jul, 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 [place] [address] 38999- 7044 Jul, [address] 78615- 3502 15 Jul, 2017 Bipolar disorder, current episode mixed, mild F31.61 [place] [address] 81607- 7391 15 Jul, 2017 Bipolar II disorder F31.81 ; Post-traumatic stress disorder , chronic F43.12 and Memory change R41.3 [place] [id number] [place] [address] 05835- 7416 14 Jul, 2017 Elevated blood pressure reading R03.0 ; Chronic obstructive pulmonary disease, unspecified COPD type J44.9 ; Long-term use of high-risk medication Z79.899 and Cognitive decline R41.89 [place] [id number] [place] [address] 45415- 9412 06 Jul, 2017 Elevated blood pressure reading R03.0 [place] [id number] [place] [address] 55261- 3794 05 Jul, 2017 [place] [address] 90130- 5887 Jul, Bipolar II disorder F31.81 ; Post-traumatic stress disorder , chronic F43.12 and Memory change R41.3 [place] [id number] [place] [address] 67264- 5023 Jun, [place] [id number] [place] [address] 84562- 0435 Jun, Bipolar II disorder F31.81 ; Post-traumatic stress disorder , chronic F43.12 and Memory change R41.3 [place] [id number] [place] [address] 41988- 8863 Jun, Localized swelling, mass or lump of neck R22.1 ; Slow transit constipation K59.01 and Elevated blood pressure reading R03.0 [place] [id number] [place] [address] 25491- 7039 Jun, [place] [id number] [place] [address] 62573- 1299 Jun, Bipolar affective disorder, currently manic, mild F31.11 [facility] [place] [id number] [place] [address] 48991 -6072 15 May, 2017 [facility] [place] [id number] [place] [address] 61896 -4645 May, [place] [id number] [place] [address] 90859- 0016 May, Bipolar II disorder F31.81 ; Post-traumatic stress disorder , chronic F43.12 and Memory change R41.3 [place] [id number] [place] [address] 71599- 4395 May, [place] [id number] [place] [address] 23844- 8601 May, [place] [id number] [place] [address] 78849- 1373 05 May, 2017 Bipolar affective disorder, currently manic, mild F31.11 [place] [id number] [place] [address] 93004- 8329 May, [facility] [place] [id number] [place] [address] 02236 -9260 May, Localized swelling, mass or lump of neck R22.1 and Localized swelling, mass and lump, head R22.0 [facility] [id number] [place] [address] 66766- 2058 Apr, [facility] [id number] [place] [address] 60399- 8039 Apr, Bipolar affective disorder, currently manic, mild F31.11 [facility] [id number] [place] [address] 04379- 5666 Apr, Bipolar II disorder F31.81 [facility] [id number] [place] [address] 90443- 6790 Apr, [facility] [id number] [place] [address] 58477- 1152 Apr, Bipolar affective disorder, currently manic, mild F31.11 [facility] [id number] [place] [address] 25873- 4658 Apr, Actinic keratosis L57.0 [facility] [id number] [place] [address] 62274- 3548 Apr, Bipolar affective disorder, currently manic, mild F31.11 [facility] [id number] [place] [address] 23176- 3190 Apr, [facility] [id number] [place] [address] 30122 -8511 Mar, Allergic contact dermatitis, unspecified trigger L23.9 and Right leg pain M79.604 [facility] [id number] [place] [address] 51483- 2107 Mar, [facility] [address] 32750- 0409 Mar, Bipolar II disorder F31.81 ; Post-traumatic stress disorder , chronic F43.12 and Memory change R41.3 [facility] [id number] [place] [address] 44545- 9319 Mar, Actinic keratosis L57.0 [facility] [address], [place] [address]- 4677 Jan, Bipolar II disorder F31.81 ; Post-traumatic stress disorder , chronic F43.12 and Memory change R41.3 [facility] [address], [place] [address]- 5995 28 Jan, 2017 Bipolar affective disorder, currently manic, mild F31.11 [facility] [id number] [place] [address] 81587- 5278 13 Jan, 2017 Bipolar affective disorder, currently manic, mild F31.11 [facility] [id number] [place] [address] 42992- 5702 07 Jan, 2017 Bipolar II disorder F31.81 ; Post-traumatic stress disorder , chronic F43.12 and Memory change R41.3 [place] [id number] [place] [address] 79756- 1849 Dec, Bipolar II disorder F31.81 ; Post-traumatic stress disorder , chronic F43.12 and Memory change R41.3 [place] [id number] [place] [address] 91594- 4161 Dec, Bipolar affective disorder, currently manic, mild F31.11 [facility] [address], [place] [address]- 9137 Dec, Bipolar affective disorder, currently manic, mild F31.11 [facility] [address], [place] [address]- 4458 Dec, Post-traumatic stress disorder, chronic F43.12 [facility] [address], [place] [address]- 7546 Dec, Bipolar II disorder F31.81 ; Post-traumatic stress disorder , chronic F43.12 and Memory change R41.3 [facility] [id number] [place] [address] 53599- 4247 Dec, Post-traumatic stress disorder, chronic F43.12 [facility] [address], [place] [address]- 8734 Nov, [facility] [id number] [place] [address] 18756- 2557 Nov, Bipolar II disorder F31.81 ; Post-traumatic stress disorder , chronic F43.12 and Memory change R41.3 [facility] [id number] [place] [address] 10206- 2666 Nov, [facility] [id number] [place] [address] 08553- 3983 Nov, Post-traumatic stress disorder, chronic F43.12 and Bipolar II disorder F31.81 [facility] [id number] [place] [address] 54765- 0372 Nov, Actinic keratosis L57.0 [facility] [id number] [place] [address] 17597- 0281 Oct, Bipolar II disorder F31.81 ; Post-traumatic stress disorder , chronic F43.12 and Memory change R41.3 [facility] [id number] [place] [address] 73703- 3466 Oct, Post-traumatic stress disorder, chronic F43.12 ; Bipolar II disorder F31.81 and Memory change R41.3 [facility] [address], [place] [address]- 3105 Oct, Bipolar II disorder F31.81 ; Post-traumatic stress disorder , chronic F43.12 and Memory change R41.3 [facility] [address], [place] [address]- 3468 Oct, Actinic keratosis L57.0 [facility] [id number] [place] [address] 74856- 7898 September, Bipolar II disorder F31.81 ; Post-traumatic stress disorder , chronic F43.12 and Memory change R41.3 [place] [address], [place] [address]- 0213 September, Bipolar II disorder F31.81 ; Post-traumatic stress disorder , chronic F43.12 and Memory change R41.3 [place] [address], [place] [address]- 5504 September, Post-traumatic stress disorder, chronic F43.12 ; Bipolar II disorder F31.81 and Memory change R41.3 [place] [address], [place] [address]- 7343 Jul, Bipolar II disorder F31.81 ; Post-traumatic stress disorder , chronic F43.12 and Memory change R41.3 [place] [address], [place] [address]- 6525 Jul, Bipolar II disorder F31.81 ; Post-traumatic stress disorder , chronic F43.12 and Memory change R41.3 [place] [id number] [place] [address] 67072- 1973 Jul, Bipolar II disorder F31.81 ; Post-traumatic stress disorder , chronic F43.12 and Memory change R41.3 [place] [address] [place] [address] 11039- 1854 Jul, Post-traumatic stress disorder, chronic F43.12 ; Bipolar II disorder F31.81 and Memory change R41.3 [place] [id number] [place] [address] 56683- 7748 Jul, Tear of medial meniscus of right knee, unspecified tear type , unspecified whether old or current tear, initial encounter S83.241A [place] [id number] [place] [address]- 7399 Jul, Bipolar II disorder F31.81 ; Post-traumatic stress disorder , chronic F43.12 and Memory change R41.3 [place] [id number] [place] [address] 35833- 0714 Jul, Shortness of breath R06.02 ; Mixed hyperlipidemia E78.2 and Chronic fatigue R53.82 [place] [id number] [place] [address] 64244- 9422 07 Jul, 2016 Bipolar II disorder F31.81 ; Post-traumatic stress disorder , chronic F43.12 and Memory change R41.3 [place] [id number] [place] [address] 96203- 7564 Jul, [place] [address] 24491- 4706 Jun, Bipolar II disorder F31.81 ; Post-traumatic stress disorder , chronic F43.12 and Memory change R41.3 [place] [id number] [place] [address] 90543- 4033 Jun, Post-traumatic stress disorder, chronic F43.12 ; Bipolar II disorder F31.81 and Memory change R41.3 [place] [id number] [place] [address] 16479- 5785 Jun, Right anterior knee pain M25.561 ; Shortness of breath R06.02 and Bronchiolitis J21.9 [place] [id number] [place] [address] 82898- 0146 Jun, [place] [id number] [place] [address] 08391- 2325 Jun, Bipolar II disorder F31.81 ; Post-traumatic stress disorder , chronic F43.12 and Memory change R41.3 [place] [id number] [place] [address] 17228- 3373 Jun, [address] 28452- 0594 Jun, Bipolar II disorder F31.81 ; Post-traumatic stress disorder , chronic F43.12 and Memory change R41.3 [place] [id number] [place] [address] 32483- 3231 May, [facility] [address], [place] [address]- 9473 May, [facility] [address], [place] [address]- 6276 May, [facility] [address], [place] [address]- 7642 May, Right anterior knee pain M25.561 ; Cough R05 ; Skin lesion of right arm L98.9 and Lesion of skin of face L98.9 [facility] [address], [place] [address]- 9967 May, [facility] [id number] [place] [address] 88612- 6086 May, Post-traumatic stress disorder, chronic F43.12 ; Memory change R41.3 and Bipolar I disorder, most recent episode manic F31.10 [facility] [id number] [place] [address] 50622- 3657 May, [facility] [id number] [place] [address] 73845- 9859 May, Right anterior knee pain M25.561 [facility] [address], [place] [address]- 8286 May, [facility] [address], [place] [address]- 2307 Apr, Bipolar II disorder F31.81 ; Post-traumatic stress disorder , chronic F43.12 and Memory change R41.3 [facility] [address] [place] [id number] [address]- 3655 17 Apr, 2016 Bipolar II disorder F31.81 ; Post-traumatic stress disorder , chronic F43.12 and Memory change R41.3 [facility] [address] [id number], [place] [address]- 7799 09 Apr, 2016 Post-traumatic stress disorder, chronic F43.12 ; Bipolar II disorder F31.81 and Memory change R41.3 [place] [id number] [place] [address] 95876- 2123 Mar, Bipolar II disorder F31.81 ; Post-traumatic stress disorder , chronic F43.12 and Memory change R41.3 [place] [address] [place] [id number] [place] [address] 35218- 5144 Mar, Memory change R41.3 ; Confusion R41.0 and Dizziness R42 [place] [address] [place] [address] [id number] [place] [address] 41737- 2377 Mar, Memory change R41.3 ; Encounter for immunization Z23 and Fatigue, unspecified type R53.83 [place] [id number] [place] [address] 61756- 0126 Mar, Bipolar II disorder F31.81 ; Post-traumatic stress disorder , chronic F43.12 and Memory change R41.3 [place] [address] [place] [id number] [place] [address] 81266- 4345 Jan, Bipolar II disorder F31.81 ; Post-traumatic stress disorder , chronic F43.12 and Memory change R41.3 [place] [address] [place] [id number] [place] [address] 55332- 8612 Jan, Post-traumatic stress disorder, chronic F43.12 ; Bipolar II disorder F31.81 ; Anxiety disorder, unspecified F41.9 and Memory change R41.3 [place] [address] [place] [id number] [place] [address] 67120- 8078 15 Feb, 2016 Bipolar II disorder F31.81 ; Post-traumatic stress disorder , chronic F43.12 and Memory change R41.3 [place] [address] [id number] [place] [address] 33370- 2147 Dec, Bipolar II disorder F31.81 ; Post-traumatic stress disorder , chronic F43.12 and Memory change R41.3 [place] [address] [place] [id number] [place] [address] 48394- 0683 Dec, Memory loss R41.3 [facility] [address], [place] [address]- 7358 Dec, Bipolar II disorder F31.81 ; Post-traumatic stress disorder , chronic F43.12 and Memory change R41.3 [facility] [address], [place] [address]- 0751 Nov, Bipolar II disorder F31.81 and Post-traumatic stress disorder, chronic F43.12 [facility] [id number] [place] [address] 08422- 5261 Nov, Bipolar II disorder F31.81 ; Post-traumatic stress disorder , chronic F43.12 and Memory change R41.3 [facility] [id number] [place] [address] 21156- 0432 Oct, Post-traumatic stress disorder, chronic F43.12 and Bipolar disorder, unspecified F31.9 [facility] [id number] [place] [address] 30252- 7615 Oct, Bipolar II disorder F31.81 ; Post-traumatic stress disorder , chronic F43.12 and Memory change R41.3 [facility] [id number] [place] [address] [id number] Oct, Dental examination Z01.20 [facility] [id number] [place] [address] 24028- 6033 September, Bipolar II disorder F31.81 ; Post-traumatic stress disorder , chronic F43.12 and Memory change R41.3 [facility] [id number] [address] Aug, Bipolar II disorder F31.81 and Post-traumatic stress disorder, chronic F43.12 [facility] [address] [address] Aug, Bipolar II disorder F31.81 and Post-traumatic stress disorder, chronic F43.12 [facility] [id number] [place] [address] 62[address] Jul, Bipolar II disorder F31.81 and Post-traumatic stress disorder, chronic F43.12 [place] [id number] [place] [id number] [place] [address] Jul, [facility] [address] [address] [id number] [place] [address] [phone] Jul, [facility] [address] 547583[address] Jul, Post-traumatic stress disorder, chronic F43.12 and Bipolar disorder, unspecified F31.9 [place] [address] [place] [id number] [place] [address] Jun, Bipolar II disorder F31.81 and Post-traumatic stress disorder, chronic F43.12 [place] [address] [place] [id number] [place] [address] Jun, Post-traumatic stress disorder, chronic F43.12 and Bipolar disorder, unspecified F31.9 [place] [address] [place] [id number] [place] [address] 89[address]- [address] Jun, [place] [address] [place] [id number] [place] [address] Jun, Pharyngeal dysphagia R13.13 ; Hoarseness R49.0 and Cough R05 [place] [address] [place] [id number] [place] [address] 89872- 7988 Jun, Post-traumatic stress disorder, chronic F43.12 and Bipolar disorder, unspecified F31.9 [place] [address] [place] [id number] [place] [address]- [address] May, Cough R05 [place] [place] [id number] [place] [address] May, Post-traumatic stress disorder, chronic F43.12 and Bipolar disorder, unspecified F31.9 [place] [id number] [place], [place] [id number] May, Cough R05 [facility] [address], [place] [address] May, [facility] [address] [id number] May, Dental examination Z01.20 [facility] [id number] [place] [address] 34842- 0522 15 May, 2015 Bipolar II disorder F31.81 and Post-traumatic stress disorder, chronic F43.12 [facility] [id number] [place] [address] 86526- 7520 May, [facility] [id number] [place] [address] 21962- 4084 14 May, 2015 Bipolar II disorder F31.81 and Anxiety disorder, unspecified F41.9 [place] [id number] [place] [address] 05699- 0219 10 May, 2015 Memory change R41.3 and History of renal insufficiency syndrome Z87.448 [facility] [id number] [place] [address] 86896- 9521 03 May, 2015 Memory change R41.3 ; Dry mouth R68.2 and History of renal insufficiency syndrome Z87.448 [facility] [address], [place] [address] May, Bipolar II disorder F31.81 and Post-traumatic stress disorder, chronic F43.12 [facility] [id number] [place] [address] 09469- 6554 Mar, Bipolar disorder, unspecified F31.9 and Generalized anxiety disorder F41.1 [facility] [id number] [place] [address] 30429- 2952 Mar, Bipolar II disorder F31.81 [facility] [address], [place] [address] 0970 Mar, Encounter for immunization Z23 [facility] [id number] [address] 7228 Mar, [facility] [id number] [place] [address] 92569- 8899 Mar, Bipolar II disorder F31.81 [facility] [id number] [place] [address] 139212- 2341 Mar, [facility] [id number] [place] [address] 67768- 3282 Jan, Bipolar disorder, unspecified 296.80 and Anxiety disorder 300.00 [facility] [id number] [place] [address] 29413- 5212 Jan, [facility] [id number] [place] [address] 34736- 6243 Jan, Bipolar disorder, unspecified 296.80 and Anxiety disorder 300.00 [facility] [id number] [place] [address] 45426- 7887 Dec, Bipolar disorder, unspecified 296.80 and Anxiety disorder 300.00 [facility] [id number] [place] [address] 89059- 7605 Dec, [facility] [id number] [place] [address] 23632- 3904 Dec, Bipolar disorder, unspecified 296.80 and Anxiety disorder 300.00 [facility] [id number] [place] [address] 82192- 0844 Nov, Bipolar disorder, unspecified 296.80 and Anxiety disorder 300.00 [facility] [address], [place] [address] 2986 Oct, Bipolar disorder, unspecified 296.80 and Anxiety disorder 300.00 [facility] [id number] [place] [address] 92691- 1993 Oct, Anxiety 300.00 and Bipolar disorder, unspecified 296.80 [facility] [id number] [place] [address] 22654- 2262 September, Bipolar disorder, unspecified 296.80 and Anxiety disorder 300.00 [facility] [id number] [address] September, [facility] [id number] [place] [address] 8462 Aug, Cough 786.2 [facility] [id number] [place] [address], [place] [address]- 3640 Aug, [facility] [id number] [place] [address]- 7372 Aug, [facility] [id number] [place] [address], [place] Jul, [facility] [id number] [place] [address]- 6915 Jul, [facility] [id number] [place] [address], [place] [address]- 6743 Jul, [facility] [address], [place] [address]- 6581 Jul, [facility] [address], [place] [address]- 5139 Jul, [facility] [address], [place] [address]- 7257 Jul, [facility] [address], [place] [address]- 1356 Jun, [facility] [id number] 1524 Jun, [facility] [address], [place] [address]- 3988 Jun, [facility] [id number] 7102 Jun, [facility] [address], [place] [address]- 3725 May, [facility] [place] [facility] [address] [id number] [place] [address] May, [facility] [place] [facility] [address] [id number] [place] [address]- 7553 May, [facility] [place] [facility] [address] [facility] [id number] [place] [address]- 2152 May, [facility] [place] [facility] [address] [id number] [place] [address]- 6547 Apr, [facility] [place] [facility] [address] [id number] [place] 0018 Apr, [facility] [place] [facility] [address] [id number] [place] [address]- 1727 Mar, [facility] [place] [facility] [address] [id number] [place] [address]- 1966 Mar, [facility] [place] [facility] [address] [id number] [place] [address]- 1318 Mar, [facility] [place] [facility] [address] [id number] [place] [address]- 3416 Mar, [facility] [place] [facility] [address] [id number] [place] [address]- 2950 Mar, [facility] [place] [facility] [address] [id number], [place] [address]- 4421 Mar, [facility] [place] [facility] [address] [id number], [place] [address]- 0910 Jan, [facility] [place] [facility] [address] [id number] [place] [address]- 6983 Jan, [facility] [place] [facility] [address] [facility] [id number] [place] 3783 Jan, [facility] [place] [facility] [address] [id number] [place] 8683 Jan, [facility] [place] [facility] [address] [id number] [place] [address]- 5531 Jan, [facility] [place] [facility] [address] [id number] [place] [address]- 2970 Jan, [facility] [place] [facility] [address] [id number] [place] [address]- 5879 Dec, [facility] [place] [facility] [address] [id number] [place] [address]- 9917 Dec, [facility] [place] [facility] [address] [id number] [place] [address]- 5165 Dec, [facility] [place] [facility] [address] [id number] [place] [address]- 0764 Dec, [facility] [place] [facility] [address] [id number] [place] [address]- 9493 Dec, [facility] [place] [facility] [address] [id number] [place] [address]- 1291 Dec, [facility] [place] [facility] [address] [id number] [place] [address]- 2031 Nov, [facility] [place] [facility] [address] [id number] [place] [address]- 0036 Nov, [facility] [place] [facility] [address] [id number] [place] [address]- 6747 Nov, [facility] [place] [facility] [address] [id number] [place] [address]- 2826 Nov, [facility] [place] [facility] [address] [id number] [place] [address]- 1049 Nov, [facility] [place] [facility] [address] [id number] [place] [address]- 6285 Nov, [facility] [place] [facility] [address] [id number] [place] [address]- 5689 Nov, [facility] [place] [facility] [address] [id number] [place] [address]- 7448 Nov, [facility] [place] [facility] [address] [id number] [place] [address]- 9618 Nov, [facility] [place] [facility] [address] [id number] [place] [address]- 5964 Nov, [facility] [place] [facility] [address] [id number] [place] [address]- 0354 September, [facility] [place] [facility] [address] [id number] [place] [address]- 8345 September, [facility] [place] [facility] [address] [id number] [place] [address]- 2140 September, [facility] [place] [facility] [address] [id number] [place] [address]- 9286 September, [facility] [place] [facility] [address] [id number] [place] [address]- 4664 September, [facility] [place] [facility] [address] [id number] [place] [address]- 4168 September, [facility] [place] [facility] [address] [id number] [place] [address]- 4028 September, [facility] [place] [facility] [address] [id number] [place] [address]- 2860 September, [facility] [place] [facility] [address] [id number] [place] [address]- 1158 Aug, [facility] [place] [facility] [address] [id number] [place] [address]- 7379 Aug, [facility] [place] [facility] [address] [id number] [place] [address]- 7993 Aug, [facility] [place] [facility] [address] [id number] [place] [address]- 5622 Aug, [facility] [place] [facility] [address] [id number] [place] [address]- 6957 Jul, [facility] [place] [facility] [address] [id number] [place] [address]- 1043 Jul, [facility] [place] [facility] [address] [id number] [place] [address]- 1136 Jul, [facility] [place] [facility] [address] [id number] [place] [address]- 9926 Jul, [facility] [place] [facility] [address] [id number] [place] [address]- 9576 Jul, [facility] [place] [facility] [address] [id number] [place] [address]- 1865 Jul, [facility] [place] [facility] [address] [id number] [place] 2126 Jul, [facility] [place] [facility] [address] [id number] [place] [address]- 9730 Jul, [facility] [place] [facility] [address] [facility] [id number] [place] [address]- 5263 Jul, [facility] [place] [facility] [address] [id number] [place] [address]- 4583 Jul, [facility] [place] [facility] [address] [id number] [place] [address]- 6164 Jul, [facility] [place] [facility] [address] [facility] [id number] [place] [address]- 9894 Jun, [facility] [place] [facility] [address] [id number] [place] [address]- 5017 Jun, [facility] [place] [facility] [address] [id number] [place] [address]- 2484 Jun, [facility] [place] [facility] [address] [id number] [place] 1350 Jun, [facility] [place] [facility] [address] [facility] [id number] [place] [address]- 8084 May, [facility] [place] [facility] [address] [id number] [place] [address]- 2897 May, [facility] [place] [facility] [address] [id number] [place] [address]- 9327 Apr, [facility] [place] [facility] [address] [id number] [place] [address]- 0763 Apr, [facility] [place] [facility] [address] [id number], [place] [address]- 3124 Apr, [facility] [place] [facility] [address] [id number] [place] [address]- 5275 Apr, [facility] [place] [facility] [address] [id number] [place] [address]- 7791 Apr, [facility] [place] [facility] [address] [id number] [place] [address]- 3060 Apr, [facility] [place] [facility] [address] [id number] [place] [address]- 9762 Apr, [facility] [place] [facility] [address] [id number], [place] [address]- 5310 Apr, [facility] [place] [facility] [address] [id number], [place] [address]- 3588 Apr, [facility] [place] [facility] [address] [id number], [place] [address]- 1304 Apr, [facility] [place] [facility] [address] [id number], [place] [address]- 2943 Apr, [facility] [place] [facility] [address] [id number], [place] [address]- 9849 Apr, [facility] [place] [facility] [address] [id number], [place] [address]- 1197 Mar, [facility] [place] [facility] [address] [id number], [place] [address]- 2889 Mar, [facility] [place] [facility] [address] [facility] [id number], [place] [address]- 4568 Mar, [facility] [place] [facility] [address] [id number], [place] [address]- 0344 Dec, [facility] [id number], [place] [address]- 3795 Dec, [facility] [id number] 5490 Dec, [facility] [id number], [place] [address]- 8389 Oct, [facility] [id number], [place] [address]- 6629 May, [facility] [id number], [place] [address]- 6122 May, [facility] [id number] 0856 May, [facility] [id number], [place] [address]- 9119 Dec, IMMUNIZATIONS No Known Immunizations SOCIAL HISTORY Never Assessed REASON FOR VISIT PLAN OF CARE VITAL SIGNS MEDICATIONS Medication Instructions Dosage Frequency Start Date End Date Duration Status Diclofenac Sodium 75 MG Orally Twice a day 1 tablet with food or milk 12h September, Oct, 30 day(s) Active PredniSONE 20 mg Orally Once a day 2 tabs 24h September, September, 05 days Active RESULTS No Results PROCEDURES No [...] Hospitalization History [facility] 12/2014 Hospitalization History Obstructive Airway Disease, Mood disorder, cough-[facility] 07/02/15 Hospitalization History Bronchitis- [facility] 06/2016
--- OUTSIDE RECORDS SUMMARY | 2018-02-03 09:28 | XMS REPORT ---
Author Author NANCY Alicea [facility] Address [address] [place] [address] Care Team Providers Care Parts Driver Name Role Phone NANCY Alicea Unavailable PROBLEMS Type Condition ICD9-CM Code BLP29-IR Code Onset Dates Condition Status SNOMED Code Problem Confusion R41.0 Active 459802947 Problem Mixed hyperlipidemia E78.2 Active 150015380 Problem Dizziness R42 Active 982336541 Problem Other chronic pain G89.29 Active 61890167 Problem Bipolar disorder, current episode mixed, mild F31.61 Active 914286333 Problem Bipolar affective disorder, currently manic, mild F31.11 Active 166031720 Problem Chronic fatigue R53.82 Active 27666648 Problem Chronic obstructive pulmonary disease, unspecified COPD type J44.9 Active 60967228 Problem Slow transit constipation K59.01 Active 81712459 Problem Post-traumatic stress disorder, chronic F43.12 Active 06292272 Problem Memory change R41.3 Active 950818446 Problem History of renal insufficiency syndrome Z87.448 Active 804418783 Problem Bipolar II disorder F31.81 Active 40003675 Problem Pharyngeal dysphagia R13.13 Active [id number] ALLERGIES No Information ENCOUNTERS Encounter Location Date Diagnosis [facility] [address] [place] [address] 47487- 6818 Oct, [facility] [place] [address] [address]181 Oct, [facility] [place] [id number] [place] [address] 75292- 5475 Oct, [facility] [place] [address] [place] [address] 65550- 5625 September, [facility] [place] [id number] [place] [address] 35104- 6195 September, [place] [id number] [place] [address] 05192- 3129 September, Pain in left ankle and joints of left foot M25.572 ; Dermatitis L30.9 and Other chronic pain G89.29 [place] [address] 04103- 9542 Aug, Right elbow pain M25.521 and Elevated blood pressure reading R03.0 [place] [address] 92433- 1820 Aug, Bipolar disorder, current episode mixed, mild F31.61 and BMI 40.0-44.9, adult Z68.41 [place] [address] 46721- 0559 Aug, [place] [address] 22721- 5450 Aug, Bipolar II disorder F31.81 and Post-traumatic stress disorder, chronic F43.12 [place] [address] 21518- 4153 Jul, Elevated blood pressure reading R03.0 [place] [address] 00275- 5678 Jul, Bipolar II disorder F31.81 and Post-traumatic stress disorder, chronic F43.12 [place] [id number] [place] [address] 82282- 4032 Jul, Bipolar disorder, current episode mixed, mild F31.61 [facility] [address] 71476 -0032 Jul, Right foot pain M79.671 ; Allergic contact dermatitis, unspecified trigger L23.9 ; Contusion of right foot, initial encounter S90.31XA and BMI 40.0-44.9, adult Z68.41 [facility] [address] 95289 -3788 Jul, 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 [place] [id number] [place] [address] 43494- 4030 22 Jul, 2017 [place] [id number] [place] [address] 81781- 3422 15 Jul, 2017 Bipolar disorder, current episode mixed, mild F31.61 [place] [address] 13256- 3742 15 Jul, 2017 Bipolar II disorder F31.81 ; Post-traumatic stress disorder , chronic F43.12 and Memory change R41.3 [place] [id number] [place] [address] 91483- 9587 14 Jul, 2017 Elevated blood pressure reading R03.0 ; Chronic obstructive pulmonary disease, unspecified COPD type J44.9 ; Long-term use of high-risk medication Z79.899 and Cognitive decline R41.89 [place] [id number] [place] [address] 64023- 6675 06 Jul, 2017 Elevated blood pressure reading R03.0 [place] [id number] [place] [address] 05369- 9912 05 Jul, 2017 [place] [id number] [place] [address] 13680- 2468 01 Jul, 2017 Bipolar II disorder F31.81 ; Post-traumatic stress disorder , chronic F43.12 and Memory change R41.3 [place] [id number] [place] [address] 79065- 4099 Jun, [place] [id number] [place] [address] 85548- 3551 Jun, Bipolar II disorder F31.81 ; Post-traumatic stress disorder , chronic F43.12 and Memory change R41.3 [place] [id number] [place] [address] 27192- 7665 Jun, Localized swelling, mass or lump of neck R22.1 ; Slow transit constipation K59.01 and Elevated blood pressure reading R03.0 [place] [id number] [place] [address] 74972- 5665 Jun, [place] [id number] [place] [address] 45713- 2299 Jun, Bipolar affective disorder, currently manic, mild F31.11 [facility] [id number] [place] [address] 70636 -3246 May, [facility] [place] [id number] [place] [address] 84565 -1243 May, [place] [address] 79311- 9734 May, Bipolar II disorder F31.81 ; Post-traumatic stress disorder , chronic F43.12 and Memory change R41.3 [place] [id number] [place] [address] 89666- 8556 May, [place] [id number] [place] [address] 29045- 7217 May, [place] [id number] [place] [address] 31389- 4382 May, Bipolar affective disorder, currently manic, mild F31.11 [place] [id number] [place] [address] 67498- 2998 May, [facility] [place] [id number] [place] [address] 97594 -2653 May, Localized swelling, mass or lump of neck R22.1 and Localized swelling, mass and lump, head R22.0 [place] [id number] [place] [address] 14116- 6445 Apr, [place] [id number] [place] [address] 24675- 3382 Apr, Bipolar affective disorder, currently manic, mild F31.11 [facility] [place] [address] [place] [address] 16063- 4632 07 Apr, 2017 Bipolar II disorder F31.81 [facility] [place] [id number] [place] [address] 84753- 4445 Apr, [facility] [place] [id number] [place] [address] 06392- 2554 Apr, Bipolar affective disorder, currently manic, mild F31.11 [facility] [place] [id number] [place] [address] 29565- 8255 Apr, Actinic keratosis L57.0 [facility] [place] [id number] [place] [address] 127445- 7413 Apr, Bipolar affective disorder, currently manic, mild F31.11 [facility] [place] [id number] [place] [address] 31152- 8487 Apr, [facility] [id number] [place] [address] 04374 -8314 Mar, Allergic contact dermatitis, unspecified trigger L23.9 and Right leg pain M79.604 [facility] [place] [id number] [place] [address] 13682- 5071 Mar, [facility] [place] [id number] [place] [address] 13360- 5823 Mar, Bipolar II disorder F31.81 ; Post-traumatic stress disorder , chronic F43.12 and Memory change R41.3 [facility] [place] [address] [place] [address] 34192- 0126 Mar, Actinic keratosis L57.0 [facility] [place] [id number] [place] [address] 13607- 4438 Jan, Bipolar II disorder F31.81 ; Post-traumatic stress disorder , chronic F43.12 and Memory change R41.3 [facility] [place] [id number] [place] [address] 65297- 0152 28 Jan, 2017 Bipolar affective disorder, currently manic, mild F31.11 [facility] [place] [address] [facility] [id number] [address] 00[address] 13 Jan, 2017 Bipolar affective disorder, currently manic, mild F31.11 [facility] [place] [address] [facility] [id number] [address]- 7956 07 Jan, 2017 Bipolar II disorder F31.81 ; Post-traumatic stress disorder , chronic F43.12 and Memory change R41.3 [facility] [place] [address] [facility] [id number] [place] [address] 79516- 9803 Dec, Bipolar II disorder F31.81 ; Post-traumatic stress disorder , chronic F43.12 and Memory change R41.3 [facility] [place] [address] [facility] [id number] [address]- 2903 Dec, Bipolar affective disorder, currently manic, mild F31.11 [facility] [place] [address] [facility] [id number] [place] [address] 55757- 0279 Dec, Bipolar affective disorder, currently manic, mild F31.11 [facility] [place] [address] [place] [id number] [place] [address] 83818- 3066 Dec, Post-traumatic stress disorder, chronic F43.12 [facility] [place] [id number] [address]- 2342 Dec, Bipolar II disorder F31.81 ; Post-traumatic stress disorder , chronic F43.12 and Memory change R41.3 [facility] [place] [address] [facility] [id number] [address]- 9500 Dec, Post-traumatic stress disorder, chronic F43.12 [facility] [place] [id number] [address]- 7107 Nov, [facility] [place] [address] [facility] [id number] [address]- 7622 Nov, Bipolar II disorder F31.81 ; Post-traumatic stress disorder , chronic F43.12 and Memory change R41.3 [facility] [place] [address] [address]- 0855 Nov, [facility] [place] [address] [address]- 6186 Nov, Post-traumatic stress disorder, chronic F43.12 and Bipolar II disorder F31.81 [facility] [place] [address] [address]- 2406 Nov, Actinic keratosis L57.0 [facility] [place] [address] [address]- 1469 Oct, Bipolar II disorder F31.81 ; Post-traumatic stress disorder , chronic F43.12 and Memory change R41.3 [place] [address] [address]- 2522 Oct, Post-traumatic stress disorder, chronic F43.12 ; Bipolar II disorder F31.81 and Memory change R41.3 [place] [address] [address]- 9286 Oct, Bipolar II disorder F31.81 ; Post-traumatic stress disorder , chronic F43.12 and Memory change R41.3 [facility] [place] [address] [address]- 7200 Oct, Actinic keratosis L57.0 [facility] [place] [address] [address]- 1982 September, Bipolar II disorder F31.81 ; Post-traumatic stress disorder , chronic F43.12 and Memory change R41.3 [facility] [place] [id number] [address]- 3511 September, Bipolar II disorder F31.81 ; Post-traumatic stress disorder , chronic F43.12 and Memory change R41.3 [facility] [place] [address] [address]- 4403 September, Post-traumatic stress disorder, chronic F43.12 ; Bipolar II disorder F31.81 and Memory change R41.3 [place] [address] [address]- 9706 Jul, Bipolar II disorder F31.81 ; Post-traumatic stress disorder , chronic F43.12 and Memory change R41.3 [place] [address] [address]- 8567 Jul, Bipolar II disorder F31.81 ; Post-traumatic stress disorder , chronic F43.12 and Memory change R41.3 [place] [address] [place] [address] 33878- 5675 Jul, Bipolar II disorder F31.81 ; Post-traumatic stress disorder , chronic F43.12 and Memory change R41.3 [place] [address] [id number] [place] [address] 64029- 3282 Jul, Post-traumatic stress disorder, chronic F43.12 ; Bipolar II disorder F31.81 and Memory change R41.3 [place] [address] [address]- 1391 Jul, Tear of medial meniscus of right knee, unspecified tear type , unspecified whether old or current tear, initial encounter S83.241A [place] [address] [place] [address] 60237- 2079 Jul, Bipolar II disorder F31.81 ; Post-traumatic stress disorder , chronic F43.12 and Memory change R41.3 [place] [address] [address]- 9557 Jul, Shortness of breath R06.02 ; Mixed hyperlipidemia E78.2 and Chronic fatigue R53.82 [place] [id number] [place] [address] 99669- 3557 07 Jul, 2016 Bipolar II disorder F31.81 ; Post-traumatic stress disorder , chronic F43.12 and Memory change R41.3 [place] [address] [id number] [place] [address] 75436- 2905 Jul, [facility] [place] [address] [place] [address] 22188- 4737 Jun, Bipolar II disorder F31.81 ; Post-traumatic stress disorder , chronic F43.12 and Memory change R41.3 [facility] [place] [address] [address]- 4114 Jun, Post-traumatic stress disorder, chronic F43.12 ; Bipolar II disorder F31.81 and Memory change R41.3 [facility] [place] [address] [place] [address] 23164- 5036 Jun, Right anterior knee pain M25.561 ; Shortness of breath R06.02 and Bronchiolitis J21.9 [facility] [place] [address] [place] [address] 42621- 0472 Jun, [facility] [place] [id number] [place] [address] 02217- 4491 Jun, Bipolar II disorder F31.81 ; Post-traumatic stress disorder , chronic F43.12 and Memory change R41.3 [facility] [place] [address] [place] [address] 39124- 9738 Jun, [facility] [place] [address] [place] [address] 56005- 4330 Jun, Bipolar II disorder F31.81 ; Post-traumatic stress disorder , chronic F43.12 and Memory change R41.3 [facility] [place] [address] [address]- 1071 May, [facility] [place] [id number] [place] [address] 06483- 4986 May, [facility] [place] [id number] [place] [address] 29883- 3843 May, [facility] [address] [address]- 8786 May, Right anterior knee pain M25.561 ; Cough R05 ; Skin lesion of right arm L98.9 and Lesion of skin of face L98.9 [facility] [place] [id number] [place] [address] 11666- 6341 May, [facility] [place] [id number] [place] [address] 71586- 8812 May, Post-traumatic stress disorder, chronic F43.12 ; Memory change R41.3 and Bipolar I disorder, most recent episode manic F31.10 [place] [id number] [place] [address] 19119- 4647 May, [place] [id number] [place] [address] 05827- 6972 May, Right anterior knee pain M25.561 [place] [address] [id number] [place] [address] 26051- 9126 May, [place] [id number] [place] [address] 90173- 9744 Apr, Bipolar II disorder F31.81 ; Post-traumatic stress disorder , chronic F43.12 and Memory change R41.3 [place] [id number] [place] [address] 17594- 4469 Apr, Bipolar II disorder F31.81 ; Post-traumatic stress disorder , chronic F43.12 and Memory change R41.3 [place] [address] [place] [address] 48947- 8705 Apr, Post-traumatic stress disorder, chronic F43.12 ; Bipolar II disorder F31.81 and Memory change R41.3 [place] [id number] [place] [address] 08788- 4360 Mar, Bipolar II disorder F31.81 ; Post-traumatic stress disorder , chronic F43.12 and Memory change R41.3 [place] [address] [place] [address] 03685- 2202 Mar, Memory change R41.3 ; Confusion R41.0 and Dizziness R42 [place] [address] [address]- 5307 05 Mar, 2016 Memory change R41.3 ; Encounter for immunization Z23 and Fatigue, unspecified type R53.83 [place] [address] [address]- 0924 Mar, Bipolar II disorder F31.81 ; Post-traumatic stress disorder , chronic F43.12 and Memory change R41.3 [place] [address] [id number] [place] [address] 40323- 0820 Jan, Bipolar II disorder F31.81 ; Post-traumatic stress disorder , chronic F43.12 and Memory change R41.3 [place] [id number] [place] [address] 08916- 8346 19 Feb, 2016 Post-traumatic stress disorder, chronic F43.12 ; Bipolar II disorder F31.81 ; Anxiety disorder, unspecified F41.9 and Memory change R41.3 [place] [address] [place] [address] 12816- 6516 15 Feb, 2016 Bipolar II disorder F31.81 ; Post-traumatic stress disorder , chronic F43.12 and Memory change R41.3 [place] [address] [place] [address] 64164- 9183 Dec, Bipolar II disorder F31.81 ; Post-traumatic stress disorder , chronic F43.12 and Memory change R41.3 [place] [address] [place] [address] 43857- 3809 Dec, Memory loss R41.3 [place] [address] [place] [id number] [place] [address] 77300- 7476 Dec, Bipolar II disorder F31.81 ; Post-traumatic stress disorder , chronic F43.12 and Memory change R41.3 [place] [address] [address]- 2793 Nov, Bipolar II disorder F31.81 and Post-traumatic stress disorder, chronic F43.12 [facility] [address] [address]- 2167 Nov, Bipolar II disorder F31.81 ; Post-traumatic stress disorder , chronic F43.12 and Memory change R41.3 [facility] [place] [address] [address]- 3104 Oct, Post-traumatic stress disorder, chronic F43.12 and Bipolar disorder, unspecified F31.9 [facility] [address] [place] [address] 21163- 2941 Oct, Bipolar II disorder F31.81 ; Post-traumatic stress disorder , chronic F43.12 and Memory change R41.3 [facility] [address] [id number] Oct, Dental examination Z01.20 [facility] [id number] [place] [address] 07803- 9237 September, Bipolar II disorder F31.81 ; Post-traumatic stress disorder , chronic F43.12 and Memory change R41.3 [facility] [address] [place] [address] 94805- 9858 Aug, Bipolar II disorder F31.81 and Post-traumatic stress disorder, chronic F43.12 [facility] [address] [address]- 4848 Aug, Bipolar II disorder F31.81 and Post-traumatic stress disorder, chronic F43.12 [facility] [address] [address]- 2695 Jul, Bipolar II disorder F31.81 and Post-traumatic stress disorder, chronic F43.12 [facility] [address] [place] [address] 93990- 0283 Jul, [facility] [place] [address] [address]- 7422 Jul, [facility] [place] [id number] [place] [address] 32300- 6756 15 Jul, 2015 Post-traumatic stress disorder, chronic F43.12 and Bipolar disorder, unspecified F31.9 [facility] [id number] [place], [place] [address] Jun, Bipolar II disorder F31.81 and Post-traumatic stress disorder, chronic F43.12 [address] [place] [address] Jun, Post-traumatic stress disorder, chronic F43.12 and Bipolar disorder, unspecified F31.9 [address] 629 Jun, [address] [place] [id number] Jun, Pharyngeal dysphagia R13.13 ; Hoarseness R49.0 and Cough R05 [address] [id number] [place] [address] Jun, Post-traumatic stress disorder, chronic F43.12 and Bipolar disorder, unspecified F31.9 [facility] [place] [id number] [place] [address] May, Cough R05 [address] [address] May, Post-traumatic stress disorder, chronic F43.12 and Bipolar disorder, unspecified F31.9 [address] [place] [id number] [place] [address] May, Cough R05 [facility] [place] [address] [address] May, [facility] [id number] [place] [id number] May, Dental examination Z01.20 [address] [address] May, Bipolar II disorder F31.81 and Post-traumatic stress disorder, chronic F43.12 [facility] [place] [id number] [place] [address] May, [facility] [place] [address] [address] May, Bipolar II disorder F31.81 and Anxiety disorder, unspecified F41.9 [facility] [place] [address] [address] May, Memory change R41.3 and History of renal insufficiency syndrome Z87.448 [facility] [place] [address] [address] May, Memory change R41.3 ; Dry mouth R68.2 and History of renal insufficiency syndrome Z87.448 [place] [address] [address]- [address] May, Bipolar II disorder F31.81 and Post-traumatic stress disorder, chronic F43.12 [facility] [id number] [place] [address] 30347- 6364 Mar, Bipolar disorder, unspecified F31.9 and Generalized anxiety disorder F41.1 [place] [address] [place] [id number] [place] [address] 50448- 7994 Mar, Bipolar II disorder F31.81 [facility] [place] [id number] [place] [address] 27142- 3603 Mar, Encounter for immunization Z23 [facility] [place] [id number] [place] [address] 68608- 1570 Mar, [facility] [place] [address] [address]- [address]798 Mar, Bipolar II disorder F31.81 [facility] [place] [id number] [place] [address] 16390- 9780 Mar, [facility] [address] [place] [address] Jan, Bipolar disorder, unspecified 296.80 and Anxiety disorder 300.00 [facility] [place] [id number] [place] [address] 00865- 0653 Jan, [facility] [place] [id number] [place] [address] 97201- 4991 Jan, Bipolar disorder, unspecified 296.80 and Anxiety disorder 300.00 [facility] [place] [id number] [place] [address] 05739- 3942 Dec, Bipolar disorder, unspecified 296.80 and Anxiety disorder 300.00 [facility] [place] [id number] [place] [address] 65910- 1215 Dec, [facility] [place] [id number] [place] [address] 37646- 2138 Dec, Bipolar disorder, unspecified 296.80 and Anxiety disorder 300.00 [facility] [place] [id number] [place] [address] 56067- 2036 Nov, Bipolar disorder, unspecified 296.80 and Anxiety disorder 300.00 [facility] [place] [id number] [place] [address] 87418- 3245 Oct, Bipolar disorder, unspecified 296.80 and Anxiety disorder 300.00 [facility] [place] [id number] [place] [address] 48865- 9930 Oct, Anxiety 300.00 and Bipolar disorder, unspecified 296.80 [facility] [place] [id number] [place] [address] 18428- 9413 September, Bipolar disorder, unspecified 296.80 and Anxiety disorder 300.00 [facility] [place] [id number] [place] [address] 68406- 7573 September, [facility] [place] [id number] [place] [address] 81277- 6821 Aug, Cough 786.2 [facility] [place] [address] [place] [address] 14 Aug, 2014 [facility] [place] [facility] [address] [id number] [place] [address]- 4244 Aug, [facility] [place] [facility] [address] [id number] [place] [address]- 6479 Jul, [facility] [place] [facility] [address] [id number] [place] [address]- 6640 Jul, [facility] [place] [facility] [address] [id number] [place] [address]- 8259 Jul, [facility] [place] [facility] [address] [id number] [place] [address]- 6931 Jul, [facility] [place] [facility] [address] [id number] [place] [address]- 0473 Jul, [facility] [place] [facility] [address] [id number] [place] [address]- 3492 Jul, [facility] [place] [facility] [address] [id number] [place] [address]- 4579 Jun, [facility] [place] [facility] [address] [id number] [place] [address]- 5297 Jun, [facility] [place] [facility] [address] [id number] [place] [address]- 3926 Jun, [facility] [place] [facility] [address] [id number] [place] [address]- 7036 Jun, [facility] [place] [facility] [address] [id number] [place] [address]- 0871 May, [facility] [place] [facility] [address] [id number] [place] [address]- 5529 May, [facility] [place] [facility] [address] [id number] [place] [address]- 1544 May, [facility] [place] [facility] [address] [id number] [place] [address]- 5049 May, [facility] [place] [facility] [address] [id number] [place] [address]- 3836 Apr, [facility] [place] [facility] [address] [id number] [place] 6758 Apr, [facility] [place] [facility] [address] [id number] [place] [address]- 4787 Mar, [facility] [place] [facility] [address] [id number] [place] [address]- 9657 Mar, [facility] [place] [facility] [address] [id number] [place] [address]- 4987 Mar, [facility] [place] [facility] [address] [id number] [place] [address]- 4372 Mar, [facility] [place] [facility] [address] [id number] [place] [address]- 0393 Mar, [facility] [place] [facility] [address] [id number] [place] [address]- 5649 Mar, [facility] [place] [facility] [address] [id number] [place] [address]- 2424 Jan, [facility] [place] [facility] [address] [id number] [place] [address]- 6168 Jan, [facility] [place] [facility] [address] [id number] [place] [address]- 7340 Jan, [facility] [place] [facility] [address] [id number] [place] [address]- 2504 05 Jan, 2013 [facility] [place] [facility] [address] [id number] [place] [address]- 4880 Jan, [facility] [place] [facility] [address] [id number] [place] [address]- 5399 Jan, [facility] [place] [facility] [address] [id number] [place] 8344 Dec, [facility] [place] [facility] [address] [id number] [place] [address]- 6696 Dec, [facility] [place] [facility] [address] [id number] [place] [address]- 4279 Dec, [facility] [place] [facility] [address] [id number] [place] [address]995 Dec, [facility] [place] [facility] [address] [id number] [place] [address]- 5426 Dec, [facility] [place] [facility] [address] [id number] [place] [address]- 6370 Dec, [facility] [place] [facility] [address] [id number] [place] [address]- 8180 Nov, [facility] [place] [facility] [address] [id number] [place] [address]- 0728 Nov, [facility] [place] [facility] [address] [id number] [place] [address]- 8453 Nov, [facility] [place] [facility] [address] [id number] [place] [address]- 8682 Nov, [facility] [place] [facility] [address] [id number] [place] [address]- 6053 Nov, [facility] [place] [facility] [address] [id number] [place] [address]- 1279 Nov, [facility] [place] [facility] [address] [id number] [place] [address]- 5211 Nov, [facility] [place] [facility] [address] [id number] [place] [address]- 9335 Nov, [facility] [place] [facility] [address] [id number] [place] [address]- 6653 Nov, [facility] [place] [facility] [address] [id number] [place] [address]- 5041 Nov, [facility] [place] [facility] [address] [id number] [place] [address]- 3994 September, [facility] [place] [facility] [address] [id number] [place] [address]- 0936 September, [facility] [address] [id number] [place] [address]- 6964 September, [facility] [place] [facility] [address] [id number] [place] [address]- 3941 September, [facility] [address] [id number] [place] [address]- 3830 September, [facility] [place] [facility] [address] [id number] [place] [address]- 7653 September, [facility] [address] [id number] [place] [address]- 6051 September, [facility] [address] [id number] [place] [address]- 2666 September, [facility] [address] [id number] [place] [address]- 8868 Aug, [facility] [address] [id number] [place] [address]- 0897 Aug, [facility] [place] [facility] [address] [id number] [place] [address]- 4782 Aug, [facility] [address] [id number] [place] [address]- 3575 Aug, [facility] [place] [facility] [address] [id number] [place] [address]- 8020 Jul, [facility] [place] [facility] [address] [id number] [place] [address]- 1990 Jul, [facility] [place] [facility] [address] [id number] [place] [address]- 3906 Jul, [facility] [place] [facility] [address] [id number] [place] [address]- 6756 Jul, [facility] [place] [facility] [address] [id number] [place] [address]- 4607 Jul, [facility] [place] [facility] [address] [id number] [place] [address]- 5118 Jul, [facility] [place] [facility] [address] [id number] [place] [address]- 6416 Jul, [facility] [place] [facility] [address] [id number] [place] [address]- 8216 Jul, [facility] [place] [facility] [address] [id number] [place] [address]- 0774 Jul, [facility] [place] [facility] [address] [id number] [place] [address]- 4773 Jul, [facility] [place] [facility] [address] [id number] [place] [address]- 7273 Jul, [facility] [place] [facility] [address] [id number] [place] [address]- 9859 Jun, [facility] [place] [facility] [address] [id number] [place] [address]- 6418 Jun, [facility] [place] [facility] [address] [id number] [place] [address]- 4731 Jun, [facility] [place] [facility] [address] [facility] [id number] [place] [address]- 2522 Jun, [facility] [place] [facility] [address] [id number] [place] [address]- 0276 May, [facility] [place] [facility] [address] [id number] [place] [address]- 9737 May, [facility] [place] [facility] [address] [id number] [place] [address]- 4832 Apr, [facility] [place] [facility] [address] [id number] [place] [address]- 0919 Apr, [facility] [place] [facility] [address] [facility] [id number] [place] [address]- 9730 Apr, [facility] [place] [facility] [address] [id number] [place] [address]- 1356 Apr, [facility] [place] [facility] [address] [id number] [place] [address]- 1094 Apr, [facility] [place] [facility] [address] [id number] [place] [address]- 9552 Apr, [facility] [place] [facility] [address] [id number] [place] [address]- 0803 Apr, [facility] [place] [facility] [address] [id number] [place] [address]- 6390 Apr, [facility] [place] [facility] [address] [id number] [place] [address]- 7467 Apr, [facility] [place] [facility] [address] [id number] [place] [address]- 6090 Apr, [facility] [place] [facility] [address] [id number] [place] [address]- 0623 Apr, [facility] [place] [facility] [address] [id number] [place] [address]- 9898 Apr, [facility] [place] [facility] [address] [id number] [place] [address]- 3489 Mar, [facility] [place] [facility] [address] [id number] [place] [address]- 7643 Mar, [facility] [place] [facility] [address] [id number] [place] [address]- 7665 Mar, [facility] [place] [facility] [address] [id number] [place] [address]- 2071 Dec, [facility] [place] [facility] [address] [id number] [place] [address]- 9402 Dec, [facility] [place] [facility] [address] [id number] [place] [address]- 7586 Dec, [facility] [place] [facility] [address] [id number] [place] [address]- 0600 Oct, [facility] [place] [address] [facility] [id number] [address]- 3965 May, [facility] [place] [address] [facility] [id number] [address]- 0776 May, [facility] [place] [address] [facility] [id number] [address]- 2546 May, [facility] [place] [address] [facility] [id number] [address]- 1546 Dec, IMMUNIZATIONS No Known Immunizations SOCIAL HISTORY Never Assessed REASON FOR VISIT Continued Symptoms PLAN OF CARE VITAL SIGNS MEDICATIONS Medication Instructions Dosage Frequency Start Date End Date Duration Status Permethrin 5 % Externally Once a day 1 application shoulder to toes at bedtime, rinse thoroughly in the am, repeat in 7 days 24h Apr,Apr 7 day(s) Active Permethrin 5 % Externally as directed 1 application to affected area Apr, 7 day(s) Active RESULTS No Results PROCEDURES No [...] Gall Bladder Surgical History Tubalization Hospitalization History [facility] 12/2014 Hospitalization History Obstructive Airway Disease, Mood disorder, cough-[facility] 07/02/15 Hospitalization History Bronchitis- [facility] 06/2016
--- OUTSIDE RECORDS SUMMARY | 2018-02-03 09:32 | XMS REPORT | Continuity of Care Document ---
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 DYSSOMNIA NOS 02/09/2009 MERCEDES MEAL ATTENDANT, GRAZYNA D 296.90 MO MOOD DIS NOS 02/09/2009 MERCEDES MEAL ATTENDANT, GRAZYNA D 307.47 SI DYSSOMNIA NOS 02/09/2009 MERCEDES MEAL ATTENDANT, GRAZYNA D 296.90 MO MOOD DIS NOS 02/09/2009 MERCEDES BALLARDPC, GRAZYNA D 307.47 SI DYSSOMNIA NOS 02/09/2009 DON SWEENEY MD 296.90 MO MOOD DIS NOS 02/09/2009 DON SWEENEY MD 307.47 SI DYSSOMNIA NOS 02/09/2009 DON SWEENEY MD 296.90 MO MOOD DIS NOS 02/09/2009 DON SWEENEY MD 307.47 SI DYSSOMNIA NOS 02/09/2009 DON SWEENEY MD M 296.90 MO MOOD DIS NOS 02/09/2009 DON SWEENEY MD 307.47 SI DYSSOMNIA NOS 02/09/2009 KRISTIAN DUNNYD, ASHLEY L 296.90 MO MOOD DIS NOS 02/09/2009 KRISTIAN DUNNYD, ASHLEY L 307.47 SI DYSSOMNIA NOS 02/09/2009 KRISTIAN PSYD, ASHLEY L 296.90 MO MOOD DIS NOS 02/09/2009 KRISTIAN PSYD, ASHLEY L 307.47 SI DYSSOMNIA NOS 02/09/2009 CATHERINEY PSYD, ASHLEY L 296.90 MO MOOD DIS NOS 02/09/2009 KRISTIAN PRITCHETT, ASHLEY L 307.47 SI DYSSOMNIA NOS 02/09/2009 DISHA LANGFORD APRN 296.90 MO MOOD DIS NOS 02/09/2009 LANGFORDITALO BAHENANDISHA 307.47 SI DYSSOMNIA NOS 02/09/2009 KRISTIAN PRITCHETT, ASHLEY L 296.90 MO MOOD DIS NOS 02/09/2009 KRISTIAN PRITCHETT, ASHLEY L 307.47 SI DYSSOMNIA NOS 02/09/2009 DISHA LANGFORD APRN 296.90 MO MOOD DIS NOS 02/09/2009 ANASTASIYA BAHENANDISHA 307.47 SI DYSSOMNIA NOS 02/09/2009 KRISTIAN PRITCHETT, ASHLEY L 296.90 MO MOOD DIS NOS 02/09/2009 KRISTIAN PRITCHETT, ASHLEY L 307.47 SI DYSSOMNIA NOS 02/09/2009 CATHERINEY PSYD, ASHLEY L 296.90 MO MOOD DIS NOS 02/09/2009 KRISTIAN DUNNYD, ASHLEY L 307.47 SI DYSSOMNIA NOS 02/09/2009 KRISTIAN DUNNYD, ASHLEY L 296.90 MO MOOD DIS NOS 02/09/2009 KRISTIAN DUNNYD, ASHLEY L 307.47 SI DYSSOMNIA NOS 02/09/2009 KRISTIAN DUNNYD, ASHLEY L 296.90 MO MOOD DIS NOS 02/09/2009 KRISTIAN PRITCHETT, ASHLEY L 307.47 SI DYSSOMNIA NOS 02/09/2009 DISHA LANGFORD APRN 296.90 MO MOOD DIS NOS 02/09/2009 ANASTASIYA REN, DISHA OWENS 307.47 SI DYSSOMNIA NOS 02/09/2009 MCCLEJOEY PSYD, ASHLEY L 296.90 MO MOOD DIS NOS 02/09/2009 MCCLERADAMES PSYD, ASHLEY L 307.47 SI DYSSOMNIA NOS 02/09/2009 MCCLEEARY PSYD, ASHLEY L 296.90 MO MOOD DIS NOS 02/09/2009 MCCLEEARY PSYD, ASHLEY L 307.47 SI DYSSOMNIA NOS 02/09/2009 ISHAN MAINTENANCE INSPECTOR, MURIEL M 296.90 MO MOOD DIS NOS 02/09/2009 ISHAN MAINTENANCE INSPECTOR, MURIEL M 307.47 SI DYSSOMNIA NOS 02/09/2009 KRISTIAN PSYD, ASHLEY L 296.90 MO MOOD DIS NOS 02/09/2009 KRISTIAN PRITCHETT, ASHLEY L 307.47 SI DYSSOMNIA NOS 02/09/2009 ISHAN MAINTENANCE INSPECTOR, MURIEL M 296.90 MO MOOD DIS NOS 02/09/2009 ISHAN MAINTENANCE INSPECTOR, MURIEL M 307.47 SI DYSSOMNIA NOS 02/09/2009 CATHERINEY PSYD, ASHLEY L 296.90 MO MOOD DIS NOS 02/09/2009 KRISTIAN PRITCHETT, ASHLEY L 307.47 SI DYSSOMNIA NOS 02/09/2009 MADL ALPINE GUIDE, MARYSOL L 296.90 MO MOOD DIS NOS 02/09/2009 MADL ALPINE GUIDE, MARYSOL L 307.47 SI DYSSOMNIA NOS 02/13/2009 DON SWEENEY MD 300.02 AN GEN ANXIETY 02/13/2009 GRAZYNA LONG LCPC 300.02 AN GEN ANXIETY 02/13/2009 ANASTASIYA MIKALDISHA 300.02 AN GEN ANXIETY 02/13/2009 GRAZYNA LONG LCPC 300.02 AN GEN ANXIETY 02/13/2009 GRAZYNA LONG LCPC 300.02 AN GEN ANXIETY 02/13/2009 GRAZYNA LONG LCPC 300.02 AN GEN ANXIETY 02/13/2009 DON SWEENEY MD 300.02 AN GEN ANXIETY 02/13/2009 DON SWEENEY MD 300.02 AN GEN ANXIETY 02/13/2009 DON SWEENEY MD 300.02 AN GEN ANXIETY 02/13/2009 KRISTIAN PRITCHETT, ASHLEY L 300.02 AN GEN ANXIETY 02/13/2009 KRISTIAN PRITCHETT, ASHLEY L 300.02 AN GEN ANXIETY 02/13/2009 KRISTIAN PRITCHETT, ASHLEY L 300.02 AN GEN ANXIETY 02/13/2009 ANASTASIYA REN DISHA ROMAN 300.02 AN GEN ANXIETY 02/13/2009 KRISTIAN PRITCHETT, ASHLEY L 300.02 AN GEN ANXIETY 02/13/2009 ANASTASIYA REN DISHA ROMAN 300.02 AN GEN ANXIETY 02/13/2009 KRISTIAN PRITCHETT, ASHLEY L 300.02 AN GEN ANXIETY 02/13/2009 KRISTIAN PRITCHETT, ASHLEY L 300.02 AN GEN ANXIETY 02/13/2009 KRISTIAN PRITCHETT, ASHLEY L 300.02 AN GEN ANXIETY 02/13/2009 KRISTIAN PRITCHETT, ASHLEY L 300.02 AN GEN ANXIETY 02/13/2009 ANASTASIYA REN DISHA ROMAN 300.02 AN GEN ANXIETY 02/13/2009 KRISTIAN PRITCHETT, ASHLEY L 300.02 AN GEN ANXIETY 02/13/2009 KRISTIAN PRITCHETT, ASHLEY L 300.02 AN GEN ANXIETY 02/13/2009 MURIEL ERWIN 300.02 AN GEN ANXIETY 02/13/2009 KRISTIAN PRITCHETT, ASHLEY L 300.02 AN GEN ANXIETY 02/13/2009 MURIEL ERWIN 300.02 AN GEN ANXIETY 02/13/2009 KRISTIAN PRITCHETT, ASHLEY L 300.02 AN GEN ANXIETY 02/13/2009 MARYSOL CANSECO APRN 300.02 AN GEN ANXIETY 06/21/2009 DON SWEENEY MD 296.50 MO BIPOLAR I DEPRESSED UNSPECIFIED 06/21/2009 DON SWEENEY MD V58.69 MEDICATION HIGH RISK 06/21/2009 GRAZYNA LONG LCPC 296.50 MO BIPOLAR I DEPRESSED UNSPECIFIED 06/21/2009 GRAZYNA LONG LCPC V58.69 MEDICATION HIGH RISK 06/21/2009 DISHA LANGFORD APRN 296.50 MO BIPOLAR I DEPRESSED UNSPECIFIED 06/21/2009 ANASTASIYA REN, DISHA OWENS V58.69 MEDICATION HIGH RISK 06/21/2009 MERCEDES MEAL ATTENDANT, GRAZYNA D 296.50 MO BIPOLAR I DEPRESSED UNSPECIFIED 06/21/2009 MERCEDES MEAL ATTENDANT, GRAZYNA D V58.69 MEDICATION HIGH RISK 06/21/2009 MERCEDES MEAL ATTENDANT, GRAZYNA D 296.50 MO BIPOLAR I DEPRESSED UNSPECIFIED 06/21/2009 MERCEDES MEAL ATTENDANT, GRAZYNA D V58.69 MEDICATION HIGH RISK 06/21/2009 MERCEDES MEAL ATTENDANT, GRAZYNA D 296.50 MO BIPOLAR I DEPRESSED UNSPECIFIED 06/21/2009 MERCEDES MEAL ATTENDANT, GRAZYNA D V58.69 MEDICATION HIGH RISK 06/21/2009 ZAHRA TAMEZ, DON Lebron 296.50 MO BIPOLAR I DEPRESSED UNSPECIFIED 06/21/2009 ZAHRA TAMEZ, DON Lebron V58.69 MEDICATION HIGH RISK 06/21/2009 DON SWEENEY MD 296.50 MO BIPOLAR I DEPRESSED UNSPECIFIED 06/21/2009 DON SWEENEY MD V58.69 MEDICATION HIGH RISK 06/21/2009 ZAHRA TAMEZ, DON Lebron 296.50 MO BIPOLAR I DEPRESSED UNSPECIFIED 06/21/2009 ZAHRA TAMEZ, DON Lebron V58.69 MEDICATION HIGH RISK 06/21/2009 SHANTAL TOWNSEND PSYD ANN L 296.50 MO BIPOLAR I DEPRESSED UNSPECIFIED 06/21/2009 SHANTAL TOWNSEND PSYD ANN L V58.69 MEDICATION HIGH RISK 06/21/2009 SHANTAL TOWNSEND PSYD ANN L 296.50 MO BIPOLAR I DEPRESSED UNSPECIFIED 06/21/2009 SHANTAL [place]OWNS[place] PSYD ANN L V58.69 MEDICATION HIGH RISK 06/21/2009 KRISTIAN PRTICHETT ASHLEY L 296.50 MO BIPOLAR I DEPRESSED UNSPECIFIED 06/21/2009 SHANTAL TOWNSEND PSYD ANN L V58.69 MEDICATION HIGH RISK 06/21/2009 ANASTASIYA REN, DISHA OWENS 296.50 MO BIPOLAR I DEPRESSED UNSPECIFIED 06/21/2009 ANASTASIYA REN, DISHA OWENS V58.69 MEDICATION HIGH RISK 06/21/2009 SHANTAL TOWNSEND PSYD ANN L 296.50 MO BIPOLAR I DEPRESSED UNSPECIFIED 06/21/2009 SHANTAL [place]OW[place] PSYD ANN L V58.69 MEDICATION HIGH RISK 06/21/2009 ANASTASIYA REN, DISHA OWENS 296.50 MO BIPOLAR I DEPRESSED UNSPECIFIED 06/21/2009 ANASTASIYA REN, DISHA OWENS V58.69 MEDICATION HIGH RISK 06/21/2009 KRISTIAN PRITCHETT, ASHLEY L 296.50 MO BIPOLAR I DEPRESSED UNSPECIFIED 06/21/2009 KRISTIAN PRITCHETT, ASHLEY L V58.69 MEDICATION HIGH RISK 06/21/2009 KRISTIAN PRITCHETT, ASHLEY L 296.50 MO BIPOLAR I DEPRESSED UNSPECIFIED 06/21/2009 KRISTIAN PRITCHETT, ASHLEY L V58.69 MEDICATION HIGH RISK 06/21/2009 KRISTIAN PRITCHETT, ASHLEY L 296.50 MO BIPOLAR I DEPRESSED UNSPECIFIED 06/21/2009 SHANTAL TOWNSEND PSYD ANN L V58.69 MEDICATION HIGH RISK 06/21/2009 KRISTIAN PRITCHETT, ASHLEY L 296.50 MO BIPOLAR I DEPRESSED UNSPECIFIED 06/21/2009 SHANTAL [place]OW[place]END PSYD ANN L V58.69 MEDICATION HIGH RISK 06/21/2009 ANASTASIYA REN, DISHA OWENS 296.50 MO BIPOLAR I DEPRESSED UNSPECIFIED 06/21/2009 LANGFORD ALPINE GUIDE, DISHA OWENS V58.69 MEDICATION HIGH RISK 06/21/2009 KRISTIAN PRITCHETT, ASHLEY L 296.50 MO BIPOLAR I DEPRESSED UNSPECIFIED 06/21/2009 SHANTAL TOWNSEND PSYD ANN L V58.69 MEDICATION HIGH RISK 06/21/2009 KRISTIAN PRITCHETT, ASHLEY L 296.50 MO BIPOLAR I DEPRESSED UNSPECIFIED 06/21/2009 SHANTAL [place] PSYD ANN L V58.69 MEDICATION HIGH RISK 06/21/2009 ISHAN MAINTENANCE INSPECTORMURIEL M 296.50 MO BIPOLAR I DEPRESSED UNSPECIFIED 06/21/2009 ISHAN MAINTENANCE INSPECTORJONHMURIEL M V58.69 MEDICATION HIGH RISK 06/21/2009 KRISTIAN PRITCHETT, ASHLEY L 296.50 MO BIPOLAR I DEPRESSED UNSPECIFIED 06/21/2009 SHANTAL TOWNSEND PSYD ANN L V58.69 MEDICATION HIGH RISK 06/21/2009 ISHAN MAINTENANCE INSPECTOR MURIEL M 296.50 MO BIPOLAR I DEPRESSED UNSPECIFIED 06/21/2009 ISHAN MAINTENANCE INSPECTOR MURIEL M V58.69 MEDICATION HIGH RISK 06/21/2009 SHANTAL TOWNSEND PSYD L 296.50 MO BIPOLAR I DEPRESSED UNSPECIFIED 06/21/2009 SHANTAL TOWNSEND PSYD L V58.69 MEDICATION HIGH RISK 06/21/2009 MADL ALPINE GUIDE, MARYSOL L 296.50 MO BIPOLAR I DEPRESSED UNSPECIFIED 06/21/2009 MADL ALPINE GUIDE, MARYSOL L V58.69 MEDICATION HIGH RISK 07/24/2009 DON SWEENEY MD 296.52 MO BIPOLAR I DEPRESSED MODERATE 07/24/2009 MERCEDES BALLARDPC, GRAZYNA D 296.52 MO BIPOLAR I DEPRESSED MODERATE 07/24/2009 DISHA LANGFORD APRN 296.52 MO BIPOLAR I DEPRESSED MODERATE 07/24/2009 MERCEDES MEAL ATTENDANT, GRAZYNA D 296.52 MO BIPOLAR I DEPRESSED MODERATE 07/24/2009 MERCEDES MEAL ATTENDANT, GRAZYNA D 296.52 MO BIPOLAR I DEPRESSED MODERATE 07/24/2009 MERCEDES MEAL ATTENDANT, GRAZYNA D 296.52 MO BIPOLAR I DEPRESSED MODERATE 07/24/2009 DON SWEENEY MD 296.52 MO BIPOLAR I DEPRESSED MODERATE 07/24/2009 DON SWEENEY MD 296.52 MO BIPOLAR I DEPRESSED MODERATE 07/24/2009 DON SWEENEY MD 296.52 MO BIPOLAR I DEPRESSED MODERATE 07/24/2009 SHANTAL TOWNSEND PSYD ANN L 296.52 MO BIPOLAR I DEPRESSED MODERATE 07/24/2009 SHANTAL TOWNSEND PSYD ANN L 296.52 MO BIPOLAR I DEPRESSED MODERATE 07/24/2009 SHANTAL TOWNSEND PSYD ANN L 296.52 MO BIPOLAR I DEPRESSED MODERATE 07/24/2009 DISHA LANGFORD APRN 296.52 MO BIPOLAR I DEPRESSED MODERATE 07/24/2009 SHANTAL TOWNSEND PSYD ANN L 296.52 MO BIPOLAR I DEPRESSED MODERATE 07/24/2009 DISHA LANGFORD APRN ROMAN 296.52 MO BIPOLAR I DEPRESSED MODERATE 07/24/2009 SHANTAL TOWNSEND PSYD ANN L 296.52 MO BIPOLAR I DEPRESSED MODERATE 07/24/2009 SHANTAL TOWNSEND PSYD ANN L 296.52 MO BIPOLAR I DEPRESSED MODERATE 07/24/2009 SHANTAL TOWNSEND PSYD ANN L 296.52 MO BIPOLAR I DEPRESSED MODERATE 07/24/2009 SHANTAL TOWNSEND PSYD ANN L 296.52 MO BIPOLAR I DEPRESSED MODERATE 07/24/2009 DISHA LANGFORD APRN 296.52 MO BIPOLAR I DEPRESSED MODERATE 07/24/2009 KRISTIAN PSYD, ASHLEY L 296.52 MO BIPOLAR I DEPRESSED MODERATE 07/24/2009 MCCRILEY PSYD, ASHLEY L 296.52 MO BIPOLAR I DEPRESSED MODERATE 07/24/2009 ISHAN MAINTENANCE INSPECTOR, MURIEL M 296.52 MO BIPOLAR I DEPRESSED MODERATE 07/24/2009 MCCRILEY PSYD, ASHLEY L 296.52 MO BIPOLAR I DEPRESSED MODERATE 07/24/2009 ISHAN MAINTENANCE INSPECTOR, MURIEL M 296.52 MO BIPOLAR I DEPRESSED MODERATE 07/24/2009 MCCRILEY PSYD, ASHLEY L 296.52 MO BIPOLAR I DEPRESSED MODERATE 07/24/2009 AJITH JUAQUIN RENA L 296.52 MO BIPOLAR I DEPRESSED MODERATE 12/19/2009 DON SWEENEY MD 300.01 AN PANIC DIS W/O AGORA 12/19/2009 DON SWEENEY MD 309.81 AN PTSD 12/19/2009 GRAZYNA LONG LCPC 300.01 AN PANIC DIS W/O AGORA 12/19/2009 GRAZYNA LONG LCPC 309.81 AN PTSD 12/19/2009 DISHA LANGFORD APRN 300.01 AN PANIC DIS W/O AGORA 12/19/2009 LANGFORDITALO RENDISHA 309.81 AN PTSD 12/19/2009 GRAZYNA LONG LCPC 300.01 AN PANIC DIS W/O AGORA 12/19/2009 GRAZYNA LONG LCPC 309.81 AN PTSD 12/19/2009 GRAZYNA LONG LCPC 300.01 AN PANIC DIS W/O AGORA 12/19/2009 GRAZYNA LONG LCPC 309.81 AN PTSD 12/19/2009 GRAZYNA LONG LCPC 300.01 AN PANIC DIS W/O AGORA 12/19/2009 GRAZYNA LONG LCPC 309.81 AN PTSD 12/19/2009 DON SWEENEY MD 300.01 AN PANIC DIS W/O AGORA 12/19/2009 DON SWEENEY MD 309.81 AN PTSD 12/19/2009 DON SWEENEY MD 300.01 AN PANIC DIS W/O AGORA 12/19/2009 DON SWEENEY MD 309.81 AN PTSD 12/19/2009 DON SWEENEY MD 300.01 AN PANIC DIS W/O AGORA 12/19/2009 DON SWEENEY MD 309.81 AN PTSD 12/19/2009 SHANTAL TOWNSEND PSYD ANN L 300.01 AN PANIC DIS W/O AGORA 12/19/2009 SHANTAL TOWNSEND PSYD ANN L 309.81 AN PTSD 12/19/2009 SHANTAL TOWNSEND PSYD ANN L 300.01 AN PANIC DIS W/O AGORA 12/19/2009 SHANTAL TOWNSEND PSYD ANN L 309.81 AN PTSD 12/19/2009 SHANTAL TOWNSEND PSYD ANN L 300.01 AN PANIC DIS W/O AGORA 12/19/2009 SHANTAL [place]OW[place]END PSYD ANN L 309.81 AN PTSD 12/19/2009 ANASTASIYA REN DISHA GUEVARAH 300.01 AN PANIC DIS W/O AGORA 12/19/2009 ANASTASIYA REN DISHA GUEVARAH 309.81 AN PTSD 12/19/2009 SHANTAL TOWNSEND PSYD ANN L 300.01 AN PANIC DIS W/O AGORA 12/19/2009 SHANTAL TOWNSEND PSYD ANN L 309.81 AN PTSD 12/19/2009 ANASTASIYA REN DISHA GUEVARAH 300.01 AN PANIC DIS W/O AGORA 12/19/2009 ANASTASIYA REN DISHA GUEVARAH 309.81 AN PTSD 12/19/2009 SHANTAL TOWNSEND PSYD ANN L 300.01 AN PANIC DIS W/O AGORA 12/19/2009 KRISTIAN PRITCHETT ASHLEY L 309.81 AN PTSD 12/19/2009 SHANTAL TOWNSEND PSYD ANN L 300.01 AN PANIC DIS W/O AGORA 12/19/2009 SHANTAL TOWNSEND PSYD ANN L 309.81 AN PTSD 12/19/2009 SHANTAL TOWNSEND PSYD ANN L 300.01 AN PANIC DIS W/O AGORA 12/19/2009 SHANTAL TOWNSEND PSYD ANN L 309.81 AN PTSD 12/19/2009 SHANTAL TOWNSEND PSYD ANN L 300.01 AN PANIC DIS W/O AGORA 12/19/2009 SHANTAL [place] PSYD ANN L 309.81 AN PTSD 12/19/2009 LANGFORD MIKALDISHA 300.01 AN PANIC DIS W/O AGORA 12/19/2009 ANASTASIYA RENDISHA 309.81 AN PTSD 12/19/2009 SHANTAL TOWNSEND PSYD ANN L 300.01 AN PANIC DIS W/O AGORA 12/19/2009 SHANTAL TOWNSEND PSYD ANN L 309.81 AN PTSD 12/19/2009 SHANTAL TOWNSEND PSYD ANN L 300.01 AN PANIC DIS W/O AGORA 12/19/2009 SHANTAL TOWNSEND PSYD ANN L 309.81 AN PTSD 12/19/2009 MURIEL ERWIN 300.01 AN PANIC DIS W/O AGORA 12/19/2009 MURIEL ERWIN M 309.81 AN PTSD 12/19/2009 SHANTAL TOWNSEND PSYD ANN L 300.01 AN PANIC DIS W/O AGORA 12/19/2009 SHANTAL TOWNSEND PSYD ANN L 309.81 AN PTSD 12/19/2009 MURIEL ERWIN M 300.01 AN PANIC DIS W/O AGORA 12/19/2009 MURIEL ERWIN M 309.81 AN PTSD 12/19/2009 SHANTAL TOW[place]END PSYD ANN L 300.01 AN PANIC DIS W/O AGORA 12/19/2009 SHANTAL [place] PSYD ANN L 309.81 AN PTSD 12/19/2009 AJITH ALPINE GUIDEJUAQUIN SanonA L 300.01 AN PANIC DIS W/O AGORA 12/19/2009 AJITH ALPINE GUIDE, MARYSOL L 309.81 AN PTSD 01/30/2010 DON SWEENEY MD 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 01/30/2010 DON SWEENEY MD 618.04 RECTOCELE 01/30/2010 DON SWEENEY MD V72.31 LATIN DANCE INSTRUCTOR EXAM, ROUTINE 01/30/2010 GRAZYNA LONG LCPC 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 01/30/2010 GRAZYNA LONG LCPC 618.04 RECTOCELE 01/30/2010 GRAZYNA LONG LCPC V72.31 LATIN DANCE INSTRUCTOR EXAM, ROUTINE 01/30/2010 DISHA LANGFORD APRN 618.00 UNSPECIFIED PROLAPSE OF VAGINAL TWONSEND 01/30/2010 ANASTASIYA REN, DISHA OWENS 618.04 RECTOCELE 01/30/2010 ANASTASIYA BAHENANDISHA V72.31 LATIN DANCE INSTRUCTOR EXAM, ROUTINE 01/30/2010 MERCEDES MEAL ATTENDANT, GRAZYNA D 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 01/30/2010 MERCEDES MEAL ATTENDANT, GRAZYNA D 618.04 RECTOCELE 01/30/2010 MERCEDES MEAL ATTENDANT, GRAZYNA D V72.31 LATIN DANCE INSTRUCTOR EXAM, ROUTINE 01/30/2010 MERCEDES MEAL ATTENDANT, GRAZYNA D 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 01/30/2010 MERCEDES MEAL ATTENDANT, GRAZYNA D 618.04 RECTOCELE 01/30/2010 MERCEDES MEAL ATTENDANT, GRAZYNA D V72.31 LATIN DANCE INSTRUCTOR EXAM, ROUTINE 01/30/2010 MERCEDES MEAL ATTENDANT, GRAZYNA D 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 01/30/2010 MERCEDES MEAL ATTENDANT, GRAZYNA D 618.04 RECTOCELE 01/30/2010 MERCEDES MEAL ATTENDANT, GRAZYNA D V72.31 LATIN DANCE INSTRUCTOR EXAM, ROUTINE 01/30/2010 ZAHRA TAMEZ, DON Lebron 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 01/30/2010 ZAHRA TAMEZ, DON Lebron 618.04 RECTOCELE 01/30/2010 ZAHRA TAMEZ, DON Lebron V72.31 LATIN DANCE INSTRUCTOR EXAM, ROUTINE 01/30/2010 ZAHRA TAMEZ, DON Lebron 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 01/30/2010 ZAHRA TAMEZ, DON Lebron 618.04 RECTOCELE 01/30/2010 DON SWEENEY MD V72.31 LATIN DANCE INSTRUCTOR EXAM, ROUTINE 01/30/2010 ZAHRA TAMEZ, DON Lebron 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 01/30/2010 DON SWEENEY MD 618.04 RECTOCELE 01/30/2010 DON SWEENEY MD V72.31 LATIN DANCE INSTRUCTOR EXAM, ROUTINE 01/30/2010 SHANTAL TOWNSEND PSYD L 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 01/30/2010 SHANTAL TOWNSEND PSYD L 618.04 RECTOCELE 01/30/2010 MCCLEEARY PSYD, ASHLEY L V72.31 LATIN DANCE INSTRUCTOR EXAM, ROUTINE 01/30/2010 SHANTAL TOWNSEND PSYD ANN L 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 01/30/2010 SHANTAL TOWNSEND PSYD ANN L 618.04 RECTOCELE 01/30/2010 SHANTAL TOWNSEND PSYD ANN L V72.31 LATIN DANCE INSTRUCTOR EXAM, ROUTINE 01/30/2010 SHANTAL TOWNSEND PSYD ANN L 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 01/30/2010 SHANTAL TOWNSEND PSYD ANN L 618.04 RECTOCELE 01/30/2010 SHANTAL [place]OW[place]END PSYD ANN L V72.31 LATIN DANCE INSTRUCTOR EXAM, ROUTINE 01/30/2010 LANGFORD ALPINE GUIDE, DISHA OWENS 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 01/30/2010 LANGFORD ALPINE GUIDE, DISHA OWENS 618.04 RECTOCELE 01/30/2010 LANGFORD ALPINE GUIDE, DISHA OWENS V72.31 LATIN DANCE INSTRUCTOR EXAM, ROUTINE 01/30/2010 SHANTAL TOWNSEND PSYD ANN L 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 01/30/2010 SHANTAL TOWNSEND PSYD ANN L 618.04 RECTOCELE 01/30/2010 SHANTAL TOWNSEND PSYD ANN L V72.31 LATIN DANCE INSTRUCTOR EXAM, ROUTINE 01/30/2010 LANGFORD ALPINE GUIDE, DISHA OWENS 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 01/30/2010 LANGFORD ALPINE GUIDE, DISHA OWENS 618.04 RECTOCELE 01/30/2010 LANGFORD ALPINE GUIDE, DISHA OWENS V72.31 LATIN DANCE INSTRUCTOR EXAM, ROUTINE 01/30/2010 SHANTAL TOWNSEND PSYD ANN L 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 01/30/2010 SHANTAL TOWNSEND PSYD ANN L 618.04 RECTOCELE 01/30/2010 SHANTAL TOWNSEND PSYD ANN L V72.31 LATIN DANCE INSTRUCTOR EXAM, ROUTINE 01/30/2010 SHANTAL TOWNSEND PSYD ANN L 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 01/30/2010 SHANTAL TOWNSEND PSYD ANN L 618.04 RECTOCELE 01/30/2010 SHANTAL TOWNSEND PSYD ANN L V72.31 LATIN DANCE INSTRUCTOR EXAM, ROUTINE 01/30/2010 SHANTAL TOWNSEND PSYD ANN L 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 01/30/2010 SHANTAL TOWNSEND PSYD ANN L 618.04 RECTOCELE 01/30/2010 SHANTAL TOWNSEND PSYD ANN L V72.31 LATIN DANCE INSTRUCTOR EXAM, ROUTINE 01/30/2010 SHANTAL TOWNSEND PSYD ANN L 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 01/30/2010 SHANTAL TOWNSEND PSYD ANN L 618.04 RECTOCELE 01/30/2010 SHANTAL [place] PSYD ANN L V72.31 LATIN DANCE INSTRUCTOR EXAM, ROUTINE 01/30/2010 ANASTASIYA REN, DISHA OWENS 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 01/30/2010 LANGFORD ALPINE GUIDE, DISHA OWENS 618.04 RECTOCELE 01/30/2010 ANASTASIYA REN, DISHA OWENS V72.31 LATIN DANCE INSTRUCTOR EXAM, ROUTINE 01/30/2010 SHANTAL TOWNSEND PSYD ANN L 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 01/30/2010 SHANTAL TOWNSEND PSYD ANN L 618.04 RECTOCELE 01/30/2010 SHANTAL TOW[place]END PSYD ANN L V72.31 LATIN DANCE INSTRUCTOR EXAM, ROUTINE 01/30/2010 SHANTAL TOW[place] PSYD ANN L 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 01/30/2010 SHANTAL TOW[place] PSYD ANN L 618.04 RECTOCELE 01/30/2010 SHANTAL [place] PSYD ANN L V72.31 LATIN DANCE INSTRUCTOR EXAM, ROUTINE 01/30/2010 MURIEL ERWIN M 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 01/30/2010 MURIEL ERWIN M 618.04 RECTOCELE 01/30/2010 MURIEL ERWIN V72.31 LATIN DANCE INSTRUCTOR EXAM, ROUTINE 01/30/2010 SHANTAL TOWNSEND PSYD ANN L 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 01/30/2010 SHANTAL TOWNSEND PSYD ANN L 618.04 RECTOCELE 01/30/2010 SHANTAL TOWNSEND PSYD ANN L V72.31 LATIN DANCE INSTRUCTOR EXAM, ROUTINE 01/30/2010 MURIEL ERWIN M 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 01/30/2010 MURIEL ERWIN M 618.04 RECTOCELE 01/30/2010 MURIEL ERWIN V72.31 LATIN DANCE 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 EXAM, ROUTINE 01/30/2010 SHANTAL TOWNSEND PSYD ANN L 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 01/30/2010 SHANTAL TOWNSEND PSYD ANN L 618.04 RECTOCELE 01/30/2010 SHANTAL TOWNSEND PSYD ANN L V72.31 LATIN DANCE INSTRUCTOR EXAM, ROUTINE 01/30/2010 MADL ALPINE GUIDE, MARYSOL L 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 01/30/2010 MADL ALPINE GUIDE, MARYSOL L 618.04 RECTOCELE 01/30/2010 MADL ALPINE GUIDE, MARYSOL L V72.31 LATIN DANCE INSTRUCTOR EXAM, ROUTINE 08/02/2010 DON SWEENEY MD 278.02 OVERWEIGHT 08/02/2010 DON SWEENEY MD 564.00 CONSTIPATION 08/02/2010 DON SWEENEY MD 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 08/02/2010 MERCEDES MEAL ATTENDANT, GRAZYNA D 278.02 OVERWEIGHT 08/02/2010 MERCEDES MEAL ATTENDANT, GRAZYNA D 564.00 CONSTIPATION 08/02/2010 MERCEDES MEAL ATTENDANT, GRAZYNA D 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 08/02/2010 ANASTASIYA REN DISHA OWENS 278.02 OVERWEIGHT 08/02/2010 ANASTASIYA REN DISHA OWENS 564.00 CONSTIPATION 08/02/2010 ANASTASIYA REN DISHA OWENS 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 08/02/2010 MERCEDES MEAL ATTENDANT, GRAZYNA D 278.02 OVERWEIGHT 08/02/2010 MERCEDES MEAL ATTENDANT, GRAZYNA D 564.00 CONSTIPATION 08/02/2010 MERCEDES MEAL ATTENDANT, GRAZYNA D 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 08/02/2010 MERCEDES MEAL ATTENDANT, GRAZYNA D 278.02 OVERWEIGHT 08/02/2010 MERCEDES MEAL ATTENDANT, GRAZYNA D 564.00 CONSTIPATION 08/02/2010 MERCEDES MEAL ATTENDANT, GRAZYAN D 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 08/02/2010 MERCEDES MEAL ATTENDANT, GRAZYNA D 278.02 OVERWEIGHT 08/02/2010 MERCEDES MEAL ATTENDANT, GRAZYNA D 564.00 CONSTIPATION 08/02/2010 GRAZYNA LONG LCPC 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 08/02/2010 DON SWEENEY MD 278.02 Overweight 08/02/2010 DON SWEENEY MD 564.00 CONSTIPATION 08/02/2010 DON SWEENEY MD 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 08/02/2010 DON SWEENEY MD 278.02 Overweight 08/02/2010 DON SWEENEY MD 564.00 CONSTIPATION 08/02/2010 DON SWEENEY MD 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 08/02/2010 DON SWEENEY MD 278.02 Overweight 08/02/2010 DON SWEENEY MD 564.00 CONSTIPATION 08/02/2010 DON SWEENEY MD 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 08/02/2010 SHANTAL TOWNSEND PSYD L 278.02 Overweight 08/02/2010 SHANTAL TOWNSEND PSYD ANN L 564.00 CONSTIPATION 08/02/2010 SHANTAL TOWNSEND PSYD ANN L 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 08/02/2010 SHANTAL TOWNSEND PSYD ANN L 278.02 Overweight 08/02/2010 SHANTAL TOWNSEND PSYD ANN L 564.00 CONSTIPATION 08/02/2010 SHANTAL TOWNSEND PSYD ANN L 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 08/02/2010 SHANTAL TOWNSEND PSYD ANN L 278.02 Overweight 08/02/2010 SHANTAL TOWNSEND PSYD ANN L 564.00 CONSTIPATION 08/02/2010 SHANTAL TOWNSEND PSYD ANN L 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 08/02/2010 DISHA LANGFORD APRN 278.02 Overweight 08/02/2010 DISHA LANGFORD APRN 564.00 CONSTIPATION 08/02/2010 DISHA LANGFORD APRN 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 08/02/2010 SHANTAL TOWNSEND PSYD ANN L 278.02 Overweight 08/02/2010 SHANTAL TOWNSEND PSYD ANN L 564.00 CONSTIPATION 08/02/2010 SHANTAL TOWNSEND PSYD ANN L 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 08/02/2010 DISHA LANGFORD APRN 278.02 Overweight 08/02/2010 DISHA LANGFORD APRN 564.00 CONSTIPATION 08/02/2010 DIHSA LANGFORD APRN 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 08/02/2010 SHANTAL TOWNSEND PSYD ANN L 278.02 Overweight 08/02/2010 SHANTAL TOWNSEND PSYD ANN L 564.00 CONSTIPATION 08/02/2010 SHANTAL TOWNSEND PSYD ANN L 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 08/02/2010 SHANTAL TOWNSEND PSYD ANN L 278.02 Overweight 08/02/2010 SHANTAL TOWNSEND PSYD ANN L 564.00 CONSTIPATION 08/02/2010 SHANTAL TOWNSEND PSYD ANN L 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 08/02/2010 SHANTAL TOWNSEND PSYD ANN L 278.02 Overweight 08/02/2010 SHANTAL TOWNSEND PSYD ANN L 564.00 CONSTIPATION 08/02/2010 SHANTAL TOWNSEND PSYD ANN L 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 08/02/2010 SHANTAL TOWNSEND PSYD ANN L 278.02 Overweight 08/02/2010 SHANTAL TOWNSEND PSYD ANN L 564.00 CONSTIPATION 08/02/2010 SHANTAL TOWNSEND PSYD ANN L 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 08/02/2010 LANGFORDDISHA PUCKETT APRN 278.02 Overweight 08/02/2010 LANGFORDDISHA PUCKETT APRN 564.00 CONSTIPATION 08/02/2010 DISHA LANGFORD APRN 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 08/02/2010 SHANTAL TOWNSEND PSYD ANN L 278.02 Overweight 08/02/2010 SHANTAL TOWNSEND PSYD ANN L 564.00 CONSTIPATION 08/02/2010 SHANTAL TOWNSEND PSYD ANN L 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 08/02/2010 SHANTAL TOWNSEND PSYD ANN L 278.02 Overweight 08/02/2010 SHANTAL TOWNSEND PSYD L 564.00 CONSTIPATION 08/02/2010 SHANTAL TOWNSEND PSYD L 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 08/02/2010 MURIEL ERWIN M 278.02 Overweight 08/02/2010 MURIEL ERWIN M 564.00 CONSTIPATION 08/02/2010 MURIEL ERWIN M 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 08/02/2010 SHANTAL TOWNSEND PSYD ANN L 278.02 Overweight 08/02/2010 SHANTAL TOWNSEND PSYD L 564.00 CONSTIPATION 08/02/2010 SHANTAL TOWNSEND PSYD L 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 08/02/2010 MURIEL ERWIN M 278.02 Overweight 08/02/2010 MURIEL ERWIN M 564.00 CONSTIPATION 08/02/2010 MURIEL ERWIN M 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 08/02/2010 SHANTAL TOWNSEND PSYD L 278.02 Overweight 08/02/2010 SHANTAL TOWNSEND PSYD ANN L 564.00 CONSTIPATION 08/02/2010 SHANTAL TOWNSEND PSYD L 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 08/02/2010 MARYSOL CANSECO APRN L 278.02 Overweight 08/02/2010 MARYSOL CANSECO APRN L 564.00 CONSTIPATION 08/02/2010 MARYSOL CANSECO APRN L 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 01/21/2013 ZAHRA TAMEZ, DON Lebron 627.2 SYMPTOMATIC MENOPAUSAL OR FEMALE CLIMACTERIC STATES 01/21/2013 MERCEDES GROSS GRAZYNA D 627.2 SYMPTOMATIC MENOPAUSAL OR FEMALE CLIMACTERIC STATES 01/21/2013 DISHA LANGFORD APRN 627.2 SYMPTOMATIC MENOPAUSAL OR FEMALE CLIMACTERIC STATES 01/21/2013 MERCEDES BALLARDPC, GRAZYNA D 627.2 SYMPTOMATIC MENOPAUSAL OR FEMALE CLIMACTERIC STATES 01/21/2013 MERCEDES GROSS GRAZYNA D 627.2 SYMPTOMATIC MENOPAUSAL OR FEMALE CLIMACTERIC STATES 01/21/2013 MERCEDES GROSS GRAZYNA D 627.2 SYMPTOMATIC MENOPAUSAL OR FEMALE CLIMACTERIC STATES 01/21/2013 DON SWEENEY MD 627.2 SYMPTOMATIC MENOPAUSAL OR FEMALE CLIMACTERIC STATES 01/21/2013 DON SWEENEY MD 627.2 SYMPTOMATIC MENOPAUSAL OR FEMALE CLIMACTERIC STATES 01/21/2013 DON SWEENEY MD 627.2 SYMPTOMATIC MENOPAUSAL OR FEMALE CLIMACTERIC STATES 01/21/2013 KRISTIAN PRITCHETT, ASHLEY L 627.2 SYMPTOMATIC MENOPAUSAL OR FEMALE CLIMACTERIC STATES 01/21/2013 MCCLEEARIzabel PSYD, ASHLEY L 627.2 SYMPTOMATIC MENOPAUSAL OR FEMALE CLIMACTERIC STATES 01/21/2013 KRISTIAN DUNNYD, ASHLEY L 627.2 SYMPTOMATIC MENOPAUSAL OR FEMALE CLIMACTERIC STATES 01/21/2013 ANASTASIYA REN DISHA GUEVARAH 627.2 SYMPTOMATIC MENOPAUSAL OR FEMALE CLIMACTERIC STATES 01/21/2013 KRISTIAN PRITCHETT, ASHLEY L 627.2 SYMPTOMATIC MENOPAUSAL OR FEMALE CLIMACTERIC STATES 01/21/2013 ANASTASIYA REN DISHA ROMAN 627.2 SYMPTOMATIC MENOPAUSAL OR FEMALE CLIMACTERIC STATES 01/21/2013 MCCRILEY PRITCHETT, ASHLEY L 627.2 SYMPTOMATIC MENOPAUSAL OR FEMALE CLIMACTERIC STATES 01/21/2013 KRISTIAN PRITCHETT, ASHLEY L 627.2 SYMPTOMATIC MENOPAUSAL OR FEMALE CLIMACTERIC STATES 01/21/2013 MCCRILEY PRITCHETT, ASHLEY L 627.2 SYMPTOMATIC MENOPAUSAL OR FEMALE CLIMACTERIC STATES 01/21/2013 KRISTIAN PRITCHETT, ASHLEY L 627.2 SYMPTOMATIC MENOPAUSAL OR FEMALE CLIMACTERIC STATES 01/21/2013 ANASTASIYA REN DISHA GUEVARAH 627.2 SYMPTOMATIC MENOPAUSAL OR FEMALE CLIMACTERIC STATES 01/21/2013 MCCRILEY PSEFREN, ASHLEY L 627.2 SYMPTOMATIC MENOPAUSAL OR FEMALE CLIMACTERIC STATES 01/21/2013 MCCRILEY PRITCHETT, ASHLEY L 627.2 SYMPTOMATIC MENOPAUSAL OR FEMALE CLIMACTERIC STATES 01/21/2013 MURIEL ERWIN 627.2 SYMPTOMATIC MENOPAUSAL OR FEMALE CLIMACTERIC STATES 01/21/2013 MCCRILEY PRITCHETT, ASHLEY L 627.2 SYMPTOMATIC MENOPAUSAL OR FEMALE CLIMACTERIC STATES 01/21/2013 ISHAN MAINTENANCE INSPECTOR, MURIEL M 627.2 SYMPTOMATIC MENOPAUSAL OR FEMALE CLIMACTERIC STATES 01/21/2013 SHANTAL TOWNSEND PSYD ANN L 627.2 SYMPTOMATIC MENOPAUSAL OR FEMALE CLIMACTERIC STATES 01/21/2013 AJITH REN MARYSOL L 627.2 SYMPTOMATIC MENOPAUSAL OR FEMALE CLIMACTERIC STATES 04/03/2013 GRAZYNA LONG LCPC D 296.80 MO BIPOLAR NOS 04/03/2013 ARIC LONG LCPCRY D 296.80 MO BIPOLAR NOS 04/03/2013 DON SWEENEY MD 296.80 MO BIPOLAR NOS 04/03/2013 DON SWEENEY MD 296.80 MO BIPOLAR NOS 04/03/2013 DON SWEENEY MD 296.80 MO BIPOLAR NOS 04/03/2013 SHANTAL TOWNSEND PSYD ANN L 296.80 MO BIPOLAR NOS 04/03/2013 SHANTAL TOWNSEND PSYD ANN L 296.80 MO BIPOLAR NOS 04/03/2013 SHANTAL TOWNSEND PSYD ANN L 296.80 MO BIPOLAR NOS 04/03/2013 DISHA LANGFORD APRN 296.80 MO BIPOLAR NOS 04/03/2013 KRISTIAN PRITCHETT ASHLEY L 296.80 MO BIPOLAR NOS 04/03/2013 ANASTASIYA REN DISHA ROMAN 296.80 MO BIPOLAR NOS 04/03/2013 SHANTAL TOWNSEND PSYD ANN L 296.80 MO BIPOLAR NOS 04/03/2013 KRISTIAN PRITCHETT ASHLEY L 296.80 MO BIPOLAR NOS 04/03/2013 KRISTIAN PRITCHETT ASHLEY L 296.80 MO BIPOLAR NOS 04/03/2013 KRISTIAN PRITCHETT ASHLEY L 296.80 MO BIPOLAR NOS 04/03/2013 ANASTASIYA REN DISHA ROMAN 296.80 MO BIPOLAR NOS 04/03/2013 KRISTIAN PRITCHETT ASHLEY L 296.80 MO BIPOLAR NOS 04/03/2013 KRISTIAN PRITCHETT ASHLEY L 296.80 MO BIPOLAR NOS 04/03/2013 MURIEL ERWIN M 296.80 MO BIPOLAR NOS 04/03/2013 KRISTIAN PRITCHETT ASHLEY L 296.80 MO BIPOLAR NOS 04/03/2013 MURIEL ERWIN M 296.80 MO BIPOLAR NOS 04/03/2013 KRISTIAN PRITCHETT ASHLEY L 296.80 MO BIPOLAR NOS 04/03/2013 AJITH ALPINE GUIDE, MARYSOL L 296.80 MO BIPOLAR NOS 07/08/2013 ZAHRA TAMEZ, DON Lebron 380.4 CERUMEN IMPACTION 07/08/2013 ZAHRA TAMEZ, DON Lebron 477.9 ALLERGIC RHINITIS 07/08/2013 ZAHRA TAMEZ, DON Lebron 691.8 ATOPIC DERMATITIS 07/08/2013 ZAHRA TAMEZ, DON Lebron 380.4 CERUMEN IMPACTION 07/08/2013 ZAHRA TAMEZ, DON Lebron 477.9 ALLERGIC RHINITIS 07/08/2013 ZAHRA TAMEZ, DON Lebron 691.8 ATOPIC DERMATITIS 07/08/2013 ZAHRA TAMEZ, DON Lebron 380.4 CERUMEN IMPACTION 07/08/2013 ZAHRA TAMEZ, DON Lebron 477.9 ALLERGIC RHINITIS 07/08/2013 ZAHRA TAMEZ, DON M 691.8 ATOPIC DERMATITIS 07/08/2013 SHANTAL TOWNSEND PSYD ANN L 380.4 CERUMEN IMPACTION 07/08/2013 SHANTAL TOWNSEND PSYD ANN L 477.9 ALLERGIC RHINITIS 07/08/2013 SHANTAL TOWNSEND PSYD ANN L 691.8 ATOPIC DERMATITIS 07/08/2013 SHANTAL TOWNSEND PSYD ANN L 380.4 CERUMEN IMPACTION 07/08/2013 SHANTAL TOWNSEND PSYD ANN L 477.9 ALLERGIC RHINITIS 07/08/2013 SHANTAL TOWNSEND PSYD ANN L 691.8 ATOPIC DERMATITIS 07/08/2013 SHANTAL TOWNSEND PSYD ANN L 380.4 CERUMEN IMPACTION 07/08/2013 SHANTAL TOWNSEND PSYD ANN L 477.9 ALLERGIC RHINITIS 07/08/2013 SHANTAL TOWNSEND PSYD ANN L 691.8 ATOPIC DERMATITIS 07/08/2013 ANASTASIYA REN DISHA ROMAN 380.4 CERUMEN IMPACTION 07/08/2013 DISHA LANGFORD APRN 477.9 ALLERGIC RHINITIS 07/08/2013 DISHA LANGFORD APRN 691.8 ATOPIC DERMATITIS 07/08/2013 SHANTAL TOWNSEND PSYD ANN L 380.4 CERUMEN IMPACTION 07/08/2013 SHANTAL TOWNSEND PSYD ANN L 477.9 ALLERGIC RHINITIS 07/08/2013 SHANTAL TOWNSEND PSYD ANN L 691.8 ATOPIC DERMATITIS 07/08/2013 ANASTASIYA REN, DISHA OWENS 380.4 CERUMEN IMPACTION 07/08/2013 ANASTASIYA BAHENAN, DISHA OWENS 477.9 ALLERGIC RHINITIS 07/08/2013 LANGFORD ALPINE GUIDE, DISHA OWENS 691.8 ATOPIC DERMATITIS 07/08/2013 SHANTAL TOWNSEND PSYD ANN L 380.4 CERUMEN IMPACTION 07/08/2013 SHANTAL TOWNSEND PSYD ANN L 477.9 ALLERGIC RHINITIS 07/08/2013 SHANTAL TOWNSEND PSYD ANN L 691.8 ATOPIC DERMATITIS 07/08/2013 SHANTAL TOWNSEND PSYD ANN L 380.4 CERUMEN IMPACTION 07/08/2013 SHANTAL TOWNSEND PSYD ANN L 477.9 ALLERGIC RHINITIS 07/08/2013 SHANTAL TOWNSEND PSYD ANN L 691.8 ATOPIC DERMATITIS 07/08/2013 SHANTAL TOWNSEND PSYD ANN L 380.4 CERUMEN IMPACTION 07/08/2013 SHANTAL TOWNSEND PSYD ANN L 477.9 ALLERGIC RHINITIS 07/08/2013 SHANTAL TOWNSEND PSYD ANN L 691.8 ATOPIC DERMATITIS 07/08/2013 SHANTAL TOWNSEND PSYD ANN L 380.4 CERUMEN IMPACTION 07/08/2013 SHANTAL TOWNSEND PSYD ANN L 477.9 ALLERGIC RHINITIS 07/08/2013 SHANTAL TOWNSEND PSYD ANN L 691.8 ATOPIC DERMATITIS 07/08/2013 DISHA LANGFORD APRN 380.4 CERUMEN IMPACTION 07/08/2013 ANASTASIYA REN, DISHA OWENS 477.9 ALLERGIC RHINITIS 07/08/2013 LANGFORD ALPINE GUIDE, DISHA OWENS 691.8 ATOPIC DERMATITIS 07/08/2013 SHANTAL TOWNSEND PSYD ANN L 380.4 CERUMEN IMPACTION 07/08/2013 SHANTAL TOWNSEND PSYD ANN L 477.9 ALLERGIC RHINITIS 07/08/2013 SHANTAL TOWNSEND PSYD ANN L 691.8 ATOPIC DERMATITIS 07/08/2013 SHANTAL TOWNSEND PSYD ANN L 380.4 CERUMEN IMPACTION 07/08/2013 SHANTAL TOWNSEND PSYD ANN L 477.9 ALLERGIC RHINITIS 07/08/2013 SHANTAL TOWNSEND PSYD ANN L 691.8 ATOPIC DERMATITIS 07/08/2013 ISHAN ANNIA MURIEL M 380.4 CERUMEN IMPACTION 07/08/2013 ISHAN ANNIA MURIEL M 477.9 ALLERGIC RHINITIS 07/08/2013 ISHAN MAINTENANCE INSPECTOR MURIEL M 691.8 ATOPIC DERMATITIS 07/08/2013 SHANTAL TOWNSEND PSYD ANN L 380.4 CERUMEN IMPACTION 07/08/2013 SHANTAL TOWNSEND PSYD ANN L 477.9 ALLERGIC RHINITIS 07/08/2013 SHANTAL TOWNSEND PSYD ANN L 691.8 ATOPIC DERMATITIS 07/08/2013 ISHAN ANNIA MURIEL M 380.4 CERUMEN IMPACTION 07/08/2013 ISHAN MAINTENANCE INSPECTOR MURIEL M 477.9 ALLERGIC RHINITIS 07/08/2013 ISHAN ANNIA MURIEL M 691.8 ATOPIC DERMATITIS 07/08/2013 SHANTAL TOWNSEND PSYD ANN L 380.4 CERUMEN IMPACTION 07/08/2013 SHANTAL TOWNSEND PSYD ANN L 477.9 ALLERGIC RHINITIS 07/08/2013 SHANTAL TOWNSEND PSYD ANN L 691.8 ATOPIC DERMATITIS 07/08/2013 MADL ALPINE GUIDE, MARYSOL L 380.4 CERUMEN IMPACTION 07/08/2013 MADL ALPINE GUIDE, MARYSOL L 477.9 ALLERGIC RHINITIS 07/08/2013 MADL ALPINE GUIDE, MARYSOL L 691.8 ATOPIC DERMATITIS 07/15/2013 DON SWEENEY MD 593.9 RENAL INSUFFICIENCY 07/15/2013 DON SWEENEY MD 593.9 RENAL INSUFFICIENCY 07/15/2013 SHANTAL TOWNSEND PSYD ANN L 593.9 RENAL INSUFFICIENCY 07/15/2013 SHANTAL TOWNSEND PSYD ANN L 593.9 RENAL INSUFFICIENCY 07/15/2013 SHANTAL TOWNSEND PSYD ANN L 593.9 RENAL INSUFFICIENCY 07/15/2013 DISHA LANGFORD APRN 593.9 RENAL INSUFFICIENCY 07/15/2013 SHANTAL TOWNSEND PSYD ANN L 593.9 RENAL INSUFFICIENCY 07/15/2013 DISHA LANGFORD APRN 593.9 RENAL INSUFFICIENCY 07/15/2013 SHANTAL TOWNSEND PSYD ANN L 593.9 RENAL INSUFFICIENCY 07/15/2013 SHANTAL TOWNSEND PSYD ANN L 593.9 RENAL INSUFFICIENCY 07/15/2013 SHANTAL TOWNSEND PSYD ANN L 593.9 RENAL INSUFFICIENCY 07/15/2013 SHANTAL TOWNSEND PSYD ANN L 593.9 RENAL INSUFFICIENCY 07/15/2013 ANASTASIYA REN DISHA OWENS 593.9 RENAL INSUFFICIENCY 07/15/2013 SHANTAL TOWNSEND PSYD ANN L 593.9 RENAL INSUFFICIENCY 07/15/2013 SHANTAL TOWNSEND PSYD ANN L 593.9 RENAL INSUFFICIENCY 07/15/2013 MURIEL ERWIN 593.9 RENAL INSUFFICIENCY 07/15/2013 SHANTAL TOWNSEND PSYD ANN L 593.9 RENAL INSUFFICIENCY 07/15/2013 MURIEL ERWIN M 593.9 RENAL INSUFFICIENCY 07/15/2013 SHANTAL TOWNSEND PSYD ANN L 593.9 RENAL INSUFFICIENCY 07/15/2013 MARYSOL CANSECO APRN L 593.9 RENAL INSUFFICIENCY 12/15/2013 SHANTAL TOWNSEND PSYD ANN L 692.9 DERMATITIS CONTACT UNSPECIFIED 12/15/2013 SHANTAL TOWNSEND PSYD ANN L 692.9 DERMATITIS CONTACT UNSPECIFIED 12/15/2013 SHANTAL TOWNSEND PSYD ANN L 692.9 DERMATITIS CONTACT UNSPECIFIED 12/15/2013 ANASTASIYA REN DISHA OWENS 692.9 DERMATITIS CONTACT UNSPECIFIED 12/15/2013 SHANTAL TOWNSEND PSYD ANN L 692.9 DERMATITIS CONTACT UNSPECIFIED 12/15/2013 SHANTAL TOWNSEND PSYD ANN L 692.9 DERMATITIS CONTACT UNSPECIFIED 12/15/2013 MURIEL ERWIN M 692.9 DERMATITIS CONTACT UNSPECIFIED 12/15/2013 SHANTAL TOWNSEND PSYD ANN L 692.9 DERMATITIS CONTACT UNSPECIFIED 12/15/2013 MURIEL ERWIN M 692.9 DERMATITIS CONTACT UNSPECIFIED 12/15/2013 SHANTAL TOWNSEND PSYD ANN L 692.9 DERMATITIS CONTACT UNSPECIFIED 12/15/2013 JUAQUIN CANSECO APRNA L 692.9 DERMATITIS CONTACT UNSPECIFIED 09/26/2014 MADNasir ALPINE GUIDE, MARYSOL L 786.2 COUGH 05/17/2015 Ot R41.3 05/17/2015 Ot R41.3 06/01/2015 Ot R41.3 06/14/2015 Ot R41.3 08/22/2015 MARIANA TAMEZ, HERNESTO Morris Ot R13.10 09/12/2015 HERNESTO PEÑA MD Ot R13.10 09/20/2015 Ot E04.1 NONTOXIC SINGLE THYROID NODULE 09/20/2015 Ot R22.1 LOCALIZED SWELLING, MASS AND LUMP, NECK 10/10/2015 Ot E04.1 NONTOXIC SINGLE THYROID NODULE 10/10/2015 Ot R22.1 LOCALIZED SWELLING, MASS AND LUMP, NECK 10/10/2015 HERNESTO PEÑA MD Ot R13.10 DYSPHAGIA, UNSPECIFIED 03/13/2016 HERNESTO PEÑA MD Ot R13.10 DYSPHAGIA, UNSPECIFIED 03/13/2016 Ot E04.1 NONTOXIC SINGLE THYROID NODULE 03/13/2016 Ot R22.1 LOCALIZED SWELLING, MASS AND LUMP, NECK 03/13/2016 Ot R42 DIZZINESS AND GIDDINESS 03/13/2016 Ot R42 DIZZINESS AND GIDDINESS 03/13/2016 Ot R41.0 DISORIENTATION, UNSPECIFIED 03/13/2016 Ot R41.3 OTHER AMNESIA 03/13/2016 Ot R42 DIZZINESS AND GIDDINESS 03/27/2016 Ot R41.0 DISORIENTATION, UNSPECIFIED 03/27/2016 Ot R41.3 OTHER AMNESIA 03/27/2016 Ot R42 DIZZINESS AND GIDDINESS 05/28/2016 Ot 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 05/28/2016 Ot R41.0 DISORIENTATION, UNSPECIFIED 05/28/2016 Ot R41.3 OTHER AMNESIA 05/28/2016 Ot R42 DIZZINESS AND GIDDINESS 06/05/2016 HERNESTO PEÑA MD Ot R13.10 DYSPHAGIA, UNSPECIFIED 06/05/2016 Ot E04.1 NONTOXIC SINGLE THYROID NODULE 06/05/2016 Ot R22.1 LOCALIZED SWELLING, MASS AND LUMP, NECK 06/05/2016 Ot 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 06/05/2016 Ot R41.0 DISORIENTATION, UNSPECIFIED 06/05/2016 Ot R41.3 OTHER AMNESIA 06/05/2016 Ot R42 DIZZINESS AND GIDDINESS 06/05/2016 KALINA TAMEZ, ORIANA Vo Ot J20.9 ACUTE BRONCHITIS, UNSPECIFIED 06/05/2016 KALINA TAMEZ, ORIANA Vo Ot J39.8 OTHER SPECIFIED DISEASES OF UPPER RESPIR 06/05/2016 KALINA TAMEZ, ORIANA Vo Ot R06.02 SHORTNESS OF BREATH 06/22/2016 MARIANA TAMEZ, HERNESTO P Ot R13.10 DYSPHAGIA, UNSPECIFIED 06/22/2016 Ot E04.1 NONTOXIC SINGLE THYROID NODULE 06/22/2016 Ot R22.1 LOCALIZED SWELLING, MASS AND LUMP, NECK 06/22/2016 Ot 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 06/22/2016 Ot R41.0 DISORIENTATION, UNSPECIFIED 06/22/2016 Ot R41.3 OTHER AMNESIA 06/22/2016 Ot R42 DIZZINESS AND GIDDINESS 06/22/2016 TATYANA SANDERS MD Ot J44.9 CHRONIC OBSTRUCTIVE PULMONARY DISEASE, U 06/22/2016 TATYANA SANDERS MD Ot R06.02 SHORTNESS OF BREATH 06/24/2016 TATYANA SANDERS MD Ot J44.9 CHRONIC OBSTRUCTIVE PULMONARY DISEASE, U 06/24/2016 TATYANA SANDERS MD Ot R06.02 SHORTNESS OF BREATH 07/03/2016 JOANN TAMEZ, RAMAKRISHNA Gentile Ot F39 UNSPECIFIED MOOD [AFFECTIVE] DISORDER 07/03/2016 RAMAKRISHNA DAVID MD Ot J44.9 CHRONIC OBSTRUCTIVE PULMONARY DISEASE, U 07/03/2016 RAMAKRISHNA DAVID MD Ot R05 COUGH 07/03/2016 RAMAKRISHNA DAVID MD Ot R09.02 HYPOXEMIA 07/03/2016 RAMAKRISHNA DAVID MD Ot Z87.891 PERSONAL HISTORY OF NICOTINE DEPENDENCE 07/24/2016 SWETHA GLOVER DO Ot E66.9 OBESITY, UNSPECIFIED 07/24/2016 SWETHA GLOVER DO Ot G47.9 SLEEP DISORDER, UNSPECIFIED 07/24/2016 SWETHA GLOVER DO Ot R05 COUGH 07/24/2016 SWETHA GLOVER DO Ot R06.00 DYSPNEA, UNSPECIFIED 07/24/2016 SWETHA GLOVER DO Ot R06.83 SNORING 07/24/2016 SWETHA GLOVER DO Ot E66.9 OBESITY, UNSPECIFIED 07/24/2016 BELEN DO, SWETHA M Ot E66.9 OBESITY, UNSPECIFIED 07/24/2016 BELEN DO, SWETHA M Ot G47.10 HYPERSOMNIA, UNSPECIFIED 07/24/2016 BELEN DO, SWETHA M Ot G47.9 SLEEP DISORDER, UNSPECIFIED 07/24/2016 BELEN DO, SWETHA M Ot R05 COUGH 07/24/2016 BELEN DO, SWETHA M Ot R06.00 DYSPNEA, UNSPECIFIED 07/24/2016 BELEN DO, SWETHA M Ot R06.83 SNORING 08/02/2016 BELEN DO, SWETHA M Ot E66.9 OBESITY, UNSPECIFIED 08/02/2016 BELEN DO, SWETHA M Ot G47.9 SLEEP DISORDER, UNSPECIFIED 08/02/2016 BELEN DO, SWETHA M Ot R05 COUGH 08/02/2016 BLEEN DO, SWETHA M Ot R06.00 DYSPNEA, UNSPECIFIED 08/02/2016 BELEN DO, SWETHA M Ot R06.83 SNORING 08/02/2016 BELEN DOSWETHA M Ot E66.9 OBESITY, UNSPECIFIED 08/02/2016 BELEN DO, SWETHA M Ot G47.9 SLEEP DISORDER, UNSPECIFIED 08/02/2016 BELEN DO, SWETHA M Ot R05 COUGH 08/02/2016 BELEN DO, SWETHA M Ot R06.00 DYSPNEA, UNSPECIFIED 08/02/2016 BELEN DO, SWETHA M Ot R06.83 SNORING 08/16/2016 BELEN DOSWETHA M Ot E66.9 OBESITY, UNSPECIFIED 08/16/2016 BELEN DOSWETHA M Ot G47.9 SLEEP DISORDER, UNSPECIFIED 08/16/2016 BELEN DO, SWETHA M Ot R05 COUGH 08/16/2016 BELEN DO, SWETHA M Ot R06.00 DYSPNEA, UNSPECIFIED 08/16/2016 BELEN DO, SWETHA M Ot R06.83 SNORING 09/12/2016 BELEN DO, SWETHA M Ot E66.9 OBESITY, UNSPECIFIED 09/12/2016 BELEN DO, SWETHA M Ot G47.9 SLEEP DISORDER, UNSPECIFIED 09/12/2016 BELEN DO, SWETHA M Ot R05 COUGH 09/12/2016 BELEN DO, SWETHA M Ot R06.00 DYSPNEA, UNSPECIFIED 09/12/2016 BELEN DO, SWETHA M Ot R06.83 SNORING 09/24/2016 KENNETH BARBRA E ALPINE GUIDE Ot J98.4 OTHER DISORDERS OF LUNG 09/24/2016 KENNETH, BARBRA E ALPINE GUIDE Ot R06.00 DYSPNEA, UNSPECIFIED 09/25/2016 KENNETH, BARBRA E ALPINE GUIDE Ot J98.4 OTHER DISORDERS OF LUNG 09/25/2016 KENNETH, BARBRA E ALPINE GUIDE Ot R06.00 DYSPNEA, UNSPECIFIED 09/25/2016 KENNETH, BARBRA E ALPINE GUIDE Ot J98.4 OTHER DISORDERS OF LUNG 09/25/2016 KENNETH, BARBRA E ALPINE GUIDE Ot R06.00 DYSPNEA, UNSPECIFIED 09/25/2016 KENNETH, BARBRA E ALPINE GUIDE Ot J98.4 OTHER DISORDERS OF LUNG 09/25/2016 KENNETH, BARBRA E ALPINE GUIDE Ot R06.00 DYSPNEA, UNSPECIFIED 10/23/2016 KENNETH, BARBRA E ALPINE GUIDE Ot J98.4 OTHER DISORDERS OF LUNG 10/23/2016 KENNETH BARBRA E ALPINE GUIDE Ot R06.00 DYSPNEA, UNSPECIFIED 11/05/2016 KENNETH, BARBRA E ALPINE GUIDE Ot J98.4 OTHER DISORDERS OF LUNG 11/05/2016 KENNETH, BARBRA E ALPINE GUIDE Ot R06.00 DYSPNEA, UNSPECIFIED 11/21/2016 KENNETH, BARBRA E ALPINE GUIDE Ot J98.4 OTHER DISORDERS OF LUNG 11/21/2016 KENNETH, BARBRA E ALPINE GUIDE Ot R06.00 DYSPNEA, UNSPECIFIED 12/22/2016 KENNETH, BARBRA E ALPINE GUIDE Ot J98.4 OTHER DISORDERS OF LUNG 12/22/2016 KENNETH, BARBRA E ALPINE GUIDE Ot R06.00 DYSPNEA, UNSPECIFIED 12/28/2016 KENNETH, BARBRA E ALPINE GUIDE Ot J98.4 OTHER DISORDERS OF LUNG 12/28/2016 KENNETH, BARBRA E ALPINE GUIDE Ot R06.00 DYSPNEA, UNSPECIFIED 01/16/2017 KENNETH, BARBRA E ALPINE GUIDE Ot J98.4 OTHER DISORDERS OF LUNG 01/16/2017 KENNETH, BARBRA E ALPINE GUIDE Ot R06.00 DYSPNEA, UNSPECIFIED 01/16/2017 KENNETH, BARBRA E ALPINE GUIDE Ot J98.4 OTHER DISORDERS OF LUNG 01/16/2017 KENNETH, BARBRA E ALPINE GUIDE Ot R06.00 DYSPNEA, UNSPECIFIED 01/17/2017 BARBRA COOPER APRN Ot J98.4 OTHER DISORDERS OF LUNG 01/17/2017 BARBRA COOPER APRN Ot R06.00 DYSPNEA, UNSPECIFIED 02/21/2017 BARBRA COOPER ALPINE GUIDE Ot J98.4 OTHER DISORDERS OF LUNG 02/21/2017 BARBRA COOPER ALPINE GUIDE Ot R06.00 DYSPNEA, UNSPECIFIED 03/01/2017 BARBRA COOPER APRN Ot J98.4 OTHER DISORDERS OF LUNG 03/01/2017 BARBRA COOPER APRN Ot R06.00 DYSPNEA, UNSPECIFIED 06/11/2017 JEAN BAPTISTEAHSAN BARBER ALPINE GUIDE Ot E04.2 NONTOXIC MULTINODULAR GOITER 06/11/2017 AHSAN JEAN BAPTISTE APRN Ot R22.1 LOCALIZED SWELLING, MASS AND LUMP, NECK 06/13/2017 MARIANA TAMEZ, HERNESTO Morris Ot R13.10 DYSPHAGIA, UNSPECIFIED 06/13/2017 Ot E04.1 NONTOXIC SINGLE THYROID NODULE 06/13/2017 Ot R22.1 LOCALIZED SWELLING, MASS AND LUMP, NECK 06/13/2017 Ot 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 06/13/2017 Ot R41.0 DISORIENTATION, UNSPECIFIED 06/13/2017 Ot R41.3 OTHER AMNESIA 06/13/2017 Ot R42 DIZZINESS AND GIDDINESS 06/13/2017 SWETHA GLOVER DO Ot E66.9 OBESITY, UNSPECIFIED 06/13/2017 SWETHA GLOVER DO Ot G47.9 SLEEP DISORDER, UNSPECIFIED 06/13/2017 SWETHA GLOVER DO Ot R05 COUGH 06/13/2017 SWETHA GLOVER DO Ot R06.00 DYSPNEA, UNSPECIFIED 06/13/2017 SWETHA GLOVER DO Ot R06.83 SNORING 06/13/2017 BARBRA COOPER APRN Ot J98.4 OTHER DISORDERS OF LUNG 06/13/2017 BARBRA COOPER APRN Ot R06.00 DYSPNEA, UNSPECIFIED 06/13/2017 JEAN BAPTISTEAHSAN BARBER ALPINE GUIDE Ot E04.2 NONTOXIC MULTINODULAR GOITER 06/13/2017 AHSAN JEAN BAPTISTE APRN Ot R22.1 LOCALIZED SWELLING, MASS AND LUMP, NECK 06/30/2017 AHSAN JEAN BAPTISTE APRN Ot E04.2 NONTOXIC MULTINODULAR GOITER 06/30/2017 AHSAN JEAN BAPTISTE APRN Ot R22.1 LOCALIZED SWELLING, MASS AND LUMP, NECK 07/04/2017 MADMARYSOL Best ELECTRODYNAMICIST Ot R22.1 LOCALIZED SWELLING, MASS AND LUMP, NECK 08/04/2017 MADLMARYSOL ELECTRODYNAMICIST Ot R22.1 LOCALIZED SWELLING, MASS AND LUMP, NECK 10/17/2017 KANDI ARCHER APRN Ot F20.9 SCHIZOPHRENIA, UNSPECIFIED 10/17/2017 KANDI ARCHER APRN Ot F31.9 BIPOLAR DISORDER, UNSPECIFIED 10/17/2017 KANDI ARCHER APRN Ot F41.9 ANXIETY DISORDER, UNSPECIFIED 10/17/2017 KANDI ARCHER APRN Ot F43.10 POST-TRAUMATIC STRESS DISORDER, UNSPECIF 10/17/2017 KANDI ARCHER APRN Ot G43.909 MIGRAINE, UNSP, NOT INTRACTABLE, WITHOUT 10/17/2017 KANDI ARCHER APRN Ot J44.1 CHRONIC OBSTRUCTIVE PULMONARY DISEASE W 10/17/2017 KANDI ARCHER APRN Ot K21.9 GASTRO-ESOPHAGEAL REFLUX DISEASE WITHOUT 10/17/2017 KANDI ARCHER APRN Ot K59.09 OTHER CONSTIPATION 10/17/2017 KANDI ARCHER APRN Ot R06.00 DYSPNEA, UNSPECIFIED 10/17/2017 KANDI ARCHER APRN Ot Z79.52 PRISON (CURRENT) USE OF SYSTEMIC STER 10/17/2017 KANDI ARCHER APRN Ot 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 10/17/2017 KANDI ARCHER APRN Ot Z86.79 PERSONAL HISTORY OF OTHER DISEASES OF 10/17/2017 KANDI ARCHER APRN Ot Z87.01 PERSONAL HISTORY OF PNEUMONIA (RECURRENT 10/17/2017 KANDI ARCHER APRN Ot Z87.19 PERSONAL HISTORY OF OTHER DISEASES OF TH 10/17/2017 KANDI ARCHER APRN Ot Z87.448 PERSONAL HISTORY OF OTHER DISEASES OF 10/17/2017 MARIANA TAMEZ, HERNESTO Morris Ot R13.10 DYSPHAGIA, UNSPECIFIED 10/17/2017 Ot E04.1 NONTOXIC SINGLE THYROID NODULE 10/17/2017 Ot R22.1 LOCALIZED SWELLING, MASS AND LUMP, NECK 10/17/2017 Ot 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 10/17/2017 Ot R41.0 DISORIENTATION, UNSPECIFIED 10/17/2017 Ot R41.3 OTHER AMNESIA 10/17/2017 Ot R42 DIZZINESS AND GIDDINESS 10/17/2017 SWTEHA GLOVER DO Ot E66.9 OBESITY, UNSPECIFIED 10/17/2017 SWETHA GLOVER DO Ot G47.9 SLEEP DISORDER, UNSPECIFIED 10/17/2017 SWETHA GLOVER DO Ot R05 COUGH 10/17/2017 SWETHA GLOVER DO Ot R06.00 DYSPNEA, UNSPECIFIED 10/17/2017 SWETHA GLOVER DO Ot R06.83 SNORING 10/17/2017 BARBRA COOPER APRN Ot J98.4 OTHER DISORDERS OF LUNG 10/17/2017 BARBRA COOEPR APRN Ot R06.00 DYSPNEA, UNSPECIFIED 10/17/2017 AHSAN JEAN BAPTISTE APRN Ot E04.2 NONTOXIC MULTINODULAR GOITER 10/17/2017 AHSAN JEAN BAPTISTE APRN Ot R22.1 LOCALIZED SWELLING, MASS AND LUMP, NECK 10/17/2017 AJITHMARYSOL Nasir ELECTRODYNAMICIST Ot R22.1 LOCALIZED SWELLING, MASS AND LUMP, NECK 10/20/2017 KANDI ARCHER APRN Ot F20.9 SCHIZOPHRENIA, UNSPECIFIED 10/20/2017 KANDI ARCHER APRN Ot F31.9 BIPOLAR DISORDER, UNSPECIFIED 10/20/2017 KANDI ARCHER APRN Ot F41.9 ANXIETY DISORDER, UNSPECIFIED 10/20/2017 KANDI ARCHER APRN Ot F43.10 POST-TRAUMATIC STRESS DISORDER, UNSPECIF 10/20/2017 KANDI ARCHER APRN Ot G43.909 MIGRAINE, UNSP, NOT INTRACTABLE, WITHOUT 10/20/2017 KANDI ARCHER APRN Ot J44.1 CHRONIC OBSTRUCTIVE PULMONARY DISEASE W 10/20/2017 KANDI ARCHER APRN Ot K21.9 GASTRO-ESOPHAGEAL REFLUX DISEASE WITHOUT 10/20/2017 KANDI ARCHER APRN Ot K59.09 OTHER CONSTIPATION 10/20/2017 KANDI ARCHER APRN Ot R06.00 DYSPNEA, UNSPECIFIED 10/20/2017 KANDI ARCHER APRN Ot Z79.52 PRISON (CURRENT) USE OF SYSTEMIC STER 10/20/2017 KANDI ARCHER APRN Ot 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 10/20/2017 KANDI ARCHER APRN Ot Z86.79 PERSONAL HISTORY OF OTHER DISEASES OF TH 10/20/2017 KANDI ARCHER APRN Ot Z87.01 PERSONAL HISTORY OF PNEUMONIA (RECURRENT 10/20/2017 KANDI ARCHER APRN Ot Z87.19 PERSONAL HISTORY OF OTHER DISEASES OF TH 10/20/2017 KANDI ARCHER APRN Ot Z87.448 PERSONAL HISTORY OF OTHER DISEASES OF UR 10/20/2017 KANDI ARCHER APRN Ot F20.9 SCHIZOPHRENIA, UNSPECIFIED 10/20/2017 KANDI ARCHER APRN Ot F31.9 BIPOLAR DISORDER, UNSPECIFIED 10/20/2017 KANDI ARCHER APRN Ot F41.9 ANXIETY DISORDER, UNSPECIFIED 10/20/2017 KANDI ARCHER APRN Ot F43.10 POST-TRAUMATIC STRESS DISORDER, UNSPECIF 10/20/2017 KANDI ARCHER APRN Ot G43.909 MIGRAINE, UNSP, NOT INTRACTABLE, WITHOUT 10/20/2017 KANDI ARCHER APRN Ot J44.1 CHRONIC OBSTRUCTIVE PULMONARY DISEASE W 10/20/2017 KANDI ARCHER APRN Ot K21.9 GASTRO-ESOPHAGEAL REFLUX DISEASE WITHOUT 10/20/2017 KANDI ARCHER APRN Ot K59.09 OTHER CONSTIPATION 10/20/2017 KANDI ARCHER APRN Ot R06.00 DYSPNEA, UNSPECIFIED 10/20/2017 KANDI ARCHER APRN Ot 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 10/20/2017 KANDI ARCHER APRN Ot 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 10/20/2017 KANDI ARCHER APRN Ot Z86.79 PERSONAL HISTORY OF OTHER DISEASES OF TH 10/20/2017 KANDI ARCHER APRN Ot Z87.01 PERSONAL HISTORY OF PNEUMONIA (RECURRENT 10/20/2017 KANDI ARCHER APRN Ot Z87.19 PERSONAL HISTORY OF OTHER DISEASES OF TH 10/20/2017 KANDI ARCHER APRN Ot Z87.448 PERSONAL HISTORY OF OTHER DISEASES OF UR Procedures Code [place] [address] PSYTX PT&/FAMILY 45 MINUTES 03/03/2013 72106 PSYTX PT&/FAMILY 30 MINUTES 04/05/2013 51429 PSYTX PT&/FAMILY 45 MINUTES 04/05/2013 83986 PSYTX PT&/FAMILY 45 MINUTES 04/25/2013 33357 PSYTX PT&/FAMILY 30 MINUTES 05/30/2013 16774 PSYTX PT&/FAMILY 30 MINUTES 05/31/2013 09843 PSYTX PT&/FAMILY 30 MINUTES 06/14/2013 90330 ROUTINE VENIPUNCTURE 07/15/2013 20626 A1C (IN-HOUSE) 07/15/2013 68374 CBC 07/15/2013 [id number] GFR CALC (RESULT ONLY) 07/15/2013 67032 CMP 07/15/2013 04535 LIPID PANEL 07/15/2013 93277 TSH 07/15/2013 20932 UA W/MICROSCOPY 07/20/2013 63050 URINE SODIUM, RANDOM 07/20/2013 PRO/CRE URINE PROTEIN TO CREATNINE RATIO 07/20/2013 33805 US RENAL ULTRASOUND, COMP 07/22/2013 48710 URINE CREATININE (RANDOM) 07/22/2013 55201 PSYTX PT&/FAMILY 45 MINUTES 08/06/2013 87313 PSYTX PT&/FAMILY 45 MINUTES 09/02/2013 88186 PSYTX PT&/FAMILY 45 MINUTES 09/20/2013 43299 PSYTX PT&/FAMILY 45 MINUTES 10/20/2013 03196 PSYTX PT&/FAMILY 45 MINUTES 12/01/2013 84246 THERAPUTIC INJ SQ/IM 12/15/2013 J2930 SOLUMEDROL INJ 12/15/2013 07886 PSYTX PT&/FAMILY 30 MINUTES 12/15/2013 84993 PSYTX PT&/FAMILY 30 MINUTES 12/29/2013 28806 PSYTX PT&/FAMILY 30 MINUTES 01/07/2014 91327 PSYTX PT&/FAMILY 45 MINUTES 02/04/2014 35764 PSYTX PT&/FAMILY 45 MINUTES 02/18/2014 04284 PSYTX PT&/FAMILY 45 MINUTES 06/14/2014 17566 PSYTX PT&/FAMILY 45 MINUTES 09/12/2014 75596 XRAY CHEST 2 VIEW 09/26/2014 Results Test Result Range Complete blood count (CBC) with automated white blood cell (WBC) differential - 06/05/16 11:50 Blood leukocytes automated count (number/volume) 9.0 10*3/uL 4.3-11.0 Blood erythrocytes automated count (number/volume) 4.44 10*6/uL 4.35-5.85 Venous blood hemoglobin measurement (mass/volume) 12.9 g/dL 11.5-16.0 Blood hematocrit (volume fraction) 40 % 35-52 Automated erythrocyte mean corpuscular volume 90 [foz_us] 80-99 Automated erythrocyte mean corpuscular hemoglobin (mass per erythrocyte) 29 pg 25-34 Automated erythrocyte mean corpuscular hemoglobin concentration measurement ( mass/volume) 32 g/dL 32-36 Automated erythrocyte distribution width ratio 14.7 % 10.0-14.5 Automated blood platelet count (count/volume) 202 10*3/uL 130-400 Automated blood platelet mean volume measurement 10.1 [foz_us] 7.4-10.4 Automated blood neutrophils/100 leukocytes 71 % 42-75 Automated blood lymphocytes/100 leukocytes 21 % 12-44 Blood monocytes/100 leukocytes 5 % 0-12 Automated blood eosinophils/100 leukocytes 3 % 0-10 Automated blood basophils/100 leukocytes 0 % 0-10 Blood neutrophils automated count (number/volume) 6.3 10*3 1.8-7.8 Blood lymphocytes automated count (number/volume) 1.9 10*3 1.0-4.0 Blood monocytes automated count (number/volume) 0.5 10*3 0.0-1.0 Automated eosinophil count 0.3 10*3/uL 0.0-0.3 Automated blood basophil count (count/volume) 0.0 10*3/uL 0.0-0.1 Fibrin D-dimer FEU measurement in platelet poor plasma (mass/volume) - 11:50 Fibrin D-dimer FEU measurement in platelet poor plasma (mass/volume) 0.66 ug/mL 0.00-0.49 Comprehensive metabolic panel - 06/05/16 11:50 Serum or plasma sodium measurement (moles/volume) 141 mmol/L 135-145 Serum or plasma potassium measurement (moles/volume) 3.9 mmol/L 3.6-5.0 Serum or plasma chloride measurement (moles/volume) 111 mmol/L 98-107 Carbon dioxide 22 mmol/L 21-32 Serum or plasma anion gap determination (moles/volume) 8 mmol/L 5-14 Serum or plasma urea nitrogen measurement (mass/volume) 15 mg/dL 7-18 Serum or plasma creatinine measurement (mass/volume) 0.96 mg/dL 0.60-1.30 Serum or plasma urea nitrogen/creatinine mass ratio 16 NRG Serum or plasma creatinine measurement with calculation of estimated glomerular filtration rate 60 NRG Serum or plasma glucose measurement (mass/volume) 133 mg/dL 70-105 Serum or plasma calcium measurement (mass/volume) 10.1 mg/dL 8.5-10.1 Serum or plasma total bilirubin measurement (mass/volume) 0.2 mg/dL 0.1-1.0 Serum or plasma alkaline phosphatase measurement (enzymatic activity/volume) 101 U/L 40-136 Serum or plasma aspartate aminotransferase measurement (enzymatic activity/ volume) 19 U/L 5-34 Serum or plasma alanine aminotransferase measurement (enzymatic activity/volume ) 20 U/L 0-55 Serum or plasma protein measurement (mass/volume) 7.3 g/dL 6.4-8.2 Serum or plasma albumin measurement (mass/volume) 3.8 g/dL 3.2-4.5 Magnesium - 06/05/16 11:50 Magnesium 2.1 mg/dL 1.8-2.4 Serum or plasma troponin i.cardiac measurement (mass/volume) - 06/05/16 11:50 Serum or plasma troponin i.cardiac measurement (mass/volume) < ng/ mL <0.30 Serum or plasma C reactive protein measurement (mass/volume) - 06/05/16 11:50 Serum or plasma C reactive protein measurement (mass/volume) 1.87 mg /dL 0.00-0.50 Complete blood count (CBC) with automated white blood cell (WBC) differential - 06/22/16 10:30 Blood leukocytes automated count (number/volume) 7.3 10*3/uL 4.3-11.0 Blood erythrocytes automated count (number/volume) 3.87 10*6/uL 4.35-5.85 Venous blood hemoglobin measurement (mass/volume) 11.4 g/dL 11.5-16.0 Blood hematocrit (volume fraction) 35 % 35-52 Automated erythrocyte mean corpuscular volume 91 [foz_us] 80-99 Automated erythrocyte mean corpuscular hemoglobin (mass per erythrocyte) 30 pg 25-34 Automated erythrocyte mean corpuscular hemoglobin concentration measurement ( mass/volume) 33 g/dL 32-36 Automated erythrocyte distribution width ratio 14.7 % 10.0-14.5 Automated blood platelet count (count/volume) 169 10*3/uL 130-400 Automated blood platelet mean volume measurement 10.3 [foz_us] 7.4-10.4 Automated blood neutrophils/100 leukocytes 67 % 42-75 Automated blood lymphocytes/100 leukocytes 24 % 12-44 Blood monocytes/100 leukocytes 5 % 0-12 Automated blood eosinophils/100 leukocytes 5 % 0-10 Automated blood basophils/100 leukocytes 0 % 0-10 Blood neutrophils automated count (number/volume) 4.9 10*3 1.8-7.8 Blood lymphocytes automated count (number/volume) 1.7 10*3 1.0-4.0 Blood monocytes automated count (number/volume) 0.3 10*3 0.0-1.0 Automated eosinophil count 0.4 10*3/uL 0.0-0.3 Automated blood basophil count (count/volume) 0.0 10*3/uL 0.0-0.1 Comprehensive metabolic panel - 06/22/16 10:30 Serum or plasma sodium measurement (moles/volume) 144 mmol/L 135-145 Serum or plasma potassium measurement (moles/volume) 3.6 mmol/L 3.6-5.0 Serum or plasma chloride measurement (moles/volume) 113 mmol/L 98-107 Carbon dioxide 20 mmol/L 21-32 Serum or plasma anion gap determination (moles/volume) 11 mmol/L 5-14 Serum or plasma urea nitrogen measurement (mass/volume) 15 mg/dL 7-18 Serum or plasma creatinine measurement (mass/volume) 0.85 mg/dL 0.60-1.30 Serum or plasma urea nitrogen/creatinine mass ratio 18 NRG Serum or plasma creatinine measurement with calculation of estimated glomerular filtration rate > NRG Serum or plasma glucose measurement (mass/volume) 92 mg/dL 70-105 Serum or plasma calcium measurement (mass/volume) 9.5 mg/dL 8.5-10.1 Serum or plasma total bilirubin measurement (mass/volume) 0.1 mg/dL 0.1-1.0 Serum or plasma alkaline phosphatase measurement (enzymatic activity/volume) 85 U/L 40-136 Serum or plasma aspartate aminotransferase measurement (enzymatic activity/ volume) 21 U/L 5-34 Serum or plasma alanine aminotransferase measurement (enzymatic activity/volume ) 25 U/L 0-55 Serum or plasma protein measurement (mass/volume) 5.9 g/dL 6.4-8.2 Serum or plasma albumin measurement (mass/volume) 3.3 g/dL 3.2-4.5 Complete blood count (CBC) with automated white blood cell (WBC) differential - 07/02/16 11:48 Blood leukocytes automated count (number/volume) 7.6 10*3/uL 4.3-11.0 Blood erythrocytes automated count (number/volume) 4.35 10*6/uL 4.35-5.85 Venous blood hemoglobin measurement (mass/volume) 12.6 g/dL 11.5-16.0 Blood hematocrit (volume fraction) 39 % 35-52 Automated erythrocyte mean corpuscular volume 90 [foz_us] 80-99 Automated erythrocyte mean corpuscular hemoglobin (mass per erythrocyte) 29 pg 25-34 Automated erythrocyte mean corpuscular hemoglobin concentration measurement ( mass/volume) 32 g/dL 32-36 Automated erythrocyte distribution width ratio 14.9 % 10.0-14.5 Automated blood platelet count (count/volume) 255 10*3/uL 130-400 Automated blood platelet mean volume measurement 11.3 [foz_us] 7.4-10.4 Automated blood neutrophils/100 leukocytes 62 % 42-75 Automated blood lymphocytes/100 leukocytes 20 % 12-44 Blood monocytes/100 leukocytes 6 % 0-12 Automated blood eosinophils/100 leukocytes 11 % 0-10 Automated blood basophils/100 leukocytes 0 % 0-10 Blood neutrophils automated count (number/volume) 4.7 10*3 1.8-7.8 Blood lymphocytes automated count (number/volume) 1.5 10*3 1.0-4.0 Blood monocytes automated count (number/volume) 0.5 10*3 0.0-1.0 Automated eosinophil count 0.8 10*3/uL 0.0-0.3 Automated blood basophil count (count/volume) 0.0 10*3/uL 0.0-0.1 Comprehensive metabolic panel - 07/02/16 11:48 Serum or plasma sodium measurement (moles/volume) 141 mmol/L 135-145 Serum or plasma potassium measurement (moles/volume) 4.8 mmol/L 3.6-5.0 Serum or plasma chloride measurement (moles/volume) 112 mmol/L 98-107 Carbon dioxide 22 mmol/L 21-32 Serum or plasma anion gap determination (moles/volume) 7 mmol/L 5-14 Serum or plasma urea nitrogen measurement (mass/volume) 14 mg/dL 7-18 Serum or plasma creatinine measurement (mass/volume) 0.83 mg/dL 0.60-1.30 Serum or plasma urea nitrogen/creatinine mass ratio 17 NRG Serum or plasma creatinine measurement with calculation of estimated glomerular filtration rate > NRG Serum or plasma glucose measurement (mass/volume) 99 mg/dL 70-105 Serum or plasma calcium measurement (mass/volume) 9.7 mg/dL 8.5-10.1 Serum or plasma total bilirubin measurement (mass/volume) 0.2 mg/dL 0.1-1.0 Serum or plasma alkaline phosphatase measurement (enzymatic activity/volume) 85 U/L 40-136 Serum or plasma aspartate aminotransferase measurement (enzymatic activity/ volume) 27 U/L 5-34 Serum or plasma alanine aminotransferase measurement (enzymatic activity/volume ) 23 U/L 0-55 Serum or plasma protein measurement (mass/volume) 6.9 g/dL 6.4-8.2 Serum or plasma albumin measurement (mass/volume) 3.7 g/dL 3.2-4.5 Magnesium - 07/02/16 11:48 Magnesium 2.4 mg/dL 1.8-2.4 Serum or plasma troponin i.cardiac measurement (mass/volume) - 07/02/16 11:48 Serum or plasma troponin i.cardiac measurement (mass/volume) < ng/ mL <0.30 Arterial blood gas measurement - 07/02/16 13:42 Blood pCO2 44 mm[Hg] 35-45 Blood pO2 73 mm[Hg] 79-93 Arterial blood bicarbonate measurement (moles/volume) 22 mmol/L 23-27 Arterial blood base excess by calculation -3.6 mmol/L - 2.5-2.5 Arterial blood oxygen saturation measurement 95 % 94-100 * Inhaled oxygen flow rate ROOM AIR NRG Arterial blood pH measurement with patient temperature correction 7.32 7.37-7.43 Arterial blood carbon dioxide, total measurement (moles/volume) 23.8 mmol/L 21.0-31.0 Body site LT RADIAL NRG Assessment of wrist artery patency prior to arterial puncture YES- POS NRG Setting of ventilation mode NO NRG Measurement of body temperature 98.3 NRG Fibrin D-dimer FEU measurement in platelet poor plasma (mass/volume) - 14:31 Fibrin D-dimer FEU measurement in platelet poor plasma (mass/volume) 0.52 ug/mL 0.00-0.49 Serum or plasma lithium measurement (moles/volume) - 07/02/16 14:31 BNP level < pg/mL <100.0 Influenza virus A and B antigen detection - 07/02/16 15:55 FLU RESULT NEGATIVE FOR INFLUENZA A AND B ANTIGENS BY IA NRG CBC With Differential/Platelet - 01/23/17 08:33 WBC 5.2 x10E3/uL 3.4-10.8 RBC 4.11 x10E6/uL 3.77-5.28 Hemoglobin 11.8 g/dL 11.1-15.9 Hematocrit 37.4 % 34.0-46.6 MCV 91 fL 79-97 MCH 28.7 pg 26.6-33.0 MCHC 31.6 g/dL 31.5-35.7 RDW 15.9 % 12.3-15.4 Platelets 187 x10E3/uL 150-379 Neutrophils 60 % Lymphs 33 % Monocytes 5 % Eos 2 % Basos 0 % Neutrophils (Absolute) 3.1 x10E3/uL 1.4-7.0 Lymphs (Absolute) 1.7 x10E3/uL 0.7-3.1 Monocytes(Absolute) 0.3 x10E3/uL 0.1-0.9 Eos (Absolute) 0.1 x10E3/uL 0.0-0.4 Baso (Absolute) 0.0 x10E3/uL 0.0-0.2 Immature Granulocytes 0 % Immature Grans (Abs) 0.0 x10E3/uL 0.0-0.1 Comp. Metabolic Panel (14) - 01/23/17 08:33 Glucose, Serum 94 mg/dL 65-99 BUN 17 mg/dL 6-24 Creatinine, Serum 1.00 mg/dL 0.57-1.00 eGFR If NonAfricn Am 62 mL/min/1.73 >59 eGFR If Africn Am 72 mL/min/1.73 >59 BUN/Creatinine Ratio 17 9-23 Sodium, Serum 142 mmol/L 134-144 Potassium, Serum 4.1 mmol/L 3.5-5.2 Chloride, Serum 106 mmol/L 96-106 Carbon Dioxide, Total 21 mmol/L 18-29 Calcium, Serum 10.1 mg/dL 8.7-10.2 Protein, Total, Serum 6.4 g/dL 6.0-8.5 Albumin, Serum 3.8 g/dL 3.5-5.5 Globulin, Total 2.6 g/dL 1.5-4.5 A/G Ratio 1.5 1.2-2.2 Bilirubin, Total <0.2 mg/dL 0.0-1.2 Alkaline Phosphatase, S 93 IU/L 39-117 AST (SGOT) 17 IU/L 0-40 ALT (SGPT) 14 IU/L 0-32 Lipid Panel - 01/23/17 08:33 Cholesterol, Total 191 mg/dL 100-199 Triglycerides 208 mg/dL 0-149 HDL Cholesterol 75 mg/dL >39 VLDL Cholesterol Aleks 42 mg/dL 5-40 LDL Cholesterol Calc 74 mg/dL 0-99 CMP - 06/11/17 09:44 GLUCOSE 119 mg/dL 65-99 UREA NITROGEN (BUN) 21 mg/dL 7-25 CREATININE 0.79 mg/dL 0.50-1.05 eGFR NON-AFR. CAMBODIAN 83 mL/min/1.73m2 > OR=60 eGFR 96 mL/min/1.73m2 > OR=60 BUN/CREATININE RATIO NOT APPLICABLE (calc) 6-22 SODIUM 139 mmol/L 135-146 POTASSIUM 4.4 mmol/L 3.5-5.3 CHLORIDE 103 mmol/L 98-110 CARBON DIOXIDE 29 mmol/L 20-31 CALCIUM 10.0 mg/dL 8.6-10.4 PROTEIN, TOTAL 6.6 g/dL 6.1-8.1 ALBUMIN 3.5 g/dL 3.6-5.1 GLOBULIN 3.1 g/dL (calc) 1.9-3.7 ALBUMIN/GLOBULIN RATIO 1.1 (calc) 1.0-2.5 BILIRUBIN, TOTAL 0.2 mg/dL 0.2-1.2 ALKALINE PHOSPHATASE 88 U/L 33-130 AST 16 U/L 10-35 ALT 15 U/L 6-29 CBC - 06/11/17 09:44 WHITE BLOOD CELL COUNT 5.4 Thousand/uL 3.8-10.8 RED BLOOD CELL COUNT 4.23 Million/uL 3.80-5.10 HEMOGLOBIN 12.4 g/dL 11.7-15.5 HEMATOCRIT 38.7 % 35.0-45.0 MCV 91.5 fL 80.0-100.0 MCH 29.3 pg 27.0-33.0 MCHC 32.0 g/dL 32.0-36.0 RDW 13.6 % 11.0-15.0 PLATELET COUNT 200 Thousand/uL 140-400 MPV 10.7 fL 7.5-12.5 ABSOLUTE NEUTROPHILS 2927 cells/uL 3736-6688 ABSOLUTE LYMPHOCYTES 1906 cells/uL 850-3900 ABSOLUTE MONOCYTES 340 cells/uL 200-950 ABSOLUTE EOSINOPHILS 178 cells/uL 15-500 ABSOLUTE BASOPHILS 49 cells/uL 0-200 NEUTROPHILS 54.2 % NRG LYMPHOCYTES 35.3 % NRG MONOCYTES 6.3 % NRG EOSINOPHILS 3.3 % NRG BASOPHILS 0.9 % NRG CMP - 07/16/17 10:55 GLUCOSE 128 mg/dL 65-99 UREA NITROGEN (BUN) 16 mg/dL 7-25 CREATININE 0.82 mg/dL 0.50-1.05 eGFR NON-AFR. CAMBODIAN 79 mL/min/1.73m2 > OR=60 eGFR 91 mL/min/1.73m2 > OR=60 BUN/CREATININE RATIO NOT APPLICABLE (calc) 6-22 SODIUM 137 mmol/L 135-146 POTASSIUM 3.8 mmol/L 3.5-5.3 CHLORIDE 100 mmol/L 98-110 CARBON DIOXIDE 31 mmol/L 20-31 CALCIUM 9.8 mg/dL 8.6-10.4 PROTEIN, TOTAL 6.6 g/dL 6.1-8.1 ALBUMIN 3.6 g/dL 3.6-5.1 GLOBULIN 3.0 g/dL (calc) 1.9-3.7 ALBUMIN/GLOBULIN RATIO 1.2 (calc) 1.0-2.5 BILIRUBIN, TOTAL 0.2 mg/dL 0.2-1.2 ALKALINE PHOSPHATASE 81 U/L 33-130 AST 15 U/L 10-35 ALT 14 U/L 6-29 Encounters ACCT No. Visit Date/Time Discharge Status Pt. Type Provider Facility Loc./Unit Complaint [id number] 09/26/2014 12:36:00 09/26/2014 23:59:59 CLS Outpatient MARYSOL CANSECO APRN [id number] 09/12/2014 07:55:00 09/12/2014 23:59:59 CLS Outpatient SHANTAL TOWNSEND PSYD [id number] 07/15/2014 09:56:00 07/15/2014 23:59:59 CLS Outpatient ISHANMURIEL MASON [id number] 06/14/2014 12:47:00 06/14/2014 23:59:59 CLS Outpatient SHANTAL TOWNSEND PSYD [id number] 05/16/2014 10:23:00 05/16/2014 23:59:59 CLS Outpatient ISHAN ANNIA MURIEL M [id number] 02/18/2014 14:55:00 02/18/2014 23:59:59 CLS Outpatient SHANTAL TOWNSEND PSYD [id number] 02/04/2014 14:57:00 02/04/2014 23:59:59 CLS Outpatient SHANTAL TOWNSEND PSYD [id number] 02/02/2014 14:47:00 02/02/2014 23:59:59 CLS Outpatient DISHA LANGFORD APRN [id number] 01/07/2014 13:47:00 01/07/2014 23:59:59 CLS Outpatient SHANTAL TOWNSEND PSYD [id number] 12/29/2013 16:29:00 12/29/2013 23:59:59 CLS Outpatient SHANTAL TOWNSEND PSYD [id number] 12/15/2013 15:07:00 12/15/2013 23:59:59 CLS Outpatient SHANTAL TOWNSEND PSYD [id number] 12/01/2013 13:46:00 12/01/2013 23:59:59 CLS Outpatient SHANTAL TOWNSEND PSYD [id number] 10/29/2013 09:31:00 10/29/2013 23:59:59 CLS Outpatient DISHA LANGFORD APRN [id number] 10/20/2013 08:48:00 10/20/2013 23:59:59 CLS Outpatient SHANTAL TOWNSEND PSYD [id number] 09/30/2013 14:50:00 09/30/2013 23:59:59 CLS Outpatient DISHA LANGFORD APRN [id number] 09/20/2013 14:51:00 09/20/2013 23:59:59 CLS Outpatient SHANTAL TOWNSEND PSYD [id number] 09/02/2013 13:36:00 09/02/2013 23:59:59 CLS Outpatient SHANTAL TOWNSEND PSYD L [id number] 08/06/2013 08:56:00 08/06/2013 23:59:59 CLS Outpatient SHANTAL TOWNSEND PSYD [id number] 07/19/2013 17:56:00 07/19/2013 23:59:59 CLS Outpatient DON SWEENEY MD [id number] 07/15/2013 08:30:00 07/15/2013 23:59:59 CLS Outpatient DON SWEENEY MD [id number] 07/08/2013 14:22:00 07/08/2013 23:59:59 CLS Outpatient DON SWEENEY MD [id number] 06/11/2013 15:21:00 06/11/2013 23:59:59 CLS Outpatient MERCEDES MEAL ATTENDANTGRAZYNA [id number] 05/14/2013 15:56:00 05/14/2013 23:59:59 CLS Outpatient MERCEDES GRAZYNA GROSS [id number] 04/16/2013 15:59:00 04/16/2013 23:59:59 CLS Outpatient MERCEDES MEAL ATTENDANTGRAZYNA D [id number] 04/03/2013 13:00:00 04/03/2013 23:59:59 CLS Outpatient DISHA LANGFORD APRN [id number] 03/02/2013 15:49:00 03/02/2013 23:59:59 CLS Outpatient MERCEDES MEAL ATTENDANTGRAZYNA D [id number] 01/21/2013 13:51:00 01/21/2013 23:59:59 [place] [id number] 12/24/2017 16:00:00 12/24/2017 23:59:59 CLS [facility] [id number] 07/16/2017 09:40:00 Document Registration [id number] 06/11/2017 08:40:00 Document Registration [id number] 01/24/2017 11:08:00 Document Registration [id number] 10/17/2017 12:01:00 10/17/2017 14:31:00 DIS Emergency KANDI ARCHER ALPINE GUIDE [facility] ER DIFFICULTY BREATHING [id number] 06/13/2017 12:57:00 06/13/2017 23:59:59 CLS Outpatient MARYSOL CANSECO ELECTRODYNAMICIST [facility] RAD LOCALIZED SWELLING, MASS OR LUMP OF NECK [id number] 05/19/2017 14:39:00 05/19/2017 23:59:59 CLS Outpatient AHSAN JEAN BAPTISTE ALPINE GUIDE [facility] RAD R22.1 LOCALIZED SWELLING,MASS OR LUMP OF NECK [id number] 03/02/2017 10:15:00 03/02/2017 23:59:59 CLS Preadmit BARBRA COOPER APRN [facility] PULM R06.00 [id number] 02/11/2017 09:00:00 03/01/2017 00:01:00 DIS Outpatient BARBRA COOPER ALPINE GUIDE [facility] PUL R06.00 [id number] 12/17/2016 09:00:00 12/22/2016 00:01:00 DIS Outpatient BARBRA COOPER ALPINE GUIDE [facility] PUL R06.00 [id number] 07/24/2016 14:00:00 07/24/2016 14:43:00 DIS Outpatient SWETHA GLOVER DO [facility] SLEEP SNORING, SLEEP DISTURBANCE, OBESITY [id number] 07/22/2016 15:19:00 07/22/2016 23:59:59 CLS Outpatient SWETHA GLOVER DO [facility] RT DYSPNEA AND RESP. ABNORMALITIES,SLEEP DISTURBANCES [id number] 07/02/2016 15:44:00 07/03/2016 12:25:00 DIS Inpatient RAMAKRISHNA DAVID MD [facility] 4TH OBSTRUCTIVE AIRWAY DISEASE WITH HYPOXIA [id number] 06/22/2016 10:16:00 06/22/2016 12:40:00 DIS Emergency TATYANA SANDERS MD [facility] ER SOA [id number] 06/05/2016 11:22:00 06/05/2016 15:13:00 DIS Emergency KALINA TAMEZ, ORIANA Vo [facility] ER SOA [id number] 08/21/2015 10:49:00 08/21/2015 23:59:59 CLS Outpatient MARIANA TAMEZ, HERNESTO Morris [facility] RAD DYSPHAGIA [id number] 03/12/2016 09:15:00 Document Registration [id number] 08/31/2015 09:56:00 Document Registration [id number] 05/10/2015 11:19:00 Document Registration
[2018-02-03] MEDS ORDERED: MIDAZOLAM 2 MG/2 ML (VERSED) VIAL ONE (10:37)
[2018-02-03] MEDS ORDERED: PROPOFOL INJECTION 50 ML IV ONE (10:37)
--- NOTE | 2018-02-03 10:47 | Progress Note-Pre Operative ---
Pre-Operative Progress Note H&P Reviewed The H&P was reviewed, patient examined and no changes noted. Date Seen by Provider: Feb 03, 2018 Time Seen by Provider: 10:47 Date H&P Reviewed: Feb 03, 2018 Time H&P Reviewed: 10:47 Pre-Operative Diagnosis: family history colon cancer ELIZABETH CASTILLO DO Feb 03, 2018 10:47
--- NOTE | 2018-02-03 11:51 | Discharge Inst-Simple/Standard ---
Discharge Inst-Standard Patient Instructions/Follow Up Plan of Care/Instructions/FU: Repeat colonoscopy 5 years unless issues and be seen at that time. Activity as Tolerated: Yes Discharge Diet: Regular Diet ELIZABETH CASTILLO DO Feb 03, 2018 11:51
--- NOTE | 2018-02-03 11:52 | Progress Note-Post Operative ---
Post-Operative Progess Note Surgeon (s)/Pumper Hand (s) Surgeon ELIZABETH CASTILLO DO Pumper Hand: na Pre-Operative Diagnosis family history colon cancer Post-Operative Diagnosis same Procedure & Operative Findings Date of Procedure 02/03/18 Procedure Performed/Findings colonoscopy Anesthesia Type per [facility] Estimated Blood Loss Estimated blood loss (mL): none Specimens/Packing Specimens Removed na ELIZABETH CASTILLO DO Feb 03, 2018 11:52
[2018-02-03 11:55] VITALS: BP 113/84
[2018-02-03 12:25] VITALS: BP 116/64
[2018-02-03 12:36] VITALS: BP 116/64
--- NOTE | 2018-02-03 13:50 | OPERATIVE REPORT ---
DATE OF SERVICE: 02/03/2018 PREOPERATIVE DIAGNOSIS: Family history of colon cancer. POSTOPERATIVE DIAGNOSIS: Family history of colon cancer. Normal colon. PROCEDURE: Colonoscopy. SURGEON: Elizabeth Canales DO ANESTHESIA: Per MDA. ESTIMATED BLOOD LOSS: None. COMPLICATIONS: None. INDICATIONS: The patient is a 57-year-old female with family history of colon cancer. She understands risks and benefits of procedure and wished to proceed with procedure. Consent was signed and on the chart. PROCEDURE: The patient was taken to the endoscopy suite, placed in left lateral recumbent position. Timeout was performed. Digital rectal exam was performed. There were no palpable polyps, mass or ulcerations. The scope was inserted in the rectum and advanced all the way to cecum with minimal difficulty. Some debris in the colon, but irrigation and suction allowed adequate visualization. There were no polyps, mass or ulceration of the cecum, ascending, transverse, descending and sigmoid colon. Once in the rectum, it was also retroflexed noting no other pathology. Scope was returned to its normal position, slowly withdrawn and completely removed. The patient tolerated procedure well without any complications. She was taken to recovery room in stable condition. RECOMMENDATIONS: The patient will need repeat colonoscopy in 5 years unless she has any problems prior to that, she should be reevaluated at that time. Job ID: [id number] DocumentID: [id number] Dictated Date: 02/03/2018 11:54:03 Crane Follower Date: 02/03/2018 13:49:58 Dictated By: ELIZABETH CANALES DO
[2018-02-12] MEDS ORDERED: ACHD5005 PO (08:52)
== END 2018-02-03 12:40 | disposition home or self-care (01) ==
LOC: ENDO 08:25
PROVIDERS: ATTEND Surgery
DX: Z12.11 Encounter for screening for malignant neoplasm of colon (principal); Z80.0 Family history of malignant neoplasm of digestive organs; I10 Essential (primary) hypertension; I34.1 Nonrheumatic mitral (valve) prolapse; K21.9 Gastro-esophageal reflux disease without esophagitis; N31.9 Neuromuscular dysfunction of bladder, unspecified; E66.9 Obesity, unspecified; Z68.37 Body mass index [BMI] 37.0-37.9, adult; Z79.82 Long term (current) use of aspirin; Z79.899 Other long term (current) drug therapy
CPT/HCPCS: G0105

== ENCOUNTER 2018-02-09 05:49 | Outpatient (CLI) | payer MEDICARE, OTHER ==
[~2018-02-09] VITALS: Ht 167.6 cm; Wt 104.3 kg
[2018-02-12] MEDS ORDERED: ACHD5005 PO (08:52)
== END 2018-02-09 14:27 | disposition home or self-care (01) ==
LOC: PREOP 05:49
PROVIDERS: ATTEND Surgery
DX: Z01.818 Encounter for other preprocedural examination (principal)

== ENCOUNTER 2018-02-12 06:04 | Day surgery (SDC) | payer MEDICARE, OTHER ==
[~2018-02-12] VITALS: Ht 167.6 cm; Wt 104.3 kg
--- OUTSIDE RECORDS SUMMARY | 2018-02-12 06:10 | XMS REPORT ---
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 Name Role Phone MADDY JOHNSON Unavailable PROBLEMS Type Condition ICD9-CM Code CEY42-WA Code Onset Dates Condition Status SNOMED Code Problem Slow transit constipation K59.01 Active 21201349 Problem Bipolar disorder, current episode mixed, mild F31.61 Active 923249462 Problem Chronic obstructive pulmonary disease, unspecified COPD type J44.9 Active 60839033 Problem Bipolar II disorder F31.81 Active 14863302 Problem Post-traumatic stress disorder, chronic F43.12 Active 29839662 Problem Bipolar affective disorder, currently manic, mild F31.11 Active 941286461 Problem Lumbago with sciatica, left side M54.42 Active 102092542 Problem Essential hypertension I10 Active 50380059 Problem Other chronic pain G89.29 Active 86366728 Problem Bipolar disorder, in partial remission, most recent episode mixed F31.77 Active 50861652 Problem Paresthesias R20.2 Active 91999645 Problem Irritable bowel syndrome with both constipation and diarrhea K58.2 Active 28237943 ALLERGIES Substance Reaction Event Type Date Status Xanax memory problems, mental disorganization Non Drug Allergy Nov, Active Silk tape rash Non Drug Allergy Nov, Active ENCOUNTERS Encounter Location Date Diagnosis [facility] [address] [facility] [id number] [address] Apr, [facility] [id number] [address] Jan, [facility] [address] [address] Jan, [facility] [id number] [address] Dec, Bipolar disorder, in partial remission, most recent episode mixed F31.77 and Essential hypertension I10 [facility] [id number] [place] [address] 02344- 5060 Dec, Bipolar disorder, in partial remission, most recent episode mixed F31.77 [place] [id number] [place] [address] 35505- 5040 Nov, Bipolar II disorder F31.81 and Post-traumatic stress disorder, chronic F43.12 [facility] [id number] [place] [address] 35965- 0173 Nov, Essential hypertension I10 ; Lymph node enlargement R59.9 ; Paresthesias R20.2 ; Irritable bowel syndrome with both constipation and diarrhea K58.2 ; Lumbago with sciatica, left side M54.42 and Other chronic pain G89.29 [place] [id number] [place] [address] 44236- 7883 Nov, Bipolar disorder, in partial remission, most recent episode mixed F31.77 [facility] [id number] [place] [address] 75481- 4349 Oct, Bipolar disorder, in partial remission, most recent episode mixed F31.77 [facility] [id number] [place] [address] 91398 -0638 Oct, Scabies B86 [facility] [id number] [place] [address] 15076- 0786 Oct, Bipolar disorder, in partial remission, most recent episode mixed F31.77 [facility] [address] [address] Oct, [place] [id number] [place] [address] 39469- 7965 Oct, Bipolar II disorder F31.81 and Post-traumatic stress disorder, chronic F43.12 [facility] [id number] [place] [address] 37711 -8361 Oct, Scabies B86 [place] [id number] [place] [address] 57019- 5089 Oct, [place] [id number] [place] [address] 29620- 7618 September, Bipolar II disorder F31.81 and Post-traumatic stress disorder, chronic F43.12 [place] [address] 42003- 7656 September, Bipolar disorder, in partial remission, most recent episode mixed F31.77 [place] [id number] [place] [address] 18918- 9191 September, COPD exacerbation J44.1 and Elevated blood pressure reading R03.0 [place] [id number] [place] [address] 56158- 9906 September, [place] [address] 13146- 9579 September, Pain in left ankle and joints of left foot M25.572 ; Dermatitis L30.9 and Other chronic pain G89.29 [place] [id number] [place] [address] 77303- 3763 Aug, Right elbow pain M25.521 and Elevated blood pressure reading R03.0 [place] [id number] [place] [address] 93464- 1260 Aug, Bipolar disorder, current episode mixed, mild F31.61 and BMI 40.0-44.9, adult Z68.41 [place] [id number] [place] [address] 90574- 5798 Aug, [place] [address] 63614- 1201 Aug, Bipolar II disorder F31.81 and Post-traumatic stress disorder, chronic F43.12 [place] [id number] [place] [address] 59701- 0960 Jul, Elevated blood pressure reading R03.0 [place] [id number] [place] [address] 31557- 8266 Jul, Bipolar II disorder F31.81 and Post-traumatic stress disorder, chronic F43.12 [place] [id number] [place] [address] 46291- 4474 15 Jul, 2017 Bipolar disorder, current episode mixed, mild F31.61 [facility] [place] [address] 36090 -3301 Jul, Right foot pain M79.671 ; Allergic contact dermatitis, unspecified trigger L23.9 ; Contusion of right foot, initial encounter S90.31XA and BMI 40.0-44.9, adult Z68.41 [facility] [place] [id number] [place] [address] 36615 -6689 02 Jul, 2017 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 [place] [address] 56462- 8674 Jul, [place] [address] 10395- 3210 15 Jul, 2017 Bipolar disorder, current episode mixed, mild F31.61 [place] [id number] [place] [address] 96333- 1327 15 Jul, 2017 Bipolar II disorder F31.81 ; Post-traumatic stress disorder , chronic F43.12 and Memory change R41.3 [place] [id number] [place] [address] 42047- 4887 14 Jul, 2017 Elevated blood pressure reading R03.0 ; Chronic obstructive pulmonary disease, unspecified COPD type J44.9 ; Long-term use of high-risk medication Z79.899 and Cognitive decline R41.89 [place] [id number] [place] [address] 30128- 2358 06 Jul, 2017 Elevated blood pressure reading R03.0 [place] [address] 28395- 5683 05 Jul, 2017 [facility] [address], [place] [address] 7[address] Jul, Bipolar II disorder F31.81 ; Post-traumatic stress disorder , chronic F43.12 and Memory change R41.3 [place] [address], [place] [address] 0761 Jun, [facility] [id number] [place] [address] 83264- 3800 Jun, Bipolar II disorder F31.81 ; Post-traumatic stress disorder , chronic F43.12 and Memory change R41.3 [place] [id number] [place] [address] 61645- 7611 Jun, Localized swelling, mass or lump of neck R22.1 ; Slow transit constipation K59.01 and Elevated blood pressure reading R03.0 [place] [id number] [place] [address] 15780- 9667 Jun, [place] [id number] [place] [address] 03697- 4319 Jun, Bipolar affective disorder, currently manic, mild F31.11 [facility] [address] [address] 15 May, 2017 [facility] [address], [place] [address] 14 May, 2017 [facility] [id number] [place] [address] 17536- 6056 13 May, 2017 Bipolar II disorder F31.81 ; Post-traumatic stress disorder , chronic F43.12 and Memory change R41.3 [facility] [address] [place] [address] 22413- 6412 May, [place] [address], [place] [address]- 9946 08 May, 2017 [facility] [id number] [address]- 6112 05 May, 2017 Bipolar affective disorder, currently manic, mild F31.11 [facility] [id number] [place] [address] 41746- 7358 May, [facility] [id number] [place] [address] 90861 -3400 May, Localized swelling, mass or lump of neck R22.1 and Localized swelling, mass and lump, head R22.0 [facility] [id number] [place] [address] 36305- 3270 Apr, [place] [id number] [place] [address] 69907- 7034 Apr, Bipolar affective disorder, currently manic, mild F31.11 [place] [id number] [place] [address] 61958- 9257 07 Apr, 2017 Bipolar II disorder F31.81 [place] [id number] [place] [address] 62523- 7213 Apr, [place] [id number] [place] [address] 83642- 7517 Apr, Bipolar affective disorder, currently manic, mild F31.11 [place] [id number] [place] [address] 49123- 7362 Apr, Actinic keratosis L57.0 [facility] [id number] [place] [address] 24268- 2505 Apr, Bipolar affective disorder, currently manic, mild F31.11 [place] [id number] [place] [address] 40700- 7921 Apr, [facility] [id number] [place] [address] 19188 -5139 Mar, Allergic contact dermatitis, unspecified trigger L23.9 and Right leg pain M79.604 [place] [id number] [address]- 7342 Mar, [facility] [address] [place] [address] 70514- 8325 Mar, Bipolar II disorder F31.81 ; Post-traumatic stress disorder , chronic F43.12 and Memory change R41.3 [facility] [address], [place] [address]- 7722 Mar, Actinic keratosis L57.0 [facility] [address], [place] [address]- 3994 28 Jan, 2017 Bipolar II disorder F31.81 ; Post-traumatic stress disorder , chronic F43.12 and Memory change R41.3 [place] [address], [place] [address]- 5237 28 Jan, 2017 Bipolar affective disorder, currently manic, mild F31.11 [place] [address] [address]- 6537 Jan, Bipolar affective disorder, currently manic, mild F31.11 [place] [id number] [place] [address] 36599- 6402 07 Jan, 2017 Bipolar II disorder F31.81 ; Post-traumatic stress disorder , chronic F43.12 and Memory change R41.3 [place] [address], [place] [address]- 6951 Dec, Bipolar II disorder F31.81 ; Post-traumatic stress disorder , chronic F43.12 and Memory change R41.3 [facility] [address], [place] [address]- 7865 Dec, Bipolar affective disorder, currently manic, mild F31.11 [facility] [address], [place] [address]- 2208 Dec, Bipolar affective disorder, currently manic, mild F31.11 [facility] [address], [place] [address]- 2674 Dec, Post-traumatic stress disorder, chronic F43.12 [facility] [address], [place] [address]- 4616 Dec, Bipolar II disorder F31.81 ; Post-traumatic stress disorder , chronic F43.12 and Memory change R41.3 [facility] [address], [place] [address]- 2912 Dec, Post-traumatic stress disorder, chronic F43.12 [facility] [id number] [place] [address] 70430- 8600 Nov, [facility] [id number] [place] [address] 77182- 5271 Nov, Bipolar II disorder F31.81 ; Post-traumatic stress disorder , chronic F43.12 and Memory change R41.3 [place] [id number] [place] [address] 64851- 2147 Nov, [facility] [id number] [place] [address] 55823- 3057 Nov, Post-traumatic stress disorder, chronic F43.12 and Bipolar II disorder F31.81 [facility] [address] [place] [address] 94949- 2167 Nov, Actinic keratosis L57.0 [facility] [address], [place] [address]- 2962 Oct, Bipolar II disorder F31.81 ; Post-traumatic stress disorder , chronic F43.12 and Memory change R41.3 [facility] [address], [place] [address]- 6737 Oct, Post-traumatic stress disorder, chronic F43.12 ; Bipolar II disorder F31.81 and Memory change R41.3 [facility] [address], [place] [address]- 3737 Oct, Bipolar II disorder F31.81 ; Post-traumatic stress disorder , chronic F43.12 and Memory change R41.3 [place] [address], [place] [address]- 4833 Oct, Actinic keratosis L57.0 [facility] [address] [place] [address]- [address]47 September, Bipolar II disorder F31.81 ; Post-traumatic stress disorder , chronic F43.12 and Memory change R41.3 [place] [id number] [place] [address] [address] September, Bipolar II disorder F31.81 ; Post-traumatic stress disorder , chronic F43.12 and Memory change R41.3 [place] [id number] [place] [address]- 4761 September, Post-traumatic stress disorder, chronic F43.12 ; Bipolar II disorder F31.81 and Memory change R41.3 [place] [id number] [place] [address] 60814- 3354 Jul, Bipolar II disorder F31.81 ; Post-traumatic stress disorder , chronic F43.12 and Memory change R41.3 [place] [address] [place] [address] 10188- 2671 Jul, Bipolar II disorder F31.81 ; Post-traumatic stress disorder , chronic F43.12 and Memory change R41.3 [place] [address] [place] [address] 62143- 1086 Jul, Bipolar II disorder F31.81 ; Post-traumatic stress disorder , chronic F43.12 and Memory change R41.3 [place] [address], [place] [address]- 9281 Jul, Post-traumatic stress disorder, chronic F43.12 ; Bipolar II disorder F31.81 and Memory change R41.3 [place] [address], [place] [address]- 5504 Jul, Tear of medial meniscus of right knee, unspecified tear type , unspecified whether old or current tear, initial encounter S83.241A [place] [id number] [place] [address] 33930- 1951 Jul, Bipolar II disorder F31.81 ; Post-traumatic stress disorder , chronic F43.12 and Memory change R41.3 [place] [id number] [place] [address] 03322- 2480 Jul, Shortness of breath R06.02 ; Mixed hyperlipidemia E78.2 and Chronic fatigue R53.82 [place] [id number] [place] [address] 27620- 7453 Jul, Bipolar II disorder F31.81 ; Post-traumatic stress disorder , chronic F43.12 and Memory change R41.3 [place] [id number] [place] [address] 27930- 2659 Jul, [place] [address] 83249- 8297 Jun, Bipolar II disorder F31.81 ; Post-traumatic stress disorder , chronic F43.12 and Memory change R41.3 [place] [id number] [place] [address] 62540- 3566 Jun, Post-traumatic stress disorder, chronic F43.12 ; Bipolar II disorder F31.81 and Memory change R41.3 [place] [id number] [place] [address] 87674- 4113 Jun, Right anterior knee pain M25.561 ; Shortness of breath R06.02 and Bronchiolitis J21.9 [place] [id number] [place] [address] 64611- 3571 Jun, [place] [id number] [place] [address] 95602- 6927 Jun, Bipolar II disorder F31.81 ; Post-traumatic stress disorder , chronic F43.12 and Memory change R41.3 [place] [id number] [place] [address] 23889- 7098 Jun, [facility] [address], [place] [address]- 9674 Jun, Bipolar II disorder F31.81 ; Post-traumatic stress disorder , chronic F43.12 and Memory change R41.3 [facility] [address] [place] [address] 14574- 0336 May, [facility] [id number] [place] [address] 28049- 8768 May, [facility] [id number] [place] [address] 41270- 4496 May, [facility] [id number] [place] [address] 74687- 1896 May, Right anterior knee pain M25.561 ; Cough R05 ; Skin lesion of right arm L98.9 and Lesion of skin of face L98.9 [facility] [id number] [place] [address] 40979- 4000 May, [facility] [id number] [place] [address] 90268- 4885 May, Post-traumatic stress disorder, chronic F43.12 ; Memory change R41.3 and Bipolar I disorder, most recent episode manic F31.10 [facility] [address], [place] [address]- 3404 May, [facility] [address] [place] [address] 77952- 5917 May, Right anterior knee pain M25.561 [facility] [id number] [place] [address] 80463- 1276 May, [facility] [id number] [place] [address] 21464- 7568 Apr, Bipolar II disorder F31.81 ; Post-traumatic stress disorder , chronic F43.12 and Memory change R41.3 [facility] [id number] [address]- 3698 Apr, Bipolar II disorder F31.81 ; Post-traumatic stress disorder , chronic F43.12 and Memory change R41.3 [facility] [id number] [place] [address]- 5269 Apr, Post-traumatic stress disorder, chronic F43.12 ; Bipolar II disorder F31.81 and Memory change R41.3 [place] [id number] [place] [address] 11858- 8692 Mar, Bipolar II disorder F31.81 ; Post-traumatic stress disorder , chronic F43.12 and Memory change R41.3 [place] [id number] [place] [address] 33873- 6132 Mar, Memory change R41.3 ; Confusion R41.0 and Dizziness R42 [place] [id number] [place] [address] 47505- 6785 Mar, Memory change R41.3 ; Encounter for immunization Z23 and Fatigue, unspecified type R53.83 [place] [id number] [place] [address] 97369- 9437 Mar, Bipolar II disorder F31.81 ; Post-traumatic stress disorder , chronic F43.12 and Memory change R41.3 [facility] [address] [place] [address] 91759- 4380 Jan, Bipolar II disorder F31.81 ; Post-traumatic stress disorder , chronic F43.12 and Memory change R41.3 [place] [id number] [place] [address] 47338- 0721 19 Feb, 2016 Post-traumatic stress disorder, chronic F43.12 ; Bipolar II disorder F31.81 ; Anxiety disorder, unspecified F41.9 and Memory change R41.3 [place] [id number] [place] [address] 46729- 3071 15 Feb, 2016 Bipolar II disorder F31.81 ; Post-traumatic stress disorder , chronic F43.12 and Memory change R41.3 [facility] [address] [place] [address] 48412- 1151 Dec, Bipolar II disorder F31.81 ; Post-traumatic stress disorder , chronic F43.12 and Memory change R41.3 [facility] [address] [place] [address] 91366- 1099 Dec, Memory loss R41.3 [facility] [id number] [place] [address] 98827- 1440 Dec, Bipolar II disorder F31.81 ; Post-traumatic stress disorder , chronic F43.12 and Memory change R41.3 [facility] [id number] [place] [address] 80902- 5202 Nov, Bipolar II disorder F31.81 and Post-traumatic stress disorder, chronic F43.12 [facility] [id number] [place] [address] 68335- 3998 Nov, Bipolar II disorder F31.81 ; Post-traumatic stress disorder , chronic F43.12 and Memory change R41.3 [facility] [id number] [place] [address] 51971- 1627 Oct, Post-traumatic stress disorder, chronic F43.12 and Bipolar disorder, unspecified F31.9 [facility] [address] [place] [address] 55178- 5081 Oct, Bipolar II disorder F31.81 ; Post-traumatic stress disorder , chronic F43.12 and Memory change R41.3 [facility] [address] [place] [address] [id number] Oct, Dental examination Z01.20 [facility] [id number] [place] [address] 60837- 2724 September, Bipolar II disorder F31.81 ; Post-traumatic stress disorder , chronic F43.12 and Memory change R41.3 [facility] [id number] [place] [address] 16770- 3505 Aug, Bipolar II disorder F31.81 and Post-traumatic stress disorder, chronic F43.12 [place] [id number] [place] [address]- 6541 Aug, Bipolar II disorder F31.81 and Post-traumatic stress disorder, chronic F43.12 [place] [id number] [place]- 6426 Jul, Bipolar II disorder F31.81 and Post-traumatic stress disorder, chronic F43.12 [place] [id number] [place] [address] 52304- 2084 Jul, [place] [id number] [place]- 4363 Jul, [place] [id number] [place] [address] Jul, Post-traumatic stress disorder, chronic F43.12 and Bipolar disorder, unspecified F31.9 [place] [id number] [place] [address] 32709- 6856 Jun, Bipolar II disorder F31.81 and Post-traumatic stress disorder, chronic F43.12 [place] [id number] [place] [id number]- [address] Jun, Post-traumatic stress disorder, chronic F43.12 and Bipolar disorder, unspecified F31.9 [place] [id number] [place] [address] 79723- 4757 Jun, [place] [id number] [place], [place] [address] Jun, Pharyngeal dysphagia R13.13 ; Hoarseness R49.0 and Cough R05 [place] [id number] [place] [address] [phone]- 5915 Jun, Post-traumatic stress disorder, chronic F43.12 and Bipolar disorder, unspecified F31.9 [place] [id number] [place] [address] 29631- 3500 30 May, 2015 Cough R05 [facility] [id number] [place] [address] [id number]- 2762 30 May, 2015 Post-traumatic stress disorder, chronic F43.12 and Bipolar disorder, unspecified F31.9 [facility] [id number] [place] [address] 09007- 0955 May, Cough R05 [facility] [id number] [place] [address] 15002- 5743 16 May, 2015 [facility] [address] [id number] May, Dental examination Z01.20 [facility] [id number] [place] [address] 06092- 5551 15 May, 2015 Bipolar II disorder F31.81 and Post-traumatic stress disorder, chronic F43.12 [facility] [id number] [place] [address] 93767- 3707 14 May, 2015 [facility] [id number] [place] [address] 32743- 5194 14 May, 2015 Bipolar II disorder F31.81 and Anxiety disorder, unspecified F41.9 [facility] [id number] [place] [address] 17984- 2398 May, Memory change R41.3 and History of renal insufficiency syndrome Z87.448 [facility] [id number] [place] [address] 10953- 0739 May, Memory change R41.3 ; Dry mouth R68.2 and History of renal insufficiency syndrome Z87.448 [facility] [id number] [place] [address] 41191- 5673 May, Bipolar II disorder F31.81 and Post-traumatic stress disorder, chronic F43.12 [facility] [id number] [place] [address] 01546- 9574 Mar, Bipolar disorder, unspecified F31.9 and Generalized anxiety disorder F41.1 [facility] [id number] [place] [address] 02968- 7686 Mar, Bipolar II disorder F31.81 [facility] [id number] [place] [address] 88670- 0083 Mar, Encounter for immunization Z23 [facility] [id number] [place] [address] 44843- 8790 Mar, [facility] [id number] [place] [address] 81344- 3693 Mar, Bipolar II disorder F31.81 [facility] [id number] [place] [address] 81239- 6893 Mar, [facility] [id number] [place] [address] 25895- 0025 Jan, Bipolar disorder, unspecified 296.80 and Anxiety disorder 300.00 [facility] [id number] [place] [address] 64691- 8015 Jan, [facility] [id number] [place] [address] 80013- 9983 Jan, Bipolar disorder, unspecified 296.80 and Anxiety disorder 300.00 [facility] [id number] [place] [address] 46542- 1766 Dec, Bipolar disorder, unspecified 296.80 and Anxiety disorder 300.00 [facility] [id number] [place] [address] 13551- 6601 Dec, [facility] [id number] [place] [address] 98781- 1614 Dec, Bipolar disorder, unspecified 296.80 and Anxiety disorder 300.00 [facility] [id number] [place] [address] 68935- 9756 Nov, Bipolar disorder, unspecified 296.80 and Anxiety disorder 300.00 [facility] [id number] [address] 4609 Oct, Bipolar disorder, unspecified 296.80 and Anxiety disorder 300.00 [facility] [id number] [place] [address] 45586- 6174 Oct, Anxiety 300.00 and Bipolar disorder, unspecified 296.80 [facility] [id number] [place] [address] 59822- 0716 September, Bipolar disorder, unspecified 296.80 and Anxiety disorder 300.00 [facility] [id number] [place] [address] 25472- 4644 September, [facility] [id number] [place] [address] 63135- 4576 Aug, Cough 786.2 [facility] [id number] [place] [address] 76501- 4723 Aug, [facility] [id number] [place] [address] 97065- 0462 Aug, [facility] [address] [address]- 6555 Jul, [facility] [id number] [place] [address] 24188- 4586 Jul, [facility] [address] [address]- 9049 Jul, [facility] [address] [address]- 4366 Jul, [facility] [address] [address]- 5036 Jul, [facility] [id number] [address]- 9336 Jul, [facility] [address] [address]- 7266 Jun, [facility] [id number] [place] [address] 08959- 2618 Jun, [facility] [place] [facility] [address] [id number] [place] [address]- 3563 Jun, [facility] [place] [facility] [address] [id number] [place] [address] Jun, [facility] [place] [facility] [address] [id number] [place] [address]- 5076 May, [facility] [place] [facility] [address] [id number] [place] [address]- 3142 May, [facility] [place] [facility] [address] [id number] [place] [address]- 6874 May, [facility] [place] [facility] [address] [id number] [place] [address]- 6293 May, [facility] [place] [facility] [address] [id number] [place] [address]- 5661 Apr, [facility] [place] [facility] [address] [id number] [place] [address]- 4191 Apr, [facility] [place] [facility] [address] [id number] [place] [address]- 3264 Mar, [facility] [place] [facility] [address] [id number] [place] [address]- 2217 Mar, [facility] [place] [facility] [address] [id number] [address]- 7391 Mar, [facility] [place] [facility] [address] [id number] [address]- 3609 Mar, [facility] [place] [facility] [address] [id number] [place] [address]- 7093 Mar, [facility] [place] [facility] [address] [id number] [place] [address]- 8632 Mar, [facility] [place] [facility] [address] [id number] [place] [address]- 7466 Jan, [facility] [place] [facility] [address] [id number] [place] [address]- 6525 Jan, 2013 [facility] [place] [facility] [address] [id number] [place] [address]- 6132 05 Jan, 2013 [facility] [place] [facility] [address] [id number] [place] [address]- 9436 Jan, 2013 [facility] [place] [facility] [address] [id number] [place] [address]- 8287 Jan, 2013 [facility] [place] [facility] [address] [id number] [place] [address]- 1147 Jan, 2013 [facility] [place] [facility] [address] [id number] [place] [address]- 4111 Dec, [facility] [place] [facility] [address] [id number] [place] [address]- 7802 Dec, [facility] [place] [facility] [address] [id number] [place] [address]- 0614 Dec, [facility] [place] [facility] [address] [id number] [place] [address]- 4580 Dec, [facility] [place] [facility] [address] [id number] [place] [address]- 9195 Dec, [facility] [place] [facility] [address] [id number] [place] [address]- 6950 Dec, [facility] [place] [facility] [address] [id number] [place] [address]- 3167 Nov, [facility] [place] [facility] [address] [id number] [place] [address]- 7719 Nov, [facility] [place] [facility] [address] [id number] [place] [address]- 7886 Nov, [facility] [place] [facility] [address] [id number] [place] [address]- 8521 Nov, [facility] [place] [facility] [address] [id number] [place] [address]- 2963 Nov, [facility] [place] [facility] [address] [id number] [place] [address]- 9667 Nov, [facility] [place] [facility] [address] [id number] [place] [address]- 2116 Nov, [facility] [place] [facility] [address] [id number] [place] [address]- 9966 Nov, [facility] [place] [facility] [address] [id number] [place] [address]- 4969 Nov, [facility] [place] [facility] [address] [id number] [place] [address]339 Nov, [facility] [place] [facility] [address] [id number] [place] [address]- 0428 September, [facility] [place] [facility] [address] [id number] [place] [address]- 5266 September, [facility] [place] [facility] [address] [id number] [place] [address]- 0806 September, [facility] [place] [facility] [address] [id number] [place] [address]- 8587 September, [facility] [place] [facility] [address] [id number] [place] [address]- 5522 September, [facility] [place] [facility] [address] [id number] [place] [address]- 0804 September, [facility] [place] [facility] [address] [id number] [place] [address]- 0803 September, [facility] [place] [facility] [address] [id number] [place] [address]- 8163 September, [facility] [place] [facility] [address] [id number] [place] [address]- 5507 Aug, [facility] [place] [facility] [address] [id number] [place] [address]- 3068 Aug, [facility] [place] [facility] [address] [id number] [place] [address]- 3409 Aug, [facility] [place] [facility] [address] [id number] [place] [address]- 2528 Aug, [facility] [place] [facility] [address] [id number] [place] [address]- 6506 Jul, [facility] [place] [facility] [address] [id number] [place] [address]- 7564 Jul, [facility] [place] [facility] [address] [id number] [place] [address]- 6353 Jul, [facility] [place] [facility] [address] [id number] [place] [address]- 3910 Jul, [facility] [place] [facility] [address] [id number] [place] [address]- 8485 18 Jul, 2013 [facility] [place] [facility] [address] [id number] [place] [address]- 9848 Jul, [facility] [place] [facility] [address] [id number] [place] [address]- 7737 Jul, [facility] [place] [facility] [address] [id number] [place] [address]- 8944 Jul, [facility] [place] [facility] [address] [id number] [place] [address]- 0636 Jul, [facility] [place] [facility] [address] [id number] [place] [address]- 0920 Jul, [facility] [place] [facility] [address] [id number] [place] [address]- 1546 Jul, [facility] [place] [facility] [address] [id number] [place] [address]- 5156 Jun, [facility] [place] [facility] [address] [id number] [place] [address]- 4830 Jun, [facility] [place] [facility] [address] [id number] [place] [address]- 9016 Jun, [facility] [place] [facility] [address] [id number] [place] [address]- 5757 Jun, [facility] [place] [facility] [address] [id number] [place] [address]- 2367 May, [facility] [place] [facility] [address] [id number] [place] [address]- 1288 May, [facility] [place] [facility] [address] [id number] [place] [address]- 5699 Apr, [facility] [place] [facility] [address] [id number] [place] [address]- 0318 Apr, [facility] [place] [facility] [address] [id number] [place] [address]- 9499 Apr, [facility] [place] [facility] [address] [id number] [place] [address]- 1152 Apr, [facility] [place] [facility] [address] [id number] [place] [address]- 4774 Apr, [facility] [place] [facility] [address] [id number] [place] [address]- 8473 Apr, [facility] [place] [facility] [address] [id number] [address]- 1600 Apr, [facility] [place] [facility] [address] [id number], [place] [address]- 3005 Apr, [facility] [place] [facility] [address] [id number], [place] [address]- 1365 Apr, [facility] [place] [facility] [address] [id number] [place] [address]- 0317 Apr, [facility] [place] [facility] [address] [id number], [place] [address]- 3046 Apr, [facility] [place] [facility] [address] [id number] [place] [address]- 7696 Apr, [facility] [place] [facility] [id number] [address]- 2027 15 Mar, 2013 [facility] [address] [place] [address]- 8477 Mar, [facility] [address] [place] [address]- 6441 Mar, [facility] [address] [address]- 7649 Dec, [facility] [address] [place] [address]- 8177 Dec, [facility] [id number] [place] [address] 35589- 0696 Dec, [facility] [address] [place] [address]- 7471 Oct, [facility] [id number] [place] [address] 33764- 3891 May, [facility] [address] [place] [address]- 8299 May, [facility] [address] [place] [address]- 1538 May, [facility] [id number] [address]- 2034 Dec, IMMUNIZATIONS No Known Immunizations SOCIAL HISTORY Never Assessed REASON FOR VISIT IPT from Beto Stark RN PLAN OF CARE Activity Details Follow Up 3 Months, prn Reason:chm/htn Pending Test Ultrasound : Neck VITAL SIGNS Height 66 in 2017-12-23 Weight 238.3 lbs 2017-12-23 Temperature 98.8 degrees Fahrenheit 2017-12-23 Heart Rate 90 bpm 2017-12-23 Respiratory Rate 18 2017-12-23 Oximetry 98 % 2017-12-23 BMI 38.46 kg/m2 2017-12-23 Blood pressure systolic 122 mmHg 2017-12-23 Blood pressure diastolic 86 mmHg 2017-12-23 MEDICATIONS Medication Instructions Dosage Frequency Start Date End Date Duration Status Calcium 600 MG Orally Once a day 1 tablet with meals 24h 30 days Active Multivitamin Gummies Adult Active Omeprazole 40 MG Orally Once a day 1 capsule 24h Active Triamcinolone Acetonide 0.1 % Externally Twice a day 1 application to affected area 12h 12 Jul, 2017 7 days Active Linzess 145 MCG Orally Once a day 1 capsule 24h Jun, Mar, 90 days Active Melatonin 5 MG 1 tablet at bedtime as needed with food Active Fish Oil 1000 MG Orally Once a day 2 capsule 24h Active Loxapine Succinate 5 MG Orally at night 1 capsule Oct, 90 days Active Abilify 30 MG Orally Once a day 1 tablet 24h Nov, 90 days Active Albuterol Sulfate 108 (90 Base) MCG/ACT Inhalation every 4-6 hrs 1 puff as needed May, Active Diclofenac Sodium 75 MG Orally Twice a day 1 tablet with food or milk 12h Active Cymbalta 60 MG Orally Once a day 1 Capsule 24h 90 days Active Vitamin D 2000 UNIT Orally Once a day 1 tablet 24h Active Hydrochlorothiazide 25 MG Orally Once a day 1 tablet in the morning 24h September, 90 days Active Advair Diskus 100-50 MCG/DOSE Inhalation Twice a day 1 puff 12h Active Aspirin 81 MG Orally Once a day 1 tablet 24h Active Trihexyphenidyl HCl 2 MG Orally Three times a day 1 tablet 8h September, 90 days Active Premarin 0.9 MG Orally Once a day 1 tablet 24h Active Trazodone HCl 100 MG Orally at night as needed for sleep 1-2 tab Jun, 90 days Active RESULTS No Results PROCEDURES Procedure Date Ordered Result Body Site [facility] VISIT ESTABLISHED PATIENT December 23, 2017 INSTRUCTIONS MEDICATIONS ADMINISTERED No Known [...] fatigue Medical History hyperlipidemia Surgical History Stimulator 2-16 Surgical History Disectomy 1991 Surgical History Breast Reduction 1998 Surgical History Left hand carpal surgery 1992 Surgical History Hysterectomy 05/02 Surgical History tubes and ovaries 04/16/10 Surgical History Bladder lift 04/16/10 Surgical History Gall Bladder Surgical History Tubalization Hospitalization History [facility] 12/2014 Hospitalization History Obstructive Airway Disease, Mood disorder, cough-[facility] 07/02/15 Hospitalization History Bronchitis- [facility] 06/2016
--- OUTSIDE RECORDS SUMMARY | 2018-02-12 06:11 | XMS REPORT ---
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 Name Role Phone LUCILADREW AJ Unavailable PROBLEMS Type Condition ICD9-CM Code [id number] Code Onset Dates Condition Status SNOMED Code Problem Slow transit constipation K59.01 Active 01023723 Problem Bipolar disorder, current episode mixed, mild F31.61 Active 233978972 Problem Chronic obstructive pulmonary disease, unspecified COPD type J44.9 Active 53194582 Problem Bipolar II disorder F31.81 Active 97873713 Problem Post-traumatic stress disorder, chronic F43.12 Active 58817491 Problem Bipolar affective disorder, currently manic, mild F31.11 Active 838491541 Problem Lumbago with sciatica, left side M54.42 Active 591381505 Problem Essential hypertension I10 Active 14054587 Problem Other chronic pain G89.29 Active 97414125 Problem Bipolar disorder, in partial remission, most recent episode mixed F31.77 Active 57796648 Problem Paresthesias R20.2 Active 49199815 Problem Irritable bowel syndrome with both constipation and diarrhea K58.2 Active 45293100 ALLERGIES Substance Reaction Event Type Date Status Xanax memory problems, mental disorganization Non Drug Allergy Nov, Active Silk tape rash Non Drug Allergy Nov, Active ENCOUNTERS Encounter Location Date Diagnosis [facility] [address] [facility] [id number] [address] Apr, [facility] [address] [address] Jan, [facility] [address] [address] Jan, [facility] [address] [place] [id number] [address] Dec, Bipolar disorder, in partial remission, most recent episode mixed F31.77 and Essential hypertension I10 [facility] [address] [place] [id number] [place] [address] 38039- 5630 Dec, Bipolar disorder, in partial remission, most recent episode mixed F31.77 [place] [address] [place] [id number] [place] [address] 03949- 9919 Nov, Bipolar II disorder F31.81 and Post-traumatic stress disorder, chronic F43.12 [place] [address] [place] [id number] [place] [address] 71371- 6680 Nov, Essential hypertension I10 ; Lymph node enlargement R59.9 ; Paresthesias R20.2 ; Irritable bowel syndrome with both constipation and diarrhea K58.2 ; Lumbago with sciatica, left side M54.42 and Other chronic pain G89.29 [place] [address] [place] [id number] [place] [address] 16856- 1348 Nov, Bipolar disorder, in partial remission, most recent episode mixed F31.77 [place] [address] [place] [id number] [place] [address] 58451- 9802 Oct, Bipolar disorder, in partial remission, most recent episode mixed F31.77 [facility] [address] [place] [address] 28595 -1765 Oct, Scabies B86 [place] [address] [id number] [place] [address] 72366- 9421 Oct, Bipolar disorder, in partial remission, most recent episode mixed F31.77 [facility] [address] [place] [address] 39567- 2419 Oct, [place] [address] [id number] [place] [address] 21094- 3272 Oct, Bipolar II disorder F31.81 and Post-traumatic stress disorder, chronic F43.12 [facility] [id number] [place] [address] 50056 -4478 Oct, Scafrancis Luna [place] [address] [place] [id number] [place] [address] 35835- 0265 Oct, [place] [address] [place] [id number] [place] [address] 45306- 1763 September, Bipolar II disorder F31.81 and Post-traumatic stress disorder, chronic F43.12 [place] [address] [place] [id number] [place] [address] 09619- 6449 September, Bipolar disorder, in partial remission, most recent episode mixed F31.77 [place] [address] [id number] [place] [address] 22407- 4932 September, COPD exacerbation J44.1 and Elevated blood pressure reading R03.0 [place] [address] [place] [id number] [place] [address] 88702- 4175 September, [place] [address] 71900- 9140 September, Pain in left ankle and joints of left foot M25.572 ; Dermatitis L30.9 and Other chronic pain G89.29 [place] [address] [place] [id number] [place] [address] 79140- 5078 Aug, Right elbow pain M25.521 and Elevated blood pressure reading R03.0 [place] [address] [place] [id number] [place] [address] 14251- 2043 Aug, Bipolar disorder, current episode mixed, mild F31.61 and BMI 40.0-44.9, adult Z68.41 [place] [address] [place] [id number] [place] [address] 21452- 3022 Aug, [place] [address] 05683- 8698 Aug, Bipolar II disorder F31.81 and Post-traumatic stress disorder, chronic F43.12 [place] [address] [place] [id number] [place] [address] 10163- 9866 Jul, Elevated blood pressure reading R03.0 [place] [address] [id number] [place] [address] 46014- 7261 Jul, Bipolar II disorder F31.81 and Post-traumatic stress disorder, chronic F43.12 [place] [id number] [place] [address] 92766- 6461 Jul, Bipolar disorder, current episode mixed, mild F31.61 [facility] [place] [address] 99221 -7150 Jul, Right foot pain M79.671 ; Allergic contact dermatitis, unspecified trigger L23.9 ; Contusion of right foot, initial encounter S90.31XA and BMI 40.0-44.9, adult Z68.41 [facility] [place] [address] [address] [id number] [place] [address] 88459 -8869 Jul, 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 [place] [address] 82854- 7991 Jul, [place] [address] 73898- 0622 15 Jul, 2017 Bipolar disorder, current episode mixed, mild F31.61 [place] [address] [place] [id number] [place] [address] 38446- 9155 15 Jul, 2017 Bipolar II disorder F31.81 ; Post-traumatic stress disorder , chronic F43.12 and Memory change R41.3 [place] [address] [address] [id number] [place] [address] 52726- 2840 14 Jul, 2017 Elevated blood pressure reading R03.0 ; Chronic obstructive pulmonary disease, unspecified COPD type J44.9 ; Long-term use of high-risk medication Z79.899 and Cognitive decline R41.89 [place] [address] [place] [id number] [place] [address] 30780- 9022 06 Jul, 2017 Elevated blood pressure reading R03.0 [place] [address] 40793- 7318 05 Jul, 2017 [facility] [address] [place] [address] 77991- 2024 Jul, Bipolar II disorder F31.81 ; Post-traumatic stress disorder , chronic F43.12 and Memory change R41.3 [place] [address] [place] [address] 47394- 8184 Jun, [facility] [id number] [place] [address] 86186- 4207 Jun, Bipolar II disorder F31.81 ; Post-traumatic stress disorder , chronic F43.12 and Memory change R41.3 [place] [address] [place] [id number] [place] [address] 80917- 1737 Jun, Localized swelling, mass or lump of neck R22.1 ; Slow transit constipation K59.01 and Elevated blood pressure reading R03.0 [place] [address] [place] [id number] [place] [address] 44443- 5159 Jun, [place] [address] [place] [id number] [place] [address] 19622- 4374 Jun, Bipolar affective disorder, currently manic, mild F31.11 [facility] [address] [address] May, [facility] [address] [place] [address] 17838 -8589 14 May, 2017 [facility] [address] [id number] [place] [address] 41658- 1173 13 May, 2017 Bipolar II disorder F31.81 ; Post-traumatic stress disorder , chronic F43.12 and Memory change R41.3 [facility] [address] [place] [address] 17503- 6386 May, [place] [address] [place] [address] 87861- 8873 08 May, 2017 [place] [address] [address]- 0445 05 May, 2017 Bipolar affective disorder, currently manic, mild F31.11 [facility] [id number] [place] [address] 64774- 8109 May, [facility] [id number] [place] [address] 41989 -4811 May, Localized swelling, mass or lump of neck R22.1 and Localized swelling, mass and lump, head R22.0 [facility] [id number] [place] [address] 83593- 2388 Apr, [place] [address] [id number] [place] [address] 67392- 0730 Apr, Bipolar affective disorder, currently manic, mild F31.11 [place] [address] [place] [id number] [place] [address] 59821- 1520 07 Apr, 2017 Bipolar II disorder F31.81 [place] [address] [id number] [place] [address] 39742- 3446 07 Apr, 2017 [place] [address] [place] [id number] [place] [address] 62850- 1048 Apr, Bipolar affective disorder, currently manic, mild F31.11 [place] [address] [place] [id number] [place] [address] 48409- 5702 Apr, Actinic keratosis L57.0 [facility] [address] [id number] [place] [address] 55266- 3472 Apr, Bipolar affective disorder, currently manic, mild F31.11 [place] [id number] [place] [address] 93501- 2966 Apr, [facility] [id number] [place] [address] 04212 -3624 Mar, Allergic contact dermatitis, unspecified trigger L23.9 and Right leg pain M79.604 [facility] [address] [address]- 9319 Mar, [facility] [id number] [place] [address] 11008- 5024 Mar, Bipolar II disorder F31.81 ; Post-traumatic stress disorder , chronic F43.12 and Memory change R41.3 [facility] [address] [address]- 5909 Mar, Actinic keratosis L57.0 [facility] [address] [place] [address] 37569- 8410 28 Jan, 2017 Bipolar II disorder F31.81 ; Post-traumatic stress disorder , chronic F43.12 and Memory change R41.3 [place] [address] [address]- 9438 28 Jan, 2017 Bipolar affective disorder, currently manic, mild F31.11 [place] [address] [place] [address] 14344- 5590 Jan, Bipolar affective disorder, currently manic, mild F31.11 [place] [address] [place] [id number] [place] [address] 87127- 5233 07 Jan, 2017 Bipolar II disorder F31.81 ; Post-traumatic stress disorder , chronic F43.12 and Memory change R41.3 [place] [address], [place] [address]- 4454 Dec, Bipolar II disorder F31.81 ; Post-traumatic stress disorder , chronic F43.12 and Memory change R41.3 [place] [address], [place] [address]- 0570 Dec, Bipolar affective disorder, currently manic, mild F31.11 [facility] [address], [place] [address]- 4197 Dec, Bipolar affective disorder, currently manic, mild F31.11 [facility] [address] [place] [address] 30111- 0627 Dec, Post-traumatic stress disorder, chronic F43.12 [facility] [address], [place] [address]- 1711 Dec, Bipolar II disorder F31.81 ; Post-traumatic stress disorder , chronic F43.12 and Memory change R41.3 [facility] [address] [place] [address] 50123- 1519 Dec, Post-traumatic stress disorder, chronic F43.12 [facility] [address] [place] [address] 61534- 1465 Nov, [facility] [id number] [place] [address] 35202- 6896 Nov, Bipolar II disorder F31.81 ; Post-traumatic stress disorder , chronic F43.12 and Memory change R41.3 [place] [address] [place] [id number] [place] [address] 02118- 5052 Nov, [facility] [id number] [place] [address] 09032- 4324 Nov, Post-traumatic stress disorder, chronic F43.12 and Bipolar II disorder F31.81 [facility] [address] [place] [address] 88845- 9353 Nov, Actinic keratosis L57.0 [facility] [address], [place] [address]- 3694 Oct, Bipolar II disorder F31.81 ; Post-traumatic stress disorder , chronic F43.12 and Memory change R41.3 [facility] [address], [place] [address]- 5871 Oct, Post-traumatic stress disorder, chronic F43.12 ; Bipolar II disorder F31.81 and Memory change R41.3 [facility] [address], [place] [address]- 4455 Oct, Bipolar II disorder F31.81 ; Post-traumatic stress disorder , chronic F43.12 and Memory change R41.3 [facility] [address] [address]- 2589 Oct, Actinic keratosis L57.0 [facility] [address]- 5574 September, Bipolar II disorder F31.81 ; Post-traumatic stress disorder , chronic F43.12 and Memory change R41.3 [place] [address] [place] [address] 9399 September, Bipolar II disorder F31.81 ; Post-traumatic stress disorder , chronic F43.12 and Memory change R41.3 [place] [address] [place] [address] 79650- 6398 September, Post-traumatic stress disorder, chronic F43.12 ; Bipolar II disorder F31.81 and Memory change R41.3 [place] [address] [place] [address] 40962- 9075 Jul, Bipolar II disorder F31.81 ; Post-traumatic stress disorder , chronic F43.12 and Memory change R41.3 [place] [address] [place] [address] 33312- 9489 Jul, Bipolar II disorder F31.81 ; Post-traumatic stress disorder , chronic F43.12 and Memory change R41.3 [place] [address] [address]- 3211 Jul, Bipolar II disorder F31.81 ; Post-traumatic stress disorder , chronic F43.12 and Memory change R41.3 [place] [address], [place] [address]- 6836 Jul, Post-traumatic stress disorder, chronic F43.12 ; Bipolar II disorder F31.81 and Memory change R41.3 [place] [address] [address]- 6285 Jul, Tear of medial meniscus of right knee, unspecified tear type , unspecified whether old or current tear, initial encounter S83.241A [facility] [address] [id number] [place] [address] 16340- 5087 Jul, Bipolar II disorder F31.81 ; Post-traumatic stress disorder , chronic F43.12 and Memory change R41.3 [place] [address] [place] [id number] [place] [address] 21540- 4383 Jul, Shortness of breath R06.02 ; Mixed hyperlipidemia E78.2 and Chronic fatigue R53.82 [place] [address] [place] [id number] [place] [address] 94872- 6552 Jul, Bipolar II disorder F31.81 ; Post-traumatic stress disorder , chronic F43.12 and Memory change R41.3 [place] [address] 24437- 4882 Jul, [place] [address] 89125- 0343 Jun, Bipolar II disorder F31.81 ; Post-traumatic stress disorder , chronic F43.12 and Memory change R41.3 [place] [address] 53335- 0066 Jun, Post-traumatic stress disorder, chronic F43.12 ; Bipolar II disorder F31.81 and Memory change R41.3 [place] [address] [place] [id number] [place] [address] 83071- 3522 Jun, Right anterior knee pain M25.561 ; Shortness of breath R06.02 and Bronchiolitis J21.9 [place] [address] [place] [id number] [place] [address] 75811- 4432 Jun, [place] [address] 95895- 4981 Jun, Bipolar II disorder F31.81 ; Post-traumatic stress disorder , chronic F43.12 and Memory change R41.3 [place] [address] [place] [id number] [place] [address] 99716- 1329 Jun, [facility] [address], [place] [address] 2546 Jun, Bipolar II disorder F31.81 ; Post-traumatic stress disorder , chronic F43.12 and Memory change R41.3 [facility] [address], [place] [address]- 8076 May, [facility] [id number] [place] [address] 17770- 3586 May, [facility] [address] [place] [address] 87803- 7146 May, [facility] [address] [place] [address] 62817- 0286 May, Right anterior knee pain M25.561 ; Cough R05 ; Skin lesion of right arm L98.9 and Lesion of skin of face L98.9 [facility] [address] [place] [address] 51844- 8166 May, [facility] [address] [place] [address] 37023- 5486 May, Post-traumatic stress disorder, chronic F43.12 ; Memory change R41.3 and Bipolar I disorder, most recent episode manic F31.10 [facility] [address], [place] [address]- 4176 May, [facility] [address] [place] [address] 62010 2548 May, Right anterior knee pain M25.561 [facility] [address] [place] [address] 96194- 2606 May, [facility] [address] [place] [address] 74989- 4896 Apr, Bipolar II disorder F31.81 ; Post-traumatic stress disorder , chronic F43.12 and Memory change R41.3 [facility] [address], [place] [address]- 7235 Apr, Bipolar II disorder F31.81 ; Post-traumatic stress disorder , chronic F43.12 and Memory change R41.3 [place] [address] [place] [id number] [place] [address] 86415- 1318 Apr, Post-traumatic stress disorder, chronic F43.12 ; Bipolar II disorder F31.81 and Memory change R41.3 [place] [address] [place] [id number] [place] [address] 24930- 9873 Mar, Bipolar II disorder F31.81 ; Post-traumatic stress disorder , chronic F43.12 and Memory change R41.3 [place] [address] [place] [id number] [place] [address] 17052- 1557 Mar, Memory change R41.3 ; Confusion R41.0 and Dizziness R42 [place] [address] [place] [id number] [place] [address] 31088- 6781 Mar, Memory change R41.3 ; Encounter for immunization Z23 and Fatigue, unspecified type R53.83 [place] [address] [place] [id number] [place] [address] 26147- 6430 Mar, Bipolar II disorder F31.81 ; Post-traumatic stress disorder , chronic F43.12 and Memory change R41.3 [place] [address], [place] [address]- 2450 Jan, Bipolar II disorder F31.81 ; Post-traumatic stress disorder , chronic F43.12 and Memory change R41.3 [place] [address] [place] [address] 58256- 9964 19 Feb, 2016 Post-traumatic stress disorder, chronic F43.12 ; Bipolar II disorder F31.81 ; Anxiety disorder, unspecified F41.9 and Memory change R41.3 [place] [address] [place] [address] 19224- 3208 15 Feb, 2016 Bipolar II disorder F31.81 ; Post-traumatic stress disorder , chronic F43.12 and Memory change R41.3 [facility] [address], [place] [address]- 2233 Dec, Bipolar II disorder F31.81 ; Post-traumatic stress disorder , chronic F43.12 and Memory change R41.3 [facility] [address], [place] [address]- 1326 Dec, Memory loss R41.3 [facility] [address] [place] [id number] [place] [address] 09744- 7630 Dec, Bipolar II disorder F31.81 ; Post-traumatic stress disorder , chronic F43.12 and Memory change R41.3 [facility] [address] [place] [address] 62084- 5278 Nov, Bipolar II disorder F31.81 and Post-traumatic stress disorder, chronic F43.12 [facility] [address] [place] [address] 42531- 4401 Nov, Bipolar II disorder F31.81 ; Post-traumatic stress disorder , chronic F43.12 and Memory change R41.3 [facility] [address] [place] [address] 65767- 1067 Oct, Post-traumatic stress disorder, chronic F43.12 and Bipolar disorder, unspecified F31.9 [facility] [address] [address]- 3080 Oct, Bipolar II disorder F31.81 ; Post-traumatic stress disorder , chronic F43.12 and Memory change R41.3 [facility] [address] [address] Oct, Dental examination Z01.20 [facility] [address] [place] [address] 05909- 0121 September, Bipolar II disorder F31.81 ; Post-traumatic stress disorder , chronic F43.12 and Memory change R41.3 [facility] [address] [place] [address] 10318- 3462 Aug, Bipolar II disorder F31.81 and Post-traumatic stress disorder, chronic F43.12 [place] [address] [place] [id number] [place] [address] Aug, Bipolar II disorder F31.81 and Post-traumatic stress disorder, chronic F43.12 [place] [address] [place] [id number] [place] [address]44 Jul, Bipolar II disorder F31.81 and Post-traumatic stress disorder, chronic F43.12 [place] [address] [place] [id number] [place] [address] 55578- 3997 Jul, [place] [address] [place] [id number] [place]- 5[address] Jul, [place] [address] [place] [id number] [place] [address] 726093- 1698 Jul, Post-traumatic stress disorder, chronic F43.12 and Bipolar disorder, unspecified F31.9 [place] [address] [place] [id number] [place] [address] 47083- 1984 Jun, Bipolar II disorder F31.81 and Post-traumatic stress disorder, chronic F43.12 [place] [address] [place] [id number] [place] [address]- 6579 Jun, Post-traumatic stress disorder, chronic F43.12 and Bipolar disorder, unspecified F31.9 [place] [address] [place] [id number] [place] [phone] Jun, [id number] [place] [address]- [address] Jun, Pharyngeal dysphagia R13.13 ; Hoarseness R49.0 and Cough R05 [id number] [place] [address]- [address] Jun, Post-traumatic stress disorder, chronic F43.12 and Bipolar disorder, unspecified F31.9 [id number] [place] [address] 30 May, 2015 Cough R05 [facility] [id number] [place] [address] [id number] 30 May, 2015 Post-traumatic stress disorder, chronic F43.12 and Bipolar disorder, unspecified F31.9 [facility] [id number] [place] [address] 69455- 5971 22 May, 2015 Cough R05 [facility] [id number] [place] [address] 279685- 3929 16 May, 2015 [facility] [id number] [place] [address] [id number] 16 May, 2015 Dental examination Z01.20 [facility] [id number] [place] [address] 46300- 2731 15 May, 2015 Bipolar II disorder F31.81 and Post-traumatic stress disorder, chronic F43.12 [facility] [id number] [place] [address] 84519- 7338 14 May, 2015 [facility] [id number] [place] [address] 62949- 8080 14 May, 2015 Bipolar II disorder F31.81 and Anxiety disorder, unspecified F41.9 [facility] [id number] [place] [address] 28469- 3872 10 May, 2015 Memory change R41.3 and History of renal insufficiency syndrome Z87.448 [facility] [id number] [place] [address] 89776- 2996 May, Memory change R41.3 ; Dry mouth R68.2 and History of renal insufficiency syndrome Z87.448 [facility] [id number] [place] [address] 79646- 0612 May, Bipolar II disorder F31.81 and Post-traumatic stress disorder, chronic F43.12 [facility] [id number] [place] [address] 82689- 4414 Mar, Bipolar disorder, unspecified F31.9 and Generalized anxiety disorder F41.1 [facility] [address] [address] 4825 Mar, Bipolar II disorder F31.81 [facility] [address] [address] 0556 Mar, Encounter for immunization Z23 [facility] [id number] [place] [address] 62727- 4639 Mar, [facility] [id number] [place] [address] 33771- 7780 Mar, Bipolar II disorder F31.81 [facility] [id number] [place] [address] 95071- 6608 Mar, [facility] [id number] [place] [address] 00992- 1858 Jan, Bipolar disorder, unspecified 296.80 and Anxiety disorder 300.00 [facility] [address] [address] 6274 Jan, [facility] [id number] [place] [address] 59402- 0332 Jan, Bipolar disorder, unspecified 296.80 and Anxiety disorder 300.00 [facility] [id number] [place] [address] 56875- 8790 Dec, Bipolar disorder, unspecified 296.80 and Anxiety disorder 300.00 [facility] [address] [address]- 4439 Dec, [facility] [id number] [place] [address] 25039- 1694 Dec, Bipolar disorder, unspecified 296.80 and Anxiety disorder 300.00 [facility] [address] [address]- 5309 Nov, Bipolar disorder, unspecified 296.80 and Anxiety disorder 300.00 [facility] [id number] [address] 8175 Oct, Bipolar disorder, unspecified 296.80 and Anxiety disorder 300.00 [facility] [id number] [place] [address] 30505- 9896 Oct, Anxiety 300.00 and Bipolar disorder, unspecified 296.80 [facility] [id number] [place] [address] 62906- 0946 September, Bipolar disorder, unspecified 296.80 and Anxiety disorder 300.00 [facility] [address] [place] [address] 29540- 8008 September, [facility] [id number] [place] [address] 98104- 9915 Aug, Cough 786.2 [facility] [id number] [place] [address] 553802- 8876 Aug, [facility] [id number] [place] [address] 87829- 9420 Aug, [facility] [address] 9911 Jul, [facility] [address] 1286 Jul, [facility] [address], [place] [address]- 3186 Jul, [facility] [address] [address]- 6056 Jul, [facility] [address], [place] [address]- 5757 Jul, [facility] [address] [address]- 5146 Jul, [facility] [address], [place] [address]- 8956 Jun, [facility] [address], [place] [address]- 3657 Jun, [facility] [place] [facility] [address] [id number] [place] [address]- 7020 Jun, [facility] [place] [facility] [address] [id number] [place] [address]- 7454 Jun, [facility] [place] [facility] [address] [facility] [id number] [place] [address]- 1379 May, [facility] [place] [facility] [address] [id number] [place] [address]- 9336 May, [facility] [place] [facility] [address] [id number] [place] [address]- 7975 May, [facility] [place] [facility] [address] [id number] [place] [address]- 6572 May, [facility] [place] [facility] [address] [facility] [id number] [place] [address]- 6804 Apr, [facility] [place] [facility] [address] [facility] [id number] [place] [address]- 8120 Apr, [facility] [place] [facility] [address] [facility] [id number] [place] [address]- 2362 Mar, [facility] [place] [facility] [address] [facility] [id number] [place] [address]- 9398 Mar, [facility] [place] [facility] [address] [facility] [id number], [place] [address]- 2298 Mar, [facility] [place] [facility] [address] [facility] [id number], [place] [address]- 8327 Mar, [facility] [place] [facility] [address] [id number] [place] [address]- 6656 Mar, [facility] [place] [facility] [address] [facility] [id number] [place] [address]- 2247 Mar, [facility] [place] [facility] [address] [facility] [id number] [place] [address]- 9138 Jan, [facility] [place] [facility] [address] [id number] [place] [address]- 8475 Jan, 2013 [facility] [place] [facility] [address] [id number] [place] [address]- 6151 05 Jan, 2013 [facility] [place] [facility] [address] [id number] [place] [address]66 Jan, 2013 [facility] [place] [facility] [address] [id number] [place] [address]- 3676 Jan, 2013 [facility] [place] [facility] [address] [id number] [place] [address]- 9769 Jan, 2013 [facility] [place] [facility] [address] [id number] [place] [address]- 4803 Dec, [facility] [place] [facility] [address] [id number] [place] [address]- 4704 Dec, [facility] [place] [facility] [address] [id number] [place] [address]- 2365 Dec, [facility] [place] [facility] [address] [id number] [place] [address]- 3380 Dec, [facility] [place] [facility] [address] [id number] [place] [address]- 4996 Dec, [facility] [place] [facility] [address] [id number] [place] [address]- 4936 Dec, [facility] [place] [facility] [address] [id number] [place] [address]- 2241 Nov, [facility] [place] [facility] [address] [id number] [place] [address]- 5156 Nov, [facility] [place] [facility] [address] [id number] [place] [address]- 8466 Nov, [facility] [place] [facility] [address] [id number] [place] [address]- 2566 Nov, [facility] [place] [facility] [address] [id number] [place] [address]- 1832 Nov, [facility] [place] [facility] [address] [id number] [place] [address]- 0134 Nov, [facility] [place] [facility] [address] [id number] [place] [address]- 5774 Nov, [facility] [place] [facility] [address] [id number] [place] [address]- 7377 Nov, [facility] [place] [facility] [address] [id number] [place] [address]- 3567 Nov, [facility] [place] [facility] [address] [id number] [place] [address]- 0829 Nov, [facility] [place] [facility] [address] [id number] [place] [address]- 2586 September, [facility] [place] [facility] [address] [id number] [place] [address]- 3909 September, [facility] [place] [facility] [address] [id number] [place] [address]- 5765 September, [facility] [place] [facility] [address] [id number] [place] [address]- 8192 September, [facility] [place] [facility] [address] [id number] [place] [address]- 5847 September, [facility] [place] [facility] [address] [id number] [place] [address]- 0529 September, [facility] [place] [facility] [address] [id number] [place] [address]- 7223 September, [facility] [place] [facility] [address] [id number] [place] [address]- 2600 September, [facility] [place] [facility] [address] [id number] [place] [address]- 7568 Aug, [facility] [place] [facility] [address] [id number] [place] [address]- 4930 Aug, [facility] [place] [facility] [address] [id number] [place] [address]- 0819 Aug, [facility] [place] [facility] [address] [id number] [place] [address]- 7649 Aug, [facility] [place] [facility] [address] [id number] [place] [address]- 4151 Jul, [facility] [place] [facility] [address] [facility] [id number] [place] [address]- 7874 Jul, [facility] [place] [facility] [address] [id number] [place] [address]- 2005 Jul, [facility] [place] [facility] [address] [id number] [place] [address]- 6402 Jul, [facility] [place] [facility] [address] [id number] [place] [address]- 6370 18 Jul, 2013 [facility] [place] [facility] [address] [id number] [place] [address]- 4677 Jul, [facility] [place] [facility] [address] [id number] [place] [address]- 8849 Jul, [facility] [place] [facility] [address] [id number] [place] [address]- 5172 Jul, [facility] [place] [facility] [address] [facility] [id number] [place] [address]- 9407 Jul, [facility] [place] [facility] [address] [facility] [id number] [place] [address]- 7591 Jul, [facility] [place] [facility] [address] [id number] [place] [address]- 9228 Jul, [facility] [place] [facility] [address] [id number] [place] [address]- 1871 Jun, [facility] [place] [facility] [address] [id number] [place] [address]- 3339 Jun, [facility] [place] [facility] [address] [facility] [id number] [place] [address]- 3797 Jun, [facility] [place] [facility] [address] [id number] [place] [address]- 2830 Jun, [facility] [place] [facility] [address] [id number] [place] [address]- 2339 May, [facility] [place] [facility] [address] [id number] [place] [address]- 9020 May, [facility] [place] [facility] [address] [id number] [place] [address]- 9482 Apr, [facility] [place] [facility] [address] [id number] [place] [address]- 3684 Apr, [facility] [place] [facility] [address] [id number] [place] [address]- 0833 Apr, [facility] [place] [facility] [address] [id number] [place] [address]- 1554 Apr, [facility] [place] [facility] [address] [id number], [place] [address]- 0925 Apr, [facility] [place] [facility] [address] [id number] [place] [address]- 7609 Apr, [facility] [place] [facility] [address] [id number], [place] [address]- 1643 Apr, [facility] [place] [facility] [address] [id number], [place] [address]- 9707 Apr, [facility] [place] [facility] [address] [id number], [place] [address]- 5141 Apr, [facility] [place] [facility] [address] [id number] [place] [address]- 3554 Apr, [facility] [place] [facility] [address] [id number], [place] [address]- 1586 Apr, [facility] [place] [facility] [address] [id number], [place] [address]- 9486 Apr, [facility] [place] [facility] [id number], [place] [address]- 7857 Mar, [facility] [address], [place] [address]- 4212 Mar, [facility] [address] 8649 Mar, [facility] [address] 1797 Dec, [facility] [address], [place] [address]- 5678 Dec, [facility] [id number] [place] [address] 749348- 5955 Dec, [facility] [address], [place] [address]- 7694 Oct, [facility] [address], [place] [address]- 1598 May, [facility] [address], [place] [address]- 0671 May, [facility] [address] 2073 May, [facility] [id number], [place] [address]- 4079 Dec, IMMUNIZATIONS No Known Immunizations SOCIAL HISTORY Never Assessed REASON FOR VISIT f/katina Rosenberg MA , AIMS PLAN OF CARE Activity Details Follow Up 4 Weeks Reason: VITAL SIGNS Height 66 in 2017-12-23 Weight 238.1 lbs 2017-12-23 Heart Rate 92 bpm 2017-12-23 Respiratory Rate 20 2017-12-23 Oximetry 96 % 2017-12-23 BMI 38.43 kg/m2 2017-12-23 Blood pressure systolic 136 mmHg 2017-12-23 Blood pressure diastolic 72 mmHg 2017-12-23 MEDICATIONS Medication Instructions Dosage Frequency Start Date End Date Duration Status Trazodone HCl 100 MG Orally at night as needed for sleep 1-2 tab Jun, 90 days Active Permethrin 5 % Externally Apply from neck to toe at bed time. Leave for 8-10 hours then shower off in am. as directed Oct, 1 days Active Vitamin D 2000 UNIT Orally Once a day 1 tablet 24h Active Loxapine Succinate 5 MG Orally at night 1 capsule Oct, 90 days Active Abilify 30 MG Orally Once a day 1 tablet 24h Nov, 90 days Active Fish Oil 1000 MG Orally Once a day 2 capsule 24h Active Trihexyphenidyl HCl 2 MG Orally Three times a day 1 tablet 8h September, 90 days Active Advair Diskus 100-50 MCG/DOSE Inhalation Twice a day 1 puff 12h Active Omeprazole 40 MG Orally Once a day 1 capsule 24h Active Aspirin 81 MG Orally Once a day 1 tablet 24h Active Calcium 600 MG Orally Once a day 1 tablet with meals 24h 30 days Active Multivitamin Gummies Adult Active Melatonin 5 MG 1 tablet at bedtime as needed with food Active Albuterol Sulfate 108 (90 Base) MCG/ACT Inhalation every 4-6 hrs 1 puff as needed May, Active Hydrochlorothiazide 25 MG Orally Once a day 1 tablet in the morning 24h September, 90 days Active Premarin 0.9 MG Orally Once a day 1 tablet 24h Active Linzess 145 MCG Orally Once a day 1 capsule 24h Jun, Mar, 90 days Active Diclofenac Sodium 75 MG Orally Twice a day 1 tablet with food or milk 12h Active Cymbalta 60 MG Orally Once a day 1 Capsule 24h 90 days Active Triamcinolone Acetonide 0.1 % Externally Twice a day 1 application to affected area 12h Jul, 7 days Active RESULTS No Results PROCEDURES Procedure Date Ordered Result Body Site [facility] VISIT ESTABLISHED PATIENT December 23, 2017 INSTRUCTIONS [...] Bladder Surgical History Tubalization Hospitalization History [facility] 12/2014 Hospitalization History Obstructive Airway Disease, Mood disorder, cough-VC 07/02/15 Hospitalization History Bronchitis- [facility] 06/2016
--- OUTSIDE RECORDS SUMMARY | 2018-02-12 06:11 | XMS REPORT ---
Author Author SHANTAL TOWNSEND Organization [facility] Address [address] [place] [address] Care Team Providers Care Hiv/Aids Care Nurse Name Role Phone SHANTAL TOWNSEND Unavailable PROBLEMS Type Condition ICD9-CM Code SGA53-EV Code Onset Dates Condition Status SNOMED Code Problem Slow transit constipation K59.01 Active 60870178 Problem Bipolar disorder, current episode mixed, mild F31.61 Active 577155686 Problem Chronic obstructive pulmonary disease, unspecified COPD type J44.9 Active 75202871 Problem Bipolar II disorder F31.81 Active 68340456 Problem Post-traumatic stress disorder, chronic F43.12 Active 92247186 Problem Bipolar affective disorder, currently manic, mild F31.11 Active 392711441 Problem Lumbago with sciatica, left side M54.42 Active 249627784 Problem Essential hypertension I10 Active 04574606 Problem Other chronic pain G89.29 Active 76865720 Problem Bipolar disorder, in partial remission, most recent episode mixed F31.77 Active 82254163 Problem Paresthesias R20.2 Active 57714944 Problem Irritable bowel syndrome with both constipation and diarrhea K58.2 Active 41879323 ALLERGIES No Information ENCOUNTERS Encounter Location Date Diagnosis [facility] [id number] [place] [address] 52150- 5037 Apr, [facility] [id number] [place] [address] 66199- 2953 Jan, [facility] [id number] [place] [address] 94892- 4601 Jan, [facility] [id number] [place] [address] 05077- 7807 Dec, Bipolar disorder, in partial remission, most recent episode mixed F31.77 and Essential hypertension I10 [facility] [id number] [place] [address] 97026- 3012 Dec, Bipolar disorder, in partial remission, most recent episode mixed F31.77 [facility] [id number] [place] [address] 77056- 1366 Nov, Bipolar II disorder F31.81 and Post-traumatic stress disorder, chronic F43.12 [facility] [id number] [place] [address] 84157- 9116 Nov, Essential hypertension I10 ; Lymph node enlargement R59.9 ; Paresthesias R20.2 ; Irritable bowel syndrome with both constipation and diarrhea K58.2 ; Lumbago with sciatica, left side M54.42 and Other chronic pain G89.29 [facility] [id number] [place] [address] 01218- 3582 Nov, Bipolar disorder, in partial remission, most recent episode mixed F31.77 [facility] [id number] [place] [address] 03611- 5174 Oct, Bipolar disorder, in partial remission, most recent episode mixed F31.77 [facility] [id number] [place] [address] 63003 -6688 Oct, Scabies B86 [facility] [id number] [place] [address] 12510- 8911 Oct, Bipolar disorder, in partial remission, most recent episode mixed F31.77 [facility] [id number] [place] [address] 55515- 3317 Oct, [facility] [id number] [place] [address] 74677- 6886 Oct, Bipolar II disorder F31.81 and Post-traumatic stress disorder, chronic F43.12 [facility] [id number] [place] [address] 82661 -6609 Oct, Scabies B86 [facility] [id number] [place] [address] 96049- 1341 Oct, [facility] [id number] [place] [address] 67401- 1441 September, Bipolar II disorder F31.81 and Post-traumatic stress disorder, chronic F43.12 [facility] [id number] [place] [address] 17397- 6554 September, Bipolar disorder, in partial remission, most recent episode mixed F31.77 [facility] [id number] [place] [address] 36819- 9750 September, COPD exacerbation J44.1 and Elevated blood pressure reading R03.0 [facility] [address] 04041- 4582 September, [facility] [id number] [place] [address] 79961- 5165 September, Pain in left ankle and joints of left foot M25.572 ; Dermatitis L30.9 and Other chronic pain G89.29 [facility] [id number] [place] [address] 30807- 2409 Aug, Right elbow pain M25.521 and Elevated blood pressure reading R03.0 [facility] [id number] [place] [address] 61938- 3509 Aug, Bipolar disorder, current episode mixed, mild F31.61 and BMI 40.0-44.9, adult Z68.41 [facility] [id number] [place] [address] 78484- 2418 Aug, [facility] [id number] [place] [address] 44093- 5466 Aug, Bipolar II disorder F31.81 and Post-traumatic stress disorder, chronic F43.12 [facility] [id number] [place] [address] 81240- 2405 Jul, Elevated blood pressure reading R03.0 [facility] [address] 27304- 0245 Jul, Bipolar II disorder F31.81 and Post-traumatic stress disorder, chronic F43.12 [facility] [id number] [place] [address] 28016- 1794 Jul, Bipolar disorder, current episode mixed, mild F31.61 [facility] [address] 48747 -2508 Jul, Right foot pain M79.671 ; Allergic contact dermatitis, unspecified trigger L23.9 ; Contusion of right foot, initial encounter S90.31XA and BMI 40.0-44.9, adult Z68.41 [facility] [address] 7[address]30 -7587 Jul, 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 41224- 9523 Jul, [facility] [address] 72743- 3698 Jul, Bipolar disorder, current episode mixed, mild F31.61 [facility] [address] 19255- 8453 15 Jul, 2017 Bipolar II disorder F31.81 ; Post-traumatic stress disorder , chronic F43.12 and Memory change R41.[address] 55207- 6436 14 Jul, 2017 Elevated blood pressure reading R03.0 ; Chronic obstructive pulmonary disease, unspecified COPD type J44.9 ; Long-term use of high-risk medication Z79.899 and Cognitive decline R41.[address] 40151- 7002 06 Jul, 2017 Elevated blood pressure reading R03.0 [facility] [address] 06478- 0822 05 Jul, [address] [place] [address]- 5190 Jul, Bipolar II disorder F31.81 ; Post-traumatic stress disorder , chronic F43.12 and Memory change R41.3 [facility] [id number] [place] [address] 25468- 6445 Jun, [facility] [id number] [place] [address] 90879- 8765 Jun, Bipolar II disorder F31.81 ; Post-traumatic stress disorder , chronic F43.12 and Memory change R41.3 [facility] [id number] [place] [address] 36464- 3079 Jun, Localized swelling, mass or lump of neck R22.1 ; Slow transit constipation K59.01 and Elevated blood pressure reading R03.0 [facility] [id number] [place] [address] 25590- 4643 Jun, [facility] [id number] [place] [address] 01895- 8007 Jun, Bipolar affective disorder, currently manic, mild F31.11 [facility] [id number] [place] [address] 36244 -2542 15 May, 2017 [facility] [id number] [place] [address] 91643 -6112 14 May, 2017 [facility] [id number] [place] [address] 38801- 5022 May, Bipolar II disorder F31.81 ; Post-traumatic stress disorder , chronic F43.12 and Memory change R41.3 [facility] [id number] [place] [address] 03685- 6252 May, [facility] [id number] [place] [address] 92229- 3390 08 May, 2017 [facility] [id number] [place] [address] 49882- 3168 05 May, 2017 Bipolar affective disorder, currently manic, mild F31.11 [facility] [address] [place] [address] 69372- 7004 May, [facility] [id number] [place] [address] 97095 -8581 May, Localized swelling, mass or lump of neck R22.1 and Localized swelling, mass and lump, head R22.0 [facility] [id number] [place] [address] 35109- 8891 Apr, [facility] [id number] [place] [address] 73078- 2804 Apr, Bipolar affective disorder, currently manic, mild F31.11 [facility] [id number] [place] [address] 96180- 2650 Apr, Bipolar II disorder F31.81 [facility] [id number] [place] [address] 60949- 2397 Apr, [facility] [id number] [place] [address] 97129- 1031 Apr, Bipolar affective disorder, currently manic, mild F31.11 [facility] [id number] [place] [address] 43321- 5415 Apr, Actinic keratosis L57.0 [facility] [address] [place] [address] 11990- 0528 Apr, Bipolar affective disorder, currently manic, mild F31.11 [facility] [address] [place] [address] 49486- 1508 Apr, [facility] [id number] [place] [address] 38164 -3681 Mar, Allergic contact dermatitis, unspecified trigger L23.9 and Right leg pain M79.604 [facility] [id number] [place] [address] 33232- 0501 Mar, [facility] [address] [address]- 6806 Mar, Bipolar II disorder F31.81 ; Post-traumatic stress disorder , chronic F43.12 and Memory change R41.3 [facility] [address] [address]- 2817 04 Mar, 2017 Actinic keratosis L57.0 [facility] [address] [place] [address] 36732- 8906 Jan, Bipolar II disorder F31.81 ; Post-traumatic stress disorder , chronic F43.12 and Memory change R41.3 [facility] [id number] [place] [address] 60240- 4688 28 Jan, 2017 Bipolar affective disorder, currently manic, mild F31.11 [facility] [address] [address]- 0971 13 Jan, 2017 Bipolar affective disorder, currently manic, mild F31.11 [facility] [address] [address]- 9417 07 Jan, 2017 Bipolar II disorder F31.81 ; Post-traumatic stress disorder , chronic F43.12 and Memory change R41.3 [facility] [address] [address]- 7877 Dec, Bipolar II disorder F31.81 ; Post-traumatic stress disorder , chronic F43.12 and Memory change R41.3 [facility] [address] [address]- 1205 Dec, Bipolar affective disorder, currently manic, mild F31.11 [facility] [address] [address]- 2963 Dec, Bipolar affective disorder, currently manic, mild F31.11 [facility] [address] [address]- 1340 Dec, Post-traumatic stress disorder, chronic F43.12 [facility] [id number] [address]- 1827 Dec, Bipolar II disorder F31.81 ; Post-traumatic stress disorder , chronic F43.12 and Memory change R41.3 [facility] [address] [place] [address] 60416- 2979 Dec, Post-traumatic stress disorder, chronic F43.12 [facility] [address] [place] [address] 38796- 2577 Nov, [facility] [id number] [place] [address] 00316- 9517 Nov, Bipolar II disorder F31.81 ; Post-traumatic stress disorder , chronic F43.12 and Memory change R41.3 [facility] [address] [place] [address] 88780- 3745 Nov, [facility] [id number] [place] [address] 95268- 9564 Nov, Post-traumatic stress disorder, chronic F43.12 and Bipolar II disorder F31.81 [facility] [address] [place] [address] 87887- 6689 Nov, Actinic keratosis L57.0 [facility] [address] [place] [address] 80055- 8412 Oct, Bipolar II disorder F31.81 ; Post-traumatic stress disorder , chronic F43.12 and Memory change R41.3 [facility] [address] [place] [address] 57723- 3918 Oct, Post-traumatic stress disorder, chronic F43.12 ; Bipolar II disorder F31.81 and Memory change R41.3 [facility] [address] [place] [address] 58670- 1204 Oct, Bipolar II disorder F31.81 ; Post-traumatic stress disorder , chronic F43.12 and Memory change R41.3 [facility] [address] [place] [address] 34635- 6827 Oct, Actinic keratosis L57.0 [facility] [address] [address]- 6353 September, Bipolar II disorder F31.81 ; Post-traumatic stress disorder , chronic F43.12 and Memory change R41.3 [facility] [address] [address]- 0534 September, Bipolar II disorder F31.81 ; Post-traumatic stress disorder , chronic F43.12 and Memory change R41.3 [facility] [address] [place] [address] 89221- 9737 September, Post-traumatic stress disorder, chronic F43.12 ; Bipolar II disorder F31.81 and Memory change R41.3 [facility] [id number] [place] [address] 68341- 5808 Jul, Bipolar II disorder F31.81 ; Post-traumatic stress disorder , chronic F43.12 and Memory change R41.3 [facility] [address] [place] [address] 68541- 1471 Jul, Bipolar II disorder F31.81 ; Post-traumatic stress disorder , chronic F43.12 and Memory change R41.3 [facility] [address] [place] [address] 81094- 4846 Jul, Bipolar II disorder F31.81 ; Post-traumatic stress disorder , chronic F43.12 and Memory change R41.3 [facility] [address] [address]- 8126 Jul, Post-traumatic stress disorder, chronic F43.12 ; Bipolar II disorder F31.81 and Memory change R41.3 [facility] [address] [place] [address] 98719- 7763 Jul, Tear of medial meniscus of right knee, unspecified tear type , unspecified whether old or current tear, initial encounter S83.241A [facility] [id number] [place] [address] 44193- 1117 Jul, Bipolar II disorder F31.81 ; Post-traumatic stress disorder , chronic F43.12 and Memory change R41.3 [facility] [id number] [place] [address] 45288- 9097 Jul, Shortness of breath R06.02 ; Mixed hyperlipidemia E78.2 and Chronic fatigue R53.82 [facility] [id number] [place] [address] 19103- 1173 Jul, Bipolar II disorder F31.81 ; Post-traumatic stress disorder , chronic F43.12 and Memory change R41.3 [facility] [id number] [place] [address] 54562- 2060 Jul, [facility] [id number] [place] [address] 97544- 0562 Jun, Bipolar II disorder F31.81 ; Post-traumatic stress disorder , chronic F43.12 and Memory change R41.3 [facility] [id number] [place] [address] 86811- 6102 Jun, Post-traumatic stress disorder, chronic F43.12 ; Bipolar II disorder F31.81 and Memory change R41.3 [facility] [id number] [place] [address] 36888- 4644 Jun, Right anterior knee pain M25.561 ; Shortness of breath R06.02 and Bronchiolitis J21.9 [facility] [id number] [place] [address] 21255- 3242 Jun, [facility] [id number] [place] [address] 65480- 2276 Jun, Bipolar II disorder F31.81 ; Post-traumatic stress disorder , chronic F43.12 and Memory change R41.3 [facility] [id number] [place] [address] 52025- 8311 Jun, [facility] [id number] [place] [address] [place] [address]- 0257 Jun, Bipolar II disorder F31.81 ; Post-traumatic stress disorder , chronic F43.12 and Memory change R41.3 [facility] [address] [address]- 6856 May, [facility] [address] [address]- 3946 May, [facility] [id number] [place] [address] 30324- 0716 May, [facility] [address] [place] [address] 28036- 4436 May, Right anterior knee pain M25.561 ; Cough R05 ; Skin lesion of right arm L98.9 and Lesion of skin of face L98.9 [facility] [address] [address]- 4926 May, [facility] [id number] [place] [address] 00171- 2996 May, Post-traumatic stress disorder, chronic F43.12 ; Memory change R41.3 and Bipolar I disorder, most recent episode manic F31.10 [facility] [address] [address]- 9626 May, [facility] [address] [address]- 8786 May, Right anterior knee pain M25.561 [facility] [address] [address] 2546 May, [facility] [address] [address]- 3866 Apr, Bipolar II disorder F31.81 ; Post-traumatic stress disorder , chronic F43.12 and Memory change R41.3 [facility] [address] [address]- 1506 Apr, Bipolar II disorder F31.81 ; Post-traumatic stress disorder , chronic F43.12 and Memory change R41.3 [facility] [id number] [place] [address] 76469- 4364 Apr, Post-traumatic stress disorder, chronic F43.12 ; Bipolar II disorder F31.81 and Memory change R41.3 [facility] [id number] [place] [address] 78952- 5585 Mar, Bipolar II disorder F31.81 ; Post-traumatic stress disorder , chronic F43.12 and Memory change R41.3 [facility] [id number] [place] [address] 32847- 2285 Mar, Memory change R41.3 ; Confusion R41.0 and Dizziness R42 [facility] [id number] [place] [address] 78059- 1587 Mar, Memory change R41.3 ; Encounter for immunization Z23 and Fatigue, unspecified type R53.83 [facility] [id number] [place] [address] 00373- 1284 Mar, Bipolar II disorder F31.81 ; Post-traumatic stress disorder , chronic F43.12 and Memory change R41.3 [facility] [id number] [place] [address] 67487- 4671 Jan, Bipolar II disorder F31.81 ; Post-traumatic stress disorder , chronic F43.12 and Memory change R41.3 [facility] [id number] [place] [address] 03571- 4881 Jan, Post-traumatic stress disorder, chronic F43.12 ; Bipolar II disorder F31.81 ; Anxiety disorder, unspecified F41.9 and Memory change R41.3 [facility] [id number] [place] [address] 20139- 7570 15 Feb, 2016 Bipolar II disorder F31.81 ; Post-traumatic stress disorder , chronic F43.12 and Memory change R41.3 [facility] [id number] [place] [address] 39920- 5010 Dec, Bipolar II disorder F31.81 ; Post-traumatic stress disorder , chronic F43.12 and Memory change R41.3 [facility] [address] [place] [address] 59380- 3167 Dec, Memory loss R41.3 [facility] [address] [place] [address] 55496- 3003 Dec, Bipolar II disorder F31.81 ; Post-traumatic stress disorder , chronic F43.12 and Memory change R41.3 [facility] [address] [place] [address] 99712- 7617 Nov, Bipolar II disorder F31.81 and Post-traumatic stress disorder, chronic F43.12 [facility] [address] [place] [address] 41602- 6824 Nov, Bipolar II disorder F31.81 ; Post-traumatic stress disorder , chronic F43.12 and Memory change R41.3 [facility] [address] [place] [address] 77422- 7760 Oct, Post-traumatic stress disorder, chronic F43.12 and Bipolar disorder, unspecified F31.9 [facility] [address] [place] [address] 48522- 1976 Oct, Bipolar II disorder F31.81 ; Post-traumatic stress disorder , chronic F43.12 and Memory change R41.3 [facility] [address] [place] [address] [id number] Oct, Dental examination Z01.20 [facility] [address] [place] [address] 84602- 3084 September, Bipolar II disorder F31.81 ; Post-traumatic stress disorder , chronic F43.12 and Memory change R41.3 [facility] [address] [place] [address] 74288- 2181 Aug, Bipolar II disorder F31.81 and Post-traumatic stress disorder, chronic F43.12 [facility] [address] [place] [address] 85858- 9219 Aug, Bipolar II disorder F31.81 and Post-traumatic stress disorder, chronic F43.12 [facility] [id number] [place] [address]- 4054 Jul, Bipolar II disorder F31.81 and Post-traumatic stress disorder, chronic F43.12 [facility] [id number] [place] [address] 78969- 5463 Jul, [facility] [id number] [place] [address] 638755- 3141 Jul, [facility] [id number] [place] [address]- 0875 Jul, Post-traumatic stress disorder, chronic F43.12 and Bipolar disorder, unspecified F31.9 [place] [id number] [place] [address] 18663- 1753 Jun, Bipolar II disorder F31.81 and Post-traumatic stress disorder, chronic F43.12 [place] [id number] [place] [address] Jun, Post-traumatic stress disorder, chronic F43.12 and Bipolar disorder, unspecified F31.9 [place] [id number] [place] [address] 07582- 9047 Jun, [place] [id number] [place] [address] 059725- 4019 Jun, Pharyngeal dysphagia R13.13 ; Hoarseness R49.0 and Cough R05 [place] [address] [address] Jun, Post-traumatic stress disorder, chronic F43.12 and Bipolar disorder, unspecified F31.9 [place] [id number] [place] [address] 96140- 1199 May, Cough R05 [place] [id number] [address] 30 May, 2015 Post-traumatic stress disorder, chronic F43.12 and Bipolar disorder, unspecified F31.9 [facility] [id number] [place] [address] 08393- 9945 22 May, 2015 Cough R05 [facility] [id number] [place] [address] 33847- 0480 16 May, 2015 [facility] [id number] [place] [address] [id number] 16 May, 2015 Dental examination Z01.20 [place] [address] 935365- 6142 15 May, 2015 Bipolar II disorder F31.81 and Post-traumatic stress disorder, chronic F43.12 [facility] [id number] [place] [address] 93550- 3803 14 May, 2015 [facility] [id number] [place] [address] 55818- 5087 14 May, 2015 Bipolar II disorder F31.81 and Anxiety disorder, unspecified F41.9 [facility] [facility] [id number] [place] [address] 31297- 5923 May, Memory change R41.3 and History of renal insufficiency syndrome Z87.448 [facility] [id number] [place] [address] 11258- 3150 May, Memory change R41.3 ; Dry mouth R68.2 and History of renal insufficiency syndrome Z87.448 [facility] [id number] [place] [address] 32290- 2863 May, Bipolar II disorder F31.81 and Post-traumatic stress disorder, chronic F43.12 [facility] [id number] [place] [address] 36619- 8140 Mar, Bipolar disorder, unspecified F31.9 and Generalized anxiety disorder F41.1 [facility] [id number] [address] Mar, Bipolar II disorder F31.81 [facility] [id number] [place] [address] 06119- 0241 Mar, Encounter for immunization Z23 [facility] [id number] [place] [address] 02326- 0627 Mar, [facility] [id number] [place] [address] 55725- 8991 Mar, Bipolar II disorder F31.81 [facility] [id number] [place] [address] 19381- 2715 Mar, [facility] [id number] [place] [address] 88507- 6460 Jan, Bipolar disorder, unspecified 296.80 and Anxiety disorder 300.00 [facility] [id number] [place] [address] 09424- 1754 Jan, [facility] [id number] [place] [address] 74141- 7340 Jan, Bipolar disorder, unspecified 296.80 and Anxiety disorder 300.00 [facility] [id number] [place] [address] 63944- 4789 Dec, Bipolar disorder, unspecified 296.80 and Anxiety disorder 300.00 [facility] [address] [address] 8012 Dec, [facility] [id number] [place] [address] 20609- 0262 Dec, Bipolar disorder, unspecified 296.80 and Anxiety disorder 300.00 [facility] [id number] [place] [address] 50225- 4032 Nov, Bipolar disorder, unspecified 296.80 and Anxiety disorder 300.00 [facility] [address] [address] 3385 Oct, Bipolar disorder, unspecified 296.80 and Anxiety disorder 300.00 [facility] [id number] [address] 1395 Oct, Anxiety 300.00 and Bipolar disorder, unspecified 296.80 [facility] [address] [address] September, Bipolar disorder, unspecified 296.80 and Anxiety disorder 300.00 [facility] [id number] [place] [address] 544995- 1258 September, [facility] [id number] [place] [address] 66687- 3104 Aug, Cough 786.2 [facility] [id number] [place] [address] 06757- 6800 Aug, [facility] [id number] [place] [address] 13627- 4653 Aug, [facility] [id number] [place] [address] 24188- 8284 Jul, [facility] [id number] [address]- 2253 Jul, [facility] [id number] 6528 Jul, [facility] [id number] 3490 Jul, [facility] [id number] 4023 Jul, [facility] [id number] 3261 Jul, [facility] [id number] [address]- 1996 Jun, [facility] [id number] [address]- 4386 Jun, [facility] [id number] [place] [address] [place] [address]- 3093 Jun, [facility] [place] [facility] [address] [id number] [place] [address]- 6408 Jun, [facility] [place] [facility] [address] [id number] [place] [address] May, [facility] [place] [facility] [address] [id number] [place] [address]- 2824 May, [facility] [place] [facility] [address] [id number] [place] [address] May, [facility] [place] [facility] [address] [id number] [place] [address]37 May, [facility] [place] [facility] [address] [id number] [place] [address]- 8773 Apr, [facility] [place] [facility] [address] [id number] [place] [address]- 4304 Apr, [facility] [place] [facility] [address] [id number] [place] [address]- 3751 Mar, [facility] [place] [facility] [address] [id number] [place] [address]- 9688 Mar, [facility] [place] [facility] [address] [id number] [place] [address]- 6272 Mar, [facility] [place] [facility] [address] [id number] [place] [address]- 6763 Mar, [facility] [place] [facility] [address] [id number] [place] [address]- 2558 Mar, [facility] [place] [facility] [address] [id number] [place] [address]- 2682 Mar, [facility] [place] [facility] [address] [id number] [place] [address] Jan, [facility] [place] [facility] [address] [id number] [place] [address]- 3866 Jan, [facility] [place] [facility] [address] [id number] [place] [address]- 3939 05 Jan, 2013 [facility] [place] [facility] [address] [id number] [place] [address]- 1046 05 Jan, 2013 [facility] [place] [facility] [address] [id number] [place] [address]- 1796 Jan, 2013 [facility] [place] [facility] [address] [id number] [place] [address]- 4540 Jan, 2013 [facility] [place] [facility] [address] [id number] [place] [address]- 7616 Dec, [facility] [place] [facility] [address] [id number] [place] [address]- 0885 Dec, [facility] [place] [facility] [address] [id number] [place] [address]- 2102 Dec, [facility] [place] [facility] [address] [id number] [place] [address]- 6603 Dec, [facility] [place] [facility] [address] [id number] [place] [address]- 5049 Dec, [facility] [place] [facility] [address] [id number] [place] [address]- 8727 Dec, [facility] [place] [facility] [address] [id number] [place] [address]- 2457 Nov, [facility] [place] [facility] [address] [id number] [place] [address]- 2856 Nov, [facility] [place] [facility] [address] [id number] [place] [address]- 7844 Nov, [facility] [place] [facility] [address] [id number] [place] [address]- 2546 Nov, [facility] [place] [facility] [address] [id number] [place] [address] 2548 Nov, [facility] [place] [facility] [address] [id number] [place] [address]- 1271 Nov, [facility] [place] [facility] [address] [id number] [place] [address]- 5371 Nov, [facility] [place] [facility] [address] [id number] [place] [address]- 5697 Nov, [facility] [place] [facility] [address] [id number] [place] [address]- 6332 Nov, [facility] [place] [facility] [address] [id number] [place] [address]- 2497 Nov, [facility] [place] [facility] [address] [id number] [place] [address]- 5368 September, [facility] [place] [facility] [address] [id number] [place] [address]- 4331 September, [facility] [place] [facility] [address] [id number] [place] [address]- 4539 September, [facility] [place] [facility] [address] [id number] [place] [address]- 7003 September, [facility] [place] [facility] [address] [id number] [place] [address]- 4460 September, [facility] [place] [facility] [address] [id number] [place] [address]- 2859 September, [facility] [place] [facility] [address] [id number] [place] [address]- 4000 September, [facility] [place] [facility] [address] [id number] [place] [address]- 0649 September, [facility] [place] [facility] [address] [id number] [place] [address]- 0785 Aug, [facility] [place] [facility] [address] [id number] [place] [address]- 0243 Aug, [facility] [place] [facility] [address] [id number] [place] [address]- 4530 Aug, [facility] [place] [facility] [address] [id number] [place] [address]- 1353 Aug, [facility] [place] [facility] [address] [id number] [place] [address]- 7160 Jul, [facility] [place] [facility] [address] [id number] [place] [address]- 8416 Jul, [facility] [place] [facility] [address] [id number] [place] [address]- 0850 Jul, [facility] [place] [facility] [address] [id number] [place] [address]- 6801 Jul, [facility] [place] [facility] [address] [id number] [place] [address]- 4895 Jul, [facility] [place] [facility] [address] [id number] [place] [address]- 8118 Jul, [facility] [place] [facility] [address] [id number] [place] [address]- 4919 Jul, [facility] [place] [facility] [address] [id number] [place] [address]- 8956 Jul, [facility] [place] [facility] [address] [id number] [place] [address]- 5707 Jul, [facility] [place] [facility] [address] [facility] [id number] [place] [address]- 2832 Jul, [facility] [place] [facility] [address] [facility] [id number] [place] [address]- 3517 Jul, [facility] [place] [facility] [address] [id number] [place] [address]- 0779 Jun, [facility] [place] [facility] [address] [id number] [place] [address]- 7384 Jun, [facility] [place] [facility] [address] [id number] [place] [address]- 2069 Jun, [facility] [place] [facility] [address] [id number] [place] [address]- 0513 Jun, [facility] [place] [facility] [address] [id number] [place] [address]- 2803 May, [facility] [place] [facility] [address] [id number] [place] [address]- 3047 May, [facility] [place] [facility] [address] [facility] [id number] [place] [address]- 1576 Apr, [facility] [place] [facility] [address] [id number] [place] [address]- 9176 Apr, [facility] [place] [facility] [address] [id number] [place] [address]- 1999 Apr, [facility] [place] [facility] [address] [id number] [place] [address]- 0088 Apr, [facility] [place] [facility] [address] [id number] [place] [address]- 8298 Apr, [facility] [place] [facility] [address] [id number] [place] [address]- 6536 Apr, [facility] [place] [facility] [address] [id number] [place] [address]- 2925 Apr, [facility] [place] [facility] [address] [id number] [place] [address]- 8098 Apr, [facility] [place] [facility] [address] [id number] [place] [address]- 1492 Apr, [facility] [place] [facility] [address] [id number] [place] [address]- 8341 Apr, [facility] [place] [facility] [address] [id number] [place] [address]- 9891 Apr, [facility] [place] [facility] [address] [id number] [place] [address]- 9002 Apr, [facility] [place] [facility] [address] [id number] [place] [address]- 3937 Mar, [facility] [place] [facility] [id number] [address]- 4366 Mar, [facility] [id number] [address]- 7520 Mar, [facility] [id number] [address]- 3789 Dec, [facility] [id number] [address]- 8316 Dec, [facility] [id number] [address]- 5000 Dec, [facility] [id number] [address]- 7925 Oct, [facility] [id number] [address]- 0868 May, [facility] [id number] [address]- 8547 May, [facility] [id number] [address]- 1983 May, [facility] [id number] [address]- 6294 Dec, IMMUNIZATIONS No Known Immunizations SOCIAL HISTORY Never Assessed REASON FOR VISIT f/u PLAN OF CARE Activity Details Follow Up 2 Weeks Reason: VITAL SIGNS MEDICATIONS Unknown Medications RESULTS No Results PROCEDURES Procedure Date Ordered Result Body Site [facility] VISIT MENTAL HEALTH ESTAB PT December 24, 2017 Psychotherapy, patient &/family, 45 minutes, established patient December 24, 2017 INSTRUCTIONS MEDICATIONS ADMINISTERED No Known Medications [...] History Tubalization Hospitalization History [facility] 12/2014 Hospitalization History Obstructive Airway Disease, Mood disorder, cough-[facility] 07/02/15 Hospitalization History [facility]chitis- [facility] 06/2016
[2018-02-12 06:20] VITALS: BP 135/79
[2018-02-12] MEDS ORDERED: ceFAZolin 2 GM IV Premixed 50 ML IV ONE (06:30)
[2018-02-12] MEDS: LACTATED RINGERS 1,000 ML IV PRN ×2 (06:35→08:35)
[2018-02-12] MEDS ORDERED: DEXAMETHASONE 10 MG/ML (DECADRON) 1 ML VIAL ONE (06:45)
[2018-02-12] MEDS ORDERED: SEVOFLURANE (ULTANE) 15 ML INHAL SOLN ONE ×4 (06:45→08:33)
[2018-02-12] MEDS ORDERED: fentaNYL INJECTION 100 MCG/2 ML AMP ONE (06:45)
[2018-02-12] MEDS ORDERED: LIDOCAINE PF 2% 2 ML (XYLOCAINE) VIAL ONE (06:45)
[2018-02-12] MEDS ORDERED: ONDANSETRON 4 MG/2 ML (SDV) Z0FRAN ONE (06:45)
[2018-02-12] MEDS ORDERED: proPOfol 200 MG/20 ML (DIPRIVAN) VIAL IV ONE (06:45)
[2018-02-12] MEDS ORDERED: MIDAZOLAM 2 MG/2 ML (VERSED) VIAL ONE (06:46)
--- OUTSIDE RECORDS SUMMARY | 2018-02-12 06:57 | XMS REPORT | Continuity of Care Document ---
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 UNSPECIFIED 02/21/2017 BARBRA COOPER PLACEMENT OFFICER Ot J98.4 OTHER DISORDERS OF LUNG 02/21/2017 BARBRA COOPER PLACEMENT OFFICER Ot R06.00 DYSPNEA, UNSPECIFIED 03/01/2017 BARBRA COOPER APRN Ot J98.4 OTHER DISORDERS OF LUNG 03/01/2017 BARBRA COOPER APRN Ot R06.00 DYSPNEA, UNSPECIFIED 06/11/2017 JEAN BAPTISTEAHSAN BARBER PLACEMENT OFFICER Ot E04.2 NONTOXIC MULTINODULAR GOITER 06/11/2017 AHSAN [...] R06.00 DYSPNEA, UNSPECIFIED 06/13/2017 JEAN BAPTISTEAHSAN BARBER PLACEMENT OFFICER Ot E04.2 NONTOXIC MULTINODULAR GOITER 06/13/2017 AHSAN JEAN BAPTISTE APRN Ot R22.1 LOCALIZED SWELLING, MASS AND LUMP, NECK 06/30/2017 AHSAN JEAN BAPTISTE APRN Ot E04.2 NONTOXIC MULTINODULAR GOITER 06/30/2017 AHSAN JEAN BAPTISTE APRN Ot R22.1 LOCALIZED SWELLING, MASS AND LUMP, NECK 07/04/2017 MADMARYSOL Best RAILROAD SIGNAL TECHNICIAN Ot R22.1 LOCALIZED SWELLING, MASS AND LUMP, NECK 08/04/2017 MADLMARYSOL RAILROAD SIGNAL TECHNICIAN Ot R22.1 LOCALIZED SWELLING, MASS AND LUMP, [...] UNSPECIFIED 10/17/2017 KANDI ARCHER APRN Ot Z79.52 DETENTION (CURRENT) USE OF SYSTEMIC STER 10/17/2017 KANDI ARCHER APRN Ot Z79.82 PHOTOGRAPHY INTERN (CURRENT) USE OF ASPIRIN 10/17/2017 KANDI ARCHER [...] 10/17/2017 Ot R42 DIZZINESS AND GIDDINESS 10/17/2017 SWETHA GLOVER DO Ot E66.9 OBESITY, UNSPECIFIED 10/17/2017 SWETHA GLOVER DO Ot G47.9 SLEEP DISORDER, UNSPECIFIED 10/17/2017 SWETHA GLOVER DO Ot R05 COUGH 10/17/2017 SWETHA GLOVER DO Ot R06.00 DYSPNEA, UNSPECIFIED 10/17/2017 SWETHA GLOVER DO Ot R06.83 SNORING 10/17/2017 BARBRA COOPER APRN Ot J98.4 OTHER DISORDERS OF LUNG 10/17/2017 BARBRA COOPER APRN Ot R06.00 DYSPNEA, UNSPECIFIED 10/17/2017 AHSAN JEAN BAPTISTE APRN Ot E04.2 NONTOXIC MULTINODULAR GOITER 10/17/2017 AHSAN JEAN BAPTISTE APRN Ot R22.1 LOCALIZED SWELLING, MASS AND LUMP, NECK 10/17/2017 AJITHMARYSOL Nasir RAILROAD SIGNAL TECHNICIAN Ot R22.1 LOCALIZED SWELLING, MASS AND LUMP, [...] UNSPECIFIED 10/20/2017 KANDI ARCHER APRN Ot Z79.52 DETENTION (CURRENT) USE OF SYSTEMIC STER 10/20/2017 KANDI ARCHER APRN Ot Z79.82 PHOTOGRAPHY INTERN (CURRENT) USE OF ASPIRIN 10/20/2017 KANDI ARCHER [...] UNSPECIFIED 10/20/2017 KANDI ARCHER APRN Ot Z79.52 PHOTOGRAPHY INTERN (CURRENT) USE OF SYSTEMIC STER 10/20/2017 KANDI ARCHER APRN Ot Z79.82 PHOTOGRAPHY INTERN (CURRENT) USE OF ASPIRIN 10/20/2017 KANDI ARCHER APRN Ot Z86.79 PERSONAL HISTORY OF OTHER DISEASES OF TH 10/20/2017 KANDI ARCHER APRN Ot Z87.01 PERSONAL HISTORY OF PNEUMONIA (RECURRENT 10/20/2017 KANDI ARCHER APRN Ot Z87.19 PERSONAL HISTORY OF OTHER DISEASES OF TH 10/20/2017 KANDI ARCHER APRN Ot Z87.448 PERSONAL HISTORY OF OTHER DISEASES OF UR 01/27/2018 MADDY JOHNSON APRN Ot R59.0 LOCALIZED ENLARGED LYMPH NODES 01/28/2018 BARBRA COOPER APRN Ot J98.4 OTHER DISORDERS OF LUNG 01/28/2018 BARBRA COOPER APRN Ot R06.00 DYSPNEA, UNSPECIFIED 01/28/2018 ELIZABETH CASTILLO DO Ot Z01.818 ENCOUNTER FOR OTHER PREPROCEDURAL EXAMIN 02/03/2018 MARIANA TAMEZ, HERNESTO Morris Ot R13.10 DYSPHAGIA, UNSPECIFIED 02/03/2018 Ot E04.1 NONTOXIC SINGLE THYROID NODULE 02/03/2018 Ot R22.1 LOCALIZED SWELLING, MASS AND LUMP, NECK 02/03/2018 Ot 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 02/03/2018 Ot R41.0 DISORIENTATION, UNSPECIFIED 02/03/2018 Ot R41.3 OTHER AMNESIA 02/03/2018 Ot R42 DIZZINESS AND GIDDINESS 02/03/2018 SWETHA GLOVER DO Ot E66.9 OBESITY, UNSPECIFIED 02/03/2018 SWETHA GLOVER DO Ot G47.9 SLEEP DISORDER, UNSPECIFIED 02/03/2018 SWETHA GLOVER DO Ot R05 COUGH 02/03/2018 SWETHA GLOVER DO Ot R06.00 DYSPNEA, UNSPECIFIED 02/03/2018 SWETHA GLOVER DO Ot R06.83 SNORING 02/03/2018 BARBRA COOPER APRN Ot J98.4 OTHER DISORDERS OF LUNG 02/03/2018 BARBRA COOPER APRN Ot R06.00 DYSPNEA, UNSPECIFIED 02/03/2018 AHSAN JEAN BAPTISTE APRN Ot E04.2 NONTOXIC MULTINODULAR GOITER 02/03/2018 AHSAN JEAN BAPTISTE APRN Ot R22.1 LOCALIZED SWELLING, MASS AND LUMP, NECK 02/03/2018 MARYSOL CANSECO Ot R22.1 LOCALIZED SWELLING, MASS AND LUMP, NECK 02/03/2018 MADDY JOHNSON APRN Ot R59.0 LOCALIZED ENLARGED LYMPH NODES Procedures Code [place] [address] PSYTX PT&/FAMILY 45 MINUTES 03/03/2013 50492 PSYTX PT&/FAMILY 30 MINUTES 04/05/2013 88237 PSYTX PT&/FAMILY 45 MINUTES 04/05/2013 71253 PSYTX PT&/FAMILY 45 MINUTES 04/25/2013 34055 PSYTX PT&/FAMILY 30 MINUTES 05/30/2013 70932 PSYTX PT&/FAMILY 30 MINUTES 05/31/2013 33999 PSYTX PT&/FAMILY 30 MINUTES 06/14/2013 28815 ROUTINE VENIPUNCTURE 07/15/2013 92481 A1C (IN-HOUSE) 07/15/2013 95299 CBC 07/15/2013 2829253 GFR CALC (RESULT ONLY) 07/15/2013 71053 CMP 07/15/2013 26386 LIPID PANEL 07/15/2013 17664 TSH 07/15/2013 75805 UA W/MICROSCOPY 07/20/2013 75831 URINE SODIUM, RANDOM 07/20/2013 PRO/CRE URINE PROTEIN TO CREATNINE RATIO 07/20/2013 15761 US RENAL ULTRASOUND, COMP 07/22/2013 93075 URINE CREATININE (RANDOM) 07/22/2013 06817 PSYTX PT&/FAMILY 45 MINUTES 08/06/2013 16756 PSYTX PT&/FAMILY 45 MINUTES 09/02/2013 55615 PSYTX PT&/FAMILY 45 MINUTES 09/20/2013 55038 PSYTX PT&/FAMILY 45 MINUTES 10/20/2013 98130 PSYTX PT&/FAMILY 45 MINUTES 12/01/2013 81159 THERAPUTIC INJ SQ/IM 12/15/2013 J2930 SOLUMEDROL INJ 12/15/2013 22978 PSYTX PT&/FAMILY 30 MINUTES 12/15/2013 59075 PSYTX PT&/FAMILY 30 MINUTES 12/29/2013 50253 PSYTX PT&/FAMILY 30 MINUTES 01/07/2014 99105 PSYTX PT&/FAMILY 45 MINUTES 02/04/2014 26419 PSYTX PT&/FAMILY 45 MINUTES 02/18/2014 89679 PSYTX PT&/FAMILY 45 MINUTES 06/14/2014 21168 PSYTX PT&/FAMILY 45 MINUTES 09/12/2014 52581 XRAY CHEST 2 VIEW 09/26/2014 Results Test [...] 7-25 CREATININE 0.79 mg/dL 0.50-1.05 eGFR NON-AFR. NIGERIEN 83 mL/min/1.73m2 > OR=60 eGFR 96 mL/min/1.73m2 [...] 10.7 fL 7.5-12.5 ABSOLUTE NEUTROPHILS 2927 cells/uL 5758-0578 ABSOLUTE LYMPHOCYTES 1906 cells/uL 850-3900 ABSOLUTE MONOCYTES 340 cells/uL 200-950 ABSOLUTE EOSINOPHILS 178 cells/uL 15-500 ABSOLUTE BASOPHILS 49 cells/uL 0-200 NEUTROPHILS 54.2 % NRG LYMPHOCYTES 35.3 % NRG MONOCYTES 6.3 % NRG EOSINOPHILS 3.3 % NRG BASOPHILS 0.9 % NRG [facility] - 07/16/17 10:55 GLUCOSE 128 mg/dL 65-99 UREA NITROGEN (BUN) 16 mg/dL 7-25 CREATININE 0.82 mg/dL 0.50-1.05 eGFR NON-AFR. NIGERIEN 79 mL/min/1.73m2 > OR=60 eGFR 91 mL/min/1.73m2 [...] Status Pt. Type Provider Facility Loc./Unit Complaint [id number] 09/26/2014 12:36:00 09/26/2014 23:59:59 CLS Outpatient MARYSOL CANSECO APRN [id number] 09/12/2014 07:55:00 09/12/2014 23:59:59 CLS Outpatient MCCLEEARY PSSHANTAL SCHWARTZ L [id number] 07/15/2014 09:56:00 07/15/2014 23:59:59 CLS Outpatient MURIEL ERWIN [id number] 06/14/2014 12:47:00 06/14/2014 23:59:59 CLS Outpatient MCCLEEARY SHANTAL PRITCHETT L [id number] 05/16/2014 10:23:00 05/16/2014 23:59:59 CLS Outpatient MURIEL ERWIN [id number] 02/18/2014 14:55:00 02/18/2014 23:59:59 CLS Outpatient AQUILINOLEEARY SHANTAL PRITCHETT L [id number] 02/04/2014 14:57:00 02/04/2014 23:59:59 CLS Outpatient MCCLEEARY SHANTAL PRITCHETT [id number] 02/02/2014 14:47:00 02/02/2014 23:59:59 CLS Outpatient LANGFORD MIKALDISHA [id number] 01/07/2014 13:47:00 01/07/2014 23:59:59 CLS Outpatient AQUILINOLEEARY SHANTAL PRITCHETT [id number] 12/29/2013 16:29:00 12/29/2013 23:59:59 CLS Outpatient AQUILINOLEEARY SHANTAL PRITCHETT [id number] 12/15/2013 15:07:00 12/15/2013 23:59:59 CLS Outpatient MCCLEEARY SHANTAL PRITCHETT [id number] 12/01/2013 13:46:00 12/01/2013 23:59:59 CLS Outpatient MCCLEEARY PSSHANTAL SCHWARTZ L [id number] 10/29/2013 09:31:00 10/29/2013 23:59:59 CLS Outpatient LANGFORD PLACEMENT OFFICERDISHA Sanon [id number] 10/20/2013 08:48:00 10/20/2013 23:59:59 CLS Outpatient MCCLEEARY PSSHANTAL SCHWARTZ [id number] 09/30/2013 14:50:00 09/30/2013 23:59:59 CLS Outpatient LANGFORD PLACEMENT OFFICERDISHA Sanon [id number] 09/20/2013 14:51:00 09/20/2013 23:59:59 CLS Outpatient MCCLEEARY PSYD, ASHLEY L [id number] 09/02/2013 13:36:00 09/02/2013 23:59:59 CLS Outpatient SHANTAL TOWNSEND PSYD [id number] 08/06/2013 08:56:00 08/06/2013 23:59:59 CLS Outpatient SHANTAL TOWNSEND PSYD [id number] 07/19/2013 17:56:00 07/19/2013 23:59:59 CLS Outpatient DON SWEENEY MD [id number] 07/15/2013 08:30:00 07/15/2013 23:59:59 CLS Outpatient DON SWEENEY MD [id number] 07/08/2013 14:22:00 07/08/2013 23:59:59 CLS Outpatient DON SWEENEY MD [id number] 06/11/2013 15:21:00 06/11/2013 23:59:59 CLS Outpatient GRAZYNA LONG LCPC [id number] 05/14/2013 15:56:00 05/14/2013 23:59:59 CLS Outpatient GRAZYNA LONG LCPC [id number] 04/16/2013 15:59:00 04/16/2013 23:59:59 CLS Outpatient GRAZYNA LONG LCPC [id number] 04/03/2013 13:00:00 04/03/2013 23:59:59 CLS Outpatient DISHA LANGFORD APRN [id number] 03/02/2013 15:49:00 03/02/2013 23:59:59 CLS Outpatient GRAZYNA LONG LCPC [id number] 01/21/2013 13:51:00 01/21/2013 23:59:59 [place] [id number] 12/24/2017 16:00:00 12/24/2017 23:59:59 CLS Outpatient [facility] [id number] 07/16/2017 09:40:00 Document Registration [id number] 06/11/2017 08:40:00 Document Registration [id number] 01/24/2017 11:08:00 Document Registration [id number] 02/03/2018 08:25:00 02/03/2018 12:40:00 DIS Outpatient ELIZABETH CASTILLO DO [facility] ENDO SCREENING/FAMILY HX [id number] 01/28/2018 06:35:00 01/28/2018 11:16:00 DIS Outpatient ELIZABETH CASTILLO DO [facility] PREOP COLONOSCOPY [id number] 01/26/2018 08:22:00 01/26/2018 23:59:59 CLS Outpatient MADDY JOHNSON PLACEMENT OFFICER [facility] RAD LYMPH NODE ENLARGEMENT [id number] 10/17/2017 12:01:00 10/17/2017 14:31:00 DIS Emergency KANDI ARCHER PLACEMENT OFFICER [facility] ER DIFFICULTY BREATHING [id number] 06/13/2017 12:57:00 06/13/2017 23:59:59 CLS Outpatient MARYSOL CANSECO RAILROAD SIGNAL TECHNICIAN [facility] RAD LOCALIZED SWELLING, MASS OR LUMP OF NECK [id number] 05/19/2017 14:39:00 05/19/2017 23:59:59 CLS Outpatient AHSAN JEAN BAPTISTE PLACEMENT OFFICER [facility] RAD R22.1 LOCALIZED SWELLING,MASS OR LUMP OF NECK [id number] 03/02/2017 10:15:00 03/02/2017 23:59:59 CLS Preadmit BARBRA COOPER PLACEMENT OFFICER [facility] PUL R06.00 [id number] 02/11/2017 09:00:00 03/01/2017 00:01:00 DIS Outpatient BARBRA COOPER PLACEMENT OFFICER [facility] PUL R06.00 [id number] 12/17/2016 09:00:00 12/22/2016 00:01:00 DIS Outpatient BARBRA COOPER PLACEMENT OFFICER [facility] PUL R06.00 [id number] 07/24/2016 14:00:00 07/24/2016 14:43:00 DIS Outpatient SWETHA GLOVER DO [facility] SLEEP SNORING, SLEEP DISTURBANCE, OBESITY [id number] 07/22/2016 15:19:00 07/22/2016 23:59:59 CLS Outpatient SWETHA GLOVER DO [facility] RT DYSPNEA AND RESP. ABNORMALITIES,SLEEP DISTURBANCES [id number] 07/02/2016 15:44:00 07/03/2016 12:25:00 DIS Inpatient JOANN TAMEZ, RAMAKRISHNA Gentile [facility] 4TH OBSTRUCTIVE AIRWAY DISEASE WITH HYPOXIA [id number] 06/22/2016 10:16:00 06/22/2016 12:40:00 DIS Emergency MARILYN TAMEZ, TATYANA Baldwin [facility] ER SOA [id number] 06/05/2016 11:22:00 06/05/2016 15:13:00 DIS Emergency KALINA TAMEZ, ORIANA Vo [facility] ER SOA [id number] 08/21/2015 10:49:00 08/21/2015 23:59:59 CLS Outpatient EHRNESTO PEÑA MD [facility] RAD DYSPHAGIA [id number] 02/12/2018 06:04:00 ACT Outpatient ELIZABETH CASTILLO DO [facility] SDC NECK MASS [id number] 03/12/2016 09:15:00 Document Registration [id number] 08/31/2015 09:56:00 Document Registration [id number] 05/10/2015 11:19:00 Document Registration
[2018-02-12] MEDS ORDERED: FAMOTIDINE 20MG/2ML IV (PEPCID) IV ONE (07:00)
[2018-02-12] MEDS ORDERED: CATHETER FLUSH 10 ML SYR IV PRN (07:00)
[2018-02-12] MEDS ORDERED: BUPIVACAINE 0.5% 30 ML (SENSORCAINE) VIAL ONE (07:21)
[2018-02-12] MEDS ORDERED: LIDOCAINE 1% INJ 20 ML 20 ML VIAL ONE (07:21)
--- NOTE | 2018-02-12 07:51 | Progress Note-Pre Operative ---
Pre-Operative Progress Note H&P Reviewed The H&P was reviewed, patient examined and no changes noted. Date Seen by Provider: Feb 12, 2018 Time Seen by Provider: 07:40 Date H&P Reviewed: Feb 12, 2018 Time H&P Reviewed: 07:40 Pre-Operative Diagnosis: left supraclavicular mass ELIZABETH CASTILLO DO Feb 12, 2018 07:51
[2018-02-12] MEDS ORDERED: ACHD5005 PO (08:52)
--- NOTE | 2018-02-12 08:55 | Discharge Inst-Simple/Standard ---
Discharge Inst-Standard Discharge Medications New, Converted or Re-Newed RX: RX on Chart Patient Instructions/Follow Up Plan of Care/Instructions/FU: 2 WEEKS CASTILLO Activity as Tolerated: No Discharge Diet: Regular Diet Other Inst to Patient Follow up Appt: Make appointment for 2 week. Instructions: No lifting greater than 10 pounds. No strenuous activity. May shower in 24 hours, no tub bath or soaking. Use incentive spirometer at home as directed. No Smoking Skin/Wound Care: YOU HAVE SPECIAL GLUE OVER INCISION IT WILL FALL OFF ON ITS OWN. Symptoms to Report: Appetite Changes, Extremity Discoloration, Numbness/Tingling, Swelling Increased , Bleeding Excessive, Eyesight Changes, Pain Increased, Urine Color Change, Constipation(Persistent), Fever over 101 degree F, Pain/Pressure in chest, Urinating Difficulty, Cough Up/Vomit Blood, Heart Beat Irreg/Pounding, Pain/ Pressure in jaw, Vaginal Bleeding Increase, Cramps in feet or legs, Lightheadedness, Pain/Pressure in shoulder, Diarrhea(Persistent), Memory Changes Suddenly, Questions/Concerns, Weight gain consecutive days, Dizziness/ Fainting, Nausea/Vomiting, Shortness of Breath, Weight gain over 2 pounds If questions or concerns contact your physician Or seek help at emergency department. ELIZABETH CASTILLO DO Feb 12, 2018 08:55
--- NOTE | 2018-02-12 08:57 | Progress Note-Post Operative ---
Post-Operative Progess Note Surgeon (s)/Informatics Manager (s) Surgeon ELIZABETH CASTILLO DO Informatics Manager: NA Pre-Operative Diagnosis left supraclavicular mass Post-Operative Diagnosis SAME Procedure & Operative Findings Date of Procedure 02/12/18 Procedure Performed/Findings EXCISION LEFT SUPRACLAVICULAR MASS Anesthesia Type GEN Estimated Blood Loss Estimated blood loss (mL): MIN Specimens/Packing Specimens Removed LEFT SUPRACLAVICULAR MASS, LIKELY LIPOMA ELIZABETH CASTILLO DO Feb 12, 2018 08:57
[2018-02-12] MEDS ORDERED: ONDANSETRON 4 MG/2 ML (SDV) Z0FRAN IVP PRN (09:15)
[2018-02-12] MEDS ORDERED: morphine INJ 10 MG/ML 1ML (SYR OR VIAL) IVP ONE (09:15)
[2018-02-12 10:00] VITALS: BP 113/84
[2018-02-12 10:30] VITALS: BP 131/86
[2018-02-12 11:00] VITALS: BP 120/74
--- NOTE | 2018-02-12 14:02 | Anesthesia-General Post-Op ---
General Patient Condition Mental Status/LOC: Same as Preop Cardiovascular: Satisfactory Nausea/Vomiting: Absent Respiratory: Satisfactory Pain: Controlled Complications: Absent Post Op Complications Complications None Follow Up Care/Instructions Patient Instructions None needed. Anesthesia/Patient Condition Patient Condition Patient is doing well, no complaints, stable vital signs, no apparent adverse anesthesia problems. No complications reported per nursing. SHERLYN ARMENDARIZ CRNA Feb 12, 2018 14:02
--- NOTE | 2018-02-12 14:11 | OPERATIVE REPORT ---
DATE OF SERVICE: 02/12/2018 PREOPERATIVE DIAGNOSIS: Left supraclavicular mass. POSTOPERATIVE DIAGNOSIS: Left supraclavicular mass. PROCEDURE: Excision of left supraclavicular mass. SURGEON: Elizabeth Canales DO ANESTHESIA: General. ESTIMATED BLOOD LOSS: Minimal. COMPLICATIONS: None. INDICATIONS: The patient is a 57-year-old female with a palpable left supraclavicular mass. The ultrasound did not demonstrate any mass, but this is palpable. She was explained risks and benefits of procedure and wished to proceed with the procedure. Consent was signed on the chart. DESCRIPTION OF PROCEDURE: The patient was taken to the operating suite. She was prepped and draped in sterile fashion. Surgical pause was performed. Local anesthetic was used to infiltrate the area. A scalpel was used to make a small incision over the palpable mass. Cautery was used to dissect down through the subcutaneous tissue. A lipomatous appearing mass was present, which cautery was used to dissect around. Small venous vessel had some slight bleeding. A 3-0 Vicryl was used to tie this off. The mass was then completely removed. No other palpable masses were present. The wound was irrigated with copious amounts of irrigation. The subcutaneous tissues were then reapproximated with 3-0 Vicryl. The skin was then closed using 4-0 Vicryl. Skin Affix was then placed over the incision after it was washed and dried. The patient tolerated the procedure well without any complications. She was taken to recovery room in stable condition. Job ID: [id number] DocumentID: [id number] Dictated Date: 02/12/2018 08:59:47 Technology Recruiter Date: 02/12/2018 14:10:53 Dictated By: ELIZABETH CANALES DO [facility]
== END 2018-02-12 11:00 | disposition home or self-care (01) ==
LOC: SDC 06:04
PROVIDERS: ATTEND Surgery
DX: D17.0 Benign lipomatous neoplasm of skin and subcutaneous tissue of head, face and neck (principal); I10 Essential (primary) hypertension; I34.0 Nonrheumatic mitral (valve) insufficiency; J44.9 Chronic obstructive pulmonary disease, unspecified; G47.33 Obstructive sleep apnea (adult) (pediatric); K21.9 Gastro-esophageal reflux disease without esophagitis; G62.9 Polyneuropathy, unspecified; E66.9 Obesity, unspecified; Z68.37 Body mass index [BMI] 37.0-37.9, adult; Z79.82 Long term (current) use of aspirin; Z79.899 Other long term (current) drug therapy
CPT/HCPCS: 87081

== ENCOUNTER 2018-07-12 20:03 | Emergency (ER) | payer MEDICARE, OTHER ==
[~2018-07-12] VITALS: Ht 167.6 cm; Wt 104.3 kg
[~2018-07-12 20:03] MED LIST changes: +ACHD5005 PO
[2018-07-12] MEDS ORDERED: RT-ALBUTEROL/IPRATROPIUM 3 ML (DUONEB) VIAL ONE (20:14)
[2018-07-12] MEDS ORDERED: methylPREDNISolone 125 MG (Solu-MEDROL) VIAL IV STA (20:17)
[2018-07-12 20:29] LABS: BASOPHILS % (AUTO) 0 % (0-10); EOSINOPHILS # (AUTO) 0.1 10^3/uL (0.0-0.3); EOSINOPHILS % (AUTO) 1 % (0-10); HEMATOCRIT 41 % (35-52); HEMOGLOBIN 13.6 G/DL (11.5-16.0); LYMPHOCYTES # (AUTO) 1.5 X 10^3 (1.0-4.0); LYMPHOCYTES % (AUTO) 29 % (12-44); MEAN CORPUSCULAR HEMOGLOBIN 30 PG (25-34); MEAN CORPUSCULAR HGB CONC 33 G/DL (32-36); MEAN CORPUSCULAR VOLUME 91 FL (80-99); MEAN PLATELET VOLUME 10.4 FL (7.4-10.4); MONOCYTES # (AUTO) 0.5 X 10^3 (0.0-1.0); MONOCYTES % (AUTO) 9 % (0-12); NEUTROPHILS # (AUTO) 3.3 X 10^3 (1.8-7.8); NEUTROPHILS % (AUTO) 62 % (42-75); PLATELET COUNT 171 10^3/uL (130-400); RED CELL DISTRIBUTION WIDTH 13.2 % (10.0-14.5); WHITE BLOOD COUNT 5.3 10^3/uL (4.3-11.0)
[2018-07-12] MEDS ORDERED: RT-ALBUTEROL/IPRATROPIUM 3 ML (DUONEB) VIAL INH ONE ×2 (20:30→20:45)
[2018-07-12] MEDS ORDERED: ASPIRIN 81 MG CHEW (CHILDREN'S ASA) PO ONE (20:30)
[2018-07-12] MEDS: NITROGLYCERIN 0.4 MG SL TABS BTL 25'S SL PRN ×2 (20:31→20:37)
--- NOTE | 2018-07-12 20:37 | Diagnostic Imaging Report ---
EXAMINATION: Chest radiograph, portable AP view. DATE: July 12, 2018 at 2027 hours. INDICATION: 57-year-old female, shortness of breath. COMPARISON: October 17, 2017. FINDINGS: Heart size and mediastinal contours are unremarkable. There is no identified pneumothorax. There is no large pleural effusion. There is no identified focal airspace consolidation. IMPRESSION: No identified acute cardiopulmonary abnormality. Dictated by: Dictated on workstation # [id number]
[2018-07-12 20:41] LABS: INR 0.9 (0.8-1.4); PROTHROMBIN TIME PATIENT 11.7 SEC (12.2-14.7)
[2018-07-12 20:48] LABS: ALANINE AMINOTRANSFERASE 31 U/L (0-55); ALBUMIN 3.9 GM/DL (3.2-4.5); ALKALINE PHOSPHATASE 107 U/L (40-136); AMYLASE 54 U/L (25-125); BILIRUBIN,TOTAL 0.2 MG/DL (0.1-1.0); BUN/CREATININE RATIO 17; CALCIUM 10.4 MG/DL (8.5-10.1); CARBON DIOXIDE 26 MMOL/L (21-32); CHLORIDE 104 MMOL/L (98-107); CREATINE KINASE 30 U/L (29-168); CREATININE SERUM 0.87 MG/DL (0.60-1.30); GFR ESTIMATED > 60; GLUCOSE 107 MG/DL (70-105); LIPASE 40 U/L (8-78); MAGNESIUM 1.9 MG/DL (1.8-2.4); POTASSIUM 3.5 MMOL/L (3.6-5.0); SODIUM 142 MMOL/L (135-145)
[2018-07-12 20:51] LABS: TOTAL PROTEIN 6.9 GM/DL (6.4-8.2)
--- NOTE | 2018-07-12 20:52 | ED Respiratory ---
General Chief Complaint: Respiratory Problems Stated Complaint: SOB Nursing Triage Note: AMBULATORY TO ED WITH C/O HARD TIME BREATHING FOR 2 DAYS. STATES SHE HAS BEEN COUGHING, WHEEZING, AND COUGHING UP PHLEGM WHITE IN COLOR. SOA IS WORSE AT NOC, MID CHEST PRESSURE. DENIES FEVER/CHILLS/N/V. Allergies and Home Medications Allergies Coded Allergies: No Known Drug Allergies (Unverified , 01/28/18) Home Medications Albuterol Sulfate 1 Puff Puff, 2 PUFF IH Q4H PRN for WHEEZING 1 PUFF = 90 MCG Prescribed by: KANDI ARCHER on 10/17/17 1216 Aripiprazole 30 Mg Tablet, 30 MG PO DAILY, (Reported) Aspirin 81 Mg Tablet.dr, 81 MG PO DAILY, (Reported) Calcium Carbonate/Vitamin D3 1 Each Tablet, 1 TAB PO HS, (Reported) Cholecalciferol (Vitamin D3) 2,000 Unit Capsule, 2,000 UNIT PO HS, (Reported) Duloxetine HCl 60 Mg Capsule.dr, 60 MG PO HS, (Reported) Estrogens, Conjugated 0.9 Mg Tablet, 0.9 MG PO DAILY, (Reported) Hydrochlorothiazide 12.5 Mg Tablet, 12.5 MG PO DAILY, (Reported) Hydrocodone Bit/Acetaminophen 1 Tab Tab, 1 TAB PO Q4-6HR Prescribed by: ELIZABETH CASTILLO on 02/12/18 0852 Linaclotide 145 Mcg Capsule, 145 MCG PO DAILY, (Reported) Loxapine Succinate 10 Mg Capsule, 10 MG PO BID, (Reported) Multivitamin 1 Each Tab.chew, 2 TAB.CHEW PO HS, (Reported) [place]-3/Dha/Epa/Fish Oil 1 Each Capsule, 2,000 MG PO HS, (Reported) Omeprazole 40 Mg Capsule.dr, 40 MG PO DAILY, (Reported) Trazodone HCl 50 Mg Tablet, 50 MG PO HS, (Reported) Trihexyphenidyl HCl 2 Mg Tablet, 2 MG PO TID, (Reported) Past Adesoex-Vhpzvo-Igsbvt Hx Patient Social History Alcohol Use: Denies Use Number of Drinks Today: Alcohol Beverage of Choice: Wine Recreational Drug Use: No Smoking Status: Never a Smoker 2nd Hand Smoke Exposure: No Recent Foreign Travel: No Contact w/Someone Who Travel: No Recent Infectious Disease Expo: No Recent Hopitalizations: No Immunizations Up To Date PED Vaccines UTD: No Date of Pneumonia Vaccine: Apr 03, 2015 Date of Influenza Vaccine: Apr 02, 2018 Seasonal Allergies Seasonal Allergies: Yes Past Medical History Surgeries: Yes (SHOULDER, DISCECTOMY) Breast, Gallbladder, Hysterectomy, Orthopedic Respiratory: Yes Pneumonia, Chronic Bronchitis, COPD Currently Using CPAP: No Currently Using BIPAP: No Cardiac: Yes (mitral valve prolapse ) Hypertension, Valvular Heart Disease Neurological: Yes Headaches /Migraines Reproductive Disorders: No Sexually Transmitted Disease: No HIV/AIDS: No Genitourinary: Yes Kidney Stones, Neurogenic Bladder Gastrointestinal: Yes Gastroesophageal Reflux, Chronic Constipation Musculoskeletal: Yes Arthritis, Chronic Back Pain Endocrine: No HEENT: No Loss of Vision: Bilateral Hearing Impairment: Denies Cancer: No Psychosocial: Yes Anxiety, PTSD, Bipolar, Schizophrenia Integumentary: No Blood Disorders: No Adverse Reaction/Blood Tranf: Yes (HAS HAD BLOOD WITH NO REACTION) Family Medical History Alzheimer's disease Arthritis Asthma Colon cancer Diabetes mellitus Myocardial infarction Psychosocial problem Respiratory disorder Visual disorder No Pertinent Family Hx Physical Exam Vital Signs - First Documented 07/12/18 07/12/18 20:10 20:26 Temp 97.4 Pulse 108 Resp 20 B/P (MAP) 125/91 (102) Pulse Ox 98 O2 Delivery Room Air Capillary Refill : Less Than 3 Seconds Height: 5'6.00" Weight: 230lbs. 0.0oz. 104.390750rg; 37.1 BMI Method:Stated Progress/Results/Core Measures Suspected Sepsis Recent Fever Within 48 Hours: No Infection Criteria Present: None New/Unexplained Altered Menta: No Sepsis Screen: No Definite Risk SIRS Temperature:97.4 Pulse: 108 Respiratory Rate: 20 Laboratory Tests 07/12/18 20:20: White Blood Count 5.3 Blood Pressure 125 /91 Mean: 102 Laboratory Tests 07/12/18 20:20: Creatinine 0.87, INR Comment 0.9, Platelet Count 171, Total Bilirubin 0.2 Results/Orders Lab Results Laboratory Tests Test 07/12/18 20:20 Range/Units White Blood Count 5.3 4.3-11.0 10^3/uL Red Blood Count 4.51 4.35-5.85 10^6/uL Hemoglobin 13.6 11.5-16.0 G/DL Hematocrit 41 35-52 % Mean Corpuscular Volume 91 80-99 FL Mean Corpuscular Hemoglobin 30 25-34 PG Mean Corpuscular Hemoglobin Concent 33 32-36 G/DL Red Cell Distribution Width 13.2 10.0-14.5 % Platelet Count 171 130-400 10^3/uL Mean Platelet Volume 10.4 7.4-10.4 FL Neutrophils (%) (Auto) 62 42-75 % Lymphocytes (%) (Auto) 29 12-44 % Monocytes (%) (Auto) 9 0-12 % Eosinophils (%) (Auto) 1 0-10 % Basophils (%) (Auto) 0 0-10 % Neutrophils # (Auto) 3.3 1.8-7.8 X 10^3 Lymphocytes # (Auto) 1.5 1.0-4.0 X 10^3 Monocytes # (Auto) 0.5 0.0-1.0 X 10^3 Eosinophils # (Auto) 0.1 0.0-0.3 10^3/uL Basophils # (Auto) 0.0 0.0-0.1 10^3/uL Prothrombin Time 11.7 L 12.2-14.7 SEC INR Comment 0.9 0.8-1.4 Activated Partial Thromboplast Time 30 24-35 SEC Sodium Level 142 135-145 MMOL/L Potassium Level 3.5 L 3.6-5.0 MMOL/L Chloride Level 104 98-107 MMOL/L Carbon Dioxide Level 26 21-32 MMOL/L Anion Gap 12 5-14 MMOL/L Blood Urea Nitrogen 15 7-18 MG/DL Creatinine 0.87 0.60-1.30 MG/DL Estimat Glomerular Filtration Rate > 60 BUN/Creatinine Ratio 17 Glucose Level 107 H 70-105 MG/DL Calcium Level 10.4 H 8.5-10.1 MG/DL Corrected Calcium 10.5 H 8.5-10.1 MG/DL Magnesium Level 1.9 1.8-2.4 MG/DL Total Bilirubin 0.2 0.1-1.0 MG/DL Aspartate Amino Transf (AST/SGOT) 29 5-34 U/L Alanine Aminotransferase (ALT/SGPT) 31 0-55 U/L Alkaline Phosphatase 107 40-136 U/L Total Creatine Kinase 30 29-168 U/L Creatine Kinase MB 0.7 <6.6 NG/ML Myoglobin 22.3 10.0-92.0 NG/ML Troponin I < 0.028 <0.028 NG/ML B-Type Natriuretic Peptide < 10.0 <100.0 PG/ML Total Protein 6.9 6.4-8.2 GM/DL Albumin 3.9 3.2-4.5 GM/DL Amylase Level 54 25-125 U/L Lipase 40 8-78 U/L Micro Results Microbiology 07/12/18 Influenza Types A,B Antigen (SIXTO) - Final, Complete My Orders Orders - MADISON PRIETO DO Cbc With Automated Diff (07/12/18:) Magnesium (07/12/18:) Chest 1 View, Ap/Pa Only (07/12/18:) Ekg Tracing (07/12/18:) Cardiac Profile 1 (07/12/18:) Comprehensive Metabolic Panel (07/12/18:) Myoglobin Serum (07/12/18:) Protime With Inr (07/12/18:) Partial Thromboplastin Time (07/12/18:) O2 (07/12/18:) Monitor-Rhythm Ecg Trace Only (07/12/18:) Lipid Panel (07/13/18 06:00) Aspirin Chewable Tablet (Baby Aspirin Ch (07/12/18 20:30) Nitroglycerin 0.4 Mg Btl 25's (Nitrostat (07/12/18:30) Saline Lock/Iv-Start (07/12/18 20:) Creatine Kinase (07/12/18 20:17) Creatine Kinase Mb (07/12/18 20:17) Lipase (07/12/18 20:17) Amylase (07/12/18:17) BNP (07/12/18 20:17) Influenza A And B Antigens (07/12/18:17) Albuterol/Ipra Inhalation Soln (Duoneb I (07/12/18 20:30) Rt Request For Service (07/12/18:) Methylprednisolone Sod Succ (Solu-Medrol (07/12/18 20:17) Svn Small Volume Nebulizer (07/12/18 20:17) Albuterol/Ipra Inhalation Soln (Duoneb I (07/12/18 20:14) Albuterol/Ipra Inhalation Soln (Duoneb I (07/12/18 20:45) Svn Small Volume Nebulizer (07/12/18 20:33) Medications Given in ED Current Medications Medications Dose Ordered Sig/Kanchan Route Start Time Stop Time Status Last Admin Dose Admin Albuterol/ Ipratropium 3 ml ONCE ONCE INH 07/12/18 20:30 07/12/18 20:31 DC 07/12/18 20:26 3 ML Aspirin 324 mg ONCE ONCE PO 07/12/18 20:30 07/12/18 20:31 DC 07/12/18 20:29 324 MG Nitroglycerin 0.4 mg UD PRN SL 07/12/18 20:30 07/12/18 20:37 0.4 MG Vital Signs/I&O 07/12/18 07/12/18 07/12/18 07/12/18 20:10 20:26 20:35 20:39 Temp 97.4 Pulse 108 Resp 20 B/P (MAP) 125/91 (102) Pulse Ox 98 99 99 O2 Delivery Room Air Room Air Room Air Capillary Refill : Less Than 3 Seconds Blood Pressure Mean: 102 Progress Note : Progress Note LUNGS CLEAR AFTER NEB TREATMENT CHEST PAIN AND SHORTNESS OF BREATH RESOLVED WITH MEDICATIONS AND NEB TREATMENT PT IS COMFORTABLE GOING HOME Diagnostic Imaging Comments CXR--NO ACUTE PROCESS, PER RADIOLOGIST REPORT @ 2050 Reviewed: Reviewed by Me Departure Impression Primary Impression: Bronchitis Additional Impression: COPD exacerbation Disposition: 01 HOME, SELF-CARE Condition: Improved Departure-Patient Inst. Referrals: [facility] (PCP/Family) Primary Care Physician Patient Instructions: Acute Bronchitis, Adult (DC), Chronic Obstructive Pulmonary Disease (COPD), Including Emphysema Add. Discharge Instructions: USE YOUR HOME NEBULIZER WITH ALBUTEROL EVERY 4 HOURS NEEDED FOR BREATHING TAKE YOUR REGULAR MEDICATIONS PRESCRIBED TYLENOL AND MOTRIN NEEDED FOR PAIN OR FEVER FOLLOW UP WITH [facility] THIS WEEK FOR FURTHER CARE RETURN TO ER IF WORSE All discharge instructions reviewed with patient and/or family. Voiced understanding. Scripts Benzonatate (TESSALON PERLES) 100 Mg Capsule 1-2 TAB PO TID for Cough, #30 CAP Prov: MADISON PRIETO DO 07/12/18 Budesonide (Pulmicort) 1 Mg/2 Ml Ampul.neb 1 MG IH BID, #1 UNIT Prov: MADISON PRIETO DO 07/12/18 Methylprednisolone (Medrol) 4 Mg Tab.ds.pk 4 MG PO UD, #1 PKG Prov: MADISON PRIETO DO 07/12/18 Doxycycline Monohydrate (Doxycycline Monohydrate) 100 Mg Capsule 100 MG PO BID, #20 CAP Prov: MADISON PRIETO DO 07/12/18 MADISON PRIETO DO Jul 12, 2018 20:51
[2018-07-12 20:55] LABS: CREATINE KINASE MB 0.7 NG/ML (<6.6); MYOGLOBIN SERUM 22.3 NG/ML (10.0-92.0)
[2018-07-12] MEDS ORDERED: BENZ100C18 PO (21:33)
[2018-07-12] MEDS ORDERED: BUDE1AMP IH (21:33)
[2018-07-12] MEDS ORDERED: DOXY100C42 PO (21:33)
[2018-07-12] MEDS ORDERED: METH4TAB PO (21:33)
[2018-07-12 21:38] VITALS: BP 107/79
== END 2018-07-12 21:40 | disposition home or self-care (01) ==
LOC: EDUNIT# 20:03 → ER 20:04
DX: J44.1 Chronic obstructive pulmonary disease with (acute) exacerbation (principal); I10 Essential (primary) hypertension; G43.909 Migraine, unspecified, not intractable, without status migrainosus; K21.9 Gastro-esophageal reflux disease without esophagitis; F41.9 Anxiety disorder, unspecified; F43.10 Post-traumatic stress disorder, unspecified; F31.9 Bipolar disorder, unspecified; F20.9 Schizophrenia, unspecified; Z87.19 Personal history of other diseases of the digestive system; Z87.442 Personal history of urinary calculi; Z79.51 Long term (current) use of inhaled steroids; Z80.0 Family history of malignant neoplasm of digestive organs; Z82.49 Family history of ischemic heart disease and other diseases of the circulatory system; Z79.52 Long term (current) use of systemic steroids; Z79.82 Long term (current) use of aspirin; Z98.1 Arthrodesis status; Z98.890 Other specified postprocedural states; Z90.710 Acquired absence of both cervix and uterus; Z87.01 Personal history of pneumonia (recurrent)
CPT/HCPCS: 36415; 71045; 80053; 82150; 82550; 82553; 83690; 83735; 83874; 83880; 84484; 85025; 85610; 85730; 87804; 93041; 94640; 94664

== ENCOUNTER 2019-06-10 20:33 | Outpatient (CLI) | payer MEDICARE, OTHER ==
[~2019-06-10 20:33] MED LIST changes: +BENZ100C18 PO; +BUDE1AMP IH; +DOXY100C42 PO; -DULO60CA58 PO; +DULO60CA59 PO; +METH4TAB PO; -TRAZ-189 PO; +TRAZ-222 PO
== END 2019-06-11 06:45 | disposition home or self-care (01) ==
LOC: SLEEP 20:33
DX: G47.10 Hypersomnia, unspecified (principal); F39 Unspecified mood [affective] disorder; I10 Essential (primary) hypertension
CPT/HCPCS: 95810

== ENCOUNTER 2019-07-01 20:28 | Outpatient (CLI) | payer MEDICARE, OTHER ==
[~2019-07-01 20:28] MED LIST changes: +OMEP40CA27 PO; -OMEP40CA36 PO; -TRAZ-222 PO; +TRZ50T PO
== END 2019-07-02 05:59 | disposition home or self-care (01) ==
LOC: SLEEP 20:28
PROVIDERS: ATTEND Nurse Practitioner
DX: G47.33 Obstructive sleep apnea (adult) (pediatric) (principal); G47.36 Sleep related hypoventilation in conditions classified elsewhere; J34.2 Deviated nasal septum
CPT/HCPCS: 95811

== ENCOUNTER 2020-02-12 15:02 | Inpatient (IN) | payer MEDICARE, OTHER ==
[~2020-02-12] VITALS: Ht 167 cm; Wt 106.5 kg
[~2020-02-12 15:02] MED LIST changes: +ASPI-1238 PO; -ASPI-983 PO
[2020-02-12] MEDS ORDERED: LACTATED RINGERS 1,000 ML IV STA (15:29)
--- NOTE | 2020-02-12 15:29 | ED General ---
General Stated Complaint: TROUBLE BREATHING Source of Information: Patient Exam Limitations: No Limitations History of Present Illness Date Seen by Provider: Feb 12, 2020 Time Seen by Provider: 15:19 Initial Comments Here with report of increasing cough and trouble breathing. She was found to have COVID-19 her testing done at [facility] with results noted today. She reports symptom onset on Friday and worsened throughout the week. Reports decreased appetite, loss of taste, sore throat, runny nose, cough and diarrhea. Loss of taste occurred today. She does have history of underlying COPD and states that her breathing is getting worse. Arrives with O2 sat in the low 90s especially associated with coughing. Does improve with rest. Timing/Duration: 5-6 Days, Getting Worse Severity: Moderate Associated Systoms: Cough, Fever/Chills, Headaches, Malaise; No Nausea/Vomiting; Shortness of Air, Weakness Allergies and Home Medications Allergies Coded Allergies: No Known Drug Allergies (Unverified , 01/28/18) Home Medications Albuterol Sulfate 1 Puff Puff, 2 PUFF IH Q4H PRN for WHEEZING 1 PUFF = 90 MCG Prescribed by: KANDI ARCHER on 10/17/17 1216 Aripiprazole 30 Mg Tablet, 30 MG PO DAILY, (Reported) Aspirin 81 Mg Tablet.dr, 81 MG PO DAILY, (Reported) Benzonatate 100 Mg Capsule, 1-2 TAB PO TID Prescribed by: MADISON PRIETO on 07/12/182132 Budesonide 1 Mg/2 Ml Ampul.neb, 1 MG IH BID Prescribed by: MADISON PRIETO on 07/12/182132 Calcium Carbonate/Vitamin D3 1 Each Tablet, 1 TAB PO HS, (Reported) Cholecalciferol (Vitamin D3) 2,000 Unit Capsule, 2,000 UNIT PO HS, (Reported) Doxycycline Monohydrate 100 Mg Capsule, 100 MG PO BID Prescribed by: MADISON PRIETO on 07/12/182132 Duloxetine HCl 60 Mg Capsule.dr, 60 MG PO HS, (Reported) Estrogens, Conjugated 0.9 Mg Tablet, 0.9 MG PO DAILY, (Reported) Hydrochlorothiazide 12.5 Mg Tablet, 12.5 MG PO DAILY, (Reported) Hydrocodone Bit/Acetaminophen 1 Tab Tab, 1 TAB PO Q4-6HR Prescribed by: ELIZABETH CASTILLO on 02/12/18 0852 Linaclotide 145 Mcg Capsule, 145 MCG PO DAILY, (Reported) Loxapine Succinate 10 Mg Capsule, 10 MG PO BID, (Reported) Methylprednisolone 4 Mg Tab.ds.pk, 4 MG PO UD Prescribed by: MADISON PRIETO on 07/12/18 213 Multivitamin 1 Each Tab.chew, 2 TAB.CHEW PO HS, (Reported) [place]-3/Dha/Epa/Fish Oil 1 Each Capsule, 2,000 MG PO HS, (Reported) Omeprazole 40 Mg Capsule.dr, 40 MG PO DAILY, (Reported) Trazodone HCl 50 Mg Tablet, 50 MG PO HS, (Reported) Trihexyphenidyl HCl 2 Mg Tablet, 2 MG PO TID, (Reported) Patient Home Medication List Home Medication List Reviewed: Yes Review of Systems Review of Systems Constitutional: see HPI, chills, fever, malaise EENTM: nose congestion, throat pain Respiratory: see HPI, wheezing Cardiovascular: No chest pain, No edema Gastrointestinal: diarrhea, loss of appetite, nausea Genitourinary: No dysuria; frequency Musculoskeletal: No joint pain; muscle pain Skin: no symptoms reported Psychiatric/Neurological: See HPI, Headache All Other Systems Reviewed Negative Unless Noted: Yes Past Zcrvimu-Dccggc-Gqzqzm Hx Past Med/Social Hx: Reviewed Nursing Past Med/Soc Hx Patient Social History Alcohol Use: Rarely Uses Alcohol Beverage of Choice: Wine Smoking Status: Never a Smoker 2nd Hand Smoke Exposure: Yes Recent Hopitalizations: No Immunizations Up To Date PED Vaccines UTD: No Date of Pneumonia Vaccine: Apr 03, 2015 Date of Influenza Vaccine: Apr 02, 2018 Seasonal Allergies Seasonal Allergies: Yes Past Medical History Surgeries: Yes (SHOULDER, DISCECTOMY) Breast, Gallbladder, Hysterectomy, Orthopedic Respiratory: Yes Pneumonia, Chronic Bronchitis, COPD Currently Using CPAP: No Currently Using BIPAP: No Cardiac: Yes (mitral valve prolapse ) High Cholesterol, Hypertension, Valvular Heart Disease Neurological: Yes Headaches /Migraines Reproductive Disorders: No Sexually Transmitted Disease: No HIV/AIDS: No Genitourinary: Yes Kidney Stones, Neurogenic Bladder Gastrointestinal: Yes Gastroesophageal Reflux, Chronic Constipation Musculoskeletal: Yes Arthritis, Chronic Back Pain Endocrine: No (OBESE) HEENT: No Loss of Vision: Bilateral Hearing Impairment: Denies Cancer: No Psychosocial: Yes Anxiety, PTSD, Bipolar, Schizophrenia Integumentary: No Blood Disorders: No Adverse Reaction/Blood Tranf: Yes (HAS HAD BLOOD WITH NO REACTION) Family Medical History Reviewed Nursing Family Hx Alzheimer's disease Arthritis Asthma Colon cancer Diabetes mellitus Myocardial infarction Psychosocial problem Respiratory disorder Visual disorder No Pertinent Family Hx Physical Exam-Suspected Sepsis Physical Exam Vital Signs Vital Signs - First Documented 02/12/20 15:46 Temp 37.1 Pulse 62 Resp 20 B/P (MAP) 115/50 (71) Pulse Ox 93 Capillary Refill : Height, Weight, BMI Height: 5'6.00" Weight: 230lbs. 0.0oz. 104.723746jz; 37.1 BMI Method:Stated General Appearance: No Apparent Distress, WD/WN HEENT: PERRL/EOMI, Pharyngeal Erythema Neck: Non Tender, Supple Respiratory: No Accessory Muscle Use, Crackles (basilar), Wheezing (scattered) Cardiovascular: No Murmur, Tachycardia Gastrointestinal: Non Tender, Soft Back: Normal Inspection, No CVA Tenderness, No Vertebral Tenderness Extremity: Normal Range of Motion, Non Tender Neurologic/Psychiatric: Alert, Oriented x3 Skin: normal color, warm/dry Focused Exam Lactate Level 02/12/20 15:32: Lactic Acid Level 1.08 Lactic Acid Level Laboratory Tests Test 02/12/20 15:32 Lactic Acid Level 1.08 MMOL/L (0.50-2.00) Progress/Results/Core Measures Suspected Sepsis SIRS Temperature: Pulse: Respiratory Rate: Laboratory Tests 02/12/20 15:32: White Blood Count 5.1 Blood Pressure / Mean: 02/12/20 15:32: Lactic Acid Level 1.08 Laboratory Tests 02/12/20 15:32: Creatinine 1.01, INR Comment 0.9, Platelet Count 141, Total Bilirubin 0.3 Results/Orders Lab Results Laboratory Tests Test 02/12/20 15:32 02/12/20 16:03 Range/Units White Blood Count 5.1 4.3-11.0 10^3/uL Red Blood Count 4.36 4.35-5.85 10^6/uL Hemoglobin 13.6 11.5-16.0 G/DL Hematocrit 41 35-52 % Mean Corpuscular Volume 93 80-99 FL Mean Corpuscular Hemoglobin 31 25-34 PG Mean Corpuscular Hemoglobin Concent 34 32-36 G/DL Red Cell Distribution Width 12.7 10.0-14.5 % Platelet Count 141 130-400 10^3/uL Mean Platelet Volume 10.9 H 7.4-10.4 FL Neutrophils (%) (Auto) 62 42-75 % Lymphocytes (%) (Auto) 29 12-44 % Monocytes (%) (Auto) 9 0-12 % Eosinophils (%) (Auto) 0 0-10 % Basophils (%) (Auto) 0 0-10 % Neutrophils # (Auto) 3.1 1.8-7.8 X 10^3 Lymphocytes # (Auto) 1.4 1.0-4.0 X 10^3 Monocytes # (Auto) 0.4 0.0-1.0 X 10^3 Eosinophils # (Auto) 0.0 0.0-0.3 10^3/uL Basophils # (Auto) 0.0 0.0-0.1 10^3/uL Erythrocyte Sedimentation Rate 29 0-30 MM/HR Prothrombin Time 12.2 12.2-14.7 SEC INR Comment 0.9 0.8-1.4 Activated Partial Thromboplast Time 30 24-35 SEC D-Dimer 0.66 H 0.00-0.49 UG/ML Sodium Level 138 135-145 MMOL/L Potassium Level 3.2 L 3.6-5.0 MMOL/L Chloride Level 97 L 98-107 MMOL/L Carbon Dioxide Level 29 21-32 MMOL/L Anion Gap 12 5-14 MMOL/L Blood Urea Nitrogen 14 7-18 MG/DL Creatinine 1.01 0.60-1.30 MG/DL Estimat Glomerular Filtration Rate 56 BUN/Creatinine Ratio 14 Glucose Level 89 70-105 MG/DL Lactic Acid Level 1.08 0.50-2.00 MMOL/L Calcium Level 9.6 8.5-10.1 MG/DL Corrected Calcium 9.8 8.5-10.1 MG/DL Total Bilirubin 0.3 0.1-1.0 MG/DL Aspartate Amino Transf (AST/SGOT) 30 5-34 U/L Alanine Aminotransferase (ALT/SGPT) 32 0-55 U/L Alkaline Phosphatase 98 40-136 U/L Lactate Dehydrogenase 228 H 125-220 U/L C-Reactive Protein High Sensitivity 2.29 H 0.00-0.50 MG/DL Total Protein 6.8 6.4-8.2 GM/DL Albumin 3.7 3.2-4.5 GM/DL Procalcitonin 0.04 <0.10 NG/ML Urine Color YELLOW Urine Clarity CLEAR Urine pH 7.0 5-9 Urine Specific [place] 1.015 L 1.016-1.022 Urine Protein TRACE H NEGATIVE Urine Glucose (UA) NEGATIVE NEGATIVE Urine Ketones TRACE H NEGATIVE Urine Nitrite NEGATIVE NEGATIVE Urine Bilirubin NEGATIVE NEGATIVE Urine Urobilinogen 0.2 < = 1.0 MG/DL Urine Leukocyte Esterase NEGATIVE NEGATIVE Urine RBC (Auto) NEGATIVE NEGATIVE Urine RBC NONE /HPF Urine WBC 0-2 /HPF Urine Squamous Epithelial Cells 10-25 H /HPF Urine Crystals NONE /LPF Urine Bacteria FEW H /HPF Urine Casts NONE /LPF Urine Mucus NEGATIVE /LPF Urine Culture Indicated NO My Orders Orders - ORIANA GILMAN MD Dexamethasone Tablet (Decadron Tablet) (02/12/20 15:30) Albuterol Inhaler (Ventolin Hfa) (02/12/20 18:00) Lactated Ringers (Lr 1000 Ml Iv Solution (02/12/20 15:29) Cbc With Automated Diff (02/12/20 15:29) Comprehensive Metabolic Panel (02/12/20 15:29) Blood Culture (02/12/20 15:29) Sputum Culture (02/12/20 15:29) Urinalysis (02/12/20 15:29) Urine Culture (02/12/20 15:29) Protime With Inr (02/12/20 15:29) Partial Thromboplastin Time (02/12/20 15:29) Chest 1 View, Ap/Pa Only (02/12/20 15:29) Ed Iv/Invasive Line Start (02/12/20 15:29) Ed Iv/Invasive Line Start (02/12/20 15:29) Vital Signs Adult Sepsis Patie Q15M (02/12/20 15:29) O2 (02/12/20 15:29) Remove Rings In Anticipation O (02/12/20 15:29) Lactic Acid Analyzer (02/12/20 15:29) Fibrin Degradation Products (02/12/20 16:16) Procalcitonin (Pct) (02/12/20 16:16) Hs C Reactive Protein (02/12/20 16:16) Erythrocyte Sedimentation Rate (02/12/20 16:16) LDH (02/12/20 16:16) Vital Signs: Special (Order) (02/12/20 17:31) Consent-Obtain Consent For (02/12/20 17:31) Monitor S/S Transfusion Reacti (02/12/20 17:31) Ns Iv 500 Ml (Sodium Chloride 0.9%) (02/12/20 17:31) Type And Screen (02/12/20 17:31) Convalescent Plasma (02/12/20 17:31) Promethazine/ Codeine Syrup (Phenergan W (02/12/20 17:45) Abo Rh Type (02/12/20 17:31) Vital Signs/I&O 02/12/20 15:46 Temp 37.1 Pulse 62 Resp 20 B/P (MAP) 115/50 (71) Pulse Ox 93 Capillary Refill : Progress Note : Progress Note Seen and evaluated. Sepsis protocol initiated. Decadron 6 mg by mouth, albuterol MDI 4 puffs and LR 1 L bolus ordered. Monitor patient. 1730: Patient did require oxygen as she had arches and saturations go into the mid 80s when standing up and moving at all. Much better with oxygen on. She is better after the albuterol therapy. Given her requirements for oxygen and the COPD exacerbation that seems to be also occurring in conjunction with the COVID-19 infection, patient will require admission. I discussed the case with Dr. Bustillo, on-call for COVID admissions and she accepts patient inpatient status. We will do COVID convalescent plasma infusion. This was ordered to be done on the floor. We will continue Decadron. Phenergan with codeine cough syrup was given for persistent cough. All findings and concerns were discussed with the patient. She verbally consented to transfusion after discussion of risks and benefits. Patient agrees with plan. Diagnostic Imaging Diagonstic Imaging: Xray Plain Films/CT/US/NM/MRI: chest Comments NAME: JOSR STEIN [facility] REC#: [id number] PT STATUS: REG ER : 1960 PHYSICIAN: ORIANA GILMAN MD ADMIT DATE: 02/12/20/ER Draft Date of Exam:02/12/20 CHEST 1 VIEW, AP/PA ONLY INDICATION: Covid positive with increasing shortness of air. TIME OF EXAM: 4:04 p.m. COMPARISON: Correlation is made with prior chest from 07/12/2018. FINDINGS: The heart size is normal. The pulmonary vascularity is unremarkable. The lungs are clear. No infiltrate, effusion or pneumothorax is detected. IMPRESSION: No acute cardiopulmonary process is detected. Dictated on workstation # [id number] Dict: 02/12/20 1613 Trans: 02/12/[address] [facility] [id number] Interpreted by: TULIO FARAH MD Electronically signed by: Departure Communication (Admissions) Time/Spoke to Admitting Phy: 17:30 Impression Primary Impression: 2019 novel coronavirus disease (COVID-19) Additional Impression: COPD with acute exacerbation Disposition: ADMITTED INPATIENT Condition: Stable Admissions Decision to Admit Reason: Admit from ER (General) Decision to Admit/Date: Feb 12, 2020 Time/Decision to Admit Time: 17:30 Departure-Patient Inst. Referrals: [facility] (PCP) Primary Care Physician ALEXANDRA RAMIREZ (Family) Primary Care Physician ORIANA GILMAN MD Feb 12, 2020 15:29
[2020-02-12] MEDS ORDERED: dexAMETHasone 6 MG TAB (DECADRON) PO SCH (15:30)
[2020-02-12] MEDS: RT-ALBUTEROL INHALER HFA (VENTOLIN HFA) 18 GM IH SCH ×2 (15:41→21:59)
[2020-02-12 15:43] LABS: BASOPHILS % (AUTO) 0 % (0-10); EOSINOPHILS % (AUTO) 0 % (0-10); HEMATOCRIT 41 % (35-52); HEMOGLOBIN 13.6 G/DL (11.5-16.0); LYMPHOCYTES # (AUTO) 1.4 X 10^3 (1.0-4.0); LYMPHOCYTES % (AUTO) 29 % (12-44); MEAN CORPUSCULAR HEMOGLOBIN 31 PG (25-34); MEAN CORPUSCULAR HGB CONC 34 G/DL (32-36); MEAN CORPUSCULAR VOLUME 93 FL (80-99); MEAN PLATELET VOLUME 10.9 FL (7.4-10.4); MONOCYTES # (AUTO) 0.4 X 10^3 (0.0-1.0); MONOCYTES % (AUTO) 9 % (0-12); NEUTROPHILS # (AUTO) 3.1 X 10^3 (1.8-7.8); NEUTROPHILS % (AUTO) 62 % (42-75); PLATELET COUNT 141 10^3/uL (130-400); WHITE BLOOD COUNT 5.1 10^3/uL (4.3-11.0)
[2020-02-12 15:53] LABS: INR 0.9 (0.8-1.4); PROTHROMBIN TIME PATIENT 12.2 SEC (12.2-14.7)
--- NOTE | 2020-02-12 16:00 | NUR ---
PT PLACED ON 2 L VIA NC OF O2 AT THIS TIME DUE TO HYPOXIA OF 88% ON RA WHEN WALKING FROM BATHROOM
[2020-02-12 16:04] LABS: ALBUMIN 3.7 GM/DL (3.2-4.5); POTASSIUM 3.2 MMOL/L (3.6-5.0)
[2020-02-12 16:05] LABS: CALCIUM 9.6 MG/DL (8.5-10.1)
[2020-02-12 16:06] LABS: TOTAL PROTEIN 6.8 GM/DL (6.4-8.2)
[2020-02-12 16:08] LABS: BILIRUBIN,TOTAL 0.3 MG/DL (0.1-1.0)
[2020-02-12 16:10] LABS: CREATININE SERUM 1.01 MG/DL (0.60-1.30)
[2020-02-12 16:13] LABS: BILIRUBIN,URINE NEGATIVE (NEGATIVE); CLARITY,URINE CLEAR; COLOR,URINE YELLOW; GLUCOSE, URINE (UA) NEGATIVE (NEGATIVE); KETONES,URINE TRACE (NEGATIVE); LEUKOCYTE ESTERASE ,URINE NEGATIVE (NEGATIVE); NITRITE,URINE NEGATIVE (NEGATIVE); PROTEIN,URINE TRACE (NEGATIVE)
--- NOTE | 2020-02-12 16:17 | Diagnostic Imaging Report ---
INDICATION: Covid positive with increasing shortness of air. TIME OF EXAM: 4:04 p.m. COMPARISON: Correlation is made with prior chest from 07/12/2018. FINDINGS: The heart size is normal. The pulmonary vascularity is unremarkable. The lungs are clear. No infiltrate, effusion or pneumothorax is detected. IMPRESSION: No acute cardiopulmonary process is detected. Dictated by: Dictated on workstation # [id number]
--- NOTE | 2020-02-12 16:20 | NUR ---
PT NOTIFIED OF PT PROGRESS AND PLAN OF CARE AT THIS TIME.
[2020-02-12 16:30] LABS: BACTERIA,URINE FEW /HPF; WBC,URINE 0-2 /HPF
[2020-02-12] MEDS ORDERED: NS IV 500 ML 500 ML IV SCH (17:31)
[2020-02-12] MEDS ORDERED: PROMETHAZINE/ CODEINE SYRUP 5 ML UDC PO ONE (17:45)
--- NOTE | 2020-02-12 17:50 | NUR ---
DR. ESTRADA AT PT BEDSIDE TALKING TO PT AT THIS TIME.
--- NOTE | 2020-02-12 18:12 | NUR ---
PT CONTACTED AND UPDATED WITH PT ADMISSION STATUS.
--- NOTE | 2020-02-12 19:56 | History & Physical-Hospitalist ---
History of Present Illness HPI/Chief Complaint CC: COVID-19 with hypoxia HPI: This is a 59yoWF clinic patient of [facility] Teddy Rodriguez who has a h/o COPD from second-hand smoke exposure since she is a lifetime non-smoker who presents to the ER with dyspnea after COVID swab resulted as positive today from [facility]. Patient reports wheezing but no fever. Talked to her about convalescent plasma and she is agreeable for that and is agreeable to Remdesivir if that is required eventhough it is experimental. I have changed her room location from 4th floor to ICU stepdown in case her breathing worsens since she is already wheezing more than she did earlier she reports. Lovenox has been ordered BID. Source: patient, RN/MD Exam Limitations: clinical condition Date Seen 02/12/20 Time Seen by a Provider: 18:00 Attending Physician Mercedez Bustillo DO [facility] Referring Physician Date of Admission Feb 12, 2020 at 17:28 Home Medications & Allergies Home Medications Reviewed patient Home Medication Reconciliation performed by pharmacy medication reconciliations construction services technician and/or nursing. Patients Allergies have been reviewed. 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[place]) Alcohol Use: Rarely Uses Alcohol Beverage of Choice: Wine Recreational Drug Use: No Smoking Status: Never a Smoker 2nd Hand Smoke Exposure: Yes Recent Foreign Travel: No Contact w/other who traveled: No Recent Hopitalizations: No Recent Infectious Disease Expo: No Immunizations Up To Date Pediatric: No Date of Pneumonia Vaccine: Apr 03, 2015 Date of Influenza Vaccine: Apr 02, 2018 Seasonal Allergies Seasonal Allergies: Yes Past Medical History Surgeries: Breast, Gallbladder, Hysterectomy, Orthopedic, Tubal Ligation Currently Using CPAP: Yes Currently Using BIPAP: No Cardiac: High Cholesterol, Hypertension, Valvular Heart Disease Neurological: Headaches /Migraines Reproductive: No Sexually Transmitted Disease: No HIV/AIDS: No Genitourinary: Kidney Stones, Neurogenic Bladder Gastrointestinal: Gastroesophageal Reflux, Chronic Constipation Musculoskeletal: Arthritis, Chronic Back Pain Loss of Vision: Bilateral Hearing Impairment: Denies Psychosocial: Anxiety, PTSD, Bipolar, Schizophrenia History of Blood Disorders: No Adverse Reaction to Blood Chavez: Yes (HAS HAD BLOOD WITH NO REACTION) Family History Reviewed Nursing Family Hx Alzheimer's disease Arthritis Asthma Colon cancer Diabetes mellitus Myocardial infarction Psychosocial problem Respiratory disorder Visual disorder No Pertinent Family Hx Review of Systems Constitutional: see HPI, dizziness, malaise, weakness Respiratory: cough, dyspnea on exertion Physical Exam Physical Exam Vital Signs Vital Signs - First Documented 02/12/20 02/12/20 15:46 19:17 Temp 37.1 Pulse 62 Resp 20 B/P (MAP) 115/50 (71) Pulse Ox 93 O2 Delivery Nasal Cannula O2 Flow Rate 2.00 Capillary Refill : Less Than 3 Seconds Height, Weight, BMI Height: 5'6.00" Weight: 230lbs. 0.0oz. [id number]; 37.00 BMI Method:Stated General Appearance: Anxious, Chronically ill, Mild Distress Eyes: Right Eye Normal Inspection, Right Eye PERRL HEENT: PERRL/EOMI, Normal ENT Inspection, Pharynx Normal, Moist Mucous Membranes Neck: Full Range of Motion, Normal Inspection, Non Tender Respiratory: Chest Non Tender, No Accessory Muscle Use, No Respiratory Distress, Crackles, Decreased Breath Sounds, Wheezing Cardiovascular: Regular Rate, Rhythm, No Edema, No Gallop, No JVD, No Murmur, Normal Peripheral Pulses Gastrointestinal: Normal Bowel Sounds, No Organomegaly, No Pulsatile Mass, Non Tender, Soft Back: Normal Inspection, No CVA Tenderness, No Vertebral Tenderness Extremity: Normal Capillary Refill, Normal Inspection, Normal Range of Motion, Non Tender, No Calf Tenderness, No Pedal Edema Neurologic/Psychiatric: Alert, Oriented x3, No Motor/Sensory Deficits, Normal Mood/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 Assessment/Plan Admission Diagnosis Assessment: COVID-19 with hypoxia AECOPD HTN Valvular heart disease Mental illness Plan: ICU stepdown Decadron Plasma May need Remdesivir MAT protocol Admission Status: Inpatient Order (span 2 midnights) Reason for Inpatient Admission: COVID-19 hypoxia Diagnosis/Problems Diagnosis/Problems (1) 2019 novel coronavirus disease (COVID-19) Status: Acute (2) Chronic mental illness (3) Neurogenic bladder (4) COPD with acute exacerbation Status: Acute (5) Bronchitis Status: Acute (6) Wheezing Status: Acute MERCEDEZ BUSTILLO DO Feb 12, 2020 19:56
[2020-02-12] MEDS ORDERED: CALCIUM CARBONATE 500 MG (TUMS) TAB.CHEW PO PRN (20:00)
[2020-02-12] MEDS ORDERED: DOCUSATE SODIUM 100 MG (COLACE) CAP PO PRN (20:00)
[2020-02-12] MEDS ORDERED: HYDROcodone/APAP 5 MG/325 MG (LORTAB) TAB PO PRN (20:00)
[2020-02-12] MEDS ORDERED: ACETAMINOPHEN 500 MG TAB (TYLENOL) PO PRN (20:00)
[2020-02-12] MEDS ORDERED: ONDANSETRON 4 MG/2 ML (SDV) Z0FRAN IVP PRN (20:00)
[2020-02-12] MEDS ORDERED: ONDANSETRON 4 MG (ZOFRAN) ORAL DISSOLVE TAB PO PRN (20:00)
[2020-02-12] MEDS ORDERED: LOPERAMIDE 2 MG (IMODIUM) TABLET PO PRN (20:00)
[2020-02-12] MEDS ORDERED: morphine INJ 10 MG/ML 1ML (SYR OR VIAL) IVP PRN (20:00)
[2020-02-12] MEDS ORDERED: diphenhydrAMINE 25 MG TAB (BENADRYL) PO PRN (20:00)
[2020-02-12 20:10] VITALS: BP 126/90
[2020-02-12 20:15] VITALS: BP 143/102
[2020-02-12] MEDS ORDERED: PROMETHAZINE/ CODEINE SYRUP 5 ML UDC PO PRN (20:30)
[2020-02-12 20:45] VITALS: BP 145/95
[2020-02-12 21:00] VITALS: BP 148/96
[2020-02-12] MEDS: SENNA W/DOCUSATE (SENOKOT S) TABLET PO SCH (21:57)
[2020-02-12] MEDS: ENOXAPARIN 40 MG/0.4 ML (LOVENOX) SYR SC SCH (21:58)
[2020-02-12 22:00] VITALS: BP 167/109
[2020-02-12] MEDS ORDERED: KCL 20 MEQ TAB (K-DUR) PO ONE (22:00)
[2020-02-12] MEDS ORDERED: CLC600T PO (22:50)
[2020-02-12] MEDS ORDERED: FLUT1DIS26 IH (22:50)
[2020-02-12] MEDS ORDERED: GBPN600T PO (22:50)
[2020-02-12] MEDS ORDERED: MELO15TA39 PO (22:50)
[2020-02-12] MEDS ORDERED: MONT10TA21 PO (22:50)
[2020-02-12] MEDS ORDERED: PROP40TA5 PO (22:50)
[2020-02-12 23:00] VITALS: BP 148/94
[2020-02-13] VITALS (15 sets, daily range): BP systolic 142–164; BP diastolic 76–103
[2020-02-13] MEDS ORDERED: KCL 20 MEQ TAB (K-DUR) PO ONE
[2020-02-13] MEDS: RT-ALBUTEROL INHALER HFA (VENTOLIN HFA) 18 GM IH SCH ×6 (02:14→23:16)
[2020-02-13 04:06] LABS: BASOPHILS % (AUTO) 0 % (0-10); EOSINOPHILS % (AUTO) 0 % (0-10); HEMATOCRIT 38 % (35-52); HEMOGLOBIN 12.6 G/DL (11.5-16.0); LYMPHOCYTES # (AUTO) 0.8 X 10^3 (1.0-4.0); LYMPHOCYTES % (AUTO) 26 % (12-44); MEAN CORPUSCULAR HEMOGLOBIN 31 PG (25-34); MEAN CORPUSCULAR HGB CONC 33 G/DL (32-36); MEAN CORPUSCULAR VOLUME 92 FL (80-99); MEAN PLATELET VOLUME 11.4 FL (7.4-10.4); MONOCYTES # (AUTO) 0.1 X 10^3 (0.0-1.0); MONOCYTES % (AUTO) 3 % (0-12); NEUTROPHILS # (AUTO) 2.2 X 10^3 (1.8-7.8); NEUTROPHILS % (AUTO) 71 % (42-75); PLATELET COUNT 137 10^3/uL (130-400); WHITE BLOOD COUNT 3.1 10^3/uL (4.3-11.0)
[2020-02-13 04:10] LABS: ALBUMIN 3.6 GM/DL (3.2-4.5); CHLORIDE 100 MMOL/L (98-107); POTASSIUM 3.7 MMOL/L (3.6-5.0); SODIUM 139 MMOL/L (135-145)
[2020-02-13 04:11] LABS: CALCIUM 9.6 MG/DL (8.5-10.1)
[2020-02-13 04:13] LABS: GLUCOSE 138 MG/DL (70-105); TOTAL PROTEIN 6.5 GM/DL (6.4-8.2)
[2020-02-13 04:14] LABS: BILIRUBIN,TOTAL 0.2 MG/DL (0.1-1.0); CARBON DIOXIDE 27 MMOL/L (21-32)
[2020-02-13 04:16] LABS: ALKALINE PHOSPHATASE 91 U/L (40-136); CREATININE SERUM 0.89 MG/DL (0.60-1.30); GFR ESTIMATED > 60; PHOSPHORUS 1.8 MG/DL (2.3-4.7)
[2020-02-13 04:17] LABS: BUN/CREATININE RATIO 13
[2020-02-13 04:19] LABS: ALANINE AMINOTRANSFERASE 33 U/L (0-55); MAGNESIUM 1.4 MG/DL (1.6-2.4)
[2020-02-13] MEDS ORDERED: MAGNESIUM 1 GM/100 ML IVPB 100 ML IV SCH (06:00)
[2020-02-13] MEDS ORDERED: KCL 20 MEQ TAB (K-DUR) PO SCH (06:00)
[2020-02-13] MEDS ORDERED: POTASSIUM CL 10MEQ/50ML IVPB 50 ML IV SCH (06:00)
[2020-02-13] MEDS: MAGNESIUM 1 GM/100 ML IVPB 100 ML IV SCH ×2 (06:21→06:22)
--- NOTE | 2020-02-13 06:56 | Progress Note - Hospitalist ---
Subjective HPI/CC On Admission Date Seen by Provider: Feb 13, 2020 Time Seen by Provider: 11:15 CC: COVID-19 with hypoxia HPI: This is a 59yoWF clinic patient of [facility] Teddy Rodriguez who has a h/o COPD from second-hand smoke exposure since she is a lifetime non-smoker who presents to the ER with dyspnea after COVID swab resulted as positive today from [facility]. Patient reports wheezing but no fever. Talked to her about convalescent plasma and she is agreeable for that and is agreeable to Remdesivir if that is required eventhough it is experimental. I have changed her room location from 4th floor to ICU stepdown in case her breathing worsens since she is already wheezing more than she did earlier she reports. Lovenox has been ordered BID. Subjective/Events-last exam Patient doing well No pain reported Less dyspnea Transferring to 4th floor Plasma ordered Remdesivir not required since no longer hypoxic Decadron ordered Home meds to restart Review of Systems General: Fatigue, Malaise Pulmonary: Dyspnea, Cough Focused Exam Lactate Level 02/12/20 15:32: Lactic Acid Level 1.08 Objective Exam Vital Signs Vital Signs Date Time Temp Pulse Resp B/P (MAP) Pulse Ox O2 Delivery O2 Flow Rate FiO2 02/13/20 16:18 36.8 81 18 143/81 (101) 93 Room Air 02/13/20 12:00 2.00 02/12/20 20:16 21 Capillary Refill : Less Than 3 Seconds General Appearance: No Apparent Distress, WD/WN, Chronically ill, Obese Respiratory: Chest Non Tender, Lungs Clear, No Accessory Muscle Use, No Respiratory Distress, Decreased Breath Sounds Cardiovascular: Regular Rate, Rhythm, No Edema, No Gallop, No JVD, No Murmur, Normal Peripheral Pulses Neurologic/Psychiatric: Alert, Oriented x3, No Motor/Sensory Deficits, Normal Mood/Affect Results/Procedures Lab Laboratory Tests 02/13/20 03:37 Patient resulted labs reviewed. Assessment/Plan Assessment and Plan Assess & Plan/Chief Complaint Assessment: COVID-19 Hypoxia AECOPD MISSY on CPAP Mental illness Plan: O2 MAT protocol [place] Plasma Diagnosis/Problems Diagnosis/Problems (1) 2019 novel coronavirus disease (COVID-19) Status: Acute (2) Chronic mental illness (3) Neurogenic bladder (4) COPD with acute exacerbation Status: Acute (5) Bronchitis Status: Acute (6) Wheezing Status: Acute Clinical Quality Measures DVT/VTE Risk/Contraindication: Risk Factor Score Per Nursin RFS Level Per Nursing on Admit: 4+=Very High JENNY ESTRADA DO Feb 13, 2020 06:56
[2020-02-13] MEDS ORDERED: FLU QUADRIvalent (3YOA+) 60 mcg/0.5 ml 2020-21 (AFLURIA) IM ONE (07:15)
[2020-02-13] MEDS: dexAMETHasone 6 MG TAB (DECADRON) PO SCH (07:50)
[2020-02-13] MEDS: ENOXAPARIN 40 MG/0.4 ML (LOVENOX) SYR SC SCH ×2 (07:50→20:59)
[2020-02-13] MEDS: SENNA W/DOCUSATE (SENOKOT S) TABLET PO SCH ×2 (09:37→21:01)
[2020-02-13] MEDS ORDERED: NS IV 500 ML 500 ML IV SCH (11:00)
[2020-02-13] MEDS: MAGIC MOUTHWASH (ADULT) PO SCH ×12 (11:34→21:00)
[2020-02-13] MEDS ORDERED: MAGIC MOUTHWASH, ADULT 155 ML BOTTLE PO SCH (13:00)
--- NOTE | 2020-02-13 13:10 | NUR ---
THIS RN TAKING OVER CARE OF PT. PT BROUGHT DOWN TO 4TH FLOOR ROOM 430 BY BUZZ SCHMID RN AND ICU PCT, ALONG WITH PTS ISO CART. PT ORIENTED TO ROOM AND FINISHING UP HER CONVALESCENT PLASMA. PT HAS NO COMPLAINTS OR CONCERNS AT THIS TIME EXCEPT THAT SHE WAS NOT ABLE TO EAT LUNCH DUE TO CONTINUED PAIN IN MOUTH FROM SORE. PT IS BEING ADMIN MAGIC MOUTHWASH AND IT IS IN HER ROOM WITH HER LOCKED IN DRAWER.
[2020-02-13] MEDS: TRIHEXYPHENIDYL 2 MG (ARTANE) TAB PO SCH ×2 (13:17→20:59)
--- NOTE | 2020-02-13 13:50 | NUR ---
CONVALESCENT PLASMA ADMIN ENDED AT 1350. PT TOLERATED TRANSFUSION WELL, NO INTERACTION. V/S DOCUMENTED IN TRANSFUSION TAB. PT IS RESTING WITH EYES CLOSED IN CHAIR.
--- NOTE | 2020-02-13 13:55 | NUR ---
1310 PT TO ROOM 430 VIA W/C ALL PERSONAL ITEMS SENT DOWN WITH PT, ALL PERSONAL ITEMS SENT DOWN WITH PT.
[2020-02-13] MEDS: ALPRAZolam 0.25 MG (XANAX) TAB PO PRN (20:59)
[2020-02-13] MEDS: MELATONIN 3 MG TABLET PO PRN (20:59)
[2020-02-13] MEDS: DULoxetine 30 MG (CYMBALTA) CAP PO SCH (20:59)
[2020-02-13] MEDS ORDERED: traZODone 50 MG (DESYREL) TAB PO SCH (21:00)
[2020-02-13] MEDS ORDERED: MULTIVITAMIN PO SCH (21:00)
[2020-02-14] VITALS (7 sets, daily range): BP systolic 141–174; BP diastolic 70–92
[2020-02-14] MEDS: RT-ALBUTEROL INHALER HFA (VENTOLIN HFA) 18 GM IH SCH ×6 (02:32→22:43)
[2020-02-14 07:11] LABS: BASOPHILS % (AUTO) 0 % (0-10); EOSINOPHILS % (AUTO) 0 % (0-10); HEMATOCRIT 38 % (35-52); HEMOGLOBIN 12.6 G/DL (11.5-16.0); LYMPHOCYTES # (AUTO) 1.4 X 10^3 (1.0-4.0); LYMPHOCYTES % (AUTO) 19 % (12-44); MEAN CORPUSCULAR HEMOGLOBIN 31 PG (25-34); MEAN CORPUSCULAR HGB CONC 33 G/DL (32-36); MEAN CORPUSCULAR VOLUME 93 FL (80-99); MONOCYTES # (AUTO) 0.6 X 10^3 (0.0-1.0); MONOCYTES % (AUTO) 8 % (0-12); NEUTROPHILS # (AUTO) 5.1 X 10^3 (1.8-7.8); NEUTROPHILS % (AUTO) 73 % (42-75); PLATELET COUNT 152 10^3/uL (130-400)
[2020-02-14 07:33] LABS: ALANINE AMINOTRANSFERASE 33 U/L (0-55); ALBUMIN 3.6 GM/DL (3.2-4.5); ALKALINE PHOSPHATASE 82 U/L (40-136); BILIRUBIN,TOTAL 0.3 MG/DL (0.1-1.0); BUN/CREATININE RATIO 19; CALCIUM 9.8 MG/DL (8.5-10.1); CARBON DIOXIDE 27 MMOL/L (21-32); CHLORIDE 102 MMOL/L (98-107); CREATININE SERUM 0.79 MG/DL (0.60-1.30); GFR ESTIMATED > 60; GLUCOSE 96 MG/DL (70-105); POTASSIUM 3.3 MMOL/L (3.6-5.0); SODIUM 139 MMOL/L (135-145); TOTAL PROTEIN 6.5 GM/DL (6.4-8.2)
[2020-02-14] MEDS ORDERED: HYDROCHLOROTHIAZIDE 12.5 MG (HCTZ) CAP PO SCH (09:00)
[2020-02-14] MEDS: SENNA W/DOCUSATE (SENOKOT S) TABLET PO SCH ×2 (09:55→21:13)
[2020-02-14] MEDS: ENOXAPARIN 40 MG/0.4 ML (LOVENOX) SYR SC SCH ×2 (09:55→21:13)
[2020-02-14] MEDS: TRIHEXYPHENIDYL 2 MG (ARTANE) TAB PO SCH ×3 (09:55→21:13)
[2020-02-14] MEDS: ASPIRIN E.C. 81 MG (ECOTRIN) TAB PO SCH (09:55)
[2020-02-14] MEDS: dexAMETHasone 6 MG TAB (DECADRON) PO SCH (09:55)
[2020-02-14] MEDS: PANTOPRAZOLE 40 MG (PROTONIX) TAB PO SCH (09:56)
[2020-02-14] MEDS: MAGIC MOUTHWASH (ADULT) PO SCH ×16 (10:01→21:13)
--- NOTE | 2020-02-14 12:19 | Progress Note - Hospitalist ---
Subjective HPI/CC On Admission Date Seen by Provider: Feb 14, 2020 Time Seen by Provider: 10:20 CC: COVID-19 with hypoxia HPI: This is a 59yoWF clinic patient of [facility] Teddy Rodriguez who has a h/o COPD from second-hand smoke exposure since she is a lifetime non-smoker who presents to the ER with dyspnea after COVID swab resulted as positive today from [facility]. Patient reports wheezing but no fever. Talked to her about convalescent plasma and she is agreeable for that and is agreeable to Remdesivir if that is required eventhough it is experimental. I have changed her room location from 4th floor to ICU stepdown in case her breathing worsens since she is already wheezing more than she did earlier she reports. Lovenox has been ordered BID. Subjective/Events-last exam she is feeling better today. She denies shortness of breath. She says her cough is improved. She denies any fevers or chills. She has been drinking fluids but says she has not been able to eat much. She denies any abdominal pain, nausea, or vomiting. She has no other complaints or concerns. Focused Exam Lactate Level 02/12/20 15:32: Lactic Acid Level 1.08 Objective Exam Vital Signs Vital Signs Date Time Temp Pulse Resp B/P (MAP) Pulse Ox O2 Delivery O2 Flow Rate FiO2 02/14/20 10:25 95 Room Air 02/14/20 08:00 36.8 91 18 159/79 (105) 02/13/20 12:00 2.00 02/12/20 20:16 21 Capillary Refill : Less Than 3 Seconds General Appearance: No Apparent Distress, Obese HEENT: PERRL/EOMI, Pharynx Normal Neck: Normal Inspection, Supple Respiratory: Lungs Clear, Normal Breath Sounds, No Respiratory Distress Cardiovascular: Regular Rate, Rhythm, No Edema, No Murmur Gastrointestinal: Normal Bowel Sounds, Non Tender, Soft Extremity: Normal Inspection, Non Tender, No Pedal Edema Neurologic/Psychiatric: Alert, Oriented x3, No Motor/Sensory Deficits, Normal Mood/Affect Skin: Normal Color, Warm/Dry Results/Procedures Lab Laboratory Tests 02/14/20 06:58 Patient resulted labs reviewed. Assessment/Plan Assessment and Plan Assess & Plan/Chief Complaint COVID-19 COPD with acute exacerbation MISSY on CPAP Obesity continue supplemental oxygen as needed, currently on room air MAT protocol continue Decadron s/p convalescent plasma DVT prophylaxis: Lovenox Acute respiratory failure with hypoxia, resolved Diagnosis/Problems Diagnosis/Problems (1) 2019 novel coronavirus disease (COVID-19) Status: Acute (2) COPD with acute exacerbation Status: Acute (3) Obesity Status: Chronic Qualifiers: Obesity type: due to excess calories (4) MISSY on CPAP Status: Chronic Clinical Quality Measures DVT/VTE Risk/Contraindication: Risk Factor Score Per Nursin RFS Level Per Nursing on Admit: 4+=Very High KOLTON GONZALEZ MD Feb 14, 2020 12:19
[2020-02-14] MEDS ORDERED: TRAZ-227 PO (15:56)
[2020-02-14] MEDS ORDERED: MULT-1136 PO (15:56)
[2020-02-14] MEDS ORDERED: CHOL10007 PO (15:56)
[2020-02-14] MEDS ORDERED: HYDR25TA4 PO (15:56)
[2020-02-14] MEDS ORDERED: MONT10TA26 PO (15:56)
[2020-02-14] MEDS ORDERED: DICL75TA2 PO (15:56)
[2020-02-14] MEDS ORDERED: ESTR0.3T PO (15:56)
[2020-02-14] MEDS ORDERED: PHEN37.53 PO (15:56)
[2020-02-14] MEDS ORDERED: GABA300C PO (15:56)
--- NOTE | 2020-02-14 16:00 | NUR ---
SPOKE WITH THE PT (I CALLED HER ROOM PHONE) AND ALSO CALLED HER KANDI, THEN WENT THRU THE EXT MED HISTOR TO COMPLETE THE MED REC PT HAS A MED LIST SHE TEXT ME- HOWEVER THE STRENGTHS AND DIRECTIONS ARE NOT ACCURATE. ABILIFY 30MG SHOWS ON THE EXT MED HISTORY ON 02-04-2020 #90 HOWEVER PT IS NO LONGER TAKING DICLOFENAC 75MG LAST FILLED 09-07-2019 #180/90DS- KANDI INDICATES PT STILL TAKING THIS AND DOESNT KNOW WHY IT IS PAST DUE- I DID INCLUDE THE PAST DUE FILL DATE ON THE MED REC PHENTERMINE 37.5MG LAST FILLED 02-09-20208 #28/28DS MELOXICAM 15MG LAST FILLED 02-09-2020 #30/30DS OTC MEDS: VIT D CALCIUM MTV ASPIRIN 81MG
[2020-02-14] MEDS ORDERED: traZODone 50 MG (DESYREL) TAB PO SCH (21:00)
[2020-02-14] MEDS: MELATONIN 3 MG TABLET PO PRN (21:12)
[2020-02-14] MEDS: ALPRAZolam 0.25 MG (XANAX) TAB PO PRN (21:13)
[2020-02-14] MEDS: DULoxetine 30 MG (CYMBALTA) CAP PO SCH (21:13)
[2020-02-15 04:00] VITALS: BP 152/80
[2020-02-15] MEDS ORDERED: KCL 20 MEQ TAB (K-DUR) PO SCH (06:00)
[2020-02-15] MEDS ORDERED: POTASSIUM CL 10MEQ/50ML IVPB 50 ML IV SCH (06:00)
[2020-02-15] MEDS ORDERED: MAGNESIUM 1 GM/100 ML IVPB 100 ML IV SCH (06:00)
[2020-02-15 06:06] LABS: CHLORIDE 100 MMOL/L (98-107); POTASSIUM 3.2 MMOL/L (3.6-5.0); SODIUM 137 MMOL/L (135-145)
[2020-02-15 06:07] LABS: CALCIUM 9.7 MG/DL (8.5-10.1)
[2020-02-15 06:08] LABS: GLUCOSE 95 MG/DL (70-105)
[2020-02-15 06:09] LABS: CARBON DIOXIDE 26 MMOL/L (21-32)
[2020-02-15 06:12] LABS: CREATININE SERUM 0.78 MG/DL (0.60-1.30); GFR ESTIMATED > 60
[2020-02-15 06:13] LABS: BUN/CREATININE RATIO 21
[2020-02-15 06:14] LABS: MAGNESIUM 1.6 MG/DL (1.6-2.4)
[2020-02-15] MEDS ORDERED: MAGNESIUM 1 GM/100 ML IVPB 200 ML IV ONE (06:32)
[2020-02-15] MEDS ORDERED: KCL 20 MEQ TAB (K-DUR) PO ONE ×4 (06:33→11:00)
[2020-02-15] MEDS: MAGNESIUM 1 GM/100 ML IVPB 100 ML IV SCH ×2 (06:46→08:05)
[2020-02-15] MEDS: RT-ALBUTEROL INHALER HFA (VENTOLIN HFA) 18 GM IH SCH ×2 (07:19→10:57)
[2020-02-15 08:00] VITALS: BP 149/83
[2020-02-15] MEDS: MAGIC MOUTHWASH (ADULT) PO SCH ×4 (08:05)
[2020-02-15] MEDS ORDERED: HYDROCHLOROTHIAZIDE 12.5 MG (HCTZ) CAP PO SCH (09:00)
[2020-02-15] MEDS: ASPIRIN E.C. 81 MG (ECOTRIN) TAB PO SCH (09:32)
[2020-02-15] MEDS: dexAMETHasone 6 MG TAB (DECADRON) PO SCH (09:32)
[2020-02-15] MEDS: SENNA W/DOCUSATE (SENOKOT S) TABLET PO SCH (09:32)
[2020-02-15] MEDS: ENOXAPARIN 40 MG/0.4 ML (LOVENOX) SYR SC SCH (09:32)
[2020-02-15] MEDS: TRIHEXYPHENIDYL 2 MG (ARTANE) TAB PO SCH (09:32)
[2020-02-15] MEDS ORDERED: PRED10TA22 PO (11:03)
[2020-02-15] MEDS: PANTOPRAZOLE 40 MG (PROTONIX) TAB PO SCH (11:39)
--- NOTE | 2020-02-15 13:14 | Discharge Summary ---
Discharge Summary Hospital Course Was the Problem List Reviewed?: Yes Problems/Dx: (1) 2019 novel coronavirus disease (COVID-19) Status: Acute (2) COPD with acute exacerbation Status: Acute (3) Obesity Status: Chronic Qualifiers: (4) MISSY on CPAP Status: Chronic Hospital Course Date of Admission: Feb 12, 2020 at 17:28 Admission Diagnosis: acute respiratory failure due to COVID-19 Family Physician/Provider: Leonides Rodriguez Date of Discharge: 02/15/20 Discharge Diagnosis: acute respiratory failure due to COVID-19 Hospital Course: Tamra Narvaez is a 59-year-old female who was admitted with acute respiratory failure to the [place] [id number]. She was requiring supplemental oxygen initially but this was able to be titrated off. She was treated with Decadron and convalescent plasma. She was also treated for a COPD exacerbation. She will complete a steroid taper as an outpatient. She should follow-up with [facility] in a couple weeks. Labs and Pending Lab Test: Laboratory Tests 02/15/20 05:50: Sodium Level 137, Potassium Level 3.2L, Chloride Level 100, Carbon Dioxide Level 26, Anion Gap 11, Blood Urea Nitrogen 16, Creatinine 0.78, Estimat Glomerular Filtration Rate > 60, BUN/Creatinine Ratio 21, Glucose Level 95, Calcium Level 9.7, Magnesium Level 1.6 Microbiology 02/12/20 MRSA Screen - Final, Complete MRSA not isolated 02/12/20 Urine Culture - Final, Complete 3 or more isolates 02/12/20 Blood Culture - Preliminary, Resulted No growth Home Meds Active Prednisone 10 Mg Tab.ds.pk 10 Mg PO DAILY Take 6 tabs(60mg)daily,decrease by 1 tab(10mg)every other day. Reported Diclofenac Sodium 75 Mg Tablet.dr 75 Mg PO BID LAST FILLED 09-07-2019 #180/90DS Neurontin (Gabapentin) 300 Mg Capsule 300 Mg PO TID Montelukast Sodium 10 Mg Tablet 10 Mg PO DAILY Premarin (Estrogens, Conjugated) 0.3 Mg Tablet 0.3 Mg PO DAILY Hydrochlorothiazide 25 Mg Tablet 25 Mg PO DAILY Phentermine HCl 37.5 Mg Tablet 37.5 Mg PO DAILY Trazodone HCl 100 Mg Tablet 100 Mg PO HS Multivitamin 1 Each Tablet 1 Each PO DAILY Vitamin D3 (Cholecalciferol (Vitamin D3)) 25 Mcg Capsule 25 Mcg PO DAILY Meloxicam 15 Mg Tablet 15 Mg PO DAILY Advair 250-50 Diskus (Fluticasone/Salmeterol) 1 Each Blst.w.dev 1 Each IH BID Propranolol HCl 40 Mg Tablet 40 Mg PO BID Calcium (Calcium Carbonate) 600 Mg Tablet 600 Mg PO DAILY Trihexyphenidyl HCl 2 Mg Tablet 2 Mg PO BID Omeprazole 40 Mg Capsule.dr 40 Mg PO DAILY Duloxetine HCl 60 Mg Capsule.dr 60 Mg PO HS Premarin (Estrogens, Conjugated) 0.9 Mg Tablet 0.3 Mg PO DAILY Aspirin EC (Aspirin) 81 Mg Tablet.dr 81 Mg PO DAILY Assessment/Pt Instructions Take medications as prescribed. Complete your steroid taper. Follow up with your PCP. Discharge Planning: <30 minutes discharge planning Discharge Instructions Discharge Diet: No Restrictions Activity as Tolerated: Yes Discharge Physical Examination Vital Signs Vital Signs Date Time Temp Pulse Resp B/P (MAP) Pulse Ox O2 Delivery O2 Flow Rate FiO2 02/15/20 10:58 93 Room Air 02/15/20 08:00 37.0 86 20 149/83 (105) 02/14/20 09:00 2.00 02/12/20 20:16 21 Allergies: Coded Allergies: No Known Drug Allergies (Unverified , 01/28/18) Copy Copies To 1: [facility] [place] Discharge Summary Date of Admission Feb 12, 2020 at 17:28 Date of Discharge Discharge Date: Feb 15, 2020 Discharge Time: 13:13 Admission Diagnosis acute respiratory failure due to COVID-19 Discharge Diagnosis acute respiratory failure due to COVID-19 (1) 2018 novel coronavirus disease (COVID-19) Status: Acute (2) COPD with acute exacerbation Status: Acute (3) Obesity Status: Chronic Qualifiers: (4) MISSY on CPAP Status: Chronic Clinical Quality Measures DVT/VTE Risk/Contraindication: Risk Factor Score Per Nursin RFS Level Per Nursing on Admit: 4+=Very High KOLTON GONZALEZ MD Feb 15, 2020 13:13
== END 2020-02-15 12:50 | disposition home or self-care (01) | DRG 177 ==
LOC: EDUNIT# 15:02 → ER 15:03 → ICU 17:28 → UNDOADMIN 17:28 → 4TH 17:28 → ICU 02-13 11:49 → 4TH 02-13 13:05
PROVIDERS: ADMIT Internal Medicine; ATTEND Internal Medicine
PROC: XW13325 Transfusion of Convalescent Plasma (Nonautologous) into Peripheral Vein, Percutaneous Approach, New Technology Group 5 (ICD-10-PCS; principal; 2020-02-13)
DX: U07.1 COVID-19 (principal); J96.01 Acute respiratory failure with hypoxia; J44.0 Chronic obstructive pulmonary disease with (acute) lower respiratory infection; J44.1 Chronic obstructive pulmonary disease with (acute) exacerbation; J20.9 Acute bronchitis, unspecified; G47.33 Obstructive sleep apnea (adult) (pediatric); I10 Essential (primary) hypertension; E78.00 Pure hypercholesterolemia, unspecified; I34.1 Nonrheumatic mitral (valve) prolapse; N31.9 Neuromuscular dysfunction of bladder, unspecified; G43.909 Migraine, unspecified, not intractable, without status migrainosus; K21.9 Gastro-esophageal reflux disease without esophagitis; K59.09 Other constipation; M19.91 Primary osteoarthritis, unspecified site; M54.9 Dorsalgia, unspecified; E66.9 Obesity, unspecified; J30.2 Other seasonal allergic rhinitis; F41.9 Anxiety disorder, unspecified; F31.9 Bipolar disorder, unspecified; F43.10 Post-traumatic stress disorder, unspecified; F20.9 Schizophrenia, unspecified; Z77.22 Contact with and (suspected) exposure to environmental tobacco smoke (acute) (chronic); Z68.38 Body mass index [BMI] 38.0-38.9, adult; Z87.442 Personal history of urinary calculi
CPT/HCPCS: 36415; 71045; 80048; 80053; 81000; 83605; 83615; 83735; 84100; 84145; 85025; 85379; 85610; 85652; 85730; 86141; 86850; 86900; 86901; 87040; 87081; 87088; 94640; 94664; 94760

== ENCOUNTER → 2020-08-01 | Outpatient (CLI) | payer MEDICARE, OTHER ==
[~2020-08-01] MED LIST changes: +CATHETER FLUSH 10 ML SYR IV PRN; +CHOL10007 PO; +CLC600T PO; +DICL75TA2 PO; +ESTR0.3T PO; +FLUT1DIS26 IH; +GABA300C PO; +GBPN600T PO; +HOLD METFORMIN - RECEIVED CONTRAST 20 ML VIAL IV SCH; +HYDR25TA4 PO; +IOHEXOL 350 MG/ML 100 ML (OMNIPAQUE 350) VIAL IV ONE; +MELO15TA39 PO; +MONT10TA21 PO; +MONT10TA32 PO; +MULT-1136 PO; +NS 100 ML (IVPB) BAG IV ONE; +PHEN37.53 PO; +PRED10TA22 PO; +PROP40TA5 PO; +TRAZ-227 PO; +TRH2T PO; -TRIH2TAB2 PO
[2020-08-01 07:33] LABS: CREATININE SERUM 0.84 MG/DL (0.60-1.30); GFR ESTIMATED > 60
[2020-08-01 07:34] LABS: BUN/CREATININE RATIO 24
--- NOTE | 2020-08-01 08:48 | Diagnostic Imaging Report ---
EXAMINATION: CT angiography of the chest. TECHNIQUE: Contrast enhanced thin section helical images were obtained through the chest with intravenous contrast timed for the optimal opacification of the arterial structures per CTA protocol. Post-processing, reconstructions and interpretation of angiographic images of the vessels was performed. 3D MIP reconstructions were performed and reviewed. All CT scans use one or more of the following dose optimizing techniques: automated exposure control, MA and/or KvP adjustment based on a patient size and exam type, or iterative reconstruction. HISTORY: Shortness of breath. COMPARISON: 07/02/2016 FINDINGS: There is no pulmonary embolism. There is no edema or pneumonia. No pleural effusion. No pneumothorax. No suspicious nodules. There is no axillary or supraclavicular lymphadenopathy. There is no mediastinal lymphadenopathy. Heart size is normal. There are no coronary artery calcifications. No pericardial effusion. Aorta is normal in caliber. Limited views of the upper abdomen show changes of cholecystectomy. There are no suspicious osseus lesions. IMPRESSION: 1. No pulmonary embolism, clear lungs. Dictated by: Dictated on workstation # [id number]
--- NOTE | 2020-08-01 10:24 | Diagnostic Imaging Report ---
PROCEDURE: US Venous Lower Ext Manolo. TECHNIQUE: Multiple Real-time grayscale images were obtained over the lower extremities in various projections bilaterally. Additional duplex Doppler and color Doppler images were also obtained. INDICATION: Dyspnea. Bilateral lower extremity swelling. COMPARISON: None. FINDINGS: The bilateral common femoral vein, femoral vein, deep femoral vein, and popliteal vein are normal in appearance. These vessels show normal compressibility, color flow, and Doppler augmentation. The visualized deep calf veins demonstrate no distinct intraluminal thrombus. A Fulton's cyst is noted in the left popliteal fossa. IMPRESSION: 1. No sonographic evidence of deep venous thrombosis in the bilateral lower extremities. 2. Left-sided Fulton's cyst. Dictated by: Dictated on workstation # [id number]
== END ==
LOC: RAD 08:45
PROVIDERS: ATTEND Internal Medicine Critical Care Medicine
DX: R06.00 Dyspnea, unspecified (principal); M71.22 Synovial cyst of popliteal space [Baker], left knee
CPT/HCPCS: 36415; 71275; 82565; 84520; 93970

== ENCOUNTER → 2020-08-17 | Outpatient (CLI) | payer MEDICARE, OTHER ==
[~2020-08-17] MED LIST changes: -CATHETER FLUSH 10 ML SYR IV PRN; -HOLD METFORMIN - RECEIVED CONTRAST 20 ML VIAL IV SCH; -IOHEXOL 350 MG/ML 100 ML (OMNIPAQUE 350) VIAL IV ONE; -NS 100 ML (IVPB) BAG IV ONE; +RT-ALBUTEROL SULF 2.5 MG/3 ML PRE-MIX VIAL INH ONE
[2020-08-17 10:24] LABS: ABG BASE EXCESS 5.8 MMOL/L (-2.5-2.5); ABG OXYGEN SATURATION 96 % (94-100); ABG PCO2 48 MMHG (35-45); ABG PH 7.42 (7.37-7.43); ABG PO2 81 MMHG (79-93)
[2020-08-17 10:26] LABS: ALLENS TEST YES-POS; INSPIRED O2 RA; VENTILATOR NO
== END ==
LOC: RT 09:29
PROVIDERS: ATTEND Internal Medicine Critical Care Medicine
DX: Z13.83 Encounter for screening for respiratory disorder NEC (principal); R06.00 Dyspnea, unspecified
CPT/HCPCS: 36600; 82805; 94060; 94726; 94729

== ENCOUNTER → 2021-01-09 | Outpatient (CLI) | payer MEDICARE, OTHER ==
[~2021-01-09] MED LIST changes: +ARIP15TA20 PO; -ARIP15TA9 PO; +CALC600T91 PO; -CLC600T PO; +DOXY-311 PO; -DOXY100C42 PO; -OMEP40CA27 PO; +OMEP40CA6 PO; -PHEN37.53 PO; +PHEN37.58 PO; -RT-ALBUTEROL SULF 2.5 MG/3 ML PRE-MIX VIAL INH ONE
== END ==
LOC: LABNPT 06:26
PROVIDERS: ATTEND Nurse Practitioner Family
DX: U07.1 COVID-19 (principal)
CPT/HCPCS: 87635

== ENCOUNTER → 2021-02-21 | Outpatient (CLI) | payer MEDICARE, OTHER | LOC: LABNPT 06:29 | PROVIDERS: ATTEND Nurse Practitioner Family | DX: Z20.822 Contact with and (suspected) exposure to COVID-19 (principal) | CPT/HCPCS: 87635 ==

== ENCOUNTER 2021-02-23 20:38 | Outpatient (CLI) | payer MEDICARE, OTHER | END 2021-02-26 07:45 | disposition home or self-care (01) | LOC: SLEEP 20:38 | PROVIDERS: ATTEND Nurse Practitioner Family | DX: Z01.89 Encounter for other specified special examinations (principal); G47.33 Obstructive sleep apnea (adult) (pediatric); K21.9 Gastro-esophageal reflux disease without esophagitis; J98.4 Other disorders of lung; Z86.16 Personal history of COVID-19 | CPT/HCPCS: 95811 ==

== ENCOUNTER → 2021-06-05 | Outpatient (CLI) | payer MEDICARE, OTHER ==
[~2021-06-05] MED LIST changes: +MONT-40 PO; -MONT10TA32 PO
--- NOTE | 2021-06-05 16:31 | Diagnostic Imaging Report ---
EXAMINATION: Digital mammogram bilateral screening with CAD. INDICATION: Screening. COMPARISON: This study was compared to the prior exams of 06/30/2019 and 07/03/2020. PERSONAL HISTORY: At this time, there are no current complaints. FINDINGS: The fibroglandular tissue in both breasts is heterogeneously dense. This does limit the sensitivity of this exam. Overall, there does not appear to have been any significant change when compared to the prior study. No primary or secondary sign of malignancy is noted. IMPRESSION: There is no radiographic evidence for malignancy. ACR BI-RADS Category 1: Negative. Result letter will be mailed to the patient. Note: At least 10% of breast cancer is not imaged by mammography. Dictated by: Dictated on workstation # [id number]
== END ==
LOC: RAD 11:30
PROVIDERS: ATTEND Nurse Practitioner Family
DX: Z12.31 Encounter for screening mammogram for malignant neoplasm of breast (principal)
CPT/HCPCS: 77063; 77067

== ENCOUNTER 2022-05-04 19:11 | Emergency (ER) | payer MEDICARE, OTHER ==
[~2022-05-04] VITALS: Ht 165 cm; Wt 104.5 kg
[~2022-05-04 19:11] MED LIST changes: +ALBU8.5H6 IH; +BUPR-105 PO; -BUPR150T14 PO; -DOXY-311 PO; +DOXY-444 PO; -RT-ALBUINH IH
[2022-05-04 19:22] VITALS: BP 153/103
[2022-05-04] MEDS ORDERED: PRD20T PO (20:04)
--- NOTE | 2022-05-04 20:04 | ED General ---
General Chief Complaint: Cough/Cold/Flu Symptoms Stated Complaint: COUGH/WHEEZING/BODYACHES Nursing Triage Note: PT STATES SHE HAS HAD COUGH, CONGESTION, BODY ACHES SINCE FRIDAY, DENIES FEVER Source of Information: Patient Exam Limitations: No Limitations (ANDREW JAMES APRN) History of Present Illness Date Seen by Provider: May 04, 2022 Time Seen by Provider: 19:30 Initial Comments Patient is a 61-year-old female who presents to the emergency department for evaluation of cough, congestion, and body aches that began 4 days ago. Patient's spouse is also being seen today in the ER for similar symptoms. Patient has not had a fever. No known sick contacts outside of spouse. Patient denies any chest pain, shortness of air, or vomiting/diarrhea. No medications today outside of normal medicines. (ANDREW JAMES APRN) Allergies and Home Medications Allergies Coded Allergies: No Known Drug Allergies (Unverified , 01/28/18) Patient Home Medication List Home Medication List Reviewed: Yes (ANDREW JAMES APRN) Aspirin (Aspirin EC) 81 Mg Tablet.dr, 81 MG PO DAILY, (Reported) Entered as Reported by: SARAH FERGUSON on 07/03/16818 Calcium Carbonate (Calcium) 600 Mg Tablet, 600 MG PO DAILY, (Reported) Entered as Reported by: SUMMER HERNANDEZ on 02/12/202249 Cholecalciferol (Vitamin D3) (Vitamin D3) 25 Mcg Capsule, 25 MCG PO DAILY, (Reported) Entered as Reported by: AVANI MCDONNELL on 02/14/201555 Diclofenac Sodium (Diclofenac Sodium) 75 Mg Tablet., 75 MG PO BID, (Reported) Entered as Reported by: AVANI MCDONNELL on 02/14/20 155 Duloxetine HCl (Duloxetine HCl) 60 Mg Capsule.dr, 60 MG PO HS, (Reported) Entered as Reported by: SARAH FERGUSON on 07/03/16818 Estrogens, Conjugated (Premarin) 0.9 Mg Tablet, 0.3 MG PO DAILY, (Reported) Entered as Reported by: SARAH FERGUSON on 07/03/16818 Estrogens, Conjugated (Premarin) 0.3 Mg Tablet, 0.3 MG PO DAILY, (Reported) Entered as Reported by: AVANI MCDONNELL on 02/14/20 155 Fluticasone/Salmeterol (Advair 250-50 Diskus) 1 Each Blst.w.dev, 1 EACH IH BID, (Reported) Entered as Reported by: SUMMER HERNANDEZ on 02/12/202249 Gabapentin (Neurontin) 300 Mg Capsule, 300 MG PO TID, (Reported) Entered as Reported by: AVANI MCDONNELL on 02/14/201555 Hydrochlorothiazide (Hydrochlorothiazide) 25 Mg Tablet, 25 MG PO DAILY, (Reported) Entered as Reported by: AVANI MCDONNELL on 02/14/201555 Meloxicam (Meloxicam) 15 Mg Tablet, 15 MG PO DAILY, (Reported) Entered as Reported by: SUMMER HERNANDEZ on 02/12/202249 Montelukast Sodium (Montelukast Sodium) 10 Mg Tablet, 10 MG PO DAILY, (Reported) Entered as Reported by: AVANI MCDONNELL on 02/14/201555 Multivitamin (Multivitamin) 1 Each Tablet, 1 EACH PO DAILY, (Reported) Entered as Reported by: AVANI MCDONNELL on 02/14/201555 Omeprazole (Omeprazole) 40 Mg Capsule.dr, 40 MG PO DAILY, (Reported) Entered as Reported by: ELAINA QUEZADA on 01/28/18 111 Phentermine HCl (Phentermine HCl) 37.5 Mg Tablet, 37.5 MG PO DAILY, (Reported) Entered as Reported by: AVANI MCDONNELL on 02/14/201555 Prednisone (Prednisone) 10 Mg Tab.ds.pk, 10 MG PO DAILY Prescribed by: KOLTON GONZALEZ on 02/15/20 110 Prednisone (Prednisone) 20 Mg Tab, 40 MG PO DAILY Prescribed by: Andrew James on 05/04/222003 Propranolol HCl (Propranolol HCl) 40 Mg Tablet, 40 MG PO BID, (Reported) Entered as Reported by: SUMMER HERNANDEZ on 02/12/202249 Trazodone HCl (Trazodone HCl) 100 Mg Tablet, 100 MG PO HS, (Reported) Entered as Reported by: AVANI MCDONNELL on 02/14/201555 Trihexyphenidyl HCl (Trihexyphenidyl HCl) 2 Mg Tablet, 2 MG PO BID, (Reported) Entered as Reported by: ELAINA QUEZADA on 01/28/18 1113 Review of Systems Review of Systems Constitutional: see HPI, malaise EENTM: see HPI, nose congestion Respiratory: see HPI, cough Cardiovascular: no symptoms reported Gastrointestinal: no symptoms reported (ANDREW JAMES APRN) Past Qyftihk-Urpohu-Grzijv Hx Patient Social History Tobacco Use?: No Substance use?: No Alcohol Use?: No Pt feels they are or have been: No (ANDREW JAMES APRN) Immunizations Up To Date PED Vaccines UTD: No Influenza Vaccine Up-to-Date: Yes; Up-to-Date (ANDREW JAMES APRN) Seasonal Allergies Seasonal Allergies: Yes (ANDREW JAMES APRN) Past Medical History Surgeries: Yes (SHOULDER, DISCECTOMY, back) Breast, Gallbladder, Hysterectomy, Orthopedic, Tubal Ligation Respiratory: Yes Pneumonia, Chronic Bronchitis, COPD Currently Using CPAP: Yes Currently Using BIPAP: No Cardiac: Yes (mitral valve prolapse ) High Cholesterol, Hypertension, Valvular Heart Disease Neurological: Yes (tremors) Headaches /Migraines Reproductive Disorders: No Sexually Transmitted Disease: No HIV/AIDS: No Genitourinary: Yes Kidney Stones, Neurogenic Bladder Gastrointestinal: Yes Gastroesophageal Reflux, Chronic Constipation Musculoskeletal: Yes Arthritis, Chronic Back Pain Endocrine: No (OBESE) HEENT: No Loss of Vision: Bilateral Hearing Impairment: Denies Cancer: No Psychosocial: Yes (manic depressive disorder) Anxiety, PTSD, Bipolar, Schizophrenia Integumentary: No Blood Disorders: No Adverse Reaction/Blood Tranf: Yes (HAS HAD BLOOD WITH NO REACTION) (ANDREW JAMES APRN) Family Medical History Alzheimer's disease Arthritis Asthma Colon cancer Diabetes mellitus Myocardial infarction Psychosocial problem Respiratory disorder Visual disorder No Pertinent Family Hx (ANDREW JAMES APRN) Physical Exam Vital Signs Vital Signs - First Documented 05/04/22 19:22 Temp 36.4 Pulse 67 Resp 18 B/P (MAP) 153/103 (120) Pulse Ox 95 (NISHANT MONTEJO MD) Vital Signs Capillary Refill : (ANDREW JAMES APRN) Height, Weight, BMI Height: 5'6.00" Weight: 230lbs. 0.0oz. 104.079414uk; 38.00 BMI Method:Stated General Appearance: No Apparent Distress, WD/WN HEENT: PERRL/EOMI, TMs Normal, Normal ENT Inspection, Pharynx Normal Neck: Non Tender, Supple Respiratory: Chest Non Tender, Lungs Clear, Normal Breath Sounds, No Accessory Muscle Use, No Respiratory Distress Cardiovascular: Regular Rate, Rhythm Gastrointestinal: Non Tender, Soft Neurologic/Psychiatric: Alert, Oriented x3, No Motor/Sensory Deficits, Normal Mood/Affect, care attendant II-XII Norm as Tested Skin: Normal Color, Warm/Dry (ANDREW JAMES APRN) Progress/Results/Core Measures Suspected Sepsis SIRS Temperature: Pulse: 67 Respiratory Rate: 18 Blood Pressure 153 /103 Mean: 120 (ANDREW JAMES APRN) Results/Orders Lab Results Laboratory Tests Test 05/04/22 19:25 Range/Units Influenza Type A (RT-PCR) Detected H Not Detecte Influenza Type B (RT-PCR) Not Detected Not Detecte SARS-CoV-2 RNA (RT-PCR) Not Detected Not Detecte (NISHANT MONTEJO MD) My Orders Orders - NISHANT MONTEJO MD Covid 19 Inhouse Test (05/04/22 19:19) Influenza A And B By Pcr (05/04/22 19:19) (NISHANT MONTEJO MD) Vital Signs/I&O 05/04/22 19:22 Temp 36.4 Pulse 67 Resp 18 B/P (MAP) 153/103 (120) Pulse Ox 95 (NISHANT MONTEJO MD) Vital Signs/I&O Capillary Refill : (ANDREW JAMES APRN) Blood Pressure Mean: 120 Progress Note : Progress Note Patient is nontoxic and well-hydrated on exam. No adventitious lung sounds or increased work of breathing noted. Vital signs are reassuring. Rapid flu test positive for flu A. Discussed supportive care and anticipatory guidance. Follow-up with PCP. Return precautions for urgent symptomology discussed. Patient verbalized understanding. (ANDREW JAMES APRN) Departure Impression Primary Impression: Influenza A Disposition: 01 HOME, SELF-CARE Condition: Stable Departure-Patient Inst. Decision time for Depature: 20:00 (ANDREW JAMES APRN) Referrals: [facility] (PCP) Primary Care Physician ALEXANDRA RAMIREZ (Family) Primary Care Physician Patient Instructions: Flu, Adult (DC) Scripts Prednisone (Prednisone) 20 Mg Tab 40 MG PO DAILY for 5 Days, #10 TAB 0 Refills Prov: JAMES,ANDREW CLAIM CLINICIAN 05/04/22 ATTENDING PHYSICIAN NOTE: I was physically present as attending physician in the emergency department during the care of this patient, but I was not directly involved in the decision making or delivery of care for this patient. (NISHANT MONTEJO MD) ANDREW JAMES APRN May 04, 2022 20:04 NISHANT MONTEJO MD May 06, 2022 05:35
== END 2022-05-04 20:12 | disposition home or self-care (01) ==
LOC: EDUNIT# 19:11 → ER 19:13
DX: J10.1 Influenza due to other identified influenza virus with other respiratory manifestations (principal); J44.9 Chronic obstructive pulmonary disease, unspecified; E66.9 Obesity, unspecified; Z99.89 Dependence on other enabling machines and devices; Z68.38 Body mass index [BMI] 38.0-38.9, adult; Z20.822 Contact with and (suspected) exposure to COVID-19
CPT/HCPCS: 87636; 99283

== ENCOUNTER 2022-06-11 16:49 | Emergency (ER) | payer MEDICARE, OTHER ==
[~2022-06-11] VITALS: Ht 167.7 cm; Wt 106.0 kg
--- NOTE | 2022-06-11 18:38 | Diagnostic Imaging Report ---
PROCEDURE: CT head without contrast. TECHNIQUE: Multiple contiguous axial images were obtained through the brain without the use of intravenous contrast. Auto Exposure Controls were utilized during the CT exam to meet ALARA standards for radiation dose reduction. INDICATION: Leg pain and pain at the top of the head. The ventricles and sulci are somewhat prominent consistent with cerebral volume loss. There is no sulcal effacement or midline shift. No acute intra-axial or extra-axial hemorrhage is detected. Cisterns are patent. Visualized paranasal sinuses are clear. IMPRESSION: No acute intracranial process is detected. Dictated by: Dictated on workstation # [id number]
--- NOTE | 2022-06-11 18:50 | ED General ---
General Chief Complaint: General Problems/Pain Stated Complaint: HEAD PAIN,LT LEG PAIN Nursing Triage Note: PT AMB TO ER WITH C/O L LEG PAIN SINCE THIS SUMMER AND THE BACK AND TOP OF HER HEAD HAS BEEN HURTING SINCE FRIDAY. PT STATES "THE PAIN IS NOT A HEADACHE". PT STATES SHE WAS SEEN AT [facility] AND WAS TOLD TO COME TO ER FOR CT SCAN Source of Information: Patient Exam Limitations: No Limitations (ANDREW JAMES APRN) History of Present Illness Date Seen by Provider: Jun 11, 2022 Time Seen by Provider: 18:00 Initial Comments History obtained from patient and her spouse. Patient is a 61-year-old female who presents to the emergency department for evaluation of left leg pain that has been present for 7 to 8 months as well as posterior head pain has been present for the last 2 to 3 days. Patient has not seen anyone for the leg pain. She denies any injury to the leg or head prior to the onset of the respective pains. Patient endorses a history of "extra fluid at the back of my head". She is unable to further elaborate on the specific diagnosis that may have been made at that time. She states she does have some "vision changes" but is unable to elucidate the specifics. She denies any vision loss. Denies any difficulty or pain with movement of her eyes. Denies any focal numbness/weakness. She has not taken anything for the symptoms since they began. (ANDREW JAMES APRN) Allergies and Home Medications Allergies Coded Allergies: No Known Drug Allergies (Unverified , 01/28/18) Patient Home Medication List Home Medication List Reviewed: Yes (ANDREW JAMES APRN) Aspirin (Aspirin EC) 81 Mg Tablet., 81 MG PO DAILY, (Reported) Entered as Reported by: SARAH FERGUSON on 07/03/16 0819 Calcium Carbonate (Calcium) 600 Mg Tablet, 600 MG PO DAILY, (Reported) Entered as Reported by: SUMMER HERNANDEZ on 02/12/20 2250 Cholecalciferol (Vitamin D3) (Vitamin D3) 25 Mcg Capsule, 25 MCG PO DAILY, (Reported) Entered as Reported by: AVAIN MCDONNELL on 02/14/20 155 Diclofenac Sodium (Diclofenac Sodium) 75 Mg Tablet., 75 MG PO BID, (Reported) Entered [place]: [place] [address] Duloxetine HCl (Duloxetine HCl) 60 Mg Capsule.dr, 60 MG PO HS, (Reported) Entered as Reported by: SARAH FERGUSON on 07/03/16818 Estrogens, Conjugated (Premarin) 0.9 Mg Tablet, 0.3 MG PO DAILY, (Reported) Entered as Reported by: SARAH FERGUSON on 07/03/16818 Estrogens, Conjugated (Premarin) 0.3 Mg Tablet, 0.3 MG PO DAILY, (Reported) Entered as Reported by: AVANI MCDONNELL on 02/14/201555 Fluticasone/Salmeterol (Advair 250-50 Diskus) 1 Each Blst.w.dev, 1 EACH IH BID, (Reported) Entered as Reported by: SUMMER HERNANDEZ on 02/12/202249 Gabapentin (Neurontin) 300 Mg Capsule, 300 MG PO TID, (Reported) Entered as Reported by: AVANI MCDONNELL on 02/14/201555 Hydrochlorothiazide (Hydrochlorothiazide) 25 Mg Tablet, 25 MG PO DAILY, (Reported) Entered as Reported by: AVANI MCDONNELL on 02/14/201555 Meloxicam (Meloxicam) 15 Mg Tablet, 15 MG PO DAILY, (Reported) Entered as Reported by: SUMMER HERNANDEZ on 02/12/202249 Montelukast Sodium (Montelukast Sodium) 10 Mg Tablet, 10 MG PO DAILY, (Reported) Entered as Reported by: AVANI MCDONNELL on 02/14/201555 Multivitamin (Multivitamin) 1 Each Tablet, 1 EACH PO DAILY, (Reported) Entered as Reported by: AVANI MCDONNELL on 02/14/201555 Omeprazole (Omeprazole) 40 Mg Capsule.dr, 40 MG PO DAILY, (Reported) Entered as Reported by: ELAINA QUEZADA on 01/28/18 111 Phentermine HCl (Phentermine HCl) 37.5 Mg Tablet, 37.5 MG PO DAILY, (Reported) Entered as Reported by: AVANI MCDONNELL on 02/14/201555 Prednisone (Prednisone) 10 Mg Tab.ds.pk, 10 MG PO DAILY Prescribed by: KOLTON GONZALEZ on 02/15/20 1103 Prednisone (Prednisone) 20 Mg Tab, 40 MG PO DAILY Prescribed by: Andrew James on 05/04/222003 Propranolol HCl (Propranolol HCl) 40 Mg Tablet, 40 MG PO BID, (Reported) Entered as Reported by: SUMMER HERNANDEZ on 02/12/20 225 Trazodone HCl (Trazodone HCl) 100 Mg Tablet, 100 MG PO HS, (Reported) Entered as Reported by: AVANI MCDONNELL on 02/14/20 1556 Trihexyphenidyl HCl (Trihexyphenidyl HCl) 2 Mg Tablet, 2 MG PO BID, (Reported) Entered as Reported by: ELAINA QUEZADA on 01/28/18 1113 Review of Systems Review of Systems Constitutional: no symptoms reported EENTM: no symptoms reported Respiratory: no symptoms reported Cardiovascular: no symptoms reported Gastrointestinal: no symptoms reported Genitourinary: no symptoms reported Musculoskeletal: see HPI Skin: no symptoms reported Psychiatric/Neurological: See HPI, Headache (ANDREW JAMES APRN) Past Kvrybql-Mmbmrp-Nhiywe Hx Patient Social History Tobacco Use?: No Substance use?: No Alcohol Use?: No Pt feels they are or have been: No (ANDREW JAMES APRN) Immunizations Up To Date PED Vaccines UTD: No Influenza Vaccine Up-to-Date: Yes; Up-to-Date (ANDREW JAMES APRN) Seasonal Allergies Seasonal Allergies: Yes (ANDREW JAMES APRN) Past Medical History Surgery/Hospitalization HX: BIPOLAR, SCHIZOEFFECTIVE, PTSD, ANXIETY, HTN Surgeries: Yes (SHOULDER, DISCECTOMY, back) Breast, Gallbladder, Hysterectomy, Orthopedic, Tubal Ligation Respiratory: Yes Pneumonia, Chronic Bronchitis, COPD Currently Using CPAP: Yes Currently Using BIPAP: No Cardiac: Yes (mitral valve prolapse ) High Cholesterol, Hypertension, Valvular Heart Disease Neurological: Yes (tremors) Headaches /Migraines Reproductive Disorders: No Sexually Transmitted Disease: No HIV/AIDS: No Genitourinary: Yes Kidney Stones, Neurogenic Bladder Gastrointestinal: Yes Gastroesophageal Reflux, Chronic Constipation Musculoskeletal: Yes Arthritis, Chronic Back Pain Endocrine: No (OBESE) HEENT: No Loss of Vision: Bilateral Hearing Impairment: Denies Cancer: No Psychosocial: Yes (manic depressive disorder) Anxiety, PTSD, Bipolar, Schizophrenia Integumentary: No Blood Disorders: No Adverse Reaction/Blood Tranf: Yes (HAS HAD BLOOD WITH NO REACTION) (ANDREW JAMES APRN) Family Medical History Alzheimer's disease Arthritis Asthma Colon cancer Diabetes mellitus Myocardial infarction Psychosocial problem Respiratory disorder Visual disorder No Pertinent Family Hx (ANDREW JAMES APRN) Physical Exam Vital Signs Vital Signs - First Documented 06/11/22 17:12 Temp 36.8 Pulse 65 Resp 16 B/P (MAP) 135/82 (99) (MADISON PRIETO DO) Vital Signs Capillary Refill : (ANDREW JAMES APRN) Height, Weight, BMI Height: 5'6.00" Weight: 230lbs. 0.0oz. 104.067602lk; 37.00 BMI Method:Stated General Appearance: No Apparent Distress, WD/WN HEENT: PERRL/EOMI, TMs Normal, Normal ENT Inspection, Pharynx Normal Neck: Full Range of Motion, Normal Inspection, Non Tender, Supple Respiratory: Chest Non Tender, Lungs Clear, Normal Breath Sounds, No Accessory Muscle Use, No Respiratory Distress Cardiovascular: Regular Rate, Rhythm, Normal Peripheral Pulses Gastrointestinal: No Pulsatile Mass, Non Tender, Soft Extremity: Normal Range of Motion, Non Tender, No Calf Tenderness Neurologic/Psychiatric: Alert, Oriented x3, No Motor/Sensory Deficits, Normal Mood/Affect Skin: Normal Color, Warm/Dry (ANDREW JAMES APRN) Progress/Results/Core Measures Suspected Sepsis SIRS Temperature: Pulse: 65 Respiratory Rate: 16 Blood Pressure 135 /82 Mean: 99 (ANDREW JAMES APRN) Results/Orders Vital Signs/I&O 06/11/22 06/11/22 17:12 19:02 Temp 36.8 Pulse 65 Resp 16 B/P (MAP) 135/82 (99) 129/86 (MADISON PRIETO DO) Vital Signs/I&O Capillary Refill : (ANDREW JAMES APRN) Blood Pressure Mean: 99 Progress Note : Progress Note Patient is nontoxic and well-hydrated on exam. Vital signs reassuring. Patient has full range of motion of the left leg. Neurovascular function is intact. No calf tightness and Homans' sign is negative. No provocation of pain with palpation of the occipital scalp. Patient has forage motion of the neck without provocation of pain. No nuchal rigidity appreciated. Order placed for CT of the head for further evaluation of her head pain. No diagnostic testing indicated for the chronic leg pain as there has been no acute changes and pretest probability for DVT is exceedingly low. CT of the head negative for any large bleed or other obvious abnormality on my wet read. For radiology report agrees as they note no acute findings. I discussed that patient would benefit from following up with her orthopedic provider for further evaluation of her left leg pain. I also encouraged her to closely follow-up with her PCP and/or her neurologist for further evaluation of her head pain. Return precautions for urgent symptomology discussed. Patient and spouse verbalized understanding. (ANDREW JAMES APRN) Departure Impression Primary Impression: Occipital headache Additional Impression: Chronic pain of left lower extremity Disposition: HOME, SELF-CARE Condition: Stable Departure-Patient Inst. Decision time for Depature: 18:50 (ANDREW JAMES APRN) Referrals: [facility] (PCP) Primary Care Physician AVANI ALMAGUER DO (Family) Primary Care Physician Patient Instructions: Chronic Pain (DC), Headache, Adult ED Add. Discharge Instructions: Follow-up closely with your regular doctor as well as your orthopedic doctor in regards to your leg pain. It is also important you follow-up with your regular doctor for further evaluation of your head pain. If you develop any new concerning neurologic symptoms please return to the ER for further evaluation. All discharge instructions reviewed with patient and/or family. Voiced understanding. ATTENDING PHYSICIAN NOTE: I WAS PHYSICALLY PRESENT ER PHYSICIAN, BUT I WAS NOT INVOLVED IN ANY DECISION MAKING OR ANY CARE OF THIS PATIENT, AND I AM NOT COLLABORATING PHYSICIAN. (MADISON PRIETO DO) ANDREW JAMES APRN Jun 11, 2022 18:50 MADISON PRIETO DO Jun 13, 2022 00:42
[2022-06-11 19:02] VITALS: BP 129/86
== END 2022-06-11 19:00 | disposition home or self-care (01) ==
LOC: EDUNIT# 16:49 → ER 16:51
DX: M79.605 Pain in left leg (principal); G89.29 Other chronic pain; R51.9 Headache, unspecified; E66.9 Obesity, unspecified; Z68.37 Body mass index [BMI] 37.0-37.9, adult
CPT/HCPCS: 70450

== ENCOUNTER 2023-04-01 13:45 | Emergency (ER) | payer MEDICARE, OTHER ==
[~2023-04-01] VITALS: Ht 165 cm; Wt 100.2 kg
[~2023-04-01 13:45] MED LIST changes: -BENZ1TAB6 PO; +BENZ1TAB74 PO; +MONT-47 PO; -MONT10TA21 PO
[2023-04-01] MEDS ORDERED: ONDANSETRON INJECTION 4 MG/2 ML (SDV) IVP ONE (14:30)
--- NOTE | 2023-04-01 14:45 | ED Head Injury ---
General Chief Complaint: Trauma-Non Activation Stated Complaint: FALL | HEAD INJ Nursing Triage Note: PT AMB TO RM 10 WITH CC OF HEAD INJURY AFTER FALLING OUT OF HER CAMPER AND HITTING THE RIGHT SIDE OF HER HEAD AND RIGHT ARM ON CONCRETE 1.5HRS AGO. PT WAS SEEN AT [facility] AND SENT TO ER BY POCathryn. PT REPORTS BLURRED VISION, LUNDBERG, AND N/V. PT IS CURRENTLY TAKING ASA. Source: patient Exam Limitations: no limitations History of Present Illness Date Seen by Provider: Apr 01, 2023 Time Seen by Provider: 14:23 Initial Comments 62-year-old female presents to the ER for a fall. She states that she lost her balance coming out of her camper and fell hitting the right side of her head and her right arm on concrete. She was seen at the [facility] walk-in clinic, they suggested that she come to the ER because they felt like her smile was uneven and her speech is abnormal. Patient complains of fatigue, nausea, blurred vision, headache. She denies loss of consciousness or syncopal episode. Denies vomiting. Allergies and Home Medications Allergies Coded Allergies: No Known Drug Allergies (Unverified , 01/28/18) Patient Home Medication List Home Medication List Reviewed: Yes Aspirin (Aspirin EC) 81 Mg Tablet., 81 MG PO DAILY, (Reported) Entered as Reported by: SARAH FERGUSON on 07/03/16818 Calcium Carbonate (Calcium) 600 Mg Tablet, 600 MG PO DAILY, (Reported) Entered as Reported by: SUMMER HERNANDEZ on 02/12/20 2250 Cholecalciferol (Vitamin D3) (Vitamin D3) 25 Mcg Capsule, 25 MCG PO DAILY, (Reported) Entered as Reported by: AVANI MCDONNELL on 02/14/20 155 Diclofenac Sodium (Diclofenac Sodium) 75 Mg Tablet., 75 MG PO BID, (Reported) Entered as Reported by: AVANI MCDONNELL on 02/14/20 1556 Duloxetine HCl (Duloxetine HCl) 60 Mg Capsule., 60 MG PO HS, (Reported) Entered as Reported by: SARAH FERGUSON on 07/03/16818 Estrogens, Conjugated (Premarin) 0.9 Mg Tablet, 0.3 MG PO DAILY, (Reported) Entered as Reported by: SARAH FERGUSON on 07/03/16818 Estrogens, Conjugated (Premarin) 0.3 Mg Tablet, 0.3 MG PO DAILY, (Reported) Entered as Reported by: AVANI MCDONNELL on 02/14/201555 Fluticasone/Salmeterol (Advair 250-50 Diskus) 1 Each Blst.w.dev, 1 EACH IH BID, (Reported) Entered as Reported by: SUMMER HERNANDEZ on 02/12/202249 Gabapentin (Neurontin) 300 Mg Capsule, 300 MG PO TID, (Reported) Entered as Reported by: AVANI MCDONNELL on 02/14/201555 Hydrochlorothiazide (Hydrochlorothiazide) 25 Mg Tablet, 25 MG PO DAILY, (Reported) Entered as Reported by: AVANI MCDONNELL on 02/14/201555 Meloxicam (Meloxicam) 15 Mg Tablet, 15 MG PO DAILY, (Reported) Entered as Reported by: SUMMER HERNANDEZ on 02/12/202249 Montelukast Sodium (Montelukast Sodium) 10 Mg Tablet, 10 MG PO DAILY, (Reported) Entered as Reported by: AVANI MCDONNELL on 02/14/201555 Multivitamin (Multivitamin) 1 Each Tablet, 1 EACH PO DAILY, (Reported) Entered as Reported by: AVANI MCDONNELL on 02/14/201555 Omeprazole (Omeprazole) 40 Mg Capsule.dr, 40 MG PO DAILY, (Reported) Entered as Reported by: ELAINA QUEZADA on 01/28/18 111 Phentermine HCl (Phentermine HCl) 37.5 Mg Tablet, 37.5 MG PO DAILY, (Reported) Entered as Reported by: AVANI MCDONNELL on 02/14/201555 Prednisone (Prednisone) 10 Mg Tab.ds.pk, 10 MG PO DAILY Prescribed by: KOLTON GONZALEZ on 02/15/20 1103 Prednisone (Prednisone) 20 Mg Tab, 40 MG PO DAILY Prescribed by: Andrew James on 05/04/222003 Propranolol HCl (Propranolol HCl) 40 Mg Tablet, 40 MG PO BID, (Reported) Entered as Reported by: SUMMER HERNANDEZ on 02/12/202249 Trazodone HCl (Trazodone HCl) 100 Mg Tablet, 100 MG PO HS, (Reported) Entered as Reported by: AVANI MCDONNELL on 02/14/201555 Trihexyphenidyl HCl (Trihexyphenidyl HCl) 2 Mg Tablet, 2 MG PO BID, (Reported) Entered as Reported by: ELAINA QUEZADA on 01/28/18 1113 Review of Systems Review of Systems Constitutional: see HPI Past Nquvmfg-Kqakkq-Vruuzu Hx Patient Social History Tobacco Use?: No Substance use?: No Alcohol Use?: No Immunizations Up To Date PED Vaccines UTD: No Seasonal Allergies Seasonal Allergies: Yes Past Medical History Surgery/Hospitalization HX: BIPOLAR, SCHIZOEFFECTIVE, PTSD, ANXIETY, HTN, COPD Surgeries: Yes (SHOULDER, DISCECTOMY, back) Breast, Gallbladder, Hysterectomy, Orthopedic, Tubal Ligation Respiratory: Yes Pneumonia, Chronic Bronchitis, COPD Currently Using CPAP: Yes Currently Using BIPAP: No Cardiac: Yes (mitral valve prolapse ) High Cholesterol, Hypertension, Valvular Heart Disease Neurological: Yes (tremors) Headaches /Migraines Reproductive Disorders: No Sexually Transmitted Disease: No HIV/AIDS: No Genitourinary: Yes Kidney Stones, Neurogenic Bladder Gastrointestinal: Yes Gastroesophageal Reflux, Chronic Constipation Musculoskeletal: Yes Arthritis, Chronic Back Pain Endocrine: No (OBESE) HEENT: No Loss of Vision: Bilateral Hearing Impairment: Denies Cancer: No Psychosocial: Yes (manic depressive disorder) Anxiety, PTSD, Bipolar, Schizophrenia Integumentary: No Blood Disorders: No Adverse Reaction/Blood Tranf: Yes (HAS HAD BLOOD WITH NO REACTION) Family Medical History Alzheimer's disease Arthritis Asthma Colon cancer Diabetes mellitus Myocardial infarction Psychosocial problem Respiratory disorder Visual disorder No Pertinent Family Hx Physical Exam Vital Signs Vital Signs - First Documented 04/01/23 14:00 Pulse 59 B/P (MAP) 149/91 (110) Pulse Ox 95 O2 Delivery Room Air Capillary Refill : Height, Weight, BMI Height: 5'6.00" Weight: 230lbs. 0.0oz. [id number]; 36.00 BMI Method:Stated General Appearance: WD/WN, no apparent distress HEENT: PERRL/EOMI, TMs normal, other (Smile appears symmetric) Neck: non-tender, full range of motion, supple, normal inspection Cardiovascular: regular rate, rhythm Respiratory: lungs clear, normal breath sounds, no respiratory distress, no accessory muscle use Extremities: normal range of motion, normal inspection, other (Bony tenderness to right forearm) Psychiatric: alert (Cranial nerves II through XII normal as tested), oriented x 3 Crainal Nerves: normal hearing, normal speech, PERRL Coordination/Gait: normal gait Motor/Sensory: no motor deficit, no sensory deficit Skin: normal color, warm/dry Progress/Results/Core Measures Results/Orders My Orders Orders - KEHINDE KELLY APRN Ct Head Wo (04/01/23 14:30) Ondansetron Injection (Ondansetron Inj (04/01/23 14:30) Forearm, Right, 2 Views (04/01/23 14:39) Medications Given in ED Current Medications Medications Dose Ordered Sig/Kanchan Route Start Time Stop Time Status Last Admin Dose Admin Ondansetron HCl 4 mg ONCE ONCE IVP 04/01/23 14:30 04/01/23 14:31 DC 04/01/23 14:34 4 MG Vital Signs/I&O 04/01/23 04/01/23 14:00 15:53 Pulse 59 64 B/P (MAP) 149/91 (110) 116/65 Pulse Ox 95 96 O2 Delivery Room Air Blood Pressure Mean: 110 Progress Progress Note : Progress Note Patient seen and evaluated, resting in bed, appears fatigued. Smile shows mildly flattened nasolabial fold on left side compared to right, not significant. When patient laughs, smile is even. CT of head ordered. Zofran ordered for nausea. 1530 CT and x-ray reviewed. Forearm x-ray shows no acute bony abnormality. CT head shows no acute intracranial abnormality. Stable mild ventricular prominence. Results discussed with patient and son. Patient likely has a concussion. Concussion precautions provided. Discharge instructions and return precautions provided. Diagnostic Imaging Diagonstic Imaging: Xray Plain Films/CT/US/NM/MRI: forearm Comments [facility], [place] NAME: SMILEY CORONADO [facility] REC#: [id number] PT STATUS: DEP ER : 08/19/1988 PHYSICIAN: KEHINDE KELLY APRN ADMIT DATE: 04/01/23/ER Signed Date of Exam:04/01/23 CT LUMBAR SPINE WO PROCEDURE: CT lumbar spine without contrast. TECHNIQUE: Multiple contiguous axial images were obtained through the lumbar spine without the use of intravenous contrast. Sagittal and coronal reformations were then performed. Auto Exposure Controls were utilized during the CT exam to meet ALARA standards for radiation dose reduction. INDICATION: Back pain. FINDINGS: Lumbar statures are normal, their alignment is anatomic. There are mild degenerative changes to the L5-S1 disc which shows mild stature loss and mild circumferential bulge with no substantial canal, foraminal, or recess stenosis. No paravertebral mass, hemorrhage, or fluid collection. No fracture or acute bony destruction. Pedicles and pars were intact. The remaining discs are well hydrated and nondisplaced. Well-corticated cyst as a chronic nonaggressive finding in the left iliac bone noted. IMPRESSION: Mild L5-S1 spondylosis without stenosis. Normal alignment. No acute or chronic fracture. No significant abnormality. Dictated by: Dictated on workstation # [id number] Dict: 04/01/23 1435 Trans: 04/01/231649 AS6 [id number] Interpreted by: BROCK MELISSA Electronically signed by: BROCK MELISSA 04/01/231649 Diagonstic Imaging: CT Plain Films/CT/US/NM/MRI: head Comments [facility] [place] NAME: HONORIO STEINDRMarky Kirkland [facility] REC#: [id number] PT STATUS: DEP ER : 1960 PHYSICIAN: KEHINDE KELLY APRN ADMIT DATE: 04/01/23/ER Signed Date of Exam:04/01/23 CT HEAD WO INDICATION: Head injury after fall, blurred vision and headache. TECHNIQUE: Multiple contiguous axial images were obtained through the brain without the use of intravenous contrast. Auto Exposure Controls were utilized during the CT exam to meet ALARA standards for radiation dose reduction. COMPARISON: Comparison made to 06/11/2022. FINDINGS: There were no extra-axial fluid collections. No intracranial hemorrhage. No intracranial mass or mass effect. No midline shift. The ventricles are mildly prominent but appear stable compared to the previous study. There is no acute territorial ischemia. There is no calvarial fracture. IMPRESSION: No acute intracranial abnormality. Stable mild ventricular prominence compared to the previous study. Dictated by: Dictated on workstation # [id number] Dict: 04/01/23 1449 Trans: 04/01/23 1610 AS6 [id number] Interpreted by: GABE ROMANO MD Electronically signed by: GABE ROMANO MD 04/01/23 1610 Departure Impression Primary Impression: Concussion Disposition: 01 HOME, SELF-CARE Condition: Stable Departure-Patient Inst. Decision time for Depature: 15:33 Referrals: [facility] [place] [facility] [place] Primary Care Physician AVANI ALMAGUER DO (Family) Primary Care Physician Patient Instructions: Concussion in adults Add. Discharge Instructions: Avoid activities that cause headache or nausea and vomiting. Avoid phones, TV screens, loud noises, etc. If you develop a headache or nausea vomiting, stop what you are doing and go to a cool dark place and rest. It is important that you get rest, you do not need to stay awake. Take Zofran as needed for nausea or vomiting. Return for severe headache, abnormal behavior, difficulty doing normal activities, weakness on one side your body, inability to be aroused from sleep, recurrent vomiting that is not resolved with Zofran, or any other new, con cerning, or worsening symptoms. All discharge instructions reviewed with patient and/or family. Voiced understanding. Copy Copies To 1: AVANI ALMAGUER BRITTANY R APRN Apr 01, 2023 14:44
--- NOTE | 2023-04-01 14:56 | Diagnostic Imaging Report ---
INDICATION: Head injury after fall, blurred vision and headache. TECHNIQUE: Multiple contiguous axial images were obtained through the brain without the use of intravenous contrast. Auto Exposure Controls were utilized during the CT exam to meet ALARA standards for radiation dose reduction. COMPARISON: Comparison made to 06/11/2022. FINDINGS: There were no extra-axial fluid collections. No intracranial hemorrhage. No intracranial mass or mass effect. No midline shift. The ventricles are mildly prominent but appear stable compared to the previous study. There is no acute territorial ischemia. There is no calvarial fracture. IMPRESSION: No acute intracranial abnormality. Stable mild ventricular prominence compared to the previous study. Dictated by: Dictated on workstation # [id number]
--- NOTE | 2023-04-01 15:16 | Diagnostic Imaging Report ---
INDICATION: Pain. FINDINGS: Two-view right forearm performed. No fracture, dislocation, or acute articular irregularity. There is soft tissue swelling posterior to the upper third of the dorsal aspect of the forearm. IMPRESSION: No fracture, gas, or foreign body. Soft tissue irregularities posteriorly noted. Dictated by: Dictated on workstation # [id number]
[2023-04-01 15:53] VITALS: BP 116/65
== END 2023-04-01 15:53 | disposition home or self-care (01) ==
LOC: EDUNIT# 13:45 → ER 13:47
DX: S06.0XAA Concussion with loss of consciousness status unknown, initial encounter (principal); E66.9 Obesity, unspecified; Z68.36 Body mass index [BMI] 36.0-36.9, adult; Z79.82 Long term (current) use of aspirin; V58.4XXA Person boarding or alighting a pick-up truck or van injured in noncollision transport accident, initial encounter; W22.09XA Striking against other stationary object, initial encounter
CPT/HCPCS: 70450; 73090; 96374